=== PATIENT | female | born 1970 | race Caucasian/White ===

== ENCOUNTER → 2016-05-11 | Outpatient (CLI) | payer MEDICARE ==
[~2016-05-11] MED LIST: /DULO30CA OR; /FENT25PA TD; /ONDA4TA; /OXYC15TA OR; /PREG100CA PO; ACET500C; ALEVE; ALPR0.5T7 PO; AMBI10TA OR; ARTHROTEC OR; ATIV1TAB2; ATIV1TAB2 OR; BACL10TA2 OR; BACL10TA2 PO; CLIN1CAP5 PO; COLA100C PO; CYMB60CA3 PO; DARV100T; ESTR2TAB; ESTR2TAB OR; ESTR2TAB4 PO; FENT12PA TOP; IBUP400T OR; IBUP600T; INDE1CAP5 PO; INDO50CA2; KLON1TAB PO; LIDO5DIS EX; LYRI75CA; MINI1CAP PO; NAPR500T81 OR; NEUR400C OR; NYQUIL PO; OPAN10TA16 PO; OPAN5TAB3 PO; OXYC30TA84 PO; OXYC60TA8 PO; OXYCODONE IR PO; PERC5TAB8; PERC5TAB8 OR; PERC5TAB8 PO; PERIACTIN PO; PRED10TA2; PREG50CA PO; PROM25SU5 PO; QUET1TAB8 PO; RANI1TAB6 PO; REME15TA PO; ROBITUSSIN PO; SENO8.6T5 OR; SOMA350T OR; SUDA30TA OR; TESS100C PO; TIZA4TAB; TOPI25TA2; TRAM50TA2 OR; TRAZ1TAB25 PO; TRAZADONE PO; VIST50CA PO; VOLT1GEL2 TD; ZANA4CAP PO; ZOFR8TAB PO; ZOLO100T OR; [UNRECOGNIZED DRUG - CODE] PO; pennsaid TOP
[2016-05-11 14:53] LABS: MEAN CORPUSCULAR HEMOGLOBIN 27.6 pg (27.0-33.0); MEAN CORPUSCULAR VOLUME 86.1 fl (80.0-96.0); RED CELL DISTRIBUTION WIDTH 13.8 % (11.5-14.5)
[2016-05-11 14:55] LABS: CONTROL LINE UCG INT CTR LINE PRESENT
[2016-05-11 15:31] LABS: ALBUMIN 3.5 GM/DL (3.2-5.2); ALBUMIN/GLOBULIN RATIO 0.78 (1.00-1.93); ALKALINE PHOSPHATASE 122 U/L (45-117); ALT/SGPT 25 U/L (12-78); ANION GAP 6 MEQ/L (8-16); AST/SGOT 19 U/L (15-37); BILIRUBIN,TOTAL 0.3 MG/DL (0.2-1.0); BLOOD UREA NITROGEN 11 MG/DL (7-18); CALCIUM LEVEL 9.5 MG/DL (8.5-10.1); CARBON DIOXIDE LEVEL 30 MEQ/L (21-32); CHLORIDE LEVEL 104 MEQ/L (98-107); CREATININE FOR GFR 0.72 MG/DL (0.55-1.02); GLOMERULAR FILTRATION RATE > 60.0 (>58); GLUCOSE, FASTING 107 MG/DL (70-105); POTASSIUM SERUM 4.2 MEQ/L (3.5-5.1); SODIUM LEVEL 140 MEQ/L (136-145)
[2016-05-12 14:26] LABS: HIV SCRN NEGATIVE (NEGATIVE); HIV SCRN1 NEGATIVE (NEGATIVE)
[2016-05-12 14:27] LABS: CONTROL LINE INT CTR LINE PRESENT
== END ==
LOC: M LAB 13:52
PROVIDERS: ATTEND Family Medicine
DX: F11.20 Opioid dependence, uncomplicated (principal)

== ENCOUNTER → 2016-05-15 | Outpatient (CLI) | payer OTHER, MEDICARE ==
--- NOTE | 2016-05-15 15:15 | REP ---
RIGHT FOREARM: AP and lateral views of the right forearm are performed. There appears to be an old healed fracture of the distal end of the radius. No acute fracture or dislocation is seen. I see no intrinsic osseous pathology. IMPRESSION: Old healed fracture distal radius. Signed by Josué Ramirez MD 05/15/2016 05:03 P
--- NOTE | 2016-05-15 15:17 | REP ---
RIGHT WRIST: Four views of the right wrist are performed. Mild deformity of the distal end of the radius is most consistent with an old healed fracture. There is irregularity at the articulating surface of the distal radius. I see no evidence of acute fracture or dislocation. IMPRESSION: Old healed fracture distal radius. No acute abnormality. Signed by Josué Ramirez MD 05/15/2016 05:03 P
--- NOTE | 2016-05-15 15:18 | REP ---
RIGHT HAND SERIES, FOUR VIEWS: There is no evidence of an acute fracture, dislocation or intrinsic bone disease. IMPRESSION: No fracture or dislocation. Signed by Josué Ramirez MD 05/15/2016 05:03 P
== END ==
LOC: M RAD 13:34
DX: M25.631 Stiffness of right wrist, not elsewhere classified (principal); M25.649 Stiffness of unspecified hand, not elsewhere classified; M06.9 Rheumatoid arthritis, unspecified

== ENCOUNTER → 2016-05-15 | Outpatient (CLI) | payer MEDICARE, OTHER ==
--- NOTE | 2016-05-15 12:00 | ECGEPIP ---
Stationary ECG Study [facility] Test Date: 2016-05-15 Pat Name: MYLES BLACKWELL Department: Room: - Gender: F Lmsw: : 1970 Requested By: Josué Coates Order Number: [id number] Reading MD: Sloane Johnson Measurements Intervals [place] Rate: 84 P: 51 VT: 98 QRS: 77 QRSD: 90 T: 38 QT: 356 QTc: 421 Interpretive Statements SINUS RHYTHM WITH SHORT VT INTERVAL T WAVE ABN IMPROVED MARKEDLY MILD SEPTAL T ABN PERSISTS C/W 07/28/13 Electronically Signed On 05-15-2016 11:59:50 EST by Sloane Johnson
== END ==
LOC: M EKG 10:56
PROVIDERS: ATTEND Family Medicine
DX: Z13.9 Encounter for screening, unspecified (principal); F11.20 Opioid dependence, uncomplicated

== ENCOUNTER 2017-03-04 23:31 | Emergency (ER) | payer MEDICARE | END 2017-03-05 01:56 | disposition home or self-care (01) | LOC: M ED 23:31 | DX: F43.20 Adjustment disorder, unspecified (principal); F11.10 Opioid abuse, uncomplicated; F41.9 Anxiety disorder, unspecified; F33.9 Major depressive disorder, recurrent, unspecified; G89.29 Other chronic pain; M54.9 Dorsalgia, unspecified; F17.210 Nicotine dependence, cigarettes, uncomplicated; F12.20 Cannabis dependence, uncomplicated | CPT/HCPCS: 99284 ==

== ENCOUNTER 2017-03-26 12:36 | Emergency (ER) | payer MEDICARE ==
[2017-03-26] MEDS ORDERED: ONDANSETRON 4MG/2ML VIAL (J2405) IV (14:15)
[2017-03-26 15:12] LABS: AMPHETAMINES LEVEL URINE NEGATIVE (NEGATIVE); BARBITURATES URINE NEGATIVE (NEGATIVE); BENZODIAZEPINES URINE POSITIVE (NEGATIVE); CANNABINOIDS URINE POSITIVE (NEGATIVE); COCAINE METABOLITE URINE NEGATIVE (NEGATIVE); METHADONE URINE NEGATIVE (NEGATIVE); OPIATES URINE POSITIVE (NEGATIVE); PHENCYCLIDINE URINE NEGATIVE (NEGATIVE)
[2017-03-26] MEDS: NS 500 ML IV ×2 (15:34→17:25)
[2017-03-26] MEDS: PROMETHAZINE INJ 25 MG/ML VIAL (J2550) IV (15:35)
[2017-03-26] MEDS: cloNIDine 0.1 MG TAB PO (15:35)
[2017-03-26 15:47] LABS: BASO # 0.1 10^3/uL (0.0-0.2); BASO % 0.4 % (0.0-1.0); EOS # 0.1 10^3/uL (0.0-0.50); EOS % 1.2 % (0.0-3.0); HEMATOCRIT 38.6 % (36.0-47.0); HEMOGLOBIN 12.4 g/dl (12.0-16.0); IMMATURE GRANULOCYTE # 0.1 10^3/uL (0-0); IMMATURE GRANULOCYTE % 0.5 % (0-0); LYMPH # 2.1 10^3/uL (1.5-4.5); LYMPH % 17.2 % (24.0-44.0); MEAN CORPUSCULAR HEMOGLOBIN 26.1 pg (27.0-33.0); MEAN CORPUSCULAR HGB CONC 32.1 g/dl (32.0-36.5); MEAN CORPUSCULAR VOLUME 81.3 fl (80.0-96.0); MONO # 0.9 10^3/uL (0.0-0.8); MONO % 7.5 % (0.0-5.0); NEUTROPHILS # 8.8 10^3/uL (1.8-7.7); NEUTROPHILS % 73.2 % (36.0-66.0); PLATELET COUNT, AUTOMATED 503 10^3/uL (150-450); RED BLOOD COUNT 4.75 10^6/uL (4.00-5.40); RED CELL DISTRIBUTION WIDTH 15.7 % (11.5-14.5)
[2017-03-26 16:06] LABS: CONTROL LINE HCG INT CTR LINE PRESENT; HCG, SERUM QUALITATIVE NEGATIVE (NEGATIVE)
[2017-03-26 16:10] LABS: ACETAMINOPHEN LEVEL < 2.0 UG/ML (10.0-30.0); ALBUMIN 2.9 GM/DL (3.2-5.2); ALBUMIN/GLOBULIN RATIO 0.62 (1.00-1.93); ALT/SGPT 63 U/L (12-78); ANION GAP 8 MEQ/L (8-16); AST/SGOT 48 U/L (7-37); BILIRUBIN,DIRECT < 0.1 MG/DL (0.0-0.2); BILIRUBIN,TOTAL 0.1 MG/DL (0.2-1.0); BLOOD UREA NITROGEN 9 MG/DL (7-18); CALCIUM LEVEL 8.8 MG/DL (8.5-10.1); CARBON DIOXIDE LEVEL 28 MEQ/L (21-32); CHLORIDE LEVEL 107 MEQ/L (98-107); CREATININE FOR GFR 0.75 MG/DL (0.55-1.02); ETHYL ALCOHOL (ETHANOL) 0.005 % (0.000-0.010); GLOMERULAR FILTRATION RATE > 60.0 (>58); GLUCOSE, FASTING 97 MG/DL (70-105); LIPASE 220 U/L (73-393); POTASSIUM SERUM 4.3 MEQ/L (3.5-5.1); SALICYLATE LEVEL 2.3 MG/DL (5.0-30.0); SODIUM LEVEL 143 MEQ/L (136-145); TOTAL PROTEIN 7.6 GM/DL (6.4-8.2); TROPONIN I < 0.02 NG/ML (< 0.10)
[2017-03-26 16:16] LABS: ALKALINE PHOSPHATASE 131 U/L (45-117); CPK CREATINE PHOSPHOKINASE 45 U/L (26-192); MB/CK RELATIVE INDEX 2.22 (< OR =4); THYROID STIMULATING HORMONE 0.353 uIU/ML (0.358-3.740)
[2017-03-26] MEDS: LORazepam 2 MG/ML VIAL (J2060) IV (17:25)
== END 2017-03-26 21:05 | disposition home or self-care (01) ==
LOC: M ED 12:36
DX: F11.23 Opioid dependence with withdrawal (principal); F41.9 Anxiety disorder, unspecified; F33.9 Major depressive disorder, recurrent, unspecified; F43.10 Post-traumatic stress disorder, unspecified; M79.7 Fibromyalgia; M06.9 Rheumatoid arthritis, unspecified; M51.9 Unspecified thoracic, thoracolumbar and lumbosacral intervertebral disc disorder; M48.00 Spinal stenosis, site unspecified; Z79.899 Other long term (current) drug therapy; Z88.0 Allergy status to penicillin; Z88.2 Allergy status to sulfonamides; Z88.5 Allergy status to narcotic agent; Z88.8 Allergy status to other drugs, medicaments and biological substances

== ENCOUNTER 2017-03-29 12:38 | Inpatient (IN) | payer MEDICARE, MEDICAID ==
[2017-03-29] MEDS: cloNIDine 0.1 MG TAB PO ×2 (13:30→13:36)
[2017-03-29 14:03] LABS: HEMOGLOBIN 13.2 g/dl (12.0-16.0); MEAN CORPUSCULAR HEMOGLOBIN 26.1 pg (27.0-33.0); MEAN CORPUSCULAR HGB CONC 32.2 g/dl (32.0-36.5); PLATELET COUNT, AUTOMATED 469 10^3/uL (150-450); RED BLOOD COUNT 5.06 10^6/uL (4.00-5.40); RED CELL DISTRIBUTION WIDTH 16.4 % (11.5-14.5)
[2017-03-29 14:30] LABS: AMPHETAMINES LEVEL URINE NEGATIVE (NEGATIVE); BARBITURATES URINE NEGATIVE (NEGATIVE); BENZODIAZEPINES URINE NEGATIVE (NEGATIVE); CANNABINOIDS URINE POSITIVE (NEGATIVE); COCAINE METABOLITE URINE NEGATIVE (NEGATIVE); METHADONE URINE NEGATIVE (NEGATIVE); OPIATES URINE POSITIVE (NEGATIVE); PHENCYCLIDINE URINE NEGATIVE (NEGATIVE)
[2017-03-29] MEDS: ONDANSETRON 4 MG ORAL DISINTEGRATING TAB (S0181) PO (14:31)
[2017-03-29 14:41] LABS: ACETAMINOPHEN LEVEL < 2.0 UG/ML (10.0-30.0); ALBUMIN 3.4 GM/DL (3.2-5.2); ALBUMIN/GLOBULIN RATIO 0.68 (1.00-1.93); ALKALINE PHOSPHATASE 127 U/L (45-117); ALT/SGPT 56 U/L (12-78); ANION GAP 4 MEQ/L (8-16); AST/SGOT 34 U/L (7-37); BILIRUBIN,DIRECT < 0.1 MG/DL (0.0-0.2); BILIRUBIN,TOTAL 0.2 MG/DL (0.2-1.0); BLOOD UREA NITROGEN 9 MG/DL (7-18); CALCIUM LEVEL 9.3 MG/DL (8.5-10.1); CARBON DIOXIDE LEVEL 30 MEQ/L (21-32); CHLORIDE LEVEL 108 MEQ/L (98-107); CREATININE FOR GFR 0.76 MG/DL (0.55-1.02); ETHYL ALCOHOL (ETHANOL) < 0.003 % (0.000-0.010); GLOMERULAR FILTRATION RATE > 60.0 (>58); GLUCOSE, FASTING 89 MG/DL (70-100); POTASSIUM SERUM 4.3 MEQ/L (3.5-5.1); SALICYLATE LEVEL 2.3 MG/DL (5.0-30.0); SODIUM LEVEL 142 MEQ/L (136-145); TOTAL PROTEIN 8.4 GM/DL (6.4-8.2)
[2017-03-29] MEDS ORDERED: MOM 30ML SUSPENSION UDC PO (16:00)
[2017-03-29] MEDS: traZODone 50 MG TAB PO (21:42)
[2017-03-30] MEDS: MAALOX 30 ML SUSP *UDC PO (07:30)
[2017-03-30] MEDS: hydrOXYzine 50 MG TAB PO ×2 (12:57→20:02)
[2017-03-30] MEDS: ARIPiprazole 10 MG TAB PO ×3 (12:59→20:03)
[2017-03-30] MEDS: GABAPENTIN 300 MG CAP PO ×2 (13:15→20:02)
[2017-03-30] MEDS: OMEPRAZOLE 20 MG CAP PO (13:15)
[2017-03-30] MEDS: LORATADINE 10 MG TAB PO (13:15)
[2017-03-30] MEDS: cloNIDine 0.1 MG TAB PO (13:19)
[2017-03-30] MEDS: SUCRALFATE 1 GM TAB PO ×2 (16:49→20:02)
[2017-03-30] MEDS: ACETAMINOPHEN TAB 650MG DOSE (2X325MG) PO (16:49)
[2017-03-30] MEDS: traZODone 50 MG TAB PO (20:03)
[2017-03-30] MEDS: QUEtiapine FUMARATE 100 MG TAB PO (20:03)
[2017-03-30 22:14] LABS: CONTROL LINE HCG INT CTR LINE PRESENT; HCG, SERUM QUALITATIVE NEGATIVE (NEGATIVE)
[2017-03-31] MEDS: ACETAMINOPHEN TAB 650MG DOSE (2X325MG) PO ×3 (06:52→22:04)
[2017-03-31] MEDS: hydrOXYzine 50 MG TAB PO ×2 (06:52→15:57)
[2017-03-31] MEDS: ARIPiprazole 10 MG TAB PO ×2 (08:13→20:13)
[2017-03-31] MEDS: SUCRALFATE 1 GM TAB PO ×4 (08:13→20:14)
[2017-03-31] MEDS: GABAPENTIN 300 MG CAP PO ×2 (08:14→20:14)
[2017-03-31] MEDS: LORATADINE 10 MG TAB PO (08:14)
[2017-03-31] MEDS: OMEPRAZOLE 20 MG CAP PO (08:14)
[2017-03-31 10:34] LABS: HEMATOCRIT 42.7 % (36.0-47.0); HEMOGLOBIN 13.7 g/dl (12.0-16.0); MEAN CORPUSCULAR HEMOGLOBIN 25.8 pg (27.0-33.0); MEAN CORPUSCULAR HGB CONC 32.1 g/dl (32.0-36.5); MEAN CORPUSCULAR VOLUME 80.6 fl (80.0-96.0); PLATELET COUNT, AUTOMATED 468 10^3/uL (150-450); RED CELL DISTRIBUTION WIDTH 16.2 % (11.5-14.5); WHITE BLOOD COUNT 12.4 10^3/uL (4.0-10.0)
[2017-03-31] MEDS: NICOTINE 21MG/24HR 1 EA TRANSDERMAL TD (11:51)
[2017-03-31 12:12] LABS: VITAMIN B12 LEVEL 410 PG/ML (247-911)
[2017-03-31 12:13] LABS: FOLATE 15.3 NG/ML (>5.4)
[2017-03-31 12:15] LABS: HEPATITIS B SURFACE ANTIBODY NEGATIVE (POSITIVE)
[2017-03-31 12:39] LABS: HIV 1&2 SCREEN CENTAUR NEGATIVE (NEGATIVE)
[2017-03-31] MEDS: cloNIDine 0.1 MG TAB PO (13:40)
[2017-03-31 14:07] LABS: HEPATITIS C VIRUS ABY INDEX 8.2 INDEX (<0.8)
[2017-03-31 14:56] LABS: HEPATITIS B SURFACE ANTIGEN NEGATIVE (NEGATIVE)
[2017-03-31] MEDS: traZODone 50 MG TAB PO (20:13)
[2017-03-31] MEDS: QUEtiapine FUMARATE 50 MG TAB PO (20:14)
[2017-03-31] MEDS: hydrOXYzine 25 MG TAB PO (22:04)
[2017-04-01] MEDS: ACETAMINOPHEN TAB 650MG DOSE (2X325MG) PO ×3 (04:15→18:02)
[2017-04-01] MEDS: hydrOXYzine 25 MG TAB PO ×3 (04:16→18:02)
[2017-04-01] MEDS: SUCRALFATE 1 GM TAB PO ×4 (08:15→20:39)
[2017-04-01] MEDS: LORATADINE 10 MG TAB PO (08:15)
[2017-04-01] MEDS: QUEtiapine FUMARATE 50 MG TAB PO ×2 (08:16→20:42)
[2017-04-01] MEDS: GABAPENTIN 300 MG CAP PO ×2 (08:16→20:42)
[2017-04-01] MEDS: ARIPiprazole 10 MG TAB PO (08:16)
[2017-04-01] MEDS: OMEPRAZOLE 20 MG CAP PO (08:16)
[2017-04-01] MEDS: NICOTINE 21MG/24HR 1 EA TRANSDERMAL TD (08:19)
[2017-04-01] MEDS: cloNIDine 0.1 MG TAB PO (11:27)
[2017-04-01] MEDS: NALTREXONE 50 MG TAB PO (12:45)
[2017-04-01] MEDS: VITAMIN D 50,000 UNITS CAPSULE (ERGOCALCIFEROL 1.25MG) PO (18:02)
[2017-04-02] MEDS: hydrOXYzine 25 MG TAB PO (04:36)
[2017-04-02] MEDS: ACETAMINOPHEN TAB 650MG DOSE (2X325MG) PO (04:37)
[2017-04-02] MEDS: SUCRALFATE 1 GM TAB PO ×2 (06:18→07:46)
[2017-04-02] MEDS: QUEtiapine FUMARATE 50 MG TAB PO (07:10)
[2017-04-02] MEDS: OMEPRAZOLE 20 MG CAP PO (07:46)
[2017-04-02] MEDS: LORATADINE 10 MG TAB PO (07:46)
[2017-04-02] MEDS: NALTREXONE 50 MG TAB PO (07:46)
[2017-04-02] MEDS: GABAPENTIN 300 MG CAP PO (07:46)
[2017-04-02] MEDS: NICOTINE 21MG/24HR 1 EA TRANSDERMAL TD (07:49)
[2017-04-02] MEDS: cloNIDine 0.1 MG TAB PO (08:12)
[2017-04-03 00:10] LABS: HCV RNA NAA QUALITATIVE Positive (Negative)
[2017-04-04 08:06] LABS: ALPHA 2-MACROGLOBULIN 222 mg/dL (110-276); ALT 38 IU/L (0-40); APOLIPOPROTEIN A-1 160 mg/dL (116-209); FIBROSIS SCORE 0.08 (0.00-0.21); GGT 40 IU/L (0-60); HAPTOGLOBIN 211 mg/dL (34-200); HEPATITIS B CORE ANTIBODY IGG Negative (Negative); HEPATITIS C QUANTITATION 19240 IU/mL (.); HEPATITIS C VIRUS GENOTYPE 3 (.); NECROINFLAM SCORE 0.15 (0.00-0.17); NECROINFLAMM GRADE A0-No activity (.); TOTAL BILIRUBIN 0.2 mg/dL (0.0-1.2)
== END 2017-04-02 08:20 | DRG 885 ==
LOC: M ED 12:38 → M ED INP 15:51 → M PSY 16:55
DX: F33.2 Major depressive disorder, recurrent severe without psychotic features (principal); R45.851 Suicidal ideations; Z91.5 Personal history of self-harm; Z91.14 Patient's other noncompliance with medication regimen; F43.10 Post-traumatic stress disorder, unspecified; F60.3 Borderline personality disorder; F19.10 Other psychoactive substance abuse, uncomplicated; Z90.49 Acquired absence of other specified parts of digestive tract; Z90.710 Acquired absence of both cervix and uterus; F17.210 Nicotine dependence, cigarettes, uncomplicated; Z98.1 Arthrodesis status; R94.31 Abnormal electrocardiogram [ECG] [EKG]; M54.5 Low back pain; B19.20 Unspecified viral hepatitis C without hepatic coma; M25.511 Pain in right shoulder; M25.571 Pain in right ankle and joints of right foot; R20.2 Paresthesia of skin; Z88.0 Allergy status to penicillin; Z88.2 Allergy status to sulfonamides; Z88.5 Allergy status to narcotic agent; Z88.8 Allergy status to other drugs, medicaments and biological substances; Z79.899 Other long term (current) drug therapy

== ENCOUNTER 2017-04-28 09:23 | Emergency (ER) | payer MEDICARE, MEDICAID ==
[2017-04-28] MEDS: hydrOXYzine 25 MG TAB PO (12:37)
[2017-04-28 12:42] LABS: HEMATOCRIT 38.4 % (36.0-47.0); HEMOGLOBIN 12.5 g/dl (12.0-16.0); MEAN CORPUSCULAR HEMOGLOBIN 26.4 pg (27.0-33.0); MEAN CORPUSCULAR HGB CONC 32.6 g/dl (32.0-36.5); MEAN CORPUSCULAR VOLUME 81.2 fl (80.0-96.0); PLATELET COUNT, AUTOMATED 399 10^3/uL (150-450); RED BLOOD COUNT 4.73 10^6/uL (4.00-5.40); WHITE BLOOD COUNT 8.7 10^3/uL (4.0-10.0)
[2017-04-28 13:11] LABS: AMPHETAMINES LEVEL URINE NEGATIVE (NEGATIVE); BARBITURATES URINE NEGATIVE (NEGATIVE); BENZODIAZEPINES URINE NEGATIVE (NEGATIVE); CANNABINOIDS URINE NEGATIVE (NEGATIVE); COCAINE METABOLITE URINE NEGATIVE (NEGATIVE); METHADONE URINE NEGATIVE (NEGATIVE); OPIATES URINE NEGATIVE (NEGATIVE); PHENCYCLIDINE URINE NEGATIVE (NEGATIVE)
[2017-04-28 13:16] LABS: ALBUMIN/GLOBULIN RATIO 0.63 (1.00-1.93); ALKALINE PHOSPHATASE 145 U/L (45-117); ALT/SGPT 33 U/L (12-78); ANION GAP 7 MEQ/L (8-16); AST/SGOT 21 U/L (7-37); BILIRUBIN,DIRECT < 0.1 MG/DL (0.0-0.2); BILIRUBIN,TOTAL 0.2 MG/DL (0.2-1.0); BLOOD UREA NITROGEN 10 MG/DL (7-18); CALCIUM LEVEL 8.7 MG/DL (8.5-10.1); CARBON DIOXIDE LEVEL 28 MEQ/L (21-32); CHLORIDE LEVEL 105 MEQ/L (98-107); CREATININE FOR GFR 0.68 MG/DL (0.55-1.30); ETHYL ALCOHOL (ETHANOL) < 0.003 % (0.000-0.010); GLOMERULAR FILTRATION RATE > 60.0 (>58); GLUCOSE, FASTING 89 MG/DL (70-100); SALICYLATE LEVEL < 1.7 MG/DL (5.0-30.0); SODIUM LEVEL 140 MEQ/L (136-145); THYROID STIMULATING HORMONE 0.717 uIU/ML (0.358-3.740); TOTAL PROTEIN 7.8 GM/DL (6.4-8.2)
[2017-04-28 13:17] LABS: ACETAMINOPHEN LEVEL < 2.0 UG/ML (10.0-30.0)
== END 2017-04-28 13:41 | disposition home or self-care (01) ==
LOC: M ED 09:23
DX: F41.9 Anxiety disorder, unspecified (principal); F10.10 Alcohol abuse, uncomplicated; Z79.899 Other long term (current) drug therapy; Z88.0 Allergy status to penicillin; Z88.2 Allergy status to sulfonamides; Z88.5 Allergy status to narcotic agent; Z88.8 Allergy status to other drugs, medicaments and biological substances; F17.210 Nicotine dependence, cigarettes, uncomplicated
CPT/HCPCS: G0480

== ENCOUNTER → 2017-07-27 | Outpatient (CLI) | payer MEDICARE, MEDICAID ==
[2017-07-27 16:53] LABS: HEMATOCRIT 35.8 % (36.0-47.0); HEMOGLOBIN 11.7 g/dl (12.0-15.5); MEAN CORPUSCULAR HEMOGLOBIN 27.5 pg (27.0-33.0); MEAN CORPUSCULAR HGB CONC 32.7 g/dl (32.0-36.5); PLATELET COUNT, AUTOMATED 391 10^3/uL (150-450); RED BLOOD COUNT 4.26 10^6/uL (4.00-5.40); RED CELL DISTRIBUTION WIDTH 15.9 % (11.5-14.5); WHITE BLOOD COUNT 13.9 10^3/uL (4.0-10.0)
[2017-07-27 16:54] LABS: ALBUMIN 3.3 GM/DL (3.2-5.2); ALBUMIN/GLOBULIN RATIO 0.69 (1.00-1.93); ALKALINE PHOSPHATASE 184 U/L (45-117); ALT/SGPT 142 U/L (12-78); ANION GAP 7 MEQ/L (8-16); AST/SGOT 102 U/L (7-37); BILIRUBIN,TOTAL 0.3 MG/DL (0.2-1.0); BLOOD UREA NITROGEN 9 MG/DL (7-18); CALCIUM LEVEL 8.9 MG/DL (8.5-10.1); CARBON DIOXIDE LEVEL 28 MEQ/L (21-32); CHLORIDE LEVEL 103 MEQ/L (98-107); CREATININE FOR GFR 0.85 MG/DL (0.55-1.30); GLOMERULAR FILTRATION RATE > 60.0 (>58); GLUCOSE, FASTING 165 MG/DL (70-100); POTASSIUM SERUM 3.8 MEQ/L (3.5-5.1); SODIUM LEVEL 138 MEQ/L (136-145); TOTAL PROTEIN 8.1 GM/DL (6.4-8.2)
[2017-07-27 17:53] LABS: CHLAMYDIA DNA AMPLIFICATION NEGATIVE (NEGATIVE); GC DNA AMPLIFICATION NEGATIVE (NEGATIVE)
[2017-07-28 09:47] LABS: HEPATITIS B SURFACE ANTIGEN NEGATIVE (NEGATIVE)
[2017-07-28 10:11] LABS: HIV 1&2 SCREEN CENTAUR NEGATIVE (NEGATIVE)
[2017-07-28 10:26] LABS: HEPATITIS C VIRUS ABY INDEX 8.9 INDEX (<0.8)
[2017-07-31 15:09] LABS: HCV RNA NAA QUALITATIVE Positive (Negative)
== END ==
LOC: M LAB 15:46
DX: F11.20 Opioid dependence, uncomplicated (principal); R94.31 Abnormal electrocardiogram [ECG] [EKG]; Z79.899 Other long term (current) drug therapy
CPT/HCPCS: 93005

== ENCOUNTER 2018-03-31 13:17 | Emergency (ER) | payer MEDICAID ==
[~2018-03-31] VITALS: Ht 144.8 cm; Wt 40.9 kg
[~2018-03-31 13:17] MED LIST changes: +ABIL30TA4 PO; +ARIP15TAB PO; +ATIV1TAB7 PO; +CLAR10CA3 PO; +CLIN150C14 PO; -CLIN1CAP5 PO; +CLONI1TA PO; -COLA100C PO; +COLA100C5 PO; +DICL1GEL3 TD; +ESTRADIOL PO; +FLUTISP; +HYDR-3363 PO; -INDE1CAP5 PO; +INDE60CA4 PO; +METH10CO PO; +METH10TA2 PO; +MIRT1TAB PO; +NALT50TA4 PO; +NEUR300C PO; +NICO21PAT TD; +PRED10TA2 PO; +PRIL20CA9 PO; +PROM50TA4 PO; +QUET5TAB PO; +SUCR1TA PO; +TRAZODONE PO; +VENL75TA2 PO; +ZANT300T9 PO
[2018-03-31] MEDS ORDERED: PRED20TA PO (15:51)
[2018-03-31 15:59] VITALS: BP 107/61
== END 2018-03-31 16:00 | disposition home or self-care (01) ==
LOC: M ED 13:17
DX: M02.361 Reiter's disease, right knee (principal); R56.9 Unspecified convulsions; F33.9 Major depressive disorder, recurrent, unspecified; F41.9 Anxiety disorder, unspecified; M81.8 Other osteoporosis without current pathological fracture; Z79.899 Other long term (current) drug therapy; Z79.891 Long term (current) use of opiate analgesic; Z88.0 Allergy status to penicillin; Z88.2 Allergy status to sulfonamides; Z88.5 Allergy status to narcotic agent; Z88.8 Allergy status to other drugs, medicaments and biological substances; F17.210 Nicotine dependence, cigarettes, uncomplicated

== ENCOUNTER 2018-05-18 11:26 | Emergency (ER) | payer MEDICAID ==
[~2018-05-18] VITALS: Ht 144.8 cm; Wt 44.1 kg
[~2018-05-18 11:26] MED LIST changes: +PRED20TA PO
[2018-05-18 11:27] VITALS: BP 121/87
[2018-05-18] MEDS ORDERED: ESTR1TAB PO (11:44)
== END 2018-05-18 13:00 | disposition left against medical advice (07) ==
LOC: M ED 11:26
DX: Z53.21 Procedure and treatment not carried out due to patient leaving prior to being seen by health care provider (principal)

== ENCOUNTER 2018-05-23 08:02 | Inpatient (IN) | payer MEDICAID ==
[~2018-05-23] VITALS: Ht 147.3 cm; Wt 45.0 kg
[~2018-05-23 08:02] MED LIST changes: +ESTR1TAB PO
--- NOTE | 2018-05-23 08:59 | REP ---
RIGHT ANKLE, FOUR VIEWS: Four views of the right ankle are performed. No acute fracture or dislocation is seen. There is lateral soft tissue swelling. There is a joint effusion present. IMPRESSION: No acute fracture or dislocation. Joint effusion. Electronically Signed by Josué Ramirez MD 05/25/2018 09:50 A
[2018-05-23] MEDS ORDERED: METHADONE 10 MG TAB (S0109) PO ONE (09:15)
[2018-05-23 09:52] LABS: BASO # 0.1 10^3/uL (0.0-0.2); BASO % 0.4 % (0.0-1.0); EOS # 0.3 10^3/uL (0.0-0.50); HEMATOCRIT 42.9 % (36.0-47.0); HEMOGLOBIN 13.8 g/dl (12.0-15.5); LYMPH # 2.5 10^3/uL (1.5-4.5); LYMPH % 20.1 % (24.0-44.0); MEAN CORPUSCULAR HEMOGLOBIN 26.3 pg (27.0-33.0); MEAN CORPUSCULAR HGB CONC 32.2 g/dl (32.0-36.5); MEAN CORPUSCULAR VOLUME 81.9 fl (80.0-96.0); MONO # 1.3 10^3/uL (0.0-0.8); MONO % 10.5 % (0.0-5.0); NEUTROPHILS # 8.2 10^3/uL (1.8-7.7); NEUTROPHILS % 66.8 % (36.0-66.0); PLATELET COUNT, AUTOMATED 536 10^3/uL (150-450); RED BLOOD COUNT 5.24 10^6/uL (4.00-5.40); WHITE BLOOD COUNT 12.3 10^3/uL (4.0-10.0)
[2018-05-23] MEDS ORDERED: KETOROLAC 30 MG/ML VIAL (J1885) IV ONE (10:30)
[2018-05-23 10:36] LABS: ACETAMINOPHEN LEVEL < 2.0 UG/ML (10.0-30.0); ALBUMIN 2.6 GM/DL (3.2-5.2); ALT/SGPT 31 U/L (12-78); BILIRUBIN,DIRECT < 0.1 MG/DL (0.0-0.2); BILIRUBIN,TOTAL 0.5 MG/DL (0.2-1.0); BLOOD UREA NITROGEN 5 MG/DL (7-18); CARBON DIOXIDE LEVEL 28 MEQ/L (21-32); CHLORIDE LEVEL 101 MEQ/L (98-107); CREATININE FOR GFR 0.63 MG/DL (0.55-1.30); ETHYL ALCOHOL (ETHANOL) < 0.003 % (0.000-0.010); GLOMERULAR FILTRATION RATE > 60.0 (>58); GLUCOSE, FASTING 89 MG/DL (70-100); POTASSIUM SERUM 4.9 MEQ/L (3.5-5.1); SALICYLATE LEVEL 2.2 MG/DL (5.0-30.0); SODIUM LEVEL 136 MEQ/L (136-145); THYROID STIMULATING HORMONE 0.176 uIU/ML (0.358-3.740); TOTAL PROTEIN 7.5 GM/DL (6.4-8.2)
[2018-05-23] MEDS ORDERED: DOXYCYCLINE HYCLATE 100 MG TAB PO ONE (11:00)
[2018-05-23 12:18] LABS: AMPHETAMINES LEVEL URINE NEGATIVE (NEGATIVE); BARBITURATES URINE NEGATIVE (NEGATIVE); BENZODIAZEPINES URINE NEGATIVE (NEGATIVE); CANNABINOIDS URINE POSITIVE (NEGATIVE); COCAINE METABOLITE URINE NEGATIVE (NEGATIVE); METHADONE URINE POSITIVE (NEGATIVE); OPIATES URINE NEGATIVE (NEGATIVE); PHENCYCLIDINE URINE NEGATIVE (NEGATIVE)
[2018-05-23] MEDS ORDERED: MOM 30ML SUSPENSION UDC PO PRN (15:15)
[2018-05-23] MEDS ORDERED: traZODone 50 MG TAB PO PRN (15:15)
[2018-05-23] MEDS ORDERED: ACETAMINOPHEN TAB 650MG DOSE (2X325MG) PO PRN (15:15)
[2018-05-23] MEDS ORDERED: MAALOX 30 ML SUSP *UDC PO PRN (15:15)
[2018-05-23] MEDS ORDERED: MIRT30TA3 PO (15:20)
[2018-05-23] MEDS ORDERED: ALEV220T26 PO (15:22)
[2018-05-23 17:02] VITALS: BP 159/95
[2018-05-23] MEDS: MIRTAZAPINE 15 MG TAB PO SCH (21:00)
[2018-05-23] MEDS: ESTRADIOL 1 MG TAB PO SCH (21:00)
[2018-05-23] MEDS: OMEPRAZOLE 20 MG CAP PO SCH (21:00)
[2018-05-24 06:54] VITALS: BP 140/87
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
[2018-05-24] MEDS: OMEPRAZOLE 20 MG CAP PO SCH ×2 (09:27→22:07)
[2018-05-24 09:42] LABS: HEMATOCRIT 43.8 % (36.0-47.0); HEMOGLOBIN 14.2 g/dl (12.0-15.5); MEAN CORPUSCULAR HEMOGLOBIN 26.8 pg (27.0-33.0); MEAN CORPUSCULAR HGB CONC 32.4 g/dl (32.0-36.5); MEAN CORPUSCULAR VOLUME 82.6 fl (80.0-96.0); PLATELET COUNT, AUTOMATED 530 10^3/uL (150-450); WHITE BLOOD COUNT 9.2 10^3/uL (4.0-10.0)
[2018-05-24] MEDS: DOXYCYCLINE HYCLATE 100 MG TAB PO SCH ×2 (10:00→22:07)
[2018-05-24 10:14] LABS: ALBUMIN 2.4 GM/DL (3.2-5.2); ALT/SGPT 21 U/L (12-78); BILIRUBIN,TOTAL 0.3 MG/DL (0.2-1.0); BLOOD UREA NITROGEN 6 MG/DL (7-18); CALCIUM LEVEL 8.6 MG/DL (8.5-10.1); CARBON DIOXIDE LEVEL 28 MEQ/L (21-32); CHLORIDE LEVEL 103 MEQ/L (98-107); CREATININE FOR GFR 0.65 MG/DL (0.55-1.30); GLOMERULAR FILTRATION RATE > 60.0 (>58); GLUCOSE, FASTING 153 MG/DL (70-100); SODIUM LEVEL 136 MEQ/L (136-145); TOTAL PROTEIN 6.7 GM/DL (6.4-8.2)
[2018-05-24] MEDS: METHADONE 10 MG TAB (S0109) PO SCH (11:34)
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
[2018-05-24 12:14] VITALS: BP 124/74
--- NOTE | 2018-05-24 16:39 | REP ---
Bilateral upper extremity duplex Doppler venous ultrasound. Real time compression and duplex Doppler evaluation of the bilateral upper extremity deep venous system is performed. The bilateral subclavian, jugular, axillary, brachial, basilic and cephalic veins are fully compressible where accessible with transducer pressure, and demonstrate no intraluminal thrombus and normal venous waveforms. There is no evidence of deep venous thrombosis. Impression: No evidence of deep venous thrombosis of the bilateral upper extremity deep vein system. Electronically Signed by Josué Ramirez MD 05/24/2018 04:31 P
--- NOTE | 2018-05-24 16:57 | REP ---
BILATERAL HAND AND WRIST ULTRASOUND: Bilateral hand and wrist ultrasound performed at the site of injections. The study is performed to evaluate for possible associated abscess. At the multiple injection sites in both hands and wrists, there is no evidence of fluid collection or abscess. IMPRESSION: No evidence of abscess sonographically in the bilateral hands and wrists at the multiple injection sites. Electronically Signed by Josué Ramirez MD 05/25/2018 01:23 P
[2018-05-24 18:22] VITALS: BP 136/85
[2018-05-24] MEDS: ESTRADIOL 1 MG TAB PO SCH (22:07)
[2018-05-24] MEDS: MIRTAZAPINE 15 MG TAB PO SCH (22:07)
[2018-05-25 06:37] VITALS: BP 145/91
[2018-05-25] MEDS: DOXYCYCLINE HYCLATE 100 MG TAB PO SCH ×2 (08:34→22:10)
[2018-05-25] MEDS: OMEPRAZOLE 20 MG CAP PO SCH ×2 (08:34→22:09)
[2018-05-25] MEDS: METHADONE 10 MG TAB (S0109) PO SCH (08:34)
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
[2018-05-25] MEDS: IBUPROFEN 800 MG TAB PO PRN (17:57)
[2018-05-25 18:05] VITALS: BP 133/87
[2018-05-25] MEDS: MIRTAZAPINE 15 MG TAB PO SCH (22:10)
[2018-05-25] MEDS: ESTRADIOL 1 MG TAB PO SCH (22:10)
[2018-05-26 06:12] VITALS: BP 125/85
[2018-05-26] MEDS: OMEPRAZOLE 20 MG CAP PO SCH ×2 (10:00→21:41)
[2018-05-26] MEDS: DOXYCYCLINE HYCLATE 100 MG TAB PO SCH ×2 (10:00→21:40)
[2018-05-26] MEDS: METHADONE 10 MG TAB (S0109) PO SCH (10:01)
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
[2018-05-26] MEDS: IBUPROFEN 800 MG TAB PO PRN (16:01)
[2018-05-26 18:00] VITALS: BP 128/82
[2018-05-26] MEDS: MIRTAZAPINE 15 MG TAB PO SCH (21:40)
[2018-05-26] MEDS: ESTRADIOL 1 MG TAB PO SCH (21:41)
[2018-05-27] MEDS: IBUPROFEN 800 MG TAB PO PRN ×2 (04:26→17:56)
[2018-05-27 06:52] VITALS: BP 117/66
[2018-05-27] MEDS: DOXYCYCLINE HYCLATE 100 MG TAB PO SCH ×2 (09:12→22:30)
[2018-05-27] MEDS: METHADONE 10 MG TAB (S0109) PO SCH (09:12)
[2018-05-27] MEDS: OMEPRAZOLE 20 MG CAP PO SCH ×2 (09:12→22:29)
[2018-05-27] MEDS: NAPROXEN 250 MG TAB PO PRN (09:12)
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
[2018-05-27 18:06] VITALS: BP 108/64
[2018-05-27] MEDS: ESTRADIOL 1 MG TAB PO SCH (22:29)
[2018-05-27] MEDS: MIRTAZAPINE 15 MG TAB PO SCH (22:30)
[2018-05-28 06:17] VITALS: BP 118/60
[2018-05-28] MEDS: METHADONE 10 MG TAB (S0109) PO SCH (08:59)
[2018-05-28] MEDS: OMEPRAZOLE 20 MG CAP PO SCH ×2 (09:00→21:45)
[2018-05-28] MEDS: DOXYCYCLINE HYCLATE 100 MG TAB PO SCH ×2 (09:00→21:45)
[2018-05-28 10:14] LABS: FREE THYROXINE INDEX 2.7 % (1.3-4.8); THYROID STIMULATING HORMONE 0.724 uIU/ML (0.358-3.740); THYROXINE (T4) 8.4 UG/DL (4.5-12.0)
[2018-05-28] MEDS: IBUPROFEN 800 MG TAB PO PRN ×2 (12:05→21:45)
[2018-05-28 18:00] VITALS: BP 111/68
[2018-05-28] MEDS: MIRTAZAPINE 15 MG TAB PO SCH (21:44)
[2018-05-28] MEDS: ESTRADIOL 1 MG TAB PO SCH (21:45)
[2018-05-29 06:35] VITALS: BP 106/64
[2018-05-29] MEDS: OMEPRAZOLE 20 MG CAP PO SCH ×2 (09:15→21:04)
[2018-05-29] MEDS: DOXYCYCLINE HYCLATE 100 MG TAB PO SCH ×2 (09:15→21:04)
[2018-05-29] MEDS: METHADONE 10 MG TAB (S0109) PO SCH (09:15)
[2018-05-29] MEDS: NAPROXEN 250 MG TAB PO PRN (09:57)
[2018-05-29] MEDS: IBUPROFEN 800 MG TAB PO PRN (15:42)
[2018-05-29 18:00] VITALS: BP 111/65
[2018-05-29] MEDS: ESTRADIOL 1 MG TAB PO SCH (21:04)
[2018-05-29] MEDS: MIRTAZAPINE 15 MG TAB PO SCH (21:04)
[2018-05-30 06:00] VITALS: BP 118/80
[2018-05-30] MEDS ORDERED: MIRT15TA3 PO (08:46)
[2018-05-30] MEDS ORDERED: DOXY100T PO (08:46)
[2018-05-30] MEDS ORDERED: EFFE75CA2 PO (08:46)
[2018-05-30] MEDS: OMEPRAZOLE 20 MG CAP PO SCH (09:17)
[2018-05-30] MEDS: DOXYCYCLINE HYCLATE 100 MG TAB PO SCH (09:18)
[2018-05-30] MEDS: METHADONE 10 MG TAB (S0109) PO SCH (09:19)
[2018-05-30] MEDS: NAPROXEN 250 MG TAB PO PRN (09:19)
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
== END 2018-05-30 11:45 | disposition home or self-care (01) | DRG 751 ==
LOC: M ED 08:02 → EDBD 08:02 → M ED INP 15:13 → M PSY 16:53
PROVIDERS: ADMIT Psychiatry & Neurology Psychiatry; ATTEND Psychiatry & Neurology Psychiatry
DX: F33.2 Major depressive disorder, recurrent severe without psychotic features (principal); B18.2 Chronic viral hepatitis C; F19.94 Other psychoactive substance use, unspecified with psychoactive substance-induced mood disorder; F60.3 Borderline personality disorder; F43.10 Post-traumatic stress disorder, unspecified; F11.90 Opioid use, unspecified, uncomplicated; Z88.0 Allergy status to penicillin; Z88.2 Allergy status to sulfonamides; Z88.8 Allergy status to other drugs, medicaments and biological substances; Z79.899 Other long term (current) drug therapy; M79.7 Fibromyalgia; M54.2 Cervicalgia; M54.5 Low back pain; F41.9 Anxiety disorder, unspecified; K21.9 Gastro-esophageal reflux disease without esophagitis; F17.200 Nicotine dependence, unspecified, uncomplicated; D72.829 Elevated white blood cell count, unspecified

== ENCOUNTER 2018-07-05 11:54 | Emergency (ER) | payer MEDICAID ==
[~2018-07-05 11:54] MED LIST changes: -/DULO30CA OR; -/FENT25PA TD; -/ONDA4TA; -/OXYC15TA OR; -/PREG100CA PO; +ALEV220T26 PO; -ARIP15TAB PO; +ARIP1TAB10 PO; +CYMB1CAP5 OR; +DOXY100T PO; +EFFE75CA2 PO; +FENT12DI12 TOP; -FENT12PA TOP; +FENT1DIS14 TD; +LYRI100C PO; +MIRT15TA3 PO; +MIRT30TA3 PO; +ONDA-1; +ONDA-227 PO; +OXYC1TAB32 OR; -ZOFR8TAB PO
[2018-07-05 11:55] VITALS: BP 124/83
== END 2018-07-05 14:06 | disposition left against medical advice (07) ==
LOC: M ED 11:54
DX: Z53.21 Procedure and treatment not carried out due to patient leaving prior to being seen by health care provider (principal)

== ENCOUNTER 2018-07-08 10:42 | Emergency (ER) | payer MEDICAID, SELFPAY ==
[~2018-07-08] VITALS: Ht 147.3 cm; Wt 46.1 kg
[2018-07-08] MEDS ORDERED: NS 1,000 ML IV ONE (11:00)
[2018-07-08 11:13] LABS: ABG BASE EXCESS 6.1 (-2.0-2.0); ABG HCO3 31.1 MEQ/L (22.0-26.0); ABG O2 SATURATION 99.3 % (95.0-99.0); ABG PARTIAL PRESSURE CO2 46.7 mmHg (35.0-45.0); ABG PARTIAL PRESSURE O2 148.1 mmHg (75.0-100.0); ABG TOTAL CO2 32.5 MEQ/L (22.0-29.0); ABG pH (ARTERIAL) 7.441 UNITS (7.350-7.450)
[2018-07-08 11:37] LABS: BASO % 0.3 % (0.0-1.0); EOS # 0.3 10^3/uL (0.0-0.50); EOS % 2.6 % (0.0-3.0); HEMATOCRIT 37.4 % (36.0-47.0); LYMPH # 2.5 10^3/uL (1.5-4.5); LYMPH % 25.6 % (24.0-44.0); MEAN CORPUSCULAR HEMOGLOBIN 26.7 pg (27.0-33.0); MEAN CORPUSCULAR HGB CONC 32.1 g/dl (32.0-36.5); MEAN CORPUSCULAR VOLUME 83.1 fl (80.0-96.0); MONO # 0.9 10^3/uL (0.0-0.8); MONO % 9.2 % (0.0-5.0); NEUTROPHILS # 6.1 10^3/uL (1.8-7.7); NEUTROPHILS % 61.8 % (36.0-66.0); PLATELET COUNT, AUTOMATED 515 10^3/uL (150-450); WHITE BLOOD COUNT 9.8 10^3/uL (4.0-10.0)
--- NOTE | 2018-07-08 11:44 | REP ---
Chest one-view HISTORY: Altered mental status Comparison: 03/26/2017 The lungs are clear. The heart is normal in size. The pulmonary vasculature is normal in appearance. Impression: No acute disease. Electronically Signed by Reilly Almaraz MD 07/08/2018 11:36 A
--- NOTE | 2018-07-08 11:58 | REP ---
CT Head without contrast HISTORY: Altered mental status COMPARISON: 01/13/2017 There is no intraparenchymal hemorrhage, acute infarct, mass or midline shift. The ventricular system is normal in appearance. There is no extra cerebral collection. There is no fracture. The visualized sinuses are clear. IMPRESSION: There is no intracranial lesion. Electronically Signed by Reilly Almaraz MD 07/08/2018 11:48 A
[2018-07-08 12:33] LABS: ACETAMINOPHEN LEVEL < 2.0 UG/ML (10.0-30.0); ALBUMIN 2.9 GM/DL (3.2-5.2); ALT/SGPT 25 U/L (12-78); BILIRUBIN,DIRECT < 0.1 MG/DL (0.0-0.2); BILIRUBIN,TOTAL 0.4 MG/DL (0.2-1.0); BLOOD UREA NITROGEN 5 MG/DL (7-18); CALCIUM LEVEL 8.3 MG/DL (8.5-10.1); CARBON DIOXIDE LEVEL 32 MEQ/L (21-32); CHLORIDE LEVEL 100 MEQ/L (98-107); CK-MB VALUE MASS < 1.0 NG/ML (<3.6); CPK CREATINE PHOSPHOKINASE 78 U/L (26-192); ETHYL ALCOHOL (ETHANOL) < 0.003 % (0.000-0.010); GLOMERULAR FILTRATION RATE > 60.0 (>58); GLUCOSE, FASTING 73 MG/DL (70-100); MB/CK RELATIVE INDEX 1.28 (< OR =4); SALICYLATE LEVEL 3.3 MG/DL (5.0-30.0); SODIUM LEVEL 137 MEQ/L (136-145); THYROID STIMULATING HORMONE 0.969 uIU/ML (0.358-3.740); TOTAL PROTEIN 7.7 GM/DL (6.4-8.2); TROPONIN I < 0.02 NG/ML (< 0.10)
[2018-07-08 13:14] LABS: AMPHETAMINES LEVEL URINE POSITIVE (NEGATIVE); BARBITURATES URINE NEGATIVE (NEGATIVE); BENZODIAZEPINES URINE NEGATIVE (NEGATIVE); CANNABINOIDS URINE POSITIVE (NEGATIVE); COCAINE METABOLITE URINE NEGATIVE (NEGATIVE); METHADONE URINE POSITIVE (NEGATIVE); OPIATES URINE NEGATIVE (NEGATIVE); PHENCYCLIDINE URINE NEGATIVE (NEGATIVE)
[2018-07-08 13:46] VITALS: BP 105/68
--- NOTE | 2018-07-08 19:40 | ECGEPIP ---
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
[2018-07-22] MEDS ORDERED: PYRI1TAB5 PO (14:20)
[2018-07-22] MEDS ORDERED: CIPR-249 PO (14:20)
== END 2018-07-08 14:53 | disposition left against medical advice (07) ==
LOC: EDBD 10:42 → M ED 10:42
DX: F13.10 Sedative, hypnotic or anxiolytic abuse, uncomplicated (principal); R94.31 Abnormal electrocardiogram [ECG] [EKG]; Z79.899 Other long term (current) drug therapy; Z88.0 Allergy status to penicillin; Z88.2 Allergy status to sulfonamides; Z88.5 Allergy status to narcotic agent; Z88.8 Allergy status to other drugs, medicaments and biological substances
CPT/HCPCS: 36600; 70450; 71045; 80048; 80076; 80307; 82140; 82550; 82553; 82803; 83605; 84443; 85025; 87040; 93005; 93041; 99285; G0480

== ENCOUNTER 2019-03-10 11:44 | Emergency (ER) | payer OTHER, MEDICAID ==
[~2019-03-10] VITALS: Ht 147.3 cm; Wt 59.3 kg
[~2019-03-10 11:44] MED LIST changes: +CIPR-249 PO; +PYRI1TAB5 PO; +RANI-397 PO; -RANI1TAB6 PO
[2019-03-10] MEDS ORDERED: cefTRIAXone SOD 2 GM VIAL (J0696 PER 250MG) IM ONE (15:30)
[2019-03-10] MEDS ORDERED: LIDOCAINE 1% SDV 5 ML VIAL DILUENT ONE (15:30)
--- NOTE | 2019-03-10 15:43 | ECGEPIP ---
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
[2019-03-10 16:32] VITALS: BP 129/82
== END 2019-03-10 16:25 | disposition home or self-care (01) ==
LOC: M ED 11:44
DX: L03.113 Cellulitis of right upper limb (principal); L03.114 Cellulitis of left upper limb; R00.0 Tachycardia, unspecified; F19.10 Other psychoactive substance abuse, uncomplicated; F17.200 Nicotine dependence, unspecified, uncomplicated; Z88.0 Allergy status to penicillin; Z88.2 Allergy status to sulfonamides; Z88.5 Allergy status to narcotic agent; Z88.1 Allergy status to other antibiotic agents
CPT/HCPCS: 93005; 96372; 99284; J0696

== ENCOUNTER 2019-03-16 13:07 | Emergency (ER) | payer OTHER, SELFPAY ==
[~2019-03-16] VITALS: Ht 147.3 cm; Wt 61.8 kg
[2019-03-16] MEDS ORDERED: aleve (13:15)
--- NOTE | 2019-03-16 13:51 | REP ---
Chest x-ray: Single view. History: Chest pain. Comparison chest x-ray: July 08, 2018. Findings: The patient is status post lower cervical discectomy and fusion plating. Clips are noted right upper quadrant. EKG electrodes are seen. Lungs are well inflated and clear. Heart is not enlarged. Pulmonary vasculature is not increased. No significant bony abnormality is appreciated. There is an old healed rib fracture on the left. Impression: No acute disease. Status post cervical spine fusion and cholecystectomy. Electronically Signed by Edison Biggs MD 03/16/2019 01:43 P
[2019-03-16 14:41] LABS: BASO % 0.4 % (0.0-1.0); EOS # 0.2 10^3/uL (0.0-0.5); EOS % 2.5 % (0.0-3.0); HEMATOCRIT 40.4 % (36.0-47.0); HEMOGLOBIN 12.5 g/dl (12.0-15.5); LYMPH # 2.2 10^3/uL (1.5-5.0); LYMPH % 31.9 % (24.0-44.0); MEAN CORPUSCULAR HEMOGLOBIN 26.4 pg (27.0-33.0); MEAN CORPUSCULAR HGB CONC 30.9 g/dl (32.0-36.5); MEAN CORPUSCULAR VOLUME 85.4 fl (80.0-96.0); MONO # 0.5 10^3/uL (0.0-0.8); MONO % 7.8 % (0.0-5.0); NEUTROPHILS # 3.9 10^3/uL (1.5-8.5); NEUTROPHILS % 56.8 % (36.0-66.0); PLATELET COUNT, AUTOMATED 295 10^3/uL (150-450); RED BLOOD COUNT 4.73 10^6/uL (4.00-5.40); WHITE BLOOD COUNT 6.8 10^3/uL (4.0-10.0)
[2019-03-16 14:59] LABS: BLOOD UREA NITROGEN 12 MG/DL (7-18); CALCIUM LEVEL 8.9 MG/DL (8.5-10.1); CARBON DIOXIDE LEVEL 25 MEQ/L (21-32); CHLORIDE LEVEL 110 MEQ/L (98-107); CK-MB VALUE MASS < 1.0 NG/ML (<3.6); CPK CREATINE PHOSPHOKINASE 46 U/L (26-192); CREATININE FOR GFR 0.65 MG/DL (0.55-1.30); GLOMERULAR FILTRATION RATE > 60.0 (>58); GLUCOSE, FASTING 83 MG/DL (70-100); MB/CK RELATIVE INDEX 2.17 (< OR =4); POTASSIUM SERUM 4.1 MEQ/L (3.5-5.1); SODIUM LEVEL 141 MEQ/L (136-145); TROPONIN I < 0.02 NG/ML (< 0.10)
[2019-03-16] MEDS ORDERED: ISOVUE-370 76% 100ML VIAL (Q9967) As Ordered ONE (15:21)
--- NOTE | 2019-03-16 16:29 | REP ---
CT pulmonary angiogram: With IV contrast. History: Chest pain and shortness of breath. Rule out pulmonary embolus. Comparison studies: No comparison chest CT. Comparison is made with today's chest x-ray. Contrast dose: 75 mL of Isovue [address] technique: Helical scanning is acquired and overlapping 1.5 mm and contiguous 3 mm axial images are reformatted. In addition, maximum intensity projection and multiplanar re-formation images are generated in sagittal and coronal imaging projections. CT pulmonary angiographic findings: There is good opacification of the pulmonary arterial tree. Axial and multiplanar reformation images show no evidence of vessel cutoff or filling defect to suggest pulmonary embolus. Incidental note is made of an aberrant right subclavian artery. No other aortic arch abnormality is seen. There is no evidence of dissection or aneurysm. No pleural or pericardial effusion is seen. No hilar or mediastinal mass or adenopathy is observed. There are several bilateral axillary lymph nodes. These are symmetric and near the upper range of normal in size. They have a preserved fatty hilar architecture. No abnormalities noted in either breast soft tissues. No adrenal lesion is seen. There are clips in the gallbladder fossa. The visualized upper abdominal structures are otherwise unremarkable. The lung brownlee are clear. There is a 3 mm nodule in the right upper lobe. No other pulmonary nodule is appreciated. No bony destructive lesion is seen. The patient is status post anterior cervical discectomy and fusion plating. Impression: No CT evidence of pulmonary embolus. Aberrant right subclavian artery. 3 mm noncalcified pulmonary nodule right upper lobe. If the patient is considered at risk for pulmonary malignancy, a follow-up chest CT study could be performed in 6-12 months. Status post cholecystectomy and cervical spine fusion. Otherwise negative. Electronically Signed by Edison Biggs MD 03/16/2019 06:32 P
[2019-03-16 17:54] VITALS: BP 144/98
--- NOTE | 2019-03-16 19:26 | ECGEPIP ---
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
--- NOTE | 2019-03-17 07:47 | ED PDOC ---
Post-Departure Follow-Up marbella lewis faxed formal report of cta chest for fu Mk Ng MD Mar 17, 2019 07:47
== END 2019-03-16 18:00 | disposition home or self-care (01) ==
LOC: M ED 13:07
DX: R07.9 Chest pain, unspecified (principal); R91.1 Solitary pulmonary nodule; Z86.19 Personal history of other infectious and parasitic diseases; F41.9 Anxiety disorder, unspecified; F32.9 Major depressive disorder, single episode, unspecified; G89.29 Other chronic pain; Z86.59 Personal history of other mental and behavioral disorders; F17.200 Nicotine dependence, unspecified, uncomplicated; Z88.0 Allergy status to penicillin; Z88.2 Allergy status to sulfonamides; Z88.5 Allergy status to narcotic agent; Z88.8 Allergy status to other drugs, medicaments and biological substances
CPT/HCPCS: 36415; 71045; 71275; 80048; 82550; 82553; 84484; 85025; 93005; 93041; 94760; 99285; Q9967

== ENCOUNTER 2019-03-30 11:41 | Inpatient (IN) | payer OTHER, MEDICAID ==
[~2019-03-30] VITALS: Ht 147.3 cm; Wt 61.5 kg
[~2019-03-30 11:41] MED LIST changes: +QUET100T2 PO; -QUET1TAB8 PO; +aleve
[2019-03-30 12:34] LABS: HEMATOCRIT 32.6 % (36.0-47.0); HEMOGLOBIN 10.6 g/dl (12.0-15.5); MEAN CORPUSCULAR HEMOGLOBIN 26.1 pg (27.0-33.0); MEAN CORPUSCULAR HGB CONC 32.5 g/dl (32.0-36.5); MEAN CORPUSCULAR VOLUME 80.3 fl (80.0-96.0); PLATELET COUNT, AUTOMATED 147 10^3/uL (150-450); RED BLOOD COUNT 4.06 10^6/uL (4.00-5.40); WHITE BLOOD COUNT 7.1 10^3/uL (4.0-10.0)
[2019-03-30] MEDS ORDERED: ACETAMINOPHEN TAB 650MG DOSE (2X325MG) PO ONE (12:45)
[2019-03-30 13:00] LABS: ALBUMIN 2.2 GM/DL (3.2-5.2); ALT/SGPT 21 U/L (12-78); BILIRUBIN,TOTAL 0.6 MG/DL (0.2-1.0); BLOOD UREA NITROGEN 21 MG/DL (7-18); CALCIUM LEVEL 8.3 MG/DL (8.5-10.1); CARBON DIOXIDE LEVEL 26 MEQ/L (21-32); CHLORIDE LEVEL 91 MEQ/L (98-107); CREATININE FOR GFR 0.95 MG/DL (0.55-1.30); GLOMERULAR FILTRATION RATE > 60.0 (>58); GLUCOSE, FASTING 94 MG/DL (70-100); SODIUM LEVEL 126 MEQ/L (136-145); TOTAL PROTEIN 7.1 GM/DL (6.4-8.2)
[2019-03-30 13:05] LABS: INFLUENZA A AMPLIFICATION NEGATIVE (NEGATIVE); INFLUENZA B AMPLIFICATION NEGATIVE (NEGATIVE)
[2019-03-30 13:13] LABS: ATYPICAL LYMPH 2 % (0-5); EOSINOPHILS 1 % (0-3); LYMPHOCYTES 17 % (16-44); MONOCYTES 7 % (0-5); NEUTROPHILS 69 % (28-66)
[2019-03-30 13:14] LABS: ANISOCYTOSIS 1+; MICROCYTOSIS 1+; PLATELET ESTIMATE DECREASED (NORMAL)
--- NOTE | 2019-03-30 13:54 | REP ---
PA and lateral chest: Comparison is the portable chest day 03/16/2019. The lung brownlee are clear. The cardiac size is normal. The sami, mediastinum, and skeletal structures are unremarkable. There is a cervical spine stabilization plate, unchanged. Impression: Negative PA and lateral chest. There is no interval change Electronically Signed by Josué Aponte MD 03/30/2019 01:46 P
[2019-03-30 14:16] LABS: AMPHETAMINES LEVEL URINE POSITIVE (NEGATIVE); BARBITURATES URINE NEGATIVE (NEGATIVE); BENZODIAZEPINES URINE NEGATIVE (NEGATIVE); CANNABINOIDS URINE POSITIVE (NEGATIVE); COCAINE METABOLITE URINE NEGATIVE (NEGATIVE); METHADONE URINE NEGATIVE (NEGATIVE); OPIATES URINE POSITIVE (NEGATIVE); PHENCYCLIDINE URINE NEGATIVE (NEGATIVE)
[2019-03-30] MEDS ORDERED: NS 1,000 ML IV ONE (14:45)
--- NOTE | 2019-03-30 16:34 | REP ---
CT of the abdomen pelvis without IV and oral contrast for fever, hematuria and positive pole obstructive pyelonephritis. Comparison is 12/07/2011. The visualized lung brownlee are unremarkable except for dependent atelectasis. The unenhanced hepatic parenchyma, pancreas and spleen are unchanged and unremarkable. There are surgical clips in the gallbladder fossa. The adrenals are unremarkable. There is a right renal 2.7 cm cortical cyst. This has increased in size. There is no hydronephrosis. There are no renal calculi. There is no perinephric stranding. The study is insensitive for renal masses in the absence of IV contrast. The abdominal aorta and retroperitoneal area are unremarkable. There is no bowel distension. The mesentery is unremarkable. There has been interval surgical fusion of the lumbosacral spine. There are surgical clips compatible with hysterectomy. The bladder is unremarkable. There is no free fluid or adenopathy. The pelvic bowel loops are unremarkable. The appendix is unremarkable. Impression: There are no renal calculi. There is no hydronephrosis. There is no perinephric stranding. There is a right renal cyst. The kidneys are otherwise unremarkable. There is a cholecystectomy and hysterectomy. The bladder is unremarkable. The appendix is unremarkable. There is no ascites. No bowel distension. There has been interim surgical fusion of the lumbosacral spine. Electronically Signed by Josué Aponte MD 03/30/2019 04:26 P
[2019-03-30] MEDS ORDERED: NS 1,000 ML IV SCH (18:00)
[2019-03-30] MEDS ORDERED: LevoFLOXacin IV 500 MG in IV 1 EA IV SCH (18:00)
[2019-03-30] MEDS ORDERED: VANCOMYCIN HCL 500 MG in IV FLUID PLACE HOLDER 1 EA IV SCH (18:15)
[2019-03-30] MEDS ORDERED: SODIUM CHLORIDE 0.9% 1000ML IV SCH (18:30)
[2019-03-30 18:34] LABS: MAGNESIUM LEVEL 1.9 MG/DL (1.8-2.4)
[2019-03-30 18:35] LABS: ABG BASE EXCESS 4.3 (-2.0-2.0); ABG HCO3 27.8 MEQ/L (22.0-26.0); ABG O2 SATURATION 96.8 % (95.0-99.0); ABG PARTIAL PRESSURE CO2 37.6 mmHg (35.0-45.0); ABG PARTIAL PRESSURE O2 85.9 mmHg (75.0-100.0); ABG STANDARD HCO3 28.3 MEQ/L (22.0-26.0); ABG pH (ARTERIAL) 7.487 UNITS (7.350-7.450)
--- NOTE | 2019-03-30 19:13 | HPEPDOC ---
[facility] Medical History & Physical Date of Admission Mar 30, 2019 Date of Service: Mar 30, 2019 Primary Care Physician: A Attending Physician: LUCI ALARCON MD History and Physical CHIEF COMPLAINT: Patient is a 48-year-old female, with a past medical history significant for multiple admissions for depression, polysubstance abuse, and IV drug use, hepatitis C. Presents today by ambulance after her friend noticed her slurring her words, and not acting like herself. Patient is unable to answer questions appropriately. Mother who is with patient in the room, admits the patient uses Chantel, methamphetamine, and other street drugs. Patient was able to state that the last time she used methamphetamine was a few days ago. She was unable to answer any other questions, she will simply moans stating that her body hurts. In the ED, patient was found to be febrile, hypertensive, tachycardic, tachypnea, and saturating at 94% on room air. Hospitalist team was called for admission. PMHx: Chronic neck pain Chronic back pain Degenerative disc disease Spinal stenosis Chronic pain. [facility] Pain Mgmt in the past Fibromyalgia Depression Anxiety Substance use. [facility]. IVDU H/O SI/SA, cutting as teen. Chronic hepatitis C PSHX: Cervical surgery with titanium plate Lumbar surgery with fusion and rods [place] 2014 Inguinal hernia repair Cholecystectomy 3 Hysterectomy EGD 09/17 [facility]. Colonoscopy 01/18 [facility]. SOCHX: Resides in: [facility] Marital Status: Kids: 3 Employment: Unemployed. Previously an [employer] 198903/09/1993. Tobacco use: One pack per day ETOH: Denies Illicit Drugs: H/O Heroin, benzodiazepines. Recently injecting Chantel, using marijuana. meth IV Drug Use: Chatnel. H/O Heroin Tattoos done unprofessionally: Denies FAMHX: Mother: Alive, well Father: Alive, alcohol use, spinal stenosis Siblings: One brother alcohol use Children: Alive, well ROS: Unable to obtain review of systems due to patient's obtunded state PE: GEN: 48-year-old female, appears older than stated age, alert, however, answers questions inappropriately, moaning in pain. HEENT: Pinpoint pupils, nonreactive to light. . No nystagmus appreciated. Sclera are nonicteric. CHEST: Regular rate and rhythm, +S1, +S2 LUNGS: Clear to auscultation bilaterally. No wheezes, rales, or rhonchi. Breathing appears symmetric and easy. Patient is speaking in full sentences. No accessory muscle use. ABD: Reports tenderness with palpation, bowel sounds present. EXT: Multiple track perez, no edema, redness and radiation, multiple wounds SKIN: Multiple track perez, multiple skin excoriations, no oral lesions, visible scratches perez, Imaging: Chest XRay: Negative PA and lateral chest. There is no interval change CT abdomen and pelvis without contrast Impression: There are no renal calculi. There is no hydronephrosis. There is no perinephric stranding. There is a right renal cyst. The kidneys are otherwise u nremarkable. There is a cholecystectomy and hysterectomy. The bladder is unremarkable. The appendix is unremarkable. There is no ascites. No bowel distension. There has been interim surgical fusion of the lumbosacral spine. Assessment: Patient is a 48-year-old female, with a past medical history significant for multiple admissions for depression, polysubstance abuse including Chantel, methamphetamine, and other street drugs, and IV drug use, hepatitis C. Presents today by ambulance after her friend noticed her slurring her words, and not acting like herself. Unable to answer questions appropriately, simply moans in pain PLAN Metabolic encephalopathy secondary to sepsis secondary to IV drug use, polysubstance abuse, psychiatric disease, possible infection, secondary to possible infective endocarditis -Sepsis. Patient had an elevated body temperature of 100 and 0.4, heart rate of 150, 4 bands, platelets of 147, and a lactic acid of 2.9. There is also suspected source of infection from her IV drug use. : found to be febrile, hypertensive, tachycardic, tachypnea, and saturating at 9 4% -No leukocytosis - Emperic coverage with Levaquin and vancomycin - Echocardiogram ordered: Rule out infective endocarditis -Blood cultures pending -MRSA screen -Respiratory panel ordered -CT head pending - Supplemental oxygen -Telemetry Lactic acidosis -IV antibiotics as above -She received IV fluid bolus in the ED -Repeat lactic acid was within normal range Tobacco abuse -Nicotine patch Polysubstance abuse -Tested positive for opiates, amphetamine and cannabis -Will monitor for withdrawal -Seizure precaution -Positive for opiates, amphetamines, cannabinoids Hyponatremic -Severely hyponatremic with a sodium of 126. Patient received a bolus of fluid in the ED. Will continue NS at 100 ml/h and monitor BMP q 2 hours to prevent rapid over correction -Nephrology consult UTI -Levaquin -cultures ordered Hypokalemia -Oral Replacement and IV replacement Bilateral wrist pain -Bilateral wrist x-rays Multiple psych problems -Will consult psych once patient is stable DVT Teds, Heparin Disposition. Once patient's medical stable. Patient can discharge to inpatient psych unit. Vital Signs Vital Signs Date Time Temp Pulse Resp B/P (MAP) Pulse Ox O2 Delivery O2 Flow Rate FiO2 03/30/19 18:30 127 119/73 (88) 100 Nasal Cannula 2.0 03/30/19 17:52 20 03/30/19 17:00 100.2 Laboratory Data Labs 24H Laboratory Tests 2 03/30/19 12:22: Nucleated Red Blood Cells % (auto) 0.0, Neutrophils 69H, Band Neutrophils 4, Lymphocytes (Manual) 17, Monocytes (Manual) 7H, Eosinophils (Manual) 1, Atypical Lymphocytes 2, Anisocytosis 1+, Microcytosis 1+, Platelet Estimate DECREASED, Anion Gap 9, Glomerular Filtration Rate > 60.0, Lactic Acid Level 2.8*H, Calcium Level 8.3L, Magnesium Level 1.9, Total Bilirubin 0.6, Aspartate Amino Transf (AST/SGOT) 49H, Alanine Aminotransferase (ALT/SGPT) 21, Alkaline Phosphatase 200H, Total Protein 7.1, Albumin 2.2L, Albumin/Globulin Ratio 0.45L, Influenza Type A (RT-PCR) NEGATIVE, Influenza Type B (RT-PCR) NEGATIVE 03/30/19 12:25: 03/30/19 13:35: Urine Color YELLOW, Urine Appearance HAZY, Urine pH 6.0, Urine Specific [place] 1.014, Urine Protein 2+H, Urine Glucose (UA) NEGATIVE, Urine Ketones NEGATIVE, Urine Blood 3+H, Urine Nitrite NEGATIVE, Urine Bilirubin NEGATIVE, Urine Urobilinogen 2.0H, Urine Leukocyte Esterase NEGATIVE, Urine WBC (Auto) 5H, Urine RBC (Auto) 106H, Urine Hyaline Casts (Auto) 0, Urine Bacteria (Auto) 2+H, Urine Squamous Epithelial Cells 0, Urine Amorphous Sediment SMALLH, Urine Sperm (Auto) , Urine Opiates Screen POSITIVEH, Urine Methadone Screen NEGATIVE, Urine Barbiturates Screen NEGATIVE, Urine Phencyclidine Screen NEGATIVE, Urine Amphetamines Screen POSITIVEH, Urine Benzodiazepines Screen NEGATIVE, Urine Cocaine Metabolite Screen NEGATIVE, Urine Cannabinoids Screen POSITIVEH 03/30/19 17:11: Lactic Acid Followup at 4 Hours 1.4 03/30/19 17:51: Blood Gas Bicarbonate Standard 28.3H, Arterial Blood pH 7.487H, Arterial Blood Partial Pressure CO2 37.6, Arterial Blood Partial Pressure O2 85.9, Arterial Blood Total CO2 29.0, Arterial Blood HCO3 27.8H, Arterial Blood Base Excess 4.3H, Arterial Blood Oxygen Saturation 96.8 03/30/19 18:22: CBC/BMP Laboratory Tests 03/30/19 12:22 Microbiology Microbiology 03/30/19 Blood Culture, Received Pending 03/30/19 Blood Culture, Received Pending Home Medications No Active Prescriptions or Reported Meds Allergies Coded Allergies: Penicillins (Verified Allergy, Intermediate, RASH, 07/08/18) Sulfa (Sulfonamide Antibiotics) (Verified Allergy, Intermediate, RASH, 07/08/18) trimethoprim (Verified Allergy, Intermediate, RASH, 07/08/18) tramadol (Verified Adverse Reaction, Intermediate, ITCHING, URINARY RETENTION, 07/08/18) JAVIER ORONA DO Mar 30, 2019 19:13
[2019-03-30] MEDS ORDERED: POTASSIUM CHLORIDE 10 MEQ SR TABLET PO ONE ×2 (19:15→23:00)
[2019-03-30] MEDS ORDERED: KCL 20MEQ in NS 1000ML 1,000 ML IV SCH (19:15)
--- NOTE | 2019-03-30 19:22 | REP ---
Head CT without contrast: History: Altered mental status. Comparison study: July 08, 2018 CT findings: Bone window settings demonstrate an intact bony calvarium. The patient is edentulous. There is no evidence of skull fracture or incidental bony calvarial lesion. The visualized paranasal sinuses appear clear. No intraorbital abnormality is seen. On soft tissue window setting images; the lateral, third, and fourth ventricles are normal in size and position. Ramirez-white differentiation pattern is normal above and below the tentorium. There are is no evidence of intracranial hemorrhage. No mass, edema, infarction, or midline shift is seen. No extra-axial fluid collection is appreciated. Impression: Negative noncontrast head CT. Electronically Signed by Edison Biggs MD 03/30/2019 07:14 P
[2019-03-30 20:30] LABS: BLOOD UREA NITROGEN 15 MG/DL (7-18); CALCIUM LEVEL 7.8 MG/DL (8.5-10.1); CARBON DIOXIDE LEVEL 27 MEQ/L (21-32); CHLORIDE LEVEL 98 MEQ/L (98-107); CREATININE FOR GFR 0.84 MG/DL (0.55-1.30); GLOMERULAR FILTRATION RATE > 60.0 (>58); GLUCOSE, FASTING 102 MG/DL (70-100); POTASSIUM SERUM 3.2 MEQ/L (3.5-5.1); SODIUM LEVEL 132 MEQ/L (136-145)
[2019-03-30 21:02] LABS: FREE THYROXINE INDEX 4.2 % (1.3-4.8); T UPTAKE 44 % (30-39); THYROID STIMULATING HORMONE 0.146 uIU/ML (0.358-3.740); THYROXINE (T4) 9.5 UG/DL (4.5-12.0)
[2019-03-30 21:32] LABS: CPK CREATINE PHOSPHOKINASE 43 U/L (26-192)
--- NOTE | 2019-03-30 22:08 | REPVR ---
PROCEDURE INFORMATION: Exam: CT Right Upper Extremity Without Contrast, Wrist Exam date and time: 03/30/2019 9:17 PM Age: 48 years old Clinical indication: Swelling; Wrist; Right; Additional info: Significant tender to touch with swelling septic joint? TECHNIQUE: Imaging protocol: CT of the Right upper extremity without contrast was performed. Exam focused on the wrist. Radiation optimization: All CT scans at this facility use at least one of these dose optimization techniques: automated exposure control; mA and/or kV adjustment per patient size (includes targeted exams where dose is matched to clinical indication); or iterative reconstruction. COMPARISON: CR Wrist, complete RIGHT 03/30/2019 6:51 PM FINDINGS: Bones/joints: Scattered erosive changes of the carpus and distal radius at the radiocarpal joint. There is prominent erosion of the distal ulna as well. There is narrowing and early spurring at multiple joints. No acute fractures. Soft tissues: There is some edema about the dorsal and medial aspect of the distal ulna which appears centered around the extensor carpi ulnaris and along the triquetrum there is fluid within the midcarpal space surrounding the various carpal bones. Trace fluid in some of the extensor tendons sheaths dorsally. IMPRESSION: 1. Evidence of tenosynovitis, particularly involving extensor carpi ulnaris and to a lesser degree some of the dorsal extensor tendon sheaths. There is fluid throughout the carpus with involvement of at least 2 compartments. There is diffuse arthritic erosive change and secondary mild degenerative changes of the carpus and distal radius and ulna. Findings are consistent with an inflammatory arthritis which may include septic arthritis, however, the extensive involvement is more suspicious for rheumatoid or rheumatoid variant. 2. No acute fracture. Electronically signed by: Leland Fernandez On 03/30/2019 22:07:54 PM
[2019-03-30] MEDS ORDERED: VANCOMYCIN HCL 1,000 MG, VIAL MATE ADAPTER 1 EACH in D5W 250 ML IV ONE (22:15)
[2019-03-30 22:23] LABS: BLOOD UREA NITROGEN 14 MG/DL (7-18); CALCIUM LEVEL 7.1 MG/DL (8.5-10.1); CARBON DIOXIDE LEVEL 25 MEQ/L (21-32); CHLORIDE LEVEL 97 MEQ/L (98-107); CREATININE FOR GFR 0.94 MG/DL (0.55-1.30); GLOMERULAR FILTRATION RATE > 60.0 (>58); GLUCOSE, FASTING 141 MG/DL (70-100); POTASSIUM SERUM 3.1 MEQ/L (3.5-5.1); SODIUM LEVEL 133 MEQ/L (136-145)
[2019-03-30 22:41] LABS: OSMOLALITY SERUM 269 MOSM/KG (275-295)
[2019-03-30 22:42] LABS: CORTISOL BASELINE 41.7 UG/DL (4.3-22.4)
[2019-03-30] MEDS: ACETAMINOPHEN TAB 650MG DOSE (2X325MG) PO PRN (22:44)
[2019-03-30] MEDS ORDERED: D5W 500 ML IV ONE (23:00)
[2019-03-30 23:01] VITALS: BP 103/62
[2019-03-30] MEDS ORDERED: INFLUENZA QUADRIVALENT PF VACCINE 0.5ML SYRINGE (90686) IM PRN (23:15)
[2019-03-30 23:28] VITALS: BP 99/59
[2019-03-30 23:46] LABS: OSMOLALITY URINE 293 MOSM/KG (500-800)
[2019-03-31] VITALS (16 sets, daily range): BP systolic 86–112; BP diastolic 55–68
[2019-03-31] LABS: SODIUM,RANDOM URINE 30 MEQ/L
[2019-03-31] MEDS: IBUPROFEN 600 MG TAB PO PRN ×3 (00:40→19:19)
--- NOTE | 2019-03-31 00:52 | REPVR ---
PROCEDURE INFORMATION: Exam: XR Chest, 1 View Exam date and time: 03/31/2019 12:40 AM Age: 48 years old Clinical indication: Device placement; Other: Central line placement TECHNIQUE: Imaging protocol: XR of the chest Views: 1 view. COMPARISON: CR Chest, 2 view PA, Lat 03/30/2019 1:14 PM FINDINGS: Tubes, catheters and devices: Interval placement of right internal jugular central line to the distal superior vena cava. Lungs: Unremarkable. No consolidation. Pleural space: Unremarkable. No pleural effusion. No pneumothorax. Heart/Mediastinum: Unremarkable. No cardiomegaly. Bones/joints: Status post anterior fusion in the lower cervical spine. IMPRESSION: 1. Interval placement of right internal jugular central line to the distal superior vena cava since 03/30/2019. No pneumothorax. 2. Otherwise stable chest. Electronically signed by: Leland Fernandez On 03/31/2019 00:52:20 AM
--- NOTE | 2019-03-31 01:31 | REP ---
Clinical: Pain. Technique: AP, lateral, bilateral oblique views of the right wrist. 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 Similar findings are identified involving the distal radius and ulna and the adjacent metacarpal bases. Subtle nondisplaced intra-articular fracture involving the distal radius and ulna cannot be excluded. Surrounding soft tissue swelling noted. Impression: Moderate to significant erosive and presumed arthritic degenerative changes. Findings are nonspecific and may be related to old injury as well as underlying neuropathy. Electronically Signed by Dung Taveras MD 03/31/2019 01:23 A
--- NOTE | 2019-03-31 01:34 | REP ---
Clinical: Pain. Technique: AP, lateral, bilateral oblique views of the left wrist. Findings: Moderate crisostomo carpal arthritic changes. Findings include crisostomo carpal erosive changes with scattered loss of cortical margins, underlying subchondral erosive/lytic changes, scattered early spurring and diffuse areas of joint space narrowing. Similar more subtle findings are identified involving the distal radius and ulna and small corticated density at the ulnar styloid may represent old injury. Surrounding soft tissue swelling noted. Impression: Moderate presumed arthritic degenerative changes. Electronically Signed by Dung Taveras MD 03/31/2019 01:25 A
[2019-03-31 02:31] LABS: BLOOD UREA NITROGEN 13 MG/DL (7-18); CALCIUM LEVEL 6.9 MG/DL (8.5-10.1); CARBON DIOXIDE LEVEL 28 MEQ/L (21-32); CHLORIDE LEVEL 93 MEQ/L (98-107); CREATININE FOR GFR 0.97 MG/DL (0.55-1.30); GLOMERULAR FILTRATION RATE > 60.0 (>58); GLUCOSE, FASTING 285 MG/DL (70-100); POTASSIUM SERUM 2.7 MEQ/L (3.5-5.1); SODIUM LEVEL 128 MEQ/L (136-145)
[2019-03-31 02:32] LABS: OSMOLALITY SERUM 274 MOSM/KG (275-295)
[2019-03-31] MEDS ORDERED: POTASSIUM CHLORIDE 10 MEQ SR TABLET PO ONE ×2 (02:45→03:45)
[2019-03-31 03:10] LABS: ERYTHROCYTE SEDIMENTATION RATE 60 mm/hr (0-20)
[2019-03-31] MEDS: KCL 20MEQ IN 100ML SWI (KRUN) 20 MEQ in IV 1 EA IV SCH ×4 (03:14→04:25)
[2019-03-31 03:54] LABS: BLOOD UREA NITROGEN 13 MG/DL (7-18); CALCIUM LEVEL 7.1 MG/DL (8.5-10.1); CARBON DIOXIDE LEVEL 27 MEQ/L (21-32); CHLORIDE LEVEL 98 MEQ/L (98-107); CREATININE FOR GFR 0.85 MG/DL (0.55-1.30); GLOMERULAR FILTRATION RATE > 60.0 (>58); GLUCOSE, FASTING 124 MG/DL (70-100); SODIUM LEVEL 134 MEQ/L (136-145)
[2019-03-31] MEDS ORDERED: POTASSIUM CHLORIDE INJ 40 MEQ in D5W 1,000 ML IV SCH (04:30)
[2019-03-31 05:52] LABS: HEMATOCRIT 28.2 % (36.0-47.0); HEMOGLOBIN 9.1 g/dl (12.0-15.5); MEAN CORPUSCULAR HEMOGLOBIN 25.9 pg (27.0-33.0); MEAN CORPUSCULAR HGB CONC 32.3 g/dl (32.0-36.5); MEAN CORPUSCULAR VOLUME 80.1 fl (80.0-96.0); PLATELET COUNT, AUTOMATED 126 10^3/uL (150-450); RED BLOOD COUNT 3.52 10^6/uL (4.00-5.40); WHITE BLOOD COUNT 8.1 10^3/uL (4.0-10.0)
--- NOTE | 2019-03-31 05:57 | ROOPDOC ---
[facility] Report Of Operation Report of Operation DATE OF PROCEDURE: 03/31/2019 PREPROCEDURE DIAGNOSES: Poor Peripheral Access POSTPROCEDURE DIAGNOSES: Poor Peripheral Access PROCEDURE: Right IJ central line placement Performed by: Dr. Shiela Pena Attending: Dr. Kathy Brice ANESTHESIA: Local ESTIMATED BLOOD LOSS: Approximately 0 mL. COMPLICATIONS: none PROCEDURE NOTE: Consent was obtained prior to the procedure. Indications, risks and benefits were explained to the patient. Procedure was performed at bedside in the ICU. DESCRIPTION OF PROCEDURE: The patient was placed in the supine position. The right chest region and neck was prepped with chlorhexidine scrub. The patient was draped in the typical sterile fashion using a full drape. Ultrasonography was employed at bedside. A sterile probe cover was placed over the ultrasound. The medial and lateral head of the sternocleidomastoid were identified, as was the carotid pulse. The internal jugular vein was identified using ultrasound. Anesthesia was achieved over the internal jugular vein on the right using a 1% lidocaine solution. Once anesthetized, an introducer needle was inserted into the internal jugular vein under direct ultrasound visualization. Venous blood was withdrawn, syringe was removed and a guidewire was advanced on to the intro ducer needle. The guidewire was visualized in the internal jugular vein by ultrasound. A small incision was made in the skin surface with a scalpel, and the introducer needle was exchanged for a dilator over the guidewire. After appropriate dilation was obtained, the dilator was exchanged over the wire for a central venous catheter. The wire was removed, and the catheter was sutured in place. A sterile bandage was placed over the catheter site. The patient tolerated the procedure well without any hemodynamic compromise. At the time of procedure completion, all ports were aspirated and flushed properly. Postprocedure x-ray was performed, which demonstrated adequate positioning of the central venous catheter in the right internal jugular vein. SHIELA PENA DO Mar 31, 2019 05:57
[2019-03-31 06:13] LABS: ERYTHROCYTE SEDIMENTATION RATE 68 mm/hr (0-20)
[2019-03-31 06:22] LABS: ANISOCYTOSIS 1+; ATYPICAL LYMPH 1 % (0-5); BASOPHILS 1 % (0-1); EOSINOPHILS 1 % (0-3); LYMPHOCYTES 8 % (16-44); MONOCYTES 7 % (0-5); NEUTROPHILS 81 % (28-66)
[2019-03-31 06:23] LABS: PLATELET ESTIMATE DECREASED (NORMAL)
[2019-03-31 06:24] LABS: TOXIC VACUOLATION 1+
[2019-03-31 07:51] LABS: C REACTIVE PROTEIN QUANTITATIV 29.3 MG/DL (0.00-0.30); MAGNESIUM LEVEL 2.3 MG/DL (1.8-2.4); PHOSPHORUS LEVEL 2.2 MG/DL (2.5-4.9); POTASSIUM SERUM 4.3 MEQ/L (3.5-5.1)
[2019-03-31] MEDS: VANCOMYCIN HCL 750 MG, VIAL MATE ADAPTER 1 EACH in D5W 250 ML IV SCH ×2 (07:54→15:57)
[2019-03-31] MEDS: HEPARIN SOD (PORCINE) 5000 UNITS/ML VIAL (J1644 PER 1000UNITS) SQ SCH ×2 (08:10→20:51)
[2019-03-31] MEDS: ACETAMINOPHEN TAB 650MG DOSE (2X325MG) PO PRN ×2 (08:15→15:58)
[2019-03-31 08:48] LABS: ALBUMIN 1.6 GM/DL (3.2-5.2); ALT/SGPT 15 U/L (12-78); BILIRUBIN,TOTAL 0.6 MG/DL (0.2-1.0); BLOOD UREA NITROGEN 13 MG/DL (7-18); CALCIUM LEVEL 7.5 MG/DL (8.5-10.1); CARBON DIOXIDE LEVEL 26 MEQ/L (21-32); CHLORIDE LEVEL 102 MEQ/L (98-107); CREATININE FOR GFR 0.74 MG/DL (0.55-1.30); GLOMERULAR FILTRATION RATE > 60.0 (>58); GLUCOSE, FASTING 118 MG/DL (70-100); POTASSIUM SERUM 4.3 MEQ/L (3.5-5.1); SODIUM LEVEL 136 MEQ/L (136-145); TOTAL PROTEIN 5.5 GM/DL (6.4-8.2)
[2019-03-31 09:57] LABS: CORTISOL AM 22.6 UG/DL (4.3-22.4)
--- NOTE | 2019-03-31 11:07 | IPNPDOC ---
Text Note Date of Service The patient was seen on 03/31/19. NOTE Subjective: Overnight, central line was placed for IV access. This morning is more responsive, however, appears to be lethargic. Patient stated that prior to admission. She was shooting up Chantel, meth and heroin and accidentally used more than her usual amount of drugs. Overnight patient was afebrile. However, she remained tachycardic, her blood pressure was stable. Denied chest pain is morning, denied breathing difficulties. PE: GEN: 48-year-old female, appears older than stated age, drowsy but arousable HEENT: Atraumatic, multiple skin excoriations around the face, supple CHEST: Regular rate and rhythm, +S1, +S2 LUNGS: Clear to auscultation bilaterally. No wheezes, rales, or rhonchi. Breathing appears symmetric and easy. ABD: Reports tenderness with palpation, bowel sounds present. EXT: Multiple track perez, no edema, redness and radiation, multiple wounds, no deformities SKIN: Multiple track perez, multiple skin excoriations, no oral lesions, visible scratches perez, Imaging: Chest XRay: Negative PA and lateral chest. There is no interval change CT abdomen and pelvis without contrast Impression: There are no renal calculi. There is no hydronephrosis. There is no perinephric stranding. There is a right renal cyst. The kidneys are otherwise unremarkable. There is a cholecystectomy and hysterectomy. The bladder is unremarkable. The appendix is unremarkable. There is no ascites. No bowel distension. There has been interim surgical fusion of the lumbosacral spine. Wrist Xray IMPRESSION: 1. Interval placement of right internal jugular central line to the distal superior vena cava since 03/30/2019. No pneumothorax. 2. Otherwise stable chest. CT of wrist -IMPRESSION: 1. Evidence of tenosynovitis, particularly involving extensor carpi ulnaris and to a lesser degree some of the dorsal extensor tendon sheaths. There is fluid throughout the carpus with involvement of at least 2 compartments. There is diffuse arthritic erosive change and secondary mild degenerative changes of the carpus and distal radius and ulna. Findings are consistent with an inflammatory arthritis which may include septic arthritis, however, the extensive involvement is more suspicious for rheumatoid or rheumatoid variant. 2. No acute fracture. Assessment: Patient is a 48-year-old female, with a past medical history significant for multiple admissions for depression, polysubstance abuse including Chantel, methamphetamine, and other street drugs, and IV drug use, hepatitis C. Presents today by ambulance after her friend noticed her slurring her words, and not acting like herself. Unable to answer questions appropriately, simply moans in pain PLAN Metabolic encephalopathy secondary to sepsis, secondary to IV drug use, polysubstance abuse, psychiatric disease, possible infection, secondary to possible infective endocarditis -Continues to be afebrile, not hypertensive, however, blood pressure stable, on 2 L of nasal cannula satting above 95%, -DC Levaquin. Continue vancomycin - Echocardiogram ordered: Rule out infective endocarditis -Blood cultures pending -MRSA screen -Respiratory panel ordered -CT head negatiive - Supplemental oxygen -Telemetry -MRSA Screen Positive Bacteremia - Initial blood culture was positive for gram-positive cocci clusters, repeat cultures pending -Patient's current vancomycin -Consult infectious disease -TTE: Rule out infective endocarditis -MRSA Screen Positive -Contact precaution UTI -Vancomycin -cultures ordered Hyponatremic -Severely hyponatremic on presentation, current NA is 136, -Nephrology consult -Currently receiving dextrose fluid, -Will monitor for slow correction Lactic acidosis -Resolved, status post fluid bolus, patient also antibiotics Tobacco abuse -Nicotine patch Polysubstance abuse -Tested positive for opiates, amphetamine and cannabis -Will monitor for withdrawal -Seizure precaution -Positive for opiates, amphetamines, cannabinoids Wrist Pain: Secondary to rheumatoid arthritis -See imagine above Hypokalemia -Oral Replacement and IV replacement Multiple psych problems -Will consult psych once patient is stable DVT Teds, Heparin Disposition. Once patient's medical stable. Patient can discharge to inpatient psych unit. VS,Fishbone, I+O VS, Fishbone, I+O Laboratory Tests 03/30/19 12:22 03/30/19 19:41 03/30/19 21:47 03/31/19 01:22 03/31/19 03:16 03/31/19 05:39 Vital Signs Date Time Temp Pulse Resp B/P (MAP) Pulse Ox O2 Delivery O2 Flow Rate FiO2 03/31/19 06:21 99 98/57 (71) 97 Nasal Cannula 2.0 03/31/19 04:21 98.3 20 I&O- Last 24 Hours up to 6 AM 03/31/19 06:00 Intake Total 2010 ml Output Total 2475 ml Balance -465 ml JAVIER ORONA DO Mar 31, 2019 07:55
[2019-03-31] MEDS: NICOTINE 7 MG/24 HR TRANSDERMAL TD SCH (11:49)
[2019-03-31] MEDS ORDERED: [UNRECOGNIZED DRUG - OTHER] IM ONE (13:00)
--- NOTE | 2019-03-31 14:51 | CR ---
DATE OF CONSULTATION: 03/31/2019 I was asked to consult by Dr. Joya for evaluation of Staphylococcus aureus bacteremia. HISTORY OF PRESENT ILLNESS: Mrs. Doty is a 48-year-old female IV drug user, Chantel and methamphetamines as well as IV heroin. The patient was brought in to the hospital by her friend who noticed that she had mental status change, slurring her speech and was not acting herself. The patient was noted to have a fever. Denied any nausea, vomiting, diarrhea, abdominal pain. No chest pain. She had mild shortness of breath. The patient was febrile and hypertensive, tachycardiac, and tachypneic with O2 sat of 94%. She was started on IV vancomycin and Levaquin and admitted to the intensive care unit (ICU). She has a history of active drug use with Chantel and methamphetamines and she uses IV heroin when she wants to get down from the Chantel. She complains today of hurting all over and not feeling well. PAST MEDICAL HISTORY: Her past medical history significant for chronic neck pain and back pain for which she followed up at the pain clinic, degenerative disc disease, spinal stenosis. History of fibromyalgia, depression, anxiety, substance abuse, Chantel, methamphetamine, heroin, had been inpatient in [place] as well as a group home house, but never remained clean for a long period of time. She had followed up at the [facility] methadone clinic. History of suicidal ideations an attempt cutting as a teen. Chronic hepatitis C. Her last HIV test was a couple years ago. She agrees on HIV testing. PAST SURGICAL HISTORY: Cervical surgery with titanium plate. Lumbar surgery with fusion and rods in 2013. Inguinal hernia repair, cholecystectomy, , hysterectomy, EGD colonoscopy [place] [address] Mercado. SOCIAL HISTORY: She lives in [place], [place]. She is . She was in the for 2-1/2 years and now she is a . She follows up [facility]. Smokes a pack of cigarettes a day. She has three kids, two of them are 12 and 16, they live with their father. She is in contact with them and the father, they have a fair relationship. Drug abuse including heroin, benzos, Mollys, marijuana. FAMILY HISTORY: Father has a history of alcohol abuse and brother of alcohol use. REVIEW OF SYSTEMS: She has fever, chills, body aches, generalized myalgias, right wrist pain, diffuse scratch perez and perez on her arms from drug use. She does not have a good vein and therefore she tries any possible injectable site that she could use. She has multiple excoriations. PHYSICAL EXAMINATION: On physical exam a sick looking female in no acute distress. Looks older than stated age. Temperature is 98.6, T-max yesterday was 102.4. Heart: Normal S1-S2, tachycardiac. No murmurs appreciated. Lungs: Diminished breath sounds at the bases but for the most part clear. No wheezes, rales, or rhonchi. Abdomen is soft, nontender. No hepatosplenomegaly. Right upper quadrant scar of cholecystectomy. Back: No CVA or lumbosacral tenderness. Pain in lumbar spine. Extremities: No clubbing, cyanosis or edema. Skin: Has multiple tattoos, multiple track perez on her upper arms and legs have scratch perez as well as scabs but much less than the upper extremities. Bilateral wrists are swollen, right more than left with an area on the right side that is tender to touch with some induration but no erythema. She has good range of motion of both wrists. Oropharynx edentulous. She has a incision on the lower gum area and nodular growths measuring about 1 cm, tender to touch. No other lesions. No thrush. Pupils equal and reactive, anicteric. Pale conjunctive. No petechial lesions. Neurologic exam: Alert, oriented times three, appropriate, moves all extremities, no obvious neurologic deficit. LABORATORY DATA: White count was 8.1, hemoglobin 9.1, hematocrit 28.2, platelets 126, 81% neutrophils, 8% lymphocytes, 7% monocytes. ESR 68. Sodium 136, potassium 4.3, chloride 102, bicarb 26, BUN 13, creatinine 0.74, glucose 118, calcium 7.5, phosphorus 2.2, magnesium 2.3, AST 28, ALT 15, alk phos 163, CRP 29.3, total protein 5.5, albumin 1.6, a.m. cortisol 22.6. Urine drug screen was positive for opiates, amphetamines and cannabinoids. Influenza A and B were negative. Methicillin-resistant Staphylococcus aureus (MRSA) screen was positive. ABG pH 7.48 pCO2 37, pO2 85, O2 sat 96%. Blood cultures two sets were done yesterday at 12:22 and 1313 are positive for gram-positive cocci in clusters. Respiratory panel was negative. Two more sets of blood cultures were ordered for 03/31 are pending. IMAGING: Chest x-ray shows a right IJ central line placed in the superior vena cava. Lungs unremarkable and no consolidation. Extremity CT without contrast shows evidence of tenosynovitis particularly involving the extensor carpi ulnaris and there is fluid throughout the carpus with involvement of at least two compartments, there is diffuse arthritic erosive changes possibly septic arthritis. No acute fracture right wrist. Right wrist x-ray moderate arthritic degenerative changes. Noncontrast head CT negative. IMPRESSION This is a 48-year-old female IV drug user who was admitted with fever, mental status changes, severe sepsis and has Staphylococcus aureus bacteremia. The patient had a systolic blood pressure yesterday of 86/55, which has improved. She most likely has endocarditis possibly methicillin-resistant Staphylococcus aureus (MRSA). 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 She has multiple track perez which are the source of entry. There is also concern of erosive changes and the right wrist with a loculated collection possibly tenosynovitis that could also be the source of infection. Would recommend orthopaedic consultation for evaluation of the right wrist. MEDICATIONS: - nicotine patch daily - vancomycin 750 mg every 8 hours - potassium IV - Tylenol 650 every 4 as needed - ibuprofen 600 by mouth 6 hours as needed - levofloxacin 500 mg IV every 24 hours, the patient received one dose and this has been discontinued ALLERGIES: PENICILLIN, SULFA, TRAMADOL, TRIMETHOPRIM. PLAN: 1. Transthoracic echocardiogram has been scheduled and if that is negative consider obtaining MARIANA. 2. Repeat blood culture until documented negative times two sets. 3. Consult orthopedic surgery for evaluation of her right wrist. 4. Continue IV vancomycin. Discontinue IV Levaquin. 5. As far as patient has a history of chronic hepatitis C she will need hepatitis A vaccination which was ordered and the patient has agreed on HIV testing. Thank you for consultation.
[2019-03-31 17:57] LABS: HIV 1&2 SCREEN CENTAUR NEGATIVE (NEGATIVE)
[2019-03-31 18:11] LABS: HEPATITIS C VIRUS ABY INDEX > 11.0 INDEX (<0.8)
--- NOTE | 2019-03-31 20:17 | ECGEPIP ---
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
[2019-03-31] MEDS ORDERED: NORCO, ANEXSIA 5/325MG TABLET (HYDROcodone/ACETAMINOPHEN) PO PRN (20:30)
--- NOTE | 2019-03-31 22:11 | CR ---
DATE OF CONSULTATION: 03/31/2019 REQUESTING PHYSICIAN: Dr. Reilly Kim CONSULTING PHYSICIAN: Dr. Shaina Bautista REASON FOR CONSULTATION: Management of hyponatremia and hypokalemia. CHIEF COMPLAINT: The patient was brought to the emergency room because of altered mental status. HISTORY OF PRESENT ILLNESS: Sujey Doty is a 48-year-old female with a past medical history of depression, history of polysubstance abuse. She abuses intravenous (IV) drugs. She has chronic hepatitis C virus infection. Multiple other comorbidities as mentioned below. She was brought to the emergency room yesterday after her friends noticed that she was having slurred speech, she was confused, she was not acting like herself, and she was unable to answer questions. She had been injecting multiple substances, including tamy, methamphetamines, and street drugs. When the patient arrived in the emergency room, she was found to have a sodium level of 126. She had a sodium of 141 beginning of this month. The patient was also hypokalemic with a potassium of 3, and she had lactic acidosis with lactate of 2.8. The patient was given normal saline 2 liter bolus in the emergency room. She was admitted to the intensive care unit (ICU) under the hospitalist service. The patient was discussed with myself by the admitting resident overnight and plan was to check the basic metabolic panel (BMP) every 2 hours. I was called every 2 hours for patient's labs overnight. I saw and examined the patient today morning at the bedside in the ICU. Her mother and grandfather were also present at the bedside. The patient is slightly more awake today as compared with yesterday. PAST MEDICAL HISTORY: Past medical history of polysubstance abuse, history of chronic back pain, degenerative disc disease, spinal stenosis, fibromyalgia, history of depression and anxiety, hepatitis C virus infection. PAST SURGICAL HISTORY: History of cervical surgery with titanium plate, lumbar surgery with fusion and rods, inguinal hernia repair status post cholecystectomy, section times three, hysterectomy, esophagogastroduodenoscopy (EGD) in 2012 and colonoscopy in 2013. ALLERGIES: The patient is allergic to SULFA, PENICILLINs, TRAMADOL and TRIMETHOPRIM. FAMILY HISTORY: The patient's mother is alive and well. Father is alive as well. No significant family history of end-stage renal disease requiring hemodialysis. SOCIAL HISTORY: The patient has a history of polysubstance abuse. REVIEW OF SYSTEMS: Constitutional: Patient reports fevers and chills. Eyes: She denies any blurry vision, double vision. Ears, Nose, and Throat (ENT): She denies any dysphagia, odynophagia, ear discharge. Cardiovascular: She denies any chest pain or palpitations. Respiratory: She does report some cough. Gastrointestinal (GI): She reports nausea and decreased appetite. Genitourinary: She denies any hematuria. Musculoskeletal: She reports generalized muscle aches and pains, especially in the bilateral upper extremities where she injects the drugs. Psychiatric: She reports a history of depression. 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 PHYSICAL EXAMINATION: General: The patient is awake, alert, oriented times two, laying in bed. No apparent distress. Vital signs: When I saw her in the morning, her temperature was 98.6 degrees Fahrenheit, maximum temperature (T max) is 102.1 degrees Fahrenheit at night time, blood pressure is 99/62, pulse is 116, respiratory rate of 18, saturating 96% on room air. Head and neck exam: Extraocular muscles intact. Pupils equally round and reactive to light. Neck is supple. There is no jugular venous distention (JVD). Cardiovascular: S1, S2, tachycardia, 1+ edema of the bilateral lower extremities. Respiratory: Chest is clear to auscultation bilaterally. Bilateral equal air entry. No rales or rhonchi. Abdomen: Soft. Old surgical scars are palpable in the abdomen. Genitourinary: Bladder is not palpable. Musculoskeletal: The patient has significant tenderness in bilateral upper extremities. She has needle track perez and multiple small ulcerations of the upper extremities. CLOTH FINISHING RANGE TENDER: The patient is oriented times three. She is able to follow commands and moves extremities. LAB REVIEW: CBC showed a WBC of 8.1, hemoglobin 9.1, platelets of 126. Urinalysis last night showed 2+ protein, 3+ blood. Random osmolality was 293. Random sodium was 30. BMP on arrival showed sodium 126, potassium 3, lactic acid was 2.8 on arrival. BMP early in the morning today showed sodium 136, potassium 4.3, chloride 102, bicarbonate 26, BUN 13, creatinine is 0.74, glucose 118, calcium 7.5, AST 28, ALT 15, C-reactive protein 29.3, albumin 1.6, morning cortisol is 22.6, procalcitonin is 1.73. Microbiology: Blood culture initially sent yesterday 04/09 are growing gram-positive cocci in clusters. Respiratory viral panel is negative. IMAGING: The patient had multiple imagings done including chest x-ray, extremity CT scan, head CT, CT scan of the abdomen and pelvis. They were all reviewed by myself. CURRENT INPATIENT MEDICATIONS: The patient's medications were all reviewed by me. She was initially given normal saline; however, after she was over correcting. She was given a D5W bolus 500 mL overnight, and then she was started on D5W with 40 mEq of KCl at 100 mL an hour. She was getting Levaquin and vancomycin initially; vancomycin has been changed to 750 mg every 8 hours. Levaquin has been stopped. She is on heparin subcu every 12 hours. She was given hepatitis C virus vaccine. She is on ibuprofen as needed. She is on nicotine patch. The patient was given potassium chloride 40 mEq times two doses since yesterday. ASSESSMENT: 48-year-old female with polysubstance abuse, chronic hepatitis C virus infection, admitted at this time with hyponatremia, hypokalemia and sepsis secondary to gram-positive cocci bacteremia. PLAN: 1. Acute hyponatremia. The patient's sodium level is 126. She was initially hydrated with normal saline. Patient has a very good urine output. She is making dilute urine. Sodium has nicely improved to 136 today. IV D5W is being stopped. 2. Hypokalemia. The patient had severe hypokalemia overnight. She was given IV and oral potassium; potassium level has improved to 4.3 now. 3. Sepsis. Secondary to gram-positive cocci bacteremia. The patient is septic because of IV drug abuse. She has superficial thrombophlebitis of multiple veins in the bilateral upper extremities. She is currently on IV vancomycin. Echocardiogram has also been ordered; result is pending. There is a risk of infective endocarditis given history of IV drug abuse. 4. Polysubstance abuse. The patient's urine toxicology result came back positive for opiates, amphetamines, and cannabinoids. She reports that she has been to rehab before, but because of her [place] of friends, she starts doing drugs again. 5. Chronic hepatitis C virus infection. The patient's liver function is within the acceptable range. She will need treatment of hepatitis C virus once she becomes clean and stops doing IV drugs. Thank you for involving me in the care of this patient. I shall be happy to follow the patient along with you tomorrow morning. Total critical care time spent in the management of this patient today morning in the ICU was one hour excluding all the procedures.
[2019-04-01] VITALS: BP 106/60
[2019-04-01] MEDS: VANCOMYCIN HCL 750 MG, VIAL MATE ADAPTER 1 EACH in D5W 250 ML IV SCH ×4 (00:18→23:45)
[2019-04-01] MEDS: RAMELTEON 8 MG TAB (ROZEREM) PO SCH ×2 (00:26→20:56)
--- NOTE | 2019-04-01 00:33 | ECHO ---
DATE OF PROCEDURE: 03/31/2019 DATE OF : 1970 AGE: 48 PATIENT LOCATION: Room 3206 REFERRING PROVIDER: Dr. Pina REASON FOR STUDY: Sepsis. 2D MEASUREMENTS: IVS: 0.9 cm LV: 4.2 cm LVPW: 0.9 cm LA: 2.7 cm Aorta: 2.7 cm RV: 2.0 cm IVC: 1.23 cm DOPPLER MEASUREMENTS: Peak velocity across the aortic valve: 1.5 meters per second Peak velocity across the LVOT: 1.1 meters per second Peak gradient across the aortic valve: 9 mmHg Mean gradient across the aortic valve: 5 mmHg Mitral E: 0.76, Mitral A: 0.90 with a ratio of 0.8 Maximum tricuspid valve velocity: 2.4 meters per second 2D COMMENTS: 1. Normal left ventricular size, wall thickness, and normal global left ventricular systolic function. The estimated left ventricular systolic ejection fraction is 65-70%. 2. Normal left atrium. Normal right atrium and right ventricle. 3. The atrial septum appeared to be normal without evidence of defect or shunt. 4. Normal aortic root. 5. Trace pericardial effusion noted, no evidence of cardiac tamponade. 6. The aortic valve, mitral valve, tricuspid valve, and pulmonic valve appeared to be normal. The proximal pulmonary artery branches also appeared to be normal. 7. The inferior vena cava was normal in size, central venous pressure is most likely normal. DOPPLER: No significant valvular abnormalities detected but trace to mild tricuspid regurgitation. The calculated pulmonary artery systolic pressure varies between 30-40 mmHg. Not noted above, maximum TR velocity was 2.4 meters per second. CONCLUSION: Normal left ventricular systolic function. Trace pericardial effusion, no evidence of cardiac tamponade. Trace to mild tricuspid regurgitation. The calculated pulmonary artery systolic pressure varies between 30-40 mmHg. Trivial aortic stenosis. The patient was noted to be mildly tachycardiac during the test. MTDD
[2019-04-01] MEDS: IBUPROFEN 600 MG TAB PO PRN ×2 (01:30→07:14)
[2019-04-01] MEDS: NORCO, ANEXSIA 5/325MG TABLET (HYDROcodone/ACETAMINOPHEN) PO PRN ×4 (01:53→22:17)
[2019-04-01 04:00] VITALS: BP 97/55
[2019-04-01 05:05] LABS: ERYTHROCYTE SEDIMENTATION RATE 70 mm/hr (0-20)
[2019-04-01] MEDS: ACETAMINOPHEN TAB 650MG DOSE (2X325MG) PO PRN ×3 (06:16→23:45)
[2019-04-01 06:20] LABS: BLOOD UREA NITROGEN 11 MG/DL (7-18); CALCIUM LEVEL 7.8 MG/DL (8.5-10.1); CARBON DIOXIDE LEVEL 28 MEQ/L (21-32); CHLORIDE LEVEL 101 MEQ/L (98-107); CREATININE FOR GFR 0.76 MG/DL (0.55-1.30); GLOMERULAR FILTRATION RATE > 60.0 (>58); GLUCOSE, FASTING 90 MG/DL (70-100); POTASSIUM SERUM 3.6 MEQ/L (3.5-5.1); SODIUM LEVEL 135 MEQ/L (136-145)
[2019-04-01 07:42] VITALS: BP 110/65
[2019-04-01 07:54] LABS: MEAN CORPUSCULAR HEMOGLOBIN 26.6 pg (27.0-33.0); MEAN CORPUSCULAR HGB CONC 33.3 g/dl (32.0-36.5); MEAN CORPUSCULAR VOLUME 79.9 fl (80.0-96.0); PLATELET COUNT, AUTOMATED 108 10^3/uL (150-450); RED BLOOD COUNT 3.38 10^6/uL (4.00-5.40); WHITE BLOOD COUNT 10.2 10^3/uL (4.0-10.0)
[2019-04-01] MEDS: HEPARIN SOD (PORCINE) 5000 UNITS/ML VIAL (J1644 PER 1000UNITS) SQ SCH ×2 (09:00→20:56)
[2019-04-01] MEDS: NICOTINE 7 MG/24 HR TRANSDERMAL TD SCH (09:55)
--- NOTE | 2019-04-01 11:11 | REP ---
HEPATIC ULTRASOUND: 04/01/2019. COMPARISON: Noncontrast CT 03/30/2019. CLINICAL HISTORY: Hepatitis C. FINDINGS: Sonographic evaluation of the left upper quadrant shows the liver homogeneous and diffusely mild hyperechoic parenchyma and may reflect some mild fatty infiltration. Liver is of mildly enlarged at 18 cm in the midclavicular line on this study and CT. Left hepatic lobe is mildly prominent. There is smooth contour of the liver margin. No focal hepatic mass, intrahepatic biliary dilatation or perihepatic ascites. Gallbladder is surgically absent. Common duct is 5.1 mm without a filling defect. Pancreas shows no dilatation of the duct within it. There is a at 1.5 x 1.9 x 1.2 cm hypoechoic nodule adjacent to the pancreatic head near the melissa hepatis. This is not visible on CT because of extensive spray artifact from the numerous surgical clips from prior cholecystectomy. No peripancreatic fluid collection, visible pancreatic mass or other suspected adenopathy. The right kidney is 11.8 x 6.3 x 3.7 cm. In the interpolar region laterally is a 2.8 x 2.2 cm simple cyst. No hydronephrosis. No generalized ascites. IMPRESSION: 1. Mild hepatomegaly (18 cm) with slight enlargement of the left hepatic lobe and mild diffuse increased echogenicity of the liver parenchyma. This may reflect some fatty infiltration. 2. There is no intrahepatic biliary dilatation, hepatic mass or ascites. 3. 1.9 x 1.5 x 1.2 cm nodule adjacent to the pancreatic head near the melissa hepatis, likely a lymph node. This is obscured on CT because of shadowing from the numerous metal clips from cholecystectomy. No other nodules, pancreatic mass or pancreatic ductal dilatation. The common duct is 5.1 mm and normal. 4. 2.8 cm simple cyst right kidney, no other finding. Electronically Signed by Jose Francisco Duong MD 04/01/2019 07:56 P
[2019-04-01 12:00] VITALS: BP 117/74
[2019-04-01] MEDS ORDERED: KETOROLAC 30 MG/ML VIAL (J1885) IV PRN (12:30)
--- NOTE | 2019-04-01 14:19 | IPNPDOC ---
Text Note Date of Service The patient was seen on 04/01/19. NOTE Subjective: Patient was examined this am at bedside. She was more alert. No acute events over night. This am she complained of left shoulder pain. She was afebrile overnight PE: GEN: 48-year-old, resting in bed, complained of shoulder pain. Alert, HEENT:multiple skin excoriations around the face, supple neck, CHEST: no murmurs, rubs or gallops LUNGS: Clear to auscultation bilaterally. No wheezes, rales, or rhonchi. EXT: Multiple track perez, no edema, redness and radiation, multiple wounds, no deformities SKIN: Multiple track perez, multiple skin excoriations, no oral lesions, visible scratches perez, no rashes IMAGIND COMMENTS: 1. Normal left ventricular size, wall thickness, and normal global left ventricular systolic function. The estimated left ventricular systolic ejection fraction is 65-70%. 2. Normal left atrium. Normal right atrium and right ventricle. 3. The atrial septum appeared to be normal without evidence of defect or shunt. 4. Normal aortic root. 5. Trace pericardial effusion noted, no evidence of cardiac tamponade. 6. The aortic valve, mitral valve, tricuspid valve, and pulmonic valve appeared to be normal. The proximal pulmonary artery branches also appeared to be normal. 7. The inferior vena cava was normal in size, central venous pressure is most likely normal. DOPPLER: No significant valvular abnormalities detected but trace to mild tricuspid regurgitation. The calculated pulmonary artery systolic pressure varies between 30-40 mmHg. Noted above, maximum TR velocity was 2.4 meters per second. Trace pericardial effusion, no evidence of cardiac tamponade. Assessment: Patient is a 48-year-old female, with a past medical history significant for multiple admissions for depression, polysubstance abuse including Chantel, methamphetamine, and other street drugs, and IV drug use, hepatitis C. Presents today by ambulance after her friend noticed her slurring her words, and not acting like herself. Unable to answer questions appropriately, simply moans in pain PLAN Metabolic encephalopathy secondary to sepsis, secondary to IV drug use, polysubstance abuse, psychiatric disease, possible infection, secondary to possible infective endocarditis -Improved. This is most likely her base line -Continue vancomycin -Negative TTE: -MARIANA Pending -MRSA screen positive -Respiratory panel negative -CT head negatiive - Supplemental oxygen -Telemetry Bacteremia -Initial blood culture positive for staphylococcus aureus. Repeat cultures also positive for stap aureus -Vancomycin - Infectious disease consulted -TTE: Negative, see details above -MARIANA: Ordered for wednesday -MRSA Screen Positive -Contact precaution -She has an elevated WBC of 10.2 with febrile and worsening condition. Will continue to monitor Chronic Hep C -Liver Function within normal limits -Liver US ordered -Hepatitis C quantitative by PCR ordered, hepatitis C viral genotype, hepatitis C fibrosure -Will most likely need Hep C treatment once is IVDU free Wrist and Shoulder Pain -Consult orthopedic surgery Hyponatremic -Resolved. Managed by nephrology -Nephrology consult Lactic acidosis -Resolved, status post fluid bolus, patient also antibiotics Tobacco abuse -Nicotine patch Polysubstance abuse -Tested positive for opiates, amphetamine and cannabis -Will monitor for withdrawal -Seizure precaution -Positive for opiates, amphetamines, cannabinoids Wrist Pain: Secondary to rheumatoid arthritis -See imagine above -Consider Ortho consult if pain does not improve Hypokalemia -Oral Replacement and IV replacement Multiple psych problems -Will consult psych once patient is stable DVT Teds, Heparin Disposition. Once patient's medical stable. Patient can discharge to inpatient psych unit. VS,Fishbone, I+O VS, Fishbone, I+O Laboratory Tests 03/31/19 08:00 04/01/19 04:23 Vital Signs Date Time Temp Pulse Resp B/P (MAP) Pulse Ox O2 Delivery O2 Flow Rate FiO2 04/01/19 04:00 97.9 118 16 97/55 (69) 95 Room Air 03/31/19 07:00 2.0 I&O- Last 24 Hours up to 6 AM 04/01/19 06:00 Intake Total 3410 ml Output Total 3525 ml Balance -115 ml JAVIER ORONA DO Apr 01, 2019 07:33
--- NOTE | 2019-04-01 14:31 | REP ---
LEFT SHOULDER, COMPLETE: 04/01/2019. CLINICAL HISTORY: Pain. FINDINGS: No prior study. Three view show the AC joint without widening of the joint space or elevation of clavicle. Minimal inferior spur from the acromion. There is no fracture of clavicle, scapula or humeral head. There is an old healed and remodeled posterior lateral 6th rib fracture. No new rib fracture. No abnormal soft tissue calcifications about the glenohumeral joint. IMPRESSION: 1. Minimal degenerative changes AC joint without fracture, avulsion, soft-tissue calcification or other acute finding. Electronically Signed by Jose Francisco Duong MD 04/01/2019 08:02 P
--- NOTE | 2019-04-01 14:59 | REP ---
RIGHT WRIST COMPLETE: 04/01/2019. Clinical history: Right wrist pain. Comparison: 03/30/2019. Findings: There is again noted to be an ulnar plus variance. There are erosive changes at the distal margin of the ulna both adjacent to the radius at the distal radioulnar joint and also near the base of the ulnar styloid. There are also erosions in the scaphoid near the distal radial styloid and also the multangular bones, triquetrum and to lesser extent other carpal bones. There has been old post-traumatic changes of the distal radius dorsally with presumed post traumatic spurring and remodeling over the dorsal lip of the radius at the radiocarpal articulation. I do not see erosions in the CMC joints or proximal metacarpals, metacarpal shafts intact. Some degenerative changes first CMC P joint. Impression: 1. Erosive arthritis involving multiple carpal bones, distal ulna and possibly the radius. The bones are demineralized. No ulnar deviation of the fingers. There are post-traumatic changes in the dorsal aspect distal articular surface of the radius. No definite acute fracture. Prominent soft tissue swelling on the lateral view. Not much change release manager the past 48 hours. Electronically Signed by Jose Francisco Duong MD 04/01/2019 08:03 P
[2019-04-01] MEDS ORDERED: LIDOCAINE 4% CREAM 5GM (LMX4) TOP SCH (16:15)
[2019-04-01 16:24] VITALS: BP 100/63
[2019-04-01] MEDS: MELOXICAM (MOBIC) 7.5 MG TAB PO SCH (18:08)
--- NOTE | 2019-04-01 19:43 | IPN ---
DATE: 04/01/2019 SUBJECTIVE: The patient was examined at the bedside today morning in the intensive care unit (ICU). She is afebrile now, hemodynamically stable. Her sodium level is stable and fluctuating between 135-136. Renal function is also within the acceptable range. OBJECTIVE: VITAL SIGNS: Temperature is 98 degrees Fahrenheit, blood pressure 100/63, pulse is 116, respiratory rate of 18, saturating 98% on room air. INTAKE AND OUTPUT: Urine output recorded is 4 liters yesterday, 1 liter so far today since overnight. Weight in the bed scale is stable at 58.2 kg. PHYSICAL EXAMINATION: GENERAL: The patient is awake, alert, oriented times two, laying in bed, mild painful distress. HEAD AND NECK: Extraocular muscles intact. Pupils equally round and reactive to light. Neck is supple. She has a right internal jugular (IJ) triple-lumen catheter. CARDIOVASCULAR: S1, S2, tachycardia and trace edema of the bilateral lower extremities was noted. RESPIRATORY: Chest is clear to auscultation bilaterally. Bilateral equal air entry. No rales or rhonchi. ABDOMEN: Soft, positive bowel sounds, nontender. No organomegaly. She has an indwelling Villalba catheter. MUSCULOSKELETAL: The patient has normal range of movement. Otherwise, she has multiple needle perez on the bilateral upper extremities and she has tenderness of the bilateral upper extremities. CENTRAL NERVOUS SYSTEM (NON DESTRUCTIVE TESTING SUPERVISOR): No focal deficit. The patient is slightly agitated. She moves all extremities. LABORATORY REVIEW: CBC showed a WBC of 10.2, hemoglobin is 9, platelets are 108. BMP showed sodium 135, potassium 3.6, chloride 101, bicarbonate 28, BUN 11, creatinine is 0.7, calcium 7.8, C-reactive protein is 24.3. MICROBIOLOGY: Blood cultures sent on 03/30/2019 and 03/31/2019 are all growing Staphylococcus aureus. IMAGING: A liver ultrasound was done which showed mild hepatomegaly, fatty infiltration. Wrist x-ray was done which showed erosive arthritis involving multiple carpal bones. Left shoulder x-ray was done which showed minimal degenerative changes. CURRENT INPATIENT MEDICATIONS: The patient's medications were all reviewed by me. She is currently on IV vancomycin. She is currently on [place] one tablet every four hours. Ibuprofen has been stopped. She is also getting meloxicam as needed. No other change in the medications today as compared with yesterday. ASSESSMENT AND PLAN: 1. Hyponatremia. The patient had acute hyponatremia on arrival. Sodium level has been nicely improved to 135 and it is stable. 2. Sepsis secondary to Staphylococcus aureus bacteremia. It is secondary to IV drug abuse. Echocardiogram was done which did not show any vegetations. She continues to be on IV vancomycin. 3. Polysubstance abuse. The patient is complaining of multiple joint aches and pains. Most likely it is secondary to combination from the drug withdrawal and active bacteremia. Management is as per primary team. 4. Chronic hepatitis C virus infection. The patient got the liver ultrasound done which showed fatty infiltration. There is no evidence of cirrhosis. DISPOSITION: The patient's renal function is stable. Electrolytes are within the acceptable range. Nephrology service is going to sign off at this moment. Please call nephrology service for any help with the management of this patient during this hospitalization.
[2019-04-01 20:00] VITALS: BP 114/65
--- NOTE | 2019-04-01 23:03 | CR ---
DATE OF CONSULTATION: 04/01/2019 CHIEF COMPLAINT: Left shoulder and right wrist pain. The patient has a complex past medical history, most significant for depression, polysubstance abuse, intravenous (IV) drug abuse, hepatitis C, and rheumatoid arthritis. This is a 48-year-old female who was admitted for altered mental status on 03/30/2019 and was admitted for infectious workup. She complains at this time, now that her mental status has resolved, of left shoulder and left-sided neck pain, along with right wrist pain. Per the patient and the mother, these appear to be new onset over the last few days; however, the patient has had chronic right wrist problems in the past, which they attribute to her rheumatoid arthritis. When she was admitted, she had a fever of 102.1, but has denied any fever since. Says the pain is made worse with any sort of movement of the left arm and right wrist, especially with lifting, but does not have significant pain at rest and it is tender to touch. The pain is 1-2/10 at rest, but increases up to 6-9/10 with any sort of increased activity. It is sharp in nature. It is alleviated with rest and immobilization. Patient denies any numbness and tingling and the pain is improved with pain medication. A complete 10 system review with pertinent positives and negatives in the history of present illness was completed. All other systems negative. PAST MEDICAL HISTORY: 1. Chronic neck and back pain. 2. Degenerative disc disease. 3. Spinal stenosis. 4. Chronic pain. Patient is a pain management patient. 5. Fibromyalgia. 6. Depression/anxiety. 7. Substance abuse, [facility] methadone clinic. 8. IV drug abuse. 9. Hepatitis C. 10. Rheumatoid arthritis. PAST SURGICAL HISTORY: 1. Surgical and lumbar fusion done in [place]. 2. Inguinal hernia repair. 3. Cholecystectomy. 4. (C) section times three. HOME MEDICATIONS: Reviewed and are none. ALLERGIES: PENICILLIN, rash; SULFA, rash; TRIMETHOPRIM, rash; TRAMADOL, itching. SOCIAL HISTORY: Patient resides in [place], is , has three kids, is unemployed, smoker, one pack a day, illicit drug use, history of benzodiazepines, Chantel, marijuana and methadone, and tattoos unprofessionally. PHYSICAL EXAMINATION: Patient is awake, alert and oriented, well dressed, appropriate affect. Thin, labored in room air. Normocephalic, atraumatic. Other than superficial abrasions, appearing to be skin picking. BILATERAL UPPER EXTREMITIES: Tender to palpation about the shoulder and continued up the superior shoulder into the neck region. Tender to palpation right wrist. No pain with internal or external rotation of the left shoulder. No pain with passive range of motion of the right wrist. Positive anterior interosseous nerve (AIN), posterior interosseous nerve (PIN) on the motor function bilaterally. Sensation intact to light touch on superficial, center edge, radial nerve, medial nerve, and ulnar nerve bilaterally. Radial pulse 2+, regular rate. Skin has multiple lesions throughout bilateral upper extremities. All appear to be uninfected. No signs of fluctuance or significant erythema over the right wrist or left shoulder. BILATERAL LOWER EXTREMITIES: No pain with active and passive range of motion of the hips, knees and ankles. Skin is intact with multiple superficial abrasions throughout bilateral lower extremities. Posterior tibial pulse 2+, regular rate. Positive extensor hallucis longus (EHL), flexor hallucis longus (FHL), tibialis, gastroc motor function. Sensation is intact to light touch in superficial, peroneal, deep peroneal, sural, saphenous, and tibial distributions. IMAGING: Reviewed. The x-ray of the right wrist demonstrates severe degenerative changes with osteopenic changes of the radiocarpal joints and carpal, along with signs of a degenerative slack wrist. CT scan reviewed demonstrating tenosynovitis of the extensor carpi ulnares (ECU) and multiple dorsal extensor tendons, but no discreet fluid mass. Left should x-ray reviewed, demonstrating no acute fractures of the patient. Reports of the liver ultrasound, urinalysis, chest x-ray, CT abdomen, CT head reviewed, negative for any signs of infection. Lab work reviewed. Patient was admitted with white count of 7.1 that trended up to 8.1 on 03/31/2019 and up to 10.2 today. Erythrocyte sedimentation rate has been trending up as well, from 60 to 68 to 70 today. CRP has actually been decreasing, from 37.6 to 29.3 to 24.3 mm/dL today. Patient has been afebrile since initial admission on 03/30/2019, having 03/31/2019 and 04/01/2019 afebrile. IMPRESSION: This is a 48-year-old IV drug abuser with history of rheumatoid arthritis with left shoulder and right wrist pain. At this time, I believe with the lab values and pain and patient's clinical history, I think it warranted aspiration of both joints. Consent was obtained. I discussed the risks and benefits, including but not limited to infection, damage to underlying structures and complete need for further interventions. Patient consented. We then did a clean aspiration of the left shoulder from the posterior portal that was actually a dry tap. We also attempted a right wrist radial carpal aspiration. Once again, it was a dry tap, but very confident for both aspirations were inside the joints, which was supportive of negative septic arthritis, along with actually the clinical exam, given that the patient has very little pain with range of motion and movement and more tender to palpation. At this time, we will continue to monitor clinically. Defer management back to medicine team. It did appear on clinical exam she was tender more superiorly up to the neck. They may want to consider evaluation for lesion eruption in the neck region; however, did not appear to appreciate any sort of sign of fluctuance or collection superficially. Please call with any further questions or concerns. If the patient's symptoms of her left shoulder/right wrist worsen, please feel free to give me another call, but at this time, I see no signs or indications for urgent orthopedic intervention.
[2019-04-02] VITALS: BP 107/59
[2019-04-02 04:00] VITALS: BP 103/65
[2019-04-02] MEDS: NORCO, ANEXSIA 5/325MG TABLET (HYDROcodone/ACETAMINOPHEN) PO PRN ×4 (04:26→22:53)
[2019-04-02 05:12] LABS: BLOOD UREA NITROGEN 15 MG/DL (7-18); CALCIUM LEVEL 7.7 MG/DL (8.5-10.1); CARBON DIOXIDE LEVEL 27 MEQ/L (21-32); CHLORIDE LEVEL 102 MEQ/L (98-107); CREATININE FOR GFR 0.87 MG/DL (0.55-1.30); GLOMERULAR FILTRATION RATE > 60.0 (>58); GLUCOSE, FASTING 91 MG/DL (70-100); POTASSIUM SERUM 3.9 MEQ/L (3.5-5.1); SODIUM LEVEL 137 MEQ/L (136-145)
[2019-04-02 07:50] VITALS: BP 110/60
[2019-04-02] MEDS: NICOTINE 7 MG/24 HR TRANSDERMAL TD SCH (08:11)
[2019-04-02] MEDS: MELOXICAM (MOBIC) 7.5 MG TAB PO SCH (08:11)
[2019-04-02] MEDS: VANCOMYCIN HCL 750 MG, VIAL MATE ADAPTER 1 EACH in D5W 250 ML IV SCH ×3 (08:11→23:51)
[2019-04-02] MEDS: HEPARIN SOD (PORCINE) 5000 UNITS/ML VIAL (J1644 PER 1000UNITS) SQ SCH ×2 (08:12→08:19)
[2019-04-02 08:15] LABS: HEMATOCRIT 25.9 % (36.0-47.0); HEMOGLOBIN 8.5 g/dl (12.0-15.5); MEAN CORPUSCULAR HEMOGLOBIN 26.1 pg (27.0-33.0); MEAN CORPUSCULAR HGB CONC 32.8 g/dl (32.0-36.5); MEAN CORPUSCULAR VOLUME 79.4 fl (80.0-96.0); PLATELET COUNT, AUTOMATED 89 10^3/uL (150-450); RED BLOOD COUNT 3.26 10^6/uL (4.00-5.40); WHITE BLOOD COUNT 12.8 10^3/uL (4.0-10.0)
--- NOTE | 2019-04-02 09:20 | IPNPDOC ---
Text Note Date of Service The patient was seen on 04/02/19. NOTE Subjective: Patient seen and examined at bedside. Still complains of generalized malaise. No new medical complaints. O: GEN: NAD, lying comfortably in bed HEENT: NC, EOMI, edentulous, multiple skin excoriations around the face, right IJ TLC in place Heart: +S1S2, RRR LUNGS: Clear to auscultation bilaterally. No wheezes, rales, or rhonchi. EXT: Multiple track perez, no edema A/P: 48-year-old female, with PMHx Hep C, multiple admissions for depression, polysubstance abuse including [place], methamphetamine, and IV drug use. Presented by ambulance for altered mental status, lethargy, somnolence. #toxic Metabolic encephalopathy - multifactorial - appears to have resolved - secondary to bacteremia/sepsis, polysubstance abuse, psychiatric illness, possible infective endocarditis #MRSA bacteremia/sepsis - continue IV Vanco - follow as per ID - assistance appreciated - TTE negative for vegetations - MARIANA planned for tomorrow 04/03/19 #Chronic Hep C - ALP elevated otherwise LFT WNL -Liver US ordered = hepatomegaly -Hepatitis C quantitative by PCR ordered, hepatitis C viral genotype, hepatitis C fibrosure -Will most likely need Hep C treatment once is IVDU free #Wrist and Shoulder Pain - tenosynovitis noted on imaging of wrist - ortho c/s appreciated - aspirates unrevealing - continue to follow clinically #Hyponatremia -Resolved #thrombocytopenia - avoid heparin products #Lactic acidosis -Resolved #Tobacco abuse -Nicotine replacement therapy #Polysubstance abuse -Tested positive for opiates, amphetamine and cannabis -Will monitor for withdrawal #Hypokalemia - resolved #Multiple psych problems -Will consult psych once patient is stable #DVT - mechanical prophylaxis Dispo: will require extended IV Vanco, unable to provide PICC line given IVDA; PFS c/s pending; ID f/u VS,Fishbone, I+O VS, Fishbone, I+O Laboratory Tests 04/02/19 04:30 04/02/19 04:31 Vital Signs Date Time Temp Pulse Resp B/P (MAP) Pulse Ox O2 Delivery O2 Flow Rate FiO2 04/02/19 07:50 99.3 123 20 110/60 (77) 96 Room Air 03/31/19 07:00 2.0 I&O- Last 24 Hours up to 6 AM 04/02/19 06:00 Intake Total 1675 ml Output Total 700 ml Balance 975 ml LUCI ALARCON MD Apr 02, 2019 09:20
[2019-04-02] MEDS: ACETAMINOPHEN TAB 650MG DOSE (2X325MG) PO PRN ×3 (09:43→20:00)
--- NOTE | 2019-04-02 10:12 | PHACANCOPD ---
PHARMACY VANCOMYCIN DOSING Pt Demographics Demographics Patient Age:48 , Weight:58.000 , Gender: female Adjusted Body Weight Date: 04/02/19, Adjusted Body Weight: Kg Events Past 24 Hours Events Past 24 Hours: YES: Fever, Elevation in WBC; NO: Dialysis, Diuretic Therapy, Change in CrCl, Pending Diagnostics, Pending Procedures, Other Vancomycin Vancomycin indication: MRSA bacteremia r/o endocarditis Vancomycin Target Ranges: 15-20 mcg/ml Vancomycin Load Y/N: Yes Load Dose Date Time Vancomycin Load Dose: 1000mg Date: 03/31 Time: ~[place] Vancomycin Dose Date: 03/31/19. Current Vancomycin Dose: [750mg IV q8h @08] Intermittent Dosing?: No Labs Labs Item Value Date Time Creatinine 0.74 MG/DL 03/31/19 0800 Creatinine 0.76 MG/DL 04/01/19 0423 Creatinine 0.87 MG/DL 04/02/19 0431 Vancomycin Level Trough 16.5 UG/ML 04/01/19 0834 White Blood Count 8.1 10^3/uL 03/31/19 0539 White Blood Count 10.2 10^3/uL H 04/01/19 0423 White Blood Count 12.8 10^3/uL H 04/02/19 0430 Erythrocyte Sedimentation Rate 70 mm/hr H 04/01/19 0423 Erythrocyte Sedimentation Rate > 140 mm/hr H 04/02/19 0430 Vital Signs Label Value Date Time Patient Temperature 99.1 degrees F 04/02/19 0400 Temperature Source Temporal 04/02/19 0400 Patient Temperature 99.3 degrees F 04/02/19 0750 Temperature Source Temporal 04/02/19 0750 Micro Microbiology 04/02/19 Blood Culture, Received Pending 04/01/19 Blood Culture, Received Pending 04/01/19 Blood Culture - Preliminary, Resulted Staphylococcus Aureus 03/31/19 Blood Culture - Preliminary, Resulted No Growth after 48 hours. All Specime... 03/31/19 Blood Culture - Final, Complete Staph.aureus Methicillin Resis 03/30/19 Blood Culture - Final, Complete Staph.aureus Methicillin Resis 03/30/19 Respiratory Virus Panel (PCR) ([facility]) - Final, Complete 03/30/19 Blood Culture - Final, Complete Staph.aureus Methicillin Resis Creatinine Clearance Date:04/02/19. Creatinine Clearance: [~56 ml/min]. Date:03/30/19. Creatinine Clearance: [~52 ml/min]. Pending Labs Repeat vanco trough scheduled 04/03 @07:00 Assessment and Plan Maintaining Current Dose?: Yes Reason for dose change: No Dose Change Pharmacist Note Pharmacist Note Date: 04/02/19. Pharmacist note: pt was started on vancomycin on 03/31 for bacteremia, suspected endocarditis. She received a Vancomycin 1g loading dose followed by 750mg IV q8h. Vancomycin trough drawn before the 5th dose was 16.5 mcg/ml. Inflammatory markers have been trending up, pt is still mildly febrile. TTE was negative for vegetation, MARIANA is scheduled for tomorrow. Blood cultures have been positive for MRSA ([facility] = 1), repeat blood cultures are pending. I will repeat a trough tomorrow morning. We will continue to monitor and make adjustments as necessary. Victorino Gilliam Pharm.D. Apr 02, 2019 10:12
[2019-04-02 15:00] VITALS: BP 117/67
[2019-04-02] MEDS ORDERED: SLF 3 ML SYR IV PRN (15:45)
[2019-04-02 16:00] VITALS: BP 120/72
[2019-04-02 20:00] VITALS: BP 128/72
[2019-04-02] MEDS: RAMELTEON 8 MG TAB (ROZEREM) PO SCH (20:00)
[2019-04-02] MEDS: SLF 3 ML SYR IV SCH (22:52)
[2019-04-03] VITALS: BP 111/66
[2019-04-03 04:00] VITALS: BP 119/66
[2019-04-03] MEDS: NORCO, ANEXSIA 5/325MG TABLET (HYDROcodone/ACETAMINOPHEN) PO PRN ×2 (04:00→22:44)
[2019-04-03] MEDS: SLF 3 ML SYR IV SCH ×3 (06:54→22:00)
[2019-04-03 07:04] LABS: HEMATOCRIT 24.9 % (36.0-47.0); HEMOGLOBIN 8.4 g/dl (12.0-15.5); MEAN CORPUSCULAR HEMOGLOBIN 26.7 pg (27.0-33.0); MEAN CORPUSCULAR HGB CONC 33.7 g/dl (32.0-36.5); PLATELET COUNT, AUTOMATED 116 10^3/uL (150-450); RED BLOOD COUNT 3.15 10^6/uL (4.00-5.40); WHITE BLOOD COUNT 18.4 10^3/uL (4.0-10.0)
[2019-04-03 07:14] LABS: INR 1.24; PROTHROMBIN TIME 15.3 SECONDS (11.8-14.0)
[2019-04-03 07:26] LABS: ALBUMIN 1.5 GM/DL (3.2-5.2); ALT/SGPT 9 U/L (12-78); BILIRUBIN,DIRECT 0.4 MG/DL (0.0-0.2); BILIRUBIN,TOTAL 0.7 MG/DL (0.2-1.0); BLOOD UREA NITROGEN 12 MG/DL (7-18); CALCIUM LEVEL 7.6 MG/DL (8.5-10.1); CARBON DIOXIDE LEVEL 28 MEQ/L (21-32); CHLORIDE LEVEL 102 MEQ/L (98-107); CREATININE FOR GFR 0.88 MG/DL (0.55-1.30); GLOMERULAR FILTRATION RATE > 60.0 (>58); GLUCOSE, FASTING 86 MG/DL (70-100); POTASSIUM SERUM 3.3 MEQ/L (3.5-5.1); SODIUM LEVEL 136 MEQ/L (136-145); TOTAL PROTEIN 5.7 GM/DL (6.4-8.2); VANCOMYCIN LEVEL TROUGH 24.6 UG/ML (10.0-20.0)
[2019-04-03 08:00] VITALS: BP 132/77
[2019-04-03] MEDS: KCL 10MEQ/100ML SWI (KRUN) 10 MEQ in IV 1 EA IV SCH ×2 (08:27→09:38)
[2019-04-03 08:49] LABS: ERYTHROCYTE SEDIMENTATION RATE 127 mm/hr (0-20)
[2019-04-03] MEDS ORDERED: NS 1,000 ML IV SCH (09:00)
[2019-04-03] MEDS: MELOXICAM (MOBIC) 7.5 MG TAB PO SCH (09:00)
[2019-04-03] MEDS ORDERED: KETOROLAC 30 MG/ML VIAL (J1885) IV ONE ×2 (09:00→17:00)
--- NOTE | 2019-04-03 09:01 | IPNPDOC ---
Text Note Date of Service The patient was seen on 04/03/19. NOTE Subjective: Patient was examined at bedside. She complained on increasing shoulder pain. She was a febrile overnight, but had episodes of tachycardia over night O: GEN: Alert, in moderate destress, HEENT: skin excoriations around the face, right IJ TLC in place, neck in non tender MSK: Tender to palpate along the clavicular line, moderate erythema Heart: +S1S2, RRR LUNGS: Clear to auscultation bilaterally. No wheezes, rales, or rhonchi. EXT: Multiple track perez, no edema A/P: 48-year-old female, with PMHx Hep C, multiple admissions for depression, polysubstance abuse including Chantel, methamphetamine, and IV drug use. Presented by ambulance for altered mental status, lethargy, somnolence. #Toxic Metabolic encephalopathy secondary to bacteremia/sepsis, polysubstance abuse, psychiatric illness, possible infective endocarditis - multifactorial in nature -Resolved. Pt. is back to baseline, she is able to converse appropriately #MRSA bacteremia/sepsis - Continue IV Vanco - Follow as per ID - assistance appreciated -TTE negative for vegetations - MARIANA planned for tomorrow schedule for today - Increase WBC of 18.4 today, yesterday it was 12.8 -Increase ESR, will consider posible osteomylitis if ESR continues to raise #Chronic Hep C - ALP elevated otherwise LFT WNL -Liver US ordered = hepatomegaly -Hepatitis C quantitative by PCR ordered, hepatitis C viral genotype, hepatitis C fibrosure -Will most likely need Hep C treatment once is IVDU free #Wrist and Shoulder Pain - tenosynovitis noted on imaging of wrist - ortho c/s appreciated - aspirates unrevealing - continue to follow clinically #Hyponatremia -Resolved -Nephrology has signed off #Thrombocytopenia -Improved today - avoid heparin products #Lactic acidosis -Resolved #Tobacco abuse -Nicotine replacement therapy #Polysubstance abuse -Tested positive for opiates, amphetamine and cannabis -Will monitor for withdrawal #Hypokalemia - Replacement ordered #Multiple psych problems -Will consult psych once patient is stable #DVT - mechanical prophylaxis Dispo: will require extended IV Vanco, unable to provide PICC line given IVDA; PFS c/s pending; ID f/u VS,Fishbone, I+O VS, Fishbone, I+O Laboratory Tests 1/27/20 06:47 Vital Signs Date Time Temp Pulse Resp B/P (MAP) Pulse Ox O2 Delivery O2 Flow Rate FiO2 04/03/19 08:00 98.0 119 18 132/77 (95) 95 Room Air 03/31/19 07:00 2.0 I&O- Last 24 Hours up to 6 AM 04/03/19 05:59 Intake Total 910 ml Output Total 1975 ml Balance -1065 ml JAVIER ORONA DO Apr 03, 2019 09:01
[2019-04-03] MEDS: NICOTINE 7 MG/24 HR TRANSDERMAL TD SCH (10:15)
[2019-04-03 12:00] VITALS: BP 107/70
[2019-04-03] MEDS: VANCOMYCIN HCL 750 MG, VIAL MATE ADAPTER 1 EACH in D5W 250 ML IV SCH (12:48)
[2019-04-03] MEDS ORDERED: PROHANCE 279.3MG/ML 5ML VIAL (A9576) As Ordered ONE (14:24)
[2019-04-03 16:00] VITALS: BP 138/76
[2019-04-03 20:00] VITALS: BP 131/75
[2019-04-03] MEDS ORDERED: LIDOCAINE 2% INJ 100 MG/5 ML SDV (FOR ANES.) As Ordered ONE (20:59)
[2019-04-03] MEDS ORDERED: propofoL 500 MG/50 ML VIAL As Ordered ONE (20:59)
[2019-04-03] MEDS ORDERED: LIDOCAINE VISCOUS 2% SOLN 15ML UDC As Ordered ONE (21:15)
--- NOTE | 2019-04-03 22:24 | T-ECHO ---
DATE OF PROCEDURE: 04/03/2019 REFERRING PHYSICIAN: Dr. Reilly Kim PREOPERATIVE DIAGNOSIS: Methicillin-sensitive Staphylococcus aureus bacteremia. POSTOPERATIVE DIAGNOSIS: Methicillin-sensitive Staphylococcus aureus bacteremia. FINDINGS: Transesophageal (TE) attempts abandoned due to inability to get the TE probe into the esophagus. PROCEDURE PERFORMED BY: Milind Mtz MD PHOTOVOLTAIC FABRICATION TECHNICIAN: None. IV SEDATION: Propofol per BELL RINGER. COMPLICATIONS: None. DESCRIPTION OF PROCEDURE: The patient received viscous lidocaine to gargle. Following this, she received propofol IV per BELL RINGER. After receiving adequate sedation, multiple attempts at esophageal intubation with a transesophageal echocardiogram probe were made by Dr. Mtz, which were unsuccessful. I understand the patient had previous cervical spine plate. The procedure was abandoned by Dr. Mtz due to inability to get the transesophageal probe into the esophagus.
[2019-04-03] MEDS: RAMELTEON 8 MG TAB (ROZEREM) PO SCH (22:44)
[2019-04-03] MEDS: SODIUM CHLORIDE 0.9% INJ 10 ML SYR IV SCH (22:45)
[2019-04-04] VITALS: BP 120/65
[2019-04-04] MEDS: VANCOMYCIN HCL 750 MG, VIAL MATE ADAPTER 1 EACH in D5W 250 ML IV SCH ×2 (00:47→12:25)
[2019-04-04] MEDS: NORCO, ANEXSIA 5/325MG TABLET (HYDROcodone/ACETAMINOPHEN) PO PRN ×5 (03:14→20:31)
[2019-04-04 04:00] VITALS: BP 121/71
[2019-04-04 05:23] LABS: HEMATOCRIT 25.3 % (36.0-47.0); HEMOGLOBIN 8.1 g/dl (12.0-15.5); MEAN CORPUSCULAR VOLUME 81.1 fl (80.0-96.0); PLATELET COUNT, AUTOMATED 120 10^3/uL (150-450); RED BLOOD COUNT 3.12 10^6/uL (4.00-5.40)
[2019-04-04] MEDS: ACETAMINOPHEN TAB 650MG DOSE (2X325MG) PO PRN (05:28)
[2019-04-04] MEDS: SLF 3 ML SYR IV SCH ×3 (05:28→22:00)
[2019-04-04 05:41] LABS: ERYTHROCYTE SEDIMENTATION RATE 127 mm/hr (0-20)
[2019-04-04 05:47] LABS: BLOOD UREA NITROGEN 14 MG/DL (7-18); CALCIUM LEVEL 6.9 MG/DL (8.5-10.1); CARBON DIOXIDE LEVEL 27 MEQ/L (21-32); CHLORIDE LEVEL 105 MEQ/L (98-107); CREATININE FOR GFR 0.84 MG/DL (0.55-1.30); GLOMERULAR FILTRATION RATE > 60.0 (>58); GLUCOSE, FASTING 96 MG/DL (70-100); POTASSIUM SERUM 3.3 MEQ/L (3.5-5.1); SODIUM LEVEL 137 MEQ/L (136-145)
[2019-04-04] MEDS: SODIUM CHLORIDE 0.9% INJ 10 ML SYR IV SCH ×3 (06:09→22:31)
--- NOTE | 2019-04-04 06:21 | IPN ---
DATE: 04/03/2019 I did a repeat evaluation today of the patient's left shoulder and right wrist. At this point, patient states her pain is unchanged. She does remember at this point that she does have longstanding wrist pain and this is no different than her normal. She is able to use both her right and left arm. She does complain of more significant pain over the anterior left-sided chest along her clavicle towards the base of her neck. She states it is extremely tender to touch and hurts when she moves her left shoulder. The pain is about 7 or 8 out 10 and is sharp in nature. She also complains of some redness and swelling in the area. She denies any fevers, chills, nausea, or vomiting. VITAL SIGNS: Patient's temperature is 97.7, pulse of 100, respiratory rate of 15, blood pressure 138/76 at 4 p.m., pulse oximetry 97% on room air. PHYSICAL EXAMINATION: She is able to tolerate active range of motion of both the left shoulder and right wrist with bilateral sensation intact to light touch superficial sensory branch of radial nerve, median nerve, ulnar nerve. Positive anterior interosseous nerve (AIN), posterior interosseous nerve (PIN), and ulnar motor nerve function. Skin is intact. Radial pulse increased rate regular rhythm. Patient is tender to palpation over the left clavicle, especially as you progress medially towards the sternoclavicular joint where she has areas of erythema surrounding her neck and superior chest. No fluctuance appreciated. MRI of the chest reviewed. This was reviewed by myself along with discussion with the radiologist. At this point, we do not appreciate any dedicated collection that would be amenable to drainage. There does appear to be increased inflammation superior to the clavicle with it most significantly towards the mediastinum over the sternoclavicular (SC) joint. The laboratory values have increased white cell count at 18.4, which is up from 12.8 and 10.2 over the last few days, along with increased erythrocyte sedimentation rate (ESR) to 127, slightly down from 04/02/2019 value of 140 and increased from 04/01/2019 value of 70. ASSESSMENT AND PLAN: This is a 48-year-old female with history of IV drug abuse who has history of bacteremia. At this point in time, with regards to her left shoulder and right wrist, I do not believe there is any suspicion for septic arthritis. However, her sternoclavicular joint does concern me. At this time, I do not think there is an organized collection that would be amenable to irrigation and drainage. However, I do think this is something that should continue to be monitored. If it worsens for any reason or other workup continues to be negative, I encourage her to reach back out potentially with a repeat MRI that is more focused upon the affected area and not a complete chest MRI, rather a more discrete neck MRI that includes the sternoclavicular joint, both with and without contrast should the patient be able to tolerate contrast. In the meantime, she is weightbearing as tolerated to all extremities with no restrictions. We will defer the rest of care to the medicine team. There has not been a repeat C-reactive protein (CRP) since 24.3, but recommend that the primary team continue with trending CRP, ESR, and white blood cell count. MTDD
[2019-04-04] MEDS ORDERED: POTASSIUM CHLORIDE 10 MEQ SR TABLET PO ONE (07:15)
--- NOTE | 2019-04-04 07:31 | REP ---
MRI CHEST WITH AND WITHOUT CONTRAST: HISTORY: Swelling and pain in the region of the left clavicle. Multiple sequences are obtained in the axial, sharma and sagittal planes prior to and following the intravenous administration of 10 mL ProHance. Images are centered on the left clavicle. Study is limited due to excessive patient motion. The left clavicle itself demonstrates no abnormal signal or enhancement, with no evidence of osteomyelitis. There is also no abnormal signal or enhancement in the visualized left humerus and scapula. There is ill-defined edema in the soft tissues surrounding the left clavicle a small amount of fluid is seen tracking along surrounding fascial planes particularly in the supraclavicular region. No focal abscess or drainable fluid collection is seen. There are areas of ill-defined soft tissue enhancement surrounding the clavicle suggesting cellulitis. There is a small amount of fluid in the subdeltoid bursa. IMPRESSION: Soft tissue edema and cellulitis in the soft tissues of the left chest wall surrounding the clavicle, particularly in the supraclavicular region. Small amount of scattered fascial plane fluid is seen diffusely without a focal drainable fluid collection or abscess identified. Small amount of fluid is seen in the subdeltoid bursa. There is no evidence of osteomyelitis of the left clavicle. Electronically Signed by Josué Ramirez MD 04/05/2019 01:25 P
[2019-04-04] MEDS: NICOTINE 7 MG/24 HR TRANSDERMAL TD SCH (07:59)
[2019-04-04] MEDS: MELOXICAM (MOBIC) 7.5 MG TAB PO SCH (07:59)
[2019-04-04 08:00] VITALS: BP 118/65
[2019-04-04 09:17] LABS: MAGNESIUM LEVEL 2.4 MG/DL (1.8-2.4)
--- NOTE | 2019-04-04 10:20 | IPNPDOC ---
Text Note Date of Service The patient was seen on 04/04/19. NOTE S: Patient examined at bedside this morning. She stated her shoulder and clavicle pain has significantly decreased. She had no overnight activities. Patient did fail MARIANA due to inability to advance the scope past esophagus. O: GEN: Alert, conversant, pleasant, female HEENT: skin excoriations around the face, right IJ TLC in place, no signs of infection with right IJ, neck in non tender, oral thrush noted on patient's tongue on her left side MSK: No weakness, no erythema noted around clavicle Heart: +S1S2, RRR, no murmurs, rubs or gallops LUNGS: Clear to auscultation bilaterally. No wheezes, rales, or rhonchi. EXT: Multiple track perez, no edema CHEST MRI: Soft tissue edema and cellulitis in the soft tissues of the left chest wall surrounding the clavicle, particularly in the supraclavicular region. Small amount of scattered fascial plane fluid is seen diffusely without a focal drainable fluid collection or abscess identified. Small amount of fluid is seen in the subdeltoid bursa. There is no evidence of osteomyelitis of the left clavicle. A/P: 48-year-old female, with PMHx Hep C, multiple admissions for depression, polysubstance abuse including Chantel, methamphetamine, and IV drug use. Presented by ambulance for altered mental status, lethargy, somnolence. #Toxic Metabolic encephalopathy secondary to bacteremia/sepsis, polysubstance abuse, psychiatric illness, possible infective endocarditis - multifactorial in nature -Resolved. Pt. is back to baseline, she is able to converse appropriately, no sign of confusion #Thrush, -nystatin swish and swallow #MRSA bacteremia/sepsis - Continue IV Vanco - Follow as per ID - assistance appreciated -TTE negative for vegetations -MARIANA failed due to inability to get the transesophageal probe into the esophagus - Decreased WBC to 15.0 from 18.4 -ESR 127, unchanged from yesterday -CRP pending -Blood culture negative on 04/02/2019, and 04/03/2019 no growth. Will likely need 2 weeks of antibiotic therapy for treatment -Still concerned for possibility of osteomyelitis. Will consider MRI of the cervical spine #Chronic Hep C - ALP elevated otherwise LFT WNL -Liver US ordered = hepatomegaly -Hepatitis C quantitative by PCR ordered, hepatitis C viral genotype, hepatitis C fibrosure -Will most likely need Hep C treatment once is IVDU free #Wrist and Shoulder Pain -Ortho consult: -not suspicion of septic arthritis, per orthopedic surgeon. -Monitor sternoclavicular joint: If worsening. Consider MRI of the neck but includes a sternoclavicular joints, both with and without contrast. -MRI: Soft tissue edema and cellulitis in the soft tissues of the left chest wall surrounding the clavicle -Pain control with acetaminophen, mobility, and [place] #Hyponatremia -Resolved -Nephrology has signed off #Thrombocytopenia -Improving - avoid heparin products #Hypocalcemia - Corrected calcium is within normal limits #Lactic acidosis -Resolved #Tobacco abuse -Nicotine replacement therapy #Polysubstance abuse -Tested positive for opiates, amphetamine and cannabis -Will monitor for withdrawal #Hypokalemia - Replacement ordered #Multiple psych problems -Will consult psych once patient is stable #DVT - mechanical prophylaxis Dispo: will require extended IV Vanco, unable to provide PICC line given IVDA; PFS c/s pending; ID f/u VS,Fishbone, I+O VS, Fishbone, I+O Laboratory Tests 04/04/19 05:10 Vital Signs Date Time Temp Pulse Resp B/P (MAP) Pulse Ox O2 Delivery O2 Flow Rate FiO2 04/04/19 07:59 20 04/04/19 04:00 98.1 101 121/71 (88) 96 Room Air 04/03/19 21:53 2 I&O- Last 24 Hours up to 6 AM 04/04/19 06:00 Intake Total 1575 ml Output Total 1100 ml Balance 475 ml JAIVER ORONA DO Apr 04, 2019 08:22
[2019-04-04 12:00] VITALS: BP 132/68
[2019-04-04] MEDS: NYSTATIN 500,000 U/5 ML SUSP UDC PO SCH ×4 (12:23→20:31)
--- NOTE | 2019-04-04 13:33 | IPN ---
DATE: 04/03/2019 Sujey feels she is feeling better, but she still has significant pain especially in the wrist and the left shoulder area at the sternoclavicular joint. The patient has just had MRI done today and is scheduled to have a transesophageal echocardiogram tonight. She remains nothing by mouth (n.p.o.). She has been afebrile with no nausea, vomiting or diarrhea. Her last fever was at least three days ago. No nausea or vomiting. On physical exam, she is a sick looking female in no acute distress. Temperature is 97.7, pulse 100-120, respirations 15, blood pressure 138/76 and oxygen saturation 97% on room air. Heart: Normal S1, S2. Tachycardic. No murmurs appreciated. Lungs: Diminished breath sounds at the bases. No murmurs or rhonchi. Abdomen: Soft, nontender. No visceromegaly. Extremities: No clubbing, cyanosis or edema. Skin has multiple scabs, scratch perez, multiple excoriations, and multiple lesions with hypopigmented lesions on the arms and the upper back. Right wrist swelling has improved. She has normal range of motion of the wrist. Shoulder has no range of motion. Her sternoclavicular joint on the left side is swollen, red and tender to touch. LABORATORY DATA: Sodium 136, potassium 3.3, chloride 102, bicarb 28, BUN 12, creatinine 0.88, calcium 7.6, bilirubin 0.7, AST 19, ALT 9, alkaline phosphatase 203, total protein 5.7, albumin 1.5. White count 18.4, hemoglobin 8.5, hematocrit 24.9, platelets 116. ESR 127. CRP 24.3. Vancomycin trough was 24.6. Hepatitis C antibody more than 11. HIV negative. Hepatitis C RNA pending. Blood cultures were positive on March 30, three sets, and March 31, one out of two was positive, April 01, two out of two were positive, April 02 one is negative, and April 03 is pending. Chest MRI still pending. Wrist x-ray showed erosive arthritis. IMPRESSION: This is a 48-year-old female admitted with methicillin-resistant Staphylococcus aureus (MRSA) sepsis and bacteremia with very high chances that she has right-sided endocarditis. The patient is scheduled for a transesophageal echocardiogram (MARIANA) today. She also has evidence of sternoclavicular septic arthritis, left side, which is the cause of her shoulder pain. Clinically, she does not have a septic joint of the right wrist, but maybe a tenosynovitis from drug use. She is on vancomycin 450 mg every 12 hours. Finally, one set of blood cultures is negative. PLAN: Continue IV vancomycin. Transesophageal echocardiogram today. Will review chest MRI tomorrow. She may need irrigation and debridement (I and D) of the sternoclavicular joint if there is a large abscess as she has concerning increased white count. This needs to be followed up by Dr. Cannon. As for chronic hepatitis C, her LFTs are normal so she may have had spontaneous bacteremia, but will wait for the viral load. She had been vaccinated for hepatitis A during this hospitalization.
[2019-04-04 16:00] VITALS: BP 127/78
--- NOTE | 2019-04-04 16:58 | IPNPDOC ---
Text Note Date of Service The patient was seen on 04/04/19. NOTE Subjective: Patient is a 48-year-old female, past medical history significant for hepatitis C, IV heroin, Chantel and methamphetamines use. Patient was originally brought into the hospital by her friend noted the patient had abrupt change in mental status which included slurring of speech and not acting herself. No nausea, vomiting or diarrhea, abdominal pain, chest pain. Patient was found to be febrile, hypertensive, tachycardic, tachypneic with oxygen saturations 94%. Patient was diagnosed with severe sepsis, found to have MRSA bacteremia and started on IV vancomycin addition to Levaquin and admitted to ICU. Head CT was negative. TTE was performed which did not indicate any significant valvular abnormalities other than trace tricuspid regurgitation. Trace pericardial effusion, no evidence of tamponade. No valvular vegetations. MARIANA ordered and unable to be completed as the scope was unable to pass the esophagus. On 04/03/19, patient continued to report significant pain in her wrist and left shoulder particularly at the SCJ. Orthopedics was consulted and ordered an MRI of the patient's chest. Imaging demonstrates some soft tissue edema and cellulitis left chest wall surrounding the clavicle. No evidence of osteomyelitis left clavicle. Wrist x-rays demonstrated erosive arthritis. Per review of the patient's labs, her white count is decreased to 15 from 18.4 yesterday. Initial C-reactive protein 24.3. ESR remains elevated at 127, those improved from 140 found on 04/02/19. Hepatitis B and see serologies pending. HIV negative. Today, patient reports that she is feeling better overall. Though, she continues to complain regarding her left shoulder pain. Since prior examination, it appears her pain is becoming more localized to her left SC joint. She denies any recent fevers, chills, nausea or vomiting. She has not had any chest pain, sh ortness of breath or difficulty breathing. She denies any palpitations. No abdominal pain, changing in stooling habits. No difficulty urinating. No numbness or tingling. Objective: Vitals: Temperature, 97.8. Pulse, 98. Respiratory rate, 14. Blood pressure, 132/68. Pulse ox, 97% on room air. HEENT: Normocephalic, atraumatic, EOMI, sclera nonicteric, mucous membranes moist Neck: Right-sided central line catheter noted. No JVD, cervical lymphadenopathy. Heart: Normal S1 and S2, tachycardic, no murmurs appreciated Lungs: Diminished breath sounds at the bases bilaterally. No other murmurs wheezing or rhonchi Chest: Tender, erythematous L SC joint. Some anterior trapezius tenderness. L shoulder ROM intact. Abdomen: Soft, nontender, nondistended, no hepatosplenomegaly Extremities: No clubbing cyanosis or edema. 2+ distal pulses bilaterally. Skin: Multiple scabs and excoriations in various stages of healing all over patient's body. Hypopigmented lesions on arms, legs and upper back bilaterally. Decreased swelling of patient's right wrist. Normal range of motion. Shoulder does not have a range of motion. Sternoclavicular joint on the left side swollen and red and tender to touch. Assessment: Patient is a 28-year-old female, history of hepatitis C with IV heroin, methamphetamine and Chantel use. Patient was found to have sepsis with MRSA bacteremia after presenting to the emergency department with altered mental status, hypertension, tachycardia and tachypnea in the setting of a fever. TTE negative for valvular vegetations. MARIANA attempted, though unable to pass the esophagus. Despite this, highly suspect bacterial endocarditis. Patient continues to report sternoclavicular joint pain. Plan: #Patient currently on vancomycin for 50 mg every 12 hours. Despite negative TTE and failed MARIANA, suspect patient does in fact have infective endocarditis given multiple days of POS cultures. In addition, patient does have cervical hardware from spinal stenosis repair. Patient will require 4 weeks of antibiotic therapy from first negative culture on 04/02/19. PICC line will be placed tomorrow. Continue patient on IV vancomycin for suspected MRSA endocarditis. #Suspected Septic SC joint. MRI significant for increased inflammation superior clavicle towards the mediastinum over the SC joint. No obvious collection amenable to drainage. Low suspicion of septic arthritis and patient's shoulders and right wrist. SC joint should receive continuing monitoring following discharge with repeat MRI #Chronic hepatitis C LFTs within normal limits. Viral load ordered. Patient has been vaccinated for hepatitis A. VS,Fishbone, I+O VS, Fishbone, I+O Laboratory Tests 04/04/19 05:10 Vital Signs Date Time Temp Pulse Resp B/P (MAP) Pulse Ox O2 Delivery O2 Flow Rate FiO2 04/04/19 12:25 20 04/04/19 12:00 97.8 98 132/68 (89) 97 Room Air 04/03/19 21:53 2 I&O- Last 24 Hours up to 6 AM 04/04/19 06:00 Intake Total 1575 ml Output Total 1100 ml Balance 475 ml GME ATTESTATION GME ATTESTATION My faculty preceptor for this patient encounter was physically present during the encounter and was fully available. All aspects of the patient interview, examination, medical decision making process, and medical care plan development were reviewed and approved by the faculty preceptor. The faculty preceptor is aware and concurs with the plan as stated in the body of this note and will attest to such by his/her cosignature. GAETANO RED DO Apr 04, 2019 15:42
[2019-04-04 20:00] VITALS: BP 110/56
[2019-04-04] MEDS: RAMELTEON 8 MG TAB (ROZEREM) PO SCH (20:30)
[2019-04-04] MEDS: ONDANSETRON 4 MG TAB (S0181) PO PRN (20:30)
[2019-04-05] VITALS (7 sets, daily range): BP systolic 124–135; BP diastolic 72–84
[2019-04-05] MEDS: VANCOMYCIN HCL 750 MG, VIAL MATE ADAPTER 1 EACH in D5W 250 ML IV SCH (00:31)
[2019-04-05] MEDS: NORCO, ANEXSIA 5/325MG TABLET (HYDROcodone/ACETAMINOPHEN) PO PRN ×6 (00:33→21:38)
[2019-04-05] MEDS ORDERED: diphenhydrAMINE 25 MG CAP PO ONE (01:00)
[2019-04-05] MEDS: ACETAMINOPHEN TAB 650MG DOSE (2X325MG) PO PRN ×3 (04:04→16:37)
[2019-04-05] MEDS: SLF 3 ML SYR IV SCH ×3 (04:42→21:38)
[2019-04-05] MEDS: SODIUM CHLORIDE 0.9% INJ 10 ML SYR IV SCH ×4 (04:42→21:39)
[2019-04-05 05:10] LABS: HEMATOCRIT 23.3 % (36.0-47.0); HEMOGLOBIN 7.6 g/dl (12.0-15.5); MEAN CORPUSCULAR HEMOGLOBIN 25.9 pg (27.0-33.0); MEAN CORPUSCULAR HGB CONC 32.6 g/dl (32.0-36.5); MEAN CORPUSCULAR VOLUME 79.5 fl (80.0-96.0); PLATELET COUNT, AUTOMATED 129 10^3/uL (150-450); RED BLOOD COUNT 2.93 10^6/uL (4.00-5.40); WHITE BLOOD COUNT 13.2 10^3/uL (4.0-10.0)
[2019-04-05 05:33] LABS: ERYTHROCYTE SEDIMENTATION RATE 126 mm/hr (0-20)
[2019-04-05 05:34] LABS: BLOOD UREA NITROGEN 7 MG/DL (7-18); CALCIUM LEVEL 6.8 MG/DL (8.5-10.1); CARBON DIOXIDE LEVEL 26 MEQ/L (21-32); CHLORIDE LEVEL 103 MEQ/L (98-107); CREATININE FOR GFR 0.83 MG/DL (0.55-1.30); GLOMERULAR FILTRATION RATE > 60.0 (>58); GLUCOSE, FASTING 133 MG/DL (70-100); POTASSIUM SERUM 3.2 MEQ/L (3.5-5.1); SODIUM LEVEL 135 MEQ/L (136-145)
[2019-04-05] MEDS: POTASSIUM CHLORIDE 10 MEQ SR TABLET PO SCH ×2 (08:47→21:38)
[2019-04-05] MEDS: NICOTINE 7 MG/24 HR TRANSDERMAL TD SCH (08:47)
[2019-04-05] MEDS: MELOXICAM (MOBIC) 7.5 MG TAB PO SCH (08:47)
[2019-04-05] MEDS: NYSTATIN 500,000 U/5 ML SUSP UDC PO SCH ×4 (08:47→21:38)
[2019-04-05] MEDS: VANCOMYCIN HCL 1,000 MG, VIAL MATE ADAPTER 1 EACH in D5W 250 ML IV SCH (12:05)
--- NOTE | 2019-04-05 12:35 | IPNPDOC ---
Text Note Date of Service The patient was seen on 04/05/19. NOTE S: Patient was examined at bedside this morning. She stated that her neck pain has reduced, although it continues to somewhat bothers her. She also complained of irritation in her throat with swallowing. Denied any difficulty with by mouth intake, denied inability to swallow secretions. O: VITALS : As below GEN: Alert, no pleasant distress, resting comfortably in bed HEENT: Normocephalic, atraumatic, moist mucous membranes, anicteric eyes, improved lower thrush on patient's tongue as compared to yesterday NECK: No JVD, no lymphadenopathy, right IJ TLC in place, no signs of infection with right IJ, Swelling at the left sternoclavicular joint now a little worse w ith more lateralisation to the right. MSK: No weakness, no erythema noted around clavicle Heart: +S1S2, RRR, no murmurs , rub or gallop LUNGS no wheezing, no rhonchi, right basal crackles, ABDOMEN: soft, nontender, normal bowel sounds. SKIN: skin excoriations around the face, and track perez EXT: Multiple track perez, no edema, IV sites placed A/P: 48-year-old female, with PMHx Hep C, multiple admissions for depression, polysubstance abuse including Chantel, methamphetamine, and IV drug use. Presented by ambulance for altered mental status, lethargy, somnolence. #MRSA bacteremia with highly probable infective endocarditis - Continue IV Vanco - Follow as per ID - assistance appreciated -TTE negative for vegetations -MARIANA failed due to inability to get the transesophageal probe into the esophagus due to presence of cervical plates So infective endocarditis cannot be ruled out. - WBC continues to trend down -Blood culture negative on 04/02/2019, and 04/03/2019 no growth. Will need 4 weeks of antibiotics starting from April 02. 2 weeks in the hospital followed by 2 weeks as an outpatient with Nessa -PICC line to be placed today, will remove patient's central line. A PICC line has been placed. Patient will need long-term antibiotics. #Toxic Metabolic encephalopathy secondary to bacteremia/sepsis, polysubstance abuse, psychiatric illness - multifactorial in nature -Resolved. Pt. is back to baseline, she is able to converse appropriately, no sign of confusion # Left Steroclavicular joint pain 2/2 posible septic arthritis -MRI: Soft tissue edema and cellulitis in the soft tissues of the left chest wall surrounding the clavicle -Repeat MRI of the neck but includes a sternoclavicular joints, both with and without contrast. #Thrush, -nystatin swish and swallow # Microcystic anemia, patient continues to have decreasing hemoglobin and hemoglobin respectively. Will investigate with iron studies, transferrin, ferritin, reticulocyte count and TIBC -No need for transfusion at this moment. Patient is symptomatic. We'll continue to monitor. Will transfuse as necessary. #Chronic Hep C -Will most likely need Hep C treatment once is IVDU free #Wrist and Shoulder Pain -Ortho consult: -no suspicion of septic arthritis, per orthopedic surgeon. -Pain control with acetaminophen, mobility, and [place] #Hyponatremia -Resolved -No signs of neurological deficit -Nephrology has signed off #Thrombocytopenia -2/2 Etoh abuse, continues to improve #Hypocalcemia - Corrected calcium is within normal limits #Lactic acidosis -Resolved #Tobacco abuse -Nicotine replacement therapy #Polysubstance abuse -Tested positive for opiates, amphetamine and cannabis -No signs of withdrawal during hospital stay #Hypokalemia - Oral replacements off #Multiple psych problems will need referral to psych as outpatient. 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 #DVT - mechanical prophylaxis Dispo: will require extended IV Vanco, unable to provide PICC line given IVDA; PFS c/s pending; ID f/u VS,Fishbone, I+O VS, Fishbone, I+O Laboratory Tests 04/05/19 04:45 Vital Signs Date Time Temp Pulse Resp B/P (MAP) Pulse Ox O2 Delivery O2 Flow Rate FiO2 04/05/19 05:12 18 04/05/19 04:00 98.9 102 124/72 (89) 95 Room Air 04/03/19 21:53 2 I&O- Last 24 Hours up to 6 AM 04/05/19 06:00 Intake Total 1435 ml Output Total 1900 ml Balance -465 ml Attending Note I personally saw and evaluated the patient. I agree with the findings and the plan of care documented above in the resident's/ medical student's note. JAVIER ORONA DO Apr 05, 2019 08:06 ORAL TORIBIO MD Apr 05, 2019 22:15
[2019-04-05 12:48] LABS: FERRITIN 289 NG/ML (8-252); FOLATE 6.5 NG/ML; IRON (FE) 19 UG/DL (50-170); PERCENT SATURATION 8.5 % (13.2-45.0); TOTAL IRON BINDING CAPACITY 223 UG/DL (250-450); VITAMIN B12 LEVEL > 2000 PG/ML
[2019-04-05] MEDS ORDERED: LIDOCAINE 1% MDV 20ML VIAL As Ordered ONE (15:07)
[2019-04-05] MEDS: RAMELTEON 8 MG TAB (ROZEREM) PO SCH (21:38)
--- NOTE | 2019-04-05 22:33 | REP ---
PICC line insertion under ultrasound guidance. The procedure was performed by ALEXYS Alvarado, under the direct supervision of Dr. Ramirez. The risks and benefits of the procedure were explained to the patient and informed consent was obtained both verbally and written. Directly prior to the start of the procedure, a formal timeout was completed in the procedure room. The left basilic vein was localized using ultrasound guidance. The skin was prepped and draped in the sterile fashion. 1 ml 1% lidocaine 10 mg/ml was used as a local anesthetic. Using ultrasound guidance the left basilic vein was cannulated and a 0.018 guidewire was inserted and advanced to the SVC using fluoroscopic guidance. The needle was removed and a 4.5 Portuguese dilator and peel-away sheath was inserted over the guidewire. A 4.5 Portuguese single lumen catheter was cut to the length of 35 cm. The dilator was removed and the catheter was inserted over the guide wire with the tip ending in the SVC. The peel-away sheath was removed and the catheter was flushed with heparinized saline as per hospital protocol. The catheter was affixed to the skin and a sterile dressing was applied. The patient tolerated the procedure well and there were no immediate complications. 0.2 minutes of fluoroscopy time was utilized for this procedure. Some fluoroscopic images are performed with last image hold technology. These images require no additional radiation. Reviewed by ALEXYS Saravia 04/05/2019 04:18 P Electronically Signed by Josué Ramirez MD 04/05/2019 10:24 P
[2019-04-06 00:06] LABS: HEPATITIS B CORE ANTIBODY IGG Negative (Negative); HEPATITIS C QUANTITATION <15 IU/mL (.)
[2019-04-06] MEDS: VANCOMYCIN HCL 1,000 MG, VIAL MATE ADAPTER 1 EACH in D5W 250 ML IV SCH ×3 (00:07→23:45)
[2019-04-06] MEDS: NORCO, ANEXSIA 5/325MG TABLET (HYDROcodone/ACETAMINOPHEN) PO PRN ×6 (01:50→23:09)
[2019-04-06 04:00] VITALS: BP 120/70
[2019-04-06] MEDS: SLF 3 ML SYR IV SCH (05:09)
[2019-04-06] MEDS: SODIUM CHLORIDE 0.9% INJ 10 ML SYR IV SCH ×5 (05:10→20:28)
[2019-04-06 06:14] LABS: HEMATOCRIT 23.6 % (36.0-47.0); HEMOGLOBIN 7.7 g/dl (12.0-15.5); MEAN CORPUSCULAR HEMOGLOBIN 26.2 pg (27.0-33.0); MEAN CORPUSCULAR HGB CONC 32.6 g/dl (32.0-36.5); MEAN CORPUSCULAR VOLUME 80.3 fl (80.0-96.0); PLATELET COUNT, AUTOMATED 164 10^3/uL (150-450); RED BLOOD COUNT 2.94 10^6/uL (4.00-5.40); WHITE BLOOD COUNT 12.6 10^3/uL (4.0-10.0)
[2019-04-06 07:31] LABS: ERYTHROCYTE SEDIMENTATION RATE 128 mm/hr (0-20)
[2019-04-06 08:00] VITALS: BP 122/70
[2019-04-06] MEDS: MELOXICAM (MOBIC) 7.5 MG TAB PO SCH (08:00)
[2019-04-06] MEDS: NYSTATIN 500,000 U/5 ML SUSP UDC PO SCH ×4 (08:00→20:27)
[2019-04-06] MEDS: POTASSIUM CHLORIDE 10 MEQ SR TABLET PO SCH ×2 (08:00→20:27)
[2019-04-06] MEDS: NICOTINE 7 MG/24 HR TRANSDERMAL TD SCH (08:00)
[2019-04-06 08:26] LABS: BLOOD UREA NITROGEN 5 MG/DL (7-18); CALCIUM LEVEL 6.9 MG/DL (8.5-10.1); CARBON DIOXIDE LEVEL 24 MEQ/L (21-32); CHLORIDE LEVEL 107 MEQ/L (98-107); GLOMERULAR FILTRATION RATE > 60.0 (>58); GLUCOSE, FASTING 106 MG/DL (70-100); POTASSIUM SERUM 3.7 MEQ/L (3.5-5.1); SODIUM LEVEL 137 MEQ/L (136-145)
[2019-04-06 10:00] VITALS: BP 129/94
--- NOTE | 2019-04-06 10:03 | IPNPDOC ---
Text Note Date of Service The patient was seen on 04/06/19. NOTE S: Patient was examined at bedside. She has no acute complaints. Her clavicle pain continues to persist. Has no difficulty with swallowing. The PICC line was placed yesterday. Patient tolerated procedure without any difficulty. Her central line was subsequently removed O: VITALS : As below GEN: Alert, resting comfortably in bed. HEENT: Pupils round, reactive to light, very minimal thrush in patient's oral cavity, NECK: No JVD, no lymphadenopathy, tender to palpate along the clavicle, no increased redness, Heart: +S1S2, no murmurs LUNGS no wheezing, no rhonchi, right basal crackles, to auscultate SKIN: skin excoriations around the face, and track perez EXT: Multiple track perez, no edema, IV sites placed A/P: 48-year-old female, with PMHx Hep C, multiple admissions for depression, polysubstance abuse including Chantel, methamphetamine, and IV drug use. Presented by ambulance for altered mental status, lethargy, somnolence. #MRSA bacteremia with highly probable infective endocarditis - ID consultation - Continue IV Vanco -TTE negative for vegetations -MARIANA failed due to inability to get the transesophageal probe into the esophagus due to presence of cervical plates So infective endocarditis cannot be ruled out. - WBC continues to trend down -Blood culture negative on 04/02/2019, and 04/03/2019 no growth. Will need 4 weeks of antibiotics starting from April 02. 2 weeks in the hospital followed by 2 weeks as an outpatient with Nessa. This is week 1 -PICC line placed for IV antibiotics -Improving leukocytosis #Anemia of chronic disease will continue to monitor during treatment process -Iron 19, low -Tansferrin, TIBC 203, low - Ferritin 289 -No need for transfusion at this moment. Patient is asymptomatic. We'll continue to monitor. Will transfuse as necessary. # Left Steroclavicular joint pain 2/2 posible septic arthritis -MRI: Soft tissue edema and cellulitis in the soft tissues of the left chest wall surrounding the clavicle -Repeat MRI of the neck but includes a sternoclavicular joints, both with and without contrast prior to discharge -Monitor for pain and swelling #Toxic Metabolic encephalopathy secondary to bacteremia/sepsis, polysubstance abuse, psychiatric illness - multifactorial in nature -Resolved. Pt. is back to baseline, she is able to converse appropriately, no sign of confusion #Thrush, -nystatin swish and swallow #Chronic Hep C -Will most likely need Hep C treatment once is IVDU free - Has been vaccinated for hep A #Wrist and Shoulder Pain -Ortho consult: -no suspicion of septic arthritis, per orthopedic surgeon. -Pain control with acetaminophen, mobility, and [place] #Hyponatremia -Resolved -No signs of neurological deficit -Nephrology has signed off #Thrombocytopenia - Resolved #Hypocalcemia - Corrected calcium is within normal limits #Lactic acidosis -Resolved #Tobacco abuse -Nicotine replacement therapy #Polysubstance abuse -Tested positive for opiates, amphetamine and cannabis -No signs of withdrawal during hospital stay #Hypokalemia - Oral replacements off #Multiple psych problems will need referral to psych as outpatient. 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 #DVT - mechanical prophylaxis Dispo: will require extended IV Vanco, unable to provide PICC line given IVDA; PFS c/s pending; ID f/u VS,Fishbone, I+O VS, Fishbone, I+O Laboratory Tests 04/06/19 05:53 Vital Signs Date Time Temp Pulse Resp B/P (MAP) Pulse Ox O2 Delivery O2 Flow Rate FiO2 04/06/19 06:19 18 04/06/19 04:00 99.1 109 120/70 (87) 95 Room Air 04/03/19 21:53 2 I&O- Last 24 Hours up to 6 AM 04/06/19 05:59 Intake Total 1975 ml Output Total 2300 ml Balance -325 ml Attending Note I personally saw and evaluated the patient. I agree with the findings and the plan of care documented above in the resident's note. JAVIER ORONA DO Apr 06, 2019 08:02 ORAL TORIBIO MD Apr 07, 2019 10:25
--- NOTE | 2019-04-06 12:25 | PHACANCOPD ---
PHARMACY VANCOMYCIN DOSING Pt Demographics Demographics Patient Age:48 , Weight:61.500 , Gender: female Adjusted Body Weight Date: 04/02/19, Adjusted Body Weight: Kg Events Past 24 Hours Events Past 24 Hours: NO: Dialysis, Diuretic Therapy, Change in CrCl, Fever, Elevation in WBC, Pending Diagnostics, Pending Procedures, Other Vancomycin Vancomycin indication: MRSA bacteremia r/o endocarditis Vancomycin Target Ranges: 15-20 mcg/ml Vancomycin Load Y/N: Yes Load Dose Date Time Vancomycin Load Dose: 1000mg Date: 03/31 Time: ~[place] Vancomycin Dose Date: 03/31/19. Current Vancomycin Dose: [750mg IV q8h @08] Intermittent Dosing?: No Labs Micro Microbiology 04/03/19 Blood Culture - Preliminary, Resulted No Growth after 72 hours. All specime... 04/02/19 Blood Culture - Preliminary, Resulted No Growth after 72 hours. All specime... 04/01/19 Blood Culture - Final, Complete Staph.aureus Methicillin Resis 04/01/19 Blood Culture - Final, Complete Staph.aureus Methicillin Resis 03/31/19 Blood Culture - Final, Complete NO GROWTH AFTER 5 DAYS 03/31/19 Blood Culture - Final, Complete Staph.aureus Methicillin Resis 03/30/19 Blood Culture - Final, Complete Staph.aureus Methicillin Resis 03/30/19 Respiratory Virus Panel (PCR) ([facility]) - Final, Complete 03/30/19 Blood Culture - Final, Complete Staph.aureus Methicillin Resis Creatinine Clearance Date:04/02/19. Creatinine Clearance: [~56 ml/min]. Date:03/30/19. Creatinine Clearance: [~52 ml/min]. Pending Labs Repeat vanco trough scheduled 04/03 @07:00 Assessment and Plan Maintaining Current Dose?: Yes Reason for dose change: No Dose Change Pharmacist Note Pharmacist Note 04/06: Today is day 8 for patient being treated with Vancomycin for MRSA bacteremia. Her trough resulted today at 16.5, which is within goal range. Patient was unable to successfully obtain a MARIANA and therefore she will be treated for presumed endocarditis. She will require 4 weeks of antibiotic therapy from April 01, 2019. We will continue her on Vancomycin 1gm IV q12h. We will continue to monitor and make adjustments as necessary. Date: 04/02/19. Pharmacist note: pt was started on vancomycin on 03/31 for bacteremia, suspected endocarditis. She received a Vancomycin 1g loading dose followed by 750mg IV q8h. Vancomycin trough drawn before the 5th dose was 16.5 mcg/ml. Inflammatory markers have been trending up, pt is still mildly febrile. TTE was negative for vegetation, MARIANA is scheduled for tomorrow. Blood cultures have been positive for MRSA ([facility] = 1), repeat blood cultures are pending. I will repeat a trough tomorrow morning. We will continue to monitor and make adjustments as necessary. GERARDO MERCADO [facility]ARM[facility] Apr 06, 2019 12:25
[2019-04-06] MEDS: ACETAMINOPHEN TAB 650MG DOSE (2X325MG) PO PRN (12:34)
[2019-04-06 14:00] VITALS: BP 121/77
--- NOTE | 2019-04-06 16:41 | IPNPDOC ---
Date Seen The patient was seen on 04/06/19. Progress Note SUBJECTIVE: Patient is a 48-year-old female, with a past medical history of Hepatitis C, multiple admissions for depression and anxiety, polysubstance abuse including Chantel, methamphetamine, and IV drug use who presented by ambulance for altered mental status, lethargy, somnolence. Patient was seen twice- at 1:40 pm pt states she was crying and was extremely anxious and needed to be calmed down. She was seen again around 2:40 pm with her family present and stated that she was having a panic attack when I saw her initially. Overnight patient complained that she was feeling feverish and had a Tmax= 100.3 at 1 am. She has not had a fever since. Her clavicle pain continues to persist but she states it is improved. She endorses no difficulty with swallowing. The PICC line was placed in her left arm yesterday. Patient tolerated procedure without any difficulty. Her right IJ central line was subsequently removed. Pt denies nausea, vomiting, diarrhea, constipation, and hematuria. OBJECTIVE: VITALS : Please see below GENERAL: Pt examined in hospital bed with family present. No acute distress. AAOx3 HEENT: Minimal thrush in patient's oral cavity. NECK: No lymphadenopathy, tender to palpation along the clavicle but swelling and erythema have improved Heart: Regular rate and rhythm, +S1and + S2, no murmurs, rubs, or gallops appreciated. LUNGS: No wheezing or rhonchi appreciate. Crackles heard at the right base. SKIN: Multiple scabs and excoriations in various stages of healing all over patient's body. Hypopigmented lesions on arms, legs and upper back bilaterally. Shoulder does not have a range of motion. Sternoclavicular joint on the left side is less swollen and less erythematous. Pt's right IJ central line was removed, site is clean and dry. Pt has a PICC line in her left arm with some clotted blood seen in the Tegaderm. ASSESSMENT: This is a 48-year-old female, with a past medical history of Hepatitis C, multiple admissions for depression and anxiety, polysubstance abuse including Chantel, methamphetamine, and IV drug use who presented by amb ulance for altered mental status, lethargy, somnolence. MRSA bacteremia with probable infective endocarditis: - Continue IV Vancomycin for possible infective endocarditis. She also has left clavicular myositis/ abscess I suspect she will hace acute osteomyelitis in SC joint but MRI was not positive -Hepatitis C RNA negative will not need TX had hepA vaccine PLAN - Blood cultures were negative on 04/02/2019 and 04/03/2019 no growth. Patient will need 4 weeks of antibiotics with a start date of April 02 first negative culture. Plan is for antibiotics to be given for 2 weeks in the hospital f ollowed by 2 weeks as an outpatient with [facility] if her insurance authorizes medication. End of therapy set for April 30. GME ATTESTATION My faculty preceptor for this patient encounter was physically present during the encounter and was fully available. All aspects of the patient interview, examination, medical decision making process, and medical care plan development were reviewed and approved by the faculty preceptor. The faculty preceptor is aware and concurs with the plan as stated in the body of this note and will attest to such by his/her cosignature. VS, I&O, 24H, Fishbone Vital Signs/I&O Vital Signs Date Time Temp Pulse Resp B/P (MAP) Pulse Ox O2 Delivery O2 Flow Rate FiO2 04/06/19 14:35 18 Room Air 04/06/19 14:00 98.7 96 121/77 (92) 98 04/03/19 21:53 2 I&O- Last 24 Hours up to 6 AM 04/06/19 06:00 Intake Total 2335 ml Output Total 2600 ml Balance -265 ml Laboratory Data 24H LABS Laboratory Tests 2 04/06/19 05:53: Nucleated Red Blood Cells % (auto) 0.0, Erythrocyte Sedimentation Rate 128H, Anion Gap 6L, Glomerular Filtration Rate > 60.0, Calcium Level 6.9L, C-Reactive Protein, Quantitative 19.20H 04/06/19 11:02: Vancomycin Level Trough 16.5 CBC/BMP Laboratory Tests 04/06/19 05:53 Microbiology Microbiology 04/03/19 Blood Culture - Preliminary, Resulted No Growth after 72 hours. All specime... 04/02/19 Blood Culture - Preliminary, Resulted No Growth after 72 hours. All specime... 04/01/19 Blood Culture - Final, Complete Staph.aureus Methicillin Resis 04/01/19 Blood Culture - Final, Complete Staph.aureus Methicillin Resis 03/31/19 Blood Culture - Final, Complete NO GROWTH AFTER 5 DAYS 03/31/19 Blood Culture - Final, Complete Staph.aureus Methicillin Resis 03/30/19 Blood Culture - Final, Complete Staph.aureus Methicillin Resis 03/30/19 Respiratory Virus Panel (PCR) ([facility]) - Final, Complete 03/30/19 Blood Culture - Final, Complete Staph.aureus Methicillin Resis ANNE DOMINGUEZ S-IV Apr 06, 2019 14:59 Betty Jose MD Apr 07, 2019 17:28
[2019-04-06] MEDS: RAMELTEON 8 MG TAB (ROZEREM) PO SCH (20:27)
[2019-04-06 22:00] VITALS: BP 115/68
[2019-04-07] MEDS: ACETAMINOPHEN TAB 650MG DOSE (2X325MG) PO PRN (00:34)
[2019-04-07] MEDS: SODIUM CHLORIDE 0.9% INJ 10 ML SYR IV PRN (01:38)
[2019-04-07] MEDS: NORCO, ANEXSIA 5/325MG TABLET (HYDROcodone/ACETAMINOPHEN) PO PRN ×3 (03:36→17:21)
[2019-04-07] MEDS: SODIUM CHLORIDE 0.9% INJ 10 ML SYR IV SCH ×5 (05:08→23:15)
[2019-04-07 06:00] VITALS: BP 128/89
[2019-04-07] MEDS: NICOTINE 7 MG/24 HR TRANSDERMAL TD SCH (09:00)
[2019-04-07] MEDS: POTASSIUM CHLORIDE 10 MEQ SR TABLET PO SCH ×2 (09:05→20:54)
[2019-04-07] MEDS: NYSTATIN 500,000 U/5 ML SUSP UDC PO SCH ×4 (09:06→20:54)
[2019-04-07] MEDS: MELOXICAM (MOBIC) 7.5 MG TAB PO SCH ×2 (09:06→20:54)
[2019-04-07] MEDS: VENLAFAXINE **XR** 75MG CAPSULE PO SCH (11:16)
[2019-04-07] MEDS: OMEPRAZOLE 20 MG CAP PO SCH (11:16)
[2019-04-07] MEDS: VANCOMYCIN HCL 1,000 MG, VIAL MATE ADAPTER 1 EACH in D5W 250 ML IV SCH (12:06)
--- NOTE | 2019-04-07 12:17 | IPNPDOC ---
Text Note Date of Service The patient was seen on 04/07/19. NOTE S: Overnight patient had a slight fever of 101.1. This morning she denied any chest pain, denied any cough, denied any dysuria, denies any breathing difficulty. She refused a.m. labs morning. We'll continue current treatment plan with IV antibiotics in the hospital via the PICC line. She'll be made ALC status today. She can be discharged in approximately one week after 2 weeks of inpati ent antibiotic therapy. O: VITALS : As below GEN: Alert, pleasant, no acute distress HEENT: Improving thrush Heart: +S1S2, no murmurs LUNGS: CTAB SKIN: Skin excoriations around the face, and track perez, PICC line placed EXT: Multiple track perez, no edema, IV sites placed A/P: 48-year-old female, with PMHx Hep C, multiple admissions for depression, polysubstance abuse including Chantel, methamphetamine, and IV drug use. Presented by ambulance for altered mental status, lethargy, somnolence. #ALC status. We'll continue antibiotics until April 16 in a hospital. At which point patient will follow-up with ID for continued antibiotics, anticipated antibiotic end date is April 30 #MRSA bacteremia with highly probable infective endocarditis - ID consultation - Continue IV Vanco -TTE negative for vegetations -MARIANA failed due to inability to get the transesophageal probe into the esophagus due to presence of cervical plates So infective endocarditis cannot be ruled out. - WBC continues to trend down -Blood culture negative on 04/02/2019, and 04/03/2019 no growth. Will need 4 weeks of antibiotics starting from April 02. 2 weeks in the hospital followed by 2 weeks as an outpatient with Nessa. This is week 1 -PICC line placed for IV antibiotics -Continue improving leukocytosis #Depression -Restart patient on venlafaxine #Pain control -Mobic, [place] 1 tab every 8hrs, -Omeprazole for prophylaxis against ulcers #Insomnia -30 mg of ramelteon daily at bedtime #Anemia of chronic disease will continue to monitor during treatment process -Iron 19, low -Tansferrin, TIBC 203, low - Ferritin 289 -No need for transfusion at this moment. -Patient had a very slight increase in hemoglobin and hematocrit, will continue to monitor. # Left Steroclavicular joint pain 2/2 posible septic arthritis -MRI: Soft tissue edema and cellulitis in the soft tissues of the left chest wall surrounding the clavicle -Repeat MRI of the neck but includes a sternoclavicular joints, both with and without contrast prior to discharge -Monitor for pain and swelling #Toxic Metabolic encephalopathy secondary to bacteremia/sepsis, polysubstance abuse, psychiatric illness - multifactorial in nature -Resolved. Pt. is back to baseline, she is able to converse appropriately, no sign of confusion #Thrush, -nystatin swish and swallow #Chronic Hep C -Will most likely need Hep C treatment once is IVDU free - Has been vaccinated for hep A #Wrist and Shoulder Pain -Ortho consult: -no suspicion of septic arthritis, per orthopedic surgeon. #Hyponatremia -Resolved -No signs of neurological deficit -Nephrology has signed off #Thrombocytopenia - Resolved #Hypocalcemia - Corrected calcium is within normal limits #Lactic acidosis -Resolved #Tobacco abuse -Nicotine replacement therapy #Polysubstance abuse -Tested positive for opiates, amphetamine and cannabis -No signs of withdrawal during hospital stay #Hypokalemia - Oral replacements off #Multiple psych problems will need referral to psych as outpatient. 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 #DVT - mechanical prophylaxis Dispo: will require extended IV Vanco; PFS c/s pending; ID f/u VS,Fishbone, I+O VS, Fishbone, I+O Vital Signs Date Time Temp Pulse Resp B/P (MAP) Pulse Ox O2 Delivery O2 Flow Rate FiO2 04/07/19 08:16 18 04/07/19 06:00 98.2 99 128/89 (102) 96 Room Air 04/03/19 21:53 2 I&O- Last 24 Hours up to 6 AM 04/07/19 06:00 Intake Total 1800 ml Output Total 400 ml Balance 1400 ml Attending Note I personally saw and evaluated the patient. I agree with the findings and the plan of care documented above in the resident's note. JAVIER ORONA DO Apr 07, 2019 12:17 ORAL TORIBIO MD Apr 08, 2019 15:25
[2019-04-07 14:00] VITALS: BP 130/88
[2019-04-07] MEDS ORDERED: VITA50005 PO (15:20)
[2019-04-07] MEDS ORDERED: ESTR0.5T3 PO (15:20)
[2019-04-07] MEDS ORDERED: EFFE150C2 PO (15:20)
[2019-04-07] MEDS ORDERED: REME30TA PO (15:20)
[2019-04-07] MEDS ORDERED: MELO15TA28 PO (15:20)
[2019-04-07] MEDS ORDERED: TRAZ-257 PO (15:20)
[2019-04-07] MEDS ORDERED: MED REC COMMENT (15:21)
--- NOTE | 2019-04-07 18:54 | IPNPDOC ---
Date Seen The patient was seen on 04/07/19. Progress Note SUBJECTIVE: Patient is a 48-year-old female, with a past medical history of Hepatitis C, multiple admissions for depression and anxiety, polys ubstance abuse including Chantel, methamphetamine, and IV drug use who presented by ambulance for altered mental status, lethargy, somnolence. Pt states she had trouble sleeping throughout the night due to anxiety. We discussed her past medication history where she stated she used to take Mirtazipine 30 mg Qhs and Venlafaxine 150 mg Q24hrs. Pt also stated that her right shoulder was sore. Pt denies nausea, vomiting, diarrhea, constipation, and hematuria. OBJECTIVE: VITALS : Please see below GENERAL: Pt examined in hospital bed with family present. No acute distress. AAOx3 HEENT: Minimal thrush in patient's oral cavity. NECK: No lymphadenopathy, tender to palpation along the clavicle but swelling and erythema have improved Heart: Regular rate and rhythm, +S1and + S2, no murmurs, rubs, or gallops appreciated. LUNGS: No wheezing or rhonchi appreciate. Crackles heard at the right base. SKIN: Multiple scabs and excoriations in various stages of healing all over patient's body. Hypopigmented lesions on arms, legs and upper back bilaterally. Shoulder does not have a range of motion. Sternoclavicular joint on the left side is less swollen and less erythematous. Pt's right IJ central line was removed, site is clean and dry. Pt has a PICC line in her left arm was clean, dry, and covered with Tegaderm. ASSESSMENT: This is a 48-year-old female, with a past medical history of Hepatitis C, multiple admissions for depression and anxiety, polysubstance abuse including Chantel, methamphetamine, and IV drug use who presented by ambulance for altered mental status, lethargy, somnolence. During her hospital course, cultures suggested she had MRSA bacteremia with probable infective endocarditis. 1. Probable Infective endocarditis MRSA - Continue IV Vancomycin for infective endocarditis. She also has left clavicular myositis/ abscess I suspect she will have acute osteomyelitis of sternoclavicular joint but MRI was not positive 2. Psychiatry patient wih Hx Anxiety and depression ? Bipolar and PTSD ; we confirmed her meds from [facility] - Start Venlafaxine 70 mg Q24hrs for anxiety. Start Mirtazipine 30 mg Qhs for insomnia. PLAN - Blood cultures were negative on 04/02/2019 and 04/03/2019 no growth. Patient will need 4 weeks of antibiotics with a start date of April 02, which was the date of her first negative culture. Plan is for antibiotics to be given for 2 weeks in the hospital followed by 2 weeks as an outpatient with [facility] if her insurance authorizes medication. End of therapy set for April 30. GME ATTESTATION My faculty preceptor for this patient encounter was physically present during the encounter and was fully available. All aspects of the patient interview, examination, medical decision making process, and medical care plan development were reviewed and approved by the faculty preceptor. The faculty preceptor is aware and concurs with the plan as stated in the body of this note and will attest to such by his/her cosignature. VS, I&O, 24H, Fishbone Vital Signs/I&O Vital Signs Date Time Temp Pulse Resp B/P (MAP) Pulse Ox O2 Delivery O2 Flow Rate FiO2 04/07/19 17:21 20 Room Air 04/07/19 14:00 98.9 95 130/88 (102) 95 04/03/19 21:53 2 I&O- Last 24 Hours up to 6 AM 04/07/19 06:00 Intake Total 1800 ml Output Total 400 ml Balance 1400 ml Laboratory Data Microbiology Microbiology 04/03/19 Blood Culture - Preliminary, Resulted No Growth after 72 hours. All specime... 04/02/19 Blood Culture - Final, Complete NO GROWTH AFTER 5 DAYS 04/01/19 Blood Culture - Final, Complete Staph.aureus Methicillin Resis 04/01/19 Blood Culture - Final, Complete Staph.aureus Methicillin Resis 03/31/19 Blood Culture - Final, Complete NO GROWTH AFTER 5 DAYS 03/31/19 Blood Culture - Final, Complete Staph.aureus Methicillin Resis 03/30/19 Blood Culture - Final, Complete Staph.aureus Methicillin Resis 03/30/19 Respiratory Virus Panel (PCR) (KADEEM) - Final, Complete 03/30/19 Blood Culture - Final, Complete Staph.aureus Methicillin Resis ANNE DOMINGUEZ OMS-IV Apr 07, 2019 18:54 Betty Jose MD Apr 08, 2019 20:45
[2019-04-07] MEDS: MIRTAZAPINE 15 MG TAB PO SCH (20:54)
[2019-04-07 22:00] VITALS: BP 148/98
[2019-04-08] MEDS: VANCOMYCIN HCL 1,000 MG, VIAL MATE ADAPTER 1 EACH in D5W 250 ML IV SCH (00:34)
[2019-04-08] MEDS: SODIUM CHLORIDE 0.9% INJ 10 ML SYR IV PRN (02:17)
[2019-04-08] MEDS: NORCO, ANEXSIA 5/325MG TABLET (HYDROcodone/ACETAMINOPHEN) PO PRN ×4 (02:17→21:01)
[2019-04-08] MEDS: SODIUM CHLORIDE 0.9% INJ 10 ML SYR IV SCH ×5 (05:35→22:14)
[2019-04-08 06:00] VITALS: BP 143/95
[2019-04-08] MEDS: MELOXICAM (MOBIC) 7.5 MG TAB PO SCH ×2 (08:32→21:00)
[2019-04-08] MEDS: NYSTATIN 500,000 U/5 ML SUSP UDC PO SCH ×4 (08:32→21:01)
[2019-04-08] MEDS: VENLAFAXINE **XR** 75MG CAPSULE PO SCH (08:32)
[2019-04-08] MEDS: POTASSIUM CHLORIDE 10 MEQ SR TABLET PO SCH ×2 (08:32→21:00)
[2019-04-08] MEDS: OMEPRAZOLE 20 MG CAP PO SCH (08:32)
[2019-04-08] MEDS: NICOTINE 7 MG/24 HR TRANSDERMAL TD SCH (08:33)
[2019-04-08 11:16] LABS: HEMATOCRIT 27.6 % (36.0-47.0); HEMOGLOBIN 8.5 g/dl (12.0-15.5); MEAN CORPUSCULAR HEMOGLOBIN 25.4 pg (27.0-33.0); MEAN CORPUSCULAR HGB CONC 30.8 g/dl (32.0-36.5); MEAN CORPUSCULAR VOLUME 82.6 fl (80.0-96.0); PLATELET COUNT, AUTOMATED 348 10^3/uL (150-450); RED BLOOD COUNT 3.34 10^6/uL (4.00-5.40); WHITE BLOOD COUNT 9.5 10^3/uL (4.0-10.0)
[2019-04-08 11:57] LABS: VANCOMYCIN LEVEL TROUGH 20.6 UG/ML (10.0-20.0)
[2019-04-08] MEDS: ACETAMINOPHEN TAB 650MG DOSE (2X325MG) PO PRN (13:28)
[2019-04-08] MEDS: VANCOMYCIN HCL 750 MG, VIAL MATE ADAPTER 1 EACH in D5W 250 ML IV SCH (13:28)
[2019-04-08] MEDS ORDERED: IBUPROFEN 400 MG TAB PO ONE (16:30)
[2019-04-08] MEDS: diphenhydrAMINE CREAM 30GM TOP PRN (18:05)
[2019-04-08] MEDS ORDERED: MOM 30ML SUSPENSION UDC PO PRN (19:15)
[2019-04-08] MEDS: MIRTAZAPINE 15 MG TAB PO SCH (21:00)
[2019-04-08 21:06] LABS: C REACTIVE PROTEIN QUANTITATIV 15.8 MG/DL (0.00-0.30)
[2019-04-08 22:00] VITALS: BP 142/93
[2019-04-09] MEDS: VANCOMYCIN HCL 750 MG, VIAL MATE ADAPTER 1 EACH in D5W 250 ML IV SCH ×2 (01:04→12:41)
[2019-04-09] MEDS: SODIUM CHLORIDE 0.9% INJ 10 ML SYR IV PRN ×2 (02:31→14:17)
[2019-04-09] MEDS: NORCO, ANEXSIA 5/325MG TABLET (HYDROcodone/ACETAMINOPHEN) PO PRN ×4 (03:17→22:17)
[2019-04-09] MEDS: SODIUM CHLORIDE 0.9% INJ 10 ML SYR IV SCH ×3 (05:45→16:01)
[2019-04-09 06:00] VITALS: BP 142/78
[2019-04-09] MEDS: ACETAMINOPHEN TAB 650MG DOSE (2X325MG) PO PRN ×2 (06:50→13:41)
[2019-04-09] MEDS: NICOTINE 7 MG/24 HR TRANSDERMAL TD SCH (08:23)
[2019-04-09] MEDS: POTASSIUM CHLORIDE 10 MEQ SR TABLET PO SCH ×2 (08:30→21:28)
[2019-04-09] MEDS: VENLAFAXINE **XR** 75MG CAPSULE PO SCH (08:30)
[2019-04-09] MEDS: OMEPRAZOLE 20 MG CAP PO SCH (08:30)
[2019-04-09] MEDS: NYSTATIN 500,000 U/5 ML SUSP UDC PO SCH ×4 (08:30→21:28)
[2019-04-09] MEDS: MELOXICAM (MOBIC) 7.5 MG TAB PO SCH ×2 (08:30→21:28)
[2019-04-09 14:00] VITALS: BP 145/86
[2019-04-09] MEDS: MIRTAZAPINE 15 MG TAB PO SCH (21:28)
[2019-04-09 22:00] VITALS: BP 149/98
[2019-04-10] MEDS: VANCOMYCIN HCL 750 MG, VIAL MATE ADAPTER 1 EACH in D5W 250 ML IV SCH ×2 (00:52→23:51)
[2019-04-10] MEDS: SODIUM CHLORIDE 0.9% INJ 10 ML SYR IV PRN (02:16)
[2019-04-10] MEDS: ACETAMINOPHEN TAB 650MG DOSE (2X325MG) PO PRN ×2 (02:29→19:01)
[2019-04-10] MEDS: NORCO, ANEXSIA 5/325MG TABLET (HYDROcodone/ACETAMINOPHEN) PO PRN ×3 (05:26→20:26)
[2019-04-10 06:00] VITALS: BP 148/94
[2019-04-10] MEDS: SODIUM CHLORIDE 0.9% INJ 10 ML SYR IV SCH ×2 (06:00→18:08)
[2019-04-10] MEDS: VENLAFAXINE **XR** 75MG CAPSULE PO SCH (08:40)
[2019-04-10] MEDS: MELOXICAM (MOBIC) 7.5 MG TAB PO SCH ×2 (08:41→20:23)
[2019-04-10] MEDS: OMEPRAZOLE 20 MG CAP PO SCH (08:41)
[2019-04-10] MEDS: POTASSIUM CHLORIDE 10 MEQ SR TABLET PO SCH ×2 (08:41→20:23)
[2019-04-10] MEDS: NYSTATIN 500,000 U/5 ML SUSP UDC PO SCH (08:41)
[2019-04-10] MEDS: NICOTINE 7 MG/24 HR TRANSDERMAL TD SCH (08:41)
[2019-04-10] MEDS: diphenhydrAMINE CREAM 30GM TOP PRN (08:42)
[2019-04-10 14:00] VITALS: BP 144/91
[2019-04-10 14:26] LABS: CALCIUM LEVEL 8.9 MG/DL (8.5-10.1); CREATININE FOR GFR 1.14 MG/DL (0.55-1.30); GLOMERULAR FILTRATION RATE 54.2 (>58); POTASSIUM SERUM 4.9 MEQ/L (3.5-5.1); VANCOMYCIN LEVEL TROUGH 24.4 UG/ML (10.0-20.0)
--- NOTE | 2019-04-10 15:04 | PHACANCOPD ---
PHARMACY VANCOMYCIN DOSING Pt Demographics Demographics Patient Age:48 , Weight:61.500 , Gender: female Adjusted Body Weight Date: 04/02/19, Adjusted Body Weight: Kg Events Past 24 Hours Events Past 24 Hours: NO: Dialysis, Diuretic Therapy, Change in CrCl, Fever, Elevation in WBC, Pending Diagnostics, Pending Procedures, Other Vancomycin Vancomycin indication: MRSA bacteremia r/o endocarditis Vancomycin Target Ranges: 15-20 mcg/ml Vancomycin Load Y/N: Yes Load Dose Date Time Vancomycin Load Dose: 1000mg Date: 03/31 Time: ~[place] Vancomycin Dose Date: 04/10/19. Current Vancomycin Dose: [500MG IV Q12H @ 1999] Date: 03/31/19. Current Vancomycin Dose: [750mg IV q8h @] Intermittent Dosing?: No Labs Labs Item Value Date Time White Blood Count 15.0 10^3/uL H 04/04/19 0510 White Blood Count 13.2 10^3/uL H 04/05/19 0445 White Blood Count 12.6 10^3/uL H 04/06/19 0553 White Blood Count 9.5 10^3/uL 04/08/19 1102 C-Reactive Protein, Quantitative 19.20 MG/DL H 04/06/19 0553 C-Reactive Protein, Quantitative 15.80 MG/DL H 04/08/19 1102 Creatinine 0.80 MG/DL 04/06/19 0553 Creatinine 1.14 MG/DL 04/10/19 1349 Vancomycin Level Trough 16.5 UG/ML 04/06/19 1102 Vancomycin Level Trough 20.6 UG/ML H 04/08/19 1102 Vancomycin Level Trough 24.4 UG/ML H 04/10/19 1349 Micro Microbiology 04/03/19 Blood Culture - Final, Complete NO GROWTH AFTER 5 DAYS 04/02/19 Blood Culture - Final, Complete NO GROWTH AFTER 5 DAYS 04/01/19 Blood Culture - Final, Complete Staph.aureus Methicillin Resis 04/01/19 Blood Culture - Final, Complete Staph.aureus Methicillin Resis 03/31/19 Blood Culture - Final, Complete NO GROWTH AFTER 5 DAYS 03/31/19 Blood Culture - Final, Complete Staph.aureus Methicillin Resis Creatinine Clearance ~42LDate:04/10/19. Creatinine Clearance: [42ML/MIN]. Date:04/02/19. Creatinine Clearance: [~56 ml/min]. Date:03/30/19. Creatinine Clearance: [~52 ml/min]. Pending Labs Repeat vanco trough scheduled 04/11/19 @19:00 Assessment and Plan Maintaining Current Dose?: No Reason for dose change: Trough too high Pharmacist Note Pharmacist Note Date: 04/10/19. Pharmacist note: pt Scr has increased to 1.14 mg/dl and CRcl is currently estimated at ~42ml/min. The trough came back at 13:49 @24.4mcg/ml. Dosing is being held until 20:00 tonight 04/10/18 and will be restarted with 500mg vancomycin IV every 12 hours. A trough is scheduled for 04/11/19 @19:00. We will continue to monitor and adjust the dose as needed. 04/06: Today is day 8 for patient being treated with Vancomycin for MRSA bacteremia. Her trough resulted today at 16.5, which is within goal range. Patient was unable to successfully obtain a MARIANA and therefore she will be treated for presumed endocarditis. She will require 4 weeks of antibiotic therapy from April 01, 2019. We will continue her on Vancomycin 1gm IV q12h. We will continue to monitor and make adjustments as necessary. Date: 04/02/19. Pharmacist note: pt was started on vancomycin on 03/31 for beatriz teremia, suspected endocarditis. She received a Vancomycin 1g loading dose followed by 750mg IV q8h. Vancomycin trough drawn before the 5th dose was 16.5 mcg/ml. Inflammatory markers have been trending up, pt is still mildly febrile. TTE was negative for vegetation, MARIANA is scheduled for tomorrow. Blood cultures have been positive for MRSA (KADEEM = 1), repeat blood cultures are pending. I will repeat a trough tomorrow morning. We will continue to monitor and make adjustments as necessary. ROXANN CASPER PHARMACY Apr 10, 2019 15:04
--- NOTE | 2019-04-10 15:24 | IPNPDOC ---
Date Seen The patient was seen on 04/10/19. Progress Note SUBJECTIVE: Patient is a 48-year-old female, with a past medical history of Hepatitis C, multiple admissions for depression and anxiety, polysubstance abuse including Chantel, methamphetamine, and IV drug use who presented by ambulance for altered mental status, lethargy, somnolence. Pt s tates that she was able to sleep better, stay asleep, and return to sleep with the addition of the Mirtazapine. Pt stated that her right shoulder remains sore. Pt noticed small petechiae on her right hand, her shins, and her back. Pt denies fever, nausea, vomiting, shortness of breath, chest pain, diarrhea, constipation, and hematuria. OBJECTIVE: VITALS : Please see below GENERAL: Pt examined in hospital bed with family present. No acute distress. AAOx3 HEENT: Minimal thrush in patient's oral cavity. NECK: No lymphadenopathy, tender to palpation along the clavicle but swelling and erythema have improved Heart: Regular rate and rhythm, +S1and + S2, no murmurs, rubs, or gallops appreciated. LUNGS: No wheezing or rhonchi appreciate. Crackles heard at the right base. SKIN: Multiple scabs and excoriations in various stages of healing all over patient's body. Hypopigmented lesions on arms, legs and upper back bilaterally. Shoulder does not have a range of motion. Sternoclavicular joint on the left side is less swollen and less erythematous. Pt's right IJ central line was removed, site is clean and dry. Pt has a PICC line in her left arm was clean, dry, and covered with Tegaderm. Small petechiae scattered on shins b/l, right hand and on the lower back. ASSESSMENT: This is a 48-year-old female, with a past medical history of Hepatitis C, multiple admissions for depression and anxiety, polysubstance abuse including Chantel, methamphetamine, and IV drug use who presented by ambulance for altered mental status, lethargy, somnolence. During her hospital course, cultures suggested she had MRSA bacteremia with probable infective endocarditis. PLAN 1. Infective endocarditis Blood cultures were negative on 04/02/2019 and 04/03/2019 no growth. Patient will need 4 weeks of antibiotics with a start date of April 02, which was the date of her first negative culture. Plan is for antibiotics to be given for 2 weeks in the hospital followed by 2 weeks as an outpatient with Isaeldebmarisol if her insurance authorizes medication. End of therapy set for April 30. 2. Rash on right hand, shins and lower back Consider drug-induced rash from Meloxicam or Vancomycin. Continue Vancomycin treatment as care is coordinated to determine at home antibiotic regimen. Monitor rash for spread. DISPOSITION: Coordinate at home antibiotic regimen, consider Dalvance injection if insurance authorizes. GME ATTESTATION My faculty preceptor for this patient encounter was physically present during the encounter and was fully available. All aspects of the patient interview, examination, medical decision making process, and medical care plan development were reviewed and approved by the faculty preceptor. The faculty preceptor is aware and concurs with the plan as stated in the body of this note and will attest to such by his/her cosignature. VS, I&O, 24H, Fishbone Vital Signs/I&O Vital Signs Date Time Temp Pulse Resp B/P (MAP) Pulse Ox O2 Delivery O2 Flow Rate FiO2 04/10/19 14:00 98.0 109 19 144/91 (108) 96 Room Air I&O- Last 24 Hours up to 6 AM 04/10/19 05:59 Intake Total 2415 ml Output Total 600 ml Balance 1815 ml Laboratory Data 24H LABS Laboratory Tests 2 04/10/19 13:49: Anion Gap 6L, Glomerular Filtration Rate 54.2L, Calcium Level 8.9, Vancomycin Level Trough 24.4H CBC/BMP Laboratory Tests 04/10/19 13:49 Microbiology Microbiology 04/03/19 Blood Culture - Final, Complete NO GROWTH AFTER 5 DAYS 04/02/19 Blood Culture - Final, Complete NO GROWTH AFTER 5 DAYS 04/01/19 Blood Culture - Final, Complete Staph.aureus Methicillin Resis 04/01/19 Blood Culture - Final, Complete Staph.aureus Methicillin Resis 03/31/19 Blood Culture - Final, Complete NO GROWTH AFTER 5 DAYS 03/31/19 Blood Culture - Final, Complete Staph.aureus Methicillin Resis ANNE DOMINGUEZ OMS-IV Apr 10, 2019 15:24
[2019-04-10] MEDS ORDERED: VANCOMYCIN HCL 500 MG in D5W MINI-BAG PLUS 100 ML IV SCH (20:00)
[2019-04-10] MEDS: DOCUSATE SODIUM 100 MG CAP PO PRN (20:23)
[2019-04-10] MEDS: MIRTAZAPINE 15 MG TAB PO SCH (20:23)
[2019-04-10 22:00] VITALS: BP 142/90
[2019-04-11] MEDS: SODIUM CHLORIDE 0.9% INJ 10 ML SYR IV PRN (01:19)
[2019-04-11] MEDS: ACETAMINOPHEN TAB 650MG DOSE (2X325MG) PO PRN ×2 (02:26→09:32)
[2019-04-11] MEDS: NORCO, ANEXSIA 5/325MG TABLET (HYDROcodone/ACETAMINOPHEN) PO PRN ×3 (05:55→23:53)
[2019-04-11 06:00] VITALS: BP 139/70
[2019-04-11] MEDS: SODIUM CHLORIDE 0.9% INJ 10 ML SYR IV SCH ×2 (06:00→17:43)
[2019-04-11] MEDS: OMEPRAZOLE 20 MG CAP PO SCH (08:48)
[2019-04-11] MEDS: MELOXICAM (MOBIC) 7.5 MG TAB PO SCH ×2 (08:48→20:04)
[2019-04-11] MEDS: VENLAFAXINE **XR** 75MG CAPSULE PO SCH (08:48)
[2019-04-11] MEDS: NICOTINE 7 MG/24 HR TRANSDERMAL TD SCH (08:48)
[2019-04-11] MEDS: POTASSIUM CHLORIDE 10 MEQ SR TABLET PO SCH ×2 (08:49→20:04)
[2019-04-11] MEDS: DOCUSATE SODIUM 100 MG CAP PO PRN (08:49)
[2019-04-11] MEDS: diphenhydrAMINE CREAM 30GM TOP PRN ×2 (11:08→16:32)
[2019-04-11] MEDS ORDERED: LORazepam 2 MG/ML VIAL (J2060) IM STA (11:56)
[2019-04-11 14:00] VITALS: BP 133/79
[2019-04-11] MEDS: diphenhydrAMINE 25 MG CAP PO PRN ×2 (15:18→23:53)
[2019-04-11] MEDS ORDERED: FLUCONAZOLE 50MG TABLET PO ONE (16:15)
--- NOTE | 2019-04-11 16:30 | IPNPDOC ---
Text Note Date of Service The patient was seen on 04/11/19. NOTE Subjective: Patient is a 48-year-old female, past medical history significant for hepatitis C, depression and anxiety, polysubstance abuse with Chantel, methamphetamine who originally presented to the hospital with altered mental status, lethargy and somnolence. Patient was interviewed and examined in her hospital room. She was found to be relaxing comfortably in bed not in any acute distress. She reports continued shoulder pain, worsening drug eruption on her anterior thighs and groin. She reports that the rash continues to itch and is causing her a significant amount of distress. She has to this point received topical Benadryl. Patient is also reporting increased vaginal itching. Denies any chest pain, shortness of breath, abdominal pain or difficulty with stooling and urinating. Objective: Vital signs: Temperature, 97.8. Pulse, 100. Respiratory rate, 18. Blood pressure 133/79. Pulse ox 96% on room air. General: Patient examined her hospital bed. She was found to be resting comfortably and not in any acute distress. She is alert and oriented to person place and time. She is able to answer questions regarding her medical history and able to actively participate in her care. Neck: No lymphadenopathy. Patient remains tender along the left clavicle with reduced swelling and erythema. Heart: Regular rate and rhythm, normal S1 and S2 free of any murmurs rubs or gallops. Lungs: Lungs clear to auscultation bilaterally both anterior and posterior lung brownlee. No wheezing rales or rhonchi are noted. Skin: Multiple scabs and lesions in various stages of healing were patient's body, particularly the upper extremities. Number of hyperpigmented lesions on her arms and legs and upper back bilaterally strict be from previous excoriati ons. Improved shoulder range of motion. Sternoclavicular joint appears less swollen and less erythematous compared to yesterday's examination. Previous right IJ catheter site clean and dry. Left sided PICC line clean and dry. Progression of petechial rash on anterior medial thighs and lower legs and groin. Lesions also noted on patient's lower and mid back. Assessment: Patient is a 48-year-old female, past history significant for hepatitis C, depression and anxiety, polysubstance abuse with Chantel methamphetamine, who originally presented to the hospital for altered mental status, lethargy and somnolence. Cultures obtained throughout her hospital course demonstrated MRSA bacteremia with probable infective endocarditis. Plan: #Infective endocarditis Negative blood cultures on 04/02 and 04/03/2019. Continue antibiotic therapy starting from first known negative blood culture. Patient to receive a total of 2 weeks of in-hospital antibiotic therapy. Patient to receive Dalvance as an outpatient. Cross reactivities with vancomycin were reviewed. Dalvance is able to be administered over 60 minutes rather than the typical 30 assuming there is no vancomycin anaphylactic reaction, which is the case regards to this patient. #Drug eruption Suspected eruption related to patient's vancomycin. Previous suspected some interaction with meloxicam no patient states that she has taken amoxicillin past without any issues. Patient is currently receiving topical Benadryl. Added Benadryl 25 mg every 8 hours when necessary. #Vulvovaginitis Diflucan 150 mg given once VS,Fishbone, I+O VS, Fishbone, I+O Vital Signs Date Time Temp Pulse Resp B/P (MAP) Pulse Ox O2 Delivery O2 Flow Rate FiO2 04/11/19 15:18 16 Room Air 04/11/19 14:00 97.8 100 133/79 (97) 96 I&O- Last 24 Hours up to 6 AM 04/11/19 06:00 Intake Total 2290 ml Output Total 1200 ml Balance 1090 ml GME ATTESTATION GME ATTESTATION My faculty preceptor for this patient encounter was physically present during the encounter and was fully available. All aspects of the patient interview, examination, medical decision making process, and medical care plan development were reviewed and approved by the faculty preceptor. The faculty preceptor is aware and concurs with the plan as stated in the body of this note and will attest to such by his/her cosignature. GAETANO RED DO Apr 11, 2019 16:30
[2019-04-11] MEDS: MIRTAZAPINE 15 MG TAB PO SCH (20:04)
[2019-04-11 22:00] VITALS: BP 133/80
[2019-04-11] MEDS ORDERED: PROHANCE 279.3MG/ML 5ML VIAL (A9576) As Ordered ONE (22:49)
[2019-04-11] MEDS: VANCOMYCIN HCL 750 MG, VIAL MATE ADAPTER 1 EACH in D5W 250 ML IV SCH (23:52)
[2019-04-12] MEDS: SODIUM CHLORIDE 0.9% INJ 10 ML SYR IV SCH ×2 (05:06→17:43)
[2019-04-12 05:34] LABS: HEMATOCRIT 29.5 % (36.0-47.0); MEAN CORPUSCULAR HEMOGLOBIN 25.5 pg (27.0-33.0); MEAN CORPUSCULAR HGB CONC 30.5 g/dl (32.0-36.5); MEAN CORPUSCULAR VOLUME 83.6 fl (80.0-96.0); PLATELET COUNT, AUTOMATED 438 10^3/uL (150-450); RED BLOOD COUNT 3.53 10^6/uL (4.00-5.40); WHITE BLOOD COUNT 8.2 10^3/uL (4.0-10.0)
[2019-04-12 06:00] VITALS: BP 132/81
[2019-04-12 06:00] LABS: CALCIUM LEVEL 8.1 MG/DL (8.5-10.1); CREATININE FOR GFR 1.17 MG/DL (0.55-1.30); GLOMERULAR FILTRATION RATE 52.6 (>58)
[2019-04-12] MEDS: OMEPRAZOLE 20 MG CAP PO SCH (08:12)
[2019-04-12] MEDS: VENLAFAXINE **XR** 75MG CAPSULE PO SCH (08:13)
[2019-04-12] MEDS: MELOXICAM (MOBIC) 7.5 MG TAB PO SCH ×2 (08:13→21:33)
[2019-04-12] MEDS: ACETAMINOPHEN TAB 650MG DOSE (2X325MG) PO PRN ×3 (08:13→21:34)
[2019-04-12] MEDS: POTASSIUM CHLORIDE 10 MEQ SR TABLET PO SCH ×2 (08:13→21:34)
[2019-04-12] MEDS: NICOTINE 7 MG/24 HR TRANSDERMAL TD SCH (08:14)
[2019-04-12] MEDS: diphenhydrAMINE 25 MG CAP PO PRN ×2 (08:16→17:27)
--- NOTE | 2019-04-12 10:13 | REP ---
MRI STUDY OF THE STERNOCLAVICULAR JOINT REGION AND CHEST WALL WITHOUT AND WITH IV CONTRAST: HISTORY: Clavicle pain. Possible osteomyelitis. Comparison MRI study April 03, 2019. Comparison chest x-ray March 31, 2019. Comparison CT study of the chest is from March 16, 2019. TECHNIQUE: Axial coronal and sagittal T1- and T2-weighted scans were obtained with and without fat saturation. Postcontrast images are acquired. 5 mL of intravenous ProHance is administered. MRI FINDINGS: There is less artifact with improved image quality today. Inflammatory changes are again noted centered about the left medial clavicle and left manubrio-clavicular articulation. There are is evidence on T2-weighted scans of fluid within the manubrio-clavicular joint with some synovial thickening and swelling. There is heterogeneous T2 marrow edema in the medial clavicle. No cortical destruction is seen. There is adjacent soft tissue edema. There is a small area of T2 hyperintensity along the undersurface of the medial pectoralis muscle on the left which could be a fluid collection. This measures 2.4 cm x 0.8 cm. There is improvement noted in the meghna-clavicular edema pattern. This possible fluid collection was not previously apparent. Postcontrast images demonstrate periosseous and periarticular enhancement in the soft tissues. There is a mottled pattern of enhancement in the medial clavicle head. No definite manubrial enhancement. There is subacromial subdeltoid bursal effusion again noted at the shoulder. This appears unchanged. Lastly, there is a nodule in the apex of the left lung with T2 hyperintense interior and peripheral contrast enhancement. This measures 1.4 cm in greatest diameter and is of uncertain significance. IMPRESSION: Inflammatory changes centered about the medial clavicle, head and left manubrio-clavicular articulation. Medioclavicular osteomyelitis is difficult to exclude. No definite cortical bone erosion. There is less meghna-clavicular soft tissue edema. There is a small fluid collection apparent beneath the medial fibers of the left pectoralis muscle. There is an apical lung nodule of uncertain significance. A left subacromial subdeltoid bursal effusion is seen. Consider sternoclavicular CT study and chest CT study. Preferably with IV contrast. Electronically Signed by Edison Biggs MD 04/12/2019 02:35 P
[2019-04-12] MEDS ORDERED: ISOVUE-370 76% 100ML VIAL (Q9967) As Ordered ONE (11:55)
[2019-04-12] MEDS: NORCO, ANEXSIA 5/325MG TABLET (HYDROcodone/ACETAMINOPHEN) PO PRN (12:27)
[2019-04-12 14:00] VITALS: BP 133/96
--- NOTE | 2019-04-12 14:28 | REP ---
CT CHEST WITH IV CONTRAST: HISTORY: Question medial clavicular osteomyelitis on the left. Nodule in the left apex on MRI study, question septic emboli. CT CONTRAST DOSE: 75 mL of intravenous Isovue 370. TECHNIQUE: Standard chest CT study is performed. Maximal intensity projection and MPR images are generated. In addition, thin section reformatted scans of the left clavicle are generated. These are viewed at bone window settings. CT FINDINGS: There is no evidence of acute cortical erosive change involving the proximal clavicle on either side. There are tiny scalloped areas of the articular surface of the manubrium and opposing surface of the clavicle on both sides but this is symmetric and chronic. There is mild narrowing of the manubrioclavicular joint on the left. Mild overlying soft tissue swelling is seen. No abscess is observed by CT study. There is a very small low density area in the pectoralis muscle on the left just below the level of the proximal clavicle. The supraclavicular and visualized neck soft tissues are unremarkable. Normal thyroid lobes are seen. Incidental note is made of an aberrant right subclavian artery. There is good opacification in the pulmonary arterial tree. There is no CT evidence of pulmonary embolus. No aortic dissection or aneurysm is appreciated. No mediastinal mass or adenopathy is observed. No pleural or pericardial effusion is seen. No abnormal filling defect is seen in the cardiac chambers. On lung window settings, there are multiple pulmonary nodules including the one visualized on MRI study at the left apex. The three largest of these are in the left upper lobe and superior segment of the left lower lobe. These measure 14, 12, and 14 mm in greatest diameter respectively. There are a few scattered tiny nodules elsewhere. There is some plate-like atelectasis in the left lower lobe. None of these parenchymal opacities was visible on March 16, 2019. A small 3 mm nodule visible in the right upper lobe on that prior study is not visible today. These nodular densities are most likely related to septic emboli. There are surgical clips in right upper quadrant post cholecystectomy. There is a fusion plate in the lower cervical spine. IMPRESSION: 1. There is no CT evidence of osteomyelitis in the medial clavicle or manubrium on the left side. There is mild soft tissue swelling overlying the left sternoclavicular articulation. 2. Aberrant right subclavian. 3. Multiple pulmonary nodules consistent with septic emboli as described above. Electronically Signed by Edison Biggs MD 04/12/2019 02:39 P
[2019-04-12] MEDS: MIRTAZAPINE 15 MG TAB PO SCH (21:33)
[2019-04-12 22:00] VITALS: BP 135/84
[2019-04-12] MEDS: VANCOMYCIN HCL 750 MG, VIAL MATE ADAPTER 1 EACH in D5W 250 ML IV SCH (23:10)
[2019-04-13] MEDS: SODIUM CHLORIDE 0.9% INJ 10 ML SYR IV PRN (00:27)
[2019-04-13] MEDS: NORCO, ANEXSIA 5/325MG TABLET (HYDROcodone/ACETAMINOPHEN) PO PRN ×3 (00:27→22:05)
[2019-04-13] MEDS: ACETAMINOPHEN TAB 650MG DOSE (2X325MG) PO PRN ×3 (04:43→20:00)
[2019-04-13] MEDS: SODIUM CHLORIDE 0.9% INJ 10 ML SYR IV SCH ×2 (05:17→22:04)
[2019-04-13] MEDS: diphenhydrAMINE 25 MG CAP PO PRN ×2 (05:29→14:57)
[2019-04-13 05:34] LABS: BASO % 0.3 % (0.0-1.0); EOS # 0.1 10^3/uL (0.0-0.5); EOS % 1.1 % (0.0-3.0); HEMATOCRIT 25.8 % (36.0-47.0); HEMOGLOBIN 7.9 g/dl (12.0-15.5); LYMPH # 1.7 10^3/uL (1.5-5.0); LYMPH % 28.5 % (24.0-44.0); MEAN CORPUSCULAR HEMOGLOBIN 25.6 pg (27.0-33.0); MEAN CORPUSCULAR HGB CONC 30.6 g/dl (32.0-36.5); MEAN CORPUSCULAR VOLUME 83.8 fl (80.0-96.0); MONO # 0.4 10^3/uL (0.0-0.8); MONO % 6.9 % (0.0-5.0); NEUTROPHILS # 3.8 10^3/uL (1.5-8.5); NEUTROPHILS % 62.7 % (36.0-66.0); PLATELET COUNT, AUTOMATED 369 10^3/uL (150-450); RED BLOOD COUNT 3.08 10^6/uL (4.00-5.40); WHITE BLOOD COUNT 6.1 10^3/uL (4.0-10.0)
[2019-04-13 05:59] LABS: C REACTIVE PROTEIN QUANTITATIV 13.6 MG/DL (0.00-0.30); CALCIUM LEVEL 7.9 MG/DL (8.5-10.1); CREATININE FOR GFR 1.28 MG/DL (0.55-1.30); GLOMERULAR FILTRATION RATE 47.4 (>58); POTASSIUM SERUM 4.4 MEQ/L (3.5-5.1)
[2019-04-13 06:00] VITALS: BP 137/87
[2019-04-13 06:06] LABS: ERYTHROCYTE SEDIMENTATION RATE 126 mm/hr (0-20)
[2019-04-13] MEDS: NICOTINE 7 MG/24 HR TRANSDERMAL TD SCH (09:00)
[2019-04-13] MEDS: OMEPRAZOLE 20 MG CAP PO SCH (09:11)
[2019-04-13] MEDS: MELOXICAM (MOBIC) 7.5 MG TAB PO SCH ×2 (09:11→19:59)
[2019-04-13] MEDS: POTASSIUM CHLORIDE 10 MEQ SR TABLET PO SCH ×2 (09:12→19:59)
[2019-04-13] MEDS: VENLAFAXINE **XR** 75MG CAPSULE PO SCH (09:12)
[2019-04-13 14:00] VITALS: BP 138/87
--- NOTE | 2019-04-13 14:45 | IPNPDOC ---
Date Seen The patient was seen on 04/13/19. Progress Note SUBJECTIVE: Patient is a 48-year-old female, past medical history significant for hepatitis C, depression and anxiety, polysubstance abuse with Chantel, methamphetamine who originally presented to the hospital with altered mental status, lethargy and somnolence. Patient was interviewed and examined in her hospital room. She was found to be relaxing in bed not in any acute distress but continually states how itchy and uncomfortable she is. She reports continued shoulder pain, worsening drug eruption on her anterior shins and feet. She reports that the rash continues to itch and is causing her a significant discomfort. She has to this point received topical Benadryl and PO Benadryl q8hr. Patient denies any chest pain, shortness of breath, abdominal pain or difficulty with stooling and urinating. OBJECTIVE: Vital signs: Please see below General: Patient examined her hospital bed. She is alert and oriented to person place and time. She continually states "I am so uncomfortable and the rash is itchy" and was tearful. Neck: No lymphadenopathy. Patient remains tender along the left clavicle with reduced swelling and erythema. Heart: Regular rate and rhythm, normal S1 and S2 free of any murmurs rubs or gallops. Lungs: Lungs clear to auscultation bilaterally both anterior and posterior lung brownlee. No wheezing rales or rhonchi are noted. Skin: Multiple scabs and lesions in various stages of healing were patient's body, particularly the upper extremities. Number of hyperpigmented lesions on her arms and legs and upper back bilaterally strict be from previous excoriations. Improved shoulder range of motion. Sternoclavicular joint appears less swollen and less erythematous compared to yesterday's examination. Previous right IJ catheter site clean and dry. Left sided PICC line clean and dry. Progression of petechial rash on anterior medial thighs and lower legs and gr oin. Lesions were noted on patient's lower and mid back. Spread of petechial rash to her feet. LABS: Chest MRI There is subacromial subdeltoid bursal effusion again noted at the shoulder. This appears unchanged. Chest CT IMPRESSION: 1. There is no CT evidence of osteomyelitis in the medial clavicle or manubrium on the left side. There is mild soft tissue swelling overlying the left sternoclavicular articulation. 2. Aberrant right subclavian. 3. Multiple pulmonary nodules consistent with septic emboli as described above. ASSESSMENT: Patient is a 48-year-old female, past history significant for hepatitis C, depression and anxiety, polysubstance abuse with Chantel methamphetamine, who originally presented to the hospital for altered mental status, lethargy and somnolence. Cultures obtained throughout her hospital course demonstrated MRSA bacteremia with probable infective endocarditis. PLAN: 1. Probable infective endocarditis Negative blood cultures on 04/02 and 04/03/2019. Continue antibiotic therapy starting from first known negative blood culture. Patient to receive a total of 2 weeks of in-hospital antibiotic therapy. Continue IV Vancomycin 750 mg Q24hr. Cross reactivities with vancomycin were reviewed. Dalvance is able to be administered over 60 minutes rather than the typical 30 assuming there is no vancomycin anaphylactic reaction, which is the case regards to this patient. Prior authorization was approved and Dalvance will be infused on 04/17/2019 at [facility]. 2. Drug eruption Suspected eruption related to patient's vancomycin. Start PO Benadryl 50 mg q8 hrr and topical Triamcinolone 0.1% BID as patient continues to express discomfort from petechial rash. 3. Multiple pulmonary nodules consistent with septic emboli Current antibiotic regimen remains sufficient for coverage. Continue IV Vancomycin 750 mg Q24hr. 4. Subacromial subdeltoid effusion Consider ultrasound guided aspiration of subacromial subdeltoid effusion to rule out possible septic joint. GME ATTESTATION My faculty preceptor for this patient encounter was physically present during the encounter and was fully available. All aspects of the patient interview, examination, medical decision making process, and medical care plan development were reviewed and approved by the faculty preceptor. The faculty preceptor is aware and concurs with the plan as stated in the body of this note and will attest to such by his/her cosignature. VS, I&O, 24H, Fishbone Vital Signs/I&O Vital Signs Date Time Temp Pulse Resp B/P (MAP) Pulse Ox O2 Delivery O2 Flow Rate FiO2 04/13/19 14:00 17 Room Air 04/13/19 06:00 98.7 98 137/87 (104) 96 I&O- Last 24 Hours up to 6 AM 04/13/19 06:00 Intake Total 810 ml Output Total 725 ml Balance 85 ml Laboratory Data 24H LABS Laboratory Tests 2 04/13/19 05:24: Immature Granulocyte % (Auto) 0.5, Neutrophils (%) (Auto) 62.7, Lymphocytes (%) (Auto) 28.5, Monocytes (%) (Auto) 6.9H, Eosinophils (%) (Auto) 1.1, Basophils (%) (Auto) 0.3, Neutrophils # (Auto) 3.8, Lymphocytes # (Auto) 1.7, Monocytes # (Auto) 0.4, Eosinophils # (Auto) 0.1, Basophils # (Auto) 0.0, Nucleated Red Blood Cells % (auto) 0.0, Erythrocyte Sedimentation Rate 126H, Anion Gap 4L, Glomerular Filtration Rate 47.4L, Calcium Level 7.9L, C-Reactive Protein, Quantitative 13.60H CBC/BMP Laboratory Tests 04/13/19 05:24 Microbiology Microbiology 04/03/19 Blood Culture - Final, Complete NO GROWTH AFTER 5 DAYS ANNE DOMINGUEZ OMS-IV Apr 13, 2019 14:45
[2019-04-13] MEDS: TRIAMCINOLONE ACET 0.1% OINTMENT 80 GM TOP SCH (19:59)
[2019-04-13] MEDS: diphenhydrAMINE 50 MG CAP PO SCH (19:59)
[2019-04-13] MEDS: MIRTAZAPINE 15 MG TAB PO SCH (20:00)
[2019-04-13 22:00] VITALS: BP 149/83
[2019-04-13] MEDS: VANCOMYCIN HCL 750 MG, VIAL MATE ADAPTER 1 EACH in D5W 250 ML IV SCH (23:08)
--- NOTE | 2019-04-14 00:50 | PHACANCOPD ---
PHARMACY VANCOMYCIN DOSING Pt Demographics Demographics Patient Age:48 , Weight:61.500 , Gender: female Adjusted Body Weight Date: 04/02/19, Adjusted Body Weight: Kg Vancomycin Vancomycin indication: MRSA bacteremia r/o endocarditis Vancomycin Target Ranges: 15-20 mcg/ml Vancomycin Load Y/N: Yes Load Dose Date Time Vancomycin Load Dose: 1000mg Date: 03/31 Time: ~[place] Vancomycin Dose Date: 04/14/19. Current Vancomycin Dose: [750MG Q12H] Date: 04/10/19. Current Vancomycin Dose: [500MG IV Q12H @ 2000] Date: 03/31/19. Current Vancomycin Dose: [750mg IV q8h @08] Intermittent Dosing?: No Labs Creatinine Clearance Date:04/14/19. Creatinine Clearance: [52.2]CALCULATED. ~42LDate:04/10/19. Creatinine Clearance: [42ML/MIN]. Date:04/02/19. Creatinine Clearance: [~56 ml/min]. Date:03/30/19. Creatinine Clearance: [~52 ml/min]. Pending Labs Date: 04/14/19. Pharmacist note:Vancomycin trough drawn this evening@22:12 reported as 6.9.(goal=15-20).am SCR=1.28,Calculated CRCL=52.2.Will adjust regimen to Vancomycin 750mg IV [id number] to begin @6:00 and schedule a follow-up trough later today@17:00.Will continue to monitor Repeat vanco trough scheduled 04/11/19 @19:00 Assessment and Plan Maintaining Current Dose?: No Reason for dose change: Trough too low Pharmacist Note Pharmacist Note Date: 04/10/19. Pharmacist note: pt Scr has increased to 1.14 mg/dl and CRcl is currently estimated at ~42ml/min. The trough came back at 13:49 @24.4mcg/ml. Dosing is being held until 20:00 tonight 04/10/18 and will be restarted with 500mg vancomycin IV every 12 hours. A trough is scheduled for 04/11/19 @19:00. We will continue to monitor and adjust the dose as needed. 04/06: Today is day 8 for patient being treated with Vancomycin for MRSA bacteremia. Her trough resulted today at 16.5, which is within goal range. Patient was unable to successfully obtain a MARIANA and therefore she will be treated for presumed endocarditis. She will require 4 weeks of antibiotic therapy from April 01, 2019. We will continue her on Vancomycin 1gm IV q12h. We will continue to monitor and make adjustments as necessary. Date: 04/02/19. Pharmacist note: pt was started on vancomycin on 03/31 for bacteremia, suspected endocarditis. She received a Vancomycin 1g loading dose followed by 750mg IV q8h. Vancomycin trough drawn before the 5th dose was 16.5 mcg/ml. Inflammatory markers have been trending up, pt is still mildly febrile. TTE was negative for vegetation, MARIANA is scheduled for tomorrow. Blood cultures have been positive for MRSA (KADEEM = 1), repeat blood cultures are pending. I will repeat a trough tomorrow morning. We will continue to monitor and make adjustments as necessary. ARIANA CUEVA PHARMACY Apr 14, 2019 00:50
[2019-04-14] MEDS: SODIUM CHLORIDE 0.9% INJ 10 ML SYR IV PRN (01:11)
[2019-04-14] MEDS: ACETAMINOPHEN TAB 650MG DOSE (2X325MG) PO PRN ×3 (05:31→20:33)
[2019-04-14 06:00] VITALS: BP 149/95
[2019-04-14] MEDS ORDERED: VANCOMYCIN HCL 750 MG, VIAL MATE ADAPTER 1 EACH in D5W 250 ML IV SCH (06:00)
[2019-04-14] MEDS: NORCO, ANEXSIA 5/325MG TABLET (HYDROcodone/ACETAMINOPHEN) PO PRN ×3 (06:39→23:19)
[2019-04-14] MEDS: SODIUM CHLORIDE 0.9% INJ 10 ML SYR IV SCH ×2 (07:15→17:42)
[2019-04-14] MEDS: TRIAMCINOLONE ACET 0.1% OINTMENT 80 GM TOP SCH ×2 (08:27→20:33)
[2019-04-14] MEDS: VENLAFAXINE **XR** 75MG CAPSULE PO SCH (08:28)
[2019-04-14] MEDS: diphenhydrAMINE 50 MG CAP PO SCH ×3 (08:28→20:33)
[2019-04-14] MEDS: OMEPRAZOLE 20 MG CAP PO SCH (08:29)
[2019-04-14] MEDS: NICOTINE 7 MG/24 HR TRANSDERMAL TD SCH (08:29)
[2019-04-14] MEDS: MELOXICAM (MOBIC) 7.5 MG TAB PO SCH ×2 (08:29→20:32)
[2019-04-14] MEDS: POTASSIUM CHLORIDE 10 MEQ SR TABLET PO SCH ×2 (08:29→20:32)
[2019-04-14] MEDS ORDERED: LIDOCAINE 1% MDV 20ML VIAL As Ordered ONE (08:40)
--- NOTE | 2019-04-14 11:49 | IPNPDOC ---
Date Seen The patient was seen on 04/14/19. Progress Note SUBJECTIVE: Patient is a 48-year-old female, with MSSA bacteremia and septic emboli Hx Polysubstance abuse with Chantel, methamphetamine who originally presented to the hospital with altered mental status, lethargy and somnolence. Patient was interviewed and examined in her hospital room. She was found to be relaxing in bed after she went to radiology to have her left shoulder aspirated. She reports continued shoulder pain. She states that rash on her anterior shins and feet has not improved since yesterday. She reports that the rash continues to itch and is causing her a significant discomfort. She has received topical Triamcinolone 0.1% and PO Benadryl q8hr. Patient denies any chest pain, shortness of breath, abdominal pain or difficulty with stooling and urinating. OBJECTIVE: Vital signs: Please see below General: Patient examined her hospital bed. She is alert and oriented to person place and time. She states her shoulder is sore from the aspiration. Neck: No lymphadenopathy. Patient remains tender along the left clavicle with reduced swelling and erythema. Heart: Regular rate and rhythm, normal S1 and S2 free of any murmurs rubs or gallops. Lungs: Lungs clear to auscultation bilaterally both anterior and posterior lung brownlee. No wheezing rales or rhonchi are noted. Skin: Multiple scabs and lesions in various stages of healing were patient's body, particularly the upper extremities. Number of hypopigmented lesions on her arms and legs and upper back bilaterally be from excoriations. Improved shoulder range of motion. Sternoclavicular joint appears less swollen and less erythematous compared to yesterday's examination. Previous right IJ catheter site clean and dry. Left sided PICC line clean and dry. Progression of petechial rash on anterior medial thighs and lower legs and groin. Lesions were noted on patient's lower and mid back. Spread of petechial rash to her feet, with no resolution. LABS: Chest MRI There is subacromial subdeltoid bursal effusion again noted at the shoulder. This appears unchanged. ASSESSMENT: Patient is a 48-year-old female, past history significant for hepatitis C, depression and anxiety, polysubstance abuse with Chantel methamphetamine, who originally presented to the hospital for altered mental status, lethargy and somnolence. Cultures obtained throughout her hospital course demonstrated MRSA bacteremia with probable infective endocarditis. PLAN: 1. Probable infective endocarditis Negative blood cultures on 04/02 and 04/03/2019. Continue antibiotic therapy starting from first known negative blood culture. Patient to receive a total of 2 weeks of in-hospital antibiotic therapy. Discontinue IV Vancomycin because of non-resolving drug eruption. Start Daptomycin 500 mg q24hr as alternative to Vancomycin Cross reactivities with vancomycin were reviewed.Patient to finish outpatient IV treatment with Dalvance, there is no vancomycin allergy contraindication unless it is anaphylactic reaction Prior authorization was approved and Dalvance will be infused on 04/17/2019 and 04/24/2019 at home. I called [facility] for peripheral IV placement and anaphylactic kit 2. Drug eruption Suspected eruption related to patient's vancomycin, discontinue vancomycin. Continue PO Benadryl 50 mg q8hrr and topical Triamcinolone 0.1% BID as patient continues to express discomfort from pruritic rash. Start Daptomycin 500 mg q24hr as alternative to Vancomycin 3. Multiple pulmonary nodules consistent with septic emboli Current antibiotic regimen remains sufficient for coverage. Discontinue IV Van comycin 750 mg Q24hr. Start Daptomycin 500 mg q24hr as alternative to Vancomycin 4. Subacromial subdeltoid effusion Ultrasound guided aspiration of subacromial subdeltoid effusion performed this AM to rule out septic joint. GME ATTESTATION My faculty preceptor for this patient encounter was physically present during the encounter and was fully available. All aspects of the patient interview, examination, medical decision making process, and medical care plan development were reviewed and approved by the faculty preceptor. The faculty preceptor is aware and concurs with the plan as stated in the body of this note and will attest to such by his/her cosignature. VS, I&O, 24H, Fishbone Vital Signs/I&O Vital Signs Date Time Temp Pulse Resp B/P (MAP) Pulse Ox O2 Delivery O2 Flow Rate FiO2 04/14/19 09:39 98.6 109 16 96 Room Air 04/14/19 06:00 149/95 (113) I&O- Last 24 Hours up to 6 AM 04/14/19 06:00 Intake Total 2770 ml Output Total 1850 ml Balance 920 ml Laboratory Data 24H LABS Laboratory Tests 2 2/6/20 22:12: Vancomycin Level Trough 6.9L ANNE DOMINGUEZ OMS-IV Apr 14, 2019 11:49 Betty Jose MD Apr 14, 2019 12:54
--- NOTE | 2019-04-14 12:05 | IPNPDOC ---
Text Note Date of Service The patient was seen on 04/14/19. NOTE Interval Hx: Patient has been made ALC. Osteomyelitis of the sternoclavicular joint has been ruled out with MRI followed by CT chest. CT chest did show septic emboli that was not present on prior CT. She will be discharged with follow-up to infectious disease for outpatient Dalvance for infective endocarditis. S: Overnight patient had a MAXIMUM TEMPERATURE of 100. This is responsive to Tylenol therapy. This morning patient complains of minimal left shoulder pain. As well as a left lower extremity, nonpruritic rash that developed 2 days ago. O: VITALS : As below GEN: Alert, pleasant, no acute distress. Comfortably in bed. HEENT: Improving thrush Heart: +S1S2, no murmurs, rubs or gallops LUNGS: CTAB Abd: Soft, nontender, bowel sounds present, SKIN: Skin excoriations around the face, and track perez, PICC line placed EXT: Erythematous, nonraised, nonpruritic rash on patient's bilateral lower extremity A/P: 48-year-old female with a past medical history significant for IV drug use. Currently being treated for probable infective endocarditis. Patient has been on IV vancomycin since 04/02/2019. When and date scheduled for April 16. She will follow-up as an outpatient with infectious disease for continue therapy with Nessa #MRSA bacteremia with highly probable infective endocarditis - ID consultation - discontinue vancomycin, will start patient on daptomycin due to drug rash asso ciated with it, seems -TTE negative for vegetations -MARIANA failed due to inability to get the transesophageal probe into the esophagus due to presence of cervical plates So infective endocarditis cannot be ruled out. - WBC continues to trend down -Blood culture negative on 04/02/2019, and 04/03/2019 no growth. Will need 4 weeks of antibiotics starting from April 02. 2 weeks in the hospital followed by 2 weeks as an outpatient with Nessa. -PICC line placed for IV antibiotics #Secondary to vancomycin use. Patient was discontinued on vancomycin this morning. She has been placed on daptomycin. #Septic emboli Discontinue IV Vancomycin 750 mg Q24hr. Start Daptomycin 500 mg q24hr as alternative to Vancomycin #Depression -Restart patient on venlafaxine #Pain control -Mobic Chauncey 1 tab every 8hrs, -Omeprazole for prophylaxis against ulcers #Insomnia -30 mg of ramelteon daily at bedtime # Left Steroclavicular joint pain 2/2 posible septic arthritis -Pending ultrasound-guided abscess drainage #Chronic Hep C -Will most likely need Hep C treatment once is IVDU free - Has been vaccinated for hep A #Wrist and Shoulder Pain -Ortho consult: -no suspicion of septic arthritis, per orthopedic surgeon. #Lactic acidosis -Resolved #Tobacco abuse -Nicotine replacement therapy #Polysubstance abuse -Tested positive for opiates, amphetamine and cannabis -No signs of withdrawal during hospital stay #Hypokalemia - Oral replacements off #Multiple psych problems will need referral to psych as outpatient. 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 #DVT - mechanical prophylaxis VS,Fishbone, I+O VS, Fishbone, I+O Vital Signs Date Time Temp Pulse Resp B/P (MAP) Pulse Ox O2 Delivery O2 Flow Rate FiO2 04/14/19 09:39 98.6 109 16 96 Room Air 04/14/19 06:00 149/95 (113) I&O- Last 24 Hours up to 6 AM 04/14/19 06:00 Intake Total 2770 ml Output Total 1850 ml Balance 920 ml GME ATTESTATION GME ATTESTATION My faculty preceptor for this patient encounter was physically present during the encounter and was fully available. All aspects of the patient interview, examination, medical decision making process, and medical care plan development were reviewed and approved by the faculty preceptor. The faculty preceptor is aware and concurs with the plan as stated in the body of this note and will attest to such by his/her cosignature. ATTENDING NOTE 48 yo W with PSUD who was admitted with septic shock and found to have MRSA bacteremia who is now being treated fro probable infective endorcarditis initially doing well on vanc with plan for 2w of vanc and switch to 2 weeks of weekly dalvance. Recently course was c/b mild PANFILO and new bilateral LE pruritic rash c/f a vanc drug rash so vanc was discontinued by ID yesterday and she was switched to dapto. Her course has also been c/b R arm/clavicular pain for which she had imaging MRi and CT that ultimately was described as likely septic emboli without martina evidence of osteomyelitis and so plan remains to treat her with 4 weeks of antibiotics. JAVIER ORONA DO Apr 14, 2019 12:05 MARY NEVAREZ MD Apr 15, 2019 09:08
[2019-04-14] MEDS: ONDANSETRON 4 MG TAB (S0181) PO PRN ×2 (12:07→20:33)
[2019-04-14 14:00] VITALS: BP 148/71
[2019-04-14] MEDS: DAPTOmycin 500 MG in NS 50 ML IV SCH (15:06)
--- NOTE | 2019-04-14 15:44 | REP ---
ULTRASOUND-GUIDED LEFT SUBDELTOID EFFUSION The procedure was performed under the direct supervision of Dr. Biggs. Patient has a history of a left subacromial subdeltoid bursal effusion seen on a previous MRI dated 04/11/2019. The risks and benefits of the procedure were explained to the patient and informed consent was obtained. The left subdeltoid effusion was localized using ultrasound guidance. The skin was prepped and draped in a sterile fashion. 1% lidocaine was used as a local anesthetic. Using ultrasound guidance a 18-gauge needle was inserted and advanced into the fluid. 2 ml of yellow colored fluid was withdrawn and sent to lab. The patient tolerated the procedure well and there were no immediate complications. Electronically Signed by ALEXYS Shetty 04/14/2019 12:08 P Electronically Signed by Edison Biggs MD 04/14/2019 12:16 P
[2019-04-14] MEDS: MIRTAZAPINE 15 MG TAB PO SCH (20:31)
[2019-04-14 22:00] VITALS: BP 145/89
--- NOTE | 2019-04-14 23:46 | IPNPDOC ---
Text Note Date of Service The patient was seen on 04/14/19. NOTE Asked to see the pt bc she is having a fever of 101.2 Currently she is c/o of worsening arm pain. #f/u CBC, lactic acid and repeat blood cx VS,Fishbone, I+O VS, Fishbone, I+O Vital Signs Date Time Temp Pulse Resp B/P (MAP) Pulse Ox O2 Delivery O2 Flow Rate FiO2 04/14/19 23:19 16 04/14/19 23:04 101.2 04/14/19 22:00 104 145/89 (107) 98 Room Air I&O- Last 24 Hours up to 6 AM 04/14/19 05:59 Intake Total 2410 ml Output Total 1800 ml Balance 610 ml HARRIET REYES MD Apr 14, 2019 23:46
[2019-04-15] MEDS: IBUPROFEN 400 MG TAB PO PRN ×3 (00:07→19:51)
[2019-04-15 00:26] LABS: HEMATOCRIT 24.7 % (36.0-47.0); HEMOGLOBIN 7.5 g/dl (12.0-15.5); MEAN CORPUSCULAR HEMOGLOBIN 25.4 pg (27.0-33.0); MEAN CORPUSCULAR HGB CONC 30.4 g/dl (32.0-36.5); MEAN CORPUSCULAR VOLUME 83.7 fl (80.0-96.0); PLATELET COUNT, AUTOMATED 317 10^3/uL (150-450); RED BLOOD COUNT 2.95 10^6/uL (4.00-5.40); WHITE BLOOD COUNT 6.4 10^3/uL (4.0-10.0)
[2019-04-15 06:00] VITALS: BP 129/89
[2019-04-15] MEDS: ONDANSETRON 4 MG TAB (S0181) PO PRN ×2 (06:27→21:53)
[2019-04-15] MEDS: SODIUM CHLORIDE 0.9% INJ 10 ML SYR IV SCH ×2 (06:27→17:15)
[2019-04-15] MEDS: ACETAMINOPHEN TAB 650MG DOSE (2X325MG) PO PRN ×2 (06:28→20:48)
[2019-04-15] MEDS: OMEPRAZOLE 20 MG CAP PO SCH (07:59)
[2019-04-15] MEDS: MELOXICAM (MOBIC) 7.5 MG TAB PO SCH ×2 (07:59→20:47)
[2019-04-15] MEDS: VENLAFAXINE **XR** 75MG CAPSULE PO SCH (07:59)
[2019-04-15] MEDS: diphenhydrAMINE 50 MG CAP PO SCH ×3 (07:59→20:47)
[2019-04-15] MEDS: POTASSIUM CHLORIDE 10 MEQ SR TABLET PO SCH ×2 (08:00→20:47)
[2019-04-15] MEDS: TRIAMCINOLONE ACET 0.1% OINTMENT 80 GM TOP SCH ×2 (08:00→20:47)
[2019-04-15] MEDS: NICOTINE 7 MG/24 HR TRANSDERMAL TD SCH (08:00)
[2019-04-15] MEDS: NORCO, ANEXSIA 5/325MG TABLET (HYDROcodone/ACETAMINOPHEN) PO PRN ×2 (08:01→16:21)
[2019-04-15] MEDS: SODIUM CHLORIDE 0.9% INJ 10 ML SYR IV PRN (08:59)
[2019-04-15 09:30] LABS: CALCIUM LEVEL 8.7 MG/DL (8.5-10.1); CREATININE FOR GFR 1.37 MG/DL (0.55-1.30); GLOMERULAR FILTRATION RATE 43.8 (>58); POTASSIUM SERUM 4.1 MEQ/L (3.5-5.1)
[2019-04-15 10:40] LABS: SOURCE, BODY FLUID LT SHOULDER; SYNOVIAL FLUID COLOR PALE YELLOW (YELLOW)
--- NOTE | 2019-04-15 13:10 | IPNPDOC ---
Text Note Date of Service The patient was seen on 04/15/19. NOTE S: Overnight patient had fevers, first at 100.9, second one at 101.2. This was her MAXIMUM TEMPERATURE. Tylenol was administered, orders for blood cultures was placed. . She had no acute complaints this morning O: VITALS : As below GEN: Alert, no distress HEENT: Improving thrush Heart: +S1S2, no murmurs, rubs or gallops LUNGS: CTAB, good air entry Abd: Soft, nontender SKIN: Skin excoriations around the face, and track perez, PICC, EXT: Erythematous, nonraised, nonpruritic rash on patient's bilateral lower extremity A/P: 48-year-old female with a past medical history significant for IV drug use. Currently being treated for probable infective endocarditis. Patient has been on IV vancomycin since 04/02/2019. When and date scheduled for April 16. She will follow-up as an outpatient with infectious disease for continue therapy with Nessa #Overnight Fever: Most like secondary to daptomycin fever -No new cough, no no diarrhea, no abdominal pain, no dysuria, no frequency of urination, no leukocytosis. -Fluids aspirate from should also was negative for septic arthritis #MRSA bacteremia with highly probable infective endocarditis - ID consultation - Discontinue vancomycin, will start patient on daptomycin due to drug rash associated with it, seems -TTE negative for vegetations -MARIANA failed due to inability to get the transesophageal probe into the esophagus due to presence of cervical plates So infective endocarditis cannot be ruled out. - WBC continues to trend down -Blood culture negative on 04/02/2019, and 04/03/2019 no growth. Will need 4 weeks of antibiotics starting from April 02. 2 weeks in the hospital followed by 2 weeks as an outpatient with Nessa. -PICC line placed for IV antibiotics #Drug rash: Secondary to vancomycin use. Patient was discontinued on vancomycin this morning. She has been placed on daptomycin. #Septic emboli Discontinue IV Vancomycin 750 mg Q24hr. Start Daptomycin 500 mg q24hr as alternative to Vancomycin #Shoulder Pain -2 ml of yellowish fluid was aspirated by IR -Fluid positive for 4617, WBC with 57% polymorphonuclear site. This does meet the criteria for septic joint, which requires 50,000 WBCs with 75% polymorphonuclear site -Will continue current antibiotic treatment plan #Depression -Restart patient on venlafaxine #Pain control -Mobic, [place] 1 tab every 8hrs, -Omeprazole for prophylaxis against ulcers #Insomnia -30 mg of ramelteon daily at bedtime # Left Steroclavicular joint pain 2/2 posible septic arthritis -Pending ultrasound-guided abscess drainage #Chronic Hep C -Will most likely need Hep C treatment once is IVDU free - Has been vaccinated for hep A #Wrist and Shoulder Pain -Ortho consult: -no suspicion of septic arthritis, per orthopedic surgeon. #Tobacco abuse -Nicotine replacement therapy #Polysubstance abuse -Tested positive for opiates, amphetamine and cannabis -No signs of withdrawal during hospital stay #Hypokalemia - Oral replacements off #Multiple psych problems will need referral to psych as outpatient. 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 #DVT - mechanical prophylaxis VS,Fishbone, I+O VS, Fishbone, I+O Laboratory Tests 04/15/19 00:15 04/15/19 09:00 Vital Signs Date Time Temp Pulse Resp B/P (MAP) Pulse Ox O2 Delivery O2 Flow Rate FiO2 04/15/19 11:57 98.4 04/15/19 08:31 20 04/15/19 06:00 102 129/89 (102) 97 Room Air I&O- Last 24 Hours up to 6 AM 04/15/19 06:00 Intake Total 1710 ml Output Total 1050 ml Balance 660 ml GME ATTESTATION GME ATTESTATION My faculty preceptor for this patient encounter was physically present during the encounter and was fully available. All aspects of the patient interview, examination, medical decision making process, and medical care plan development were reviewed and approved by the faculty preceptor. The faculty preceptor is aware and concurs with the plan as stated in the body of this note and will att est to such by his/her cosignature. ATTENDING NOTE Ms. Doty had a fever overnight after being switched from vanc to dapto in the setting of developing a rash and a mild PANFILO. I suspect that this may be a drug fever but will have to be cautious as she had MRSA bacteremia with presumed endocarditis and known septic emboli. So we alerted ID who recommended a repeat TTE to investigate if there is a now apparent veg or developing abscess, and she had a shoulder joint aspirated to r/o septic arthritis with pending studies. For now will continue dapto and watch the fever curve while studies are ongoing. If negative and no persistent fever, we will still plan on Wednesday discharge with plan for 2 weeks more for antibiotics with weekly dalvance to complete the course. JAVIER ORONA DO Apr 15, 2019 13:10 MARY NEVAREZ MD Apr 16, 2019 07:21
[2019-04-15 14:00] VITALS: BP 143/82
[2019-04-15] MEDS: DAPTOmycin 500 MG in NS 50 ML IV SCH (14:00)
[2019-04-15] MEDS ORDERED: FLUCONAZOLE 50MG TABLET PO ONE (17:00)
--- NOTE | 2019-04-15 17:46 | DS.PDOC ---
Discharge Summary General Date of Admission Mar 30, 2019 at 17:49 Date of Discharge 04/16/2019 Attending Physician: MARY NEVAREZ MD Specialist/Consultants Involve: Betty Jose MD Specialist/Consultants Involve Dr. Cannon Discharge Summary DISCHARGE DIAGNOSIS: MRSA bacteremia with highly probable infective endocarditis and Septic emboli SECONDARY DIAGNOSIS: 1. Drug Fever and Rash 2/2 Vancomycin 2. Left Sternoclavicular and Shoulder pain 2/2 septic emboli 3. Depression 4. Insomnia 5. Vulvovaginitis 6. Chronic Hepatitis C 7. Tobacco abuse 8. Polysubstance abuse 9. Chronic low back pain PROCEDURES PERFORMED DURING STAY: 04/03/2019 MARIANA attempt The patient received viscous lidocaine to gargle. Following this, she received propofol IV per [employer] BRICK. After receiving adequate sedation, multiple attempts at esophageal intubation with a transesophageal echocardiogram probe were made by Dr. Mtz, which were unsuccessful. I understand the patient had previous cervical spine plate. The procedure was abandoned by Dr. Mtz due to inability to get the transesophageal probe into the esophagus. 04/14/2019 Left subacromial subdeltoid bursal effusion aspiration The left subdeltoid effusion was localized using ultrasound guidance. The skin was prepped and draped in a sterile fashion. 1% lidocaine was used as a local anesthetic. Using ultrasound guidance a 18-gauge needle was inserted and advanced into the fluid. 2 ml of yellow colored fluid was withdrawn and sent to lab. HOSPITAL COURSE: Patient was admitted and started on empiric antibiotic course for presumed MRSA bacteremia due to consistent positive blood cultures. Trans-thoracic echocardiogram was negative for any valvular vegetations. Could not follow this up with transesophageal echocardiogram due to patient's cervical surgery. Patient was treated for presumed infective endocarditis with infectious disease consultation. Her antibiotic count down was started following her first repeat negative blood culture. During her hospital stay, she was also evaluated for possible joint infection in her shoulders, wrists and clavicle. All of which were negative. Patient was treated during her entire stay with IV vancomycin that was discontinued 2 days prior to discharge and placed on daptomycin due to all drug rash. Her pain was adequately controlled during her hospital stay. Her hospital course was also complicated by 2 episodes of vaginal vaginitis that was adequately treated with Diflucan. Prior to discharge she had a repeat transthoracic echocardiogram that was grossly normal without evidence of ve getations after she had a fever shortly after switching to daptomycin. She was discharged in stable condition. Patient was happy to be going home. She will follow up with 2 weeks of outpatient delvance therapy once a week. Her first dose will be Wednesday04/16/2019. DISCHARGE MEDICATIONS: Please see below. ALLERGIES: Please see below. SUBJECTIVE: Patient [otherwise patient denies chest pain, shortness, breath, nausea, vomiting, fevers, chills] OBJECTIVE: PHYSICAL EXAMINATION: VITAL SIGNS: Please see below. VITALS : As below GEN: Alert, no distress HEENT: Improving thrush Heart: +S1S2, no murmurs, rubs or gallops LUNGS: CTAB, good air entry Abd: Soft, nontender SKIN: Skin excoriations around the face, and track perez, PICC, EXT: Erythematous, nonraised, nonpruritic rash on patient's bilateral lower extremity LABORATORY DATA, MICROBIOLOGY: Please see below. IMAGING STUDIES: 03/30/2019 Chest x-ray Impression: Negative PA and lateral chest. There is no interval change Abdominal pelvis CT Impression: There are no renal calculi. There is no hydronephrosis. There is no perinephric stranding. There is a right renal cyst. The kidneys are otherwise unremarkable. There is a cholecystectomy and hysterectomy. The bladder is unremarkable. The appendix is unremarkable. There is no ascites. No bowel distension. There has been interim surgical fusion of the lumbosacral spine. Wrist x-rays Impression: Moderate to significant erosive and presumed arthritic degenerative changes. Findings are nonspecific and may be related to old injury as well as underlying neuropathy. Head CT Impression: Negative noncontrast head CT. Wrist Xray Impression: Moderate presumed arthritic degenerative changes. Extremity CT Impression: 1. Evidence of tenosynovitis, particularly involving extensor carpi ulnaris and to a lesser degree some of the dorsal extensor tendon sheaths. There is fluid throughout the carpus with involvement of at least 2 compartments. There is diffuse arthritic erosive change and secondary mild degenerative changes of the carpus and distal radius and ulna. Findings are consistent with an inflammatory arthritis which may include septic arthritis, however, the extensive involvement is more suspicious for rheumatoid or rheumatoid variant. 2. No acute fracture. 03/31/2019 Chest x-ray Impression: 1. Interval placement of right internal jugular central line to the distal superior vena cava since 03/30/2019. No pneumothorax. 2. Otherwise stable chest. 04/01/2019 Liver ultrasound Impression: 1. Mild hepatomegaly (18 cm) with slight enlargement of the left hepatic lobe and mild diffuse increased echogenicity of the liver parenchyma. This may reflect some fatty infiltration. 2. There is no intrahepatic biliary dilatation, hepatic mass or ascites. 3. 1.9 x 1.5 x 1.2 cm nodule adjacent to the pancreatic head near the melissa hepatis, likely a lymph node. This is obscured on CT because of shadowing from the numerous metal clips from cholecystectomy. No other nodules, pancreatic mass or pancreatic ductal dilatation. The common duct is 5.1 mm and normal. 4. 2.8 cm simple cyst right kidney, no other finding. Shoulder x-ray Impression: 1. Minimal degenerative changes AC joint without fracture, avulsion, soft-tissue calcification or other acute finding. Wrist x-ray Impression: 1. Erosive arthritis involving multiple carpal bones, distal ulna and possibly the radius. The bones are demineralized. No ulnar deviation of the fingers. There are post-traumatic changes in the dorsal aspect distal articular surface of the radius. No definite acute fracture. Prominent soft tissue swelling on the lateral view. Not much change management lead the past 48 hours. 04/03/2019 Chest MRI Impression: Soft tissue edema and cellulitis in the soft tissues of the left chest wall surrounding the clavicle, particularly in the supraclavicular region. Small amount of scattered fascial plane fluid is seen diffusely without a focal drainable fluid collection or abscess identified. Small amount of fluid is seen in the subdeltoid bursa. There is no evidence of osteomyelitis of the left clavicle. 04/11/2019 Chest MRI Impression: Inflammatory changes centered about the medial clavicle, head and left manubrio- clavicular articulation. Medioclavicular osteomyelitis is difficult to exclude. No definite cortical bone erosion. There is less meghna-clavicular soft tissue edema. There is a small fluid collection apparent beneath the medial fibers of the left pectoralis muscle. There is an apical lung nodule of uncertain signific ance. A left subacromial subdeltoid bursal effusion is seen. Consider sternoclavicular CT study and chest CT study. Preferably with IV contrast. 04/12/2019 CT chest Impression: 1. There is no CT evidence of osteomyelitis in the medial clavicle or manubrium on the left side. There is mild soft tissue swelling overlying the left sternoclavicular articulation. 2. Aberrant right subclavian. 3. Multiple pulmonary nodules consistent with septic emboli ECHOCARDIOGRAM: 03/31/2019 TTE CONCLUSION: Normal left ventricular systolic function. Trace pericardial effusion, no evidence of cardiac tamponade. Trace to mild tricuspid regurgitation. The calculated pulmonary artery sys tolicpressure varies between 30-40 mmHg. Trivial aortic stenosis. The patient was noted to be mildly tachycardiac during the test. 04/03/2019 MARIANA The patient received viscous lidocaine to gargle. Following this, she received propofol IV per [employer] BRICK. After receiving adequate sedation, multiple attempts at esophageal intubation with a transesophageal echocardiogram probe were made by Dr. Mtz, which were unsuccessful. I understand the patient had previous cervical spine plate. The procedure was abandoned by Dr. Mtz due to inability to get the transesophageal probe into the esophagus. 04/15/2019: TTE 1. No vegetations. 2. Normal left ventricle internal dimensions and wall thickness. Normal regional left ventricle (LV) wall motion and wall thickening. Normal LV systolic function. Left ventricular ejection fraction (LVEF) 65% by visual estimate. Normal LV diastolic function. 3. Very mild aortic valve sclerosis of a three-cuspid aortic valve. Very mild aortic regurgitation. 4. Otherwise, normal appearing echocardiogram Doppler findings. DISPOSITION: Home DISCHARGE CONDITION: Improved and Stable. FOLLOW UP: 1. Follow-up with primary care provider in 7-10 days 2. Follow up with infectious disease in 10-14 days 3. Please return on Wednesday for your Delvance infusion as scheduled 4. Please abstain from using drugs 5. If symptoms return or worsen please call your PCP or return to the ER ACTIVITY: As prior to admission DIET: As prior to admission TIME SPENT ON DISCHARGE: 50 minutes Vital Signs/I&Os Vital Signs Date Time Temp Pulse Resp B/P (MAP) Pulse Ox O2 Delivery O2 Flow Rate FiO2 04/15/19 16:21 20 04/15/19 14:00 97.9 96 143/82 (102) 98 Room Air I&O- Last 24 Hours up to 6 AM 04/15/19 06:00 Intake Total 1710 ml Output Total 1050 ml Balance 660 ml Laboratory Data Labs 24H Laboratory Tests 2 2/8/20 00:15: Nucleated Red Blood Cells % (auto) 0.0, Lactic Acid Level 1.2 04/15/19 09:00: Anion Gap 6L, Glomerular Filtration Rate 43.8L, Calcium Level 8.7, C-Reactive Protein, Quantitative 15.00H CBC/BMP Laboratory Tests 04/15/19 00:15 04/15/19 09:00 Microbiology Microbiology 04/15/19 Blood Culture, Received Pending 04/14/19 Anaerobic Culture, Received Pending 04/14/19 Abscess Culture, Received Pending 04/14/19 Gram Stain - Final, Complete Discharge Medications Scheduled Ergocalciferol (Vitamin D2) (Vitamin D2) 50,000 Units Cap, 50,000 UNITS PO QWEEK, (Reported) Estradiol (Estrace) 0.5 Mg Tablet, 0.5 MG PO DAILY, (Reported) Meloxicam (Meloxicam) 15 Mg Tablet, 15 MG PO DAILY, (Reported) Mirtazapine (Remeron) 30 Mg Tablet, 30 MG PO QHS, (Reported) Trazodone HCl (Trazodone HCl) 100 Mg Tablet, 100 MG PO QHS, (Reported) Venlafaxine HCl (Effexor Xr) 150 Mg Cap.er.24h, 150 MG PO DAILY, (Reported) Miscellaneous Medications [Med Rec Comment] , (Reported) LIST OBTAINED FROM [facility] Allergies Coded Allergies: Penicillins (Verified Allergy, Intermediate, RASH, 07/08/18) Sulfa (Sulfonamide Antibiotics) (Verified Allergy, Intermediate, RASH, 07/08/18) trimethoprim (Verified Allergy, Intermediate, RASH, 07/08/18) tramadol (Verified Adverse Reaction, Intermediate, ITCHING, URINARY RETENTION, 07/08/18) GME ATTESTATION GME ATTESTATION My faculty preceptor for this patient encounter was physically present during the encounter and was fully available. All aspects of the patient interview, examination, medical decision making process, and medical care plan development were reviewed and approved by the faculty preceptor. The faculty preceptor is aware and concurs with the plan as stated in the body of this note and will attest to such by his/her cosignature. ATTENDING NOTE 48yo W with [employer] who was admitted with severe sepsis and found to have MRSA bacteremia and treated with vancomycin for 12d c/b drug rash and switch to dapto for 2d prior to discharge with plan for 2 more weeks of antibiotics with weekly dalvance per ID. Trans-thoracic echocardiogram was negative for any valvular vegetations x 2. Unfortunately, we could not follow this up with trans esophageal echocardiogram due to patient's prior cervical surgery. Patient is therefore being treated for presumed infective endocarditis with infectious disease consultation recommending extended antibiotic therapy thus treatment for 4 weeks. Her antibiotic count down was started following her first repeat negative blood culture. During her hospital stay, she was also evaluated for possible joint infection in her shoulders, wrists and clavicle. Her hospital course was also complicated by 2 episodes of vaginal vaginitis that was adequately treated with Diflucan. Prior to discharge she had a repeat transthoracic echocardiogram that was grossly normal without evidence of vegetations after she had a fever shortly after switching to daptomycin. She is now being discharged in stable condition. She will follow up with 2 weeks of outpatient dalvance therapy once a week. Her first dose will be Wednesday04/16/2019. JAVIER OORNA DO Apr 15, 2019 17:46 MARY NEVAREZ MD Apr 16, 2019 07:40
--- NOTE | 2019-04-15 19:55 | ECHO ---
DATE OF PROCEDURE: 04/15/2019 REFERRING PHYSICIAN: Dr. Fran Mcallister INDICATION: Infective endocarditis. HEIGHT: 147 cm WEIGHT: 62 kg 2D MEASUREMENTS: Aortic annulus: 1.9 cm Aortic root: 2.7 cm Left atrium: 3.0 cm Left ventricle diastole: 4.2 cm Ventricular septum: 0.95 cm Posterior wall: 0.90 cm Inferior vena cava: 1.5 cm with much greater than 50% respiratory variation DOPPLER MEASUREMENTS: Very mild aortic regurgitation. Aortic valve velocity: 138 cm/s LVOT velocity: 129 cm/s Very mild tricuspid regurgitation. Very mild mitral regurgitation. Mitral E velocity: 95.5 cm/s Mitral A velocity: 86.1 cm/s Mitral deceleration time: 148 ms Estimated right ventricle systolic pressure: 29 mmHg, assuming a right atrial pressure of 5 mmHg Pulmonary acceleration time: 176 ms MITRAL ANNULAR TISSUE DOPPLER: E prime septal: 7.7 cm/s E prime latera: 11.3 cm/s DESCRIPTION: Rhythm was sinus. Image quality was good. No pericardial effusion. This was a 2D, M-mode, color flow Doppler, and pulse wave Doppler examination, including mitral annular tissue Doppler. CONCLUSIONS: 1. No vegetations. 2. Normal left ventricle internal dimensions and wall thickness. Normal regional left ventricle (LV) wall motion and wall thickening. Normal LV systolic function. Left ventricular ejection fraction (LVEF) 65% by visual estimate. Normal LV diastolic function. 3. Very mild aortic valve sclerosis of a three-cuspid aortic valve. Very mild aortic regurgitation. 4. Otherwise, normal appearing echocardiogram Doppler findings.
[2019-04-15] MEDS: MIRTAZAPINE 15 MG TAB PO SCH (20:47)
[2019-04-15 22:00] VITALS: BP 142/86
[2019-04-16] MEDS: NORCO, ANEXSIA 5/325MG TABLET (HYDROcodone/ACETAMINOPHEN) PO PRN ×2 (02:18→10:31)
[2019-04-16] MEDS: IBUPROFEN 400 MG TAB PO PRN (04:42)
[2019-04-16] MEDS: SODIUM CHLORIDE 0.9% INJ 10 ML SYR IV SCH (05:49)
[2019-04-16 06:00] VITALS: BP 153/108
[2019-04-16 06:30] VITALS: BP 142/92
[2019-04-16] MEDS: ACETAMINOPHEN TAB 650MG DOSE (2X325MG) PO PRN (07:38)
[2019-04-16] MEDS ORDERED: IBUP40TA PO (08:03)
[2019-04-16] MEDS ORDERED: DOCU100C16 PO (08:03)
[2019-04-16] MEDS ORDERED: HYDR-3715 PO (08:03)
[2019-04-16] MEDS ORDERED: TRIA1OI80 TOP (08:03)
[2019-04-16] MEDS ORDERED: ACET1TAB55 PO (08:03)
[2019-04-16] MEDS: OMEPRAZOLE 20 MG CAP PO SCH (08:52)
[2019-04-16] MEDS: diphenhydrAMINE 50 MG CAP PO SCH (08:52)
[2019-04-16] MEDS: VENLAFAXINE **XR** 75MG CAPSULE PO SCH (08:53)
[2019-04-16] MEDS: POTASSIUM CHLORIDE 10 MEQ SR TABLET PO SCH (08:53)
[2019-04-16] MEDS: TRIAMCINOLONE ACET 0.1% OINTMENT 80 GM TOP SCH (08:53)
[2019-04-16] MEDS: MELOXICAM (MOBIC) 7.5 MG TAB PO SCH (08:53)
[2019-04-16] MEDS: NICOTINE 7 MG/24 HR TRANSDERMAL TD SCH (08:53)
[2019-04-16] MEDS: DAPTOmycin 500 MG in NS 50 ML IV SCH (09:11)
[2019-04-17] MEDS ORDERED: ACET650T15 PO (12:19)
[2019-04-17] MEDS ORDERED: SENN1TAB41 PO (12:19)
[2019-04-17] MEDS ORDERED: TRIA1CR80 TOP (12:19)
[2019-04-17] MEDS ORDERED: NORC1TAB7 PO ×2 (12:19→13:44)
[2019-04-17] MEDS ORDERED: IBUP-1114 PO ×2 (12:19→13:44)
[2019-04-17] MEDS ORDERED: DOCU8.6T PO (13:44)
[2019-04-17] MEDS ORDERED: TRIA0.022 TOP (13:44)
== END 2019-04-16 12:07 | disposition home or self-care (01) | DRG 917 ==
LOC: EDBD 11:41 → M ED 11:41 → EEVIPCON 17:49 → M ED INP 17:49 → ENRESERVTM 21:30 → ENRESERVDT 21:30 → M ICU 22:38 → M PCU 04-02 14:53 → M MSPAV 04-06 09:48
PROVIDERS: ADMIT Internal Medicine; ATTEND Internal Medicine
PROC: 02HV33Z Insertion of Infusion Device into Superior Vena Cava, Percutaneous Approach (ICD-10-PCS; principal; 2019-04-05 14:00)
PROC: 0M9 Bursae and Ligaments, Drainage (ICD-10-PCS; 2019-04-14)
DX: T43.621A Poisoning by amphetamines, accidental (unintentional), initial encounter (principal); G93.41 Metabolic encephalopathy; R65.20 Severe sepsis without septic shock; I33.0 Acute and subacute infective endocarditis; A41.9 Sepsis, unspecified organism; F19.20 Other psychoactive substance dependence, uncomplicated; E87.1 Hypo-osmolality and hyponatremia; N39.0 Urinary tract infection, site not specified; E87.2 Acidosis; M00.0 Staphylococcal arthritis and polyarthritis; I76 Septic arterial embolism; T40.1X1A Poisoning by heroin, accidental (unintentional), initial encounter; N76.0 Acute vaginitis; I10 Essential (primary) hypertension; R00.0 Tachycardia, unspecified; R06.82 Tachypnea, not elsewhere classified; G89.29 Other chronic pain; M54.2 Cervicalgia; M54.5 Low back pain; M48.00 Spinal stenosis, site unspecified; M79.7 Fibromyalgia; F32.9 Major depressive disorder, single episode, unspecified; F41.9 Anxiety disorder, unspecified; Z91.5 Personal history of self-harm; B18.2 Chronic viral hepatitis C; Z98.1 Arthrodesis status; M43.27 Fusion of spine, lumbosacral region; Z90.49 Acquired absence of other specified parts of digestive tract; Z90.79 Acquired absence of other genital organ(s); E87.6 Hypokalemia; Z88.8 Allergy status to other drugs, medicaments and biological substances; Z88.2 Allergy status to sulfonamides; R41.82 Altered mental status, unspecified; I80.8 Phlebitis and thrombophlebitis of other sites; D69.6 Thrombocytopenia, unspecified; M25.512 Pain in left shoulder; M25.531 Pain in right wrist; T36.8X5A Adverse effect of other systemic antibiotics, initial encounter; L27.0 Generalized skin eruption due to drugs and medicaments taken internally; F17.210 Nicotine dependence, cigarettes, uncomplicated

== ENCOUNTER 2019-04-24 11:39 | Outpatient (CLI) | payer MEDICAID ==
[~2019-04-24] VITALS: Ht 147.3 cm; Wt 54.5 kg
[~2019-04-24 11:39] MED LIST changes: +ACET1TAB55 PO; +ACET650T15 PO; +DOCU100C16 PO; +DOCU8.6T PO; +EFFE150C2 PO; +ESTR0.5T3 PO; +HYDR-3715 PO; +IBUP-1114 PO; +IBUP40TA PO; +MED REC COMMENT; +MELO15TA28 PO; +NORC1TAB7 PO; +REME30TA PO; +SENN1TAB41 PO; +TRAZ-257 PO; +TRIA0.022 TOP; +TRIA1CR80 TOP; +TRIA1OI80 TOP; +VITA50005 PO
[2019-04-24 12:03] VITALS: BP 132/73
[2019-04-24] MEDS ORDERED: DALBAVANCIN 1,500 MG in D5W 250 ML IV ONE (12:30)
[2019-04-24 13:20] VITALS: BP 135/83
== END 2019-04-24 13:20 | disposition home or self-care (01) ==
LOC: M INFU 11:39
PROVIDERS: ATTEND Internal Medicine Infectious Disease
DX: I33.0 Acute and subacute infective endocarditis (principal); Z88.0 Allergy status to penicillin; Z88.2 Allergy status to sulfonamides; Z88.5 Allergy status to narcotic agent
CPT/HCPCS: 96365; J0875

== ENCOUNTER → 2019-05-01 | Outpatient (REF) | payer OTHER ==
[2019-05-01 18:11] LABS: BASO # 0.1 10^3/uL (0.0-0.2); BASO % 0.8 % (0.0-1.0); EOS # 0.6 10^3/uL (0.0-0.5); EOS % 4.9 % (0.0-3.0); HEMATOCRIT 24.9 % (36.0-47.0); HEMOGLOBIN 7.8 g/dl (12.0-15.5); LYMPH # 2.8 10^3/uL (1.5-5.0); LYMPH % 22.3 % (24.0-44.0); MEAN CORPUSCULAR HEMOGLOBIN 26.3 pg (27.0-33.0); MEAN CORPUSCULAR HGB CONC 31.3 g/dl (32.0-36.5); MEAN CORPUSCULAR VOLUME 83.8 fl (80.0-96.0); MONO # 0.8 10^3/uL (0.0-0.8); MONO % 6.3 % (0.0-5.0); NEUTROPHILS # 8.3 10^3/uL (1.5-8.5); NEUTROPHILS % 65.3 % (36.0-66.0); PLATELET COUNT, AUTOMATED 525 10^3/uL (150-450); RED BLOOD COUNT 2.97 10^6/uL (4.00-5.40); WHITE BLOOD COUNT 12.7 10^3/uL (4.0-10.0)
[2019-05-01 18:19] LABS: ALBUMIN 2.7 GM/DL (3.2-5.2); BILIRUBIN,TOTAL 0.1 MG/DL (0.2-1.0); C REACTIVE PROTEIN QUANTITATIV 8.21 MG/DL (0.00-0.30); CALCIUM LEVEL 8.9 MG/DL (8.5-10.1); CREATININE FOR GFR 1.76 MG/DL (0.55-1.30); GLOMERULAR FILTRATION RATE 32.8 (>58); PERCENT SATURATION 12.4 % (13.2-45.0); POTASSIUM SERUM 4.8 MEQ/L (3.5-5.1); TOTAL PROTEIN 8.8 GM/DL (6.4-8.2)
[2019-05-01 18:21] LABS: APPEARANCE, URINE CLOUDY (CLEAR); BACTERIA, URINE AUTO 1+ (NEGATIVE); BILIRUBIN, URINE AUTO NEGATIVE (NEGATIVE); BLOOD, URINE BLOOD 3+ (NEGATIVE); COLOR, URINE YELLOW (YELLOW); GLUCOSE, URINE (UA) AUTO NEGATIVE (NEGATIVE); GRANULAR CAST, URINE AUTO 16 /LPF; KETONE, URINE AUTO NEGATIVE (NEGATIVE); LEUKOCYTE ESTERASE, URINE AUTO NEGATIVE (NEGATIVE); MUCUS, URINE SMALL (NEGATIVE); NITRITE, URINE AUTO NEGATIVE (NEGATIVE); PROTEIN, URINE AUTO 2+ mg/dL (NEGATIVE); RBC, URINE AUTO 107 /HPF (0-3); SPECIFIC GRAVITY URINE AUTO 1.014 (1.002-1.035); SQUAMOUS EPITHELIAL CELL UR AU 1 /HPF (0-6); UROBILINOGEN, URINE AUTO 0.2 mg/dL (0.0-2.0); WBC, URINE AUTO 12 /HPF (0-3)
[2019-05-01 18:48] LABS: ERYTHROCYTE SEDIMENTATION RATE 129 mm/hr (0-20)
== END ==
LOC: M SFHCPLAZ 13:08
PROVIDERS: ATTEND Internal Medicine Infectious Disease
DX: R30.0 Dysuria (principal); B95.62 Methicillin resistant Staphylococcus aureus infection as the cause of diseases classified elsewhere; D50.9 Iron deficiency anemia, unspecified; Z86.19 Personal history of other infectious and parasitic diseases

== ENCOUNTER → 2019-05-11 | Outpatient (CLI) | payer OTHER ==
--- NOTE | 2019-05-11 10:56 | REPPI ---
CHEST, TWO VIEWS: Two views of the chest performed and compared to a prior chest CT 04/12/2019 and chest radiograph 03/31/2019. The nodules in the left lung seen on the CT scan are not visualized radiographically. No infiltrate is seen bilaterally. The heart is normal in size. Mediastinal silhouette is unremarkable. Metallic plate and screws are seen in the lower cervical spine. Metallic clips in the right upper quadrant. IMPRESSION: No acute infiltrate. The lung nodules seen in the left lung on the CT of the chest 04/12/2019 are not seen radiographically on today's exam. Electronically Signed by Josué Ramirez MD 05/11/2019 07:44 P
== END ==
LOC: M PLAIMG 08:35
PROVIDERS: ATTEND Internal Medicine Infectious Disease
DX: Z18.10 Retained metal fragments, unspecified (principal); B95.62 Methicillin resistant Staphylococcus aureus infection as the cause of diseases classified elsewhere

== ENCOUNTER → 2019-05-12 | Outpatient (CLI) | payer OTHER ==
[2019-05-12 14:11] LABS: BASO # 0.1 10^3/uL (0.0-0.2); BASO % 0.8 % (0.0-1.0); EOS # 0.4 10^3/uL (0.0-0.5); EOS % 4.4 % (0.0-3.0); HEMATOCRIT 28.2 % (36.0-47.0); HEMOGLOBIN 8.7 g/dl (12.0-15.5); LYMPH % 21.8 % (24.0-44.0); MEAN CORPUSCULAR HEMOGLOBIN 24.9 pg (27.0-33.0); MEAN CORPUSCULAR HGB CONC 30.9 g/dl (32.0-36.5); MEAN CORPUSCULAR VOLUME 80.8 fl (80.0-96.0); MONO # 0.6 10^3/uL (0.0-0.8); MONO % 6.9 % (0.0-5.0); NEUTROPHILS # 5.9 10^3/uL (1.5-8.5); NEUTROPHILS % 65.8 % (36.0-66.0); PLATELET COUNT, AUTOMATED 442 10^3/uL (150-450); RED BLOOD COUNT 3.49 10^6/uL (4.00-5.40)
[2019-05-12 14:27] LABS: ALBUMIN 3.1 GM/DL (3.2-5.2); BILIRUBIN,TOTAL 0.2 MG/DL (0.2-1.0); CALCIUM LEVEL 9.4 MG/DL (8.5-10.1); CREATININE FOR GFR 1.72 MG/DL (0.55-1.30); GLOMERULAR FILTRATION RATE 33.7 (>58); POTASSIUM SERUM 4.9 MEQ/L (3.5-5.1); TOTAL PROTEIN 8.9 GM/DL (6.4-8.2)
[2019-05-12 14:36] LABS: ERYTHROCYTE SEDIMENTATION RATE 126 mm/hr (0-20)
== END ==
LOC: M LAB 13:00
PROVIDERS: ATTEND Internal Medicine Infectious Disease
DX: Z11.9 Encounter for screening for infectious and parasitic diseases, unspecified (principal); B95.62 Methicillin resistant Staphylococcus aureus infection as the cause of diseases classified elsewhere

== ENCOUNTER 2019-05-26 22:21 | Inpatient (IN) | payer OTHER ==
[~2019-05-26] VITALS: Ht 147.3 cm; Wt 55.3 kg
[~2019-05-26 22:21] MED LIST changes: -FERR325T18 PO; -OMEP1CAP73 PO; -QC A650T3 PO; -SENN-50 PO
[2019-05-27] MEDS ORDERED: SENN-50 PO (00:03)
[2019-05-27] MEDS ORDERED: TRIA1CR80 TOP (00:05)
[2019-05-27] MEDS ORDERED: OMEP1CAP73 PO (00:08)
[2019-05-27] MEDS ORDERED: HYDR-3363 PO (00:08)
[2019-05-27] MEDS ORDERED: IBUP40TA PO (00:08)
[2019-05-27] MEDS ORDERED: QC A650T3 PO (00:08)
[2019-05-27] MEDS ORDERED: methylPREDNISolone INJ 40 MG/1 ML VIAL (J2920) IV STA (00:10)
[2019-05-27] MEDS ORDERED: EFFE75CA2 PO (00:47)
[2019-05-27] MEDS: NS 1,000 ML IV SCH ×3 (00:48→18:50)
--- NOTE | 2019-05-27 01:05 | HPEPDOC ---
General Date of Admission May 26, 2019 at 22:22 Date of Service: May 26, 2019 Chief Complaint The patient is a 48-year-old female admitted with a reason for visit of Renal Failure,Vasculitis. 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 Patient was recently treated for bacterial endocarditis that occurred in early March and April. During the latter half of her hospitalization, patient started to develop some lesions in the lower extremities. Over the past several months, the condition is getting worse and is now associated with worsening burning as well as itching. These lesions appear to come and go without any distinct pattern. Given her skin condition, she was referred to see director medical economics today. Patient received a biopsy of the lesions and also had lab work drawn for analysis. Her lab work showed a worsening renal function compared to her baseline and was thus recommended to come into the ER for further evaluation. Patient currently denies any recent fevers, chills, wor sening shortness of breath, abdominal pain, chest pain. She has no recent travel history. She denies any nausea, vomiting, diarrhea as well. Patient does also report some difficulty urinating and a fullness in her bladder and was told that she also had a UTI today. However, she did not receive any antibiotics for treatment. Patient has a half pack per day smoking history for the past 30 years. She missed a IV drug abuse with injecting Mollie with the last use being approximately 3 days ago. She also reports smoking cannabis occasionally. She currently lives at home by herself and has been on disability for spinal stenosis. She does not drink alcohol. Patient reports no significant family history of vasculitis. She reports her father had heart problems but is unaware of the extent. She states that her mother is pretty healthy and does not know if she has any medical conditions. She had a brother that from alcohol abuse recently. PAST MEDICAL HISTORY: 1. Spinal stenosis. 2. Bacterial endocarditis, status post IV antibiotic therapy. 3. Anxiety. Home Medications Scheduled Ergocalciferol (Vitamin D2) (Vitamin D2) 50,000 Units Cap, 50,000 UNITS PO 1XWK, (Reported) Estradiol (Estrace) 0.5 Mg Tablet, 0.5 MG PO DAILY, (Reported) Hydroxyzine HCl (Hydroxyzine HCl) 25 Mg Tablet, 25 MG PO QHS, (Reported) Meloxicam (Meloxicam) 15 Mg Tablet, 15 MG PO DAILY, (Reported) Mirtazapine (Remeron) 30 Mg Tablet, 30 MG PO QHS, (Reported) Omeprazole (Omeprazole) 20 Mg Capsule.dr, 20 MG PO DAILY, (Reported) Trazodone HCl (Trazodone HCl) 100 Mg Tablet, 100 MG PO QHS, (Reported) Triamcinolone Acet (Triamcinolone Acetonide 0.1% Crm) 80 Gm Cream..g., 1 APLCT TOP BID, (Reported) APPLY TO RASH ON LEGS Venlafaxine HCl (Effexor Xr) 150 Mg Cap.er.24h, 150 MG PO DAILY, (Reported) Scheduled PRN Acetaminophen (Acetaminophen 8 Hour) 650 Mg Tablet.er, 650 MG PO TID PRN for PAIN, (Reported) Ibuprofen (Ibuprofen) 400 Mg Tablet, 400 MG PO Q6H PRN for PAIN, (Reported) Sennosides/Docusate Sodium (Senna Plus Tablet) 1 Each Tablet, 1 TAB PO BID PRN for CONSTIPATION, (Reported) Allergies Coded Allergies: vancomycin (Verified Allergy, Severe, 05/26/19) Penicillins (Verified Allergy, Intermediate, RASH, 07/08/18) Sulfa (Sulfonamide Antibiotics) (Verified Allergy, Intermediate, RASH, 07/08/18) trimethoprim (Verified Allergy, Intermediate, RASH, 07/08/18) tramadol (Verified Adverse Reaction, Intermediate, ITCHING, URINARY RETENTION, 07/08/18) Family History Significant Family History: Noncontributory, Heart disease Younger brother of alcohol abuse. Father has unknown heart disease as patient is not close with her father. Patient states that her mother is healthy Social History * Smoker: current smoker (one half pack per day for 30 years), cigarettes Alcohol: Denies Drugs: heroin, IV drug use, other (inject small. He is well) Recent Travel/Sick Contacts: Denies: Recent travel, Recent sick contacts Psychosocial History: Anxiety SOCIAL HISTORY: Marital status: Single. Resides in: Home by herself Children: Two Employment: On disability for spinal stenosis Tobacco use:. [id number] smoking history and still actively smoking ETOH:. Denies Illicit drug use: IV drug abuse with Chantel and heroin with last use being 3 days prior. Also smokes marijuana when available A-FIB/CHADSVASC A-FIB History Current/History of A-Fib/PAF?: No Current PO Anticoag Therapy: No Review of Systems Constitutional: Denies: Chills, Fever, Malaise, Night Sweats, Weakness Eyes: Denies: Pain, Vision change, Redness ENT: Denies: Head Aches, Sinus Congestion, Sore Throat Skin: Reports: Rash, Lesions, Itching Pulmonary: Denies: Dyspnea, Cough, Pleuritic Chest Pain Cardiovascular: Denies: Chest Pain, Palpitations, Orthopnea, Edema Gastrointestinal: Denies: Nausea, Vomiting, Abdominal Pain, Diarrhea, Constipation Genitourinary: Reports: Dysuria, Frequency (increased) Hematologic: Reports: Bruising, Purpura; Denies: Bleeding Excessively, Petecchia Endocrine: Denies: Polydipsia, Polyphagia Musculoskeletal: Reports: Back Pain (chronic), Joint Pain (chronic) Neurological: Denies: Weakness, Numbness, Incoordination, Change in speech, Confusion Psych: Reports: Mood Normal; Denies: Depression, Thoughts of Self Harm, Thoughts of Harming Other Physical Examination General Exam: Positive: Alert, Cooperative, No Acute Distress Eye Exam: Positive: PERRLA, Conjunctiva & lids normal, EOMI; Negative: Sclera icteric, Ptosis ENT Exam: Positive: Atraumatic, Tongue Midline, Pharyngeal Edema, Other ENT; Negative: Mucous membr. moist/pink (mucous membranes appear to be somewhat dry) Neck Exam: Positive: Supple, +2 carotid pulse wo bruit; Negative: JVD, thyromegaly Chest Exam: Positive: Clear to auscultation, Normal air movement; Negative: Rales, Rhonchi, Wheezing Heart Exam: Positive: Rate Normal, Regular Rhythm, Normal S1, Normal S2; Negative: Murmurs, Rubs Abdomen Exam: Positive: Normal bowel sounds, Soft; Negative: Tenderness, Hepatospenomegaly, Mass Extremity Exam: Positive: Normal pulses; Negative: Clubbing, Cyanosis, Edema Skin Exam: Positive: Rash, Lesion, Other skin issue (multiple purpuric rashes noted in the lower extremities bilaterally. No open sores on the purpura or bleeding on exam. Multiple purpuric lesions also noted on her buttocks as well as her lower back, although much milder picture. Lower cherries. Patient also has visible track perez in the antecubital fossa and her right extremity. Purpuric lesions also appreciated in her right and left arms as well, although much milder than her lower extremities.) Neuro Exam: Positive: Normal Gait, Normal Speech, Strength at 5/5 X4 ext, Normal Tone, Cranial Nerves 3-12 NL Psych Exam: Positive: Mental status NL, Mood NL Vital Signs Vital Signs Date Time Temp Pulse Resp B/P (MAP) Pulse Ox O2 Delivery O2 Flow Rate FiO2 05/26/19 22:22 97.4 114 18 166/84 (111) 100 Room Air Laboratory Data Microbiology Microbiology 05/26/19 Blood Culture, Received Pending RAD Interpretation STUDY: CXR Rad Actions: Report Reviewed, Films Reviewed, Discussed with the pt RAD Interpretation: Normal Problems (1) Vasculitis Status: Acute Discussed With: Patient Problem Specific Plan: Consult Specialist (nephrology and rheumatology, if quoc labveronica) Problem Text: Patient has multiple vasculitic lesions noted on her lower extremities which have been progressing over the past several months. Etiology is currently unclear, although patient has multiple risk factors for vasculitis. May be postinfectious due to recent bacterial endocarditis which was treated. May also be due to her rheumatoid arthritis or even her past hepatitis C infection is likely clear. However, renal function is getting worse and there is concern that this may be related to her vasculitis and will therefore warrant additional workup. Patient did receive skin biopsy from director medical economics office earlier today with results still pending. - Follow up ANCA and a NINO as well as additional labs ordered by director medical economics office today - Follow blood cultures - Follow up skin biopsy results - Start IV Solu-Medrol 40 mg daily - can increase if no response noted. - Follow up nephrology consult in a.m. - Consider rheumatology followup if available (2) Renal failure Status: Acute Discussed With: Patient Problem Specific Plan: Consult Specialist Problem Text: Patient has worsening renal failure noted. Baseline creatinine is 0.8 and currently at greater than 2. Patient does appear to be mildly could be dry on exam. Also has a UTI as per UA from earlier today. Renal failure may be due to worsening vasculitis, which could be problematic and the greatest concern. We'll attempt to fluid challenge and see if renal function improves. - Follow up nephrology consult - Avoid nephrotoxic medications - Dose medications for reduced GFR - Continue with IV fluids for now - Strict ins and outs (3) UTI (urinary tract infection) Status: Acute Discussed With: Patient Problem Text: UA from earlier today shows 26 white blood cells as well as 3+ blood. Patient symptomatically and expresses increased urinary frequency although denies any dysuria. We'll treat as uncomplicated UTI at this time. - Start ceftriaxone 1 g daily for total of 3 days - Follow up urine cultures (4) Anxiety Status: Chronic Response to Treatment: Stable, Controlled Discussed With: Patient Problem Text: We'll continue with her current home meds (5) Amphetamine abuse Status: Chronic Discussed With: Patient Problem Text: Patient has long-standing history of IV drug abuse. She recently relapsed after being sober for multiple months 3 days prior. Patient was counseled that bedside regarding cessation of such behavior and she agrees. No obvious signs of withdrawal present. No further intervention required at this time. Plan / VTE VTE Prophylaxis Ordered?: Yes Plan IVF: Initiate (sodium chloride at 100 mL/h the next 24 hours) Diet: Continue Current Activity: Continue Current Medications: Start Antibiotics, Start Steroids Diagnostics: Repeat Labs in AM, Obtain Cultures Anticipated Discharge: Home ALVIN SAMPSON MD May 27, 2019 01:05
[2019-05-27 01:35] VITALS: BP 118/88
[2019-05-27] MEDS: traZODone 100 MG TAB PO SCH ×2 (01:41→20:22)
[2019-05-27] MEDS: MIRTAZAPINE 15 MG TAB PO SCH ×2 (01:41→20:22)
[2019-05-27] MEDS: hydrOXYzine 25 MG TAB PO SCH ×2 (01:41→20:22)
[2019-05-27] MEDS: ACETAMINOPHEN TAB 650MG DOSE (2X325MG) PO PRN ×3 (01:43→20:23)
[2019-05-27 06:00] VITALS: BP 117/87
[2019-05-27] MEDS ORDERED: HEPARIN SOD (PORCINE) 5000 UNITS/ML VIAL (J1644 PER 1000UNITS) SC SCH (06:00)
[2019-05-27 07:34] LABS: HEMATOCRIT 26.5 % (36.0-47.0); HEMOGLOBIN 8.4 g/dl (12.0-15.5); MEAN CORPUSCULAR HEMOGLOBIN 25.1 pg (27.0-33.0); MEAN CORPUSCULAR HGB CONC 31.7 g/dl (32.0-36.5); MEAN CORPUSCULAR VOLUME 79.1 fl (80.0-96.0); PLATELET COUNT, AUTOMATED 344 10^3/uL (150-450); RED BLOOD COUNT 3.35 10^6/uL (4.00-5.40); WHITE BLOOD COUNT 6.3 10^3/uL (4.0-10.0)
[2019-05-27 07:47] LABS: ALBUMIN 2.5 GM/DL (3.2-5.2); BILIRUBIN,TOTAL 0.2 MG/DL (0.2-1.0); CALCIUM LEVEL 8.3 MG/DL (8.5-10.1); CREATININE FOR GFR 1.64 MG/DL (0.55-1.30); GLOMERULAR FILTRATION RATE 35.6 (>58); POTASSIUM SERUM 3.7 MEQ/L (3.5-5.1); TOTAL PROTEIN 7.7 GM/DL (6.4-8.2)
[2019-05-27] MEDS: VENLAFAXINE **XR** 75MG CAPSULE PO SCH (08:47)
[2019-05-27] MEDS: SENOKOT S TAB PO PRN (08:47)
[2019-05-27] MEDS: cefTRIAXone SOD 1 GM in D5W MINI-BAG PLUS 50 ML IV SCH (08:49)
--- NOTE | 2019-05-27 08:56 | REP ---
Clinical: History of acute renal insufficiency. Technique: Real time mendez scale ultrasound examination using curved array transducer. Findings: The right kidney is normal in reniform shape, size, and parenchymal echo texture without hydronephrosis and measures 10.6 x 4.9 x 4.0 cm. 2.4 cm lateral mid pole simple cyst noted. No obvious nephrolithiasis or renal mass lesion appreciated. The left kidney is normal in reniform shape, size, and parenchymal echo texture measuring 10.4 x 4.8 x 5.6 cm with findings to suggest mild hydronephrosis. No obvious nephrolithiasis, cystic or renal mass lesion appreciated. The bladder is under distended and incompletely evaluated. Impression: 1. 2.3 cm simple right renal cyst. 2. Mild left hydronephrosis cannot be excluded. Electronically Signed by Dung Taveras MD 05/27/2019 08:48 A
[2019-05-27] MEDS ORDERED: FERROUS SULFATE 325MG TAB PO SCH (09:00)
[2019-05-27] MEDS ORDERED: methylPREDNISolone INJ 40 MG/1 ML VIAL (J2920) IV SCH (09:00)
[2019-05-27] MEDS ORDERED: OMEPRAZOLE 20 MG CAP PO SCH (09:00)
--- NOTE | 2019-05-27 10:14 | IPNPDOC ---
Text Note Date of Service The patient was seen on 05/27/19. NOTE Subjective: Patient is a 48-year-old female with a PMHx of IVDA, Recent Endocarditis (s/p 4 weeks of IV antibiotics, follows with Dr. Jose), Anxiety, Hepatitis C, and Chronic lower back pain 2/2 Spinal stenosis who presented to the ER at the direction of infectious disease and dermatology for worsening renal function. Patient was following up with dermatology as an outpatient for suspected vasculitis and had a biopsy completed of her left lower extremity. Patient has been seen by dermatology after she had intermittent skin lesions of her bilateral lower extremities. Biopsy results are pending. Patient was seen and examined at bedside. She denies any chest pain or cough. Reports that she does express some shortness of breath. Denies any nausea, vomiting. Reports some abdominal discomfort. Denies any constipation or diarrhea. Patient has reported that she may have experienced some blood in her stool over the last several weeks. Denies any urinary discomfort, but does report increased frequency of urination. Objective: Vitals (See below) General: Lying in bed, comfortable, AAOx3 HEENT: NC, AT, scabs around face CVS: +S1S2 Lungs: Fair air entry b/l, -w/r/r Abdomen: Soft, ND, mild epigastric tenderness Extremities: - Edema, - Calf tenderness Assessment and plan: PANFILO - Baseline Cr of 0.8 - Has continue to deteriorate upon discharge - Admitted with a Cr of 2.10; improved to 1.64 today - Renal US 05/26: 1. 2.3 cm simple right renal cyst. 2. Mild left hydronephrosis cannot be excluded. - c/w IV fluid hydration - Will avoid nephrotoxic medications - Nephrology on consultation UTI - Reported increased urinary frequency / no dysuria - Hemodynamically stable / Afebrile - s/p Leukocytosis - UA with evidence of possible infection; Will order urine culture - c/w Ceftriaxone (Day 1 of 3) Microcytic anemia - Patient has reported some blood in her stool over the last several weeks - Hg baseline of 8-10 - Currently Hg at 8.4 - initial drop likely 2/2 dilutional etiology - Iron panel from 05/01 consistent with iron deficiency anemia - Will check stool for occult blood - Will start Ferrous sulfate - Will repeat H&H at 1200; transfuse if H&H trending down LE lesions - 2/2 suspected vasculitis - Patient has reported worsening lower extremity lesions have been occurring intermittently since discharge - s/p Skin biopsy with Dermatology, Dr. Tan - ANCA / NINO serology pending - c/w Solumedrol 40 IV daily IVDA - Patient indicated that she has used injected Chantel 3 days prior to admission Recent Endocarditis / MSSA Bacteremia - s/p 4 weeks of IV antibiotics - Follows with Dr. Jose Anxiety - c/w Venlafaxine / Trazodone / Hydroxyzine Chronic Hepatitis C - Most recent Hepatitis C RNA level was noted to be negative Chronic lower back pain 2/2 Spinal stenosis - c/w Tylenol PRN GI prophylaxis - Will start Protonix + Carafate DVT prophylaxis - Will DC Heparin - c/w TEDs/Sequentials Disposition: - Will repeat H&H this afternoon - Transfuse as needed VS,Fishbone, I+O VS, Fishbone, I+O Laboratory Tests 05/27/19 06:50 Vital Signs Date Time Temp Pulse Resp B/P (MAP) Pulse Ox O2 Delivery O2 Flow Rate FiO2 05/27/19 06:00 98.7 71 18 117/87 (97) 98 Room Air I&O- Last 24 Hours up to 6 AM 05/27/19 06:00 Intake Total 300 ml Output Total 0 ml Balance 300 ml PURA GARNER MD May 27, 2019 10:14
[2019-05-27 13:06] LABS: HEMATOCRIT 24.8 % (36.0-47.0); HEMOGLOBIN 7.9 g/dl (12.0-15.5)
[2019-05-27 13:15] LABS: COMPLEMENT C3 129 MG/DL (90-180); COMPLEMENT C4 29 MG/DL (10-40); TOTAL PROTEIN 7.1 GM/DL (6.4-8.2)
[2019-05-27 13:20] LABS: INR 1.07; PROTHROMBIN TIME 13.6 SECONDS (11.8-14.0)
[2019-05-27] MEDS: SUCRALFATE 1 GM TAB PO SCH ×3 (13:50→20:22)
[2019-05-27] MEDS: PANTOPRAZOLE 40MG INJ (PROTONIX) (C9113) IV SCH ×2 (14:47→20:22)
[2019-05-27 14:49] VITALS: BP 120/84
[2019-05-27 15:24] LABS: APPEARANCE, URINE HAZY (CLEAR); BACTERIA, URINE AUTO NEGATIVE (NEGATIVE); BILIRUBIN, URINE AUTO NEGATIVE (NEGATIVE); BLOOD, URINE BLOOD 3+ (NEGATIVE); COLOR, URINE YELLOW (YELLOW); GLUCOSE, URINE (UA) AUTO 1+ mg/dL (NEGATIVE); KETONE, URINE AUTO NEGATIVE (NEGATIVE); LEUKOCYTE ESTERASE, URINE AUTO NEGATIVE (NEGATIVE); NITRITE, URINE AUTO NEGATIVE (NEGATIVE); PROTEIN, URINE AUTO NEGATIVE (NEGATIVE); RBC, URINE AUTO 27 /HPF (0-3); SPECIFIC GRAVITY URINE AUTO 1.011 (1.002-1.035); SQUAMOUS EPITHELIAL CELL UR AU 4 /HPF (0-6); UROBILINOGEN, URINE AUTO 0.2 mg/dL (0.0-2.0); WBC, URINE AUTO 6 /HPF (0-3)
[2019-05-27 15:46] LABS: CREATININE,RANDOM URINE 62.9 MG/DL; TOTAL PROTEIN,RANDOM URINE 48.9 MG/DL (0.0-12.0)
[2019-05-27] MEDS: IRON SUCROSE 200 MG in NS 100 ML IV SCH (17:45)
--- NOTE | 2019-05-27 18:01 | CR ---
DATE OF CONSULTATION: 05/27/2019 REQUESTING PHYSICIAN: Dr. Thang Dejesus. CONSULTING PHYSICIAN: Dr. Bautista. REASON FOR CONSULTATION: Management of acute renal failure and a skin rash. CHIEF COMPLAINT: The patient was sent from infectious disease office because of abnormal labs and a rash. HISTORY OF PRESENT ILLNESS: Sujey Doty is a 48-year-old female with a past medical history of polysubstance abuse, including intravenous (IV) Chantel, IV heroin abuse. Known to nephrology service from recent hospitalization. At that time, she was seen by nephrology for electrolyte abnormalities including hyponatremia and hypokalemia. Later on, the patient was found to have sepsis secondary to infective endocarditis. The patient finished four weeks course of IV antibiotics and she was following up with infectious disease as outpatient. The patient has a baseline near-normal renal function with a baseline creatinine of 0.8 on 04/06/2019. She was found to have worsening renal function with the latest creatinine of 2.1 done yesterday and she also complained of rash in the bilateral lower extremities. It was perforate rash, which was more pronounced in the lower extremities, starting from her ankles all the way up to her gluteal region. She was seen by dermatology and she had the skin biopsy of the rash done in dermatology office. Because of her worsening renal function and skin rash, along with the proteinuria found in outpatient labs, patient was sent to the emergency room for further evaluation. She was admitted under the hospitalist service. She was started on IV fluid hydration and the patient was also started on IV Solu-Medrol for possible vasculitis-induced glomerulonephritis and nephrology service was called for further help in the management of this patient. I saw and evaluated the patient today morning at the bedside. The patient reported that she was having decreased appetite, nausea and vomiting and she was trying to inject drugs, including morphine and Chantel other substances, and she also complained of headache. The patient reports that she is feeling better today as compared with yesterday. The patient reports that rash is present since the last hospitalization in March 2019, when she was admitted with infective endocarditis, but the rash waxes and wanes. She denies any itching. She denies any fevers, chills and rigors. PAST MEDICAL HISTORY: 1. Infective endocarditis. 2. History of polysubstance abuse. 3. Spinal stenosis. 4. Anxiety disorder. PAST SURGICAL HISTORY: 1. Status post (C) section. 2. Status post cholecystectomy in the past. ALLERGIES: She is allergic to PENICILLIN, SULFA DRUGS, TRAMADOL, TRIMETHOPRIM, VANCOMYCIN. FAMILY HISTORY: No significant family history of end-stage renal disease requiring hemodialysis. Her younger brother of alcohol abuse. SOCIAL HISTORY: The patient lives alone. She reports that she is currently not sexually active. She is an active smoker. She smokes about half a [id number] she denies any illicit drug abuse. She admits to IV drug abuse including Chantel and heroin and she is on disability because of spinal stenosis. She also smokes marijuana. REVIEW OF SYSTEMS: CONSTITUTIONAL: Patient denies any fevers and chills. EYES: She denies any blurry vision, double vision. EARS, NOSE AND THROAT: She denies any dysphagia or odynophagia. CARDIOVASCULAR: She denies any chest pain or palpitations or lower extremity edema. RESPIRATORY: She denies any shortness of breath, cough or phlegm. GASTROINTESTINAL (GI): She reports nausea, decreased appetite and some vomiting at home. GENITOURINARY: She reports dysuria and increase frequency on admission. MUSCULOSKELETAL: She reports generalized muscle aches and pains. HEMATOLOGY/ONCOLOGY: She denies any easy to bleeding or bruising. She does report petechial rash in the lower extremity. ENDOCRINE: She denies any polyuria or polyphagia or polydipsia. CENTRAL NERVOUS SYSTEM (CONTRACT MAIL CARRIER): She denies any strokes or seizures. PSYCHIATRIC: She denies any depression or anxiety at this time, but she does report drug withdrawal. All other review of systems is negative. PHYSICAL EXAMINATION: GENERAL: The patient is awake, alert, oriented times three, sitting up in the bed in no apparent distress. Vital signs VITAL SIGNS: Temperature is 98.7 degrees Fahrenheit, blood pressure 117/87, pulse is 71, respiratory rate of 18, saturating 98% on room air. HEAD AND NECK EXAM: Extraocular muscles intact. Pupils equally round and reactive to light. Mucous membranes are moist. Neck is supple. There is no jugular venous distention (JVD). CARDIOVASCULAR: S1, S2. Regular rate. No edema of the bilateral lower extremities. RESPIRATORY: Chest is clear to auscultation bilaterally. Bilateral equal air entry. No rales or rhonchi. ABDOMEN: Soft, obese, positive bowel sounds. Old surgical scar from previous cholecystectomy and . No organomegaly was noted. GENITOURINARY: Bladder is not palpable. MUSCULOSKELETAL: No clubbing or cyanosis. The patient has multiple needle perez and scars in the bilateral upper extremities. CENTRAL NERVOUS SYSTEM (CONTRACT MAIL CARRIER): No focal deficit. Power is 5/5 in all extremities. PSYCHIATRIC: The patient has normal mood and affect. SKIN: As mentioned above. The patient has multiple needle stick perez in bilateral upper extremities and she has multiple skin tattoos. Patient has empiric rash starting from her ankles all the way up to her gluteal region. LABORATORY REVIEW: Complete blood count (CBC) showed a WBC of 6.3, hemoglobin 8.4, platelets 334. INR is 1.07. Urinalysis done initially had 2+ protein. However, urinalysis (UA) done today shows no protein, 1+ glucose, 3+ blood, 6 WBCs and 27 RBCs. Urine random protein is 48.9. Random creatinine is 62.9. Basic metabolic panel (BMP) done in the morning showed sodium 135, potassium 3.7, chloride 110, bicarbonate 19, BUN 23, creatinine is 1.6, calcium 8.3. Total bilirubin 0.2, AST 31, ALT is 20 alkaline phosphatase is 128, albumin 2.5. IMMUNOLOGY: C3 and C4 levels are normal. The rest of the immunology is pending and serology is also pending. MICROBIOLOGY: Urine culture and blood cultures are pending. IMAGING STUDIES: A renal ultrasound was done which showed 2.3 cm simple right renal cyst and mild left hydronephrosis cannot be excluded. HOME MEDICATIONS: The patient was taking: - vitamin D 50,000 units once a week - estradiol 0.5 mcg by mouth daily - hydroxyzine as needed - ibuprofen as needed for pain - meloxicam 15 mg by mouth daily - mirtazapine 30 mg at bedtime - omeprazole 20 mg by mouth daily - Senna tablet as needed constipation - trazodone 100 mg at bedtime - venlafaxine 75 mg by mouth daily CURRENT INPATIENT MEDICATIONS: The patient's medications were all reviewed by me. She was started on ceftriaxone 1 gram IV daily. She is on normal saline at 100 mL an hour for a total of 1 day. She is on Senokot 1 tablet by mouth twice a day as needed for constipation. She was on iron tablet 325 mg by mouth twice a day and I have changed it to once a day. She was on heparin subcutaneous, which has been stopped now because of dropping hemoglobin. She is on hydroxyzine as needed. She was given one dose of Solu-Medrol 40 mg IV last night and she was started on 40 mg IV daily of Solu-Medrol. She is on mirtazapine 30 mg at bedtime, omeprazole 20 mg by mouth daily, which was stopped and now she has been started on Protonix 40 mg IV twice a day, Carafate 1 gram by mouth before meals and at bedtime, trazodone 100 mg at bedtime and venlafaxine 75 mg by mouth daily. ASSESSMENT: A 48-year-old female with history of anxiety disorder, polysubstance abuse, admitted this time with acute renal failure and rash in the lower extremity, concern for vasculitis. PLAN: 1. Rash in the lower extremity. 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 Given her history of IV drug abuse, it is very likely that she either has vasculitis secondary to IV drug abuse and she recently had infective endocarditis, which can trigger IgA vasculitis as well. Generally, the treatment of Henoch-Schonlein Purpura (HSP) is symptomatic treatment. It is a self-resolving disease. She needs to be hydrated she is already being hydrated well. Her symptoms are resolving. Given her recent urinalysis, which does not show any significant proteinuria, she has mild hematuria, I would not aggressively treat the patient with IV steroids until or unless I have compelling evidence from the skin biopsy that was done recently as outpatient. I am going to hold the IV steroids at this time. 2. Acute renal failure. The patient has multiple etiologies to have acute renal failure including polysubstance IV drug abuse, use of nonsteroidal anti-inflammatory drugs (NSAIDs) as outpatient, dehydration, nausea and vomiting as outpatient. Given the repeat urinalysis with some hematuria and no significant proteinuria, there is no indication for IV steroid use at this time. Generally, IgA vasculitis-induced glomerulonephritis is treated with steroids if the patient has more than 1 gram proteinuria and worsening renal function. At this point I will continue the symptomatic treatment of this patient. Creatinine is already improving with IV fluid hydration. It improved from 2.1 to 1.6 since overnight. I will repeat another renal profile at 6:00 p.m. today. 3. Hyponatremia. The patient had hyponatremia on a previous hospitalization as well, which has self-resolved with IV fluid hydration. Sodium level is 134, which is almost close to normal. 4. Normal anion gap metabolic acidosis. Most likely secondary to acute renal failure. Continue the IV fluid hydration. Bicarbonate level is expected to improve with improvement in the renal function. No need of IV bicarbonate administration at this time. 5. Iron-deficiency anemia. Primary team has already stopped the heparin. She is getting Carafate and IV Protonix. Given iron deficiency, I have started the patient on IV Venofer infusions. If needed, if hemoglobin keeps on dropping, then patient will be given packed red blood cells (PRBC) transfusion. 6. Polysubstance abuse. The patient admits to injecting IV Chantel and heroin. She already had episode of infective endocarditis this March. Repeat cultures have been ordered and they are pending. Given her history of IV drug abuse and high risk of infection, I would avoid giving high dose steroids or immunosuppression to this patient. 7. Anxiety disorder. Okay to continue home dose of antipsychotics and antidepressants Thank you for involving me in the care of this patient. I shall be happy to follow the patient along with you tomorrow morning. Plan of care was discussed with the hospitalist, Dr. Anali Delgado, today.
[2019-05-27 18:40] LABS: ALBUMIN 2.6 GM/DL (3.2-5.2); CALCIUM LEVEL 7.7 MG/DL (8.5-10.1); CREATININE FOR GFR 1.54 MG/DL (0.55-1.30); GLOMERULAR FILTRATION RATE 38.3 (>58); PHOSPHORUS LEVEL 2.8 MG/DL (2.5-4.9)
[2019-05-27 22:00] VITALS: BP 112/73
[2019-05-28] VITALS (7 sets, daily range): BP systolic 124–148; BP diastolic 77–108
[2019-05-28 05:49] LABS: HEMATOCRIT 22.7 % (36.0-47.0); HEMOGLOBIN 7.2 g/dl (12.0-15.5); MEAN CORPUSCULAR HEMOGLOBIN 25.4 pg (27.0-33.0); MEAN CORPUSCULAR HGB CONC 31.7 g/dl (32.0-36.5); MEAN CORPUSCULAR VOLUME 79.9 fl (80.0-96.0); PLATELET COUNT, AUTOMATED 325 10^3/uL (150-450); RED BLOOD COUNT 2.84 10^6/uL (4.00-5.40); WHITE BLOOD COUNT 8.2 10^3/uL (4.0-10.0)
[2019-05-28 06:17] LABS: ALBUMIN 2.3 GM/DL (3.2-5.2); BILIRUBIN,TOTAL 0.2 MG/DL (0.2-1.0); CALCIUM LEVEL 8.2 MG/DL (8.5-10.1); CREATININE FOR GFR 1.31 MG/DL (0.55-1.30); GLOMERULAR FILTRATION RATE 46.1 (>58); POTASSIUM SERUM 3.4 MEQ/L (3.5-5.1); TOTAL PROTEIN 6.8 GM/DL (6.4-8.2)
[2019-05-28] MEDS ORDERED: POTASSIUM CHLORIDE 10 MEQ SR TABLET PO ONE (07:15)
[2019-05-28] MEDS: IRON SUCROSE 200 MG in NS 100 ML IV SCH (09:39)
[2019-05-28] MEDS: FERROUS SULFATE 325MG TAB PO SCH (09:40)
[2019-05-28] MEDS: PANTOPRAZOLE 40MG INJ (PROTONIX) (C9113) IV SCH ×2 (09:40→21:51)
[2019-05-28] MEDS: VENLAFAXINE **XR** 75MG CAPSULE PO SCH (09:40)
[2019-05-28] MEDS: SENOKOT S TAB PO PRN (09:40)
[2019-05-28] MEDS: SUCRALFATE 1 GM TAB PO SCH ×4 (09:40→21:51)
[2019-05-28] MEDS: ACETAMINOPHEN TAB 650MG DOSE (2X325MG) PO PRN ×2 (09:40→19:37)
--- NOTE | 2019-05-28 09:53 | ROOPDOC ---
[facility] Report Of Operation Report of Operation DATE OF PROCEDURE: 05/28/2019 PREPROCEDURE DIAGNOSES: Poor Peripheral Access POSTPROCEDURE DIAGNOSES: Poor Peripheral Access PROCEDURE: Right IJ central line placement Performed by: Dr. Mcintosh Attending: Dr. Pena ANESTHESIA: local ESTIMATED BLOOD LOSS: Approximately 0 mL. COMPLICATIONS: none PROCEDURE NOTE: Consent was obtained prior to the procedure. Indications, risks and benefits were explained to the patient. Procedure was performed at bedside on 5 macario. DESCRIPTION OF PROCEDURE: The patient was placed in the supine position, was placed in Trendelenburg. The right chest region and neck was prepped with chlorhexidine scrub. The patient was draped in the typical sterile fashion using a full drape. Ultrasonography was employed at bedside. A sterile probe cover was placed over the ultrasound. The medial and lateral head of the bishop ocleidomastoid were identified, as was the carotid pulse. The internal jugular vein was identified using ultrasound. Anesthesia was achieved over the internal jugular vein on the right using a 1% lidocaine solution. Once anesthetized, an introducer needle was inserted into the internal jugular vein under direct ultrasound visualization. Venous blood was withdrawn, syringe was removed and a guidewire was advanced on to the introducer needle. The guidewire was visualized in the internal jugular vein by ultrasound. A small incision was made in the skin surface with a scalpel, and the introducer needle was exchanged for a dilator over the guidewire. After appropriate dilation was obtained, the dilator was exchanged over the wire for a central venous catheter. The wire was removed, and the catheter was sutured in place. A sterile bandage was placed over the catheter site. The patient tolerated the procedure well without any hemodynamic compromise. At the time of procedure completion, all ports were aspirated and f lushed properly. Postprocedure x-ray was performed, which demonstrated adequate positioning of the central venous catheter in the right internal jugular vein. CIELO MCINTOSH DO May 28, 2019 09:53
--- NOTE | 2019-05-28 09:58 | IPNPDOC ---
Text Note Date of Service The patient was seen on 05/28/19. NOTE Subjective: Patient is a 48-year-old female with a PMHx of IVDA, Recent Endocarditis (s/p 4 weeks of IV antibiotics, follows with Dr. Jose), Anxiety, Hepatitis C, and Chronic lower back pain 2/2 Spinal stenosis who presented to the ER at the direction of infectious disease and dermatology for worsening renal function. Patient was following up with dermatology as an outpatient for suspected vasculitis and had a biopsy completed of her left lower extremity. Patient has been seen by dermatology after she had intermittent skin lesions of her bilateral lower extremities. Biopsy results are pending. Patient was seen and examined at bedside. Patient denies any shortness of breath, cough or palpitations. Denies nausea, vomiting, abdominal pain, mae rrhea, or urinary discomfort. Nursing staff is indicated that patient has lost IV access overnight. Objective: Vitals (See below) General: Lying in bed, comfortable, AAOx3 HEENT: NC, AT, scabs around face CVS: +S1S2 Lungs: Air entry appears to be fair bilaterally, without auscultated rhonchi, wheezing or crackles Abdomen: Soft, without any distention or tenderness Extremities: No tremors are free of any edema, - Calf tenderness Skin: Bilateral lower extremities with mildly erythematous lesions, non-tender Assessment and plan: PANFILO - Baseline Cr of 0.8; on admission was 2.10 - Creatinine has continued to trend down from admission - Renal US 05/26: 1. 2.3 cm simple right renal cyst. 2. Mild left hydronephrosis cannot be excluded. - c/w IV fluid hydration - Will avoid nephrotoxic medications - Nephrology on consultation; appreciate their input Poor IV access - Given prior history of IV drug abuse, patient has very poor peripheral IV access - Discussed with Dr. Pena, Gen. surgery planned for central line placement UTI - Reported increased urinary frequency / no dysuria - Hemodynamically stable / Afebrile - s/p Leukocytosis - UA with evidence of possible infection; Will order urine culture - c/w Ceftriaxone (Day 2 of 3) Hypokalemia - Will supplement Microcytic anemia - Patient has reported some blood in her stool over the last several weeks - Hg baseline of 8-10; Hg has been trending down, likely 2/2 dilutional etiology - Iron panel from 2/24 consistent with iron deficiency anemia - Stool for occult blood - pending - Will repeat H&H at 12PM; consented for blood - c/w Iron supplementation as per Nephrology LE lesions - 2/2 suspected vasculitis - Patient has reported worsening lower extremity lesions have been occurring intermittently since discharge - s/p Skin biopsy with Dermatology, Dr. Tan - Cryoglobulins - negative - ANCA / NINO serology pending - c/w Solumedrol 40 IV daily IVDA - Patient indicated that she has used injected Chantel 3 days prior to admission Recent Endocarditis / MSSA Bacteremia - s/p 4 weeks of IV antibiotics - Follows with Dr. Jose Anxiety - c/w Venlafaxine / Trazodone / Hydroxyzine Chronic Hepatitis C - Most recent Hepatitis C RNA level was noted to be negative Chronic lower back pain 2/2 Spinal stenosis - c/w Tylenol PRN GI prophylaxis - c/w Protonix + Carafate DVT prophylaxis - c/w TEDs/Sequentials; s/p Heparin Disposition: - c/w IV fluid hydration - Transfuse as needed VS,Fishbone, I+O VS, Fishbone, I+O Laboratory Tests 05/27/19 12:42 05/28/19 05:32 Vital Signs Date Time Temp Pulse Resp B/P (MAP) Pulse Ox O2 Delivery O2 Flow Rate FiO2 05/28/19 06:03 97.6 92 20 124/77 (93) 95 Room Air I&O- Last 24 Hours up to 6 AM 05/28/19 06:00 Intake Total 2840 ml Output Total 2600 ml Balance 240 ml PURA GARNER MD May 28, 2019 09:58
--- NOTE | 2019-05-28 10:07 | REP ---
Clinical: Central line placement . Comparison: 05/26/2019 . Findings: Right IJ line with tip in the SVC/right atrium. The mediastinum and cardiac silhouette are stable and within normal limits for portable technique. The lung brownlee are clear without acute consolidation, effusion, or pneumothorax. Skeletal structures are intact. Impression: Right IJ line with tip in the SVC/right atrium. No pneumothorax. No focal consolidation or effusion. Electronically Signed by Dung Taveras MD 05/28/2019 09:59 A
[2019-05-28] MEDS ORDERED: SENOKOT S TAB PO PRN (11:30)
[2019-05-28] MEDS ORDERED: MIRALAX *UNIT DOSE* 17GM PACKET PO PRN (11:30)
[2019-05-28] MEDS: cefTRIAXone SOD 1 GM in D5W MINI-BAG PLUS 50 ML IV SCH (11:43)
[2019-05-28 11:44] LABS: HEMATOCRIT 21.6 % (36.0-47.0)
--- NOTE | 2019-05-28 14:09 | IPN ---
DATE: 05/28/2019 SUBJECTIVE: The patient was seen and examined at the bedside today morning. She is afebrile, hemodynamically stable. She lost her IV access yesterday. A triple lumen catheter in the right internal jugular (IJ) vein was placed yesterday. The patient was getting IV Venofer when I saw her in the morning. Her renal function is stable and improving, creatinine has improved to 1.31 today. The patient denies any fevers and chills. Urinalysis done yesterday showed no protein. IV Solu-Medrol was stopped. OBJECTIVE: Vital signs: Temperature is 97.6 degrees Fahrenheit., blood pressure 124/77, pulse is 92, respiratory rate of 20, saturating 95% on room air. Intake and output: Urine output recorded is 1.8 liters yesterday, 800 mL so far today. Weight in the bed scale is 55.3 kg. PHYSICAL EXAMINATION: General: The patient is a awake, alert, oriented times three, laying in bed, in no apparent distress. Head and Neck Exam: Extraocular muscles intact. Pupils equally round and reactive to light. She has a right IJ triple lumen catheter. Cardiovascular: S1, S2, regular rate. No edema of the bilateral lower extremities. Respiratory: Chest is clear to auscultation bilaterally. Bilateral equal air entry. No rales or rhonchi. Abdomen: Soft, obese, positive bowel sounds with the old surgical scars that are visible. No organomegaly was noted. Musculoskeletal: No clubbing or cyanosis. Multiple needle perez in the bilateral upper extremities. Central nervous system (PIE ICER MACHINE): No focal deficit, power is 5/5 in all extremities. Skin: Rash in the bilateral lower extremities is getting better now. LAB REVIEW: CBC showed a WBC of 8.2, hemoglobin is 7.2, platelets are 325. BMP showed sodium 142, potassium 3.4, chloride 117, bicarbonate 23, BUN 17, creatinine is 1.3, it was 1.5 yesterday, calcium is 8.2. Immunology: Serum cryoglobulins are negative, C3 and C4 levels are normal. Microbiology: Blood cultures are negative so far. Urine cultures are negative. IMAGING: A chest x-ray was done to confirm the placement of the right IJ triple lumen catheter and it was normal. CURRENT INPATIENT MEDICATIONS: The patient's medications were all reviewed by myself. She continues to be on IV ceftriaxone for a total of 3 days, IV fluids were stopped. She was started on IV Venofer yesterday. IV Solu-Medrol has been stopped. The patient was given a dose of potassium chloride 40 mEq by mouth times one dose today morning. ASSESSMENT/PLAN: 1. Acute kidney injury. It is less likely that acute renal failure was secondary to IgA vasculitis. The patient just got two doses of Solu-Medrol so far and her renal function is rapidly improving. Most likely cause was use of IV drugs and nonsteroidal anti-inflammatory drugs (NSAIDs), and pain medication, and dehydration with nausea and vomiting. The patient was given IV fluid hydration. Renal function is already improving. No further need of IV steroids from nephrology standpoint. 2. Bilateral lower extremity rash. The patient most likely has Henoch-Schonlein purpura. She got two doses of Solu-Medrol. Pathology result of the skin biopsy is still pending. However, from nephrology standpoint, the patient does not need anymore steroids. If dermatology recommends giving the patient steroids, then she can receive prednisone. The usual treatment of Henoch-Schonlein purpura is symptomatic, and I believe she is developing this rash because of the recurrent use of IV drugs, which is a trigger for development of IgA vasculitis. 3. Iron-deficiency anemia. The patient's hemoglobin is getting worse. I started her on IV Venofer. However, the patient is going to get one unit of blood transfusion as well because hemoglobin has dropped to 7. 4. Hypokalemia. The patient was given one dose of potassium chloride 40 mEq today morning already.
[2019-05-28 18:59] LABS: CREATININE 24 HOUR, URINE 752.5 MG/24HR (600-1800)
[2019-05-28] MEDS: MIRTAZAPINE 15 MG TAB PO SCH (21:51)
[2019-05-28] MEDS: hydrOXYzine 25 MG TAB PO SCH (21:51)
[2019-05-28] MEDS: traZODone 100 MG TAB PO SCH (21:51)
[2019-05-28] MEDS: SODIUM CHLORIDE 0.9% INJ 10 ML SYR IV SCH (21:52)
[2019-05-29] MEDS: ACETAMINOPHEN TAB 650MG DOSE (2X325MG) PO PRN ×5 (01:47→21:44)
[2019-05-29 05:38] LABS: HEMATOCRIT 27.7 % (36.0-47.0); HEMOGLOBIN 8.9 g/dl (12.0-15.5); MEAN CORPUSCULAR HGB CONC 32.1 g/dl (32.0-36.5); PLATELET COUNT, AUTOMATED 348 10^3/uL (150-450); RED BLOOD COUNT 3.42 10^6/uL (4.00-5.40); WHITE BLOOD COUNT 9.3 10^3/uL (4.0-10.0)
[2019-05-29] MEDS: SODIUM CHLORIDE 0.9% INJ 10 ML SYR IV SCH ×3 (05:41→21:42)
[2019-05-29 05:59] LABS: ALBUMIN 2.2 GM/DL (3.2-5.2); BILIRUBIN,TOTAL 0.2 MG/DL (0.2-1.0); CALCIUM LEVEL 8.1 MG/DL (8.5-10.1); CREATININE FOR GFR 1.15 MG/DL (0.55-1.30); GLOMERULAR FILTRATION RATE 53.6 (>58); POTASSIUM SERUM 3.6 MEQ/L (3.5-5.1); TOTAL PROTEIN 6.6 GM/DL (6.4-8.2)
[2019-05-29 06:00] VITALS: BP 143/90
[2019-05-29] MEDS ORDERED: NS 1,000 ML IV SCH (07:30)
[2019-05-29] MEDS: VENLAFAXINE **XR** 75MG CAPSULE PO SCH (09:08)
[2019-05-29] MEDS: SUCRALFATE 1 GM TAB PO SCH (09:08)
[2019-05-29] MEDS: PANTOPRAZOLE 40MG TAB (PROTONIX) PO SCH (09:08)
[2019-05-29] MEDS: FERROUS SULFATE 325MG TAB PO SCH (09:08)
[2019-05-29] MEDS: cefTRIAXone SOD 1 GM in D5W MINI-BAG PLUS 50 ML IV SCH (09:09)
--- NOTE | 2019-05-29 09:29 | IPNPDOC ---
Text Note Date of Service The patient was seen on 05/29/19. NOTE Subjective: Patient is a 48-year-old female with a PMHx of IVDA, Recent Endocarditis (s/p 4 weeks of IV antibiotics, follows with Dr. Jose), Anxiety, Hepatitis C, and Chronic lower back pain 2/2 Spinal stenosis who presented to the ER at the direction of infectious disease and dermatology for worsening renal function. Patient was following up with dermatology as an outpatient for suspected vasculitis and had a biopsy completed of her left lower extremity. Patient has been seen by dermatology after she had intermittent skin lesions of her bilateral lower extremities. Biopsy results are pending. Patient was seen and examined at bedside. The patient reports an uneventful evening. Reports her breathing is unlabored. Denies any cough, chest pain or palpitations. Denies nausea, vomiting, abdominal pain, diarrhea. Denies any urinary discomfort. Reports that her lower extremity lesions have improved. Objective: Vitals (See below) General: Lying in bed, comfortable, AAOx3 HEENT: NC, AT, scabs around face CVS: +S1S2 Lungs: There appears to be fair air entry bilaterally. No auscultated wheezing, crackles or rhonchi Abdomen: Again abdomen is soft. No evidence of distention or tenderness Extremities: Lower extremities do not reveal any pitting edema, - Calf tenderness Skin: Erythematous lesions at bilateral lower extremities appear to be regressing, non-tender Assessment and plan: s/p PANFILO - Baseline Cr of 0.8; on admission was 2.10 - Creatinine has continued to trend down from admission - Renal US 05/26: 1. 2.3 cm simple right renal cyst. 2. Mild left hydronephrosis cannot be excluded. - Will resume IV fluid hydration; anticipate normalization by tomorrow - Will avoid nephrotoxic medications - Nephrology on consultation; appreciate their input Poor IV access - Given prior history of IV drug abuse, patient has very poor peripheral IV access - s/p Central line access (R IJ TLC) - Discussed with Dr. Pnea, appreciate their input UTI - Reported increased urinary frequency / no dysuria - Hemodynamically stable / Afebrile - s/p Leukocytosis - UA with evidence of possible infection; Will order urine culture - c/w Ceftriaxone (Day 3 of 3) Hypokalemia - Will supplement Microcytic anemia - Patient has reported some blood in her stool over the last several weeks - Hg baseline of 8-10; Hg has been trending down, likely 2/2 dilutional etiology - Iron panel from 05/01 consistent with iron deficiency anemia - Stool for occult blood negative - s/p 1 unit PRBC - c/w Iron supplementation LE lesions - 2/2 suspected vasculitis - Patient has reported worsening lower extremity lesions have been occurring intermittently since discharge - s/p Skin biopsy with Dermatology, Dr. Tan - Cryoglobulins - negative - ANCA / NINO serology pending - c/w Prednisone; s/p Solumedrol 40 IV daily IVDA - Patient indicated that she has used injected Chantel 3 days prior to admission Recent Endocarditis / MSSA Bacteremia - s/p 4 weeks of IV antibiotics - Follows with Dr. Rebeca Bass - c/w Venlafaxine / Trazodone / Hydroxyzine Chronic Hepatitis C - Most recent Hepatitis C RNA level was noted to be negative Chronic lower back pain 2/2 Spinal stenosis - c/w Tylenol PRN GI prophylaxis - c/w Protonix (will change to PO) + Carafate DVT prophylaxis - c/w TEDs/Sequentials; s/p Heparin Disposition: - Resume IV fluid hydration - Anticipate DC tomorrow VS,Fishbone, I+O VS, Fishbone, I+O Laboratory Tests 05/28/19 11:34 05/29/19 05:19 Vital Signs Date Time Temp Pulse Resp B/P (MAP) Pulse Ox O2 Delivery O2 Flow Rate FiO2 05/29/19 06:00 98.8 86 18 143/90 (107) 97 Room Air I&O- Last 24 Hours up to 6 AM 05/29/19 06:00 Intake Total 4670 ml Output Total 950 ml Balance 3720 ml PURA GARNER MD May 29, 2019 09:29
[2019-05-29] MEDS: IRON SUCROSE 200 MG in NS 100 ML IV SCH (11:01)
--- NOTE | 2019-05-29 12:01 | IPN ---
DATE: 05/29/2019 SUBJECTIVE: The patient was seen and examined the bedside this morning. She is afebrile, hemodynamically stable. Renal function continues to improve. She got 1 unit of packed red blood cell transfusion yesterday, hemoglobin is also better today as compared with yesterday. The patient denies any active complaints. She reports that she is feeling better today. OBJECTIVE: Vital signs: Temperature is 98.8 degrees Fahrenheit, blood pressure 143/90, pulse is 56, respiratory of 18, saturating 97% on room air. Intake and output: Urine output recorded since overnight is 1.2 liters. Weight in the bed scale is not available. PHYSICAL EXAMINATION: General: The patient is awake, alert, oriented times three, laying in bed in no apparent distress. Head and neck exam: Extraocular muscles intact. Pupils equally round and reactive to light. Mucous membranes are moist. Neck is supple. Right IJ triple lumen catheter was noted. Cardiovascular: S1, S2. Regular rate. No edema of the bilateral lower extremities. Respiratory: Chest is clear to auscultation bilaterally. Bilateral equal air entry. No rales or rhonchi. Abdomen: Soft, obese, positive bowel sounds. Old surgical scars. No organomegaly. Musculoskeletal: No clubbing or cyanosis. Multiple needle perez in the bilateral upper extremities. Central nervous system (HISTORICAL GUIDE): No focal deficit. Power is 5/5 in all extremities. Skin: Rash in the bilateral lower extremities is improving. LABORATORY REVIEW: CBC showed WBC of 9.3, hemoglobin 8.9, platelets of 348. BMP showed sodium 141, potassium 3.6, chloride 117, bicarbonate 23, BUN 10, creatinine is 1.1, albumin is 2.2. Microbiology: Stool occult blood is negative. CURRENT INPATIENT MEDICATIONS: The patient's medications were all reviewed by myself. The patient was getting normal saline at 100 mL an hour. I have stopped the intravenous fluid because the patient is tolerating the oral fluids now. She continues to be on IV antibiotic, last doses tomorrow, and she continues to be on IV Venofer. Protonix IV has been stopped and she is on for Protonix 40 mg p.o. daily, Carafate has been stopped as well. ASSESSMENT/PLAN: 1. Acute kidney injury. Patient's renal function continues to improve. Creatinine has improved to 1.1. I have stopped the IV fluids. Continue to encourage oral hydration. 2. Bilateral lower extremity rash. 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 She got two doses of Solu-Medrol. She is currently not on oral steroids at this time. Clinically, she is improving. 3. Iron-deficiency anemia. The patient got 1 unit of PRBC transfusion yesterday. She is also getting IV Venofer. FOBT is negative Carafate has been stopped. DISPOSITION: The patient is clinically improving. Hopefully, by tomorrow, one she finishes her IV Venofer, she should be able to be discharged home.
[2019-05-29 14:07] LABS: HEPATITIS B SURFACE ANTIBODY NEGATIVE (POSITIVE)
[2019-05-29 14:18] LABS: HEPATITIS B SURFACE ANTIGEN NEGATIVE (NEGATIVE)
[2019-05-29 14:46] LABS: HEPATITIS B CORE ANTIBODY IGM NEGATIVE (NEGATIVE)
[2019-05-29 15:00] LABS: HEPATITIS C VIRUS ABY INDEX > 11.0 INDEX (<0.8)
[2019-05-29 21:15] VITALS: BP 144/97
[2019-05-29] MEDS: hydrOXYzine 25 MG TAB PO SCH (21:41)
[2019-05-29] MEDS: MIRTAZAPINE 15 MG TAB PO SCH (21:41)
[2019-05-29] MEDS: traZODone 100 MG TAB PO SCH (21:41)
[2019-05-30] MEDS: ACETAMINOPHEN TAB 650MG DOSE (2X325MG) PO PRN ×2 (02:31→08:32)
[2019-05-30 05:20] LABS: HEMATOCRIT 28.8 % (36.0-47.0); HEMOGLOBIN 9.4 g/dl (12.0-15.5); MEAN CORPUSCULAR HEMOGLOBIN 26.1 pg (27.0-33.0); MEAN CORPUSCULAR HGB CONC 32.6 g/dl (32.0-36.5); PLATELET COUNT, AUTOMATED 379 10^3/uL (150-450); WHITE BLOOD COUNT 9.5 10^3/uL (4.0-10.0)
[2019-05-30 05:21] VITALS: BP 149/89
[2019-05-30 05:52] LABS: ALBUMIN 2.3 GM/DL (3.2-5.2); ALT/SGPT 12 U/L (12-78); BILIRUBIN,TOTAL 0.3 MG/DL (0.2-1.0); BLOOD UREA NITROGEN 8 MG/DL (7-18); CALCIUM LEVEL 8.3 MG/DL (8.5-10.1); CARBON DIOXIDE LEVEL 26 MEQ/L (21-32); CHLORIDE LEVEL 112 MEQ/L (98-107); CREATININE FOR GFR 0.92 MG/DL (0.55-1.30); GLOMERULAR FILTRATION RATE > 60.0 (>58); GLUCOSE, FASTING 93 MG/DL (70-100); POTASSIUM SERUM 2.9 MEQ/L (3.5-5.1); SODIUM LEVEL 143 MEQ/L (136-145); TOTAL PROTEIN 6.9 GM/DL (6.4-8.2)
[2019-05-30] MEDS ORDERED: POTASSIUM CHLORIDE 10 MEQ SR TABLET PO ONE ×2 (06:00→08:00)
[2019-05-30] MEDS: SODIUM CHLORIDE 0.9% INJ 10 ML SYR IV SCH (06:05)
[2019-05-30] MEDS: SODIUM CHLORIDE 0.9% INJ 10 ML SYR IV PRN ×2 (06:05→06:06)
[2019-05-30] MEDS: VENLAFAXINE **XR** 75MG CAPSULE PO SCH (08:32)
[2019-05-30] MEDS: FERROUS SULFATE 325MG TAB PO SCH (08:32)
[2019-05-30] MEDS: PANTOPRAZOLE 40MG TAB (PROTONIX) PO SCH (08:32)
[2019-05-30 08:48] LABS: ALBUMIN % 44.6 % (55.8-66.1); ALPHA-1-GLOBULIN % 6.4 % (2.9-4.9); ALPHA-2-GLOBULINS % 11.2 % (7.1-11.8); BETA-1-GLOBULINS % 6.1 % (4.7-7.2)
[2019-05-30 08:49] LABS: ALBUMIN 3.17 GM/DL (3.29-5.55); ALPHA-1-GLOBULINS 0.45 GM/DL (0.17-0.41); BETA-1-GLOBULINS 0.43 GM/DL (0.28-0.60); BETA-2-GLOBULINS % 7.1 % (3.2-6.5); GAMMA GLOBULIN % 24.6 % (11.1-18.8); GAMMA GLOBULINS 1.75 GM/DL (0.65-1.58)
[2019-05-30] MEDS ORDERED: FERR325T18 PO (08:59)
[2019-05-30] MEDS: IRON SUCROSE 200 MG in NS 100 ML IV SCH (09:48)
--- NOTE | 2019-05-30 10:53 | DS.PDOC ---
Discharge Summary General Date of Admission May 27, 2019 at 01:15 Date of Discharge 05/30/2019 Discharge Summary PROCEDURES PERFORMED DURING STAY: R IJ TLC on 05/28/[address] Pena ADMITTING DIAGNOSES / DISCHARGE DIAGNOSES: s/p PANFILO Poor IV access UTI Hypokalemia Microcytic anemia LE lesions - 2/2 suspected vasculitis IVDA Recent Endocarditis / MSSA Bacteremia Anxiety Chronic Hepatitis C Chronic lower back pain 2/2 Spinal stenosis GI prophylaxis DVT prophylaxis COMPLICATIONS/CHIEF COMPLAINT: Elevated creatinine HISTORY OF PRESENT ILLNESS: Patient is a 48-year-old female with a PMHx of IVDA, Recent Endocarditis (s/p 4 weeks of IV antibiotics, follows with Dr. Jose), Anxiety, Hepatitis C, and Chronic lower back pain 2/2 Spinal stenosis who presented to the ER at the direction of infectious disease and dermatology for worsening renal function. Patient was following up with dermatology as an outpatient for suspected vasculitis and had a biopsy completed of her left lower extremity. Patient has been seen by dermatology after she had intermittent skin lesions of her bilateral lower extremities. Biopsy results are pending. HOSPITAL COURSE: s/p PANFILO - Baseline Cr of 0.8; on admission was 2.10 - Creatinine has normalized - Renal US 05/26: 1. 2.3 cm simple right renal cyst. 2. Mild left hydronephrosis cannot be excluded. - s/p IV fluids - Will avoid nephrotoxic medications - Nephrology on consultation; appreciate their input Poor IV access - Given prior history of IV drug abuse, patient has very poor peripheral IV access - s/p Central line access (R IJ TLC) - Discussed with Dr. Pena, appreciate their input UTI - Reported increased urinary frequency / no dysuria - Hemodynamically stable / Afebrile - s/p Leukocytosis - UA with evidence of possible infection; Will order urine culture - s/p Ceftriaxone (3 day course) Hypokalemia - Again will supplement aggressively - likely low 2/2 IV fluid hydration Microcytic anemia - Patient has reported some blood in her stool over the last several weeks - Hg baseline of 8-10; Hg has been trending down, likely 2/2 dilutional etiology - Iron panel from 05/01 consistent with iron deficiency anemia - Stool for occult blood negative - s/p 1 unit PRBC - c/w Iron supplementation - Outpatient follow up with PCP for possible GI referral if recurrence of symptoms; no alarm symptoms at this time LE lesions - 2/2 suspected vasculitis - Patient has reported worsening lower extremity lesions have been occurring intermittently since discharge - s/p Skin biopsy with Dermatology, Dr. Tan - Cryoglobulins - negative - ANCA / NINO serology pending - c/w Prednisone; s/p Solumedrol 40 IV daily IVDA - Patient indicated that she has used injected Chantel 3 days prior to admission Recent Endocarditis / MSSA Bacteremia - s/p 4 weeks of IV antibiotics - Follows with Dr. Jose Anxiety - c/w Venlafaxine / Trazodone / Hydroxyzine Chronic Hepatitis C - Most recent Hepatitis C RNA level was noted to be negative Chronic lower back pain 2/2 Spinal stenosis - c/w Tylenol PRN GI prophylaxis - s/p Protonix + Carafate - Occult blood negative - c/w Omeprazole on discharge DVT prophylaxis - c/w TEDs/Sequentials; s/p Heparin DISCHARGE MEDICATIONS: Please see below. ALLERGIES: Please see below. PHYSICAL EXAMINATION ON DISCHARGE: Vitals (See below) General: Lying in bed, comfortable, AAOx3 HEENT: NC, AT, scabs around face CVS: +S1S2 Lungs: Air entry fair b/l, no rhonchi / rales / crackles Abdomen: Soft, non-distended / non-tender Extremities: no edema at LE, - Calf tenderness Skin: Regression of LE lesions - decreasing erythema, non-tender LABORATORY DATA: Please see below. ACTIVITY: [As tolerated]. DISCHARGE PLAN: Follow up with Dr. Hank Tran and Dr. Bautista within 7 days Remain complaint with treatment plan and medications Return to the ER if you experience any problems DISPOSITION: Home DISCHARGE CONDITION: [Stable]. TIME SPENT ON DISCHARGE: 35 minutes Vital Signs/I&Os Vital Signs Date Time Temp Pulse Resp B/P (MAP) Pulse Ox O2 Delivery O2 Flow Rate FiO2 05/30/19 05:21 98.4 90 18 149/89 (109) 96 Room Air I&O- Last 24 Hours up to 6 AM 05/30/19 05:59 Intake Total 1140 ml Output Total 2800 ml Balance -1660 ml Laboratory Data Labs 24H Laboratory Tests 2 05/30/19 04:56: Nucleated Red Blood Cells % (auto) 0.0, Anion Gap 5L, Glomerular Filtration Rate > 60.0, Calcium Level 8.3L, Total Bilirubin 0.3, Aspartate Amino Transf (AST/SGOT) 11, Alanine Aminotransferase (ALT/SGPT) 12, Alkaline Phosphatase 100, Total Protein 6.9, Albumin 2.3L, Albumin/Globulin Ratio 0.50L CBC/BMP Laboratory Tests 05/30/19 04:56 Microbiology Microbiology 05/29/19 Stool Occult Blood ([place]) - Final, Complete 05/27/19 Urine Culture - Final, Complete 05/26/19 Blood Culture - Preliminary, Resulted No Growth after 72 hours. All specime... Discharge Medications Scheduled Ergocalciferol (Vitamin D2) (Vitamin D2) 50,000 Units Cap, 50,000 UNITS PO 1XWK, (Reported) Estradiol (Estrace) 0.5 Mg Tablet, 0.5 MG PO DAILY, (Reported) Ferrous Sulfate (Ferrous Sulfate) 325 Mg Tablet, 325 MG PO DAILY Hydroxyzine HCl (Hydroxyzine HCl) 25 Mg Tablet, 25 MG PO QHS, (Reported) Meloxicam (Meloxicam) 15 Mg Tablet, 15 MG PO DAILY, (Reported) Mirtazapine (Remeron) 30 Mg Tablet, 30 MG PO QHS, (Reported) Omeprazole (Omeprazole) 20 Mg Capsule.dr, 20 MG PO DAILY, (Reported) Trazodone HCl (Trazodone HCl) 100 Mg Tablet, 100 MG PO QHS, (Reported) Triamcinolone Acet (Triamcinolone Acetonide 0.1% Crm) 80 Gm Cream..g., 1 APLCT TOP BID, (Reported) APPLY TO RASH ON LEGS Venlafaxine HCl (Effexor Xr) 75 Mg Cap.er.24h, 75 MG PO DAILY, (Reported) Scheduled PRN Acetaminophen (Acetaminophen 8 Hour) 650 Mg Tablet.er, 650 MG PO TID PRN for PAIN, (Reported) Sennosides/Docusate Sodium (Senna Plus Tablet) 1 Each Tablet, 1 TAB PO BID PRN for CONSTIPATION, (Reported) Allergies Coded Allergies: vancomycin (Verified Allergy, Severe, 05/26/19) Penicillins (Verified Allergy, Intermediate, RASH, 07/08/18) Sulfa (Sulfonamide Antibiotics) (Verified Allergy, Intermediate, RASH, 07/08/18) trimethoprim (Verified Allergy, Intermediate, RASH, 07/08/18) tramadol (Verified Adverse Reaction, Intermediate, ITCHING, URINARY R ETENTION, 07/08/18) PURA GARNER MD May 30, 2019 10:53
--- NOTE | 2019-05-30 11:51 | IPN ---
DATE OF SERVICE: 05/30/2019 SUBJECTIVE: The patient was seen and examined at the bedside today morning. She is afebrile, hemodynamically stable. She was getting her IV Venofer when I saw her. Her renal function has improved back to baseline. The patient is slightly hypokalemic today. She was already given potassium today morning. Otherwise she denies any active complaints. OBJECTIVE: Vital signs: Temperature is 19.4 degrees Fahrenheit, blood pressure is 149/89, pulse is 90, respiratory of 18, saturating 96% on room air. Intake and output - urine output recorded is 2.4 liters yesterday, 525 mL so far today since overnight. Weight in the bed scale is not available. PHYSICAL EXAMINATION: General: The patient is awake, alert, oriented times three, laying in bed in no apparent distress. Head and neck exam extraocular muscles intact. Pupils equally round and reactive to light. Mucous membranes are moist. Neck is supple. She has a right IJ triple lumen catheter. Cardiovascular: S1, S2, regular rate. No edema of the bilateral lower extremities. Respiratory: Chest is clear to auscultation bilaterally. Bilateral equal air entry. No rales or rhonchi. Abdomen: Soft, obese, positive bowel sounds. Old surgical scar. Musculoskeletal: No clubbing or cyanosis. Pulses are 2+. Multiple needle perez and tracks in the bilateral upper extremities. 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 Skin: Rash in bilateral lower extremities significantly better. LAB REVIEW: CBC showed a WBC 9.5, hemoglobin 9.4, platelets of 379. BMP showed sodium 143, potassium 2.9, chloride 112, bicarb 26, BUN 8, creatinine is 0.92, calcium 8.3. Serology hepatitis B antibody is positive, hepatitis C virus RNA is pending. CURRENT INPATIENT MEDICATIONS: The patient's medications were all reviewed by myself. The patient got 40 mEq potassium early-morning and another 40 mEq was given at around 8 o'clock. IV antibiotics have been stopped and today is the last day of IV Venofer. ASSESSMENT AND PLAN: 1. Acute kidney injury. Patient's renal function has improved back to baseline. Creatinine is less than one today. 2. Bilateral lower extremity rash. It was Henoch-Schonlein purpura, she got two doses of Solu-Medrol, no further need of prednisone at this time. 3. Iron-deficiency anemia, hemoglobin level is improving. The patient is getting third dose of IV Venofer. 4. Hypokalemia. Potassium level was low. She was given two doses of potassium chloride today morning. 5. Disposition. Patient's renal function has improved back to baseline. Nephrology service is going to sign off at this moment. Please call nephrology service for any help in the management of this patient during this hospitalization.
[2019-06-01 14:06] LABS: ANTI DS-DNA AB Negative (Negative); ANTINUCLEAR ANTIBODIES DIRECT Negative (Negative); CYTOPLASMIC NEUTROP AB ANCA-C <1:20 titer (Neg:<1:20); FREE KAPPA LIGHT CHAINS SERUM 54.5 mg/L (3.3-19.4); FREE LAMBDA LIGHT CHAINS SERUM 37.6 mg/L (5.7-26.3); HEPATITIS B CORE ANTIBODY IGG Negative (Negative); KAPPA/LAMBDA RATIO SERUM 1.45 (0.26-1.65); PERINUCLEAR AB ANCA-P <1:20 titer (Neg:<1:20)
== END 2019-05-30 14:05 | disposition home or self-care (01) | DRG 346 ==
LOC: M ED 22:21 → M ED INP 22:22 → ENRESERV 05-27 00:26 → OBSVTOIN 05-27 01:15 → M MS5PR 05-27 01:31
PROVIDERS: ADMIT Internal Medicine; ATTEND Internal Medicine
PROC: 30233N1 Transfusion of Nonautologous Red Blood Cells into Peripheral Vein, Percutaneous Approach (ICD-10-PCS; principal; 2019-05-28)
PROC: 05HM33Z Insertion of Infusion Device into Right Internal Jugular Vein, Percutaneous Approach (ICD-10-PCS; 2019-05-28)
DX: I77.6 Arteritis, unspecified (principal); N17.9 Acute kidney failure, unspecified; E87.2 Acidosis; E87.1 Hypo-osmolality and hyponatremia; D69.0 Allergic purpura; N39.0 Urinary tract infection, site not specified; F41.9 Anxiety disorder, unspecified; E87.6 Hypokalemia; B18.2 Chronic viral hepatitis C; D50.9 Iron deficiency anemia, unspecified; Z81.3 Family history of other psychoactive substance abuse and dependence; M48.061 Spinal stenosis, lumbar region without neurogenic claudication; Z79.899 Other long term (current) drug therapy; Z88.0 Allergy status to penicillin; Z88.2 Allergy status to sulfonamides; Z88.8 Allergy status to other drugs, medicaments and biological substances; F17.210 Nicotine dependence, cigarettes, uncomplicated; F15.10 Other stimulant abuse, uncomplicated

== ENCOUNTER → 2019-05-26 | Outpatient (REF) | payer OTHER ==
[~2019-05-26] MED LIST changes: +FERR325T18 PO; +OMEP1CAP73 PO; +QC A650T3 PO; +SENN-50 PO
== END ==
LOC: M LAB REF 17:15
PROVIDERS: ATTEND Dermatology
DX: L95.9 Vasculitis limited to the skin, unspecified (principal)

== ENCOUNTER → 2019-05-26 | Outpatient (CLI) | payer OTHER ==
[2019-05-26 16:35] LABS: HEMATOCRIT 28.4 % (36.0-47.0); HEMOGLOBIN 9.1 g/dl (12.0-15.5); PLATELET COUNT, AUTOMATED 418 10^3/uL (150-450); RED BLOOD COUNT 3.64 10^6/uL (4.00-5.40)
[2019-05-26 16:49] LABS: APPEARANCE, URINE HAZY (CLEAR); BACTERIA, URINE AUTO 1+ (NEGATIVE); BILIRUBIN, URINE AUTO NEGATIVE (NEGATIVE); BLOOD, URINE BLOOD 3+ (NEGATIVE); COLOR, URINE YELLOW (YELLOW); GLUCOSE, URINE (UA) AUTO NEGATIVE (NEGATIVE); GRANULAR CAST, URINE AUTO 1 /LPF; KETONE, URINE AUTO NEGATIVE (NEGATIVE); LEUKOCYTE ESTERASE, URINE AUTO NEGATIVE (NEGATIVE); MUCUS, URINE SMALL (NEGATIVE); NITRITE, URINE AUTO NEGATIVE (NEGATIVE); PROTEIN, URINE AUTO 2+ mg/dL (NEGATIVE); RBC, URINE AUTO 134 /HPF (0-3); SPECIFIC GRAVITY URINE AUTO 1.013 (1.002-1.035); SQUAMOUS EPITHELIAL CELL UR AU 3 /HPF (0-6); UROBILINOGEN, URINE AUTO 0.2 mg/dL (0.0-2.0); WBC, URINE AUTO 26 /HPF (0-3)
--- NOTE | 2019-05-26 16:52 | REP ---
Clinical: Vasculitis . Comparison: 05/11/2019 . Technique: PA and lateral. Findings: The mediastinum and cardiac silhouette are normal. The lung brownlee are clear and without acute consolidation, effusion, or pneumothorax. The skeletal structures are intact and normal. Impression: 1. No acute cardiopulmonary process. Electronically Signed by Dung Taveras MD 05/26/2019 04:44 P
[2019-05-26 17:08] LABS: ALBUMIN 3.3 GM/DL (3.2-5.2); ALT/SGPT 25 U/L (12-78); BILIRUBIN,TOTAL 0.3 MG/DL (0.2-1.0); BLOOD UREA NITROGEN 29 MG/DL (7-18); CALCIUM LEVEL 8.5 MG/DL (8.5-10.1); CARBON DIOXIDE LEVEL 20 MEQ/L (21-32); CHLORIDE LEVEL 105 MEQ/L (98-107); COMPLEMENT C4 34 MG/DL (10-40); GLOMERULAR FILTRATION RATE 26.8 (>58); GLUCOSE, FASTING 85 MG/DL (70-100); POTASSIUM SERUM 3.4 MEQ/L (3.5-5.1); SODIUM LEVEL 133 MEQ/L (136-145); TOTAL PROTEIN 8.3 GM/DL (6.4-8.2)
[2019-05-27 07:48] LABS: CRYOGLOBULINS NEGATIVE (NEGATIVE)
[2019-05-31 00:06] LABS: ANCA-ATYPICAL 1:20 titer (Neg:<1:20); ANTINUCLEAR ANTIBODIES DIRECT Negative (Negative); CYTOPLASMIC NEUTROP AB ANCA-C <1:20 titer (Neg:<1:20); PERINUCLEAR AB ANCA-P <1:20 titer (Neg:<1:20)
== END ==
LOC: M LAB 15:20
PROVIDERS: ATTEND Dermatology
DX: I77.6 Arteritis, unspecified (principal)

== ENCOUNTER → 2019-06-02 | Outpatient (CLI) | payer OTHER ==
[~2019-06-02] MED LIST changes: +FERR325T18 PO; +OMEP1CAP73 PO; +QC A650T3 PO; +SENN-50 PO
[2019-06-02 14:56] LABS: APPEARANCE, URINE HAZY (CLEAR); BACTERIA, URINE AUTO NEGATIVE (NEGATIVE); BILIRUBIN, URINE AUTO NEGATIVE (NEGATIVE); BLOOD, URINE BLOOD 3+ (NEGATIVE); COLOR, URINE YELLOW (YELLOW); GLUCOSE, URINE (UA) AUTO NEGATIVE (NEGATIVE); KETONE, URINE AUTO NEGATIVE (NEGATIVE); LEUKOCYTE ESTERASE, URINE AUTO NEGATIVE (NEGATIVE); MUCUS, URINE SMALL (NEGATIVE); NITRITE, URINE AUTO NEGATIVE (NEGATIVE); PROTEIN, URINE AUTO 1+ mg/dL (NEGATIVE); RBC, URINE AUTO TNTC /HPF (0-3); SPECIFIC GRAVITY URINE AUTO 1.023 (1.002-1.035); SQUAMOUS EPITHELIAL CELL UR AU 3 /HPF (0-6); UROBILINOGEN, URINE AUTO 0.2 mg/dL (0.0-2.0); WBC, URINE AUTO 6 /HPF (0-3)
== END ==
LOC: M LAB 14:27
PROVIDERS: ATTEND Dermatology
DX: Z48.02 Encounter for removal of sutures (principal)

== ENCOUNTER → 2019-06-13 | Outpatient (CLI) | payer OTHER ==
--- NOTE | 2019-06-13 13:02 | REPPI ---
LUMBOSACRAL SPINE, FIVE VIEWS: Five views of the lumbosacral spine are performed and compared to a prior study of 04/01/2017. There is no compression fracture. There is normal alignment and lumbar lordosis. There is mild disc space narrowing at L3-4 which is new compared to the prior study. There is again evidence of prior discectomy and posterior fusion at L4-5. There is no change in the appearance of the L4-5 level compared to the prior study. There is mild disc space narrowing and subchondral sclerosis at L5-S1, unchanged. Metallic clips are seen in the right upper quadrant. There appears to have been a laminectomy at L4. IMPRESSION: Postsurgical changes L4-5 level. New mild disc space narrowing at L3-4. Otherwise stable exam compared to 04/01/2017 exam. Electronically Signed by Josué Ramirez MD 06/13/2019 03:12 P
== END ==
LOC: M PLAIMG 10:52
PROVIDERS: ATTEND Internal Medicine Infectious Disease
DX: M54.5 Low back pain (principal); Z98.1 Arthrodesis status

== ENCOUNTER → 2019-06-13 | Outpatient (REF) | payer OTHER | LOC: M SFHCPLAZ 10:51 | PROVIDERS: ATTEND Internal Medicine Infectious Disease | DX: M54.5 Low back pain (principal); D50.9 Iron deficiency anemia, unspecified; Z53.9 Procedure and treatment not carried out, unspecified reason ==

== ENCOUNTER → 2019-06-14 | Outpatient (CLI) | payer OTHER ==
[2019-06-14 13:29] LABS: BASO # 0.1 10^3/uL (0.0-0.2); BASO % 0.4 % (0.0-1.0); EOS # 0.2 10^3/uL (0.0-0.5); EOS % 1.2 % (0.0-3.0); HEMOGLOBIN 11.1 g/dl (12.0-15.5); LYMPH # 2.1 10^3/uL (1.5-5.0); LYMPH % 15.8 % (24.0-44.0); MEAN CORPUSCULAR HEMOGLOBIN 25.5 pg (27.0-33.0); MEAN CORPUSCULAR HGB CONC 31.7 g/dl (32.0-36.5); MEAN CORPUSCULAR VOLUME 80.5 fl (80.0-96.0); MONO # 0.9 10^3/uL (0.0-0.8); MONO % 7.1 % (0.0-5.0); NEUTROPHILS # 9.7 10^3/uL (1.5-8.5); PLATELET COUNT, AUTOMATED 643 10^3/uL (150-450); RED BLOOD COUNT 4.35 10^6/uL (4.00-5.40)
[2019-06-14 13:48] LABS: ERYTHROCYTE SEDIMENTATION RATE 70 mm/hr (0-20)
[2019-06-14 14:00] LABS: BLOOD UREA NITROGEN 12 MG/DL (7-18); CALCIUM LEVEL 9.4 MG/DL (8.5-10.1); CARBON DIOXIDE LEVEL 23 MEQ/L (21-32); CHLORIDE LEVEL 102 MEQ/L (98-107); CREATININE FOR GFR 0.96 MG/DL (0.55-1.30); FERRITIN 1030 NG/ML (8-252); GLOMERULAR FILTRATION RATE > 60.0 (>58); GLUCOSE, FASTING 122 MG/DL (70-100); IRON (FE) 35 UG/DL (50-170); PERCENT SATURATION 15.3 % (13.2-45.0); POTASSIUM SERUM 3.5 MEQ/L (3.5-5.1); SODIUM LEVEL 135 MEQ/L (136-145); TOTAL IRON BINDING CAPACITY 229 UG/DL (250-450)
== END ==
LOC: M LAB 12:50
PROVIDERS: ATTEND Internal Medicine Infectious Disease
DX: M54.5 Low back pain (principal); D50.9 Iron deficiency anemia, unspecified

== ENCOUNTER 2019-06-21 12:16 | Emergency (ER) | payer OTHER ==
[~2019-06-21] VITALS: Ht 147.3 cm; Wt 52.9 kg
[2019-06-21 12:16] VITALS: BP 117/89
[~2019-06-21 12:16] MED LIST changes: +OXYC30TA PO; -OXYC30TA84 PO
[2019-06-21] MEDS ORDERED: EFFE150C2 PO (12:33)
[2019-06-21] MEDS ORDERED: LIDO5DIS41 TD (13:14)
[2019-06-21] MEDS ORDERED: GABA-843 PO (13:14)
[2019-06-21] MEDS ORDERED: ACETAMINOPHEN TAB 650MG DOSE (2X325MG) PO ONE (13:15)
[2019-06-21] MEDS ORDERED: LIDOCAINE 5% (LIDODERM) PATCH TD ONE (13:15)
[2019-06-21] MEDS ORDERED: **NOTE PATIENT COMMENT** MISC XX SCH (21:00)
== END 2019-06-21 13:22 | disposition home or self-care (01) ==
LOC: M ED 12:16
DX: M54.42 Lumbago with sciatica, left side (principal); M51.9 Unspecified thoracic, thoracolumbar and lumbosacral intervertebral disc disorder; M79.7 Fibromyalgia; I10 Essential (primary) hypertension; F17.200 Nicotine dependence, unspecified, uncomplicated; K25.9 Gastric ulcer, unspecified as acute or chronic, without hemorrhage or perforation; M81.0 Age-related osteoporosis without current pathological fracture; M48.00 Spinal stenosis, site unspecified; Z86.19 Personal history of other infectious and parasitic diseases; F19.10 Other psychoactive substance abuse, uncomplicated; F41.9 Anxiety disorder, unspecified; F31.89 Other bipolar disorder; F43.10 Post-traumatic stress disorder, unspecified; Z86.14 Personal history of Methicillin resistant Staphylococcus aureus infection; I33.0 Acute and subacute infective endocarditis; Z87.440 Personal history of urinary (tract) infections; Z79.899 Other long term (current) drug therapy; Z88.0 Allergy status to penicillin; Z88.2 Allergy status to sulfonamides; Z88.5 Allergy status to narcotic agent; Z88.8 Allergy status to other drugs, medicaments and biological substances

== ENCOUNTER → 2019-06-23 | Outpatient (CLI) | payer OTHER ==
[~2019-06-23] MED LIST changes: +FERR1TAB8 PO; +GABA-843 PO; +LIDO5DIS41 TD; +LIDO5DIS41 TOP; +LOVE1INJ SC; +OMEP-221 PO; +PATIENT COMMENT; +PERCOCET PO; +PROHANCE 279.3MG/ML 15ML VIAL (A9576) As Ordered ONE; +RISP2TAB3 PO; +SERO1TAB PO; +VENL150C43 PO
== END ==
LOC: M RAD 11:08
PROVIDERS: ATTEND Internal Medicine Infectious Disease
DX: B95.62 Methicillin resistant Staphylococcus aureus infection as the cause of diseases classified elsewhere (principal); M54.5 Low back pain

== ENCOUNTER 2019-06-24 11:05 | Emergency (ER) | payer OTHER ==
[~2019-06-24] VITALS: Ht 149.9 cm; Wt 51.8 kg
[~2019-06-24 11:05] MED LIST changes: -FERR1TAB8 PO; -LIDO5DIS41 TOP; -LOVE1INJ SC; -OMEP-221 PO; -PATIENT COMMENT; -PERCOCET PO; -PROHANCE 279.3MG/ML 15ML VIAL (A9576) As Ordered ONE; -RISP2TAB3 PO; -SERO1TAB PO; -VENL150C43 PO
--- NOTE | 2019-06-24 12:24 | ECGEPIP ---
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
[2019-06-24 12:30] LABS: BASO % 0.3 % (0.0-1.0); EOS # 0.2 10^3/uL (0.0-0.5); EOS % 2.2 % (0.0-3.0); HEMATOCRIT 27.4 % (36.0-47.0); HEMOGLOBIN 8.8 g/dl (12.0-15.5); LYMPH # 1.6 10^3/uL (1.5-5.0); LYMPH % 17.1 % (24.0-44.0); MEAN CORPUSCULAR HEMOGLOBIN 26.2 pg (27.0-33.0); MEAN CORPUSCULAR HGB CONC 32.1 g/dl (32.0-36.5); MEAN CORPUSCULAR VOLUME 81.5 fl (80.0-96.0); MONO # 0.9 10^3/uL (0.0-0.8); MONO % 9.8 % (0.0-5.0); NEUTROPHILS # 6.6 10^3/uL (1.5-8.5); NEUTROPHILS % 70.3 % (36.0-66.0); PLATELET COUNT, AUTOMATED 345 10^3/uL (150-450); RED BLOOD COUNT 3.36 10^6/uL (4.00-5.40); WHITE BLOOD COUNT 9.4 10^3/uL (4.0-10.0)
[2019-06-24 12:35] LABS: AMPHETAMINES LEVEL URINE NEGATIVE (NEGATIVE); BARBITURATES URINE NEGATIVE (NEGATIVE); BENZODIAZEPINES URINE NEGATIVE (NEGATIVE); CANNABINOIDS URINE NEGATIVE (NEGATIVE); COCAINE METABOLITE URINE NEGATIVE (NEGATIVE); METHADONE URINE NEGATIVE (NEGATIVE); OPIATES URINE POSITIVE (NEGATIVE); PHENCYCLIDINE URINE NEGATIVE (NEGATIVE)
[2019-06-24 12:49] LABS: ERYTHROCYTE SEDIMENTATION RATE 105 mm/hr (0-20)
[2019-06-24 12:50] LABS: HCG, SERUM QUALITATIVE NEGATIVE (NEGATIVE)
[2019-06-24 12:58] LABS: ACETAMINOPHEN LEVEL < 2.0 UG/ML (10.0-30.0); ALBUMIN 2.4 GM/DL (3.2-5.2); ALT/SGPT 10 U/L (12-78); BILIRUBIN,DIRECT 0.1 MG/DL (0.0-0.2); BILIRUBIN,TOTAL 0.2 MG/DL (0.2-1.0); BLOOD UREA NITROGEN 11 MG/DL (7-18); CALCIUM LEVEL 8.4 MG/DL (8.5-10.1); CARBON DIOXIDE LEVEL 27 MEQ/L (21-32); CHLORIDE LEVEL 109 MEQ/L (98-107); CREATININE FOR GFR 0.98 MG/DL (0.55-1.30); ETHYL ALCOHOL (ETHANOL) < 0.003 % (0.000-0.010); GLOMERULAR FILTRATION RATE > 60.0 (>58); GLUCOSE, FASTING 72 MG/DL (70-100); POTASSIUM SERUM 3.6 MEQ/L (3.5-5.1); SALICYLATE LEVEL 2.3 MG/DL (5.0-30.0); SODIUM LEVEL 141 MEQ/L (136-145); THYROID STIMULATING HORMONE 0.325 uIU/ML (0.358-3.740); TOTAL PROTEIN 6.9 GM/DL (6.4-8.2)
--- NOTE | 2019-06-24 13:06 | REP ---
Portable chest x-ray: Single view. History: Syncope/near syncope. Comparison chest x-ray is from May 28, 2019. Findings: The patient is status post cervical discectomy and fusion plating. There are clips in the right upper quadrant of the abdomen. Monitoring electrodes are seen. The lungs are well inflated and free of infiltrate. Pleural angles are sharp. Cardio-mediastinal silhouette is unremarkable. There is an old healed rib fracture on the left unchanged. Impression: No active disease. Electronically Signed by Edison Biggs MD 06/24/2019 12:58 P
--- NOTE | 2019-06-24 13:09 | REP ---
Head CT without contrast: History: Altered mental status. Comparison study: Comparison head CT study March 30, 2019. CT findings: Bone window settings demonstrate an intact bony calvarium. There is no evidence of skull fracture or incidental bony calvarial lesion. The visualized paranasal sinuses appear clear. No intraorbital abnormality is seen. On soft tissue window setting images; the lateral, third, and fourth ventricles are normal in size and position. Ramirez-white differentiation pattern is normal above and below the tentorium. There are is no evidence of intracranial hemorrhage. No mass, edema, infarction, or midline shift is seen. No extra-axial fluid collection is appreciated. Impression: Negative noncontrast head CT. Electronically Signed by Edison Biggs MD 06/24/2019 01:01 P
[2019-06-24] MEDS ORDERED: MORPHINE 2 MG/ML 1ML VIAL (J2270) IV ONE (14:00)
[2019-06-24 14:30] VITALS: BP 130/80
== END 2019-06-24 14:40 | disposition home or self-care (01) ==
LOC: EDBD 11:05 → M ED 11:05
DX: M54.5 Low back pain (principal); G89.29 Other chronic pain; L95.9 Vasculitis limited to the skin, unspecified; M25.562 Pain in left knee; F19.10 Other psychoactive substance abuse, uncomplicated; A49.02 Methicillin resistant Staphylococcus aureus infection, unspecified site; F17.200 Nicotine dependence, unspecified, uncomplicated; Z88.0 Allergy status to penicillin; Z88.2 Allergy status to sulfonamides; Z88.5 Allergy status to narcotic agent; Z88.1 Allergy status to other antibiotic agents; Z79.899 Other long term (current) drug therapy
CPT/HCPCS: 70450; 71045; 80048; 80076; 80307; 84443; 84703; 85025; 85652; 86140; 87040; 87077; 87186; 93005; 93041; 94760; 96374; 99285; G0480; J2270

== ENCOUNTER 2019-06-26 09:00 | Inpatient (IN) | payer OTHER ==
[~2019-06-26] VITALS: Ht 147.3 cm; Wt 53.9 kg
[2019-06-26 11:03] VITALS: BP 159/102
[2019-06-26] MEDS ORDERED: MAALOX 30 ML SUSP *UDC PO PRN (11:45)
[2019-06-26] MEDS ORDERED: MOM 30ML SUSPENSION UDC PO PRN (11:45)
[2019-06-26] MEDS ORDERED: LORazepam 2 MG/ML VIAL (J2060) IM STA ×4 (11:57→17:52)
[2019-06-26] MEDS ORDERED: LORazepam 2 MG/ML VIAL (J2060) As Ordered ONE ×3 (12:07→18:09)
[2019-06-26] MEDS: DOCUSATE SODIUM 100 MG CAP PO SCH ×2 (12:21→21:00)
[2019-06-26] MEDS: ACETAMINOPHEN TAB 650MG DOSE (2X325MG) PO PRN ×2 (12:21→21:02)
[2019-06-26] MEDS: ENOXAPARIN 40MG/0.4ML SYRINGE (J1650 PER 10MG) SC SCH (12:22)
[2019-06-26 12:24] LABS: HEMATOCRIT 29.5 % (36.0-47.0); HEMOGLOBIN 9.5 g/dl (12.0-15.5); MEAN CORPUSCULAR HEMOGLOBIN 26.1 pg (27.0-33.0); MEAN CORPUSCULAR HGB CONC 32.2 g/dl (32.0-36.5); PLATELET COUNT, AUTOMATED 399 10^3/uL (150-450); RED BLOOD COUNT 3.64 10^6/uL (4.00-5.40); WHITE BLOOD COUNT 11.4 10^3/uL (4.0-10.0)
--- NOTE | 2019-06-26 12:35 | HPEPDOC ---
General Date of Admission Jun 26, 2019 at 10:49 Date of Service: Jun 26, 2019 Chief Complaint The patient is a 48-year-old female admitted with a reason for visit of Staph Aureus Bacteremia. Source: Patient Exam Limitations: No limitations Timing/Duration: Other (NA) Severity: Other (NA) Associated Symptoms: Other (NA) History of Present Illness 48 years old white female with past medical history of a IV drug abuse, recently diagnosed with endocarditis and treated was called back by infectious disease secondary to positive cultures for Staphylococcus. She needs to be admitted with a Staphylococcus bacteremia. Patient complaining of severe back pain but no nausea, vomiting, chest pain, shortness of breath. Home Medications Scheduled Ergocalciferol (Vitamin D2) (Vitamin D2) 50,000 Units Cap, 50,000 UNITS PO 1XWK, (Reported) Gabapentin (Gabapentin) 300 Mg Capsule, 1 CAP PO ASDIRECTED take 1 tab day 1, 1 tab bid day Hydroxyzine HCl (Hydroxyzine HCl) 25 Mg Tablet, 25 MG PO QHS, (Reported) Lidocaine (Lidoderm) 5% Adh..patch, 1 PATCH TD DAILY Apply to area of pain, Remove patch after 12 hours Omeprazole (Omeprazole) 20 Mg Capsule.dr, 20 MG PO DAILY, (Reported) Scheduled PRN Acetaminophen (Acetaminophen 8 Hour) 650 Mg Tablet.er, 650 MG PO TID PRN for PAIN, (Reported) Sennosides/Docusate Sodium (Senna Plus Tablet) 1 Each Tablet, 1 TAB PO BID PRN for CONSTIPATION, (Reported) Allergies Coded Allergies: vancomycin (Verified Allergy, Severe, 05/26/19) Penicillins (Verified Allergy, Intermediate, RASH, 07/08/18) Sulfa (Sulfonamide Antibiotics) (Verified Allergy, Intermediate, RASH, 07/08/18) trimethoprim (Verified Allergy, Intermediate, RASH, 07/08/18) tramadol (Verified Adverse Reaction, Intermediate, ITCHING, URINARY RETENTION, 07/08/18) Past Medical History Medical History Spinal stenosis, bacterial endocarditis, status post IV therapy, anxiety Surgical History None Family History History of alcoholism in the family, younger brother of alcohol abuse Social History * Smoker: current smoker Alcohol: Denies Drugs: heroin, marijuana, other (mollies) A-FIB/CHADSVASC A-FIB History Current/History of A-Fib/PAF?: No Review of Systems Constitutional: Denies: Chills, Fever, Malaise, Night Sweats, Weakness, Fatigue, Weight Loss, Lethargy, Other Eyes: Denies: Pain, Vision change, Conjunctivae inflammation, Eyelid inflammation, Redness, Other ENT: Denies: Head Aches, Ear Pain, Dysphagia, Sinus Congestion, Post Nasal Drip, Sore Throat, Epistaxis, Other Symptoms Skin: Denies: Rash, Lesions, Jaundice, Bruising, Itching, Dry, Breakdown, Nail Changes, Other Pulmonary: Denies: Dyspnea, Cough, Pleuritic Chest Pain, Other Symptoms Cardiovascular: Denies: Chest Pain, Palpitations, Orthopnea, Paroxysmal Noc. Dyspnea, Edema, Lt Headedness, Other Symptoms Gastrointestinal: Denies: Nausea, Vomiting, Abdominal Pain, Diarrhea, Constipation, Melena, Hematochezia, Other Symptoms Genitourinary: Denies: Dysuria, Frequency, Incontinence, Hematuria, Retention, Other Symptoms Hematologic: Denies: Bruising, Bleeding Excessively, Petecchia, Purpura, Enlarged Lymph Nodes, Other Hematologic Endocrine: Denies: Polydipsia, Polyphagia, Polyuria, Heat Intolerance, Cold Intolerance, Other Endocrine Sx Musculoskeletal: Denies: Neck Pain, Back Pain, Shoulder Pain, Arm Pain, Hand Pain, Leg Pain, Foot Pain, Joint Pain, Muscle Pain, Spasms, Other Symptoms Neurological: Denies: Weakness, Numbness, Incoordination, Change in speech, Confusion, Seizures, Other Symptoms Psych: Denies: Mood Normal, Anxiety, Depression, Memory Issues, Thoughts of Self Harm, Anger, Thoughts of Harming Other, Other Psych Physical Examination General Exam: Positive: Alert, Cooperative Eye Exam: Positive: PERRLA, Conjunctiva & lids normal ENT Exam: Positive: Atraumatic Neck Exam: Positive: Supple Chest Exam: Positive: Clear to auscultation, Normal air movement Heart Exam: Positive: Rate Normal, Normal S1, Normal S2 Abdomen Exam: Positive: Normal bowel sounds, Soft Extremity Exam: Positive: Normal pulses Skin Exam: Positive: Nl turgor and temperature Neuro Exam: Positive: Strength at 5/5 X4 ext, Cranial Nerves 3-12 NL Psych Exam: Positive: Anxiety, Oriented x 3 Vital Signs Vital Signs Date Time Temp Pulse Resp B/P (MAP) Pulse Ox O2 Delivery O2 Flow Rate FiO2 06/26/19 11:03 98.9 99 20 159/102 (121) 100 Room Air Laboratory Data Labs 24H Laboratory Tests 2 06/26/19 12:13: CBC/BMP Microbiology Microbiology 06/26/19 Blood Culture, Received Pending Problems (1) Staphylococcus aureus bacteremia Status: Acute Problem Text: 48 years old, 48 years old white female, a history of IV heroin abuse, recently treated for endocarditis with IV antibiotics was referred back to the hospital for direct admission secondary to positive staph bacteremia on recent blood cultures. Patient complains of only anxiety, and back pain that is chronic in nature ,but no shortness of breath, chest pain, nausea, vomiting, diarrhea, etc. Admit patient to [facility] Daptomycin 500 mg IV every 24 hours as per infectious disease CT lumbar spine without contrast CBC, CMP, urine analysis and blood cultures ordered Ativan 1 mg IM [address] Continue home meds DVT prophylaxis. Lovenox Diet regular Activity as tolerated (2) IV drug user Status: Chronic Problem Text: History of IV heroin abuse and history of endocarditis recently treated with IV antibiotics (3) Anxiety Status: Chronic Problem Text: Chronic history of anxiety. Will continue all home meds Plan / VTE VTE Prophylaxis Ordered?: Yes SELENE DAMON MD Jun 26, 2019 12:35
[2019-06-26] MEDS ORDERED: DAPTOmycin 500 MG in NS 50 ML IV SCH ×2 (13:00→14:00)
[2019-06-26 13:20] LABS: ALBUMIN 2.6 GM/DL (3.2-5.2); ALT/SGPT 16 U/L (12-78); BILIRUBIN,TOTAL 0.6 MG/DL (0.2-1.0); BLOOD UREA NITROGEN 8 MG/DL (7-18); CALCIUM LEVEL 8.6 MG/DL (8.5-10.1); CARBON DIOXIDE LEVEL 23 MEQ/L (21-32); CHLORIDE LEVEL 106 MEQ/L (98-107); CREATININE FOR GFR 1.01 MG/DL (0.55-1.30); GLOMERULAR FILTRATION RATE > 60.0 (>58); GLUCOSE, FASTING 75 MG/DL (70-100); POTASSIUM SERUM 3.9 MEQ/L (3.5-5.1); SODIUM LEVEL 139 MEQ/L (136-145); TOTAL PROTEIN 7.1 GM/DL (6.4-8.2)
[2019-06-26] MEDS ORDERED: LIDOCAINE 1% MDV 20ML VIAL As Ordered ONE (15:04)
--- NOTE | 2019-06-26 15:21 | REP ---
CT LUMBAR SPINE WITHOUT CONTRAST: CT lumbar spine performed without IV contrast. Sagittal and coronal reconstruction images are performed. Comparison is made with prior CT of abdomen and pelvis which was performed 03/30/2019. Vertebral bodies are normal in height and are well-aligned. There is again evidence of posterior laminectomy and fusion at the L4-5 level with a disc space replaced at that L4-5 level. There is mild disc space narrowing at L3-4, which is new. Inferior endplate of the L3 vertebral body is ill-defined and there is ill-defined subchondral lucency in the inferior portion of the L3 vertebral body. The findings are concerning for discitis and L3 vertebral body osteomyelitis. The L1-2 and L2-3 disc spaces are unremarkable. Visualized spinal canal appears adequate. The spinal canal is obscured at the L4-5 level. IMPRESSION: Mild disc space narrowing L3-4 with ill-defined inferior endplate of L3 and subchondral lucency in the inferior aspect of the L3 vertebral body. The findings are concerning for discitis and L3 osteomyelitis. Recommend further evaluation with MRI with and without contrast. Electronically Signed by Josué Ramirez MD 06/26/2019 03:22 P
[2019-06-26] MEDS ORDERED: SODIUM CHLORIDE 0.9% INJ 10 ML SYR IV PRN (16:00)
[2019-06-26] MEDS: SODIUM CHLORIDE 0.9% INJ 10 ML SYR IV SCH (16:59)
[2019-06-26 17:30] VITALS: BP 159/102
--- NOTE | 2019-06-26 17:51 | CR ---
DATE OF CONSULTATION: 06/26/2019 HISTORY OF PRESENT ILLNESS: Ms. Doty is a 48-year-old female with a history of intravenous (IV) drug use, and recent bacteremia with methicillin-resistant Staphylococcus aureus (MRSA), who was directly admitted to the hospital after two blood cultures, which were drawn in the emergency room on 06/24/2019, grew Staphylococcus aureus. She was discharged from the hospital on 04/15/2019 after being admitted for MRSA endocarditis. She was subsequently readmitted on 05/27/2019 with vasculitis, which was later diagnosed as Henoch-Schonlein purpura, treated with Solu-Medrol. Since discharge, the patient reported worsening back pain. She states this is in her low back and radiates down her left leg. She denies numbness or tingling in her legs. She does have a history of chronic back pain; however, this pain is much more severe and acute in nature. She states she has fallen multiple times due to her back giving out. She presented to the emergency room on two occasions due to the pain, once on 06/21/2019 and once on 06/24/2019. The emergency room physician called Dr. Jose's office to inform her of the positive blood culture result. Dr. Jose then called the hospitalist service for direct admission. REVIEW OF SYSTEMS: A complete 10-system review of systems with pertinent positives and negatives in the history of the present illness was completed. All other systems negative. PAST MEDICAL HISTORY: 1. Chronic neck and back pain. 2. Degenerative disc disease. 3. Spinal stenosis. 4. Fibromyalgia. 5. Depression/anxiety. 6. Substance abuse, patient at [facility] methadone clinic. 7. IV drug abuse. 8. Hepatitis C. 9. Rheumatoid arthritis. PAST SURGICAL HISTORY: 1. Surgical lumbar fusion done in [place]. 2. Inguinal hernia repair. 3. Cholecystectomy. 4. section times three. HOME MEDICATIONS: - Tylenol as needed - vitamin D - gabapentin 300 mg twice a day - hydroxyzine 25 mg nightly - Lidoderm patch - omeprazole 20 mg daily ALLERGIES: PENICILLIN - rash, SULFA - rash, TRIMETHOPRIM - rash, TRAMADOL - itching. SOCIAL HISTORY: The patient resides in [place]. . Has three kids. Unemployed. One pack-a-day smoker. History of illicit drug use, including benzodiazepines, tamy, marijuana, and heroin. History of unprofessional tattoo procedures. PHYSICAL EXAM: Vital Signs: Temperature 98.9, heart rate 99, respiratory rate 20, blood pressure 159/102, saturating 100% on room air. General: Appears well, sitting up in bed, in no acute distress. HEENT: Normocephalic, atraumatic. Sclerae anicteric. Moist mucous membranes. Neck: Supple. No lymphadenopathy. Lungs: Clear to auscultation bilaterally. No wheezing, rhonchi or rales. Heart: Regular rate and rhythm. No murmurs, rub, or gallops appreciated. Abdomen: Soft, nontender, nondistended. Bowel sounds present. Skin: Superficial abrasions concerning for skin picking. Small petechiae on bilateral shins. Neurologic: Alert and oriented. No focal deficits appreciated. Extremities: No edema. Pulses 2+ in posterior tibial and radial arteries. LABORATORY DATA: White blood cells 11.4, hemoglobin 9.5, hematocrit 29.5, platelet count 399. Sodium 139, potassium 3.9, chloride 106, carbon dioxide 23, BUN 8, creatinine 1.01, glucose 75, bilirubin 0.6, AST 19, ALT 16, alkaline phosphatase 356, total protein 7.1, albumin 2.6. Urinalysis shows 3+ blood. Serology: MRSA screen negative. One blood culture is pending. IMAGING: Lumbar spine CT shows mild disc space narrowing L3-L4 with ill-defined inferior endplate of L3 and subchondral lucency of the inferior aspect of L3 vertebral body. The findings are concerning for discitis and L3 osteomyelitis. Recommend further evaluation with MRI with and without contrast. IMPRESSION/PLAN: Worsening low back pain with imaging findings concerning for discitis and osteomyelitis. Methicillin-resistant Staphylococcus aureus (MRSA) infection cannot be excluded considering her recent MRSA endocarditis and bacteremia in March. Continue with daptomycin. MRI without followed by with contrast ordered for tomorrow. Echocardiogram ordered for tomorrow. Repeat blood cultures tomorrow. A peripherally inserted central catheter (PICC) line was placed today because she had poor peripheral access.
[2019-06-26] MEDS ORDERED: PROHANCE 279.3MG/ML 5ML VIAL (A9576) As Ordered ONE (19:04)
--- NOTE | 2019-06-26 19:45 | REP ---
Procedure: PICC line insertion with Stacey The procedure was performed under the direct supervision of Dr. Ramirez. The risks and benefits of the procedure were explained to the patient and informed consent was obtained. The right basilic vein was localized using ultrasound guidance. The skin was prepped and draped in a sterile fashion. 1% lidocaine was used as a local anesthetic. Using ultrasound guidance the basilic vein was cannulated and a 0.018 guidewire was inserted and advanced to the SVC using fluoroscopic guidance. The needle was removed and a 4.5 Slovenian dilator and peel-away sheath was inserted over the guide wire. A 4.5 Slovenian single lumen catheter was cut to length of 35 cm. The dilator was removed and the catheter was inserted over the guide wire with the tip ending in the SVC. The peel-away sheath was removed and the catheter was flushed with heparinized saline as per Hospital protocol. The catheter was affixed to the skin and a sterile dressing was applied. The patient tolerated the procedure well and there were no immediate complications. 0.2 minutes of fluoro time was utilized for this procedure. Electronically Signed by ALEXYS Shetty 06/26/2019 03:56 P Electronically Signed by Josué Ramirez MD 06/26/2019 07:36 P
--- NOTE | 2019-06-26 20:04 | REPVR ---
PROCEDURE INFORMATION: Exam: MR Lumbar Spine Without and With Contrast. Exam date and time: 06/26/2019 7:31 PM Age: 48 years old Clinical indication: Pain and condition or disease; Staph aureus bacteremia; Low back pain; Prior surgery; Surgery date: 6+ months; Surgery type: Fusion; Additional info: Discitis/osteomyelitis TECHNIQUE: Imaging protocol: Multiplanar magnetic resonance images of the lumbar spine without and with intravenous contrast. Contrast material: PROHANCE; Contrast volume: 10 ml; Contrast route: IV; COMPARISON: CT Spine, lumbar w/o contrast 06/26/2019 2:04 PM FINDINGS: Limitations: Motion artifact degrades the image quality of several sequences obtained. Vertebrae: There is a lumbosacral transitional vertebra, and there is broadening of the left transverse process of the lumbosacral transitional vertebra that will be designated as L5 above the last well-defined intervertebral disc, which is fused to the left side of the sacrum (Castellvi type IIIa lumbosacral transitional vertebra) and this stabilizes the level below the lumbosacral transitional vertebra and leads to the propensity for increased mobility and degenerative disc disease at the level above the lumbosacral transitional vertebra (Bertolotti's syndrome). T12 is designated as the last vertebral body that has rudimentary ribs. The alignment of the lumbar spine is within normal limits. No fracture or subluxation is noted. The vertebral body heights are preserved. Marrow: There is abnormally increased T2 signal and enhancement of the L3 and L4 vertebral bodies and to a lesser extent involving the anterior aspect of the inferior endplate of L2 and anterior aspect of the superior endplate of L3. Spinal epidural space: There is a 7 mm x 2 mm x 19 mm rim enhancing right anterior epidural fluid collection at the L3 level, which is compatible with an epidural abscess (image 7 of the sagittal T1 postcontrast series 1101 and image 21 of the axial T1 post contrast series 1201). An anterior epidural phlegmon is also present from the superior aspect of L3 to the inferior aspect of L4. Spinal cord: The conus medullaris is normal and terminates at the T12-L1 level. T10-T11: Axial imaging was not performed at this level. The disc height is preserved. No disc herniation is noted. No spinal canal stenosis, lateral recess stenosis, or neural foraminal stenosis is noted. The facet joints are unremarkable. There are endplate spurs projecting anteriorly. T11-T12: Axial imaging was not performed at this level. The disc height is preserved. No disc herniation is noted. No spinal canal stenosis, lateral recess stenosis, or neural foraminal stenosis is noted. The facet joints are unremarkable. T12-L1: Axial imaging was not performed at this level. The disc height is preserved. No disc herniation is noted. No spinal canal stenosis, lateral recess stenosis, or neural foraminal stenosis is noted. The facet joints are unremarkable. L1-L2: The disc height is preserved. No disc herniation is noted. No spinal canal stenosis, lateral recess stenosis, or neural foraminal stenosis is noted. The facet joints are unremarkable. L2-L3: The disc height is preserved. There is abnormal enhancement of the anterior aspect of the intervertebral disc. No disc herniation is noted. No spinal canal stenosis, lateral recess stenosis, or neural foraminal stenosis is noted. The facet joints are unremarkable. L3-L4: There is mild loss of disc height, increased T2 signal within the intervertebral disc, abnormal enhancement of the anterior aspect of the disc space, increased T2 signal and enhancement of the endplates and vertebral bodies, prevertebral and paravertebral inflammatory changes, an anterior epidural phlegmon, and an right anterior epidural abscess. No disc herniation is noted. No spinal canal stenosis, lateral recess stenosis, or neural foraminal stenosis is noted. The facet joints are unremarkable. L4-L5: Postoperative changes are noted from a solid posterior lumbar interbody fusion, bilateral laminectomy, and left facetectomy, and the bilateral vertical posterior rods and transpedicular screws appear appropriately positioned. There is an interbody fusion device containing bone graft material in the center of the disc space, with evidence for a solid interbody fusion. No spinal canal stenosis, lateral recess stenosis, or neural foraminal stenosis is noted. L5-S1: The disc height is preserved. No disc herniation is noted. No spinal canal stenosis, lateral recess stenosis, or neural foraminal stenosis is noted. There is mild osteoarthritis of the left facet joint. Limited kidneys: There is a 2.8 cm benign-appearing simple cyst arising from the midpole of the right kidney. The kidneys were not fully imaged. Soft tissues: There is abnormally increased T2 signal and enhancement in the prevertebral and paravertebral soft tissues including the bilateral psoas muscles extending from the L2 level to the L5 level, which is inflammatory in nature. No abscess is noted in the paraspinal soft tissues. There is scarring and edema in the subcutaneous tissues posteriorly along the midline of the lumbar spine. IMPRESSION: Discovertebral osteomyelitis at the L3-L4 level and to a lesser extent at the L2-L3 level, with a 7 mm x 2 mm x 19 mm right anterior epidural abscess at the L3 level, anterior epidural inflammatory changes extending from the superior aspect of L3 to the inferior aspect of L4, and prevertebral and paravertebral inflammatory changes extending into the bilateral psoas muscles from the L2 level to the L5 level. Electronically signed by: Raul Triana On 06/26/2019 20:04:08 PM
--- NOTE | 2019-06-26 20:43 | IPNPDOC ---
Date Seen The patient was seen on 06/26/19. Progress Note I was called by nursing at 2024 for MRI spine results. Which showed the patient had a Discovertebral osteomyelitis at the L3-L4 level and 7 mm x 2 mm x 19 mm right anterior epidural abscess at the L3 level. The patient had no neuro changes. Dr. Jose, was called to see if the patient needed to be transfer, for she was consulted earlier this morning. Advice to place on neurocheck and discuss imaging and case with Dr. David, in the morning. Continue antibiotics as proscribed. CIELO MCINTOSH DO Jun 26, 2019 20:43
[2019-06-26] MEDS ORDERED: hydrOXYzine 25 MG TAB PO SCH (21:15)
[2019-06-26 22:00] VITALS: BP 152/92
[2019-06-26] MEDS: IBUPROFEN 600 MG TAB PO PRN (22:43)
[2019-06-27] MEDS: ACETAMINOPHEN TAB 650MG DOSE (2X325MG) PO PRN (03:44)
[2019-06-27] MEDS: SODIUM CHLORIDE 0.9% INJ 10 ML SYR IV SCH (05:47)
[2019-06-27 06:00] VITALS: BP 138/84
[2019-06-27 06:42] LABS: HEMATOCRIT 29.8 % (36.0-47.0); HEMOGLOBIN 9.7 g/dl (12.0-15.5); MEAN CORPUSCULAR HGB CONC 32.6 g/dl (32.0-36.5); MEAN CORPUSCULAR VOLUME 79.9 fl (80.0-96.0); PLATELET COUNT, AUTOMATED 416 10^3/uL (150-450); RED BLOOD COUNT 3.73 10^6/uL (4.00-5.40); WHITE BLOOD COUNT 12.2 10^3/uL (4.0-10.0)
[2019-06-27 07:08] LABS: ALBUMIN 2.5 GM/DL (3.2-5.2); ALT/SGPT 16 U/L (12-78); BILIRUBIN,TOTAL 0.6 MG/DL (0.2-1.0); BLOOD UREA NITROGEN 6 MG/DL (7-18); CALCIUM LEVEL 8.8 MG/DL (8.5-10.1); CARBON DIOXIDE LEVEL 24 MEQ/L (21-32); CHLORIDE LEVEL 107 MEQ/L (98-107); CREATININE FOR GFR 1.04 MG/DL (0.55-1.30); GLOMERULAR FILTRATION RATE > 60.0 (>58); GLUCOSE, FASTING 89 MG/DL (70-100); MAGNESIUM LEVEL 1.9 MG/DL (1.8-2.4); POTASSIUM SERUM 3.6 MEQ/L (3.5-5.1); SODIUM LEVEL 139 MEQ/L (136-145); TOTAL PROTEIN 7.1 GM/DL (6.4-8.2)
[2019-06-27] MEDS: IBUPROFEN 600 MG TAB PO PRN (08:29)
[2019-06-27] MEDS: ENOXAPARIN 40MG/0.4ML SYRINGE (J1650 PER 10MG) SC SCH (08:29)
[2019-06-27] MEDS: DOCUSATE SODIUM 100 MG CAP PO SCH (08:30)
[2019-06-27] MEDS ORDERED: SENNA 8.6 MG TAB (SENOKOT) PO PRN (08:45)
[2019-06-27] MEDS ORDERED: OMEPRAZOLE 20 MG CAP PO SCH (09:00)
[2019-06-27] MEDS ORDERED: GABAPENTIN 300 MG CAP PO SCH (09:00)
[2019-06-27] MEDS ORDERED: SERO1TAB PO (10:14)
[2019-06-27] MEDS ORDERED: GABA-843 PO (10:14)
[2019-06-27] MEDS ORDERED: FERR1TAB8 PO (10:14)
[2019-06-27] MEDS ORDERED: LIDO5DIS41 TOP (10:14)
[2019-06-27] MEDS ORDERED: OMEP-221 PO (10:14)
[2019-06-27] MEDS ORDERED: VENL150C43 PO (10:19)
[2019-06-27] MEDS ORDERED: RISP2TAB3 PO (10:19)
[2019-06-27] MEDS ORDERED: PERCOCET 5MG/325MG TAB PO PRN ×2 (10:30)
[2019-06-27] MEDS ORDERED: PATIENT COMMENT (12:04)
[2019-06-27] MEDS ORDERED: PERCOCET PO (12:46)
[2019-06-27] MEDS ORDERED: LOVE1INJ SC (12:46)
--- NOTE | 2019-06-27 13:02 | DS.PDOC ---
Discharge Summary General Date of Admission Jun 26, 2019 at 10:49 Date of Discharge 06/27/19 Attending Physician: Carey Lynne MD Specialist/Consultants Involve: Betty Jose MD Discharge Summary PMH: Ms. Doty is a 48-year-old female with a history of intravenous (IV) drug use (last use 2 mo ago) and recent bacteremia with methicillin-resistant Staphyl ococcus aureus (MRSA), who was directly admitted to the hospital after two blood cultures, which were drawn in the emergency room on 06/24/2019, grew Staphylococcus aureus. She was discharged from the hospital on 04/15/2019 after being admitted for MRSA endocarditis. She later completed a course of abx for this. She was subsequently readmitted on 05/27/2019 with vasculitis, which was later diagnosed as Henoch-Schonlein purpura, treated with Solu-Medrol. Since discharge, the patient reported worsening back pain. She states this is in her low back and radiates down her left leg. She denied numbness or tingling in her legs. She does have a history of chronic back pain; however, this pain is much more severe and acute in nature this hospital admission. She states she has fallen multiple times due to her back giving out. She presented to the emergency room on two occasions due to the pain, once on 06/21/2019 and 06/24/2019. Hospital Course: Nurses were made aware that blood cultures collected on 05/24/19 were + for MRSA bacteremia. Infectious disease was consulted who was concerned for discitis and osteomyelitis. MRI without followed by with contrast showed: Discovertebral osteomyelitis at the L3-L4 level and to a lesser extent at the L2-L3 level, with a 7 mm x 2 mm x 19 mm right anterior epidural abscess at the L3 level, anterior epidural inflammatory changes extending from the superior aspect of L3 to the inferior aspect of L4, and prevertebral and paravertebral inflammatory changes extending into the bilateral psoas muscles from the L2 level to the L5 level.Echocardiogram ordered for tomorrow. Repeat blood cultureswere drawn but are pending A peripherally inserted central catheter (PICC) line was placed today because she had poor peripheral access. Patient had echocardiogram done, results pending from 06/26. Patient has history of lower back surgery, done by Dr Ed Minor in 2012 with elizabeth placement. Case discussed with Infectious disease, IR and orthopedic surgery who are recommending transfer for drainage of epidural abscess, in need of spinal surgeon input which we do not have. Patient will be transferred to [facility] under care of Dr. Lira, hospitalist. Patient denies fevers, chills, n/v, loss of bowel or bladder control, numbness or tingling in the lower ext/groin. ROS: Constitutional: Denies: Chills, Fever, Malaise, Night Sweats, Weakness, Fa tigue, Weight Loss, Lethargy, Other Eyes: Denies: Pain, Vision change, Conjunctivae inflammation, Eyelid inflammation, Redness, Other ENT: Denies: Head Aches, Ear Pain, Dysphagia, Sinus Congestion, Post Nasal Drip, Sore Throat, Epistaxis, Other Symptoms Skin: Denies: Rash, Lesions, Jaundice, Bruising, Itching, Dry, Breakdown, Nail Changes, Other Pulmonary: Denies: Dyspnea, Cough, Pleuritic Chest Pain, Other Symptoms Cardiovascular: Denies: Chest Pain, Palpitations, Orthopnea, Paroxysmal Noc. Dyspnea, Edema, Lt Headedness, Other Symptoms Gastrointestinal: Denies: Nausea, Vomiting, Abdominal Pain, Diarrhea, Constipation, Melena, Hematochezia, Other Symptoms Genitourinary: Denies: Dysuria, Frequency, Incontinence, Hematuria, Retention, Other Symptoms Hematologic: Denies: Bruising, Bleeding Excessively, Petecchia, Purpura, Enlarged Lymph Nodes, Other Hematologic Endocrine: Denies: Polydipsia, Polyphagia, Polyuria, Heat Intolerance, Cold Intolerance, Other Endocrine Sx Musculoskeletal: Denies: Neck Pain, Shoulder Pain, Arm Pain, Hand Pain, Leg Pain, Foot Pain, Joint Pain, Muscle Pain, Spasms, Other Symptoms Neurological: Denies: Weakness, Numbness, Incoordination, Change in speech, Confusion, Seizures, Other Symptoms Psych: Denies: Mood Normal, Anxiety, Depression, Memory Issues, Thoughts of Self Harm, Anger, Thoughts of Harming Other, Other Psych PAST MEDICAL HISTORY: 1. Chronic neck and back pain. 2. Degenerative disc disease. 3. Spinal stenosis. 4. Fibromyalgia. 5. Depression/anxiety. 6. Substance abuse, patient at [facility] methadone clinic. 7. IV drug abuse. 8. Hepatitis C. 9. Rheumatoid arthritis. 10. Hx of MRSA 11. Hx of endocarditis, completed treatment 2020 PAST SURGICAL HISTORY: 1. Surgical lumbar fusion done in [place]. 2. Inguinal hernia repair. 3. Cholecystectomy. 4. section times three. Family History History of alcoholism in the family, younger brother of alcohol abuse Social History The patient resides in [place]. . Has three kids. Unemployed. One pack-a-day smoker. History of illicit drug use, including benzodiazepines, tamy, marijuana, and heroin. History of unprofessional tattoo procedures. Vital signs: See below PHYSICAL EXAMINATION: CONSTITUTIONAL: No acute distress, resting comfortably, AAO x 3 EYES: PERRLA, EOM intact HENT, MOUTH: Normocephalic, atraumatic, moist mucous membranes, NECK: SUPPLE, no JVD, no lymphadenopathy, no carotid bruit CV: Regular rate and rhythm, S1S2 normal, no murmurs/rubs/gallops RESPIRATORY: Clear to auscultation bilaterally, no rales/rhonchi/wheezes GI: BS positive in 4 quadrants, soft, nontender, nondistended, no rebound or guarding, no organomegaly : Deferred MUSCULOSKELETAL: Pain to palpation of lower back, lumbar area. Normal ROM. No cyanosis, clubbing, swelling, joint deformity, extremity edema INTEGUMENTARY: Intact, no rashes, no lesions, no erythema NEUROLOGIC: Cranial Nerves II-XII are intact, no focal deficits PSYCHIATRIC: Mood and affect are normal LABORATORY DATA: Please see below CURRENT MEDICATIONS: SEE BELOW IMAGING: MRI lumbar spine: Discovertebral osteomyelitis at the L3-L4 level and to a lesser extent at the L2-L3 level, with a 7 mm x 2 mm x 19 mm right anterior epidural abscess at the L3 level, anterior epidural inflammatory changes extending from the superior aspect of L3 to the inferior aspect of L4, and prevertebral and paravertebral inflammatory changes extending into the bilateral psoas muscles from the L2 level to the L5 level. ASSESSMENT: 48 y/o F with MRSA bacteremia with new diagnosis of discovertebral osteomyelitis at L3-L4 and epidural abscess, r/o endocarditis. 1. MRSA bacteremia. Hx of endocarditis, MRSA bacteremia in past. R/o current endocarditis F/u echocardiogram done today, results pending + blood cultures from 06/24/19, MRSA sensitive to daptomycin Repeat blood cultures pending. Daptomycin started on 06/26/19 ID seen while here. 2. Discovertebral osteomyelitis On daptomycin, PICC placed New diagnosis 3. Epidural abscess As per IR, needing to be drained C/w current treatment for now. 4. Chronic back pain, likely due to osteomyelitis and prior back issues. Percocet PRN Tx for osteo above. 5. Hx of IV drug abuse Last use 2 months ago, no signs of withdrawl. 6. Anxiety. Stable. 7. DVT px. Enoxaparin. DISPOSITION: Transferring to [facility], Dr. Lira. TIME SPENT ON DISCHARGE: Greater than 30 minutes. Vital Signs/I&Os Vital Signs Date Time Temp Pulse Resp B/P (MAP) Pulse Ox O2 Delivery O2 Flow Rate FiO2 06/27/19 11:21 18 06/27/19 06:00 98.9 93 138/84 (102) 96 Room Air l I&O- Last 24 Hours up to 6 AM 06/27/19 06:00 Intake Total 710 ml Output Total 1000 ml Balance -290 ml Laboratory Data Labs 24H Laboratory Tests 2 06/26/19 13:32: Urine Color YELLOW, Urine Appearance CLEAR, Urine pH 6.0, Urine Specific [place] 1.010, Urine Protein NEGATIVE, Urine Glucose (UA) NEGATIVE, Urine Ketones NEGATIVE, Urine Blood 3+H, Urine Nitrite NEGATIVE, Urine Bilirubin NEGATIVE, Urine Urobilinogen 0.2, Urine Leukocyte Esterase NEGATIVE, Urine WBC (Auto) 2, Urine RBC (Auto) TNTCH, Urine Hyaline Casts (Auto) 0, Urine Bacteria (Auto) NEGATIVE, Urine Squamous Epithelial Cells 1, Urine Mucus (Auto) SMALL, Urine Sperm (Auto) , Methicillin-Resist S.aureus DNA PCR NOT DETECTED 06/26/19 17:00: Bedside Glucose (Misc Panel) 110H 06/27/19 06:22: Nucleated Red Blood Cells % (auto) 0.0, Anion Gap 8, Glomerular Filtration Rate > 60.0, Calcium Level 8.8, Magnesium Level 1.9, Total Bilirubin 0.6, Aspartate Amino Transf (AST/SGOT) 21, Alanine Aminotransferase (ALT/SGPT) 16, Alkaline Phosphatase 319H, Total Protein 7.1, Albumin 2.5L, Albumin/Globulin Ratio 0.54L CBC/BMP Laboratory Tests 06/27/19 06:22 FSBS Laboratory Tests Test 06/26/19 17:00 Range/Units Bedside Glucose (Misc Panel) 110 70-105 MG/DL Microbiology Microbiology 06/27/19 Blood Culture, Received Pending 06/26/19 Blood Culture - Preliminary, Resulted No growth after 24 hours . All specim... Discharge Medications Scheduled Enoxaparin Sodium (Lovenox) 40 Mg/0.4 Ml Syringe, 40 MG SC DAILY Ergocalciferol (Vitamin D2) (Vitamin D2) 50,000 Units Cap, 50,000 UNITS PO 1XWK, (Reported) Ferrous Sulfate (Ferrous Sulfate) 325 Mg Tablet, 325 MG PO DAILY, (Reported) Gabapentin (Gabapentin) 300 Mg Capsule, 300 MG PO BID, (Reported) Omeprazole (Omeprazole) 40 Mg Capsule.dr, 40 MG PO DAILY, (Reported) Quetiapine Fumarate (Seroquel) 100 Mg Tablet, 100 MG PO QHS, (Reported) Risperidone (Risperidone) 2 Mg Tablet, 1 MG PO BID, (Reported) HAS NOT STARTED YET Venlafaxine HCl (Venlafaxine HCl ER) 150 Mg Cap.er.24h, 150 MG PO DAILY, (Repo rted) Scheduled PRN Acetaminophen (Acetaminophen 8 Hour) 650 Mg Tablet.er, 650 MG PO TID PRN for PAIN, (Reported) Hydroxyzine HCl (Hydroxyzine HCl) 25 Mg Tablet, 25 MG PO QHS PRN for ANXIETY, (Reported) Lidocaine (Lidoderm) 5% Adh..patch, 1 PATCH TOP DAILY PRN for PAIN, (Reported) APPLY TO BACK Oxycodone/Acetaminophen (Oxycodone-Acetaminophen 5-325) 1 Each Tablet, 1 TAB PO Q6HP PRN for MILD/MODERATE PAIN (PS 1-7) Sennosides/Docusate Sodium (Senna Plus Tablet) 1 Each Tablet, 1 TAB PO BID PRN for CONSTIPATION, (Reported) Miscellaneous Medications [Patient Comment] , (Reported) PATIENT'S NAME AT UT IS MYLES BELLAMY. Allergies Coded Allergies: vancomycin (Verified Allergy, Severe, 05/26/19) Penicillins (Verified Allergy, Intermediate, RASH, 07/08/18) Sulfa (Sulfonamide Antibiotics) (Verified Allergy, Intermediate, RASH, 07/08/18) trimethoprim (Verified Allergy, Intermediate, RASH, 07/08/18) tramadol (Verified Adverse Reaction, Intermediate, ITCHING, URINARY RETENTION, 07/08/18) Carey Lynne MD Jun 27, 2019 13:01
--- NOTE | 2019-06-27 19:59 | CR ---
DATE OF CONSULTATION: 06/27/2019 CHIEF COMPLAINT: Low back pain. The patient has a complex past medical history, 48-year-old female with a past history of intravenous (IV) drug abuse, recent bacteremia, methicillin-resistant Staphylococcus aureus (MRSA) positive, who was directly admitted to the hospital after two positive blood cultures were taken on 06/24/2019. Patient had recently been discharged from the hospital in April after being admitted for MRSA endocarditis. She states that she had 10/10 low back pain. States that it is worse with ambulation, improved with rest and pain medication. Denies any bowel or bladder incontinence or saddle anesthesia. She denies any new trauma, any fevers, chills, nausea, or vomiting, any troubles with balance or coordination. REVIEW OF SYSTEMS: A complete 10-system review was conducted. Pertinent positives and negatives in the history of the present illness, other systems negative. PAST MEDICAL HISTORY: Patient has chronic neck and back pain, degenerative, disc disease, spinal stenosis, fibromyalgia, depression, anxiety, substance abuse. The patient is a [facility] methadone patient. IV drug abuse, hepatitis C. Rheumatoid arthritis. SURGICAL HISTORY: Spinal lumbar fusion done by Dr. Minor in [place]. Inguinal hernia repair. Cholecystectomy. section times three. HOME MEDICATIONS: - Tylenol - gabapentin - hydroxyzine - Lidoderm patch - omeprazole ALLERGIES: PENICILLIN - rash, SULFA - rash, TRIMETHOPRIM - rash, TRAMADOL - itching. SOCIAL HISTORY: Patient resides in [place], is with three kids. Unemployed. Iyfp-znu-s-half-a-day smoker. History of illicit drug use, including benzodiazepines, (benzos), tamy, marijuana and heroin, and a history of unprofessional tattoo. PHYSICAL EXAM: Patient's most recent vital signs are temperature of 98.9, heart rate of 93 beats per minute, respiratory rate is 17, blood pressure 138/84 and oxygen saturation 96% on room air. Patient is awake, alert, oriented, well-dressed, appropriate affect, breathing on room air. Normocephalic, atraumatic. Bilateral Upper Extremities: No tenderness to palpation. Full range of motion of shoulders, elbows and wrists. Positive anterior interosseous nerve (AIN), posterior interosseous nerve (PIN), and ulnar motor function. Sensation intact to light touch superficial sensory branch of radial nerve, medial nerve, ulnar nerve. Skin intact. Radial pulses 2+, regular rate. Bilateral Lower Extremities/Spine Exam: L2-S1, 5/5 motor, sensation intact light touch, L2-S1, 2/2, negative clonus bilaterally. Reflexes are 2+ and symmetric bilaterally. Skin intact. Posterior tibial pulses 2+, regular rate. Imaging was reviewed. CT scan of lumbar spine demonstrates previous hardware L4-5, evidence of fusion and decompression along with mild disc space narrowing at L3-4. MRI reviewed, with and without contrast, demonstrating anterior epidural abscess along the posterior aspect of L3 vertebral body that is moderately compressive. DIAGNOSIS: Epidural abscess. I discussed with the patient and with the medicine team that at this point, the patient has no neurologic compromise. Therefore, I think it is reasonable to pursue nonoperative treatment in the form of intravenous (IV) antibiotics with possible IR aspiration of the abscess to help with symptoms. However, after discussion with medicine, they decided they would prefer to transfer the patient to [place], which is reasonable. The patient has been under previous care of Dr. Minor, so it is reasonable to contact neurosurgery, and they may call with any future questions or concerns.
--- NOTE | 2019-06-27 20:53 | ECHO ---
DATE OF PROCEDURE: 06/27/2019 Date of : 1970 Age: 48 Gender: Female Height: 58 inches Weight: 116 pounds Body surface area: 1.45 meters squared Inpatient: [address] [place] [address], room 4225 REFERRING PHYSICIAN: Judy Duran INDICATION: Sepsis - known methicillin-resistant Staphylococcus aureus (MRSA) endocarditis. MEASUREMENTS: 2D Measurements: RV: 2.5 cm LV: 3.9 cm Septum: 1.0 cm Posterior wall: 1.0 cm Aortic root: 3.4 cm LA: 3.3 cm LVEF: 65% Doppler Measurements: AV: 1.18 meters per second LVOT: 1.1 meters per second LVOT diameter: 1.7 cm MV-E: 89, A: 124, EA ratio: 0.7 Early mitral deceleration time: 111 milliseconds E prime medial: 6.1, A prime medial: 11.7, E prime lateral: 7.8. Average E/E prime ratio: 12.8/pulmonary capillary wedge pressure: 17.8 mmHg. PV: 0.8 meters per second Pulmonary artery acceleration time: 92 milliseconds RVSP: 38 mmHg IVC: 1.27 cm COMMENTS: Normal sinus rhythm without intraventricular conduction disturbance. M-mode and two-dimensional echocardiography was performed with pulsed, continuous wave, color flow and tissue Doppler studies. Normal left ventricular size, wall thickness and wall motion. Normal left atrial size with grade 1 LV diastolic dysfunction and current estimated mean left atrial pressure upper limits of normal to slightly increased. Normal right heart chamber sizes and motion with Doppler evidence of mild pulmonary hypertension. Normal inferior vena cava (IVC) size and collapse against an elevated central venous pressure. Normal aortic diameters. Slightly thickened aortic valve with adequate cusp separation and very mild aortic insufficiency. Slight thickening of the mitral leaflet edges with adequate leaflet excursion and very mild mitral insufficiency. Could not rule out mitral vegetation with certainty. Visible tricuspid valve vegetation associated with the septal leaflet with adequate leaflet excursion and moderate tricuspid insufficiency. No pericardial effusion. Findings consistent with known MRSA endocarditis with seeming involvement of her tricuspid, mitral and possibly aortic valves. Comparing today's study with April 15, 2019, cardiac chamber sizes, estimated pulmonary arterial and central venous pressures, and mitral, aortic and tricuspid insufficiency appear similar but vegetations do appear more evident. Largest associated with the septal leaflet of the tricuspid valve measuring perhaps 1 cm x 0.4 cm. MTDD
== END 2019-06-27 13:40 | disposition home or self-care (01) | DRG 344 ==
LOC: M MSPAV 10:49
PROVIDERS: ADMIT Internal Medicine; ATTEND Internal Medicine
DX: M46.26 Osteomyelitis of vertebra, lumbar region (principal); G06.1 Intraspinal abscess and granuloma; R78.81 Bacteremia; F41.9 Anxiety disorder, unspecified; Z79.899 Other long term (current) drug therapy; Z88.0 Allergy status to penicillin; Z88.2 Allergy status to sulfonamides; Z88.8 Allergy status to other drugs, medicaments and biological substances; B95.61 Methicillin susceptible Staphylococcus aureus infection as the cause of diseases classified elsewhere; F32.9 Major depressive disorder, single episode, unspecified; M79.7 Fibromyalgia; B18.2 Chronic viral hepatitis C; M06.9 Rheumatoid arthritis, unspecified; F17.200 Nicotine dependence, unspecified, uncomplicated

== ENCOUNTER → 2019-07-18 | Outpatient (CLI) | payer OTHER ==
[~2019-07-18] MED LIST changes: +FERR1TAB8 PO; +LIDO5DIS41 TOP; +LIDOCAINE 1% MDV 20ML VIAL As Ordered ONE; +LORazepam 0.5 MG TAB As Ordered ONE; +LORazepam 2 MG/ML VIAL (J2060) SL ONE; +LOVE1INJ SC; +OMEP-221 PO; +PATIENT COMMENT; +PERCOCET PO; +RISP2TAB3 PO; +SERO1TAB PO; +VENL150C43 PO
[2019-07-18 12:30] VITALS: BP 118/68
--- NOTE | 2019-07-18 20:17 | REP ---
Procedure: PICC line insertion with Stacey The procedure was performed under the direct supervision of Dr. Ramirez. The risks and benefits of the procedure were explained to the patient and informed consent was obtained. The left brachial vein was localized using ultrasound guidance. The skin was prepped and draped in a sterile fashion. 2% lidocaine was used as a local anesthetic. Using ultrasound guidance the brachial vein was cannulated and a 0.018 guidewire was inserted and advanced to the SVC using fluoroscopic guidance. The needle was removed and a 5.5 Thai dilator and peel-away sheath was inserted over the guide wire. A 5.5 Thai dual lumen catheter was cut to length of 36 cm. The dilator was removed and the catheter was inserted over the guide wire with the tip ending in the SVC. The peel-away sheath was removed and the catheter was flushed with heparinized saline as per Hospital protocol. The catheter was affixed to the skin and a sterile dressing was applied. The patient tolerated the procedure well and there were no immediate complications. 0.3 minutes of fluoro time was utilized for this procedure. Electronically Signed by ALEXYS Shetty 07/18/2019 04:34 P Electronically Signed by Josué Ramirez MD 07/18/2019 08:08 P
== END ==
LOC: M IRPRO 09:58
PROVIDERS: ATTEND Internal Medicine Infectious Disease
DX: I30.9 Acute pericarditis, unspecified (principal); B95.62 Methicillin resistant Staphylococcus aureus infection as the cause of diseases classified elsewhere
CPT/HCPCS: 36573; C1751; J1642; J1644; J2060

== ENCOUNTER → 2019-08-22 | Outpatient (REF) | payer OTHER ==
[~2019-08-22] MED LIST changes: +ACET-683 PO; +AMLO25TA PO; +ASPI-161 PO; +ASPI81CH8 PO; +BUPR1SUB5 SL; +CEFD1CAP8 PO; -CLIN150C14 PO; +CLIN150C15 PO; +DICY10CA13 PO; +GABA-282 PO; -GABA-843 PO; +HYDR-3782 PO; +HYDR200T3 PO; +HYDR50TA70 PO; +IBUP1TAB5 PO; -IBUP40TA PO; +LEVO500T3 PO; -LIDOCAINE 1% MDV 20ML VIAL As Ordered ONE; -LORazepam 0.5 MG TAB As Ordered ONE; -LORazepam 2 MG/ML VIAL (J2060) SL ONE; +MIRT-60 PO; +MIRT-62 PO; +ONDA-83 PO; +POTA10TA17 PO; +PROM25TA12 PO; +QUET300T2 PO; +QUET50TA3 PO; -QUET5TAB PO; -REME15TA PO; -REME30TA PO; +RISP-8 PO; +RISP-9 PO; -RISP2TAB3 PO; +SENN-23 PO; +SENN1TAB96 PO; +SPIR1CAP INH; +SUBO8MIS SL; +VENTAER INH; +[UNRECOGNIZED DRUG - CODE] PO
== END ==
LOC: M SFHCPLAZ 11:32
PROVIDERS: ATTEND Internal Medicine Infectious Disease
DX: G06.1 Intraspinal abscess and granuloma (principal)

== ENCOUNTER → 2019-08-24 | Outpatient (CLI) | payer OTHER ==
[2019-08-24 13:52] LABS: BASO % 0.4 % (0.0-1.0); EOS # 0.4 10^3/uL (0.0-0.5); HEMATOCRIT 36.3 % (36.0-47.0); HEMOGLOBIN 11.5 g/dl (12.0-15.5); LYMPH # 2.5 10^3/uL (1.5-5.0); MEAN CORPUSCULAR HEMOGLOBIN 27.6 pg (27.0-33.0); MEAN CORPUSCULAR HGB CONC 31.7 g/dl (32.0-36.5); MEAN CORPUSCULAR VOLUME 87.3 fl (80.0-96.0); MONO # 0.5 10^3/uL (0.0-0.8); MONO % 5.4 % (0.0-5.0); NEUTROPHILS # 5.9 10^3/uL (1.5-8.5); NEUTROPHILS % 62.9 % (36.0-66.0); PLATELET COUNT, AUTOMATED 300 10^3/uL (150-450); RED BLOOD COUNT 4.16 10^6/uL (4.00-5.40); WHITE BLOOD COUNT 9.3 10^3/uL (4.0-10.0)
[2019-08-24 14:23] LABS: ALBUMIN 3.1 GM/DL (3.2-5.2); ALT/SGPT 14 U/L (12-78); BILIRUBIN,TOTAL 0.3 MG/DL (0.2-1.0); BLOOD UREA NITROGEN 25 MG/DL (7-18); C REACTIVE PROTEIN QUANTITATIV 1.39 MG/DL (0.00-0.30); CALCIUM LEVEL 8.7 MG/DL (8.5-10.1); CARBON DIOXIDE LEVEL 24 MEQ/L (21-32); CHLORIDE LEVEL 107 MEQ/L (98-107); CPK CREATINE PHOSPHOKINASE 30 U/L (26-192); CREATININE FOR GFR 0.83 MG/DL (0.55-1.30); GLOMERULAR FILTRATION RATE > 60.0 (>58); GLUCOSE, FASTING 94 MG/DL (70-100); POTASSIUM SERUM 4.4 MEQ/L (3.5-5.1); SODIUM LEVEL 135 MEQ/L (136-145); TOTAL PROTEIN 6.6 GM/DL (6.4-8.2)
[2019-08-24 14:30] LABS: ERYTHROCYTE SEDIMENTATION RATE 18 mm/hr (0-20)
== END ==
LOC: M LAB 13:21
PROVIDERS: ATTEND Internal Medicine Infectious Disease
DX: G06.1 Intraspinal abscess and granuloma (principal)

== ENCOUNTER → 2019-09-19 | Outpatient (CLI) | payer OTHER ==
[~2019-09-19] MED LIST changes: -ASPI-161 PO; -CEFD1CAP8 PO; +CLIN150C14 PO; -CLIN150C15 PO; -DICY10CA13 PO; -GABA-282 PO; +GABA-843 PO; -HYDR-3782 PO; -HYDR50TA70 PO; -IBUP1TAB5 PO; +IBUP40TA PO; -LEVO500T3 PO; -MIRT-60 PO; -MIRT-62 PO; -POTA10TA17 PO; -PROM25TA12 PO; -QUET300T2 PO; -QUET50TA3 PO; +QUET5TAB PO; +REME15TA PO; +REME30TA PO; -RISP-8 PO; -RISP-9 PO; +RISP1TAB3 PO; +RISP2TAB3 PO; -SENN-23 PO; -SENN1TAB96 PO; +SENN1TAB96 SL; -SPIR1CAP INH; -SUBO8MIS SL; -VENTAER INH; -[UNRECOGNIZED DRUG - CODE] PO
[2019-09-19 13:26] LABS: BASO % 0.5 % (0.0-1.0); EOS # 0.2 10^3/uL (0.0-0.5); EOS % 2.6 % (0.0-3.0); HEMATOCRIT 43.9 % (36.0-47.0); HEMOGLOBIN 14.2 g/dl (12.0-15.5); LYMPH # 2.4 10^3/uL (1.5-5.0); LYMPH % 27.5 % (24.0-44.0); MEAN CORPUSCULAR HEMOGLOBIN 28.2 pg (27.0-33.0); MEAN CORPUSCULAR HGB CONC 32.3 g/dl (32.0-36.5); MEAN CORPUSCULAR VOLUME 87.3 fl (80.0-96.0); MONO # 0.5 10^3/uL (0.0-0.8); MONO % 5.8 % (0.0-5.0); NEUTROPHILS # 5.4 10^3/uL (1.5-8.5); NEUTROPHILS % 63.1 % (36.0-66.0); PLATELET COUNT, AUTOMATED 298 10^3/uL (150-450); RED BLOOD COUNT 5.03 10^6/uL (4.00-5.40); WHITE BLOOD COUNT 8.6 10^3/uL (4.0-10.0)
[2019-09-19 13:49] LABS: ERYTHROCYTE SEDIMENTATION RATE 25 mm/hr (0-20)
[2019-09-19 13:53] LABS: ALBUMIN 3.4 GM/DL (3.2-5.2); ALT/SGPT 16 U/L (12-78); BILIRUBIN,TOTAL 0.2 MG/DL (0.2-1.0); BLOOD UREA NITROGEN 11 MG/DL (7-18); C REACTIVE PROTEIN QUANTITATIV 2.24 MG/DL (0.00-0.30); CALCIUM LEVEL 9.1 MG/DL (8.5-10.1); CARBON DIOXIDE LEVEL 25 MEQ/L (21-32); CHLORIDE LEVEL 106 MEQ/L (98-107); CREATININE FOR GFR 0.78 MG/DL (0.55-1.30); GLOMERULAR FILTRATION RATE > 60.0 (>58); GLUCOSE, FASTING 82 MG/DL (70-100); POTASSIUM SERUM 4.2 MEQ/L (3.5-5.1); SODIUM LEVEL 138 MEQ/L (136-145); TOTAL PROTEIN 7.2 GM/DL (6.4-8.2)
== END ==
LOC: M LAB 11:30
PROVIDERS: ATTEND Internal Medicine Infectious Disease
DX: G06.1 Intraspinal abscess and granuloma (principal)

== ENCOUNTER 2019-09-25 12:03 | Outpatient (CLI) | payer OTHER ==
[~2019-09-25] VITALS: Ht 147.3 cm; Wt 53.9 kg
[~2019-09-25 12:03] MED LIST changes: -ACET-683 PO; -AMLO25TA PO; -ASPI81CH8 PO; -BUPR1SUB5 SL; -HYDR200T3 PO; -ONDA-83 PO; -RISP1TAB3 PO; -SENN1TAB96 SL
[2019-09-25 12:05] VITALS: BP 88/52
[2019-09-25] MEDS ORDERED: DALBAVANCIN 1,500 MG in D5W 250 ML IV ONE (13:00)
[2019-09-25 14:00] VITALS: BP 86/51
[2019-09-25 15:20] VITALS: BP 88/58
== END 2019-09-25 15:20 | disposition home or self-care (01) ==
LOC: M INFU 12:03
PROVIDERS: ATTEND Internal Medicine Infectious Disease
DX: L02.212 Cutaneous abscess of back [any part, except buttock and flank] (principal); A49.02 Methicillin resistant Staphylococcus aureus infection, unspecified site
CPT/HCPCS: 96365; 96366; J0875

== ENCOUNTER 2019-10-09 12:00 | Inpatient (IN) | payer OTHER ==
[2019-10-09] MEDS ORDERED: DAPTOmycin 500 MG/10 ML VIAL (CUBICIN) (J0878) ONE (23:00)
[2019-10-10] MEDS ORDERED: risperiDONE 1 MG TAB As Ordered ONE (02:42)
[2019-10-10] MEDS ORDERED: hydrOXYzine 25 MG TAB As Ordered ONE (02:42)
[2019-10-10] MEDS ORDERED: QUEtiapine FUMARATE 50 MG TAB As Ordered ONE (02:43)
[2019-10-10] MEDS ORDERED: SILVER SULFADIAZINE 1% CR 50 GM JAR ONE (08:00)
[2019-10-10] MEDS ORDERED: MUPIROCIN 2% OINT 22 GM TUBE ONE (08:00)
[2019-10-10] MEDS ORDERED: BUPRENORPHINE/NALOXONE 8-2MG SUBLINGUAL TABLET(SUBOXONE) ONE ×2 (08:46→16:50)
[2019-10-10] MEDS ORDERED: FERROUS SULFATE 325MG TAB ONE ×2 (08:46→20:12)
[2019-10-10] MEDS ORDERED: VENLAFAXINE **XR** 75MG CAPSULE ONE (08:46)
[2019-10-10] MEDS ORDERED: hydrOXYzine 25 MG TAB ONE ×3 (08:46→20:12)
[2019-10-10] MEDS ORDERED: ENOXAPARIN 40MG/0.4ML SYRINGE (J1650 PER 10MG) ONE (08:46)
[2019-10-10] MEDS ORDERED: GABAPENTIN 300 MG CAP ONE ×3 (08:46→20:12)
[2019-10-10] MEDS ORDERED: risperiDONE 1 MG TAB ONE ×2 (08:46→20:12)
[2019-10-10] MEDS ORDERED: POTASSIUM CHLORIDE 10 MEQ SR TABLET ONE ×2 (13:41→16:51)
[2019-10-10] MEDS ORDERED: ACETAMINOPHEN TAB 650MG DOSE (2X325MG) ONE (20:12)
[2019-10-10] MEDS ORDERED: QUEtiapine FUMARATE 50 MG TAB ONE (20:12)
[2019-10-11] MEDS ORDERED: BUPRENORPHINE/NALOXONE 8-2MG SUBLINGUAL TABLET(SUBOXONE) As Ordered ONE ×2 (08:26→15:42)
[2019-10-11] MEDS ORDERED: FERROUS SULFATE 325MG TAB As Ordered ONE ×2 (08:26→22:04)
[2019-10-11] MEDS ORDERED: VENLAFAXINE **XR** 75MG CAPSULE As Ordered ONE (08:26)
[2019-10-11] MEDS ORDERED: traMADol 50 MG TAB As Ordered ONE ×2 (08:26→22:09)
[2019-10-11] MEDS ORDERED: GABAPENTIN 300 MG CAP As Ordered ONE ×3 (08:27→22:04)
[2019-10-11] MEDS ORDERED: hydrOXYzine 25 MG TAB As Ordered ONE ×3 (08:27→22:04)
[2019-10-11] MEDS ORDERED: risperiDONE 1 MG TAB As Ordered ONE ×2 (08:27→22:04)
[2019-10-11] MEDS ORDERED: ENOXAPARIN 40MG/0.4ML SYRINGE (J1650 PER 10MG) As Ordered ONE (08:27)
[2019-10-11] MEDS ORDERED: KETOROLAC 30 MG/ML 1ML VIAL As Ordered ONE (15:56)
[2019-10-11] MEDS ORDERED: SERTRALINE 100 MG TAB As Ordered ONE (22:04)
[2019-10-11] MEDS ORDERED: QUEtiapine FUMARATE 50 MG TAB As Ordered ONE (22:15)
[2019-10-12] MEDS ORDERED: hydrOXYzine 50 MG TAB As Ordered ONE (09:49)
[2019-10-12] MEDS ORDERED: FERROUS SULFATE 325MG TAB As Ordered ONE (09:49)
[2019-10-12] MEDS ORDERED: VENLAFAXINE **XR** 75MG CAPSULE As Ordered ONE (09:49)
[2019-10-12] MEDS ORDERED: ENOXAPARIN 40MG/0.4ML SYRINGE (J1650 PER 10MG) As Ordered ONE (09:50)
[2019-10-12] MEDS ORDERED: GABAPENTIN 300 MG CAP As Ordered ONE ×2 (09:50→15:40)
[2019-10-12] MEDS ORDERED: risperiDONE 1 MG TAB As Ordered ONE (09:50)
[2019-10-12] MEDS ORDERED: BUPRENORPHINE/NALOXONE 8-2MG SUBLINGUAL TABLET(SUBOXONE) As Ordered ONE ×2 (09:51→15:38)
[2019-10-12] MEDS ORDERED: SENNA 8.6 MG TAB (SENOKOT) As Ordered ONE (10:25)
[2019-10-12] MEDS ORDERED: KETOROLAC 30 MG/ML 1ML VIAL As Ordered ONE (10:56)
[2019-10-12] MEDS ORDERED: hydrOXYzine 25 MG TAB As Ordered ONE (15:40)
[2019-10-12] MEDS ORDERED: LevoFLOXacin 750 MG TABLET As Ordered ONE (15:48)
[2019-10-12] MEDS ORDERED: DAPTOmycin 500 MG/10 ML VIAL (CUBICIN) (J0878) ONE (16:00)
[2019-10-12] MEDS ORDERED: SILVER SULFADIAZINE 1% CR 50 GM JAR ONE (17:05)
--- NOTE | 2019-11-09 12:41 | CR ---
DATE OF CONSULTATION: 10/09/2019 CONSULTATION REPORT FOR: Carey Lynne MD REASON FOR CONSULTATION: Evaluation of right hand cellulitis with multiple ulcerations on both arms and legs. HISTORY OF PRESENT ILLNESS: Sujey is a 49-year-old female well known to me from multiple hospitalizations prior to this one, history of polysubstance abuse including IV Chantel. The patient had endocarditis earlier this year with methicillin-resistant Staphylococcus aureus (MRSA) along with sternoclavicular abscess. She was treated with 4 weeks of IV antibiotics for presumptive tricuspid valve endocarditis with septic emboli and MRSA. After she finished her antibiotics, she developed severe low back pain and had developed discitis with an epidural abscess of the lumbar spine in previous surgical site where she had hardware. [facility] was [facility] where she had incision and drainage (I and D) and treated with IV antibiotics along with rifampin. She was [facility] the jail in [place] and discharged home on by mouth doxycycline. Doxycycline gave her severe photosensitivity and therefore that was discontinued for the summer and she was given IV Dalvance every 2 weeks. Her first dose was on 09/25/2019 and her second dose was supposed to be 10/09/2019, but patient did not receive her dose today. A week ago, on the weekend of 09/30/2019 to 10/02/2019, patient started using again Chantel IV, she was injecting in both hands. She then developed itching and then developed multiple sores all over her body, especially on her arms and her knees and below the knees. She has a small area between her toes, although patient states she does not inject there. REVIEW OF SYSTEMS: She had no fever. She did have chills. She has chronic low back pain on and off but currently is better. She has multiple sores. She has some nausea, but no vomiting, no diarrhea, no abdominal pain. No dysuria or hematuria. She denies any cough or shortness of breath. PAST MEDICAL HISTORY: Sternoclavicular osteomyelitis with MRSA, presumptive tricuspid valve endocarditis and septic emboli to the lungs March of 2019, epidural abscess MRSA of the lumbar spine treated with IV antibiotics for 6 weeks and by mouth rifampin followed by doxycycline and currently on Dalvance, history of polysubstance abuse, prior IV heroin, currently IV Chantel, positive rheumatoid factor but on no medications felt to be related to hepatitis C, history of hepatitis C with spontaneous remission, tobacco abuse, hypertension. PAST SURGICAL HISTORY: section times three, cholecystectomy, back surgery times two, initial surgery was about 3 years ago followed by [facility] in August of 2019, neck surgery. SOCIAL HISTORY: She smokes a pack a day. She has three kids. She is . She is currently living in a hotel and was supposed to move to [place] in her own apartment. Denies alcohol use, but uses Chantel IV. She is on Suboxone for chronic back pain. FAMILY HISTORY: Mother alive, has bone disease. Father had coronary artery disease, CVA, at 69. ALLERGIES: SULFA and PENICILLIN. HOME MEDICATIONS: - Seroquel 100 mg by mouth nightly - Suboxone 8 mg by mouth in the morning, 4 mg at night, she receives through [facility] - risperidone 1 mg by mouth twice a day - metoprolol twice a day - ferrous sulfate 325 mg by mouth daily - Dalvance 1.5 grams IV every 2 weeks, first dose was given on 09/25/2019 and next dose was due on 10/09/2019 LABORATORY DATA: White count 10, hemoglobin 14.8, hematocrit 45.5, platelets 400, 75% neutrophils, 17% lymphocytes, 5% monocytes, ESR 20, sodium 139, potassium 5.2, chloride 105, bicarbonate 30, glucose 82, BUN 7, creatinine 1.03, calcium 9.1, CRP 8.21 with a normal less than 0.3. PHYSICAL EXAMINATION: Pleasant female in no acute distress. Heart: Normal S1, S2. No murmurs, rubs, or gallops appreciated. Lungs: Clear. No wheezes, rales, or rhonchi. Abdomen: Soft, nontender, no hepatosplenomegaly. Back: No CVA or lumbosacral tenderness. Midline scar well-healed with no lesions, no discharge. Extremities: No clubbing, cyanosis, or edema. No calf tenderness. Skin: Multiple lesions. Right hand is swollen with black eschar along the dorsal aspect of the hand. Multiple scabs measuring anywhere from 3-4 cm on both arms, some with mild purulent discharge. Both knees have two scabs as well that are mostly dry with black eschar. There is a scab between the 4th and 5th toe of the right foot. IMAGING STUDIES: Ultrasound showed edema of the right forearm and hand, no fluid collection demonstrated. Edema of the left forearm, no fluid collection. IMPRESSION: 49-year-old female with a history of IV drug abuse, mostly Chantel, who is admitted with cellulitis of both hands at injection site. She is known to have methicillin resistant Staphylococcus aureus (MRSA) with known previous history of presumed right-sided tricuspid endocarditis, septic emboli complicated by epidural abscess status post incision and drainage (I and D) currently on IV Dalvance every 2 weeks. The patient relapsed using IV Chantel, injecting both hands, developed cellulitis with black eschars and probably secondary superimposed infection from itching from Chantel side effect. Patient had a possible history of IV vancomycin allergy, although I am not sure if that was vasculitis or from vancomycin. At this point, I would recommend using IV daptomycin 500 mg daily. PLAN: Blood cultures times two sets have been ordered. Wound gram stain and culture has been done from her right hand and will be sent to the lab today. Daptomycin 500 mg IV daily has been ordered. Monitor complete blood count (CBC), C-reactive protein (CRP), creatine phosphokinase (CPK), erythrocyte sedimentation rate (ESR) tomorrow. Warm compressions have been ordered to apply on both hands for comfort and ibuprofen 600 mg by mouth every 8 hours as needed for pain. Thank you for consultation. VINCENT
[2019-11-12 02:58] LABS: ERYTHROCYTE SEDIMENTATION RATE 20 mm/hr (0-20)
[2019-11-12 03:26] LABS: BASO % 0.4 % (0.0-1.0); EOS # 0.1 10^3/uL (0.0-0.5); EOS % 1.3 % (0.0-3.0); HEMATOCRIT 45.5 % (36.0-47.0); HEMOGLOBIN 14.8 g/dl (12.0-15.5); LYMPH # 1.8 10^3/uL (1.5-5.0); LYMPH % 17.4 % (24.0-44.0); MEAN CORPUSCULAR HEMOGLOBIN 27.6 pg (27.0-33.0); MEAN CORPUSCULAR HGB CONC 32.5 g/dl (32.0-36.5); MEAN CORPUSCULAR VOLUME 84.7 fl (80.0-96.0); MONO # 0.6 10^3/uL (0.0-0.8); MONO % 5.6 % (0.0-5.0); NEUTROPHILS # 7.5 10^3/uL (1.5-8.5); NEUTROPHILS % 75.1 % (36.0-66.0); PLATELET COUNT, AUTOMATED 400 10^3/uL (150-450); RED BLOOD COUNT 5.37 10^6/uL (4.00-5.40)
[2019-11-28 13:04] LABS: BLOOD UREA NITROGEN 7 MG/DL (7-18); C REACTIVE PROTEIN QUANTITATIV 8.21 MG/DL (0.00-0.30); CALCIUM LEVEL 9.1 MG/DL (8.5-10.1); CARBON DIOXIDE LEVEL 30 MEQ/L (21-32); CHLORIDE LEVEL 105 MEQ/L (98-107); CREATININE FOR GFR 1.03 MG/DL (0.55-1.30); GLOMERULAR FILTRATION RATE > 60.0 (>58); GLUCOSE, FASTING 82 MG/DL (70-100); POTASSIUM SERUM 5.2 MEQ/L (3.5-5.1); SODIUM LEVEL 139 MEQ/L (136-145)
[2019-11-29 10:14] LABS: INR 0.97; PROTHROMBIN TIME 13.1 SECONDS (12.5-14.3)
[2019-12-09 09:15] LABS: BASO % 0.4 % (0.0-1.0); EOS # 0.3 10^3/uL (0.0-0.5); EOS % 3.4 % (0.0-3.0); HEMATOCRIT 42.9 % (36.0-47.0); HEMOGLOBIN 13.8 g/dl (12.0-15.5); LYMPH # 2.4 10^3/uL (1.5-5.0); LYMPH % 26.6 % (24.0-44.0); MEAN CORPUSCULAR HEMOGLOBIN 27.3 pg (27.0-33.0); MEAN CORPUSCULAR HGB CONC 32.2 g/dl (32.0-36.5); MEAN CORPUSCULAR VOLUME 84.8 fl (80.0-96.0); MONO # 0.5 10^3/uL (0.0-0.8); NEUTROPHILS # 5.8 10^3/uL (1.5-8.5); NEUTROPHILS % 64.3 % (36.0-66.0); PLATELET COUNT, AUTOMATED 345 10^3/uL (150-450); RED BLOOD COUNT 5.06 10^6/uL (4.00-5.40)
[2019-12-09 11:11] LABS: HEMATOCRIT 40.5 % (36.0-47.0); MEAN CORPUSCULAR HEMOGLOBIN 27.3 pg (27.0-33.0); MEAN CORPUSCULAR HGB CONC 32.1 g/dl (32.0-36.5); MEAN CORPUSCULAR VOLUME 85.1 fl (80.0-96.0); PLATELET COUNT, AUTOMATED 220 10^3/uL (150-450); RED BLOOD COUNT 4.76 10^6/uL (4.00-5.40); WHITE BLOOD COUNT 7.3 10^3/uL (4.0-10.0)
--- NOTE | 2019-12-16 07:07 | IPN ---
DATE: 10/12/2019 Sujey is doing well. She would like to home. She complaints of burning of both hands. No nausea, vomiting, or diarrhea. No fever or chills. Her mother, Yas is visiting and will be helping her with transportation. Wound culture from the right hand was positive for Citrobacter freundii, sensitive to Levaquin, resistant to cephalosporins. PHYSICAL EXAMINATION: HEART: Normal S1, S2. No murmurs, rubs, or gallops. LUNGS: Clear. No wheezes, rales, or rhonchi. ABDOMEN: Soft, non-tender. No hepatosplenomegaly. BACK: No costovertebral angle (CVA) tenderness. Mild lumbosacral tenderness around L4-5 with a healed surgical scar. EXTREMITIES: No clubbing, cyanosis, or edema. Both arms with multiple eschars. On the hands there are at least two eschars, black, necrotic. On the upper extremities there are ulcerations that have no scabs open with granulation tissue. Silvadene ointment overlying all the ulcers, and patient has Kerlix wrap. There are at least 10 ulcers on the right hand and right forearm and about the same on the left side. Both knee ulcerations and scabs are healing. IMPRESSION: 1. Infected both upper extremities with culture positive for Citrobacter freundii, sensitive to levofloxacin. The patient will be discharged home with 10 days of Levaquin. 2. History of Methicillin-resistant Staphylococcus aureus (MRSA) discitis and epidural abscess, status post incision and drainage (I and D). The patient has missed her dose of dalbavancin on Wednesday and will be schedule to receive a dose on October 12, 1499 mg, and repeated on October 22. 3. Photosensitivity to doxycycline. Has not been able to tolerate doxycycline in the summer, and therefore that has been on hold. She needs to remain on chronic suppressive therapy with doxycycline, which will be resumed on November 06. PLAN: Discharge patient home on Levaquin 750 mg by mouth daily for 10 days, Dalvance on October 12 and October 22 through the infusion unit. Followup with Dr. Jose in 2 weeks. She also has a followup with rheumatology next week and dermatology, Dr. Vaughan. Patient will be discharged home today. VINCENT
[2019-12-17 14:18] LABS: BASO % 0.6 % (0.0-1.0); EOS # 0.3 10^3/uL (0.0-0.5); EOS % 4.4 % (0.0-3.0); ERYTHROCYTE SEDIMENTATION RATE 31 mm/hr (0-20); HEMATOCRIT 40.7 % (36.0-47.0); HEMOGLOBIN 13.4 g/dl (12.0-15.5); LYMPH # 1.9 10^3/uL (1.5-5.0); LYMPH % 31.1 % (24.0-44.0); MEAN CORPUSCULAR HEMOGLOBIN 27.4 pg (27.0-33.0); MEAN CORPUSCULAR HGB CONC 32.9 g/dl (32.0-36.5); MEAN CORPUSCULAR VOLUME 83.2 fl (80.0-96.0); MONO # 0.4 10^3/uL (0.0-0.8); MONO % 6.2 % (0.0-5.0); NEUTROPHILS # 3.6 10^3/uL (1.5-8.5); NEUTROPHILS % 57.5 % (36.0-66.0); PLATELET COUNT, AUTOMATED 329 10^3/uL (150-450); RED BLOOD COUNT 4.89 10^6/uL (4.00-5.40); WHITE BLOOD COUNT 6.2 10^3/uL (4.0-10.0)
[2020-01-01 16:41] LABS: BLOOD UREA NITROGEN 12 MG/DL (7-18); C REACTIVE PROTEIN QUANTITATIV 1.83 MG/DL (0.00-0.30); CALCIUM LEVEL 8.3 MG/DL (8.5-10.1); CARBON DIOXIDE LEVEL 27 MEQ/L (21-32); CHLORIDE LEVEL 108 MEQ/L (98-107); CPK CREATINE PHOSPHOKINASE 89 U/L (26-192); CREATININE FOR GFR 0.88 MG/DL (0.55-1.30); GLOMERULAR FILTRATION RATE > 60.0 (>58); GLUCOSE, FASTING 89 MG/DL (70-100); POTASSIUM SERUM 3.8 MEQ/L (3.5-5.1); SODIUM LEVEL 142 MEQ/L (136-145)
[2020-01-02 11:48] LABS: BLOOD UREA NITROGEN 8 MG/DL (7-18); C REACTIVE PROTEIN QUANTITATIV 4.71 MG/DL (0.00-0.30); CALCIUM LEVEL 8.7 MG/DL (8.5-10.1); CARBON DIOXIDE LEVEL 30 MEQ/L (21-32); CHLORIDE LEVEL 107 MEQ/L (98-107); CPK CREATINE PHOSPHOKINASE 128 U/L (26-192); CREATININE FOR GFR 0.69 MG/DL (0.55-1.30); GLOMERULAR FILTRATION RATE > 60.0 (>58); GLUCOSE, FASTING 90 MG/DL (70-100); SODIUM LEVEL 141 MEQ/L (136-145)
[2020-01-03 20:52] LABS: ALBUMIN 2.7 GM/DL (3.2-5.2); ALT/SGPT 18 U/L (12-78); BILIRUBIN,TOTAL 0.2 MG/DL (0.2-1.0); BLOOD UREA NITROGEN 10 MG/DL (7-18); C REACTIVE PROTEIN QUANTITATIV 2.36 MG/DL (0.00-0.30); CALCIUM LEVEL 8.9 MG/DL (8.5-10.1); CARBON DIOXIDE LEVEL 30 MEQ/L (21-32); CHLORIDE LEVEL 106 MEQ/L (98-107); CREATININE FOR GFR 0.87 MG/DL (0.55-1.30); GLOMERULAR FILTRATION RATE > 60.0 (>58); GLUCOSE, FASTING 95 MG/DL (70-100); MAGNESIUM LEVEL 1.7 MG/DL (1.8-2.4); POTASSIUM SERUM 3.6 MEQ/L (3.5-5.1); SODIUM LEVEL 141 MEQ/L (136-145); TOTAL PROTEIN 6.4 GM/DL (6.4-8.2)
== END 2019-10-12 17:06 | disposition home or self-care (01) | DRG 383 ==
LOC: M ED 12:00 → M MS5PR 16:20
PROVIDERS: ADMIT Internal Medicine; ATTEND Internal Medicine
DX: L03.113 Cellulitis of right upper limb (principal); I10 Essential (primary) hypertension; F17.200 Nicotine dependence, unspecified, uncomplicated; F11.90 Opioid use, unspecified, uncomplicated; E87.6 Hypokalemia; D64.9 Anemia, unspecified; Z88.0 Allergy status to penicillin; Z88.2 Allergy status to sulfonamides; Z79.899 Other long term (current) drug therapy; F12.90 Cannabis use, unspecified, uncomplicated; G47.00 Insomnia, unspecified; L03.114 Cellulitis of left upper limb

== ENCOUNTER 2019-10-13 15:25 | Outpatient (CLI) | payer OTHER ==
[2019-10-13] MEDS ORDERED: DALBAVANCIN ONE (15:26)
== END 2019-10-13 19:30 | disposition home or self-care (01) ==
LOC: M INFU 15:25
PROVIDERS: ATTEND Internal Medicine Infectious Disease
DX: M46.40 Discitis, unspecified, site unspecified (principal); A49.02 Methicillin resistant Staphylococcus aureus infection, unspecified site
CPT/HCPCS: 73130; 96365; 96366; J0875

== ENCOUNTER 2019-10-23 15:45 | Outpatient (CLI) | payer OTHER ==
[~2019-10-23 15:45] MED LIST changes: -ACET-683 PO; -AMLO25TA PO; -ASPI81CH8 PO; -BUPR1SUB5 SL; -HYDR200T3 PO; -ONDA-83 PO; -RISP1TAB3 PO; -SENN1TAB96 SL
[2019-10-23] MEDS ORDERED: DALBAVANCIN ONE (16:00)
== END 2019-10-23 19:30 | disposition home or self-care (01) ==
LOC: M INFU 15:45
PROVIDERS: ATTEND Internal Medicine Infectious Disease
DX: L02.212 Cutaneous abscess of back [any part, except buttock and flank] (principal); A49.02 Methicillin resistant Staphylococcus aureus infection, unspecified site
CPT/HCPCS: 36592; 96365; 96366; J0875

== ENCOUNTER → 2019-10-23 | Outpatient (REF) | payer OTHER ==
[~2019-10-23] MED LIST changes: +ACET-683 PO; +AMLO25TA PO; +ASPI81CH8 PO; +BUPR1SUB5 SL; +HYDR200T3 PO; +ONDA-83 PO; +RISP1TAB3 PO; +SENN1TAB96 SL
[2019-12-09 23:07] LABS: BASO % 0.5 % (0.0-1.0); EOS # 0.4 10^3/uL (0.0-0.5); EOS % 5.1 % (0.0-3.0); HEMATOCRIT 38.4 % (36.0-47.0); HEMOGLOBIN 12.5 g/dl (12.0-15.5); LYMPH % 26.7 % (24.0-44.0); MEAN CORPUSCULAR HEMOGLOBIN 27.5 pg (27.0-33.0); MEAN CORPUSCULAR HGB CONC 32.6 g/dl (32.0-36.5); MEAN CORPUSCULAR VOLUME 84.4 fl (80.0-96.0); MONO # 0.5 10^3/uL (0.0-0.8); MONO % 6.2 % (0.0-5.0); NEUTROPHILS # 4.5 10^3/uL (1.5-8.5); PLATELET COUNT, AUTOMATED 268 10^3/uL (150-450); RED BLOOD COUNT 4.55 10^6/uL (4.00-5.40); WHITE BLOOD COUNT 7.5 10^3/uL (4.0-10.0)
[2019-12-09 23:18] LABS: ERYTHROCYTE SEDIMENTATION RATE 35 mm/hr (0-20)
[2019-12-19 00:42] LABS: ALBUMIN 2.8 GM/DL (3.2-5.2); ALT/SGPT 13 U/L (12-78); BILIRUBIN,TOTAL 0.2 MG/DL (0.2-1.0); BLOOD UREA NITROGEN 7 MG/DL (7-18); C REACTIVE PROTEIN QUANTITATIV 2.78 MG/DL (0.00-0.30); CALCIUM LEVEL 8.7 MG/DL (8.5-10.1); CARBON DIOXIDE LEVEL 28 MEQ/L (21-32); CHLORIDE LEVEL 104 MEQ/L (98-107); CREATININE FOR GFR 0.94 MG/DL (0.55-1.30); GLOMERULAR FILTRATION RATE > 60.0 (>58); GLUCOSE, FASTING 168 MG/DL (70-100); POTASSIUM SERUM 3.5 MEQ/L (3.5-5.1); SODIUM LEVEL 135 MEQ/L (136-145); TOTAL PROTEIN 6.7 GM/DL (6.4-8.2)
== END ==
LOC: M LAB REF 13:24
PROVIDERS: ATTEND Internal Medicine Infectious Disease
DX: I33.0 Acute and subacute infective endocarditis (principal); F19.10 Other psychoactive substance abuse, uncomplicated; Z88.8 Allergy status to other drugs, medicaments and biological substances

== ENCOUNTER → 2019-10-26 | Outpatient (CLI) | payer OTHER ==
[~2019-10-26] MED LIST changes: +ACET-683 PO; +AMLO25TA PO; +ASPI81CH8 PO; +BUPR1SUB5 SL; +HYDR200T3 PO; +ISOVUE-370 76% 100ML VIAL As Ordered ONE; +ONDA-83 PO; +RISP1TAB3 PO; +SENN1TAB96 SL
== END ==
LOC: M RAD 08:34
PROVIDERS: ATTEND Internal Medicine Infectious Disease
DX: Z53.9 Procedure and treatment not carried out, unspecified reason (principal)

== ENCOUNTER → 2019-11-09 | Outpatient (CLI) | payer OTHER ==
[~2019-11-09] MED LIST changes: -ISOVUE-370 76% 100ML VIAL As Ordered ONE
--- NOTE | 2019-11-09 16:38 | REPVR ---
PROCEDURE INFORMATION: Exam: CT Lumbar Spine Without Contrast Exam date and time: 11/09/2019 4:16 PM Age: 49 years old Clinical indication: Condition or disease; Other: Diskitis; Additional info: Discitis epidural abcessif unable to obtain iv do without* TECHNIQUE: Imaging protocol: Computed tomography images of the lumbar spine without contrast. Radiation optimization: All CT scans at this facility use at least one of these dose optimization techniques: automated exposure control; mA and/or kV adjustment per patient size (includes targeted exams where dose is matched to clinical indication); or iterative reconstruction. COMPARISON: CT Spine, lumbar w/o contrast 06/26/2019 2:04 PM FINDINGS: Postoperative changes compatible with discectomy and interbody fusion at L3-L4 and L4-L5. The interbody cage at L3-L4 partially erodes into the inferior endplate of L3. Additionally there is postoperative changes compatible with posterior decompression and instrumented fusion from L3 through L5. Vertebral body heights are maintained. No evidence of acute fracture. Mild multilevel facet arthropathy. Paravertebral soft tissues are unremarkable. Lumbar lordosis is preserved. Vertebral body heights are maintained. No measurable spondylolisthesis. IMPRESSION: 1. Interbody cage at L3-L4 partially erodes into the inferior endplate of L3. It is unknown if this is secondary to acute osteomyelitis/discitis or chronic erosive changes in the setting of previous osteomyelitis/discitis. Recommend surgical consultation, correlation with laboratory findings, and further evaluation with MRI lumbar spine with and without contrast. 2. Other chronic findings, as above. Electronically signed by: Adam Rodriguez On 11/09/2019 16:38:17 PM
== END ==
LOC: M RAD 14:39
PROVIDERS: ATTEND Internal Medicine Infectious Disease
DX: M43.26 Fusion of spine, lumbar region (principal); M54.5 Low back pain

== ENCOUNTER → 2019-11-27 | Outpatient (CLI) | payer OTHER ==
[2019-11-27 15:22] LABS: BASO # 0.1 10^3/uL (0.0-0.2); BASO % 0.7 % (0.0-1.0); EOS # 0.3 10^3/uL (0.0-0.5); EOS % 2.9 % (0.0-3.0); HEMATOCRIT 51.5 % (36.0-47.0); HEMOGLOBIN 16.4 g/dl (12.0-15.5); LYMPH % 33.9 % (24.0-44.0); MEAN CORPUSCULAR HEMOGLOBIN 26.6 pg (27.0-33.0); MEAN CORPUSCULAR HGB CONC 31.8 g/dl (32.0-36.5); MEAN CORPUSCULAR VOLUME 83.6 fl (80.0-96.0); MONO # 0.5 10^3/uL (0.0-0.8); NEUTROPHILS # 4.9 10^3/uL (1.5-8.5); NEUTROPHILS % 56.2 % (36.0-66.0); PLATELET COUNT, AUTOMATED 414 10^3/uL (150-450); RED BLOOD COUNT 6.16 10^6/uL (4.00-5.40); WHITE BLOOD COUNT 8.7 10^3/uL (4.0-10.0)
[2019-11-27 15:48] LABS: ALT/SGPT 12 U/L (12-78); BLOOD UREA NITROGEN 8 MG/DL (7-18); CALCIUM LEVEL 10.1 MG/DL (8.5-10.1); CARBON DIOXIDE LEVEL 30 MEQ/L (21-32); CHLORIDE LEVEL 102 MEQ/L (98-107); CREATININE FOR GFR 0.87 MG/DL (0.55-1.30); GLOMERULAR FILTRATION RATE > 60.0 (>58); GLUCOSE, FASTING 74 MG/DL (70-100); POTASSIUM SERUM 4.2 MEQ/L (3.5-5.1); SODIUM LEVEL 135 MEQ/L (136-145)
[2019-11-27 15:49] LABS: ALBUMIN 3.9 GM/DL (3.2-5.2); BILIRUBIN,TOTAL 0.4 MG/DL (0.2-1.0); C REACTIVE PROTEIN QUANTITATIV 4.81 MG/DL (0.00-0.30); TOTAL PROTEIN 8.8 GM/DL (6.4-8.2)
[2019-11-27 16:28] LABS: ERYTHROCYTE SEDIMENTATION RATE 3 mm/hr (0-20)
[2019-11-30 12:09] LABS: PHOSPHOLIPIDS LEVEL 281 mg/dL (150-250)
--- NOTE | 2019-11-30 14:30 | REPPI ---
LEFT HAND RADIOGRAPHS CLINICAL: Hand pain. TECHNIQUE: AP, lateral, and bilateral oblique views of the left hand. COMPARISON: None. FINDINGS: Moderate arthritic changes involving the wrist includes pancarpal subchondral sclerosis and cortical irregularities primarily along the radial side of the wrist, as well as radiocarpal joint space narrowing and mild chronic appearing subluxation of the first carpometacarpal joint. Subtle subchondral cystic change is identified at the head of the second metacarpal bone. Increased sclerosis with minimal joint space narrowing is also noted involving the interphalangeal joints. No evidence for acute fracture. 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 MTDD
== END ==
LOC: M PLAIMG 13:48 → M PLALAB 13:48
PROVIDERS: ATTEND Internal Medicine Infectious Disease
DX: M79.602 Pain in left arm (principal); M08.43 Pauciarticular juvenile rheumatoid arthritis, wrist

== ENCOUNTER 2019-11-30 15:14 | Inpatient (IN) | payer OTHER ==
[~2019-11-30] VITALS: Ht 147.3 cm; Wt 47.8 kg
[~2019-11-30 15:14] MED LIST changes: -ACET-683 PO; -AMLO25TA PO; -ASPI81CH8 PO; -BUPR1SUB5 SL; -HYDR200T3 PO; -ONDA-83 PO; -RISP1TAB3 PO; -SENN1TAB96 SL
[2019-11-30] MEDS ORDERED: BUPR1SUB5 SL (15:26)
[2019-11-30 17:06] LABS: BASO # 0.1 10^3/uL (0.0-0.2); BASO % 0.6 % (0.0-1.0); EOS # 0.3 10^3/uL (0.0-0.5); EOS % 2.6 % (0.0-3.0); HEMATOCRIT 46.6 % (36.0-47.0); HEMOGLOBIN 15.2 g/dl (12.0-15.5); LYMPH # 3.1 10^3/uL (1.5-5.0); LYMPH % 28.6 % (24.0-44.0); MEAN CORPUSCULAR HGB CONC 32.6 g/dl (32.0-36.5); MEAN CORPUSCULAR VOLUME 82.8 fl (80.0-96.0); MONO # 0.7 10^3/uL (0.0-0.8); MONO % 6.2 % (0.0-5.0); NEUTROPHILS # 6.6 10^3/uL (1.5-8.5); NEUTROPHILS % 61.7 % (36.0-66.0); PLATELET COUNT, AUTOMATED 396 10^3/uL (150-450); RED BLOOD COUNT 5.63 10^6/uL (4.00-5.40); WHITE BLOOD COUNT 10.7 10^3/uL (4.0-10.0)
[2019-11-30 17:14] LABS: INR 0.88; PARTIAL THROMBOPLASTIN TIME 31.5 SECONDS (24.2-38.5); PROTHROMBIN TIME 12.1 SECONDS (12.5-14.3)
[2019-11-30 17:28] LABS: BLOOD UREA NITROGEN 9 MG/DL (7-18); CALCIUM LEVEL 9.6 MG/DL (8.5-10.1); CARBON DIOXIDE LEVEL 29 MEQ/L (21-32); CHLORIDE LEVEL 102 MEQ/L (98-107); CREATININE FOR GFR 0.98 MG/DL (0.55-1.30); GLOMERULAR FILTRATION RATE > 60.0 (>58); GLUCOSE, FASTING 98 MG/DL (70-100); POTASSIUM SERUM 4.2 MEQ/L (3.5-5.1); SODIUM LEVEL 138 MEQ/L (136-145)
[2019-11-30] MEDS ORDERED: ASPIRIN 81 MG CHEW TABLET PO ONE (18:30)
[2019-11-30] MEDS ORDERED: amLODIPine 5 MG TAB PO ONE (18:30)
[2019-11-30] MEDS ORDERED: RISP1TAB3 PO (19:53)
[2019-11-30] MEDS ORDERED: ONDA-83 PO (19:53)
[2019-11-30] MEDS ORDERED: ACET-683 PO (19:54)
--- NOTE | 2019-11-30 20:00 | IPNPDOC ---
Text Note Date of Service The patient was seen on 11/30/19. TIME OF SERVICE 1040PM Ms. Doty is a 49-year-old smoker a history of rheumatoid arthritis, IV drug use and endocarditis was sent from the dermatologists office for evaluation of left index and middle finger pain, swelling ulcer and discoloration; shell be admitted to complete the workup to determine the cause of the acrocyanosis of the fingers. #Acrocyanosis of the Fingers #Tobacco Abuse #Endocarditis Plan: f/u Echo, auto immune work up per / ASA and Norvasc per Dr. Teague / smoking cessation education / nicotine patch / pain meds / c/w abx for endocarditis rest per 's H&P HARRIET REYES MD Nov 30, 2019 19:59
[2019-11-30 20:32] LABS: ALBUMIN 3.6 GM/DL (3.2-5.2); ALT/SGPT 11 U/L (12-78); BILIRUBIN,DIRECT 0.1 MG/DL (0.0-0.2); BILIRUBIN,TOTAL 0.4 MG/DL (0.2-1.0); TOTAL PROTEIN 7.9 GM/DL (6.4-8.2)
[2019-11-30 22:20] VITALS: BP 118/73
[2019-11-30] MEDS ORDERED: NICOTINE 14 MG/24 HR TRANSDERMAL TD SCH (23:00)
[2019-11-30] MEDS: hydrOXYzine 25 MG TAB PO SCH (23:37)
[2019-11-30] MEDS: GABAPENTIN 300 MG CAP PO SCH (23:37)
[2019-11-30] MEDS: ONDANSETRON 4 MG TAB PO SCH (23:37)
[2019-12-01] VITALS: BP 109/70
--- NOTE | 2019-12-01 00:05 | HPEPDOC ---
[facility] Medical History & Physical Date of Admission Nov 30, 2019 Date of Service: Nov 30, 2019 Attending Physician: HARRIET REYES MD History and Physical CHIEF COMPLAINT: pain, discoloration at end of left index and middle finger HISTORY OF PRESENT ILLNESS: Sujey Doty is a 49 YO F with history of IVDU and several sequelae of drug use including endocarditis, epidural abscess and sternoclavicular abscess presents from dermatology clinic for left index and middle finger discoloration and pain. The patient reports she first saw Dr. Jose in clinic today who referred her to Dr. Tan urgently regarding her finger pain and black spots. Dermatology is concern for acrocyanosis and ischemia with some skin ulcerations of the first and second digit. She was sent to the ED for further workup, including echocardiogram and labs to rule out vasculitis versus autoimmune etiology of skin ulcer. Dermatology also recommend vascular surgery consult and Dr. Byrne was consulted this afternoon. The patient tells me that she has noticed this discoloration and pain on her index and middle finger for about 2 weeks and it has gradually gotten worse. She has not had any trauma to the area. She states she has been otherwise healthy with no recent fevers, chills, nausea, vomiting, joint pain, or fatigue. She does endorse injection of Chantel over 2-3 weeks ago. She states she usually injects into her hands or on her arms. PAST MEDICAL HISTORY: 1. Hx Sternoclavicular osteomyelitis with MRSA 2. Hx Epidural abscess on lumbar spine s/p 6 weeks antibiotics 3. Hx IVDU (Chantel, Heroin) 4. Hx Hepatitis C with spontaneous remission 5. Hx presumptive endocarditis of the tricuspid valve 6. Hx septic emboli to lungs 7. Current tobacco abuse 8. Hypertension PAST SURGICAL HISTORY: 1. x3 2. Cholecystectomy 3. Back surgery x 2 (most recently in August 2019) 4. Neck surgery SOCIAL HISTORY: Smokes one pack per day, has 3 kids. . Denies recent Chantel IVDU (states she hasn't injected for at least one month), Denies alcohol use. On Suboxone FAMILY HISTORY: Mother is alive with unspecified bone disease Father has passed with CAD, CVA ALLERGIES: Please see below. REVIEW OF SYSTEMS: Constitutional: No Weight Change, No Fever, No Chills, No Night Sweats, No Fatigue, No Malaise ENT/Mouth: No Hearing Changes, No Ear Pain, No Nasal Congestion, No Sinus Pain, No Hoarseness, No sore throat, No Rhinorrhea, No Swallowing Difficulty Eyes: No Eye Pain, No Swelling, No Redness, No Foreign Body, No Discharge, No Vision Changes Cardiovascular: No Chest Pain, No SOB, No PND, No Dyspnea on Exertion, No Orthopnea, No Claudication, No Edema, No Palpitations Respiratory: No Cough, No Wheezing, No Smoke Exposure, No Dyspnea Gastrointestinal: No Nausea, No Vomiting, No Diarrhea, No Constipation, No Pain, No Heartburn, No Anorexia, No Dysphagia, No Hematochezia, No Melena, No Flatulence, No Jaundice Genitourinary: No Dysmenorrhea, No DUB, No Dyspareunia, No Dysuria Musculoskeletal: Reports left index and middle finger pain and discoloration 2 weeks Skin: No Skin Lesions, No Pruritis, No Hair Changes, No Breast/Skin Changes, No Nipple Discharge Neuro: No Weakness, No Numbness, No Paresthesias, No Loss of Consciousness, No Syncope, No Dizziness, No Headache, No Coordination Changes, No Recent Falls Psych: No Anxiety/Panic, No Depression, No Insomnia, No Personality Changes, No Delusions Heme/Lymph: No Bruising, No Bleeding, No Transfusions History, No Lymphadenopathy Endocrine: No Polyuria, No Polydipsia, No Temperature Intolerance HOME MEDICATIONS: Please see below. VITAL SIGNS: see below GENERAL: alert and oriented, in no apparent distress, pleasant and conversant in full sentences. HEENT: PERRL, EOMI, Oral mucous membranes are moist without lesions. NECK: The patient has no noted JVD. No adenopathy is appreciated. No thyromegaly CHEST/LUNGS: Lungs are clear bilaterally without rhonchi, rales, or wheezes. There is no subcutaneous air appreciated. There is no tenderness to the chest wall. HEART:Regular rate and rhythm. No murmurs, rubs, or gallops are appreciated. Distal pulses are 2+. No carotid bruits appreciated. ABDOMEN: Soft, nontender, and nondistended. Bowel sounds are positive. No organomegaly is appreciated. No masses are appreciated. There are no peritoneal signs. There is no [place] sign. EXTREMITIES: Left hand index and middle finger demonstrate acrocyanosis and black skin on index finger. Darkened skin on tip of middle finger SKIN: The patients skin is warm and dry, with several hypopigmented lesions covering her arms which she notes has been present from previous drug injection FEET: no evidence of drug injection between the toes PSYCHIATRIC: AAO x 3, normal mood/affect NEUROLOGIC: The patient has 5/5 strength to the upper and lower extremities bilaterally. Sensation is intact throughout. Deep tendon reflexes are 2+ in all four extremities. There are no deficits to the cranial nerves. LABORATORY DATA: See below. IMAGING: LEFT HAND COMPLETE (11/27/19): FINDINGS: Moderate arthritic changes involving the wrist includes pancarpal subchondral sclerosis and cortical irregularities primarily along the radial side of the wrist, as well as radiocarpal joint space narrowing and mild chronic appearing subluxation of the first carpometacarpal joint. Subtle subchondral cystic changeis identified at the head of the second metacarpal bone. Increased sclerosis with minimal joint space narrowing is also noted involving the interphalangeal joints. No evidence for acute fracture. 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 MICROBIOLOGY: Please see below. ASSESSMENT: This is a 49 YO F IV drug user who has suffered several sequelae of her drug use including endocarditis and epidural abscess who presents with left index and middle finger pain and discoloration concerning for acrocyanosis vs autoimmune etiology. She will be admitted for further workup. PLAN: 1. Left index and middle finger pain and discoloration: DDX: acrocyanosis vs autoimmune etiology -- including small or medium vessel vasculitidies: Buerger's disease, HSP, cutaneous vasculitis, scleroderma, Raynauds disease vs sequelae of bacterial endocarditis and septic emboli -Concern for occlusion, ischemia and potential loss of finger tips -NINO, ANCA ordered and pending -Will order compliment levels (C3/C4), MPO, ESR, CRP -Echo ordered to r/o endocarditis -Blood cultures ordered and pending -Per vascular surgery recommendation, patient has been given ASA 81mg + calcium channel radha (Norvasc) for empiric treatment of vasospasm -Hand XR ordered to r/o calciphylaxis (calcium level normal) -Tylenol/Toradol for pain 2. Mood disorder: -Continue Atarax, Seroquel, Risperdal 3. GERD: -Continue Omeprazole DVT ppx: TEDS/SCDs Vital Signs Vital Signs Date Time Temp Pulse Resp B/P (MAP) Pulse Ox O2 Delivery O2 Flow Rate FiO2 11/30/19 16:01 11/30/19 15:15 97.5 96 16 96 Room Air Laboratory Data Labs 24H Laboratory Tests 2 11/30/19 16:48: Immature Granulocyte % (Auto) 0.3, Neutrophils (%) (Auto) 61.7, Lymphocytes (%) (Auto) 28.6, Monocytes (%) (Auto) 6.2H, Eosinophils (%) (Auto) 2.6, Basophils (%) (Auto) 0.6, Neutrophils # (Auto) 6.6, Lymphocytes # (Auto) 3.1, Monocytes # (Auto) 0.7, Eosinophils # (Auto) 0.3, Basophils # (Auto) 0.1, Nucleated Red Blood Cells % (auto) 0.0, Prothrombin Time 12.1, Prothromb Time International Ratio 0.88, Activated Partial Thromboplast Time 31.5, Anion Gap 7L, Glomerular Filtration Rate > 60.0, Calcium Level 9.6, Total Bilirubin 0.4, Direct Bilirubin 0.1, Aspartate Amino Transf (AST/SGOT) 15, Alanine Aminotransferase (ALT/SGPT) 11L, Alkaline Phosphatase 155H, Total Protein 7.9, Albumin 3.6, Albumin/Globulin Ratio 0.8L 11/30/19 18:28: CBC/BMP Laboratory Tests 11/30/19 16:48 Microbiology Microbiology 11/30/19 Blood Culture, Received Pending 11/30/19 Blood Culture, Received Pending 11/30/19 Blood Culture, Received Pending Home Medications Scheduled Gabapentin (Gabapentin) 300 Mg Capsule, 300 MG PO TID Hydroxyzine HCl (Hydroxyzine HCl) 25 Mg Tablet, 50 MG PO TID Omeprazole (Omeprazole) 40 Mg Capsule.dr, 40 MG PO DAILY Ondansetron HCl (Ondansetron HCl) 4 Mg Tablet, 4 MG PO Q6H Quetiapine Fumarate (Seroquel) 100 Mg Tablet, 100 MG PO QHS Risperidone (Risperidone) 1 Mg Tablet, 1 MG PO BID Venlafaxine HCl (Venlafaxine HCl ER) 150 Mg Cap.er.24h, 150 MG PO DAILY Scheduled PRN Acetaminophen (Acetaminophen) 500 Mg Tablet, 1,000 MG PO DAILY PRN for PAIN Allergies Coded Allergies: vancomycin (Verified Allergy, Severe, 11/30/19) Penicillins (Verified Allergy, Intermediate, RASH, 11/30/19) Sulfa (Sulfonamide Antibiotics) (Verified Allergy, Intermediate, RASH, 11/30/19) trimethoprim (Verified Allergy, Intermediate, RASH, 11/30/19) tramadol (Verified Adverse Reaction, Intermediate, ITCHING, URINARY RETENTION, 11/30/19) A-FIB/CHADSVASC A-FIB History Current/History of A-Fib/PAF?: No GME ATTESTATION GME ATTESTATION My faculty preceptor for this patient encounter was physically present during the encounter and was fully available. All aspects of the patient interview, examination, medical decision making process, and medical care plan development were reviewed and approved by the faculty preceptor. The faculty preceptor is aware and concurs with the plan as stated in the body of this note and will attest to such by his/her cosignature. ATTENDING NOTE I agree with the findings as documented with the following additions Ms. Dtoy is a 49-year-old smoker a history of rheumatoid arthritis, IV drug use and hx of endocarditis was sent from the dermatologists office for evaluation of left index and middle finger pain, swelling ulcer and discoloration; shell be admitted to complete the workup to determine the cause of the acrocyanosis of the fingers. #Acrocyanosis of the Fingers #Tobacco Abuse # RF + RA vs RF + 2/2 Hep C Plan: f/u Echo, auto immune work up per / ASA and Norvasc per Dr. Teague / smoking cessation education / nicotine patch / pain meds / f/u on anti-CCP report which is currently pending rest per 's H&P ELIUD OROZCO MD Nov 30, 2019 20:57 HARRIET REYES MD Dec 01, 2019 03:37
[2019-12-01 01:11] LABS: C REACTIVE PROTEIN QUANTITATIV 4.52 MG/DL (0.00-0.30)
[2019-12-01] MEDS: QUEtiapine FUMARATE 100 MG TAB PO SCH ×2 (01:23→21:24)
[2019-12-01] MEDS: risperiDONE 1 MG TAB PO SCH ×3 (01:24→21:24)
[2019-12-01 04:00] VITALS: BP 116/70
[2019-12-01 06:14] LABS: HEMATOCRIT 43.6 % (36.0-47.0); MEAN CORPUSCULAR HEMOGLOBIN 26.5 pg (27.0-33.0); MEAN CORPUSCULAR HGB CONC 32.1 g/dl (32.0-36.5); MEAN CORPUSCULAR VOLUME 82.6 fl (80.0-96.0); PLATELET COUNT, AUTOMATED 334 10^3/uL (150-450); RED BLOOD COUNT 5.28 10^6/uL (4.00-5.40)
[2019-12-01] MEDS: ONDANSETRON 4 MG TAB PO SCH ×2 (06:23→10:50)
[2019-12-01 06:25] LABS: BLOOD UREA NITROGEN 9 MG/DL (7-18); CALCIUM LEVEL 8.8 MG/DL (8.5-10.1); CARBON DIOXIDE LEVEL 27 MEQ/L (21-32); CHLORIDE LEVEL 106 MEQ/L (98-107); GLOMERULAR FILTRATION RATE > 60.0 (>58); GLUCOSE, FASTING 114 MG/DL (70-100); MAGNESIUM LEVEL 1.9 MG/DL (1.8-2.4); POTASSIUM SERUM 3.7 MEQ/L (3.5-5.1); SODIUM LEVEL 139 MEQ/L (136-145)
[2019-12-01 08:00] VITALS: BP 112/64
[2019-12-01] MEDS: OMEPRAZOLE 20 MG CAP PO SCH (09:09)
[2019-12-01] MEDS: VENLAFAXINE **XR** 75MG CAPSULE PO SCH (09:09)
[2019-12-01] MEDS: hydrOXYzine 25 MG TAB PO SCH ×3 (09:09→21:24)
[2019-12-01] MEDS: GABAPENTIN 300 MG CAP PO SCH ×3 (09:09→21:24)
[2019-12-01] MEDS: ASPIRIN 81 MG CHEW TABLET PO SCH (09:09)
[2019-12-01] MEDS: KETOROLAC TROMETHAMINE 10 MG TAB PO PRN (09:44)
--- NOTE | 2019-12-01 10:42 | IPNPDOC ---
Text Note Date of Service The patient was seen on 12/01/19. NOTE HPI: Ms. Doty is 49 yo F with PMHx of IVDU, endocarditis, epidural abscess, sternoclavicular abscess, and RA that presented to the ED after seeing Dr. Tan for pain and black spots on her left index and middle fingers. SUBJECTIVE: No acute events overnight. Pt states that her finger pain is still present, the left index finger 9/10 and the left middle finger less painful. She says that she has been feeling "cold sweats" overnight however she has remained afebrile. She states that the discoloration on her fingers has been present for about a week, it started as a small red riki as if she "pinched her finger" and it progressed to the dark ulcer that it is now. Dr. Byrne has been consulted. She admits to some nausea and headache this morning. She denies mae rrhea, constipation, dysuria, shortness of breath, or weakness. She states that the last time she used drugs was approximately 2 months ago and she used tamy at that time. OBJECTIVE: VITAL SIGNS: Please see below. GENERAL: Pt appears sitting in bed, looks older than stated age, and in no acute distress. HEENT: NC, AT, no scleral icterus, no pharyngeal erythema, PERRLA, no oral lesions. NECK: no JVD or lymphadenopathy appreciated. CV: RRR, no murmurs, rubs, or gallops. RESP: CTAB, no rales, rhonchi, or wheezes. ABDOMEN: soft, nondistended, tender to palpation in RLQ, bowel sounds present in all quadrants. EXTREMITIES/SKIN: strength +5/5 and normal sensation in all 4 extremities, no leg swelling or edema, radial pulses +2/4 BL, left index fingertip blackened, left middle fingertip has slight redness and pain, all other fingers have good capillary refill and no lesions, pedal pulses +2/4 BL, multiple areas of hypopigmentation on arms and back. NEURO: CN II-XII grossly intact, AAOx3. PSYCH: Normal mood and affect. LABORATORY: Please see below. MICROBIOLOGY: Blood cultures pending. IMAGING: None on this visit. ASSESSMENT/PLAN: Ms. Doty is a 49 yo F with a PMHx of IVDU, endocarditis, epidural abscess, sternoclavicular abscess, and RA, who presented with left index and middle finger pain and discoloration concerning for acrocyanosis vs autoimmune etiology that was admitted for further evaluation. #. Left index and middle finger pain and discoloration 2/2 to acrocyanosis vs autoimmune etiology vs sequelae of bacterial endocarditis and septic emboli. -NINO, ANCA, MPO ab ordered and pending. -C3/4 levels within normal limits. -Blood cultures pending. -Echocardiogram performed pending report -Vascular surgery on consultation; Recommendation ASA 81mg and calcium channel radha, possibly 2/2 embolic etiology 2/2 endocarditis -Dermatology consulted. -ID consulted; will c/w Doxcyxl;ine #. Mood disorder -continue venlafaxine, atarax, and risperdone. #. GERD -continue omeprazole. #. RA -continue toradol, gabapentin, acetaminophen. #. Tobacco Use -Nicotine patch -Encouraged by vascular surgery to abstain from nicotine entirely. DVT prophylaxis: TEDs and seqs. GI prophylaxis: not indicated, pt takes omeprazole. VS,Fishbone, I+O VS, Fishbone, I+O Laboratory Tests 11/30/19 16:48 12/01/19 05:52 Vital Signs Date Time Temp Pulse Resp B/P (MAP) Pulse Ox O2 Delivery O2 Flow Rate FiO2 12/01/19 09:10 80 112/64 12/01/19 08:00 97.3 16 98 Room Air I&O- Last 24 Hours up to 6 AM 12/01/19 06:00 Intake Total 360 ml Balance 360 ml GME ATTESTATION GME ATTESTATION My faculty preceptor for this patient encounter was physically present during the encounter and was fully available. All aspects of the patient interview, examination, medical decision making process, and medical care plan development were reviewed and approved by the faculty preceptor. The faculty preceptor is aware and concurs with the plan as stated in the body of this note and will attest to such by his/her cosignature. ATTENDING NOTE I, Anali Delgado, have independently examined this patient and performed my own physical exam, as well as reviewed the documentation and edited where necessary. I have discussed in detail with the resident / student the findings and plan of treatment as documented by the resident / student and edited their note. I agree with their findings and treatment plan and have edited their documentation. I will continue to follow the patient during this hospital stay. Disposition: - Discussed case at length with infectious disease and vascular surgery - Patient will likely need continued management of endocarditis - Discussed with cardiology about pursuing transesophageal echo; however at this time may not change acute management - Will continue with doxycycline - Anticipate discharge within 24 hours after blood cultures result KARISSA PETERSEN S-3 Dec 01, 2019 10:42 ANALI DELGADO MD Dec 01, 2019 16:49
[2019-12-01] MEDS: DOXYCYCLINE HYCLATE 100MG TABLET PO SCH ×2 (10:50→21:24)
[2019-12-01 12:00] VITALS: BP 114/64
[2019-12-01] MEDS ORDERED: ONDANSETRON 4 MG TAB PO PRN (14:15)
--- NOTE | 2019-12-01 15:27 | CR.PDOC ---
General Date of Consultation: Dec 01, [address] Teague. HISTORY OF PRESENT ILLNESS: The patient is a 49 YO F with history of IVDU and several sequelae of drug use including endocarditis, epidural abscess and sternoclavicular abscess admitted to the [facility] for left index and middle finger discoloration and pain. Vascular surgery opinion is requested. The patient states she initially noticed discoloration and pain at the tip of her fingers about 2 weeks ago, she thought she had hit the tip of her finger and maybe it would get better. She does not recall any injury or trauma. It has gradually been worsening. ALLERGIES: Please see below. HOME MEDICATIONS: Please see below. PAST MEDICAL HISTORY: 1. Hx Sternoclavicular osteomyelitis with MRSA 2. Hx Epidural abscess on lumbar spine s/p 6 weeks antibiotics 3. Hx IVDU (Chantel, Heroin) 4. Hx Hepatitis C with spontaneous remission 5. Hx presumptive endocarditis of the tricuspid valve 6. Hx septic emboli to lungs 7. Current tobacco abuse 8. Hypertension PAST SURGICAL HISTORY: 1. x3 2. Cholecystectomy 3. Back surgery x 2 (most recently in August 2019) 4. Neck surgery SOCIAL HISTORY: Smokes one pack per day, has 3 kids. . Denies recent Chantel IVDU she states she has injected Chantel about 2 or 3 weeks ago but denies injecting in the left arm. Denies alcohol use. On Suboxone. FAMILY HISTORY: Mother is alive with unspecified bone disease Father has passed with CAD, CVA REVIEW OF SYSTEMS: PHYSICAL EXAMINATION: VITAL SIGNS: Please see below. GENERAL APPEARANCE: NAD HEENT: MMM RESPIRATORY: CTA CARDIOVASCULAR: RRR ABDOMEN: soft, NT EXTREMITIES: The patient's left hand is warm to touch. Left hand with black discoloration at the tip of the index finger. There is reddish discoloration at the tip of the middle finger and ring finger as well. There are easily palpable pulses at the radial and ulnar on the left and right. NEUROLOGICAL: A/O LABORATORY DATA: Please see below. ASSESSMENT/PLAN: 1. Left index and middle finger pain and discoloration. The patient is reviewed and examined as per Dr. Teague. Suspect possible embolization with history of endocarditis and vegetations. Would recommend to continue with IV antibiotics and continue with cardiology follow-up. The patient was given empiric treatment of aspirin 81 mg and calcium channel radha (norvasc) for treatment of possible vasospasm. If tissue loss develops would recommend follow up with hand surgeon, Reilly Castellanos MD [facility] [phone]. 2. Tobacco use. The patient is strongly encouraged to quit smoking which may also be contributing to the patient's symptoms related to peripheral vasoconstriction. Would recommend against use of any nicotine supplements as these contribute to peripheral vasoconstriction which would place the patient at higher risk of tissue loss. Vital Signs/I&O Vital Signs Date Time Temp Pulse Resp B/P (MAP) Pulse Ox O2 Delivery O2 Flow Rate FiO2 12/01/19 12:00 98.3 78 18 114/64 (81) 95 Room Air I&O- Last 24 Hours up to 6 AM 12/01/19 05:59 Intake Total 360 ml Balance 360 ml Laboratory Data Labs 24H Laboratory Tests 2 11/30/19 16:48: Immature Granulocyte % (Auto) 0.3, Neutrophils (%) (Auto) 61.7, Lymphocytes (%) (Auto) 28.6, Monocytes (%) (Auto) 6.2H, Eosinophils (%) (Auto) 2.6, Basophils (%) (Auto) 0.6, Neutrophils # (Auto) 6.6, Lymphocytes # (Auto) 3.1, Monocytes # (Auto) 0.7, Eosinophils # (Auto) 0.3, Basophils # (Auto) 0.1, Nucleated Red Blood Cells % (auto) 0.0, Prothrombin Time 12.1, Prothromb Time International Ratio 0.88, Activated Partial Thromboplast Time 31.5, Anion Gap 7L, Glomerular Filtration Rate > 60.0, Calcium Level 9.6, Total Bilirubin 0.4, Direct Bilirubin 0.1, Aspartate Amino Transf (AST/SGOT) 15, Alanine Aminotransferase (ALT/SGPT) 11L, Alkaline Phosphatase 155H, Total Protein 7.9, Albumin 3.6, Albumin/Globulin Ratio 0.8L 11/30/19 18:28: 12/01/19 00:15: Erythrocyte Sedimentation Rate 9, C-Reactive Protein, Quantitative 4.52H, Complement C3 111, Complement C4 30 12/01/19 05:52: Nucleated Red Blood Cells % (auto) 0.0, Anion Gap 6L, Glomerular Filtration Rate > 60.0, Calcium Level 8.8, Magnesium Level 1.9 CBC/BMP Laboratory Tests 11/30/19 16:48 12/01/19 05:52 Microbiology Microbiology 11/30/19 Blood Culture, Received Pending 11/30/19 Blood Culture, Received Pending 11/30/19 Blood Culture, Received Pending Allergies Coded Allergies: vancomycin (Verified Allergy, Severe, 11/30/19) Penicillins (Verified Allergy, Intermediate, RASH, 11/30/19) Sulfa (Sulfonamide Antibiotics) (Verified Allergy, Intermediate, RASH, 11/30/19) trimethoprim (Verified Allergy, Intermediate, RASH, 11/30/19) tramadol (Verified Adverse Reaction, Intermediate, ITCHING, URINARY RETENTION, 11/30/19) Home Medications Scheduled Gabapentin (Gabapentin) 300 Mg Capsule, 300 MG PO TID, (Reported) Hydroxyzine HCl (Hydroxyzine HCl) 25 Mg Tablet, 50 MG PO TID, (Reported) Omeprazole (Omeprazole) 40 Mg Capsule.dr, 40 MG PO DAILY, (Reported) Ondansetron HCl (Ondansetron HCl) 4 Mg Tablet, 4 MG PO Q6H, (Reported) Quetiapine Fumarate (Seroquel) 100 Mg Tablet, 100 MG PO QHS, (Reported) Risperidone (Risperidone) 1 Mg Tablet, 1 MG PO BID, (Reported) Venlafaxine HCl (Venlafaxine HCl ER) 150 Mg Cap.er.24h, 150 MG PO DAILY, (Reported) Scheduled PRN Acetaminophen (Acetaminophen) 500 Mg Tablet, 1,000 MG PO DAILY PRN for PAIN, (Reported) Joan Alejo Dec 01, 2019 15:18
[2019-12-01] MEDS: ACETAMINOPHEN TAB 650MG DOSE (2X325MG) PO PRN (16:10)
[2019-12-01 16:49] VITALS: BP 112/72
[2019-12-01] MEDS ORDERED: PERCOCET 5MG/325MG TAB PO ONE (17:15)
[2019-12-01] MEDS ORDERED: INFLUENZA QUADRIVALENT PF VACCINE 0.5ML SYRINGE IM ONE (19:00)
[2019-12-01 22:00] VITALS: BP 110/70
[2019-12-02] MEDS: KETOROLAC TROMETHAMINE 10 MG TAB PO PRN (00:01)
[2019-12-02 06:00] VITALS: BP 106/64
[2019-12-02] MEDS: ACETAMINOPHEN TAB 650MG DOSE (2X325MG) PO PRN (06:37)
[2019-12-02 06:42] LABS: HEMATOCRIT 41.6 % (36.0-47.0); HEMOGLOBIN 13.5 g/dl (12.0-15.5); MEAN CORPUSCULAR HEMOGLOBIN 26.6 pg (27.0-33.0); MEAN CORPUSCULAR HGB CONC 32.5 g/dl (32.0-36.5); MEAN CORPUSCULAR VOLUME 82.1 fl (80.0-96.0); PLATELET COUNT, AUTOMATED 327 10^3/uL (150-450); RED BLOOD COUNT 5.07 10^6/uL (4.00-5.40); WHITE BLOOD COUNT 8.8 10^3/uL (4.0-10.0)
[2019-12-02 07:06] LABS: BLOOD UREA NITROGEN 19 MG/DL (7-18); CALCIUM LEVEL 9.1 MG/DL (8.5-10.1); CARBON DIOXIDE LEVEL 27 MEQ/L (21-32); CHLORIDE LEVEL 103 MEQ/L (98-107); CREATININE FOR GFR 1.03 MG/DL (0.55-1.30); GLOMERULAR FILTRATION RATE > 60.0 (>58); GLUCOSE, FASTING 94 MG/DL (70-100); SODIUM LEVEL 138 MEQ/L (136-145)
[2019-12-02] MEDS: VENLAFAXINE **XR** 75MG CAPSULE PO SCH (09:04)
[2019-12-02] MEDS: ASPIRIN 81 MG CHEW TABLET PO SCH (09:04)
[2019-12-02] MEDS: hydrOXYzine 25 MG TAB PO SCH (09:04)
[2019-12-02] MEDS: GABAPENTIN 300 MG CAP PO SCH (09:04)
[2019-12-02] MEDS: DOXYCYCLINE HYCLATE 100MG TABLET PO SCH (09:04)
[2019-12-02] MEDS: risperiDONE 1 MG TAB PO SCH (09:04)
[2019-12-02] MEDS: OMEPRAZOLE 20 MG CAP PO SCH (09:04)
[2019-12-02 09:05] VITALS: BP 121/75
[2019-12-02] MEDS ORDERED: ASPI81CH8 PO (11:51)
[2019-12-02] MEDS ORDERED: DOXY100T PO (11:51)
[2019-12-02] MEDS ORDERED: AMLO25TA PO (11:51)
[2019-12-02 13:07] LABS: ANTI CENTROMERE ANTIBODY <0.2 AI (0.0-0.9); ANTINUCLEAR ANTIBODIES DIRECT Negative (Negative)
--- NOTE | 2019-12-03 11:06 | DS.PDOC ---
Discharge Summary General Date of Admission Nov 30, 2019 at 19:59 Date of Discharge December 02, 2019 Attending Physician: ANALI DELGADO MD Specialist/Consultants Involve: Betty Jose MD Specialist/Consultants Involve Dr. Teague, vascular surgery Discharge Summary PROCEDURES PERFORMED DURING STAY: None ADMITTING DIAGNOSES / DISCHARGE DIAGNOSES: Distal left index and middle finger pain and discoloration - likely 2/2 bacterial endocarditis and septic emboli sequelae, less likely 2/2 autoimmune etiology. Mood disorder. GERD Rheumatoid arthritis. Tobacco abuse. Recent IV drug use COMPLICATIONS/CHIEF COMPLAINT: Distal left index and middle finger pain and discoloration HISTORY OF PRESENT ILLNESS: Sujey is a 49-year-old female with IV drug use history (tamy and heroin) and multiple sequelae of said drug use (most recently epidural assess of lumbar spine, and previously endocarditis of tricuspid valve, and sternoclavicular abscess and osteomyelitis with MRSA), tobacco abuse, rheumatoid arthritis, hypertension, and HCV w/ spontaneous remission, who presented to the [facility] emergency department on on the afternoon of 11/30/2019 from the dermatology clinic after seeing Dr. Vaughan for left index and middle finger distal pain and black discoloration. Earlier in the day on 11/29, patient was seen by Dr. Jose, of infectious disease who referred her to Dr. Vaughan urgently in regards to the aforementioned finger complaints. Dr. Vaughan was concern of finger cyanosis and ischemia when he viewed the skin changes and ulcerations. At this point, Dr. Vaughan instructed the patient to present to the ED for further workup, which included laboratory studies to rule out autoimmune etiology of skin ulceration versus vasculitis, and an ec hocardiogram. Dr. Vaguhan also advise a vascular surgery consult. On the hospitalist service admission exam in the ED, patient stated she noticed the discoloration with accompanying pain roughly 2 weeks prior and that since that initial recognition. Patient denies any trauma to the affected fingers and reports otherwise feeling healthy with no recent chills, fevers, nausea, vomit ing, fatigue or joint pain. Patient does report IV injection of Tamy roughly less than 2 weeks ago. Patient states she usually injects her self with IV drugs through her hands or on her arms. HOSPITAL COURSE: Upon admission, and the recommendation vascular surgery, patient was given amlodipine and 81 mg aspirin for empiric treatment of suspected vasospasm. Currently no interventions were required opted then cessation of IV drug abuse and smoking. NINO and ANCA, inflammatory markers (CRP, ESR), myeloperoxidase (MPO), complement levels, two initial blood cultures, were all ordered. At this point, the differential diagnosis was autoimmune etiology, versus sequela of bacterial endocarditis and septic emboli, and Buerger's disease. Patient was given both T ylenol and Toradol for pain. Related to her mood disorder history, she received her home Seroquel and Atarax. She also got omeprazole for reflux. Her home doxycycline, for which she takes for history of osteomyelitis in the setting of bone hardware per the recommendations of infectious disease, was continued (dosing 100 mg twice a day). She was ultimately discharged on the morning of 12/02/19 after her both initial blood cultures returned negative. After extensive discussion with both infectious disease and cardiology regarding a potential transesophageal echocardiogram in the setting of known chronic tricuspid valve endocarditis, a MARIANA was deferred as results would not significant alter the current treatment plan. At this point, there were no intervention required as an inpatient from either the infectious disease or vascular surgery standpoints, and the patient was instructed to return to outpatient follow-up appointments within the next week with both ID and dermatology. She's been strongly advised to remain abstinent or IV drug use and smoking. Patient has been advised that if she fails to remain complaint she may lose portions of her finger. Patient will be closely followed by infectious disease, vascular surgery and dermatology as an outpatient within 7 days. DISCHARGE MEDICATIONS: Please see below. ALLERGIES: Please see below. PHYSICAL EXAMINATION ON DISCHARGE: VITAL SIGNS: Please see below. GENERAL: Pleasant female lying upright in bed. She is in no acute distress., Alert and oriented 3. HEENT: NC, AT, no scleral icterus, no pharyngeal erythema, PERRLA, no oral lesions. NECK: no JVD or lymphadenopathy appreciated. CV: RRR, no murmurs, rubs, or gallops. RESP: CTAB, no rales, rhonchi, or wheezes. ABDOMEN: soft, nondistended, with decreased tenderness of her right lower quadrant as compared to previous days exam. Normoactive bowel sounds present in all quadrants. EXTREMITIES/SKIN: strength +5/5 and normal sensation in all 4 extremities, no leg swelling or edema, radial pulses +2/4 BL, left index fingertip blackened, left middle fingertip has very mild redness and pain, all other fingers have good capillary refill and no lesions, pedal pulses +2/4 BL, multiple areas of hypopigmentation on arms and back. NEURO: CN II-XII grossly intact, AAOx3. PSYCH: Normal mood and affect. LABORATORY DATA: Please see below. IMAGING: None PROGNOSIS: Good ACTIVITY: As tolerated DIET: Regular diet as tolerated DISPOSITION: Home, Self-Care. DISCHARGE INSTRUCTIONS & ITEMS TO FOLLOWUP ON ON OUTPATIENT: -Continue to take home doxycycline oral antibiotic medication 100 mg tablet twice a day. -Continue to take the 2 medications that were started while inpatient. Further recommendation vascular surgery: Amlodipine 2.5 mg daily as well as 81 mg chewable aspirin daily -Follow-up with infectious disease (Dr. Jose) and primary care provider at the [facility] clinic within 7 days. -Follow-up with Dr. Tan of dermatology, per previous outpatient within 7 days. -Return to the emergency department should her symptoms acutely worsen and/or return, or in the event of an acute medical emergency TIME SPENT ON DISCHARGE: 35 minutes Vital Signs/I&Os Vital Signs Date Time Temp Pulse Resp B/P (MAP) Pulse Ox O2 Delivery O2 Flow Rate FiO2 12/02/19 09:05 88 121/75 12/02/19 06:00 98.1 18 96 Room Air I&O- Last 24 Hours up to 6 AM 12/03/19 06:00 Intake Total 600 ml Output Total 200 ml Balance 400 ml Microbiology Microbiology 11/30/19 Blood Culture - Preliminary, Resulted No Growth after 48 hours. All Specime... 11/30/19 Blood Culture - Preliminary, Resulted No Growth after 48 hours. All Specime... 11/30/19 Blood Culture - Preliminary, Resulted No Growth after 48 hours. All Specime... Discharge Medications Scheduled Amlodipine Besylate (Amlodipine Besylate) 2.5 Mg Tablet, 2.5 MG PO DAILY Aspirin (Children's Aspirin) 81 Mg Tab.chew, 81 MG PO DAILY Doxycycline Hyclate (Doxycycline Hyclate) 100 Mg Tablet, 100 MG PO BID Gabapentin (Gabapentin) 300 Mg Capsule, 300 MG PO TID, (Reported) Hydroxyzine HCl (Hydroxyzine HCl) 25 Mg Tablet, 50 MG PO TID, (Reported) Omeprazole (Omeprazole) 40 Mg Capsule.dr, 40 MG PO DAILY, (Reported) Ondansetron HCl (Ondansetron HCl) 4 Mg Tablet, 4 MG PO Q6H, (Reported) Quetiapine Fumarate (Seroquel) 100 Mg Tablet, 100 MG PO QHS, (Reported) Risperidone (Risperidone) 1 Mg Tablet, 1 MG PO BID, (Reported) Venlafaxine HCl (Venlafaxine HCl ER) 150 Mg Cap.er.24h, 150 MG PO DAILY, (Reported) Scheduled PRN Acetaminophen (Acetaminophen) 500 Mg Tablet, 1,000 MG PO DAILY PRN for PAIN, (Reported) Allergies Coded Allergies: vancomycin (Verified Allergy, Severe, 11/30/19) Penicillins (Verified Allergy, Intermediate, RASH, 11/30/19) Sulfa (Sulfonamide Antibiotics) (Verified Allergy, Intermediate, RASH, 11/30/19) trimethoprim (Verified Allergy, Intermediate, RASH, 11/30/19) tramadol (Verified Adverse Reaction, Intermediate, ITCHING, URINARY RETENTION, 11/30/19) GME ATTESTATION GME ATTESTATION My faculty preceptor for this patient encounter was physically present during the encounter and was fully available. All aspects of the patient interview, examination, medical decision making process, and medical care plan development were reviewed and approved by the faculty preceptor. The faculty preceptor is aware and concurs with the plan as stated in the body of this note and will attest to such by his/her cosignature. ATTENDING NOTE I, Anali Delgado, have independently examined this patient and performed my own physical exam, as well as reviewed the documentation and edited where necessary. I have discussed in detail with the resident / student the findings and plan of treatment as documented by the resident / student and edited their note. I agree with their findings and treatment plan and have edited their documentation. I will continue to follow the patient during this hospital stay. Time spent on discharge 35 minutes PHUONG KERNS D.O. Dec 03, 2019 11:06 ANALI DELGADO MD Dec 03, 2019 11:59
--- NOTE | 2019-12-04 07:41 | ECHO ---
DATE OF PROCEDURE: 12/01/2019 Age: 49 Gender: Female Height: 58 inches Weight: 108 pounds Body surface area: 1.4 m2 PATIENT LOCATION: Inpatient progressive care unit (PCU), Room 3222 REFERRING PHYSICIAN: Cristal Mejía MD. INDICATION: Endocarditis. MEASUREMENTS: 2D Measurements: RV 2.9 cm LV 3.5 cm Septum 0.9 cm Posterior wall 0.9 cm Aortic Root 2.7 cm LA 2.6 cm LVEF 65% Doppler Measurements: AV 1.03 m/s LVOT 0.91 m/s LVOT diameter 1.8 cm MV-E 70/E prime ratio 8.9/PCWP 13 mmHg PV 0.75 m/s Pulmonary artery acceleration time 120 m/s RVSP 30 mmHg IVC 1.3 cm COMMENTS: Normal sinus rhythm without intraventricular conduction disturbance. M-mode and two-dimensional echocardiography was performed with pulsed, continuous wave, color flow, and tissue Doppler studies. Normal left ventricular size, wall thickness, and wall motion. Normal left atrial size with Doppler evidence of grade 1 left ventricular (LV) diastolic dysfunction, but currently normal estimated mean left atrial pressure. Normal right heart chamber sizes and motion with Doppler evidence of borderline pulmonary hypertension. Normal to small inferior vena cava (IVC) with good collapse in keeping with central venous pressure 0-5 mmHg. Normal aortic root dimensions. Three equal size aortic cusps with slightly thickening of the commisures between the left and right coronary cusps, but adequate cusp separation with trace aortic insufficiency. Normal appearing and functioning mitral valve. Obvious tricuspid valve vegetation measuring 0.6 x 0.6 x 8.4 cm. Associated moderate tricuspid insufficiency. No pericardial effusion. MTDD
--- NOTE | 2019-12-05 16:32 | CR ---
DATE OF CONSULTATION: Asked to consult by hospitalist service for evaluation of vasculitis ulcers of the left hand in a patient with known history of tricuspid valve endocarditis with methicillin-resistant Staphylococcus aureus (MRSA). HISTORY OF PRESENT ILLNESS: Sujey is a 49-year-old female, well known to be from multiple previous hospitalizations. Her history dates back to 03/30/2019, when she was admitted to the hospital with MRSA bacteremia and septic emboli to the lungs. Her initial echocardiogram did not show tricuspid valve vegetation, but the patient was treated presumptively for MRSA endocarditis of the tricuspid valve. During that hospitalization, she also had infection of her sternoclavicular joint, which was aspirated and did not grow any MRSA then. The patient was readmitted in 06/24/2019 with recurrent MRSA bacteremia, severe low back pain, and was found to have vertebral discitis, L2-4, with an epidural abscess and bilateral psoas inflammatory changes. The patient was transferred to [facility] under the care of Dr. Marino. She had an incision and drainage (I and D) of her epidural infection and was treated with intravenous (IV) daptomycin for 6 weeks at a long-term in [place]. She was discharged home on August 24 with doxycycline and Rifampin. Patient developed vomiting with Rifampin, which was discontinued. She continued on doxycycline. In October she developed severe photosensitivity with doxycycline, and therefore this was held. She receive two doses of dalbavancin 2 weeks apart. She has mild low back pain, which comes and goes. About 10 days ago she developed black discoloration of the index and middle finger. Had progressively gotten worse but no new lesions. Mild discoloration of the right thumb without any pain. She denies any nausea, vomiting, or diarrhea. No fever or chills.. She was seen in my office on November 26. Blood culture was ordered. Culture of the finger was done. They were both negative for MRSA. Echocardiogram was ordered but not done. She was sent on November 29 to dermatology for a biopsy, and then recommended admission to be seen by vascular seen and further workup. MEDICAL HISTORY: 1. MRSA endocarditis of the tricuspid valve March 30 with complication of sternoclavicular osteomyelitis. 2. 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 Marino in June 2019 followed by 6 weeks of intravenous (IV) daptomycin. 3. History of IV drug use, Chantel and heroin, with a relapse in October 2019 with secondary necrotic ulcers of both upper extremities with Proteus. 4. History of hepatitis C with spontaneous remission. 5. Tobacco abuse. 6. Hypertension. 7. Echocardiogram done in June 2019 showed tricuspid valve vegetation, measuring about 1 x 0.5 cm. SOCIAL HISTORY: Smokes one pack a day. Has three children. She is . She has not used IV drugs or Chantel since October but smokes pot. She denies alcohol use. She is on Suboxone. PAST SURGICAL HISTORY: 1. section. 2. Cholecystectomy. 3. Back surgery in 2009. 4. I and D of the epidural space abscess in June [address] Marino. 5. History of neck surgery with fusion. REVIEW OF SYSTEMS: She denies any weight gain. No fever, chills, or night sweats. She does complain of some fatigue. No nausea, vomiting, or diarrhea recently. No abdominal pain. She has chronic low back pain, which comes and goes but stable. Left index and middle finger pain with new skin lesions. PHYSICAL EXAMINATION: Healthy looking female. No acute distress. Temperature 98.3, pulse 78, respirations 18, blood pressure 140/64, oxygen saturation 95% on room air. HEART: S1, S2. No murmurs, rubs, or gallops. LUNGS: Clear. No wheezes, rales, or rhonchi. ABDOMEN: Soft, nontender. No hepatosplenomegaly. BACK: Mild lumbosacral tenderness. Oropharynx is clear with no thrush. Neck is supple with no jugular venous distention (JVD), no bruits. Sternoclavicular joint is not swollen. EXTREMITIES: No clubbing, cyanosis, edema with no petechiae. No lesions to suggest endocarditis. SKIN: Index finger of the left hand, there is a black eschar. Middle finger has purplish discoloration. The thumb has one small brownish discolored lesion but no ulcerations. LABORATORY DATA: White count yesterday was 10.7, hemoglobin 15.2, hematocrit 46.6, platelets 396. ESR 9. Sodium 139, potassium 3.7, chloride 106, bicarbonate 27, BUN 9, creatinine 0.8, glucose 114, calcium 8.8, magnesium 1.9. CRP 4.52. Phospholipids 281. Drug screen was positive for cannabinoids. Blood culture from November 26 is no growth after 72 hours, and culture from the finger was Staphylococcus coagulase negative. Lumbar spine CT done on November 08 for continued back pain showed L3-L4. It eroded into the inferior endplate of L3, possibly due to chronic discitis or chronic erosive changes. Recommend surgical consultation. Hand x-ray November 26: Mild to moderate osteoarthritis changes, primarily involving the wrist and 1st and 2nd digits. ALLERGIES: PENICILLIN, TRAMADOL, BACTRIM, and VANCOMYCIN. MEDICATIONS: - doxycycline 100 mg by mouth twice a day - venlafaxine 150 mg daily - omeprazole 40 mg by mouth daily - aspirin 81 mg by mouth daily - Norvasc 2.5 mg daily - Zofran 4 mg by mouth every 6 hours - Ketorolac 10 mg every 12 as needed - gabapentin 300 mg by mouth three times a day - hydroxyzine 50 mg by mouth three times a day - Seroquel 100 mg by mouth every night - risperidone 1 mg by mouth twice a day - Tylenol 650 mg by mouth as needed IMPRESSION: A 49-year-old female with a known history of tricuspid valve endocarditis due to Methicillin-resistant Staphylococcus aureus (MRSA) diagnosed in March 2019, complicated by epidural infection and lumbar discitis, treated with a second course of 6 weeks of IV daptomycin, who is admitted with vasculitic lesions of the 2nd and 3rd finger. Echocardiogram only showing a tricuspid valve vegetation. She had never had any documented left-sided involvement of endocarditis to explain these lesions. She still has back pain, although it has been stable on Suboxone. She remains on doxycycline. May be the reason why her blood cultures are negative if this is indeed a vascular infectious phenomenon. Patient had an attempt of a transesophageal echocardiogram in March 2019, which failed due to inability to pass the esophagus by Dr. Mtz, and we do not have a pediatric probe available. 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 PLAN: Agree with blood cultures. Continue with by mouth doxycycline 100 mg twice a day. Possibly obtaining a transesophageal echocardiogram with a pediatric probe at a later time as an outpatient. Will discuss with infectious disease in [facility], for a second opinion. Case has been discussed with Dr. Mtz, who does not feel he would be able to do a transesophageal echocardiogram (MARIANA), but he will review a transthoracic echocardiogram and get back to us. Patient is scheduled already for an outpatient rheumatologic appointment next week, and this needs to be kept for further workup of a vasculitis based on rheumatologic disease. VINCENT
== END 2019-12-02 14:34 | disposition home or self-care (01) | DRG 193 ==
LOC: M ED 15:14 → M ED INP 19:59 → ENRESERV 20:28 → M PCU 22:19 → M MSPAV 12-01 16:46
PROVIDERS: ADMIT Internal Medicine; ATTEND Internal Medicine
DX: I33.0 Acute and subacute infective endocarditis (principal); I76 Septic arterial embolism; I10 Essential (primary) hypertension; M06.9 Rheumatoid arthritis, unspecified; F19.10 Other psychoactive substance abuse, uncomplicated; F39 Unspecified mood [affective] disorder; F17.200 Nicotine dependence, unspecified, uncomplicated; K21.9 Gastro-esophageal reflux disease without esophagitis; Z79.899 Other long term (current) drug therapy; Z88.2 Allergy status to sulfonamides; Z88.0 Allergy status to penicillin; Z88.8 Allergy status to other drugs, medicaments and biological substances

== ENCOUNTER 2019-12-19 18:37 | Emergency (ER) | payer OTHER ==
[~2019-12-19] VITALS: Ht 147.3 cm; Wt 47.9 kg
[~2019-12-19 18:37] MED LIST changes: +ACET-683 PO; +AMLO25TA PO; +ASPI81CH8 PO; +BUPR1SUB5 SL; +ONDA-83 PO; +RISP1TAB3 PO
[2019-12-19] MEDS ORDERED: HYDR200T3 PO (19:26)
[2019-12-19] MEDS ORDERED: SENN1TAB96 SL (19:26)
[2019-12-19] MEDS ORDERED: PROMETHAZINE INJ 25 MG/ML VIAL (J2550) IV ONE (21:15)
[2019-12-19] MEDS ORDERED: NS 1,000 ML IV ONE (21:15)
[2019-12-19 21:59] LABS: HEMOGLOBIN 13.3 g/dl (12.0-15.5); MEAN CORPUSCULAR HEMOGLOBIN 25.5 pg (27.0-33.0); MEAN CORPUSCULAR HGB CONC 33.3 g/dl (32.0-36.5); MEAN CORPUSCULAR VOLUME 76.8 fl (80.0-96.0); PLATELET COUNT, AUTOMATED 418 10^3/uL (150-450); RED BLOOD COUNT 5.21 10^6/uL (4.00-5.40); WHITE BLOOD COUNT 21.3 10^3/uL (4.0-10.0)
[2019-12-19 22:17] LABS: EOSINOPHILS 3 % (0-3); LYMPHOCYTES 24 % (16-44); MONOCYTES 6 % (0-5); NEUTROPHILS 67 % (28-66); PLATELET ESTIMATE NORMAL (NORMAL)
[2019-12-19 22:30] LABS: ALBUMIN 3.4 GM/DL (3.2-5.2); ALT/SGPT 40 U/L (12-78); BILIRUBIN,DIRECT 0.5 MG/DL (0.0-0.2); BILIRUBIN,TOTAL 1.4 MG/DL (0.2-1.0); BLOOD UREA NITROGEN 11 MG/DL (7-18); CALCIUM LEVEL 9.4 MG/DL (8.5-10.1); CARBON DIOXIDE LEVEL 27 MEQ/L (21-32); CHLORIDE LEVEL 98 MEQ/L (98-107); CPK CREATINE PHOSPHOKINASE 472 U/L (26-192); CREATININE FOR GFR 0.85 MG/DL (0.55-1.30); ETHYL ALCOHOL (ETHANOL) < 0.003 % (0.000-0.010); GLOMERULAR FILTRATION RATE > 60.0 (>58); GLUCOSE, FASTING 83 MG/DL (70-100); LIPASE 39 U/L (73-393); MB/CK RELATIVE INDEX 1.27 (< OR =4); SODIUM LEVEL 134 MEQ/L (136-145); TOTAL PROTEIN 7.2 GM/DL (6.4-8.2); TROPONIN I < 0.02 NG/ML (< 0.10)
[2019-12-20 00:37] LABS: AMPHETAMINES LEVEL URINE NEGATIVE (NEGATIVE); BARBITURATES URINE NEGATIVE (NEGATIVE); BENZODIAZEPINES URINE NEGATIVE (NEGATIVE); CANNABINOIDS URINE POSITIVE (NEGATIVE); COCAINE METABOLITE URINE NEGATIVE (NEGATIVE); METHADONE URINE NEGATIVE (NEGATIVE); OPIATES URINE NEGATIVE (NEGATIVE); PHENCYCLIDINE URINE NEGATIVE (NEGATIVE)
[2019-12-20 00:53] VITALS: BP 145/84
[2019-12-20] MEDS ORDERED: KETOROLAC 30 MG/ML 1ML VIAL IV ONE (01:30)
--- NOTE | 2019-12-20 07:16 | ECGEPIP ---
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
== END 2019-12-20 01:52 | disposition home or self-care (01) ==
LOC: M ED 18:37
DX: R53.81 Other malaise (principal); F19.10 Other psychoactive substance abuse, uncomplicated; F17.200 Nicotine dependence, unspecified, uncomplicated; F12.10 Cannabis abuse, uncomplicated; Z79.82 Long term (current) use of aspirin; Z79.899 Other long term (current) drug therapy; Z88.0 Allergy status to penicillin; Z88.2 Allergy status to sulfonamides; Z88.5 Allergy status to narcotic agent; Z88.8 Allergy status to other drugs, medicaments and biological substances
CPT/HCPCS: 80048; 80076; 80307; 82550; 82553; 83690; 85025; 93005; 93041; 96361; 96374; 96375; 99284; G0480; J1885

== ENCOUNTER → 2019-12-21 | Outpatient (REF) | payer OTHER ==
[~2019-12-21] MED LIST changes: +HYDR200T3 PO; +SENN1TAB96 SL
[2019-12-21 14:06] LABS: BASO # 0.1 10^3/uL (0.0-0.2); BASO % 0.5 % (0.0-1.0); EOS # 0.7 10^3/uL (0.0-0.5); EOS % 5.7 % (0.0-3.0); HEMOGLOBIN 12.2 g/dl (12.0-15.5); LYMPH # 3.2 10^3/uL (1.5-5.0); LYMPH % 25.9 % (24.0-44.0); MEAN CORPUSCULAR HEMOGLOBIN 26.4 pg (27.0-33.0); MEAN CORPUSCULAR VOLUME 80.1 fl (80.0-96.0); MONO # 0.7 10^3/uL (0.0-0.8); MONO % 5.7 % (0.0-5.0); NEUTROPHILS # 7.6 10^3/uL (1.5-8.5); NEUTROPHILS % 61.8 % (36.0-66.0); PLATELET COUNT, AUTOMATED 457 10^3/uL (150-450); RED BLOOD COUNT 4.62 10^6/uL (4.00-5.40); WHITE BLOOD COUNT 12.3 10^3/uL (4.0-10.0)
[2019-12-21 15:28] LABS: ERYTHROCYTE SEDIMENTATION RATE 19 mm/hr (0-20)
[2019-12-21 18:16] LABS: ALBUMIN 2.9 GM/DL (3.2-5.2); ALT/SGPT 38 U/L (12-78); BILIRUBIN,TOTAL 0.3 MG/DL (0.2-1.0); BLOOD UREA NITROGEN 10 MG/DL (7-18); CALCIUM LEVEL 8.6 MG/DL (8.5-10.1); CARBON DIOXIDE LEVEL 28 MEQ/L (21-32); CHLORIDE LEVEL 107 MEQ/L (98-107); CREATININE FOR GFR 1.03 MG/DL (0.55-1.30); GLOMERULAR FILTRATION RATE > 60.0 (>58); GLUCOSE, FASTING 110 MG/DL (70-100); HIV 1&2 SCREEN CENTAUR NEGATIVE (NEGATIVE); POTASSIUM SERUM 2.8 MEQ/L (3.5-5.1); SODIUM LEVEL 142 MEQ/L (136-145); TOTAL PROTEIN 6.4 GM/DL (6.4-8.2)
[2019-12-23 23:12] LABS: HEPATITIS C QUANTITATION HCV Not Detected IU/mL (.)
== END ==
LOC: M SFHCPLAZ 11:18
PROVIDERS: ATTEND Internal Medicine Infectious Disease
DX: I07.9 Rheumatic tricuspid valve disease, unspecified (principal); Z86.19 Personal history of other infectious and parasitic diseases

== ENCOUNTER → 2020-01-02 | Outpatient (REF) | payer OTHER ==
[2020-01-02 15:24] LABS: BASO # 0.1 10^3/uL (0.0-0.2); BASO % 0.5 % (0.0-1.0); EOS # 0.2 10^3/uL (0.0-0.5); EOS % 2.5 % (0.0-3.0); HEMATOCRIT 42.2 % (36.0-47.0); LYMPH # 2.8 10^3/uL (1.5-5.0); LYMPH % 30.4 % (24.0-44.0); MEAN CORPUSCULAR HEMOGLOBIN 25.8 pg (27.0-33.0); MEAN CORPUSCULAR HGB CONC 30.8 g/dl (32.0-36.5); MEAN CORPUSCULAR VOLUME 83.7 fl (80.0-96.0); MONO # 0.6 10^3/uL (0.0-0.8); MONO % 6.7 % (0.0-5.0); NEUTROPHILS # 5.5 10^3/uL (1.5-8.5); NEUTROPHILS % 59.4 % (36.0-66.0); PLATELET COUNT, AUTOMATED 418 10^3/uL (150-450); RED BLOOD COUNT 5.04 10^6/uL (4.00-5.40); WHITE BLOOD COUNT 9.2 10^3/uL (4.0-10.0)
[2020-01-02 15:49] LABS: ERYTHROCYTE SEDIMENTATION RATE 33 mm/hr (0-20)
[2020-01-02 15:53] LABS: ALBUMIN 3.5 GM/DL (3.2-5.2); ALT/SGPT 15 U/L (12-78); BILIRUBIN,TOTAL 0.3 MG/DL (0.2-1.0); BLOOD UREA NITROGEN 11 MG/DL (7-18); C REACTIVE PROTEIN QUANTITATIV 1.35 MG/DL (0.00-0.30); CALCIUM LEVEL 9.5 MG/DL (8.5-10.1); CARBON DIOXIDE LEVEL 30 MEQ/L (21-32); CHLORIDE LEVEL 104 MEQ/L (98-107); CREATININE FOR GFR 0.96 MG/DL (0.55-1.30); GLOMERULAR FILTRATION RATE > 60.0 (>58); GLUCOSE, FASTING 78 MG/DL (70-100); POTASSIUM SERUM 4.3 MEQ/L (3.5-5.1); SODIUM LEVEL 138 MEQ/L (136-145); TOTAL PROTEIN 7.5 GM/DL (6.4-8.2)
[2020-01-02 16:00] LABS: PROLACTIN 15.9 NG/ML
== END ==
LOC: M SFHCPLAZ 12:44
PROVIDERS: ATTEND Internal Medicine Infectious Disease
DX: I07.9 Rheumatic tricuspid valve disease, unspecified (principal); N64.3 Galactorrhea not associated with childbirth

== ENCOUNTER → 2020-02-06 | Outpatient (CLI) | payer OTHER ==
[~2020-02-06] MED LIST changes: +MIRT-60 PO; +MIRT-62 PO; -REME15TA PO; -REME30TA PO; +RISP-8 PO; +RISP-9 PO; -RISP1TAB3 PO; -RISP2TAB3 PO
== END ==
LOC: M LABSMTC 13:51
PROVIDERS: ATTEND Family Medicine
DX: Z20.828 Contact with and (suspected) exposure to other viral communicable diseases (principal)

== ENCOUNTER 2020-02-27 14:02 | Observation (INO) | payer OTHER ==
[~2020-02-27] VITALS: Ht 147.3 cm; Wt 45.8 kg
[~2020-02-27 14:02] MED LIST changes: +SENN1TAB96 PO; -SENN1TAB96 SL
[2020-02-27] MEDS ORDERED: PROM25TA12 PO (14:20)
[2020-02-27] MEDS ORDERED: [UNRECOGNIZED DRUG - CODE] PO (14:21)
[2020-02-27 15:31] LABS: RSV AMPLIFICATION NEGATIVE (NEGATIVE)
[2020-02-27] MEDS: COMBIVENT RESPIMAT 100-20MCG INHALER 4GM INH SCH ×3 (15:41→16:08)
[2020-02-27] MEDS ORDERED: KETOROLAC 30 MG/ML 1ML VIAL IV ONE (15:45)
[2020-02-27 15:50] LABS: BASO # 0.1 10^3/uL (0.0-0.2); BASO % 0.4 % (0.0-1.0); EOS # 0.3 10^3/uL (0.0-0.5); EOS % 1.8 % (0.0-3.0); HEMATOCRIT 42.2 % (36.0-47.0); HEMOGLOBIN 13.5 g/dl (12.0-15.5); LYMPH # 3.8 10^3/uL (1.5-5.0); MEAN CORPUSCULAR HEMOGLOBIN 26.6 pg (27.0-33.0); MEAN CORPUSCULAR VOLUME 83.1 fl (80.0-96.0); MONO # 0.8 10^3/uL (0.0-0.8); MONO % 5.3 % (0.0-5.0); NEUTROPHILS # 9.2 10^3/uL (1.5-8.5); NEUTROPHILS % 65.1 % (36.0-66.0); PLATELET COUNT, AUTOMATED 376 10^3/uL (150-450); RED BLOOD COUNT 5.08 10^6/uL (4.00-5.40); WHITE BLOOD COUNT 14.1 10^3/uL (4.0-10.0)
[2020-02-27 16:00] LABS: ALBUMIN 3.2 GM/DL (3.2-5.2); ALT/SGPT 18 U/L (12-78); BILIRUBIN,TOTAL 0.5 MG/DL (0.2-1.0); BLOOD UREA NITROGEN 7 MG/DL (7-18); C REACTIVE PROTEIN QUANTITATIV 6.51 MG/DL (0.00-0.30); CALCIUM LEVEL 9.1 MG/DL (8.5-10.1); CARBON DIOXIDE LEVEL 28 MEQ/L (21-32); CHLORIDE LEVEL 104 MEQ/L (98-107); CK-MB VALUE MASS 1.5 NG/ML (<3.6); CPK CREATINE PHOSPHOKINASE 96 U/L (26-192); CREATININE FOR GFR 0.75 MG/DL (0.55-1.30); GLOMERULAR FILTRATION RATE > 60.0 (>58); GLUCOSE, FASTING 94 MG/DL (70-100); INR 0.93; LDH LACTATE DEHYDROGENASE 361 U/L (84-246); MB/CK RELATIVE INDEX 1.56 (< OR =4); POTASSIUM SERUM 4.3 MEQ/L (3.5-5.1); PROTHROMBIN TIME 12.7 SECONDS (12.5-14.3); SODIUM LEVEL 136 MEQ/L (136-145); TOTAL PROTEIN 7.9 GM/DL (6.4-8.2); TROPONIN I < 0.02 NG/ML (< 0.10)
[2020-02-27 16:01] LABS: PARTIAL THROMBOPLASTIN TIME 35.5 SECONDS (24.2-38.5)
--- NOTE | 2020-02-27 16:01 | REP ---
INDICATION: cough COMPARISON: 05/26/2019 TECHNIQUE: Portable AP view of the chest FINDINGS: The mediastinum and cardiac silhouette are stable and within normal limits for portable technique. The lung brownlee are clear without acute consolidation, effusion, or pneumothorax. Skeletal structures are intact. IMPRESSION: No acute cardiopulmonary process appreciated. <Electronically signed by Dung Taveras > 02/27/20 [id number]
[2020-02-27 16:59] LABS: ERYTHROCYTE SEDIMENTATION RATE 29 mm/hr (0-20)
[2020-02-27] MEDS ORDERED: ONDANSETRON 4MG/2ML VIAL IV ONE (17:00)
[2020-02-27] MEDS ORDERED: LORazepam 2 MG/ML VIAL IV STA ×2 (17:44→21:41)
--- NOTE | 2020-02-27 17:57 | REPVR ---
PROCEDURE INFORMATION: Exam: CT Chest Without Contrast; Diagnostic Exam date and time: 02/27/2020 5:34 PM Age: 49 years old Clinical indication: Cough; Additional info: Cough x 2 wks - per jessica TECHNIQUE: Imaging protocol: Diagnostic computed tomography of the chest without contrast. Radiation optimization: All CT scans at this facility use at least one of these dose optimization techniques: automated exposure control; mA and/or kV adjustment per patient size (includes targeted exams where dose is matched to clinical indication); or iterative reconstruction. COMPARISON: CT Chest with contrast 04/12/2019 12:03 PM FINDINGS: Lungs: Bibasilar atelectasis. Small peripheral ground-glass opacities in the left upper lobe with a small patchy focus in the right and left pulmonary apices. Findings may represent multifocal pneumonitis to be excluded clinically. Parenchymal scarring left pulmonary apex. Bilateral apical pleuroparenchymal scarring and subpleural blebs. Pleural space: Unremarkable. No pneumothorax. No pleural effusion. Heart: Unremarkable. No cardiomegaly. No pericardial effusion. Aorta: Unremarkable. No aortic aneurysm. Lymph nodes: Bilateral axillary lymphadenopathy measures up to 1 cm on the right and 1.1 cm on the left. No significant mediastinal lymphadenopathy. Bones/joints: Unremarkable. No acute fracture. Soft tissues: Unremarkable. IMPRESSION: 1. Small peripheral ground-glass opacities in the left upper lobe with a small patchy focus in the right and left pulmonary apices. Findings may represent multifocal pneumonitis to be excluded clinically. 2. Bilateral axillary lymphadenopathy measures up to 1 cm on the right and 1.1 cm on the left. Electronically signed by: Sami Hummel On 02/27/2020 17:57:37 PM
--- NOTE | 2020-02-27 18:05 | REPVR ---
PROCEDURE INFORMATION: Exam: CT Abdomen And Pelvis Without Contrast Exam date and time: 02/27/2020 5:34 PM Age: 49 years old Clinical indication: Abdominal pain; Generalized; Additional info: Back pain and hematuria TECHNIQUE: Imaging protocol: Computed tomography of the abdomen and pelvis without contrast. Radiation optimization: All CT scans at this facility use at least one of these dose optimization techniques: automated exposure control; mA and/or kV adjustment per patient size (includes targeted exams where dose is matched to clinical indication); or iterative reconstruction. COMPARISON: CT ABD PELVIS W/O CONTRAST 03/30/2019 2:52 PM FINDINGS: Liver: Normal. No mass. Gallbladder and bile ducts: There has been a cholecystectomy. Pancreas: Normal. No ductal dilation. Spleen: Normal. No splenomegaly. Adrenal glands: Normal. No mass. Kidneys and ureters: 2.9 cm simple cyst right kidney. No complex features. Stomach and bowel: Unremarkable. No obstruction. No mucosal thickening. Appendix: No evidence of appendicitis. Intraperitoneal space: Unremarkable. No free air. No significant fluid collection. Vasculature: The aortoiliac vessels demonstrate mild atherosclerotic calcification. Lymph nodes: Unremarkable. No enlarged lymph nodes. Urinary bladder: Unremarkable as visualized. Reproductive: There has been a hysterectomy. Bones/joints: Status post posterior interbody fusion of L3-L5 using transpedicular screws in the metallic elizabeth. Status post laminectomies at L3 and L4. Soft tissues: Small umbilical hernia. Otherwise unremarkable. IMPRESSION: 1. There has been a cholecystectomy. 2. 2.9 cm simple cyst right kidney. No complex features. No follow-up suggested. 3. There has been a hysterectomy. COMMENTS: Consistent with the [employer]'s Incidental Findings Committee white paper (J Am Willie Radiol 2018): Any incidental renal lesion less than 1 cm or classified as too small to characterize, or any incidental cystic renal lesion characterized as simple-appearing, is likely benign. No follow-up imaging is recommended for these lesions per consensus recommendations based on imaging criteria. Electronically signed by: Sami Hummel On 02/27/2020 18:05:25 PM
[2020-02-27] MEDS ORDERED: LORazepam 2 MG/ML VIAL As Ordered ONE (20:36)
[2020-02-27] MEDS: OMEPRAZOLE 20 MG CAP PO SCH (21:00)
[2020-02-27] MEDS: ENOXAPARIN 40MG/0.4ML SYRINGE (J1650 PER 10MG) SC SCH (21:00)
[2020-02-27] MEDS ORDERED: QUEtiapine FUMARATE 100 MG TAB PO SCH (21:00)
[2020-02-27] MEDS: GABAPENTIN 300 MG CAP PO SCH (21:00)
[2020-02-27] MEDS: HYDROXYCHLOROQUINE 200 MG TAB PO SCH (21:00)
[2020-02-27] MEDS ORDERED: MOM 30ML SUSPENSION UDC PO PRN (22:45)
[2020-02-27] MEDS ORDERED: MAALOX 30 ML SUSP *UDC PO PRN (22:45)
--- NOTE | 2020-02-27 22:45 | HPEPDOC ---
[facility] Medical History & Physical Date of Admission Feb 27, 2020 Date of Service: Feb 27, 2020 Primary Care Physician: Adam Xavier MD Attending Physician: HARRIET REYES MD History and Physical TIME OF SERVICE: 1114pm CHIEF COMPLAINT: URI symptoms HISTORY OF PRESENT ILLNESS: The majority of the history was obtained from ER staff; the patient had received ativan prior to attempted MRI and at the time of my visit was too confused to provide any meaningful history. Per the patient had been behaving appropriately and answering questions during his assessment. is a 49 yr old that was sent by for evaluation of fever, cough, runny nose and vomiting for about 5 days. Despite a negative COVID 19 test being on Cefdinir she continued to have a fever; because the patient mentioned back pain MRI of the spine was attempted but the patient was to agitated to have the procedure completed despite receiving Ativan. At the time of my exam the patient was alert, easily distracted, and would answer my questions with responses that were not congruent with the topic of the conversation. For example when asked about her symptoms she talked about her ex- in the car. 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 . FAMILY HISTORY: Father has passed with CAD, CVA ALLERGIES: Please see below. HOME MEDICATIONS: Please see below. PHYSICAL EXAMINATION: GEN: well-nourished / well developed/ NAD INTEGUMENT: not flushed/ not jaundice / she has hypopigmented skin lesions on the lower arms HEENT: lips acyanotic /mucus membranes moist and pink CVS: RRR/NMRG/ radial pedis pulses intact LUNGS: able to speak full sentences without stopping to take a breath / no co ughing / lungs are clear to auscultation bilaterally on room air MSK/EXTREMITIES: NCAT / gait normal / able to walk around without assistance / SAW x4 extremities NEURO: speech is not dysarthric PSYCH: alert and oriented to person / not answering questions appropriately / able to follow simple commands LABORATORY DATA: See below. IMAGING: Chest xray "No acute cardiopulmonary process appreciated." CT chest "IMPRESSION: 1. Small peripheral ground-glass opacities in the left upper lobe with a small patchy focus in the right and left pulmonary apices. Findings may represent multifocal pneumonitis to be excluded clinically. 2. Bilateral axillary lymphadenopathy measures up to 1 cm on the right and 1.1 cm on the left." CT abd /pelvis "IMPRESSION: 1. There has been a cholecystectomy. 2. 2.9 cm simple cyst right kidney. No complex features. No follow-up suggested. 3. There has been a hysterectomy." MICROBIOLOGY: Please see below. ASSESSMENT: is a 49-year-old with a history of sternoclavicular osteomyelitis, epidural abscess, endocarditis of the tricuspid valve septic emboli to the lungs and chronic hypertension and remote history of IV drug use, presented for evaluation of persistent fever and upper respiratory tract symptoms despite taking abx;she will be admitted for management of possible multifocal PNA. PLAN: 1. Toxic metabolic encephalopathy Possibly due to reaction to Ativan and her home meds Plan: admit to medical floor / neuro checks / hold hydroxyzine 2. Multifocal Pneumonitis / Possible PNA? I couldn't get a history to confirm URI symptoms from the patient COVID 19 neg Plan: f/u continuous pulse ox & supplemental O2/ f/u sputum cx, strep pneumo, mycoplasma PNA,legionella & blood culture / Levofloxacin / Acetaminophen PRN for fever 3. Unspecified Psychiatric Disorder Plan: Quetiapine 4.Fever ? Plan: the day time team may consider obtaining additional history from the patient when the patient is no longer intoxicated to see if an MRI of the spine is indicated and or consulting DVT PROPHYLAXIS: Lovenox DISPOSITION: home after less than 2 midnight's stay Vital Signs Vital Signs Date Time Temp Pulse Resp B/P (MAP) Pulse Ox O2 Delivery O2 Flow Rate FiO2 02/27/20 22:32 96.1 90 17 115/75 (88) 96 Room Air Laboratory Data Labs 24H Laboratory Tests 2 02/27/20 14:46: Immature Granulocyte % (Auto) 0.4, Neutrophils (%) (Auto) 65.1, Lymphocytes (%) (Auto) 27.0, Monocytes (%) (Auto) 5.3H, Eosinophils (%) (Auto) 1.8, Basophils (%) (Auto) 0.4, Neutrophils # (Auto) 9.2H, Lymphocytes # (Auto) 3.8, Monocytes # (Auto) 0.8, Eosinophils # (Auto) 0.3, Basophils # (Auto) 0.1, Nucleated Red Blood Cells % (auto) 0.0, Erythrocyte Sedimentation Rate 29H, Prothrombin Time 12.7, Prothromb Time International Ratio 0.93, Activated Partial Thromboplast Time 35.5, Anion Gap 4L, Glomerular Filtration Rate > 60.0, Lactic Acid Level 1.3, Calcium Level 9.1, Total Bilirubin 0.5, Aspartate Amino Transf (AST/SGOT) 21, Alanine Aminotransferase (ALT/SGPT) 18, Alkaline Phosphatase 186H, Lactate Dehydrogenase 361H, Total Creatine Kinase 96, Creatine Kinase MB 1.5, Creatine Kinase MB Relative Index 1.56, Troponin I < 0.02, C-Reactive Protein, Quantitative 6.51H, Total Protein 7.9, Albumin 3.2, Albumin/Globulin Ratio 0.7L, Procalcitonin 0.11, Coronavirus (COVID-19)(PCR) NEGATIVE, Influenza Type A (RT- PCR) NEGATIVE, Influenza Type B (RT-PCR) NEGATIVE, Respiratory Syncytial Virus (PCR) NEGATIVE 02/27/20 15:52: Urine Color YELLOW, Urine Appearance HAZY, Urine pH 6.0, Urine Specific [place] 1.006, Urine Protein NEGATIVE, Urine Glucose (UA) NEGATIVE, Urine Ketones NEGATIVE, Urine Blood 2+H, Urine Nitrite NEGATIVE, Urine Bilirubin NEGATIVE, Urine Urobilinogen 0.2, Urine Leukocyte Esterase 3+H, Urine WBC (Auto) 23H, Urine RBC (Auto) 12H, Urine Hyaline Casts (Auto) 0, Urine Bacteria (Auto) NEGATIVE, Urine Squamous Epithelial Cells 1, Urine Mucus (Auto) SMALL, Urine Sperm (Auto) CBC/BMP Laboratory Tests 02/27/20 14:46 Microbiology Microbiology 02/27/20 Urine Culture, Received Pending 02/27/20 Blood Culture, Received Pending 02/27/20 Blood Culture, Received Pending Home Medications Scheduled Aspirin (Aspirin EC) 81 Mg Tablet.dr, 81 MG PO DAILY Gabapentin (Gabapentin) 300 Mg Capsule, 300 MG PO TID Hydroxychloroquine Sulfate (Hydroxychloroquine Sulfate) 200 Mg Tablet, 200 MG PO QHS Levofloxacin (Levofloxacin) 500 Mg Tablet, 500 MG PO DAILY@06 Omeprazole (Omeprazole) 20 Mg Capsule.dr, 20 MG PO QHS Ondansetron HCl (Ondansetron HCl) 4 Mg Tablet, 4 MG PO BID Potassium Chloride (Potassium Chloride) 10 Meq Tab.er.prt, 10 MEQ PO BID Prednisone (Prednisone) 20 Mg Tablet, 20 MG PO BID Quetiapine Fumarate (Seroquel) 100 Mg Tablet, 100 MG PO QHS Sennosides/Docusate Sodium (Senexon-S 50-8.6 mg Tablet) 1 Each Tablet, 1 TAB PO BID Tiotropium [place] (Spiriva) 18 Mcg Cap.w.dev, 18 MCG INH DAILY Scheduled PRN Albuterol Sulfate (Ventolin Hfa) 18 Gm Hfa.aer.ad, 4 PUFF INH Q1HP PRN for SHORTNESS OF BREATH Hydroxyzine HCl (Hydroxyzine HCl) 25 Mg Tablet, 25 MG PO BID PRN for ANXIETY Promethazine HCl (Promethazine HCl) 25 Mg Tablet, 25 MG PO Q12H PRN for NAUSEA Miscellaneous Medications [Patient Comment] MED REC COMPLETED VIA EXTERNAL MED HISTORY, PREVIOUS CLINIC VISIT (02/06/2020) AND CALL TO PHARMACY Allergies Coded Allergies: vancomycin (Verified Allergy, Severe, 11/30/19) Penicillins (Verified Allergy, Intermediate, RASH, 11/30/19) Sulfa (Sulfonamide Antibiotics) (Verified Allergy, Intermediate, RASH, 11/30/19) trimethoprim (Verified Allergy, Intermediate, RASH, 11/30/19) tramadol (Verified Adverse Reaction, Intermediate, ITCHING, URINARY RETENTION, 11/30/19) A-FIB/CHADSVASC A-FIB History Current/History of A-Fib/PAF?: No Current PO Anticoag Therapy: HARRIET Reeves MD Feb 27, 2020 22:45
[2020-02-27] MEDS ORDERED: LevoFLOXacin IV 750 MG in IV 1 EA IV SCH (23:00)
--- NOTE | 2020-02-27 23:00 | ECGEPIP ---
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
[2020-02-27] MEDS ORDERED: POTA10TA17 PO (23:24)
[2020-02-27] MEDS ORDERED: CEFD1CAP8 PO (23:24)
[2020-02-27] MEDS ORDERED: ASPI-161 PO (23:24)
[2020-02-27] MEDS ORDERED: OMEP1CAP73 PO (23:24)
[2020-02-27] MEDS ORDERED: PATIENT COMMENT (23:30)
[2020-02-27] MEDS ORDERED: PROMETHAZINE 25 MG TAB PO PRN (23:45)
[2020-02-28 07:47] LABS: HEMATOCRIT 41.6 % (36.0-47.0); MEAN CORPUSCULAR HEMOGLOBIN 27.6 pg (27.0-33.0); MEAN CORPUSCULAR HGB CONC 33.7 g/dl (32.0-36.5); MEAN CORPUSCULAR VOLUME 82.1 fl (80.0-96.0); PLATELET COUNT, AUTOMATED 353 10^3/uL (150-450); RED BLOOD COUNT 5.07 10^6/uL (4.00-5.40); WHITE BLOOD COUNT 8.3 10^3/uL (4.0-10.0)
[2020-02-28 08:06] LABS: BLOOD UREA NITROGEN 10 MG/DL (7-18); CARBON DIOXIDE LEVEL 28 MEQ/L (21-32); CHLORIDE LEVEL 106 MEQ/L (98-107); CREATININE FOR GFR 0.76 MG/DL (0.55-1.30); GLOMERULAR FILTRATION RATE > 60.0 (>58); GLUCOSE, FASTING 86 MG/DL (70-100); POTASSIUM SERUM 4.1 MEQ/L (3.5-5.1); SODIUM LEVEL 139 MEQ/L (136-145)
[2020-02-28] MEDS: ASPIRIN 81 MG ENTERIC TAB PO SCH (08:07)
[2020-02-28] MEDS: POTASSIUM CHLORIDE 10 MEQ SR TABLET PO SCH ×2 (08:07→21:14)
[2020-02-28] MEDS: GABAPENTIN 300 MG CAP PO SCH ×2 (08:07→15:05)
[2020-02-28] MEDS: SENOKOT S TAB PO SCH ×2 (08:07→21:14)
[2020-02-28] MEDS: ONDANSETRON 4 MG TAB PO SCH ×2 (08:07→21:14)
[2020-02-28 14:00] VITALS: BP 107/76
[2020-02-28 14:41] VITALS: BP 125/86; O2SAT 93
[2020-02-28] MEDS: ACETAMINOPHEN TAB 650MG DOSE (2X325MG) PO PRN ×2 (15:05→21:15)
--- NOTE | 2020-02-28 16:38 | IPNPDOC ---
Text Note Date of Service The patient was seen on 02/28/20. NOTE Subjective: Patient continues to complain of cough with brownish sputum. Patient stated that she has been having increased cough and sputum production. Patient denied back pain Objective: GENERAL APPEARANCE: NAD HEENT: no scleral icterus, no JVD, EOMI CARDIOVASCULAR: S1S2 LUNGS: Rhonchi at the base bilaterally ABDOMEN: soft & not tender w palpitation MUSCULOSKELETAL: no cyanosis, no swelling INTEGUMENT: no generalized palor NEUROLOGICAL: cranial nerve function from 2-12 intact intact, follows commands, speech not dysarthric Assessment and plan Patient is a 49-year-old with a history of sternoclavicular osteomyelitis, epidural abscess, endocarditis of the tricuspid valve septic emboli to the lungs and chronic hypertension and remote history of IV drug use, presented for evaluation of persistent fever and upper respiratory tract symptoms despite taking abx;she will be admitted for management of possible multifocal PNA. Metabolic encephalopathy Resolved COPD exacerbation CT chest showed Small peripheral ground-glass opacities in the left upper lobe with a small patchy focus in the right and left pulmonary apices. Findings may represent multifocal pneumonitis to be excluded clinically. 2. Bilateral axillary lymphadenopathy measures up to 1 cm on the right and 1.1 cm on the left. Patient complains of increased sputum production with cough Levofloxacin by mouth Fever Resolved Patient was complaining on the back pain yesterday in the ID office. Patient had a remote history of IV drug abuse, endocarditis, epidural abscess on lumbar spine Sedimentation rate of 29 Spine MRI ordered VS,Fishbone, I+O VS, Fishbone, I+O Laboratory Tests 02/28/20 07:29 Vital Signs Date Time Temp Pulse Resp B/P (MAP) Pulse Ox O2 Delivery O2 Flow Rate FiO2 02/28/20 14:41 98.9 72 18 125/86 (99) 96 Room Air I&O- Last 24 Hours up to 6 AM 02/28/20 06:00 Intake Total 150 ml Balance 150 ml ROLAN LARSON DO Feb 28, 2020 16:38
[2020-02-28] MEDS ORDERED: LevoFLOXacin 500 MG TABLET PO ONE (16:45)
[2020-02-28 17:01] LABS: C REACTIVE PROTEIN QUANTITATIV 4.92 MG/DL (0.00-0.30)
[2020-02-28] MEDS ORDERED: KETOROLAC 30 MG/ML 1ML VIAL IV ONE (17:45)
[2020-02-28] MEDS ORDERED: LORazepam 1 MG TAB PO ONE (18:30)
[2020-02-28] MEDS ORDERED: PROHANCE 279.3MG/ML 5ML VIAL As Ordered ONE (20:04)
--- NOTE | 2020-02-28 20:58 | REPVR ---
PROCEDURE INFORMATION: Exam: MR Lumbar Spine Without and With Contrast. Exam date and time: 02/28/2020 8:15 PM Age: 49 years old Clinical indication: Low back pain; Prior surgery; Surgery date: 6+ months; Surgery type: Fusion; Patient HX: Lbp HX abscess; Additional info: RO spidural abscess - per jessica TECHNIQUE: Imaging protocol: Multiplanar magnetic resonance images of the lumbar spine without and with intravenous contrast. Contrast material: PROHANCE; Contrast volume: 9 ml; Contrast route: INTRAVENOUS (IV); COMPARISON: MRI-LS SPINE W/O FOLL WITH CON 06/26/2019 6:37 PM FINDINGS: Vertebrae: Normal alignment. Increased T2/stir weighted marrow signal read demonstrated in the L3, L4, and now involving the transitional vertebrae at L5. There has been interval posterior transfixation no extending from L3 through L5 lumbar vertebrae using transpedicular screws and metallic rods. Spinal cord: Normal signal. No cord compression. L1-L2: No significant disc disease. No significant spinal canal stenosis. No neural foraminal stenosis. L2-L3: There appears to be abnormal enhancement redemonstrated in the anterior aspect of the L2-L3 disc although partially obscured by the presence of extensive magnetic susceptibility artifact. There is a mild degenerative central spinal stenosis. L3-L4: Mild disc space narrowing at L3-L4. Status post bilateral laminectomy. No central canal stenosis. L4-L5: Disc space narrowing at L4-L5 status post bilateral laminectomy. No central spinal stenosis. There is an interbody fusion device demonstrated. L5-S1: No significant disc disease. No significant spinal canal stenosis. No neural foraminal stenosis. Soft tissues: Examination of the soft tissues demonstrates small amount of fluid tracking into the posterior paraspinal soft tissues at the L2-L3 level which appears to be surrounding the transpedicular screw heads bilaterally. There is also abnormal T2 weighted signal in the posterior paraspinal muscles likely postsurgical. No large well-defined fluid collection demonstrated. Other findings: Redemonstration of a transitional vertebrae which for the purposes of this examination in comparison to the prior examination will be designated L5, just above the last well-defined intervertebral disc. IMPRESSION: 1. Increased T2/stir weighted marrow signal read demonstrated in the L3, L4, and now involving the transitional vertebrae at L5. 2. There appears to be abnormal enhancement redemonstrated in the anterior aspect of the L2-L3 disc although partially obscured by the presence of extensive magnetic susceptibility artifact. There is a mild degenerative central spinal stenosis. 3. There has been interval posterior transfixation no extending from L3 through L5 lumbar vertebrae using transpedicular screws and metallic rods. 4. Examination of the soft tissues demonstrates small amount of fluid tracking into the posterior paraspinal soft tissues at the L2-L3 level which appears to be surrounding the transpedicular screw heads bilaterally. Electronically signed by: Sami Hummel On 02/28/2020 20:58:22 PM
[2020-02-28] MEDS: OMEPRAZOLE 20 MG CAP PO SCH (21:14)
[2020-02-28] MEDS: ENOXAPARIN 40MG/0.4ML SYRINGE (J1650 PER 10MG) SC SCH (21:14)
[2020-02-28 22:00] VITALS: BP 124/76
[2020-02-29] MEDS: HYDROXYCHLOROQUINE 200 MG TAB PO SCH (02:22)
[2020-02-29] MEDS: ACETAMINOPHEN TAB 650MG DOSE (2X325MG) PO PRN ×2 (02:22→09:06)
[2020-02-29 04:55] VITALS: O2SAT 95
[2020-02-29 06:00] VITALS: BP 104/66
[2020-02-29] MEDS ORDERED: LevoFLOXacin 500 MG TABLET PO SCH (06:00)
[2020-02-29 06:18] LABS: BASO # 0.1 10^3/uL (0.0-0.2); BASO % 0.8 % (0.0-1.0); EOS # 0.2 10^3/uL (0.0-0.5); EOS % 3.2 % (0.0-3.0); HEMATOCRIT 43.6 % (36.0-47.0); HEMOGLOBIN 13.9 g/dl (12.0-15.5); LYMPH # 2.4 10^3/uL (1.5-5.0); MEAN CORPUSCULAR HEMOGLOBIN 26.4 pg (27.0-33.0); MEAN CORPUSCULAR HGB CONC 31.9 g/dl (32.0-36.5); MEAN CORPUSCULAR VOLUME 82.7 fl (80.0-96.0); MONO # 0.4 10^3/uL (0.0-0.8); MONO % 7.3 % (0.0-5.0); NEUTROPHILS # 2.9 10^3/uL (1.5-8.5); NEUTROPHILS % 48.4 % (36.0-66.0); PLATELET COUNT, AUTOMATED 297 10^3/uL (150-450); RED BLOOD COUNT 5.27 10^6/uL (4.00-5.40); WHITE BLOOD COUNT 5.9 10^3/uL (4.0-10.0)
[2020-02-29] MEDS: KETOROLAC TROMETHAMINE 10 MG TAB PO PRN ×2 (06:36→17:12)
[2020-02-29 06:41] LABS: ALBUMIN 2.8 GM/DL (3.2-5.2); ALT/SGPT 16 U/L (12-78); BILIRUBIN,TOTAL 0.5 MG/DL (0.2-1.0); BLOOD UREA NITROGEN 14 MG/DL (7-18); CALCIUM LEVEL 8.7 MG/DL (8.5-10.1); CARBON DIOXIDE LEVEL 29 MEQ/L (21-32); CHLORIDE LEVEL 105 MEQ/L (98-107); CREATININE FOR GFR 0.87 MG/DL (0.55-1.30); GLOMERULAR FILTRATION RATE > 60.0 (>58); GLUCOSE, FASTING 87 MG/DL (70-100); MAGNESIUM LEVEL 2.1 MG/DL (1.8-2.4); POTASSIUM SERUM 3.9 MEQ/L (3.5-5.1); SODIUM LEVEL 136 MEQ/L (136-145); TOTAL PROTEIN 7.1 GM/DL (6.4-8.2)
[2020-02-29] MEDS: ASPIRIN 81 MG ENTERIC TAB PO SCH (09:05)
[2020-02-29] MEDS: ONDANSETRON 4 MG TAB PO SCH (09:05)
[2020-02-29] MEDS: SENOKOT S TAB PO SCH (09:05)
[2020-02-29] MEDS: POTASSIUM CHLORIDE 10 MEQ SR TABLET PO SCH (09:06)
[2020-02-29 09:07] VITALS: O2SAT 92
[2020-02-29] MEDS: GABAPENTIN 300 MG CAP PO SCH ×2 (10:08→17:11)
[2020-02-29 14:00] VITALS: BP 123/82
[2020-02-29] MEDS ORDERED: IPRATROPIUM 0.5MG/ALBUTEROL 2.5MG INH SOL UD 3ML (DUONEB) NEB SCH (14:00)
[2020-02-29] MEDS ORDERED: ALBUTEROL 90 MCG/ACT 8GM HFA INHALER INH PRN (14:30)
[2020-02-29] MEDS ORDERED: SPIR1CAP INH (14:55)
[2020-02-29] MEDS ORDERED: LEVO500T3 PO (14:55)
[2020-02-29] MEDS ORDERED: VENTAER INH (14:55)
[2020-02-29] MEDS ORDERED: PRED20TA PO (14:55)
[2020-02-29] MEDS ORDERED: AZITHROMYCIN 250MG TABLET PO ONE (15:00)
[2020-02-29] MEDS ORDERED: metroNIDAZOLE (FLAGYL) 500MG TABLET PO ONE (15:00)
[2020-02-29] MEDS ORDERED: LIDOCAINE 1% SDV 5ML VIAL DILUENT ONE (16:00)
[2020-02-29] MEDS ORDERED: cefTRIAXone SOD 250MG VIAL (J0696 PER 250MG) IM ONE (16:00)
--- NOTE | 2020-02-29 16:08 | DS.PDOC ---
Discharge Summary General Date of Admission Feb 27, 2020 at 14:03 Date of Discharge 02/29/20 Discharge Summary PROCEDURES PERFORMED DURING STAY: [None]. ADMITTING DIAGNOSES: COPD exacerbation Metabolic encephalopathy Fever STD DISCHARGE DIAGNOSES: COPD exacerbation Metabolic encephalopathy Fever STD COMPLICATIONS/CHIEF COMPLAINT: URI. 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 HOSPITAL COURSE: During hospital stay following issues addressed Metabolic encephalopathy Resolved COPD exacerbation CT chest showed Small peripheral ground-glass opacities in the left upper lobe with a small patchy focus in the right and left pulmonary apices. Findings may represent multifocal pneumonitis to be excluded clinically. 2. Bilateral axillary lymphadenopathy measures up to 1 cm on the right and 1.1 cm on the left. Patient complains of increased sputum production with cough Levofloxacin by mouth Fever Resolved Patient was complaining on the back pain yesterday in the ID office. Patient had a remote history of IV drug abuse, endocarditis, epidural abscess on lumbar spine Sedimentation rate of 29 Spine MRI ordered see results below. Dr. Jose recommended follow-up with her in the outpatient settings STD Patient complained of yellowish vaginal discharge. Patient received empiric treatment with azithromycin, ceftriaxone and metronidazole DISCHARGE MEDICATIONS: Please see below. ALLERGIES: Please see below. PHYSICAL EXAMINATION ON DISCHARGE: VITAL SIGNS: Please see below. Objective: GENERAL APPEARANCE: NAD HEENT: no scleral icterus, no JVD, EOMI CARDIOVASCULAR: S1S2 LUNGS: Rhonchi at the base bilaterally ABDOMEN: soft & not tender w palpitation MUSCULOSKELETAL: no cyanosis, no swelling INTEGUMENT: no generalized palor NEUROLOGICAL: cranial nerve function from 2-12 intact intact, follows commands, speech not dysarthric LABORATORY DATA: Please see below. IMAGING: [facility] NAME: MYLES BLACKWELL DATE OF : 1970 BUSINESS NUMBER: [id number] AGE: 49 SEX: F REPORT #: [id number] ROOM: [facility] TECHNOLOGIST: GUANAKITO DOCTOR: Mk Shen MD Ordered for Date&Time: 02/28/20 0974 cc: [~ rep ct ivnm] Service Date&Time: 02/28/202014 This report is in Signed status. Interpretation performed by [facility]. Thank you for having your radiology procedures performed at [facility] RADIOLOGY REPORT Date&Time printed: [~ rep prt dt last] [~ rep prt tm last] Page [address] of [address] [address] RADIOLOGY REPORT This report is in Signed status. Interpretation performed by [facility]. Thank you for having your radiology procedures performed at [facility] RADIOLOGY REPORT Date&Time printed: [~ rep prt dt last] [~ rep prt tm last] Page 1 of 1 It should also be noted that there appears to be abnormal signal surrounding the interbody cage at L3-L4 particularly in the L4 vertebral body. Finding may be related to abnormal motion and rotation of the cage coagulating bath operator. However it should be noted that the possibility of infection is not excluded in the setting. This report has been amended as of 02/28/2020 at 8:[address] Please replace the original report with this version. Electronically signed by: Sami Rm On 02/28/2020 21:03:31 PM DD: SAMI RM MD 02/28/202014 DT: DEMARIO 02/28/202102 DS: JULITO 02/28/202102 PROCEDURE INFORMATION: Exam: MR Lumbar Spine Without and With Contrast. Exam date and time: 02/28/2020 8:15 PM Age: 49 years old Clinical indication: Low back pain; Prior surgery; Surgery date: 6+ months; Surgery type: Fusion; Patient HX: Lbp HX abscess; Additional info: RO spidural abscess - per [facility] TECHNIQUE: Imaging protocol: Multiplanar magnetic resonance images of the lumbar spine without and with intravenous contrast. Contrast material: PROHANCE; Contrast volume: 9 ml; Contrast route: INTRAVENOUS (IV); COMPARISON: MRI-LS SPINE W/O FOLL WITH CON 06/26/2019 6:37 PM FINDINGS: Vertebrae: Normal alignment. Increased T2/stir weighted marrow signal read demonstrated in the L3, L4, and now involving the transitional vertebrae at L5. There has been interval posterior transfixation no extending from L3 through L5 lumbar vertebrae using transpedicular screws and metallic rods. Spinal cord: Normal signal. No cord compression. L1-L2: No significant disc disease. No significant spinal canal stenosis. No neural foraminal stenosis. L2-L3: There appears to be abnormal enhancement redemonstrated in the anterior aspect of the L2-L3 disc although partially obscured by the presence of extensive magnetic susceptibility artifact. There is a mild degenerative central spinal stenosis. L3-L4: Mild disc space narrowing at L3-L4. Status post bilateral laminectomy. No central canal stenosis. L4-L5: Disc space narrowing at L4-L5 status post bilateral laminectomy. No central spinal stenosis. There is an interbody fusion device demonstrated. L5-S1: No significant disc disease. No significant spinal canal stenosis. No neural foraminal stenosis. Soft tissues: Examination of the soft tissues demonstrates small amount of fluid tracking into the posterior paraspinal soft tissues at the L2-L3 level which appears to be surrounding the transpedicular screw heads bilaterally. There is also abnormal T2 weighted signal in the posterior paraspinal muscles likely postsurgical. No large well-defined fluid collection demonstrated. Other findings: Redemonstration of a transitional vertebrae which for the purposes of this examination in comparison to the prior examination will be designated L5, just above the last well-defined intervertebral disc. IMPRESSION: 1. Increased T2/stir weighted marrow signal read demonstrated in the L3, L4, and now involving the transitional vertebrae at L5. 2. There appears to be abnormal enhancement redemonstrated in the anterior aspect of the L2-L3 disc although partially obscured by the presence of extensive magnetic susceptibility artifact. There is a mild degenerative central spinal stenosis. 3. There has been interval posterior transfixation no extending from L3 through L5 lumbar vertebrae using transpedicular screws and metallic rods. 4. Examination of the soft tissues demonstrates small amount of fluid tracking into the posterior paraspinal soft tissues at the L2-L3 level which appears to be surrounding the transpedicular screw heads bilaterally. Electronically signed by: Sami Rm On 02/28/2020 20:58:22 PM DD: SAMI RM MD 02/28/202014 DT: DEMARIO 02/28/202057 DS: JULITO 02/28/202057 [~ rep ct labl] PROGNOSIS: Good ACTIVITY: [As tolerated]. DIET: Regular DISCHARGE PLAN: Home ITEMS TO FOLLOWUP ON ON OUTPATIENT: Follow-up with ID in 5-7 days DISCHARGE CONDITION: [Stable]. TIME SPENT ON DISCHARGE: Greater than 30 minutes. Vital Signs/I&Os Vital Signs Date Time Temp Pulse Resp B/P (MAP) Pulse Ox O2 Delivery O2 Flow Rate FiO2 02/29/20 14:00 99.2 69 17 123/82 (96) 98 Room Air I&O- Last 24 Hours up to 6 AM 02/29/20 06:00 Intake Total 1130 ml Output Total 625 ml Balance 505 ml Laboratory Data Labs 24H Laboratory Tests 2 02/29/20 05:52: 02/29/20 05:57: Immature Granulocyte % (Auto) 0.3, Neutrophils (%) (Auto) 48.4, Lymphocytes (%) (Auto) 40.0, Monocytes (%) (Auto) 7.3H, Eosinophils (%) (Auto) 3.2H, Basophils (%) (Auto) 0.8, Neutrophils # (Auto) 2.9, Lymphocytes # (Auto) 2.4, Monocytes # (Auto) 0.4, Eosinophils # (Auto) 0.2, Basophils # (Auto) 0.1, Nucleated Red Blood Cells % (auto) 0.0, Anion Gap 2L, Glomerular Filtration Rate > 60.0, Calcium Level 8.7, Magnesium Level 2.1, Total Bilirubin 0.5, Aspartate Amino Transf (AST/SGOT) 19, Alanine Aminotransferase (ALT/SGPT) 16, Alkaline Phosphatase 148H, Total Protein 7.1, Albumin 2.8L, Albumin/Globulin Ratio 0.7L CBC/BMP Laboratory Tests 02/29/20 05:57 Microbiology Microbiology 02/28/20 Gram Stain - Final, Resulted 02/28/20 Sputum Culture, Resulted Pending 02/27/20 Urine Culture - Final, Complete 02/27/20 Blood Culture - Preliminary, Resulted No growth after 24 hours . All specim... 02/27/20 Blood Culture - Preliminary, Resulted No Growth after 48 hours. All Specime... Discharge Medications Scheduled Aspirin (Aspirin EC) 81 Mg Tablet.dr, 81 MG PO DAILY, (Reported) Gabapentin (Gabapentin) 300 Mg Capsule, 300 MG PO TID, (Reported) Hydroxychloroquine Sulfate (Hydroxychloroquine Sulfate) 200 Mg Tablet, 200 MG PO QHS, (Reported) Levofloxacin (Levofloxacin) 500 Mg Tablet, 500 MG PO DAILY@06 Omeprazole (Omeprazole) 20 Mg Capsule.dr, 20 MG PO QHS, (Reported) Ondansetron HCl (Ondansetron HCl) 4 Mg Tablet, 4 MG PO BID, (Reported) Potassium Chloride (Potassium Chloride) 10 Meq Tab.er.prt, 10 MEQ PO BID, (Reported) Prednisone (Prednisone) 20 Mg Tablet, 20 MG PO BID Quetiapine Fumarate (Seroquel) 100 Mg Tablet, 100 MG PO QHS, (Reported) Sennosides/Docusate Sodium (Senexon-S 50-8.6 mg Tablet) 1 Each Tablet, 1 TAB PO BID, (Reported) Tiotropium [place] (Spiriva) 18 Mcg Cap.w.dev, 18 MCG INH DAILY Scheduled PRN Albuterol Sulfate (Ventolin Hfa) 18 Gm Hfa.aer.ad, 4 PUFF INH Q1HP PRN for SHORTNESS OF BREATH Hydroxyzine HCl (Hydroxyzine HCl) 25 Mg Tablet, 25 MG PO BID PRN for ANXIETY, (Reported) Promethazine HCl (Promethazine HCl) 25 Mg Tablet, 25 MG PO Q12H PRN for NAUSEA, (Reported) Miscellaneous Medications [Patient Comment] , (Reported) MED REC COMPLETED VIA EXTERNAL MED HISTORY, PREVIOUS CLINIC VISIT (02/06/2020) AND CALL TO PHARMACY Allergies Coded Allergies: vancomycin (Verified Allergy, Severe, 11/30/19) Penicillins (Verified Allergy, Intermediate, RASH, 11/30/19) Sulfa (Sulfonamide Antibiotics) (Verified Allergy, Intermediate, RASH, 11/30/19) trimethoprim (Verified Allergy, Intermediate, RASH, 11/30/19) tramadol (Verified Adverse Reaction, Intermediate, ITCHING, URINARY RETENTION, 11/30/19) ROLAN LARSON DO Feb 29, 2020 16:08
[2020-02-29 18:19] LABS: CHLAMYDIA DNA AMPLIFICATION NEGATIVE (NEGATIVE); GC DNA AMPLIFICATION NEGATIVE (NEGATIVE)
[2020-02-29] MEDS ORDERED: ADVAIR HFA 230/21MCG INHALER INH SCH (20:00)
[2020-02-29] MEDS ORDERED: QUEtiapine FUMARATE 100 MG TAB PO SCH (21:00)
== END 2020-02-29 18:10 | disposition home or self-care (01) ==
LOC: M ED 14:02 → M ED INP 14:03 → M MSPAV 02-28 14:54
PROVIDERS: ADMIT Internal Medicine; ATTEND Internal Medicine
DX: J44.1 Chronic obstructive pulmonary disease with (acute) exacerbation (principal); G93.41 Metabolic encephalopathy; R50.9 Fever, unspecified; A64 Unspecified sexually transmitted disease; I10 Essential (primary) hypertension; F17.218 Nicotine dependence, cigarettes, with other nicotine-induced disorders; Z79.82 Long term (current) use of aspirin; Z79.52 Long term (current) use of systemic steroids; Z79.899 Other long term (current) drug therapy; Z88.0 Allergy status to penicillin; Z88.1 Allergy status to other antibiotic agents; Z88.2 Allergy status to sulfonamides; Z88.5 Allergy status to narcotic agent
CPT/HCPCS: 36415; 71045; 71250; 72158; 74176; 80048; 80053; 81001; 82550; 82553; 83605; 83615; 83735; 84145; 85025; 85027; 85610; 85652; 85730; 86140; 86702; 87040; 87070; 87086; 87205; 87389; 87631; 87661; 93005; 93041; 94640; 96365; 96366; 96372; 96375; 96376; 99285; A9576; J0696; J1650; J1885; J1956; J2060; J2405

== ENCOUNTER → 2020-03-12 | Outpatient (REF) | payer OTHER ==
[~2020-03-12] MED LIST changes: +ASPI-161 PO; +CEFD1CAP8 PO; +LEVO500T3 PO; +POTA10TA17 PO; +PROM25TA12 PO; +SPIR1CAP INH; +VENTAER INH; +[UNRECOGNIZED DRUG - CODE] PO
[2020-03-12 15:47] LABS: BASO # 0.1 10^3/uL (0.0-0.2); BASO % 0.5 % (0.0-1.0); EOS # 0.3 10^3/uL (0.0-0.5); EOS % 2.5 % (0.0-3.0); HEMATOCRIT 47.6 % (36.0-47.0); LYMPH # 5.7 10^3/uL (1.5-5.0); MEAN CORPUSCULAR HEMOGLOBIN 27.5 pg (27.0-33.0); MEAN CORPUSCULAR HGB CONC 31.5 g/dl (32.0-36.5); MEAN CORPUSCULAR VOLUME 87.3 fl (80.0-96.0); MONO # 0.7 10^3/uL (0.0-0.8); MONO % 4.9 % (0.0-5.0); NEUTROPHILS % 50.7 % (36.0-66.0); PLATELET COUNT, AUTOMATED 421 10^3/uL (150-450); RED BLOOD COUNT 5.45 10^6/uL (4.00-5.40)
[2020-03-12 15:48] LABS: WHITE BLOOD COUNT 13.8 10^3/uL (4.0-10.0)
[2020-03-12 16:15] LABS: ERYTHROCYTE SEDIMENTATION RATE 2 mm/hr (0-20)
[2020-03-12 16:17] LABS: C REACTIVE PROTEIN QUANTITATIV 4.71 MG/DL (0.00-0.30); LDH LACTATE DEHYDROGENASE 203 U/L (84-246)
[2020-03-12 17:40] LABS: HIV 1&2 SCREEN CENTAUR NEGATIVE (NEGATIVE)
[2020-03-15 03:06] LABS: HIV-1 RNA PCR QUANT 2 LC550285 <20 copies/mL (.)
== END ==
LOC: M SFHCPLAZ 13:33
PROVIDERS: ATTEND Internal Medicine Infectious Disease
DX: R50.9 Fever, unspecified (principal); J18.9 Pneumonia, unspecified organism

== ENCOUNTER 2020-03-21 14:04 | Inpatient (IN) | payer OTHER ==
[~2020-03-21] VITALS: Ht 148.6 cm; Wt 46.3 kg
[~2020-03-21 14:04] MED LIST changes: -CLIN150C14 PO; +CLIN150C15 PO; +GABA-282 PO; -GABA-843 PO; +[UNRECOGNIZED DRUG - CODE] PO; -[UNRECOGNIZED DRUG - CODE] PO
[2020-03-21] MEDS ORDERED: ACETAMINOPHEN TAB 650MG DOSE (2X325MG) PO PRN (15:30)
[2020-03-21 16:00] VITALS: BP 142/96
[2020-03-21 16:30] LABS: HEMATOCRIT 45.3 % (36.0-47.0); HEMOGLOBIN 14.7 g/dl (12.0-15.5); MEAN CORPUSCULAR HEMOGLOBIN 27.6 pg (27.0-33.0); MEAN CORPUSCULAR HGB CONC 32.5 g/dl (32.0-36.5); MEAN CORPUSCULAR VOLUME 85.2 fl (80.0-96.0); PLATELET COUNT, AUTOMATED 303 10^3/uL (150-450); RED BLOOD COUNT 5.32 10^6/uL (4.00-5.40); WHITE BLOOD COUNT 13.7 10^3/uL (4.0-10.0)
--- NOTE | 2020-03-21 16:51 | HPEPDOC ---
General Date of Admission Mar 21, 2020 at 15:41 Date of Service: Mar 21, 2020 Chief Complaint The patient is a 49-year-old female admitted with a reason for visit of Epidural Abscess And Fever. 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 Patient stated that she developed severe low back pain with low-grade fever. Of note patient was treated 3 weeks ago for multifocal pneumonia treated with Omnicef and Levaquin. Recent MRI showed L2/ L3/L4 increased marrow signal abnormal enhancement. Patient was directly admitted from infectious diseases office. Home Medications Scheduled Aspirin (Aspirin EC) 81 Mg Tablet.dr, 81 MG PO DAILY, (Reported) Gabapentin (Gabapentin) 300 Mg Capsule, 300 MG PO TID, (Reported) Hydroxychloroquine Sulfate (Hydroxychloroquine Sulfate) 200 Mg Tablet, 200 MG PO QHS, (Reported) Levofloxacin (Levofloxacin) 500 Mg Tablet, 500 MG PO DAILY@06 Omeprazole (Omeprazole) 20 Mg Capsule.dr, 20 MG PO QHS, (Reported) Ondansetron HCl (Ondansetron HCl) 4 Mg Tablet, 4 MG PO BID, (Reported) Potassium Chloride (Potassium Chloride) 10 Meq Tab.er.prt, 10 MEQ PO BID, (Reported) Prednisone (Prednisone) 20 Mg Tablet, 20 MG PO BID Quetiapine Fumarate (Seroquel) 100 Mg Tablet, 100 MG PO QHS, (Reported) Sennosides/Docusate Sodium (Senexon-S 50-8.6 mg Tablet) 1 Each Tablet, 1 TAB PO BID, (Reported) Tiotropium [place] (Spiriva) 18 Mcg Cap.w.dev, 18 MCG INH DAILY Scheduled PRN Albuterol Sulfate (Ventolin Hfa) 18 Gm Hfa.aer.ad, 4 PUFF INH Q1HP PRN for SHORTNESS OF BREATH Hydroxyzine HCl (Hydroxyzine HCl) 25 Mg Tablet, 25 MG PO BID PRN for ANXIETY, (Reported) Promethazine HCl (Promethazine HCl) 25 Mg Tablet, 25 MG PO Q12H PRN for NAUSEA, (Reported) Miscellaneous Medications [Patient Comment] , (Reported) MED REC COMPLETED VIA EXTERNAL MED HISTORY, PREVIOUS CLINIC VISIT (02/06/2020) AND CALL TO PHARMACY Allergies Coded Allergies: vancomycin (Verified Allergy, Severe, 11/30/19) Penicillins (Verified Allergy, Intermediate, RASH, 11/30/19) Sulfa (Sulfonamide Antibiotics) (Verified Allergy, Intermediate, RASH, 11/30/19) trimethoprim (Verified Allergy, Intermediate, RASH, 11/30/19) tramadol (Verified Adverse Reaction, Intermediate, ITCHING, URINARY RETENTION, 11/30/19) Past Medical History Medical History HX IVDU 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 IRMA DAVIS AT [facility] MRI 06/26/19 WITH DISC VERTEBRAL OSTEOMYELITIS AT L3-L4 L2-L3 WITH EPIDURAL ABSCESS MEASURING 7 X 2 X 19 MM WITH ANTERIOR EPIDURAL INFLAMMATORY CHANGES FROM L3-L4 BILATERAL PSOAS ABSCESS FROM L2-L5 TRANSESOPHAGEAL ECHOCARDIOGRAM WITH PEDIATRIC PROBE SHOWED A TRICUSPID VALVE VEGETATION 0.4X 0.7 CM WITH MODERATE TRICUSPID REGURGITATION AT [facility] DR SHRUTHI CASTELLANOS Surgical History C-SECTIONS GALL BLADDER HERNIA BACK AND NECK SURGERY Family History DENIES FH OF SKIN CANCER OR MELANOMA. Social History * Smoker: current smoker Alcohol: Denies Drugs: IV drug use A-FIB/CHADSVASC A-FIB History Current/History of A-Fib/PAF?: No Current PO Anticoag Therapy: No Review of Systems Constitutional: Reports: Chills, Fever, Malaise Eyes: Denies: Pain ENT: Denies: Head Aches Skin: Denies: Rash Pulmonary: Denies: Dyspnea Cardiovascular: Denies: Chest Pain Gastrointestinal: Denies: Nausea, Vomiting Genitourinary: Denies: Frequency Hematologic: Denies: Bruising Endocrine: Denies: Polydipsia Musculoskeletal: Reports: Back Pain Neurological: Denies: Weakness Psych: Reports: Mood Normal Physical Examination General Exam: Positive: Alert, Cooperative Eye Exam: Positive: PERRLA ENT Exam: Positive: Atraumatic Neck Exam: Positive: Supple; Negative: JVD Chest Exam: Positive: Clear to auscultation Heart Exam: Positive: Rate Normal Telemetry: Positive: No significant arrhythmia Abdomen Exam: Positive: Normal bowel sounds Extremity Exam: Negative: Clubbing Skin Exam: Negative: Rash Neuro Exam: Positive: Strength at 5/5 X4 ext, Cranial Nerves 3-12 NL, Other (area of L2 /L3/L4 tender) Psych Exam: Positive: Mental status NL Laboratory Data Labs 24H Laboratory Tests 2 03/21/20 16:03: Microbiology Microbiology 03/21/20 Respiratory Virus Panel (PCR) ([facility]), Received Pending Assessment/Plan Patient is a 49-year-old with a history of sternoclavicular osteomyelitis, recent epidural abscess, 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 Patient stated that she developed severe low back pain with low-grade fever. Of note patient was treated 3 weeks ago for multifocal pneumonia treated with Omnicef and Levaquin. Recent MRI showed L2/ L3/L4 increased marrow signal abnormal enhancement. Patient was directly admitted from infectious diseases office Problems (1) Sepsis Status: Acute Problem Text: Patient has low grade fever There is concern for possible sepsis given history of IV drug abuse, epidural abscess, history of endocarditis CBC, BMP, blood culture, procalcitonin CT abdomen/pelvis/chest Cefepime IV (2) Substance abuse Status: Acute Problem Text: Urine toxic screen (3) Chronic low back pain Status: Chronic Problem Text: Patient has a history of epidural abscess She has a continuous back pain Previous MRI from 02/28/20 concern for epidural abscess and showed 1. Increased T2/stir weighted marrow signal read demonstrated in the L3, L4, and now involving the transitional vertebrae at L5. 2. There appears to be abnormal enhancement redemonstrated in the anterior aspect of the L2-L3 disc although partially obscured by the presence of extensive magnetic susceptibility artifact. Appreciate/agree with ID consult (4) History of endocarditis Status: Resolved Problem Text: Patient completed course of antibiotics Low-grade fever and possible IV drug abuse concern for acute endocarditis We'll proceed with echo Plan / VTE VTE Prophylaxis Ordered?: Yes ROLAN LARSON DO Mar 21, 2020 16:51
[2020-03-21 16:57] LABS: ALBUMIN 4.3 GM/DL (3.2-5.2); ALT/SGPT 20 U/L (12-78); BILIRUBIN,TOTAL 0.4 MG/DL (0.2-1.0); BLOOD UREA NITROGEN 8 MG/DL (7-18); CALCIUM LEVEL 9.5 MG/DL (8.5-10.1); CARBON DIOXIDE LEVEL 27 MEQ/L (21-32); CHLORIDE LEVEL 105 MEQ/L (98-107); GLOMERULAR FILTRATION RATE > 60.0 (>58); GLUCOSE, FASTING 80 MG/DL (70-100); POTASSIUM SERUM 3.9 MEQ/L (3.5-5.1); SODIUM LEVEL 139 MEQ/L (136-145); TOTAL PROTEIN 8.2 GM/DL (6.4-8.2)
[2020-03-21] MEDS: CEFEPIME HCL 2 GM in D5W 50 ML IV SCH ×2 (17:00→17:25)
[2020-03-21] MEDS ORDERED: MELO15TA28 PO (17:03)
[2020-03-21] MEDS ORDERED: VENTAER INH (17:03)
[2020-03-21] MEDS ORDERED: HYDR50TA70 PO (17:03)
[2020-03-21] MEDS ORDERED: SUBO8MIS SL (17:03)
[2020-03-21] MEDS ORDERED: ONDA-83 PO (17:03)
[2020-03-21] MEDS ORDERED: PROM25TA12 PO (17:03)
[2020-03-21] MEDS ORDERED: HYDR-3782 PO (17:03)
[2020-03-21] MEDS ORDERED: QUET1TAB10 PO (17:03)
[2020-03-21] MEDS ORDERED: VENL150C43 PO (17:03)
[2020-03-21] MEDS ORDERED: SENN-23 PO (17:03)
[2020-03-21] MEDS ORDERED: DICY10CA13 PO (17:03)
[2020-03-21] MEDS ORDERED: OMEP-221 PO (17:03)
[2020-03-21] MEDS ORDERED: ESTR0.5T3 PO (17:03)
[2020-03-21] MEDS ORDERED: GABA-282 PO (17:03)
[2020-03-21] MEDS: GASTROGRAFIN SOLUTION 30ML PO SCH ×2 (17:25→17:29)
[2020-03-21 17:49] LABS: C REACTIVE PROTEIN QUANTITATIV 1.41 MG/DL (0.00-0.30)
[2020-03-21 18:09] LABS: ERYTHROCYTE SEDIMENTATION RATE 10 mm/hr (0-20)
[2020-03-21] MEDS ORDERED: hydrOXYzine 50 MG TAB PO PRN (18:15)
[2020-03-21] MEDS ORDERED: PROMETHAZINE 25 MG TAB PO PRN (18:15)
[2020-03-21] MEDS ORDERED: SENOKOT S TAB PO PRN (18:15)
[2020-03-21] MEDS ORDERED: DICYCLOMINE 10 MG CAP PO PRN (18:15)
[2020-03-21] MEDS ORDERED: ALBUTEROL 90 MCG/ACT 8GM HFA INHALER INH PRN (18:15)
--- NOTE | 2020-03-21 19:32 | REPVR ---
PROCEDURE INFORMATION: Exam: CT Abdomen And Pelvis Without Contrast Exam date and time: 03/21/2020 6:08 PM Age: 49 years old Clinical indication: Other: Sepsis TECHNIQUE: Imaging protocol: Computed tomography of the abdomen and pelvis without contrast. Radiation optimization: All CT scans at this facility use at least one of these dose optimization techniques: automated exposure control; mA and/or kV adjustment per patient size (includes targeted exams where dose is matched to clinical indication); or iterative reconstruction. COMPARISON: CT ABD PELVIS W/O CONTRAST 02/27/2020 5:23 PM FINDINGS: Lungs: The lung bases are unremarkable. Liver: There are no focal liver lesions. Gallbladder and bile ducts: Cholecystectomy. Pancreas: Pancreas is poorly assessed. Spleen: The spleen is normal. Adrenal glands: The right adrenal gland is unremarkable. The left adrenal gland is mildly prominent without focal mass identified. Kidneys and ureters: Kidneys are stable appearance without calculi or hydronephrosis. Stomach and bowel: There is no evidence of intestinal obstruction. No pericolonic inflammation is detected. There is a large volume of stool in the colon. Appendix: No evidence of appendicitis. Intraperitoneal space: Unremarkable. No free air. No significant fluid collection. Vasculature: Absence of intravenous contrast limits evaluation of vascular and visceral structures. There is no evidence of an infrarenal abdominal aortic aneurysm. There is mild atherosclerotic calcification. Lymph nodes: Unremarkable. No enlarged lymph nodes. Urinary bladder: The bladder is unremarkable. Reproductive: Hysterectomy. Bones/joints: Degeneration is seen in both sacroiliac joints. Posterior hardware fusion is again noted at the L3 through L5 levels with a disc spacer at L3-L4 and posterior decompression of the spinal canal. The L3 vertebral body appear sclerotic as at time of prior imaging. There also appears to be sclerosis of the superior endplate L4. There does not yet appear to be complete fusion across the L3-L4 L4-L5 disc spaces. There is increased density in the overlying soft tissues. Soft tissues: Surgical clips in right inguinal region likely due to hernia repair. IMPRESSION: No obvious evidence inflammatory process in the abdomen or pelvis however evaluation is limited due to lack of intravenous contrast. Soft tissue detail in the region of the lumbar spine surgery is limited due to hardware artifact and lack of intravenous contrast. Electronically signed by: Lani Allen On 03/21/2020 19:31:52 PM
--- NOTE | 2020-03-21 19:40 | REPVR ---
PROCEDURE INFORMATION: Exam: CT Chest Without Contrast; Diagnostic Exam date and time: 03/21/2020 4:21 PM Age: 49 years old Clinical indication: Other: Sepsis TECHNIQUE: Imaging protocol: Diagnostic computed tomography of the chest without contrast. Radiation optimization: All CT scans at this facility use at least one of these dose optimization techniques: automated exposure control; mA and/or kV adjustment per patient size (includes targeted exams where dose is matched to clinical indication); or iterative reconstruction. COMPARISON: CT Chest without contrast 02/27/2020 5:23 PM FINDINGS: Lungs: There is no focal lung consolidation. There are vague patchy peripheral areas of ground-glass attenuation in the right upper lobe and to lesser degree left upper lobe and left perihilar most likely due to mild subsegmental atelectasis. Pleural space: No pleural effusion or pneumothorax. Heart: No cardiomegaly. No pericardial effusion. Aorta: No aneurysmal dilatation of thoracic aorta. Minimal atherosclerotic calcification. Lymph nodes: In there is no significant mediastinal lymphadenopathy. The sami are not well assessed on this noncontrast study. Bones/joints: There is been anterior cervical fusion. There are no further significant skeletal findings. Soft tissues: Unremarkable. IMPRESSION: There is minimal peripheral ground-glass attenuation which is most likely due to mild subsegmental atelectasis. The most prominent area is anteriorly in the right upper lobe series 204, images 31-33, series 203 images 21 -24. This less likely is due to early pneumonia. Electronically signed by: Lani Allen On 03/21/2020 19:40:11 PM
[2020-03-21 20:00] VITALS: BP 125/89
[2020-03-21] MEDS: ONDANSETRON 4 MG TAB PO PRN (20:43)
[2020-03-21] MEDS: GABAPENTIN 300 MG CAP PO SCH (20:43)
[2020-03-21] MEDS ORDERED: HYDROXYCHLOROQUINE 200 MG TAB PO SCH (21:00)
[2020-03-21] MEDS: BUPRENORPHINE/NALOXONE 8-2MG SUBLINGUAL TABLET(SUBOXONE) SL SCH (21:00)
[2020-03-21] MEDS: SENOKOT S TAB PO SCH (21:00)
[2020-03-21] MEDS ORDERED: LORazepam 1 MG TAB PO ONE (23:00)
[2020-03-21] MEDS: QUEtiapine FUMARATE 50 MG TAB PO SCH (23:01)
[2020-03-21] MEDS: VENLAFAXINE **XR** 75MG CAPSULE PO SCH (23:02)
[2020-03-21] MEDS ORDERED: ISOVUE-370 76% 100ML VIAL As Ordered ONE (23:09)
[2020-03-21] MEDS: KETOROLAC TROMETHAMINE 10 MG TAB PO PRN (23:27)
[2020-03-22] VITALS: BP 117/67
[2020-03-22 04:00] VITALS: BP 130/90
[2020-03-22 05:27] LABS: HEMATOCRIT 44.6 % (36.0-47.0); HEMOGLOBIN 14.1 g/dl (12.0-15.5); MEAN CORPUSCULAR HEMOGLOBIN 27.2 pg (27.0-33.0); MEAN CORPUSCULAR HGB CONC 31.6 g/dl (32.0-36.5); MEAN CORPUSCULAR VOLUME 86.1 fl (80.0-96.0); PLATELET COUNT, AUTOMATED 282 10^3/uL (150-450); RED BLOOD COUNT 5.18 10^6/uL (4.00-5.40); WHITE BLOOD COUNT 9.1 10^3/uL (4.0-10.0)
[2020-03-22 06:16] LABS: ALBUMIN 3.1 GM/DL (3.2-5.2); ALT/SGPT 14 U/L (12-78); BILIRUBIN,TOTAL 0.4 MG/DL (0.2-1.0); BLOOD UREA NITROGEN 8 MG/DL (7-18); CALCIUM LEVEL 8.8 MG/DL (8.5-10.1); CARBON DIOXIDE LEVEL 30 MEQ/L (21-32); CHLORIDE LEVEL 106 MEQ/L (98-107); CREATININE FOR GFR 0.89 MG/DL (0.55-1.30); GLOMERULAR FILTRATION RATE > 60.0 (>58); GLUCOSE, FASTING 82 MG/DL (70-100); MAGNESIUM LEVEL 2.4 MG/DL (1.8-2.4); POTASSIUM SERUM 4.3 MEQ/L (3.5-5.1); SODIUM LEVEL 142 MEQ/L (136-145); TOTAL PROTEIN 6.2 GM/DL (6.4-8.2)
[2020-03-22 08:00] VITALS: BP 113/90
[2020-03-22] MEDS: BUPRENORPHINE/NALOXONE 8-2MG SUBLINGUAL TABLET(SUBOXONE) SL SCH ×2 (08:05→20:42)
[2020-03-22] MEDS: GABAPENTIN 300 MG CAP PO SCH ×3 (08:05→20:41)
[2020-03-22] MEDS: KETOROLAC TROMETHAMINE 10 MG TAB PO PRN ×3 (08:05→21:56)
[2020-03-22] MEDS: SENOKOT S TAB PO SCH ×3 (08:06→21:00)
[2020-03-22] MEDS: ENOXAPARIN 40MG/0.4ML SYRINGE (J1650 PER 10MG) SC SCH (08:06)
[2020-03-22] MEDS: DOXYCYCLINE HYCLATE 100MG TABLET PO SCH ×2 (09:54→20:41)
[2020-03-22] MEDS ORDERED: LORazepam 1 MG TAB PO ONE (10:15)
[2020-03-22 12:00] VITALS: BP 155/85
[2020-03-22] MEDS ORDERED: LIDOCAINE 1% MDV 20ML VIAL As Ordered ONE (13:53)
--- NOTE | 2020-03-22 14:02 | REPVR ---
PROCEDURE INFORMATION: Exam: MR Lumbar Spine Without Contrast. Exam date and time: 03/22/2020 1:10 PM Age: 49 years old Clinical indication: Low back pain and other: Lumbar abcess; Prior surgery; Surgery date: 6+ months TECHNIQUE: Imaging protocol: Multiplanar magnetic resonance images of the lumbar spine without intravenous contrast. COMPARISON: 1. MRI-LS SPINE W/O FOLL WITH CON 02/28/2020 7:[address] ABD PELVIS W/O CONTRAST 03/21/2020 6:22:34 PM FINDINGS: Limitations: The study is moderately limited due to patient motion artifact and surgical hardware artifact Vertebrae: No acute compression fracture is seen. Posterior pedicle screw and elizabeth fixation is present at L3 through L5. Decompressive laminectomies are noted at the L3 and L4 levels. There is minimal retrolisthesis of L2 on L3. Spinal cord: The conus medullaris terminates at the L1 level. There is no evidence of arachnoiditis or cauda equina compression. L1-L2: No significant disc disease. No significant spinal stenosis or neural foraminal narrowing. L2-L3: There is mild diffuse circumferential disc bulging, thickening of the ligamentum flavum, and facet arthropathy. This is causing mild spinal canal stenosis. There is no significant neural foraminal narrowing. L3-L4: Posterior fusion is present. The spinal canal and neural foramina are widely patent. L4-L5: Posterior fusion is present. The spinal canal and neural foramina are widely patent. L5-S1: A hypoplastic disc is present. There is no spinal canal or neural foraminal stenosis. Soft tissues: Mild edema is present in the posterior paraspinous musculature and subcutaneous soft tissues. IMPRESSION: 1. Moderately limited exam due to motion artifact and artifact from surgical hardware. 2. Stable postoperative and degenerative changes of the lumbar spine Electronically signed by: Bertin Ball On 03/22/2020 14:02:03 PM
--- NOTE | 2020-03-22 15:51 | IPNPDOC ---
Text Note Date of Service The patient was seen on 03/22/20. NOTE Subjective: No any acute events overnight. Patient continues to complain of low back pain. 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 Patient stated that she developed severe low back pain with low-grade fever. Of note patient was treated 3 weeks ago for multifocal pneumonia treated with Omnicef and Levaquin. Recent MRI showed L2/ L3/L4 increased marrow signal abnormal enhancement. Patient was directly admitted from infectious diseases office Problems (1) Sepsis to rule out Patient doesn't have leukocytosis, procalcitonin negative Patient afebrile DC antibiotics (2) Substance abuse Urine toxic screen (3) Chronic low back pain Patient has a history of epidural abscess She has a continuous back pain Previous MRI from 02/28/20 concern for epidural abscess and showed 1. Increased T2/stir weighted marrow signal read demonstrated in the L3, L4, and now involving the transitional vertebrae at L5. 2. There appears to be abnormal enhancement redemonstrated in the anterior aspect of the L2-L3 disc although partially obscured by the presence of extensive magnetic susceptibility artifact. Repeated MRI today negative for abscess or discitis Appreciate/agree with ID consult (4) History of endocarditis Patient completed course of antibiotics Low-grade fever and possible IV drug abuse concern for acute endocarditis echo report pending VS,Petra, I+O VS, Petra, I+O Laboratory Tests 03/21/20 16:15 03/22/20 04:43 Vital Signs Date Time Temp Pulse Resp B/P (MAP) Pulse Ox O2 Delivery O2 Flow Rate FiO2 03/22/20 15:08 85 18 96 Room Air 03/22/20 14:24 96.9 03/22/20 12:00 155/85 (108) I&O- Last 24 Hours up to 6 AM 03/22/20 06:00 Intake Total 600 ml Output Total 1000 ml Balance -400 ml ROLAN LARSON DO Mar 22, 2020 15:51
[2020-03-22 16:00] VITALS: BP 140/89
[2020-03-22] MEDS ORDERED: SODIUM CHLORIDE 0.9% INJ 10 ML SYR IV PRN (16:15)
[2020-03-22] MEDS: SODIUM CHLORIDE 0.9% INJ 10 ML SYR IV SCH (17:17)
--- NOTE | 2020-03-22 17:49 | REP ---
PROCEDURE NAME: MIDLINE INSERTION W/ SITERITE CLINICAL INFORMATION: poor peripheral access. COMPARISON: None. PROCEDURE DESCRIPTION: The procedure was performed by ALEXYS Alvarado, under the direct supervision of Dr. Ramirez. The risks and benefits of the procedure were explained to the patient and an informed consent was obtained both verbally and written. Directly prior to the start of the procedure a formal time-out was completed in the procedure room. The left medial brachial vein was localized using ultrasound guidance. The skin was prepped and draped in sterile fashion. One mL of 1% lidocaine 10 mg/mL was used as a local anesthetic. Using ultrasound guidance the left medial brachial vein was cannulated, and a 0.018 guidewire was inserted. The needle was removed and a 5.5 [place] dilator and peel-away sheath was inserted over the guidewire. A 5.5 [place] dual lumen catheter was cut to a length of 7 cm. The dilator was removed and the catheter was inserted over the guidewire. The peel-away sheath was removed and the catheter was flushed with heparinized saline as per hospital protocol. The catheter was affixed to the skin and a sterile dressing was applied. The patient tolerated the procedure well and there were no immediate complications. CONCLUSION: Mid line insertion into the left medial brachial vein. <Electronically signed by Mary Bryant > 03/22/20 1601 <Electronically signed by Josué Ramirez > 03/22/20 [id number]
[2020-03-22 20:00] VITALS: BP 132/87
[2020-03-22] MEDS: QUEtiapine FUMARATE 50 MG TAB PO SCH (20:41)
[2020-03-22] MEDS: VENLAFAXINE **XR** 75MG CAPSULE PO SCH (20:42)
[2020-03-22] MEDS: ONDANSETRON 4 MG TAB PO PRN (20:51)
[2020-03-22] MEDS ORDERED: LORazepam 0.5 MG TAB PO ONE (21:30)
[2020-03-23 04:00] VITALS: BP 120/77
[2020-03-23] MEDS: SODIUM CHLORIDE 0.9% INJ 10 ML SYR IV SCH (05:46)
[2020-03-23 08:00] VITALS: BP 115/73
[2020-03-23 08:18] VITALS: BP 118/80
[2020-03-23] MEDS: ENOXAPARIN 40MG/0.4ML SYRINGE (J1650 PER 10MG) SC SCH (09:00)
--- NOTE | 2020-03-23 09:53 | REP ---
INDICATION: Fall COMPARISON: 03/30/2017. TECHNIQUE: Three views right shoulder. FINDINGS: There is no evidence of acute fracture, dislocation, or intrinsic bone disease. IMPRESSION: No fracture or dislocation. <Electronically signed by Josué Ramirez > 03/23/20 [id number]
--- NOTE | 2020-03-23 09:57 | REP ---
INDICATION: Fall. COMPARISON: 02/23/2012. TECHNIQUE: Seven views cervical spine performed. FINDINGS: There is again evidence of prior anterior cervical discectomy and fusion at C5 through C7 with anterior metallic plate and multiple screws bridging those levels anteriorly, with intervening disc spacers at C5-6 and C6-7. Alignment is unchanged. There is no prevertebral soft tissue swelling. No acute fracture or dislocation is seen. There is mild spurring at the anterior inferior aspect of C4. There is straightening of the normal cervical lordosis which could indicate spasm. There may be slight neural foraminal narrowing at C5-6 and C6-7. IMPRESSION: Prior anterior cervical discectomy and fusion at C5 through C7. No acute fracture visualized. No malalignment. Straightening of the normal cervical lordosis may indicate muscle spasm. <Electronically signed by Josué Ramirez > 03/23/20 [id number]
[2020-03-23] MEDS ORDERED: NICOTINE 21MG/24HR 1 EA TRANSDERMAL TD PRN (10:30)
[2020-03-23] MEDS: GABAPENTIN 300 MG CAP PO SCH (11:02)
[2020-03-23] MEDS: BUPRENORPHINE/NALOXONE 8-2MG SUBLINGUAL TABLET(SUBOXONE) SL SCH (11:02)
[2020-03-23] MEDS: SENOKOT S TAB PO SCH (11:02)
[2020-03-23] MEDS: DOXYCYCLINE HYCLATE 100MG TABLET PO SCH (11:02)
[2020-03-23] MEDS: ONDANSETRON 4 MG TAB PO PRN (11:15)
--- NOTE | 2020-03-23 15:45 | DS.PDOC ---
Discharge Summary General Date of Admission Mar 21, 2020 at 15:41 Date of Discharge 03/23/20 Discharge Summary PROCEDURES PERFORMED DURING STAY: [None]. ADMITTING DIAGNOSES: Sepsis to rule out Substance abuse Chronic low back pain History of endocarditis DISCHARGE DIAGNOSES: Substance abuse Chronic low back pain History of endocarditis COMPLICATIONS/CHIEF COMPLAINT: Epidural Abscess And Fever. 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 Patient stated that she developed severe low back pain with low-grade fever. Of note patient was treated 3 weeks ago for multifocal pneumonia treated with Omnicef and Levaquin. Recent MRI showed L2/ L3/L4 increased marrow signal abnormal enhancement. Patient was directly admitted from infectious diseases office Problems (1) Sepsis to rule out Patient doesn't have leukocytosis, procalcitonin negative Patient afebrile DC antibiotics (2) Substance abuse Urine toxic screen (3) Chronic low back pain Patient has a history of epidural abscess She has a continuous back pain Previous MRI from 02/28/20 concern for epidural abscess and showed 1. Increased T2/stir weighted marrow signal read demonstrated in the L3, L4, and now involving the transitional vertebrae at L5. 2. There appears to be abnormal enhancement redemonstrated in the anterior aspect of the L2-L3 disc although partially obscured by the presence of extensive magnetic susceptibility artifact. Repeated MRI today negative for abscess or discitis (4) History of endocarditis Patient completed course of antibiotics echo report pending DISCHARGE MEDICATIONS: Please see below. ALLERGIES: Please see below. PHYSICAL EXAMINATION ON DISCHARGE: VITAL SIGNS: Please see below. GENERAL APPEARANCE: NAD HEENT: no scleral icterus, no JVD, EOMI CARDIOVASCULAR: S1S2 LUNGS: CTA ABDOMEN: soft & not tender w palpitation MUSCULOSKELETAL: no cyanosis, no swelling INTEGUMENT: no generalized palor Back: tenderness over lumbar spine NEUROLOGICAL: cranial nerve function from 2-12 intact intact, follows commands, speech not dysarthric LABORATORY DATA: Please see below. IMAGING: See above PROGNOSIS: Fair ACTIVITY: [As tolerated]. DIET: Cardiac DISPOSITION: 01 Home, Self-Care. ITEMS TO FOLLOWUP ON ON OUTPATIENT: Follow-up with DISCHARGE CONDITION: [Stable]. TIME SPENT ON DISCHARGE: Greater than 40 minutes. Vital Signs/I&Os Vital Signs Date Time Temp Pulse Resp B/P (MAP) Pulse Ox O2 Delivery O2 Flow Rate FiO2 03/23/20 08:18 90 118/80 (93) 03/23/20 08:00 96.9 16 97 Room Air I&O- Last 24 Hours up to 6 AM 03/23/20 05:59 Intake Total 1500 ml Output Total 1500 ml Balance 0 ml Microbiology Microbiology 03/22/20 Blood Culture - Preliminary, Resulted No growth after 24 hours . All specim... 03/21/20 Blood Culture - Preliminary, Resulted No growth after 24 hours . All specim... 03/21/20 Blood Culture - Preliminary, Resulted No growth after 24 hours . All specim... 03/21/20 Respiratory Virus Panel (PCR) ([facility]) - Final, Complete Discharge Medications Scheduled Buprenorphine HCl/Naloxone HCl (Suboxone 8 mg-2 mg Sl Film) 1 Each Film, 1 STRIP SL BID, (Reported) Estradiol (Estrace) 0.5 Mg Tablet, 0.5 MG PO QHS, (Reported) Gabapentin (Gabapentin) 300 Mg Capsule, 300 MG PO TID, (Reported) Hydroxychloroquine Sulfate (Hydroxychloroquine Sulfate) 200 Mg Tablet, 200 MG PO QHS, (Reported) Meloxicam (Meloxicam) 15 Mg Tablet, 15 MG PO DAILY, (Reported) Omeprazole (Omeprazole) 40 Mg Capsule.dr, 40 MG PO QHS, (Reported) Quetiapine Fumarate (Quetiapine Fumarate) 300 Mg Tablet, 150 MG PO QHS, (Reported) Venlafaxine HCl (Venlafaxine HCl ER) 150 Mg Cap.er.24h, 150 MG PO QHS, (Reported) Scheduled PRN Albuterol Sulfate (Ventolin Hfa) 18 Gm Hfa.aer.ad, 2 PUFF INH Q6H PRN for SOB/WHEEZING, (Reported) Dicyclomine HCl (Dicyclomine HCl) 10 Mg Capsule, 10 MG PO TID PRN for ABDOMINAL PAIN, (Reported) Hydroxyzine HCl (Hydroxyzine HCl) 50 Mg Tablet, 50 MG PO BID PRN for ANXIETY, (Reported) Ondansetron HCl (Ondansetron HCl) 4 Mg Tablet, 4 MG PO QID PRN for NAUSEA OR VOMITING, (Reported) Promethazine HCl (Promethazine HCl) 25 Mg Tablet, 25 MG PO Q12H PRN for NAUSEA OR VOMITING, (Reported) Sennosides/Docusate Sodium (Senna-S Tablet) 1 Each Tablet, 1 TAB PO BID PRN for CONSTIPATION, (Reported) Allergies Coded Allergies: vancomycin (Verified Allergy, Severe, 11/30/19) Penicillins (Verified Allergy, Intermediate, RASH, 11/30/19) Sulfa (Sulfonamide Antibiotics) (Verified Allergy, Intermediate, RASH, 11/30/19) trimethoprim (Verified Allergy, Intermediate, RASH, 11/30/19) tramadol (Verified Adverse Reaction, Intermediate, ITCHING, URINARY RETE NTION, 11/30/19) ROLAN LARSON DO Mar 23, 2020 15:45
--- NOTE | 2020-03-24 15:58 | CR ---
CONSULTATION DATE: 03/22/2020 TIME: 6:30 p.m. REASON FOR CONSULTATION: I was asked to consult by Dr. Lawler for evaluation of fever and previous history of endocarditis. 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 The patient was seen in my office stating that she was having fevers up to 100.3, more swelling of the left AC joint and severe back pain, 7/10 which felt like when she had the epidural abscess. She had been previously treated for pneumonia in February with a course of Omnicef and then Levaquin and was hospitalized for 48 hours. Her cough had improved as well as her shortness of breath but she had nonspecific nausea, was not taking her doxycycline routinely and was having back pain. She denied using any IV drugs for over three months. She did not have any new rashes. PAST MEDICAL HISTORY: 1. IV drug abuse. 2. Endocarditis, MRSA with septic emboli to the lungs and left AC joint infection, hospitalized for one month on March 30, 2019. 3. Depression, follows at [facility] and has counseling. 4. Insomnia. 5. Hepatitis C antibody positive in April of 2019 but hep C RNA negative with spontaneous remission 6. Gastroesophageal reflux disease. 7. 06/24/2019, epidural abscess with recurrent MRSA bacteremia, status post I&D done by Dr. Marino. 8. Cine MRI showed disc vertebral osteomyelitis at L2, 3 and 4 with epidural abscess. 9. Bilateral psoas abscesses. 10. Transesophageal echocardiogram with pediatric probe showed a vegetation of 0.4 x 0.7 cm with moderate tricuspid regurgitation at [facility] done by Dr. Demetrice Agosto. 11. Trichomonas vaginitis. ALLERGIES: PENICILLIN CAUSES HIVES, BACTRIM HIVES, VANCOMYCIN, SHE HAD HIVES DURING THE HOSPITALIZATION BUT EVENTUALLY WAS DIAGNOSED WITH VASCULITIS AND UNLIKELY TO BE A VANCOMYCIN ALLERGY. PAST SURGICAL HISTORY: 1. section. 2. Gallbladder, hernia surgery. 3. Back and neck surgery done by Dr. Minor in 2014. 4. Epidural abscess drainage in June, by Dr. Marino. FAMILY HISTORY: Nonrevealing. SOCIAL HISTORY: She lives alone. She has two children. She is . She smokes cigarettes, uses IV Chantel but not in the past three months. SEXUAL HISTORY: She had one partner in the past month and is not currently with him. MEDICATIONS: 1. Gabapentin 300 mg p.o. t.i.d. 2. Plaquenil 200 mg p.o. q.h.s. which the patient has not been taking. 3. Senokot one tablet p.o. b.i.d. 4. Cefepime 2 gm IV q.12 hours was written for but not given as patient had no access and I discontinued that. 5. Seroquel 100 mg p.o. q.h.s. 6. Advair two puffs inhaled b.i.d. LABORATORY DATA: 03/22, white count is 9.1, 03/21 was 13.7, hemoglobin 14.1, hematocrit 44,6, platelets 282, ESR 10. Sodium 142, potassium 4.3, chloride 106, bicarb 30, BUN 8, creatinine 0.89, glucose 82, calcium 8.8, magnesium 2.4, AST 16, ALT 14, alk phos 120. CRP 1.41, total protein 6.2, albumin 3.1, procalcitonin less than 0.05. Urinalysis had +3 leukocyte esterase, 23 white cells, 12 red cells. MRSA screen was negative. Blood cultures, March 21, two sets were no growth after 48 hours. March 22, cultures pending. Respiratory panel, [employer] was negative. IMAGING: CT, abdomen and pelvis done on March 21: No focal lesions, cholecystectomy, pancreas poorly assessed. Spleen is normal. No obvious inflammatory process in the abdomen or pelvis. Limited by lack of IV contrast. Hardware artifact at the lumbar spine. CT, chest: No significant mediastinal adenopathy, minimal peripheral ground-glass attenuation which is most likely due to subsegmental atelectasis, less likely to be pneumonia. Lumbar spine MRI done on March 22: No acute compression fractures, moderately limited exam due to motion artifact, stable postoperative changes and degenerative changes of the lumbar spine, mild edema in the posterior paraspinal musculature and subcutaneous tissue. Mild canal stenosis at L2-L3. PHYSICAL EXAMINATION: She is a pleasant female in no acute distress, walking around the room. Temperature is 97.1, pulse 91, respirations 20, blood pressure 140/89, O2 sat 94% on room air. The patient has remained afebrile throughout this hospitalization with temperature less than 99. Heart: Normal S1, S2 with holosystolic murmur II/ heard at the right upper sternal border. Lungs are clear, no wheezing, rales or rhonchi. Abdomen: Soft, nontender, no hepatosplenomegaly. Right upper quadrant scar. Skin: Multiple hypopigmented scars, all well healed on abdomen, back. Neurologic exam: Normal. Motor strength normal. IMPRESSION: This is a 49-year-old female admitted with recurrent fever and severe low back pain, concerning for epidural abscess. She has a history of MRSA endocarditis in March of 2019, epidural abscess, status post drainage procedure in June of 2019. So far, workup has been pretty unrevealing including CT of abdomen and pelvis. Lumbar spine MRI although limited by lack of contrast but with normal inflammatory markers including ESR less than 20 and a CRP of 1.4 to slightly elevated makes this very unlikely that we will be an infectious problem. She has had problems with doxycycline and has not taken it regularly and may be the reason for her increasing back pain and some subclinical infection. PLAN: 1. Would resume doxycycline 100 mg p.o. b.i.d. with Zofran to be taken one tablet q.6 hours p.r.n. 2. Nicotine patch was recommended as the patient is having withdrawal from nicotine. 3. Echocardiogram was ordered. The results are still pending. These will be reviewed. 4. Increase dose of gabapentin to 600 mg p.o. t.i.d. to help with anxiety and pain management. 5. The patient needs to establish with primary care and followup with them in seven days. I will see the patient in two weeks after discharge. The patient could be discharged home tomorrow if her echo is benign. VINCENT
--- NOTE | 2020-03-25 08:50 | ECHO ---
DATE OF PROCEDURE: 03/22/2020 Age: 49 Gender: Female Height: 149 cm Weight: 46 kg REFERRING PHYSICIAN: Paramjit Lawler DO INDICATION: Sepsis. MEASUREMENTS: 2D Measurements: Aortic root 3.1 cm Left atrium 2.8 cm Intraventricular septum 1.03 cm Posterior wall 1.01 cm Left ventricle diastole 3.3 cm Inferior vena cava 1.1 cm (more than 50% respiratory variation, suggestive of CVP 5-10 mmHg) Doppler Measurements: Trace aortic regurgitation No aortic stenosis Aortic valve velocity 91.6 cm/s LVOT velocity 75.1 cm/s No mitral regurgitation No mitral stenosis Mitral E velocity 71.1 cm/s Mitral A velocity 81.0 cm/s Mitral deceleration time 129 msec Moderate tricuspid regurgitation Estimated right ventricular systolic pressure 26-31 mmHg Estimated right atrial pressure 5-10 mmHg Trace pulmonic regurgitation MITRAL ANNULAR TISSUE DOPPLER E prime septal 6.5 cm/s, E prime lateral 7.6 cm/s DESCRIPTION: Rhythm was sinus. Image quality was fair. This was a 2D, M-mode, color flow Doppler, and pulsed wave Doppler examination including mitral annular tissue Doppler. CONCLUSIONS: 1. Vegetation attached to the atrial side of the septal tricuspid leaflet measuring 12 mm x 3.5 mm. Moderate tricuspid regurgitation. 2. Mild nonspecific thickening of the aortic valve. Trace aortic regurgitation. No aortic stenosis. 3. Normal left ventricle internal dimensions and wall thickness. Normal regional LV wall motion and wall thickening. Normal LV systolic function. LVEF 60% by visual estimate. Grade 1 LV diastolic dysfunction (impaired relaxation filling pattern). Normal left atrial size. 4. No pericardial effusion. 5. Normal right ventricle size and systolic function. MTDD
== END 2020-03-23 12:00 | disposition home or self-care (01) | DRG 347 ==
LOC: M PCU 15:41
PROVIDERS: ADMIT Internal Medicine; ATTEND Internal Medicine
PROC: 02HV33Z Insertion of Infusion Device into Superior Vena Cava, Percutaneous Approach (ICD-10-PCS; principal; 2020-03-22 12:00)
DX: M54.5 Low back pain (principal); I10 Essential (primary) hypertension; Z79.899 Other long term (current) drug therapy; Z88.0 Allergy status to penicillin; Z88.2 Allergy status to sulfonamides; Z88.8 Allergy status to other drugs, medicaments and biological substances; F32.9 Major depressive disorder, single episode, unspecified; G47.00 Insomnia, unspecified; K21.9 Gastro-esophageal reflux disease without esophagitis; F17.200 Nicotine dependence, unspecified, uncomplicated

== ENCOUNTER 2020-04-28 19:31 | Inpatient (IN) | payer OTHER ==
[~2020-04-28 19:31] MED LIST changes: +DICY10CA13 PO; +HYDR-3782 PO; +HYDR50TA70 PO; +IBUP1TAB5 PO; -IBUP40TA PO; +QUET300T2 PO; +QUET50TA3 PO; -QUET5TAB PO; +SENN-23 PO; +SUBO8MIS SL
[2020-04-28 20:48] VITALS: BP 116/84
--- OUTSIDE RECORDS SUMMARY | 2020-04-28 21:59 | CCD ---
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 Active 6055 5002 Problem Rheumatoid arthritis with po sitive rheumatoid factor, involving unspecified site M05.9 Active 355335360 Problem Epidural abscess, L2-L5 G06.1 Active 69620542 3 Problem Acute midline low back pain without sciatica M54.5 Active 575139028 Problem MRSA (methicillin resistant staph aureus) culture positive Z22.322 Active 155559778 Problem Bacteremia R78.81 Active 37601393214575456 Problem Surgical menopause, symptomatic E89.41 Active 574108624 Problem Methicillin resistant Staphy lococcus aureus infection as the cause of diseases classified elsewhere B95.62 Active 190243 002 Problem Generalized anxiety disorder F41.1 Active 218 29057 Problem Other specified acute skin changes due to ultraviolet radiation L56.8 Active 14048355 Problem Primary osteoarthritis, 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 Active 425988730761397 Problem Bilious vomiting with nausea R11.14 Active 714 76334 Problem Psoas muscle abscess 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.12 Active 011443874 Problem History of hepatitis C Z86.19 Active 686734076 99013 Problem Pneumonia due to infectious organism, unspecified laterality, unspecified part of lung J18.9 Active 924569928 Problem Lumbosacral radiculopathy due to degenerative chayo int disease of spine M47.27 Active 597982354 Problem Gastroesophageal reflux disease, esophagitis pre sence not specified K21.9 Active 363081709 Problem Iron deficiency anemia, unspecified iron deficiency an emia type D50.9 Active 98084418 Problem Primary osteoarthritis, right hand M19.041 Activ e 01257399 Problem Gangrene of finger I96 Active 201768552 Problem 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 Active 34054804 Problem Aphthous ulcer K12.0 Active 865250327 ALLERGIES Allergen (clinical drug ingredient) Drug/Non Drug Allergy do cumented on EMR Reaction Allergy Type Onset Date Status Sulfa (for allergy use only) Hives Non Drug Allergy Active Penicillin (For Allergies Use Only) Hives Drug Allerg y Active vancomycin Vancomycin HCl([facility] Code:[address]-56) Hives Drug All ergy 05/01/2019 Active sulfamethoxazole / trimethoprim Bactrim([facility] Code:[address]-57) Hives Drug Allergy 05/01/2019 Active ENCOUNTERS from 1970 to 2020-03-27 Encounter Location Date Provider Diagnosis [address] [address] Mar, Betty Jose IMMUNIZATIONS Vaccine Route Administration Date Status Hepatitis A Adult 1.0mL (Havrix) Unknown Mar 31, 2019 Administered SOCIAL HISTORY Tobacco Use: Social History Observation Description Date Details (start date - stop date) Current Smoker Sex Assigned At : Social History Observation Description Sex Assigned At Unknown Education: Question Answer Notes Level of Education: Finished High School Language: Question Answer Notes Languages spoken: Sudanese Rastafari: Question Answer Notes Rastafari [employer] Sexual Hx: Question Answer Notes Had sex in the last 12 months (vaginal, oral, or anal)? No LMP: hysterectomy Have you ever had an STD? No Alcohol Screening: Question Answer Notes Did you have a drink containing alcohol in the past year? No Points 0 Interpretation Negative Tobacco Use: Question Answer Notes Are you a: current smoker How many cigarettes a day do you smoke? 01-25 REASON FOR REFERRAL No Information VITAL SIGNS No information MEDICATIONS Medication SIG (Take, Route, Frequency, Duration) Notes Start Da te End Date Status Zofran 4 MG 1 tablet Orally bid for 30 day(s) Active Estradiol 0.5 MG 1 tablet Orally Once a day for 30 day(s) Active Plaquenil 200 MG as directed Orally Daily for 30 days 2019 Active SEROquel 100 MG 1/2 tablet at bedtime Orally Once a day Active Suboxone 8-2 MG 1 film under the tongue and allow to dissolve Singh blingual bid Active Aspirin 81 81 MG 1 tablet Orally Once a day for 30 day(s) Active Diflucan 150 MG 1 tablet Orally weekly for 28 day(s) Active Phenergan 25 MG 1 tablet as needed Orally every 12 hrs for 14 da y(s) Feb, Active Doxycycline Hyclate 100 MG 1 capsule Orally every 12 h rs until dalvance for 30 Days Active Gabapentin 300 MG 1 capsule Orally three times daily for 30 day(s) Active Omeprazole 20 MG 1 capsule 30 minutes before morning meal Orally Daily Apr, Active Venlafaxine HCl ER 150 MG 1 tablet with food Orally Once a day Active Triamcinolone Acetonide 0.1 % 1 application to oral le timmy Mouth/Throat Twice a day for 30 day(s) Dec, Active Ketorolac Tromethamine 10 MG 1 tablet with food or mil k as needed Orally every 6 hrs for 5 day(s) Active PROCEDURES No Information RESULTS No Results REASON FOR VISIT would like a call MEDICAL (GENERAL) HISTORY Type Description Date Medical History Hx IVDU Medical History 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 Ricardo Marino at [facility] MRI 06/26/19 with 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 with epidural abscess measuring 7 x 2 x 19 mm with anterior epidural inflammatory changes from L3-L4 bilateral psoas abscess from L2-L5 Medical History transesophageal echocardiogr am with pediatric probe showed a tricuspid valve vegetation 0.4x 0.7 cm with moderate tricuspid regurgitation at [facility] Dr Estephanie Agosto Surgical History c-sections Surgical History gall bladder Surgical History hernia Surgical History back and neck surgery Hospitalization History [facility] endocarditis 04/2019 Hospitalization History kidney failure 05/2019 Hospitalization History left finger infection 11/2019 Hospitalization History infection 02/2020 Goals Section No Information Health Concerns No Information MEDICAL EQUIPMENT No Information MENTAL STATUS No Information FUNCTIONAL STATUS No Information ASSESSMENTS No Information PLAN OF TREATMENT Medication Medication Name Sig Start Date Stop Date Ketorolac Tromethamine 10 MG 1 tablet with food or mil k as needed Orally every 6 hrs for 5 day(s) Doxycycline Hyclate 100 MG 1 capsule Orally every 12 h rs until dalvance for 30 Days Next Appt Details Provider Name:Rosario River, 09:00:00 AM, [address] [place] [address], [phone], Insurance Providers Payer Name Payer Address Payer Phone Insured Name Patient Relati onship to Insured Coverage Start Date Coverage End Date [facility] [employer] [facility] [address] [facility] [phone] MYLES BLACKWELL self
--- OUTSIDE RECORDS SUMMARY | 2020-04-28 21:59 | CCD | Summary of Care ---
Author Author [facility] Organization [facility] Address Unknown Phone Unavailable Care Team Providers Care Ux Ui Designer Name Role Phone Ava Trinidad PCP Reason for Visit * Reason Comments Follow-up Encounter Details Care Team Description Date Type Department Ricardo Marino MD [address] [place] [address] Osteomyelitis of lumbar spine (Primary D x) 04/25/2020 Telemedicine [facility] , [facility] [address] [place] [address] Allergies Comments Active Allergy Reactions Severity Noted Date Sulfamethoxazole-Trimetho Rash Medium 04/08 prim Penicillins Rash Medium 04/20/2013 Sulfa Antibiotics Rash Medium 04/20/2013 documented as of this encounter (statuses as of 04/25/2020) Medications End Date Status Medication Sig Dispensed Refills Start Date Active quetiapine (SEROQUEL) 100 Take 100 mg 0 MG tablet by mouth nightly Active estradiol (ESTRACE) 0.5 Take 0.5 mg 0 MG tablet by mouth daily. Active Ferrous Sulfate 325 (65 Take 325 mg 0 Fe) MG Oral Tablet by mouth daily with breakfast Active Gabapentin 300 MG Oral Take 300 mg 0 Capsule (NEURONTIN) by mouth Two Times Daily Active Cyclobenzaprine HCl 5 MG Take 5 mg by 0 Oral Tablet (FLEXERIL) mouth Two times daily as needed for Muscle spasms Active hydrOXYzine HCl 25 MG Take 25 mg by 0 Oral Tablet (ATARAX) mouth every 4 (four) hours as needed Active Vitamin C 500 MG Oral Take 500 mg 0 Tablet (ASCORBIC ACID) by mouth daily Active Venlafaxine HCl ER 150 MG Take 150 mg 0 Oral Capsule Extended by mouth Release 24 Hour daily (EFFEXOR-XR) Active Omeprazole 40 MG Oral Take 40 mg by 0 Capsule Delayed Release mouth daily (PRILOSEC) Active Vitamin D Take 50,000 0 (Ergocalciferol) 1.25 MG Units by (99652 UT) Oral Capsule mouth every 7 (ERGOCALCIFEROL) (seven) days Active risperiDONE 1 MG Oral Take 1 mg by 0 Tablet (RISPERDAL) mouth Two Times Daily Active Lidocaine 4 % External Place 1 patch 0 Patch onto the skin daily To back Active Diclofenac Sodium 1 % Apply 2 g 0 07/03/19 2 Transdermal Gel topically 0 (VOLTAREN) Four times daily Active Sodium Chloride (PF) 0.9 Inject 10 mLs 0 07/02 % Injection Solution into the vein 0 as needed Active Heparin Lock Flush 10 2 mLs by 0 07/03/19 2 UNIT/ML Intravenous Intracatheter 0 Solution route as needed (for PICC line) Active Buprenorphine Place 1 Film 14 each 0 HCl-Naloxone HCl 8-2 MG under the 0 Sublingual Film tongue every (Suboxone) morning 8-2mg qam, and 4-1mg qpm, Max Daily Dose: 1 Film 03/17/2021 Active Meloxicam 15 MG Oral Take 1 tablet 30 tablet 11 Tablet (Mobic) by mouth 1 daily documented as of this encounter (statuses as of 04/25/2020) Active Problems Problem Noted Date Opioid use disorder, severe, in controlled environmen t 06/29/2019 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 Spinal abscess 06/27/2019 IVDU (intravenous drug user) 06/27/2019 Tobacco abuse disorder 06/27/2019 Osteomyelitis of lumbar spine 06/27/2019 Anxiety 06/27/2019 Lumbar stenosis with neurogenic claudication 014 Degenerative disc disease, lumbar 04/20/2013 Lumbar stenosis 04/20/2013 documented as of this encounter (statuses as of 04/25/2020) Social History Date Tobacco Use Types Packs/Day Years Used Light Tobacco Smoker 0.5 Smokeless Tobacco: Never Used Drinks/Week oz/Week Comments Alcohol Use No Sex Assigned at Date Recorded Not on file documented as of this encounter Last Filed Vital Signs Not on filedocumented in this encounter Progress Notes * Ricardo Marino MD - 04/25/2020 3:15 PM EST I unfortunately logged on to tayloryme late. I called her on doximetry. She was no t able to talk and would like to be rescheduled documented in this encounter Plan of Treatment Health Maintenance Due Date Last Done Comments MMR Vaccines (1 of - 10/16/1971 Standard series) Varicella Vaccines (1 of 10/16/1971 2 - 2-dose childhood series) Pneumococcal Vaccine: 1976 Pediatrics (0 to 5 Years) and At-Risk Patients (6 to 64 Years) (1 of 1 - PPSV23) DTaP,Tdap,and Td Vaccines 1977 (1 - Tdap) HIV Screening 10/16/1983 Cervical Cancer Screening 10/16/1991 5 years Influenza Vaccine 12/07/2019 Pneumococcal Vaccine: 65+ 10/16/2035 Years (1 of 1 - PPSV23) Hepatitis A Vaccines Aged Out 03/31/2019, No longer eligible based on patient's age to 10/24/2018 complete this topic HIB Vaccines Aged Out No longer eligible based on patient's age to complete this topic Hepatitis B Vaccines Aged Out No longer eligibl e based on patient's age to complete this topic IPV Vaccines Aged Out No longer eligible based on patient's age to complete this topic documented as of this encounter Implants Device Identifier Shelf Expiration Date Model / Serial / L ot Implanted Type Area Manufactur er 05/15/2020 BL-1600-003 / [id number] / [id number] Putty Bone Vivigen Largemoldable - N/A: Back LI FENET [id number] [id number] Implanted: Qty: 1 on 06/30/2019 by Ricardo Santos MD at [facility] 07/06/2020 [id number] / / [id number] Fusion Device 10x27 6dg 9mm - N/A: Spine 4WEB [id number] Lumbar Implanted: Qty: 1 on 06/30/2019 by Ricardo Marino MD at [facility] [id number] / / Andrei 5.5 X65mm Expedium Tiwith Line N/A: Spine DE PUY - [id number] Lumbar MEDICAL Implanted: Qty: 2 on 06/30/2019 by Ricardo Marino MD at [facility] [id number] / / Screw Ped.6 X30mm Poly Ti Expe - N/A: Spine DEPU Y [id number] Lumbar MEDICAL Implanted: Qty: 2 on 06/30/2019 by Ricardo Marino MD at OR [facility] [id number] / / Screw Ped.6 X35mm Poly Ti Expe - N/A: Spine DEPU Y [id number] Lumbar MEDICAL Implanted: Qty: 2 on 06/30/2019 by Ricardo Marino MD at OR [facility] [id number] / / Screw Ped.6 X40mm Poly Ti Expe - N/A: Spine DEPU Y [id number] Lumbar MEDICAL Implanted: Qty: 2 on 06/30/2019 by Ricardo Marino MD at OR [facility] [id number] / / Screw Single Inner Set - [id number] N/A: Spine D EPUY Implanted: Qty: 6 on 06/30/2019 by Lumbar ME DICAL Ricardo Marino MD at OR [facility] documented as of this encounter Results Not on filedocumented in this encounter Visit Diagnoses Diagnosis Osteomyelitis of lumbar spine - Primary Unspecified osteomyelitis, other specif ied site documented in this encounter Additional Health Concerns Last Indicated Resolved Time Infection Onset Date 06/30/2019 MRSA (Methicillin 06/30/2019 Resistant Staphylococcus aureus) documented as of this encounter
--- OUTSIDE RECORDS SUMMARY | 2020-04-28 21:59 | CCD | Summary of Care ---
Author Author [facility] Organization [facility] Address Unknown Phone Unavailable Care Team Providers Care Parachute Folder Name Role Phone Ava Trinidad PCP Reason for Referral * Physical Therapy (Routine) Referred By Contact Referred To Contact Status Reason Specialty Diagnoses / Procedures Ricardo Marino MD [address] [facility] [address] [place] [id number] Email: [email or web address] Open Diagnoses Lumbar stenosis with neurogenic claudication P rocedures Physical Therapy Evaluate and Treat (External) Reason for Visit * Reason Comments Follow-up Encounter Details Care Team Description Date Type Department Ricardo Marino MD [address] [place] [address] [phone] Lumbar stenosis with neurogenic claudica tion (Primary Dx) 03/18/2020 Telemedicine [facility] Orth[facility] , [facility] [address] [address] Allergies Comments Active Allergy Reactions Severity Noted Date Sulfamethoxazole-Trimetho Rash Medium 04/08 prim Penicillins Rash Medium 04/20/2013 Sulfa Antibiotics Rash Medium 04/20/2013 documented as of this encounter (statuses as of 03/18/2020) Medications End Date Status Medication Sig Dispensed [...] 50,000 0 (Ergocalciferol) 1.25 MG Units by (64208 UT) Oral Capsule mouth every 7 (ERGOCALCIFEROL) [...] as of this encounter (statuses as of 03/18/2020) Active Problems Problem Noted Date Opioid use disorder, severe, in controlled environmen t 06/29/2019 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 Spinal abscess 06/27/2019 IVDU (intravenous drug user) 06/27/2019 Tobacco abuse disorder 06/27/2019 Osteomyelitis of lumbar spine 06/27/2019 Anxiety 06/27/2019 Lumbar stenosis with neurogenic claudication 014 Degenerative disc disease, lumbar 04/20/2013 Lumbar stenosis 04/20/2013 documented as of this encounter (statuses as of 03/18/2020) Social History Date Tobacco Use Types Packs/Day Years Used Light Tobacco Smoker 0.5 Smokeless Tobacco: Never Used Drinks/Week oz/Week Comments Alcohol Use No Sex Assigned at Date Recorded Not on file documented as of this encounter Last Filed Vital Signs Not on filedocumented in this encounter Progress Notes * Ricardo Marino MD - 03/18/2020 2:30 PM EST Sujey Doty was seen today. This encounter was conducted using synchronous audio and visual telemedicine via [employer]. Although telemedicine health communications carry certain risks, inclu ding but not limited to breach of patient privacy, errors in transmission of aud io or visual information, and diagnostic errors due to limitations in the provid ers ability to conduct certain physical examination maneuvers, the provide r and patient agree that, in light of the global COVID-19 pandemic, the benefits of this telemedicine encounter outweigh the potential risk. The patient and/or the patients legal guardian has: (i) been apprised of such risks, as well as alternative modalities for addressing their health concern; (ii) elected to p roceed with this telemedicine encounter; and (iii) provided express verbal conse nt for the same. Patients location: Home Providers location: My home office This is a patient who had previously undergone the surgery for the debridement o f a large epidural abscess. At the time of her surgery she was revised with spi nal instrumentation. Her subsequent postoperative course has been complicated b y endocarditis as well as pneumonia. With an infectious disease physician close r to home who sent her back to me with worsened back pain. She currently states that she had a timeframe after surgery where she was doing much better with respect to back pain but things have worsened. Appropriately h er infectious disease doctor had done a radiographic work-up. The patient retur ns today for discussion. She has no worsened radiculopathic pain or any neurolo gic deficit. She has had infectious history since she has seen me for the hospital stay of no te as well Past Medical History: Diagnosis Date Anemia Anxiety Arthritis Blood transfusion without reported diagnosis 4x in 2006 GERD (gastroesophageal reflux disease) Low back pain 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 Opioid use disorder, severe, in controlled environment 06/29/2019 Ulcer Past Surgical History: Procedure Laterality Date SECTION x3 CHOLECYSTECTOMY COLONOSCOPY FRACTURE SURGERY 2012 HYSTERECTOMY OOPHORECTOMY Current Outpatient Medications on File Prior to Visit Medication Sig Dispense Refill Buprenorphine HCl-Naloxone HCl 8-2 MG Sublingual Film (Suboxone) Place 1 Film under the tongue every morning 8-2mg qam, and 4-1mg qpm, Max Daily Dose: 1 Film 14 each 0 Cyclobenzaprine HCl 5 MG Oral Tablet (FLEXERIL) Take 5 mg by mouth Two ti mes daily as needed for Muscle spasms Diclofenac Sodium 1 % Transdermal Gel (VOLTAREN) Apply 2 g topically Four times daily estradiol (ESTRACE) 0.5 MG tablet Take 0.5 mg by mouth daily. Ferrous Sulfate 325 (65 Fe) MG Oral Tablet Take 325 mg by mouth daily wit h breakfast Gabapentin 300 MG Oral Capsule (NEURONTIN) Take 300 mg by mouth Two Times Daily Heparin Lock Flush 10 UNIT/ML Intravenous Solution 2 mLs by Intracatheter route as needed (for PICC line) 0 hydrOXYzine HCl 25 MG Oral Tablet (ATARAX) Take 25 mg by mouth every 4 (f our) hours as needed Lidocaine 4 % External Patch Place 1 patch onto the skin daily To back Omeprazole 40 MG Oral Capsule Delayed Release (PRILOSEC) Take 40 mg by mo uth daily quetiapine (SEROQUEL) 100 MG tablet Take 100 mg by mouth nightly risperiDONE 1 MG Oral Tablet (RISPERDAL) Take 1 mg by mouth Two Times Priscila ly Sodium Chloride (PF) 0.9 % Injection Solution Inject 10 mLs into the vein as needed Venlafaxine HCl ER 150 MG Oral Capsule Extended Release 24 Hour (EFFEXOR- XR) Take 150 mg by mouth daily Vitamin C 500 MG Oral Tablet (ASCORBIC ACID) Take 500 mg by mouth daily Vitamin D (Ergocalciferol) 1.25 MG (97531 UT) Oral Capsule (ERGOCALCIFERO L) Take 50,000 Units by mouth every 7 (seven) days No current facility-administered medications on file prior to visit. Allergies Allergen Reactions Bactrim [Sulfamethoxazole-Trimethoprim] Rash Penicillins Rash Sulfa Antibiotics Rash The patient's exam was reviewed and appears to be consistent with previous exams completed. The patient appeared to be able to perform at this motor level obse rving through video observation though the exam is limited by the telemedicine e xperience Upper Extremity Right Left Deltoid 5 5 Biceps 5 5 Triceps 5 5 Wrist Extensor 5 5 Wrist Flexor 5 5 Manager Spring 5 5 Intrinsics 5 5 Lower Extremity Iliopsoas 5 5 Quadriceps 5 5 Hamstrings 5 5 Tibialis anterior 5 5 EHL 5 5 Gastroc 5 5 Peroneals 5 5 Imaging: MRI was completed that shows no discrete pocket of fluid. She does hav e endplate changes that are seen particularly at L3-[address] scan does not show any bony incorporation through the cage at L3-4 Impression: Previous care for epidural abscess now with area concerning for christineu leelee Discussion: The patient does not have a discrete area of abscess but does have a n area that is concerning for nonunion. The surgery was greater than 6 months o ld. We do not see any incorporation of any bone. Her screws yet do not seem lo ose. Certainly she has the option of waiting longer. I discussed with her that where she to consider revision surgery that we would expect that she were to mo dify anything that would interfere with bone healing as best as she could to inc lude use of any kind of IV drugs or as well as ceasing smoking. As her greatest complaint is her back pain I recommended some physical therapy while she tries to quit smoking. She will see me back again. She knows to go to the ER with an y concerns of fever or chills or urgent issues Approximately 30 minutes was spent with this patient with 80% spent on coordinat ion of care and counseling. documented in this encounter Plan of Treatment Health Maintenance Due Date Last Done Comments MMR Vaccines ( of - 10/16/1971 Standard series) Varicella Vaccines ( of 10/16/1971 2 - 2-dose childhood series) [...] ot Implanted Type Area Manufactur er 05/15/2020 -1600-003 / [id number] / [id number] Putty Bone Vivigen Largemoldable - N/A: Back LI EFREN [id number] Implanted: Qty: 1 on 06/30/2019 by Ricardo Santos MD at OR [facility] 07/06/2020 [id number] / / [id number] Fusion Device 10x27 6dg 9mm - N/A: Spine 4WEB [id number] Lumbar Implanted: Qty: 1 on 06/30/2019 by Ricardo Marino MD at OR [facility] [id number] / / Andrei 5.5 X65mm Expedium Tiwith Line N/A: Spine DE PUY - [id number] Lumbar MEDICAL Implanted: Qty: 2 on 06/30/2019 by Ricardo Marino MD at OR [facility] [id number] / / Screw Ped.6 X30mm Poly Ti Expe - N/A: Spine DEPU Y [id number] Lumbar MEDICAL Implanted: Qty: 2 on 06/30/2019 by Ricardo Marino MD at OR [facility] 228 / / Screw Ped.6 X35mm Poly Ti Expe - N/A: Spine DEPU Y [id number] Lumbar MEDICAL Implanted: Qty: 2 on 06/30/2019 by Ricardo Marino MD at OR [facility] [id number] / / Screw Ped.6 X40mm Poly Ti Expe - N/A: Spine DEPU Y [id number] Lumbar MEDICAL Implanted: Qty: 2 on 06/30/2019 by Ricardo Marino MD at OR [facility] / / Screw Single Inner Set - [id number] N/A: Spine D EPUY Implanted: Qty: 6 on 06/30/2019 by Lumbar ME TOREYAL Ricardo Marino MD at OR [facility] documented as of this encounter Results Not on filedocumented in this encounter Visit Diagnoses Diagnosis Lumbar stenosis with neurogenic claudic ation - Primary Spinal stenosis, lumbar region, with ne urogenic claudication documented in this encounter Additional Health Concerns Last Indicated Resolved Time Infection Onset Date 06/30/2019 MRSA (Methicillin 06/30/2019 Resistant Staphylococcus aureus) documented as of this encounter
--- OUTSIDE RECORDS SUMMARY | 2020-04-28 21:59 | CCD ---
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 Active 6055 5002 Problem Rheumatoid arthritis with po sitive rheumatoid factor, involving unspecified site M05.9 Active 812641003 Problem Epidural abscess, L2-L5 G06.1 Active 43558847 3 Problem Acute midline low back pain without sciatica M54.5 Active 960753676 Problem MRSA (methicillin resistant staph aureus) culture positive Z22.322 Active 223167357 Problem Bacteremia R78.81 Active 52251977785299977 Problem Surgical menopause, symptomatic E89.41 Active 999144557 Problem Methicillin resistant Staphy lococcus aureus infection as the cause of diseases classified elsewhere B95.62 Active 446684 002 Problem Generalized anxiety disorder F41.1 Active 218 07339 Problem Other specified acute skin changes due to ultraviolet radiation L56.8 Active 47151292 Problem Primary osteoarthritis, 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 Active 261619709482730 Problem Bilious vomiting with nausea R11.14 Active 714 72564 Problem Psoas muscle abscess K68.12 Active 977170291 Problem History of hepatitis C Z86.19 Active 420509866 99482 Problem Pneumonia due to infectious organism, unspecified laterality, unspecified part of lung J18.9 Active 225181910 Problem Lumbosacral radiculopathy due to degenerative chayo int disease of spine M47.27 Active 165695235 Problem Gastroesophageal reflux disease, esophagitis pre sence not specified K21.9 Active 546189890 Problem Iron deficiency anemia, unspecified iron deficiency an emia type D50.9 Active 12731620 Problem Primary osteoarthritis, right hand M19.041 Activ e 93870540 Problem Gangrene of finger I96 Active 596900002 Problem 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 Active 58772852 Problem Aphthous ulcer K12.0 Active 968904416 ALLERGIES Allergen (clinical drug ingredient) Drug/Non Drug Allergy do cumented on EMR Reaction Allergy Type Onset Date Status Sulfa (for allergy use only) Hives Non Drug Allergy Active Penicillin (For Allergies Use Only) Hives Drug Allerg y Active vancomycin Vancomycin HCl([facility] Code:[address]-04) Hives Drug All ergy 05/01/2019 Active sulfamethoxazole / trimethoprim Bactrim([facility] Code:[address]-94) Hives Drug Allergy 05/01/2019 Active ENCOUNTERS from 1970 to 2020-03-21 Encounter Location Date Provider Diagnosis [address] [address] 14 Mar, 2020 Betty Jose IMMUNIZATIONS Vaccine Route Administration Date Status Hepatitis A Adult 1.0mL (Havrix) Unknown Mar 31, 2019 Administered SOCIAL HISTORY Tobacco Use: Social History Observation Description Date Details (start date - stop date) Current Smoker Sex Assigned At : Social History Observation Description Sex Assigned At Unknown Education: Question Answer Notes Level of Education: Finished High School Language: Question Answer Notes Languages spoken: Zambian Hindu: Question Answer Notes Hindu 08 Mu-Ism Sexual Hx: Question Answer Notes Had sex [...] many cigarettes a day do you smoke? 11-20 REASON FOR REFERRAL No Information VITAL SIGNS [...] Information RESULTS No Results REASON FOR VISIT N/S MEDICAL (GENERAL) HISTORY Type Description Date Medical [...] I&D done by Dr. 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 with epidural abscess measuring 7 x 2 x 19 mm with anterior epidural inflammatory changes from L3-L4 bilateral psoas abscess from L2-L5 Medical History transesophageal echocardiogr am with pediatric probe showed a tricuspid valve vegetation 0.4x 0.7 cm with moderate tricuspid regurgitation at [facility] Dr Estephanie Agosto Surgical History c-sections Surgical [...] Appt Details Provider Name:Rosario River, 09:00:00 AM, [address] [place] [address], [id number], Insurance Providers Payer Name Payer Address Payer Phone Insured Name Patient Relati onship to Insured Coverage Start Date Coverage End Date [facility] [address] [facility] [id number] MYLES BLACKWELL self
--- OUTSIDE RECORDS SUMMARY | 2020-04-28 21:59 | CCD ---
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 Active 6055 5002 Problem Rheumatoid arthritis with po sitive rheumatoid factor, involving unspecified site M05.9 Active 298199270 Problem Epidural abscess, L2-L5 G06.1 Active 49935111 3 Problem Acute midline low back pain without sciatica M54.5 Active 437223498 Problem MRSA (methicillin resistant staph aureus) culture positive Z22.322 Active 514048863 Problem Bacteremia R78.81 Active 57253405904943184 Problem Surgical menopause, symptomatic E89.41 Active 492397265 Problem Methicillin resistant Staphy lococcus aureus infection as the cause of diseases classified elsewhere B95.62 Active 958883 002 Problem Generalized anxiety disorder F41.1 Active 218 39008 Problem Other specified acute skin changes due to ultraviolet radiation L56.8 Active 07455615 Problem Primary osteoarthritis, 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 Active 346222971080079 Problem Bilious vomiting with nausea R11.14 Active 714 36874 Problem Psoas muscle abscess K68.12 Active 554561216 Problem History of hepatitis C Z86.19 Active 830092510 43784 Problem Pneumonia due to infectious organism, unspecified laterality, unspecified part of lung J18.9 Active 714574973 Problem Lumbosacral radiculopathy due to degenerative chayo int disease of spine M47.27 Active 477982388 Problem Gastroesophageal reflux disease, esophagitis pre sence not specified K21.9 Active 961198994 Problem Iron deficiency anemia, unspecified iron deficiency an emia type D50.9 Active 58997903 Problem Primary osteoarthritis, right hand M19.041 Activ e 54255987 Problem Gangrene of finger I96 Active 820762713 Problem 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 Active 24944117 Problem Aphthous ulcer K12.0 Active 451139286 ALLERGIES Allergen (clinical drug ingredient) Drug/Non Drug Allergy do cumented on EMR Reaction Allergy Type Onset Date Status Sulfa (for allergy use only) Hives Drug Allergy 2019 Active Penicillin (For Allergies Use Only) Hives Drug Allerg y Active vancomycin Vancomycin HCl([facility] Code:[address]-96) Hives Drug All ergy 05/01/2019 Active sulfamethoxazole / trimethoprim Bactrim([facility] Code:[address]-22) Hives Drug Allergy 05/01/2019 Active ENCOUNTERS from 1970 to 2020-03-18 Encounter Location Date Provider Diagnosis [address] [address] Mar, Betty Jose IMMUNIZATIONS Vaccine Route Administration [...] School Language: Question Answer Notes Languages spoken: [place] Guinean Lutheran: Question Answer Notes Lutheran 08 Lutheran Sexual Hx: Question Answer Notes Had sex [...] tablet Orally bid for 30 day(s) Active Triamcinolone Acetonide 0.1 % 1 application to oral le timmy Mouth/Throat Twice a day for 30 day(s) Dec, Active Phenergan 25 MG 1 tablet as needed Orally every 12 hrs for 14 da y(s) Feb, Active Estradiol 0.5 MG 1 tablet Orally Once a day for 30 day(s) Active Omeprazole 20 MG 1 capsule 30 minutes before morning meal Orally Daily Apr, Active Venlafaxine HCl ER 150 MG 1 tablet with food Orally Once a day Active SEROquel 100 MG 1/2 tablet at bedtime Orally Once a day Active Gabapentin 300 MG 1 capsule Orally three times daily for 30 day(s) Active Ketorolac Tromethamine 10 MG 1 tablet with food or mil k as needed Orally every 6 hrs for 5 day(s) Mar, Active Aspirin 81 81 MG 1 tablet Orally Once a day for 30 day(s) Active Doxycycline Hyclate 100 MG 1 capsule Orally every 12 h rs until dalvance for 30 Days Active Plaquenil 200 MG as directed Orally Daily for 30 days 2019 Active Diflucan 150 MG 1 tablet Orally weekly for 28 day(s) Active PROCEDURES No Information RESULTS No Results REASON FOR VISIT prednisone MEDICAL (GENERAL) HISTORY Type Description Date Medical [...] I&D done by Dr. 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 with epidural abscess measuring 7 x 2 x 19 mm with anterior epidural inflammatory changes from L3-L4 bilateral psoas abscess from L2-L5 Medical History transesophageal echocardiogr am with pediatric probe showed a tricuspid valve vegetation 0.4x 0.7 cm with moderate tricuspid regurgitation at [facility] Dr Estephanie Agosto Surgical History c-sections Surgical [...] Orally every 6 hrs for 5 day(s) Mar, Doxycycline Hyclate 100 MG 1 capsule Orally every 12 h rs until dalvance for 30 Days Insurance Providers Payer Name Payer Address Payer Phone Insured Name Patient Relati onship to Insured Coverage Start Date Coverage End Date [facility] [address] [facility] [address] MYLES BLACKWELL self
--- OUTSIDE RECORDS SUMMARY | 2020-04-28 21:59 | CCD ---
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 Active 6055 5002 Problem Rheumatoid arthritis with po sitive rheumatoid factor, involving unspecified site M05.9 Active 687528142 Problem Epidural abscess, L2-L5 G06.1 Active 57709320 3 Problem Acute midline low back pain without sciatica M54.5 Active 680592644 Problem MRSA (methicillin resistant staph aureus) culture positive Z22.322 Active 803441491 Problem Bacteremia R78.81 Active 16932430665940169 Problem Surgical menopause, symptomatic E89.41 Active 769516392 Problem Methicillin resistant Staphy lococcus aureus infection as the cause of diseases classified elsewhere B95.62 Active 911249 002 Problem Generalized anxiety disorder F41.1 Active 218 51777 Problem Other specified acute skin changes due to ultraviolet radiation L56.8 Active 60666247 Problem Primary osteoarthritis, 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 Active 590724746529592 Problem Bilious vomiting with nausea R11.14 Active 714 09887 Problem Psoas muscle abscess K68.12 Active 253447582 Problem History of hepatitis C Z86.19 Active 194072696 95493 Problem Pneumonia due to infectious organism, unspecified laterality, unspecified part of lung J18.9 Active 532741168 Problem Lumbosacral radiculopathy due to degenerative chayo int disease of spine M47.27 Active 659870548 Problem Gastroesophageal reflux disease, esophagitis pre sence not specified K21.9 Active 675075852 Problem Iron deficiency anemia, unspecified iron deficiency an emia type D50.9 Active 76758901 Problem Primary osteoarthritis, right hand M19.041 Activ e 05419426 Problem Gangrene of finger I96 Active 160875398 Problem 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 Active 15650352 Problem Aphthous ulcer K12.0 Active 964673695 ALLERGIES Allergen (clinical drug ingredient) Drug/Non Drug Allergy do cumented on EMR Reaction Allergy Type Onset Date Status Sulfa (for allergy use only) Hives Non Drug Allergy Active Penicillin (For Allergies Use Only) Hives Drug Allerg y Active vancomycin Vancomycin HCl([facility] Code:[address]-99) Hives Drug All ergy 05/01/2019 Active sulfamethoxazole / trimethoprim Bactrim([facility] Code:[address]-80) Hives Drug Allergy 05/01/2019 Active ENCOUNTERS from 1970 to 2020-03-31 Encounter Location Date Provider Diagnosis [address] [address] 14 Mar, 2020 Betty Jose 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 ; Pneumonia due to infectious organism, unspecified laterality, unspecified part of lung J18.9 ; Methicillin resistant Staphylococcus aureus infection as the cause of diseases classified elsewhere B95.62 ; Iron deficiency anemia, unspecified iron deficiency anemia type D50.9 ; History of hepatitis C Z86.19 ; Lumbosacral radiculopathy due to degenerative joint disease of spine M47.27 ; Epidural abscess, L2-L5 G06.1 ; Fever, unspecified fever cause R50.9 and Generalized abdominal pain R10.84 IMMUNIZATIONS Vaccine Route Administration Date Status Hepatitis A Adult 1.0mL (Havrix) Unknown Mar 31, 2019 Administered SOCIAL HISTORY Tobacco Use: Social History Observation Description Date Details (start date - stop date) Current Smoker Sex Assigned At : Social History Observation Description Sex Assigned At Unknown Education: Question Answer Notes Level of Education: Finished High School Language: Question Answer Notes Languages spoken: Romansh Nondenominational: Question Answer Notes Nondenominational 08 Buddhism Sexual Hx: Question Answer Notes Had sex [...] REASON FOR REFERRAL No Information VITAL SIGNS Weight 105 lbs Mar, Height 59 in Mar, BMI 21.21 kg/m2 Mar, Heart Rate 128 /min Mar, Respiratory Rate 24 /min Mar, Temperature 98.6 degrees Fahrenheit Mar, Oximetry 98 Mar, Blood pressure systolic 122 mm Hg Mar, Blood pressure diastolic 60 mm Hg Mar, MEDICATIONS Medication SIG (Take, Route, Frequency, Duration) Notes Start Da te End Date Status Diflucan 150 MG 1 tablet Orally weekly for 28 day(s) Active Estradiol 0.5 MG 1 tablet Orally Once a day for 30 day(s) Active Plaquenil 200 MG as directed Orally Daily for 30 days 2019 Active SEROquel 100 MG 1/2 tablet at bedtime Orally Once a day Active Suboxone 8-2 MG 1 film under the tongue and allow to dissolve Singh blingual bid Active Omeprazole 20 MG 1 capsule 30 minutes before morning meal Orally Daily Apr, Active Aspirin 81 81 MG 1 tablet Orally Once a day for 30 day(s) Active Triamcinolone Acetonide 0.1 % 1 application to oral le timmy Mouth/Throat Twice a day for 30 day(s) Dec, Active Doxycycline Hyclate 100 MG 1 capsule Orally every 12 h rs until dalvance for 30 Days Active Zofran 4 MG 1 tablet Orally bid for 30 day(s) Active Phenergan 25 MG 1 tablet as needed Orally every 12 hrs for 14 Active Venlafaxine HCl ER 150 MG 1 tablet with food Orally Once a day Active Gabapentin 300 MG 1 capsule Orally three times daily for 30 day(s) Active Ketorolac Tromethamine 10 MG 1 tablet with food or mil k as needed Orally every 6 hrs for 5 day(s) Active PROCEDURES No Information RESULTS No Results REASON FOR VISIT f/u not feeling well MEDICAL (GENERAL) HISTORY Type Description Date Medical [...] I&D done by Dr. 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 with epidural abscess measuring 7 x 2 x 19 mm with anterior epidural inflammatory changes from L3-L4 bilateral psoas abscess from L2-L5 Medical History transesophageal echocardiogr am with pediatric probe showed a tricuspid valve vegetation 0.4x 0.7 cm with moderate tricuspid regurgitation at [facility] Dr Estephanie Agosto Surgical History c-sections Surgical History gall bladder Surgical History hernia Surgical History back and neck surgery Hospitalization History [facility] endocarditis 04/2019 Hospitalization History kidney failure 05/2019 Hospitalization History left finger infection 11/2019 Hospitalization History infection 02/2020 Goals Section No Information Health Concerns No Information MEDICAL EQUIPMENT No Information MENTAL STATUS No Information FUNCTIONAL STATUS No Information ASSESSMENTS Encounter Date Diagnosis Assessment Notes Treatment Notes Treatm ent Clinical Notes Mar, Endocarditis of tricuspid valve (ICD-10 - I07.9) Transesophageal echocardiogram was done 01/10/2020 which showed tricuspid valve vegetation measuring 0.4 x 0.7 cm consistent with healed old endocarditis. Since patient has persistent fever low-grade slightly elevated ESR and CRP and abnormal chest CT we will obtain follow-up echocardiogram to make sure she does not have recurrent endocarditis Mar, Pneumonia due to infectious organism, unspecified laterality, unspecified part of lung (ICD-10 - J18.9) Was treated with a ten-day course of Ceftinir without improvement followed by 10 day course of Levaquin and prednisone with improvement of her symptoms. She had a CT chest which showed multifocal pneumonitis. Mar, Methicillin resistant Staphy lococcus aureus infection as the cause of diseases classified elsewhere (ICD-10 - B95.62) Patient had labs and blood cultures negative done , ESR normal bur CRP high . Mar, Iron deficiency anemia, unsp ecified iron deficiency anemia type (ICD-10 - D50.9) Normal iron studies not anemic Mar, History of hepatitis C (ICD-10 - Z86.19) Repeat hepatitis C quant RNA ordered and LFT are normal Mar, Lumbosacral radiculopathy du e to degenerative joint disease of spine (ICD-10 - M47.27) Mar, Epidural abscess, L2-L5 (ICD-10 - G06.1) Needs follow up with Dr Denice BARRON, abnormal MRI persistent findings needs reevaluation ? hardware removal. She has worsening back pain Mar, Fever, unspecified fever cause (ICD-10 - R50.9) Mar, Generalized abdominal pain (ICD-10 - R10.84) PLAN OF TREATMENT Medication Medication Name Sig Start Date Stop Date Doxycycline Hyclate 100 MG 1 capsule Orally every 12 h rs until dalvance for 30 Days Phenergan 25 MG 1 tablet as needed Orally every 12 hrs for 14 Ketorolac Tromethamine 10 MG 1 tablet with food or mil k as needed Orally every 6 hrs for 5 day(s) Treatment Notes Assessment Notes Clinical Notes Endocarditis of tricuspid valve Transeso phageal echocardiogram was done 01/10/2020 which showed tricuspid valve vegetation measuring 0.4 x 0.7 cm consistent with healed old endocarditis. Since patient has persistent fever low- grade slightly elevated ESR and CRP and abnormal chest CT we will obtain follow- up echocardiogram to make sure she does not have recurrent endocarditis Pneumonia due to infectious organism, un specified laterality, unspecified part of lung Was treated with a ten-day c ourse of Ceftinir without improvement followed by 10 day course of Levaquin and prednisone with improvement of her symptoms. She had a CT chest which showed multifocal pneumonitis. Methicillin resistant Staphylococcus aur eus infection as the cause of diseases classified elsewhere Patient had labs and blood c ultures negative done , ESR normal bur CRP high . Iron deficiency anemia, unspecified iron deficiency anemia t ype Normal iron studies not anemic History of hepatitis C Repeat hepatitis C quant RNA ordered and LFT are normal Epidural abscess, L2-L5 Needs follow up with Dr Denice BARRON, abnormal MRI persistent findings needs reevaluation ? hardware removal. She has worsening back pain Next Appt Details prn Reason: Provider Name:Betty Jose, 2020-03-09 8 01:30:00 PM, [address] [place], [address], Provider Name:Rosario River, 09:00:00 AM, [address] [place], [address], Insurance Providers Payer Name Payer Address Payer Phone Insured Name Patient Relati onship to Insured Coverage Start Date Coverage End Date [facility] [address] [facility] [phone] MYLES BLACKWELL self
--- OUTSIDE RECORDS SUMMARY | 2020-04-28 21:59 | CCD ---
Author Author [facility] Organization 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 Active 6055 5002 Problem Rheumatoid arthritis with po sitive rheumatoid factor, involving unspecified site M05.9 Active 386962600 Problem Epidural abscess, L2-L5 G06.1 Active 20262403 3 Problem Acute midline low back pain without sciatica M54.5 Active 289889276 Problem MRSA (methicillin resistant staph aureus) culture positive Z22.322 Active 067612610 Problem Bacteremia R78.81 Active 75164552180583787 Problem Surgical menopause, symptomatic E89.41 Active 957456106 Problem Methicillin resistant Staphy lococcus aureus infection as the cause of diseases classified elsewhere B95.62 Active 324973 002 Problem Generalized anxiety disorder F41.1 Active 218 81328 Problem Other specified acute skin changes due to ultraviolet radiation L56.8 Active 97881219 Problem Primary osteoarthritis, 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 Active 641573929316072 Problem Bilious vomiting with nausea R11.14 Active 714 62465 Problem Psoas muscle abscess K68.12 Active 110468789 Problem History of hepatitis C Z86.19 Active 152217587 71160 Problem Pneumonia due to infectious organism, unspecified laterality, unspecified part of lung J18.9 Active 758570758 Problem Lumbosacral radiculopathy due to degenerative chayo int disease of spine M47.27 Active 344619154 Problem Gastroesophageal reflux disease, esophagitis pre sence not specified K21.9 Active 690942927 Problem Iron deficiency anemia, unspecified iron deficiency an emia type D50.9 Active 21598011 Problem Primary osteoarthritis, right hand M19.041 Activ e 82778216 Problem Gangrene of finger I96 Active 843056061 Problem 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 Active 77127276 Problem Aphthous ulcer K12.0 Active 060163352 ALLERGIES Allergen (clinical drug ingredient) Drug/Non Drug Allergy do cumented on EMR Reaction Allergy Type Onset Date Status Sulfa (for allergy use only) Hives Drug Allergy 2019 Active Penicillin (For Allergies Use Only) Hives Drug Allerg y Active vancomycin Vancomycin HCl([facility] Code:[address]-21) Hives Drug All ergy 05/01/2019 Active sulfamethoxazole / trimethoprim Bactrim([facility] Code:[address]-37) Hives Drug Allergy 05/01/2019 Active ENCOUNTERS from 1970 to 2020-03-18 Encounter Location Date Provider Diagnosis [address] [address] Mar, Betty Jose 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 [...] School Language: Question Answer Notes Languages spoken: Georgian Gnosticism: Question Answer Notes Gnosticism 08 Christianity Sexual Hx: Question Answer Notes Had sex [...] FOR REFERRAL No Information VITAL SIGNS Weight 103 lbs Mar, Height 59 in Mar, BMI 20.80 kg/m2 Mar, Heart Rate 78 /min Mar, Respiratory Rate 18 /min Mar, Temperature 98.4 degrees Fahrenheit Mar, Oximetry 100 Mar, Blood pressure systolic 98 mm Hg Mar, Blood pressure diastolic 64 mm Hg Mar, MEDICATIONS Medication SIG (Take, [...] 28 day(s) Active PROCEDURES No Information RESULTS REASON FOR VISIT ER F/U MEDICAL (GENERAL) HISTORY Type Description Date Medical [...] I&D done by Dr. 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 She has worsening back pain Treatment Notes Test Name Order Date Echocardiogram 2020-03-18 Next Appt Details 2 Weeks Reason: Insurance Providers Payer Name Payer Address Payer Phone Insured Name Patient Relati onship to Insured Coverage Start Date Coverage End Date [facility] COMMUNITY PLAN [facility] [address] [facility] [address] MYLES BLACKWELL self
--- OUTSIDE RECORDS SUMMARY | 2020-04-28 21:59 | CCD ---
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 Active 6055 5002 Problem Rheumatoid arthritis with po sitive rheumatoid factor, involving unspecified site M05.9 Active 114167068 Problem Epidural abscess, L2-L5 G06.1 Active 05741807 3 Problem Acute midline low back pain without sciatica M54.5 Active 476270704 Problem MRSA (methicillin resistant staph aureus) culture positive Z22.322 Active 570671246 Problem Bacteremia R78.81 Active 50967126901047888 Problem Surgical menopause, symptomatic E89.41 Active 955354255 Problem Methicillin resistant Staphy lococcus aureus infection as the cause of diseases classified elsewhere B95.62 Active 556869 002 Problem Generalized anxiety disorder F41.1 Active 218 91472 Problem Other specified acute skin changes due to ultraviolet radiation L56.8 Active 95695092 Problem Primary osteoarthritis, 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 Active 300727260134102 Problem Bilious vomiting with nausea R11.14 Active 714 86606 Problem Psoas muscle abscess K68.12 Active 037787498 Problem History of hepatitis C Z86.19 Active 540372732 20727 Problem Pneumonia due to infectious organism, unspecified laterality, unspecified part of lung J18.9 Active 149469496 Problem Lumbosacral radiculopathy due to degenerative chayo int disease of spine M47.27 Active 694207350 Problem Gastroesophageal reflux disease, esophagitis pre sence not specified K21.9 Active 763048286 Problem Iron deficiency anemia, unspecified iron deficiency an emia type D50.9 Active 16248124 Problem Primary osteoarthritis, right hand M19.041 Activ e 60704676 Problem Gangrene of finger I96 Active 971335508 Problem 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 Active 62507476 Problem Aphthous ulcer K12.0 Active 197413032 ALLERGIES Allergen (clinical drug ingredient) Drug/Non Drug Allergy do cumented on EMR Reaction Allergy Type Onset Date Status Sulfa (for allergy use only) Hives Drug Allergy 2019 Active Penicillin (For Allergies Use Only) Hives Drug Allerg y Active vancomycin Vancomycin HCl([facility] Code:[address]-92) Hives Drug All ergy 05/01/2019 Active sulfamethoxazole / trimethoprim Bactrim([facility] Code:[address]-05) Hives Drug Allergy 05/01/2019 Active ENCOUNTERS from 1970 to 2020-03-14 Encounter Location Date Provider Diagnosis [address] [address] Mar, Betty Jose IMMUNIZATIONS Vaccine Route Administration [...] School Language: Question Answer Notes Languages spoken: Burkinan Jehovah'S Witness: Question Answer Notes Jehovah'S Witness 08 Taoist Sexual Hx: Question Answer Notes Had sex [...] Information RESULTS No Results REASON FOR VISIT No Information MEDICAL (GENERAL) HISTORY Type Description Date Medical [...] I&D done by Dr. 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
--- OUTSIDE RECORDS SUMMARY | 2020-04-28 21:59 | CCD ---
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 Active 6055 5002 Problem Rheumatoid arthritis with po sitive rheumatoid factor, involving unspecified site M05.9 Active 991364217 Problem Epidural abscess, L2-L5 G06.1 Active 55977674 3 Problem Acute midline low back pain without sciatica M54.5 Active 355967700 Problem MRSA (methicillin resistant staph aureus) culture positive Z22.322 Active 722388336 Problem Bacteremia R78.81 Active 41750341682221790 Problem Surgical menopause, symptomatic E89.41 Active 476210634 Problem Methicillin resistant Staphy lococcus aureus infection as the cause of diseases classified elsewhere B95.62 Active 702099 002 Problem Generalized anxiety disorder F41.1 Active 218 51731 Problem Other specified acute skin changes due to ultraviolet radiation L56.8 Active 07844321 Problem Primary osteoarthritis, 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 Active 079471568803068 Problem Bilious vomiting with nausea R11.14 Active 714 00186 Problem Psoas muscle abscess K68.12 Active 918678512 Problem History of hepatitis C Z86.19 Active 712163474 37660 Problem Pneumonia due to infectious organism, unspecified laterality, unspecified part of lung J18.9 Active 728773037 Problem Lumbosacral radiculopathy due to degenerative chayo int disease of spine M47.27 Active 981958691 Problem Gastroesophageal reflux disease, esophagitis pre sence not specified K21.9 Active 435387105 Problem Iron deficiency anemia, unspecified iron deficiency an emia type D50.9 Active 25040202 Problem Primary osteoarthritis, right hand M19.041 Activ e 19052588 Problem Gangrene of finger I96 Active 242189456 Problem 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 Code:[address]-01) Hives Drug All ergy 05/01/2019 Active sulfamethoxazole / trimethoprim Bactrim([facility] Code:[address]-58) Hives Drug Allergy 05/01/2019 Active ENCOUNTERS from 1970 to 2020-03-20 Encounter Location Date Provider Diagnosis [address] [address] 11 Mar, 2020 Betty Jose Epidural abscess, L2-L5 G06.1 IMMUNIZATIONS Vaccine Route Administration Date Status Hepatitis A Adult 1.0mL (Havrix) Unknown Mar 31, 2019 Administered SOCIAL HISTORY Tobacco Use: Social History Observation Description Date Details (start date - stop date) Current Smoker Sex Assigned At : Social History Observation Description Sex Assigned At Unknown Education: Question Answer Notes Level of Education: Finished High School Language: Question Answer Notes Languages spoken: Serbian Jehovah'S Witness: Question Answer Notes Jehovah'S Witness 08 Cheondoism Sexual Hx: Question Answer Notes Had sex [...] three times daily for 30 day(s) Active Doxycycline Hyclate 100 MG 1 capsule Orally every 12 h rs until dalvance for 30 Days Active Aspirin 81 81 MG 1 tablet Orally Once a day for 30 day(s) Active Ketorolac Tromethamine 10 MG 1 tablet with food or mil k as needed Orally every 6 hrs for 5 day(s) Mar, Active Plaquenil 200 MG as directed Orally Daily for 30 days 2019 Active Diflucan 150 MG 1 tablet Orally weekly for 28 day(s) Active PROCEDURES No Information RESULTS No Results REASON FOR VISIT phone consult MEDICAL (GENERAL) HISTORY Type Description Date Medical [...] I&D done by Dr. 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 with epidural abscess measuring 7 x 2 x 19 mm with anterior epidural inflammatory changes from L3-L4 bilateral psoas abscess from L2-L5 Medical History transesophageal echocardiogr am with pediatric probe showed a tricuspid valve vegetation 0.4x 0.7 cm with moderate tricuspid regurgitation at [facility] Dr Estephanie Agosto Surgical History c-sections [...] Treatment Notes Treatm ent Clinical Notes Mar, Epidural abscess, L2-L5 (ICD-10 - G06.1) PLAN OF TREATMENT Medication Medication Name Sig Start Date Stop Date Doxycycline Hyclate 100 MG 1 capsule Orally every 12 h rs until dalvance for 30 Days Ketorolac Tromethamine 10 MG 1 tablet with food or mil k as needed Orally every 6 hrs for 5 day(s) Mar, Next Appt Details Provider Name:Lacyanna Jose, 2020-03-08 4 10:00:00 AM, [address] [place], [address], Insurance Providers Payer Name Payer Address Payer Phone Insured Name Patient Relati onship to Insured Coverage Start Date Coverage End Date [facility] COMMUNITY PLAN [facility] [address] [facility] [address] MYLES BLACKWELL self
--- OUTSIDE RECORDS SUMMARY | 2020-04-28 22:00 | CCD ---
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 Active 6055 5002 Problem Rheumatoid arthritis with po sitive rheumatoid factor, involving unspecified site M05.9 Active 692754394 Problem Epidural abscess, L2-L5 G06.1 Active 16167705 3 Problem Acute midline low back pain without sciatica M54.5 Active 663683134 Problem MRSA (methicillin resistant staph aureus) culture positive Z22.322 Active 423101868 Problem Bacteremia R78.81 Active 63954500047474677 Problem Surgical menopause, symptomatic E89.41 Active 502859612 Problem Methicillin resistant Staphy lococcus aureus infection as the cause of diseases classified elsewhere B95.62 Active 753266 002 Problem Generalized anxiety disorder F41.1 Active 218 08514 Problem Other specified acute skin changes due to ultraviolet radiation L56.8 Active 33366993 Problem Primary osteoarthritis, 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 Active 627429706622540 Problem Bilious vomiting with nausea R11.14 Active 714 62396 Problem Psoas muscle abscess K68.12 Active 294330506 Problem History of hepatitis C Z86.19 Active 272939869 18617 Problem Pneumonia due to infectious organism, unspecified laterality, unspecified part of lung J18.9 Active 595028565 Problem Lumbosacral radiculopathy due to degenerative chayo int disease of spine M47.27 Active 322403068 Problem Gastroesophageal reflux disease, esophagitis pre sence not specified K21.9 Active 452784101 Problem Iron deficiency anemia, unspecified iron deficiency an emia type D50.9 Active 09911748 Problem Primary osteoarthritis, right hand M19.041 Activ e 51369628 Problem Gangrene of finger I96 Active 448722420 Problem 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 Active 29496069 Problem Aphthous ulcer K12.0 Active 080034744 ALLERGIES Allergen (clinical drug ingredient) Drug/Non Drug Allergy do cumented on EMR Reaction Allergy Type Onset Date Status Sulfa (for allergy use only) Hives Drug Allergy 2019 Active Penicillin (For Allergies Use Only) Hives Drug Allerg y Active vancomycin Vancomycin HCl([facility] Code:[address]-80) Hives Drug All ergy 05/01/2019 Active sulfamethoxazole / trimethoprim Bactrim([facility] Code:[address]-70) Hives Drug Allergy 05/01/2019 Active ENCOUNTERS from 1970 to 2020-02-27 Encounter Location Date Provider Diagnosis [address] [address] Feb, Lacypattimauro Rebeca IMMUNIZATIONS Vaccine Route Administration Date Status Hepatitis A Adult 1.0mL (Havrix) Unknown Mar 31, 2019 Administered SOCIAL HISTORY Tobacco Use: Social History Observation Description Date Details (start date - stop date) Current Smoker Sex Assigned At : Social History Observation Description Sex Assigned At Unknown Education: Question Answer Notes Level of Education: Finished High School Language: Question Answer Notes Languages spoken: [place] Islander Yazidi: Question Answer Notes Yazidi 08 [employer] Sexual Hx: Question Answer Notes [...] many cigarettes a day do you smoke? 11- REASON FOR REFERRAL No Information VITAL SIGNS No information MEDICATIONS Medication SIG (Take, Route, Frequency, Duration) Notes Start Da te End Date Status Gabapentin 300 MG 1 capsule Orally three times daily for 30 day(s) Active SEROquel 100 MG 1/2 tablet at bedtime Orally Once a day Active Omeprazole 20 MG 1 capsule 30 minutes before morning meal Orally Daily Apr, Active Estradiol 0.5 MG 1 tablet Orally Once a day for 30 day(s) Active Diflucan 150 MG 1 tablet Orally weekly for 28 day(s) Active Phenergan 25 MG 1 tablet as needed Orally every 12 hrs for 14 da y(s) Feb, Active TraZODone HCl 100 MG 1 tablet at bedtime Orally Once a day Active SEROquel 100 MG 1 tablet at bedtime Orally Once a day for 30 Days Active Zofran 4 MG 1 tablet Orally bid for 30 day(s) Active Doxycycline Hyclate 100 MG 1 capsule Orally every 12 hrs until dalvan ce Active Meloxicam 15 MG 1 tablet Orally Once a day for 30 day(s) Sep, Active Dicyclomine HCl 20 MG 1 tablet Orally Three times a day for 14 d ay(s) Feb, Active Venlafaxine HCl ER 150 MG 1 tablet with food Orally Once a day Active Triamcinolone Acetonide 0.1 % 1 application to oral le timmy Mouth/Throat Twice a day for 30 day(s) Dec, Active Cefdinir 300 MG 1 cap Orally bid for 10 day(s) Active Aspirin 81 81 MG 1 tablet Orally Once a day for 30 day(s) Active Plaquenil 200 MG as directed Orally Daily for 30 days 2019 Active Potassium Chloride Thais ER 10 MEQ 1 tablet with food O rally Twice a day for 30 day(s) Dec, Active PROCEDURES No Information RESULTS No Results REASON FOR VISIT "feels really sick" MEDICAL (GENERAL) HISTORY Type Description Date Medical [...] I&D done by Dr. 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 with epidural abscess measuring 7 x 2 x 19 mm with anterior epidural inflammatory changes from L3-L4 bilateral psoas abscess from L2-L5 Surgical History c-sections Surgical History gall bladder Surgical History hernia Surgical History back and neck surgery Hospitalization History [facility] endocarditis 04/2019 Hospitalization History kidney failure 05/2019 Hospitalization History left finger infection 11/2019 Goals Section No Information Health Concerns No Information MEDICAL EQUIPMENT No Information MENTAL STATUS No Information FUNCTIONAL STATUS No Information ASSESSMENTS No Information PLAN OF TREATMENT Medication Medication Name Sig Start Date Stop Date Cefdinir 300 MG 1 cap Orally bid for 10 day(s) Insurance Providers Payer Name Payer Address Payer Phone Insured Name Patient Relati onship to Insured Coverage Start Date Coverage End Date [facility] COMMUNITY PLAN [facility] [address] [facility] [address] [phone] MYLES BLACKWELL self
--- OUTSIDE RECORDS SUMMARY | 2020-04-28 22:00 | CCD ---
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 Active 10996242 9 Problem Acute midline low back pain without sciatica M54.5 Active 345816187 Problem Rheumatoid arthritis with po sitive rheumatoid factor, involving unspecified site M05.9 Active 857929462 Problem Surgical menopause, symptomatic E89.41 Active 551667857 Problem Iron deficiency anemia, unspecified iron deficiency an emia type D50.9 Active 84384023 Problem Epidural abscess, L2-L5 G06.1 Active 71253518 3 Problem Psoas muscle abscess K68.12 Active 571377765 Problem Generalized anxiety disorder F41.1 Active 218 84997 Problem Other specified acute skin changes due to ultraviolet radiation L56.8 Active 21054209 Problem Aphthous ulcer K12.0 Active 896447629 Problem Lumbosacral radiculopathy due to degenerative chayo int disease of spine M47.27 Active 252607873 Problem Bacteremia R78.81 Active 33060564955483415 Problem Bilious vomiting with nausea R11.14 Active 714 78881 Problem MRSA (methicillin resistant staph aureus) culture positive Z22.322 Active 049319679 Problem Methicillin resistant Staphy lococcus aureus infection as the cause of diseases classified elsewhere B95.62 Active 067252 002 Problem Gastroesophageal reflux disease, esophagitis pre sence not specified K21.9 Active 410490955 Problem Primary osteoarthritis, 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 Active 483823893572985 Problem Primary osteoarthritis, right hand M19.041 Activ e 49848478 Problem Gangrene of finger I96 Active 627953847 Problem 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 Active 72681815 ALLERGIES Allergen (clinical drug ingredient) Drug/Non Drug Allergy do cumented on EMR Reaction Allergy Type Onset Date Status Sulfa (for allergy use only) Hives Drug Allergy 2019 Active Penicillin (For Allergies Use Only) Hives Drug Allerg y Active vancomycin Vancomycin HCl([facility] Code:[address]-12) Hives Drug All ergy 05/01/2019 Active sulfamethoxazole / trimethoprim Bactrim([facility] Code:[address]-10) Hives Drug Allergy 05/01/2019 Active ENCOUNTERS from 1970 to 2020-02-16 Encounter Location Date Provider Diagnosis [address] [address] Feb, Betty Jose IMMUNIZATIONS Vaccine Route Administration Date Status Hepatitis A Adult 1.0mL (Havrix) Unknown Mar 31, 2019 Administered SOCIAL HISTORY Tobacco Use: Social History Observation Description Date Details (start date - stop date) Current Smoker Sex Assigned At : Social History Observation Description Sex Assigned At Unknown Education: Question Answer Notes Level of Education: Finished High School Language: Question Answer Notes Languages spoken: Spanish Pentecostalism: Question Answer Notes Pentecostalism 08 Cheondoism Sexual Hx: Question Answer Notes [...] Notes Start Da te End Date Status Omeprazole 20 MG 1 capsule 30 minutes before morning meal Orally Daily Apr, Active Venlafaxine HCl ER 150 MG 1 tablet with food Orally Once a day Active Gabapentin 300 MG 1 capsule Orally three times daily for 30 day(s) Active TraZODone HCl 100 MG 1 tablet at bedtime Orally Once a day Active Triamcinolone Acetonide 0.1 % 1 application to oral le timmy Mouth/Throat Twice a day for 30 day(s) Dec, Active SEROquel 100 MG 1/2 tablet at bedtime Orally Once a day Active Plaquenil 200 MG as directed Orally Daily for 30 days 02 O 2019 Active Potassium Chloride Thais ER 10 MEQ 1 tablet with food O rally Twice a day for 30 day(s) Dec, Active Dicyclomine HCl 20 MG 1 tablet Orally Three times a day for 14 d ay(s) Feb, Active SEROquel 100 MG 1 tablet at bedtime Orally Once a day for 30 Days Active Estradiol 0.5 MG 1 tablet Orally Once a day for 30 day(s) Active Aspirin 81 81 MG 1 tablet Orally Once a day for 30 day(s) Active Meloxicam 15 MG 1 tablet Orally Once a day for 30 day(s) 1 Sep, Active Diflucan 150 MG 1 tablet Orally weekly for 28 day(s) Active Doxycycline Hyclate 100 MG 1 capsule Orally every 12 hrs until dalvan ce Active Zofran 4 MG 1 tablet Orally bid for 30 day(s) Active Phenergan 25 MG 1 tablet as needed Orally every 12 hrs for 14 da y(s) Feb, Active PROCEDURES No Information RESULTS No Results REASON FOR VISIT vomiting MEDICAL (GENERAL) HISTORY Type Description Date Medical [...] by Dr. Ricardo Marino at [facility] MRI 06/26/19 with disc vertebral osteomyelitis [...] Medication Name Sig Start Date Stop Date Phenergan 25 MG 1 tablet as needed Orally every 12 hrs f or 14 day(s) Feb, Dicyclomine HCl 20 MG 1 tablet Orally Three times a day for 14 day(s) Feb, Next Appt Details Provider Name:Betty Jose, 2019-12-1 5 12:30:00 AM, [facility] [place], [address], Insurance Providers Payer Name Payer Address Payer Phone Insured Name Patient Relati onship to Insured Coverage Start Date Coverage End Date FORMERLY [facility] COMMUN[facility] PLAN [facility] [address] [facility] [phone] MYLES BLACKWELL self
--- OUTSIDE RECORDS SUMMARY | 2020-04-28 22:00 | CCD ---
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 Active 6055 5002 Problem Rheumatoid arthritis with po sitive rheumatoid factor, involving unspecified site M05.9 Active 346741933 Problem Epidural abscess, L2-L5 G06.1 Active 21975804 3 Problem Acute midline low back pain without sciatica M54.5 Active 096131615 Problem MRSA (methicillin resistant staph aureus) culture positive Z22.322 Active 322929028 Problem Bacteremia R78.81 Active 73026850802524011 Problem Surgical menopause, symptomatic E89.41 Active 395066176 Problem Methicillin resistant Staphy lococcus aureus infection as the cause of diseases classified elsewhere B95.62 Active 447127 002 Problem Generalized anxiety disorder F41.1 Active 218 73546 Problem Other specified acute skin changes due to ultraviolet radiation L56.8 Active 47980040 Problem Primary osteoarthritis, 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 Active 744769684807846 Problem Bilious vomiting with nausea R11.14 Active 714 80978 Problem Psoas muscle abscess K68.12 Active 809751827 Problem History of hepatitis C Z86.19 Active 338274172 60269 Problem Pneumonia due to infectious organism, unspecified laterality, unspecified part of lung J18.9 Active 269896497 Problem Lumbosacral radiculopathy due to degenerative chayo int disease of spine M47.27 Active 371429621 Problem Gastroesophageal reflux disease, esophagitis pre sence not specified K21.9 Active 015660163 Problem Iron deficiency anemia, unspecified iron deficiency an emia type D50.9 Active 91493289 Problem Primary osteoarthritis, right hand M19.041 Activ e 23712418 Problem Gangrene of finger I96 Active 000168756 Problem 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 Active 49500494 Problem Aphthous ulcer K12.0 Active 542224297 ALLERGIES Allergen (clinical drug ingredient) Drug/Non Drug Allergy do cumented on EMR Reaction Allergy Type Onset Date Status Sulfa (for allergy use only) Hives Drug Allergy 2019 Active Penicillin (For Allergies Use Only) Hives Drug Allerg y Active vancomycin Vancomycin HCl([facility] Code:[address]-19) Hives Drug All ergy 05/01/2019 Active sulfamethoxazole / trimethoprim Bactrim([facility] Code:[address]-77) Hives Drug Allergy 05/01/2019 Active ENCOUNTERS from 1970 to 2020-03-11 Encounter Location Date Provider Diagnosis [address] [address] Feb, Betty Jose IMMUNIZATIONS Vaccine Route Administration [...] School Language: Question Answer Notes Languages spoken: Fijian Rastafari: Question Answer Notes Rastafari 08 Scientologist Sexual Hx: Question Answer Notes Had sex [...] many cigarettes a day do you smoke? - REASON FOR REFERRAL No Information VITAL SIGNS [...] I&D done by Dr. Ricardo Marino at [facility] MRI 06/26/19 with disc vertebral osteomyelitis [...] 1 cap Orally bid for 10 day(s) Next Appt Details Provider Name:Betty Jose, 2020-03-0 5 11:45:00 AM, [address] [place], [address], Insurance Providers Payer Name Payer Address Payer Phone Insured Name Patient Relati onship to Insured Coverage Start Date Coverage End Date FORMERLY [facility] COMMUN[facility] PLAN [facility] [address] [facility] [address] MYLES BLACKWELL self
--- OUTSIDE RECORDS SUMMARY | 2020-04-28 22:00 | CCD ---
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 Active 6055 5002 Problem Rheumatoid arthritis with po sitive rheumatoid factor, involving unspecified site M05.9 Active 583365813 Problem Epidural abscess, L2-L5 G06.1 Active 62576237 3 Problem Acute midline low back pain without sciatica M54.5 Active 735944065 Problem MRSA (methicillin resistant staph aureus) culture positive Z22.322 Active 087761204 Problem Bacteremia R78.81 Active 37937683332357148 Problem Surgical menopause, symptomatic E89.41 Active 935289615 Problem Methicillin resistant Staphy lococcus aureus infection as the cause of diseases classified elsewhere B95.62 Active 192600 002 Problem Generalized anxiety disorder F41.1 Active 218 30539 Problem Other specified acute skin changes due to ultraviolet radiation L56.8 Active 79387695 Problem Primary osteoarthritis, 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 Active 544575360330892 Problem Bilious vomiting with nausea R11.14 Active 714 12133 Problem Psoas muscle abscess K68.12 Active 484909401 Problem History of hepatitis C Z86.19 Active 963659459 23869 Problem Pneumonia due to infectious organism, unspecified laterality, unspecified part of lung J18.9 Active 204772760 Problem Lumbosacral radiculopathy due to degenerative chayo int disease of spine M47.27 Active 778786464 Problem Gastroesophageal reflux disease, esophagitis pre sence not specified K21.9 Active 240543990 Problem Iron deficiency anemia, unspecified iron deficiency an emia type D50.9 Active 76518576 Problem Primary osteoarthritis, right hand M19.041 Activ e 99306741 Problem Gangrene of finger I96 Active 705773275 Problem 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 Active 15244496 Problem Aphthous ulcer K12.0 Active 702938535 ALLERGIES Allergen (clinical drug ingredient) Drug/Non Drug Allergy do cumented on EMR Reaction Allergy Type Onset Date Status Sulfa (for allergy use only) Hives Drug Allergy 2019 Active Penicillin (For Allergies Use Only) Hives Drug Allerg y Active vancomycin Vancomycin HCl([facility] Code:[address]-50) Hives Drug All ergy 05/01/2019 Active sulfamethoxazole / trimethoprim Bactrim([facility] Code:[address]-60) Hives Drug Allergy 05/01/2019 Active ENCOUNTERS from 1970 to 2020-03-11 Encounter Location Date Provider Diagnosis [address] [address] 15 Feb, 2020 Lacylenmauro Rebeca Pneumonia due to infectious organism, un specified laterality, unspecified part of lung J18.9 ; Methicillin resistant Staphylococcus aureus infection as the cause of diseases classified elsewhere B95.62 ; Iron deficiency anemia, unspecified iron deficiency anemia type D50.9 and History of hepatitis C Z86.19 IMMUNIZATIONS Vaccine Route Administration Date Status Hepatitis A Adult 1.0mL (Havrix) Unknown Mar 31, 2019 Administered SOCIAL HISTORY Tobacco Use: Social History Observation Description Date Details (start date - stop date) Current Smoker Sex Assigned At : Social History Observation Description Sex Assigned At Unknown Education: Question Answer Notes Level of Education: Finished High School Language: Question Answer Notes Languages spoken: Maori Gnosticist: Question Answer Notes Gnosticist 08 Yazidi Sexual Hx: Question Answer Notes Had sex [...] day for 30 day(s) 1 Sep, Active Dicyclomine HCl 20 MG 1 [...] Information RESULTS No Results REASON FOR VISIT 2 week follow up MEDICAL (GENERAL) HISTORY Type Description Date Medical [...] Ricardo Marino at [facility] 06/26/19 with 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 [...] Notes Treatment Notes Treatm ent Clinical Notes Feb, Pneumonia due to infectious organism, unspecified laterality, unspecified part of lung (ICD-10 - J18.9) Feb, Methicillin resistant Staphy lococcus aureus infection as the cause of diseases classified elsewhere (ICD-10 - B95.62) Patient had labs and blood cultures done today at [facility] She has cough with brown phlegm for 10 days, sore throat and low grade fever Feb, Iron deficiency anemia, unsp ecified iron deficiency anemia type (ICD-10 - D50.9) Feb, History of hepatitis C (ICD-10 - Z86.19) Repeat hepatitis C quant RNA ordered and LFT PLAN OF TREATMENT Medication Medication Name Sig Start Date Stop Date Cefdinir 300 MG 1 cap Orally bid for 10 day(s) Treatment Notes Assessment Notes Clinical Notes Methicillin resistant Staphylococcus aur eus infection as the cause of diseases classified elsewhere [facility], sore throat and low grade fever History of hepatitis C Repeat hepatitis C quant RNA ordered and LFT Treatment Notes Test Name Order Date Chest X-ray PA and lateral 2020-03-11 Next Appt Details 1 Week Reason: Provider Name:Alessandramauro [place], 5 11:45:00 AM, [address] [place], [address], Insurance Providers Payer Name Payer Address Payer Phone Insured Name Patient Relati onship to Insured Coverage Start Date Coverage End Date FOR[facility]LY [facility] [address] [facility] [address] MYLES BLACKWELL self
--- OUTSIDE RECORDS SUMMARY | 2020-04-28 22:02 | CCD ---
Author Author [facility] Organization [facility] Address Unknown Phone Unavailable Care Team Providers Care Precision Grinder Name Role Phone Yvonne ALCALA Unavailable Unavailable Estella Casillas MD Unavailable Unavailable Estella Casillas MD Unavailable Unavailable Estella Casillas MD Unavailable Unavailable Estella Casillas MD Unavailable Unavailable Estella Casillas MD Unavailable Unavailable Estella Casillas MD Unavailable Unavailable Estella Casillas MD Unavailable Unavailable Estella Casillas MD Unavailable Unavailable Estella Casillas MD Unavailable Unavailable KabbliEstella MD Unavailable Unavailable KabbliEstella MD Unavailable Unavailable KabbliEstella MD Unavailable Unavailable KabbliEstella MD Unavailable Unavailable KabbliEstella MD Unavailable Unavailable KabbliEstella MD Unavailable Unavailable KabbliEstella MD Unavailable Unavailable KabbliEstella MD Unavailable Unavailable KabbliEstella MD Unavailable Unavailable KabbliEstella MD Unavailable Unavailable KabbliEstella MD Unavailable Unavailable KabbliEstella MD Unavailable Unavailable KabbliEstella MD Unavailable Unavailable KabbliEstella MD Unavailable Unavailable KabbEstella haskins MD Unavailable Unavailable KabbEstella haskins MD Unavailable Unavailable KaEstella garcia MD Unavailable Unavailable KaEstella garcia MD Unavailable Unavailable KabbEstella haskins MD Unavailable Unavailable KaEstella garcia MD Unavailable Unavailable KaEstella garcia MD Unavailable Unavailable Estella Casillas MD Unavailable Unavailable KaEstella garcia MD Unavailable Unavailable KabbEstella haskins MD Unavailable Unavailable Zeke Puri Unavailable Unavailable ALIASES , DEFAULT / GENERIC / UNKNOWN PROVIDER * Unavailable Unavailable ALIASES , DEFAULT / GENERIC / UNKNOWN PROVIDER * Unavailable Unavailable ALIASES , DEFAULT / GENERIC / UNKNOWN PROVIDER * Unavailable Unavailable ALIASES , DEFAULT / GENERIC / UNKNOWN PROVIDER * Unavailable Unavailable ALIASES , DEFAULT / GENERIC / UNKNOWN PROVIDER * Unavailable Unavailable ALIASES , DEFAULT / GENERIC / UNKNOWN PROVIDER * Unavailable Unavailable ALIASES , DEFAULT / GENERIC / UNKNOWN PROVIDER * Unavailable Unavailable ALIASES , DEFAULT / GENERIC / UNKNOWN PROVIDER * Unavailable Unavailable ALIASES , DEFAULT / GENERIC / UNKNOWN PROVIDER * Unavailable Unavailable ALIASES , DEFAULT / GENERIC / UNKNOWN PROVIDER * Unavailable Unavailable ALIASES , DEFAULT / GENERIC / UNKNOWN PROVIDER * Unavailable Unavailable ALIASES , DEFAULT / GENERIC / UNKNOWN PROVIDER * Unavailable Unavailable ALIASES , DEFAULT / GENERIC / UNKNOWN PROVIDER * Unavailable Unavailable ALIASES , DEFAULT / GENERIC / UNKNOWN PROVIDER * Unavailable Unavailable ALIASES , DEFAULT / GENERIC / UNKNOWN PROVIDER * Unavailable Unavailable ALIASES , DEFAULT / GENERIC / UNKNOWN PROVIDER * Unavailable Unavailable ALIASES , DEFAULT / GENERIC / UNKNOWN PROVIDER * Unavailable Unavailable ALIASES , DEFAULT / GENERIC / UNKNOWN PROVIDER * Unavailable Unavailable ALIASES , DEFAULT / GENERIC / UNKNOWN PROVIDER * Unavailable Unavailable ALIASES , DEFAULT / GENERIC / UNKNOWN PROVIDER * Unavailable Unavailable ALIASES , DEFAULT / GENERIC / UNKNOWN PROVIDER * Unavailable Unavailable ALIASES , DEFAULT / GENERIC / UNKNOWN PROVIDER * Unavailable Unavailable ALIASES , DEFAULT / GENERIC / UNKNOWN PROVIDER * Unavailable Unavailable ALIASES , DEFAULT / GENERIC / UNKNOWN PROVIDER * Unavailable Unavailable ALIASES , DEFAULT / GENERIC / UNKNOWN PROVIDER * Unavailable Unavailable ALIASES , DEFAULT / GENERIC / UNKNOWN PROVIDER * Unavailable Unavailable ALIASES , DEFAULT / GENERIC / UNKNOWN PROVIDER * Unavailable Unavailable ALIASES , DEFAULT / GENERIC / UNKNOWN PROVIDER * Unavailable Unavailable ALIASES , DEFAULT / GENERIC / UNKNOWN PROVIDER * Unavailable Unavailable ALIASES , DEFAULT / GENERIC / UNKNOWN PROVIDER * Unavailable Unavailable ALIASES , DEFAULT / GENERIC / UNKNOWN PROVIDER * Unavailable Unavailable ALIASES , DEFAULT / GENERIC / UNKNOWN PROVIDER * Unavailable Unavailable ALIASES , DEFAULT / GENERIC / UNKNOWN PROVIDER * Unavailable Unavailable ALIASES , DEFAULT / GENERIC / UNKNOWN PROVIDER * Unavailable Unavailable ALIASES , DEFAULT / GENERIC / UNKNOWN PROVIDER * Unavailable Unavailable ALIASES , DEFAULT / GENERIC / UNKNOWN PROVIDER * Unavailable Unavailable ALIASES , DEFAULT / GENERIC / UNKNOWN PROVIDER * Unavailable Unavailable ALIASES , DEFAULT / GENERIC / UNKNOWN PROVIDER * Unavailable Unavailable ALIASES , DEFAULT / GENERIC / UNKNOWN PROVIDER * Unavailable Unavailable ALIASES , DEFAULT / GENERIC / UNKNOWN PROVIDER * Unavailable Unavailable ALIASES , DEFAULT / GENERIC / UNKNOWN PROVIDER * Unavailable Unavailable ALIASES , DEFAULT / GENERIC / UNKNOWN PROVIDER * Unavailable Unavailable ALIASES , DEFAULT / GENERIC / UNKNOWN PROVIDER * Unavailable Unavailable ALIASES , DEFAULT / GENERIC / UNKNOWN PROVIDER * Unavailable Unavailable ALIASES , DEFAULT / GENERIC / UNKNOWN PROVIDER * Unavailable Unavailable ALIASES , DEFAULT / GENERIC / UNKNOWN PROVIDER * Unavailable Unavailable ALIASES , DEFAULT / GENERIC / UNKNOWN PROVIDER * Unavailable Unavailable ALIASES , DEFAULT / GENERIC / UNKNOWN PROVIDER * Unavailable Unavailable ALIASES , DEFAULT / GENERIC / UNKNOWN PROVIDER * Unavailable Unavailable ALIASES , DEFAULT / GENERIC / UNKNOWN PROVIDER * Unavailable Unavailable ALIASES , DEFAULT / GENERIC / UNKNOWN PROVIDER * Unavailable Unavailable ALIASES , DEFAULT / GENERIC / UNKNOWN PROVIDER * Unavailable Unavailable ALIASES , DEFAULT / GENERIC / UNKNOWN PROVIDER * Unavailable Unavailable BolGeoffrey del angel MD Unavailable Unavailable Bolla, Geoffrey Winter MD Unavailable Unavailable Bolla, Geoffrey Winter MD Unavailable Unavailable Bolla, Geoffrey Winter MD Unavailable Unavailable Bolla, Geoffrey Winter MD Unavailable Unavailable Bolla, Geoffrey Winter MD Unavailable Unavailable Bolla, Geoffrey Winter MD Unavailable Unavailable Bolla, Geoffrey Winter MD Unavailable Unavailable Bolla, Geoffrey Winter MD Unavailable Unavailable Bolla, Geoffrey Winter MD Unavailable Unavailable Bolla, Geoffrey Winter MD Unavailable Unavailable Bolla, S Moy HOFFMANN Unavailable Unavailable Bolla, Geoffrey Winter MD Unavailable Unavailable Bolla, Geoffrey Winter MD Unavailable Unavailable Bolla, Geoffrey Winter MD Unavailable Unavailable Bolla, Geoffrey Winter MD Unavailable Unavailable Bolbean, Geoffrey Winter MD Unavailable Unavailable Bolla, Geoffrey Winter MD Unavailable Unavailable Bolbean, Geoffrey Winter MD Unavailable Unavailable Bolbean, Geoffrey Winter MD Unavailable Unavailable Bolbean, Geoffrey Winter MD Unavailable Unavailable Bolla, Geoffrey Winter MD Unavailable Unavailable BolGeoffrey del angel MD Unavailable Unavailable BolGeoffrey del angel MD Unavailable Unavailable BolGeoffrey del angel MD Unavailable Unavailable BolGeoffrey del angel MD Unavailable Unavailable Bolbean, Geoffrey Winter MD Unavailable Unavailable Bolbean, Geoffrey Winter MD Unavailable Unavailable BolGeoffrey del angel MD Unavailable Unavailable BolGeoffrey del angel MD Unavailable Unavailable BolGeoffrey del angel MD Unavailable Unavailable Bolbean, Geoffrey Winter MD Unavailable Unavailable BolGeoffrey del angel MD Unavailable Unavailable BolGeoffrey del angel MD Unavailable Unavailable BolGeoffrey del angel MD Unavailable Unavailable BolGeoffrey del angel MD Unavailable Unavailable BollaGeoffrey MD Unavailable Unavailable Bolbean, Geoffrey Winter MD Unavailable Unavailable Bolla, Geoffrey Winter MD Unavailable Unavailable Bolbean, Geoffrey Winter MD Unavailable Unavailable Bolla, Geoffrey Winter MD Unavailable Unavailable Bolbean, Geoffrey Winter MD Unavailable Unavailable Bolbean, Geoffrey Winter MD Unavailable Unavailable Bolla, Geoffrey Winter MD Unavailable Unavailable Bolbean, Geoffrey Winter MD Unavailable Unavailable Bolla, Geoffrey Winter MD Unavailable Unavailable Bolla, Geoffrey Winter MD Unavailable Unavailable Geoffrey Saravia MD Unavailable Unavailable RACHEL VALERO MD Unavailable Unavailable RACHEL VALERO MD Unavailable Unavailable RACHEL VALERO MD Unavailable Unavailable RACHEL VALERO MD Unavailable Unavailable RACHEL VALERO MD Unavailable Unavailable RACHEL VALERO MD Unavailable Unavailable RACHEL VALERO MD Unavailable Unavailable RACHEL VALERO MD Unavailable Unavailable RACHEL VALERO MD Unavailable Unavailable RACHEL VALERO MD Unavailable Unavailable RACHEL VALERO MD Unavailable Unavailable RACHEL VALERO MD Unavailable Unavailable SUSAN, Andra SOLIS MD Unavailable Unavailable SUSAN, Andra SOLIS MD Unavailable Unavailable SUSAN, Andra SOLIS MD Unavailable Unavailable SUSAN, Andra SOLIS MD Unavailable Unavailable SUSAN, Andra SOLIS MD Unavailable Unavailable SUSAN, Andra SOLIS MD Unavailable Unavailable SUSAN, Andra SOLIS MD Unavailable Unavailable SUSAN, Andra SOLIS MD Unavailable Unavailable SUSAN, Andra SOLIS MD Unavailable Unavailable SUSAN, Andra SOLIS MD Unavailable Unavailable SUSAN, Andra SOLIS MD Unavailable Unavailable SUSANAndra MCKENNA MD Unavailable Unavailable SUSANAndra MCKENNA MD Unavailable Unavailable SUSANAndra MCKENNA MD Unavailable Unavailable SUSANAndra MCKENNA MD Unavailable Unavailable SUSAN, Andra SOLIS MD Unavailable Unavailable SUSAN, Andra SOLIS MD Unavailable Unavailable SUSAN, Andra SOLIS MD Unavailable Unavailable SUSAN, Andra SOLIS MD Unavailable Unavailable SUSANAndra MCKENNA MD Unavailable Unavailable SUSAN, Andra SOLIS MD Unavailable Unavailable SUSAN, Andra SOLIS MD Unavailable Unavailable SUSANAndra MCKENNA MD Unavailable Unavailable SUSANAndra MCKENNA MD Unavailable Unavailable SUSANAndra MCKENNA MD Unavailable Unavailable SUSANAndra MCKENNA MD Unavailable Unavailable SUSANAndra MCKENNA MD Unavailable Unavailable SUSANAndra MCKENNA MD Unavailable Unavailable SUSANAndra MCKENNA MD Unavailable Unavailable SUSANAndra MCKENNA MD Unavailable Unavailable SUSANAndra MCKENNA MD Unavailable Unavailable SUSANAndra MCKENNA MD Unavailable Unavailable SUSANAndra MCKENNA MD Unavailable Unavailable SUSANAndra MCKENNA MD Unavailable Unavailable SUSANAndra MCKENNA MD Unavailable Unavailable SUSANAndra MCKENNA MD Unavailable Unavailable SUSANAndra MCKENNA MD Unavailable Unavailable SUSANAndra MCKENNA MD Unavailable Unavailable SUSANAndra MCKENNA MD Unavailable Unavailable SUSANAndra MCKENNA MD Unavailable Unavailable SUSANAndra MCKENNA MD Unavailable Unavailable SUSANAndra MCKENNA MD Unavailable Unavailable SUSANAndra MCKENNA MD Unavailable Unavailable SUSANAndra MCKENNA MD Unavailable Unavailable SUSANAndra MCKENNA MD Unavailable Unavailable SUSANAndra MCKENNA MD Unavailable Unavailable SUSAN, Andra SOLIS MD Unavailable Unavailable SUSAN, Andra SOLIS MD Unavailable Unavailable SUSAN, Andra SOLIS MD Unavailable Unavailable SUSAN, Andra SOLIS MD Unavailable Unavailable SUSAN, Andra SOLIS MD Unavailable Unavailable SUSAN, Andra SOLIS MD Unavailable Unavailable SUSAN, Andra SOLIS MD Unavailable Unavailable SUSAN, Andra SOLIS MD Unavailable Unavailable SUSAN, Andra SOLIS MD Unavailable Unavailable SUSAN, Andra SOLIS MD Unavailable Unavailable SUSAN, Andra SOLIS MD Unavailable Unavailable SUSAN, Andra SOLIS MD Unavailable Unavailable SUSAN, Andra SOLIS MD Unavailable Unavailable SUSAN, Andra SOLIS MD Unavailable Unavailable SUSAN, Andra SOLIS MD Unavailable Unavailable SUSAN, Andra SOLIS MD Unavailable Unavailable SUSAN, Andra SOLIS MD Unavailable Unavailable SUSAN, Andra SOLIS MD Unavailable Unavailable SUSAN, Andra SOLIS MD Unavailable Unavailable SUSAN, Andra SOLIS MD Unavailable Unavailable SUSAN, Andra SOLIS MD Unavailable Unavailable SUSAN, Andra SOLIS MD Unavailable Unavailable SUSAN, Andra SOLIS MD Unavailable Unavailable SUSAN, Andra SOLIS MD Unavailable Unavailable SUSAN, Andra SOLIS MD Unavailable Unavailable SUSAN, Andra SOLIS MD Unavailable Unavailable SUSAN, Andra SOLIS MD Unavailable Unavailable SUSAN, Andra SOLIS MD Unavailable Unavailable SUSAN, Andra SOLIS MD Unavailable Unavailable SUSAN, Andra SOLIS MD Unavailable Unavailable SUSAN, Andra SOLIS MD Unavailable Unavailable SUSAN, Andra SOLIS MD Unavailable Unavailable SUSAN, Andra SOLIS MD Unavailable Unavailable SUSAN, Andra SOLIS MD Unavailable Unavailable SUSAN, Andra SOLIS MD Unavailable Unavailable SUSAN, Andra SOLIS MD Unavailable Unavailable SUSAN, Andra SOLIS MD Unavailable Unavailable SUSAN, Andra SOLIS MD Unavailable Unavailable SUSAN, Andra SOLIS MD Unavailable Unavailable SUSAN, Andra SOLIS MD Unavailable Unavailable SUSAN, Andra SOLIS MD Unavailable Unavailable SUSAN, Andra SOLIS MD Unavailable Unavailable SUSAN, Andra SOLIS MD Unavailable Unavailable SUSAN, Andra SOLIS MD Unavailable Unavailable SUSAN, Andra SOLIS MD Unavailable Unavailable Milind Cannon MD Unavailable Unavailable Milind Cannon MD Unavailable Unavailable Milind Cannon MD Unavailable Unavailable Milind Cannon MD Unavailable Unavailable Milind Cannon MD Unavailable Unavailable Milind Cannon MD Unavailable Unavailable Milind Cannon MD Unavailable Unavailable Milind Cannon MD Unavailable Unavailable Milind Cannon MD Unavailable Unavailable Milind Cannon MD Unavailable Unavailable Milind Cannon MD Unavailable Unavailable Milind Cannon MD Unavailable Unavailable Milind Cannon MD Unavailable Unavailable Milind Cannon MD Unavailable Unavailable HeMilind gonzalez MD Unavailable Unavailable HeitMilind braswell MD Unavailable Unavailable HeitMilind braswell MD Unavailable Unavailable HeitMilind braswell MD Unavailable Unavailable HeitMilind braswell MD Unavailable Unavailable HeitMilind braswell MD Unavailable Unavailable HeitMilind braswell MD Unavailable Unavailable HeitMilind braswell MD Unavailable Unavailable HeitMilind braswell MD Unavailable Unavailable HeitMilind braswell MD Unavailable Unavailable HeitMilind braswell MD Unavailable Unavailable HeitMilind braswell MD Unavailable Unavailable Guille, Lopez MD Unavailable Unavailable Guille, Lopez MD Unavailable Unavailable Guille, Lopez MD Unavailable Unavailable Guille, Lopez MD Unavailable Unavailable Guille, Lopez MD Unavailable Unavailable Guille, Lopez MD Unavailable Unavailable Guille, Lopez MD Unavailable Unavailable Guille, Lopez MD Unavailable Unavailable Guille, Lopez MD Unavailable Unavailable Guille, Lopez MD Unavailable Unavailable Guille, Lopez MD Unavailable Unavailable Guille, Lopez MD Unavailable Unavailable SYSTEM, NOT IN PROVIDER Unavailable Unavailable Demetrice Gilliam MD Unavailable Unavailable Demetrice Gilliam MD Unavailable Unavailable Demetrice Gilliam MD Unavailable Unavailable Demetrice Gilliam MD Unavailable Unavailable Demetrice Gilliam MD Unavailable Unavailable Demetrice Gilliam MD Unavailable Unavailable Demetrice Gilliam MD Unavailable Unavailable Demetrice Gilliam MD Unavailable Unavailable Demetrice Gilliam MD Unavailable Unavailable Demetrice Gilliam MD Unavailable Unavailable Demetrice Gilliam MD Unavailable Unavailable Demetrice Gilliam MD Unavailable Unavailable Demetrice Gilliam MD Unavailable Unavailable Demetrice Gilliam MD Unavailable Unavailable Demetrice Gilliam MD Unavailable Unavailable Demetrice Gilliam MD Unavailable Unavailable Demetrice Gilliam MD Unavailable Unavailable Demetrice Gilliam MD Unavailable Unavailable Demetrice Gilliam MD Unavailable Unavailable Demetrice Gilliam MD Unavailable Unavailable Demetrice Gilliam MD Unavailable Unavailable Demetrice Gilliam MD Unavailable Unavailable Demetrice Gilliam MD Unavailable Unavailable Demetrice Gilliam MD Unavailable Unavailable Demetrice Gilliam MD Unavailable Unavailable Demetrice Gilliam MD Unavailable Unavailable Demetrice Gilliam MD Unavailable Unavailable Demetrice Gilliam MD Unavailable Unavailable Demetrice Gilliam MD Unavailable Unavailable Demetrice Gilliam MD Unavailable Unavailable Demetrice Gilliam MD Unavailable Unavailable Demetrice Gilliam MD Unavailable Unavailable Demetrice Gilliam MD Unavailable Unavailable Demetrice Gilliam MD Unavailable Unavailable Demetrice Gilliam MD Unavailable Unavailable Demetrice Gilliam MD Unavailable Unavailable Demetrice Gilliam MD Unavailable Unavailable Demetrice Gilliam MD Unavailable Unavailable Demetrice Gilliam MD Unavailable Unavailable Demetrice Gilliam MD Unavailable Unavailable Demetrice Gilliam MD Unavailable Unavailable Demetrice Gilliam MD Unavailable Unavailable Demetrice Gilliam MD Unavailable Unavailable Demetrice Gilliam MD Unavailable Unavailable Beatriz Jose MD Unavailable Unavailable Beatriz Jose MD Unavailable Unavailable Beatriz Jose MD Unavailable Unavailable Beatriz Jose MD Unavailable Unavailable Beatriz Jose MD Unavailable Unavailable Beatriz Jose MD Unavailable Unavailable Beatriz Jose MD Unavailable Unavailable Beatriz Jose MD Unavailable Unavailable Beatriz Jose MD Unavailable Unavailable Beatriz Jose MD Unavailable Unavailable Beatriz Jose MD Unavailable Unavailable Beatriz Jose MD Unavailable Unavailable Beatriz Jose MD Unavailable Unavailable Beatriz Jose MD Unavailable Unavailable Beatriz Jose MD Unavailable Unavailable Beatriz Jose MD Unavailable Unavailable Beatriz Jose MD Unavailable Unavailable Beatriz Jose MD Unavailable Unavailable Beatriz Jose MD Unavailable Unavailable Beatriz Jose MD Unavailable Unavailable Beatriz Jose MD Unavailable Unavailable Beatriz Jose MD Unavailable Unavailable Beatriz Jose MD Unavailable Unavailable Beatriz Jose MD Unavailable Unavailable Beatriz Jose MD Unavailable Unavailable Beatriz Jose MD Unavailable Unavailable Beatriz Jose MD Unavailable Unavailable Beatriz Jose MD Unavailable Unavailable Beatriz Jose MD Unavailable Unavailable Beatriz Jose MD Unavailable Unavailable Beatriz Jose MD Unavailable Unavailable Beatriz Jose MD Unavailable Unavailable Beatriz Jose MD Unavailable Unavailable Beatriz Jose MD Unavailable Unavailable Beatriz Jose MD Unavailable Unavailable Beatriz Jose MD Unavailable Unavailable Beatriz Jose MD Unavailable Unavailable Beatriz Jose MD Unavailable Unavailable Beatriz Jose MD Unavailable Unavailable Beatriz Jose MD Unavailable Unavailable Beatriz Jose MD Unavailable Unavailable Beatriz Jose MD Unavailable Unavailable Beatriz Jose MD Unavailable Unavailable Beatriz Jose MD Unavailable Unavailable Beatriz Jose MD Unavailable Unavailable Beatrzi Jose MD Unavailable Unavailable Beatriz Jose MD Unavailable Unavailable Beatriz Jose MD Unavailable Unavailable Beatriz Jose MD Unavailable Unavailable Beatriz Jose MD Unavailable Unavailable Beatriz Jose MD Unavailable Unavailable Beatriz Jose MD Unavailable Unavailable Beatriz Jose MD Unavailable Unavailable Beatriz Jose MD Unavailable Unavailable Beatriz Jose MD Unavailable Unavailable Beatriz Jose MD Unavailable Unavailable Beatriz Jose MD Unavailable Unavailable Beatriz Jose MD Unavailable Unavailable Beatriz Jose MD Unavailable Unavailable Beatriz Jose MD Unavailable Unavailable Beatriz Jose MD Unavailable Unavailable Beatriz Jose MD Unavailable Unavailable Beatriz Jose MD Unavailable Unavailable Beatriz Jose MD Unavailable Unavailable Beatriz Jose MD Unavailable Unavailable Beatriz Jose MD Unavailable Unavailable Beatriz Jose MD Unavailable Unavailable Beatriz Jose MD Unavailable Unavailable Beatriz Jose MD Unavailable Unavailable Beatriz Jose MD Unavailable Unavailable Beatriz Jose MD Unavailable Unavailable Beatriz Jose MD Unavailable Unavailable Beatriz Jose MD Unavailable Unavailable Beatriz Jose MD Unavailable Unavailable Beatriz Jose MD Unavailable Unavailable Beatriz Jose MD Unavailable Unavailable Beatriz Jose MD Unavailable Unavailable Beatriz Jose MD Unavailable Unavailable Beatriz Jose MD Unavailable Unavailable Beatriz Jose MD Unavailable Unavailable Beatriz Jose MD Unavailable Unavailable Beatriz Jose MD Unavailable Unavailable Beatriz Jose MD Unavailable Unavailable Beatriz Jose MD Unavailable Unavailable Beatriz Jose MD Unavailable Unavailable Beatriz Jose MD Unavailable Unavailable Beatriz Jose MD Unavailable Unavailable Beatriz Jose MD Unavailable Unavailable Beatriz Jose MD Unavailable Unavailable Beatriz Jose MD Unavailable Unavailable Beatriz Jose MD Unavailable Unavailable Beatriz Jose MD Unavailable Unavailable Beatriz Jose MD Unavailable Unavailable Beatriz Jose MD Unavailable Unavailable Beatriz Jose MD Unavailable Unavailable Rebeca, Beatriz Aparicioe MD Unavailable Unavailable Rebeca, Beatriz Houselene MD Unavailable Unavailable Rebeca, J Lacylene MD Unavailable Unavailable Rebeca, J Lacylene MD Unavailable Unavailable Rebeca, J Lacylene MD Unavailable Unavailable Rebeca, J Lacylene MD Unavailable Unavailable Rebeca, J Lacylene MD Unavailable Unavailable Rebeca, J Lacylene MD Unavailable Unavailable Rebeca, J Lacylene MD Unavailable Unavailable Rebeca, J Lacylene MD Unavailable Unavailable Rebeca, J Lacylene MD Unavailable Unavailable Rebeca, J Lacylene MD Unavailable Unavailable Rebeca, J Lacylene MD Unavailable Unavailable Re-disclosure Warning The records that you are about to access may contain information from federally-assisted alcohol or drug abuse programs. If such information is present, then the following federally mandated warning applies: This information has been disclosed to you from records protected by federal confidentiality rules (42 CFR part 2). The federal rules prohibit you from making any further disclosure of this information unless further disclosure is expressly permitted by the written consent of the person to whom it pertains or as otherwise permitted by 42 CFR part 2. A general authorization for the release of medical or other information is NOT sufficient for this purpose. The Federal rules restrict any use of the information to criminally investigate or prosecute any alcohol or drug abuse patient.The records that you are about to access may contain highly sensitive health information, the redisclosure of which is protected by Article 27-F of the [facility] Public Health law. If you continue you may have access to information: Regarding HIV / AIDS; Provided by facilities licensed or operated by the [facility] Office of Mental Health; or Provided by the [facility] Office for People With Developmental Disabilities. If such information is present, then the following [facility] mandated warning applies: This information has been disclosed to you from confidential records which are protected by state law. State law prohibits you from making any further disclosure of this information without the specific written consent of the person to whom it pertains, or as otherwise permitted by law. Any unauthorized further disclosure in violation of state law may result in a fine or halfway sentence or both. A general authorization for the release of medical or other information is NOT sufficient authorization for further disc losure. Allergies and Adverse Reactions Type Description Substance Reaction Status Data Source(s ) Drug allergy Bactrim sulfamethoxazole / trimethoprim Hives Ac tive eCW1 ([facility]) Drug allergy Vancomycin HCl Vancomycin Hives Active eCW1 ([facility]) Propensity to adverse reactions Sulfa (for allergy use only) Propensity to adverse reactions Hives Active eCW1 ([facility]) Propensity to adverse reactions Sulfa (for allergy use only) Propensity to adverse reactions Hives Active eCW1 ([facility]) Propensity to adverse reactions Sulfa (for allergy use only) Propensity to adverse reactions Hives Active eCW1 ([facility]) Drug allergy Sulfa (for allergy use only) Drug allergy Hives Act delmis eCW1 ([facility]) Drug allergy Sulfa (for allergy use only) Drug allergy Hives Act delmis eCW1 ([facility]) Drug allergy Sulfa (for allergy use only) Drug allergy Hives Act delmis eCW1 ([facility]) Drug allergy Sulfa (for allergy use only) Drug allergy Hives Act delmis eCW1 ([facility]) Drug allergy Sulfa (for allergy use only) Drug allergy Hives Act delmis eCW1 ([facility]) Drug allergy Sulfa (for allergy use only) Drug allergy Hives Act delmis eCW1 ([facility]) Drug allergy Sulfa (for allergy use only) Drug allergy Hives Act delmis eCW1 ([facility]) Drug allergy Sulfa (for allergy use only) Drug allergy Hives Act delmis eCW1 ([facility]) Drug allergy Sulfa (for allergy use only) Drug allergy Hives Act delmis eCW1 ([facility]) Drug allergy Sulfa (for allergy use only) Drug allergy Hives Act delmis eCW1 ([facility]) Drug allergy Sulfa (for allergy use only) Drug allergy Hives Act delmis eCW1 ([facility]) Drug allergy Sulfa (for allergy use only) Drug allergy Hives Act delmis eCW1 ([facility]) Drug allergy Sulfa (for allergy use only) Drug allergy Hives Act delmis eCW1 ([facility]) Drug allergy Sulfa (for allergy use only) Drug allergy Hives Act delmis eCW1 ([facility]) Drug allergy Sulfa (for allergy use only) Drug allergy Hives Act delmis eCW1 ([facility]) Drug allergy Sulfa (for allergy use only) Drug allergy Hives Act delmis eCW1 ([facility]) Drug allergy Sulfa (for allergy use only) Drug allergy Hives Act delmis eCW1 ([facility]) Drug allergy Sulfa (for allergy use only) Drug allergy Hives Act delmis eCW1 ([facility]) Drug allergy Sulfa (for allergy use only) Drug allergy Hives Act delmis eCW1 ([facility]) Drug allergy Sulfa (for allergy use only) Drug allergy Hives Act delmis eCW1 ([facility]) Drug allergy Sulfa (for allergy use only) Drug allergy Hives Act delmis eCW1 ([facility]) Drug allergy Sulfa (for allergy use only) Drug allergy Hives Act delmis eCW1 ([facility]) Drug allergy Sulfa (for allergy use only) Drug allergy Hives Act delmis eCW1 ([facility]) Drug allergy Sulfa (for allergy use only) Drug allergy Hives Act delmis eCW1 ([facility]) Drug allergy Sulfa (for allergy use only) Drug allergy Hives Act delmis eCW1 ([facility]) Drug allergy Sulfa (for allergy use only) Drug allergy Hives Act delmis eCW1 ([facility]) Encounters Encounter Providers Location Date Indications Data Source(s ) Emergency Attender: CLAY LOPEZ OConsultant: DEFAULT / GENERIC / UNKNOWN PROVIDER ALIASES 04/28/2020 04:02: 00 PM EST - 04/28/2020 08:13:00 PM EST [facility] Patient discharged. Outpatient Attender: IRMA DAVIS MD [id number] 04/25/2020 1 2:00:00 AM EST Osteomyelitis of vertebra, lumbar region [facility] Osteomyelitis of vertebra, lumbar region Outpatient Attender: IRMA DAVIS MD 04/25/2020 12:00:0 0 AM [facility] Outpatient Attender: IRMA DAVIS MD 04/25/2020 12:00:0 0 AM [facility] [place] [address] [facility] [address] 03/26/2020 12:00:00 AM EST eCW1 ([facility]) Outpatient [address] [facility] [place] [address] 03/21/2020 12:00:00 AM EST eCW1 ([facility]) [place] [address] [facility] [address] 03/21/2020 12:00:00 AM EST eCW1 ([facility]) Outpatient Attender: IRMA DAVIS MD [id number] 03/18/2020 1 2:00:00 AM [facility] Unknown [address] [facility] [address] 03/18/2020 12:00:00 AM EST eCW1 ([facility]) [place] [address] [facility] [address] 03/13/2020 12:00:00 AM EST eCW1 ([facility]) Unknown [address] [facility] [place] [address] 03/13/2020 12:00:00 AM EST eCW1 ([facility]) Outpatient [address] [facility] [place] [address] 03/12/2020 12:00:00 AM EST eCW1 ([facility]) [place] [address] [facility] [address] 03/05/2020 12:00:00 AM EST eCW1 ([facility]) Unknown [address] [facility] [place] [address] 02/26/2020 12:00:00 AM EST eCW1 ([facility]) Outpatient Attender: Betty Jose MD 02/20 02:14:26 PM EST - 02/21/2020 09:06:[address] [facility] Patient discharged. Outpatient Attender: Betty Jose MD 02/20/2020 10:56:00 AM EST B95.52 [facility] [id number] [facility]: DEFAULT / GENERIC / UNKNOWN PROVIDER ALIASES 02/20/2020 10:34:00 AM ES T - 02/20/2020 11:34:00 AM EST [facility] TeleMedicine Est. Pt. Level 3 [address] [place] [address] 02/20/2020 12:00:00 AM EST eCW1 ([facility] Unknown [address] [facility] [address] 02/20/2020 12:00:00 AM EST eCW1 ([facility]) Unknown [address] [facility] [address] 02/19/2020 12:00:00 AM EST [facility] [place] Unknown [address] [facility] [address] 02/14/2020 12:00:00 AM EST [facility] [place] [address] [facility] [address] 02/06/2020 12:00:00 AM EST eCW1 ([facility]) H Attender: Demetrice Gilliam MDAdmitter: Demetrice Gilliam MD E S1-SJ 01/10/2020 07:49:00 AM EST - 01/10/2020 10:57:00 AM EST [facility] Patient discharged. Outpatient Referrer: Rosa Casillas MD MOB-MOB.PAT 1 03/10/2019 02:31:48 PM EST - 01/09/2020 02:31:52 PM EST [facility] Outpatient [address] [facility] [address] 01/02/2020 12:00:00 AM EDT eCW1 ([facility]) Unknown [address] [facility] [address] 01/02/2020 12:00:00 AM EDT eCW1 ([facility]) [place] [address] [facility] [address] 12/26/2019 12:00:00 AM EDT eCW1 ([facility]) [place] [address] [facility] [address] 12/22/2019 12:00:00 AM EDT eCW1 ([facility]) [place] [address] [facility] [address] 12/22/2019 12:00:00 AM EDT eCW1 ([facility]) [place] [address] [facility] [address] 12/21/2019 12:00:00 AM EDT eCW1 ([facility]) [place] [address] [facility] [address] 12/21/2019 12:00:00 AM EDT eCW1 ([facility]) Outpatient Attender: Rosa Casillas MDAdmitter: Rosa Casillas MD [id number].CVAU 12/19/2019 01:33:42 PM EDT [facility] Outpatient [address] [facility] [address] 12/11/2019 12:00:00 AM EDT eCW1 ([facility]) [place] [address] [facility] [address] 12/08/2019 12:00:00 AM EDT eCW1 ([facility]) [place] [address] [facility] [address] 12/08/2019 12:00:00 AM EDT eCW1 ([facility]) [facility] Dermatology [address] [place] [address] 10/31/2019 12:00:00 AM EDT eCW1 ([facility]) [place] [address] [facility] [address] 09/21/2019 12:00:00 AM EDT eCW1 ([facility]) [place] [address] [facility] [address] 09/20/2019 12:00:00 AM EDT eCW1 ([facility]) [place] [address] [facility] [address] 09/19/2019 12:00:00 AM EDT eCW1 ([facility]) [facility] [address] [facility] [address] 08/28/2019 12:00:00 AM EDT eCW1 ([facility]) [place] [address] [facility] [address] 08/24/2019 12:00:00 AM EDT eCW1 ([facility]) [facility] [address] [facility] [address] 08/15/2019 12:00:00 AM EDT eCW1 ([facility]) Outpatient Referrer: Moy Saravia MD 08/14/2019 10:46:0 0 PM EDT [facility] Unknown [address] [facility] [address] 08/08/2019 12:00:00 AM EDT eCW1 ([facility]) [facility] [address] [facility] [address] 07/27/2019 12:00:00 AM EDT eCW1 ([facility]) [facility] [address] [facility] [address] 07/24/2019 12:00:00 AM EDT eCW1 ([facility]) Outpatient Referrer: Moy Saravia MD 07/18/2019 04:38:0 0 PM EDT [facility] Outpatient Referrer: Moy Saravia MD 07/18/2019 04:16:0 0 PM EDT [facility] Outpatient ALL 07/18/2019 08:05:02 AM [facility] [address] [facility] [address] 07/18/2019 12:00:00 AM EDT eCW1 ([facility]) [facility] [address] [facility] [address] 07/17/2019 12:00:00 AM EDT eCW1 ([facility]) [facility] [address] [facility] [address] 07/17/2019 12:00:00 AM EDT eCW1 ([facility]) [facility] [address] [facility] [address] 07/17/2019 12:00:00 AM EDT eCW1 ([facility]) Outpatient Referrer: Moy Saravia MD 07/13/2019 01:57:0 0 PM EDT [facility] Dermatology [address] [place] [address] 07/11/2019 12:00:00 AM EDT eCW1 ([facility]) Unlisted evaluation and management service Performer: Syd boyd 07/05/2019 01:10:00 PM EDT - 09/14/2019 06:34:00 PM EDT [facility] ([facility]) Outpatient Referrer: Moy Saravia MD 07/05/2019 05:50:0 0 AM EDT [facility] Outpatient ALL 06/30/2019 10:40:01 AM EDT [facility] Outpatient Attender: Christopher Cannon MD Physical Therapy 02:54:00 PM EDT [facility] ([facility] ) Inpatient Attender: Lopez Han MDAt tender: ZAYRA VALERO MDAdmitter: Lopez Han MDReferrer: PROVIDER SYSTEM [id number] 06/27/2019 12:00:00 AM EDT - 07/03/2019 12:00:00 AM EDT Illness, unspecified [facility] Illness, unspecified Patient discharged. [facility] [address] [facility] [address] 06/27/2019 12:00:00 AM EDT eCW1 ([facility]) [facility] [address] [facility] [address] 06/27/2019 12:00:00 AM EDT eCW1 ([facility]) [facility] Dermatology [address] [place] [address] 06/23/2019 12:00:00 AM EDT eCW1 ([facility]) [facility] [address] [facility] [address] 06/22/2019 12:00:00 AM EDT eCW1 ([facility]) [facility] [address] [place] [address], [place] [address] 06/19/2019 12:00:00 AM EDT eCW1 ([facility]) [facility] Dermatology [address] [place] [address] 06/15/2019 12:00:00 AM EDT eCW1 ([facility]) [facility] [address] [place] [address], [place] [address] 06/15/2019 12:00:00 AM EDT eCW1 ([facility]) [facility] [address] [place] [address], [place] [address] 06/14/2019 12:00:00 AM EDT eCW1 ([facility]) [facility] [address] [place] [address], [place] [address] 06/14/2019 12:00:00 AM EDT eCW1 ([facility]) [facility] Dermatology [address] [place] [address] 06/14/2019 12:00:00 AM EDT eCW1 ([facility]) Outpatient Referrer: Moy Saravia MD 06/13/2019 05:55:0 0 AM EDT [facility] [address] [place] [address], [place] [address] 06/13/2019 12:00:00 AM EDT eCW1 ([facility]) [facility] Dermatology [address] [place] [address] 06/06/2019 12:00:00 AM EDT eCW1 ([facility]) Outpatient Referrer: Moy Saravia MD 06/04/2019 10:19:0 0 AM EDT [facility] [address] [facility] [address] 06/02/2019 12:00:00 AM EDT eCW1 ([facility]) [facility] [address] [facility] [address] 06/02/2019 12:00:00 AM EDT eCW1 ([facility]) [facility] [address] [facility] [address] 05/30/2019 12:00:00 AM EDT eCW1 ([facility]) [facility] Dermatology [address] [place] [address] 05/26/2019 12:00:00 AM EDT eCW1 ([facility]) [facility] [address] [facility] [address] 05/26/2019 12:00:00 AM EDT eCW1 ([facility]) [facility] Dermatology [address] [place] [address] 05/26/2019 12:00:00 AM EDT eCW1 ([facility]) [facility] [address] [place] [address], [place] [address] 05/25/2019 12:00:00 AM EDT eCW1 ([facility]) [facility] [address] [facility] [address] 05/18/2019 12:00:00 AM EDT eCW1 ([facility]) [facility] [address] [place] [address], [place] [address] 05/12/2019 12:00:00 AM EST eCW1 ([facility]) [facility] [address] [place] [address], [place] [address] 05/11/2019 12:00:00 AM EST eCW1 ([facility]) [facility] [address] [facility] [address] 05/09/2019 12:00:00 AM EST eCW1 ([facility]) [facility] [place] [address] [facility] [address] 05/01/2019 12:00:00 AM EST eCW1 ([facility]) [facility] [place] [address] [facility] [address] 05/01/2019 12:00:00 AM EST eCW1 ([facility]) [facility] [place] [address] [facility] [address] 04/24/2019 12:00:00 AM EST eCW1 ([facility]) [facility] [place] [address] [facility] [address] 04/21/2019 12:00:00 AM EST eCW1 ([facility]) Outpatient Referrer: Moy Saravia MD 04/19/2019 02:13:0 0 PM EST [facility] [address] [facility] [address] 04/18/2019 12:00:00 AM EST eCW1 ([facility]) Outpatient Referrer: Moy Saravia MD 04/17/2019 08:30:0 0 PM EST [facility] Outpatient Referrer: Moy Saravia MD 04/16/2019 08:20:0 0 PM EST [facility] Outpatient Referrer: Moy Saravia MD 04/07/2019 09:06:0 0 AM EST [facility] Outpatient Attender: Christopher Cannon MD Physical Therapy 03:24:00 PM EST [facility] ([facility]) Outpatient Referrer: oMy Saravia MD 04/03/2019 12:45:0 0 PM EST [facility] Outpatient Attender: Christopher Cannon MD Physical Therapy 03:23:00 PM EST [facility] ([facility]) Immunizations Vaccine Date Status Description Data Source(s) Hep A, adult 03/31/2019 01:22:00 PM EST completed e CW1 ([facility]) Hep A, adult 03/31/2019 01:22:00 PM EST completed e CW1 ([facility]) Hep A, adult 03/31/2019 01:22:00 PM EST completed e CW1 ([facility]) Hep A, adult 03/31/2019 01:22:00 PM EST completed e CW1 ([facility]) Hep A, adult 03/31/2019 01:22:00 PM EST completed e CW1 ([facility]) Hep A, adult 03/31/2019 01:22:00 PM EST completed e CW1 ([facility]) Hep A, adult 03/31/2019 01:22:00 PM EST completed e CW1 ([facility]) Hep A, adult 03/31/2019 01:22:00 PM EST completed e CW1 ([facility]) Hep A, adult 03/31/2019 01:22:00 PM EST completed e CW1 ([facility]) Hep A, adult 03/31/2019 01:22:00 PM EST completed e CW1 ([facility]) Hep A, adult 03/31/2019 01:22:00 PM EST completed e CW1 ([facility]) Hep A, adult 03/31/2019 01:22:00 PM EST completed e CW1 ([facility]) Hep A, adult 03/31/2019 01:22:00 PM EST completed e CW1 ([facility]) Hep A, adult 03/31/2019 01:22:00 PM EST completed e CW1 ([facility]) Hep A, adult 03/31/2019 01:22:00 PM EST completed e CW1 ([facility]) Hep A, adult 03/31/2019 01:22:00 PM EST completed e CW1 ([facility]) Hep A, adult 03/31/2019 01:22:00 PM EST completed e CW1 ([facility]) Hep A, adult 03/31/2019 01:22:00 PM EST completed e CW1 ([facility]) Hep A, adult 03/31/2019 01:22:00 PM EST completed e CW1 ([facility]) Hep A, adult 03/31/2019 01:22:00 PM EST completed e CW1 ([facility]) Hep A, adult 03/31/2019 01:22:00 PM EST completed e CW1 ([facility]) Hep A, adult 03/31/2019 01:22:00 PM EST completed e CW1 ([facility]) Hep A, adult 03/31/2019 01:22:00 PM EST completed e CW1 ([facility]) Hep A, adult 03/31/2019 01:22:00 PM EST completed e CW1 ([facility]) Hep A, adult 03/31/2019 01:22:00 PM EST completed e CW1 ([facility]) Hep A, adult 03/31/2019 01:22:00 PM EST completed e CW1 ([facility]) Hep A, adult 03/31/2019 01:22:00 PM EST completed e CW1 ([facility]) Medications Medication Brand Name Start Date Product Form Dose Route Admi nistrative Instructions Pharmacy Instructions Status Indications Reaction Description Data Source(s) meloxicam 15 MG Oral Tablet Meloxicam 15 MG Oral Table t (Mobic) Meloxicam 15 MG Oral Tablet (Mobic) 03/18/2020 12:00:00 AM EST 15 mg Oral active Take 1 tablet by mouth daily [facility] Ketorolac Tromethamine 10 MG Oral Tablet Ketorolac Trometham ine 10 MG 03/12/2020 12:00:00 AM EST active Ketorola c Tromethamine 10 MG eCW1 ([facility]) Ketorolac Tromethamine 10 MG Oral Tablet Ketorolac Trometham ine 10 MG 03/12/2020 12:00:00 AM EST active Ketorola c Tromethamine 10 MG eCW1 ([facility]) Ketorolac Tromethamine 10 MG Oral Tablet Ketorolac Trometham ine 10 MG 03/12/2020 12:00:00 AM EST active Ketorola c Tromethamine 10 MG eCW1 ([facility]) Ketorolac Tromethamine 10 MG Oral Tablet Ketorolac Trometham ine 10 MG 03/12/2020 12:00:00 AM EST active Ketorola c Tromethamine 10 MG eCW1 ([facility]) cefdinir 300 MG Oral Capsule Cefdinir 300 MG Cefdinir 300 MG 02/20/2020 12:00:00 AM EST active Cefdinir 300 MG e CW1 ([facility]) Phenergan 25 MG UNK 02/06/2020 12:00:00 AM EST 1.0 {tablet_a s_needed} active Phenergan 25 MG eCW1 ([facility]) Phenergan 25 MG UNK 02/06/2020 12:00:00 AM EST 1.0 {tablet_a s_needed} active Phenergan 25 MG eCW1 ([facility]) Phenergan 25 MG UNK 02/06/2020 12:00:00 AM EST 1.0 {tablet_a s_needed} active Phenergan 25 MG eCW1 ([facility]) Dicyclomine Hydrochloride 20 MG Oral Tablet Dicyclomin e HCl 20 MG Dicyclomine HCl 20 MG 02/06/2020 12:00:00 AM EST 1.0 {tablet} ac tive Dicyclomine HCl 20 MG eCW1 ([facility]) Phenergan 25 MG UNK 02/06/2020 12:00:00 AM EST 1.0 {tablet_a s_needed} active Phenergan 25 MG eCW1 ([facility]) Phenergan 25 MG UNK 02/06/2020 12:00:00 AM EST 1.0 {tablet_a s_needed} active Phenergan 25 MG eCW1 ([facility]) Dicyclomine Hydrochloride 20 MG Oral Tablet Dicyclomin e HCl 20 MG Dicyclomine HCl 20 MG 02/06/2020 12:00:00 AM EST 1.0 {tablet} ac tive Dicyclomine HCl 20 MG eCW1 ([facility]) Phenergan 25 MG UNK 02/06/2020 12:00:00 AM EST 1.0 {tablet_a s_needed} active Phenergan 25 MG eCW1 ([facility]) Dicyclomine Hydrochloride 20 MG Oral Tablet Dicyclomin e HCl 20 MG Dicyclomine HCl 20 MG 02/06/2020 12:00:00 AM EST 1.0 {tablet} ac tive Dicyclomine HCl 20 MG eCW1 ([facility]) Phenergan 25 MG UNK 02/06/2020 12:00:00 AM EST 1.0 {tablet_a s_needed} active Phenergan 25 MG eCW1 ([facility]) Dicyclomine Hydrochloride 20 MG Oral Tablet Dicyclomin e HCl 20 MG Dicyclomine HCl 20 MG 02/06/2020 12:00:00 AM EST 1.0 {tablet} ac tive Dicyclomine HCl 20 MG eCW1 ([facility]) Phenergan 25 MG UNK 02/06/2020 12:00:00 AM EST 1.0 {tablet_a s_needed} active Phenergan 25 MG eCW1 ([facility]) Dicyclomine Hydrochloride 20 MG Oral Tablet Dicyclomin e HCl 20 MG Dicyclomine HCl 20 MG 02/06/2020 12:00:00 AM EST 1.0 {tablet} ac tive Dicyclomine HCl 20 MG eCW1 ([facility]) Dicyclomine Hydrochloride 20 MG Oral Tablet Dicyclomin e HCl 20 MG Dicyclomine HCl 20 MG 02/06/2020 12:00:00 AM EST 1.0 {tablet} ac tive Dicyclomine HCl 20 MG eCW1 ([facility]) Phenergan 25 MG UNK 02/06/2020 12:00:00 AM EST 1.0 {tablet_a s_needed} active Phenergan 25 MG eCW1 ([facility]) Phenergan 25 MG UNK 02/06/2020 12:00:00 AM EST 1.0 {tablet_a s_needed} active Phenergan 25 MG eCW1 ([facility]) Phenergan 25 MG UNK 02/06/2020 12:00:00 AM EST 1.0 {tablet_a s_needed} active Phenergan 25 MG eCW1 ([facility]) Dicyclomine Hydrochloride 20 MG Oral Tablet Dicyclomin e HCl 20 MG Dicyclomine HCl 20 MG 02/06/2020 12:00:00 AM EST 1.0 {tablet} ac tive Dicyclomine HCl 20 MG eCW1 ([facility]) Phenergan 25 MG UNK 02/06/2020 12:00:00 AM EST 1.0 {tablet_a s_needed} active Phenergan 25 MG eCW1 ([facility]) Phenergan 25 MG UNK 02/06/2020 12:00:00 AM EST 1.0 {tablet_a s_needed} active Phenergan 25 MG eCW1 ([facility]) perflutren lipid microsphere (DEFINWesabe) 8.476 mg in 10 mL NS IV 01/10/2020 08:42:45 AM EST Intravenous active 2-10 mL, Intravenous, Once as needed, to be used when clinically necessary, Starting Wed01/10/20 at 0842, For 1 dose
To be given with windows migration technician at bedside for exam1. Activate in VIALMIX agitator for 45 seconds2. Withdraw 1.3 ml of activated perflutren suspension and dilute in 8.7 ml of 0.9% NS (Total volume = 10 ml)3. Inject 2 ml slowly over 30 seconds. Repeat in 2 ml aliquots as needed. DO NOT EXCEED 10 ML TOTAL DOSE!
[facility] Medication administered onsite Potassium Chloride Thais ER 10 MEQ Potassium Chloride Thais ER 10 MEQ 12/25/2019 12:00:00 AM EDT 1.0 {tablet_with_food} active Potassium Chloride Thais ER 10 MEQ eCW1 ([facility]) Potassium Chloride Thais ER 10 MEQ Potassium Chloride Thais ER 10 MEQ 12/25/2019 12:00:00 AM EDT 1.0 {tablet_with_food} active Potassium Chloride Thais ER 10 MEQ eCW1 ([facility]) Potassium Chloride Thais ER 10 MEQ Potassium Chloride Thais ER 10 MEQ 12/25/2019 12:00:00 AM EDT 1.0 {tablet_with_food} active Potassium Chloride Thais ER 10 MEQ eCW1 ([facility]) Potassium Chloride Thais ER 10 MEQ Potassium Chloride Thais ER 10 MEQ 12/25/2019 12:00:00 AM EDT 1.0 {tablet_with_food} active Potassium Chloride Thais ER 10 MEQ eCW1 ([facility]) Potassium Chloride Thais ER 10 MEQ Potassium Chloride Thais ER 10 MEQ 12/25/2019 12:00:00 AM EDT 1.0 {tablet_with_food} active Potassium Chloride Thais ER 10 MEQ eCW1 ([facility]) Potassium Chloride Thais ER 10 MEQ Potassium Chloride Thais ER 10 MEQ 12/25/2019 12:00:00 AM EDT 1.0 {tablet_with_food} active Potassium Chloride Thais ER 10 MEQ eCW1 ([facility]) Potassium Chloride Thais ER 10 MEQ Potassium Chloride Thais ER 10 MEQ 12/25/2019 12:00:00 AM EDT 1.0 {tablet_with_food} active Potassium Chloride Thais ER 10 MEQ eCW1 ([facility]) Potassium Chloride Thais ER 10 MEQ Potassium Chloride Thais ER 10 MEQ 12/25/2019 12:00:00 AM EDT 1.0 {tablet_with_food} active Potassium Chloride Thais ER 10 MEQ eCW1 ([facility]) Potassium Chloride Thais ER 10 MEQ Potassium Chloride Thais ER 10 MEQ 12/25/2019 12:00:00 AM EDT 1.0 {tablet_with_food} active Potassium Chloride Thais ER 10 MEQ eCW1 ([facility]) Potassium Chloride Thais ER 10 MEQ Potassium Chloride Thais ER 10 MEQ 12/25/2019 12:00:00 AM EDT 1.0 {tablet_with_food} active Potassium Chloride Thais ER 10 MEQ eCW1 ([facility]) Potassium Chloride Thais ER 10 MEQ Potassium Chloride Thais ER 10 MEQ 12/25/2019 12:00:00 AM EDT 1.0 {tablet_with_food} active Potassium Chloride Thais ER 10 MEQ eCW1 ([facility]) Potassium Chloride Thais ER 10 MEQ Potassium Chloride Thais ER 10 MEQ 12/25/2019 12:00:00 AM EDT 1.0 {tablet_with_food} active Potassium Chloride Thais ER 10 MEQ eCW1 ([facility]) Potassium Chloride 20 MEQ Potassium Chloride 20 MEQ 12/21/2019 1 2:00:00 AM EDT 1.0 {packet_with_food} active P otassium Chloride 20 MEQ eCW1 ([facility]) Potassium Chloride 20 MEQ Potassium Chloride 20 MEQ 12/21/2019 1 2:00:00 AM EDT 1.0 {packet_with_food} active P otassium Chloride 20 MEQ eCW1 ([facility]) Triamcinolone Acetonide 0.001 MG/MG Oral Paste Triamci nolone Acetonide 0.1 % Triamcinolone Acetonide 0.1 % 12/21/2019 12:00:00 AM EDT active Triamcinolone Acetonide 0.1 % eCW1 ([facility]) Triamcinolone Acetonide 0.001 MG/MG Oral Paste Triamci nolone Acetonide 0.1 % Triamcinolone Acetonide 0.1 % 12/21/2019 12:00:00 AM EDT active Triamcinolone Acetonide 0.1 % eCW1 ([facility]) Triamcinolone Acetonide 0.001 MG/MG Oral Paste Triamci nolone Acetonide 0.1 % Triamcinolone Acetonide 0.1 % 12/21/2019 12:00:00 AM EDT active Triamcinolone Acetonide 0.1 % eCW1 ([facility]) Potassium Chloride 20 MEQ Potassium Chloride 20 MEQ 12/21/2019 1 2:00:00 AM EDT 1.0 {packet_with_food} active P otassium Chloride 20 MEQ eCW1 ([facility]) Potassium Chloride 20 MEQ Potassium Chloride 20 MEQ 12/21/2019 1 2:00:00 AM EDT 1.0 {packet_with_food} active P otassium Chloride 20 MEQ eCW1 ([facility]) Triamcinolone Acetonide 0.001 MG/MG Oral Paste Triamci nolone Acetonide 0.1 % Triamcinolone Acetonide 0.1 % 12/21/2019 12:00:00 AM EDT active Triamcinolone Acetonide 0.1 % eCW1 ([facility]) Triamcinolone Acetonide 0.001 MG/MG Oral Paste Triamci nolone Acetonide 0.1 % Triamcinolone Acetonide 0.1 % 12/21/2019 12:00:00 AM EDT active Triamcinolone Acetonide 0.1 % eCW1 ([facility]) Triamcinolone Acetonide 0.001 MG/MG Oral Paste Triamci nolone Acetonide 0.1 % Triamcinolone Acetonide 0.1 % 12/21/2019 12:00:00 AM EDT active Triamcinolone Acetonide 0.1 % eCW1 ([facility]) Potassium Chloride 20 MEQ Potassium Chloride 20 MEQ 12/21/2019 1 2:00:00 AM EDT 1.0 {packet_with_food} active P otassium Chloride 20 MEQ eCW1 ([facility]) Triamcinolone Acetonide 0.001 MG/MG Oral Paste Triamci nolone Acetonide 0.1 % Triamcinolone Acetonide 0.1 % 12/21/2019 12:00:00 AM EDT active Triamcinolone Acetonide 0.1 % eCW1 ([facility]) Triamcinolone Acetonide 0.001 MG/MG Oral Paste Triamci nolone Acetonide 0.1 % Triamcinolone Acetonide 0.1 % 12/21/2019 12:00:00 AM EDT active Triamcinolone Acetonide 0.1 % eCW1 ([facility]) Triamcinolone Acetonide 0.001 MG/MG Oral Paste Triamci nolone Acetonide 0.1 % Triamcinolone Acetonide 0.1 % 12/21/2019 12:00:00 AM EDT active Triamcinolone Acetonide 0.1 % eCW1 ([facility]) Triamcinolone Acetonide 0.001 MG/MG Oral Paste Triamci nolone Acetonide 0.1 % Triamcinolone Acetonide 0.1 % 12/21/2019 12:00:00 AM EDT active Triamcinolone Acetonide 0.1 % eCW1 ([facility]) Triamcinolone Acetonide 0.001 MG/MG Oral Paste Triamci nolone Acetonide 0.1 % Triamcinolone Acetonide 0.1 % 12/21/2019 12:00:00 AM EDT active Triamcinolone Acetonide 0.1 % eCW1 ([facility]) Triamcinolone Acetonide 0.001 MG/MG Oral Paste Triamci nolone Acetonide 0.1 % Triamcinolone Acetonide 0.1 % 12/21/2019 12:00:00 AM EDT active Triamcinolone Acetonide 0.1 % eCW1 ([facility]) Triamcinolone Acetonide 0.001 MG/MG Oral Paste Triamci nolone Acetonide 0.1 % Triamcinolone Acetonide 0.1 % 12/21/2019 12:00:00 AM EDT active Triamcinolone Acetonide 0.1 % eCW1 ([facility]) Triamcinolone Acetonide 0.001 MG/MG Oral Paste Triamci nolone Acetonide 0.1 % Triamcinolone Acetonide 0.1 % 12/21/2019 12:00:00 AM EDT active Triamcinolone Acetonide 0.1 % eCW1 ([facility]) Triamcinolone Acetonide 0.001 MG/MG Oral Paste Triamci nolone Acetonide 0.1 % Triamcinolone Acetonide 0.1 % 12/21/2019 12:00:00 AM EDT active Triamcinolone Acetonide 0.1 % eCW1 ([facility]) Triamcinolone Acetonide 0.001 MG/MG Oral Paste Triamci nolone Acetonide 0.1 % Triamcinolone Acetonide 0.1 % 12/21/2019 12:00:00 AM EDT active Triamcinolone Acetonide 0.1 % eCW1 ([facility]) Triamcinolone Acetonide 0.001 MG/MG Oral Paste Triamci nolone Acetonide 0.1 % Triamcinolone Acetonide 0.1 % 12/21/2019 12:00:00 AM EDT active Triamcinolone Acetonide 0.1 % eCW1 ([facility]) Triamcinolone Acetonide 0.001 MG/MG Oral Paste Triamci nolone Acetonide 0.1 % Triamcinolone Acetonide 0.1 % 12/21/2019 12:00:00 AM EDT active Triamcinolone Acetonide 0.1 % eCW1 ([facility]) Potassium Chloride 20 MEQ Potassium Chloride 20 MEQ 12/21/2019 1 2:00:00 AM EDT 1.0 {packet_with_food} active P otassium Chloride 20 MEQ eCW1 ([facility]) Triamcinolone Acetonide 0.001 MG/MG Oral Paste Triamci nolone Acetonide 0.1 % Triamcinolone Acetonide 0.1 % 12/21/2019 12:00:00 AM EDT active Triamcinolone Acetonide 0.1 % eCW1 ([facility]) Triamcinolone Acetonide 0.001 MG/MG Oral Paste Triamci nolone Acetonide 0.1 % Triamcinolone Acetonide 0.1 % 12/21/2019 12:00:00 AM EDT active Triamcinolone Acetonide 0.1 % eCW1 ([facility]) Triamcinolone Acetonide 0.001 MG/MG Oral Paste Triamci nolone Acetonide 0.1 % Triamcinolone Acetonide 0.1 % 12/21/2019 12:00:00 AM EDT active Triamcinolone Acetonide 0.1 % eCW1 ([facility]) Potassium Chloride 20 MEQ Potassium Chloride 20 MEQ 12/21/2019 1 2:00:00 AM EDT 1.0 {packet_with_food} active P otassium Chloride 20 MEQ eCW1 ([facility]) Triamcinolone Acetonide 0.001 MG/MG Oral Paste Triamci nolone Acetonide 0.1 % Triamcinolone Acetonide 0.1 % 12/21/2019 12:00:00 AM EDT active Triamcinolone Acetonide 0.1 % eCW1 ([facility]) Triamcinolone Acetonide 0.001 MG/MG Oral Paste Triamci nolone Acetonide 0.1 % Triamcinolone Acetonide 0.1 % 12/21/2019 12:00:00 AM EDT active Triamcinolone Acetonide 0.1 % eCW1 ([facility]) Hydroxychloroquine Sulfate 200 MG Oral Tablet [Plaquen il] Plaquenil 200 MG Plaquenil 200 MG 12/08/2019 12:00:00 AM EDT a ctive Plaquenil 200 MG eCW1 ([facility]) Hydroxychloroquine Sulfate 200 MG Oral Tablet [Plaquen il] Plaquenil 200 MG Plaquenil 200 MG 12/08/2019 12:00:00 AM EDT a ctive Plaquenil 200 MG eCW1 ([facility]) Hydroxychloroquine Sulfate 200 MG Oral Tablet [Plaquen il] Plaquenil 200 MG Plaquenil 200 MG 12/08/2019 12:00:00 AM EDT a ctive Plaquenil 200 MG eCW1 ([facility]) Hydroxychloroquine Sulfate 200 MG Oral Tablet [Plaquen il] Plaquenil 200 MG Plaquenil 200 MG 12/08/2019 12:00:00 AM EDT a ctive Plaquenil 200 MG eCW1 ([facility]) Hydroxychloroquine Sulfate 200 MG Oral Tablet [Plaquen il] Plaquenil 200 MG Plaquenil 200 MG 12/08/2019 12:00:00 AM EDT a ctive Plaquenil 200 MG eCW1 ([facility]) Hydroxychloroquine Sulfate 200 MG Oral Tablet [Plaquen il] Plaquenil 200 MG Plaquenil 200 MG 12/08/2019 12:00:00 AM EDT a ctive Plaquenil 200 MG eCW1 ([facility]) Hydroxychloroquine Sulfate 200 MG Oral Tablet [Plaquen il] Plaquenil 200 MG Plaquenil 200 MG 12/08/2019 12:00:00 AM EDT a ctive Plaquenil 200 MG eCW1 ([facility]) Hydroxychloroquine Sulfate 200 MG Oral Tablet [Plaquen il] Plaquenil 200 MG Plaquenil 200 MG 12/08/2019 12:00:00 AM EDT a ctive Plaquenil 200 MG eCW1 ([facility]) Hydroxychloroquine Sulfate 200 MG Oral Tablet [Plaquen il] Plaquenil 200 MG Plaquenil 200 MG 12/08/2019 12:00:00 AM EDT a ctive Plaquenil 200 MG eCW1 ([facility]) Hydroxychloroquine Sulfate 200 MG Oral Tablet [Plaquen il] Plaquenil 200 MG Plaquenil 200 MG 12/08/2019 12:00:00 AM EDT a ctive Plaquenil 200 MG eCW1 ([facility]) Hydroxychloroquine Sulfate 200 MG Oral Tablet [Plaquen il] Plaquenil 200 MG Plaquenil 200 MG 12/08/2019 12:00:00 AM EDT a ctive Plaquenil 200 MG eCW1 ([facility]) Hydroxychloroquine Sulfate 200 MG Oral Tablet [Plaquen il] Plaquenil 200 MG Plaquenil 200 MG 12/08/2019 12:00:00 AM EDT a ctive Plaquenil 200 MG eCW1 ([facility]) Hydroxychloroquine Sulfate 200 MG Oral Tablet [Plaquen il] Plaquenil 200 MG Plaquenil 200 MG 12/08/2019 12:00:00 AM EDT a ctive Plaquenil 200 MG eCW1 ([facility]) Hydroxychloroquine Sulfate 200 MG Oral Tablet [Plaquen il] Plaquenil 200 MG Plaquenil 200 MG 12/08/2019 12:00:00 AM EDT a ctive Plaquenil 200 MG eCW1 ([facility]) Hydroxychloroquine Sulfate 200 MG Oral Tablet [Plaquen il] Plaquenil 200 MG Plaquenil 200 MG 12/08/2019 12:00:00 AM EDT a ctive Plaquenil 200 MG eCW1 ([facility]) Hydroxychloroquine Sulfate 200 MG Oral Tablet [Plaquen il] Plaquenil 200 MG Plaquenil 200 MG 12/08/2019 12:00:00 AM EDT a ctive Plaquenil 200 MG eCW1 ([facility]) Hydroxychloroquine Sulfate 200 MG Oral Tablet [Plaquen il] Plaquenil 200 MG Plaquenil 200 MG 12/08/2019 12:00:00 AM EDT a ctive Plaquenil 200 MG eCW1 ([facility]) Hydroxychloroquine Sulfate 200 MG Oral Tablet [Plaquen il] Plaquenil 200 MG Plaquenil 200 MG 12/08/2019 12:00:00 AM EDT a ctive Plaquenil 200 MG eCW1 ([facility]) Hydroxychloroquine Sulfate 200 MG Oral Tablet [Plaquen il] Plaquenil 200 MG Plaquenil 200 MG 12/08/2019 12:00:00 AM EDT a ctive Plaquenil 200 MG eCW1 ([facility]) Hydroxychloroquine Sulfate 200 MG Oral Tablet [Plaquen il] Plaquenil 200 MG Plaquenil 200 MG 12/08/2019 12:00:00 AM EDT a ctive Plaquenil 200 MG eCW1 ([facility]) Hydroxychloroquine Sulfate 200 MG Oral Tablet [Plaquen il] Plaquenil 200 MG Plaquenil 200 MG 12/08/2019 12:00:00 AM EDT a ctive Plaquenil 200 MG eCW1 ([facility]) Hydroxychloroquine Sulfate 200 MG Oral Tablet [Plaquen il] Plaquenil 200 MG Plaquenil 200 MG 12/08/2019 12:00:00 AM EDT a ctive Plaquenil 200 MG eCW1 ([facility]) Hydroxychloroquine Sulfate 200 MG Oral Tablet [Plaquen il] Plaquenil 200 MG Plaquenil 200 MG 12/08/2019 12:00:00 AM EDT a ctive Plaquenil 200 MG eCW1 ([facility]) Hydroxychloroquine Sulfate 200 MG Oral Tablet [Plaquen il] Plaquenil 200 MG Plaquenil 200 MG 12/08/2019 12:00:00 AM EDT a ctive Plaquenil 200 MG eCW1 ([facility]) Hydroxychloroquine Sulfate 200 MG Oral Tablet [Plaquen il] Plaquenil 200 MG Plaquenil 200 MG 12/08/2019 12:00:00 AM EDT a ctive Plaquenil 200 MG eCW1 ([facility]) 25 mg 11/07/2019 12:00:00 AM EDT tablet 60 TAKE ONE TABLET BY MOUTH TWICE A DAY NEEDED TAKE ONE TABLET BY MOUTH TWICE A DAY NEEDED SOLD: 11/07/2019 [facility] 100 mg 11/07/2019 12:00:00 AM EDT capsule 60 TAKE ONE CAPSULE BY MOUTH TWICE A DAY FOR INFECTION TAKE ONE CAPSULE BY MOUTH TWICE A DAY FOR INFECTION SO LD: 11/07/2019 [facility] 4 mg 10/23/2019 12:00:00 AM EDT tablet 30 TAKE ONE TABLET BY MOUTH EVERY 6 HOURS TAKE ONE TABLET BY MOUTH EVERY 6 HOURS SOLD: 11/07/2019 [facility] 4 mg 10/23/2019 12:00:00 AM EDT tablet 30 TAKE ONE TABLET BY MOUTH EVERY 6 HOURS TAKE ONE TABLET BY MOUTH EVERY 6 HOURS SOLD: 10/24/2019 [facility] 4 mg 10/23/2019 12:00:00 AM EDT tablet 30 TAKE ONE TABLET BY MOUTH EVERY 6 HOURS TAKE ONE TABLET BY MOUTH EVERY 6 HOURS SOLD: 11/19/2019 [facility] meloxicam 15 MG Oral Tablet Meloxicam 15 MG Meloxicam 15 MG 09/20/2019 12:00:00 AM EDT 1.0 {tablet} active Meloxicam 1 5 MG eCW1 ([facility]) meloxicam 15 MG Oral Tablet Meloxicam 15 MG Meloxicam 15 MG 09/20/2019 12:00:00 AM EDT 1.0 {tablet} active Meloxicam 1 5 MG eCW1 ([facility]) meloxicam 15 MG Oral Tablet Meloxicam 15 MG Meloxicam 15 MG 09/20/2019 12:00:00 AM EDT 1.0 {tablet} active Meloxicam 1 5 MG eCW1 ([facility]) meloxicam 15 MG Oral Tablet Meloxicam 15 MG Meloxicam 15 MG 09/20/2019 12:00:00 AM EDT 1.0 {tablet} active Meloxicam 1 5 MG eCW1 ([facility]) meloxicam 15 MG Oral Tablet Meloxicam 15 MG Meloxicam 15 MG 09/20/2019 12:00:00 AM EDT 1.0 {tablet} active Meloxicam 1 5 MG eCW1 ([facility]) meloxicam 15 MG Oral Tablet Meloxicam 15 MG Meloxicam 15 MG 09/20/2019 12:00:00 AM EDT 1.0 {tablet} active Meloxicam 1 5 MG eCW1 ([facility]) meloxicam 15 MG Oral Tablet Meloxicam 15 MG Meloxicam 15 MG 09/20/2019 12:00:00 AM EDT 1.0 {tablet} active Meloxicam 1 5 MG eCW1 ([facility]) meloxicam 15 MG Oral Tablet Meloxicam 15 MG Meloxicam 15 MG 09/20/2019 12:00:00 AM EDT 1.0 {tablet} active Meloxicam 1 5 MG eCW1 ([facility]) meloxicam 15 MG Oral Tablet Meloxicam 15 MG Meloxicam 15 MG 09/20/2019 12:00:00 AM EDT 1.0 {tablet} active Meloxicam 1 5 MG eCW1 ([facility]) meloxicam 15 MG Oral Tablet Meloxicam 15 MG Meloxicam 15 MG 09/20/2019 12:00:00 AM EDT 1.0 {tablet} active Meloxicam 1 5 MG eCW1 ([facility]) meloxicam 15 MG Oral Tablet Meloxicam 15 MG Meloxicam 15 MG 09/20/2019 12:00:00 AM EDT 1.0 {tablet} active Meloxicam 1 5 MG eCW1 ([facility]) meloxicam 15 MG Oral Tablet Meloxicam 15 MG Meloxicam 15 MG 09/20/2019 12:00:00 AM EDT 1.0 {tablet} active Meloxicam 1 5 MG eCW1 ([facility]) meloxicam 15 MG Oral Tablet Meloxicam 15 MG Meloxicam 15 MG 09/20/2019 12:00:00 AM EDT 1.0 {tablet} active Meloxicam 1 5 MG eCW1 ([facility]) meloxicam 15 MG Oral Tablet Meloxicam 15 MG Meloxicam 15 MG 09/20/2019 12:00:00 AM EDT 1.0 {tablet} active Meloxicam 1 5 MG eCW1 ([facility]) meloxicam 15 MG Oral Tablet Meloxicam 15 MG Meloxicam 15 MG 09/20/2019 12:00:00 AM EDT 1.0 {tablet} active Meloxicam 1 5 MG eCW1 ([facility]) meloxicam 15 MG Oral Tablet Meloxicam 15 MG Meloxicam 15 MG 09/20/2019 12:00:00 AM EDT 1.0 {tablet} active Meloxicam 1 5 MG eCW1 ([facility]) meloxicam 15 MG Oral Tablet Meloxicam 15 MG Meloxicam 15 MG 09/20/2019 12:00:00 AM EDT 1.0 {tablet} active Meloxicam 1 5 MG eCW1 ([facility]) meloxicam 15 MG Oral Tablet Meloxicam 15 MG Meloxicam 15 MG 09/20/2019 12:00:00 AM EDT 1.0 {tablet} active Meloxicam 1 5 MG eCW1 ([facility]) meloxicam 15 MG Oral Tablet Meloxicam 15 MG Meloxicam 15 MG 09/20/2019 12:00:00 AM EDT 1.0 {tablet} active Meloxicam 1 5 MG eCW1 ([facility]) meloxicam 15 MG Oral Tablet Meloxicam 15 MG Meloxicam 15 MG 09/20/2019 12:00:00 AM EDT 1.0 {tablet} active Meloxicam 1 5 MG eCW1 ([facility]) Ondansetron 4 MG Oral Tablet [Zofran] Zofran 4 MG Zofran 4 M G 09/19/2019 12:00:00 AM EDT 1.0 {tablet} active Zo tramaine 4 MG eCW1 ([facility]) dalbavancin 20 MG/ML Injectable Solution [Dalvance] Da lvance 500 MG Dalvance 500 MG 09/19/2019 12:00:00 AM EDT active Dalvance 500 MG eCW1 ([facility]) dalbavancin 20 MG/ML Injectable Solution [Dalvance] Da lvance 500 MG Dalvance 500 MG 09/19/2019 12:00:00 AM EDT active Dalvance 500 MG eCW1 ([facility]) 4 mg 09/19/2019 12:00:00 AM EDT tablet 30 TAKE ONE TABLET BY MOUTH DAILY TAKE ONE TABLET BY MOUTH DAILY SOLD: 09/19/2019 [facility] dalbavancin 20 MG/ML Injectable Solution [Dalvance] Da lvance 500 MG Dalvance 500 MG 09/19/2019 12:00:00 AM EDT suspended Dalvance 500 MG eCW1 ([facility]) Ondansetron 4 MG Oral Tablet [Zofran] Zofran 4 MG Zofran 4 M G 09/19/2019 12:00:00 AM EDT 1.0 {tablet} active Zo tramaine 4 MG eCW1 ([facility]) Ondansetron 4 MG Oral Tablet [Zofran] Zofran 4 MG Zofran 4 M G 09/19/2019 12:00:00 AM EDT 1.0 {tablet} active Zo tramaine 4 MG eCW1 ([facility]) Docusate Sodium 50 MG / sennosides, PRISON 8.6 MG Oral Tablet [SENOKOT-S] Senokot S 8.6-50 MG Senokot S 8.6-50 MG 08/31/2019 12:00:00 AM EDT 1 .0 {tablet_in_the_evening_as_needed} active Senokot S 8.6-50 MG eCW1 ([facility]) Docusate Sodium 50 MG / sennosides, PRISON 8.6 MG Oral Tablet [SENOKOT-S] Senokot S 8.6-50 MG Senokot S 8.6-50 MG 08/31/2019 12:00:00 AM EDT 1 .0 {tablet_in_the_evening_as_needed} suspended Senokot S 8.6-50 MG eCW1 ([facility]) 300 mg 08/31/2019 12:00:00 AM EDT capsule 90 TAKE ONE CAPSULE BY MOUTH EVERY 8 HOURS WITH FOOD UNTIL GONE TAKE ONE CAPSULE BY MOUTH EVERY 8 HOURS WITH FOOD UNTIL GONE SOLD: 08/31/2019 [facility] 8.6-50 mg 08/31/2019 12:00:00 AM EDT tablet 30 TAKE ONE TABLET BY MOUTH EVERY EVENING NEEDED TAKE ONE TABLET BY MOUTH EVERY EVENING NEEDED SOLD: 08/31/2019 [facility] Clindamycin 300 MG Oral Capsule Clindamycin HCl 300 MG Clind amycin HCl 300 MG 08/31/2019 12:00:00 AM EDT active Clindamycin HCl 300 MG eCW1 ([facility]) Clindamycin 300 MG Oral Capsule Clindamycin HCl 300 MG Clind amycin HCl 300 MG 08/31/2019 12:00:00 AM EDT suspended Clindamycin HCl 300 MG eCW1 ([facility]) Clindamycin 300 MG Oral Capsule Clindamycin HCl 300 MG Clind amycin HCl 300 MG 08/31/2019 12:00:00 AM EDT suspended Clindamycin HCl 300 MG eCW1 ([facility]) Docusate Sodium 50 MG / sennosides, PRISON 8.6 MG Oral Tablet [SENOKOT-S] Senokot S 8.6-50 MG Senokot S 8.6-50 MG 08/31/2019 12:00:00 AM EDT 1 .0 {tablet_in_the_evening_as_needed} suspended Senokot S 8.6-50 MG eCW1 ([facility]) 300 mg 08/31/2019 12:00:00 AM EDT capsule 90 TAKE ONE CAPSULE BY MOUTH EVERY 8 HOURS WITH FOOD UNTIL GONE TAKE ONE CAPSULE BY MOUTH EVERY 8 HOURS WITH FOOD UNTIL GONE SOLD: 09/28/2019 [facility] Buprenorphine 12 MG / Naloxone 3 MG Oral Strip [Suboxone] [facility] 08/30/2019 04:00:00 AM EDT 1.0 Film Sublingual active NETSMART ([facility]) 300 mg 08/29/2019 12:00:00 AM EDT capsule 60 TAKE ONE CAPSULE BY MOUTH TWO TIMES A DAY TAKE ONE CAPSULE BY MOUTH TWO TIMES A DAY SOLD: 08/29/2019 [facility] quetiapine 100 MG Oral Tablet QUETIAPINE FUMARATE 08/25/2019 12: 00:00 AM EDT tablet 30 TAKE ONE TABLET BY MOUTH AT BEDT TERRENCE TAKE ONE TABLET BY MOUTH AT BEDTIME SOLD: 11/19/2019 [facility] quetiapine 100 MG Oral Tablet QUETIAPINE FUMARATE 08/25/2019 12: 00:00 AM EDT tablet 30 TAKE ONE TABLET BY MOUTH AT BEDT TERRENCE TAKE ONE TABLET BY MOUTH AT BEDTIME SOLD: 10/22/2019 [facility] quetiapine 100 MG Oral Tablet QUETIAPINE FUMARATE 08/25/2019 12: 00:00 AM EDT tablet 30 TAKE ONE TABLET BY MOUTH AT BEDT TERRENCE TAKE ONE TABLET BY MOUTH AT BEDTIME SOLD: 08/25/2019 [facility] quetiapine 100 MG Oral Tablet QUETIAPINE FUMARATE 08/25/2019 12: 00:00 AM EDT tablet 30 TAKE ONE TABLET BY MOUTH AT BEDT TERRENCE TAKE ONE TABLET BY MOUTH AT BEDTIME SOLD: 09/24/2019 [facility] Buprenorphine 12 MG / Naloxone 3 MG Oral Strip [Suboxone] [facility] 08/23/2019 04:00:00 AM EDT 1.0 Film Sublingual active NETSMART ([facility]) 300 mg 08/23/2019 12:00:00 AM EDT capsule 90 TAKE ONE CAPSULE BY MOUTH THREE TIMES A DAY TAKE ONE CAPSULE BY MOUTH THREE TIMES A DAY SOLD: 08/26/2019 [facility] 300 mg 08/23/2019 12:00:00 AM EDT capsule 90 TAKE ONE CAPSULE BY MOUTH THREE TIMES A DAY TAKE ONE CAPSULE BY MOUTH THREE TIMES A DAY SOLD: 09/19/2019 [facility] 300 mg 08/23/2019 12:00:00 AM EDT capsule 90 TAKE ONE CAPSULE BY MOUTH THREE TIMES A DAY TAKE ONE CAPSULE BY MOUTH THREE TIMES A DAY SOLD: 11/10/2019 [facility] 300 mg 08/23/2019 12:00:00 AM EDT capsule 90 TAKE ONE CAPSULE BY MOUTH THREE TIMES A DAY TAKE ONE CAPSULE BY MOUTH THREE TIMES A DAY SOLD: 2019 [facility] 150 mg 08/22/2019 12:00:00 AM EDT tablet 4 TAKE 1 TABLET BY MOUTH WEEKLY TAKE 1 TABLET BY MOUTH WEEKLY SOLD: 11/19/2019 [facility] Fluconazole 150 MG Oral Tablet [Diflucan] Diflucan 150 MG Di flucan 150 MG 08/22/2019 12:00:00 AM EDT 1.0 {tablet} active Diflucan 150 MG eCW1 ([facility]) 150 mg 08/22/2019 12:00:00 AM EDT tablet 4 TAKE 1 TABLET BY MOUTH WEEKLY TAKE 1 TABLET BY MOUTH WEEKLY SOLD: 08/22/2019 [facility] 150 mg 08/22/2019 12:00:00 AM EDT tablet 4 TAKE 1 TABLET BY MOUTH WEEKLY TAKE 1 TABLET BY MOUTH WEEKLY SOLD: 2019 [facility] 150 mg 08/22/2019 12:00:00 AM EDT tablet 4 TAKE 1 TABLET BY MOUTH WEEKLY TAKE 1 TABLET BY MOUTH WEEKLY SOLD: 09/19/2019 [facility] Buprenorphine 12 MG / Naloxone 3 MG Oral Strip [Suboxone] [facility] 08/16/2019 04:00:00 AM EDT 1.0 Film Sublingual active NETSMART ([facility]) Buprenorphine 12 MG / Naloxone 3 MG Oral Strip [Suboxone] [facility] 08/09/2019 04:00:00 AM EDT 1.0 Film Sublingual active NETSMART ([facility]) Buprenorphine 4 MG / Naloxone 1 MG Oral Strip [Suboxone] Sub oxone 07/26/2019 04:00:00 AM EDT 1.0 Film Sublingual active NETSMART ([facility]) Buprenorphine 8 MG / Naloxone 2 MG Oral Strip Buprenorphine HCl-Naloxone HCl 8-2 MG Sublingual Film (Suboxone) Buprenorphine HCl-Naloxone HCl 8-2 MG Singh blingual Film (Suboxone) 07/24/2019 12:00:00 AM EDT 1 {film} Sublingual active Place 1 Film under the tongue every morning 8-2mg qam, and 4-1mg qpm, Max Daily Dose: 1 Film [facility] Rifampin 300 MG Oral Capsule Rifampin 300 MG 07/18/2019 12:00:00 AM EDT active 1 cap eCW1 ([facility]) Estradiol 0.5 MG Oral Tablet Estradiol 0.5 MG 07/18/2019 12:00:00 A M EDT 1.0 {tablet} active Estradiol 0.5 MG eCW1 ( [facility]) gabapentin 300 MG Oral Capsule Gabapentin 300 MG Gabapentin 300 MG 07/18/2019 12:00:00 AM EDT active 1 capsul e eCW1 ([facility]) gabapentin 300 MG Oral Capsule Gabapentin 300 MG Gabapentin 300 MG 07/18/2019 12:00:00 AM EDT 1.0 {capsule} active G abapentin 300 MG eCW1 ([facility]) Estradiol 0.5 MG Oral Tablet Estradiol 0.5 MG 07/18/2019 12:00:00 AM E DT active 1 tablet eCW1 ([facility]) Rifampin 300 MG Oral Capsule Rifampin 300 MG 07/18/2019 12:00:00 AM EDT active Rifampin 300 MG eCW1 ([facility]) Buprenorphine 4 MG / Naloxone 1 MG Oral Strip [Suboxone] Sub oxone 07/12/2019 04:00:00 AM EDT 1.0 Film Sublingual active NETSMART ([facility]) Buprenorphine 4 MG / Naloxone 1 MG Oral Strip [Suboxone] Sub oxone 07/10/2019 04:00:00 AM EDT 1.0 Film Sublingual active NETSMART ([facility]) fentaNYL (SUBLIMAZE) (PF) injection 25 mcg 8802-4432-96 07/03/2019 06:30:00 AM EDT 25 ug Intravenous completed 25 mcg, Intravenous, Once, 07/03/19 at 0630, For 1 dose [facility] Medication administered onsite sodium chloride 0.9 % SOLN 50 mL with DAPTOmycin 350 MG SOLR 517 mg 07/03/2019 12:00:00 AM EDT 517 mg Intravenous active Inject 517 mg into the vein every 24 (twenty-four) hours [facility] Diclofenac Sodium 0.01 MG/MG Topical Gel Diclofenac Sodium 1 % Transdermal Gel (VOLTAREN) Diclofenac Sodium 1 % Transdermal Gel (VOLTAREN) 07/02 12:00:00 AM EDT 2 g Topical active Apply 2 g topica lly Four times daily [facility] 1 ML Ketorolac Tromethamine 30 MG/ML Car tridge Ketorolac Tromethamine 30 MG/ML Injection Solution (TORADOL) Ketorolac Tromethamine 30 MG/ML Injectio n Solution (TORADOL) 07/03/2019 12:00:00 AM EDT 15 mg Intravenous act delmis Inject 0.5 mLs into the vein every 6 (six) hours for 3 days [facility] Oxycodone Hydrochloride 5 MG Oral Tablet oxyCODONE HCl 5 MG Oral Tablet (ROXICODONE) oxyCODONE HCl 5 MG Oral Tablet (ROXICODONE) 07/03/2019 12:00:00 AM EDT 5 mg Oral active Take 1 t ablet by mouth every 4 (four) hours as needed for Pain (severe pain) for up to 10 days, Max Daily Dose: 30 mg [facility] sennosides, PRISON 8.6 MG Oral Tablet Senna 8.6 MG Oral T ablet Senna 8.6 MG Oral Tablet 07/03/2019 12:00:00 AM EDT 2 {tbl} Oral active Take 2 tablets by mouth nightly for 10 days [facility] Sodium Chloride (PF) 0.9 % Injection Solution [id number] 07/03/2019 12:00:00 AM EDT 10 mL Intravenous active Inject 10 mL s into the vein as needed [facility] heparin sodium, porcine 10 UNT/ML Inject able Solution Heparin Lock Flush 10 UNIT/ML Intravenous Solution Heparin Lock Flush 10 UNIT/ML Intravenous Solution 07/03/2019 12:00:00 AM EDT 20 U Intracatheter active 2 mLs by Intracatheter route as needed (for PICC line) [facility] potassium chloride (K-DUR,KLOR-CON) dissolvable tablet 40 mE q [id number] 07/02/2019 09:00:00 AM EDT 40 meq Oral completed 40 mEq, Oral, 2 Times Daily, First dose on 07/02/19 at 0900, For 1 day
May be dissolved in water for patients with a G-Tube or unable to swallow. If concern for clogging G-Tube, may contact Pharmacy to switch formulation to a powder packet.
[facility] Medication administered onsite pantoprazole 40 MG Delayed Release Oral Tablet pantoprazole (PROTONIX) EC tablet 40 mg pantoprazole (PROTONIX) EC tablet 40 mg 07/02/2019 09:00:00 AM E DT 40 mg Oral active 40 mg, Ora l, Daily Standard, First dose (after last reorder) on 07/02/19 at 0900, For 3 days [facility] Medication administered onsite Cyclobenzaprine hydrochloride 10 MG Oral Tablet cyclobenzaprine (FLEXERIL) tablet 5 mg cyclobenzaprine (FLEXERIL) tablet 5 mg 07/02/2019 09:00:00 AM ED T 5 mg Oral active 5 mg, Oral , Daily Standard, First dose (after last reorder) on 07/02/19 at 0900, For 3 days [facility] Medication administered onsite fentaNYL (SUBLIMAZE) (PF) injection 25 mcg 2601-2226-03 07/02/2019 08:42:21 AM EDT 25 ug Intravenous completed 25 mcg, Intravenous, Every 3 hours PRN, Severe Pain (Pain Scale Score 7-10), Starting [place] 07/02/19 at 0842, For 10 doses [facility] Medication administered onsite 4 ML Labetalol hydrochloride 5 MG/ML [facility] labetalol (NORMODYNE,TRANDATE) injection 10 mg labetalol (NORMODYNE,TRANDATE) injection 10 mg 020 07:30:52 AM EDT 10 mg Intravenous active 10 mg, Intravenous, Every 6 hours PRN, High Blood Pressure, If SBP>180, Starting 07/02/19 at 0730, For 2 days [facility] Medication administered onsite potassium chloride (K-DUR,KLOR-CON) dissolvable tablet 40 mE q 47295-919-15 07/02/2019 07:15:00 AM EDT 40 meq Oral completed 40 mEq, Oral, Once, 07/02/19 at 0715, For 1 dose
May be dissolved in water for patients with a G-Tube or unable to swallow. If concern for clogging G-Tube, may contact Pharmacy to switch formulation to a powder packet.
[facility] Medication administered onsite sennosides, PRISON 8.6 MG Oral Tablet senna 8.6 MG 2 tablet sen na 8.6 MG 2 tablet 07/02/2019 12:45:00 AM EDT 2 {tbl} Oral active 2 tablet, Oral, Nightly, First dose on 07/02/19 at 0045, For 30 days [facility] Medication administered onsite gabapentin 300 MG Oral Capsule gabapentin (NEURONTIN) capsule 300 mg gabapentin (NEURONTIN) capsule 300 mg 07/01/2019 09:00:00 PM EDT 300 mg Oral active 300 mg, Oral, 2 Times Daily, First dose (after last reorder) on 07/01/19 at 2100, For 3 days [facility] Medication administered onsite sodium chloride 0.9 % bolus 500 mL [id number] 07/01/2019 02:30:00 PM EDT 500 mL Intravenous completed 500 mL, Intravenous, Once, 07/01/19 at 1430, For 1 dose [facility] Medication administered onsite 1 ML Ketorolac Tromethamine 30 MG/ML [place] ketorolac (TORADOL) 30 MG/ML injection 15 mg ketorolac (TORADOL) 30 MG/ML injection 15 mg 0 07:15:00 AM EDT 15 mg Intravenous active 15 m g, Intravenous, Every 6 hours, First dose on 07/01/19 at 0715, For 3 days [facility] Medication administered onsite Acetaminophen 325 MG Oral Tablet acetaminophen (TYLENO L) tablet 975 mg acetaminophen (TYLENOL) tablet 975 mg 07/01/2019 07:15:00 AM EDT 97 5 mg Oral aborted 975 mg, Oral, E very 8 hours, First dose on 07/01/19 at 0715, For 5 days
Maximum daily dose of acetaminophen is 3,000 mg from all sources in 24 hours.
[facility] Medication administered onsite Oxycodone Hydrochloride 5 MG Oral Tablet oxyCODONE (ROXICODONE) immediate release tablet 10 mg oxyCODONE (ROXICODONE) immediate release tablet 10 mg 06/30/2019 09:16:08 PM EDT 10 mg Oral completed 10 mg, Oral, Every 4 hours PRN, Moderate Pain (Pain Scale Score 4-6), Starting Wed06/30/19 at 2116, For 2 days 22 hours
Oxycodone immediate release is limited to 10 mg per dose. Higher doses ( only) require Pain Service consultation and approval.
[facility] Medication administered onsite Acetaminophen 10 MG/ML Injectable Soluti on acetaminophen ([facility]) infusion 1,000 mg acetaminophen ([facility]) infusion 1,000 mg 06/30/2019 06:45:00 PM EDT 1000 mg Intravenous completed 1,000 mg , Intravenous, Administer over 15 Minutes, Once, Wed06/30/19 at 1845, For 1 dose
Maximum dose 3 gm daily from all sources
[facility] Medication administered onsite fentaNYL (SUBLIMAZE) (PF) injection 25 mcg [id number] 06/30/2019 03:48:38 PM EDT 25 ug Intravenous aborted 25 m cg, Intravenous, Every 2 hours PRN, Breakthrough Pain, Starting Wed06/30/19 at 1548, For 3 days [facility] Medication administered onsite 2 ML Midazolam 1 MG/ML Injection midazolam (PF) (VERSE D) injection 1 mg midazolam (PF) (VERSED) injection 1 mg 06/30/2019 03:00:00 PM EDT 1 mg Intravenous completed 1 mg, Intrave nous, Every 5 min, First dose on Wed06/30/19 at 1500, For 2 doses, Recovery [facility] Medication administered onsite fentaNYL (SUBLIMAZE) (PF) injection 25 mcg [id number] 06/30/2019 02:27:15 PM EDT 25 ug Intravenous aborted 25 m cg, Intravenous, Every 5 min PRN, Severe Pain (Pain Scale Score 7-10), Starting Wed06/30/19 at 1427, For 10 doses, Recovery [facility] Medication administered onsite HYDROmorphone (DILAUDID) injection 0.5 mg [id number] 06/30/2019 02:10:12 PM EDT 0.5 mg Intravenous completed 0. 5 mg, Intravenous, Every 5 min PRN, Severe Pain (Pain Scale Score > 6), Starting 4/24/20 at 1410, For 4 doses, Recovery [facility] Medication administered onsite Acetaminophen 10 MG/ML Injectable Soluti on acetaminophen (OFIRMEV) infusion 1,000 mg acetaminophen (OFIRMEV) infusion 1,000 mg 06/30/2019 05:15:00 AM EDT 1000 mg Intravenous completed 1,000 mg , Intravenous, Administer over 15 Minutes, Once, 06/30/19 at 0515, For 1 dose
Maximum dose 3 gm daily from all sources
[facility] Medication administered onsite fentaNYL (SUBLIMAZE) (PF) injection 25 mcg [id number] 06/29/2019 05:00:00 PM EDT 25 ug Intravenous completed 25 mcg, Intravenous, Once, Gretel 06/29/19 at 1700, For 1 dose [facility] Medication administered onsite Acetaminophen 10 MG/ML Injectable Soluti on acetaminophen (OFIRMEV) infusion 1,000 mg acetaminophen (OFIRMEV) infusion 1,000 mg 06/29/2019 03:24:26 PM EDT 1000 mg Intravenous completed 1,000 mg , Intravenous, Administer over 15 Minutes, Every 8 hours PRN, Fever, Mild Pain (Pain Scale Score 1-3), Starting Gretel 06/29/19 at 1524, For 12 hours
Maximum dose 3 gm daily from all sources
[facility] Medication administered onsite fentaNYL (SUBLIMAZE) (PF) injection [id number] 06/29/2019 01:00:58 PM EDT completed Code/Trauma Medicati on, Starting Gretel 06/29/19 at 1300 [facility] Medication administered onsite 2 ML Midazolam 1 MG/ML Injection midazolam (PF) (VERSE D) injection midazolam (PF) (VERSED) injection 06/29/2019 01:00:49 PM EDT completed Code/Trauma Medication, Starting Gretel 06/29/19 at 1300 [facility] Medication administered onsite Acetaminophen 10 MG/ML Injectable Soluti on acetaminophen (OFIRMEV) infusion 1,000 mg acetaminophen (OFIRMEV) infusion 1,000 mg 06/29/2019 09:00:00 AM EDT 1000 mg Intravenous completed 1,000 mg , Intravenous, Administer over 15 Minutes, Once, Gretel 06/29/19 at 0900, For 1 dose
Maximum dose 3 gm daily from all sources
[facility] Medication administered onsite potassium chloride (K-DUR,KLOR-CON) dissolvable tablet 40 mE q [id number] 06/29/2019 09:00:00 AM EDT 40 meq Oral completed 40 mEq, Oral, Three Times Daily Standard, First dose (after last modification) on Gretel 06/29/19 at 0900, For 3 doses
May be dissolved in water for patients with a G-Tube or unable to swallow. If concern for clogging G-Tube, may contact Pharmacy to switch formulation to a powder packet.
[facility] Medication administered onsite pantoprazole 40 MG Delayed Release Oral Tablet pantoprazole (PROTONIX) EC tablet 40 mg pantoprazole (PROTONIX) EC tablet 40 mg 06/29/2019 09:00:00 AM E DT 40 mg Oral completed 40 mg, Ora l, Daily Standard, First dose on Gretel 06/29/19 at 0900, For 3 days [facility] Medication administered onsite 24 HR venlafaxine 150 MG Extended Releas e Oral Capsule venlafaxine (EFFEXOR-XR) 24 hr capsule 150 mg venlafaxine (EFFEXOR-XR) 24 hr capsule 150 mg 06/29/19 09:00:00 AM EDT 150 mg Oral active 150 mg, Oral, Daily Standard, First dose on Gretel 06/29/19 at 0900, For 30 days
Do not crush or chew
[facility] Medication administered onsite Ergocalciferol 69281 UNT Oral Capsule vi tamin D (ERGOCALCIFEROL) capsule 50,000 Units vitamin D (ERGOCALCIFEROL) capsule 50,000 Units 2019 09:00:00 AM EDT 14339 U Oral active 50,000 U nits, Oral, Every 7 days, First dose on Gretel 06/29/19 at 0900, For 30 days [facility] Medication administered onsite fentaNYL (SUBLIMAZE) (PF) injection 25 mcg [id number] 06/29/2019 08:20:18 AM EDT 25 ug Intravenous aborted 25 m cg, Intravenous, Every 3 hours PRN, Severe Pain (Pain Scale Score 7-10), Starting [facility] 06/29/19 at 0820, For 24 hours [facility] Medication administered onsite gabapentin 300 MG Oral Capsule gabapentin (NEURONTIN) capsule 300 mg gabapentin (NEURONTIN) capsule 300 mg 06/28/2019 09:00:00 PM EDT 300 mg Oral active 300 mg, Oral, 2 Times Daily, First dose (after last modification) on Wed06/28/19 at 2100, For 3 days [facility] Medication administered onsite fentaNYL (SUBLIMAZE) (PF) injection 25 mcg [id number] 06/28/2019 07:13:03 PM EDT 25 ug Intravenous aborted 25 m cg, Intravenous, Every 3 hours PRN, Severe Pain (Pain Scale Score 7-10), Starting Wed06/28/19 at 1913, For 1 day [facility] Medication administered onsite heparin sodium, porcine 10 UNT/ML Inject able Solution heparin lock flush 10 UNIT/ML injection 20 Units heparin lock flush 10 UNIT/ML injection 20 Units 06/28/2019 05:15:00 PM EDT 20 U Intracatheter active 20 Units, Intracatheter, Every 12 hours, First dose on Wed06/28/19 at 1715, For 30 days
WHEN NOT IN USE - Verify blood return before use. Flush with 10 mL of Sodium Chloride 0.9 % and 2 mL Heparin 10 units/mL. Reference Policy C-34 Central Line Policy.
[facility] Medication administered onsite sodium chloride (preservative free) 0.9 % flush 10 mL [id number] 06/28/2019 05:15:00 PM EDT 10 mL Intravenous active 10 mL, Intravenous, Every 12 hours, First dose on Wed06/28/19 at 1715, For 30 days
WHEN NOT IN USE - Verify blood return before use. Flush with 10 mL of Sodium Chloride 0.9 % and 2 mL Heparin 10 units/mL. Reference Policy C-34H Central Line Policy.
[facility] Medication administered onsite sodium chloride (preservative free) 0.9 % flush 10 mL [id number] 06/28/2019 05:02:48 PM EDT 10 mL Intravenous active 10 mL, Intravenous, PRN, Line Care, Starting Wed06/28/19 at 1702, For 30 days
Verify blood return before use. Flush with 10 mL of Sodium Chloride 0.9 % before and after infusions or blood sampling followed-by 2 mL Heparin 10 units/mL to lock. Reference Policy C-34H Central Line Policy.
[facility] Medication administered onsite alteplase (CATHFLO) injection 2 mg [id number] 06/28/2019 01:30:00 PM EDT 2 mg Intracatheter completed 2 mg, Intra catheter, Once, Wed06/28/19 at 1330, For 1 dose
To be instilled by PICC team or IR nurse only for at least 30 minutes
[facility] Medication administered onsite Cyclobenzaprine hydrochloride 10 MG Oral Tablet cyclobenzaprine (FLEXERIL) tablet 5 mg cyclobenzaprine (FLEXERIL) tablet 5 mg 06/28/2019 11:45:00 AM ED T 5 mg Oral completed 5 mg, Oral , Daily Standard, First dose on Wed06/28/19 at 1145, For 4 doses [facility] Medication administered onsite Hydroxyzine Hydrochloride 25 MG Oral Tablet hydrOXYzin e (ATARAX) tablet 25 mg hydrOXYzine (ATARAX) tablet 25 mg 06/28/2019 11:36:58 AM EDT 25 mg Oral active 25 mg, Oral, Every 6 hours PRN, Itching, Anxiety, Starting Wed06/28/19 at 1136, For 6 days 21 hours [facility] Medication administered onsite Acetaminophen 325 MG Oral Tablet acetaminophen (TYLENO L) tablet 650 mg acetaminophen (TYLENOL) tablet 650 mg 06/28/2019 11:30:00 AM EDT 65 0 mg Oral aborted 650 mg, Oral, E very 6 hours, First dose (after last modification) on Wed06/28/19 at 1130, For 3 days
Maximum daily dose of acetaminophen is 3,000 mg from all sources in 24 hours.
[facility] Medication administered onsite quetiapine 25 MG Oral Tablet QUEtiapine (SEROquel) tab let 100 mg QUEtiapine (SEROquel) tablet 100 mg 06/27/2019 10:00:00 PM EDT 100 mg Oral active 100 mg, Oral, Nightly, First dose (after last modification) on Wed06/27/19 at 2200, For 30 days [facility] Medication administered onsite gabapentin 300 MG Oral Capsule gabapentin (NEURONTIN) capsule 300 mg gabapentin (NEURONTIN) capsule 300 mg 06/27/2019 10:00:00 PM EDT 300 mg Oral aborted 300 mg, Oral, Nightly, First dose on Wed06/27/19 at 2200, For 30 days [facility] Medication administered onsite heparin (porcine) 5000 UNIT/ML injection 5,000 Units [id number] 06/27/2019 09:00:00 PM EDT 5000 U Subcutaneous aborted 5,000 Units, Subcutaneous, Three Times Daily Standard, First dose on Wed06/27/19 at 2100, For 30 days [facility] Medication administered onsite DAPTOmycin (CUBICIN) 515 mg in sodium chloride 0.9 % 50 mL I VPB 06/27/2019 08:30:00 PM EDT 10 mg/kg Intravenous active 515 mg (rounded from 517 mg = 10 mg/kg 51.7 kg), Intravenous, Administer over 30 Minutes, Every 24 hours, First dose on Wed06/27/19 at 2030, For 12 doses [facility] Medication administered onsite Diclofenac Sodium 0.01 MG/MG Topical Gel Diclofenac Sodium (VOLTAREN) 1 % gel 2 g Diclofenac Sodium (VOLTAREN) 1 % gel 2 g 06/27/2019 07:45:00 PM EDT 2 g Topical active 2 g, Topical, Four Times Daily Standard, First dose on Wed06/27/19 at 1945, For 30 days
Apply to back
[facility] Medication administered onsite lidocaine (LIDODERM) 5 % patch 1 patch [id number] 0 07:45:00 PM EDT 1 {patch} Transdermal active 1 patch, T ransdermal, Every 24 hours, First dose on Wed06/27/19 at 1945, For 30 days
Apply to back12 hours on - 12 hours off
[facility] Medication administered onsite cefepime (MAXIPIME) 2 g in sodium chloride 0.9 % 50 mL infus ion 06/27/2019 07:30:00 PM EDT 2 g Intravenous aborted 2 g, Intravenous, Administer over 30 Minutes, Every 12 hours, First dose (after last modification) on Wed06/27/19 at 1930, For 3 days [facility] Medication administered onsite Acetaminophen 325 MG Oral Tablet acetaminophen (TYLENO L) tablet 650 mg acetaminophen (TYLENOL) tablet 650 mg 06/27/2019 06:40:17 PM EDT 65 0 mg Oral aborted 650 mg, Oral, E very 6 hours PRN, Mild Pain (Pain Scale Score 1- 3), Starting Wed06/27/19 at 1840, For 30 days
Maximum daily dose of acetaminophen is 3,000 mg from all sources in 24 hours.
[facility] Medication administered onsite fentaNYL (SUBLIMAZE) (PF) injection 25 mcg [id number] 06/27/2019 06:39:45 PM EDT 25 ug Intravenous completed 25 mcg, Intravenous, Every 3 hours PRN, Severe Pain (Pain Scale Score 7-10), Starting Wed06/27/19 at 1839, For 1 day [facility] Medication administered onsite Metronidazole 5 MG/ML Injectable Solution metroNIDAZOL E (FLAGYL) IVPB 500 mg metroNIDAZOLE (FLAGYL) IVPB 500 mg 06/27/2019 05:30:00 PM EDT 50 0 mg Intravenous aborted 500 mg, Intra venous, Administer over 60 Minutes, Every 8 hours, First dose on Wed06/27/19 at 1730, For 3 days [facility] Medication administered onsite Promethazine Hydrochloride 25 MG Oral Ta blet promethazine (PHENERGAN) tablet 25 mg promethazine (PHENERGAN) tablet 25 mg 06/27/2019 04:15:24 PM EDT 25 mg Oral active 25 mg, Oral, E very 6 hours PRN, Nausea, Starting Wed06/27/19 at 1615, For 30 days [facility] Medication administered onsite albuterol (PROVENTIL HFA;VENTOLIN HFA) inhaler 2 puff [id number] 06/27/2019 04:15:17 PM EDT 2 {puff} Inhalation active 2 puff, Inhalation, Every 4 hours PRN, Wheezing, Starting Wed06/27/19 at 1615, For 7 days 16 hours
Shake the inhaler well before each spray.
[facility] Medication administered onsite fentaNYL (SUBLIMAZE) (PF) injection 25 mcg [id number] 06/27/2019 04:15:00 PM EDT 25 ug Intravenous completed 25 mcg, Intravenous, Once, Wed06/27/19 at 1615, For 1 dose [facility] Medication administered onsite Oxycodone Hydrochloride 5 MG Oral Tablet oxyCODONE (ROXICODONE) immediate release tablet 5 mg oxyCODONE (ROXICODONE) immediate release tablet 5 mg 06/27/2019 04:09:41 PM EDT 5 mg Oral aborted 5 mg, Oral, Every 4 hours PRN, Moderate Pain (Pain Scale Score 4-6), Starting Wed06/27/19 at 1609, For 3 days 6 hours
Oxycodone immediate release is limited to 10 mg per dose. Higher doses ( only) require Pain Service consultation and approval.
[facility] Medication administered onsite tramadol hydrochloride 50 MG Oral Tablet Tramadol HCl 50 MG Tramadol HCl 50 MG 06/25/2019 12:00:00 AM EDT active 1 tablet as needed eCW1 ([facility]) Lorazepam 1 MG Oral Tablet Lorazepam 1 MG 06/22/2019 12:00:00 AM EDT active 1 tablet 1/2 hour before MRI eC W1 ([facility]) 5 % 06/22/2019 12:00:00 AM EDT adhesive patch,medicate d 5 APPLY 1 PATCH DAILY TO [facility], REMOVE PATCH AFTER 12 HOURS APPLY 1 PATCH DAILY TO [facility], REMOVE PATCH AFTER 12 HOURS SOLD: 06/23/2019 [facility] 300 mg 06/21/2019 12:00:00 AM EDT capsule 35 TAKE 1 CAPSULE BY MOUTH DAY 1 THEN TWO TIMES A DAY TAKE 1 CAPSULE BY MOUTH DAY 1 THEN TWO TIMES A DAY MIC[facility] Cyclobenzaprine hydrochloride 5 MG Oral Tablet Cyclobe nzaprine HCl 5 MG Cyclobenzaprine HCl 5 MG 06/13/2019 12:00:00 AM EDT 1.0 {tablet_as_ needed} suspended Cyclobenzaprine HCl 5 MG eCW1 ([facility]) Cyclobenzaprine hydrochloride 5 MG Oral Tablet Cyclobe nzaprine HCl 5 MG Cyclobenzaprine HCl 5 MG 06/13/2019 12:00:00 AM EDT active 1 tablet as needed eCW1 ([facility]) Cyclobenzaprine hydrochloride 5 MG Oral Tablet Cyclobe nzaprine HCl 5 MG Cyclobenzaprine HCl 5 MG 06/13/2019 12:00:00 AM EDT active 1 tablet as needed eCW1 ([facility]) Cyclobenzaprine hydrochloride 5 MG Oral Tablet Cyclobe nzaprine HCl 5 MG Cyclobenzaprine HCl 5 MG 06/13/2019 12:00:00 AM EDT suspended 1 tablet as needed eCW1 ([facility]) 325 mg (65 mg iron) 05/30/2019 12:00:00 AM EDT tablet 30 TAKE ONE TABLET BY MOUTH EVERY DAY TAKE ONE TABLET BY MOUTH EVERY DAY SOLD: 06/05/2019 [facility] Omeprazole 20 MG Delayed Release Oral Capsule Omeprazole 20 MG 05/01/2019 12:00:00 AM EST active Omeprazo le 20 MG eCW1 ([facility]) Omeprazole 20 MG Delayed Release Oral Capsule Omeprazole 20 MG 05/01/2019 12:00:00 AM EST active Omeprazo le 20 MG eCW1 ([facility]) Hydroxyzine Hydrochloride 25 MG Oral Tablet HydrOXYzin e HCl 25 MG HydrOXYzine HCl 25 MG 05/01/2019 12:00:00 AM EST active 1 tablet as needed eCW1 ([facility]) Omeprazole 20 MG Delayed Release Oral Capsule Omeprazole 20 MG 05/01/2019 12:00:00 AM EST active Omeprazo le 20 MG eCW1 ([facility]) Magnolia-Sequels 65-25 MG Magnolia-Sequels 65-25 MG 05/01/2019 12:00:[address] active 1 tablet eCW1 ([facility]) Omeprazole 20 MG Delayed Release Oral Capsule Omeprazole 20 MG 05/01/2019 12:00:00 AM EST active Omeprazo le 20 MG eCW1 ([facility]) Omeprazole 20 MG Delayed Release Oral Capsule Omeprazole 20 MG 05/01/2019 12:00:00 AM EST active 1 capsul e 30 minutes before morning meal eCW1 ([facility]) Hydroxyzine Hydrochloride 25 MG Oral Tablet HydrOXYzin e HCl 25 MG HydrOXYzine HCl 25 MG 05/01/2019 12:00:00 AM EST active 1 tablet as needed eCW1 ([facility]) Omeprazole 20 MG Delayed Release Oral Capsule Omeprazole 20 MG 05/01/2019 12:00:00 AM EST active Omeprazo le 20 MG eCW1 ([facility]) Omeprazole 20 MG Delayed Release Oral Capsule Omeprazole 20 MG 05/01/2019 12:00:00 AM EST active Omeprazo le 20 MG eCW1 ([facility]) Omeprazole 20 MG Delayed Release Oral Capsule Omeprazole 20 MG 05/01/2019 12:00:00 AM EST active Omeprazo le 20 MG eCW1 ([facility]) Hydroxyzine Hydrochloride 25 MG Oral Tablet HydrOXYzin e HCl 25 MG HydrOXYzine HCl 25 MG 05/01/2019 12:00:00 AM EST active 1 tablet as needed eCW1 ([facility]) Hydroxyzine Hydrochloride 25 MG Oral Tablet HydrOXYzin e HCl 25 MG HydrOXYzine HCl 25 MG 05/01/2019 12:00:00 AM EST 1.0 {tablet_as_needed} suspended HydrOXYzine HCl 25 MG eCW1 ([facility]) Omeprazole 20 MG Delayed Release Oral Capsule Omeprazole 20 MG 05/01/2019 12:00:00 AM EST active Omeprazo le 20 MG eCW1 ([facility]) Omeprazole 20 MG Delayed Release Oral Capsule Omeprazole 20 MG 05/01/2019 12:00:00 AM EST active Omeprazo le 20 MG eCW1 ([facility]) Omeprazole 20 MG Delayed Release Oral Capsule Omeprazole 20 MG 05/01/2019 12:00:00 AM EST active Omeprazo le 20 MG eCW1 ([facility]) Omeprazole 20 MG Delayed Release Oral Capsule Omeprazole 20 MG 05/01/2019 12:00:00 AM EST active Omeprazo le 20 MG eCW1 ([facility]) Hydroxyzine Hydrochloride 25 MG Oral Tablet HydrOXYzin e HCl 25 MG HydrOXYzine HCl 25 MG 05/01/2019 12:00:00 AM EST active 1 tablet as needed eCW1 ([facility]) Omeprazole 20 MG Delayed Release Oral Capsule Omeprazole 20 MG 05/01/2019 12:00:00 AM EST active Omeprazo le 20 MG eCW1 ([facility]) Magnolia-Sequels 65-25 MG Magnolia-Sequels 65-25 MG 05/01/2019 12:00:[address] active 1 tablet eCW1 ([facility]) Omeprazole 20 MG Delayed Release Oral Capsule Omeprazole 20 MG 05/01/2019 12:00:00 AM EST active Omeprazo le 20 MG eCW1 ([facility]) Omeprazole 20 MG Delayed Release Oral Capsule Omeprazole 20 MG 05/01/2019 12:00:00 AM EST active Omeprazo le 20 MG eCW1 ([facility]) Magnolia-Sequels 65-25 MG Magn[facility]-Sequels 65-25 MG 05/01/2019 12:00:[address] active 1 tablet eCW1 ([facility]) Omeprazole 20 MG Delayed Release Oral Capsule Omeprazole 20 MG 05/01/2019 12:00:00 AM EST active Omeprazo le 20 MG eCW1 ([facility]) Omeprazole 20 MG Delayed Release Oral Capsule Omeprazole 20 MG 05/01/2019 12:00:00 AM EST active Omeprazo le 20 MG eCW1 ([facility]) Omeprazole 20 MG Delayed Release Oral Capsule Omeprazole 20 MG 05/01/2019 12:00:00 AM EST active Omeprazo le 20 MG eCW1 ([facility]) Hydroxyzine Hydrochloride 25 MG Oral Tablet HydrOXYzin e HCl 25 MG HydrOXYzine HCl 25 MG 05/01/2019 12:00:00 AM EST active 1 tablet as needed eCW1 ([facility]) Omeprazole 20 MG Delayed Release Oral Capsule Omeprazole 20 MG 05/01/2019 12:00:00 AM EST active Omeprazo le 20 MG eCW1 ([facility]) Omeprazole 20 MG Delayed Release Oral Capsule Omeprazole 20 MG 05/01/2019 12:00:00 AM EST active Omeprazo le 20 MG eCW1 ([facility]) Omeprazole 20 MG Delayed Release Oral Capsule Omeprazole 20 MG 05/01/2019 12:00:00 AM EST active 1 capsul e 30 minutes before morning meal eCW1 ([facility]) Omeprazole 20 MG Delayed Release Oral Capsule Omeprazole 20 MG 05/01/2019 12:00:00 AM EST active Omeprazo le 20 MG eCW1 ([facility]) Omeprazole 20 MG Delayed Release Oral Capsule Omeprazole 20 MG 05/01/2019 12:00:00 AM EST active 1 capsul e 30 minutes before morning meal eCW1 ([facility]) Omeprazole 20 MG Delayed Release Oral Capsule Omeprazole 20 MG 05/01/2019 12:00:00 AM EST active Omeprazo le 20 MG eCW1 ([facility]) Omeprazole 20 MG Delayed Release Oral Capsule Omeprazole 20 MG 05/01/2019 12:00:00 AM EST active Omeprazo le 20 MG eCW1 ([facility]) Omeprazole 20 MG Delayed Release Oral Capsule Omeprazole 20 MG 05/01/2019 12:00:00 AM EST active 1 capsul e 30 minutes before morning meal eCW1 ([facility]) Omeprazole 20 MG Delayed Release Oral Capsule Omeprazole 20 MG 05/01/2019 12:00:00 AM EST active Omeprazo le 20 MG eCW1 ([facility]) Omeprazole 20 MG Delayed Release Oral Capsule Omeprazole 20 MG 05/01/2019 12:00:00 AM EST active Omeprazo le 20 MG eCW1 ([facility]) Omeprazole 20 MG Delayed Release Oral Capsule Omeprazole 20 MG 05/01/2019 12:00:00 AM EST active Omeprazo le 20 MG eCW1 ([facility]) Omeprazole 20 MG Delayed Release Oral Capsule Omeprazole 20 MG 05/01/2019 12:00:00 AM EST active Omeprazo le 20 MG eCW1 ([facility]) Omeprazole 20 MG Delayed Release Oral Capsule Omeprazole 20 MG 05/01/2019 12:00:00 AM EST active Omeprazo le 20 MG eCW1 ([facility]) Omeprazole 20 MG Delayed Release Oral Capsule Omeprazole 20 MG 05/01/2019 12:00:00 AM EST active Omeprazo le 20 MG eCW1 ([facility]) Hydroxyzine Hydrochloride 25 MG Oral Tablet HydrOXYzin e HCl 25 MG HydrOXYzine HCl 25 MG 05/01/2019 12:00:00 AM EST suspended 1 tablet as needed eCW1 ([facility]) Omeprazole 20 MG Delayed Release Oral Capsule Omeprazole 20 MG 05/01/2019 12:00:00 AM EST active 1 capsul e 30 minutes before morning meal eCW1 ([facility]) Hydroxyzine Hydrochloride 25 MG Oral Tablet HydrOXYzin e HCl 25 MG HydrOXYzine HCl 25 MG 05/01/2019 12:00:00 AM EST active 1 tablet as needed eCW1 ([facility]) Omeprazole 20 MG Delayed Release Oral Capsule Omeprazole 20 MG 05/01/2019 12:00:00 AM EST active Omeprazo le 20 MG eCW1 ([facility]) Acetaminophen 325 MG / Hydrocodone Flor trate 5 MG Oral Tablet Hydrocodone- Acetaminophen 5-325 MG Hydrocodone-Acetaminophen 5-325 MG 04/24/2019 12:00:00 AM EST active 1 tablet as neede d MDD 4 eCW1 ([facility]) Mirtazapine 30 MG Oral Tablet Mirtazapine 30 MG 04/18/2019 12:00:00 A M EST active 1 tablet at bedtime eCW1 ([facility]) meloxicam 7.5 MG Oral Tablet Meloxicam 7.5 MG Meloxicam 7.5 MG 04/18/2019 12:00:00 AM EST suspended 1 tab let eCW1 ([facility]) 24 HR venlafaxine 150 MG Extended Release Oral Tablet Venlafaxine HCl ER 150 MG Venlafaxine HCl ER 150 MG 04/18/2019 12:00:00 AM EST active 1 tablet with food eCW1 ([facility]) 24 HR venlafaxine 150 MG Extended Release Oral Tablet Venlafaxine HCl ER 150 MG Venlafaxine HCl ER 150 MG 04/18/2019 12:00:00 AM EST active 1 tablet with food eCW1 ([facility]) meloxicam 7.5 MG Oral Tablet Meloxicam 7.5 MG Meloxicam 7.5 MG 04/18/2019 12:00:00 AM EST active 1 tablet eCW1 ([facility]) meloxicam 7.5 MG Oral Tablet Meloxicam 7.5 MG Meloxicam 7.5 MG 04/18/2019 12:00:00 AM EST active 1 tablet eCW1 ([facility]) 24 HR venlafaxine 150 MG Extended Release Oral Tablet Venlafaxine HCl ER 150 MG Venlafaxine HCl ER 150 MG 04/18/2019 12:00:00 AM EST active 1 tablet with food eCW1 ([facility]) Mirtazapine 30 MG Oral Tablet Mirtazapine 30 MG 04/18/2019 12:00:00 A M EST active 1 tablet at bedtime eCW1 ([facility]) Mirtazapine 30 MG Oral Tablet Mirtazapine 30 MG 04/18/2019 12:00:00 A M EST active 1 tablet at bedtime eCW1 ([facility]) 24 HR venlafaxine 150 MG Extended Release Oral Tablet Venlafaxine HCl ER 150 MG Venlafaxine HCl ER 150 MG 04/18/2019 12:00:00 AM EST active 1 tablet with food eCW1 ([facility]) 24 HR venlafaxine 150 MG Extended Release Oral Tablet Venlafaxine HCl ER 150 MG Venlafaxine HCl ER 150 MG 04/18/2019 12:00:00 AM EST 1.0 {tablet_wi th_food} active Venlafaxine HCl ER 150 MG eCW1 ([facility]) 24 HR venlafaxine 150 MG Extended Release Oral Tablet Venlafaxine HCl ER 150 MG Venlafaxine HCl ER 150 MG 04/18/2019 12:00:00 AM EST active 1 tablet with food eCW1 ([facility]) 72 HR Fentanyl 0.075 MG/HR Transdermal Patch fentaNYL (DURAGESIC) 75 MCG/HR fentaNYL (DURAGESIC) 75 MCG/HR 07/13/2013 12:00:00 AM EDT 1 {pat ch} Transdermal aborted Place 1 patch onto the skin every 3 (three) days. [facility] 200 ACTUAT Albuterol 0.09 MG/ACTUAT Mete red Dose Inhaler [ProAir] PROAIR HFA 108 (90 BASE) MCG/ACT inhaler PROAIR HFA 108 (90 BASE) MCG/ACT inhaler 02/28/2013 12:00:00 AM EST aborted [facility] OxyCODONE HCl ER (OXYCONTIN) 60 MG [id number] 60 mg Oral aborted Take 60 mg by mouth every 12 (twelve) hours. [facility] Oxycodone Hydrochloride 30 MG Oral Table t oxycodone (ROXICODONE) 30 MG immediate release tablet oxycodone (ROXICODONE) 30 MG immediate release tablet 30 mg Oral aborted Take 30 mg by mouth every 4 (four) hours as needed for Pain. [facility] Lorazepam 1 MG Oral Tablet lorazepam (ATIVAN) 1 MG tab let lorazepam (ATIVAN) 1 MG tablet 1 mg Oral aborted Take 1 mg by mouth every 6 (six) hours as needed for Anxiety. [facility] Promethazine Hydrochloride 25 MG Oral Ta blet promethazine (PHENERGAN) 25 MG tablet promethazine (PHENERGAN) 25 MG tablet 25 mg Oral aborted Take 25 mg by mouth every 6 (six) hours as needed for Nausea. [facility] Trazodone Hydrochloride 100 MG Oral Tablet trazodone ( DESYREL) 100 MG tablet trazodone (DESYREL) 100 MG tablet 100 mg Oral abor mary Take 100 mg by mouth nightly as needed for Sleep. [facility] Alprazolam 0.25 MG Oral Tablet alprazolam (XANAX) 0.25 MG tablet alprazolam (XANAX) 0.25 MG tablet 0.25 mg Oral aborted Take 0.25 mg by mouth nightly as needed for Sleep. [facility] Clindamycin 150 MG Oral Capsule clindamycin (CLEOCIN) 150 MG capsule clindamycin (CLEOCIN) 150 MG capsule 150 mg Oral aborted Take 150 mg by mouth Three times daily. [facility] Insurance Providers Payer name Policy type / Coverage type Policy ID Covered alliance party ID Covered alliance party's relationship to eason Policy Eason Plan Information [facility] PLAN [facility] [id number] SP [id number] [facility] PLAN XIX [id number] 18 [id number] [facility] I [id number] Self [id number] [facility](MCA[facility]) O [id number] S [id number] UNITED HEALTHCARE-O/P [id number] UNITED HEALTHCARE-O/P UNAVAILABLE UNAVAILABLE INSURANCE COVID-19 COVID Lili C OVID COMMERCIAL GENERIC [id number] Lili [id number] [facility] [id number] Lili [id number] INSURANCE COVID-19 [id number] 2 [id number] COMMERCIAL GENERIC [id number] 2 [id number] [facility] [id number] SP [id number] COMMERCIAL GENERIC [id number] Lili 1 [id number] MEDICAID [id number] Lili [id number] COMMERCIAL GENERIC [id number] Lili 1 [id number] COMMERCIAL GENERIC [id number] Lili 1 [id number] [place] [place] O [id number] S [id number] WEST O [id number] S [id number] [facility] I [id number] Self [id number] MEDICARE A [id number] Self [id number] A VA CCN OPTUM [id number] SP [id number] 16 OTHER [facility] [id number] SP [id number] MEDICAID [id number] SP [id number] ADMINISTRATION [id number] SP [id number] MEDICAID M [id number] S [id number] O [id number] S [id number] [id number] [id number] SP [id number] SELF PAY ONLY [id number] SP [id number] [facility] TH[facility] DEPT [id number] SP [id number] SELF PAY S MEDICAID [id number] S [id number] MEDICARE [id number] SP [id number] A AETNA MEDICARE [id number] SP [id number] MEDICARE C [id number] S [id number] A AETNA MEDICARE [id number] SP [id number] DPJ AETNA MEDICARE O [id number] S [id number] DPJ AETNA MEDICARE [id number] SP [id number] DPJ [facility] [id number] SP [id number] [facility] O [id number] O [id number] SELF PAY UNAVAILABLE UNAVAILA BLE ASSIGNED MEDICARE (81) [id number] 1 [id number] MEDICARE A [id number] Self [id number] A BC BLUE CARD 1 [id number] MEDICARE 4 [id number] 1 [id number] A SELF PAY 2 UNAVAILABLE 1 UNAVAILA BLE BC BLUE CARD 1 [id number] O BLUE [id number] SP [id number] Problems, Conditions, and Diagnoses Code Display Name Description Problem Type Effective Dates Data Source(s) J18.9 [id number] Pneumonia due to inf ectious organism, unspecified laterality, unspecified part of lung Problem 02/20/2020 12:00:00 AM EST eCW1 ([facility]) R11.14 38713483 Bilious vomiting with nausea Problem 020 12:00:00 AM EST eCW1 ([facility]) I38 Endocarditis Endocarditis [id number] 01/08/2020 12:00:00 A M EST [facility] K12.0 [id number] Aphthous ulcer Problem 12/21/2019 12:00:00 A M EDT eCW1 ([facility]) I33.0 Acute and subacute bacterial endocarditi s Acute and subacute bacterial endocarditis [id number] 12/19/2019 12:00:00 AM EDT [facility] 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 Problem 12/11/2019 12:00:00 AM EDT eCW1 ([facility]) I96 418225969 Gangrene of finger Problem 12/08/2019 12:00: 00 AM EDT eCW1 ([facility]) M19.041 43293774 Primary osteoarthritis, right hand Proble m 09/20/2019 12:00:00 AM EDT eCW1 ([facility]) M19.042 [id number] Primary osteoarthritis, left hand Prob noa 09/20/2019 12:00:00 AM EDT eCW1 ([facility]) L56.8 29055644 Other specified acute skin rivera es due to ultraviolet radiation Problem 08/22/2019 12:00:00 AM EDT eCW1 ([facility]) M47.27 828842610 Lumbosacral radiculo josselyn due to degenerative joint disease of spine Problem 07/18/2019 12:00:00 AM EDT eCW1 ([facility]) K68.12 723623718 Psoas muscle abscess Problem 07/18/2019 12:0 0:00 AM EDT eCW1 ([facility]) F41.1 44347670 Generalized anxiety disorder Problem 020 12:00:00 AM EDT eCW1 ([facility]) E89.41 801302169 Surgical menopause, symptomatic Problem 07/18/2019 12:00:00 AM EDT eCW1 ([facility]) Z22.322 930588794 MRSA (methicillin resistant stap h aureus) culture positive Problem 07/18/2019 12:00:00 AM EDT eCW1 ([facility]) G06.1 392700256 Epidural abscess, L2-L5 Problem 07/18/2019 1 2:00:00 AM EDT eCW1 ([facility]) M47.27 957130284 Lumbosacral radiculo josselyn due to degenerative joint disease of spine Problem 07/18/2019 12:00:00 AM EDT eCW1 ([facility]) E89.41 488467058 Surgical menopause, symptomatic Problem 07/18/2019 12:00:00 AM EDT eCW1 ([facility]) Z22.322 907269922 MRSA (methicillin resistant stap h aureus) culture positive Problem 07/18/2019 12:00:00 AM EDT eCW1 ([facility]) G06.1 560693292 Epidural abscess, L2-L5 Problem 07/18/2019 1 2:00:00 AM EDT eCW1 ([facility]) F41.1 16742091 Generalized anxiety disorder Problem 020 12:00:00 AM EDT eCW1 ([facility]) K68.12 743196488 Psoas muscle abscess Problem 07/18/2019 12:0 0:00 AM EDT eCW1 ([facility]) M54.5 968765872 Acute midline low back pain without sciat ica Problem 06/19/2019 12:00:00 AM EDT eCW1 ([facility]) M54.5 923884715 Acute midline low back pain without sciat ica Problem 06/19/2019 12:00:00 AM EDT eCW1 ([facility]) M05.9 311205971 Rheumatoid arthritis with positive rheumatoid factor, involving unspecified site Problem 06/13/2019 12:00:00 AM EDT eCW1 ([facility]) 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 Problem 06/13/19 12:00:00 AM EDT eCW1 ([facility]) M05.9 688702270 Rheumatoid arthritis with positive rheumatoid factor, involving unspecified site Problem 06/13/2019 12:00:00 AM EDT eCW1 ([facility]) M31.0 31458003 Leucocytoclastic vasculitis Problem 06/13/19 20 12:00:00 AM EDT eCW1 ([facility]) M06.9 81719310 Rheumatoid arthritis , involving unspecified site, unspecified rheumatoid factor presence Problem 06/13/2019 12:00:00 AM EDT eCW1 ( [facility]) 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 Problem 05/26/2019 1 2:00:00 AM EDT eCW1 ([facility]) 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 467194374 Small vessel vasculitis Problem 05/26/2019 1 2:00:00 AM EDT eCW1 ([facility]) J06.9 279793764 Viral URI Problem 05/11/2019 12:00:00 AM ES T eCW1 ([facility]) D50.9 12258417 Iron deficiency anemia, unspecif ied iron deficiency anemia type Problem 05/01/2019 12:00:00 AM EST eCW1 ([facility]) K21.9 572680821 Gastroesophageal ref lux disease, esophagitis presence not specified Problem 05/01/2019 12:00:00 AM EST eCW1 ([facility]) Z86.19 94992195392369 History of hepatitis C Problem 0 12:00:00 AM EST eCW1 ([facility]) B95.62 098244807 Methicillin resistan t Staphylococcus aureus infection as the cause of diseases classified elsewhere Problem 05/01/2019 12:00:00 A M EST eCW1 ([facility]) R78.81 48969235000579213 Bacteremia Problem 05/01/2019 12:00:0 0 AM EST eCW1 ([facility]) I76 535563195 Septic embolism Problem 05/01/2019 12:00:00 AM EST eCW1 ([facility]) I76 790019809 Septic embolism Problem 05/01/2019 12:00:00 AM EST eCW1 ([facility]) R78.81 09442459723755782 Bacteremia Problem 05/01/2019 12:00:0 0 AM EST [facility] ([facility]) K21.9 569559160 Gastroesophageal ref lux disease, esophagitis presence not specified Problem 05/01/2019 12:00:00 AM EST [facility] ([facility]) Z86.19 62383499205653 History of hepatitis C Problem 0 12:00:00 AM [place] [address] ([facility]) B95.62 848573366 Methicillin resistan t Staphylococcus aureus infection as the cause of diseases classified elsewhere Problem 05/01/2019 12:00:00 A M [place] [address] ([facility]) D50.9 76101263 Iron deficiency anemia, unspecif ied iron deficiency anemia type Problem 05/01/2019 12:00:00 AM [place] [address] ([facility]) R30.0 38171761 Dysuria Problem 05/01/2019 12:00:00 AM [place] [address] ([facility]) L28.2 61115178 Pruritic rash Problem 05/01/2019 12:00:00 AM [place] [address] ([facility]) R99 Ill-defined and unknown cause of mortali ty Ill-defined and unknown cause of mortality Diagnosis 02/21/2020 08:06:[address] [facility] Z8619 Personal history of other infectious and parasitic diseases Personal history of other infectious and parasitic diseases Diagnosis 10:34:[address] [facility] D509 Iron deficiency anemia, unspecified Iron deficie ncy anemia, unspecified Diagnosis 02/20/2020 10:34:[address] [facility] B9562 Methicillin resistant Staphy lococcus aureus infection as the cause of diseases classified elsewhere Methicillin resistant Staphylococcus aur eus infection as the cause of diseases classified elsewhere Diagnosis 02/20/2020 10:34:[address] [facility] I38 Endocarditis, valve unspecified Endocarditis, valve un specified Diagnosis 01/10/2020 07:49:[address] [facility] U07.1 COVID-19 COVID-19 Diagnosis 01/09/2020 02:31:48 PM [facility] I33.0 Acute and subacute infective endocarditi s Acute and subacute infective endocarditi Diagnosis 01/01/2020 02:48:15 PM EDT [facility] M46.26 Osteomyelitis of vertebra, lumbar region Osteomyelitis of vertebra, lumbar region Diagnosis 06/27/2019 05:03:22 PM EDT [facility] R69 Illness, unspecified Illness, unspecified Diagnosis 06/27/2019 03:44:46 PM EDT [facility] bacteremia, osteomyelitis of lumbar jesus on and epidural abscess bacteremia, osteomyelitis of lumbar region and epidural abscess Diagnosis 03:44:46 PM [facility] Surgeries/Procedures Procedure Description Date Indications Data Source(s) POC SODIUM POC SODIUM Routine 01/10/2020 9:11 AM EST 01/10/2020 02:11:00 PM EST [facility] POC IONIZED CALCIUM POC IONIZED CALCIUM Routine 01/10/2020 9:11 AM EST 01/10/2020 02:11:00 PM EST [facility] POC GLUCOSE POC GLUCOSE Routine 01/10/2020 9:11 AM EST 01/10/2020 02:11:00 PM EST [facility] POCT POTASSIUM POCT POTASSIUM Routine 01/10/2020 9:11 AM EST 01/10/2020 02:11:[address] [facility] BLOOD COUNT HEMATOCRIT POCT HEMATOCRIT Routine 01/10/2020 9:11 AM EST 01/10/2020 02:11:00 PM [facility] 2019 NCOV AMPLIFIED 2019 NCOV AMPLIFIED STAT 01/09/2020 11 :55 AM EST COVID-19 01/09/2020 04:55:00 PM EST COVID-19 [facility] COVID-19 HEPATITIS C ANTIBODY HEPATITIS C ANTIBODY Routine 07/03/2019 4:27 PM EDT 07/03/2019 08:27:00 PM [facility] BLOOD COUNT COMPLETE AUTO&AUTO DIFRNTL WBC COUNT CBC AND DIFFER ENTIAL Routine 07/03/2019 3:30 AM EDT 07/03/2019 07:30:00 AM [facility] CREATINE KINASE TOTAL CK Routine 07/03/2019 3:30 AM EDT 07/03/2019 07:30:00 AM [facility] HEPATIC FUNCTION PANEL HEPATIC FUNCTION PANEL A Routine 07/03/2019 3:30 AM EDT 07/03/2019 07:30:00 AM EDT [facility] BASIC METABOLIC PANEL CALCIUM TOTAL BASIC METABOLIC PANEL Routi ne 07/03/2019 3:30 AM EDT 07/03/2019 07:30:00 AM EDT [facility] BLOOD COUNT COMPLETE AUTOMATED CBC Routine 07/02/2019 5:26 A M EDT 07/02/2019 09:26:00 AM [facility] MAGNESIUM MAGNESIUM LEVEL Routine 07/02/2019 5:26 AM EDT 07[facility]02[facility] CALCIUM TOTAL BASIC METABOLIC PANEL Routi ne 07/02/2019 5:26 AM EDT 07/02/2019 09:26:00 AM EDT [facility] EKG 12-LEAD - CMAXX REPORT EKG 12-LEAD - CMAXX REPORT 07/01/2019 10:01 AM EDT 07/01/2019 02:01:33 PM EDT [facility] EKG 12-LEAD - CMAXX REPORT EKG 12-LEAD - CMAXX REPORT 07/01/2019 10:01 AM EDT 07/01/2019 02:01:33 PM EDT [facility] EKG 12-LEAD EKG 12-LEAD Routine 07/01/2019 10:01 AM EDT 07/01/2019 02:01:33 PM [facility] BLOOD COUNT COMPLETE AUTOMATED CBC Routine 07/01/2019 5:08 A M EDT 07/01/2019 [facility]:08[facility]OLIC PANEL CALCIUM TOTAL BASIC METABOLIC PANEL Routi ne 07/01/2019 5:08 AM EDT 07/01/2019 09:08:00 AM EDT [facility] RADEX SPINE LUMBOSACRAL 2/3 VIEWS XR SPINE L-S 2-3 VIEWS [place] R [id number] Routine 06/30/2019 1:45 PM EDT Diagnosis unknown 06/30/2019 05:45:00 PM EDT Diagnosis unknown [facility] Diagnosis unknown POSTERIOR SPINAL FUSION/INSTRUMENTATION POSTERIOR SPI NAL FUSION/INSTRUMENTATION 06/30/2019 10:51 AM EDT Epidural abscess 06/30/2019 02:51:00 PM EDT - 06/30/2019 06:51:0 [facility] PROTIME INR Routine 06/30/2019 4:18 AM EDT 06/30/2019 08:18:[facility] BLO[facility] COMPLETE AUTO&AUTO DIFRNTL WBC COUNT CBC AND DIFFER ENTIAL Routine 06/30/2019 4:18 AM EDT 06/30/2019 08:18:[facility] BASIC METABOLIC PANEL CALCIUM TOTAL BASIC METABOLIC PANEL Routi ne 06/30/2019 4:18 AM EDT 06/30/2019 08:18:00 AM EDT [facility] BLOOD TYPING ABO TYPE AND CROSSMATCH Routine 06/29/2019 2:26 PM ED T 06/29/2019 06:26:00 PM [facility] ECG TRANSESOPHAG R-T 2D W/PRB IMG ACQUISJ I&R ECHOCARDIOGRA M TRANSESOPHAGEAL Routine 06/29/2019 12:07 PM EDT 06/29/2019 04:07:24 PM [facility] CONFIRMATORY TYPE CONFIRMATORY TYPE Routine 06/29/2019 4:24 AM EDT 06/29/2019 08:24:00 AM [facility] BLOOD COUNT COMPLETE AUTO&AUTO DIFRNTL WBC COUNT CBC AND DIFFER ENTIAL Routine 06/29/2019 4:24 AM EDT 06/29/2019 08:24:00 AM [facility] C-REACTIVE PROTEIN INFLAMMATORY C-REACTIVE PROTEIN (CRP) Routin e 06/29/2019 4:24 AM EDT 06/29/2019 08:24:00 AM EDT [facility] BASIC METABOLIC PANEL CALCIUM TOTAL BASIC METABOLIC PANEL Routi ne 06/29/2019 4:24 AM EDT 06/29/2019 08:24:00 AM EDT [facility] BLOOD COUNT COMPLETE AUTO&AUTO DIFRNTL WBC COUNT CBC AND DIFFER ENTIAL Routine 06/28/2019 4:16 AM EDT 06/28/2019 08:16:00 AM [facility] C-REACTIVE PROTEIN INFLAMMATORY C-REACTIVE PROTEIN (CRP) Routin e 06/28/2019 4:16 AM EDT 06/28/2019 08:16:00 AM EDT [facility] CREATINE KINASE TOTAL CK Routine 06/28/2019 4:16 AM EDT 06/28/2019 08:16:00 AM [facility] BASIC METABOLIC PANEL CALCIUM TOTAL BASIC METABOLIC PANEL Routi ne 06/28/2019 4:16 AM EDT 06/28/2019 08:16:00 AM EDT [facility] RADEX SPINE LUMBOSACRAL 2/3 VIEWS XR SPINE LUMBAR 2-3 VIEWS 721 00 Routine 06/27/2019 7:07 PM EDT 06/27/2019 11:07:36 PM EDT [facility] SEDIMENTATION RATE RBC AUTOMATED SEDIMENTATION RATE, AUTOMATED Routine 06/27/2019 6:41 PM EDT 06/27/2019 10:41:00 PM EDT [facility] C-REACTIVE PROTEIN HIGH SENSITIVITY CARDIAC HIGH SENS ITIVE C-REACTIVE PROTEIN (HS-CRP) Routine 06/27/2019 6:41 PM EDT 06/27/2019 10:41 :00 PM EDT [facility] XR CHEST FRONTAL ONLY [id number] XR CHEST FRONTAL ONLY [id number] Routine 06/27/2019 4:41 PM EDT 06/27/2019 08:41:41 PM EDT [facility] PUNCH BX SKIN SINGLE LESION 05/26/2019 12:00:00 AM EDT eCW1 ([facility]) ARTHROCENTESIS ASPIR&/INJECTION INTERM JT/BURSA 2019 12:00:00 AM EST MEDENT ([facility]) ARTHROCENTESIS ASPIR&/INJECTION MAJOR JT/BURSA 020 12:00:00 AM EST [facility] ([facility]) Results ID Date Data Source [id number] 04/28/2020 07:36:00 PM [facility] [address] [place] [address] ---------NAME--------- NUMBER SEX AGE ADMIT DISC. XRAY# F/C TYPE ROSALVA BUENO R [id number] F 49 04/28/20 [id number] X6B E/R DATE OF : 1970 M/R# [id number] #: [id number] TR-03 LOCATION: EMERGENCY DEPT TRANSCRIBED: 04/28/20 19:[address] HEAD W/O CONTRAST [id number] COMPLETED:04/28/20 19:[address] [facility] [address] Reason(s): Altered Mental Status PHYSICIAN: CARI==== R A D I O L O G Y R E P O R T ===PATIENT HISTORY:Jose pollock Joshua - 04/28/2020 6:59:03 PMaltered mental status, pt unable to give detailed history accumulated dlp 856.2mGy*cm est dlp 839 mGy*cm menopause-JJ[facility] / BONE (DICOM Hx)EXAM: CT Head Without IV contrast.CLINICAL HISTORY: Jose Pollock Joshua - 04/28/2020 6:59:03 PMaltered mental status, pt unable to give detailed history accumulated dlp 856.2mGy*cm est dlp 839 mGy*cm menopause-JJHTECHNIQUE: Axial computed tomography images of the head/brain withoutintravenous contrast. All CT scans at this facility use dose modulation,iterative reconstruction, and/or weight-based dosing when appropriate to reduceradiation dose to as low as reasonably achievable.COMPARISON: None provided.FINDINGS:BRAIN: No evidence of acute hemorrhage. No mass lesion. No CT evidence for acuteterritorial infarct. No midline shift or extra-axial collections.VENTRICLES: No hydrocephalus.ORBITS: The orbits are unremarkable.SINUSES AND MASTOIDS: The paranasal sinuses and mastoid air cells are clear.BONES: No fracture.SOFT TISSUES: Unremarkable.IMPRESSIONS:No acute intracranial abnormality.While performing the above CT examination, radiation dose reduction wasaccomplished utilizing automated exposure control, adjusting of the mA and kVbased on the patient's body size and/or the use of imperative reconstructivetechniques.Electronically Signed By:Antonio Allison MD , RadiologistDate/Time: 04/28/20 19:36 Name Value Range Interpretation Code Description Data Teresa rce(s) Supporting Document(s) ID Date Data Source [id number] 04/28/2020 07:29:00 PM EST [facility] Name Value Range Interpretation Code Description Data [facility](s) Supporting Document(s) DRUG SCREEN URINE [facility] URINE DRUG SCREEN Amphetamine [Presence] in Urine by Screen method PRESUMP POS CATALINA L: NEGATIVE [facility] BARBITURATES NEGATIVE NORMAL: NEGATIVE [facility] BENZO NEGATIVE NORMAL: NEGATIVE [facility] COCAINE NEGATIVE NORMAL: NEGATIVE [facility] Tetrahydrocannabinol [Presence] in Urine PRESUMP POS NORMAL: NEGATIVE [facility] OPIATES PRESUMP POS NORMAL: NEGATIVE [facility] Phencyclidine [Presence] in Urine by Screen method NEGATIVE NOR MAL: NEGATIVE [facility] \BLDo\URINE DRUG SCR EEN INTERPRETATION\BLDx\ THE CUTOFFF LEVELS FOR DETECTION ARE FOLLOWS: AMPHETAMINES 1000 ng/ml BARBITUARATES 200 ng/ml BENZODIAZEPINES 100 ng/ml THC 50 ng/ml PHENCYCLIDINE 25 ng/ml OPIATES 300 ng/ml COCAINE 300 ng/ml ALL POSITIVES ARE CONSIDERED PRESUMPTIVE POSITIVE CONFIRMATION WILL BE PERFORMED AT PHYSICIAN REQUEST. ID Date Data Source [id number] 04/28/2020 07:21:[address] [facility] Name Value Range Interpretation Code Description Data [facility](s) Supporting Document(s) [facility] COL[facility] yellow NORMAL: Yellow [facility] CLARITY clear NORMAL: Clear [facility] Specific gravity of Urine by Test strip 1.010 1.001 - 1.030 [facility] pH 6.5 5 - 9 [facility] al Glucose [Mass/volume] in Urine by Test strip NORM NORMAL: Negat [facility] Bilirubin.total [Presence] in Urine by Test strip NEG NORMAL: Negative [facility] Ketones [Presence] in Urine by Test strip NEG NORMAL: Negative [facility] Protein [Mass/volume] in Urine by Test strip 30 NORMAL: Negat [facility] Nitrite [Presence] in Urine by Test strip NEG NORMAL: Negative [facility] BLOOD 250 NORMAL: Negative A [facility] Leukocyte esterase [Presence] in Urine by Test strip 25 CATALINA L: Negative [facility] Urobilinogen [Mass/volume] in Urine by Test strip 1 less adryan n 1.0 mg/dL [facility] MICROSCOPIC See Below [facility] WBC 0 - [address]: [address] [facility] Erythrocytes [#/volume] in Urine by Test strip 3 - 5 NORMAL: NON E SEEN [facility] EPITHELIAL FEW NORMAL: NONE SEEN [facility] Bacteria [Presence] in Urine sediment by Light microscopy Tr jayde NORMAL: NONE SEEN [facility] ID Date Data Source [id number] 04/28/2020 07:16:[address] [facility] NOT DETECTEDNOT DETECTED{ PROC EDURAL CONTROL VALID KIT LOT # _[id number] 04/28/20.DONA. KIT EXP DATE _29-10-22 04/28/20.DONA. NORMAL RANGE IS NOT DETECTEDNEGATIVE RESULTS SHOULD BE TREATED PRESUMPTIVE AND, IF INCONSISTENT WITHCLINICAL SIGNS AND SYMPTOMS OR NECESSARY FOR PATIENT MANAGEMENT, SHOULD BETESTED WITH DIFFERENT AUTHORIZED OR CLEARED MOLECULAR TESTS. NEGATIVE RESULTSDO NOT PRECLUDE SARS-CoV-2 INFECTION AND SHOULD NOT BE USED THE SOLE BASISFOR PATIENT MANAGEMENT DECISIONS. Name Value Range Interpretation Code Description Data Teresa rce(s) Supporting Document(s) ID Date Data Source [id number] 04/28/2020 07:09:[address] [facility] Name Value Range Interpretation Code Description Data Teresa rce(s) Supporting Document(s) Lactate [Moles/volume] in Serum or Plasma 2.0 MMOL/L 0.2 - 2.2 [facility] ID Date Data Source [id number] 04/28/2020 05:07:[address] [facility] Name Value Range Interpretation Code Description Data Teresa rce(s) Supporting Document(s) Creatine kinase [Enzymatic activity/volume] in Serum or Plasma 3 48 U/L 30 - 170 H [facility] ID Date Data Source [id number] 04/28/2020 05:07:[address] [facility] Name Value Range Interpretation Code Description Data Teresa rce(s) Supporting Document(s) SALICYLATE <1.2 mg/dL 2.0 - 20.0 L [facility] ID Date Data Source [id number] 04/28/2020 05:07:00 PM [facility] Name Value Range Interpretation Code Description Data Teresa rce(s) Supporting Document(s) Thyrotropin [Units/volume] in Serum or Plasma by Detec tion limit <= 0.05 mIU/L 0.23 uIU/mL 0.47 - 5.01 L [facility] ID Date Data Source [id number] 04/28/2020 05:07:[address] [facility] Name Value Range Interpretation Code Description Data Teresa rce(s) Supporting Document(s) COMPREHENSIVE METABOLIC PANEL [facility] COMPREHENSIVE METABOLIC PANEL Sodium [Moles/volume] in Serum or Plasma 135 mEq/L 134 - 153 [facility] Potassium [Moles/volume] in Serum or Plasma 3.1 mEq/L 3.6 - 5.0 L [facility] Chloride [Moles/volume] in Serum or Plasma 90 mEq/L 98 - 107 L [facility] Carbon dioxide, total [Moles/volume] in Serum or Plasma 26 MEQ/L 22 - 30 [facility] Glucose [Mass/volume] in Serum or Plasma 117 MG/DL 70 - 99 H [facility] BUN 7 MG/DL 7 - 21 [facility] al Creatinine [Mass/volume] in Serum or Plasma 1.0 MG/DL 0.7 - 1.5 [facility] BUN/CREAT 7 8 - 27 L [facility] al Protein [Mass/volume] in Serum or Plasma 6.6 G/DL 6.3 - 8.2 [facility] Albumin [Mass/volume] in Serum or Plasma 3.7 G/DL 3.9 - 5.0 L [facility] Globulin [Mass/volume] in Serum by calculation 2.9 GM/DL 2.4 - 3.2 [facility] A/G RATIO 1.3 0.8 - 2.0 [facility] Calcium [Mass/volume] in Serum or Plasma 9.6 MG/DL 8.4 - 10.2 [facility] Bilirubin.total [Mass/volume] in Serum or Plasma 0.9 MG/DL 0.2 - 1.3 [facility] Alkaline phosphatase [Enzymatic activity/volume] in Serum or Plasma 124 U/L 38 - 126 [facility] Aspartate aminotransferase [Enzymatic activity/volume] in Serum or Plasma 46 U/L 5 - 40 H [facility] Alanine aminotransferase [Enzymatic activity/volume] in Seru m or Plasma 29 U/L 7 - 56 [facility] Anion gap 3 in Serum or Plasma 19.0 mmol/L 8.0 - 16.0 H [facility] AGE 49 yrs [facility] NON-AA GFR >60 mL/min [facility] AFR AMER GFR >60 mL/min [facility] Male GFR In terprentation 20-49 yrs >60 mL/min Normal 50-59 yrs >56 mL/min Normal 60-69 yrs >49 mL/min Normal 70-79yrs >42 mL/min Normal 80 and above >35 mL/min Normal Female GFR Interpretation 20-39 yrs >60 mL/min Normal 40-49 yrs >58 mL/min Normal 50-59 yrs >51 mL/min Normal 60-69 yrs >45 mL/min Normal 70-79 yrs >39 mL/min Normal 80 and above >32 mL/min Normal ID Date Data Source [id number] 04/28/2020 05:02:[address] [facility] Name Value Range Interpretation Code Description Data Teresa rce(s) Supporting Document(s) Ethanol [Moles/volume] in Blood <10.0 MG/DL [facility] ALCOHOL % 0.01 % 0.00 - 0.01 [facility] ital *FOR MEDICAL PURPOSES ONLY * ID Date Data Source [id number] 04/28/2020 05:02:[address] [facility] Name Value Range Interpretation Code Description Data Teresa rce(s) Supporting Document(s) Acetaminophen [Presence] in Urine <5.0 UG/ML 0.0 - 30.0 [facility] ID Date Data Source [id number] 04/28/2020 04:53:[address] [facility] Name Value Range Interpretation Code Description Data Teresa rce(s) Supporting Document(s) CBC W/AUTOMATED DIFF [facility] COMPLETE BLOOD COUNT Leukocytes [#/volume] in Blood by Automated count 15.4 10^3/uL 4.2 - 11.0 H [facility] Erythrocytes [#/volume] in Blood by Automated count 5.03 10^6/uL 4. 20 - 5.40 [facility] Hemoglobin [Mass/volume] in Blood 14.2 g/dL 12.0 - 16.0 [facility] Hematocrit [Volume Fraction] of Blood by Automated count 40.6 % 3 7.0 - 47.0 [facility] Erythrocyte mean corpuscular volume [Entitic volume] by Auto mated count 80.7 fL 81.0 - 101 L [facility] Erythrocyte mean corpuscular hemoglobin [Entitic mass] by Automated count 28.2 pg 27.0 - 34.0 [facility] Erythrocyte mean corpuscular hemoglobin concentration [Mass/volume] by Automated count 35.0 g/dL 31.0 - 36.0 [facility] Erythrocyte distribution width [Ratio] by Automated count 13.2 % 11.5 - 14.5 [facility] Platelets [#/volume] in Blood by Automated count 457 10^3/uL 150 - 45 0 H [facility] Platelet mean volume [Entitic volume] in Blood by Automated count 9.6 fL 7.4 - 10.4 [facility] Neutrophils/100 leukocytes in Blood by Automated count 63.3 % 37. 0 - 80.0 [facility] Lymphocytes/100 leukocytes in Blood by Manual count 23.9 % 25.0 - 40.0 L [facility] Monocytes/100 leukocytes in Blood by Automated count 10.7 % 3.0 - 8.0 H [facility] Eosinophils/100 leukocytes in Blood by Automated count 1.2 % 0.0 - 7.0 [facility] 0.6 %IG 0.3 % 0.0 - 0.0 [facility] %NR[facility] 0.0 % 0.0 - 0.0 [facility] al Neutrophils [#/volume] in Blood by Automated count 9.78 10^3/uL 2.00 - 6.90 H [facility] Lymphocytes [#/volume] in Blood by Automated count 3.69 10^3/uL 0.60 - 3.40 H [facility] Monocytes [#/volume] in Blood by Automated count 1.65 10^3/uL 0.00 - 0.90 H [facility] Eosinophils [#/volume] in Blood by Automated count 0.18 10^3/uL 0.00 - 0.70 [facility] Basophils [#/volume] in Blood by Automated count 0.09 10^3/uL 0.00 - 0.20 [facility] #IG 0.05 10^3/uL 0.00 - 0.10 [facility] #NRBC 0.00 10^3/uL 0.00 - 0.00 [facility] ospital MANUAL DIFF SEE BELOW [facility] Segmented neutrophils/100 leukocytes in Blood by Manual count 63 % 37 - 80 [facility] BAND 0 % 0 - 5 [facility] %LYMPH 33 % 25 - 40 [facility] %MONO 3 % 3 - 8 [facility] %EOS 1 % 0 - 7 [facility] RBC MORPH NOT INDICATED [facility] ID Date Data Source [id number] 04/28/2020 04:55:00 PM EST [facility] Name Value Range Interpretation Code Description Data Teresa rce(s) Supporting Document(s) HCG SERUM QUAL NEGATIVE NORMAL: NEGATIVE [facility] HCG SERUM QL REENTER NEGATIVE NORMAL: NEGATIVE [facility] { KIT LOT # [id number] ){ KIT EXP DATE 10.05.21 ){ PROCEDURAL CONTROL VALID ) ID Date Data Source [id number] 04/28/2020 04:53:00 PM EST [facility] Name Value Range Interpretation Code Description Data Teresa rce(s) Supporting Document(s) pH of Serum or Plasma 7.45 7.32 - 7.43 H [facility] pCO2 V 40.7 mm/HG 38.0 - 51.0 [facility] pO2 V 37.2 mm/HG 30.0 - 55.0 [facility] Bicarbonate [Moles/volume] in Venous blood 27.4 meq/L 22.0 - 29.0 [facility] TCO2 V 28.6 meq/L 22.0 - 29.0 [facility] Base excess in Blood by calculation 3.1 -2.0 - 2.0 H [facility] O2 SAT V 74.2 % 40.0 - 85.0 [facility] ID Date Data Source [id number] 04/25/2020 04:45:31 PM [facility] Name Value Range Interpretation Code Description Data Teresa rce(s) Supporting Document(s) Progress Note [facility] [id number] lbm [file] [id number]= ID Date Data Source [id number] 03/21/2020 04:05:00 PM EST [facility] Name Value Range Interpretation Code Description Data Teresa rce(s) Supporting Document(s) SARS-CoV-2 (COVID 19) NEGATIVE - SARS-CoV-2 (COVID19) [facility] This lab was ordered by [facility] a nd reported by [facility]. ID Date Data Source [id number] 03/18/2020 02:54:12 PM EST [facility] Name Value Range Interpretation Code Description Data Teresa rce(s) Supporting Document(s) Progress Note [facility] [id number] lbm [file] [id number]= ID Date Data Source HIV-1 RNA PCR QUANT [id number] (Viral Load) 03/12/2020 12:00:0 0 AM EST W1 ([facility]) Name Value Range Interpretation Code Description Data Teresa rce(s) Supporting Document(s) HIV 1 RNA [Units/volume] (viral load) in Serum or Plasma by Probe with amplification <20 . eC1 ([facility]) ID Date Data Source LDH LACTATE DEHYDROGENASE 03/12/2020 12:00:00 AM EST eCW1 ([facility]) Name Value Range Interpretation Code Description Data Teresa rce(s) Supporting Document(s) [id number] [facility] ([facility]) ID Date Data Source [id number] 03/12/2020 12:00:00 AM EST eCW1 ([facility]) Name Value Range Interpretation Code Description Data Teresa rce(s) Supporting Document(s) eCW1 ([facility]) ID Date Data Source ERYTHROCYTE SEDIMENTATION RATE 03/12/2020 12:00:00 AM EST eC W1 ([facility]) Name Value Range Interpretation Code Description Data Teresa rce(s) Supporting Document(s) 2 0-20 ERYTHROCYTE SEDIMENTATION RATE eCW1 ([facility]) ID Date Data Source C REACTIVE PROTEIN QUANTITATIV (At [facility]) 03/12/2020 12:00 :00 AM EST eCW1 ([facility]) Name Value Range Interpretation Code Description Data Teresa rce(s) Supporting Document(s) C-REACTIVE PROT QNT eCW1 ([facility]) 4.71 0.00-0.30 C REACTIVE PROTEIN QUANTI TATIV eCW1 ([facility]) ID Date Data Source CBC with Differential 03/12/2020 12:00:00 AM EST eCW1 ([facility]) Name Value Range Interpretation Code Description Data Teresa rce(s) Supporting Document(s) 13.8 4.0-10.0 WHITE BLOOD COUNT eCW1 ([facility]) 47.6 36.0-47.0 HEMATOCRIT eCW1 ([facility]) 5.45 4.00-5.40 RED BLOOD COUNT eCW1 ([facility]) 15.0 12.0-15.5 HEMOGLOBIN eCW1 ([facility]) 27.5 27.0-33.0 MEAN CORPUSCULAR HEMOGLOB IN eCW1 ([facility]) 31.5 32.0-36.5 MEAN CORPUSCULAR HGB CONC eCW1 ([facility]) 87.3 80.0-96.0 MEAN CORPUSCULAR VOLUME e CW1 ([facility]) 16.2 11.5-14.5 RED CELL DISTRIBUTION WID TH eCW1 ([facility]) 421 150-450 PLATELET COUNT, AUTOMATED eCW1 ([facility]) 50.7 36.0-66.0 NEUTROPHILS % eCW1 ([facility]) 41.0 24.0-44.0 LYMPH % eCW1 ([facility]) 4.9 0.0-5.0 MONO % eCW1 ([facility]) 0.5 0.0-1.0 BASO % eCW1 ([facility]) 2.5 0.0-3.0 EOS % eCW1 ([facility]) 5.7 1.5-5.0 LYMPH # eCW1 ([facility]) 7.0 1.5-8.5 NEUTROPHILS # eCW1 ([facility]) 0.7 0.0-0.8 MONO # eCW1 ([facility]) 0.1 0.0-0.2 BASO # eCW1 ([facility]) 0.3 0.0-0.5 EOS # eCW1 ([facility]) ID Date Data Source [id number] 03/05/2020 07:05:00 PM EST [facility] Name Value Range Interpretation Code Description Data Teresa rce(s) Supporting Document(s) Please note [facility] The date recorded on the requisition ind icates the sample(s) receivedwere greater than 72 hours old upon arrival in our laboratory. ID Date Data Source [id number] 03/09/2020 05:05:00 PM EST [facility] Name Value Range Interpretation Code Description Data Teresa rce(s) Supporting Document(s) HIV 1 Ab Negative Negative [facility] HIV 2 Ab Negative Negative [facility] Interpretation: Negative [facility] See RNA Reflex. ID Date Data Source [id number] 03/09/2020 05:05:00 PM EST [facility] Name Value Range Interpretation Code Description Data Teresa rce(s) Supporting Document(s) HIV 1 RNA Qualitative Negative Negative [facility] Negative for HIV-1 RNA Final Interpretation [facility] HIV antibodies were not confirmed and HI V 1 RNA was not detected. Nolaboratory evidence of HIV 1 infection. Follow-up testing for HIV 2should be performed if clinically indicated. ID Date Data Source [id number] 02/27/2020 02:46:00 PM EST [facility] Name Value Range Interpretation Code Description Data Teresa rce(s) Supporting Document(s) SARS coronavirus 2 RNA [Presence] in Res piratory specimen by DAVE with probe detection [facility] This lab was ordered by [facility] a nd reported by [facility]. ID Date Data Source [id number] 02/25/2020 06:26:00 PM EST [facility] Name Value Range Interpretation Code Description Data Teresa rce(s) Supporting Document(s) Bacteria identified in Blood by Culture [facility] NO GROWTH AFTER 5 DAYS ID Date Data Source [id number] 03/02/2020 06:43:00 AM EST [facility] Name Value Range Interpretation Code Description Data Teresa rce(s) Supporting Document(s) [facility] BLOOD CULTURE [facility] _CULTURE BLOOD_ [place] [address] CLIA# [id number] SEE SCANNED REPORT{ PRELIM ID Date Data Source [id number] 02/22/2020 06:18:00 AM EST [facility] Name Value Range Interpretation Code Description Data Teresa rce(s) Supporting Document(s) Hepatitis C virus Ab Signal/Cutoff in Serum or Plasma by Immunoassay 10.4 s/coratio 0.0-0.9 H [facility] Hepatitis C virus RNA [Units/volume] (vi ral load) in Serum or Plasma by Probe and target amplification method WILL FOLLOW [facility] Hepatitis C virus RNA [log units/volume] (viral load) in Serum or Plasma by Probe and target amplification method WILL FOLLOW [facility] Reference lab test reference range COMMENT [facility] The quantitative range of this assay is 15 IU/mL to 100 million IU/mL. Diagnostic impression [Interpretation] in Unspecified specimen Narrative WILL FOLLOW [facility] ID Date Data Source [id number] 02/20/2020 12:30:00 PM EST [facility] Name Value Range Interpretation Code Description Data Teresa rce(s) Supporting Document(s) C reactive protein [Mass/volume] in Serum or Plasma by High sensitivity method 76.57 MG/L 1.00 - 3.00 H [facility] HS-CRP CUT-OFF: RELATIVE RISK: <1.0 mg/L Low 1.0 - 3.0 mg/L Average >3.0 mg/L High Optimally, the average of HS-CRP results repeated two weeks apart should be used for risk assessment. ID Date Data Source [id number] 02/20/2020 12:30:[address] [facility] Name Value Range Interpretation Code Description Data Teresa rce(s) Supporting Document(s) Iron [Mass/volume] in Serum or Plasma 47 UG/DL 42 - 135 [facility] Iron binding capacity.unsaturated [Mass/volume] in Serum or Plasma 127 UG/DL 112 - 347 [facility] Iron binding capacity [Mass/volume] in Serum or Plasma 174 ug/dL 250 - 450 L [facility] Iron saturation [Mass Fraction] in Serum or Plasma 27 % [facility] ID Date Data Source [id number] 02/20/2020 12:30:00 PM EST [facility] Name Value Range Interpretation Code Description Data Teresa rce(s) Supporting Document(s) COMPREHENSIVE METABOLIC PANEL [facility] COMPREHENSIVE METABOLIC PANEL Sodium [Moles/volume] in Serum or Plasma 137 mEq/L 134 - 153 [facility] Potassium [Moles/volume] in Serum or Plasma 3.9 mEq/L 3.6 - 5.0 [facility] Chloride [Moles/volume] in Serum or Plasma 102 mEq/L 98 - 107 [facility] Carbon dioxide, total [Moles/volume] in Serum or Plasma 29 MEQ/L 22 - 30 [facility] Glucose [Mass/volume] in Serum or Plasma 114 MG/DL 65 - 110 H [facility] BUN 13 MG/DL 7 - 21 [facility] Creatinine [Mass/volume] in Serum or Plasma 0.7 MG/DL 0.7 - 1.5 [facility] BUN/CREAT 19 8 - 27 [facility] Protein [Mass/volume] in Serum or Plasma 6.8 G/DL 6.3 - 8.2 [facility] Albumin [Mass/volume] in Serum or Plasma 3.5 G/DL 3.9 - 5.0 L [facility] Globulin [Mass/volume] in Serum by calculation 3.3 GM/DL 2.4 - 3.2 H [facility] A/G RATIO 1.1 0.8 - 2.0 [facility] al Calcium [Mass/volume] in Serum or Plasma 8.5 MG/DL 8.4 - 10.2 [facility] Bilirubin.total [Mass/volume] in Serum or Plasma <0.7 MG/DL 0.2 - 1.3 [facility] Alkaline phosphatase [Enzymatic activity/volume] in Serum or Plasma 219 U/L 38 - 126 H [facility] Aspartate aminotransferase [Enzymatic activity/volume] in Serum or Plasma 17 U/L 5 - 40 [facility] Alanine aminotransferase [Enzymatic activity/volume] in Seru m or Plasma 27 U/L 7 - 56 [facility] Anion gap 3 in Serum or Plasma 6.0 mmol/L 8.0 - 16.0 L [facility] AGE 49 yrs [facility] al NON-AA GFR >60 mL/min [facility] ital AFR AMER GFR >60 mL/min [facility] Male GFR In terprentation 20-49 yrs >60 mL/min Normal 50-59 yrs >56 mL/min Normal 60-69 yrs >49 mL/min Normal 70-79yrs >42 mL/min Normal 80 and above >35 mL/min Normal Female GFR Interpretation 20-39 yrs >60 mL/min Normal 40-49 yrs >58 mL/min Normal 50-59 yrs >51 mL/min Normal 60-69 yrs >45 mL/min Normal 70-79 yrs >39 mL/min Normal 80 and above >32 mL/min Normal ID Date Data Source [id number] 02/20/2020 11:21:00 AM EST [facility] Name Value Range Interpretation Code Description Data Teresa rce(s) Supporting Document(s) Erythrocyte sedimentation rate by Westergren method 23 mm/hr 0 - 30 [facility] SED RATE REENTER 23 [facility] ID Date Data Source [id number] 02/20/2020 11:04:00 AM EST [facility] Name Value Range Interpretation Code Description Data Teresa rce(s) Supporting Document(s) CBC W/AUTOMATED DIFF [facility] COMPLETE BLOOD COUNT Leukocytes [#/volume] in Blood by Automated count 10.4 10^3/uL 4.2 - 11.0 [facility] Erythrocytes [#/volume] in Blood by Automated count 4.71 10^6/uL 4. 20 - 5.40 [facility] Hemoglobin [Mass/volume] in Blood 13.1 g/dL 12.0 - 16.0 [facility] Hematocrit [Volume Fraction] of Blood by Automated count 39.3 % 3 7.0 - 47.0 [facility] Erythrocyte mean corpuscular volume [Entitic volume] by Auto mated count 83.4 fL 81.0 - 101 [facility] Erythrocyte mean corpuscular hemoglobin [Entitic mass] by Automated count 27.8 pg 27.0 - 34.0 [facility] Erythrocyte mean corpuscular hemoglobin concentration [Mass/volume] by Automated count 33.3 g/dL 31.0 - 36.0 [facility] Erythrocyte distribution width [Ratio] by Automated count 18.0 % 11.5 - 14.5 H [facility] Platelets [#/volume] in Blood by Automated count 317 10^3/uL 150 - 45 0 [facility] Platelet mean volume [Entitic volume] in Blood by Automated count 9.1 fL 7.4 - 10.4 [facility] Neutrophils/100 leukocytes in Blood by Automated count 63.7 % 37. 0 - 80.0 [facility] Lymphocytes/100 leukocytes in Blood by Manual count 27.2 % 25.0 - 40.0 [facility] Monocytes/100 leukocytes in Blood by Automated count 4.9 % 3.0 - 8.0 [facility] Eosinophils/100 leukocytes in Blood by Automated count 3.2 % 0.0 - 7.0 [facility] Basophils/100 leukocytes in Blood by Automated count 0.5 % 0.0 - 2.5 [facility] %IG 0.5 % 0.0 - 0.0 [facility] %NRBC 0.0 % 0.0 - 0.0 [facility] al Neutrophils [#/volume] in Blood by Automated count 6.63 10^3/uL 2.00 - 6.90 [facility] Lymphocytes [#/volume] in Blood by Automated count 2.83 10^3/uL 0.60 - 3.40 [facility] Monocytes [#/volume] in Blood by Automated count 0.51 10^3/uL 0.00 - 0.90 [facility] Eosinophils [#/volume] in Blood by Automated count 0.33 10^3/uL 0.00 - 0.70 [facility] Basophils [#/volume] in Blood by Automated count 0.05 10^3/uL 0.00 - 0.20 [facility] #IG 0.05 10^3/uL 0.00 - 0.10 [facility] #NRBC 0.00 10^3/uL 0.00 - 0.00 [facility] MANUAL DIFF NOT INDICATED [facility] RBC MORPH NOT INDICATED [facility] ID Date Data Source IRON (FE) 02/20/2020 12:00:00 AM EST eCW1 ([facility]) Name Value Range Interpretation Code Description Data Teresa rce(s) Supporting Document(s) IRON eCW1 ([facility]) ID Date Data Source Comprehensive Metabolic Profile (CMP) 02/20/2020 12:00:00 AM EST eCW1 ([facility]) Name Value Range Interpretation Code Description Data Teresa rce(s) Supporting Document(s) 0.96 CREATININE FOR GFR eCW1 ([facility]) 11 BLOOD UREA NITROGEN eCW1 ([facility]) 78 GLUCOSE, FASTING eCW1 ([facility]) 30 CARBON DIOX[facility] LEVEL [facility] 104 CHLORIDE LEVEL eCW1 ([facility]) 4.3 POTASSIUM SERUM eCW1 ([facility]) 138 SODIUM LEVEL eCW1 ([facility]) 127 ALKALINE PHOSPHATASE eCW1 ([facility]) 9.5 CALCIUM LEVEL eCW1 ([facility]) 0.9 ALBUMIN/GLOBULIN RATIO eCW1 ([facility]) ELECTROLYTE PROFILE eCW1 ([facility]) COMPREHENSIVE METABOLIC PROFIL E eCW1 ([facility]) CREATININE eCW1 ([facility]) CREATININE WITH GFR eCW1 ([facility]) BUN eCW1 ([facility]) GLUCOSE eCW1 ([facility]) CHLORIDE eCW1 ([facility]) POTASSIUM eCW1 ([facility]) SODIUM eCW1 ([facility]) GLOMERULAR FILTRATION RATE eCW 1 ([facility]) ALK PHOS eCW1 ([facility]) CALCIUM eCW1 ([facility]) CARBON DIOXIDE eCW1 ([facility]) AST/SGOT eCW1 ([facility]) ALT/SGPT eCW1 ([facility]) ALB/GLOB RATIO eCW1 ([facility]) TOTAL PROTEIN eCW1 ([facility]) ALBUMIN eCW1 ([facility]) BILIRUBIN,TOTAL eCW1 ([facility]) ID Date Data Source [id number] 02/06/2020 01:45:[address] [facility] Name Value Range Interpretation Code Description Data Teresa rce(s) Supporting Document(s) SARS coronavirus [address] [facility] This lab was ordered by [facility] and reported by [facility]. ID Date Data Source [id number] 01/10/2020 04:54:46 PM EST [facility] NT INFORMATIONPatient MRN Name Date of Age Gend*PT [id number] Sujey Doty Estella 1970 49 years F HOPPT Location Admission Date/Time Visit ID Attending [id number] 01/10/20 0749 --- --- EPI ID CSN Admitting Provider [id number] Demetrice Gilliam MD([id number])Transesophageal ECHO ReportPatient Name: Sujey Doty of : 1970 Age 49 yearsGender: female Primary Physician: @PCP@Date of Surgery: 01/10/2020 PCP Phone: @PCPPH@Diagnostic InformationIndication for procedure: Follow-up with infectious endocarditisPhysician: Demetrice Gilliam MD, FACCAnesthesia: MAC. Please see separate anesthesia recordSpecimens: NoneEBL: NoneGrafts/Implants: NAComplications: NoneProcedure Details The patient was brought to the procedure lab in the fastin g state. Informedconsent was obtained after explanation of all risks benefits and alternativesand timeout was conducted prior to procedure. Sedation was provided. Duringthe procedure heart rate, heart rhythm, O2 sat and blood pressure werecontinuously monitored. The transesophageal echo probe was advanced into theposterior pharynx by myself. Multiple images including Doppler interrogationwere obtained. At the end of the procedure the probe was removed there were noimmediate complicationsECHO Findings1. Left and right ventricular normal size and function2. The left atrium appears to be normal size. The right atrium appears mildlydilated.3. The interatrial septum is intact by color Doppler and agitated salineinterrogation.4. Left atrial appendage is free of smoke and thrombus and velocities arenormal.5. Left upper pulmonary vein is interrogated with normal forward systolic flowand predominant S component6. Proximal ascending and descending thoracic aorta are normal in caliber withno si gnificant atherosclerosis.7. 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 There is no significanttricuspid stenosis. There is moderate tricuspid insufficiency. The pulmonarypressure is borderline estimated at RVSP 37 mmHg.8. The pulmonic valve is normal with no stenosis or insufficiency. Aorticvalve is trileaflet with no stenosis and trace insufficiency. Mitral valve isstructurally normal with no stenosis and trace insufficiency.Conclusion: Sma ll echodensity without independent motion attached to the atrialside of anterior leaflet of tricuspid valve measuring 0.4 x 0.7 cm, consistentmost likely with healed old endocarditis. There is moderate tricuspidinsufficiency.Signature: Demetrice Agosto MD, FACCDate: January 10, 2020Time: 4:49 PMThis document or parts of this document, were dictated using Point Blank Range software. Areasonable attempt at proofreading has been made to minimize errors. Please callwith any questions or corrections. Name Value Range Interpretation Code Description Data Teresa rce(s) Supporting Document(s) ID Date Data Source [id number] 01/10/2020 04:49:04 PM EST [facility] Name Value Range Interpretation Code Description Data Teresa rce(s) Supporting Document(s) &PDF [facility] KHOGHi2jLsOITbLb72/LPFjfKRXnc9BmYGujBEi6FErfBMTwW8CnyTaaXA6BVgoDJekKDUZIB7QPFnFk hdG [file] 0gDQo+Qa2Zr1ExvrQ4heBgGLdwOeZmJB9GEHIMK4QVZp== ID Date Data Source [id number] 01/10/2020 10:53:18 AM EST [facility] Name Value Range Interpretation Code Description Data Teresa rce(s) Supporting Document(s) &PDF [facility] XDQJVz7wCgSWQaMr21/EBLltYCCjx3EkZXfrPHu2HDgdCGPiW8CgsTmkNQ1GQflLGtsCPOYRY2QQFrUl hdG [file] ICAgICAgICAgICAgICAgICAgICAgICAgICAgICAgICAgICAgICAgICAgICAgICAgICAgICAgICAgICAg MCZaGPQnKNNhGFAjVUYcJXKqSTHcWWExWQTaZRXqMNMvLZFnQW3DXDVvDLMpSNPjBYBhGSMtEXHcLQIa ICAgICAgICAgICAgICAgICAgICAgICAgICAgICAgIC PoQIDiDHXmLIVdIQJmUVMjZOYgISUgXWRsOQDnMXLrSJKwOKSjSHZgSMUyGIHvAQ4LJYAxZIMbDEHyMS AgICAgICAgICAgICAgICAgICAgICAgICAgICAgICAgICAgICAgICAgICAgICAgICAgICAgICAgICAgIC KzACUnHREaEMFbJIOsFOOpFYBpRQGvBFXbTZOuHZ6R ICAgICAgICAgICAgICAgICAgICAgICAgICAgICAgICAgICAgICAgICAgICAgICAgICAgICAgICAgICAg GJTuEQPiKIRmTTYsZONhLNDcEVScHQYbAMXuHCDnRCDdSKEcKTUeWT4WDOOfKCWrSCOqLZAcTCTwTBAp ICAgICAgICAgICAgICAgICAgICAgICAgICAgICAgIC VoIJPsMGAtFKWpPBRpPLEhJICiOVWqYMXgTNOgYPTvMICnHUWrABFlMLGxLAZnYGBhJB9YIQJhSFBvEG AgICAgICAgICAgICAgICAgICAgICAgICAgICAgICAgICAgICAgICAgICAgICAgICAgICAgICAgICAgIC AgICAgICAgICAgICAgICAgICAgICAgICAgICAgICAg AQ0OSTAzWXFnJFZpTVMuECHpTVWvMTDzLFXrIMDiUIWvLLHbGQBmBURgBZOvDPArSFIlOHIbNIOxPUId VJPcHGIwPNNsUZIbSDMeYGCaARNjBFHbSVVwUHSoBZYdCFHdVTMfGRTdZD6LVHNnCQRzJVAqTXHiQLYw ICAgICAgICAgICAgICAgICAgICAgICAgICAgICAgIC YdXMCkTIVfYCJmCOLyXHWsEUZiCWKaKHVaROAuWXZwTDAuSQUvHMHkARPyEKEkVCYvEIJjPN1KJVYoHA AgICAgICAgICAgICAgICAgICAgICAgICAgICAgICAgICAgICAgICAgICAgICAgICAgICAgICAgICAgIC AgICAgICAgICAgICAgICAgICAgICAgICAgICAgICAg HUSmRG9XQFIhTKToSUYtPRYcWRClUZGyICGzUVWwVDKmACVxBQKdQCCiQFCzVWIsGRGvUQFqJIHhLGSt DBBnDSOnPPYsXLToLATxTNWwFKAxPLRrVDFpWEGdCLFqBEQfQUBxGKLhJWReOH6RDR94rHNqv9T1KDOt SI4ykcp/Ml7DMOvfkxGwuCSqCR6TMrFlYO3qso7XDl YeQR9hbf3XDDnGDhVfW1L0cTVbXLXdDMDQHySbZ93hPNgrIo47YYqtLMIkXtLoEXb0Xv5PUjYpP7wlEE TtWyJ6YWMoNbM5XWGoMwZdDXxxLU8Ru3YjhUOfJCh+Hi7ZRW1kw0FfHRvqIyFxUO7qly8ECFcFYwXoV9 W2nCFfO8D3MSfeUx7TGWQgNAPsXlGsOETYDHibFL3J TL6vcqE1NU7BrPEvCKDrJVKguHNrOKm3Z41imBTwEOcfQO5BULN+Von+Ft1EAUJqWACdJARiUrWqJOZW HkVyR22eiSWzWHTzXDM1LDBtNk0XYVRyD9DamlFayWmaycIrEFMtUVNOIX7PWOjmjqZmhDSnsVpnOB75 iHtnLW8WZr5ZRuTwWF9qvd4TzVOxOn7NELLjNg6MQK NyJYGgKNJeECR6DKUjBsLcMHliKIZsTFBeGEJ5KNLoVGFtSA6RGaFiVQWsNaP7TwhxXAQhLEFaev4VJD DfRXYdWVQeBrWaZPIgTKVuXJvkGHUgICXoIOb8JEPuIODdVT3UUqNfBUIaQKSnDaNoZLBpBRBwyj9RBW YrLCOjAjOoCyQcEWIkPMNcBMppZHLqZNW9THXjFCVi EQRbKR3SUsGfOQJbZCQ4KlTtFLEwSJOdtn5JDSXuGEVxRUH1UUQcCYIhNBLpVBjpBFXcNJT2JboqTHSt ZAKuKD3UPnMvYBAlXKR4BgBwKTGjXVNqce1KTATsGGAbFzctDTAqEHTkXFUrCNxkPOZqYCH4AEXhEIKa EECyJB6XWdOaVMBcLPowCJSsBNIaMXFxmk4GKENoEG GtDdT4RgLlRGEoEBKlRHdkDVTzHZZpSAo2PWFxZJSzUO8UOpPkYFVdZBN2JAVpUCDxWGFzgj2OYNNnWB RnXergZnVzTXJtCUCmRZcwDQEtNWKdYHqfPMWtYLUvYW9PAbVqCGMuDJPnDcNlJUXnLOYyif0CJHHlVD OyLVZzBQApZHOkTYSaCJfoZFUrVXA3EmrhMDSrDDWj GA9ATaRbHDStNHk4YbqpCUOoEFOzhd9HWTHtBHVrIqmoLBTmZFAzICNuCWhiMGSsOII6BnGdUINhASVc QN1PCkVwOXUzFmL9OTIhYDCnZYOzat0IwGHfwOehhx2MJDcCNu6IyZibAMZ7YKsoTq3lzWAjPmDpCGHA Ja5NymJnWAWaKXAGLDjePGQeDWZeTWF8FAGjFEO1VF qvAmN0DEl4QQQ9XGG5O9KwHeFsHtD3SUGoMXjaNUE6Jby0EPRwKOy2VyCxGGjsFIV0WCMkLDU+IF0gDQ o+Hf9Jq3WhbbS9owUbKHryBNs3Cr3JCRNBJ0QGFf== ID Date Data Source [id number] 01/10/2020 09:25:19 AM EST [facility] Name Value Range Interpretation Code Description Data Teresa rce(s) Supporting Document(s) POC SODIUM 137 MMOL/L (136-145) [facility]IN[facility] ID Date Data Source [id number] 01/10/2020 09:25:19 AM EST [facility] Name Value Range Interpretation Code Description Data Teresa rce(s) Supporting Document(s) POC POTASSIUM 4.8 MMOL/L (3.6-5.2) [facility] ID Date Data Source [id number] 01/10/2020 09:25:19 AM EST [facility] Name Value Range Interpretation Code Description Data Teresa rce(s) Supporting Document(s) POC GLU 93 MG/DL (70-99) [facility] ID Date Data Source [id number] 01/10/2020 09:25:19 AM EST [facility] Name Value Range Interpretation Code Description Data Teresa rce(s) Supporting Document(s) POC IONIZED CALCIUM 4.6 MG/DL (4.6-5.3) [facility] ID Date Data Source [id number] 01/10/2020 09:25:19 AM EST [facility] Name Value Range Interpretation Code Description Data Teresa rce(s) Supporting Document(s) POC HCT 37 % (36.0-47.0) [facility] ID Date Data Source [id number] 01/09/2020 11:55:00 AM EST [facility] Name Value Range Interpretation Code Description Data Teresa rce(s) Supporting Document(s) SARS coronavirus 2 RNA [Presence] in Res piratory specimen by DAVE with probe detection [facility] This lab was reported by [facility]. ID Date Data Source [id number] 01/09/2020 03:09:30 PM EST [facility] Name Value Range Interpretation Code Description Data Teresa rce(s) Supporting Document(s) SPECIMEN DESCRIPTION [facility] COVID19 RESULT (NDET) [facility] THIS ASSAY AMPLIFIES AND DETECTSTHE TARG ET RNA USING REAL-TIME PCR.NEGATIVE 2019_NCOV RT-PCR RESULTS DONOT PRECLUDE 2019_NCOV INFECTION ANDSHOULD NOT BE USED THE SOLE BASISFOR PATIENT MANAGEMENT DECISIONS. COMMENT [facility] UNDER AN EMERGENCY USE AUTHORIZATION(EUA ) FOR THE DETECTION AND/OR DIAGNOSISOF THE VIRUS THAT CAUSES COVID-19.EMAILED TO [facility] AT [id number] [place] [id number]. FIRST TEST [facility] [employer] [employer] SYMPTOMATIC [facility] DATE OF SYMPT ONSET [facility] HOSPITALIZED [facility] [place] ICU [facility] CONGREGATE CARE SET [facility] ID Date Data Source PROLACTIN 01/03/2020 09:29:59 AM EDT eCW1 ([facility]) Name Value Range Interpretation Code Description Data Teresa rce(s) Supporting Document(s) 15.9 PROLACTIN eCW1 ([facility]) ID Date Data Source HEPATITIS C QUANT BY PCR 12/25/2019 09:36:42 AM EDT eCW1 ([facility]) Name Value Range Interpretation Code Description Data Teresa rce(s) Supporting Document(s) HCV Not Detected HEPATITIS C QUANTIT ATION eCW1 ([facility]) TNP Hepatitis C log10 eCW1 ([facility]) ID Date Data Source BLOOD CULTURES 12/22/2019 03:41:16 AM EDT eCW1 ([facility]) Name Value Range Interpretation Code Description Data Treesa rce(s) Supporting Document(s) eCW1 ([facility]) ID Date Data Source [id number] 10/27/2019 12:05:00 AM EDT [facility] Name Value Range Interpretation Code Description Data Teresa rce(s) Supporting Document(s) CCP Antibodies IgG/IgA 0-19 Above high normal [facility] Negative <20 Weak positive 20 - 39 Moderate positive 40 - 59 Strong positive >59 ID Date Data Source [id number] 08/03/2019 03:19:00 PM EDT [facility] Received: 08/03/2019 at 14:01:00 SYR : [facility], [address], [place], [address], Juan Luis Pratt MD,PHD,KENNEDY Name Value Range Interpretation Code Description Data Teresa rce(s) Supporting Document(s) Glucose [Mass/volume] in Serum or Plasma 124 mg/dL 65-99 Above high normal [facility] Fasting reference intervalFor someone without known diabetes, a glucose valuebetween 100 and 125 mg/dL is consistent withprediabetes and should be confirmed with afollow-up test. Urea nitrogen [Mass/volume] in Serum or Plasma 9 mg/dL 7 -25 Normal (applies to non-numeric results) [facility] Creatinine [Mass/volume] in Serum or Plasma 0.78 mg/dL 0.50 -1.10 Normal (applies to non-numeric results) [facility] Glomerular filtration rate/1.73 sq M.pre dicted [Volume Rate/Area] in Serum, Plasma or Blood by Creatinine-based formula (MDRD) 90 mL/min/1.73m2 > OR = 60 Normal (applies to non-numeric results) [facility] Glomerular filtration rate/1.73 sq M pre dicted among blacks [Volume Rate/Area] in Serum or Plasma by Creatinine-based formula (MDRD) 104 mL/min/1.73m2 > OR = 60 Normal (applies to non-numeric results) [facility] Urea nitrogen/Creatinine [Mass Ratio] in Serum or Plasma NOT APPLICABLE (calc) 6-22 [facility] Sodium [Moles/volume] in Serum or Plasma 137 mmol/L 135-146 Normal (applies to non-numeric results) [facility] Potassium [Moles/volume] in Serum or Plasma 4.1 mmol/L 3.5- 5.3 Normal (applies to non-numeric results) [facility] Chloride [Moles/volume] in Serum or Plasma 102 mmol/L 98-11 0 Normal (applies to non-numeric results) [facility] Carbon dioxide, total [Moles/volume] in Serum or Plasma 28 mmol/ L 20-32 Normal (applies to non-numeric results) [facility] Calcium [Mass/volume] in Serum or Plasma 9.4 mg/dL 8.6-10. 2 Normal (applies to non-numeric results) [facility] ID Date Data Source [id number] 08/02/2019 10:55:00 AM EDT [facility] FASTING: UNKNOWNReceived: 08/02/2019 at 01:55:00 QPT: [facility] [address], [address] [place] [address], [address], Oleg Fuentes MD Received: 08/02/2019 at 01:55:00 QPT : [facility] [address], [address] [place] [address], [phone] MD Received: 08/02/2019 at 01:55:00 QPT : [facility], [address], [address] [place] [address], [phone] MD Received: 08/02/2019 at 01:55:00 QPT : [facility], [address], [address] [place] [address], [phone], Oleg Fuentes MD Received: 08/02/2019 at 01:55:00 QPT : [facility] [address], [address] [place] [address], [phone] MD Received: 08/02/2019 at 01:55:00 QPT : [facility] [address], [address] [place] [address], [phone], Oleg Fuentes MD Name Value Range Interpretation Code Description Data Teresa rce(s) Supporting Document(s) [id number] [facility] Whole blood, unspun or partially spun ge l barrier tubewas received more than 6 hours since collection. Afalse elevation of K, Phos and LD as well as a falsedecrease in glucose may occur due to prolonged contactwith red cells. ID Date Data Source [id number] 08/02/2019 10:55:00 AM EDT [facility] FASTING: UNKNOWNReceived: 08/02/2019 at 01:55:00 QPT: [facility], [address], [address] [place], [address], Oleg Fuentes MD Received: 08/02/2019 at 01:55:00 QPT : [facility], [address], [address] [place], [address], Oleg Fuentes MD Received: 08/02/2019 at 01:55:00 QPT : [facility], [address], [address] [place], [address], Oleg Fuentes MD Received: 08/02/2019 at 01:55:00 QPT : [facility], [address], [address] [place] [address], [phone], Oleg Fuentes MD Received: 08/02/2019 at 01:55:00 QPT : [facility], [address], [address] [place], [address], Oleg Fuentes MD Received: 08/02/2019 at 01:55:00 QPT : [facility], [address], [address] [place], [address], Oleg Fuentes MD Name Value Range Interpretation Code Description Data Teresa rce(s) Supporting Document(s) Glucose [Mass/volume] in Serum or Plasma 82 mg/dL 65-99 Normal (applies to non- numeric results) [facility] Fasting reference interval Urea nitrogen [Mass/volume] in Serum or Plasma 12 mg/dL 7 -25 Normal (applies to non-numeric results) [facility] Creatinine [Mass/volume] in Serum or Plasma 0.84 mg/dL 0.50 -1.10 Normal (applies to non-numeric results) [facility] Glomerular filtration rate/1.73 sq M.pre dicted [Volume Rate/Area] in Serum, Plasma or Blood by Creatinine-based formula (MDRD) 82 mL/min/1.73m2 > OR = 60 Normal (applies to non-numeric results) [facility] Glomerular filtration rate/1.73 sq M pre dicted among blacks [Volume Rate/Area] in Serum or Plasma by Creatinine-based formula (MDRD) 95 mL/min/1.73m2 > OR = 60 Normal (applies to non-numeric results) [facility] Urea nitrogen/Creatinine [Mass Ratio] in Serum or Plasma NOT APPLICABLE (calc) 6-22 [facility] Sodium [Moles/volume] in Serum or Plasma 137 mmol/L 135-146 Normal (applies to non-numeric results) [facility] Potassium [Moles/volume] in Serum or Plasma 6.0 mmol/L 3.5- 5.3 Above high normal [facility] Chloride [Moles/volume] in Serum or Plasma 100 mmol/L 98-11 0 Normal (applies to non-numeric results) [facility] Carbon dioxide, total [Moles/volume] in Serum or Plasma 24 mmol/ L 20-32 Normal (applies to non-numeric results) [facility] Calcium [Mass/volume] in Serum or Plasma 9.1 mg/dL 8.6-10. 2 Normal (applies to non-numeric results) [facility] Protein [Mass/volume] in Serum or Plasma 6.9 g/dL 6.1-8.1 Normal (applies to non-numeric results) [facility] Albumin [Mass/volume] in Serum or Plasma 3.6 g/dL 3.6-5.1 Normal (applies to non-numeric results) [facility] Globulin [Mass/volume] in Serum by calculation 3.3 g/dL (calc) 1 .9-3.7 Normal (applies to non-numeric results) [facility] Albumin/Globulin [Mass Ratio] in Serum or Plasma 1.1 (calc) 1.0-2.5 Normal (applies to non-numeric results) [facility] Bilirubin.total [Mass/volume] in Serum or Plasma 0.2 mg/dL 0.2-1.2 Normal (applies to non-numeric results) [facility] Alkaline phosphatase [Enzymatic activity/volume] in Serum or Plasma 128 U/L 31-125 Above high normal [facility] Aspartate aminotransferase [Enzymatic activity/volume] in Serum or Plasma 14 U/L 10-35 Normal (applies to non-numeric results) [facility] Alanine aminotransferase [Enzymatic activity/volume] in Seru m or Plasma 8 U/L 6-29 Normal (applies to non-numeric results) [facility] ID Date Data Source [id number] 08/02/2019 10:55:00 AM EDT [facility] FASTING: UNKNOWNReceived: 08/02/2019 at 01:55:00 QPT: [facility] [place], [address], [address] [place], [address], Oleg Fuentes MD Received: 08/02/2019 at 01:55:00 QPT : [facility], [address], [address] [place], [address], Oleg Fuentes MD Received: 08/02/2019 at 01:55:00 QPT : [facility], [address], [address] [place], [address], Oleg Fuentes MD Received: 08/02/2019 at 01:55:00 QPT : [facility], [address], [address] [place], [address], Oleg Fuentes MD Received: 08/02/2019 at 01:55:00 QPT : [facility], [address], [address] [place], [address], Oleg Fuentes MD Received: 08/02/2019 at 01:55:00 QPT : [facility], [address], [address] [place], [address], Oleg Fuentes MD Name Value Range Interpretation Code Description Data Teresa rce(s) Supporting Document(s) Creatine kinase [Enzymatic activity/volume] in Serum or Plasma 1 15 U/L 29-143 Normal (applies to non-numeric results) [facility] ID Date Data Source [id number] 08/02/2019 10:55:00 AM EDT [facility] FASTING: UNKNOWNReceived: 08/02/2019 at 01:55:00 QPT: [facility] [place], [address], [address] [place], [phone] MD Received: 08/02/2019 at 01:55:00 QPT : [facility], [address], [address] [place], [address], Oleg Fuentes MD Received: 08/02/2019 at 01:55:00 QPT : [facility], [address], [address] [place], [address], Oleg Fuentes MD Received: 08/02/2019 at 01:55:00 QPT : [facility], [address], [address] [place], [address], Oleg Fuentes MD Received: 08/02/2019 at 01:55:00 QPT : [facility], [address], [address] [place], [address], Oleg Fuentes MD Received: 08/02/2019 at 01:55:00 QPT : [facility], [address], [address] [place] [address], [address], Oleg Fuentes MD Name Value Range Interpretation Code Description Data Teresa rce(s) Supporting Document(s) Erythrocyte sedimentation rate by Westergren method 58 mm/h < OR = 20 Above high normal [facility] ID Date Data Source [id number] 08/02/2019 10:55:00 AM EDT [facility] FASTING: UNKNOWNReceived: 08/02/2019 at 01:55:00 QPT: [facility] [place], [address], [address] [place] [address], [phone], Oleg Fuentes MD Received: 08/02/2019 at 01:55:00 QPT : [facility], [address], [address] [place], [address]Oleg MD Received: 08/02/2019 at 01:55:00 QPT : [facility], [address], [address] [place] [address], [phone] MD Received: 08/02/2019 at 01:55:00 QPT : [facility], [address], [address] [place] [address], [address], Oleg Fuentes MD Received: 08/02/2019 at 01:55:00 QPT : [facility], [address], [address] [place] [address], [phone], Oleg Fuentes MD Received: 08/02/2019 at 01:55:00 QPT : [facility], [address], [address] [place], [address], Oleg Fuentes MD Name Value Range Interpretation Code Description Data Teresa rce(s) Supporting Document(s) Leukocytes [#/volume] in Blood by Automated count 8.5 Thousand/u L 3.8-10.8 Normal (applies to non-numeric results) [facility] Erythrocytes [#/volume] in Blood by Automated count 3.78 Million /uL 3.80-5.10 Below low normal [facility] Hemoglobin [Mass/volume] in Blood 10.1 g/dL 11.7-15.5 Below low nor mal [facility] Hematocrit [Volume Fraction] of Blood by Automated count 31.6 % 35.0-45.0 Below low normal [facility] Erythrocyte mean corpuscular volume [Entitic volume] by Auto mated count 83.6 fL 80.0-100.0 Normal (applies to non-numeric results) [facility] Erythrocyte mean corpuscular hemoglobin [Entitic mass] by Automated count 26.7 pg 27.0-33.0 Below low normal [facility] Erythrocyte mean corpuscular hemoglobin concentration [Mass/volume] by Automated count 32.0 g/dL 32.0-36.0 Normal (applies to non-numeric results) [facility] Erythrocyte distribution width [Ratio] by Automated count 17.1 % 11.0-15.0 Above high normal [facility] Platelets [#/volume] in Blood by Automated count 291 Thousand/uL 140-400 Normal (applies to non-numeric results) [facility] Platelet mean volume [Entitic volume] in Blood by Chas 9.8 fL 7.5-12.5 Normal (applies to non-numeric results) [facility] Neutrophils [#/volume] in Blood by Automated count 4361 cells/uL 2031-8958 Normal (applies to non-numeric results) [facility] Lymphocytes [#/volume] in Blood by Automated count 2363 cells/uL 850-3900 Normal (applies to non-numeric results) [facility] Monocytes [#/volume] in Blood by Automated count 638 cells/uL 200-950 Normal (applies to non-numeric results) [facility] Eosinophils [#/volume] in Blood by Automated count 1088 cells/uL 15-500 Above high normal [facility] Basophils [#/volume] in Blood by Automated count 51 cells/uL 0-200 Normal (applies to non-numeric results) [facility] Neutrophils/100 leukocytes in Blood by Automated count 51.3 % 38-80 Normal (applies to non-numeric results) [facility] Lymphocytes/100 leukocytes in Blood by Automated count 27.8 % 15-49 Normal (applies to non-numeric results) [facility] Monocytes/100 leukocytes in Blood by Automated count 7.5 % 0-13 Normal (applies to non-numeric results) [facility] Eosinophils/100 leukocytes in Blood by Automated count 12.8 % 0-8 Above high normal [facility] Basophils/100 leukocytes in Blood by Automated count 0.6 % 0-2 Normal (applies to non-numeric results) [facility] ID Date Data Source [id number] 08/02/2019 10:55:00 AM EDT [facility] FASTING: UNKNOWNReceived: 08/02/2019 at 01:55:00 QPT: [facility] [address], [address] [place] [address], [phone], Oleg Fuentes MD Received: 08/02/2019 at 01:55:00 QPT : [facility], [address] [place] [address], [address]Oleg MD Received: 08/02/2019 at 01:55:00 QPT : [facility], [address] [place] [address], [phone] MD Received: 08/02/2019 at 01:55:00 QPT : [facility], [address] [place] [address], [phone] MD Received: 08/02/2019 at 01:55:00 QPT : [facility] [address], [address] [place] [address], [phone] MD Received: 08/02/2019 at 01:55:00 QPT : [facility] [address], [address] [place] [address], [phone] MD Name Value Range Interpretation Code Description Data Teresa rce(s) Supporting Document(s) C reactive protein [Mass/volume] in Serum or Plasma 59.6 mg/L <8.0 Above high normal [facility] ID Date Data Source [id number] 07/25/2019 08:57:00 AM EDT [facility] FASTING:UNKNOWNFASTING: UNKNOWNReceived: 07/24/2019 at 14:03:00 SYR: [facility], [address], [place], [address], Juan Luis Pratt MD,PHD,KENNEDY Received: 07/24/2019 at 14:03:00 SYR : [facility], [address], [place], [address], Juan Luis Pratt MD,PHD,KENNEDY Received: 07/24/2019 at 14:03:00 QPT : [facility], [address] [place] [address], [phone], Oleg Fuentes MD Received: 07/24/2019 at 14:03:00 SYR : [facility], [address], [place], [address], Juan Luis Pratt MD,PHD,KENNEDY Received: 07/24/2019 at 14:03:00 QPT : [facility], [address], [address] [place] [address], [phone], Oleg Fuentes MD Name Value Range Interpretation Code Description Data Teresa rce(s) Supporting Document(s) Glucose [Mass/volume] in Serum or Plasma 187 mg/dL 65-99 Above high normal [facility] Fasting reference intervalFor someone without known diabetes, a glucosevalue >125 mg/dL indicates that they may havediabetes and this should be confirmed with afollow-up test. Urea nitrogen [Mass/volume] in Serum or Plasma 11 mg/dL 7 -25 Normal (applies to non-numeric results) [facility] Creatinine [Mass/volume] in Serum or Plasma 1.01 mg/dL 0.50 -1.10 Normal (applies to non-numeric results) [facility] Glomerular filtration rate/1.73 sq M.pre dicted [Volume Rate/Area] in Serum, Plasma or Blood by Creatinine-based formula (MDRD) 66 mL/min/1.73m2 > OR = 60 Normal (applies to non-numeric results) [facility] Glomerular filtration rate/1.73 sq M pre dicted among blacks [Volume Rate/Area] in Serum or Plasma by Creatinine-based formula (MDRD) 76 mL/min/1.73m2 > OR = 60 Normal (applies to non-numeric results) [facility] Urea nitrogen/Creatinine [Mass Ratio] in Serum or Plasma NOT APPLICABLE (calc) 6-22 [facility] Sodium [Moles/volume] in Serum or Plasma 133 mmol/L 135-146 Below low normal [facility] Potassium [Moles/volume] in Serum or Plasma 4.3 mmol/L 3.5- 5.3 Normal (applies to non-numeric results) [facility] Chloride [Moles/volume] in Serum or Plasma 99 mmol/L 98-11 0 Normal (applies to non-numeric results) [facility] Carbon dioxide, total [Moles/volume] in Serum or Plasma 24 mmol/ L 20-32 Normal (applies to non-numeric results) [facility] Calcium [Mass/volume] in Serum or Plasma 9.1 mg/dL 8.6-10. 2 Normal (applies to non-numeric results) [facility] Protein [Mass/volume] in Serum or Plasma 7.3 g/dL 6.1-8.1 Normal (applies to non-numeric results) [facility] Albumin [Mass/volume] in Serum or Plasma 3.7 g/dL 3.6-5.1 Normal (applies to non-numeric results) [facility] Globulin [Mass/volume] in Serum by calculation 3.6 g/dL (calc) 1 .9-3.7 Normal (applies to non-numeric results) [facility] Albumin/Globulin [Mass Ratio] in Serum or Plasma 1.0 (calc) 1.0-2.5 Normal (applies to non-numeric results) [facility] Bilirubin.total [Mass/volume] in Serum or Plasma 0.4 mg/dL 0.2-1.2 Normal (applies to non-numeric results) [facility] Alkaline phosphatase [Enzymatic activity/volume] in Serum or Plasma 153 U/L 31-125 Above high normal [facility] Aspartate aminotransferase [Enzymatic activity/volume] in Serum or Plasma 20 U/L 10-35 Normal (applies to non-numeric results) [facility] Alanine aminotransferase [Enzymatic activity/volume] in Seru m or Plasma 14 U/L 6-29 Normal (applies to non-numeric results) [facility] ID Date Data Source [id number] 07/25/2019 08:57:00 AM EDT [facility] FASTING:UNKNOWNFASTING: UNKNOWNReceived: 07/24/2019 at 14:03:00 SYR: [facility], [address], [place], [address], Juan Luis Pratt MD,PHD,KENNEDY Received: 07/24/2019 at 14:03:00 SYR : [facility], [address], [place], [address], Juan Luis Pratt MD,PHD,KENNEDY Received: 07/24/2019 at 14:03:00 QPT : [facility], [address] , [address] [place] [address], [phone], Oleg Fuentes MD Received: 07/24/2019 at 14:03:00 SYR : [facility], [address], [place], [address], Juan Luis Pratt MD,PHD,KENNEDY Received: 07/24/2019 at 14:03:00 QPT : [facility], [address] , [address] [place] [address], [phone], Oleg Fuentes MD Name Value Range Interpretation Code Description Data Teresa rce(s) Supporting Document(s) Creatine kinase [Enzymatic activity/volume] in Serum or Plasma 6 44 U/L 29-143 Above high normal [facility] ID Date Data Source [id number] 07/25/2019 08:57:00 AM EDT [facility] FASTING:UNKNOWNFASTING: UNKNOWNReceived: 07/24/2019 at 14:03:00 SYR: [facility], [address], [place], [address], Juan Luis Pratt MD,PHD,KENNEDY Received: 07/24/2019 at 14:03:00 SYR : [facility], [address], [place], [address], Juan Luis Pratt MD,PHD,KENNEDY Received: 07/24/2019 at 14:03:00 QPT : [facility], [address], [address] [place] [address], [phone], Oleg Fuentes MD Received: 07/24/2019 at 14:03:00 SYR : [facility], [address], [place], [address], Juan Luis Pratt MD,PHD,KENNEDY Received: 07/24/2019 at 14:03:00 QPT : [facility], [address], [address] [place] [address], [address], Oleg Fuentes MD Name Value Range Interpretation Code Description Data Teresa rce(s) Supporting Document(s) Erythrocyte sedimentation rate by Westergren method 82 mm/h < OR = 20 Above high normal [facility] ID Date Data Source [id number] 07/25/2019 08:57:00 AM EDT [facility] FASTING:UNKNOWNFASTING: UNKNOWNReceived: 07/24/2019 at 14:03:00 SYR: [facility], [address], [place], [address], Juan Luis Pratt MD,PHD,KENNEDY Received: 07/24/2019 at 14:03:00 SYR : [facility], [address], [place], [address], Juan Luis Pratt MD,PHD,KENNEDY Received: 07/24/2019 at 14:03:00 QPT : [facility], [address], [address] [place] [address], [phone], Oleg Fuentes MD Received: 07/24/2019 at 14:03:00 SYR : [facility], [address], [place], [address], Juan Luis Pratt MD,PHD,KENNEDY Received: 07/24/2019 at 14:03:00 QPT : [facility], [address], [address] [place] [address], [phone], Oleg Fuentes MD Name Value Range Interpretation Code Description Data Teresa rce(s) Supporting Document(s) Leukocytes [#/volume] in Blood by Automated count 9.9 Thousand/u L 3.8-10.8 Normal (applies to non-numeric results) [facility] Erythrocytes [#/volume] in Blood by Automated count 3.73 Million /uL 3.80-5.10 Below low normal [facility] Hemoglobin [Mass/volume] in Blood 10.1 g/dL 11.7-15.5 Below low nor mal [facility] Hematocrit [Volume Fraction] of Blood by Automated count 30.7 % 35.0-45.0 Below low normal [facility] Erythrocyte mean corpuscular volume [Entitic volume] by Auto mated count 82.3 fL 80.0-100.0 Normal (applies to non-numeric results) [facility] Erythrocyte mean corpuscular hemoglobin [Entitic mass] by Automated count 27.1 pg 27.0-33.0 Normal (applies to non-numeric results) [facility] Erythrocyte mean corpuscular hemoglobin concentration [Mass/volume] by Automated count 32.9 g/dL 32.0-36.0 Normal (applies to non-numeric results) [facility] Erythrocyte distribution width [Ratio] by Automated count 18.0 % 11.0-15.0 Above high normal [facility] Platelets [#/volume] in Blood by Automated count 313 Thousand/uL 140-400 Normal (applies to non-numeric results) [facility] Platelet mean volume [Entitic volume] in Blood by Chas 9.2 fL 7.5-12.5 Normal (applies to non-numeric results) [facility] Neutrophils [#/volume] in Blood by Automated count 5118 cells/uL 5210-9161 Normal (applies to non-numeric results) [facility] Lymphocytes [#/volume] in Blood by Automated count 2673 cells/uL 850-3900 Normal (applies to non-numeric results) [facility] Monocytes [#/volume] in Blood by Automated count 782 cells/uL 200-950 Normal (applies to non-numeric results) [facility] Eosinophils [#/volume] in Blood by Automated count 1297 cells/uL 15-500 Above high normal [facility] Basophils [#/volume] in Blood by Automated count 30 cells/uL 0-200 Normal (applies to non-numeric results) [facility] Neutrophils/100 leukocytes in Blood by Automated count 51.7 % 38-80 Normal (applies to non-numeric results) [facility] Lymphocytes/100 leukocytes in Blood by Automated count 27.0 % 15-49 Normal (applies to non-numeric results) [facility] Monocytes/100 leukocytes in Blood by Automated count 7.9 % 0-13 Normal (applies to non-numeric results) [facility] Eosinophils/100 leukocytes in Blood by Automated count 13.1 % 0-8 Above high normal [facility] Basophils/100 leukocytes in Blood by Automated count 0.3 % 0-2 Normal (applies to non-numeric results) [facility] ID Date Data Source [id number] 07/25/2019 08:57:00 AM EDT [facility] FASTING:UNKNOWNFASTING: UNKNOWNReceived: 07/24/2019 at 14:03:00 SYR: [facility], [address], [place], [address], Juan Luis Pratt MD,PHD,KENNEDY Received: 07/24/2019 at 14:03:00 SYR : [facility], [address], [place], [address], Juan Luis Pratt MD,PHD,KENNEDY Received: 07/24/2019 at 14:03:00 QPT : [facility], [address], [address] [place] [address], [address], Oleg Fuentes MD Received: 07/24/2019 at 14:03:00 SYR : [facility], [address], [place], [address], Juan Luis Pratt MD,PHD,KENNEDY Received: 07/24/2019 at 14:03:00 QPT : [facility], [address], [address] [place] [address], [phone], Oleg Fuentes MD Name Value Range Interpretation Code Description Data Teresa rce(s) Supporting Document(s) C reactive protein [Mass/volume] in Serum or Plasma 33.7 mg/L <8.0 Above high normal [facility] ID Date Data Source [id number] 07/19/2019 09:12:26 AM EDT [facility] Name Value Range Interpretation Code Description Data Teresa rce(s) Supporting Document(s) Operative Note [facility] [id number] lbm [file] [id number] ID Date Data Source [id number] 07/18/2019 08:48:00 AM EDT [facility] FASTING:UNKNOWNFASTING: UNKNOWNReceived: 07/17/2019 at 13:32:00 SYR: [facility], [address], [place], [address], Juan Luis Pratt MD,PHD,KENNEDY Received: 07/17/2019 at 13:32:00 SYR : [facility], [address], [place], [address], Juan Luis Pratt MD,PHD,KENNEDY Received: 07/17/2019 at 13:32:00 SYR : [facility], [address], [place], [address], Juan Luis Pratt MD,PHD,KENNEDY Received: 07/17/2019 at 13:32:00 SYR : [facility], [address], [place], [address], Juan Luis Pratt MD,PHD,KENNEDY Received: 07/17/2019 at 13:32:00 QPT : [facility], [address], [address] [place], [address], Oleg Fuentes MD Name Value Range Interpretation Code Description Data Teresa rce(s) Supporting Document(s) Glucose [Mass/volume] in Serum or Plasma 77 mg/dL 65-99 Normal (applies to non- numeric results) [facility] Fasting reference interval Urea nitrogen [Mass/volume] in Serum or Plasma 12 mg/dL 7 -25 Normal (applies to non-numeric results) [facility] Creatinine [Mass/volume] in Serum or Plasma 1.03 mg/dL 0.50 -1.10 Normal (applies to non-numeric results) [facility] Glomerular filtration rate/1.73 sq M.pre dicted [Volume Rate/Area] in Serum, Plasma or Blood by Creatinine-based formula (MDRD) 64 mL/min/1.73m2 > OR = 60 Normal (applies to non-numeric results) [facility] Glomerular filtration rate/1.73 sq M pre dicted among blacks [Volume Rate/Area] in Serum or Plasma by Creatinine-based formula (MDRD) 74 mL/min/1.73m2 > OR = 60 Normal (applies to non-numeric results) [facility] Urea nitrogen/Creatinine [Mass Ratio] in Serum or Plasma NOT APPLICABLE (calc) 6-22 [facility] Sodium [Moles/volume] in Serum or Plasma 136 mmol/L 135-146 Normal (applies to non-numeric results) [facility] Potassium [Moles/volume] in Serum or Plasma 4.8 mmol/L 3.5- 5.3 Normal (applies to non-numeric results) [facility] Chloride [Moles/volume] in Serum or Plasma 103 mmol/L 98-11 0 Normal (applies to non-numeric results) [facility] Carbon dioxide, total [Moles/volume] in Serum or Plasma 27 mmol/ L 20-32 Normal (applies to non-numeric results) [facility] Calcium [Mass/volume] in Serum or Plasma 8.9 mg/dL 8.6-10. 2 Normal (applies to non-numeric results) [facility] Protein [Mass/volume] in Serum or Plasma 6.7 g/dL 6.1-8.1 Normal (applies to non-numeric results) [facility] Albumin [Mass/volume] in Serum or Plasma 3.2 g/dL 3.6-5.1 Below low normal [facility] Globulin [Mass/volume] in Serum by calculation 3.5 g/dL (calc) 1 .9-3.7 Normal (applies to non-numeric results) [facility] Albumin/Globulin [Mass Ratio] in Serum or Plasma 0.9 (calc) 1.0-2.5 Below low normal [facility] Bilirubin.total [Mass/volume] in Serum or Plasma 0.2 mg/dL 0.2-1.2 Normal (applies to non-numeric results) [facility] Alkaline phosphatase [Enzymatic activity/volume] in Serum or Plasma 124 U/L 31-125 Normal (applies to non-numeric results) [facility] Aspartate aminotransferase [Enzymatic activity/volume] in Serum or Plasma 71 U/L 10-35 Above high normal [facility] Alanine aminotransferase [Enzymatic activity/volume] in Seru m or Plasma 41 U/L 6-29 Above high normal [facility] ID Date Data Source [id number] 07/18/2019 08:48:00 AM EDT [facility] FASTING:UNKNOWNFASTING: UNKNOWNReceived: 07/17/2019 at 13:32:00 SYR: [facility], [address], [place], [address], Juan Luis Pratt MD,PHD,KENNEDY Received: 07/17/2019 at 13:32:00 SYR : [facility], [address], [place], [address], Juan Luis Pratt MD,PHD,KENNEDY Received: 07/17/2019 at 13:32:00 SYR : [facility], [address], [place], [address], Juan Luis Pratt MD,PHD,KENNEDY Received: 07/17/2019 at 13:32:00 SYR : [facility], [address], [place], [address], Juan Luis Pratt MD,PHD,KENNEDY Received: 07/17/2019 at 13:32:00 QPT : [facility], [address], [address] [place], [address], Oleg Fuentes MD Name Value Range Interpretation Code Description Data Teresa rce(s) Supporting Document(s) Creatine kinase [Enzymatic activity/volume] in Serum or Plasma 2 885 U/L 29-143 Above high normal [facility] Verified by repeat analysis. ID Date Data Source [id number] 07/18/2019 08:48:00 AM EDT [facility] FASTING:UNKNOWNFASTING: UNKNOWNReceived: 07/17/2019 at 13:32:00 SYR: [facility], [address], [place], [address], Juan Luis Pratt MD,PHD,KENNEDY Received: 07/17/2019 at 13:32:00 SYR : [facility], [address], [place], [address], Juan Luis Pratt MD,PHD,KENNEDY Received: 07/17/2019 at 13:32:00 SYR : [facility], [address], [place], [address], Juan Luis Pratt MD,PHD,KENNEDY Received: 07/17/2019 at 13:32:00 SYR : [facility], [address], [place], [address], Juan Luis Pratt MD,PHD,KENNEDY Received: 07/17/2019 at 13:32:00 QPT : [facility], [address], [address] [place], [address], Oleg Fuentes MD Name Value Range Interpretation Code Description Data Teresa rce(s) Supporting Document(s) Erythrocyte sedimentation rate by Westergren method 68 mm/h < OR = 20 Above high normal [facility] ID Date Data Source [id number] 07/18/2019 08:48:00 AM EDT [facility] FASTING:UNKNOWNFASTING: UNKNOWNReceived: 07/17/2019 at 13:32:00 SYR: [facility], [address], [place], [address], Juan Luis Pratt MD,PHD,KENNEDY Received: 07/17/2019 at 13:32:00 SYR : [facility], [address], [place], [address], Juan Luis Pratt MD,PHD,KENNEDY Received: 07/17/2019 at 13:32:00 SYR : [facility], [address], [place], [address], Juan Luis Pratt MD,PHD,KENNEDY Received: 07/17/2019 at 13:32:00 SYR : [facility], [address], [place], [address], Juan Luis Pratt MD,PHD,KENNEDY Received: 07/17/2019 at 13:32:00 QPT : [facility], [address] , [address] [place] [address], [address], Oleg Fuentes MD Name Value Range Interpretation Code Description Data Teresa rce(s) Supporting Document(s) Leukocytes [#/volume] in Blood by Automated count 9.6 Thousand/u L 3.8-10.8 Normal (applies to non-numeric results) [facility] Erythrocytes [#/volume] in Blood by Automated count 3.87 Million /uL 3.80-5.10 Normal (applies to non-numeric results) [facility] Hemoglobin [Mass/volume] in Blood 10.5 g/dL 11.7-15.5 Below low nor mal [facility] Hematocrit [Volume Fraction] of Blood by Automated count 31.6 % 35.0-45.0 Below low normal [facility] Erythrocyte mean corpuscular volume [Entitic volume] by Auto mated count 81.7 fL 80.0-100.0 Normal (applies to non-numeric results) [facility] Erythrocyte mean corpuscular hemoglobin [Entitic mass] by Automated count 27.1 pg 27.0-33.0 Normal (applies to non-numeric results) [facility] Erythrocyte mean corpuscular hemoglobin concentration [Mass/volume] by Automated count 33.2 g/dL 32.0-36.0 Normal (applies to non-numeric results) [facility] Erythrocyte distribution width [Ratio] by Automated count 18.0 % 11.0-15.0 Above high normal [facility] Platelets [#/volume] in Blood by Automated count 373 Thousand/uL 140-400 Normal (applies to non-numeric results) [facility] Platelet mean volume [Entitic volume] in Blood by Chas 8.8 fL 7.5-12.5 Normal (applies to non-numeric results) [facility] Neutrophils [#/volume] in Blood by Automated count 5770 cells/uL 2761-8786 Normal (applies to non-numeric results) [facility] Lymphocytes [#/volume] in Blood by Automated count 2102 cells/uL 850-3900 Normal (applies to non-numeric results) [facility] Monocytes [#/volume] in Blood by Automated count 662 cells/uL 200-950 Normal (applies to non-numeric results) [facility] Eosinophils [#/volume] in Blood by Automated count 998 cells/uL 15-500 Above high normal [facility] Basophils [#/volume] in Blood by Automated count 67 cells/uL 0-200 Normal (applies to non-numeric results) [facility] Neutrophils/100 leukocytes in Blood by Automated count 60.1 % 38-80 Normal (applies to non-numeric results) [facility] Lymphocytes/100 leukocytes in Blood by Automated count 21.9 % 15-49 Normal (applies to non-numeric results) [facility] Monocytes/100 leukocytes in Blood by Automated count 6.9 % 0-13 Normal (applies to non-numeric results) [facility] Eosinophils/100 leukocytes in Blood by Automated count 10.4 % 0-8 Above high normal [facility] Basophils/100 leukocytes in Blood by Automated count 0.7 % 0-2 Normal (applies to non-numeric results) [facility] ID Date Data Source [id number] 07/18/2019 08:48:00 AM EDT [facility] FASTING:UNKNOWNFASTING: UNKNOWNReceived: 07/17/2019 at 13:32:00 SYR: [facility], [address], [place], [address], Juan Luis Pratt MD,PHD,KENNEDY Received: 07/17/2019 at 13:32:00 SYR : [facility], [address], [place], [address], Juan Luis Pratt MD,PHD,KENNEDY Received: 07/17/2019 at 13:32:00 SYR : [facility], [address], [place], [address], Juan Luis Pratt MD,PHD,KENNEDY Received: 07/17/2019 at 13:32:00 SYR : [facility], [address], [place], [address], Juan Luis Pratt MD,PHD,KENNEDY Received: 07/17/2019 at 13:32:00 QPT : [facility], [address], [address] [place], [address], Oleg Fuentes MD Name Value Range Interpretation Code Description Data Teresa rce(s) Supporting Document(s) C reactive protein [Mass/volume] in Serum or Plasma 56.5 mg/L <8.0 Above high normal [facility] ID Date Data Source [id number] 07/14/2019 12:00:00 AM EDT [facility] Name Value Range Interpretation Code Description Data Teresa rce(s) Supporting Document(s) 2019-nCoV N XXX Ql DAVE N2 [facility] [place] This lab was ordered by [facility] and reported by [facility]. ID Date Data Source [id number] 07/11/2019 09:28:00 AM EDT [facility] FASTING:UNKNOWNFASTING: UNKNOWNReceived: 07/10/2019 at 14:27:00 SYR: [facility], [address], [place], [address], Juan Luis Pratt MD,PHD,KENNEDY Received: 07/10/2019 at 14:27:00 SYR : [facility], [address], [place], [address], Juan Luis Pratt MD,PHD,KENNEDY Received: 07/10/2019 at 14:27:00 SYR : [facility], [address], [place], [address], Juan Luis Pratt MD,PHD,KENNEDY Received: 07/10/2019 at 14:27:00 SYR : [facility], [address], [place], [address], Juan Luis Pratt MD,PHD,KENNEDY Received: 07/10/2019 at 14:27:00 QPT : [facility], [address], [address] [facility], [place], [address], Oleg Fuentes MD Name Value Range Interpretation Code Description Data Teresa rce(s) Supporting Document(s) Glucose [Mass/volume] in Serum or Plasma 104 mg/dL 65-99 Above high normal [facility] Fasting reference intervalFor someone without known diabetes, a glucose valuebetween 100 and 125 mg/dL is consistent withprediabetes and should be confirmed with afollow-up test. Urea nitrogen [Mass/volume] in Serum or Plasma 13 mg/dL 7 -25 Normal (applies to non-numeric results) [facility] Creatinine [Mass/volume] in Serum or Plasma 0.94 mg/dL 0.50 -1.10 Normal (applies to non-numeric results) [facility] Glomerular filtration rate/1.73 sq M.pre dicted [Volume Rate/Area] in Serum, Plasma or Blood by Creatinine-based formula (MDRD) 72 mL/min/1.73m2 > OR = 60 Normal (applies to non-numeric results) [facility] Glomerular filtration rate/1.73 sq M pre dicted among blacks [Volume Rate/Area] in Serum or Plasma by Creatinine-based formula (MDRD) 83 mL/min/1.73m2 > OR = 60 Normal (applies to non-numeric results) [facility] Urea nitrogen/Creatinine [Mass Ratio] in Serum or Plasma NOT APPLICABLE (calc) 6-22 [facility] Sodium [Moles/volume] in Serum or Plasma 136 mmol/L 135-146 Normal (applies to non-numeric results) [facility] Potassium [Moles/volume] in Serum or Plasma 4.1 mmol/L 3.5- 5.3 Normal (applies to non-numeric results) [facility] Chloride [Moles/volume] in Serum or Plasma 101 mmol/L 98-11 0 Normal (applies to non-numeric results) [facility] Carbon dioxide, total [Moles/volume] in Serum or Plasma 26 mmol/ L 20-32 Normal (applies to non-numeric results) [facility] Calcium [Mass/volume] in Serum or Plasma 9.2 mg/dL 8.6-10. 2 Normal (applies to non-numeric results) [facility] Protein [Mass/volume] in Serum or Plasma 7.0 g/dL 6.1-8.1 Normal (applies to non-numeric results) [facility] Albumin [Mass/volume] in Serum or Plasma 3.3 g/dL 3.6-5.1 Below low normal [facility] Globulin [Mass/volume] in Serum by calculation 3.7 g/dL (calc) 1 .9-3.7 Normal (applies to non-numeric results) [facility] Albumin/Globulin [Mass Ratio] in Serum or Plasma 0.9 (calc) 1.0-2.5 Below low normal [facility] Bilirubin.total [Mass/volume] in Serum or Plasma 0.2 mg/dL 0.2-1.2 Normal (applies to non-numeric results) [facility] Alkaline phosphatase [Enzymatic activity/volume] in Serum or Plasma 139 U/L 31-125 Above high normal [facility] Aspartate aminotransferase [Enzymatic activity/volume] in Serum or Plasma 59 U/L 10-35 Above high normal [facility] Alanine aminotransferase [Enzymatic activity/volume] in Seru m or Plasma 37 U/L 6-29 Above high normal [facility] ID Date Data Source [id number] 07/11/2019 09:28:00 AM EDT [facility] FASTING:UNKNOWNFASTING: UNKNOWNReceived: 07/10/2019 at 14:27:00 SYR: [facility], [address], [place], [address], Juan Luis Pratt MD,PHD,KENNEDY Received: 07/10/2019 at 14:27:00 SYR : [facility], [address], [place], [address], Juan Luis Pratt MD,PHD,KENNEDY Received: 07/10/2019 at 14:27:00 SYR : [facility], [address], [place], [address], Juan Luis Pratt MD,PHD,KENNEDY Received: 07/10/2019 at 14:27:00 SYR : [facility], [address], [place], [address], Juan Luis Pratt MD,PHD,KENNEDY Received: 07/10/2019 at 14:27:00 QPT : [facility], [address], [address] [place] [address], [address], Oleg Fuentes MD Name Value Range Interpretation Code Description Data Teresa rce(s) Supporting Document(s) Creatine kinase [Enzymatic activity/volume] in Serum or Plasma 2 149 U/L 29-143 Above high normal [facility] Verified by repeat analysis. ID Date Data Source [id number] 07/11/2019 09:28:00 AM EDT [facility] FASTING:UNKNOWNFASTING: UNKNOWNReceived: 07/10/2019 at 14:27:00 SYR: [facility], [address], [place], [address], Juan Luis Pratt MD,PHD,KENNEDY Received: 07/10/2019 at 14:27:00 SYR : [facility], [address], [place], [address], Juan Luis Pratt MD,PHD,KENNEDY Received: 07/10/2019 at 14:27:00 SYR : [facility], [address], [place], [address], Juan Luis Pratt MD,PHD,KENNEDY Received: 07/10/2019 at 14:27:00 SYR : [facility], [address], [place], [address], Juan Luis Pratt MD,PHD,KENNEDY Received: 07/10/2019 at 14:27:00 QPT : [facility], [address], [address] [place], [address], Oleg Fuentes MD Name Value Range Interpretation Code Description Data Teresa rce(s) Supporting Document(s) Erythrocyte sedimentation rate by Westergren method 107 mm/h < OR = 20 Above high normal [facility] ID Date Data Source [id number] 07/11/2019 09:28:00 AM EDT [facility] FASTING:UNKNOWNFASTING: UNKNOWNReceived: 07/10/2019 at 14:27:00 SYR: [facility], [address], [place], [address], Juan Luis Pratt MD,PHD,KENNEDY Received: 07/10/2019 at 14:27:00 SYR : [facility], [address], [place], [address], Juan Luis Pratt MD,PHD,KENNEDY Received: 07/10/2019 at 14:27:00 SYR : [facility], [address], [place], [address], Juan Luis Pratt MD,PHD,KENNEDY Received: 07/10/2019 at 14:27:00 SYR : [facility], [address], [place], [address], Juan Luis Pratt MD,PHD,KENNEDY Received: 07/10/2019 at 14:27:00 QPT : [facility], [address] [facility], [address] [place], [address], Oleg Fuentes MD Name Value Range Interpretation Code Description Data Teresa rce(s) Supporting Document(s) Leukocytes [#/volume] in Blood by Automated count 10.8 Thousand/ uL 3.8-10.8 Normal (applies to non-numeric results) [facility] Review of peripheral smear confirmsautom ated results. Erythrocytes [#/volume] in Blood by Automated count 3.18 Million /uL 3.80-5.10 Below low normal [facility] Hemoglobin [Mass/volume] in Blood 8.5 g/dL 11.7-15.5 Below low nor mal [facility] Hematocrit [Volume Fraction] of Blood by Automated count 25.7 % 35.0-45.0 Below low normal [facility] Erythrocyte mean corpuscular volume [Entitic volume] by Auto mated count 80.8 fL 80.0-100.0 Normal (applies to non-numeric results) [facility] Erythrocyte mean corpuscular hemoglobin [Entitic mass] by Automated count 26.7 pg 27.0-33.0 Below low normal [facility] Erythrocyte mean corpuscular hemoglobin concentration [Mass/volume] by Automated count 33.1 g/dL 32.0-36.0 Normal (applies to non-numeric results) [facility] Erythrocyte distribution width [Ratio] by Automated count 17.9 % 11.0-15.0 Above high normal [facility] Platelets [#/volume] in Blood by Automated count 569 Thousand/uL 140-400 Above high normal [facility] Platelet mean volume [Entitic volume] in Blood by Lisandro-Frank 8.7 fL 7.5-12.5 Normal (applies to non-numeric results) [facility] Neutrophils [#/volume] in Blood by Automated count 6426 cells/uL 1261-7359 Normal (applies to non-numeric results) [facility] Lymphocytes [#/volume] in Blood by Automated count 2776 cells/uL 850-3900 Normal (applies to non-numeric results) [facility] Monocytes [#/volume] in Blood by Automated count 864 cells/uL 200-950 Normal (applies to non-numeric results) [facility] Eosinophils [#/volume] in Blood by Automated count 680 cells/uL 15-500 Above high normal [facility] Basophils [#/volume] in Blood by Automated count 54 cells/uL 0-200 Normal (applies to non-numeric results) [facility] Neutrophils/100 leukocytes in Blood by Automated count 59.5 % 38-80 Normal (applies to non-numeric results) [facility] Lymphocytes/100 leukocytes in Blood by Automated count 25.7 % 15-49 Normal (applies to non-numeric results) [facility] Monocytes/100 leukocytes in Blood by Automated count 8.0 % 0-13 Normal (applies to non-numeric results) [facility] Eosinophils/100 leukocytes in Blood by Automated count 6.3 % 0-8 Normal (applies to non-numeric results) [facility] Basophils/100 leukocytes in Blood by Automated count 0.5 % 0-2 Normal (applies to non-numeric results) [facility] ID Date Data Source [id number] 07/11/2019 09:28:00 AM EDT [facility] FASTING:UNKNOWNFASTING: UNKNOWNReceived: 07/10/2019 at 14:27:00 SYR: [facility], [address], [place], [address], Juan Luis Pratt MD,PHD,KENNEDY Received: 07/10/2019 at 14:27:00 SYR : [facility], [address], [place], [address], Juan Luis Pratt MD,PHD,KENNEDY Received: 07/10/2019 at 14:27:00 SYR : [facility], [address], [place], [address], Juan Luis Pratt MD,PHD,KENNEDY Received: 07/10/2019 at 14:27:00 SYR : [facility], [address], [place], [address], Juan Luis Pratt MD,PHD,KENNEDY Received: 07/10/2019 at 14:27:00 QPT : [facility], [address], [address] [place], [address], Oleg Fuentes MD Name Value Range Interpretation Code Description Data Teresa rce(s) Supporting Document(s) C reactive protein [Mass/volume] in Serum or Plasma 47.2 mg/L <8.0 Above high normal [facility] ID Date Data Source [id number] 07/07/2019 08:31:19 AM EDT [facility] Name Value Range Interpretation Code Description Data Teresa rce(s) Supporting Document(s) Discharge Summary [facility] [id number]/OGIczWZKcx1PoACrxQOx5TXypWHIqX6ZfUAM4rQ5gYCA8DYnWFsSqMvMwWYNt lbm [file] AgICAgICAgICAgICAgICAgICAgICAgICAgICAgICAgICAgICAgICAgICAgICAgICAgICAgICAgICAgIC AgICAgICAgICAgICAgICAgICANCiAgICAgICAgICAgICAgICAgICAgICAgICAgICAgICAgICAgICAgIC AgICAgICAgICAgICAgICAgICAgICAgICAgICAgICAg ICAgICAgICAgICAgICAgICAgICAgICAgICAgICANCiAgICAgICAgICAgICAgICAgICAgICAgICAgICAg ICAgICAgICAgICAgICAgICAgICAgICAgICAgICAgICAgICAgICAgICAgICAgICAgICAgICAgICAgICAg ICAgICAgICAgICANCiAgICAgICAgICAgICAgICAgIC AgICAgICAgICAgICAgICAgICAgICAgICAgICAgICAgICAgICAgICAgICAgICAgICAgICAgICAgICAgIC AgICAgICAgICAgICAgICAgICAgICANCiAgICAgICAgICAgICAgICAgICAgICAgICAgICAgICAgICAgIC AgICAgICAgICAgICAgICAgICAgICAgICAgICAgICAg ICAgICAgICAgICAgICAgICAgICAgICAgICAgICAgICANCiAgICAgICAgICAgICAgICAgICAgICAgICAg ICAgICAgICAgICAgICAgICAgICAgICAgICAgICAgICAgICAgICAgICAgICAgICAgICAgICAgICAgICAg ICAgICAgICAgICAgICANCiAgICAgICAgICAgICAgIC AgICAgICAgICAgICAgICAgICAgICAgICAgICAgICAgICAgICAgICAgICAgICAgICAgICAgICAgICAgIC AgICAgICAgICAgICAgICAgICAgICAgICANCiAgICAgICAgICAgICAgICAgICAgICAgICAgICAgICAgIC AgICAgICAgICAgICAgICAgICAgICAgICAgICAgICAg ICAgICAgICAgICAgICAgICAgICAgICAgICAgICAgICAgICANCiAgICAgICAgICAgICAgICAgICAgICAg ICAgICAgICAgICAgICAgICAgICAgICAgICAgICAgICAgICAgICAgICAgICAgICAgICAgICAgICAgICAg ICAgICAgICAgICAgICAgICANCiAgICAgICAgICAgIC AgICAgICAgICAgICAgICAgICAgICAgICAgICAgICAgICAgICAgICAgICAgICAgICAgICAgICAgICAgIC AgICAgICAgICAgICAgICAgICAgICAgICAgICANCjw/mZNsW2mslKGvzjD3D3ufJr6JJp5WEW6sr3DnGJ RmGVsizrYrXaiTZrKlNDZcYnzTCnd0QLduMQ5BqXTw H9AbH1CgHQgsBD1MSWPeHZWorLUhHQDvMNSuGoR1GUEzJEqgKM1XlHPuAQzqYVMlOCMrWmIyDVTjHSQd XUItPXIzVYROXXXdEKMwVjKtJLmxYT1St0FnkSM3FIs+Ld2JDR8ya6BdIQzhMAYmEU8qwb8QDTbVXfJa Q9GuvoA5KQSeFXIzFg1BBUTlVEPtnVBcKoObQHZLXr UlK7OyoP31LNFCPf4+NZdytrOkFujFRqTaTPRfa3RmDRw8PG1QVVQkOSd8tVReMYihG4mhbwmbWVI9mP 9pwmkbYlfqLylbUF9oNT6kF4diIRrbGKBEToBpfTV6OnS9XiUiMdAzAZC6ZSKqQM4hKWfkAA7UCVG7IJ ngNZSnVADlX1nKTsGrOYAfNhGzoJanOT9GApEpR7Np cmVudCAzMSAwIFINCj4+KAzkvxDcBksWVpIpTNGnz8TgBAx2DH2HIOMfTGgaQS6RHORerZ7lOXxsSS3F VfVbPLXuXJACFdJaV97oeVZhGTl1S0ZiLnQxJPXjCylzEKQlEJygRrZaAUQhVcWhTNtiZC4+ID4+DQog RW9ESSebvkXeIBJnIt0SXCVzJIHrLM0cIPVwJAIsS6 U6qPuoDUYELvWpT3tyworvVL7mYDDgR032oKqmwwDbAAMqVYZqFr8AHSGtAIN7MDAodGTcMfVvEONBMD boWU3JuTXwORK5rK2nXJecQCQwMMSlR1hGEvDuwFgmXE04bTokykZuwZDrNGs+Rv2PYE4gs9JiNEs3qh CzVShmZPT0RTunUIRqSHCwHQTqSZE6ETK2DWSCUpYs KHUwHEEdSPmrFQHwQIJcrx4MFVRuZOYyMdz4WNPqYKNnFBFiXLblEQKmLUX9MuL9WBEgTDJxFK1IBqRl EZEaTBHxWEdrCQWeOGDbdf4VSIFrWLUpKKR1EuDdTPCiPNHjGHzgBXBgQQN6FevcPHCsBMZdTK1HGyBt WELcEYk4BpXeYXAvUJBjqn0UBUBnYDZzEGD3HNWgQJ KtLUYiAHzwWOFyZQHjTVnaFZSxIETyYH7QUuLoHWLsLMT1QNJoGDFqKEAqwp9MBQShNEOeAAL7NFOlLO WnCDGuJXyhRKKuXJR8Hoo5QCQvJVMzKX6ZDbHjOFBoZOZ6UHdeZAPzEXSmku9AYYWpVERjCfEmKJTwCA FoAQZwUUrmSWZmLJD7IEC1FNYpFGBkOB9JCnFqQIIl QEvbUaRlIYLnSQYdxu3XTRNfBOYbJWS8JBBqKFXzMLCqYXwxFNTkPTM8GFJbZUQnSBKgNR3HQgHtHZUv WIk1UBJtFWWlSFXvsr4MISSgZUPzLQa1YfZmMYNvVJPyYGivOWTwPVBdAORzYQUrOGYlKN9PMiSxBPLp XcLtVLKjXNRyLFYkvr6RAXGnMVSyNHK5MfSfKLUeDE QcZOhxDAEjVXDmYiUuFARzYJSmQZ2WEbBlVUUuInOoTHrbDVSnHELnie3NDSSfPJDsPdQ4QuRaSXSpVC DgMDusRBJnXMBeEZXeNVXvVWGsCP3CTyVhZFSaDrF0VZWvVFVdZGLiax4YFAKmDRYrCmwhGaVzYPMjQQ GfOYmuPAYyZWB1Bor0OPZdUKWoDC6RGfFfOTDnXdV5 OYzaYSZoHFMevc9ACJTvKIOkWYjfHVFaBPQnHWKkVUsdZQZsNEF7GJveWZVdBDGrWZ6ABwJkVFfqXVQG Tov1QUmiP7g5XYIaQB1JT0Yyw5KkKdSuUJSZKWndAK4lslCgPEPpTc0UM4lOWee8KZuyCDWsLFbwDMW0 CHF7BgW7QvE9BWGwY5MlLWFwCr0iQACyChY3ZnHdGR V4VfPnDilaBKi7UxUwBYYeJHY3TnKjAyXnVC5SEz8KBvO1EFN7lVGoJn8MEvPvLreCXoCjZK9MTAz= ID Date Data Source [id number] 07/03/2019 05:18:29 PM EDT [facility] Name Value Range Interpretation Code Description Data Teresa rce(s) Supporting Document(s) Hepatitis C virus Ab [Presence] in Serum or Plasma by Immuno assay Non Reactive A [facility] Past or current Hepatitis C infection. S jazminen forwarded to reference laboratory for quantitative HCV RNA testing. ID Date Data Source [id number] [facility] Name Value Range Interpretation Code Description Data Teresa rce(s) Supporting Document(s) [facility] [id number]/LJPliVIEix9IuQIzhCHc7GRgnJGXaH3ErAQZ2kD7cJIS6USjNBfSwMoEkWOS7 [facility] [file] [id number]== ID Date Data Source [id number] 07/03/2019 03:43:49 AM EDT [facility] Name Value Range Interpretation Code Description Data Teresa rce(s) Supporting Document(s) Leukocytes [#/volume] in Blood by Automated count 7.3 10*3/uL 4-10 [facility] Erythrocytes [#/volume] in Blood by Automated count 2.63 10*6/uL 4.1- 5.3 L [facility] Hemoglobin [Mass/volume] in Blood 7.0 g/dL 11.5-15.5 [facility] Hematocrit [Volume Fraction] of Blood by Automated count 21.0 % 3 6-45 L [facility] Erythrocyte mean corpuscular volume [Entitic volume] by Auto mated count 80.0 fL 80-96 [facility] Erythrocyte mean corpuscular hemoglobin [Entitic mass] by Automated count 26.7 pg 27-33 L [facility] Erythrocyte mean corpuscular hemoglobin concentration [Mass/volume] by Automated count 33.3 g/dL 32.0-36.0 [facility] width [Ratio] by Automated count 18.7 % 11.5-14.5 H [facility] Platelets [#/volume] in Blood by Automated count 378 10*3/uL 150-400 [facility] Differential cell count method - Blood [facility] Neutrophils/100 leukocytes in Blood by Automated count 59 % [facility] Lymphocytes/100 leukocytes in Blood by Automated count 31 % [facility] Monocytes/100 leukocytes in Blood by Automated count 6 % [facility] Eosinophils/100 leukocytes in Blood by Automated count 4 % [facility] Basophils/100 leukocytes in Blood by Automated count 0 % [facility] Neutrophils [#/volume] in Blood by Automated count 4.36 10*3/uL 1.8-7 .0 [facility] Lymphocytes [#/volume] in Blood by Automated count 2.22 10*3/uL 1.2-4 .0 [facility] Monocytes [#/volume] in Blood by Automated count 0.45 10*3/uL 0-0.8 [facility] Eosinophils [#/volume] in Blood by Automated count 0.25 10*3/uL 0-0.5 [facility] Basophils [#/volume] in Blood by Automated count 0.01 10*3/uL 0-0.2 [facility] Nucleated erythrocytes/100 leukocytes [Ratio] in Blood by Automated count 0 /100{WBCs} 0-0 [facility] ID Date Data Source [id number] 07/03/2019 04:02:44 AM [facility] Name Value Range Interpretation Code Description Data Teresa rce(s) Supporting Document(s) Bicarbonate [Moles/volume] in Serum 27 mmol/L 22-29 [facility] Chloride [Moles/volume] in Serum or Plasma 104 mmol/L 98-107 [facility] Creatinine [Mass/volume] in Serum or Plasma 0.87 mg/dL 0.50-0.90 [facility] Glucose [Mass/volume] in Serum or Plasma 96 mg/dL 70-140 [facility] Potassium [Moles/volume] in Serum or Plasma 4.5 mmol/L 3.4-5.1 [facility] Sodium [Moles/volume] in Serum or Plasma 138 mmol/L 136-145 [facility] Urea nitrogen [Mass/volume] in Serum or Plasma 5 mg/dL 6-20 L [facility] Anion gap 3 in Serum or Plasma 8 mmol/L 8-15 [facility] Osmolality of Serum or Plasma by calculation 283 mosm/kg 275-300 [facility] Creatinine/Urea nitrogen [Mass Ratio] in Serum or Plasma 6 [facility] Calcium [Mass/volume] in Serum or Plasma 8.8 mg/dL 8.6-10.0 [facility] Glomerular filtration rate/1.73 sq M pre dicted among non-blacks [Volume Rate/Area] in Serum or Plasma by Creatinine-based formula (MDRD) 78 mL/min/1.73m2 >60 [facility] Glomerular filtration rate/1.73 sq M pre dicted among blacks [Volume Rate/Area] in Serum or Plasma by Creatinine-based formula (MDRD) >60 [facility] ID Date Data Source [id number] 07/03/2019 02:28:38 PM [facility] Name Value Range Interpretation Code Description Data Teresa rce(s) Supporting Document(s) Albumin [Mass/volume] in Serum or Plasma by Bromocresol green (BCG) dye binding method 2.7 g/dL 3.5-5.2 [facility] Bilirubin.total [Mass/volume] in Serum or Plasma <1.2 [facility] Bilirubin.direct [Mass/volume] in Serum or Plasma <0.3 [facility] Alkaline phosphatase [Enzymatic activity/volume] in Serum or Plasma 193 U/L 35-104 H [facility] Aspartate aminotransferase [Enzymatic activity/volume] in Serum or Plasma 420 U/L <32 H [facility] Alanine aminotransferase [Enzymatic activity/volume] in Seru m or Plasma 136 U/L <33 H [facility] Protein [Mass/volume] in Serum or Plasma 6.1 g/dL 6.4-8.3 L [facility] ID Date Data Source [id number] 07/03/2019 02:52:38 PM [facility] Value Range Interpretation Code Description Data Teresa rce(s) Supporting Document(s) Creatine kinase [Enzymatic activity/volume] in Serum or Plasma 1 2504 U/L 20-180 H [facility] Confirmed ID Date Data Source [id number] 07/02/2019 05:53:29 AM [facility] Value Range Interpretation Code Description Data Teresa rce(s) Supporting Document(s) Leukocytes [#/volume] in Blood by Automated count 6.3 10*3/uL 4-10 [facility] Erythrocytes [#/volume] in Blood by Automated count 2.65 10*6/uL 4.1- 5.3 [facility] Hemoglobin [Mass/volume] in Blood 7.0 g/dL 11.5-15.5 [facility] Hematocrit [Volume Fraction] of Blood by Automated count 21.3 % 3 6-45 [facility] Erythrocyte mean corpuscular volume [Entitic volume] by Auto mated count 80.5 fL 80-96 [facility] Erythrocyte mean corpuscular hemoglobin [Entitic mass] by Automated count 26.5 pg 27-33 [facility] Erythrocyte mean corpuscular hemoglobin concentration [Mass/volume] by Automated count 32.9 g/dL 32.0-36.0 [facility] E[facility]th[facility] distribution width [Ratio] by Automated count 18.2 % 11.5-14.5 [facility] Platelets [#/volume] in Blood by Automated count 278 10*3/uL 150-400 [facility] ID Date Data Source [id number] 07/02/2019 06:26:17 AM [facility] Value Range Interpretation Code Description Data Teresa rce(s) Supporting Document(s) Bicarbonate [Moles/volume] in Serum 26 mmol/L 22-29 [facility] Chloride [Moles/volume] in Serum or Plasma 105 mmol/L 98-107 [facility] Creatinine [Mass/volume] in Serum or Plasma 0.83 mg/dL 0.50-0.90 [facility] Glucose [Mass/volume] in Serum or Plasma 95 mg/dL 70-140 [facility] Potassium [Moles/volume] in Serum or Plasma 3.3 mmol/L 3.4-5.1 L [facility] Sodium [Moles/volume] in Serum or Plasma 140 mmol/L 136-145 [facility] Urea nitrogen [Mass/volume] in Serum or Plasma 6 mg/dL 6-20 [facility] Anion gap 3 in Serum or Plasma 9 mmol/L 8-15 [facility] Osmolality of Serum or Plasma by calculation 287 mosm/kg 275-300 [facility] Creatinine/Urea nitrogen [Mass Ratio] in Serum or Plasma 7 [facility] Calcium [Mass/volume] in Serum or Plasma 8.0 mg/dL 8.6-10.0 L [facility] Glomerular filtration rate/1.73 sq M pre dicted among non-blacks [Volume Rate/Area] in Serum or Plasma by Creatinine-based formula (MDRD) 82 mL/min/1.73m2 >60 [facility] Glomerular filtration rate/1.73 sq M pre dicted among blacks [Volume Rate/Area] in Serum or Plasma by Creatinine-based formula (MDRD) >60 [facility] ID Date Data Source [id number] 07/02/2019 11:07:28 AM [facility] Name Value Range Interpretation Code Description Data Teresa rce(s) Supporting Document(s) Magnesium [Mass/volume] in Serum or Plasma 2.0 mg/dL 1.6-2.6 [facility] ID Date Data Source [id number] 07/01/2019 11:22:45 AM [facility] Name Value Range Interpretation Code Description Data Teresa rce(s) Supporting Document(s) EKG [facility] [id number] jb2 [file] [id number]+[id number]== ID Date Data Source [id number] 07/01/2019 05:35:12 AM EDT [facility] Name Value Range Interpretation Code Description Data Teresa rce(s) Supporting Document(s) Leukocytes [#/volume] in Blood by Automated count 9.2 10*3/uL 4-10 [facility] Erythrocytes [#/volume] in Blood by Automated count 3.01 10*6/uL 4.1- 5.3 L [facility] Hemoglobin [Mass/volume] in Blood 8.1 g/dL 11.5-15.5 L [facility] Hematocrit [Volume Fraction] of Blood by Automated count 23.9 % 3 6-45 L [facility] Erythrocyte mean corpuscular volume [Entitic volume] by Auto mated count 79.6 fL 80-96 L [facility] Erythrocyte mean corpuscular hemoglobin [Entitic mass] by Automated count 26.8 pg 27-33 L [facility] Erythrocyte mean corpuscular hemoglobin concentration [Mass/volume] by Automated count 33.6 g/dL 32.0-36.0 [facility] distribution width [Ratio] by Automated count 18.3 % 11.5-14.5 H [facility] Platelets [#/volume] in Blood by Automated count 389 10*3/uL 150-400 [facility] ID Date Data Source [id number] 07/01/2019 05:55:09 AM [facility] Name Value Range Interpretation Code Description Data Teresa rce(s) Supporting Document(s) Bicarbonate [Moles/volume] in Serum 27 mmol/L 22-29 [facility] Chloride [Moles/volume] in Serum or Plasma 102 mmol/L 98-107 [facility] Creatinine [Mass/volume] in Serum or Plasma 0.72 mg/dL 0.50-0.90 [facility] Glucose [Mass/volume] in Serum or Plasma 101 mg/dL 70-140 [facility] Potassium [Moles/volume] in Serum or Plasma 3.7 mmol/L 3.4-5.1 [facility] Sodium [Moles/volume] in Serum or Plasma 138 mmol/L 136-145 [facility] Urea nitrogen [Mass/volume] in Serum or Plasma 5 mg/dL 6-20 L [facility] Anion gap 3 in Serum or Plasma 9 mmol/L 8-15 [facility] Osmolality of Serum or Plasma by calculation 282 mosm/kg 275-300 [facility] Creatinine/Urea nitrogen [Mass Ratio] in Serum or Plasma 7 [facility] Calcium [Mass/volume] in Serum or Plasma 8.3 mg/dL 8.6-10.0 L [facility] Glomerular filtration rate/1.73 sq M pre dicted among non-blacks [Volume Rate/Area] in Serum or Plasma by Creatinine-based formula (MDRD) >6 0 [facility] Glomerular filtration rate/1.73 sq M pre dicted among blacks [Volume Rate/Area] in Serum or Plasma by Creatinine-based formula (MDRD) >60 [facility] ID Date Data Source [id number] 06/30/2019 01:57:20 PM [facility] XR SPINE L-S 2-3 VIEWS PORT-OR [id number] L RESULTThis statement is intended for documentation purposes only.This exam was performed in the Operating Room by the Surgeon and a Radiologist was not present. Please refer to the Operative note in EPIC. Name Value Range Interpretation Code Description Data Teresa rce(s) Supporting Document(s) ID Date Data Source [id number] 08/25/2019 08:23:54 AM [facility] Service Cmnt XXX-Imp : DISC SPACE L3/4Ac id fast Stn XXX : No Acid fast bacilli seen on Fluorochrome stain.Swabs are suboptimal specimens for the isolation of most microorganism due to the small amount of material that is absorbed onto and released from the swab. Tissue, fluids, and aspirates are the preferred specimens for detection of microorganisms.Microorganism XXX Cult : No growth 56 days Name Value Range Interpretation Code Description Data Teresa rce(s) Supporting Document(s) ID Date Data Source [id number] 07/28/2019 09:32:48 AM [facility] Service Cmnt XXX-Imp : DISC SPACE L3/4Mi croorganism XXX Cult : No growth 28 days Name Value Range Interpretation Code Description Data Teresa rce(s) Supporting Document(s) ID Date Data Source [id number] 07/05/2019 12:01:58 PM [facility] Service Cmnt XXX-Imp : DISC SPACE L3/4Mi croorganism XXX Cult : No anaerobes isolated Name Value Range Interpretation Code Description Data Teresa rce(s) Supporting Document(s) ID Date Data Source [id number] 07/05/2019 10:30:55 AM [facility] Service Cmnt XXX-Imp : DISC SPACE L3/4Gr am Stn XXX : No WBC's or organisms seen.Microorganism XXX Cult : One (1) colony ofMethicillin resistant Staphylococcus aureus.Isolation precautions required-refer to Infection Control Manual. Name Value Range Interpretation Code Description Data Teresa rce(s) Supporting Document(s) ID Date Data Source [id number] 06/30/2019 04:53:19 AM [facility] Name Value Range Interpretation Code Description Data Teresa rce(s) Supporting Document(s) Leukocytes [#/volume] in Blood by Automated count 8.5 10*3/uL 4-10 [facility] Erythrocytes [#/volume] in Blood by Automated count 3.92 10*6/uL 4.1- 5.3 L [facility] Hemoglobin [Mass/volume] in Blood 10.4 g/dL 11.5-15.5 L [facility] Hematocrit [Volume Fraction] of Blood by Automated count 31.3 % 3 6-45 [facility] Erythrocyte mean corpuscular volume [Entitic volume] by Auto mated count 79.8 fL 80-96 [facility] Erythrocyte mean corpuscular hemoglobin [Entitic mass] by Automated count 26.6 pg 27-33 [facility] Erythrocyte mean corpuscular hemoglobin concentration [Mass/volume] by Autom[facility] 33.4 [facility].0[facility] width [Ratio] by Automated count 18.4 % 11.5-14.5 [facility] Platelets [#/volume] in Blood by Automated count 395 10*3/uL 150-400 [facility] Differential cell count method - Blood [facility] Neutrophils/100 leukocytes in Blood by Automated count 63 % [facility] Lymphocytes/100 leukocytes in Blood by Automated count 25 % [facility] Monocytes/100 leukocytes in Blood by Automated count 9 % [facility] Eosinophils/100 leukocytes in Blood by Automated count 2 % [facility] Basophils/100 leukocytes in Blood by Automated count 1 % [facility] Neutrophils [#/volume] in Blood by Automated count 5.35 10*3/uL 1.8-7 .0 [facility] Lymphocytes [#/volume] in Blood by Automated count 2.10 10*3/uL 1.2-4 .0 [facility] Monocytes [#/volume] in Blood by Automated count 0.75 10*3/uL 0-0.8 [facility] Eosinophils [#/volume] in Blood by Automated count 0.21 10*3/uL 0-0.5 [facility] Basophils [#/volume] in Blood by Automated count 0.05 10*3/uL 0-0.2 [facility] Nucleated erythrocytes/100 leukocytes [Ratio] in Blood by Automated count 0 /100{WBCs} 0-0 [facility] ID Date Data Source [id number] 06/30/2019 05:00:39 AM [facility] Value Range Interpretation Code Description Data Teresa rce(s) Supporting Document(s) Prothrombin time (PT) 14.9 s 12.5-14.9 [facility] INR in Platelet poor plasma by Coagulation assay 1.15 [facility] Routine intensity oral anticoagulation I NR is typically 2.0-3.0. Target INR must be clinically individualized. ID Date Data Source [id number] 06/30/2019 05:15:49 AM [facility] Value Range Interpretation Code Description Data Teresa rce(s) Supporting Document(s) Bicarbonate [Moles/volume] in Serum 25 mmol/L 22-29 [facility] Chloride [Moles/volume] in Serum or Plasma 102 mmol/L 98-107 [facility] Creatinine [Mass/volume] in Serum or Plasma 0.92 mg/dL 0.50-0.90 [facility] Glucose [Mass/volume] in Serum or Plasma 98 mg/dL 70-140 [facility] Potassium [Moles/volume] in Serum or Plasma 3.8 mmol/L 3.4-5.1 [facility] Sodium [Moles/volume] in Serum or Plasma 138 mmol/L 136-145 [facility] Urea nitrogen [Mass/volume] in Serum or Plasma 11 mg/dL 6-20 [facility] Anion gap 3 in Serum or Plasma 11 mmol/L 8-15 [facility] Osmolality of Serum or Plasma by calculation 285 mosm/kg 275-300 [facility] Creatinine/Urea nitrogen [Mass Ratio] in Serum or Plasma 12 [facility] Calcium [Mass/volume] in Serum or Plasma 9.2 mg/dL 8.6-10.0 [facility] Glomerular filtration rate/1.73 sq M pre dicted among non-blacks [Volume Rate/Area] in Serum or Plasma by Creatinine-based formula (MDRD) 73 mL/min/1.73m2 >60 [facility] Glomerular filtration rate/1.73 sq M pre dicted among blacks [Volume Rate/Area] in Serum or Plasma by Creatinine-based formula (MDRD) 84 mL/min/1.73m2 >60 [facility] ID Date Data Source [id number] 06/29/2019 03:23:29 PM EDT [facility] Name Value Range Interpretation Code Description Data Teresa rce(s) Supporting Document(s) History and Physical [facility] RXONJn9hIkDAFcHv60/XAWmhDIDao2HqZLgpHUv1XZviQDYzF8YwLMD6gG5zWUJ0ELcRZdVkReFrOYOd [facility] ErKbrGHgLdZWAxOwvWDvTwNRheHgxqnLEkTW2HoVE3RHKdL69bYAIdEBVsU7QlZBNvLqy+Lh4ZXOKkuM FrXA0FFkqF5K4yr3w76wnS1h9QUUQ7kMUuvdrevcI8vhMt8Lwn6fVLvklX1mxqRbjuj+U0vl/Kd6gB0C nx3sW1Wd7z8WlQfMToPs82abJPiVooBqhoHEkfXNXp 4imSFZo1DA//B3kqj4C5vX5HCUPuIVHfddoX8ZcPg0/m8GPON0knpfVcP+wmsBqbkK7Pgefs192V6+Us He4wK6rnfLCDl2cT6jrbntise8hwlteoa38zaw/Guillermina+2XbGPjbbFnhYpNQsvlC0u6YIvCaZCOjcYNi9 [file] 1EVpD8RWG9vNZcBd6RKhUpGYFOMpOfJG7OPYz= ID Date Data Source [id number] 07/01/2019 07:10:30 AM EDT [facility] Name Value Range Interpretation Code Description Data Teresa rce(s) Supporting Document(s) ABO and Rh group [Type] in Blood [facility] Blood group antibody screen [Presence] in Serum or Plasma [facility] 07/02/2019,0000Performed at [facility] Hank bolivar [place], [place] ID Date Data Source [id number] 07/04/2019 10:35:25 AM EDT [facility] Service Cmnt XXX-Imp : L HANDMicroorgani sm XXX Cult : No growth 5 days Name Value Range Interpretation Code Description Data Teresa rce(s) Supporting Document(s) ID Date Data Source [id number] 06/29/2019 08:46:22 AM EDT [facility] Name Value Range Interpretation Code Description Data Teresa rce(s) Supporting Document(s) Consultation [facility] AIGTCk0qHmQTMtLe60/UUWopYKFsd2TpLVbbYBe8OAjiZETkP8TlUXM5wJ2oRRT1VXpCMfUsKpNlIYBs lbm NrPkiQOcXnUWHvTppQBhSwNYusNggujOYnNM6MpLD0IHKmB63rKBUhUGEtM9PmTQM1OMX+Kk3WXGTypJ XkUP9MJumA1W1cc4yTRa/emf4PN+9Aj0tnPotJt6GfnNHYni8YIWnBm8GlozBgWDAbwJ2GAwR/X+Manny [file] AwMDAwMDAxNyAwMDAwMCBuDQowMDAwMDMxNzgzIDAw JBUkLV6VDkMyKOPlNlU0XIZhEMOeYZIiwq5UXTEdHHMmKVC2MvRkVUIzXARlDTmzIBOwPOG0AwV3VZFh WQShBK4NRbYjIHMeUbV3TwBaUSWrXGChru3BTYIbSRToDGLcWGUxOQXxQFUpZJkvOUVkYNA8OLA1GUJy JUAbZZ7AFuSoSAAwBFY8MAJyEVDaOFBxed9ORCJgDD LyRoI1YZPcBEXmXSDuRKhnPTBbBZZ8XON4VEPdAHFkLN8EVpReGQRxETslRNRhSEMgJRFoor8NGOXeMI PeViRgQJOdBGBgJVFzQEepXJHpPMR2EAx8WBJiNPZqJW5LBdFlLYIaOEk7KLCoCWJlNRIhst4PLXAhJC EmBJi3IKGzYQQjLYKdEWdlCJCmYPSzMVArTEZqFKKu CU8HSkWcDITyHdA8CIosIAKuUCRqgr8GQCDdWMFrVNMyZRYdJUJjUUCoKGqrIEBmVALcPbC4ALRzPYAu TE9ATdIaIFTwKlX4VlZtPYRxPXRkxh7QRHArUFHaGnL0SiXtVBAoHFVzABcwWBVwNRNgNpH8SLYpKBRc CM5GMeChCZGhVjQ6SivlPXCnNASqbx0QRSNoWSBlXI HmVyMdAXXjKEKdZHj4giXfyVSmVDw7RO4TK6KadwQxDeIQXr9Tu899OZA3GBAsLj5AF9upGw7wAUYyAO DEYs8FFVb9IXZcAAJoK3EtDNG1OqdfWAMgOrZ3UMRpL2UcMLT3EEM+QXi4EKZaCqK6ZdZ6RHexO6O8Zl IfBLSxGjZvNCRmFGuyAZ6cTFXXPn4+JSpbcFHqmZduHVTADhA8SGn2WWngZZDGOf7U ID Date Data Source [id number] 06/29/2019 04:04:44 PM EDT [facility] Name Value Range Interpretation Code Description Data Teresa rce(s) Supporting Document(s) ABO and Rh group [Type] in Blood [facility] Blood bank comment [facility] ID Date Data Source [id number] 06/29/2019 04:59:12 AM [facility] Name Value Range Interpretation Code Description Data Teresa rce(s) Supporting Document(s) Leukocytes [#/volume] in Blood by Automated count 10.7 10*3/uL 4-10 [facility] Erythrocytes [#/volume] in Blood by Automated count 4.01 10*6/uL 4.1- 5.3 [facility] Hemoglobin [Mass/volume] in Blood 10.6 g/dL 11.5-15.5 L [facility] Hematocrit [Volume Fraction] of Blood by Automated count 31.6 % 3 6-45 [facility] Erythrocyte mean corpuscular volume [Entitic volume] by Auto mated count 78.7 fL 80-96 [facility] Erythrocyte mean corpuscular hemoglobin [Entitic mass] by Automated count 26.5 pg 27-33 [facility] Erythrocyte mean corpuscular hemoglobin concentration [Mass/volume] by Automated count 33.6 g/dL 32.0-36.0 [facility] width [Ratio] by Automated count 18.4 % 11.5-14.5 [facility] Platelets [#/volume] in Blood by Automated count 447 10*3/uL 150-400 [facility] Differential cell count method - Blood [facility] Neutrophils/100 leukocytes in Blood by Automated count 77 % [facility] Lymphocytes/100 leukocytes in Blood by Automated count 14 % [facility] Monocytes/100 leukocytes in Blood by Automated count 7 % [facility] Eosinophils/100 leukocytes in Blood by Automated count 1 % [facility] Basophils/100 leukocytes in Blood by Automated count 1 % [facility] Neutrophils [#/volume] in Blood by Automated count 8.32 10*3/uL 1.8-7 .0 [facility] Lymphocytes [#/volume] in Blood by Automated count 1.46 10*3/uL 1.2-4 .0 [facility] Monocytes [#/volume] in Blood by Automated count 0.80 10*3/uL 0-0.8 [facility] Eosinophils [#/volume] in Blood by Automated count 0.10 10*3/uL 0-0.5 [facility] Basophils [#/volume] in Blood by Automated count 0.05 10*3/uL 0-0.2 [facility] Nucleated erythrocytes/100 leukocytes [Ratio] in Blood by Automated count 0 /100{WBCs} 0-0 [facility] ID Date Data Source [id number] 06/29/2019 05:32:31 AM EDT [facility] Name Value Range Interpretation Code Description Data Teresa rce(s) Supporting Document(s) Bicarbonate [Moles/volume] in Serum 24 mmol/L 22-29 [facility] Chloride [Moles/volume] in Serum or Plasma 98 mmol/L 98-107 [facility] Creatinine [Mass/volume] in Serum or Plasma 0.92 mg/dL 0.50-0.90 [facility] Glucose [Mass/volume] in Serum or Plasma 96 mg/dL 70-140 [facility] Potassium [Moles/volume] in Serum or Plasma 3.0 mmol/L 3.4-5.1 [facility] Sodium [Moles/volume] in Serum or Plasma 136 mmol/L 136-145 [facility] Urea nitrogen [Mass/volume] in Serum or Plasma 8 mg/dL 6-20 [facility] Anion gap 3 in Serum or Plasma 15 mmol/L 8-15 [facility] Osmolality of Serum or Plasma by calculation 281 mosm/kg 275-300 [facility] Creatinine/Urea nitrogen [Mass Ratio] in Serum or Plasma 9 [facility] Calcium [Mass/volume] in Serum or Plasma 9.2 mg/dL 8.6-10.0 [facility] Glomerular filtration rate/1.73 sq M pre dicted among non-blacks [Volume Rate/Area] in Serum or Plasma by Creatinine-based formula (MDRD) 73 mL/min/1.73m2 >60 [facility] Glomerular filtration rate/1.73 sq M pre dicted among blacks [Volume Rate/Area] in Serum or Plasma by Creatinine-based formula (MDRD) 84 mL/min/1.73m2 >60 [facility] ID Date Data Source [id number] 06/29/2019 05:49:41 AM [facility] Name Value Range Interpretation Code Description Data Teresa rce(s) Supporting Document(s) C reactive protein [Mass/volume] in Serum or Plasma 251.4 mg/L <8.0 [facility] Confirmed ID Date Data Source [id number] 06/28/2019 06:25:44 PM [facility] Name Value Range Interpretation Code Description Data Teresa rce(s) Supporting Document(s) [facility] TDSKHp5iPvNQFbDu76/SJJceHUXew1JzZQbeLZy3DVtoZGAiA1FaUXR1xG5jDHU2DDcJVhTaTmOpRHZa [facility] [file] ABrkYYKiKqyoByVxYfkfZr1lMUKSYd5+XSuwwSJqsNurSPEMPiR0OVofHGpnECGUCq3Z ID Date Data Source [id number] 06/28/2019 05:56:55 PM EDT [facility] Name Value Range Interpretation Code Description Data Teresa rce(s) Supporting Document(s) Consultation [facility] QLPTPu8nHyWJPxSe45/GQIyvQOYre0GqDLqyDNr9PRysAUBwP8QlGZM6jQ7fHYL5KAiFRbTiJlTzSJZr lbm [file] wmJoFAj3QiT6LW0FQAZHY3TOWt== ID Date Data Source [id number] 06/28/2019 01:38:24 PM EDT [facility] Name Value Range Interpretation Code Description Data Teresa rce(s) Supporting Document(s) Consultation [facility] [id number]/OBBwxGLFmf7UbUYxoVZv4RSncYUOeI7IaFGL8cH6iSVM8GGzMYuJnSzPcBLDy lbm [file] AzphY8fiAtIVh0RjH8KWhjCSFVOr2L ID Date Data Source [id number] 06/28/2019 05:13:20 AM EDT [facility] Name Value Range Interpretation Code Description Data Teresa e(s) Supporting Document(s) Leukocytes [#/volume] in Blood by Automated count 9.8 10*3/uL 4-10 [facility] Erythrocytes [#/volume] in Blood by Automated count 3.66 10*6/uL 4.1- 5.3 L [facility] Hemoglobin [Mass/volume] in Blood 9.8 g/dL 11.5-15.5 L [facility] Hematocrit [Volume Fraction] of Blood by Automated count 29.0 % 3 6-45 [facility] Erythrocyte mean corpuscular volume [Entitic volume] by Auto mated count 79.1 fL 80-96 [facility] Erythrocyte mean corpuscular hemoglobin [Entitic mass] by Automated count 26.7 pg 27-33 [facility] Erythrocyte mean corpuscular hemoglobin concentration [Mass/volume] by Automated count 33.7 g/dL 32.0-36.0 [facility] Erythrocyte distribution width [Ratio] by Automated count 18.4 % 11.5-14.5 [facility] Platelets [#/volume] in Blood by Automated count 403 10*3/uL 150-400 [facility] Differential cell count method - Blood [facility] Neutrophils/100 leukocytes in Blood by Automated count 71 % [facility] Lymphocytes/100 leukocytes in Blood by Automated count 20 % [facility] Monocytes/100 leukocytes in Blood by Automated count 8 % [facility] Eosinophils/100 leukocytes in Blood by Automated count 1 % [facility] Basophils/100 leukocytes in Blood by Automated count 0 % [facility] Neutrophils [#/volume] in Blood by Automated count 6.99 10*3/uL 1.8-7 .0 [facility] Lymphocytes [#/volume] in Blood by Automated count 1.92 10*3/uL 1.2-4 .0 [facility] Monocytes [#/volume] in Blood by Automated count 0.74 10*3/uL 0-0.8 [facility] Eosinophils [#/volume] in Blood by Automated count 0.12 10*3/uL 0-0.5 [facility] Basophils [#/volume] in Blood by Automated count 0.04 10*3/uL 0-0.2 [facility] Nucleated erythrocytes/100 leukocytes [Ratio] in Blood by Automated count 0 /100{WBCs} 0-0 [facility] ID Date Data Source [id number] 06/28/2019 05:23:04 AM [facility] Value Range Interpretation Code Description Data Teresa rce(s) Supporting Document(s) Creatine kinase [Enzymatic activity/volume] in Serum or Plasma 379 U/L 20-180 [facility] ID Date Data Source [id number] 06/28/2019 05:23:04 AM [facility] Value Range Interpretation Code Description Data Teresa rce(s) Supporting Document(s) Bicarbonate [Moles/volume] in Serum 23 mmol/L 22-29 [facility] Chloride [Moles/volume] in Serum or Plasma 99 mmol/L 98-107 [facility] Creatinine [Mass/volume] in Serum or Plasma 0.95 mg/dL 0.50-0.90 [facility] Glucose [Mass/volume] in Serum or Plasma 81 mg/dL 70-140 [facility] Potassium [Moles/volume] in Serum or Plasma 3.4 mmol/L 3.4-5.1 [facility] Sodium [Moles/volume] in Serum or Plasma 136 mmol/L 136-145 [facility] Urea nitrogen [Mass/volume] in Serum or Plasma 7 mg/dL 6-20 [facility] Anion gap 3 in Serum or Plasma 14 mmol/L 8-15 [facility] Osmolality of Serum or Plasma by calculation 279 mosm/kg 275-300 [facility] Creatinine/Urea nitrogen [Mass Ratio] in Serum or Plasma 7 [facility] Calcium [Mass/volume] in Serum or Plasma 8.9 mg/dL 8.6-10.0 [facility] Glomerular filtration rate/1.73 sq M pre dicted among non-blacks [Volume Rate/Area] in Serum or Plasma by Creatinine-based formula (MDRD) 70 mL/min/1.73m2 >60 [facility] Glomerular filtration rate/1.73 sq M pre dicted among blacks [Volume Rate/Area] in Serum or Plasma by Creatinine-based formula (MDRD) 81 mL/min/1.73m2 >60 [facility] ID Date Data Source [id number] 06/28/2019 07:08:44 AM [facility] Name Value Range Interpretation Code Description Data Teresa rce(s) Supporting Document(s) C reactive protein [Mass/volume] in Serum or Plasma 213.2 mg/L <8.0 [facility] ID Date Data Source [id number] 06/27/2019 09:04:14 PM [facility] XR SPINE LUMBAR 2-3 VIEWS [id number] RES ULTInterpreted by:Rachel Moya MDINDICATION: 48-year-old female with Back pain.TECHNIQUE: AP, lateral and lateral views of the lumbar spine were obtained, 2 images. COMPARISON: None available for comparison.FINDINGS: Postsurgical changes consistent with L4 laminectomy and posterior fusion of L5-S1 with prosthetic intervertebral disc spacer. The visible hardware is intact. 5 lumbar vertebrae are in anatomic alignment with no acute fracture or subluxation. Disc space narrowing is demonstrated at L4-5 and L5-S1. Sclerotic changes in the facet joints are noted. Calcification of the abdominal aorta is demonstrated. Surgical clips in the right upper quadrant consistent prior cholecystectomy. Visible bowel demonstrates a nonobstructive bowel gas pattern. Multiple skin tani, suture material and surgical clips overlie the pelvis.IMPRESSION:Postsurgical change as described above.No radiographic evidence of acute pathology.Multilevel degenerative disc and facet joint disease.END IMPRESSIONThis document has been electronically signed by Concha Alaniz MD on 06/27/2019 9:02 PM Name Value Range Interpretation Code Description Data Teresa rce(s) Supporting Document(s) ID Date Data Source [id number] 06/27/2019 07:15:32 PM EDT [facility] Name Value Range Interpretation Code Description Data Teresa rce(s) Supporting Document(s) History and Physical [facility] VOVCFz3pOwZHMeFa01/OEQqyAIIqu3WdBWqqICw5VMhbYRMzY9IqNBU5iD4fMDV6CUtBRvLaMcQvYDLu lbm [file] 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+GkC+WGNQhIpGxkEZsohXRR2NyOHCRHyqvBQjHcdKN9vkLzbgKfec0kGoD6b7PgKt2S8X/j60h5+2a [file] AgICAgICAgICAgICAgICAgICAgICAgICAgICAgICAg ICAgICAgICAgICAgICAgICANCiAgICAgICAgICAgICAgICAgICAgICAgICAgICAgICAgICAgICAgICAg ICAgICAgICAgICAgICAgICAgICAgICAgICAgICAgICAgICAgICAgICAgICAgICAgICAgICAgICAgICAN CiAgICAgICAgICAgICAgICAgICAgICAgICAgICAgIC AgICAgICAgICAgICAgICAgICAgICAgICAgICAgICAgICAgICAgICAgICAgICAgICAgICAgICAgICAgIC AgICAgICAgICANCiAgICAgICAgICAgICAgICAgICAgICAgICAgICAgICAgICAgICAgICAgICAgICAgIC AgICAgICAgICAgICAgICAgICAgICAgICAgICAgICAg ICAgICAgICAgICAgICAgICAgICANCiAgICAgICAgICAgICAgICAgICAgICAgICAgICAgICAgICAgICAg ICAgICAgICAgICAgICAgICAgICAgICAgICAgICAgICAgICAgICAgICAgICAgICAgICAgICAgICAgICAg ICANCiAgICAgICAgICAgICAgICAgICAgICAgICAgIC AgICAgICAgICAgICAgICAgICAgICAgICAgICAgICAgICAgICAgICAgICAgICAgICAgICAgICAgICAgIC AgICAgICAgICAgICANCiAgICAgICAgICAgICAgICAgICAgICAgICAgICAgICAgICAgICAgICAgICAgIC AgICAgICAgICAgICAgICAgICAgICAgICAgICAgICAg ICAgICAgICAgICAgICAgICAgICAgICANCiAgICAgICAgICAgICAgICAgICAgICAgICAgICAgICAgICAg ICAgICAgICAgICAgICAgICAgICAgICAgICAgICAgICAgICAgICAgICAgICAgICAgICAgICAgICAgICAg ICAgICANCiAgICAgICAgICAgICAgICAgICAgICAgIC AgICAgICAgICAgICAgICAgICAgICAgICAgICAgICAgICAgICAgICAgICAgICAgICAgICAgICAgICAgIC AgICAgICAgICAgICAgICANCiAgICAgICAgICAgICAgICAgICAgICAgICAgICAgICAgICAgICAgICAgIC AgICAgICAgICAgICAgICAgICAgICAgICAgICAgICAg ICAgICAgICAgICAgICAgICAgICAgICAgICANCjw/zRWeR0pauKPurvB5A7fnEp8AGr2EKB2mm2ZbXJMc RCmfhaLgYtnEPvFhWKMjKmcHQxy2FLktGN4AoZAsE2DdP2JoEUmeVR5DGJXcGBQpdSJxRGDhCSSqCeP8 BZUgPWpbOQ4QcFXhBZcyYBGgOLPuQpZqHCKnSRIbRW ObYFPyAYLVTYFxQHFgMfMnGRlbCI0Qo6BlqRG5SIq+Qh1UYG5cr8EdABygVSAgCH4xms0MKBoYQlOtF6 MnkmC6MRYyYPTkWk2JEVCjJJVmtODsRHTrXJISTfVuV2RziU32JRPCSs4+DQplbmRvYmoNCjMxIDAgb2 EhHEw9PI6IRVIfEOl5lDOgDSMRTMH9OIZlhcKvhBUR vQNdRElvXG9GRJJ1QKUxXhPsJgJhMNJoBSzrVQRXZZhNCdNaW4Ylx3WmZrL8KZQuGvTdVDnsNQZjIrO9 XF16uJqgJT3ZORZrYVQkPI92XLYjVTViQm7TIx0YOgCiPJ0feg4EDeJhOQGlElaWEzk2TLgoPZ6GkOJt Z5ZzpRQlb4aQYiCxG3WYVVN2LCApVr2ZXPCdOsIoHU ErQPeoHT4jRZUzOXXCyWmonbS9HX6PNJ7ekzZeYI7TMjLsAj5pRw1KZoCuN1NcT5ZwGNPuLWEFUSbuOJ 2PXRhnJU5zBL1Pr0NEwSHwjH9xvl3ORTFrJDGaRrykcf7NErmmP3C6iEwgXOLpOkSoHKFMOUtvVH5UTT QdIKL6MCUbSAUmBURTGxVgH87mHJ8KU6Rrt69xFeB1 KFKiKgGuPCkcML56eGbmgiVjzRXaqVsfJR8BVr1+DQplbmRvYmoNCnhyZWYNCjAgMzMNCjAwMDAwMDAw ORTeDyJ4BxUzGo9YPUTrPNWySIXgYbXvYFDjAFEjZJftNDWqUIEnANN0WUUdZRJiAJ2UPuCtLSJeJnG2 KRMsXMPpSXQayy1LGFHrHPJhLMN8TfGbPSNuZBYeLW nyATCqNRXcTLboRULpPFQlZY2DDfOhXGHrKVEpRBJiPFAyJFXfog2YZMHoKYErSdj1DOCuDQGbJRSvTK xwBXMtDYZ4MLw8CLWaMIFmOO9VKhGzHPCfQBCnGIQfQXGfYEBplw5NWTHuPGLdQCD0WYYlMQQnADUlPC teNCTcRNK0MNG1LXHgQUEpEQ0QCoMpGXMuEBAmLNQf MEQmCDTygk9TYTBuEKEjGTO0OMSsZAJtONBiVLeyILGcJDN8RiCoCYWfMAEnYO7TVeQgKJHvINM2FJRq HRKjIEBkou1ZCOXmWAKsMsjoWcCeUNPdDTFgULopVYSvMCO8RWwrGMXkDLDjCV3APpOnGTZkTUd2CZso MWCnWVAntb0HHVKxVJFuXWT5DHDaPTNeGFZvPVgpRG IfEIE5BxE5XNQaORTlZS0BHeJuELLpYfz5NoXbBGAqHNVqlg7CBJVuBVSlGKL5CmLiCCGbVCSoONrnDJ GbWTRdYhObFKBcEJDyTG7YEfXhZBWdGkR1EIOnVICiPKRinu1IQSGuGPHqRTBmWfNuZWLfPMVoDHhgXH UqKIMiTPbmNBFlPXMuPW9SDpVtYYEfPbD4XabyTAWa CERpfh5KHNWaNGYtYAo7FkDsSAZtTXBhCEqrFIHaYHYgQoDvTEEwHZNbGR0AHsAdKGDxFqM4JwcqXSLf GHTvaq3XJTMuSOYdNso3DGZpPYGbLFBmTEtuOEDjOQL0AWU6NCOdZDJlGL8UPwOoAAdrTGHSSvc9GSuo Z7q2KKNcDy1VM1Psr1NnSzJjVOMEQJsqXA1utaSqMG HhNe4WW2hFNgkdCFMrHPH6DSJ7GsE7PPPxGYY4HRW9YbUmFOI8OVWgFb2cWAGlS1XvBAlsDjohFPO9YO XaSOVgUnZ0KrPlXiR1VXOoGwXnMC2PZv7UXmQ8VBO4mEGvBu5JIyEaLzrMFmUbKM4QEBs= ID Date Data Source [id number] 06/27/2019 07:04:58 PM EDT [facility] Name Value Range Interpretation Code Description Data Teresa rce(s) Supporting Document(s) Erythrocyte sedimentation rate 98 mm/hr <20 [facility] ID Date Data Source [id number] 06/27/2019 08:05:59 PM EDT [facility] Value Range Interpretation Code Description Data Teresa rce(s) Supporting Document(s) C reactive protein [Mass/volume] in Serum or Plasma 205.7 mg/L <3.0 [facility] Confirmed(NOTE)CRPHS (mg/L) CVD risk- <1.0 low 1.0-3.0 average >3.0 high ID Date Data Source [id number] 06/27/2019 06:21:22 PM EDT [facility] Value Range Interpretation Code Description Data Teresa rce(s) Supporting Document(s) [facility] JKMNFc1pLeAPIpNw05/KUGapCHOaf6GoDJbrTAt2BFsuVGGfK7JuYAD9eW5kNHQ1KIeRZaCrOvVnCOUn lbm [file] TZW4JCpvMUE9HyKqZBQeWEx+AB8nZPj+Ru2Di3UazhV3tlFlMRxfTICtST8CEKXUB4PDKk== ID Date Data Source [id number] 06/27/2019 04:51:35 PM EDT [facility] XR CHEST FRONTAL ONLY [id number] RESULTI nterpreted by:Tramaine Serrano MDINDICATION: PICC placement.TECHNIQUE: XR CHEST FRONTAL ONLY [id number], 06/27/2019 4:36 PM, 60 degrees upright.COMPARISON: None available.FINDINGS: The PICC extends from the right upper extremity into the superior vena cava.There is fixation hardware from an anterior fusion in the lower cervical spine. The chest wall is normal in appearance. The mediastinal contours are normal. I see no findings of pleural disease. The lungs are clear.IMPRESSION: 1. The PICC extends into the superior vena cava.This document has been electronically signed by Tramaine Serrano MD on 06/27/2019 4:49 PM Name Value Range Interpretation Code Description Data Teresa rce(s) Supporting Document(s) ID Date Data Source FERRITIN 06/14/2019 12:00:00 AM EDT eCW1 ([facility]) Name Value Range Interpretation Code Description Data Teresa rce(s) Supporting Document(s) 1030 [id number] FERRITIN eCW1 ([facility]) ID Date Data Source TOTAL IRON BINDING CAPACIT 06/14/2019 12:00:00 AM EDT eCW1 ( [facility]) Name Value Range Interpretation Code Description Data Teresa rce(s) Supporting Document(s) 35 50-170 IRON (FE) eCW1 ([facility]) 15.3 13.2-45.0 PERCENT SATURATION eCW1 ([facility]) 229 250-450 TOTAL IRON BINDING CAPACI TY eCW1 ([facility]) ID Date Data Source Basic Metabolic Profile (BMP) 06/14/2019 12:00:00 AM EDT eCW 1 ([facility]) Name Value Range Interpretation Code Description Data Teresa rce(s) Supporting Document(s) 12 7-18 BLOOD UREA NITROGEN eCW1 ([facility]) 122 70-100 GLUCOSE, FASTING eCW1 ([facility]) > 60.0 >58 GLOMERULAR FILTRATION RATE eCW 1 ([facility]) 135 136-145 SODIUM LEVEL eCW1 ([facility]) 0.96 0.55-1.30 CREATININE FOR GFR eCW1 ([facility]) 102 98-107 CHLORIDE LEVEL eCW1 ([facility]) 3.5 3.5-5.1 POTASSIUM SERUM eCW1 ([facility]) 9.4 8.5-10.1 CALCIUM LEVEL eCW1 ([facility]) 23 21-32 CARBON DIOXIDE LEVEL [facility] ID Date Data Source [id number] 06/02/2019 11:05:00 AM EDT [facility] Name Value Range Interpretation Code Description Data Teresa rce(s) Supporting Document(s) Referral Test Name [facility] GBM IGG AB PANEL Referral Lab [facility] Referral Test Code or Mnem[facility] [id number] Referral Test Results [facility] Reference lab report sent via fax. ID Date Data Source NINO 05/26/2019 12:00:00 AM EDT eCW1 ([facility]) Name Value Range Interpretation Code Description Data Teresa rce(s) Supporting Document(s) Negative Negative ANTINUCLEAR ANTIBODIES DI RECT eCW1 ([facility]) ID Date Data Source ANCA Panel with MPO & PR3 05/26/2019 12:00:00 AM EDT eCW1 ([facility]) Name Value Range Interpretation Code Description Data Teresa rce(s) Supporting Document(s) Myeloperoxidase Ab [Units/volume] in Serum <9.0 0.0-9.0 Antimyeloperxidase(MPO) Abs eCW1 ([facility]) Proteinase 3 Ab [Units/volume] in Serum <3.5 0.0-3.5 Antiproteinase 3 (DC-3) Abs eCW1 ([facility]) ID Date Data Source CRYOGLOBULINS 05/26/2019 12:00:00 AM EDT eCW1 ([facility]) Name Value Range Interpretation Code Description Data Teresa rce(s) Supporting Document(s) NEGATIVE NEGATIVE CRYOGLOBULINS W1 ([facility]) ID Date Data Source CBC - Complete Blood Count 05/26/2019 12:00:00 AM EDT eCW1 ( [facility]) Name Value Range Interpretation Code Description Data Teresa rce(s) Supporting Document(s) 12.0 4.0-10.0 WHITE BLOOD COUNT eCW1 ([facility]) 78.0 80.0-96.0 MEAN CORPUSCULAR VOLUME e CW1 ([facility]) 28.4 36.0-47.0 HEMATOCRIT eCW1 ([facility]) 3.64 4.00-5.40 RED BLOOD COUNT eCW1 ([facility]) 9.1 12.0-15.5 HEMOGLOBIN eCW1 ([facility]) 32.0 32.0-36.5 MEAN CORPUSCULAR HGB CONC eCW1 ([facility]) 16.0 11.5-14.5 RED CELL DISTRIBUTION WID TH eCW1 ([facility]) 25.0 27.0-33.0 MEAN CORPUSCULAR HEMOGLOB IN eCW1 ([facility]) 418 150-450 PLATELET COUNT, AUTOMATED eCW1 ([facility]) ID Date Data Source COMPLEMENT C4 05/26/2019 12:00:00 AM EDT eCW1 ([facility]) Name Value Range Interpretation Code Description Data Teresa rce(s) Supporting Document(s) 34 10-40 COMPLEMENT C4 eCW1 ([facility]) Procedure Social History Code Duration Value Status Description Data Source(s ) Smoking 03/21/2020 12:00:00 AM EST Current Smoker completed Curre nt Smoker eCW1 ([facility]) Smoking 03/21/2020 12:00:00 AM EST Current Smoker completed Curre nt Smoker eCW1 ([facility]) Smoking 03/21/2020 12:00:00 AM EST Current Smoker completed Curre nt Smoker eCW1 ([facility]) Smoking 03/12/2020 12:00:00 AM EST Current Smoker completed Curre nt Smoker eCW1 ([facility]) Smoking 03/12/2020 12:00:00 AM EST Current Smoker completed Curre nt Smoker eCW1 ([facility]) Smoking 03/12/2020 12:00:00 AM EST Current Smoker completed Curre nt Smoker eCW1 ([facility]) Smoking 03/12/2020 12:00:00 AM EST Current Smoker completed Curre nt Smoker eCW1 ([facility]) Smoking 02/27/2020 12:00:00 AM EST Current Smoker completed Curre nt Smoker eCW1 ([facility]) Smoking 02/27/2020 12:00:00 AM EST Current Smoker completed Curre nt Smoker eCW1 ([facility]) Smoking 02/27/2020 12:00:00 AM EST Current Smoker completed Curre nt Smoker eCW1 ([facility]) Smoking 02/20/2020 12:00:00 AM EST Current Smoker completed Curre nt Smoker eCW1 ([facility]) Smoking 02/06/2020 12:00:00 AM EST Current Smoker completed Curre nt Smoker eCW1 ([facility]) Smoking 02/06/2020 12:00:00 AM EST Current Smoker completed Curre nt Smoker eCW1 ([facility]) Smoking 02/06/2020 12:00:00 AM EST Current Smoker completed Curre nt Smoker eCW1 ([facility]) Alcohol intake 01/10/2020 12:00:00 AM EST Not Currently completed [facility] Smoking 01/10/2020 12:00:00 AM EST Current every day smoker co mpleted Current every day smoker [facility] Smoking 01/10/2020 12:00:00 AM EST Current Smoker completed Curre nt Smoker eCW1 ([facility]) Smoking 01/02/2020 12:00:00 AM EDT Current Smoker completed Curre nt Smoker eCW1 ([facility]) Smoking 12/21/2019 12:00:00 AM EDT Current Smoker completed Curre nt Smoker eCW1 ([facility]) Smoking 12/21/2019 12:00:00 AM EDT Current Smoker completed Curre nt Smoker eCW1 ([facility]) Smoking 12/21/2019 12:00:00 AM EDT Current Smoker completed Curre nt Smoker eCW1 ([facility]) Smoking 12/21/2019 12:00:00 AM EDT Current Smoker completed Curre nt Smoker eCW1 ([facility]) Smoking 12/21/2019 12:00:00 AM EDT Current Smoker completed Curre nt Smoker eCW1 ([facility]) Smoking 12/21/2019 12:00:00 AM EDT Current Smoker completed Curre nt Smoker eCW1 ([facility]) Smoking 12/21/2019 12:00:00 AM EDT Current Smoker completed Curre nt Smoker eCW1 ([facility]) Smoking 12/11/2019 12:00:00 AM EDT Current Smoker completed Curre nt Smoker eCW1 ([facility]) Smoking 12/08/2019 12:00:00 AM EDT Current Smoker completed Curre nt Smoker eCW1 ([facility]) Smoking 09/20/2019 12:00:00 AM EDT Current Smoker completed Curre nt Smoker eCW1 ([facility]) Smoking 09/20/2019 12:00:00 AM EDT Current Smoker completed Curre nt Smoker eCW1 ([facility]) Smoking 08/22/2019 12:00:00 AM EDT Former Smoker completed Former Smoker eCW1 ([facility]) Smoking 07/19/2019 12:00:00 AM EDT Former Smoker completed Former Smoker eCW1 ([facility]) Smoking 07/05/2019 12:00:00 PM EDT Smokes tobacco daily (findi ng) completed Current Every Day Smoker [facility] ([facility]) Alcohol intake 06/30/2019 12:00:00 AM EDT Current non-d francisco of alcohol (finding) completed Current non-drinker of alcohol (finding) [facility] Tobacco use and exposure 06/30/2019 12:00:00 AM EDT Never used co mpleted Never used [facility] Cigarettes smoked current (pack per day) - Reported 06/30/19 12:00:00 AM EDT UNK completed [facility] Smoking 06/30/2019 12:00:00 AM EDT Light tobacco smoker comple mary Light tobacco smoker [facility] Cigarettes smoked current (pack per day) - Reported 06/30/19 12:00:00 AM EDT UNK completed [facility] Smoking 06/30/2019 12:00:00 AM EDT Light tobacco smoker comple mary Light tobacco smoker [facility] Vital Signs ID Date Data Source UNK Name Value Range Interpretation Code Description Data Source(s) Diastolic blood pressure 60 mm[Hg] 60 mm[Hg] eCW1 ([facility]) Systolic blood pressure 122 mm[Hg] 122 mm[Hg] e CW1 ([facility]) Body temperature 98.6 [degF] 98.6 [degF] eCW1 ( [facility]) Respiratory rate 24 /min 24 /min eCW1 ([facility]) Heart rate 128 /min 128 /min eCW1 ([facility]) Body mass index (BMI) [Ratio] 21.21 kg/m2 21.21 kg/m2 eCW1 ([facility]) Body height 59 [in_i] 59 [in_i] eCW1 ([facility]) Body weight 105 [lb_av] 105 [lb_av] eCW1 ([facility]) Diastolic blood pressure 64 mm[Hg] 64 mm[Hg] eCW1 ([facility]) Systolic blood pressure 98 mm[Hg] 98 mm[Hg] e CW1 ([facility]) Body temperature 98.4 [degF] 98.4 [degF] eCW1 ( [facility]) Respiratory rate 18 /min 18 /min eCW1 ([facility]) Heart rate 78 /min 78 /min eCW1 ([facility]) Body mass index (BMI) [Ratio] 20.80 kg/m2 20.80 kg/m2 W1 ([facility]) Body height 59 [in_i] 59 [in_i] eCW1 ([facility]) Body weight 103 [lb_av] 103 [lb_av] eCW1 ([facility]) Oxygen saturation in Arterial blood by Pulse oximetry 96 % 96 % [facility] Respiratory rate 14 /min 14 /min [facility] Body temperature 36.78 Bhavna 36.78 Bhavna [facility] Heart rate 72 /min 72 /min [facility] Diastolic blood pressure 66 mm[Hg] 66 mm[Hg] [facility] Systolic blood pressure 106 mm[Hg] 106 mm[Hg] [facility] Body mass index (BMI) [Ratio] 22.15 kg/m2 22.15 kg/m2 [facility] Body weight 48.081 kg 48.081 kg [facility] Body height 147.3 cm 147.3 cm [facility] Diastolic blood pressure 62 mm[Hg] 62 mm[Hg] eCW1 ([facility]) Systolic blood pressure 118 mm[Hg] 118 mm[Hg] e CW1 ([facility]) Body temperature 97.6 [degF] 97.6 [degF] eCW1 ( [facility]) Respiratory rate 18 /min 18 /min eCW1 ([facility]) Heart rate 110 /min 110 /min eCW1 ([facility]) Body mass index (BMI) [Ratio] 21.81 kg/m2 21.81 kg/m2 eCW1 ([facility]) Body height 59 [in_i] 59 [in_i] eCW1 ([facility]) Body weight 108 [lb_av] 108 [lb_av] eCW1 ([facility]) Diastolic blood pressure 72 mm[Hg] 72 mm[Hg] eCW1 ([facility]) Systolic blood pressure 128 mm[Hg] 128 mm[Hg] e CW1 ([facility]) Body temperature 18 [degF] 18 [degF] eCW1 ([facility]) Respiratory rate 18 /min 18 /min eCW1 ([facility]) Heart rate 118 /min 118 /min eCW1 ([facility]) Body mass index (BMI) [Ratio] 22.01 kg/m2 22.01 kg/m2 eCW1 ([facility]) Body height 59 [in_i] 59 [in_i] eCW1 ([facility]) Body weight 109 [lb_av] 109 [lb_av] eCW1 ([facility]) Diastolic blood pressure 62 mm[Hg] 62 mm[Hg] eCW1 ([facility]) Systolic blood pressure 114 mm[Hg] 114 mm[Hg] e CW1 ([facility]) Body temperature 16 [degF] 16 [degF] eCW1 ([facility]) Respiratory rate 16 /min 16 /min eCW1 ([facility]) Heart rate 92 /min 92 /min eCW1 ([facility]) Body mass index (BMI) [Ratio] 22.62 kg/m2 22.62 kg/m2 eCW1 ([facility]) Body height 59 [in_i] 59 [in_i] eCW1 ([facility]) Body weight 112 [lb_av] 112 [lb_av] eCW1 ([facility]) Diastolic blood pressure 72 mm[Hg] 72 mm[Hg] eCW1 ([facility]) Systolic blood pressure 100 mm[Hg] 100 mm[Hg] e CW1 ([facility]) Body temperature 16 [degF] 16 [degF] eCW1 ([facility]) Respiratory rate 18 /min 18 /min eCW1 ([facility]) Heart rate 99 /min 99 /min eCW1 ([facility]) Body mass index (BMI) [Ratio] 22.13 kg/m2 22.13 kg/m2 eCW1 ([facility]) Body height 59 [in_i] 59 [in_i] eCW1 ([facility]) Body weight 49.7 kg 49.7 kg eCW1 ([facility]) Body weight 109.6 [lb_av] 109.6 [lb_av] eCW1 ([facility]) Diastolic blood pressure 64 mm[Hg] 64 mm[Hg] eCW1 ([facility]) Systolic blood pressure 110 mm[Hg] 110 mm[Hg] e CW1 ([facility]) Body temperature 97.7 [degF] 97.7 [degF] eCW1 ( [facility]) Respiratory rate 16 /min 16 /min eCW1 ([facility]) Heart rate 128 /min 128 /min eCW1 ([facility]) Body mass index (BMI) [Ratio] 22.54 kg/m2 22.54 kg/m2 eCW1 ([facility]) Body height 59 [in_i] 59 [in_i] eCW1 ([facility]) Body weight 50.6 kg 50.6 kg eCW1 ([facility]) Body weight 111.6 [lb_av] 111.6 [lb_av] eCW1 ([facility]) Diastolic blood pressure 72 mm[Hg] 72 mm[Hg] eCW1 ([facility]) Systolic blood pressure 126 mm[Hg] 126 mm[Hg] e CW1 ([facility]) Body temperature 97.6 [degF] 97.6 [degF] eCW1 ( [facility]) Respiratory rate 16 /min 16 /min eCW1 ([facility]) Heart rate 92 /min 92 /min eCW1 ([facility]) Body mass index (BMI) [Ratio] 23.02 kg/m2 23.02 kg/m2 eCW1 ([facility]) Body height 59 [in_i] 59 [in_i] eCW1 ([facility]) Body weight 114 [lb_av] 114 [lb_av] eCW1 ([facility]) Diastolic blood pressure 62 mm[Hg] 62 mm[Hg] eCW1 ([facility]) Systolic blood pressure 116 mm[Hg] 116 mm[Hg] e CW1 ([facility]) Body temperature 98.2 [degF] 98.2 [degF] eCW1 ( [facility]) Respiratory rate 18 /min 18 /min eCW1 ([facility]) Heart rate 118 /min 118 /min eCW1 ([facility]) Body mass index (BMI) [Ratio] 23.22 kg/m2 23.22 kg/m2 eCW1 ([facility]) Body height 59 [in_us] 59 [in_us] eCW1 ([facility]) Body weight Measured 115 [lb_av] 115 [lb_av] eC W1 ([facility]) Diastolic blood pressure 74 mm[Hg] 74 mm[Hg] eCW1 ([facility]) Systolic blood pressure 122 mm[Hg] 122 mm[Hg] e CW1 ([facility]) Body temperature 97 [degF] 97 [degF] eCW1 ([facility]) Respiratory rate 16 /min 16 /min eCW1 ([facility]) Heart rate 113 /min 113 /min eCW1 ([facility]) Body mass index (BMI) [Ratio] 22.82 kg/m2 22.82 kg/m2 eCW1 ([facility]) Body height 59 [in_us] 59 [in_us] eCW1 ([facility]) Body weight Measured 113 [lb_av] 113 [lb_av] eC W1 ([facility]) Diastolic blood pressure 88 mm[Hg] 88 mm[Hg] eCW1 ([facility]) Systolic blood pressure 148 mm[Hg] 148 mm[Hg] e CW1 ([facility]) Body mass index (BMI) [Ratio] 24.15 kg/m2 24.15 kg/m2 eCW1 ([facility]) Body height 59 [in_us] 59 [in_us] eCW1 ([facility]) Body weight Measured 119.6 [lb_av] 119.6 [lb_av ] eCW1 ([facility]) Diastolic blood pressure 86 mm[Hg] 86 mm[Hg] eCW1 ([facility]) Systolic blood pressure 134 mm[Hg] 134 mm[Hg] e CW1 ([facility]) Body temperature 98.8 [degF] 98.8 [degF] eCW1 ( [facility]) Respiratory rate 18 /min 18 /min eCW1 ([facility]) Heart rate 119 /min 119 /min eCW1 ([facility]) Body mass index (BMI) [Ratio] 25.24 kg/m2 25.24 kg/m2 eCW1 ([facility]) Body height 59 [in_us] 59 [in_us] eCW1 ([facility]) Body weight Measured 125 [lb_av] 125 [lb_av] eC W1 ([facility]) Diastolic blood pressure 64 mm[Hg] 64 mm[Hg] eCW1 ([facility]) Systolic blood pressure 126 mm[Hg] 126 mm[Hg] e CW1 ([facility]) Body temperature 98.3 [degF] 98.3 [degF] eCW1 ( [facility]) Respiratory rate 16 /min 16 /min eCW1 ([facility]) Heart rate 113 /min 113 /min eCW1 ([facility]) Body mass index (BMI) [Ratio] 24.84 kg/m2 24.84 kg/m2 eCW1 ([facility]) Body height 59 [in_us] 59 [in_us] eCW1 ([facility]) Body weight Measured 123 [lb_av] 123 [lb_av] eC W1 ([facility]) ID Date Data Source [id number] 08/25/2019 08:24:02 AM T [facility] Name Value Range Interpretation Code Description Data Source(s) WEIGHT RECORDED 112.8 lb 112.8 lb [facility] Body height Measured 58 in 58 in [facility] Patient Treatment Plan of Care Planned Activity Planned Date Details Description Data Source (s) meloxicam 15 MG Oral Tablet 03/18/2020 12:00:00 AM [facility] Ketorolac Tromethamine 10 MG Oral Tablet 03/12/2020 12:00:00 AM EST eCW1 ([facility]) Ketorolac Tromethamine 10 MG Oral Tablet 03/12/2020 12:00:00 AM EST eCW1 ([facility]) Ketorolac Tromethamine 10 MG Oral Tablet 03/12/2020 12:00:00 AM EST eCW1 ([facility]) Ketorolac Tromethamine 10 MG Oral Tablet 03/12/2020 12:00:00 AM EST eCW1 ([facility]) cefdinir 300 MG Oral Capsule 02/20/2020 12:00:00 AM EST eCW1 ([facility]) Phenergan 25 MG 02/06/2020 12:00:00 AM EST eCW1 ([facility]) Dicyclomine Hydrochloride 20 MG Oral Tablet 02/06/2020 12:00:00 AM EST eCW1 ([facility]) Phenergan 25 MG 02/06/2020 12:00:00 AM EST eCW1 ([facility]) Dicyclomine Hydrochloride 20 MG Oral Tablet 02/06/2020 12:00:00 AM EST eCW1 ([facility]) Phenergan 25 MG 02/06/2020 12:00:00 AM EST eCW1 ([facility]) Dicyclomine Hydrochloride 20 MG Oral Tablet 02/06/2020 12:00:00 AM EST eCW1 ([facility]) Potassium Chloride Thais ER 10 MEQ 12/25/2019 12:00:00 AM EDT eCW1 ([facility]) Potassium Chloride Thais ER 10 MEQ 12/25/2019 12:00:00 AM EDT eCW1 ([facility]) Potassium Chloride Thais ER 10 MEQ 12/25/2019 12:00:00 AM EDT eCW1 ([facility]) Potassium Chloride 20 MEQ 12/21/2019 12:00:00 AM EDT eCW1 ([facility]) Triamcinolone Acetonide 0.001 MG/MG Oral Paste 12/21/2019 12:00:00 AM EDT eCW1 ([facility]) Potassium Chloride 20 MEQ 12/21/2019 12:00:00 AM EDT eCW1 ([facility]) Triamcinolone Acetonide 0.001 MG/MG Oral Paste 12/21/2019 12:00:00 AM EDT eCW1 ([facility]) Potassium Chloride 20 MEQ 12/21/2019 12:00:00 AM EDT eCW1 ([facility]) Triamcinolone Acetonide 0.001 MG/MG Oral Paste 12/21/2019 12:00:00 AM EDT eCW1 ([facility]) Potassium Chloride 20 MEQ 12/21/2019 12:00:00 AM EDT eCW1 ([facility]) Triamcinolone Acetonide 0.001 MG/MG Oral Paste 12/21/2019 12:00:00 AM EDT eCW1 ([facility]) Potassium Chloride 20 MEQ 12/21/2019 12:00:00 AM EDT eCW1 ([facility]) Triamcinolone Acetonide 0.001 MG/MG Oral Paste 12/21/2019 12:00:00 AM EDT eCW1 ([facility]) Potassium Chloride 20 MEQ 12/21/2019 12:00:00 AM EDT eCW1 ([facility]) Triamcinolone Acetonide 0.001 MG/MG Oral Paste 12/21/2019 12:00:00 AM EDT eCW1 ([facility]) Potassium Chloride 20 MEQ 12/21/2019 12:00:00 AM EDT eCW1 ([facility]) Triamcinolone Acetonide 0.001 MG/MG Oral Paste 12/21/2019 12:00:00 AM EDT eCW1 ([facility]) Hydroxychloroquine Sulfate 200 MG Oral Tablet [[place]] 12/08/2019 12:00:00 AM EDT eCW1 ([facility]) meloxicam 15 MG Oral Tablet 09/20/2019 12:00:00 AM EDT eCW1 ([facility]) meloxicam 15 MG Oral Tablet 09/20/2019 12:00:00 AM EDT eCW1 ([facility]) Fluconazole 150 MG Oral Tablet [Diflucan] 08/22/2019 12:00:00 AM ED T eCW1 ([facility]) Buprenorphine 8 MG / Naloxone 2 MG Oral Strip 07/24/2019 12:00:00 [facility] Estradiol 0.5 MG Oral Tablet 07/18/2019 12:00:00 AM EDT eCW1 ([facility]) Rifampin 300 MG Oral Capsule 07/18/2019 12:00:00 AM EDT eCW1 ([facility]) gabapentin 300 MG Oral Capsule 07/18/2019 12:00:00 AM EDT eCW1 ([facility]) Rifampin 300 MG Oral Capsule 07/18/2019 12:00:00 AM EDT eCW1 ([facility]) Estradiol 0.5 MG Oral Tablet 07/18/2019 12:00:00 AM EDT [facility] ([facility]) gabapentin 300 MG Oral Capsule 07/18/2019 12:00:00 AM EDT [facility] ([facility]) heparin sodium, porcine 10 UNT/ML Injectable Solution 07/03/2019 12:00:00 AM [facility] Sodium Chloride (PF) 0.9 % Injection Solution 07/03/2019 12:00:00 [facility] Diclofenac Sodium 0.01 MG/MG Topical Gel 07/03/2019 12:00:00 AM [facility] sennosides, PRISON 8.6 MG Oral Tablet 07/03/2019 12:00:00 AM [facility] Oxycodone Hydrochloride 5 MG Oral Tablet 07/03/2019 12:00:00 AM [facility] 1 ML Ketorolac Tromethamine 30 MG/ML Cartridge 07/03/2019 12:00:00 AM [facility] sodium chloride 0.9 % SOLN 50 mL with DAPTOmycin 350 M G SOLR 517 mg 07/03/2019 12:00:00 AM [facility] 4 ML Labetalol hydrochloride 5 MG/ML Cartridge 07/02/2019 07:30:52 AM [facility] Ergocalciferol 20392 UNT Oral Capsule 06/29/2019 09:00:00 AM [facility] albuterol (PROVENTIL HFA;VENTOLIN HFA) inhaler 2 puff 06/27/2019 04:15:17 PM [facility] tramadol hydrochloride 50 MG Oral Tablet 06/25/2019 12:00:00 AM EDT [facility] ([facility]) Lorazepam 1 MG Oral Tablet 06/22/2019 12:00:00 AM EDT [facility] ([facility]) Cyclobenzaprine hydrochloride 5 MG Oral Tablet 06/13/2019 12:00:00 AM EDT [facility] ([facility]) Cyclobenzaprine hydrochloride 5 MG Oral Tablet 06/13/2019 12:00:00 AM EDT eCW1 ([facility]) Hydroxyzine Hydrochloride 25 MG Oral Tablet 05/01/2019 12:00:00 AM EST eCW1 ([facility]) Hydroxyzine Hydrochloride 25 MG Oral Tablet 05/01/2019 12:00:00 AM EST eCW1 ([facility]) Hydroxyzine Hydrochloride 25 MG Oral Tablet 05/01/2019 12:00:00 AM EST eCW1 ([facility]) Magnolia-Sequels 65-25 MG 05/01/2019 12:00:00 AM EST eCW1 ([facility]) Omeprazole 20 MG Delayed Release Oral Capsule 05/01/2019 12:00:00 A M EST eCW1 ([facility]) Hydroxyzine Hydrochloride 25 MG Oral Tablet 05/01/2019 12:00:00 AM EST eCW1 ([facility]) 24 HR venlafaxine 150 MG Extended Release Oral Tablet 04/18/2019 12:00:00 AM EST eCW1 ([facility]) 24 HR venlafaxine 150 MG Extended Release Oral Tablet 04/18/2019 12:00:00 AM EST eCW1 ([facility]) 72 HR Fentanyl 0.075 MG/HR Transdermal Patch 07/13/2013 12:00:00 AM [facility] 200 ACTUAT Albuterol 0.09 MG/ACTUAT Metered Dose Inhal er [ProAir] 02/28/2013 12:00:00 AM EST [facility] Oxycodone Hydrochloride 30 MG Oral Tablet [facility] OxyCODONE HCl ER (OXYCONTIN) 60 MG [facility] Lorazepam 1 MG Oral Tablet [facility] Promethazine Hydrochloride 25 MG Oral Tablet [facility] Alprazolam 0.25 MG Oral Tablet [facility] Trazodone Hydrochloride 100 MG Oral Tablet [facility] Clindamycin 150 MG Oral Capsule [facility]
[2020-04-28 23:00] LABS: BASO % 0.5 % (0.0-1.0); EOS # 0.3 10^3/uL (0.0-0.5); EOS % 3.1 % (0.0-3.0); HEMATOCRIT 38.4 % (36.0-47.0); HEMOGLOBIN 12.5 g/dl (12.0-15.5); LYMPH % 34.3 % (24.0-44.0); MEAN CORPUSCULAR HEMOGLOBIN 26.9 pg (27.0-33.0); MEAN CORPUSCULAR HGB CONC 32.6 g/dl (32.0-36.5); MEAN CORPUSCULAR VOLUME 82.6 fl (80.0-96.0); MONO # 0.9 10^3/uL (0.0-0.8); MONO % 10.5 % (2.0-8.0); NEUTROPHILS # 4.5 10^3/uL (1.5-8.5); NEUTROPHILS % 51.4 % (36.0-66.0); PLATELET COUNT, AUTOMATED 303 10^3/uL (150-450); RED BLOOD COUNT 4.65 10^6/uL (4.00-5.40); WHITE BLOOD COUNT 8.8 10^3/uL (4.0-10.0)
[2020-04-28 23:28] LABS: ERYTHROCYTE SEDIMENTATION RATE 15 mm/hr (0-20)
[2020-04-28 23:40] LABS: BLOOD UREA NITROGEN 6 MG/DL (7-18); CARBON DIOXIDE LEVEL 29 MEQ/L (21-32); CHLORIDE LEVEL 103 MEQ/L (98-107); CREATININE FOR GFR 0.77 MG/DL (0.55-1.30); GLOMERULAR FILTRATION RATE > 60.0 (>58); GLUCOSE, FASTING 87 MG/DL (70-100); POTASSIUM SERUM 2.3 MEQ/L (3.5-5.1); SODIUM LEVEL 140 MEQ/L (136-145)
[2020-04-28 23:41] LABS: ALBUMIN 2.7 GM/DL (3.2-5.2); ALT/SGPT 29 U/L (12-78); BILIRUBIN,TOTAL 0.9 MG/DL (0.2-1.0); C REACTIVE PROTEIN QUANTITATIV 8.24 MG/DL (0.00-0.30); CALCIUM LEVEL 8.1 MG/DL (8.5-10.1); TOTAL PROTEIN 5.9 GM/DL (6.4-8.2)
[2020-04-28] MEDS ORDERED: SUBO8MIS SL (23:46)
[2020-04-29] VITALS: BP 118/73
[2020-04-29] MEDS ORDERED: SENOKOT S TAB PO PRN
[2020-04-29] MEDS ORDERED: hydrOXYzine 25 MG TAB PO PRN
[2020-04-29] MEDS ORDERED: ALBUTEROL 90 MCG/ACT 8GM HFA INHALER INH PRN
[2020-04-29] MEDS: NS 1,000 ML IV SCH (00:08)
[2020-04-29] MEDS: KCL 10MEQ/100ML SWI (KRUN) 10 MEQ in IV 1 EA IV SCH ×4 (00:08→09:02)
[2020-04-29] MEDS: DOXYCYCLINE HYCLATE 100 MG in D5W MINI-BAG PLUS 100 ML IV SCH ×2 (02:06→12:09)
[2020-04-29 04:00] VITALS: BP 139/87
[2020-04-29 05:27] LABS: BLOOD UREA NITROGEN 5 MG/DL (7-18); CALCIUM LEVEL 8.2 MG/DL (8.5-10.1); CARBON DIOXIDE LEVEL 29 MEQ/L (21-32); CHLORIDE LEVEL 103 MEQ/L (98-107); CREATININE FOR GFR 0.73 MG/DL (0.55-1.30); GLOMERULAR FILTRATION RATE > 60.0 (>58); GLUCOSE, FASTING 80 MG/DL (70-100); POTASSIUM SERUM 2.5 MEQ/L (3.5-5.1); SODIUM LEVEL 140 MEQ/L (136-145)
[2020-04-29 05:35] LABS: HEMATOCRIT 38.7 % (36.0-47.0); HEMOGLOBIN 12.6 g/dl (12.0-15.5); MEAN CORPUSCULAR HEMOGLOBIN 26.9 pg (27.0-33.0); MEAN CORPUSCULAR HGB CONC 32.6 g/dl (32.0-36.5); MEAN CORPUSCULAR VOLUME 82.7 fl (80.0-96.0); PLATELET COUNT, AUTOMATED 318 10^3/uL (150-450); RED BLOOD COUNT 4.68 10^6/uL (4.00-5.40)
[2020-04-29 07:47] VITALS: BP 120/66
--- NOTE | 2020-04-29 07:47 | HPEPDOC ---
General Date of Admission Apr 28, 2020 at 21:51 Date of Service: Apr 28, 2020 Chief Complaint The patient is a 49-year-old female admitted with a reason for visit of Ams- Drug Induced. Source: Patient History of Present Illness Ms. Doty is a 49 year old female with history of endocarditis, epidural abscess, and IV drug abuse who was transferred here from [place] for AMS and non-compliance to antibiotics. Patient was to be on Doxycycline, but stepmother reports noncompliance. Patient was sedated at time of evaluation. History obtained from chart from [place]. Patient had been dropped off at [place] by car. She had recently injected heroin and Bettie. Started to become combative. She was stated with Ativan. Work up was significant for WBC of 15.4. Requested patient to be transferred for ID. When I saw patient, she was sleeping comfortably. Eyes were pinpoint but reactive to light. Patient to be admitted for toxic metabolic encephalopathy and hypokalemia. Home Medications Scheduled Buprenorphine HCl/Naloxone HCl (Suboxone 8 mg-2 mg Sl Film) 1 Each Film, 1 STRIP SL BID, (Reported) Buprenorphine HCl/Naloxone HCl (Suboxone 8 mg-2 mg Sl Film) 1 Each Film, 1 STRIP SL BID, (Reported) Estradiol (Estrace) 0.5 Mg Tablet, 0.5 MG PO QHS, (Reported) Gabapentin (Gabapentin) 300 Mg Capsule, 300 MG PO TID, (Reported) Hydroxychloroquine Sulfate (Hydroxychloroquine Sulfate) 200 Mg Tablet, 200 MG PO QHS, (Reported) Meloxicam (Meloxicam) 15 Mg Tablet, 15 MG PO DAILY, (Reported) Omeprazole (Omeprazole) 40 Mg Capsule.dr, 40 MG PO QHS, (Reported) Quetiapine Fumarate (Quetiapine Fumarate) 300 Mg Tablet, 150 MG PO QHS, (Reported) Venlafaxine HCl (Venlafaxine HCl ER) 150 Mg Cap.er.24h, 150 MG PO QHS, (Reported) Scheduled PRN Albuterol Sulfate (Ventolin Hfa) 18 Gm Hfa.aer.ad, 2 PUFF INH Q6H PRN for SOB/WHEEZING, (Reported) Dicyclomine HCl (Dicyclomine HCl) 10 Mg Capsule, 10 MG PO TID PRN for ABDOMINAL PAIN, (Reported) Hydroxyzine HCl (Hydroxyzine HCl) 50 Mg Tablet, 50 MG PO BID PRN for ANXIETY, (Reported) Ondansetron HCl (Ondansetron HCl) 4 Mg Tablet, 4 MG PO QID PRN for NAUSEA OR VOMITING, (Reported) Promethazine HCl (Promethazine HCl) 25 Mg Tablet, 25 MG PO Q12H PRN for NAUSEA OR VOMITING, (Reported) Sennosides/Docusate Sodium (Senna-S Tablet) 1 Each Tablet, 1 TAB PO BID PRN for CONSTIPATION, (Reported) Allergies Coded Allergies: vancomycin (Verified Allergy, Severe, 11/30/19) Penicillins (Verified Allergy, Intermediate, RASH, 11/30/19) Sulfa (Sulfonamide Antibiotics) (Verified Allergy, Intermediate, RASH, 11/30/19) trimethoprim (Verified Allergy, Intermediate, RASH, 11/30/19) tramadol (Verified Adverse Reaction, Intermediate, ITCHING, URINARY RETENTION, 11/30/19) Past Medical History Medical History 1. Endocarditis 2. Acromioclavicular infection 3. Depression 4. Left sternoclavicular and left shoulder pain 5. Insomnia 6. Hepatitis C 7. MRSA bacteremia with epidural abscess s/p I&D on 06/24/2019 8. Vertebral osteomyelitis 9. Tricuspid valve vegetation 10. IV drug abuse Surgical History 1. 2. Gallbladder 3. Hernia 4. Neck and back surgery Family History Unable to obtain as sedated Social History * Smoker: current smoker (Per chart) Alcohol: Denies (Per chart) Drugs: IV drug use (Heroin) A-FIB/CHADSVASC A-FIB History Current/History of A-Fib/PAF?: No Review of Systems Other systems Unable to obtain as sedated Physical Examination General Exam: Positive: No Acute Distress; Negative: Alert, Cooperative Eye Exam: Positive: Other Eye Symptoms (Pin point but reactive) Chest Exam: Positive: Clear to auscultation Heart Exam: Positive: Rate Normal, Regular Rhythm Abdomen Exam: Positive: Normal bowel sounds, Soft Extremity Exam: Negative: Edema Neuro Exam: Positive: Other (unable to obtain as sedated) Psych Exam: Negative: Mental status NL Vital Signs Vital Signs Date Time Temp Pulse Resp B/P (MAP) Pulse Ox O2 Delivery O2 Flow Rate FiO2 04/29/20 04:00 97.7 105 19 139/87 (104) 94 Room Air Laboratory Data Labs 24H Laboratory Tests 2 04/28/20 22:47: Immature Granulocyte % (Auto) 0.2, Neutrophils (%) (Auto) 51.4, Lymphocytes (%) (Auto) 34.3, Monocytes (%) (Auto) 10.5H, Eosinophils (%) (Auto) 3.1H, Basophils (%) (Auto) 0.5, Neutrophils # (Auto) 4.5, Lymphocytes # (Auto) 3.0, Monocytes # (Auto) 0.9H, Eosinophils # (Auto) 0.3, Basophils # (Auto) 0.0, Nucleated Red Blood Cells % (auto) 0.0, Erythrocyte Sedimentation Rate 15, Anion Gap 8, Glomerular Filtration Rate > 60.0, Lactic Acid Level 1.1, Calcium Level 8.1L, Magnesium Level 2.0, Total Bilirubin 0.9, Aspartate Amino Transf (AST/SGOT) 39H, Alanine Aminotransferase (ALT/SGPT) 29, Alkaline Phosphatase 112, C-Reactive Protein, Quantitative 8.24H, Total Protein 5.9L, Albumin 2.7L, Albumin/Globulin Ratio 0.8L 04/29/20 04:31: Nucleated Red Blood Cells % (auto) 0.0, Anion Gap 8, Glomerular Filtration Rate > 60.0, Calcium Level 8.2L CBC/BMP Laboratory Tests 04/28/20 22:47 04/29/20 04:31 Microbiology Microbiology 04/28/20 Blood Culture, Received Pending 04/28/20 Blood Culture, Received Pending Assessment/Plan Ms. Doty is a 49 year old female with history of endocarditis, epidural abscess, and IV drug abuse who was transferred here from [place] for AMS and non-compliance to antibiotics. WBC was elevated, will order blood cultures and restart doxycycline. Otherwise, will give IV potassium as patient is not awake enough at this time for PO. Plan / VTE VTE Prophylaxis Ordered?: Yes Plan Plan 1. IV drug abuse with heroin -Patient is stable, has not gone into respiratory distress -Supportive care -Continue Suboxone 2. History of endocarditis, epidural abscess, and osteomyelitis -Stepmother reports non-compliance to doxycycline -Restart doxycycline after obtaining 2 blood cultures 3. Rheumatoid arthritis -Continue hydroxychloroquine 4. Hypokalemia -4kruns -Anticipate will need more -Magnesium normal at 2 5. DVT ppx -Lovenox CLAYTON GARCIA DO Apr 29, 2020 07:47
[2020-04-29] MEDS ORDERED: POTASSIUM CHLORIDE 10 MEQ SR TABLET PO ONE (09:00)
[2020-04-29] MEDS: GABAPENTIN 300 MG CAP PO SCH ×4 (09:00→21:00)
[2020-04-29] MEDS: MELOXICAM (MOBIC) 7.5 MG TAB PO SCH ×2 (09:00→09:04)
[2020-04-29] MEDS: ENOXAPARIN 40MG/0.4ML SYRINGE (J1650 PER 10MG) SC SCH (09:02)
[2020-04-29] MEDS: BUPRENORPHINE/NALOXONE 8-2MG SUBLINGUAL TABLET(SUBOXONE) SL SCH ×3 (09:04→20:24)
[2020-04-29 09:14] LABS: PHOSPHORUS LEVEL 2.9 MG/DL (2.5-4.9)
[2020-04-29] MEDS ORDERED: KCL 10MEQ/100ML SWI (KRUN) 10 MEQ in IV 1 EA IV SCH (10:00)
--- NOTE | 2020-04-29 11:46 | IPNPDOC ---
Date Seen The patient was seen on 04/29/20. Progress Note SUBJECTIVE: Patient seen in the morning, sleeping in bed, easily wakes up to localized tactile stimuli, able to answer questions appropriately and follow commands at this time. She reports injecting herself with heroin one to 2 days ago. She does not have a good recollection of what happened over the past few days, unable to provide information regarding her recent infection/treatment or any other issues at this time. She appears to be sedated from medications she may have abused in the outpatient setting or Ativan received prior to transfer. PHYSICAL EXAMINATION: VITAL SIGNS: Please see below. GENERAL: Frail, cachectic HEENT: moist mucous membranes CARDIOVASCULAR EXAMINATION: Tachycardic, no murmurs appreciated at this time RESPIRATORY EXAMINATION: Diminished in the bases, no wheezing ABDOMINAL EXAMINATION: Soft, nontender, nondistended, positive bowel sounds EXTREMITIES: No edema SKIN: Multiple bruises and track perez noted NEUROLOGICAL EXAMINATION: Unable to assess LABORATORY DATA, IMAGING STUDIES, MICROBIOLOGY: Please see below. ASSESSMENT AND PLAN: 49-year-old female with past medical history of osteomyelitis, endocarditis, IV drug abuse, epidural abscess, who was nonco mpliant with her outpatient antibiotics is admitted for sedation due to IV drug use and treatment for infection. PROBLEMS: 1. MRSA infection: Patient has a history of osteomyelitis, endocarditis, epidural abscess, all likely related to history of IV drug abuse. She was supposed be taking doxycycline in the outpatient setting for MRSA treatment, unsure as to where her current/recent infection is located. She is afebrile at this time, no obvious signs of specific infection at this time. We'll keep a close monitoring, blood cultures pending. We'll continue doxycycline for now, we'll consider broadening antibiotic regimen if there is suspicion for something else going on. Will keep a low threshold for further infectious workup including echocardiogram, CT chest to assess for septic emboli, etc. Her current presentation could be explained by drug abuse, so will monitor patient for now until the drugs have been cleared by her body. 2.. Hypokalemia. Unsure if patient had significant vomiting, losses from other sources. Patient appears very malnourished, cannot remember the last time she ate anything. Continue potassium supplementation via IV, will repeat labs in the afternoon and provide further supplementation as needed. 3. Malnourished. Significant protein calorie malnutrition, too sleepy to tolerate anything by mouth currently, we'll reassess tomorrow. Continue IV fluids. 4. IV drug abuse. Heroin Continue Suboxone DVT prophylaxis: Lovenox. GI prophylaxis: PPI VS, I&O, 24H, Fishbone Vital Signs/I&O Vital Signs Date Time Temp Pulse Resp B/P (MAP) Pulse Ox O2 Delivery O2 Flow Rate FiO2 04/29/20 07:47 98.8 78 18 120/66 (84) 97 Room Air I&O- Last 24 Hours up to 6 AM 04/29/20 06:00 Intake Total 720 ml Balance 720 ml Laboratory Data 24H LABS Laboratory Tests 2 04/28/20 22:47: Immature Granulocyte % (Auto) 0.2, Neutrophils (%) (Auto) 51.4, Lymphocytes (%) (Auto) 34.3, Monocytes (%) (Auto) 10.5H, Eosinophils (%) (Auto) 3.1H, Basophils (%) (Auto) 0.5, Neutrophils # (Auto) 4.5, Lymphocytes # (Auto) 3.0, Monocytes # (Auto) 0.9H, Eosinophils # (Auto) 0.3, Basophils # (Auto) 0.0, Nucleated Red Blood Cells % (auto) 0.0, Erythrocyte Sedimentation Rate 15, Anion Gap 8, Glomerular Filtration Rate > 60.0, Lactic Acid Level 1.1, Calcium Level 8.1L, Magnesium Level 2.0, Total Bilirubin 0.9, Aspartate Amino Transf (AST/SGOT) 39H, Alanine Aminotransferase (ALT/SGPT) 29, Alkaline Phosphatase 112, C-Reactive Protein, Quantitative 8.24H, Total Protein 5.9L, Albumin 2.7L, Albumin/Globulin Ratio 0.8L 04/29/20 04:31: Nucleated Red Blood Cells % (auto) 0.0, Anion Gap 8, Glomerular Filtration Rate > 60.0, Calcium Level 8.2L, Phosphorus Level 2.9 CBC/BMP Laboratory Tests 04/28/20 22:47 04/29/20 04:31 Microbiology Microbiology 04/28/20 Blood Culture, Received Pending 04/28/20 Blood Culture, Received Pending GABRIELLA CAI MD Apr 29, 2020 11:46
[2020-04-29 12:00] VITALS: BP 121/76
[2020-04-29] MEDS ORDERED: LORazepam 2 MG/ML VIAL IV STA (12:32)
[2020-04-29] MEDS ORDERED: KCL 10MEQ/100ML SWI (KRUN) 10 MEQ in IV 1 EA IV ONE (13:30)
--- NOTE | 2020-04-29 13:30 | REP ---
INDICATION: central line placement. COMPARISON: 02/27/2020. TECHNIQUE: SINGLE PORTABLE AP VIEW OF THE CHEST WAS PERFORMED. FINDINGS: There is a right jugular central venous catheter with the tip in the superior vena cava. There is no pneumothorax. Metallic hardware is seen in the lower cervical spine. No infiltrate is seen in either lung. The heart and mediastinum are within normal limits. Metallic clips are seen in the right upper quadrant of the abdomen. IMPRESSION: Right central venous catheter with tip in the superior vena cava. No pneumothorax or infiltrate. <Electronically signed by Josué Ramirez > 04/29/20 [id number]
[2020-04-29] MEDS: KCL 20MEQ IN 100ML SWI (KRUN) 20 MEQ in IV 1 EA IV SCH ×4 (14:25→15:32)
[2020-04-29 16:00] VITALS: BP 129/87
--- NOTE | 2020-04-29 18:19 | REPVR ---
PROCEDURE INFORMATION: Exam: CT Chest Without Contrast; Diagnostic Exam date and time: 04/29/2020 5:28 PM Age: 49 years old Clinical indication: Other: Assess for pulmonary infarct TECHNIQUE: Imaging protocol: Diagnostic computed tomography of the chest without contrast. 3D rendering (Not supervised by radiologist): MIP and/or 3D reconstructed images were created by the technologist. Radiation optimization: All CT scans at this facility use at least one of these dose optimization techniques: automated exposure control; mA and/or kV adjustment per patient size (includes targeted exams where dose is matched to clinical indication); or iterative reconstruction. COMPARISON: CT Chest without contrast 03/21/2020 6:22 PM FINDINGS: Tubes, catheters and devices: Right approach central venous catheter with its tip in the superior vena cava. Lungs: There is interval resolution of most of the ground-glass opacities in bilateral lungs. A residual small focus of ground-glass opacification remains in the left lung base. Pleural spaces: Unremarkable. No pneumothorax. No pleural effusion. Heart: Unremarkable. No cardiomegaly. No pericardial effusion. Aorta: Unremarkable. No aortic aneurysm. Lymph nodes: Unremarkable. No enlarged lymph nodes. Bones/joints: Anterior cervical spinal fixation hardware. Soft tissues: Unremarkable. IMPRESSION: Interval resolution of most of the ground-glass opacities in bilateral lungs with a small focus of residual ground-glass opacity in the left lung base. Electronically signed by: Manfred Azul On 04/29/2020 18:20:18 PM
[2020-04-29] MEDS ORDERED: SODIUM CHLORIDE 0.9% INJ 10 ML SYR IV PRN (18:30)
[2020-04-29 20:00] VITALS: BP 129/76
[2020-04-29] MEDS: QUEtiapine FUMARATE 50MG TAB PO SCH (20:17)
[2020-04-29] MEDS: HYDROXYCHLOROQUINE 200 MG TAB PO SCH (20:17)
[2020-04-29] MEDS: OMEPRAZOLE 20 MG CAP PO SCH (20:17)
[2020-04-29] MEDS: VENLAFAXINE **XR** 75MG CAPSULE PO SCH (20:17)
[2020-04-29] MEDS: SODIUM CHLORIDE 0.9% INJ 10 ML SYR IV SCH (20:24)
[2020-04-29 21:02] LABS: BLOOD UREA NITROGEN 4 MG/DL (7-18); CALCIUM LEVEL 8.2 MG/DL (8.5-10.1); CARBON DIOXIDE LEVEL 30 MEQ/L (21-32); CHLORIDE LEVEL 107 MEQ/L (98-107); GLOMERULAR FILTRATION RATE > 60.0 (>58); GLUCOSE, FASTING 68 MG/DL (70-100); POTASSIUM SERUM 3.3 MEQ/L (3.5-5.1); SODIUM LEVEL 143 MEQ/L (136-145)
[2020-04-30] VITALS: BP 112/62
[2020-04-30] MEDS: DOXYCYCLINE HYCLATE 100 MG in D5W MINI-BAG PLUS 100 ML IV SCH ×2 (00:08→14:17)
[2020-04-30] MEDS: NS 1,000 ML IV SCH (03:39)
[2020-04-30 04:00] VITALS: BP 118/74
[2020-04-30 05:42] LABS: HEMATOCRIT 36.1 % (36.0-47.0); HEMOGLOBIN 11.6 g/dl (12.0-15.5); MEAN CORPUSCULAR HEMOGLOBIN 27.3 pg (27.0-33.0); MEAN CORPUSCULAR HGB CONC 32.1 g/dl (32.0-36.5); MEAN CORPUSCULAR VOLUME 84.9 fl (80.0-96.0); PLATELET COUNT, AUTOMATED 292 10^3/uL (150-450); RED BLOOD COUNT 4.25 10^6/uL (4.00-5.40); WHITE BLOOD COUNT 5.4 10^3/uL (4.0-10.0)
[2020-04-30 06:21] LABS: BLOOD UREA NITROGEN 4 MG/DL (7-18); CALCIUM LEVEL 7.8 MG/DL (8.5-10.1); CARBON DIOXIDE LEVEL 29 MEQ/L (21-32); CHLORIDE LEVEL 110 MEQ/L (98-107); CREATININE FOR GFR 0.67 MG/DL (0.55-1.30); GLOMERULAR FILTRATION RATE > 60.0 (>58); GLUCOSE, FASTING 83 MG/DL (70-100); POTASSIUM SERUM 3.2 MEQ/L (3.5-5.1); SODIUM LEVEL 146 MEQ/L (136-145)
[2020-04-30] MEDS: SODIUM CHLORIDE 0.9% INJ 10 ML SYR IV SCH ×3 (06:41→21:20)
[2020-04-30 08:00] VITALS: BP 124/74
[2020-04-30] MEDS: KCL 10MEQ/100ML SWI (KRUN) 10 MEQ in IV 1 EA IV SCH ×2 (08:26→10:32)
--- NOTE | 2020-04-30 09:21 | ECHO ---
DATE OF PROCEDURE: 04/29/2020 Age: 49 Gender: Female Height: 144 cm Weight: 38 kg REFERRING PHYSICIAN: GABRIELLA CAI MD INDICATION: Endocarditis. MEASUREMENTS: IVS 0.7 cm LV 3.5 cm LVPW 0.8 cm LA 2.3 cm Aorta 3.0 cm RV 2.6 cm IVC 1.2 cm DOPPLER MEASUREMENT Mitral E wave velocity 79 Mitral A wave 74 E prime septal 7.5 E prime lateral 9.3 FINDINGS: This study is of good technical quality. The patient is in sinus rhythm. Left ventricle has normal size and systolic function with estimated EF approximately 60% to 65%. I do not appreciate any segmental wall motion abnormalities. Right ventricle is also normal size and systolic function. Both atria appear normal. Aortic, mitral, and pulmonic valves appear normal. There is some thickening of the septal cusp of tricuspid valve with possible vegetation, even though it was poorly visualized. No pericardial effusion is noted. Inferior vena cava has normal size. Aortic root, aortic arch, and visualized segment of abdominal aorta appear normal. Doppler interrogation reveals no aortic stenosis or insufficiency. There is trace mitral insufficiency and mild tricuspid insufficiency. Calculated pulmonary artery pressure is around 30 mmHg, which is in upper limits of normal values. Pulmonic valve is functionally competent. Mitral inflow pattern and tissue Doppler imaging of the mitral annulus revealed normal diastolic function. CONCLUSIONS: 1. Study is of good technical quality. The patient is in sinus rhythm. 2. Normal LV size, systolic, and diastolic function. 3. Normal RV size and systolic function. 4. Possible vegetation on septal cusp of tricuspid valve with resulting mild tricuspid insufficiency. 5. Normal central venous pressure and probably normal or mildly elevated pulmonary artery pressure. 6. Compared to echocardiogram from 03/22/2020, the vegetation of the tricuspid valve is much less apparent on todays study and most likely diminished significantly in size. MTDD
[2020-04-30] MEDS: BUPRENORPHINE/NALOXONE 8-2MG SUBLINGUAL TABLET(SUBOXONE) SL SCH ×2 (10:31→21:19)
[2020-04-30] MEDS: GABAPENTIN 300 MG CAP PO SCH ×3 (10:31→21:19)
[2020-04-30] MEDS: MELOXICAM (MOBIC) 7.5 MG TAB PO SCH (10:31)
[2020-04-30] MEDS: ENOXAPARIN 40MG/0.4ML SYRINGE (J1650 PER 10MG) SC SCH (10:31)
--- NOTE | 2020-04-30 12:17 | IPNPDOC ---
Subjective Date Seen The patient was seen on 04/30/20. Subjective Chief Complaint/HPI patient somnolent but easily arousable. Knows where she is, Does nt offer any complaints. Objective Physical Examination General Exam: Positive: Cooperative, No Acute Distress, Other (somnolent) Eye Exam: Positive: Other Eye Symptoms (Pin point but reactive) ENT Exam: Positive: Atraumatic, Mucous membr. moist/pink, Pharynx Normal Neck Exam: Positive: Supple; Negative: JVD, thyromegaly Chest Exam: Positive: Clear to auscultation, Normal air movement Heart Exam: Positive: Rate Normal, Regular Rhythm, Normal S1, Normal S2; Negative: Murmurs, Rubs Abdomen Exam: Positive: Normal bowel sounds, Soft; Negative: Tenderness, Hepatospenomegaly Extremity Exam: Negative: Clubbing, Cyanosis, Edema Skin Exam: Positive: Other skin issue (track perez in all limbs, healed ulcers) Neuro Exam: Positive: Other (unable to obtain as sedated) Assessment /Plan Assessment Ms. Doty is a 49 year old female with history of endocarditis, epidural abscess, and IV drug abuse who was transferred here from [place] for AMS. Patient had been dropped off at [place] by car. She had recently injected heroin and Tamy. Started to become combative. She was sedated with Ativan. Work up was significant for WBC of 15.4. Requested patient to be transferred to [facility] for ID. Patient is non-compliant with antibiotics. Acute metabolic encephalopathy form IV drug use, recreational still somnolent however more awake than yesterday as per staff. Able to tell me where she is then again falling asleep. IV drug abuse with heroin/tamy on subaxone as outpatient will continue MRSA infection Tricuspid Valve endocarditis, epidural abscess, and osteomyelitis Seen by ID . No active infectious process at present. on lifelong suppressive therapy with doxycycline. Stepmother reports non-compliance to doxycycline Echo from 04/29 TV vegetation smaller in size compared to march Rheumatoid arthritis hydroxychloroquine Hypokalemia replaced DVT ppx Lovenox Plan/VTE VTE Prophylaxis Ordered?: Yes VS, I&O, 24H, Fishbone Vital Signs/I&O Vital Signs Date Time Temp Pulse Resp B/P (MAP) Pulse Ox O2 Delivery O2 Flow Rate FiO2 04/30/20 08:00 97.6 93 18 124/74 (91) 95 Room Air I&O- Last 24 Hours up to 6 AM 04/30/20 06:00 Intake Total 2020 ml Output Total 800 ml Balance 1220 ml Laboratory Data 24H LABS Laboratory Tests 2 04/29/20 17:00: Urine Color YELLOW, Urine Appearance CLEAR, Urine pH 6.0, Urine Specific [place] 1.009, Urine Protein NEGATIVE, Urine Glucose (UA) NEGATIVE, Urine Ketones 1+H, Urine Blood 1+H, Urine Nitrite NEGATIVE, Urine Bilirubin NEGATIVE, Urine Urobilinogen 2.0H, Urine Leukocyte Esterase TRACEH, Urine WBC (Auto) 2, Urine RBC (Auto) 72H, Urine Hyaline Casts (Auto) 0, Urine Bacteria (Auto) NEGATIVE, Urine Squamous Epithelial Cells 2, Urine Mucus (Auto) SMALL, Urine Sperm (Auto) 04/29/20 20:14: Anion Gap 6L, Glomerular Filtration Rate > 60.0, Calcium Level 8.2L 04/30/20 05:28: Anion Gap 7L, Glomerular Filtration Rate > 60.0, Calcium Level 7.8L, Nucleated Red Blood Cells % (auto) 0.0 CBC/BMP Laboratory Tests 04/29/20 20:14 04/30/20 05:28 Microbiology Microbiology 04/29/20 Urine Culture, Received Pending 04/28/20 Blood Culture - Preliminary, Resulted No growth after 24 hours . All specim... 04/28/20 Blood Culture - Preliminary, Resulted No growth after 24 hours . All specim... ORAL TORIBIO MD Apr 30, 2020 12:17
[2020-04-30 20:00] VITALS: BP 139/99
[2020-04-30] MEDS: OMEPRAZOLE 20 MG CAP PO SCH (21:19)
[2020-04-30] MEDS: QUEtiapine FUMARATE 50MG TAB PO SCH (21:19)
[2020-04-30] MEDS: VENLAFAXINE **XR** 75MG CAPSULE PO SCH (21:19)
[2020-04-30] MEDS: HYDROXYCHLOROQUINE 200 MG TAB PO SCH (21:19)
[2020-05-01] VITALS: BP 137/90
[2020-05-01] MEDS: DOXYCYCLINE HYCLATE 100 MG in D5W MINI-BAG PLUS 100 ML IV SCH ×2 (00:47→11:16)
[2020-05-01 04:00] VITALS: BP 118/77
[2020-05-01] MEDS: SODIUM CHLORIDE 0.9% INJ 10 ML SYR IV SCH (05:47)
[2020-05-01 07:51] VITALS: BP 126/86
[2020-05-01 09:02] LABS: BLOOD UREA NITROGEN 8 MG/DL (7-18); CALCIUM LEVEL 8.3 MG/DL (8.5-10.1); CARBON DIOXIDE LEVEL 28 MEQ/L (21-32); CHLORIDE LEVEL 112 MEQ/L (98-107); CREATININE FOR GFR 0.59 MG/DL (0.55-1.30); GLOMERULAR FILTRATION RATE > 60.0 (>58); GLUCOSE, FASTING 68 MG/DL (70-100); POTASSIUM SERUM 4.1 MEQ/L (3.5-5.1); SODIUM LEVEL 145 MEQ/L (136-145)
[2020-05-01] MEDS: MELOXICAM (MOBIC) 7.5 MG TAB PO SCH (09:21)
[2020-05-01] MEDS: GABAPENTIN 300 MG CAP PO SCH (09:21)
[2020-05-01] MEDS: BUPRENORPHINE/NALOXONE 8-2MG SUBLINGUAL TABLET(SUBOXONE) SL SCH (09:21)
[2020-05-01] MEDS: ENOXAPARIN 40MG/0.4ML SYRINGE (J1650 PER 10MG) SC SCH (09:21)
[2020-05-01] MEDS ORDERED: DOXY-350 PO (12:09)
--- NOTE | 2020-05-01 21:18 | DS.PDOC ---
Discharge Summary General Date of Admission Apr 28, 2020 at 21:51 Date of Discharge 05/01/20 Discharge Summary PROCEDURES PERFORMED DURING STAY: [None]. DISCHARGE DIAGNOSES: Acute metabolic encephalopathy due to recreational drug use. IV drug abuse with heroin/tamy H/O MRSA Tricuspid Valve endocarditis, epidural abscess, and osteomyelitis on lifelong antibiotic suppression RA Hypokalemia COMPLICATIONS/CHIEF COMPLAINT: Ams- Drug Induced. HOSPITAL COURSE: Ms. Doty is a 49 year old female with history of endocarditis, epidural abscess, and IV drug abuse who was transferred here from [place] for AMS. Patient had been dropped off at [place] by car. She had recently injected heroin and Tamy. Started to become combative. She was sedated with Ativan. Work up was significant for WBC of 15.4. Requested patient to be transferred to [facility] for ID. Patient is non-compliant with antibiotics. Acute metabolic encephalopathy form IV drug use, recreational still somnolent however more awake than yesterday as per staff. Able to tell me where she is then again falling asleep. IV drug abuse with heroin/tamy on subaxone as outpatient will continue MRSA infection Tricuspid Valve endocarditis, epidural abscess, and osteomyelitis Seen by ID . No active infectious process at present. on lifelong suppressive therapy with doxycycline. Stepmother reports non-compliance to doxycycline Echo from 04/29 TV vegetation smaller in size compared to march Rheumatoid arthritis hydroxychloroquine Hypokalemia replaced DISCHARGE MEDICATIONS: Please see below. ALLERGIES: Please see below. PHYSICAL EXAMINATION ON DISCHARGE: VITAL SIGNS: Please see below. General Exam: Positive: Cooperative, No Acute Distress, awake and alert Eye Exam: Positive: MELINDA, anicteric, EOMI ENT Exam: Positive: Atraumatic, Mucous membr. moist/pink, Pharynx Normal Neck Exam: Positive: Supple; Negative: JVD, thyromegaly Chest Exam: Positive: Clear to auscultation, Normal air movement Heart Exam: Positive: Rate Normal, Regular Rhythm, Normal S1, Normal S2; Negative: Murmurs, Rubs Abdomen Exam: Positive: Normal bowel sounds, Soft; Negative: Tenderness, Hepatosplenomegaly Extremity Exam: Negative: Clubbing, Cyanosis, Edema Skin Exam: Positive: Other skin issue (track perez in all limbs, healed ulcers) Neuro Exam: Positive: Other (unable to obtain as sedated) LABORATORY DATA: Please see below. ACTIVITY: [As tolerated]. DIET: Regular DISPOSITION: 01 Home, Self-Care. DISCHARGE INSTRUCTIONS: Follow up PMD in 1 week DISCHARGE CONDITION: [Stable]. TIME SPENT ON DISCHARGE: 35 minutes. Vital Signs/I&Os Vital Signs Date Time Temp Pulse Resp B/P (MAP) Pulse Ox O2 Delivery O2 Flow Rate FiO2 05/01/20 07:51 96.9 94 16 126/86 (99) 97 Room Air I&O- Last 24 Hours up to 6 AM 05/01/20 07:00 Intake Total 0 ml Output Total 0 ml Balance 0 ml Laboratory Data Labs 24H Laboratory Tests 2 05/01/20 07:49: Anion Gap 5L, Glomerular Filtration Rate > 60.0, Calcium Level 8.3L CBC/BMP Laboratory Tests 05/01/20 07:49 Microbiology Microbiology 04/29/20 Urine Culture, Received Pending 04/28/20 Blood Culture - Preliminary, Resulted No Growth after 48 hours. All Specime... 04/28/20 Blood Culture - Preliminary, Resulted No Growth after 48 hours. All Specime... Discharge Medications Scheduled Buprenorphine HCl/Naloxone HCl (Suboxone 8 mg-2 mg Sl Film) 1 Each Film, 1 STRIP SL BID, (Reported) Buprenorphine HCl/Naloxone HCl (Suboxone 8 mg-2 mg Sl Film) 1 Each Film, 1 STRIP SL BID, (Reported) Doxycycline Monohydrate (Doxycycline) 100 Mg Capsule, 100 MG PO BID Estradiol (Estrace) 0.5 Mg Tablet, 0.5 MG PO QHS, (Reported) Gabapentin (Gabapentin) 300 Mg Capsule, 300 MG PO TID, (Reported) Hydroxychloroquine Sulfate (Hydroxychloroquine Sulfate) 200 Mg Tablet, 200 MG PO QHS, (Reported) Meloxicam (Meloxicam) 15 Mg Tablet, 15 MG PO DAILY, (Reported) Omeprazole (Omeprazole) 40 Mg Capsule.dr, 40 MG PO QHS, (Reported) Quetiapine Fumarate (Quetiapine Fumarate) 300 Mg Tablet, 150 MG PO QHS, (Reported) Venlafaxine HCl (Venlafaxine HCl ER) 150 Mg Cap.er.24h, 150 MG PO QHS, (Reported) Scheduled PRN Albuterol Sulfate (Ventolin Hfa) 18 Gm Hfa.aer.ad, 2 PUFF INH Q6H PRN for SOB/WHEEZING, (Reported) Dicyclomine HCl (Dicyclomine HCl) 10 Mg Capsule, 10 MG PO TID PRN for ABDOMINAL PAIN, (Reported) Hydroxyzine HCl (Hydroxyzine HCl) 50 Mg Tablet, 50 MG PO BID PRN for ANXIETY, (Reported) Ondansetron HCl (Ondansetron HCl) 4 Mg Tablet, 4 MG PO QID PRN for NAUSEA OR VOMITING, (Reported) Promethazine HCl (Promethazine HCl) 25 Mg Tablet, 25 MG PO Q12H PRN for NAUSEA OR VOMITING, (Reported) Sennosides/Docusate Sodium (Senna-S Tablet) 1 Each Tablet, 1 TAB PO BID PRN for CONSTIPATION, (Reported) Allergies Coded Allergies: vancomycin (Verified Allergy, Severe, 11/30/19) Penicillins (Verified Allergy, Intermediate, RASH, 11/30/19) Sulfa (Sulfonamide Antibiotics) (Verified Allergy, Intermediate, RASH, 11/30/19) trimethoprim (Verified Allergy, Intermediate, RASH, 11/30/19) tramadol (Verified Adverse Reaction, Intermediate, ITCHING, URINARY RETENTION, 11/30/19) ORAL TORIBIO MD May 01, 2020 21:18
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
--- NOTE | 2020-05-02 23:52 | ECGEPIP ---
[facility] Test Date: 2020-04-29 Pat Name: MYLES BLACKWELL Department: Room: [place] [address] Gender: Female Manager Special Events: : 1970 Requested By: CLAYTON Mann Order Number: [id number] Reading MD: Jose Burk Measurements Intervals [place] Rate: 100 P: 70 [place]: 106 QRS: 63 QRSD: 80 T: 20 QT: 406 QTc: 523 Interpretive Statements Sinus rhythm with short [place] Compared to prior tracings(2) in the system, no significant changes Electronically Signed on 05-02-2020 23:52:03 EST by Jose Burk
== END 2020-05-01 12:51 | disposition home or self-care (01) | DRG 52 ==
LOC: M PCU 21:51
PROVIDERS: ADMIT Internal Medicine; ATTEND Internal Medicine Nephrology
DX: G92 Toxic encephalopathy (principal); F32.9 Major depressive disorder, single episode, unspecified; E87.6 Hypokalemia; F11.10 Opioid abuse, uncomplicated; M06.9 Rheumatoid arthritis, unspecified; Z79.899 Other long term (current) drug therapy; Z88.0 Allergy status to penicillin; Z88.2 Allergy status to sulfonamides; Z88.8 Allergy status to other drugs, medicaments and biological substances; Z91.14 Patient's other noncompliance with medication regimen; G47.00 Insomnia, unspecified; F17.200 Nicotine dependence, unspecified, uncomplicated

== ENCOUNTER → 2020-06-17 | Outpatient (REF) | payer OTHER ==
[~2020-06-17] MED LIST changes: +DOXY-350 PO
[2020-06-17 15:38] LABS: APPEARANCE, URINE CLEAR (CLEAR); BACTERIA, URINE AUTO NEGATIVE (NEGATIVE); BILIRUBIN, URINE AUTO NEGATIVE (NEGATIVE); BLOOD, URINE BLOOD 1+ (NEGATIVE); COLOR, URINE YELLOW (YELLOW); GLUCOSE, URINE (UA) AUTO NEGATIVE (NEGATIVE); KETONE, URINE AUTO NEGATIVE (NEGATIVE); LEUKOCYTE ESTERASE, URINE AUTO NEGATIVE (NEGATIVE); NITRITE, URINE AUTO NEGATIVE (NEGATIVE); PROTEIN, URINE AUTO NEGATIVE (NEGATIVE); RBC, URINE AUTO 4 /HPF (0-3); SPECIFIC GRAVITY URINE AUTO 1.008 (1.002-1.035); SQUAMOUS EPITHELIAL CELL UR AU 1 /HPF (0-6); UROBILINOGEN, URINE AUTO 0.2 mg/dL (0.0-2.0); WBC, URINE AUTO 0 /HPF (0-3)
[2020-06-17 16:01] LABS: BASO % 0.4 % (0.0-1.0); EOS # 0.5 10^3/uL (0.0-0.5); EOS % 5.6 % (0.0-3.0); HEMATOCRIT 36.7 % (36.0-47.0); HEMOGLOBIN 11.8 g/dl (12.0-15.5); LYMPH # 2.5 10^3/uL (1.5-5.0); LYMPH % 26.2 % (24.0-44.0); MEAN CORPUSCULAR HEMOGLOBIN 27.4 pg (27.0-33.0); MEAN CORPUSCULAR HGB CONC 32.2 g/dl (32.0-36.5); MEAN CORPUSCULAR VOLUME 85.3 fl (80.0-96.0); MONO # 0.5 10^3/uL (0.0-0.8); NEUTROPHILS % 62.4 % (36.0-66.0); PLATELET COUNT, AUTOMATED 362 10^3/uL (150-450); WHITE BLOOD COUNT 9.7 10^3/uL (4.0-10.0)
[2020-06-17 16:28] LABS: ALBUMIN 3.1 GM/DL (3.2-5.2); ALT/SGPT 18 U/L (12-78); BILIRUBIN,TOTAL 0.2 MG/DL (0.2-1.0); BLOOD UREA NITROGEN 11 MG/DL (7-18); C REACTIVE PROTEIN QUANTITATIV 1.71 MG/DL (0.00-0.30); CALCIUM LEVEL 9.1 MG/DL (8.5-10.1); CARBON DIOXIDE LEVEL 29 MEQ/L (21-32); CHLORIDE LEVEL 104 MEQ/L (98-107); CREATININE FOR GFR 0.73 MG/DL (0.55-1.30); GLOMERULAR FILTRATION RATE > 60.0 (>58); GLUCOSE, FASTING 116 MG/DL (70-100); POTASSIUM SERUM 4.1 MEQ/L (3.5-5.1); SODIUM LEVEL 138 MEQ/L (136-145); TOTAL PROTEIN 6.5 GM/DL (6.4-8.2)
[2020-06-17 16:32] LABS: ERYTHROCYTE SEDIMENTATION RATE 127 mm/hr (0-20)
== END ==
LOC: M SFHCPLAZ 14:22
PROVIDERS: ATTEND Internal Medicine Infectious Disease
DX: I07.9 Rheumatic tricuspid valve disease, unspecified (principal)

== ENCOUNTER → 2020-06-28 | Outpatient (CLI) | payer OTHER ==
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
== END ==
LOC: M SOG 08:25
PROVIDERS: ATTEND Orthopaedic Surgery Sports Medicine
DX: M31.1 Thrombotic microangiopathy (principal); M25.541 Pain in joints of right hand; M79.642 Pain in left hand; M19.031 Primary osteoarthritis, right wrist; M19.032 Primary osteoarthritis, left wrist

== ENCOUNTER → 2020-07-02 | Outpatient (REF) | payer OTHER ==
[2020-07-02 15:20] LABS: BASO # 0.1 10^3/uL (0.0-0.2); BASO % 0.6 % (0.0-1.0); EOS # 0.4 10^3/uL (0.0-0.5); EOS % 4.9 % (0.0-3.0); HEMATOCRIT 44.8 % (36.0-47.0); HEMOGLOBIN 14.5 g/dl (12.0-15.5); LYMPH # 2.2 10^3/uL (1.5-5.0); LYMPH % 27.8 % (24.0-44.0); MEAN CORPUSCULAR HEMOGLOBIN 27.9 pg (27.0-33.0); MEAN CORPUSCULAR HGB CONC 32.4 g/dl (32.0-36.5); MEAN CORPUSCULAR VOLUME 86.2 fl (80.0-96.0); MONO # 0.4 10^3/uL (0.0-0.8); MONO % 5.2 % (2.0-8.0); NEUTROPHILS # 4.9 10^3/uL (1.5-8.5); PLATELET COUNT, AUTOMATED 441 10^3/uL (150-450)
[2020-07-02 15:54] LABS: ALT/SGPT 17 U/L (12-78); BILIRUBIN,TOTAL 0.3 MG/DL (0.2-1.0); BLOOD UREA NITROGEN 15 MG/DL (7-18); C REACTIVE PROTEIN QUANTITATIV 2.28 MG/DL (0.00-0.30); CALCIUM LEVEL 9.7 MG/DL (8.5-10.1); CARBON DIOXIDE LEVEL 29 MEQ/L (21-32); CHLORIDE LEVEL 103 MEQ/L (98-107); COMPLEMENT C3 122 MG/DL (90-180); COMPLEMENT C4 30 MG/DL (10-40); CREATININE FOR GFR 0.73 MG/DL (0.55-1.30); GLOMERULAR FILTRATION RATE > 60.0 (>58); GLUCOSE, FASTING 92 MG/DL (70-100); SODIUM LEVEL 138 MEQ/L (136-145); TOTAL PROTEIN 8.1 GM/DL (6.4-8.2)
[2020-07-02 16:00] LABS: ERYTHROCYTE SEDIMENTATION RATE 22 mm/hr (0-20)
[2020-07-04 16:08] LABS: HEPATITIS C QUANTITATION HCV Not Detected IU/mL (.)
== END ==
LOC: M SFHCPLAZ 13:58
PROVIDERS: ATTEND Internal Medicine Infectious Disease
DX: B95.62 Methicillin resistant Staphylococcus aureus infection as the cause of diseases classified elsewhere (principal); Z86.19 Personal history of other infectious and parasitic diseases; I77.6 Arteritis, unspecified; I07.9 Rheumatic tricuspid valve disease, unspecified

== ENCOUNTER → 2020-07-02 | Outpatient (CLI) | payer OTHER ==
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
== END ==
LOC: M PLAIMG 13:58
PROVIDERS: ATTEND Internal Medicine Infectious Disease
DX: J40 Bronchitis, not specified as acute or chronic (principal); Z87.81 Personal history of (healed) traumatic fracture

== ENCOUNTER → 2020-07-15 | Outpatient (REF) | payer OTHER | LOC: M SFHCPLAZ 17:02 | PROVIDERS: ATTEND Internal Medicine Infectious Disease | DX: J40 Bronchitis, not specified as acute or chronic (principal) ==

== ENCOUNTER → 2020-07-25 | Outpatient (REF) | payer OTHER ==
[2020-07-25 17:51] LABS: BASO % 0.3 % (0.0-1.0); EOS # 0.3 10^3/uL (0.0-0.5); EOS % 1.8 % (0.0-3.0); HEMOGLOBIN 12.6 g/dl (12.0-15.5); LYMPH # 3.4 10^3/uL (1.5-5.0); LYMPH % 24.5 % (24.0-44.0); MEAN CORPUSCULAR HEMOGLOBIN 27.8 pg (27.0-33.0); MEAN CORPUSCULAR HGB CONC 33.2 g/dl (32.0-36.5); MEAN CORPUSCULAR VOLUME 83.9 fl (80.0-96.0); MONO # 0.8 10^3/uL (0.0-0.8); MONO % 5.9 % (2.0-8.0); NEUTROPHILS # 9.2 10^3/uL (1.5-8.5); PLATELET COUNT, AUTOMATED 328 10^3/uL (150-450); RED BLOOD COUNT 4.53 10^6/uL (4.00-5.40); WHITE BLOOD COUNT 13.8 10^3/uL (4.0-10.0)
[2020-07-25 18:17] LABS: ALBUMIN 3.6 GM/DL (3.2-5.2); ALT/SGPT 21 U/L (12-78); BILIRUBIN,TOTAL 0.5 MG/DL (0.2-1.0); BLOOD UREA NITROGEN 11 MG/DL (7-18); C REACTIVE PROTEIN QUANTITATIV 6.27 MG/DL (0.00-0.30); CALCIUM LEVEL 8.9 MG/DL (8.5-10.1); CARBON DIOXIDE LEVEL 28 MEQ/L (21-32); CHLORIDE LEVEL 99 MEQ/L (98-107); CREATININE FOR GFR 0.78 MG/DL (0.55-1.30); GLOMERULAR FILTRATION RATE > 60.0 (>58); GLUCOSE, FASTING 85 MG/DL (70-100); POTASSIUM SERUM 3.2 MEQ/L (3.5-5.1); SODIUM LEVEL 135 MEQ/L (136-145); TOTAL PROTEIN 6.7 GM/DL (6.4-8.2)
[2020-07-25 18:35] LABS: ERYTHROCYTE SEDIMENTATION RATE 21 mm/hr (0-20)
== END ==
LOC: M SFHCPLAZ 14:32
PROVIDERS: ATTEND Internal Medicine Infectious Disease
DX: G06.1 Intraspinal abscess and granuloma (principal)

== ENCOUNTER 2020-08-04 06:21 | Emergency (ER) | payer OTHER ==
[~2020-08-04] VITALS: Ht 144.8 cm; Wt 39.9 kg
[2020-08-04 06:22] VITALS: BP 154/91
[2020-08-04] MEDS ORDERED: DOXY100C (07:12)
[2020-08-04] MEDS ORDERED: NITR1CAP11 PO (10:54)
[2020-08-04] MEDS ORDERED: MUPI30CR TOP (11:06)
[2020-08-04] MEDS ORDERED: LIDO5DIS41 TOP (11:09)
== END 2020-08-04 06:57 | disposition left against medical advice (07) ==
LOC: M ED 06:21
DX: Z53.21 Procedure and treatment not carried out due to patient leaving prior to being seen by health care provider (principal)

== ENCOUNTER 2020-08-04 07:03 | Emergency (ER) | payer OTHER ==
[~2020-08-04] VITALS: Ht 147.3 cm; Wt 40.9 kg
[2020-08-04] MEDS ORDERED: DOXY100C (07:12)
[2020-08-04] MEDS ORDERED: BACITRACIN OINTMENT 30GM TUBE TOP STA (07:47)
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
[2020-08-04 08:51] LABS: APPEARANCE, URINE HAZY (CLEAR); BACTERIA, URINE AUTO 1+ (NEGATIVE); BILIRUBIN, URINE AUTO NEGATIVE (NEGATIVE); BLOOD, URINE BLOOD 3+ (NEGATIVE); COLOR, URINE YELLOW (YELLOW); GLUCOSE, URINE (UA) AUTO NEGATIVE (NEGATIVE); KETONE, URINE AUTO 1+ mg/dL (NEGATIVE); LEUKOCYTE ESTERASE, URINE AUTO 3+ (NEGATIVE); NITRITE, URINE AUTO NEGATIVE (NEGATIVE); PROTEIN, URINE AUTO 1+ mg/dL (NEGATIVE); RBC, URINE AUTO 31 /HPF (0-3); SPECIFIC GRAVITY URINE AUTO 1.009 (1.002-1.035); SQUAMOUS EPITHELIAL CELL UR AU 1 /HPF (0-6); UROBILINOGEN, URINE AUTO 0.2 mg/dL (0.0-2.0); WBC, URINE AUTO 11 /HPF (0-3)
[2020-08-04 09:17] LABS: AMPHETAMINES LEVEL URINE NEGATIVE (NEGATIVE); BARBITURATES URINE NEGATIVE (NEGATIVE); BENZODIAZEPINES URINE NEGATIVE (NEGATIVE); CANNABINOIDS URINE POSITIVE (NEGATIVE); COCAINE METABOLITE URINE NEGATIVE (NEGATIVE); METHADONE URINE NEGATIVE (NEGATIVE); OPIATES URINE POSITIVE (NEGATIVE); PHENCYCLIDINE URINE NEGATIVE (NEGATIVE)
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
[2020-08-04] MEDS ORDERED: NITR1CAP11 PO (10:54)
[2020-08-04] MEDS ORDERED: MUPI30CR TOP (11:06)
[2020-08-04] MEDS ORDERED: LIDO5DIS41 TOP (11:09)
[2020-08-04] MEDS ORDERED: LIDOCAINE 5% (LIDODERM) PATCH TD ONE (11:10)
[2020-08-04 11:14] VITALS: BP 155/99
[2020-08-04] MEDS ORDERED: **NOTE PATIENT COMMENT** MISC XX SCH (21:00)
== END 2020-08-04 11:25 | disposition home or self-care (01) ==
LOC: M ED 07:03
DX: F12.10 Cannabis abuse, uncomplicated (principal); F11.10 Opioid abuse, uncomplicated; F19.10 Other psychoactive substance abuse, uncomplicated; N39.0 Urinary tract infection, site not specified; S39.012A Strain of muscle, fascia and tendon of lower back, initial encounter; S09.90XA Unspecified injury of head, initial encounter; S40.012A Contusion of left shoulder, initial encounter; Y04.8XXA Assault by other bodily force, initial encounter; Y92.9 Unspecified place or not applicable; Y93.9 Activity, unspecified; Y99.9 Unspecified external cause status; L98.499 Non-pressure chronic ulcer of skin of other sites with unspecified severity; I10 Essential (primary) hypertension; J44.9 Chronic obstructive pulmonary disease, unspecified; K21.9 Gastro-esophageal reflux disease without esophagitis; F31.9 Bipolar disorder, unspecified; F43.10 Post-traumatic stress disorder, unspecified; D50.9 Iron deficiency anemia, unspecified; M06.9 Rheumatoid arthritis, unspecified; I51.9 Heart disease, unspecified; L95.9 Vasculitis limited to the skin, unspecified; Z86.19 Personal history of other infectious and parasitic diseases; Z86.14 Personal history of Methicillin resistant Staphylococcus aureus infection; Z86.711 Personal history of pulmonary embolism; Z79.899 Other long term (current) drug therapy; Z88.0 Allergy status to penicillin; Z88.2 Allergy status to sulfonamides; Z88.5 Allergy status to narcotic agent

== ENCOUNTER → 2020-08-07 | Outpatient (CLI) | payer OTHER ==
[~2020-08-07] MED LIST changes: +DOXY100C; +MUPI30CR TOP; +NITR1CAP11 PO
[2020-08-07 17:54] LABS: HEMATOCRIT 41.3 % (36.0-47.0); HEMOGLOBIN 13.1 g/dl (12.0-15.5); MEAN CORPUSCULAR HEMOGLOBIN 27.8 pg (27.0-33.0); MEAN CORPUSCULAR HGB CONC 31.7 g/dl (32.0-36.5); MEAN CORPUSCULAR VOLUME 87.7 fl (80.0-96.0); PLATELET COUNT, AUTOMATED 371 10^3/uL (150-450); RED BLOOD COUNT 4.71 10^6/uL (4.00-5.40); WHITE BLOOD COUNT 8.8 10^3/uL (4.0-10.0)
[2020-08-07 18:15] LABS: ALBUMIN 3.3 GM/DL (3.2-5.2); ALT/SGPT 14 U/L (12-78); BILIRUBIN,TOTAL 0.3 MG/DL (0.2-1.0); BLOOD UREA NITROGEN 13 MG/DL (7-18); CALCIUM LEVEL 8.9 MG/DL (8.5-10.1); CARBON DIOXIDE LEVEL 27 MEQ/L (21-32); CHLORIDE LEVEL 109 MEQ/L (98-107); CREATININE FOR GFR 0.72 MG/DL (0.55-1.30); FREE T4 0.87 NG/DL (0.76-1.46); GLOMERULAR FILTRATION RATE > 60.0 (>58); GLUCOSE, FASTING 104 MG/DL (70-100); POTASSIUM SERUM 3.9 MEQ/L (3.5-5.1); SODIUM LEVEL 141 MEQ/L (136-145); THYROID STIMULATING HORMONE 0.316 uIU/ML (0.358-3.740); TOTAL PROTEIN 6.5 GM/DL (6.4-8.2)
[2020-08-07 18:46] LABS: ERYTHROCYTE SEDIMENTATION RATE 22 mm/hr (0-20)
== END ==
LOC: M LAB 16:38
PROVIDERS: ATTEND Dermatology
DX: I73.89 Other specified peripheral vascular diseases (principal)

== ENCOUNTER → 2020-08-08 | Outpatient (REF) | payer OTHER ==
[~2020-08-08] MED LIST changes: +ASPI81TA26 PO; -DOXY100C; +DOXY100C PO; +MINO100C4 PO; +NIFE10CA2 PO; +QUET25TA3 PO; +VENL75CA47 PO
== END ==
LOC: M LAB REF 14:02
PROVIDERS: ATTEND Dermatology
DX: L98.499 Non-pressure chronic ulcer of skin of other sites with unspecified severity (principal); L08.9 Local infection of the skin and subcutaneous tissue, unspecified

== ENCOUNTER 2020-08-09 14:10 | Inpatient (IN) | payer OTHER ==
[~2020-08-09] VITALS: Ht 147.3 cm; Wt 40.8 kg
[~2020-08-09 14:10] MED LIST changes: -ASPI81TA26 PO; -MINO100C4 PO; -NIFE10CA2 PO; -QUET25TA3 PO; -VENL75CA47 PO
[2020-08-09 16:26] LABS: BASO # 0.1 10^3/uL (0.0-0.2); BASO % 0.8 % (0.0-1.0); EOS # 0.1 10^3/uL (0.0-0.5); EOS % 1.3 % (0.0-3.0); HEMATOCRIT 42.7 % (36.0-47.0); HEMOGLOBIN 13.7 g/dl (12.0-15.5); LYMPH % 32.8 % (24.0-44.0); MEAN CORPUSCULAR HEMOGLOBIN 27.6 pg (27.0-33.0); MEAN CORPUSCULAR HGB CONC 32.1 g/dl (32.0-36.5); MEAN CORPUSCULAR VOLUME 85.9 fl (80.0-96.0); MONO # 0.5 10^3/uL (0.0-0.8); MONO % 5.1 % (2.0-8.0); NEUTROPHILS # 5.4 10^3/uL (1.5-8.5); NEUTROPHILS % 59.6 % (36.0-66.0); RED BLOOD COUNT 4.97 10^6/uL (4.00-5.40); WHITE BLOOD COUNT 9.1 10^3/uL (4.0-10.0)
[2020-08-09 16:42] LABS: PLATELET COUNT, AUTOMATED 424 10^3/uL (150-450)
[2020-08-09 16:45] LABS: ERYTHROCYTE SEDIMENTATION RATE 24 mm/hr (0-20)
--- NOTE | 2020-08-09 16:48 | REP ---
INDICATION: productive cough, chills COMPARISON: 08/04/2020. TECHNIQUE: PA/Lateral FINDINGS: Lungs: Clear, no infiltrate. Heart: Normal in size. Mediastinum: Mediastinal silhouette unremarkable. Pleural angles: Unremarkable.. Bones and soft tissues: Unremarkable. Metallic plate and screws are seen in the cervical spine. Metallic clips are seen in the right upper quadrant of the abdomen. Fusion hardware is seen in the lumbar spine. IMPRESSION: No acute pulmonary disease. <Electronically signed by Josué Ramirez > 08/09/20 [id number]
[2020-08-09 16:52] LABS: BLOOD UREA NITROGEN 12 MG/DL (7-18); CALCIUM LEVEL 9.2 MG/DL (8.5-10.1); CARBON DIOXIDE LEVEL 29 MEQ/L (21-32); CHLORIDE LEVEL 107 MEQ/L (98-107); CREATININE FOR GFR 0.65 MG/DL (0.55-1.30); GLOMERULAR FILTRATION RATE > 60.0 (>58); GLUCOSE, FASTING 74 MG/DL (70-100); POTASSIUM SERUM 4.3 MEQ/L (3.5-5.1); SODIUM LEVEL 139 MEQ/L (136-145)
--- NOTE | 2020-08-09 17:35 | REP ---
INDICATION: r/o osteo changed distal middle finger COMPARISON: None. TECHNIQUE: AP, lateral, bilateral oblique views right 3rd digit. FINDINGS: The osseous structures and joint spaces are intact and normal. There is no evidence for acute fracture or dislocation. Surrounding soft tissues are unremarkable. No subcutaneous emphysema or radiodense foreign body. IMPRESSION: No obvious osseous abnormality. No acute fracture or dislocation. <Electronically signed by Dung Taveras > 08/09/20 [id number]
[2020-08-09] MEDS ORDERED: DOXYCYCLINE HYCLATE 100 MG in D5W MINI-BAG PLUS 100 ML IV ONE (18:10)
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
[2020-08-09] MEDS ORDERED: NIFE10CA2 PO (18:41)
[2020-08-09] MEDS ORDERED: MINO100C4 PO (18:41)
--- NOTE | 2020-08-09 19:33 | REP ---
INDICATION: central line--post placement COMPARISON: 08/09/2020 TECHNIQUE: Portable AP view of the chest FINDINGS: Left subclavian catheter with tip in the SVC/right atrium. Mediastinum and cardiac silhouette are normal/stable. Lung brownlee demonstrate chronic interstitial changes subtle superimposed right basilar atelectasis cannot be excluded. No discrete focal consolidation, effusion, or pneumothorax. Skeletal structures intact. IMPRESSION: Left subclavian catheter with tip in the SVC/right atrium. Cannot exclude subtle right basilar atelectasis. <Electronically signed by Dung Taveras > 08/09/201928
[2020-08-09] MEDS ORDERED: ASPI81TA26 PO (19:37)
[2020-08-09] MEDS ORDERED: QUET25TA3 PO (19:37)
[2020-08-09] MEDS ORDERED: VENL75CA47 PO (19:37)
[2020-08-09] MEDS ORDERED: MUPI30CR TOP (19:37)
[2020-08-09] MEDS ORDERED: HYDROXYCHLOROQUINE 200 MG TAB PO SCH (21:00)
[2020-08-09] MEDS ORDERED: QUEtiapine FUMARATE 100 MG TAB PO SCH (21:00)
[2020-08-09] MEDS ORDERED: ALBUTEROL 90 MCG/ACT 8GM HFA INHALER INH PRN (21:35)
[2020-08-09] MEDS ORDERED: QUEtiapine FUMARATE 25 MG TAB PO PRN (21:35)
[2020-08-09] MEDS ORDERED: SENOKOT S TAB PO PRN (21:35)
[2020-08-09] MEDS ORDERED: PROMETHAZINE 25 MG TAB PO PRN (21:35)
[2020-08-09] MEDS ORDERED: hydrOXYzine 50 MG TAB PO PRN (21:35)
[2020-08-09 22:38] VITALS: BP 137/92
[2020-08-09] MEDS: ACETAMINOPHEN TAB 650MG DOSE (2X325MG) PO PRN (22:53)
[2020-08-09] MEDS: ONDANSETRON 4 MG TAB PO PRN (22:54)
[2020-08-10] MEDS: NIFEdipine 10 MG CAP PO SCH ×3 (01:06→14:00)
[2020-08-10 06:00] VITALS: BP 104/63
[2020-08-10 06:54] LABS: HEMATOCRIT 42.4 % (36.0-47.0); HEMOGLOBIN 13.7 g/dl (12.0-15.5); MEAN CORPUSCULAR HEMOGLOBIN 27.3 pg (27.0-33.0); MEAN CORPUSCULAR HGB CONC 32.3 g/dl (32.0-36.5); MEAN CORPUSCULAR VOLUME 84.6 fl (80.0-96.0); PLATELET COUNT, AUTOMATED 389 10^3/uL (150-450); RED BLOOD COUNT 5.01 10^6/uL (4.00-5.40); WHITE BLOOD COUNT 7.4 10^3/uL (4.0-10.0)
[2020-08-10 07:31] LABS: ALBUMIN 2.9 GM/DL (3.2-5.2); ALT/SGPT 11 U/L (12-78); BILIRUBIN,TOTAL 0.2 MG/DL (0.2-1.0); BLOOD UREA NITROGEN 14 MG/DL (7-18); CARBON DIOXIDE LEVEL 27 MEQ/L (21-32); CHLORIDE LEVEL 108 MEQ/L (98-107); CREATININE FOR GFR 0.57 MG/DL (0.55-1.30); GLOMERULAR FILTRATION RATE > 60.0 (>58); GLUCOSE, FASTING 86 MG/DL (70-100); MAGNESIUM LEVEL 2.1 MG/DL (1.8-2.4); POTASSIUM SERUM 4.2 MEQ/L (3.5-5.1); SODIUM LEVEL 141 MEQ/L (136-145); TOTAL PROTEIN 6.5 GM/DL (6.4-8.2)
[2020-08-10 08:30] VITALS: BP 92/63
[2020-08-10] MEDS: ACETAMINOPHEN TAB 650MG DOSE (2X325MG) PO PRN (08:50)
[2020-08-10] MEDS: GABAPENTIN 300 MG CAP PO SCH ×2 (08:50→15:34)
[2020-08-10] MEDS ORDERED: VENLAFAXINE **XR** 75MG CAPSULE PO SCH (09:00)
[2020-08-10] MEDS ORDERED: DOXYCYCLINE HYCLATE 100 MG in D5W MINI-BAG PLUS 100 ML IV SCH (09:00)
[2020-08-10] MEDS ORDERED: ENOXAPARIN 30MG/0.3ML SYRINGE (J1650 PER 10MG) SC SCH (09:00)
[2020-08-10] MEDS ORDERED: ASPIRIN 81MG ENTERIC TABLET PO SCH (09:00)
[2020-08-10] MEDS: ONDANSETRON 4 MG TAB PO PRN (09:30)
[2020-08-10] MEDS ORDERED: NIFE10CA2 PO ×3 (09:55→13:57)
[2020-08-10] MEDS ORDERED: BUPRENORPHINE/NALOXONE 8-2MG SUBLINGUAL TABLET(SUBOXONE) SL SCH (10:00)
[2020-08-10] MEDS: SODIUM CHLORIDE 0.9% INJ 10 ML SYR IV PRN ×2 (10:32→11:10)
[2020-08-10] MEDS ORDERED: KETOROLAC 30 MG/ML 1ML VIAL IV SCH (11:00)
[2020-08-10] MEDS ORDERED: NS 500 ML IV ONE (11:50)
[2020-08-10] MEDS ORDERED: FLUCONAZOLE 50MG TABLET PO ONE (12:00)
[2020-08-10 14:00] VITALS: BP 102/70
[2020-08-10] MEDS ORDERED: SODIUM CHLORIDE 0.9% INJ 10 ML SYR IV SCH (14:00)
--- NOTE | 2020-08-10 14:15 | DS.PDOC ---
Discharge Summary General Date of Admission Aug 09, 2020 at 17:50 Date of Discharge 08/10/20 Discharge Summary PROCEDURES PERFORMED DURING STAY: [None]. ADMITTING DIAGNOSES: Ischemic finger ulcer Acrocyanosis Substance abuse DISCHARGE DIAGNOSES: Ischemic finger ulcer Acrocyanosis Substance abuse COMPLICATIONS/CHIEF COMPLAINT: Ischemis Finger, Vasculopathy. HISTORY OF PRESENT ILLNESS: Patient's 49 years old female with past history of endocarditis, epidural abscess, and IV drug abuse, acute cyanosis, digital ischemia presented hospital with right distal middle finger pain. Patient stated that she has been having the pain for 2 months with unhealed ulceration on the distal middle finger. Patient follows by Dr. Gomez and 2 days ago she had a punch biopsy. Today patient developed increased level of pain and she decided to come to the hospital. In ER contacted Dr. Jose and Dr. Gomez , recommended to start calcium channel radha and doxycycline IV. In ER patient was found to have no leukocytosis, sedimentation rate 24, CRP 1.7, patient normotensive, afebrile. 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 ALLERGIES: Please see below. PHYSICAL EXAMINATION ON DISCHARGE: VITAL SIGNS: Please see below. General Exam: Positive: Alert, Cooperative Eye Exam: Positive: PERRLA ENT Exam: Positive: Atraumatic Neck Exam: Positive: Supple; Negative: JVD Chest Exam: Positive: Clear to auscultation Heart Exam: Positive: Rate Normal Telemetry: Positive: No significant arrhythmia Abdomen Exam: Positive: Normal bowel sounds Extremity Exam: Negative: Clubbing Skin Exam: Positive: Breakdown, Lesion Neuro Exam: Positive: Strength at 5/5 X4 ext Psych Exam: Positive: Mental status NL, Mood NL, Oriented x 3 LABORATORY DATA: Please see below. IMAGING: See above PROGNOSIS: Fair ACTIVITY: [As tolerated]. 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 TIME SPENT ON DISCHARGE: 40minutes. Vital Signs/I&Os Vital Signs Date Time Temp Pulse Resp B/P (MAP) Pulse Ox O2 Delivery O2 Flow Rate FiO2 08/10/20 14:00 102/70 08/10/20 08:30 98.8 78 13 96 Room Air I&O- Last 24 Hours up to 6 AM 08/10/20 05:59 Intake Total 100 ml Output Total 600 ml Balance -500 ml Laboratory Data Labs 24H Laboratory Tests 2 08/09/20 15:15: Immature Granulocyte % (Auto) 0.4, Neutrophils (%) (Auto) 59.6, Lymphocytes (%) (Auto) 32.8, Monocytes (%) (Auto) 5.1, Eosinophils (%) (Auto) 1.3, Basophils (%) (Auto) 0.8, Neutrophils # (Auto) 5.4, Lymphocytes # (Auto) 3.0, Monocytes # (Auto) 0.5, Eosinophils # (Auto) 0.1, Basophils # (Auto) 0.1, Nucleated Red Blood Cells % (auto) 0.0, Erythrocyte Sedimentation Rate 24H, Anion Gap 3L, Glomerular Filtration Rate > 60.0, Calcium Level 9.2, C-Reactive Protein, Quanti tative 1.70H 08/09/20 18:43: Lactic Acid Level 0.8, Procalcitonin <0.05 08/09/20 20:27: Coronavirus (COVID-19)(PCR) NEGATIVE 08/10/20 06:25: Nucleated Red Blood Cells % (auto) 0.0, Anion Gap 6L, Glomerular Filtration Rate > 60.0, Calcium Level 9.0, Magnesium Level 2.1, Total Bilirubin 0.2, Aspartate Amino Transf (AST/SGOT) 18, Alanine Aminotransferase (ALT/SGPT) 11L, Alkaline Phosphatase 121H, Total Protein 6.5, Albumin 2.9L, Albumin/Globulin Ratio 0.8L CBC/BMP Laboratory Tests 08/09/20 15:15 08/10/20 06:25 Microbiology Microbiology 08/09/20 Blood Culture, Received Pending 08/09/20 Blood Culture, Received Pending Discharge Medications Scheduled Aspirin (Aspirin EC) 81 Mg Tablet.dr, 81 MG PO DAILY, (Reported) Buprenorphine HCl/Naloxone HCl (Suboxone 8 mg-2 mg Sl Film) 1 Each Film, 1 STRIP SL BID, (Reported) Estradiol (Estrace) 0.5 Mg Tablet, 0.5 MG PO QHS, (Reported) Gabapentin (Gabapentin) 300 Mg Capsule, 300 MG PO TID, (Reported) Hydroxychloroquine Sulfate (Hydroxychloroquine Sulfate) 200 Mg Tablet, 200 MG PO QHS, (Reported) Minocycline HCl (Minocycline HCl) 100 Mg Capsule, 100 MG PO BID, (Reported) HAS NOT PICKED UP SCRIPT Mupirocin (Mupirocin) 30 Gm Cream..g., 1 APPLIC TOP TID, (Reported) APPLY TO AFFECTED AREA ON HAND Nifedipine (Nifedipine) 10 Mg Capsule, 10 MG PO BID Omeprazole (Omeprazole) 40 Mg Capsule.dr, 40 MG PO QHS, (Reported) Quetiapine Fumarate (Quetiapine Fumarate) 300 Mg Tablet, 300 MG PO QHS, (Reported) Venlafaxine HCl (Venlafaxine HCl ER) 75 Mg Cap.er.24h, 225 MG PO DAILY, (Reported) Scheduled PRN Albuterol Sulfate (Ventolin Hfa) 18 Gm Hfa.aer.ad, 2 PUFF INH Q6H PRN for SOB/WHEEZING, (Reported) Hydroxyzine HCl (Hydroxyzine HCl) 50 Mg Tablet, 50 MG PO BID PRN for ANXIETY, (Reported) Ondansetron HCl (Ondansetron HCl) 4 Mg Tablet, 4 MG PO QID PRN for NAUSEA OR VOMITING, (Reported) Promethazine HCl (Promethazine HCl) 25 Mg Tablet, 25 MG PO Q12H PRN for NAUSEA OR VOMITING, (Reported) Quetiapine Fumarate (Quetiapine Fumarate) 25 Mg Tablet, 25 MG PO TID PRN for MOOD, (Reported) Sennosides/Docusate Sodium (Senna-S Tablet) 1 Each Tablet, 1 TAB PO BID PRN for CONSTIPATION, (Reported) Allergies Coded Allergies: vancomycin (Verified Allergy, Severe, 11/30/19) Penicillins (Verified Allergy, Intermediate, RASH, 11/30/19) Sulfa (Sulfonamide Antibiotics) (Verified Allergy, Intermediate, RASH, 11/30/19) trimethoprim (Verified Allergy, Intermediate, RASH, 11/30/19) tramadol (Verified Adverse Reaction, Intermediate, ITCHING, URINARY RETENTION, 11/30/19) ROLAN LARSON DO Aug 10, 2020 14:15
== END 2020-08-10 16:40 | disposition home or self-care (01) | DRG 380 ==
LOC: M ED 14:10 → M ED INP 17:50 → ENRESERV 21:41 → M MSPAV 22:36
PROVIDERS: ADMIT Internal Medicine; ATTEND Internal Medicine
DX: L98.499 Non-pressure chronic ulcer of skin of other sites with unspecified severity (principal); F32.9 Major depressive disorder, single episode, unspecified; I73.89 Other specified peripheral vascular diseases; Z79.899 Other long term (current) drug therapy; Z79.82 Long term (current) use of aspirin; Z88.0 Allergy status to penicillin; Z88.2 Allergy status to sulfonamides; Z88.8 Allergy status to other drugs, medicaments and biological substances; K21.9 Gastro-esophageal reflux disease without esophagitis; F17.200 Nicotine dependence, unspecified, uncomplicated

== ENCOUNTER 2020-08-23 14:41 | Outpatient (CLI) | payer OTHER ==
[~2020-08-23] VITALS: Ht 147.3 cm; Wt 40.0 kg
[~2020-08-23 14:41] MED LIST changes: +ASPI81TA26 PO; +ERGO500029 PO; +MINO100C4 PO; +NIFE10CA2 PO; +QUET25TA3 PO; +VENL75CA47 PO; -VITA50005 PO
[2020-08-23] MEDS ORDERED: DALBAVANCIN 1,500 MG in D5W 250 ML IV ONE (15:00)
[2020-08-23 15:35] VITALS: BP 108/67
[2020-08-23 16:20] VITALS: BP 103/67
== END 2020-08-23 16:21 | disposition home or self-care (01) ==
LOC: M INFU 14:41
PROVIDERS: ATTEND Internal Medicine Infectious Disease
DX: G06.2 Extradural and subdural abscess, unspecified (principal); Z88.0 Allergy status to penicillin; Z88.1 Allergy status to other antibiotic agents; Z88.2 Allergy status to sulfonamides; Z88.6 Allergy status to analgesic agent
CPT/HCPCS: 96365; J0875

== ENCOUNTER → 2020-08-27 | Outpatient (CLI) | payer OTHER ==
[2020-08-27 10:59] LABS: HEMOGLOBIN A1c 5.5 %
[2020-08-27 11:19] LABS: CHOLESTEROL RISK RATIO 3.593 (<5); FREE T4 0.8 NG/DL (0.76-1.46); THYROID STIMULATING HORMONE 1.46 uIU/ML (0.358-3.740)
== END ==
LOC: M LAB 10:08
PROVIDERS: ATTEND Nurse Practitioner Family
DX: Z13.1 Encounter for screening for diabetes mellitus (principal); Z13.228 Encounter for screening for other metabolic disorders

== ENCOUNTER 2020-09-06 15:28 | Outpatient (CLI) | payer OTHER ==
[~2020-09-06] VITALS: Ht 144.8 cm; Wt 41.4 kg
[~2020-09-06 15:28] MED LIST changes: +DALBAVANCIN 1,500 MG in D5W 250 ML IV ONE
[2020-09-06 15:30] VITALS: BP 116/74
[2020-09-06 17:34] VITALS: BP 137/85
== END 2020-09-06 17:35 | disposition home or self-care (01) ==
LOC: M INFU 15:28
PROVIDERS: ATTEND Internal Medicine Infectious Disease
DX: G06.2 Extradural and subdural abscess, unspecified (principal); Z88.0 Allergy status to penicillin; Z88.2 Allergy status to sulfonamides; Z88.1 Allergy status to other antibiotic agents; Z88.6 Allergy status to analgesic agent
CPT/HCPCS: 96365; J0875

== ENCOUNTER → 2020-09-19 | Outpatient (REF) | payer OTHER, MEDICAID ==
[~2020-09-19] MED LIST changes: +BISA5TAB15 PO; +CELE1CAP4 PO; -DALBAVANCIN 1,500 MG in D5W 250 ML IV ONE; +FLUC150T PO; +MIRA1POW3 PO; +ONDA8TAB8 PO; +QUET200T2 PO
== END ==
LOC: M SFHCPLAZ 16:33
PROVIDERS: ATTEND Internal Medicine Infectious Disease
DX: I77.6 Arteritis, unspecified (principal)

== ENCOUNTER 2020-09-20 16:04 | Outpatient (CLI) | payer OTHER ==
[~2020-09-20] VITALS: Ht 147.3 cm; Wt 41.3 kg
[~2020-09-20 16:04] MED LIST changes: -BISA5TAB15 PO; -CELE1CAP4 PO; +DALBAVANCIN 1,500 MG in D5W 250 ML IV ONE; -FLUC150T PO; -MIRA1POW3 PO; -ONDA8TAB8 PO; -QUET200T2 PO
[2020-09-20 16:15] VITALS: BP 120/85
[2020-09-20 17:00] VITALS: BP 118/88
[2020-09-20 17:31] LABS: ALBUMIN 3.7 GM/DL (3.2-5.2); ALT/SGPT 92 U/L (12-78); BILIRUBIN,TOTAL 0.3 MG/DL (0.2-1.0); BLOOD UREA NITROGEN 15 MG/DL (7-18); C REACTIVE PROTEIN QUANTITATIV 1.56 MG/DL (0.00-0.30); CALCIUM LEVEL 8.8 MG/DL (8.5-10.1); CARBON DIOXIDE LEVEL 23 MEQ/L (21-32); CHLORIDE LEVEL 106 MEQ/L (98-107); CREATININE FOR GFR 0.95 MG/DL (0.55-1.30); GLOMERULAR FILTRATION RATE > 60.0 (>58); GLUCOSE, FASTING 154 MG/DL (70-100); POTASSIUM SERUM 5.4 MEQ/L (3.5-5.1); SODIUM LEVEL 136 MEQ/L (136-145); TOTAL PROTEIN 7.4 GM/DL (6.4-8.2)
[2020-09-20 18:06] VITALS: BP 118/77
[2020-09-20 18:44] LABS: BASO % 0.3 % (0.0-1.0); EOS % 0.2 % (0.0-3.0); HEMATOCRIT 40.2 % (36.0-47.0); LYMPH # 1.7 10^3/uL (1.5-5.0); LYMPH % 15.8 % (24.0-44.0); MEAN CORPUSCULAR HGB CONC 32.3 g/dl (32.0-36.5); MEAN CORPUSCULAR VOLUME 86.6 fl (80.0-96.0); MONO # 0.3 10^3/uL (0.0-0.8); MONO % 2.6 % (2.0-8.0); NEUTROPHILS # 8.9 10^3/uL (1.5-8.5); NEUTROPHILS % 80.8 % (36.0-66.0); PLATELET COUNT, AUTOMATED 347 10^3/uL (150-450); RED BLOOD COUNT 4.64 10^6/uL (4.00-5.40)
[2020-09-20 19:02] LABS: ERYTHROCYTE SEDIMENTATION RATE 10 mm/hr (0-20)
== END 2020-09-20 18:05 | disposition home or self-care (01) ==
LOC: M INFU 16:04
PROVIDERS: ATTEND Internal Medicine Infectious Disease
DX: G06.2 Extradural and subdural abscess, unspecified (principal); Z88.0 Allergy status to penicillin; Z88.1 Allergy status to other antibiotic agents; Z88.2 Allergy status to sulfonamides
CPT/HCPCS: 36415; 80053; 85025; 85652; 86140; 87040; 96365; J0875

== ENCOUNTER 2020-09-24 18:33 | Inpatient (IN) | payer OTHER ==
[~2020-09-24] VITALS: Ht 147.3 cm; Wt 43.5 kg
[~2020-09-24 18:33] MED LIST changes: -DALBAVANCIN 1,500 MG in D5W 250 ML IV ONE
[2020-09-24 21:59] LABS: HEMATOCRIT 40.5 % (36.0-47.0); HEMOGLOBIN 13.4 g/dl (12.0-15.5); MEAN CORPUSCULAR HEMOGLOBIN 28.3 pg (27.0-33.0); MEAN CORPUSCULAR HGB CONC 33.1 g/dl (32.0-36.5); MEAN CORPUSCULAR VOLUME 85.4 fl (80.0-96.0); PLATELET COUNT, AUTOMATED 382 10^3/uL (150-450); RED BLOOD COUNT 4.74 10^6/uL (4.00-5.40); WHITE BLOOD COUNT 12.3 10^3/uL (4.0-10.0)
[2020-09-24 22:14] LABS: ALBUMIN 3.6 GM/DL (3.2-5.2); ALT/SGPT 38 U/L (12-78); BILIRUBIN,DIRECT < 0.1 MG/DL (0.0-0.2); BILIRUBIN,TOTAL 0.2 MG/DL (0.2-1.0); BLOOD UREA NITROGEN 10 MG/DL (7-18); C REACTIVE PROTEIN QUANTITATIV 3.71 MG/DL (0.00-0.30); CALCIUM LEVEL 8.8 MG/DL (8.5-10.1); CARBON DIOXIDE LEVEL 30 MEQ/L (21-32); CHLORIDE LEVEL 107 MEQ/L (98-107); CREATININE FOR GFR 0.75 MG/DL (0.55-1.30); GLOMERULAR FILTRATION RATE > 60.0 (>58); GLUCOSE, FASTING 89 MG/DL (70-100); POTASSIUM SERUM 3.7 MEQ/L (3.5-5.1); SODIUM LEVEL 140 MEQ/L (136-145); TOTAL PROTEIN 7.6 GM/DL (6.4-8.2)
[2020-09-24 22:26] LABS: ANISOCYTOSIS 1+; ATYPICAL LYMPH 3 % (0-5); EOSINOPHILS 1 % (0-3); LYMPHOCYTES 33 % (16-44); MONOCYTES 5 % (0-5); NEUTROPHILS 58 % (28-66); PLATELET ESTIMATE NORMAL (NORMAL)
[2020-09-24 22:28] LABS: STOMATOCYTES 1+
[2020-09-24 22:29] LABS: TEAR DROP CELLS 1+
[2020-09-24 22:31] LABS: ERYTHROCYTE SEDIMENTATION RATE 24 mm/hr (0-20)
--- NOTE | 2020-09-24 23:13 | REPVR ---
PROCEDURE INFORMATION: Exam: XR Chest Exam date and time: 09/24/2020 9:53 PM Age: 49 years old Clinical indication: Other: Malaise TECHNIQUE: Imaging protocol: XR of the chest. Views: 1 view. COMPARISON: 1. NM Chest, 1 view 2020-08-09 19:12 2. CR Chest, 2 view PA, Lat 2020-08-04 08:[address] Chest without contrast 2020-04-29 17:[address] Chest without contrast 2020-03-21 18:22 FINDINGS: Lungs: Unremarkable. No consolidation. Pleural spaces: Unremarkable. No pleural effusion. No pneumothorax. Heart/Mediastinum: Unremarkable. No cardiomegaly. Bones/joints: Unremarkable. IMPRESSION: No acute findings. Electronically signed by: Milind Scruggs On 09/24/2020 23:13:06 PM
[2020-09-25] MEDS ORDERED: LINEZOLID 600 MG in IV 1 EA IV ONE (00:55)
--- NOTE | 2020-09-25 01:37 | HPEPDOC ---
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 Whitfield in [place] and Dr. Colunga, has a nonhealing right great toe ulcer with wound culture showing Streptococcus sent by Dr. Colunga due to elevated ESR and CRP, now with white count of 12.4 and increasing ESR and CRP given Zyvox in the ER. Patient will be admitted as an inpatient for the following issues: Streptococcus infection of the right big toe-on Zyvox 600 mg every 12 hourly. ID consulted Epidural abscess L2-L5 with increasing ESR and CRP-on chronic Dalvance every 2 WEEKS. 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 left acromioclavicular joint, healed-repeat echocardiogram due to elevated ESR and CRP IV drug use on chronic Suboxone Rheumatoid arthritis with Raynaud's phenomenon unlikely to be ischemic ulcers on the right hand History of GI bleed Iron deficiency anemia Vital Signs Vital Signs Date Time Temp Pulse Resp B/P (MAP) Pulse Ox O2 Delivery O2 Flow Rate FiO2 09/25/20 01:15 86 18 95 Room Air 09/25/20 00:15 149/90 (109) 09/24/20 18:34 97.7 Laboratory Data Labs 24H Laboratory Tests 2 09/24/20 21:30: Neutrophils (%) (Auto) , Nucleated Red Blood Cells % (auto) 0.0, Neutrophils 58, Lymphocytes (Manual) 33, Monocytes (Manual) 5, Eosinophils (Manual) 1, Atypical Lymphocytes 3, Anisocytosis 1+, Tear Drop Cells 1+, Stomatocytes 1+, Platelet Estimate NORMAL, Erythrocyte Sedimentation Rate 24H, Anion Gap 3L, Glomerular Filtration Rate > 60.0, Calcium Level 8.8, Total Bilirubin 0.2, Direct Bilirubin < 0.1, Aspartate Amino Transf (AST/SGOT) 23, Alanine Aminotransferase (ALT/SGPT) 38, Alkaline Phosphatase 99, C-Reactive Protein, Quantitative 3.71H, Total Protein 7.6, Albumin 3.6, Albumin/Globulin Ratio 0.9L CBC/BMP Laboratory Tests 09/24/20 21:30 Microbiology Microbiology 09/24/20 Respiratory Virus Panel (PCR) ([facility]) - Final, Complete 09/24/20 Blood Culture, Received Pending 09/24/20 Blood Culture, Received Pending Home Medications Scheduled Aspirin (Aspirin EC) 81 Mg Tablet.dr, 81 MG PO DAILY Buprenorphine HCl/Naloxone HCl (Suboxone 8 mg-2 mg Sl Film) 1 Each Film, 1 STRIP SL BID Estradiol (Estrace) 0.5 Mg Tablet, 0.5 MG PO QHS Gabapentin (Gabapentin) 300 Mg Capsule, 300 MG PO TID Hydroxychloroquine Sulfate (Hydroxychloroquine Sulfate) 200 Mg Tablet, 200 MG PO QHS Minocycline HCl (Minocycline HCl) 100 Mg Capsule, 100 MG PO BID HAS NOT PICKED UP SCRIPT Mupirocin (Mupirocin) 30 Gm Cream..g., 1 APPLIC TOP TID APPLY TO AFFECTED AREA ON HAND Nifedipine (Nifedipine) 10 Mg Capsule, 10 MG PO BID Omeprazole (Omeprazole) 40 Mg Capsule.dr, 40 MG PO QHS Quetiapine Fumarate (Quetiapine Fumarate) 300 Mg Tablet, 300 MG PO QHS Venlafaxine HCl (Venlafaxine HCl ER) 75 Mg Cap.er.24h, 225 MG PO DAILY Scheduled PRN Albuterol Sulfate (Ventolin Hfa) 18 Gm Hfa.aer.ad, 2 PUFF INH Q6H PRN for SOB/WHEEZING Hydroxyzine HCl (Hydroxyzine HCl) 50 Mg Tablet, 50 MG PO BID PRN for ANXIETY Ondansetron HCl (Ondansetron HCl) 4 Mg Tablet, 4 MG PO QID PRN for NAUSEA OR VOMITING Promethazine HCl (Promethazine HCl) 25 Mg Tablet, 25 MG PO Q12H PRN for NAUSEA OR VOMITING Quetiapine Fumarate (Quetiapine Fumarate) 25 Mg Tablet, 25 MG PO TID PRN for MOOD Sennosides/Docusate Sodium (Senna-S Tablet) 1 Each Tablet, 1 TAB PO BID PRN for CONSTIPATION Allergies Coded Allergies: vancomycin (Verified Allergy, Severe, 11/30/19) Penicillins (Verified Allergy, Intermediate, RASH, 11/30/19) Sulfa (Sulfonamide Antibiotics) (Verified Allergy, Intermediate, RASH, 11/30/19) trimethoprim (Verified Allergy, Intermediate, RASH, 11/30/19) tramadol (Verified Adverse Reaction, Intermediate, ITCHING, URINARY RETENTION, 11/30/19) A-FIB/CHADSVASC A-FIB History Current/History of A-Fib/PAF?: No Current PO Anticoag Therapy: No Age/Risk Factor Scoring CHADSVASC: CHADSVASC Response (Comments) Value Age Risk Factor Age < 65 years old 0 Gender Risk Factor Female 1 Hx of CHF No 0 Hx of HTN No 0 Hx of Stroke/TIA/or VTE No 0 Hx of Diabetes No 0 Hx of Vascular Disease No 0 Total 1 Treatment Treatment ordered: NONE DIANNE DENNIS MD Sep 25, 2020 01:37
[2020-09-25] MEDS ORDERED: ONDA8TAB8 PO (01:54)
[2020-09-25] MEDS ORDERED: ERGO500029 PO (01:54)
[2020-09-25] MEDS ORDERED: CELE1CAP4 PO (01:54)
[2020-09-25] MEDS ORDERED: MIRA1POW3 PO (01:54)
[2020-09-25] MEDS ORDERED: DOCU100C16 PO (01:54)
[2020-09-25] MEDS ORDERED: FLUC150T PO (01:54)
[2020-09-25] MEDS ORDERED: NIFE10CA2 PO (01:54)
[2020-09-25] MEDS ORDERED: BISA5TAB15 PO (01:54)
[2020-09-25] MEDS ORDERED: QUET200T2 PO (01:54)
[2020-09-25] MEDS ORDERED: MOM 30ML SUSPENSION UDC PO PRN (02:25)
[2020-09-25] MEDS ORDERED: ACETAMINOPHEN TAB 650MG DOSE (2X325MG) PO PRN (02:25)
[2020-09-25] MEDS ORDERED: KETOROLAC 30 MG/ML 1ML VIAL IV ONE (03:30)
[2020-09-25] MEDS ORDERED: hydrOXYzine 50 MG TAB PO PRN (04:05)
[2020-09-25] MEDS ORDERED: MIRALAX *UNIT DOSE* 17GM PACKET PO PRN (04:05)
[2020-09-25] MEDS ORDERED: CelecoXIB (CeleBREX) 100 MG CAP PO PRN (04:05)
[2020-09-25] MEDS ORDERED: SENOKOT S TAB PO PRN (04:05)
[2020-09-25] MEDS ORDERED: DOCUSATE SODIUM 100MG CAPSULE PO PRN (04:05)
[2020-09-25] MEDS ORDERED: BISACODYL 5 MG TAB PO PRN (04:05)
[2020-09-25] MEDS ORDERED: ALBUTEROL 90 MCG/ACT 8GM HFA INHALER INH PRN (04:05)
--- NOTE | 2020-09-25 04:51 | HPEPDOC ---
General Date of Admission Sep 24, 2020 at 18:34 Date of Service: Sep 25, 2020 Attending Physician: DIANNE DENNIS MD Chief Complaint The patient is a 49-year-old female admitted with a reason for visit of Non- Healing Ulcer. Source: Patient Exam Limitations: Other (Patient fatigued) Associated Symptoms: Malaise History of Present Illness Sujey Ramirez is a 49-year-old white female with a history of IV drug use on chronic Suboxone, 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, MRSA bacteremia with epidural abscess status post incision and drainage at [facility], rheumatoid arthritis with Raynaud's phenomenon. Pt is on chronic Dalvance followed by Dr. Marino in [place] and Dr. Jose locally. Pt reports she has been feeling unwell for the past week and had seen Dr. Jose for follow-up lab work. Patient reports Dr. Jose's nurse called her yesterday and told her to come to the hospital given elevated lab work and her generalized malaise. Patient reports that she has a nonhealing right middle finger "spot"; denies other wounds. Patient is somewhat poor historian as she is reporting fatigue and is drowsy during exam. Patient reports the finger appears stable in size and redness she denies increased pain and reports baseline numbness and tingling that she has with her Raynaud's. Reportedly, fluid culture showed Streptococcus and given the increasing infectious markers and new leukocytosis with a WBC of 12.3 she will be given Zyvox in the ER and admitted to address presenting concerns. Home Medications Scheduled Aspirin (Aspirin EC) 81 Mg Tablet., 81 MG PO QHS, (Reported) Ergocalciferol (Vitamin D2) (Vitamin D2) 50,000 Units Cap, 50,000 UNITS PO QWEEK, (Reported) WEDNESDAY NIGHTS Estradiol (Estrace) 0.5 Mg Tablet, 0.5 MG PO QHS, (Reported) Gabapentin (Gabapentin) 300 Mg Capsule, 300 MG PO TID, (Reported) Hydroxychloroquine Sulfate (Hydroxychloroquine Sulfate) 200 Mg Tablet, 200 MG PO QHS, (Reported) Nifedipine (Nifedipine) 10 Mg Capsule, 10 MG PO TID, (Reported) Omeprazole (Omeprazole) 40 Mg Capsule., 40 MG PO QHS, (Reported) Quetiapine Fumarate (Quetiapine Fumarate) 200 Mg Tablet, 200 MG PO QHS, (Reported) Venlafaxine HCl (Venlafaxine HCl ER) 75 Mg Cap.er.24h, 225 MG PO QHS, (Reported) Scheduled PRN Albuterol Sulfate (Ventolin Hfa) 18 Gm Hfa.aer.ad, 2 PUFF INH Q6H PRN for SOB/WHEEZING, (Reported) Bisacodyl (Bisacodyl) 5 Mg Tablet.dr, 5 MG PO DAILY PRN for CONSTIPATION, (Reported) Celecoxib (Celebrex) 200 Mg Capsule, 200 MG PO DAILY PRN for PAIN LEVEL 5-7, (Reported) Docusate Sodium (Docusate Sodium) 100 Mg Capsule, 100 MG PO BID PRN for CONSTIPATION, (Reported) Fluconazole (Fluconazole) 150 Mg Tablet, 150 MG PO 1XWK PRN for YEAST INFECTION, (Reported) Hydroxyzine HCl (Hydroxyzine HCl) 50 Mg Tablet, 50 MG PO BID PRN for ANXIETY, (Reported) Ondansetron (Ondansetron Odt) 8 Mg Tab.rapdis, 8 MG PO DAILY PRN for NAUSEA OR VOMITING, (Reported) Polyethylene Glycol 3350 (Miralax) 17 Gm Powd.pack, 17 GM PO DAILY PRN for CONSTIPATION, (Reported) Quetiapine Fumarate (Quetiapine Fumarate) 25 Mg Tablet, 25 MG PO TID PRN for MO OD, (Reported) Sennosides/Docusate Sodium (Senna-S Tablet) 1 Each Tablet, 1 TAB PO BID PRN for CONSTIPATION, (Reported) Allergies Coded Allergies: vancomycin (Verified Allergy, Severe, 11/30/19) Penicillins (Verified Allergy, Intermediate, RASH, 11/30/19) Sulfa (Sulfonamide Antibiotics) (Verified Allergy, Intermediate, RASH, 11/30/19) trimethoprim (Verified Allergy, Intermediate, RASH, 11/30/19) tramadol (Verified Adverse Reaction, Intermediate, ITCHING, URINARY RETENTION, 11/30/19) Past Medical History Medical History IV drug use, 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 to the lung and left acromioclavicular joint in March 2019, MRSA bacteremia with epidural abscess status post incision and drainage at [facility], tricuspid regurgitation with 0.4 x 0.7 cm vegetation seen on transesophageal echocardiogram at [facility] in [place], rheumatoid arthritis with Raynaud's phenomenon , hypertension, current daily smoker Surgical History I&D epidural abscess, C-sections cholecystectomy, back and neck surgery, hernia repair Family History Significant Family History: No pertinent family hx None reported Social History * Smoker: current smoker (0.25 PPD) Alcohol: rarely Drugs: denies (Denies currently) Recent Travel/Sick Contacts: Denies: Recent travel, Recent sick contacts Psychosocial History: No pertinent psych hx A-FIB/CHADSVASC A-FIB History Current/History of A-Fib/PAF?: No Age/Risk Factor Scoring CHADSVASC: CHADSVASC Response (Comments) Value Age Risk Factor Age < 65 years old 0 Gender Risk Factor Female 1 Hx of CHF No 0 Hx of HTN No 0 Hx of Stroke/TIA/or VTE No 0 Hx of Diabetes No 0 Hx of Vascular Disease No 0 Total 1 Review of Systems Constitutional: Reports: Fatigue Eyes: Denies: Pain, Vision change ENT: Denies: Head Aches, Ear Pain, Dysphagia Skin: Denies: Rash, Lesions, Breakdown Pulmonary: Denies: Dyspnea, Cough Cardiovascular: Denies: Chest Pain, Palpitations, Orthopnea, Paroxysmal Noc. Dyspnea, Lt Headedness Gastrointestinal: Denies: Nausea, Vomiting, Abdominal Pain, Diarrhea Genitourinary: Denies: Dysuria, Frequency, Incontinence, Retention Hematologic: Denies: Bruising, Bleeding Excessively Musculoskeletal: Denies: Neck Pain, Back Pain, Joint Pain, Muscle Pain, Spasms Neurological: Reports: Numbness (Numbness tingling of hands) Psych: Reports: Mood Normal; Denies: Depression, Memory Issues Physical Examination General Exam: Positive: Cooperative (Drowsy) Eye Exam: Positive: PERRLA, Conjunctiva & lids normal, EOMI; Negative: Sclera icteric ENT Exam: Positive: Atraumatic, Mucous membr. moist/pink, Pharynx Normal Neck Exam: Positive: Supple; Negative: JVD, thyromegaly Chest Exam: Positive: Clear to auscultation, Normal air movement Heart Exam: Positive: Rate Normal, Regular Rhythm, Normal S1, Normal S2; Negative: Murmurs, Rubs Telemetry: Positive: No significant arrhythmia Abdomen Exam: Positive: Normal bowel sounds, Soft; Negative: Tenderness, Hepatospenomegaly Extremity Exam: Positive: Normal pulses; Negative: Edema, Tenderness Skin Exam: Positive: Nl turgor and temperature, Breakdown, Lesion, Other skin issue (Circular area of ulceration to middle finger (small, circular, black pinpoint), surrounding mild redness, nontender, equal temperature to surrounding tissue) Other physical findings No pinpoint exquisite tenderness along spine. Lower back scar tissue noted - healed without erythema/swelling. Vital Signs Vital Signs Date Time Temp Pulse Resp B/P (MAP) Pulse Ox O2 Delivery O2 Flow Rate FiO2 09/25/20 02:46 79 97 09/25/20 02:45 17 125/92 (103) Room Air 09/24/20 18:34 97.7 Laboratory Data Labs 24H Laboratory Tests 2 09/24/20 21:30: Neutrophils (%) (Auto) , Nucleated Red Blood Cells % (auto) 0.0, Neutrophils 58, Lymphocytes (Manual) 33, Monocytes (Manual) 5, Eosinophils (Manual) 1, Atypical Lymphocytes 3, Anisocytosis 1+, Tear Drop Cells 1+, Stomatocytes 1+, Platelet Estimate NORMAL, Erythrocyte Sedimentation Rate 24H, Anion Gap 3L, Glomerular Filtration Rate > 60.0, Calcium Level 8.8, Total Bilirubin 0.2, Direct Bilirubin < 0.1, Aspartate Amino Transf (AST/SGOT) 23, Alanine Aminotransferase (ALT/SGPT) 38, Alkaline Phosphatase 99, C-Reactive Protein, Quantitative 3.71H, Total Protein 7.6, Albumin 3.6, Albumin/Globulin Ratio 0.9L CBC/BMP Laboratory Tests 09/24/20 21:30 Microbiology Microbiology 09/24/20 Respiratory Virus Panel (PCR) ([facility]) - Final, Complete 09/24/20 Blood Culture, Received Pending 09/24/20 Blood Culture, Received Pending RAD Interpretation STUDY: CXR Rad Actions: Report Reviewed RAD Interpretation: Normal Assessment/Plan 1. Streptococcus infection of digit as noted from prior to admission wound culture: Plan to monitor patient, monitor for signs/ symptoms of worsening infection. Blood cultures sent. On Zyvox 600 mg every 12 hourly. ID to be consulted in a.m. will defer to ID for recommendations on imaging/repeat culturing. A.m. labs. 2.Epidural abscess L2-L5 with increasing ESR and CRP: Concern for reoccurrence/ worsening infection; although back pain stable per patient which is reassuring. On chronic Dalvance every 2 WEEKS. ID consult in a.m. 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 Monitor patient, telemetry. 4.IV drug use on chronic Suboxone: Monitor patient, monitor pain level. Encourage nonpharmacologic methods to manage pain. Offer as needed for breakthrough; avoid opiates as able. 5.Rheumatoid arthritis with Raynaud's phenomenon: Monitor patient, monitor neurovascular of hands. Symptom management/supportive care. Likely contributing to symptoms with above. 6. Iron deficiency anemia in patient with a history of GI bleed: Monitor patient , a.m. labs. During admission hemoglobin/hematocrit robust at 13.4 and 40.4. Monitor for any overt bleeding or need for transfusions with hemoglobin less than 7. Plan / VTE VTE Prophylaxis Ordered?: No VTE Exclusion Mechanical Proph: Low Risk for VTE VTE Exclusion Pharmacological: At Low Risk for VTE Plan Disposition Home AZAM GAMBLE NP Sep 25, 2020 03:31
[2020-09-25 05:25] VITALS: BP 152/98
[2020-09-25 06:38] LABS: HEMATOCRIT 43.4 % (36.0-47.0); HEMOGLOBIN 14.1 g/dl (12.0-15.5); MEAN CORPUSCULAR HEMOGLOBIN 27.7 pg (27.0-33.0); MEAN CORPUSCULAR HGB CONC 32.5 g/dl (32.0-36.5); MEAN CORPUSCULAR VOLUME 85.3 fl (80.0-96.0); PLATELET COUNT, AUTOMATED 342 10^3/uL (150-450); RED BLOOD COUNT 5.09 10^6/uL (4.00-5.40)
[2020-09-25 07:09] LABS: BLOOD UREA NITROGEN 13 MG/DL (7-18); CALCIUM LEVEL 8.8 MG/DL (8.5-10.1); CARBON DIOXIDE LEVEL 32 MEQ/L (21-32); CHLORIDE LEVEL 104 MEQ/L (98-107); GLOMERULAR FILTRATION RATE > 60.0 (>58); GLUCOSE, FASTING 73 MG/DL (70-100); POTASSIUM SERUM 4.9 MEQ/L (3.5-5.1); SODIUM LEVEL 139 MEQ/L (136-145)
[2020-09-25 07:42] LABS: ANISOCYTOSIS 1+; ATYPICAL LYMPH 2 % (0-5); EOSINOPHILS 3 % (0-3); LYMPHOCYTES 33 % (16-44); MONOCYTES 4 % (0-5); NEUTROPHILS 58 % (28-66); PLATELET ESTIMATE NORMAL (NORMAL)
[2020-09-25] MEDS ORDERED: GABAPENTIN 300 MG CAP PO SCH (09:00)
[2020-09-25] MEDS ORDERED: NIFEdipine 10 MG CAP PO SCH (09:00)
[2020-09-25] MEDS ORDERED: MOXI400T11 PO (10:59)
[2020-09-25] MEDS ORDERED: LINEZOLID 600MG TABLET (ZYVOX) PO SCH (12:00)
[2020-09-25] MEDS ORDERED: HYDROXYCHLOROQUINE 200 MG TAB PO SCH (21:00)
[2020-09-25] MEDS ORDERED: QUEtiapine FUMARATE 200 MG TAB PO SCH (21:00)
[2020-09-25] MEDS ORDERED: ASPIRIN 81MG ENTERIC TABLET PO SCH (21:00)
[2020-09-25] MEDS ORDERED: OMEPRAZOLE 20 MG CAP PO SCH (21:00)
[2020-09-25] MEDS ORDERED: VENLAFAXINE **XR** 75MG CAPSULE PO SCH (21:00)
--- NOTE | 2020-09-26 11:17 | DSES ---
DISCHARGE SUMMARY DATE OF ADMISSION: 09/24/2020 DATE OF DISCHARGE: 09/25/2020 DISCHARGE DIAGNOSES: 1. Nonhealing left leg ulcer with positive outpatient culture growing Streptococcus. 2. History of epidural abscess. 3. History of methicillin-resistant Staphylococcus aureus (MRSA) tricuspid valve endocarditis. 4. History of intravenous drug abuse (IVDA), currently in remission. 5. History of rheumatoid arthritis with Raynaud's phenomenon. PROCEDURES PERFORMED DURING THIS HOSPITALIZATION: None. CONSULTANTS ON THIS CASE: None. DISPOSITION: Patient left against medical advice. CONDITION ON DISCHARGE: Stable. DISCHARGE INSTRUCTIONS: I did prescribe the patient moxifloxacin 400 mg by mouth daily for seven days. I have instructed her to follow up with Dr. Jose. PERTINENT LABORATORIES: Blood cultures after 24 hours showed no growth. Respiratory viral panel was negative. White blood cell count 13,000, hemoglobin 14, hematocrit 43, platelet count 342,000. Sodium 139, potassium 4.9, chloride 104, bicarbonate 32, BUN 13, creatinine 0.8, glucose 73, calcium 8.8. Procalcitonin less than 0.05. Chest x-ray one view showed no acute pathology. Please reference report and film for further details. DISCHARGE MEDICATIONS: I did prescribe the patient moxifloxacin 400 mg by mouth daily for seven days. The remainder of home medications prior to admission were unchanged at the time of her leaving against medical advice (AMA). HOSPITAL COURSE: Sujey is a 49-year-old with history of intravenous drug abuse (IVDA), epidural abscess, as well as endocarditis, who had presented at the behest of Dr. Jose's office for increasing leukocytosis as well as positive wound culture done as an outpatient done six days ago. Patient was treated with Zyvox upon admission. She was noted to have mild leukocytosis, slightly elevated at 13,000. Patient was adamant about leaving. I told her that given her history, I could not discharge her until her blood cultures were final. She should not leave based on cultures done as an outpatient five days ago. She was growing Streptococcus salivarius, which is multidrug resistant. It is sensitive to Avalox. I did prescribe Avalox for seven days. I have instructed her to follow up with Dr. Jose. PHYSICAL EXAMINATION: At the time of discharge, patient's temperature was 97, pulse 98, respirations 16, blood pressure 152/98. GENERAL: Patient is alert and oriented times three. She appears in no acute distress. She is nontoxic in appearance. HEAD: Atraumatic. Pupils are symmetric and react to light. Oropharynx is clear. NECK: Supple. LUNGS: Lung sounds are present bilaterally without wheezing or rhonchi. HEART: S1, S2. She has a murmur. ABDOMEN: Soft, nontender, nondistended. EXTREMITIES: Without any cyanosis, clubbing or edema. She has a wound on her left posterior calf where they had done a culture, she tells me. This area shows a mild amount of drainage. She has no areas of open wounds on her toes or foot that I could see. TOTAL TIME SPENT ON DISCHARGE: 30 minutes.
--- NOTE | 2020-09-27 00:12 | ECHO ---
ECHOCARDIOGRAM DATE OF PROCEDURE: 09/25/2020 Age: 49 Gender: Female Height: Weight: REFERRING PHYSICIAN: Dr. Lani Epps INDICATION: Infective endocarditis 2D MEASUREMENTS: Intraventricular septum 0._ cm Posterior wall 0.70 cm Left ventricle diastole 3.9 cm Left ventricular systole 2.6 cm Aortic root 3.0 cm Left atrium 2.3 cm Proximal ascending aorta 2.6 cm Left atrium volume index 18 DOPPLER MEASUREMENTS: No aortic stenosis. No aortic regurgitation. No mitral stenosis Trace mitral regurgitation Mitral E velocity 77.1 cm/s Mitral A velocity 59.6 cm/s Mitral deceleration time 137 msec Moderate tricuspid regurgitation Estimated right ventricle systolic pressure 31 mmHg Estimated right atrial pressure of 10 mmHg No pulmonic regurgitation MITRAL ANNULAR TISSUE DOPPLER E prime septal 7.6 cm/s E prime lateral 10.2 cm/s DESCRIPTION: Rhythm was sinus. Image quality was good. This was a 2D, M-mode, color flow Doppler, and pulsed wave Doppler examination that included mitral annular tissue Doppler. CONCLUSIONS: 1. Vegetation attached to the atrial side of the tricuspid valve, which measured 0.4 cm x 0.7 cm and appeared to be fairly echo dense. Associated moderate tricuspid regurgitation. 2. Normal left ventricle internal dimensions and wall thickness. Normal regional LV wall motion and wall thickening. Normal LV systolic function, LVEF 60-65% by visual estimate. Normal LV diastolic function. 3. No pericardial effusion. 4. Otherwise normal appearing echocardiogram/Doppler findings.
== END 2020-09-25 11:44 | disposition left against medical advice (07) | DRG 380 ==
LOC: M ED 18:33 → M ED INP 18:34 → M MSPAV 09-25 05:26
PROVIDERS: ADMIT General Practice; ATTEND General Practice
DX: L97.829 Non-pressure chronic ulcer of other part of left lower leg with unspecified severity (principal); F17.210 Nicotine dependence, cigarettes, uncomplicated; I73.00 Raynaud's syndrome without gangrene; Z79.82 Long term (current) use of aspirin; Z79.899 Other long term (current) drug therapy; Z88.0 Allergy status to penicillin; Z88.1 Allergy status to other antibiotic agents; Z88.2 Allergy status to sulfonamides; Z20.822 Contact with and (suspected) exposure to COVID-19; D50.9 Iron deficiency anemia, unspecified

== ENCOUNTER 2020-09-30 00:55 | Emergency (ER) | payer OTHER ==
[~2020-09-30] VITALS: Ht 144.8 cm; Wt 46.6 kg
[~2020-09-30 00:55] MED LIST changes: +BISA5TAB15 PO; +CELE1CAP4 PO; +FLUC150T PO; +MIRA1POW3 PO; +MOXI400T11 PO; +ONDA8TAB8 PO; +QUET200T2 PO
[2020-09-30 00:56] VITALS: BP 131/90
== END 2020-09-30 01:55 | disposition left against medical advice (07) ==
LOC: M ED 00:55
DX: Z53.21 Procedure and treatment not carried out due to patient leaving prior to being seen by health care provider (principal)

== ENCOUNTER 2020-10-04 16:15 | Outpatient (CLI) | payer OTHER ==
[2020-10-04 16:10] VITALS: BP 123/77
[~2020-10-04 16:15] MED LIST changes: +DALBAVANCIN 1,500 MG in D5W 250 ML IV ONE
== END 2020-10-04 18:15 | disposition home or self-care (01) ==
LOC: M INFU 16:15
PROVIDERS: ATTEND Internal Medicine Infectious Disease
DX: G06.2 Extradural and subdural abscess, unspecified (principal); Z53.8 Procedure and treatment not carried out for other reasons

== ENCOUNTER 2020-10-09 11:20 | Outpatient (CLI) | payer OTHER ==
[~2020-10-09] VITALS: Ht 147.3 cm; Wt 41.3 kg
[2020-10-09 11:31] VITALS: BP 111/68
[2020-10-09 14:15] VITALS: BP 135/82
== END 2020-10-09 14:25 | disposition home or self-care (01) ==
LOC: M INFU 11:20
PROVIDERS: ATTEND Internal Medicine Infectious Disease
DX: G06.2 Extradural and subdural abscess, unspecified (principal); Z88.0 Allergy status to penicillin; Z88.2 Allergy status to sulfonamides; Z88.1 Allergy status to other antibiotic agents
CPT/HCPCS: 96365; J0875

== ENCOUNTER 2020-10-18 15:26 | Outpatient (CLI) | payer OTHER ==
[~2020-10-18 15:26] MED LIST changes: -CLIN150C15 PO; +CLIN150C17 PO; -DOXY100C PO; +DOXY100C3 PO; +METH-1177 PO; -METH10TA2 PO; +QUET1TAB17 PO; -QUET25TA3 PO; -QUET50TA3 PO; +QUET50TA4 PO
[2020-10-18 15:30] VITALS: BP 128/68
== END 2020-10-18 16:20 | disposition home or self-care (01) ==
LOC: M INFU 15:26
PROVIDERS: ATTEND Internal Medicine Infectious Disease
DX: Z53.8 Procedure and treatment not carried out for other reasons (principal)

== ENCOUNTER → 2020-11-07 | Outpatient (REF) ==
[~2020-11-07] MED LIST changes: +COMMENTS; -DALBAVANCIN 1,500 MG in D5W 250 ML IV ONE; +GABA-283 PO; +NAPR-837 PO; +SILD20TA11 PO
--- NOTE | 2020-11-08 05:52 | REP ---
INDICATION: LBP COMPARISON: 06/13/2019 TECHNIQUE: AP, lateral, coned-down views of the lumbar spine. FINDINGS: Current examination now demonstrates posterior fixation spanning L3-L5 along with laminectomy and prosthetic disc hardware. Alignment and lordosis is relatively maintained and within normal limits. Vertebral bodies are intact without acute fracture/compression injury. Lower thoracic spine through the L2 vertebral body and associated disc spaces appear normal. IMPRESSION: 1. No obvious acute pathology by radiographic evaluation. 2. Current examination now demonstrates posterior fixation and laminectomy from L3-L5 <Electronically signed by Dung Taveras > 11/08/20 [id number]
== END ==
LOC: M RAD 16:50
PROVIDERS: ATTEND Internal Medicine
DX: M54.5 Low back pain (principal)

== ENCOUNTER 2020-11-11 02:49 | Inpatient (IN) | payer OTHER, MEDICAID ==
[~2020-11-11] VITALS: Ht 147.3 cm; Wt 50.9 kg
[~2020-11-11 02:49] MED LIST changes: -COMMENTS; -GABA-283 PO; -NAPR-837 PO; -SILD20TA11 PO
[2020-11-11 03:20] LABS: BASO % 0.4 % (0.0-1.0); EOS # 0.2 10^3/uL (0.0-0.5); EOS % 2.2 % (0.0-3.0); HEMATOCRIT 40.2 % (36.0-47.0); HEMOGLOBIN 13.6 g/dl (12.0-15.5); LYMPH # 1.7 10^3/uL (1.5-5.0); LYMPH % 22.9 % (24.0-44.0); MEAN CORPUSCULAR HEMOGLOBIN 28.8 pg (27.0-33.0); MEAN CORPUSCULAR HGB CONC 33.8 g/dl (32.0-36.5); MEAN CORPUSCULAR VOLUME 85.2 fl (80.0-96.0); MONO # 0.6 10^3/uL (0.0-0.8); MONO % 8.4 % (2.0-8.0); NEUTROPHILS # 4.8 10^3/uL (1.5-8.5); NEUTROPHILS % 65.8 % (36.0-66.0); PLATELET COUNT, AUTOMATED 383 10^3/uL (150-450); RED BLOOD COUNT 4.72 10^6/uL (4.00-5.40); WHITE BLOOD COUNT 7.3 10^3/uL (4.0-10.0)
[2020-11-11] MEDS ORDERED: LORazepam 2 MG/ML VIAL IV STA ×2 (03:30→04:39)
[2020-11-11] MEDS ORDERED: LORazepam 2 MG/ML VIAL As Ordered ONE ×2 (03:33→04:46)
[2020-11-11 03:52] LABS: HCG, SERUM QUALITATIVE NEGATIVE (NEGATIVE)
[2020-11-11 04:07] LABS: ACETAMINOPHEN LEVEL 13.9 UG/ML (10.0-30.0); ALBUMIN 3.1 GM/DL (3.2-5.2); ALT/SGPT 23 U/L (12-78); BILIRUBIN,DIRECT 0.2 MG/DL (0.0-0.2); BILIRUBIN,TOTAL 0.5 MG/DL (0.2-1.0); BLOOD UREA NITROGEN 9 MG/DL (7-18); CARBON DIOXIDE LEVEL 33 MEQ/L (21-32); CHLORIDE LEVEL 98 MEQ/L (98-107); CPK CREATINE PHOSPHOKINASE 134 U/L (26-192); ETHYL ALCOHOL (ETHANOL) < 0.003 % (0.000-0.010); GLOMERULAR FILTRATION RATE > 60.0 (>51); GLUCOSE, FASTING 170 MG/DL (70-100); POTASSIUM SERUM 2.7 MEQ/L (3.5-5.1); SALICYLATE LEVEL 3.6 MG/DL (5.0-30.0); SODIUM LEVEL 137 MEQ/L (136-145); THYROID STIMULATING HORMONE 0.313 uIU/ML (0.358-3.740); TOTAL PROTEIN 7.5 GM/DL (6.4-8.2)
[2020-11-11] MEDS ORDERED: POTASSIUM CHLORIDE 10 MEQ SR TABLET PO ONE (04:40)
[2020-11-11] MEDS ORDERED: KCL 10MEQ/100ML SWI (KRUN) 10 MEQ in IV 1 EA IV ONE ×6 (04:45→14:00)
[2020-11-11 05:13] LABS: FREE T4 1.63 NG/DL (0.76-1.46); MAGNESIUM LEVEL 2.1 MG/DL (1.8-2.4)
[2020-11-11] MEDS ORDERED: OLANZapine INTRAMUSCULAR 10MG VIAL IM ONE (05:30)
--- NOTE | 2020-11-11 07:45 | REPVR ---
PROCEDURE INFORMATION: Exam: CT Head Without Contrast Exam date and time: 11/11/2020 7:31 AM Age: 50 years old Clinical indication: Altered mental status/memory loss TECHNIQUE: Imaging protocol: Computed tomography of the head without contrast. Radiation optimization: All CT scans at this facility use at least one of these dose optimization techniques: automated exposure control; mA and/or kV adjustment per patient size (includes targeted exams where dose is matched to clinical indication); or iterative reconstruction. COMPARISON: CT Head without contrast 08/04/2020 8:03 AM FINDINGS: Brain: Normal. No hemorrhage. Unremarkable white matter. No mass effect. Cerebral ventricles: No ventriculomegaly. Paranasal sinuses: Visualized sinuses are unremarkable. No fluid levels. Mastoid air cells: Visualized mastoid air cells are well aerated. Bones/joints: Unremarkable. No acute fracture. Soft tissues: Unremarkable. IMPRESSION: No acute intracranial abnormality. Electronically signed by: Jannet Saunders On 11/11/2020 07:45:31 AM
[2020-11-11] MEDS ORDERED: KCL 20MEQ IN 100ML SWI (KRUN) 20 MEQ in IV 1 EA IV ONE ×2 (09:15)
[2020-11-11] MEDS ORDERED: D5W/0.45% SODIUM CHLORIDE 1,000 ML IV SCH (09:30)
[2020-11-11] MEDS ORDERED: THIAMINE 200MG 2ML VIAL IM ONE ×2 (10:00→17:35)
[2020-11-11 10:09] LABS: RSV AMPLIFICATION NEGATIVE (NEGATIVE)
[2020-11-11] MEDS ORDERED: SILD20TA11 PO (11:24)
[2020-11-11] MEDS ORDERED: LORazepam 2 MG/ML VIAL IV PRN (11:45)
[2020-11-11 11:51] LABS: ALBUMIN 2.4 GM/DL (3.2-5.2); ALT/SGPT 17 U/L (12-78); BILIRUBIN,TOTAL 0.4 MG/DL (0.2-1.0); BLOOD UREA NITROGEN 7 MG/DL (7-18); CALCIUM LEVEL 8.1 MG/DL (8.5-10.1); CARBON DIOXIDE LEVEL 29 MEQ/L (21-32); CHLORIDE LEVEL 106 MEQ/L (98-107); CREATININE FOR GFR 0.49 MG/DL (0.55-1.30); GLOMERULAR FILTRATION RATE > 60.0 (>51); GLUCOSE, FASTING 102 MG/DL (70-100); POTASSIUM SERUM 3.5 MEQ/L (3.5-5.1); SODIUM LEVEL 141 MEQ/L (136-145)
[2020-11-11] MEDS ORDERED: HOME MED LIST COMPLETE! XX SCH (12:30)
[2020-11-11] MEDS ORDERED: COMMENTS (12:30)
[2020-11-11] MEDS ORDERED: SUBO8MIS SL (12:30)
[2020-11-11 13:12] VITALS: BP 143/84
[2020-11-11] MEDS ORDERED: MIRALAX *UNIT DOSE* 17GM PACKET PO PRN (14:20)
[2020-11-11] MEDS ORDERED: DOCUSATE SODIUM 100MG CAPSULE PO PRN (14:20)
[2020-11-11] MEDS ORDERED: ALBUTEROL 90 MCG/ACT 8GM HFA INHALER INH PRN (14:20)
[2020-11-11] MEDS ORDERED: BISACODYL 5 MG TAB PO PRN (14:20)
[2020-11-11 16:00] VITALS: BP 124/97
--- NOTE | 2020-11-11 16:10 | HPEPDOC ---
[facility] Medical History & Physical Date of Admission Nov 11, 2020 Date of Service: Nov 11, 2020 History and Physical CHIEF COMPLAINT: Agitation and Insomnia HISTORY OF PRESENT ILLNESS: Patient is a 50-year-old female presents to the ED for agitation and insomnia. As per the ED, patient came in because she was unable to sleep for the past 3 days as she took methamphetamines. To combat her insomnia, she took her more than her prescribed dose of Seroquel. During her stay in the ED, patient became agitated and needed 3 x 1mg Ativan to calm down. However, patient then became unresponsive. When patient was seen in the ED, she had a GCS score of 4; there was no eye-opening, no verbal response, motor response only to sternal rub. PAST MEDICAL HISTORY: Unable to obtain as patient is not responsive PAST SURGICAL HISTORY: Unable to obtain as patient is not responsive SOCIAL HISTORY: Unable to obtain as patient is not responsive FAMILY HISTORY: Unable to obtain as patient is not responsive ALLERGIES: Please see below. REVIEW OF SYSTEMS: Unable to obtain as patient is not responsive HOME MEDICATIONS: Please see below. PHYSICAL EXAMINATION: VITAL SIGNS: please see below GENERAL APPEARANCE: Patient is not responsive; exhibits pain with sternal rub HEENT: Pinpoint pupils; pupils reactive to light; head normocephalic atraumatic; no lesions, bumps noted CARDIOVASCULAR: Regular rate and rhythm; no murmurs noted LUNGS: Clear to auscultation bilaterally; no wheezing, rales, rhonchi noted ABDOMEN: NABS; soft, nondistended, no reaction to deep palpation EXTREMITIES: Has lesions all over her upper and lower extremities; has thickening/swelling in bilateral hands that is not edematous LABORATORY DATA: See below. IMAGING: Head CT without contrast 11/11: " No acute intracranial abnormality." MICROBIOLOGY: Please see below. ASSESSMENT: Patient is a 50-year-old female presents to the ED for agitation and insomnia found to have altered mental status with a GCS score of 4. . PLAN: #AMS 2/2 Methamphetamine use and Seroquel as well as 3 doses of Ativan - will give thiamine in case of development of encephalopathy - sitter for any possible agitation - seizure precautions - fall precautions - unable to assess if patient is suicidal; will determine when patient is awake - keep NPO due to possibility of aspiration #Hypokalemia with value of 2.7 possible due to poor oral intake - will give a total of 6 K-runs - will re-evaluate after supplementation - 48 hour telemetry due to electrolyte imbalance #DVT prophylaxis - TEDs and Sequentials as pt is NPO with aspiration precautions Vital Signs Vital Signs Date Time Temp Pulse Resp B/P (MAP) Pulse Ox O2 Delivery O2 Flow Rate FiO2 11/11/20 13:12 99.4 104 20 143/84 (103) 100 Room Air 11/11/20 12:50 1.0 Laboratory Data Labs 24H Laboratory Tests 2 11/11/20 03:12: Immature Granulocyte % (Auto) 0.3, Neutrophils (%) (Auto) 65.8, Lymphocytes (%) (Auto) 22.9L, Monocytes (%) (Auto) 8.4H, Eosinophils (%) (Auto) 2.2, Basophils (%) (Auto) 0.4, Neutrophils # (Auto) 4.8, Lymphocytes # (Auto) 1.7, Monocytes # (Auto) 0.6, Eosinophils # (Auto) 0.2, Basophils # (Auto) 0.0, Nucleated Red Blood Cells % (auto) 0.0, Anion Gap 6L, Glomerular Filtration Rate > 60.0, Calcium Level 9.0, Magnesium Level 2.1, Total Bilirubin 0.5, Direct Bilirubin 0.2, Aspartate Amino Transf (AST/SGOT) 22, Alanine Aminotransferase (ALT/SGPT) 23, Alkaline Phosphatase 139H, Total Creatine Kinase 134, Total Protein 7.5, Albumin 3.1L, Albumin/Globulin Ratio 0.7L, Thyroid Stimulating Hormone (TSH) 0.313L, Free Thyroxine 1.63H, Human Chorionic Gonadotropin, Qual NEGATIVE, Salicylates Level 3.6L, Acetaminophen Level 13.9, Ethyl Alcohol Level < 0.003 11/11/20 03:26: Bedside Glucose (Misc Panel) 166H 11/11/20 09:23: Coronavirus (COVID-19)(PCR) NEGATIVE, Influenza Type A (RT-PCR) NEGATIVE, Influenza Type B (RT-PCR) NEGATIVE, Respiratory Syncytial Virus (PCR) NEGATIVE 11/11/20 10:52: Anion Gap 6L, Glomerular Filtration Rate > 60.0, Calcium Level 8.1L, Total Bilirubin 0.4, Aspartate Amino Transf (AST/SGOT) 25, Alanine Aminotransferase (ALT/SGPT) 17, Alkaline Phosphatase 105, Total Protein 6.0L, Albumin 2.4#L, Albumin/Globulin Ratio 0.7L CBC/BMP Laboratory Tests 11/11/20 03:12 11/11/20 10:52 Microbiology Microbiology 11/11/20 Blood Culture, Received Pending 11/11/20 Blood Culture, Received Pending Home Medications Scheduled Aspirin (Aspirin EC) 81 Mg Tablet.dr, 81 MG PO QHS Buprenorphine HCl/Naloxone HCl (Suboxone 8 mg-2 mg Sl Film) 1 Each Film, 2 STRIP SL DAILY Ergocalciferol (Vitamin D2) (Vitamin D2) 50,000 Units Cap, 50,000 UNITS PO QWEEK Wednesday Estradiol (Estrace) 0.5 Mg Tablet, 0.5 MG PO QHS Gabapentin (Gabapentin) 300 Mg Capsule, 300 MG PO TID Hydroxychloroquine Sulfate (Hydroxychloroquine Sulfate) 200 Mg Tablet, 200 MG PO QHS Nifedipine (Nifedipine) 10 Mg Capsule, 10 MG PO TID Omeprazole (Omeprazole) 40 Mg Capsule.dr, 40 MG PO QHS Quetiapine Fumarate (Quetiapine Fumarate) 200 Mg Tablet, 200 MG PO QHS Sildenafil Citrate (Sildenafil Citrate) 20 Mg Tablet, 20 MG PO DAILY Venlafaxine HCl (Venlafaxine HCl ER) 75 Mg Cap.er.24h, 225 MG PO QHS Scheduled PRN Albuterol Sulfate (Ventolin Hfa) 18 Gm Hfa.aer.ad, 2 PUFF INH Q6H PRN for SOB/WHEEZING Bisacodyl (Bisacodyl) 5 Mg Tablet.dr, 5 MG PO DAILY PRN for CONSTIPATION Docusate Sodium (Docusate Sodium) 100 Mg Capsule, 100 MG PO BID PRN for CONSTIPATION Fluconazole (Fluconazole) 150 Mg Tablet, 150 MG PO 1XWK PRN for YEAST INFECTION Hydroxyzine HCl (Hydroxyzine HCl) 50 Mg Tablet, 50 MG PO BID PRN for ANXIETY Ondansetron (Ondansetron Odt) 8 Mg Tab.rapdis, 8 MG PO DAILY PRN for NAUSEA OR VOMITING Polyethylene Glycol 3350 (Miralax) 17 Gm Powd.pack, 17 GM PO DAILY PRN for CONSTIPATION Quetiapine Fumarate (Quetiapine Fumarate) 25 Mg Tablet, 25 MG PO TID PRN for MOOD Sennosides/Docusate Sodium (Senna-S Tablet) 1 Each Tablet, 1 TAB PO BID PRN for CONSTIPATION Miscellaneous Medications [Comments] MEDICATIONS VERIFIED WITH THE [facility] Allergies Coded Allergies: vancomycin (Verified Allergy, Severe, 11/30/19) Penicillins (Verified Allergy, Intermediate, RASH, 11/30/19) Sulfa (Sulfonamide Antibiotics) (Verified Allergy, Intermediate, RASH, 11/30/19) trimethoprim (Verified Allergy, Intermediate, RASH, 11/30/19) tramadol (Verified Adverse Reaction, Intermediate, ITCHING, URINARY RETENTION, 11/30/19) A-FIB/CHADSVASC A-FIB History Current/History of A-Fib/PAF?: No GME ATTESTATION GME ATTESTATION My faculty preceptor for this patient encounter was physically present during the encounter and was fully available. All aspects of the patient interview, examination, medical decision making process, and medical care plan development were reviewed and approved by the faculty preceptor. The faculty preceptor is aware and concurs with the plan as stated in the body of this note and will atte st to such by his/her cosignature. Danya Christian DO Nov 11, 2020 16:10
--- NOTE | 2020-11-11 16:54 | ECGEPIP ---
[facility] - ED Test Date: 2020-11-11 Pat Name: MYLES BLACKWELL Department: Room: - Gender: Female [employer]: IVONNE : 1970 Requested By: LUANA Tracy Order Number: [id number] Reading MD: Aga Angulo Measurements Intervals [place] Rate: 109 P: 58 TX: 128 QRS: 72 QRSD: 82 T: 19 QT: 372 QTc: 500 Interpretive Statements Sinus tachycardia NSTTW abnormalities prolonged qtc, clinical correlation similar 04/29/20 Electronically Signed on 11-11-2020 16:53:38 EDT by Aga Angulo
[2020-11-11] MEDS: NIFEdipine 10 MG CAP PO SCH ×2 (17:21→19:51)
[2020-11-11] MEDS: D5W/0.45% SODIUM CHLORIDE 1,000 ML IV SCH (17:56)
[2020-11-11 18:45] LABS: BLOOD UREA NITROGEN 7 MG/DL (7-18); CALCIUM LEVEL 8.4 MG/DL (8.5-10.1); CARBON DIOXIDE LEVEL 28 MEQ/L (21-32); CHLORIDE LEVEL 106 MEQ/L (98-107); CREATININE FOR GFR 0.51 MG/DL (0.55-1.30); GLOMERULAR FILTRATION RATE > 60.0 (>51); GLUCOSE, FASTING 111 MG/DL (70-100); POTASSIUM SERUM 3.7 MEQ/L (3.5-5.1); SODIUM LEVEL 139 MEQ/L (136-145)
[2020-11-11] MEDS: ASPIRIN 81MG ENTERIC TABLET PO SCH (19:50)
[2020-11-11] MEDS: estradioL 0.5MG HALF-TAB PO SCH (19:50)
[2020-11-11] MEDS: OMEPRAZOLE 20 MG CAP PO SCH (19:50)
[2020-11-11] MEDS: HYDROXYCHLOROQUINE 200 MG TAB PO SCH (19:51)
[2020-11-11 20:00] VITALS: BP 119/74
[2020-11-12] VITALS (7 sets, daily range): BP systolic 96–126; BP diastolic 55–83
[2020-11-12] MEDS: D5W/0.45% SODIUM CHLORIDE 1,000 ML IV SCH ×2 (05:28→18:22)
[2020-11-12] MEDS: NIFEdipine 10 MG CAP PO SCH ×3 (08:45→20:58)
[2020-11-12] MEDS ORDERED: NAPROXEN 250 MG TAB PO SCH (09:00)
[2020-11-12] MEDS ORDERED: predniSONE 20 MG TAB PO ONE (09:10)
--- NOTE | 2020-11-12 11:14 | REP ---
INDICATION: wrist swollen/possibly broken/possible RA flare. COMPARISON: Comparison bilateral hand views October 12, 2019. TECHNIQUE: Four views of each wrist, total of 8 views. FINDINGS: Four views of the right hand demonstrate advanced erosive arthropathy involving the wrist. There are erosions of the distal ulna, radial styloid, navicula, lunate, triquetrum, and erosions are seen at the 2nd and 3rd carpometacarpal articulations. There are erosive changes at the navicular 0 multangular articulation. There is soft tissue swelling at the 1st metacarpophalangeal joint. There is an erosion in the distal end of the 3rd metacarpal. There is diffuse soft tissue swelling over the metacarpals and carpals. The erosive changes appear more pronounced than on October 12, 2019. Four views of the left wrist show subcortical cyst formation in the distal radius. There are erosive changes at the distal ulna, the distal pole of the navicula, and the distal end of the 2nd metacarpal. There is some arthropathy at the 1st carpometacarpal articulation on the left. There is diffuse soft tissue swelling over the carpus and metacarpals on lateral radiograph. The left-sided erosive changes are similar to the October 12, 2019. IMPRESSION: Advanced bilateral and symmetric erosive arthropathy, question rheumatoid arthritis. No fracture seen. <Electronically signed by Marquise Biggs > 11/12/20 [id number]
--- NOTE | 2020-11-12 11:16 | REP ---
INDICATION: hand swollen; r/o fracture; possible RA flare. COMPARISON: Comparison bilateral hand radiographs are from October 12, 2019. TECHNIQUE: Eight views, 4 of each hand. FINDINGS: Four views of each hand demonstrate bilateral erosive arthropathy is described on the wrist series. In addition to the erosion seen on the wrist radiographs, there is soft tissue swelling at the 5 1st MCP and index long ring and small PIP joints. There is diffuse dorsal metacarpal swelling bilaterally. On the left, there is soft tissue swelling of the index, long, and ring finger PIP. There is evidence of a erosive change at the distal end of the proximal phalanx of the long finger on the left. IMPRESSION: No fracture seen. Advanced erosive arthropathy as noted above. <Electronically signed by Marquise Biggs > 11/12/20 [id number]
[2020-11-12] MEDS: ACETAMINOPHEN TAB 650MG DOSE (2X325MG) PO PRN (11:57)
[2020-11-12] MEDS ORDERED: DAPTOmycin 500 MG in NS 50 ML IV SCH (13:35)
--- NOTE | 2020-11-12 14:02 | REP ---
INDICATION: POSSIBLE RA VS SEPTIC JOINT. COMPARISON: Comparison study March 07, 2018. TECHNIQUE: Five views of the right knee are provided. FINDINGS: Five views of the right knee demonstrate diffuse osteopenia. There is fullness in the suprapatellar bursa on the lateral radiograph indicative of a fairly large joint effusion. Joint spaces are preserved. No fracture is seen. No bony destructive or erosive change. No fracture or subluxation is seen. No opaque foreign body noted. IMPRESSION: Moderate to large joint effusion. Diffuse osteopenia. Otherwise negative. <Electronically signed by Marquise Biggs > 11/12/20 [id number]
[2020-11-12 14:13] LABS: AMPHETAMINES LEVEL URINE POSITIVE (NEGATIVE); BARBITURATES URINE NEGATIVE (NEGATIVE); BENZODIAZEPINES URINE NEGATIVE (NEGATIVE); CANNABINOIDS URINE POSITIVE (NEGATIVE); COCAINE METABOLITE URINE NEGATIVE (NEGATIVE); METHADONE URINE NEGATIVE (NEGATIVE); OPIATES URINE NEGATIVE (NEGATIVE); PHENCYCLIDINE URINE NEGATIVE (NEGATIVE)
--- NOTE | 2020-11-12 15:26 | IPNPDOC ---
Date Seen The patient was seen on 11/12/20. Progress Note SUBJECTIVE: Patient is a 50-year-old female presents to the ED for agitation and insomnia. Patient was seen in bed awake asking for food; she is alert and orient to day and place. Today was able to take a PMHx. She states that she has a PMHx of RA, HTN and "circulation" problems for which she is taking Plaquenil, Nifedipine and Sildenafil. She is complaining of some bilateral wrist&hand and right knee pain and swelling for the past 1 week. Patient states that she is having sharp pain that is 10/10 and very tender to palpation. She did state that she did break her Right wrist and thinks that she may have rebroke it but is unsure. Also having some numbness and tingling in her right hand of the digits 1-3 which shoots up to her elbow. + for fever, chills, chest pain, palpitations for the past 2 weeks. OBJECTIVE PHYSICAL EXAMINATION: VITAL SIGNS: Please see below. GENERAL: Patient awake and responding appropriately; in moderate distress; awake, alert, orient to day and place HEENT: Head normocephalic atraumatic; no lesions, bumps noted CARDIOVASCULAR: Regular rate and rhythm; no murmurs noted RESPIRATORY: Clear to auscultation bilaterally; no wheezing, rales, rhonchi noted ABDOMINAL: Normoactive bowel sounds; soft, nondistended, no tenderness to palpation EXTREMITIES: Right and Left wrists swollen R>L; Bilateral hand swelling; Right Knee swelling; b/l hand and wrist and Right knee tender and painful to touch NEUROLOGICAL: CN II-XII grossly intact LABORATORY DATA, IMAGING STUDIES, MICROBIOLOGY: Please see below. Head CT 11/12: "No acute intracranial abnormality." Wrist X-ray 11/12: "Advanced bilateral and symmetric erosive arthropathy, question rheumatoid arthritis. No fracture seen." Hand X-ray 11/12: "No fracture seen. Advanced erosive arthropathy as noted above." Knee X-ray 11/12: "Moderate to large joint effusion. Diffuse osteopenia. Otherwise negative." DVT prophylaxis ordered?: Yes; TEDs and Sequentials ASSESSMENT AND PLAN: Patient is a 50-year-old female presents to the ED for agitation and insomnia found to have altered mental status with a GCS score of 4. PROBLEMS: # Possible RA flare vs Septic Joint - pt has b/l hand and wrist swelling that are tender to palpation and painful and swollen - Right knee is hot, painful and swollen - will obtain X-ray of b/l wrist and hand as well as x-ray of Right Knee - will place pt on IV daptomycin for antimicrobial coverage - ID consult was placed; we appreciate their input in the care of this patient - Ultrasound needle placement is ordered for arthrocentesis to be done as well as fluid analysis - will start Toradol for pain 5-7 as well as Prednisone 40mg daily for treatment of RA #AMS 2/2 Methamphetamine use and Seroquel as well as 3 doses of Ativan - pt today is AAOx4; she is able to answer question appropriately - sitter for any possible agitation; Ativan prn for agitation - seizure precautions - fall precautions #Hypokalemia with value of 2.7 possible due to poor oral intake - much improved after 6 K-runs (2.7 -> 3.7) - 48 hour telemetry due to electrolyte imbalance #DVT prophylaxis - TEDs and Sequentials as pt is NPO with aspiration precautions DISPOSITION: pending improvement w/ RA flare vs Septic Joint VS, I&O, 24H, [facility] Vital Signs/I&O Vital Signs Date Time Temp Pulse Resp B/P (MAP) Pulse Ox O2 Delivery O2 Flow Rate FiO2 11/12/20 08:45 123/83 11/12/20 08:00 99.3 101 20 97 Room Air 11/11/20 12:50 1.0 I&O- Last 24 Hours up to 6 AM 11/12/20 06:00 Intake Total 300 ml Output Total 800 ml Balance -500 ml Laboratory Data 24H LABS Laboratory Tests 2 11/11/20 10:52: Anion Gap 6L, Glomerular Filtration Rate > 60.0, Calcium Level 8.1L, Total Bilirubin 0.4, Aspartate Amino Transf (AST/SGOT) 25, Alanine Aminotransferase (ALT/SGPT) 17, Alkaline Phosphatase 105, Total Protein 6.0L, Albumin 2.4#L, Albumin/Globulin Ratio 0.7L 11/11/20 18:10: Anion Gap 5L, Glomerular Filtration Rate > 60.0, Calcium Level 8.4L CBC/BMP Laboratory Tests 11/11/20 10:52 11/11/20 18:10 Microbiology Microbiology 11/11/20 Blood Culture, Received Pending 11/11/20 Blood Culture, Received Pending GME ATTESTATION GME ATTESTATION My faculty preceptor for this patient encounter was physically present during the encounter and was fully available. All aspects of the patient interview, examination, medical decision making process, and medical care plan development were reviewed and approved by the faculty preceptor. The faculty preceptor is aware and concurs with the plan as stated in the body of this note and will attest to such by his/her cosignature. Danya Christian DO Nov 12, 2020 11:37
[2020-11-12] MEDS ORDERED: DAPTOmycin 330 MG in NS 50 ML IV SCH (16:00)
[2020-11-12] MEDS: OMEPRAZOLE 20 MG CAP PO SCH (20:57)
[2020-11-12] MEDS: estradioL 0.5MG HALF-TAB PO SCH (20:58)
[2020-11-12] MEDS: HYDROXYCHLOROQUINE 200 MG TAB PO SCH (20:58)
[2020-11-12] MEDS: ASPIRIN 81MG ENTERIC TABLET PO SCH (20:58)
[2020-11-12] MEDS: KETOROLAC TROMETHAMINE 10 MG TAB PO PRN (20:58)
[2020-11-12] MEDS ORDERED: QUEtiapine FUMARATE 50MG TAB PO PRN (21:30)
[2020-11-13] VITALS: BP 98/66
[2020-11-13] MEDS: D5W/0.45% SODIUM CHLORIDE 1,000 ML IV SCH ×2 (02:56→14:03)
[2020-11-13 04:00] VITALS: BP 94/94
[2020-11-13] MEDS ORDERED: QUEtiapine FUMARATE 25 MG TAB PO PRN (07:35)
[2020-11-13 07:47] VITALS: BP 97/55
[2020-11-13 08:21] VITALS: BP 97/55
[2020-11-13] MEDS: NIFEdipine 10 MG CAP PO SCH ×2 (08:32→15:45)
[2020-11-13] MEDS: GABAPENTIN 300 MG CAP PO SCH ×2 (08:32→15:45)
[2020-11-13] MEDS: KETOROLAC TROMETHAMINE 10 MG TAB PO PRN (08:32)
[2020-11-13] MEDS ORDERED: predniSONE 20 MG TAB PO SCH (09:00)
[2020-11-13] MEDS ORDERED: BUPRENORPHINE/NALOXONE 8-2MG SUBLINGUAL TABLET(SUBOXONE) SL SCH (09:00)
--- NOTE | 2020-11-13 11:12 | CR ---
CONSULTATION DATE: 11/11/2020 REASON FOR CONSULTATION: I was asked to consult by Dr. Sheehan for evaluation of right knee effusion in a patient with a known history of a large endocarditis and IV drug abuse. HISTORY OF PRESENT ILLNESS: Mrs. Doty is a 50-year-old female who presented to the emergency room with agitation and insomnia after she had used IV methamphetamines for the past three days before hospitalization. The patient also took an extra dose of Seroquel to help her sleep. When she arrived to the emergency room, she was agitated, was given Ativan 1 mg times three doses and then became unresponsive. She stated that she was having problems with her knee pain for about two weeks before she presented to the emergency room with some swelling. The patient has a history of rheumatoid arthritis and had been on Plaquenil through the rheumatology clinic. She denied having any fever or chills. She has a chronic cough but she is a smoker. She denied any shortness of breath. She has chronic low back pain and was supposed to see Dr. Marino for followup on chronic back infection but she missed her appointment when she was in the hospital. 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 In June of 2001, she had recurrent staph infection with Methicillin-resistant staph aureus (MRSA) and was found to have an epidural abscess requiring lumbar surgery and another eight weeks of IV antibiotics. History of rheumatoid arthritis. History of IV drug abuse. Photosensitivity to doxycycline. History of vasculitis. Tobacco abuse. IV amphetamine abuse. Narcotic abuse on Sublocade injectable monthly. 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 Hepatitis C with spontaneous remission. History of suicidal ideation as a teen with cutting. PAST SURGICAL HISTORY: x2. Cholecystectomy. Cervical surgery with titanium cage. Lumbar surgery with fusion and rods in [place] in 2013. Inguinal hernia repair and hysterectomy. SOCIAL HISTORY: She is single. She has three kids. She is . She smokes one pack a day. She has a mother and her step-mother who both try to help her but they are frustrated with her continued lapse into drug use. She lives along in [place]. FAMILY HISTORY: Father of coronary artery disease and CVA. ALLERGIES: PENICILLIN, SULFA, TRAMADOL, TRIMETHOPRIM and VANCOMYCIN. LABORATORY DATA: White count 7.3, hemoglobin 13.6, hematocrit 40.2, platelets 283; 66% neutrophils, 23% lymphocytes, 8% monocytes. Sodium 139, potassium 3.7, chloride 106, bicarb 28, BUN 7, creatinine 0.51, glucose 111, calcium 8.4. AST 25, ALT 17, alkaline phosphatase 105, total protein 6, albumin 2.4. TSH 0.313, free T4 1.63. HCG negative. Drug screen was positive for cannabinoids and amphetamines. Alcohol level less than 0.003. Tylenol 13.9 and salicylates 3.6. SARS COVID 2 negative. Influenza A and B and RSV are negative. IMAGING DATA: Knee x-ray showed moderate to large effusion, osteopenia; otherwise, negative. Hand x-ray: Bilateral erosive arthropathy on wrist with erosion seen on the wrist radiograph and soft tissue swelling with metacarpophalangeal (MCP) and small proximal interphalangeal. Head CT: No acute intracranial abnormalities. MEDICATIONS: 1. Prednisone 40 mg daily 2. Seroquel 50 mg p.o. p.r.n. 3. Daptomycin 330 mg IV q. 24 hours 4. Toradol 10 mg p.o. q. 6 p.r.n. 5. Tylenol 650 mg p.o. q. 4 p.r.n. 6. Estradiol 0.5 mg p.o. nightly 7. Omeprazole 40 mg p.o. nightly 8. Plaquenil 200 mg p.o. nightly 9. Aspirin 81 mg p.o. nightly 10. Nifedipine 10 mg p.o. four times a day 11. MiraLAX one packet daily p.r.n. 12. Colace 100 mg twice a day p.r.n. PHYSICAL EXAMINATION: She is a pleasant female in no acute distress. Temperature is 98.8, pulse 101, respirations 16, blood pressure 100/66, oxygen saturation 99% on room air. Normal S1, S2. Tachycardic. No murmurs, rubs or gallops appreciated. Lungs are clear. No wheezes, rales or rhonchi. Abdomen soft, nontender. No hepatomegaly. Back: Mild lumbosacral tenderness at L4, L5, S1. Previous healed scars of lumbar surgery. Extremities: No cyanosis, clubbing or edema. She has multiple joint swelling including the right knee. Per musculoskeletal exam, right knee has a large effusion but normal range of motion. Mildly warm to touch but not red or erythematous. Range of motion is over 90 degrees. Left big toe is swollen with erythema. Hands with bilateral swelling especially around the wrist. Skin has multiple ulcerations with scabs measuring about 2-3 cm where she was itching, scratching, also excoriation riki from IV drug use. IMPRESSION: This is a 50-year-old female with a history of Methicillin-resistant staph aureus (MRSA) endocarditis in March of 2019 complicated by epidural abscess and lumbar discitis, status post incision and drainage (I and D) and treatment with eight weeks of IV antibiotics followed by chronic doxycycline treatment. This summer she had a lot of photosensitivity dermatitis and was transitioned to Dalvance every 10 days for maintenance until summer was over last dose was 10/09/2020. She had problems with IV access and, therefore did not always take her infusion . The patient also has rheumatoid arthritis maintained on Plaquenil with Raynaud's phenomenon and ischemic ulcers. She follows up with Dr. Foster from rheumatology and Dr. Vaughan for history of vasculitis.Her multiple joint involvement could be a manifestation of rheumatoid arthritis or with possibly pseudogout with probably articular involvement. Septic arthritis is also in the differential especially in the setting of IV drug use although the knee is not read and she has good range of motion. She is afebrile which makes the diagnosis of septic arthritis less likely. She has had chronic problems with drug abuse especially with methamphetamines. She is on buprenorphine injectable (Sublocade) which she gets injected every month for rior history of narcotic use. At this point, her problem was amphetamine abuse with agitation and insomnia. The patient has mentioned to me that she would rather be, she was very depressed and sometimes she feels she would rather than be alive. She has disappointed all her family members including her mom and her step-mom, and she is frustrated with herself. She follows up at the [facility] and does counseling through there and has discussed with them a long-term rehab last month but since she was clean she was not eligible. PLAN: At this point, I would suggest to discontinue IV antibiotics unless there is a source of infection or bacteremia. I would not recommend using prednisone until endocarditis and septic arthritis is ruled out. I would suggest using anti-inflammatories, either naproxen or Ketorolac twice a day for anti-inflammatory. Suggest obtaining an arthrocentesis as soon as possible to allow infectious process, septic arthritis or crypto-induced arthritis or rheumatoid arthritis. Obtain a CT back to follow up on chronic back infection and see if the patient needs to continue on maintenance antibiotics. Obtain ESr and CRP tomorrow. Repeat hepatitis C RNA and HIV testing . MTDD
[2020-11-13] MEDS ORDERED: LIDOCAINE 1% MDV 20ML VIAL As Ordered ONE (11:29)
[2020-11-13] MEDS ORDERED: SODIUM BICARBONATE 8.4% INJ 50MEQ 50 ML VIAL As Ordered ONE (11:29)
[2020-11-13 12:00] VITALS: BP 97/61
[2020-11-13] MEDS: ACETAMINOPHEN TAB 650MG DOSE (2X325MG) PO PRN (12:26)
[2020-11-13 13:26] LABS: CRYSTALS, BODY FLUID NONE SEEN (NONE SEEN); SOURCE, BODY FLUID CRYSTALS RT KNEE
[2020-11-13 13:29] LABS: SOURCE, BODY FLUID RT KNEE; SYNOVIAL FLUID COLOR YELLOW (COLORLESS)
[2020-11-13 13:47] LABS: SOURCE, BODY FLUID GLUCOSE RT KNEE; SOURCE, BODY FLUID URIC ACID RT KNEE
[2020-11-13 13:52] LABS: MUCIN CLOT TEST 4+ (4+)
[2020-11-13] MEDS ORDERED: KETOROLAC TROMETHAMINE 10 MG TAB PO SCH (15:00)
[2020-11-13 16:00] VITALS: BP 100/65
--- NOTE | 2020-11-13 16:28 | REP ---
INDICATION: EVAL FOR JOINT FLUID R/O SEPTIC JOINT--RIGHT KNEE The patient has a history of right knee effusion COMPARISON: None. TECHNIQUE: The procedure was performed by ALEXYS Alvarado, under the direct supervision of Dr. Ramirez The risks and benefits of the procedure were explained to the patient and an informed consent was obtained both verbally and written. Directly prior to the start of the procedure a formal time-out was completed in the procedure room. The right knee was evaluated using ultrasound guidance. A pocket of fluid was visualized on the lateral aspect just superior to the patella. The skin was prepped and draped in a sterile fashion. Five ML of buffered lidocaine was used as a local anesthetic. An 8-Sami multi side-hole catheter was inserted using trocar technique. FINDINGS: 25 mL of cloudy joint fluid was removed and sent to the laboratory for further analysis. The catheter was removed and a sterile dressing was applied. The patient tolerated the procedure well and there were no immediate complications, and was sent back up to the unit. IMPRESSION: Ultrasound-guided right knee aspiration. <Electronically signed by Mary Bryant > 11/13/20 134 <Electronically signed by Josué Ramirez > 11/13/20 [id number]
[2020-11-13] MEDS ORDERED: GABA-283 PO (17:05)
[2020-11-13] MEDS ORDERED: QUET100T2 PO (17:05)
[2020-11-13] MEDS ORDERED: NAPR-837 PO (17:05)
--- NOTE | 2020-11-13 18:21 | DS.PDOC ---
Discharge Summary General Date of Admission Nov 11, 2020 at 11:23 Date of Discharge November 13, 2020 Discharge Summary PROCEDURES PERFORMED DURING STAY: Right knee arthrocentesis ADMITTING DIAGNOSES: 1. Altered Mental Status 2. Hypokalemia 3. Rheumatoid arthritis 4. Hypertension 5. Hx of epidural abscess requiring lumbar surgery DISCHARGE DIAGNOSES: 1. Rheumatoid arthritis 2. Hypertension 3. Hx of epidural abscess requiring lumbar surgery COMPLICATIONS/CHIEF COMPLAINT: Altered mental status and Hypokalemia HISTORY OF PRESENT ILLNESS: Patient is a 50-year-old female presents to the ED for agitation and insomnia. As per the ED, patient came in because she was unable to sleep for the past 3 days as she took methamphetamines. To combat her insomnia, she took her more than her prescribed dose of Seroquel. During her stay in the ED, patient became agitated and needed 3 x 1mg Ativan to calm down. However, patient then became unresponsive. When patient was seen in the ED, she had a GCS score of 4; there was no eye-opening, no verbal response, motor response only to sternal rub. Hospitalist service was consulted for AMS 2/2 Methamphetamine use and Seroquel as well as 3 doses of Ativan as well as hypokalemia with value of 2.7. HOSPITAL COURSE: Upon admission patient had a GCS score of 4 and only responded to sternal rubs. Incidental discovery of hypokalemia with a value of 2.7 was discovered in her labs probably due to poor oral intake in the past couple of days. She was given a total of 6 K-runs to supplement her potassium; after 6 K- runs, value went up to 3.7. She was placed on Telemetry as well as having EKGs due to her severe hypokalemia. Pt has not had any acute ST changes and had remained stable. After spending one night inpatient, she became responsive, alert and oriented to date and place and her altered mental status had resolved. Patient states she has a past medical history of HTN, RA and epidural abscess requiring lumbar surgery and possible extended antibiotic use. Patient was found to have bilateral hand and wrist swelling as well as right knee swelling. She did say that she had a past medical history of rheumatoid arthritis for which she is taking Plaquenil. Patient was then placed on prednisone as well as ketorolac for pain and anti-inflammatory properties. An arthrocentesis with analysis of fluid was obtained to ascertain if it was a possible rheumatoid arthritis flareup versus a septic joint. Lab values showed an ESR of 39. Analysis of her right knee fluid showed 9645 WBCs, 3 RBCs, mononuclear cells 52.8. As per infectious disease, this is not a septic joint. Patient will be sent home on a decreased dose of her gabapentin (300 to 200mg TID), Seroquel (200 to 100mg), and naproxen 500 mg twice daily for the next 10 days. Patient is also aware that she will need to follow-up with rheumatology when she is discharged from the hospital for her rheumatoid arthritis. She is also aware that she will need to follow-up with infectious disease for her past history of an epidural abscess requiring lumbar surgery. DISCHARGE MEDICATIONS: Please see below. ALLERGIES: Please see below. PHYSICAL EXAMINATION ON DISCHARGE: VITAL SIGNS: Please see below. GENERAL: Patient awake and responding appropriately; in no acute distress; in very good spirits HEENT: Head normocephalic atraumatic; no lesions, bumps noted CARDIOVASCULAR EXAMINATION: Regular rate and rhythm; no murmurs noted RESPIRATORY EXAMINATION: Clear to auscultation bilaterally; no wheezing, rales, rhonchi noted ABDOMINAL EXAMINATION: Normoactive bowel sounds; soft, nondistended, no tenderness to palpation EXTREMITIES: Bilateral wrist and hand painful & swollen R>L; Right Knee painful & swelling; very much improved from yesterday SKIN: has chronic lesions on all extremities NEUROLOGICAL EXAMINATION: CN II-XII grossly intact; no focal neurological deficits LABORATORY DATA: Please see below. IMAGING: Head CT 11/12: "No acute intracranial abnormality." Wrist X-ray 11/12: "Advanced bilateral and symmetric erosive arthropathy, question rheumatoid arthritis. No fracture seen." Hand X-ray 11/12: "No fracture seen. Advanced erosive arthropathy as noted above." Knee X-ray 11/12: "Moderate to large joint effusion. Diffuse osteopenia. Otherwise negative." Needle Aspiration US: "Ultrasound-guided right knee aspiration." Right knee fluid analysis: WBC 9645; RBC 3; mononuclear % 52.8; polymorphonuclear % 487.2; no fluid crystals PROGNOSIS: Good ACTIVITY: As tolerated DIET: As tolerated DISCHARGE PLAN: Discharge to home DISPOSITION: Discharge to home DISCHARGE INSTRUCTIONS: 1. Please follow-up with rheumatology within the next week for rheumatoid arthritis flareup. 2. Please follow-up with infectious disease within the next 2 weeks for past history of epidural abscess requiring lumbar surgery. 3. Follow-up with PCP within the next 2 weeks. 4. Swelling and pain in your hands and knee gets worse, please go to the ER for further evaluation. DISCHARGE CONDITION: Stable TIME SPENT ON DISCHARGE: 33 minutes. Vital Signs/I&Os Vital Signs Date Time Temp Pulse Resp B/P (MAP) Pulse Ox O2 Delivery O2 Flow Rate FiO2 11/13/20 12:00 98.3 97 22 97/61 (73) 98 Room Air 11/11/20 12:50 1.0 I&O- Last 24 Hours up to 6 AM 11/13/20 06:00 Intake Total 1506.6 ml Output Total 2200 ml Balance -693.4 ml Laboratory Data Labs 24H Laboratory Tests 2 11/13/20 05:00: Erythrocyte Sedimentation Rate 39H, HIV Antigen/Antibody Combo Qual NEGATIVE 11/13/20 11:55: Body Fluid Source RT KNEE, Body Fluid WBC (Auto) 9645H, Body Fluid RBC (Auto) 3, Body Fluid Mononuclear Cells % Auto 52.8H, Fluid Polymorphonuclear Cell % Auto 47.2H, Body Fluid Crystals NONE SEEN, Body Fluid Crystal Source RT KNEE, Body Fluid Glucose Source RT KNEE, Body Fluid Glucose , Body Fluid Uric Acid , Body Fluid Uric Acid Source RT KNEE, Body Fluid Rheumatoid Factor Screen , Body Fluid Rheumatoid Factor Source RT KNEE, Synovial Fluid Source RT KNEE, Synovial Fluid Color YELLOW, Synovial Fluid Appearance HAZY, Synovial Fluid Mucin Clot 4+ Microbiology Microbiology 11/13/20 Gram Stain - Final, Resulted 11/13/20 Body Fluid Culture, Resulted Pending 11/11/20 Blood Culture - Preliminary, Resulted No Growth after 48 hours. All Specime... 11/11/20 Blood Culture - Preliminary, Resulted No Growth after 48 hours. All Specime... Discharge Medications Scheduled Aspirin (Aspirin EC) 81 Mg Tablet.dr, 81 MG PO QHS, (Reported) Buprenorphine HCl/Naloxone HCl (Suboxone 8 mg-2 mg Sl Film) 1 Each Film, 2 STRIP SL DAILY, (Reported) Ergocalciferol (Vitamin D2) (Vitamin D2) 50,000 Units Cap, 50,000 UNITS PO QWEEK, (Reported) Wednesday Estradiol (Estrace) 0.5 Mg Tablet, 0.5 MG PO QHS, (Reported) Gabapentin (Gabapentin) 300 Mg Capsule, 300 MG PO TID, (Reported) Gabapentin (Gabapentin) 400 Mg Capsule, 200 MG PO TID Hydroxychloroquine Sulfate (Hydroxychloroquine Sulfate) 200 Mg Tablet, 200 MG PO QHS, (Reported) Naproxen (Naprosyn) 500 Mg Tablet, 500 MG PO BID for pain Nifedipine (Nifedipine) 10 Mg Capsule, 10 MG PO TID, (Reported) Omeprazole (Omeprazole) 40 Mg Capsule.dr, 40 MG PO QHS, (Reported) Quetiapine Fumarate (Quetiapine Fumarate) 200 Mg Tablet, 200 MG PO QHS, (Reported) Sildenafil Citrate (Sildenafil Citrate) 20 Mg Tablet, 20 MG PO DAILY, (Reported) Venlafaxine HCl (Venlafaxine HCl ER) 75 Mg Cap.er.24h, 225 MG PO QHS, (Reported) Scheduled PRN Albuterol Sulfate (Ventolin Hfa) 18 Gm Hfa.aer.ad, 2 PUFF INH Q6H PRN for SOB/WHEEZING, (Reported) Bisacodyl (Bisacodyl) 5 Mg Tablet.dr, 5 MG PO DAILY PRN for CONSTIPATION, (Reported) Docusate Sodium (Docusate Sodium) 100 Mg Capsule, 100 MG PO BID PRN for CONSTIPATION, (Reported) Fluconazole (Fluconazole) 150 Mg Tablet, 150 MG PO 1XWK PRN for YEAST INFECTION, (Reported) Hydroxyzine HCl (Hydroxyzine HCl) 50 Mg Tablet, 50 MG PO BID PRN for ANXIETY, (Reported) Ondansetron (Ondansetron Odt) 8 Mg Tab.rapdis, 8 MG PO DAILY PRN for NAUSEA OR VOMITING, (Reported) Polyethylene Glycol 3350 (Miralax) 17 Gm Powd.pack, 17 GM PO DAILY PRN for CONSTIPATION, (Reported) Quetiapine Fumarate (Quetiapine Fumarate) 25 Mg Tablet, 25 MG PO TID PRN for MOOD, (Reported) Quetiapine Fumarate (Quetiapine Fumarate) 100 Mg Tablet, 1 TAB PO QPMP PRN for SLEEP Sennosides/Docusate Sodium (Senna-S Tablet) 1 Each Tablet, 1 TAB PO BID PRN for CONSTIPATION, (Reported) Miscellaneous Medications [Comments] , (Reported) [facility] Allergies Coded Allergies: vancomycin (Verified Allergy, Severe, 9/24/20) Penicillins (Verified Allergy, Intermediate, RASH, 11/30/19) Sulfa (Sulfonamide Antibiotics) (Verified Allergy, Intermediate, RASH, 11/30/19) trimethoprim (Verified Allergy, Intermediate, RASH, 11/30/19) tramadol (Verified Adverse Reaction, Intermediate, ITCHING, URINARY RETENTION, 11/30/19) GME ATTESTATION GME ATTESTATION My faculty preceptor for this patient encounter was physically present during the encounter and was fully available. All aspects of the patient interview, examination, medical decision making process, and medical care plan development were reviewed and approved by the faculty preceptor. The faculty preceptor is aware and concurs with the plan as stated in the body of this note and will attest to such by his/her cosignature. Danya Christian DO Nov 13, 2020 18:21
[2020-11-13] MEDS ORDERED: VENLAFAXINE **XR** 75MG CAPSULE PO SCH (21:00)
[2020-11-14] MEDS ORDERED: BUPRENORPHINE/NALOXONE 8-2MG SUBLINGUAL TABLET(SUBOXONE) SL SCH (09:00)
[2020-11-14 13:08] LABS: HEPATITIS C QUANTITATION HCV Not Detected IU/mL (.)
== END 2020-11-13 19:30 | disposition home or self-care (01) | DRG 812 ==
LOC: M ED 02:49 → M ED INP 11:23 → ENRESERV 12:08 → M PCU 13:06
PROVIDERS: ADMIT Internal Medicine; ATTEND Internal Medicine
PROC: 0S9C3ZZ Drainage of Right Knee Joint, Percutaneous Approach (ICD-10-PCS; principal; 2020-11-13 09:00)
DX: T43.501A Poisoning by unspecified antipsychotics and neuroleptics, accidental (unintentional), initial encounter (principal); I10 Essential (primary) hypertension; M06.9 Rheumatoid arthritis, unspecified; E87.6 Hypokalemia; Z79.82 Long term (current) use of aspirin; Z79.899 Other long term (current) drug therapy; Z88.0 Allergy status to penicillin; Z88.2 Allergy status to sulfonamides; Z88.8 Allergy status to other drugs, medicaments and biological substances; M25.461 Effusion, right knee

== ENCOUNTER → 2021-01-06 | Outpatient (CLI) | payer OTHER ==
[~2021-01-06] MED LIST changes: +COMMENTS; -CYMB60CA3 PO; +CYMB60CA4 PO; +GABA-283 PO; +NAPR-837 PO; +SILD20TA11 PO
[2021-01-06 15:34] LABS: BASO # 0.1 10^3/uL (0.0-0.2); BASO % 0.5 % (0.0-1.0); EOS # 0.4 10^3/uL (0.0-0.5); EOS % 3.5 % (0.0-3.0); HEMATOCRIT 41.5 % (36.0-47.0); HEMOGLOBIN 13.4 g/dl (12.0-15.5); LYMPH # 1.8 10^3/uL (1.5-5.0); LYMPH % 16.3 % (24.0-44.0); MEAN CORPUSCULAR HEMOGLOBIN 27.4 pg (27.0-33.0); MEAN CORPUSCULAR HGB CONC 32.3 g/dl (32.0-36.5); MEAN CORPUSCULAR VOLUME 84.9 fl (80.0-96.0); MONO # 0.7 10^3/uL (0.0-0.8); MONO % 6.8 % (2.0-8.0); NEUTROPHILS # 7.9 10^3/uL (1.5-8.5); NEUTROPHILS % 72.4 % (36.0-66.0); PLATELET COUNT, AUTOMATED 383 10^3/uL (150-450); RED BLOOD COUNT 4.89 10^6/uL (4.00-5.40); WHITE BLOOD COUNT 10.9 10^3/uL (4.0-10.0)
[2021-01-06 15:59] LABS: ALBUMIN 3.5 GM/DL (3.2-5.2); ALT/SGPT 23 U/L (12-78); BILIRUBIN,TOTAL 0.6 MG/DL (0.2-1.0); BLOOD UREA NITROGEN 13 MG/DL (7-18); CALCIUM LEVEL 9.6 MG/DL (8.5-10.1); CARBON DIOXIDE LEVEL 29 MEQ/L (21-32); CHLORIDE LEVEL 103 MEQ/L (98-107); CREATININE FOR GFR 0.85 MG/DL (0.55-1.30); GLOMERULAR FILTRATION RATE > 60.0 (>51); GLUCOSE, FASTING 103 MG/DL (70-100); POTASSIUM SERUM 4.1 MEQ/L (3.5-5.1); SODIUM LEVEL 138 MEQ/L (136-145); TOTAL PROTEIN 7.7 GM/DL (6.4-8.2)
[2021-01-06 17:00] LABS: ERYTHROCYTE SEDIMENTATION RATE 68 mm/hr (0-30)
== END ==
LOC: M LAB 14:24
PROVIDERS: ATTEND Internal Medicine Infectious Disease
DX: I07.9 Rheumatic tricuspid valve disease, unspecified (principal)

== ENCOUNTER → 2021-01-07 | Outpatient (REF) | payer OTHER, MEDICAID ==
[2021-01-07 17:26] LABS: SOURCE, BODY FLUID RT KNEE; SYNOVIAL FLUID COLOR YELLOW (COLORLESS)
[2021-01-07 18:34] LABS: CRYSTALS, BODY FLUID NONE SEEN (NONE SEEN); SOURCE, BODY FLUID CRYSTALS RT KNEE
== END ==
LOC: M SFHCRHEU 14:59
PROVIDERS: ATTEND Internal Medicine Rheumatology
DX: M05.742 Rheumatoid arthritis with rheumatoid factor of left hand without organ or systems involvement (principal)

== ENCOUNTER 2021-02-14 05:14 | Emergency (ER) | payer MEDICAID, OTHER ==
[~2021-02-14] VITALS: Ht 147.3 cm; Wt 50.0 kg
[2021-02-14 05:15] VITALS: BP 109/80
--- OUTSIDE RECORDS SUMMARY | 2021-02-14 05:24 | CCD ---
Author Author [facility] [employer] [facility] [employer] Organization [facility] [employer] Address Unknown Phone Unavailable Care Team Providers Care Quality Systems Specialist Name Role Phone Alaina Foster Unavailable PROBLEMS ALLERGIES ENCOUNTERS from 1970 to 2021-01-22 IMMUNIZATIONS SOCIAL HISTORY REASON FOR REFERRAL No Information VITAL SIGNS MEDICATIONS PROCEDURES No Information RESULTS No Results REASON FOR VISIT MEDICAL (GENERAL) HISTORY Goals Section Health Concerns MEDICAL EQUIPMENT No Information MENTAL STATUS FUNCTIONAL STATUS ASSESSMENTS No Information PLAN OF TREATMENT Insurance Providers
--- OUTSIDE RECORDS SUMMARY | 2021-02-14 05:24 | CCD ---
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 Active confirmed 806772662 Problem Septic embolism I76 Active confirmed 4140 20402 Problem Rheumatoid arthritis with po sitive rheumatoid factor, involving unspecified site M05.9 Active confirmed 316990876 Problem 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 Active confirmed 72697062 Problem Aphthous ulcer K12.0 Active confirmed 03756 7000 Problem 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 Active confi rmed 81322215 Problem Gastroesophageal reflux disease, esophagitis pre sence not specified K21.9 Active confirmed 224722993 Problem Methicillin resistant Staphy lococcus aureus infection as the cause of diseases classified elsewhere B95.62 Active confirmed 996113000 Problem Lumbosacral radiculopathy due to degenerative chayo int disease of spine M47.27 Active confirmed 349978629 Problem MRSA (methicillin resistant staph aureus) culture positive Z22.322 Active confirmed 387590213 Problem Generalized anxiety disorder F41.1 Active confirme d 81190427 Problem Psoas muscle abscess K68.12 Active confirmed 555577641 Problem Primary osteoarthritis, 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 Active confirmed 839635303249366 Problem Other specified acute skin changes due to ultraviolet radiation L56.8 Active confirmed 34911964 Problem Gangrene of finger I96 Active confirmed 1 09312336 Problem Primary osteoarthritis, right hand M19.041 Activ e confirmed 74123815 Problem Bilious vomiting with nausea R11.14 Active confirme d 96953559 Problem Pneumonia due to infectious organism, unspecified laterality, unspecified part of lung J18.9 Active confirmed 55018 2009 Problem IV drug abuse F19.10 Active confirmed 523869 006 Problem Acrocyanosis I73.89 Active confirmed 3791370 6 Problem Surgical menopause, symptomatic E89.41 Active confi rmed 579266303 Problem Raynaud's disease without gangrene I73.00 Activ e confirmed 601614990 Problem Acute midline low back pain without sciatica M54.5 Active confirmed 680594551 Problem Epidural abscess, L2-L5 G06.1 Active confirmed 393124533 Problem Bronchitis J40 Active confirmed 03673487 Problem Rheumatoid arthritis involvi ng left hand with positive rheumatoid factor M05.742 Active confirmed 4005391729854607 Problem Swelling of finger of right hand M79.89 Active confirmed 94200155369290182 Problem Rheumatoid arthritis involvi ng multiple sites with positive rheumatoid factor M05.79 Active confirmed 956179597 ALLERGIES Allergen (clinical drug ingredient) Drug/Non Drug Allergy do cumented on EMR Reaction Allergy Type Onset Date Status Sulfasalazine Sulfa Antibiotics Hives Drug Allergy 05/01/2019 Ac tive Penicillin (For Allergies Use Only) Hives Drug Allerg y Active vancomycin Vancomycin HCl(ND Code:[address]-85) Hives Drug All ergy 05/01/2019 Active sulfamethoxazole / trimethoprim Bactrim(ND Code:[address]-45) Hives Drug Allergy 05/01/2019 Active ENCOUNTERS from 1970 to 2021-02-12 Encounter Location Date Provider Diagnosis [facility] Rheumatology [address] [place] [address] [place] [address] Jan, Alaina Foster IMMUNIZATIONS Vaccine Route Administration Date Status Influenza 18 yrs & older Flublok IM Intramuscular Nov 21, 2020 Administered Hepatitis A Adult 1.0mL Havrix Unknown Mar 31, 2019 A dministered SOCIAL HISTORY Tobacco Use: Social History Observation Description Date Details (start date - stop date) Current Smoker Sex Assigned At : Social History Observation Description Sex Assigned At Unknown Education: Question Answer Notes Level of Education: Finished High School Language: Question Answer Notes Languages spoken: Nepali Shinto: Question Answer Notes Shinto 08 Latter Day Sexual Hx: Question Answer Notes Had sex in the last 12 months (vaginal, oral, or anal)? Yes LMP: hysterectomy Have you ever had an STD? Yes with Men only Use protection? No Alcohol Screening: Question Answer Notes Did you have a drink containing alcohol in the past year? No Points 0 Interpretation Negative Tobacco Use: Question Answer Notes Are you a: current smoker How many cigarettes a day do you smoke? 6-10 REASON FOR REFERRAL No Information VITAL SIGNS No information MEDICATIONS Medication SIG (Take, Route, Frequency, Duration) Notes Start Da te End Date Status NIFEdipine 10 MG 1 capsule as needed Orally every 8 hrs for 30 Days Active Venlafaxine HCl ER 150 MG 1 tablet with food Orally Once a day Active Ondansetron 8 MG 1 tablet on the tongue and a llow to dissolve as needed Orally Once a day for 30 day(s) Active Nitro-Bid 2 % as directed Transdermal bid for 28 day(s) Active MiraLax 17 GM/SCOOP as directed Orally Active Gabapentin 300 MG 1 capsule Orally three times daily Active Omeprazole 20 MG 1 capsule 30 minutes before morning meal Orally Lavern y Active SM Gentle Laxative 5 MG TAKE ONE TABLET BY MOUTH EVERY DAY NEEDE D for 30 Active Estradiol 0.5 MG 1 tablet Orally Once a day for 30 day(s) Active predniSONE 10 MG take 2 tabs daily in the am for 10 days then decrease to 1 tab daily Orally Once a day for 90 day(s) Jan, Active Dulcolax 5 MG 1 tablet as needed Orally Once a day for 30 day(s) Active SEROquel 200 MG 1 tab Orally Once a day Active Plaquenil 200 MG 1 tab Orally DAILY for 90 day(s) Active Sildenafil Citrate 20 MG 1 tablet Orally Once a day for 90 day(s ) Sep, Active Sublocade 300 MG/1.5ML as directed Subcutaneous Active Senna 8.6 MG 2 tablets at bedtime as needed Orally Once a day for 3 0 day(s) Active Aspirin 81 81 MG 1 tablet Orally Once a day Active PROCEDURES No Information RESULTS No Results REASON FOR VISIT Medication request for [facility] MEDICAL (GENERAL) HISTORY Type Description Date Medical [...] I&D done by Dr. 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 Hospitalization History kidney failure 05/2019 Hospitalization History left finger infection 11/2019 Hospitalization History infection 02/2020 Hospitalization History right middle 07/2020 Hospitalization History not feeling well 08/04/20 Goals Section No Information Health Concerns No Information MEDICAL EQUIPMENT No Information MENTAL STATUS No Information FUNCTIONAL STATUS No Information ASSESSMENTS No Information PLAN OF TREATMENT Medication Medication Name Sig Start Date Stop Date predniSONE 10 MG take 2 tabs daily in the am for 10 days then decrease to 1 tab daily Orally Once a day for 90 day(s) Jan, Plaquenil 200 MG 1 tab Orally DAILY for 90 day(s) Nitro-Bid 2 % as directed Transdermal bid for 28 day(s) Sildenafil Citrate 20 MG 1 tablet Orally Once a day for 90 day(s ) Sep, Next Appt Details Provider Name:Kandice Bolanos, 2020-03 01:00:00 PM, [address] [facility], , [place], [address], Provider Name:Alaina Foster, 10:00:00 AM, [address] [facility], , [place], [address], Insurance Providers Payer Name Payer Address Payer Phone Insured Name Patient Relati onship to Insured Coverage Start Date Coverage End Date Subscriber Number Group Nu mber [facility] [address] [facility] [address] MYLES BLACKWELL self [id number] [facility] MEDICAID [facility] [address] [facility] [address] MYLES BLACKWELL self [id number]
--- OUTSIDE RECORDS SUMMARY | 2021-02-14 05:24 | CCD ---
Author Author [facility] Organization 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 Active confirmed 136907414 Problem Septic embolism I76 Active confirmed 4140 39525 Problem Rheumatoid arthritis with po sitive rheumatoid factor, involving unspecified site M05.9 Active confirmed 443157039 Problem 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 Active confirmed 03227862 Problem Aphthous ulcer K12.0 Active confirmed 35749 7000 Problem 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 Active confi rmed 99881122 Problem Gastroesophageal reflux disease, esophagitis pre sence not specified K21.9 Active confirmed 824937372 Problem Methicillin resistant Staphy lococcus aureus infection as the cause of diseases classified elsewhere B95.62 Active confirmed 440609367 Problem Lumbosacral radiculopathy due to degenerative chayo int disease of spine M47.27 Active confirmed 850140934 Problem MRSA (methicillin resistant staph aureus) culture positive Z22.322 Active confirmed 358295471 Problem Generalized anxiety disorder F41.1 Active confirme d 57000734 Problem Psoas muscle abscess K68.12 Active confirmed 383648985 Problem Primary osteoarthritis, 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 Active confirmed 813282293327913 Problem Other specified acute skin changes due to ultraviolet radiation L56.8 Active confirmed 57818865 Problem Gangrene of finger I96 Active confirmed 1 54142343 Problem Primary osteoarthritis, right hand M19.041 Activ e confirmed 02349872 Problem Bilious vomiting with nausea R11.14 Active confirme d 77041364 Problem Pneumonia due to infectious organism, unspecified laterality, unspecified part of lung J18.9 Active confirmed 28867 2009 Problem IV drug abuse F19.10 Active confirmed 810832 006 Problem Acrocyanosis I73.89 Active confirmed 0193260 6 Problem Surgical menopause, symptomatic E89.41 Active confi rmed 631949806 Problem Raynaud's disease without gangrene I73.00 Activ e confirmed 075405590 Problem Acute midline low back pain without sciatica M54.5 Active confirmed 382739040 Problem Epidural abscess, L2-L5 G06.1 Active confirmed 112651233 Problem Bronchitis J40 Active confirmed 65577269 Problem Rheumatoid arthritis involvi ng left hand with positive rheumatoid factor M05.742 Active confirmed 6874503173611856 Problem Swelling of finger of right hand M79.89 Active confirmed 47002658585343443 Problem Rheumatoid arthritis involvi ng multiple sites with positive rheumatoid factor M05.79 Active confirmed 318013159 ALLERGIES Allergen (clinical drug ingredient) Drug/Non Drug Allergy do cumented on EMR Reaction Allergy Type Onset Date Status Sulfasalazine Sulfa Antibiotics Hives Drug Allergy 05/01/2019 Ac tive Penicillin (For Allergies Use Only) Hives Drug Allerg y Active vancomycin Vancomycin HCl([facility] Code:[address]-02) Hives Drug All ergy 05/01/2019 Active sulfamethoxazole / trimethoprim Bactrim(ND Code:[address]-56) Hives Drug Allergy 05/01/2019 Active ENCOUNTERS from 1970 to 2021-01-29 Encounter Location Date Provider Diagnosis [address] [phone] [place] [address] Jan, Betty Jose IMMUNIZATIONS Vaccine Route Administration Date Status Influenza [...] School Language: Question Answer Notes Languages spoken: Bahraini Mormonism: Question Answer Notes Mormonism 08 Zoroastrianism Sexual Hx: Question Answer Notes Had sex [...] Information RESULTS No Results REASON FOR VISIT FYI MEDICAL (GENERAL) HISTORY Type Description Date Medical [...] I&D done by Dr. 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 with epidural abscess measuring 7 x 2 x 19 mm with anterior epidural inflammatory changes from L3-L4 bilateral psoas abscess from L2-L5 Medical History transesophageal echocardiogr am with pediatric probe showed a tricuspid valve vegetation 0.4x 0.7 cm with moderate tricuspid regurgitation at [facility] Dr Estephanie Agosto Surgical History c-sections Surgical [...] Provider Name:Kandice Bolanos, 2020-03 01:00:00 PM, [address] [facility], , [place], [address], Provider Name:Alaina Foster, 10:00:00 AM, [address] [facility], , [place], [address], Insurance Providers Payer Name Payer Address Payer Phone Insured Name Patient Relati onship to Insured Coverage Start Date Coverage End Date [facility] [address] [place], [place] [address] MYLES BLACKWELL self MEDICAID [employer] [address] [facility] [address] MYLES BLACKWELL self
--- OUTSIDE RECORDS SUMMARY | 2021-02-14 05:24 | CCD ---
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 Active confirmed 264483857 Problem Septic embolism I76 Active confirmed 4140 52872 Problem Rheumatoid arthritis with po sitive rheumatoid factor, involving unspecified site M05.9 Active confirmed 053829282 Problem 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 Active confirmed 19302859 Problem Aphthous ulcer K12.0 Active confirmed 02632 7000 Problem 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 Active confi rmed 81634919 Problem Gastroesophageal reflux disease, esophagitis pre sence not specified K21.9 Active confirmed 243776076 Problem Methicillin resistant Staphy lococcus aureus infection as the cause of diseases classified elsewhere B95.62 Active confirmed 145400489 Problem Lumbosacral radiculopathy due to degenerative chayo int disease of spine M47.27 Active confirmed 974334653 Problem MRSA (methicillin resistant staph aureus) culture positive Z22.322 Active confirmed 485387263 Problem Generalized anxiety disorder F41.1 Active confirme d 78476628 Problem Psoas muscle abscess K68.12 Active confirmed 618252278 Problem Primary osteoarthritis, 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 Active confirmed 842868730562588 Problem Other specified acute skin changes due to ultraviolet radiation L56.8 Active confirmed 52814875 Problem Gangrene of finger I96 Active confirmed 1 23734797 Problem Primary osteoarthritis, right hand M19.041 Activ e confirmed 84463692 Problem Bilious vomiting with nausea R11.14 Active confirme d 29836290 Problem Pneumonia due to infectious organism, unspecified laterality, unspecified part of lung J18.9 Active confirmed 40818 2009 Problem IV drug abuse F19.10 Active confirmed 953368 006 Problem Acrocyanosis I73.89 Active confirmed 0854347 6 Problem Surgical menopause, symptomatic E89.41 Active confi rmed 648993180 Problem Raynaud's disease without gangrene I73.00 Activ e confirmed 617280509 Problem Acute midline low back pain without sciatica M54.5 Active confirmed 056386044 Problem Epidural abscess, L2-L5 G06.1 Active confirmed 677164877 Problem Bronchitis J40 Active confirmed 65581070 Problem Rheumatoid arthritis involvi ng left hand with positive rheumatoid factor M05.742 Active confirmed 4320429017632012 Problem Swelling of finger of right hand M79.89 Active confirmed 81201112029172122 Problem Rheumatoid arthritis involvi ng multiple sites with positive rheumatoid factor M05.79 Active confirmed 274573995 ALLERGIES Allergen (clinical drug ingredient) Drug/Non Drug Allergy do cumented on EMR Reaction Allergy Type Onset Date Status Sulfasalazine Sulfa Antibiotics Hives Drug Allergy 05/01/2019 Ac tive Penicillin (For Allergies Use Only) Hives Drug Allerg y Active vancomycin Vancomycin HCl([facility] Code:[address]-04) Hives Drug All ergy 05/01/2019 Active sulfamethoxazole / trimethoprim Bactrim(ND Code:[address]-79) Hives Drug Allergy 05/01/2019 Active ENCOUNTERS from 1970 to 2021-01-28 Encounter Location Date Provider Diagnosis [address] [phone] [place] [address] Jan, Betty Jose IMMUNIZATIONS Vaccine Route Administration [...] School Language: Question Answer Notes Languages spoken: Tunisian Buddhism: Question Answer Notes Buddhism 08 Hoahaoism Sexual Hx: Question Answer Notes Had sex [...] Information RESULTS No Results REASON FOR VISIT no show MEDICAL (GENERAL) HISTORY Type Description Date Medical [...] done by Dr. 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 with epidural abscess measuring 7 x 2 x 19 mm with anterior epidural inflammatory changes from L3-L4 bilateral psoas abscess from L2-L5 Medical History transesophageal echocardiogr am with pediatric probe showed a tricuspid valve vegetation 0.4x 0.7 cm with moderate tricuspid regurgitation at [facility] Dr Estephanie Agosto Surgical History [...] Provider Name:Kandice Bolanos, 2020-03 01:00:00 PM, [address] [facility], , [place], [address], Provider Name:Alaina Foster, 10:00:00 AM, [address] [facility], , [place], [address], Insurance Providers Payer Name Payer Address Payer Phone Insured Name Patient Relati onship to Insured Coverage Start Date Coverage End Date [facility] [address] [place], [place] [id number] MYLES BLACKWELL self MEDICAID [employer] [address] [facility] [address] MYLES BLACKWELL self
--- OUTSIDE RECORDS SUMMARY | 2021-02-14 05:24 | CCD ---
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 Active confirmed 529816489 Problem Septic embolism I76 Active confirmed 4140 49139 Problem Rheumatoid arthritis with po sitive rheumatoid factor, involving unspecified site M05.9 Active confirmed 324294296 Problem 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 Active confirmed 33971125 Problem Aphthous ulcer K12.0 Active confirmed 04298 7000 Problem 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 Active confi rmed 52631272 Problem Gastroesophageal reflux disease, esophagitis pre sence not specified K21.9 Active confirmed 267660817 Problem Methicillin resistant Staphy lococcus aureus infection as the cause of diseases classified elsewhere B95.62 Active confirmed 894891031 Problem Lumbosacral radiculopathy due to degenerative chayo int disease of spine M47.27 Active confirmed 033949307 Problem MRSA (methicillin resistant staph aureus) culture positive Z22.322 Active confirmed 658138056 Problem Generalized anxiety disorder F41.1 Active confirme d 14165236 Problem Psoas muscle abscess K68.12 Active confirmed 782427921 Problem Primary osteoarthritis, 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 Active confirmed 228781765533639 Problem Other specified acute skin changes due to ultraviolet radiation L56.8 Active confirmed 07305066 Problem Gangrene of finger I96 Active confirmed 1 69633793 Problem Primary osteoarthritis, right hand M19.041 Activ e confirmed 74412408 Problem Bilious vomiting with nausea R11.14 Active confirme d 67595272 Problem Pneumonia due to infectious organism, unspecified laterality, unspecified part of lung J18.9 Active confirmed 06638 2009 Problem IV drug abuse F19.10 Active confirmed 525507 006 Problem Acrocyanosis I73.89 Active confirmed 6330363 6 Problem Surgical menopause, symptomatic E89.41 Active confi rmed 356647656 Problem Raynaud's disease without gangrene I73.00 Activ e confirmed 111149743 Problem Acute midline low back pain without sciatica M54.5 Active confirmed 768300186 Problem Epidural abscess, L2-L5 G06.1 Active confirmed 239844607 Problem Bronchitis J40 Active confirmed 22756387 Problem Rheumatoid arthritis involvi ng left hand with positive rheumatoid factor M05.742 Active confirmed 6089774214812569 Problem Swelling of finger of right hand M79.89 Active confirmed 00148670268441880 Problem Rheumatoid arthritis involvi ng multiple sites with positive rheumatoid factor M05.79 Active confirmed 080365659 ALLERGIES Allergen (clinical drug ingredient) Drug/Non Drug Allergy do cumented on EMR Reaction Allergy Type Onset Date Status Sulfasalazine Sulfa Antibiotics Hives Drug Allergy 05/01/2019 Ac tive Penicillin (For Allergies Use Only) Hives Drug Allerg y Active vancomycin Vancomycin HCl([facility] Code:[address]-54) Hives Drug All ergy 05/01/2019 Active sulfamethoxazole / trimethoprim Bactrim([facility] Code:[address]-03) Hives Drug Allergy 05/01/2019 Active ENCOUNTERS from 1970 to 2021-02-04 Encounter Location Date Provider Diagnosis [address] [phone] [place] [address] Jan, Kandice Bolanos IMMUNIZATIONS Vaccine Route Administration Date Status Influenza [...] School Language: Question Answer Notes Languages spoken: Upper Sorbian Hinduism: Question Answer Notes Hinduism 08 Hindu Sexual Hx: Question Answer Notes Had sex [...] Information RESULTS No Results REASON FOR VISIT [facility] MEDICAL (GENERAL) HISTORY Type Description Date Medical [...] I&D done by Dr. 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 with epidural abscess measuring 7 x 2 x 19 mm with anterior epidural inflammatory changes from L3-L4 bilateral psoas abscess from L2-L5 Medical History transesophageal echocardiogr am with pediatric probe showed a tricuspid valve vegetation 0.4x 0.7 cm with moderate tricuspid regurgitation at [facility] Dr Estephanie Agosto Surgical History c-sections Surgical [...] Provider Name:Kandice Bolanos, 2020-03 01:00:00 PM, [address] [facility], , [place], [address], Provider Name:Alaina Foster, 10:00:00 AM, [address] [facility], , [place], [address], Insurance Providers Payer Name Payer Address Payer Phone Insured Name Patient Relati onship to Insured Coverage Start Date Coverage End Date MEDICAID [employer] [address] [facility] [id number] MYLES BLACKWELL self [facility] COMMUNITY PLAN [facility] [address] [facility] [phone] MYLES BLACKWELL self
--- OUTSIDE RECORDS SUMMARY | 2021-02-14 05:24 | CCD ---
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 Active confirmed 017384265 Problem Septic embolism I76 Active confirmed 4140 87816 Problem Rheumatoid arthritis with po sitive rheumatoid factor, involving unspecified site M05.9 Active confirmed 745548031 Problem 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 Active confirmed 65218273 Problem Aphthous ulcer K12.0 Active confirmed 65125 7000 Problem 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 Active confi rmed 06053778 Problem Gastroesophageal reflux disease, esophagitis pre sence not specified K21.9 Active confirmed 751114452 Problem Methicillin resistant Staphy lococcus aureus infection as the cause of diseases classified elsewhere B95.62 Active confirmed 317799648 Problem Lumbosacral radiculopathy due to degenerative chayo int disease of spine M47.27 Active confirmed 617526403 Problem MRSA (methicillin resistant staph aureus) culture positive Z22.322 Active confirmed 544570279 Problem Generalized anxiety disorder F41.1 Active confirme d 98389226 Problem Psoas muscle abscess K68.12 Active confirmed 752796532 Problem Primary osteoarthritis, 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 Active confirmed 444075191860120 Problem Other specified acute skin changes due to ultraviolet radiation L56.8 Active confirmed 33776651 Problem Gangrene of finger I96 Active confirmed 1 68217814 Problem Primary osteoarthritis, right hand M19.041 Activ e confirmed 58011253 Problem Bilious vomiting with nausea R11.14 Active confirme d 21487475 Problem Pneumonia due to infectious organism, unspecified laterality, unspecified part of lung J18.9 Active confirmed 60117 2009 Problem IV drug abuse F19.10 Active confirmed 617618 006 Problem Acrocyanosis I73.89 Active confirmed 0255901 6 Problem Surgical menopause, symptomatic E89.41 Active confi rmed 369584823 Problem Raynaud's disease without gangrene I73.00 Activ e confirmed 330795906 Problem Acute midline low back pain without sciatica M54.5 Active confirmed 690670060 Problem Epidural abscess, L2-L5 G06.1 Active confirmed 237488609 Problem Bronchitis J40 Active confirmed 54320723 Problem Rheumatoid arthritis involvi ng left hand with positive rheumatoid factor M05.742 Active confirmed 1030840471996781 Problem Swelling of finger of right hand M79.89 Active confirmed 08828442846942459 Problem Rheumatoid arthritis involvi ng multiple sites with positive rheumatoid factor M05.79 Active confirmed 018472347 ALLERGIES Allergen (clinical drug ingredient) Drug/Non Drug Allergy do cumented on EMR Reaction Allergy Type Onset Date Status Sulfasalazine Sulfa Antibiotics Hives Drug Allergy 05/01/2019 Ac tive Penicillin (For Allergies Use Only) Hives Drug Allerg y Active vancomycin Vancomycin HCl(ND Code:[address]-32) Hives Drug All ergy 05/01/2019 Active sulfamethoxazole / trimethoprim Bactrim(ND Code:[address]-39) Hives Drug Allergy 05/01/2019 Active ENCOUNTERS from 1970 to 2021-02-12 Encounter Location Date Provider Diagnosis [facility] Rheumatology [address] [place] [address] [place] [address] 15 Jan, 2021 Alaina Foster IMMUNIZATIONS Vaccine Route Administration Date [...] School Language: Question Answer Notes Languages spoken: Uzbek Episcopalian: Question Answer Notes Episcopalian 08 Jainism Sexual Hx: Question Answer Notes Had sex [...] Information RESULTS No Results REASON FOR VISIT results MEDICAL (GENERAL) HISTORY Type Description Date Medical [...] I&D done by Dr. 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 with epidural abscess measuring 7 x 2 x 19 mm with anterior epidural inflammatory changes from L3-L4 bilateral psoas abscess from L2-L5 Medical History transesophageal echocardiogr am with pediatric probe showed a tricuspid valve vegetation 0.4x 0.7 cm with moderate tricuspid regurgitation at [facility] Dr Estephanie Agosto Surgical History [...] Details Provider Name:Kandice Bolanos, 2020-03 01:00:00 PM, [facility], , [place], [address], Provider Name:Alaina Foster, 10:00:00 AM, [address] [facility], , [place], [address], Insurance Providers Payer Name Payer Address Payer Phone Insured Name Patient Relati onship to Insured Coverage Start Date Coverage End Date Subscriber Number Group Nu mber [facility] [address] [facility] [address] MY[address] BLACKWELL self [id number] [facility] MEDICAID [facility] [address] [facility] [id number] MYLES BLACKWELL self [id number]
--- OUTSIDE RECORDS SUMMARY | 2021-02-14 05:24 | CCD ---
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 Active confirmed 628246455 Problem Septic embolism I76 Active confirmed 4140 46860 Problem Rheumatoid arthritis with po sitive rheumatoid factor, involving unspecified site M05.9 Active confirmed 719330240 Problem 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 Active confirmed 37108759 Problem Aphthous ulcer K12.0 Active confirmed 16010 7000 Problem 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 Active confi rmed 18554091 Problem Gastroesophageal reflux disease, esophagitis pre sence not specified K21.9 Active confirmed 118274164 Problem Methicillin resistant Staphy lococcus aureus infection as the cause of diseases classified elsewhere B95.62 Active confirmed 922572442 Problem Lumbosacral radiculopathy due to degenerative chayo int disease of spine M47.27 Active confirmed 252513895 Problem MRSA (methicillin resistant staph aureus) culture positive Z22.322 Active confirmed 198532694 Problem Generalized anxiety disorder F41.1 Active confirme d 21499884 Problem Psoas muscle abscess K68.12 Active confirmed 888688128 Problem Primary osteoarthritis, 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 Active confirmed 145893577304379 Problem Other specified acute skin changes due to ultraviolet radiation L56.8 Active confirmed 87204474 Problem Gangrene of finger I96 Active confirmed 1 37787198 Problem Primary osteoarthritis, right hand M19.041 Activ e confirmed 54608465 Problem Bilious vomiting with nausea R11.14 Active confirme d 80763091 Problem Pneumonia due to infectious organism, unspecified laterality, unspecified part of lung J18.9 Active confirmed 78911 2009 Problem IV drug abuse F19.10 Active confirmed 852704 006 Problem Acrocyanosis I73.89 Active confirmed 1553993 6 Problem Surgical menopause, symptomatic E89.41 Active confi rmed 511119262 Problem Raynaud's disease without gangrene I73.00 Activ e confirmed 642982362 Problem Acute midline low back pain without sciatica M54.5 Active confirmed 426865754 Problem Epidural abscess, L2-L5 G06.1 Active confirmed 195274203 Problem Bronchitis J40 Active confirmed 81218644 Problem Rheumatoid arthritis involvi ng left hand with positive rheumatoid factor M05.742 Active confirmed 8146362015522008 Problem Swelling of finger of right hand M79.89 Active confirmed 09085928086167394 Problem Rheumatoid arthritis involvi ng multiple sites with positive rheumatoid factor M05.79 Active confirmed 417727728 ALLERGIES Allergen (clinical drug ingredient) Drug/Non Drug Allergy do cumented on EMR Reaction Allergy Type Onset Date Status Sulfasalazine Sulfa Antibiotics Hives Drug Allergy 05/01/2019 Ac tive Penicillin (For Allergies Use Only) Hives Drug Allerg y Active vancomycin Vancomycin HCl([facility] Code:[address]-76) Hives Drug All ergy 05/01/2019 Active sulfamethoxazole / trimethoprim Bactrim(ND Code:[address]-96) Hives Drug Allergy 05/01/2019 Active ENCOUNTERS from 1970 to 2020-12-31 Encounter Location Date Provider Diagnosis [facility] Rheumatology [address] [place] [address] [place] [address] Dec, Alaina Foster IMMUNIZATIONS Vaccine Route Administration Date [...] School Language: Question Answer Notes Languages spoken: Greenlandic Pentecostal: Question Answer Notes Pentecostal 08 Taoism Sexual Hx: Question Answer Notes Had sex [...] before morning meal Orally Lavern y Active Sildenafil Citrate 20 MG 1 tablet Orally Once a day for 30 day(s ) Sep, Active NIFEdipine 10 MG 1 capsule as needed Orally every 8 hrs for 30 Days Active Estradiol 0.5 MG 1 tablet Orally Once a day for 30 day(s) Active Aspirin 81 81 MG 1 tablet Orally Once a day Active Sublocade 300 MG/1.5ML as directed Subcutaneous Active Ondansetron 8 MG 1 tablet on the tongue and a llow to dissolve as needed Orally Once a day for 30 day(s) Active Senna 8.6 MG 2 tablets at bedtime as needed Orally Once a day for 3 0 day(s) Active Dalvance 500 MG 1500 mg Intravenous every 2 weeks Dx epidural abscess for 28 day(s) Active MiraLax 17 GM/SCOOP as directed Orally Active Dulcolax 5 MG 1 tablet as needed Orally Once a day for 30 day(s) Active Gabapentin 300 MG 1 capsule Orally three times daily Active predniSONE 5 MG 1 tablet Orally take 2 table ts a day for 2 weeks then 1 tablet a day for 2 weeks and stop for 30 day(s) Nov, Active Ketorolac Tromethamine 10 MG 1 tablet with food or mil k as needed Orally every 6 hrs for 5 day(s) Dec, Active Diflucan 150 MG 1 tablet Orally weekly for 28 day(s) Active SEROquel 200 MG 1 tab Orally Once a day Active predniSONE 20 MG 1 tablet Orally Once a day for 5 day(s) Dec, Active Nitro-Bid 2 % as directed Transdermal bid Active Venlafaxine HCl ER 150 MG 1 tablet with food Orally Once a day Active Plaquenil 200 MG 1 tab Orally DAILY Active SM Gentle Laxative 5 MG TAKE ONE TABLET BY MOUTH EVERY DAY NEEDE D for 30 Active Suboxone 8-2 MG 1 film under the tongue and allow to dissolve Singh blingual bid Active PROCEDURES No Information RESULTS No Results REASON FOR VISIT RAJIV HAND PAIN AND SWELLING MEDICAL (GENERAL) HISTORY Type Description Date Medical [...] I&D done by Dr. 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 with epidural abscess measuring 7 x 2 x 19 mm with anterior epidural inflammatory changes from L3-L4 bilateral psoas abscess from L2-L5 Medical History transesophageal echocardiogr am with pediatric probe showed a tricuspid valve vegetation 0.4x 0.7 cm with moderate tricuspid regurgitation at [facility] Dr Estephanie Agosto Surgical History c-sections [...] Medication Name Sig Start Date Stop Date Gabapentin 300 MG 1 capsule Orally three times daily Plaquenil 200 MG 1 tab Orally DAILY predniSONE 20 MG 1 tablet Orally Once a day for 5 day(s) Dec, Nitro-Bid 2 % as directed Transdermal bid Dulcolax 5 MG 1 tablet as needed Orally Once a day for 30 day( s) Ondansetron 8 MG 1 tablet on the tongue and a llow to dissolve as needed Orally Once a day for 30 day(s) NIFEdipine 10 MG 1 capsule as needed Orally every 8 hrs for 30 D ays Suboxone 8-2 MG 1 film under the tongue and allow to dissolve Singh blingual bid Ketorolac Tromethamine 10 MG 1 tablet with food or mil k as needed Orally every 6 hrs for 5 day(s) Dec, Aspirin 81 81 MG 1 tablet Orally Once a day Omeprazole 20 MG 1 capsule 30 minutes before morning meal Orally Daily Next Appt Details Provider Name:Alaina Foster, 12:00:00 AM, [address] [facility], , [place], [address], Provider Name:Betty Jose, 2021-01-07 3 01:30:00 PM, [address] [place] [address], , [place], [address], Provider Name:Kandice Bolanos, 2020-03 01:00:00 PM, [address] [place] [address] , [place], [address], Insurance Providers Payer Name Payer Address Payer Phone Insured Name Patient Relati onship to Insured Coverage Start Date Coverage End Date MEDICAID [employer] [address] [facility] [id number] MYLES BLACKWELL self [facility] COMMUNITY PLAN [facility] [address] [facility] [address] MYLES BLACKWELL self
--- OUTSIDE RECORDS SUMMARY | 2021-02-14 05:25 | CCD ---
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 Active confirmed 664078810 Problem Septic embolism I76 Active confirmed 4140 47088 Problem Rheumatoid arthritis with po sitive rheumatoid factor, involving unspecified site M05.9 Active confirmed 150674088 Problem 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 Active confirmed 67844647 Problem Aphthous ulcer K12.0 Active confirmed 65941 7000 Problem 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 Active confi rmed 75174887 Problem Gastroesophageal reflux disease, esophagitis pre sence not specified K21.9 Active confirmed 303542407 Problem Methicillin resistant Staphy lococcus aureus infection as the cause of diseases classified elsewhere B95.62 Active confirmed 134174266 Problem Lumbosacral radiculopathy due to degenerative chayo int disease of spine M47.27 Active confirmed 621102012 Problem MRSA (methicillin resistant staph aureus) culture positive Z22.322 Active confirmed 956788874 Problem Generalized anxiety disorder F41.1 Active confirme d 14256142 Problem Psoas muscle abscess K68.12 Active confirmed 018185857 Problem Primary osteoarthritis, 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 Active confirmed 722992545252585 Problem Other specified acute skin changes due to ultraviolet radiation L56.8 Active confirmed 01172398 Problem Gangrene of finger I96 Active confirmed 1 98231140 Problem Primary osteoarthritis, right hand M19.041 Activ e confirmed 45429652 Problem Bilious vomiting with nausea R11.14 Active confirme d 68503352 Problem Pneumonia due to infectious organism, unspecified laterality, unspecified part of lung J18.9 Active confirmed 23010 2009 Problem IV drug abuse F19.10 Active confirmed 640297 006 Problem Acrocyanosis I73.89 Active confirmed 3161628 6 Problem Surgical menopause, symptomatic E89.41 Active confi rmed 038112900 Problem Raynaud's disease without gangrene I73.00 Activ e confirmed 305617185 Problem Acute midline low back pain without sciatica M54.5 Active confirmed 562889009 Problem Epidural abscess, L2-L5 G06.1 Active confirmed 826296449 Problem Bronchitis J40 Active confirmed 26247750 Problem Rheumatoid arthritis involvi ng left hand with positive rheumatoid factor M05.742 Active confirmed 1879890767714968 Problem Swelling of finger of right hand M79.89 Active confirmed 07469771303032953 Problem Rheumatoid arthritis involvi ng multiple sites with positive rheumatoid factor M05.79 Active confirmed 734039472 ALLERGIES Allergen (clinical drug ingredient) Drug/Non Drug Allergy do cumented on EMR Reaction Allergy Type Onset Date Status Sulfa (for allergy use only) Hives Drug Allergy 2019 Active Penicillin (For Allergies Use Only) Hives Drug Allerg y Active vancomycin Vancomycin HCl([facility] Code:[address]-31) Hives Drug All ergy 05/01/2019 Active sulfamethoxazole / trimethoprim Bactrim(ND Code:[address]-67) Hives Drug Allergy 05/01/2019 Active ENCOUNTERS from 1970 to 2020-11-19 Encounter Location Date Provider Diagnosis [facility] Rheumatology [address] [facility] [phone] [place] [address] Oct, Alaina Foster IMMUNIZATIONS Vaccine Route Administration Date Status Hepatitis A Adult 1.0mL Havrix Unknown Mar 31, 2019 A dministered SOCIAL HISTORY Tobacco Use: Social History Observation Description Date Details (start date - stop date) Current Smoker Sex Assigned At : Social History Observation Description Sex Assigned At Unknown Education: Question Answer Notes Level of Education: Finished High School Language: Question Answer Notes Languages spoken: Mohawk Pentecostal: Question Answer Notes Pentecostal 08 Orthodoxy Sexual Hx: Question Answer Notes Had sex [...] Notes Start Da te End Date Status Sublocade 300 MG/1.5ML as directed Subcutaneous Active Aspirin 81 81 MG 1 tablet Orally Once a day Active Plaquenil 200 MG 1 tab Orally DAILY Active Sildenafil Citrate 20 MG 1 tablet Orally Once a day for 30 day(s ) Sep, Active Gabapentin 300 MG 1 capsule Orally three times daily Active Dulcolax 5 MG 1 tablet as needed Orally Once a day for 30 day(s) Active Suboxone 8-2 MG 1 film under the tongue and allow to dissolve Singh blingual bid Active Estradiol 0.5 MG 1 tablet Orally Once a day for 30 day(s) Active SEROquel 200 MG 1 tab Orally Once a day Active NIFEdipine 10 MG 1 capsule as needed Orally every 8 hrs for 30 D ays Oct, Active CeleBREX 200 MG 1 capsule with food Orally Once a day Active Senna 8.6 MG 2 tablets at bedtime as needed Orally Once a day for 3 0 day(s) Active Venlafaxine HCl ER 150 MG 1 tablet with food Orally Once a day Active Nitro-Bid 2 % as directed Transdermal bid Active Diflucan 150 MG 1 tablet Orally weekly for 28 day(s) Active Ondansetron 8 MG 1 tablet on the tongue and a llow to dissolve as needed Orally Once a day for 30 day(s) Active predniSONE 5 MG 1 tablet Orally take 2 table ts a day for 2 weeks then 1 tablet a day for 2 weeks and stop for 30 day(s) Nov, Active Omeprazole 20 MG 1 capsule 30 minutes before morning meal Orally Daily Apr, Active Dalvance 500 MG 1500 mg Intravenous every 2 weeks Dx epidural abscess for 28 day(s) Active MiraLax 17 GM/SCOOP as directed Orally Active PROCEDURES No Information RESULTS No Results REASON FOR VISIT refill MEDICAL (GENERAL) HISTORY Type Description Date Medical [...] by Dr. Ricardo Marino at [facility] MRI 06/26/19 with disc vertebral osteomyelitis at [...] Medication Name Sig Start Date Stop Date NIFEdipine 10 MG 1 capsule as needed Orally every 8 hrs f or 30 Days Oct, Omeprazole 20 MG 1 capsule 30 minutes before morning meal Orally Daily Apr, Dalvance 500 MG 1500 mg Intravenous every 2 weeks Dx epidural abscess for 28 day(s) Suboxone 8-2 MG 1 film under the tongue and allow to dissolve Singh blingual bid Dulcolax 5 MG 1 tablet as needed Orally Once a day for 30 day( s) predniSONE 5 MG 1 tablet Orally take 2 table ts a day for 2 weeks then 1 tablet a day for 2 weeks and stop for 30 day(s) Nov, Plaquenil 200 MG 1 tab Orally DAILY Gabapentin 300 MG 1 capsule Orally three times daily Ondansetron 8 MG 1 tablet on the tongue and a llow to dissolve as needed Orally Once a day for 30 day(s) CeleBREX 200 MG 1 capsule with food Orally Once a day Aspirin 81 81 MG 1 tablet Orally Once a day Nitro-Bid 2 % as directed Transdermal bid Next Appt Details Provider Name:Betty Jose, 2020-11-06 6 01:00:00 PM, [address] [facility], , [place], [address], Provider Name:Alaina Foster, 12:00:00 AM, [address] [facility], , [place], [address], Provider Name:Kandice Bolanos, 2020-03 01:00:00 PM, [address] [place] [address], , [place], [address], Insurance Providers Payer Name Payer Address Payer Phone Insured Name Patient Relati onship to Insured Coverage Start Date Coverage End Date MEDICAID [employer] [address] [facility] [id number] MYLES BLACKWELL self [facility] COMM[facility] PLAN [facility] [address] [facility] [address] MYLES BLACKWELL self
--- OUTSIDE RECORDS SUMMARY | 2021-02-14 05:25 | CCD ---
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 Active confirmed 238786207 Problem Septic embolism I76 Active confirmed 4140 59672 Problem Rheumatoid arthritis with po sitive rheumatoid factor, involving unspecified site M05.9 Active confirmed 502100898 Problem 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 Active confirmed 33526287 Problem Aphthous ulcer K12.0 Active confirmed 23307 7000 Problem 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 Active confi rmed 03182447 Problem Gastroesophageal reflux disease, esophagitis pre sence not specified K21.9 Active confirmed 693230035 Problem Methicillin resistant Staphy lococcus aureus infection as the cause of diseases classified elsewhere B95.62 Active confirmed 613991504 Problem Lumbosacral radiculopathy due to degenerative chayo int disease of spine M47.27 Active confirmed 525280338 Problem MRSA (methicillin resistant staph aureus) culture positive Z22.322 Active confirmed 059372223 Problem Generalized anxiety disorder F41.1 Active confirme d 35467517 Problem Psoas muscle abscess K68.12 Active confirmed 310015757 Problem Primary osteoarthritis, 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 Active confirmed 734493710236430 Problem Other specified acute skin changes due to ultraviolet radiation L56.8 Active confirmed 52645954 Problem Gangrene of finger I96 Active confirmed 1 05458618 Problem Primary osteoarthritis, right hand M19.041 Activ e confirmed 35796330 Problem Bilious vomiting with nausea R11.14 Active confirme d 70527616 Problem Pneumonia due to infectious organism, unspecified laterality, unspecified part of lung J18.9 Active confirmed 49720 2009 Problem IV drug abuse F19.10 Active confirmed 590658 006 Problem Acrocyanosis I73.89 Active confirmed 2580232 6 Problem Surgical menopause, symptomatic E89.41 Active confi rmed 250169907 Problem Raynaud's disease without gangrene I73.00 Activ e confirmed 102905727 Problem Acute midline low back pain without sciatica M54.5 Active confirmed 852206817 Problem Epidural abscess, L2-L5 G06.1 Active confirmed 775337304 Problem Bronchitis J40 Active confirmed 88548707 Problem Rheumatoid arthritis involvi ng left hand with positive rheumatoid factor M05.742 Active confirmed 9681540118878793 Problem Swelling of finger of right hand M79.89 Active confirmed 70951395901861649 Problem Rheumatoid arthritis involvi ng multiple sites with positive rheumatoid factor M05.79 Active confirmed 586889140 ALLERGIES Allergen (clinical drug ingredient) Drug/Non Drug Allergy do cumented on EMR Reaction Allergy Type Onset Date Status Sulfa (for allergy use only) Hives Drug Allergy 2019 Active Penicillin (For Allergies Use Only) Hives Drug Allerg y Active vancomycin Vancomycin HCl(NDC Code:[address]-93) Hives Drug All ergy 05/01/2019 Active sulfamethoxazole / trimethoprim Bactrim(NDC Code:[address]-22) Hives Drug Allergy 05/01/2019 Active ENCOUNTERS from 1970 to 2020-12-06 Encounter Location Date Provider Diagnosis [facility] Rheumatology [address] [place] [address] [place] [address] 30 Nov, 2020 Alaina Foster Encounter for eye exam due t o high risk medication Z79.899 and Rheumatoid arthritis involving left hand with positive rheumatoid factor M05.742 IMMUNIZATIONS Vaccine Route Administration Date Status Influenza [...] School Language: Question Answer Notes Languages spoken: Bolivian Taoist: Question Answer Notes Taoist 08 Buddhism Sexual Hx: Question Answer Notes [...] Notes Start Da te End Date Status MiraLax 17 GM/SCOOP as directed Orally Active Nitro-Bid 2 % as directed Transdermal bid Active NIFEdipine 10 MG 1 capsule as needed Orally every 8 hrs for 30 Days Active Suboxone 8-2 MG 1 film under the tongue and allow to dissolve Singh blingual bid Active Plaquenil 200 MG 1 tab Orally DAILY for 30 days Active SEROquel 200 MG 1 tab Orally Once a day Active Gabapentin 300 MG 1 capsule Orally three times daily Active predniSONE 5 MG 1 tablet Orally take 2 table ts a day for 2 weeks then 1 tablet a day for 2 weeks and stop for 30 day(s) Nov, Active Estradiol 0.5 MG 1 tablet Orally Once a day for 30 day(s) Active Sublocade 300 MG/1.5ML as directed Subcutaneous Active Ondansetron 8 MG 1 tablet on the tongue and a llow to dissolve as needed Orally Once a day for 30 day(s) Active Dulcolax 5 MG 1 tablet as needed Orally Once a day for 30 day(s) Active Venlafaxine HCl ER 150 MG 1 tablet with food Orally Once a day Active Aspirin 81 81 MG 1 tablet Orally Once a day Active Diflucan 150 MG 1 tablet Orally weekly for 28 day(s) Active Omeprazole 20 MG 1 capsule 30 minutes before morning meal Orally Lavern y Active CeleBREX 200 MG 1 capsule with food Orally Once a day Active Sildenafil Citrate 20 MG 1 tablet Orally Once a day for 30 day(s ) Sep, Active Dalvance 500 MG 1500 mg Intravenous every 2 weeks Dx epidural abscess for 28 day(s) Active Senna 8.6 MG 2 tablets at bedtime as needed Orally Once a day for 3 0 day(s) Active PROCEDURES No Information RESULTS No Results REASON FOR VISIT Referral for Eye Exam MEDICAL (GENERAL) HISTORY Type Description Date Medical [...] I&D done by Dr. 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 with epidural abscess measuring 7 x 2 x 19 mm with anterior epidural inflammatory changes from L3-L4 bilateral psoas abscess from L2-L5 Medical History transesophageal echocardiogr am with pediatric probe showed a tricuspid valve vegetation 0.4x 0.7 cm with moderate tricuspid regurgitation at [facility] Dr Estephanie Agosto Surgical History c-sections [...] Notes Treatment Notes Treatm ent Clinical Notes Nov, Encounter for eye exam due t o high risk medication (ICD-10 - Z79.899) Nov, Rheumatoid arthritis involvi ng left hand with positive rheumatoid factor (ICD-10 - M05.742) PLAN OF TREATMENT Medication Medication Name Sig Start Date Stop Date Dulcolax 5 MG 1 tablet as needed Orally Once a day for 30 day( s) Suboxone 8-2 MG 1 film under the tongue and allow to dissolve Singh blingual bid Omeprazole 20 MG 1 capsule 30 minutes before morning meal Orally Daily Ondansetron 8 MG 1 tablet on the tongue and a llow to dissolve as needed Orally Once a day for 30 day(s) CeleBREX 200 MG 1 capsule with food Orally Once a day Gabapentin 300 MG 1 capsule Orally three times daily Nitro-Bid 2 % as directed Transdermal bid Aspirin 81 81 MG 1 tablet Orally Once a day NIFEdipine 10 MG 1 capsule as needed Orally every 8 hrs for 30 D ays Plaquenil 200 MG 1 tab Orally DAILY for 30 days Next Appt Details Provider Name:Alaina Foster, 01:00:00 PM, [address] [facility], , [place], [address], Provider Name:Betty Jose, 2020-12-06 2 01:00:00 PM, [address] [place] [address], , [place], [address], Provider Name:Kandice Bolanos, 2020-03 01:00:00 PM, [address] [place] [address] , [place], [address], Insurance Providers Payer Name Payer Address Payer Phone Insured Name Patient Relati onship to Insured Coverage Start Date Coverage End Date [facility] [address] [facility] [address] MYLES BLACKWELL self MEDICAID [facility] [address] [facility] [address] MYLES BLACKWELL self
--- OUTSIDE RECORDS SUMMARY | 2021-02-14 05:25 | CCD ---
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 Active confirmed 061938984 Problem Septic embolism I76 Active confirmed 4140 34731 Problem Rheumatoid arthritis with po sitive rheumatoid factor, involving unspecified site M05.9 Active confirmed 840346853 Problem 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 Active confirmed 50727559 Problem Aphthous ulcer K12.0 Active confirmed 29512 7000 Problem 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 Active confi rmed 68229545 Problem Gastroesophageal reflux disease, esophagitis pre sence not specified K21.9 Active confirmed 488348981 Problem Methicillin resistant Staphy lococcus aureus infection as the cause of diseases classified elsewhere B95.62 Active confirmed 596111319 Problem Lumbosacral radiculopathy due to degenerative chayo int disease of spine M47.27 Active confirmed 203084412 Problem MRSA (methicillin resistant staph aureus) culture positive Z22.322 Active confirmed 601838005 Problem Generalized anxiety disorder F41.1 Active confirme d 67627090 Problem Psoas muscle abscess K68.12 Active confirmed 543602314 Problem Primary osteoarthritis, 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 Active confirmed 205233161451835 Problem Other specified acute skin changes due to ultraviolet radiation L56.8 Active confirmed 61565362 Problem Gangrene of finger I96 Active confirmed 1 54441375 Problem Primary osteoarthritis, right hand M19.041 Activ e confirmed 47402390 Problem Bilious vomiting with nausea R11.14 Active confirme d 51295518 Problem Pneumonia due to infectious organism, unspecified laterality, unspecified part of lung J18.9 Active confirmed 97980 2009 Problem IV drug abuse F19.10 Active confirmed 787648 006 Problem Acrocyanosis I73.89 Active confirmed 0526448 6 Problem Surgical menopause, symptomatic E89.41 Active confi rmed 755436192 Problem Raynaud's disease without gangrene I73.00 Activ e confirmed 055965440 Problem Acute midline low back pain without sciatica M54.5 Active confirmed 812829355 Problem Epidural abscess, L2-L5 G06.1 Active confirmed 302310213 Problem Bronchitis J40 Active confirmed 64077399 Problem Rheumatoid arthritis involvi ng left hand with positive rheumatoid factor M05.742 Active confirmed 7086105956129373 Problem Swelling of finger of right hand M79.89 Active confirmed 84222091563274538 Problem Rheumatoid arthritis involvi ng multiple sites with positive rheumatoid factor M05.79 Active confirmed 659160718 ALLERGIES Allergen (clinical drug ingredient) Drug/Non Drug Allergy do cumented on EMR Reaction Allergy Type Onset Date Status Sulfa (for allergy use only) Hives Drug Allergy 2019 Active Penicillin (For Allergies Use Only) Hives Drug Allerg y Active vancomycin Vancomycin HCl([facility] Code:[address]-93) Hives Drug All ergy 05/01/2019 Active sulfamethoxazole / trimethoprim Bactrim(ND Code:[address]-93) Hives Drug Allergy 05/01/2019 Active ENCOUNTERS from 1970 to 2020-11-15 Encounter Location Date Provider Diagnosis [facility] Rheumatology [address] [facility] [phone] [place] [address] 10 Nov, 2020 Alaina Foster IMMUNIZATIONS Vaccine Route Administration Date [...] School Language: Question Answer Notes Languages spoken: Romanian Holiness: Question Answer Notes Holiness 08 Lutheran Sexual Hx: Question Answer Notes [...] I&D done by Dr. 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 with epidural abscess measuring 7 x 2 x 19 mm with anterior epidural inflammatory changes from L3-L4 bilateral psoas abscess from L2-L5 Medical History transesophageal echocardiogr am with pediatric probe showed a tricuspid valve vegetation 0.4x 0.7 cm with moderate tricuspid regurgitation at [facility] Dr Estephanie Agosto Surgical History c-sections [...] Name:Betty Jose, 2020-11-06 6 01:00:00 PM, [address] [facility], , [place], [address], Provider Name:Alaina Foster, 12:00:00 AM, [address] [facility], , [place], [address], Provider Name:Kandice Bolanos, 2020-03 01:00:00 PM, [address] [place] [address], , [place], [address], Insurance Providers Payer Name Payer Address Payer Phone Insured Name Patient Relati onship to Insured Coverage Start Date Coverage End Date [facility] [address] [facility] [phone] MYLES BLACKWELL self [facility]ICA[facility] [address] [facility] [id number] MYLES BLACKWELL self
--- OUTSIDE RECORDS SUMMARY | 2021-02-14 05:25 | CCD ---
Author Author [facility] Organization [facility] Address Unknown Phone Unavailable Care Team Providers Care Tower Helper Name Role Phone Alaina Foster Unavailable PROBLEMS Type Condition ICD9-CM Code MWP55-PY Code Onset Dates Condition S tatus W/U Status Risk SNOMED Code Notes Problem History of hepatitis C Z86.19 Active confirmed 83260273503999 Problem Iron deficiency anemia, unspecified iron deficiency an emia type D50.9 Active confirmed 90593712 Problem Bacteremia R78.81 Active confirmed 641101591 91169668 Problem 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 Active confirmed 409844186 Problem Septic embolism I76 Active confirmed 4140 42243 Problem Rheumatoid arthritis with po sitive rheumatoid factor, involving unspecified site M05.9 Active confirmed 840447971 Problem 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 Active confirmed 84927460 Problem Aphthous ulcer K12.0 Active confirmed 13023 7000 Problem 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 Active confi rmed 48877177 Problem Gastroesophageal reflux disease, esophagitis pre sence not specified K21.9 Active confirmed 647664412 Problem Methicillin resistant Staphy lococcus aureus infection as the cause of diseases classified elsewhere B95.62 Active confirmed 015581564 Problem Lumbosacral radiculopathy due to degenerative chayo int disease of spine M47.27 Active confirmed 620404464 Problem MRSA (methicillin resistant staph aureus) culture positive Z22.322 Active confirmed 485058966 Problem Generalized anxiety disorder F41.1 Active confirme d 82426917 Problem Psoas muscle abscess K68.12 Active confirmed 105242413 Problem Primary osteoarthritis, 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 Active confirmed 516760142487910 Problem Other specified acute skin changes due to ultraviolet radiation L56.8 Active confirmed 43411551 Problem Gangrene of finger I96 Active confirmed 1 12540038 Problem Primary osteoarthritis, right hand M19.041 Activ e confirmed 02400560 Problem Bilious vomiting with nausea R11.14 Active confirme d 38668401 Problem Pneumonia due to infectious organism, unspecified laterality, unspecified part of lung J18.9 Active confirmed 30147 2009 Problem IV drug abuse F19.10 Active confirmed 771614 006 Problem Acrocyanosis I73.89 Active confirmed 6348756 6 Problem Surgical menopause, symptomatic E89.41 Active confi rmed 210420746 Problem Raynaud's disease without gangrene I73.00 Activ e confirmed 901713083 Problem Acute midline low back pain without sciatica M54.5 Active confirmed 382023342 Problem Epidural abscess, L2-L5 G06.1 Active confirmed 737072700 Problem Bronchitis J40 Active confirmed 68701323 Problem Rheumatoid arthritis involvi ng left hand with positive rheumatoid factor M05.742 Active confirmed 7792583547774048 Problem Swelling of finger of right hand M79.89 Active confirmed 12353333123630293 Problem Rheumatoid arthritis involvi ng multiple sites with positive rheumatoid factor M05.79 Active confirmed 206045315 ALLERGIES Allergen (clinical drug ingredient) Drug/Non Drug Allergy do cumented on EMR Reaction Allergy Type Onset Date Status Sulfa (for allergy use only) Hives Drug Allergy 2019 Active Penicillin (For Allergies Use Only) Hives Drug Allerg y Active vancomycin Vancomycin HCl(ND Code:[address]-89) Hives Drug All ergy 05/01/2019 Active sulfamethoxazole / trimethoprim Bactrim(NDC Code:[address]-46) Hives Drug Allergy 05/01/2019 Active ENCOUNTERS from 1970 to 2020-11-22 Encounter Location Date Provider Diagnosis [facility] Rheumatology [address] [place] [address] [place] [address] Sep, Alaina Foster IMMUNIZATIONS Vaccine Route Administration Date [...] Language: Question Answer Notes Languages spoken: Greenlandic Protestant: Question Answer Notes Protestant 08 Sikhism Sexual Hx: Question Answer Notes Had sex [...] Notes Start Da te End Date Status Nitro-Bid 2 % as directed Transdermal bid Active Senna 8.6 MG 2 tablets at bedtime as needed Orally Once a day for 3 0 day(s) Active NIFEdipine 10 MG 1 capsule as needed Orally every 8 hrs for 30 Days Active Suboxone 8-2 MG 1 film under the tongue and allow to dissolve Singh blingual bid Active MiraLax 17 GM/SCOOP as directed Orally Active SEROquel 200 MG 1 tab Orally [...] Sublocade 300 MG/1.5ML as directed Subcutaneous Active Dulcolax 5 MG 1 tablet as needed Orally Once a day for 30 day(s) Active Plaquenil 200 MG 1 tab Orally DAILY Active Venlafaxine HCl ER 150 MG 1 tablet with food Orally Once a day Active Omeprazole 20 MG 1 capsule 30 minutes before morning meal Orally Lavern y Active Diflucan 150 MG 1 tablet Orally weekly for 28 day(s) Active Ondansetron 8 MG 1 tablet on the tongue and a llow to dissolve as needed Orally Once a day for 30 day(s) Active CeleBREX 200 MG 1 capsule with food Orally Once a day Active Sildenafil Citrate 20 MG 1 tablet Orally Once a day for 30 day(s ) Sep, Active Dalvance 500 MG 1500 mg Intravenous every 2 weeks Dx epidural abscess for 28 day(s) Active Aspirin 81 81 MG 1 tablet Orally Once a day Active PROCEDURES No Information RESULTS No Results REASON FOR VISIT Hand pain/MRI MEDICAL (GENERAL) HISTORY Type Description Date Medical [...] 0.7 cm with moderate tricuspid regurgitation at [facility] Dr Estephanie Agosto Surgical History [...] Medication Name Sig Start Date Stop Date Plaquenil 200 MG 1 tab Orally DAILY Suboxone 8-2 MG 1 film under the tongue and allow to dissolve Singh blingual bid Ondansetron 8 MG 1 tablet on the tongue and a llow to dissolve as needed Orally Once a day for 30 day(s) Dulcolax 5 MG 1 tablet as needed Orally Once a day for 30 day( s) CeleBREX 200 MG 1 capsule with food Orally Once a day Gabapentin 300 MG 1 capsule Orally three times daily Aspirin 81 81 MG 1 tablet Orally Once a day Omeprazole 20 MG 1 capsule 30 minutes before morning meal Orally Daily NIFEdipine 10 MG 1 capsule as needed Orally every 8 hrs for 30 D ays Nitro-Bid 2 % as directed Transdermal bid Next Appt Details Provider Name:Lacyanna Jose, 2020-10-1 2 01:00:00 PM, [address] [facility], , [place], [address], Provider Name:Alaina Murphyew, 12:00:00 AM, [address] [facility], , [place], [address], Provider Name:Kandice Bolanos, 2020-03 01:00:00 PM, [address] [facility], , [place], [address], Insurance Providers Payer Name Payer Address Payer Phone Insured Name Patient Relati onship to Insured Coverage Start Date Coverage End Date MEDICAID [place] [employer] [employer] ([employer] [address] [facility] [id number] MYLES BLACKWELL self [facility] [address] [facility] [phone] MYLES BLACKWELL self
--- OUTSIDE RECORDS SUMMARY | 2021-02-14 05:25 | CCD ---
Author Author [facility] Organization [facility] Address Unknown Phone Unavailable Care Team Providers Care Developer Evangelist Name Role Phone Kandice Bolanos Unavailable PROBLEMS Type Condition ICD9-CM Code [id number] Code Onset Dates Condition S tatus W/U Status Risk SNOMED Code Notes Problem History of hepatitis C Z86.19 Active confirmed 27220377032970 Problem Iron deficiency anemia, unspecified iron deficiency an emia type D50.9 Active confirmed 10658829 Problem Bacteremia R78.81 Active confirmed 769576714 69692487 Problem 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 Active confirmed 832785800 Problem Septic embolism I76 Active confirmed 4140 69194 Problem Rheumatoid arthritis with po sitive rheumatoid factor, involving unspecified site M05.9 Active confirmed 967182255 Problem 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 Active confirmed 18700924 Problem Aphthous ulcer K12.0 Active confirmed 54626 7000 Problem 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 Active confi rmed 52972872 Problem Gastroesophageal reflux disease, esophagitis pre sence not specified K21.9 Active confirmed 509793445 Problem Methicillin resistant Staphy lococcus aureus infection as the cause of diseases classified elsewhere B95.62 Active confirmed 017529314 Problem Lumbosacral radiculopathy due to degenerative chayo int disease of spine M47.27 Active confirmed 931996845 Problem MRSA (methicillin resistant staph aureus) culture positive Z22.322 Active confirmed 893247787 Problem Generalized anxiety disorder F41.1 Active confirme d 44457442 Problem Psoas muscle abscess K68.12 Active confirmed 580723849 Problem Primary osteoarthritis, 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 Active confirmed 821285697409976 Problem Other specified acute skin changes due to ultraviolet radiation L56.8 Active confirmed 28019330 Problem Gangrene of finger I96 Active confirmed 1 58387557 Problem Primary osteoarthritis, right hand M19.041 Activ e confirmed 86575073 Problem Bilious vomiting with nausea R11.14 Active confirme d 66049045 Problem Pneumonia due to infectious organism, unspecified laterality, unspecified part of lung J18.9 Active confirmed 75253 2009 Problem IV drug abuse F19.10 Active confirmed 966651 006 Problem Acrocyanosis I73.89 Active confirmed 7480871 6 Problem Surgical menopause, symptomatic E89.41 Active confi rmed 297691794 Problem Raynaud's disease without gangrene I73.00 Activ e confirmed 068538662 Problem Acute midline low back pain without sciatica M54.5 Active confirmed 690151793 Problem Epidural abscess, L2-L5 G06.1 Active confirmed 192472287 Problem Bronchitis J40 Active confirmed 10016694 Problem Rheumatoid arthritis involvi ng left hand with positive rheumatoid factor M05.742 Active confirmed 0043205700510010 Problem Swelling of finger of right hand M79.89 Active confirmed 27724737309348088 Problem Rheumatoid arthritis involvi ng multiple sites with positive rheumatoid factor M05.79 Active confirmed 307899057 ALLERGIES Allergen (clinical drug ingredient) Drug/Non Drug Allergy do cumented on EMR Reaction Allergy Type Onset Date Status Sulfa (for allergy use only) Hives Drug Allergy 2019 Active Penicillin (For Allergies Use Only) Hives Drug Allerg y Active vancomycin Vancomycin HCl(NDC Code:[address]-05) Hives Drug All ergy 05/01/2019 Active sulfamethoxazole / trimethoprim Bactrim(NDC Code:[address]-92) Hives Drug Allergy 05/01/2019 Active ENCOUNTERS from 1970 to 2020-11-29 Encounter Location Date Provider Diagnosis [address] [phone] [place] [address] Nov, Kandice Bolanos IMMUNIZATIONS Vaccine Route Administration Date [...] School Language: Question Answer Notes Languages spoken: Frisian Anglican: Question Answer Notes Anglican 08 [employer] Sexual Hx: Question Answer Notes Had sex [...] Information RESULTS No Results REASON FOR VISIT fever, throwing-up, shakey MEDICAL (GENERAL) HISTORY Type Description Date Medical [...] I&D done by Dr. 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 with epidural abscess measuring 7 x 2 x 19 mm with anterior epidural inflammatory changes from L3-L4 bilateral psoas abscess from L2-L5 Medical History transesophageal echocardiogr am with pediatric probe showed a tricuspid valve vegetation 0.4x 0.7 cm with moderate tricuspid regurgitation at [facility] Dr Estephanie Agosto Surgical History [...] days Next Appt Details Provider Name:Alaina Foster, 2020-10- 01:00:00 PM, [address] [place] [address], , [place], [address], Provider Name:Betty Jose, 2020-12-06 2 01:00:00 PM, [address] [facility], , [place], [address], Provider Name:Kandice Bolanos, 2020-03- 01:00:00 PM, [address] [facility], , [place], [address], Insurance Providers Payer Name Payer Address Payer Phone Insured Name Patient Relati onship to Insured Coverage Start Date Coverage End Date [facility]ICAID [facility] Shu [address] [facility] [id number] [address] [facility] [address] [facility] [address] MYLES BLACKWELL self
--- OUTSIDE RECORDS SUMMARY | 2021-02-14 05:25 | CCD ---
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 Active confirmed 947453630 Problem Septic embolism I76 Active confirmed 4140 34298 Problem Rheumatoid arthritis with po sitive rheumatoid factor, involving unspecified site M05.9 Active confirmed 955397986 Problem 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 Active confirmed 02185247 Problem Aphthous ulcer K12.0 Active confirmed 76083 7000 Problem 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 Active confi rmed 80589468 Problem Gastroesophageal reflux disease, esophagitis pre sence not specified K21.9 Active confirmed 673199045 Problem Methicillin resistant Staphy lococcus aureus infection as the cause of diseases classified elsewhere B95.62 Active confirmed 510611543 Problem Lumbosacral radiculopathy due to degenerative chayo int disease of spine M47.27 Active confirmed 171879177 Problem MRSA (methicillin resistant staph aureus) culture positive Z22.322 Active confirmed 174492386 Problem Generalized anxiety disorder F41.1 Active confirme d 95988623 Problem Psoas muscle abscess K68.12 Active confirmed 542972853 Problem Primary osteoarthritis, 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 Active confirmed 814528415379270 Problem Other specified acute skin changes due to ultraviolet radiation L56.8 Active confirmed 52573922 Problem Gangrene of finger I96 Active confirmed 1 80838957 Problem Primary osteoarthritis, right hand M19.041 Activ e confirmed 64902193 Problem Bilious vomiting with nausea R11.14 Active confirme d 63169559 Problem Pneumonia due to infectious organism, unspecified laterality, unspecified part of lung J18.9 Active confirmed 78155 2009 Problem IV drug abuse F19.10 Active confirmed 701400 006 Problem Acrocyanosis I73.89 Active confirmed 3397798 6 Problem Surgical menopause, symptomatic E89.41 Active confi rmed 190676402 Problem Raynaud's disease without gangrene I73.00 Activ e confirmed 542039446 Problem Acute midline low back pain without sciatica M54.5 Active confirmed 786586484 Problem Epidural abscess, L2-L5 G06.1 Active confirmed 926441410 Problem Bronchitis J40 Active confirmed 72923039 Problem Rheumatoid arthritis involvi ng left hand with positive rheumatoid factor M05.742 Active confirmed 2999124647834057 Problem Swelling of finger of right hand M79.89 Active confirmed 74968907984482179 Problem Rheumatoid arthritis involvi ng multiple sites with positive rheumatoid factor M05.79 Active confirmed 521770803 ALLERGIES Allergen (clinical drug ingredient) Drug/Non Drug Allergy do cumented on EMR Reaction Allergy Type Onset Date Status Sulfa (for allergy use only) Hives Drug Allergy 2019 Active Penicillin (For Allergies Use Only) Hives Drug Allerg y Active vancomycin Vancomycin HCl([facility] Code:[address]-53) Hives Drug All ergy 05/01/2019 Active sulfamethoxazole / trimethoprim Bactrim(ND Code:[address]-18) Hives Drug Allergy 05/01/2019 Active ENCOUNTERS from 1970 to 2020-11-22 Encounter Location Date Provider Diagnosis [facility] [address] [facility] [phone] [place] [address] 14 Jul, 2020 Betty Jose IMMUNIZATIONS Vaccine Route Administration [...] School Language: Question Answer Notes Languages spoken: Slovenian Sikhism: Question Answer Notes Sikhism 08 Anglican Sexual Hx: Question Answer Notes Had sex [...] I&D done by Dr. 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 with epidural abscess measuring 7 x 2 x 19 mm with anterior epidural inflammatory changes from L3-L4 bilateral psoas abscess from L2-L5 Medical History transesophageal echocardiogr am with pediatric probe showed a tricuspid valve vegetation 0.4x 0.7 cm with moderate tricuspid regurgitation at [facility] Dr Estephanie Agosto Surgical History c-sections Surgical [...] bid Next Appt Details Provider Name:Betty Jose, 2020-10-1 2 01:00:00 PM, [address] [place] [address], , [place], [address], Provider Name:Alaina Foster, 12:00:00 AM, [address] [facility], , [place], [address], Provider Name:Kandice Bolanos, 2020-03 01:00:00 PM, [address] [facility], , [place], [address], Insurance Providers Payer Name Payer Address Payer Phone Insured Name Patient Relati onship to Insured Coverage Start Date Coverage End Date MEDICAID [employer] [address] [facility] [id number] MYLES BLACKWELL self [facility] COMMUNITY PLAN [facility] [address] [facility] [address] MYLES BLACKWELL self
--- OUTSIDE RECORDS SUMMARY | 2021-02-14 05:25 | CCD ---
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 Active confirmed 712220980 Problem Septic embolism I76 Active confirmed 4140 61980 Problem Rheumatoid arthritis with po sitive rheumatoid factor, involving unspecified site M05.9 Active confirmed 247565013 Problem 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 Active confirmed 74238510 Problem Aphthous ulcer K12.0 Active confirmed 78211 7000 Problem 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 Active confi rmed 65224528 Problem Gastroesophageal reflux disease, esophagitis pre sence not specified K21.9 Active confirmed 498101905 Problem Methicillin resistant Staphy lococcus aureus infection as the cause of diseases classified elsewhere B95.62 Active confirmed 389341354 Problem Lumbosacral radiculopathy due to degenerative chayo int disease of spine M47.27 Active confirmed 404977914 Problem MRSA (methicillin resistant staph aureus) culture positive Z22.322 Active confirmed 004559368 Problem Generalized anxiety disorder F41.1 Active confirme d 73514429 Problem Psoas muscle abscess K68.12 Active confirmed 339018910 Problem Primary osteoarthritis, 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 Active confirmed 878775093698019 Problem Other specified acute skin changes due to ultraviolet radiation L56.8 Active confirmed 68319275 Problem Gangrene of finger I96 Active confirmed 1 20711191 Problem Primary osteoarthritis, right hand M19.041 Activ e confirmed 43058388 Problem Bilious vomiting with nausea R11.14 Active confirme d 13306304 Problem Pneumonia due to infectious organism, unspecified laterality, unspecified part of lung J18.9 Active confirmed 81394 2009 Problem IV drug abuse F19.10 Active confirmed 357203 006 Problem Acrocyanosis I73.89 Active confirmed 9586541 6 Problem Surgical menopause, symptomatic E89.41 Active confi rmed 389641612 Problem Raynaud's disease without gangrene I73.00 Activ e confirmed 623266813 Problem Acute midline low back pain without sciatica M54.5 Active confirmed 560457760 Problem Epidural abscess, L2-L5 G06.1 Active confirmed 003423847 Problem Bronchitis J40 Active confirmed 67337034 Problem Rheumatoid arthritis involvi ng left hand with positive rheumatoid factor M05.742 Active confirmed 2589229087799071 Problem Swelling of finger of right hand M79.89 Active confirmed 88881376715734009 Problem Rheumatoid arthritis involvi ng multiple sites with positive rheumatoid factor M05.79 Active confirmed 328098896 ALLERGIES Allergen (clinical drug ingredient) Drug/Non Drug Allergy do cumented on EMR Reaction Allergy Type Onset Date Status Sulfa (for allergy use only) Hives Drug Allergy 2019 Active Penicillin (For Allergies Use Only) Hives Drug Allerg y Active vancomycin Vancomycin HCl([facility] Code:[address]-65) Hives Drug All ergy 05/01/2019 Active sulfamethoxazole / trimethoprim Bactrim(ND Code:[address]-21) Hives Drug Allergy 05/01/2019 Active ENCOUNTERS from 1970 to 2020-11-15 Encounter Location Date Provider Diagnosis [facility] [address] [place] [address] [place] [address] 09 Nov, 2020 Alaina Foster Rheumatoid arthritis with po sitive rheumatoid factor, involving unspecified site M05.9 IMMUNIZATIONS Vaccine Route Administration Date Status Hepatitis A Adult 1.0mL Havrix Unknown Mar 31, 2019 A dministered SOCIAL HISTORY Tobacco Use: Social History Observation Description Date Details (start date - stop date) Current Smoker Sex Assigned At : Social History Observation Description Sex Assigned At Unknown Education: Question Answer Notes Level of Education: Finished High School Language: Question Answer Notes Languages spoken: Haitian Bahai: Question Answer Notes Bahai 08 Sikh Sexual Hx: Question Answer Notes Had sex [...] Information RESULTS No Results REASON FOR VISIT Hosp f/u MEDICAL (GENERAL) HISTORY Type Description Date Medical [...] Ricardo Marino at [facility] 06/26/19 with 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 with epidural abscess measuring 7 x 2 x 19 mm with anterior epidural inflammatory changes from L3-L4 bilateral psoas abscess from L2-L5 Medical History transesophageal echocardiogr am with pediatric probe showed a tricuspid valve vegetation 0.4x 0.7 cm with moderate tricuspid regurgitation at [facility] Dr Estephanie Agosto Surgical History c-sections [...] Treatment Notes Treatm ent Clinical Notes Nov, Rheumatoid arthritis with po sitive rheumatoid factor, involving unspecified site (ICD-10 - M05.9) PLAN OF TREATMENT Medication Medication Name Sig [...] Provider Name:Betty Jose, 2020-11-06 6 01:00:00 PM, [address] [place] [address], , [place], [address], Provider Name:Alaina Foster, 12:00:00 AM, [address] [facility], , [place], [address], Provider Name:Kandice Bolanos, 2020-03 01:00:00 PM, [address] [place] [address] , [place], [address], Insurance Providers Payer Name Payer Address Payer Phone Insured Name Patient Relati onship to Insured Coverage Start Date Coverage End Date [facility] COMMUN[facility] PL[facility] [address] [facility] [address] [phone] MYLES BLACKWELL self MEDICAID [employer] [address] [facility] [id number] MYLES BLACKWELL self
--- OUTSIDE RECORDS SUMMARY | 2021-02-14 05:25 | CCD ---
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 Active confirmed 734211580 Problem Septic embolism I76 Active confirmed 4140 25568 Problem Rheumatoid arthritis with po sitive rheumatoid factor, involving unspecified site M05.9 Active confirmed 648601587 Problem 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 Active confirmed 37642753 Problem Aphthous ulcer K12.0 Active confirmed 41977 7000 Problem 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 Active confi rmed 00202880 Problem Gastroesophageal reflux disease, esophagitis pre sence not specified K21.9 Active confirmed 901208968 Problem Methicillin resistant Staphy lococcus aureus infection as the cause of diseases classified elsewhere B95.62 Active confirmed 205748743 Problem Lumbosacral radiculopathy due to degenerative chayo int disease of spine M47.27 Active confirmed 329780621 Problem MRSA (methicillin resistant staph aureus) culture positive Z22.322 Active confirmed 988220425 Problem Generalized anxiety disorder F41.1 Active confirme d 15477474 Problem Psoas muscle abscess K68.12 Active confirmed 432331965 Problem Primary osteoarthritis, 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 Active confirmed 875677560740264 Problem Other specified acute skin changes due to ultraviolet radiation L56.8 Active confirmed 70895561 Problem Gangrene of finger I96 Active confirmed 1 54443527 Problem Primary osteoarthritis, right hand M19.041 Activ e confirmed 29319056 Problem Bilious vomiting with nausea R11.14 Active confirme d 78483229 Problem Pneumonia due to infectious organism, unspecified laterality, unspecified part of lung J18.9 Active confirmed 15636 2009 Problem IV drug abuse F19.10 Active confirmed 157262 006 Problem Acrocyanosis I73.89 Active confirmed 2451133 6 Problem Surgical menopause, symptomatic E89.41 Active confi rmed 505287153 Problem Raynaud's disease without gangrene I73.00 Activ e confirmed 493826197 Problem Acute midline low back pain without sciatica M54.5 Active confirmed 678881016 Problem Epidural abscess, L2-L5 G06.1 Active confirmed 566124240 Problem Bronchitis J40 Active confirmed 28121254 Problem Rheumatoid arthritis involvi ng left hand with positive rheumatoid factor M05.742 Active confirmed 4948033906526865 Problem Swelling of finger of right hand M79.89 Active confirmed 14786163127428029 Problem Rheumatoid arthritis involvi ng multiple sites with positive rheumatoid factor M05.79 Active confirmed 411097725 ALLERGIES Allergen (clinical drug ingredient) Drug/Non Drug Allergy do cumented on EMR Reaction Allergy Type Onset Date Status Sulfa (for allergy use only) Hives Drug Allergy 2019 Active Penicillin (For Allergies Use Only) Hives Drug Allerg y Active vancomycin Vancomycin HCl([facility] Code:[address]-32) Hives Drug All ergy 05/01/2019 Active sulfamethoxazole / trimethoprim Bactrim(ND Code:[address]-46) Hives Drug Allergy 05/01/2019 Active ENCOUNTERS from 1970 to 2020-11-22 Encounter Location Date Provider Diagnosis [facility] [address] [facility] [phone] [place] [address] 16 Nov, 2020 Betty Jose IMMUNIZATIONS Vaccine Route Administration [...] School Language: Question Answer Notes Languages spoken: Greek Evangelical: Question Answer Notes Evangelical 08 Episcopal Sexual Hx: Question Answer Notes Had sex [...] Information RESULTS No Results REASON FOR VISIT appt MEDICAL (GENERAL) HISTORY Type Description Date Medical [...] I&D done by Dr. 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 with epidural abscess measuring 7 x 2 x 19 mm with anterior epidural inflammatory changes from L3-L4 bilateral psoas abscess from L2-L5 Medical History transesophageal echocardiogr am with pediatric probe showed a tricuspid valve vegetation 0.4x 0.7 cm with moderate tricuspid regurgitation at [facility] Dr Estephanie Agosto Surgical History c-sections Surgical [...] Provider Name:Betty Jose, 2020-10-1 2 01:00:00 PM, [address] [place] [address], , [place], [address], Provider Name:Alaina Foster, 12:00:00 AM, [address] [facility], , [place], [address], Provider Name:aKndice Bolanos, 2020-03 01:00:00 PM, [address] [facility], , [place], [address], Insurance Providers Payer Name Payer Address Payer Phone Insured Name Patient Relati onship to Insured Coverage Start Date Coverage End Date [facility] COMM[facility] [address] [facility] [phone] MYLES BLACKWELL self MEDICAID [facility] [address] [facility] [id number] MYLES BLACKWELL self
--- OUTSIDE RECORDS SUMMARY | 2021-02-14 05:25 | CCD ---
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 Active confirmed 564264902 Problem Septic embolism I76 Active confirmed 4140 48504 Problem Rheumatoid arthritis with po sitive rheumatoid factor, involving unspecified site M05.9 Active confirmed 866948001 Problem 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 Active confirmed 49700931 Problem Aphthous ulcer K12.0 Active confirmed 67061 7000 Problem 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 Active confi rmed 44688821 Problem Gastroesophageal reflux disease, esophagitis pre sence not specified K21.9 Active confirmed 140578815 Problem Methicillin resistant Staphy lococcus aureus infection as the cause of diseases classified elsewhere B95.62 Active confirmed 677256457 Problem Lumbosacral radiculopathy due to degenerative chayo int disease of spine M47.27 Active confirmed 077356076 Problem MRSA (methicillin resistant staph aureus) culture positive Z22.322 Active confirmed 560777654 Problem Generalized anxiety disorder F41.1 Active confirme d 90556823 Problem Psoas muscle abscess K68.12 Active confirmed 354755669 Problem Primary osteoarthritis, 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 Active confirmed 909220381783161 Problem Other specified acute skin changes due to ultraviolet radiation L56.8 Active confirmed 85689124 Problem Gangrene of finger I96 Active confirmed 1 77824129 Problem Primary osteoarthritis, right hand M19.041 Activ e confirmed 08731841 Problem Bilious vomiting with nausea R11.14 Active confirme d 04363578 Problem Pneumonia due to infectious organism, unspecified laterality, unspecified part of lung J18.9 Active confirmed 92011 2009 Problem IV drug abuse F19.10 Active confirmed 863823 006 Problem Acrocyanosis I73.89 Active confirmed 6208817 6 Problem Surgical menopause, symptomatic E89.41 Active confi rmed 915499983 Problem Raynaud's disease without gangrene I73.00 Activ e confirmed 617736980 Problem Acute midline low back pain without sciatica M54.5 Active confirmed 380561790 Problem Epidural abscess, L2-L5 G06.1 Active confirmed 525083493 Problem Bronchitis J40 Active confirmed 19561366 Problem Rheumatoid arthritis involvi ng left hand with positive rheumatoid factor M05.742 Active confirmed 4835860555429074 Problem Swelling of finger of right hand M79.89 Active confirmed 62086592465046619 Problem Rheumatoid arthritis involvi ng multiple sites with positive rheumatoid factor M05.79 Active confirmed 256202166 ALLERGIES Allergen (clinical drug ingredient) Drug/Non Drug Allergy do cumented on EMR Reaction Allergy Type Onset Date Status Sulfa (for allergy use only) Hives Drug Allergy 2019 Active Penicillin (For Allergies Use Only) Hives Drug Allerg y Active vancomycin Vancomycin HCl([facility] Code:[address]-45) Hives Drug All ergy 05/01/2019 Active sulfamethoxazole / trimethoprim Bactrim([facility] Code:[address]-55) Hives Drug Allergy 05/01/2019 Active ENCOUNTERS from 1970 to 2020-12-16 Encounter Location Date Provider Diagnosis [facility] [place] [address] [facility] [phone] [place] [address] 19 Oct, 2020 Betty Jose Epidural abscess, L2 -L5 G06.1 ; 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 ; Rheumatoid arthritis involving left hand with positive rheumatoid factor M05.742 ; Methicillin resistant Staphylococcus aureus infection as the cause of diseases classified elsewhere B95.62 ; Iron deficiency anemia, unspecified iron deficiency anemia type D50.9 ; History of hepatitis C Z86.19 ; Lumbosacral radiculopathy due to degenerative joint disease of spine M47.27 ; 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 ; IV drug abuse F19.10 ; Gastrointestinal hemorrhage, unspecified gastrointestinal hemorrhage type K92.2 ; Acrocyanosis I73.89 ; Constipation due to pain medication K59.03 and Bronchitis J40 IMMUNIZATIONS Vaccine Route Administration Date Status Influenza [...] School Language: Question Answer Notes Languages spoken: Macedonian Tenriism: Question Answer Notes Tenriism 08 Taoist Sexual Hx: Question Answer Notes [...] FOR REFERRAL No Information VITAL SIGNS Weight 99 lbs Oct, Weight-kg 44.91 kg Oct, Height 59 in Oct, BMI 19.99 kg/m2 Oct, Heart Rate 104 /min Oct, Respiratory Rate 18 /min Oct, Temperature 98.2 degrees Fahrenheit Oct, Oximetry 97% Oct, Blood pressure systolic 110 mm Hg Oct, Blood pressure diastolic 64 mm Hg Oct, MEDICATIONS Medication SIG (Take, Route, Frequency, Duration) Notes Start Da te End Date Status Nitro-Bid 2 % as directed Transdermal bid Active Senna 8.6 MG 2 tablets at bedtime as needed Orally Once a day for 3 0 day(s) Active Plaquenil 200 MG 1 tab Orally DAILY for 30 days Active Diflucan 150 MG 1 tablet Orally weekly for 28 day(s) Active MiraLax 17 GM/SCOOP as directed Orally Active Estradiol 0.5 MG 1 tablet Orally Once a day for 30 day(s) Active NIFEdipine 10 MG 1 capsule as needed Orally every 8 hrs for 30 Days Active Sublocade 300 MG/1.5ML as directed Subcutaneous Active predniSONE 5 MG 1 tablet Orally take 2 table ts a day for 2 weeks then 1 tablet a day for 2 weeks and stop for 30 day(s) Nov, Active SM Gentle Laxative 5 MG TAKE ONE TABLET BY MOUTH EVERY DAY NEEDE D for 30 Active Dulcolax 5 MG 1 tablet as needed Orally Once a day for 30 day(s) Active Suboxone 8-2 MG 1 film under the tongue and allow to dissolve Singh blingual bid Active SEROquel 200 MG 1 tab Orally Once a day Active Omeprazole 20 MG 1 capsule 30 minutes before morning meal Orally Lavern y Active CeleBREX 200 MG 1 capsule with food Orally Once a day Active Dalvance 500 MG 1500 mg Intravenous every 2 weeks Dx epidural abscess for 28 day(s) Active Ondansetron 8 MG 1 tablet on the tongue and a llow to dissolve as needed Orally Once a day for 30 day(s) Active Gabapentin 300 MG 1 capsule Orally three times daily Active Sildenafil Citrate 20 MG 1 tablet Orally Once a day for 30 day(s ) Sep, Active Venlafaxine HCl ER 150 MG 1 tablet with food Orally Once a day Active Aspirin 81 81 MG 1 tablet Orally Once a day Active PROCEDURES No Information RESULTS No Results REASON FOR VISIT 1m follow up MEDICAL (GENERAL) HISTORY Type Description [...] 0.7 cm with moderate tricuspid regurgitation at [facility] Dr Estephanie Agosto Surgical History c-sections [...] Notes Treatment Notes Treatm ent Clinical Notes Oct, Epidural abscess, L2-L5 (ICD-10 - G06.1) Needs follow up with Dr Marino, abnormal MRI persistent findings needs reevaluation / hardware removal. Advised patient to call Dr. Marino's office for follow up appointment ANDERSON referral was made by her primary care provider Danya. Could not obtain prior authorization for MRI lumbar spine. Oct, Endocarditis of tricuspid valve (ICD-10 - I07.9) Transesophageal echocardiogram was done 01/10/2020 tricuspid valve vegetation measuring 0.4 x 0.7 cm consistent with healed old endocarditis. Patient had been clean for 3/months since 07/2020 ESR and CRP have been slightly elevated but blood cultures 09/24 x2 have been negative Oct, Rheumatoid arthritis involvi ng left hand with positive rheumatoid factor (ICD-10 - M05.742) Has reestablished with rheumatolgy and has appt with Dr. Alcantar on 08/27 she continues on Plaquenil and has been more compliant. Oct, Methicillin resistant Staphy lococcus aureus infection as the cause of diseases classified elsewhere (ICD-10 - B95.62) Patient had labs and blood cultures negative done , ESR normal bur CRP high . Oct, Iron deficiency anemia, unsp ecified iron deficiency anemia type (ICD-10 - D50.9) Normal iron studies not anemic Oct, History of hepatitis C (ICD-10 - Z86.19) Repeat hepatitis C quant RNA ordered and LFT to make sure she does not have reinfection. Oct, Lumbosacral radiculopathy du e to degenerative joint disease of spine (ICD-10 - M47.27) Patient unable to get MRI and and MRI LS spine due to insurance reasons. Oct, Small vessel vasculitis (ICD-10 - I77.6) Will arrange FU with Dr Vaughan had seen him before for vasculitis Oct, IV drug abuse (ICD-10 - F19.10) Relapse using IV heroin and tamy, overdosed and was sent to [facility] for rehabilitation for 28 days came home end of Oct, Gastrointestinal hemorrhage, unspecified gastrointestinal hemorrhage type (ICD-10 - K92.2) Patient will come up on Wednesday morning 4 days ago through a large amount of blood clots resolved after 24 hours. Patient is on a PPI. Has a history of peptic ulcer disease. She will be referred for gastroenterology Oct, Acrocyanosis (ICD-10 - I73.89) Dermatology and rheumatology both believe that her ischemic ulcers are related to Raynaud's phenomena and not vasculitis possibly also worsened by use of amphetamine Oct, Constipation due to pain medication (ICD-10 - K5 9.03) Patient will be referred to gastroenterology by her primary care provider she has been on MiraLAX and Senokot up to 4 tablets a day this is most likely related to Suboxone injectable she will try Dulcolax and increase water intake Oct, Bronchitis (ICD-10 - J40) She has not received COVID-19 vaccination everyone around her has been sick with a cough Kelin antigen COVID-19 was ordered in the office. Patient was encouraged to go get her vaccination as soon as possible PLAN OF TREATMENT Medication Medication Name Sig Start Date Stop Date Suboxone 8-2 MG 1 film under the tongue and allow to dissolve Snigh blingual bid SM Gentle Laxative 5 MG TAKE ONE TABLET BY MOUTH EVERY DAY NE EDED for 30 Ondansetron 8 MG 1 tablet on the tongue and a llow to dissolve as needed Orally Once a day for 30 day(s) CeleBREX 200 MG 1 capsule with food Orally Once a day Dulcolax 5 MG 1 tablet as needed Orally Once a day for 30 day( s) Gabapentin 300 MG 1 capsule Orally three times daily NIFEdipine 10 MG 1 capsule as needed Orally every 8 hrs for 30 D ays Aspirin 81 81 MG 1 tablet Orally Once a day Omeprazole 20 MG 1 capsule 30 minutes before morning meal Orally Daily Plaquenil 200 MG 1 tab Orally DAILY for 30 days Nitro-Bid 2 % as directed Transdermal bid Treatment Notes Assessment Notes Clinical Notes Epidural abscess, L2-L5 Needs follow up with Dr Marino, abnormal MRI persistent findings needs reevaluation / hardware removal. Advised patient to call Dr. Marino's office for follow up appointment ANDERSON referral was made by her primary care provider Danya. Could not obtain prior authorization for MRI lumbar spine. Bronchitis She has not received COVID-19 vaccination everyone around her has been sick with a coughSophia antigen COVID-19 was ordered in the office. Patient was encouraged to go get her vaccination as soon as possible Endocarditis of tricuspid valve Transeso phageal echocardiogram was done 01/10/2020 tricuspid valve vegetation measuring 0.4 x 0.7 cm consistent with healed old endocarditis. Patient had been clean for 3/months since SR and CRP have been slightly elevated but blood cultures 09/24 x2 have been negative Rheumatoid arthritis involving left hand with positive rheum atoid factor Has reestablished with rheumatolgy and has appt with Dr. Alcantar on 08/27 she continues on Plaquenil and has been more compliant. Methicillin resistant Staphylococcus aur eus infection as the cause of diseases classified elsewhere Patient had labs and blood c ultures negative done , ESR normal bur CRP high . Iron deficiency anemia, unspecified iron deficiency anemia t ype Normal iron studies not anemic History of hepatitis C Repeat hepatitis C quant RNA ordered and LFT to make sure she does not have reinfection. Lumbosacral radiculopathy due to degenerative joint disease of spine Patient unable to get MRI and and MRI LS spine due to insurance reasons. Constipation due to pain medication Phyllis ent will be referred to gastroenterology by her primary care provider she has been on MiraLAX and Senokot up to 4 tablets a day this is most likely related to Suboxone injectable she will try Dulcolax and increase water intake Acrocyanosis Dermatology and rheu matology both believe that her ischemic ulcers are related to Raynaud's phenomena and not vasculitis possibly also worsened by use of amphetamine Small vessel vasculitis Will arrange FU with Dr Vaughan had seen him before for vasculitis IV drug abuse Relapse using IV her oin and tamy, overdosed and was sent to [facility] for rehabilitation for 28 days came home end of May Gastrointestinal hemorrhage, unspecified gastrointestinal he morrhage type Patient will come up on Wednesday morning 4 days ago through a large amount of blood clots resolved after 24 hours. Patient is on a PPI. Has a history of peptic ulcer disease. She will be referred for gastroenterology Treatment Notes Test Name Order Date Quarterly (Point of Care) 2020-10-24 Next Appt Details 4 Weeks Reason: Provider Name:Betty Jose, 2020-12-06 2 01:00:00 PM, [address] [facility], , [place], [address], Provider Name:Alaina Foster, 12:00:00 AM, [address] [facility] [address], , [place], [address], Provider Name:Kandice Bolanos, 2020-03- 01:00:00 PM, [address] [place] [address], , [place], [address], Insurance Providers Payer Name Payer Address Payer Phone Insured Name Patient Relati onship to Insured Coverage Start Date Coverage End Date MEDICAID [place] Vol[place] [address] [facility] [id number] [address] [place] self [facility] [address] [facility] [id number] MYLES [place] self
--- OUTSIDE RECORDS SUMMARY | 2021-02-14 05:25 | CCD ---
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 Active confirmed 355857351 Problem Septic embolism I76 Active confirmed 4140 77924 Problem Rheumatoid arthritis with po sitive rheumatoid factor, involving unspecified site M05.9 Active confirmed 103632557 Problem 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 Active confirmed 03510329 Problem Aphthous ulcer K12.0 Active confirmed 40739 7000 Problem 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 Active confi rmed 58260154 Problem Gastroesophageal reflux disease, esophagitis pre sence not specified K21.9 Active confirmed 742414287 Problem Methicillin resistant Staphy lococcus aureus infection as the cause of diseases classified elsewhere B95.62 Active confirmed 441031191 Problem Lumbosacral radiculopathy due to degenerative chayo int disease of spine M47.27 Active confirmed 840818297 Problem MRSA (methicillin resistant staph aureus) culture positive Z22.322 Active confirmed 890568925 Problem Generalized anxiety disorder F41.1 Active confirme d 19718381 Problem Psoas muscle abscess K68.12 Active confirmed 313019182 Problem Primary osteoarthritis, 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 Active confirmed 749809642749097 Problem Other specified acute skin changes due to ultraviolet radiation L56.8 Active confirmed 92923458 Problem Gangrene of finger I96 Active confirmed 1 89712293 Problem Primary osteoarthritis, right hand M19.041 Activ e confirmed 15113714 Problem Bilious vomiting with nausea R11.14 Active confirme d 44122362 Problem Pneumonia due to infectious organism, unspecified laterality, unspecified part of lung J18.9 Active confirmed 06949 2009 Problem IV drug abuse F19.10 Active confirmed 071662 006 Problem Acrocyanosis I73.89 Active confirmed 6342393 6 Problem Surgical menopause, symptomatic E89.41 Active confi rmed 949030480 Problem Raynaud's disease without gangrene I73.00 Activ e confirmed 629385208 Problem Acute midline low back pain without sciatica M54.5 Active confirmed 777630304 Problem Epidural abscess, L2-L5 G06.1 Active confirmed 780804245 Problem Bronchitis J40 Active confirmed 05266208 Problem Rheumatoid arthritis involvi ng left hand with positive rheumatoid factor M05.742 Active confirmed 8457630589578092 Problem Swelling of finger of right hand M79.89 Active confirmed 53515935764860126 Problem Rheumatoid arthritis involvi ng multiple sites with positive rheumatoid factor M05.79 Active confirmed 533903751 ALLERGIES Allergen (clinical drug ingredient) Drug/Non Drug Allergy do cumented on EMR Reaction Allergy Type Onset Date Status Sulfa (for allergy use only) Hives Drug Allergy 2019 Active Penicillin (For Allergies Use Only) Hives Drug Allerg y Active vancomycin Vancomycin HCl(ND Code:[address]-67) Hives Drug All ergy 05/01/2019 Active sulfamethoxazole / trimethoprim Bactrim(ND Code:[address]-62) Hives Drug Allergy 05/01/2019 Active ENCOUNTERS from 1970 to 2020-11-29 Encounter Location Date Provider Diagnosis [facility] [place] [address] [facility] [phone] [place] [address] 16 Nov, 2020 Betty Jose Epidural abscess, L2 -L5 G06.1 ; 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 ; Rheumatoid arthritis involving left hand with positive rheumatoid factor M05.742 ; Methicillin resistant Staphylococcus aureus infection as the cause of diseases classified elsewhere B95.62 ; Iron deficiency anemia, unspecified iron deficiency anemia type D50.9 ; History of hepatitis C Z86.19 ; Encounter for immunization Z23 ; Lumbosacral radiculopathy due to degenerative joint disease of spine M47.27 ; 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 ; IV drug abuse F19.10 ; Gastrointestinal hemorrhage, unspecified gastrointestinal hemorrhage type K92.2 ; Acrocyanosis I73.89 and Constipation due to pain medication K59.03 IMMUNIZATIONS Vaccine Route Administration Date Status Influenza [...] Language: Question Answer Notes Languages spoken: Nepali Moravian: Question Answer Notes Moravian 08 Druze Sexual Hx: Question Answer Notes Had sex [...] FOR REFERRAL No Information VITAL SIGNS Weight 93 lbs Nov, Weight-kg 42.18 kg Nov, Height 59 in Nov, BMI 18.78 kg/m2 Nov, Heart Rate 112 /min Nov, Respiratory Rate 16 /min Nov, Temperature 97.8 degrees Fahrenheit Nov, Oximetry 98% Nov, Blood pressure systolic 118 mm Hg Nov, Blood pressure diastolic 68 mm Hg Nov, MEDICATIONS Medication SIG (Take, Route, Frequency, Duration) [...] day for 3 0 day(s) Active PROCEDURES from 1970 to 2020-11-29 Procedure Date Ordered Result Body Site Imm: Flublok Quadrivalent 18 years & older 0.5mL IM Influenza 27-11-15 N/A RESULTS No Results REASON FOR VISIT 4 week follow up MEDICAL (GENERAL) HISTORY Type [...] I&D done by Dr. 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 Advised patient to call Dr. Marino's office for follow up appointment ANDERSON referral was made by her primary care provider Danya. Could not obtain prior authorization for MRI lumbar spine. Nov, Endocarditis of tricuspid valve (ICD-10 - I07.9) Transesophageal echocardiogram was done 01/10/2020 tricuspid valve vegetation measuring 0.4 x 0.7 cm consistent with healed old endocarditis. Patient had been clean for 3/months since 07/2020 ESR and CRP have been slightly elevated but blood cultures 09/24 x2 have been negative Nov, Rheumatoid arthritis involvi ng left hand with positive rheumatoid factor (ICD-10 - M05.742) Has reestablished with rheumatolgy and has appt with Dr. Alcantar on 08/27 she continues on Plaquenil and has been more compliant. Nov, Methicillin resistant Staphy lococcus aureus infection as the cause of diseases classified elsewhere (ICD-10 - B95.62) Patient had labs and blood cultures negative done , ESR normal bur CRP high . Nov, Iron deficiency anemia, unsp ecified iron deficiency anemia type (ICD-10 - D50.9) Normal iron studies not anemic Nov, History of hepatitis C (ICD-10 - Z86.19) Repeat hepatitis C quant RNA ordered and LFT to make sure she does not have reinfection. Nov, Encounter for immunization (ICD-10 - Z23) Nov, Lumbosacral radiculopathy du e to degenerative joint disease of spine (ICD-10 - M47.27) Patient unable to get MRI and and MRI LS spine due to insurance reasons. Nov, Small vessel vasculitis (ICD-10 - I77.6) Will arrange FU with Dr Vaughan had seen him before for vasculitis Nov, IV drug abuse (ICD-10 - F19.10) Relapse using IV heroin and tamy, overdosed and was sent to [facility] for rehabilitation for 28 days came home end of Nov, Gastrointestinal hemorrhage, unspecified gastrointestinal hemorrhage type (ICD-10 - K92.2) Patient will come up on Wednesday morning 4 days ago through a large amount of blood clots resolved after 24 hours. Patient is on a PPI. Has a history of peptic ulcer disease. She will be referred for gastroenterology Nov, Acrocyanosis (ICD-10 - I73.89) Dermatology and rheumatology both believe that her ischemic ulcers are related to Raynaud's phenomena and not vasculitis possibly also worsened by use of amphetamine Nov, Constipation due to pain medication (ICD-10 - K5 9.03) Patient will be referred to gastroenterology by her primary care provider she has been on MiraLAX and Senokot up to 4 tablets a day this is most likely related to Suboxone injectable she will try Dulcolax and increase water intake PLAN OF TREATMENT Medication Medication Name Sig [...] 1 tab Orally DAILY for 30 days Treatment Notes Assessment Notes Clinical Notes Epidural abscess, L2-L5 Needs follow up with Dr Marino 12/12/2020 , abnormal MRI persistent findings needs reevaluation / hardware removal. Advised patient to call Dr. Marino's office for follow up appointment [facility] referral was made by her primary care provider Danya. Could not obtain prior authorization for MRI lumbar spine. Endocarditis of tricuspid valve Transeso phageal echocardiogram [...] MRI LS spine due to insurance reasons. Small vessel vasculitis Will arrange FU with Dr Vaughan had seen him before for vasculitis IV drug abuse Relapse using IV her oin and tamy, overdosed and was sent to [facility] for rehabilitation for 28 days came home end of May Gastrointestinal hemorrhage, unspecified gastrointestinal he morrhage type Patient will come up on Wednesday morning 4 days ago through a large amount of blood clots resolved after 24 hours. Patient is on a PPI. Has a history of peptic ulcer disease. She will be referred for gastroenterology Constipation due to pain medication Phyllis ent [...] possibly also worsened by use of amphetamine Next Appt Details 6 Weeks Reason: Provider Name:Alaina Foster, 01:00:00 PM, [address] [facility], , [place], [address], Provider Name:Betty Jose, 2020-12-06 2 01:00:00 PM, [address] [facility], , [place], [address], Provider Name:Kandice Bolanos, 2020-1 04-22 01:00:00 PM, [address] [place] [address], , [place], [address], Insurance Providers Payer Name Payer Address Payer Phone Insured Name Patient Relati onship to Insured Coverage Start Date Coverage End Date MEDICAID [employer] [address] [facility] [id number] [address] self [facility] [address] [facility] [address] MYLES BLACKWELL self
--- OUTSIDE RECORDS SUMMARY | 2021-02-14 05:25 | CCD ---
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 Active confirmed 690542573 Problem Septic embolism I76 Active confirmed 4140 16526 Problem Rheumatoid arthritis with po sitive rheumatoid factor, involving unspecified site M05.9 Active confirmed 113079834 Problem 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 Active confirmed 38165283 Problem Aphthous ulcer K12.0 Active confirmed 28162 7000 Problem 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 Active confi rmed 47291720 Problem Gastroesophageal reflux disease, esophagitis pre sence not specified K21.9 Active confirmed 488173647 Problem Methicillin resistant Staphy lococcus aureus infection as the cause of diseases classified elsewhere B95.62 Active confirmed 324619154 Problem Lumbosacral radiculopathy due to degenerative chayo int disease of spine M47.27 Active confirmed 468572991 Problem MRSA (methicillin resistant staph aureus) culture positive Z22.322 Active confirmed 944531071 Problem Generalized anxiety disorder F41.1 Active confirme d 32712698 Problem Psoas muscle abscess K68.12 Active confirmed 921226572 Problem Primary osteoarthritis, 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 Active confirmed 221278544323901 Problem Other specified acute skin changes due to ultraviolet radiation L56.8 Active confirmed 83994331 Problem Gangrene of finger I96 Active confirmed 1 75528688 Problem Primary osteoarthritis, right hand M19.041 Activ e confirmed 48585008 Problem Bilious vomiting with nausea R11.14 Active confirme d 68080588 Problem Pneumonia due to infectious organism, unspecified laterality, unspecified part of lung J18.9 Active confirmed 02460 2009 Problem IV drug abuse F19.10 Active confirmed 972061 006 Problem Acrocyanosis I73.89 Active confirmed 1747933 6 Problem Surgical menopause, symptomatic E89.41 Active confi rmed 234157458 Problem Raynaud's disease without gangrene I73.00 Activ e confirmed 759822386 Problem Acute midline low back pain without sciatica M54.5 Active confirmed 698756155 Problem Epidural abscess, L2-L5 G06.1 Active confirmed 344111857 Problem Bronchitis J40 Active confirmed 67323878 Problem Rheumatoid arthritis involvi ng left hand with positive rheumatoid factor M05.742 Active confirmed 3879250766342433 Problem Swelling of finger of right hand M79.89 Active confirmed 96820292219215076 Problem Rheumatoid arthritis involvi ng multiple sites with positive rheumatoid factor M05.79 Active confirmed 168359600 ALLERGIES Allergen (clinical drug ingredient) Drug/Non Drug Allergy do cumented on EMR Reaction Allergy Type Onset Date Status Sulfa (for allergy use only) Hives Drug Allergy 2019 Active Penicillin (For Allergies Use Only) Hives Drug Allerg y Active vancomycin Vancomycin HCl(ND Code:[address]-55) Hives Drug All ergy 05/01/2019 Active sulfamethoxazole / trimethoprim Bactrim(NDC Code:[address]-46) Hives Drug Allergy 05/01/2019 Active ENCOUNTERS from 1970 to 2020-12-05 Encounter Location Date Provider Diagnosis [facility] Rheumatology [address] [place] [address] [place] [address] Nov, Alaina Foster Rheumatoid arthritis involvi ng left hand with [...] School Language: Question Answer Notes Languages spoken: Panamanian Yarsani: Question Answer Notes Yarsani 08 Amish Sexual Hx: Question Answer Notes Had sex [...] Information RESULTS No Results REASON FOR VISIT Sildenafil/Plaquenil/Eye Exam MEDICAL (GENERAL) HISTORY Type Description Date [...] I&D done by Dr. 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 with epidural abscess measuring 7 x 2 x 19 mm with anterior epidural inflammatory changes from L3-L4 bilateral psoas abscess from L2-L5 Medical History transesophageal echocardiogr am with pediatric probe showed a tricuspid valve vegetation 0.4x 0.7 cm with moderate tricuspid regurgitation at [facility] Dr Estephanie Agosto Surgical History [...] Treatm ent Clinical Notes Nov, Rheumatoid arthritis involvi ng left hand [...] Details Provider Name:Alaina Foster, 01:00:00 PM, [address] [facility], , [place], [address], Provider Name:Betty Jose, 2020-12-06 2 01:00:00 PM, [address] [place] [address] , [place], [address], Provider Name:Kandice Bolanos, 2020-03 2-15 01:00:00 PM, [address] [place] [address] , [place], [address], Insurance Providers Payer Name Payer Address Payer Phone Insured Name Patient Relati onship to Insured Coverage Start Date Coverage End Date [facility] [address] [facility] [address] MYLES BLACKWELL self MEDICAID [facility] [address] [facility] [id number] MYLES BLACKWELL self
--- OUTSIDE RECORDS SUMMARY | 2021-02-14 05:25 | CCD ---
Author Author [facility] Organization 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 Active confirmed 175745653 Problem Septic embolism I76 Active confirmed 4140 60999 Problem Rheumatoid arthritis with po sitive rheumatoid factor, involving unspecified site M05.9 Active confirmed 662375933 Problem 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 Active confirmed 51182115 Problem Aphthous ulcer K12.0 Active confirmed 53442 7000 Problem 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 Active confi rmed 84471787 Problem Gastroesophageal reflux disease, esophagitis pre sence not specified K21.9 Active confirmed 352117346 Problem Methicillin resistant Staphy lococcus aureus infection as the cause of diseases classified elsewhere B95.62 Active confirmed 770627018 Problem Lumbosacral radiculopathy due to degenerative chayo int disease of spine M47.27 Active confirmed 396678908 Problem MRSA (methicillin resistant staph aureus) culture positive Z22.322 Active confirmed 495289007 Problem Generalized anxiety disorder F41.1 Active confirme d 68191190 Problem Psoas muscle abscess K68.12 Active confirmed 003853884 Problem Primary osteoarthritis, 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 Active confirmed 951740230599285 Problem Other specified acute skin changes due to ultraviolet radiation L56.8 Active confirmed 90379740 Problem Gangrene of finger I96 Active confirmed 1 43603015 Problem Primary osteoarthritis, right hand M19.041 Activ e confirmed 88947879 Problem Bilious vomiting with nausea R11.14 Active confirme d 82069151 Problem Pneumonia due to infectious organism, unspecified laterality, unspecified part of lung J18.9 Active confirmed 91308 2009 Problem IV drug abuse F19.10 Active confirmed 975369 006 Problem Acrocyanosis I73.89 Active confirmed 0093809 6 Problem Surgical menopause, symptomatic E89.41 Active confi rmed 486463991 Problem Raynaud's disease without gangrene I73.00 Activ e confirmed 524554281 Problem Acute midline low back pain without sciatica M54.5 Active confirmed 139127471 Problem Epidural abscess, L2-L5 G06.1 Active confirmed 692013707 Problem Bronchitis J40 Active confirmed 37238981 Problem Rheumatoid arthritis involvi ng left hand with positive rheumatoid factor M05.742 Active confirmed 9796751198691809 Problem Swelling of finger of right hand M79.89 Active confirmed 73078744192659729 Problem Rheumatoid arthritis involvi ng multiple sites with positive rheumatoid factor M05.79 Active confirmed 118477472 ALLERGIES Allergen (clinical drug ingredient) Drug/Non Drug Allergy do cumented on EMR Reaction Allergy Type Onset Date Status Sulfa (for allergy use only) Hives Drug Allergy 2019 Active Penicillin (For Allergies Use Only) Hives Drug Allerg y Active vancomycin Vancomycin HCl(NDC Code:[address]-06) Hives Drug All ergy 05/01/2019 Active sulfamethoxazole / trimethoprim Bactrim(NDC Code:[address]-49) Hives Drug Allergy 05/01/2019 Active ENCOUNTERS from 1970 to 2020-12-12 Encounter Location Date Provider Diagnosis [address] [phone] [place] [address] Dec, Kandice Bolanos Encounter for eye exam due t o high risk medication Z79.899 IMMUNIZATIONS Vaccine Route Administration Date Status Influenza [...] School Language: Question Answer Notes Languages spoken: Hungarian Worship: Question Answer Notes Worship 08 Nondenominational Sexual Hx: Question Answer Notes Had sex [...] do you smoke? 6-10 REASON FOR REFERRAL from 1970 to 2020-12-12 Reason please evaluate and treat|co mplete eye exam. plaquenil therapy Diagnosis 1 Encounter for eye exam due t o high risk medication (Z79.899) Referral Organization [facility] [place] Referring Provider First Name Kandice Referring Provider Last Name Luis Miguel Referring Provider Specialty Family Medicine Referred Provider Franky Workman Referral Priority Routine General Notes Maki Cruz 12/06/2020 10 :23:47 AM > Please obtain PA VITAL SIGNS No information MEDICATIONS Medication SIG [...] RESULTS No Results REASON FOR VISIT Referral s MEDICAL (GENERAL) HISTORY Type Description Date Medical [...] I&D done by Dr. Ricardo Marino at [facility] MRI 06/26/19 with disc vertebral [...] Notes Treatment Notes Treatm ent Clinical Notes Dec, Encounter for eye exam due t o high risk medication (ICD-10 - Z79.899) PLAN OF TREATMENT Medication Medication Name Sig [...] 1 tab Orally DAILY for 30 days Referrals Referral Date Details please evaluate and treat|co mplete eye exam. plaquenil therapy, Noaman Ji Next Appt Details Provider Name:Alaina Foster, 10:45:00 AM, [address] [place] [address] , [place], [place], [facility] [phone] Provider Name:Betty Jose, 2020-12-06 2 01:00:00 PM, [address] [place] [address] , [place], [address], Provider Name:Kandice Bolanos, 2020-03 2- 01:00:00 PM, [address] [place] [address] , [place], [address], Insurance Providers Payer Name Payer Address Payer Phone Insured Name Patient Relati onship to Insured Coverage Start Date Coverage End Date MEDICAID [employer] [address] [facility] [address] [address] self [facility] [address] [facility] [address] MYLES BLACKWELL self"
--- OUTSIDE RECORDS SUMMARY | 2021-02-14 05:25 | CCD ---
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 Active confirmed 206819201 Problem Septic embolism I76 Active confirmed 4140 66866 Problem Rheumatoid arthritis with po sitive rheumatoid factor, involving unspecified site M05.9 Active confirmed 370988904 Problem 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 Active confirmed 22888520 Problem Aphthous ulcer K12.0 Active confirmed 48828 7000 Problem 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 Active confi rmed 76013225 Problem Gastroesophageal reflux disease, esophagitis pre sence not specified K21.9 Active confirmed 403358706 Problem Methicillin resistant Staphy lococcus aureus infection as the cause of diseases classified elsewhere B95.62 Active confirmed 910291515 Problem Lumbosacral radiculopathy due to degenerative chayo int disease of spine M47.27 Active confirmed 728364159 Problem MRSA (methicillin resistant staph aureus) culture positive Z22.322 Active confirmed 209311113 Problem Generalized anxiety disorder F41.1 Active confirme d 55980553 Problem Psoas muscle abscess K68.12 Active confirmed 254081277 Problem Primary osteoarthritis, 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 Active confirmed 821815650536267 Problem Other specified acute skin changes due to ultraviolet radiation L56.8 Active confirmed 41286073 Problem Gangrene of finger I96 Active confirmed 1 39022990 Problem Primary osteoarthritis, right hand M19.041 Activ e confirmed 20410078 Problem Bilious vomiting with nausea R11.14 Active confirme d 95317905 Problem Pneumonia due to infectious organism, unspecified laterality, unspecified part of lung J18.9 Active confirmed 58735 2009 Problem IV drug abuse F19.10 Active confirmed 770457 006 Problem Acrocyanosis I73.89 Active confirmed 9193535 6 Problem Surgical menopause, symptomatic E89.41 Active confi rmed 821011861 Problem Raynaud's disease without gangrene I73.00 Activ e confirmed 229344120 Problem Acute midline low back pain without sciatica M54.5 Active confirmed 816340919 Problem Epidural abscess, L2-L5 G06.1 Active confirmed 297095800 Problem Bronchitis J40 Active confirmed 24318056 Problem Rheumatoid arthritis involvi ng left hand with positive rheumatoid factor M05.742 Active confirmed 7198582703815740 Problem Swelling of finger of right hand M79.89 Active confirmed 27135491159499690 Problem Rheumatoid arthritis involvi ng multiple sites with positive rheumatoid factor M05.79 Active confirmed 843119880 ALLERGIES Allergen (clinical drug ingredient) Drug/Non Drug Allergy do cumented on EMR Reaction Allergy Type Onset Date Status Sulfasalazine Sulfa Antibiotics Hives Drug Allergy 05/01/2019 Ac tive Penicillin (For Allergies Use Only) Hives Drug Allerg y Active vancomycin Vancomycin HCl([facility] Code:[address]-75) Hives Drug All ergy 05/01/2019 Active sulfamethoxazole / trimethoprim Bactrim(ND Code:[address]-30) Hives Drug Allergy 05/01/2019 Active ENCOUNTERS from 1970 to 2020-12-31 Encounter Location Date Provider Diagnosis [facility] Rheumatology [address] [place] [address] [place] [address] Dec, Alaina Foster IMMUNIZATIONS Vaccine Route Administration [...] School Language: Question Answer Notes Languages spoken: Portuguese Pentecostal: Question Answer Notes Pentecostal 08 Cheondoism Sexual Hx: Question Answer Notes [...] Information RESULTS No Results REASON FOR VISIT IN ALOT OF PAIN RAJIV HANDS MEDICAL (GENERAL) HISTORY Type Description Date Medical [...] Dr. 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 with epidural abscess measuring 7 x 2 x 19 mm with anterior epidural inflammatory changes from L3-L4 bilateral psoas abscess from L2-L5 Medical History transesophageal echocardiogr am with pediatric probe showed a tricuspid valve vegetation 0.4x 0.7 cm with moderate tricuspid regurgitation at [facility] Dr Estephanie Agosto Surgical History c-sections [...] Details Provider Name:Alaina Foster, 12:00:00 AM, [address] [facility], , [place], [address], Provider Name:Betty Jose, 2021-01-07 3 01:30:00 PM, [address] [place] [address] , [place], [address], Provider Name:Kandice Bolanos, 2020-03 01:00:00 PM, [address] [place] [address] , [place], [address], Insurance Providers Payer Name Payer Address Payer Phone Insured Name Patient Relati onship to Insured Coverage Start Date Coverage End Date MEDICAID [id number] [address] [facility] [id number] MYLES BLACKWELL self [facility] [place] [address] [facility] [id number] MLYES BLACKWELL self
--- OUTSIDE RECORDS SUMMARY | 2021-02-14 05:25 | CCD ---
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 Active confirmed 849376590 Problem Septic embolism I76 Active confirmed 4140 66541 Problem Rheumatoid arthritis with po sitive rheumatoid factor, involving unspecified site M05.9 Active confirmed 533192981 Problem 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 Active confirmed 74398367 Problem Aphthous ulcer K12.0 Active confirmed 80302 7000 Problem 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 Active confi rmed 04183255 Problem Gastroesophageal reflux disease, esophagitis pre sence not specified K21.9 Active confirmed 038428409 Problem Methicillin resistant Staphy lococcus aureus infection as the cause of diseases classified elsewhere B95.62 Active confirmed 346253296 Problem Lumbosacral radiculopathy due to degenerative chayo int disease of spine M47.27 Active confirmed 404435325 Problem MRSA (methicillin resistant staph aureus) culture positive Z22.322 Active confirmed 586085453 Problem Generalized anxiety disorder F41.1 Active confirme d 66346959 Problem Psoas muscle abscess K68.12 Active confirmed 208079761 Problem Primary osteoarthritis, 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 Active confirmed 576870128890936 Problem Other specified acute skin changes due to ultraviolet radiation L56.8 Active confirmed 04072472 Problem Gangrene of finger I96 Active confirmed 1 98845214 Problem Primary osteoarthritis, right hand M19.041 Activ e confirmed 33284539 Problem Bilious vomiting with nausea R11.14 Active confirme d 29193500 Problem Pneumonia due to infectious organism, unspecified laterality, unspecified part of lung J18.9 Active confirmed 55625 2009 Problem IV drug abuse F19.10 Active confirmed 657644 006 Problem Acrocyanosis I73.89 Active confirmed 5137104 6 Problem Surgical menopause, symptomatic E89.41 Active confi rmed 254109988 Problem Raynaud's disease without gangrene I73.00 Activ e confirmed 835006771 Problem Acute midline low back pain without sciatica M54.5 Active confirmed 604757250 Problem Epidural abscess, L2-L5 G06.1 Active confirmed 349268268 Problem Bronchitis J40 Active confirmed 56144636 Problem Rheumatoid arthritis involvi ng left hand with positive rheumatoid factor M05.742 Active confirmed 2606851158889063 Problem Swelling of finger of right hand M79.89 Active confirmed 12411868094659847 Problem Rheumatoid arthritis involvi ng multiple sites with positive rheumatoid factor M05.79 Active confirmed 072578499 ALLERGIES Allergen (clinical drug ingredient) Drug/Non Drug Allergy do cumented on EMR Reaction Allergy Type Onset Date Status Sulfa (for allergy use only) Hives Drug Allergy 2019 Active Penicillin (For Allergies Use Only) Hives Drug Allerg y Active vancomycin Vancomycin HCl(ND Code:[address]-18) Hives Drug All ergy 05/01/2019 Active sulfamethoxazole / trimethoprim Bactrim(NDC Code:[address]-89) Hives Drug Allergy 05/01/2019 Active ENCOUNTERS from 1970 to 2020-12-05 Encounter Location Date Provider Diagnosis [facility] Rheumatology [address] [place] [address] [place] [address] 30 Nov, 2020 Alaina Foster IMMUNIZATIONS Vaccine Route [...] School Language: Question Answer Notes Languages spoken: Thai Christianity: Question Answer Notes Christianity 08 Protestant Sexual Hx: Question Answer Notes Had sex [...] capsule 30 minutes before morning meal Orally Lavren y Active CeleBREX 200 MG 1 capsule [...] Information RESULTS No Results REASON FOR VISIT [facility] Rhe[facility] referral MEDICAL (GENERAL) HISTORY Type Description Date [...] I&D done by Dr. 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 with epidural abscess measuring 7 x 2 x 19 mm with anterior epidural inflammatory changes from L3-L4 bilateral psoas abscess from L2-L5 Medical History transesophageal echocardiogr am with pediatric probe showed a tricuspid valve vegetation 0.4x 0.7 cm with moderate tricuspid regurgitation at [facility] Dr Estephanie Agosto Surgical History c-sections Surgical [...] Next Appt Details Provider Name:Alaina Foster, 2020-10- 06 01:00:00 PM, [address] [place] [address], , [place], [address], Provider Name:Betty Henderson Rebeca, 2020-12-06 2 01:00:00 PM, [address] [place] [address], , [place], [address], Provider Name:Kandice Shelleychad, 2020-03 2-15 01:00:00 PM, [address] [place] [address], , [place], [address], Insurance Providers Payer Name Payer Address Payer Phone Insured Name Patient Relati onship to Insured Coverage Start Date Coverage End Date [facility] COMM[facility] [address] [facility] [phone] MYLES BLACKWELL self MEDICAID [facility] [address] [facility] [id number] MYLES BLACKWELL self
--- OUTSIDE RECORDS SUMMARY | 2021-02-14 05:25 | CCD ---
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 Active confirmed 499767699 Problem Septic embolism I76 Active confirmed 4140 58477 Problem Rheumatoid arthritis with po sitive rheumatoid factor, involving unspecified site M05.9 Active confirmed 099654868 Problem 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 Active confirmed 23985361 Problem Aphthous ulcer K12.0 Active confirmed 17955 7000 Problem 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 Active confi rmed 77494785 Problem Gastroesophageal reflux disease, esophagitis pre sence not specified K21.9 Active confirmed 867963448 Problem Methicillin resistant Staphy lococcus aureus infection as the cause of diseases classified elsewhere B95.62 Active confirmed 948445261 Problem Lumbosacral radiculopathy due to degenerative chayo int disease of spine M47.27 Active confirmed 327105666 Problem MRSA (methicillin resistant staph aureus) culture positive Z22.322 Active confirmed 865270173 Problem Generalized anxiety disorder F41.1 Active confirme d 84321905 Problem Psoas muscle abscess K68.12 Active confirmed 130509948 Problem Primary osteoarthritis, 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 Active confirmed 899710060886719 Problem Other specified acute skin changes due to ultraviolet radiation L56.8 Active confirmed 15350296 Problem Gangrene of finger I96 Active confirmed 1 87974310 Problem Primary osteoarthritis, right hand M19.041 Activ e confirmed 06421273 Problem Bilious vomiting with nausea R11.14 Active confirme d 78038001 Problem Pneumonia due to infectious organism, unspecified laterality, unspecified part of lung J18.9 Active confirmed 28910 2009 Problem IV drug abuse F19.10 Active confirmed 160852 006 Problem Acrocyanosis I73.89 Active confirmed 7560139 6 Problem Surgical menopause, symptomatic E89.41 Active confi rmed 533288234 Problem Raynaud's disease without gangrene I73.00 Activ e confirmed 973789692 Problem Acute midline low back pain without sciatica M54.5 Active confirmed 350206575 Problem Epidural abscess, L2-L5 G06.1 Active confirmed 259176854 Problem Bronchitis J40 Active confirmed 83131177 Problem Rheumatoid arthritis involvi ng left hand with positive rheumatoid factor M05.742 Active confirmed 3400012605409463 Problem Swelling of finger of right hand M79.89 Active confirmed 28706669814807720 Problem Rheumatoid arthritis involvi ng multiple sites with positive rheumatoid factor M05.79 Active confirmed 836733207 ALLERGIES Allergen (clinical drug ingredient) Drug/Non Drug Allergy do cumented on EMR Reaction Allergy Type Onset Date Status Sulfa (for allergy use only) Hives Drug Allergy 2019 Active Penicillin (For Allergies Use Only) Hives Drug Allerg y Active vancomycin Vancomycin HCl(NDC Code:[address]-43) Hives Drug All ergy 05/01/2019 Active sulfamethoxazole / trimethoprim Bactrim(NDC Code:[address]-39) Hives Drug Allergy 05/01/2019 Active ENCOUNTERS from 1970 to 2020-12-12 Encounter Location Date Provider Diagnosis [address] [phone] [place] [address] Dec, Kandice Bolanos IMMUNIZATIONS Vaccine Route Administration Date [...] School Language: Question Answer Notes Languages spoken: Amharic Religious: Question Answer Notes Religious 08 Religion Sexual Hx: Question Answer Notes Had sex [...] Information RESULTS No Results REASON FOR VISIT PA request MEDICAL (GENERAL) HISTORY Type Description Date Medical [...] I&D done by Dr. 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 with epidural abscess measuring 7 x 2 x 19 mm with anterior epidural inflammatory changes from L3-L4 bilateral psoas abscess from L2-L5 Medical History transesophageal echocardiogr am with pediatric probe showed a tricuspid valve vegetation 0.4x 0.7 cm with moderate tricuspid regurgitation at [facility] Dr Estephanie Agosto Surgical History [...] days Next Appt Details Provider Name:Alaina Foster, 2020-12- 10:45:00 AM, [address] [place] [address], , [place], [address], Provider Name:Betty Henderson Rebeca, 2020-12-06 2 01:00:00 PM, [address] [place] [address], , [place], [address], Provider Name:Kandice Luis Miguel, 2020-03 2-15 01:00:00 PM, [address] [place] [address], , [place], [address], Insurance Providers Payer Name Payer Address Payer Phone Insured Name Patient Relati onship to Insured Coverage Start Date Coverage End Date MEDICAID [employer] [address] [facility] [id number] MYLES BLACKWELL self [facility] COMMUNITY PLAN [facility] [address] [facility] [id number] MYLES BLACKWELL self
--- OUTSIDE RECORDS SUMMARY | 2021-02-14 05:25 | CCD ---
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 Active confirmed 980367653 Problem Septic embolism I76 Active confirmed 4140 67253 Problem Rheumatoid arthritis with po sitive rheumatoid factor, involving unspecified site M05.9 Active confirmed 218977955 Problem 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 Active confirmed 56818494 Problem Aphthous ulcer K12.0 Active confirmed 07655 7000 Problem 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 Active confi rmed 95962790 Problem Gastroesophageal reflux disease, esophagitis pre sence not specified K21.9 Active confirmed 163003287 Problem Methicillin resistant Staphy lococcus aureus infection as the cause of diseases classified elsewhere B95.62 Active confirmed 202764318 Problem Lumbosacral radiculopathy due to degenerative chayo int disease of spine M47.27 Active confirmed 106619455 Problem MRSA (methicillin resistant staph aureus) culture positive Z22.322 Active confirmed 249738446 Problem Generalized anxiety disorder F41.1 Active confirme d 75355552 Problem Psoas muscle abscess K68.12 Active confirmed 470923060 Problem Primary osteoarthritis, 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 Active confirmed 924826422850083 Problem Other specified acute skin changes due to ultraviolet radiation L56.8 Active confirmed 83750272 Problem Gangrene of finger I96 Active confirmed 1 71083129 Problem Primary osteoarthritis, right hand M19.041 Activ e confirmed 08450281 Problem Bilious vomiting with nausea R11.14 Active confirme d 08023986 Problem Pneumonia due to infectious organism, unspecified laterality, unspecified part of lung J18.9 Active confirmed 97543 2009 Problem IV drug abuse F19.10 Active confirmed 475250 006 Problem Acrocyanosis I73.89 Active confirmed 0107410 6 Problem Surgical menopause, symptomatic E89.41 Active confi rmed 980707363 Problem Raynaud's disease without gangrene I73.00 Activ e confirmed 732758436 Problem Acute midline low back pain without sciatica M54.5 Active confirmed 114923249 Problem Epidural abscess, L2-L5 G06.1 Active confirmed 718918720 Problem Bronchitis J40 Active confirmed 41736072 Problem Rheumatoid arthritis involvi ng left hand with positive rheumatoid factor M05.742 Active confirmed 9112720292771773 Problem Swelling of finger of right hand M79.89 Active confirmed 26815670339673231 Problem Rheumatoid arthritis involvi ng multiple sites with positive rheumatoid factor M05.79 Active confirmed 397091190 ALLERGIES Allergen (clinical drug ingredient) Drug/Non Drug Allergy do cumented on EMR Reaction Allergy Type Onset Date Status Sulfasalazine Sulfa Antibiotics Hives Drug Allergy 05/01/2019 Ac tive Penicillin (For Allergies Use Only) Hives Drug Allerg y Active vancomycin Vancomycin HCl([facility] Code:[address]-92) Hives Drug All ergy 05/01/2019 Active sulfamethoxazole / trimethoprim Bactrim(ND Code:[address]-01) Hives Drug Allergy 05/01/2019 Active ENCOUNTERS from 1970 to 2020-12-31 Encounter Location Date Provider Diagnosis [facility] [place] [address] [facility] [phone] [place] [address] 12 Dec, 2020 Betty Jose Epidural abscess, L2 -L5 [...] School Language: Question Answer Notes Languages spoken: Malay Temple: Question Answer Notes Temple 08 [employer]ah'[employer] Sexual Hx: Question Answer Notes Had sex [...] FOR REFERRAL No Information VITAL SIGNS Weight 95 lbs Dec, Weight-kg 43.09 kg Dec, Height 59 in Dec, BMI 19.19 kg/m2 Dec, Heart Rate 91 /min Dec, Respiratory Rate 18 /min Dec, Temperature 98.3 degrees Fahrenheit Dec, Oximetry 99% Dec, Blood pressure systolic 104 mm Hg Dec, Blood pressure diastolic 62 mm Hg Dec, MEDICATIONS Medication SIG (Take, Route, Frequency, Duration) [...] Orally Once a day for 5 day(s) 1 Dec, Active Nitro-Bid 2 % as directed [...] Information RESULTS No Results REASON FOR VISIT 4 Weeks MEDICAL (GENERAL) HISTORY Type Description Date Medical [...] I&D done by Dr. 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 with epidural abscess measuring 7 x 2 x 19 mm with anterior epidural inflammatory changes from L3-L4 bilateral psoas abscess from L2-L5 Medical History transesophageal echocardiogr am with pediatric probe showed a tricuspid valve vegetation 0.4x 0.7 cm with moderate tricuspid regurgitation at [facility] Dr Estephanie Agosto Surgical History [...] Treatment Notes Treatm ent Clinical Notes Dec, Endocarditis of tricuspid valve (ICD-10 - I07.9) Transesophageal echocardiogram was done 01/10/2020 tricuspid valve vegetation measuring 0.4 x 0.7 cm consistent with healed old endocarditis. Patient had been clean for 3/months since 07/2020 ESR and CRP have been slightly elevated but blood cultures 09/24 x2 have been negative Dec, Epidural abscess, L2-L5 (ICD-10 - G06.1) Needs follow up with Dr Marino 12/12/2020 , abnormal MRI persistent findings needs reevaluation / hardware removal. Advised patient to call Dr. Marino's office for follow up appointment [facility] referral was made by her primary care provider Danya. Could not obtain prior authorization for MRI lumbar spine. Patient was advised to discontinue doxycycline She started using on her own after she injected mildly this weekend Dec, Rheumatoid arthritis involvi ng left hand with positive rheumatoid factor (ICD-10 - M05.742) She has appt with Dr. 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 She continues on Plaquenil and has been more compliant, she would like a 5-day course Toradol that she will use instead of Celebrex due to severe swelling of both hands and a 5-day course of prednisone was prescribed. Baseline labs will be obtained. Dec, Methicillin resistant Staphy lococcus aureus infection as the cause of diseases classified elsewhere (ICD-10 - B95.62) Patient had labs and blood cultures negative done , ESR normal bur CRP high . Dec, Iron deficiency anemia, unsp ecified iron deficiency anemia type (ICD-10 - D50.9) Normal iron studies not anemic Dec, History of hepatitis C (ICD-10 - Z86.19) Repeat hepatitis C quant RNA ordered and LFT to make sure she does not have reinfection. Dec, Encounter for immunization (ICD-10 - Z23) Dec, Lumbosacral radiculopathy du e to degenerative joint disease of spine (ICD-10 - M47.27) Patient unable to get MRI and and MRI LS spine due to insurance reasons. Dec, Small vessel vasculitis (ICD-10 - I77.6) Will arrange FU with Dr Vaughan had seen him before for vasculitis Dec, IV drug abuse (ICD-10 - F19.10) Relapse using IV heroin and tamy, overdosed and was sent to [facility] for rehabilitation for 28 days came home end of Dec, Gastrointestinal hemorrhage, unspecified gastrointestinal hemorrhage type (ICD-10 - K92.2) Patient will come up on Wednesday morning 4 days ago through a large amount of blood clots resolved after 24 hours. Patient is on a PPI. Has a history of peptic ulcer disease. She will be referred for gastroenterology Dec, Acrocyanosis (ICD-10 - I73.89) Dermatology and rheumatology both believe that her ischemic ulcers are related to Raynaud's phenomena and not vasculitis possibly also worsened by use of amphetamine Dec, Constipation due to pain medication (ICD-10 - [...] 30 minutes before morning meal Orally Daily Treatment Notes Assessment Notes Clinical Notes Endocarditis of tricuspid valve Transeso phageal echocardiogram was done 01/10/2020 tricuspid valve vegetation measuring 0.4 x 0.7 cm consistent with healed old endocarditis. Patient had been clean for 3/months since SR and CRP have been slightly elevated but blood cultures 09/24 x2 have been negative Epidural abscess, L2-L5 Needs follow up with Dr Marino 12/12/2020 , abnormal MRI persistent findings needs reevaluation / hardware removal. Advised patient to call Dr. Marino's office for follow up appointment [facility] referral was made by her primary care provider Danya. Could not obtain prior authorization for MRI lumbar spine.Patient was advised to discontinue doxycycline She started using on her own after she injected mildly this weekend Rheumatoid arthritis involving left hand with positive rheum atoid factor She has appt with Dr. 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 She continues on Plaquenil and has been more compliant, she would like a 5-day course Toradol that she will use instead of Celebrex due to severe swelling of both hands and a 5-day course of prednisone was prescribed. Baseline labs will be obtained. Methicillin resistant Staphylococcus aur eus infection as [...] and tamy, overdosed and was sent to [facility] for rehabilitation for 28 days came [...] possibly also worsened by use of amphetamine Treatment Notes Test Name Order Date BLOOD CULTURES 2020-12-17 ERYTHROCYTE SEDIMENTATION RATE 2020-12-17 Comprehensive Metabolic Profile (CMP) 2020-12-17 CBC with Differential 2020-12-17 C REACTIVE PROTEIN QUANTITATIV (At [facility]) 2020-12-17 Next Appt Details 6 Weeks Reason: Provider Name:Alaina Foster, 12:00:00 AM, [address] [place] [address], , [place], [address], Provider Name:Betty Jose, 2021-01-07 3 01:30:00 PM, [address] [place] [address] , [place], [address], Provider Name:Kandice Bolanos, 2020-03 2 01:00:00 PM, [address] [place] [address] , [place], [address], Insurance Providers Payer Name Payer Address Payer Phone Insured Name Patient Relati onship to Insured Coverage Start Date Coverage End Date [facility] COMM[facility] [address] [facility] [address] MYLES BLACKWELL self MEDICAID [employer] [address] [facility] [id number] MYLES BLACKWELL self
--- OUTSIDE RECORDS SUMMARY | 2021-02-14 05:25 | CCD ---
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 Active confirmed 865553113 Problem Septic embolism I76 Active confirmed 4140 30449 Problem Rheumatoid arthritis with po sitive rheumatoid factor, involving unspecified site M05.9 Active confirmed 145959771 Problem 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 Active confirmed 11483344 Problem Aphthous ulcer K12.0 Active confirmed 39910 7000 Problem 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 Active confi rmed 86409613 Problem Gastroesophageal reflux disease, esophagitis pre sence not specified K21.9 Active confirmed 237346822 Problem Methicillin resistant Staphy lococcus aureus infection as the cause of diseases classified elsewhere B95.62 Active confirmed 968229754 Problem Lumbosacral radiculopathy due to degenerative chayo int disease of spine M47.27 Active confirmed 014988326 Problem MRSA (methicillin resistant staph aureus) culture positive Z22.322 Active confirmed 231742943 Problem Generalized anxiety disorder F41.1 Active confirme d 18285370 Problem Psoas muscle abscess K68.12 Active confirmed 028259560 Problem Primary osteoarthritis, 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 Active confirmed 714354137746066 Problem Other specified acute skin changes due to ultraviolet radiation L56.8 Active confirmed 21406036 Problem Gangrene of finger I96 Active confirmed 1 85539067 Problem Primary osteoarthritis, right hand M19.041 Activ e confirmed 02676751 Problem Bilious vomiting with nausea R11.14 Active confirme d 91313414 Problem Pneumonia due to infectious organism, unspecified laterality, unspecified part of lung J18.9 Active confirmed 12624 2009 Problem IV drug abuse F19.10 Active confirmed 342177 006 Problem Acrocyanosis I73.89 Active confirmed 9684914 6 Problem Surgical menopause, symptomatic E89.41 Active confi rmed 448808439 Problem Raynaud's disease without gangrene I73.00 Activ e confirmed 211853316 Problem Acute midline low back pain without sciatica M54.5 Active confirmed 605057381 Problem Epidural abscess, L2-L5 G06.1 Active confirmed 848814858 Problem Bronchitis J40 Active confirmed 65416840 Problem Rheumatoid arthritis involvi ng left hand with positive rheumatoid factor M05.742 Active confirmed 2089576249667910 Problem Swelling of finger of right hand M79.89 Active confirmed 49785978494987192 Problem Rheumatoid arthritis involvi ng multiple sites with positive rheumatoid factor M05.79 Active confirmed 406477622 ALLERGIES Allergen (clinical drug ingredient) Drug/Non Drug Allergy do cumented on EMR Reaction Allergy Type Onset Date Status Sulfa (for allergy use only) Hives Drug Allergy 2019 Active Penicillin (For Allergies Use Only) Hives Drug Allerg y Active vancomycin Vancomycin HCl(ND Code:[address]-57) Hives Drug All ergy 05/01/2019 Active sulfamethoxazole / trimethoprim Bactrim(NDC Code:[address]-78) Hives Drug Allergy 05/01/2019 Active ENCOUNTERS from 1970 to 2020-12-10 Encounter Location Date Provider Diagnosis [facility] Rheumatology [address] [place] [address] [place] [address] Dec, Alaina Foster IMMUNIZATIONS Vaccine Route Administration [...] School Language: Question Answer Notes Languages spoken: Kinyarwanda Islam: Question Answer Notes Islam 08 Orthodoxy Sexual Hx: Question Answer Notes [...] Information RESULTS No Results REASON FOR VISIT R/S 12/11/2020 appt MEDICAL (GENERAL) HISTORY Type Description Date [...] I&D done by Dr. Ricardo Marino at [facility] MRI 06/26/19 with disc vertebral osteomyelitis [...] days Next Appt Details Provider Name:Alaina Foster, 2020-- 10:45:00 AM, [address] [place] [address], , [place], [address], Provider Name:Betty Jose, 2020-12-06 2 01:00:00 PM, [address] [place] [address], , [place], [address], Provider Name:Kandice Bolanos, 2020-03-15 01:00:00 PM, [address] [place] [address], , [place], [address], Insurance Providers Payer Name Payer Address Payer Phone Insured Name Patient Relati onship to Insured Coverage Start Date Coverage End Date [facility] [address] [facility] [phone] MYLES BLACKWELL self [facility]ICAID [facility] [address] [facility] [id number] MYLES BLACKWELL self
--- OUTSIDE RECORDS SUMMARY | 2021-02-14 05:25 | CCD ---
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 Active confirmed 853352934 Problem Septic embolism I76 Active confirmed 4140 34633 Problem Rheumatoid arthritis with po sitive rheumatoid factor, involving unspecified site M05.9 Active confirmed 015716704 Problem 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 Active confirmed 98404878 Problem Aphthous ulcer K12.0 Active confirmed 96224 7000 Problem 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 Active confi rmed 76680575 Problem Gastroesophageal reflux disease, esophagitis pre sence not specified K21.9 Active confirmed 819910479 Problem Methicillin resistant Staphy lococcus aureus infection as the cause of diseases classified elsewhere B95.62 Active confirmed 674155291 Problem Lumbosacral radiculopathy due to degenerative chayo int disease of spine M47.27 Active confirmed 628751835 Problem MRSA (methicillin resistant staph aureus) culture positive Z22.322 Active confirmed 057774619 Problem Generalized anxiety disorder F41.1 Active confirme d 28521183 Problem Psoas muscle abscess K68.12 Active confirmed 701748615 Problem Primary osteoarthritis, 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 Active confirmed 289881254712561 Problem Other specified acute skin changes due to ultraviolet radiation L56.8 Active confirmed 08929639 Problem Gangrene of finger I96 Active confirmed 1 41132612 Problem Primary osteoarthritis, right hand M19.041 Activ e confirmed 56260968 Problem Bilious vomiting with nausea R11.14 Active confirme d 74406546 Problem Pneumonia due to infectious organism, unspecified laterality, unspecified part of lung J18.9 Active confirmed 13294 2009 Problem IV drug abuse F19.10 Active confirmed 784160 006 Problem Acrocyanosis I73.89 Active confirmed 4112289 6 Problem Surgical menopause, symptomatic E89.41 Active confi rmed 481194181 Problem Raynaud's disease without gangrene I73.00 Activ e confirmed 270928522 Problem Acute midline low back pain without sciatica M54.5 Active confirmed 322261422 Problem Epidural abscess, L2-L5 G06.1 Active confirmed 178907025 Problem Bronchitis J40 Active confirmed 57634980 Problem Rheumatoid arthritis involvi ng left hand with positive rheumatoid factor M05.742 Active confirmed 3385768093640817 Problem Swelling of finger of right hand M79.89 Active confirmed 57357085195964827 Problem Rheumatoid arthritis involvi ng multiple sites with positive rheumatoid factor M05.79 Active confirmed 754437611 ALLERGIES Allergen (clinical drug ingredient) Drug/Non Drug Allergy do cumented on EMR Reaction Allergy Type Onset Date Status Sulfa (for allergy use only) Hives Drug Allergy 2019 Active Penicillin (For Allergies Use Only) Hives Drug Allerg y Active vancomycin Vancomycin HCl(ND Code:[address]-86) Hives Drug All ergy 05/01/2019 Active sulfamethoxazole / trimethoprim Bactrim(NDC Code:[address]-51) Hives Drug Allergy 05/01/2019 Active ENCOUNTERS from 1970 to 2020-11-29 Encounter Location Date Provider Diagnosis [facility] Rheumatology [address] [place] [address] [place] [address] Nov, Alaina Foster IMMUNIZATIONS Vaccine Route Administration Date [...] School Language: Question Answer Notes Languages spoken: Yoruba Latter-Day: Question Answer Notes Latter-Day 08 Taoism Sexual Hx: Question Answer Notes [...] Information RESULTS No Results REASON FOR VISIT Prednisone Refill MEDICAL (GENERAL) HISTORY Type Description Date Medical [...] I&D done by Dr. Ricardo Marino at [facility] MRI 06/26/19 with disc vertebral [...] days Next Appt Details Provider Name:Alaina Foster, 1-10- 06 01:00:00 PM, [address] [place] [address], , [place], [address], Provider Name:Betty Jose, 2020-12-06 2 01:00:00 PM, [address] [place] [address], , [place], [address], Provider Name:Kandice Shelleychad, 2020-03 2-15 01:00:00 PM, [address] [place] [address], , [place], [address], Insurance Providers Payer Name Payer Address Payer Phone Insured Name Patient Relati onship to Insured Coverage Start Date Coverage End Date [facility] [address] [facility] [phone] MYLES BLACKWELL self MEDICAID [facility] [address] [facility] [id number] MYLES BLACKWELL self
--- OUTSIDE RECORDS SUMMARY | 2021-02-14 05:27 | CCD ---
Author Author [facility] Organization [facility] Address Unknown Phone Unavailable Support Name Relationship Address Phone NO EMERGENCY, CONTACT Next Of Kin [address] [address] [address] [place] [address] NO, CONTACT EMERGENCY Next Of Kin [address] [address] NO, CONTACT Next Of Kin Unknown Unavailable NO EMERGANCY, CONTACT Next Of Kin [address] [place] [address] Estella DOTY Next Of Kin [address] [place] [address] JOVON DELACRUZ Next Of Kin [address] [place] [address] [facility] KARMA Next Of Kin [address] [place] [address] [place] [address] NONE, PATIENT PER Next Of Kin - -, - - - [place] Next Of Kin [address] [place] [address] CONTACT, OTHER NO Next Of Kin - - -, [place] - - DISABLED Next Of Kin Unknown Unavailable ZEESHAN HODGSON Next Of Kin [address] [place], [place] [id number] UE Next Of Kin Unknown Unavailable MILES BELLAMY Next Of Kin [address] [facility] [address] [place] [address] Shayy DOTY Next Of Kin [address] [place] [address] Jovon Delacruz ECON [address] [facility] 1 [place] [address] Unavailable Yas Bellamy Unknown Unavailable Care Team Providers 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 Role Phone [facility], [facility] [place] Unavailable Unavailable Estella Casillas MD Unavailable Unavailable [...] Unavailable Unavailable Estella Casillas MD Unavailable Unavailable Harsh Umana MD Unavailable Unavailable Harsh Umana MD Unavailable Unavailable Harsh Umana MD Unavailable Unavailable Harsh Umana MD Unavailable Unavailable Harsh Umana MD Unavailable Unavailable Harsh Umana MD Unavailable Unavailable Ole Potter MD Unavailable Unavailable Ole Potter MD Unavailable Unavailable Ole Potter MD Unavailable Unavailable Ole Potter MD Unavailable Unavailable Ole Potter MD Unavailable Unavailable MollOle vo MD Unavailable Unavailable MollisonOle MD Unavailable Unavailable MollisonOle MD Unavailable Unavailable MollisonOle MD Unavailable Unavailable MollisonOle MD Unavailable Unavailable MollisonOle MD Unavailable Unavailable MollisonOle MD Unavailable Unavailable MollisonOle MD Unavailable Unavailable Ole Potter MD Unavailable Unavailable MollisonOle MD Unavailable Unavailable MollisonOle MD Unavailable Unavailable MollisonOle MD Unavailable Unavailable MollisonOle MD Unavailable Unavailable MollisonOle MD Unavailable Unavailable MollisonOle MD Unavailable Unavailable MollisonOle MD Unavailable Unavailable MollisonOle MD Unavailable Unavailable MollisonOle MD Unavailable Unavailable MollisonOle MD Unavailable Unavailable MollisonOle MD Unavailable Unavailable MollisonOle MD Unavailable Unavailable MollisonOle MD Unavailable Unavailable MollisonOle MD Unavailable Unavailable Ole Potter MD Unavailable Unavailable Ole Potter MD Unavailable Unavailable Ole Potter MD Unavailable Unavailable Beatriz Jose MD Unavailable [...] Unavailable Unavailable Beatriz Jose MD Unavailable Unavailable Betariz Jose MD Unavailable Unavailable Beatriz Jose MD [...] Unavailable Unavailable Beatriz Jose MD Unavailable Unavailable TURRIN, RINA Unavailable Unavailable TURRIN, RINA Unavailable Unavailable TURRIN, RINA Unavailable Unavailable TURRIN, RINA Unavailable Unavailable Andra DAVIS MD Unavailable Unavailable Andra DAVIS MD Unavailable Unavailable Andra DAVIS MD Unavailable Unavailable Andra DAVIS MD Unavailable Unavailable Andra DAVIS MD Unavailable Unavailable Andra DAVIS MD Unavailable Unavailable Andra DAVIS MD Unavailable Unavailable Andra DAVIS MD Unavailable Unavailable Andra DAVIS MD Unavailable Unavailable Andra DAVIS MD Unavailable Unavailable Andra DAVIS MD Unavailable Unavailable Andra DAVIS MD Unavailable Unavailable Andra DAVIS MD Unavailable Unavailable Andra DAVIS MD Unavailable Unavailable Andra DAVIS MD Unavailable Unavailable Andra DAVIS MD Unavailable Unavailable Andra DAVIS MD Unavailable Unavailable Andra DAVIS MD Unavailable Unavailable Andra DAVIS MD Unavailable Unavailable Andra DAVIS MD Unavailable Unavailable Andra DAVIS MD Unavailable Unavailable Andra DAVIS MD Unavailable Unavailable Andra DAVIS MD Unavailable Unavailable Andra DAVIS MD Unavailable Unavailable Andra DAVIS MD Unavailable Unavailable Andra DAVIS MD Unavailable Unavailable Andra DAVIS MD Unavailable Unavailable SUSAN, Andra SOLIS MD [...] Unavailable SUSAN, Andra SOLIS MD Unavailable Unavailable USSAN, Andra SOLIS MD Unavailable Unavailable SUSAN, Andra [...] Andra SOLIS MD Unavailable Unavailable SUSAN, Andra OSLIS MD Unavailable Unavailable SUSAN, Andra SOLIS MD Unavailable Unavailable SUSAN, Andra SOLIS MD Unavailable Unavailable Andra DAVIS MD Unavailable Unavailable Andra DAVIS MD Unavailable Unavailable Andra DAVIS MD Unavailable Unavailable Andra DAVIS MD Unavailable Unavailable Andra DAVIS MD Unavailable Unavailable Andra DAVIS MD Unavailable Unavailable Andra DAVIS MD Unavailable Unavailable Andra DAVIS MD Unavailable Unavailable Andra DAVIS MD Unavailable Unavailable Andra DAVIS MD Unavailable Unavailable Andra DAVIS MD Unavailable Unavailable Soosairaj, Kandice Unavailable Unavailable Soosairaj, Kandice Unavailable Unavailable Soosairaj, Kandice Unavailable Unavailable Soosairaj, Kandice Unavailable Unavailable Soosairaj, Kandice Unavailable Unavailable Soosairaj, Kandice Unavailable Unavailable Soosairaj, Kandice Unavailable Unavailable Soosairaj, Kandice Unavailable Unavailable Soosairaj, Kandice Unavailable Unavailable Soosairaj, Kandice Unavailable Unavailable Soosairaj, Kandice Unavailable Unavailable Soosairaj, Kandice Unavailable Unavailable Soosairaj, Kandice Unavailable Unavailable Soosairaj, Kandice Unavailable Unavailable Soosairaj, Kandice Unavailable Unavailable Soosairaj, Kandice Unavailable Unavailable Soosairaj, Kandice Unavailable Unavailable Soosairaj, Kandice Unavailable Unavailable Soosairaj, Kandice Unavailable Unavailable Soosairaj, Kandice Unavailable Unavailable Soosairaj, Kandice Unavailable Unavailable Soosairaj, Kandice Unavailable Unavailable Soosairaj, Kandice Unavailable Unavailable Soosairaj, Kandice Unavailable Unavailable Soosairaj, Kandice Unavailable Unavailable Soosairaj, Kandice Unavailable Unavailable Soosairaj, Kandice Unavailable Unavailable Soosairaj, Kandice Unavailable Unavailable Soosairaj, Kandice Unavailable Unavailable Soosairaj, Kandice Unavailable Unavailable Soosairaj, Kandice Unavailable Unavailable Soosairaj, Kandice Unavailable Unavailable Soosairaj, Kandice Unavailable Unavailable Beatriz Jose MD Unavailable Unavailable [...] Unavailable Unavailable Beatriz Jose MD Unavailable Unavailable Yvonne VALE MD Unavailable Unavailable Yvonne VALE MD Unavailable Unavailable Yvonne VALE MD Unavailable Unavailable CHANLIECCO, C CLAY MD Unavailable Unavailable CHANLIECCO, C CLAY MD Unavailable Unavailable CHANLIECCO, C CLAY MD Unavailable Unavailable CHANLIECCO, C CLAY MD Unavailable Unavailable CHANLIECCO, C CLAY MD Unavailable Unavailable CHANLIECCO, C CLAY MD Unavailable Unavailable CHANLIECCO, C CLAY MD Unavailable Unavailable CHANLIECCO, C CLAY MD Unavailable Unavailable Demetrice Gilliam MD Unavailable Unavailable Demetrice iGlliam MD Unavailable Unavailable Demetrice Gilliam MD Unavailable [...] Unavailable Unavailable Demetrice Gilliam MD Unavailable Unavailable Re-disclosure Warning The records [...] is protected by Article 27-F of the [facility] Public Health law. If you continue you may have access to information: Regarding HIV / AIDS; Provided by facilities licensed or operated by the [facility] Office of Mental Health; or Provided by the [facility] Office for People With Developmental Disabilities. If such information is present, then the following [facility] mandated warning applies: This information has been [...] law may result in a fine or snf sentence or both. A general authorization for the release of medical or other information is NOT sufficient authorization for further disc losure. Encounters Encounter Providers Location Date Indications Data Source(s ) Outpatient Attender: IRMA Mccrayerramanda: Kandice martinez 02/20/2021 12:00:00 AM EST [facility] Unknown [address] [facility] [address] 01/29/2021 12:00:00 AM EST eCW1 ([facility]) [place] [address] [facility] [address] 01/28/2021 12:00:00 AM EST eCW1 ([facility]) [place] [address] [facility] [place] [address] 01/28/2021 12:00:00 AM EST eCW1 ([facility]) [place] [address] [facility] [address] 01/22/2021 12:00:00 AM EST [facility] ([facility]) [place] [address] [facility] [address] 01/20/2021 12:00:00 AM EST eCW1 ([facility]) [place] [address] [facility] [address] 01/17/2021 12:00:00 AM EST eCW1 ([facility]) [place] [address] [facility] [address] 12/31/2020 12:00:00 AM EDT eCW1 ([facility]) [place] [address] [facility] [address] 12/30/2020 12:00:00 AM EDT eCW1 ([facility]) Out[place] [address] [facility] [address] 12/17/2020 12:00:00 AM EDT eCW1 ([facility]) Outpatient Attender: IRMA DAVIS MD 12/12/2020 12:00:0 0 AM [facility] Unknown [address] [facility] [address] 12/10/2020 12:00:00 AM EDT eCW1 ([facility]) [place] [address] [facility] [address] 12/06/2020 12:00:00 AM EDT eCW1 ([facility]) [place] [address] [facility] [address] 12/06/2020 12:00:00 AM EDT eCW1 ([facility]) [place] [address] [facility] [address] 12/05/2020 12:00:00 AM EDT eCW1 ([facility]) Unknown [address] [facility] [address] 12/05/2020 12:00:00 AM EDT eCW1 ([facility]) Unknown [address] [facility] [address] 11/27/2020 12:00:00 AM EDT eCW1 ([facility]) Unknown [address] [facility] [address] 11/27/2020 12:00:00 AM EDT eCW1 ([facility]) Unknown [address] [facility] [address] 11/27/2020 12:00:00 AM EDT eCW1 ([facility]) Out[place] [address] [facility] [address] 11/21/2020 12:00:00 AM EDT eCW1 ([facility]) Unknown [address] [facility] [address] 11/21/2020 12:00:00 AM EDT eCW1 ([facility]) Unknown [address] [facility] [address] 11/15/2020 12:00:00 AM EDT eCW1 ([facility]) Unknown [address] [facility] [address] 11/14/2020 12:00:00 AM EDT eCW1 ([facility]) Emergency Attender: Harsh Umana MD 11/06/2020 12:39:00 AM EDT - 11/06/2020 01:20:00 AM EDT [facility] Patient discharged. Unknown [address] [facility] [address] 11/05/2020 12:00:00 AM EDT eCW1 ([facility]) Unknown [address] [facility] [address] 11/01/2020 12:00:00 AM EDT eCW1 ([facility]) Unknown [address] [facility] [address] 11/01/2020 12:00:00 AM EDT eCW1 ([facility]) [place] [address] [facility] [address] 10/28/2020 12:00:00 AM EDT eCW1 ([facility]) Unknown [address] [facility] [address] 10/28/2020 12:00:00 AM EDT eCW1 ([facility]) Unknown [address] [facility] [address] 10/28/2020 12:00:00 AM EDT eCW1 ([facility]) Outpatient [address] [facility] [address] 10/24/2020 12:00:00 AM EDT eCW1 ([facility]) Unknown [address] [facility] [address] 10/24/2020 12:00:00 AM EDT eCW1 ([facility]) Unknown [address] [facility] [address] 10/08/2020 12:00:00 AM EDT eCW1 ([facility]) Unknown [address] [facility] [address] 10/07/2020 12:00:00 AM EDT eCW1 ([facility]) [place] [address] [facility] [address] 09/30/2020 12:00:00 AM EDT eCW1 ([facility]) [place] [address] [facility] [address] 09/26/2020 12:00:00 AM EDT eCW1 ([facility]) Unknown [address] [facility] [address] 09/26/2020 12:00:00 AM EDT eCW1 ([facility]) Unknown [address] [facility] [address] 09/24/2020 12:00:00 AM EDT eCW1 ([facility]) [place] [address] [facility] [address] 09/20/2020 12:00:00 AM EDT eCW1 ([facility]) Out[place] [address] [facility] [address] 09/19/2020 12:00:00 AM EDT eCW1 ([facility]) [place] [address] [facility] [address] 09/17/2020 12:00:00 AM EDT eCW1 ([facility]) Unknown [address] [facility] [address] 09/17/2020 12:00:00 AM EDT eCW1 ([facility]) Outpatient [address] [facility] [address] 09/11/2020 12:00:00 AM EDT eCW1 ([facility]) [place] [address] [facility] [address] 09/03/2020 12:00:00 AM EDT eCW1 ([facility]) Unknown [address] [facility] [address] 09/02/2020 12:00:00 AM EDT eCW1 ([facility]) Unknown [address] [facility] [address] 09/02/2020 12:00:00 AM EDT eCW1 ([facility]) Outpatient [address] [facility] [place] [address] 08/27/2020 12:00:00 AM EDT eCW1 ([facility]) Unknown [address] [facility] [place] [address] 08/23/2020 12:00:00 AM EDT eCW1 ([facility]) Out[place] [address] [facility] [address] 08/21/2020 12:00:00 AM EDT eCW1 ([facility]) Unknown [address] [facility] [address] 08/20/2020 12:00:00 AM EDT eCW1 ([facility]) Outpatient [address] [facility] [address] 08/15/2020 12:00:00 AM EDT eCW1 ([facility]) Unknown [address] [facility] [place] [address] 08/09/2020 12:00:00 AM EDT eCW1 ([facility]) Unknown [address] [facility] [place] [address] 08/08/2020 12:00:00 AM EDT eCW1 ([facility]) Outpatient [address] [facility] [address] 08/07/2020 12:00:00 AM EDT eCW1 ([facility]) Unknown [address] [facility] [place] [address] 08/06/2020 12:00:00 AM EDT eCW1 ([facility]) Unknown [address] [facility] [place] [address] 08/01/2020 12:00:00 AM EDT eCW1 ([facility]) Unknown [address] [facility] [place] [address] 07/26/2020 12:00:00 AM EDT eCW1 ([facility]) Outpatient [address] [facility] [address] 07/25/2020 12:00:00 AM EDT eCW1 ([facility]) Unknown [address] [facility] [address] 07/19/2020 12:00:00 AM EDT eCW1 ([facility]) Unknown [address] [facility] [address] 07/18/2020 12:00:00 AM EDT eCW1 ([facility]) Unknown [address] [facility] [place] [address] 07/18/2020 12:00:00 AM EDT eCW1 ([facility]) Outpatient [address] [facility] [address] 07/15/2020 12:00:00 AM EDT eCW1 ([facility]) Unknown [address] [facility] [address] 07/05/2020 12:00:00 AM EDT eCW1 ([facility]) Unknown [address] [facility] [address] 07/05/2020 12:00:00 AM EDT eCW1 ([facility]) Unknown [address] [facility] [place] [address] 07/04/2020 12:00:00 AM EDT eCW1 ([facility]) Unknown [address] [facility] [place] [address] 07/04/2020 12:00:00 AM EDT eCW1 ([facility]) Emergency Attender: RINA MARKS 2020 12:48:00 PM EDT - 07/03/2020 02:00:00 PM EDT [facility] Patient discharged. [place] [address] [facility] [address] 07/03/2020 12:00:00 AM EDT eCW1 ([facility]) Unknown [address] [facility] [address] 07/03/2020 12:00:00 AM EDT eCW1 ([facility]) Unknown [address] [facility] [address] 07/03/2020 12:00:00 AM EDT eCW1 ([facility]) Outpatient [address] [facility] [place] [address] 07/02/2020 12:00:00 AM EDT eCW1 ([facility]) Outpatient Attender: Walker Saba/Mago/Zaid/Maddy luna 06/28/2020 02:30:00 PM EDT [facility] ([facility]) [place] [address] [facility] [address] 06/27/2020 12:00:00 AM EDT eCW1 ([facility]) Outpatient [address] [facility] [address] 06/26/2020 12:00:00 AM EDT eCW1 ([facility]) Unknown [address] [facility] [place] [address] 06/20/2020 12:00:00 AM EDT eCW1 ([facility]) Outpatient [address] [facility] [place] [address] 06/17/2020 12:00:00 AM EDT eCW1 ([facility]) Unknown [address] [facility] [place] [address] 05/21/2020 12:00:00 AM EDT eCW1 ([facility]) Unknown [address] [facility] [place] [address] 05/17/2020 12:00:00 AM EST eCW1 ([facility]) [place] [address] [facility] [place] [address] 05/09/2020 12:00:00 AM EST eCW1 ([facility]) Outpatient Attender: IRMA DAVIS MD 05/07/2020 12:00:0 0 AM [facility] Unknown [address] [facility] [address] 05/03/2020 12:00:00 AM EST eCW1 ([facility]) Unknown [address] [facility] [address] 04/30/2020 12:00:00 AM EST eCW1 ([facility]) Outpatient Attender: [facility] 04/28/2020 04:1 8:00 PM EST [facility] Emergency Attender: CLAY VALE MD 04/28/2020 04:02:00 PM EST - 04/28/2020 08:13:00 PM EST [facility] Patient discharged. Outpatient Attender: IRMA DAVIS MD [id number] 04/25/2020 1 2:00:00 AM EST Osteomyelitis of vertebra, lumbar region [facility] Osteomyelitis of vertebra, lumbar region Outpatient Attender: IRMA DAVIS MD 04/25/2020 12:00:0 0 AM [facility] Outpatient Attender: IRMA DAVIS MD 04/25/2020 12:00:0 0 AM [facility] Unknown [address] [facility] [address] 03/26/2020 12:00:00 AM EST eCW1 ([facility]) Outpatient [address] [facility] [place] [address] 03/21/2020 12:00:00 AM EST eCW1 ([facility]) Unknown [address] [facility] [place] [address] 03/21/2020 12:00:00 AM EST eCW1 ([facility]) Outpatient Attender: IRMA DAVIS MD [id number] 03/18/2020 1 2:00:00 AM [facility] Unknown [address] [facility] [address] 03/18/2020 12:00:00 AM EST eCW1 ([facility]) Unknown [address] [facility] [place] [address] 03/13/2020 12:00:00 AM EST eCW1 ([facility]) Unknown [address] [facility] [place] [address] 03/13/2020 12:00:00 AM EST eCW1 ([facility]) Outpatient [address] [facility] [place] [address] 03/12/2020 12:00:00 AM EST eCW1 ([facility]) Unknown [address] [facility] [place] [address] 03/05/2020 12:00:00 AM EST eCW1 ([facility]) Unknown [address] [facility] [address] 02/26/2020 12:00:00 AM EST eCW1 ([facility]) Outpatient Attender: Betty Jose MD 02/20 02:14:26 PM EST - 02/21/2020 09:06:00 AM EST [facility] Patient discharged. Outpatient Attender: Betty Jose MD 02/20/2020 10:56:00 AM EST B95.52 [facility] B95.52 Outpatient Attender: Betty Jose MD 02/19 10:34:00 AM EST - 02/20/2020 11:34:00 AM EST [facility] TeleMedicine Est. Pt. Level 3 [address] [place] [address] 02/20/2020 12:00:00 AM EST [facility] Unknown [address] [facility] [address] 02/20/2020 12:00:00 AM EST [facility] Unknown [address] [facility] [address] 02/19/2020 12:00:00 AM EST [facility]CW1 [facility] Unknown [address] [facility] [address] 02/14/2020 12:00:00 AM EST [facility]CW1 [facility] Unknown [address] [facility] [address] 02/06/2020 12:00:00 AM EST [facility]CW1 [facility] H Attender: Demetrice Gilliam MDAdmitter: Demetrice Gilliam MD E S1-[id number] 01/10/2020 07:49:00 AM EST - 01/10/2020 10:57:00 AM EST [facility] Patient discharged. Outpatient Referrer: Rosa Casillas MD [email or web address].PAT 1 03/10/2019 02:31:48 PM EST - 01/09/2020 02:31:52 PM EST [facility] Outpatient [address] [facility] [address] 01/02/2020 12:00:00 AM EDT eCW1 [facility] Unknown [address] [facility] [address] 01/02/2020 12:00:00 AM EDT [facility]CW1 [facility] [place] [address] [facility] [place] [address] 12/26/2019 12:00:00 AM EDT eCW1 ([facility]) Unknown [address] [facility] [place] [address] 12/22/2019 12:00:00 AM EDT eCW1 ([facility]) Unknown [address] [facility] [place] [address] 12/22/2019 12:00:00 AM EDT eCW1 ([facility]) Outpatient [address] [facility] [place] [address] 12/21/2019 12:00:00 AM EDT eCW1 ([facility]) Unknown [address] [facility] [place] [address] 12/21/2019 12:00:00 AM EDT eCW1 ([facility]) Outpatient Attender: Rosa Casillas MDAdmitter: Rosa Casillas MD [email or web address] 12/19/2019 01:33:42 PM EDT [facility] Immunizations Vaccine Date Status Description Data Source(s) COVID-19 VACCINE Moderna 01/09/2021 12:00:00 AM EDT completed [facility] Vaccine Series Complete: YESThis Data wa s Submitted to [facility] Via [employer]. COVID-19 VACCINE Moderna 12/04/2020 12:00:00 AM EDT completed [facility] Vaccine Series Complete: NOThis Data was Submitted to [facility] Via [employer]. influenza, recombinant, quadrIvalent,injectable, prese rvative free 11/21/2020 01:51:00 PM EDT completed eCW1 ([facility]) influenza, recombinant, quadrIvalent,injectable, prese rvative free 11/21/2020 01:51:00 PM EDT completed eCW1 ([facility]) influenza, recombinant, quadrIvalent,injectable, prese rvative free 11/21/2020 01:51:00 PM EDT completed eCW1 ([facility]) influenza, recombinant, quadrIvalent,injectable, prese rvative free 11/21/2020 01:51:00 PM EDT completed eCW1 ([facility]) influenza, recombinant, quadrIvalent,injectable, prese rvative free 11/21/2020 01:51:00 PM EDT completed eCW1 ([facility]) influenza, recombinant, quadrIvalent,injectable, prese rvative free 11/21/2020 01:51:00 PM EDT completed eCW1 ([facility]) influenza, recombinant, quadrIvalent,injectable, prese rvative free 11/21/2020 01:51:00 PM EDT completed eCW1 ([facility]) influenza, recombinant, quadrIvalent,injectable, prese rvative free 11/21/2020 01:51:00 PM EDT completed eCW1 ([facility]) influenza, recombinant, quadrIvalent,injectable, prese rvative free 11/21/2020 01:51:00 PM EDT completed eCW1 ([facility]) influenza, recombinant, quadrIvalent,injectable, prese rvative free 11/21/2020 01:51:00 PM EDT completed eCW1 ([facility]) influenza, recombinant, quadrIvalent,injectable, prese rvative free 11/21/2020 01:51:00 PM EDT completed eCW1 ([facility]) influenza, recombinant, quadrIvalent,injectable, prese rvative free 11/21/2020 01:51:00 PM EDT completed eCW1 ([facility]) influenza, recombinant, quadrIvalent,injectable, prese rvative free 11/21/2020 01:51:00 PM EDT completed eCW1 ([facility]) influenza, recombinant, quadrIvalent,injectable, prese rvative free 11/21/2020 01:51:00 PM EDT completed eCW1 ([facility]) influenza, recombinant, quadrIvalent,injectable, prese rvative free 11/21/2020 01:51:00 PM EDT completed eCW1 ([facility]) influenza, recombinant, quadrIvalent,injectable, prese rvative free 11/21/2020 01:51:00 PM EDT completed eCW1 ([facility]) influenza, recombinant, quadrIvalent,injectable, prese rvative free 11/21/2020 01:51:00 PM EDT completed eCW1 ([facility]) influenza, recombinant, quadrIvalent,injectable, prese rvative free 11/21/2020 01:51:00 PM EDT completed eCW1 ([facility]) influenza, recombinant, quadrIvalent,injectable, prese rvative free 11/21/2020 01:51:00 PM EDT completed eCW1 ([facility]) influenza, recombinant, quadrIvalent,injectable, prese rvative free 11/21/2020 01:51:00 PM EDT completed eCW1 ([facility]) influenza, recombinant, quadrIvalent,injectable, prese rvative free 11/21/2020 01:51:00 PM EDT completed eCW1 ([facility]) influenza, recombinant, quadrIvalent,injectable, prese rvative free 11/21/2020 01:51:00 PM EDT completed eCW1 ([facility]) Medications Medication Brand Name Start Date Product Form Dose Route Admi nistrative Instructions Pharmacy Instructions Status Indications Reaction Description Data Source(s) 8-2 mg 02/11/2021 12:00:00 AM EST tablet, sublingual [address] PLACE ONE TABLET UNDER THE TONGUE TWICE A DAY , MAXIMUM DAILY DOSE = 2 PLACE ONE TABLET UNDER THE TONGUE TWICE A DAY , MAXIMUM DAILY DOSE = 2 SOLD: 02/11/2021 [facility] Prednisone 10 MG Oral Tablet predniSONE 10 MG predniSONE 10 MG 01/07/2021 12:00:00 AM EDT active predniSO NE 10 MG eCW1 ([facility]) Prednisone 10 MG Oral Tablet predniSONE 10 MG predniSONE 10 MG 01/07/2021 12:00:00 AM EDT active predniSO NE 10 MG eCW1 ([facility]) 10 mg 01/07/2021 12:00:00 AM EDT tablet 40 TAKE TWO TABLETS BY MOUTH EVERY MORNING FOR 10 DAYS THEN DECREASE TO 1 TABLET DAILY TAKE TWO TABLETS BY MOUTH EVERY MORNING FOR 10 DAYS THEN DECREASE TO 1 TABLET DAILY SOLD: 01/08/2021 [facility] Prednisone 10 MG Oral Tablet predniSONE 10 MG predniSONE 10 MG 01/07/2021 12:00:00 AM EDT active predniSO NE 10 MG eCW1 ([facility]) Prednisone 10 MG Oral Tablet predniSONE 10 MG predniSONE 10 MG 01/07/2021 12:00:00 AM EDT active predniSO NE 10 MG eCW1 ([facility]) Prednisone 10 MG Oral Tablet predniSONE 10 MG predniSONE 10 MG 01/07/2021 12:00:00 AM EDT active predniSO NE 10 MG eCW1 ([facility]) Hydroxychloroquine Sulfate 200 MG Oral Tablet HYDROXYCHLOROQ UINE SULFATE 01/07/2021 12:00:00 AM EDT tablet 90 TAKE ONE TABLE T BY MOUTH EVERY DAY TAKE ONE TABLET BY MOUTH EVERY DAY SOLD: 01/08/2021 [facility] Prednisone 10 MG Oral Tablet predniSONE 10 MG predniSONE 10 MG 01/07/2021 12:00:00 AM EDT active e CW1 ([facility]) Prednisone 20 MG Oral Tablet predniSONE 20 MG predniSONE 20 MG 12/17/2020 12:00:00 AM EDT 1.0 {tablet} active pr edniSONE 20 MG eCW1 ([facility]) Prednisone 20 MG Oral Tablet predniSONE 20 MG predniSONE 20 MG 12/17/2020 12:00:00 AM EDT 1.0 {tablet} active pr edniSONE 20 MG eCW1 ([facility]) Ketorolac Tromethamine 10 MG Oral Tablet Ketorolac Trometham ine 10 MG 12/17/2020 12:00:00 AM EDT active Ketorola c Tromethamine 10 MG eCW1 ([facility]) Ketorolac Tromethamine 10 MG Oral Tablet Ketorolac Trometham ine 10 MG 12/17/2020 12:00:00 AM EDT active Ketorola c Tromethamine 10 MG eCW1 ([facility]) Ketorolac Tromethamine 10 MG Oral Tablet Ketorolac Trometham ine 10 MG 12/17/2020 12:00:00 AM EDT active Ketorola c Tromethamine 10 MG eCW1 ([facility]) Prednisone 20 MG Oral Tablet predniSONE 20 MG predniSONE 20 MG 12/17/2020 12:00:00 AM EDT 1.0 {tablet} active pr edniSONE 20 MG eCW1 ([facility]) 20 mg 12/17/2020 12:00:00 AM EDT tablet 5 TAKE ONE TABLET BY MOUTH EVERY DAY FOR 5 DAYS TAKE ONE TABLET BY MOUTH EVERY DAY FOR 5 DAYS SOLD: 12/17/2020 [facility] 10 mg 12/17/2020 12:00:00 AM EDT tablet 20 TAKE ONE TABLET BY MOUTH EVERY 6 HOURS WITH FOOD OR MILK NEEDED FOR 5 DAYS TAKE ONE TABLET BY MOUTH EVERY 6 HOURS WITH FOOD OR MILK NEEDED FOR 5 DAYS SOLD: 12/17/2020 [facility] 5 mg 12/16/2020 12:00:00 AM EDT tablet,delayed release (DR/EC) 30 TAKE ONE TABLET BY MOUTH EVERY DAY NEEDED TAKE ONE TABLET BY MOUTH EVERY DAY NE EDED SOLD: 12/17/2020 [facility] 20 mg 12/10/2020 12:00:00 AM EDT tablet 30 TAKE ONE TABLET BY MOUTH EVERY DAY TAKE ONE TABLET BY MOUTH EVERY DAY SOLD: 12/13/2020 [facility] 8 mg 12/10/2020 12:00:00 AM EDT tablet,disintegrating 3 0 TAKE ONE TABLET ON THE TONGUE AND ALLOW TO DISOLVE NEEDED ONCE A DAY BY MOUTH FOR 30 DAYS TAKE ONE TABLET ON THE TONGUE AND ALLOW TO DISOLVE NEEDED ONCE A DAY BY MOUTH FOR 30 DAYS SOLD: 12/13/2020 [facility] 8-2 mg 11/27/2020 12:00:00 AM EDT film 4 PLACE TWO FILMS UNDER THE TONGUE EVERY DAY - MAXIMUM DAILY DOSE = 2 PLACE TWO FILMS UNDER THE TONGUE EVERY D AY - MAXIMUM DAILY DOSE = 2 SOLD: 11/28/2020 [facility] Prednisone 5 MG Oral Tablet predniSONE 5 MG predniSONE 5 MG 11/15/2020 12:00:00 AM EDT 1.0 {tablet} active predniSONE 5 MG eCW1 ([facility]) Prednisone 5 MG Oral Tablet predniSONE 5 MG predniSONE 5 MG 11/15/2020 12:00:00 AM EDT 1.0 {tablet} active predniSONE 5 MG eCW1 ([facility]) Prednisone 5 MG Oral Tablet predniSONE 5 MG predniSONE 5 MG 11/15/2020 12:00:00 AM EDT 1.0 {tablet} active predniSONE 5 MG eCW1 ([facility]) Prednisone 5 MG Oral Tablet predniSONE 5 MG predniSONE 5 MG 11/15/2020 12:00:00 AM EDT 1.0 {tablet} active predniSONE 5 MG eCW1 ([facility]) Prednisone 5 MG Oral Tablet predniSONE 5 MG predniSONE 5 MG 11/15/2020 12:00:00 AM EDT 1.0 {tablet} active predniSONE 5 MG eCW1 ([facility]) Prednisone 5 MG Oral Tablet predniSONE 5 MG predniSONE 5 MG 11/15/2020 12:00:00 AM EDT 1.0 {tablet} active predniSONE 5 MG eCW1 ([facility]) 5 mg 11/15/2020 12:00:00 AM EDT tablet 45 TAKE TWO TABLETS BY MOUTH A DAY FOR 2 WEEKS, THEN 1 TABLET DAILY FOR 2 WEEKS AND STOP TAKE TWO TABLETS BY MOUTH A DAY FOR 2 WEEKS, THEN 1 TABLET DAILY FOR 2 WEEKS AND STOP SOLD: 11/16/2020 [facility] Prednisone 5 MG Oral Tablet predniSONE 5 MG predniSONE 5 MG 11/15/2020 12:00:00 AM EDT 1.0 {tablet} active predniSONE 5 MG eCW1 ([facility]) Prednisone 5 MG Oral Tablet predniSONE 5 MG predniSONE 5 MG 11/15/2020 12:00:00 AM EDT 1.0 {tablet} active predniSONE 5 MG eCW1 ([facility]) Prednisone 5 MG Oral Tablet predniSONE 5 MG predniSONE 5 MG 11/15/2020 12:00:00 AM EDT 1.0 {tablet} active predniSONE 5 MG eCW1 ([facility]) Prednisone 5 MG Oral Tablet predniSONE 5 MG predniSONE 5 MG 11/15/2020 12:00:00 AM EDT 1.0 {tablet} active predniSONE 5 MG eCW1 ([facility]) Prednisone 5 MG Oral Tablet predniSONE 5 MG predniSONE 5 MG 11/15/2020 12:00:00 AM EDT 1.0 {tablet} active predniSONE 5 MG eCW1 ([facility]) Prednisone 5 MG Oral Tablet predniSONE 5 MG predniSONE 5 MG 11/15/2020 12:00:00 AM EDT 1.0 {tablet} active predniSONE 5 MG eCW1 ([facility]) Prednisone 5 MG Oral Tablet predniSONE 5 MG predniSONE 5 MG 11/15/2020 12:00:00 AM EDT 1.0 {tablet} active predniSONE 5 MG eCW1 ([facility]) Prednisone 5 MG Oral Tablet predniSONE 5 MG predniSONE 5 MG 11/15/2020 12:00:00 AM EDT 1.0 {tablet} active predniSONE 5 MG eCW1 ([facility]) Prednisone 5 MG Oral Tablet predniSONE 5 MG predniSONE 5 MG 11/15/2020 12:00:00 AM EDT 1.0 {tablet} active predniSONE 5 MG eCW1 ([facility]) Prednisone 5 MG Oral Tablet predniSONE 5 MG predniSONE 5 MG 11/15/2020 12:00:00 AM EDT 1.0 {tablet} active predniSONE 5 MG eCW1 ([facility]) Prednisone 5 MG Oral Tablet predniSONE 5 MG predniSONE 5 MG 11/15/2020 12:00:00 AM EDT 1.0 {tablet} active predniSONE 5 MG eCW1 ([facility]) Prednisone 5 MG Oral Tablet predniSONE 5 MG predniSONE 5 MG 11/15/2020 12:00:00 AM EDT 1.0 {tablet} active predniSONE 5 MG eCW1 ([facility]) Prednisone 5 MG Oral Tablet predniSONE 5 MG predniSONE 5 MG 11/15/2020 12:00:00 AM EDT 1.0 {tablet} active predniSONE 5 MG eCW1 ([facility]) 8 mg 10/28/2020 12:00:00 AM EDT tablet,disintegrating [address] ONE TABLET ON THE TONGUE AND ALLOW TO DISSOLVE EVERY DAY NEEDED PLACE ONE TABLET ON THE TONGUE AND ALLOW TO DISSOLVE EVERY DAY NEEDED SOLD: 10/28/2020 [facility] 5 mg 10/25/2020 12:00:00 AM EDT tablet,delayed release (DR/EC) 30 TAKE ONE TABLET BY MOUTH EVERY DAY NEEDED TAKE ONE TABLET BY MOUTH EVERY DAY NE EDED SOLD: 11/16/2020 [facility] 10 mg 10/25/2020 12:00:00 AM EDT capsule 90 TAKE ONE CAPSULE BY MOUTH EVERY 8 HOURS NEEDED TAKE ONE CAPSULE BY MOUTH EVERY 8 HOURS NEEDED SOLD : 11/16/2020 [facility] Nifedipine 10 MG Oral Capsule NIFEdipine 10 MG NIFEdipine 10 MG 10/24/2020 12:00:00 AM EDT 1.0 {capsule_as_needed} active NIFEdipine 10 MG eCW1 ([facility]) Nifedipine 10 MG Oral Capsule NIFEdipine 10 MG NIFEdipine 10 MG 10/24/2020 12:00:00 AM EDT 1.0 {capsule_as_needed} active NIFEdipine 10 MG eCW1 ([facility]) Nifedipine 10 MG Oral Capsule NIFEdipine 10 MG NIFEdipine 10 MG 10/24/2020 12:00:00 AM EDT 1.0 {capsule_as_needed} active NIFEdipine 10 MG eCW1 ([facility]) Nifedipine 10 MG Oral Capsule NIFEdipine 10 MG NIFEdipine 10 MG 10/24/2020 12:00:00 AM EDT 1.0 {capsule_as_needed} active NIFEdipine 10 MG eCW1 ([facility]) Nifedipine 10 MG Oral Capsule NIFEdipine 10 MG NIFEdipine 10 MG 10/24/2020 12:00:00 AM EDT 1.0 {capsule_as_needed} active NIFEdipine 10 MG eCW1 ([facility]) Nifedipine 10 MG Oral Capsule NIFEdipine 10 MG NIFEdipine 10 MG 10/24/2020 12:00:00 AM EDT 1.0 {capsule_as_needed} active NIFEdipine 10 MG eCW1 ([facility]) Nifedipine 10 MG Oral Capsule NIFEdipine 10 MG NIFEdipine 10 MG 10/24/2020 12:00:00 AM EDT 1.0 {capsule_as_needed} active NIFEdipine 10 MG eCW1 ([facility]) Nifedipine 10 MG Oral Capsule NIFEdipine 10 MG NIFEdipine 10 MG 10/24/2020 12:00:00 AM EDT 1.0 {capsule_as_needed} active NIFEdipine 10 MG eCW1 ([facility]) Nifedipine 10 MG Oral Capsule NIFEdipine 10 MG NIFEdipine 10 MG 10/24/2020 12:00:00 AM EDT 1.0 {capsule_as_needed} active NIFEdipine 10 MG eCW1 ([facility]) 400 mg 09/29/2020 12:00:00 AM EDT tablet 7 TAKE ONE TABLET BY MOUTH EVERY DAY TAKE ONE TABLET BY MOUTH EVERY DAY SOLD: 10/07/2020 [facility] 20 mg 09/21/2020 12:00:00 AM EDT tablet 30 TAKE ONE TABLET BY MOUTH EVERY DAY FOR 30 DAYS TAKE ONE TABLET BY MOUTH EVERY DAY FOR 30 DAYS SOLD: 021 [facility] 5 mg 09/20/2020 12:00:00 AM EDT tablet,delayed release (DR/EC) 30 TAKE ONE TABLET BY MOUTH EVERY DAY NEEDED TAKE ONE TABLET BY MOUTH EVERY DAY NE EDED SOLD: 09/21/2020 [facility] Bisacodyl 5 MG Delayed Release Oral Tablet [Dulcolax] Dulcolax 5 MG Dulcolax 5 MG 09/19/2020 12:00:00 AM EDT 1.0 {tablet_as_needed} active Dulcolax 5 MG eCW1 ([facility]) Bisacodyl 5 MG Delayed Release Oral Tablet [Dulcolax] Dulcolax 5 MG Dulcolax 5 MG 09/19/2020 12:00:00 AM EDT 1.0 {tablet_as_needed} active Dulcolax 5 MG eCW1 ([facility]) Bisacodyl 5 MG Delayed Release Oral Tablet [Dulcolax] Dulcolax 5 MG Dulcolax 5 MG 09/19/2020 12:00:00 AM EDT 1.0 {tablet_as_needed} active Dulcolax 5 MG eCW1 ([facility]) Bisacodyl 5 MG Delayed Release Oral Tablet [Dulcolax] Dulcolax 5 MG Dulcolax 5 MG 09/19/2020 12:00:00 AM EDT 1.0 {tablet_as_needed} active Dulcolax 5 MG eCW1 ([facility]) Bisacodyl 5 MG Delayed Release Oral Tablet [Dulcolax] Dulcolax 5 MG Dulcolax 5 MG 09/19/2020 12:00:00 AM EDT 1.0 {tablet_as_needed} active eCW1 ([facility]) Bisacodyl 5 MG Delayed Release Oral Tablet [Dulcolax] Dulcolax 5 MG Dulcolax 5 MG 09/19/2020 12:00:00 AM EDT 1.0 {tablet_as_needed} active Dulcolax 5 MG eCW1 ([facility]) Bisacodyl 5 MG Delayed Release Oral Tablet [Dulcolax] Dulcolax 5 MG Dulcolax 5 MG 09/19/2020 12:00:00 AM EDT 1.0 {tablet_as_needed} active Dulcolax 5 MG eCW1 ([facility]) Bisacodyl 5 MG Delayed Release Oral Tablet [Dulcolax] Dulcolax 5 MG Dulcolax 5 MG 09/19/2020 12:00:00 AM EDT 1.0 {tablet_as_needed} active Dulcolax 5 MG eCW1 ([facility]) Bisacodyl 5 MG Delayed Release Oral Tablet [Dulcolax] Dulcolax 5 MG Dulcolax 5 MG 09/19/2020 12:00:00 AM EDT 1.0 {tablet_as_needed} active Dulcolax 5 MG eCW1 ([facility]) sildenafil 20 MG Oral Tablet Sildenafil Citrate 20 MG Silden afil Citrate 20 MG 09/11/2020 12:00:00 AM EDT 1.0 {tablet} active Sildenafil Citrate 20 MG eCW1 ([facility]) sildenafil 20 MG Oral Tablet Sildenafil Citrate 20 MG Silden afil Citrate 20 MG 09/11/2020 12:00:00 AM EDT 1.0 {tablet} active Sildenafil Citrate 20 MG eCW1 ([facility]) sildenafil 20 MG Oral Tablet Sildenafil Citrate 20 MG Silden afil Citrate 20 MG 09/11/2020 12:00:00 AM EDT 1.0 {tablet} active Sildenafil Citrate 20 MG eCW1 ([facility]) sildenafil 20 MG Oral Tablet Sildenafil Citrate 20 MG Silden afil Citrate 20 MG 09/11/2020 12:00:00 AM EDT 1.0 {tablet} active Sildenafil Citrate 20 MG eCW1 ([facility]) sildenafil 20 MG Oral Tablet Sildenafil Citrate 20 MG Silden afil Citrate 20 MG 09/11/2020 12:00:00 AM EDT 1.0 {tablet} active Sildenafil Citrate 20 MG eCW1 ([facility]) sildenafil 20 MG Oral Tablet Sildenafil Citrate 20 MG Silden afil Citrate 20 MG 09/11/2020 12:00:00 AM EDT 1.0 {tablet} active Sildenafil Citrate 20 MG eCW1 ([facility]) sildenafil 20 MG Oral Tablet Sildenafil Citrate 20 MG Silden afil Citrate 20 MG 09/11/2020 12:00:00 AM EDT 1.0 {tablet} active Sildenafil Citrate 20 MG eCW1 ([facility]) sildenafil 20 MG Oral Tablet Sildenafil Citrate 20 MG Silden afil Citrate 20 MG 09/11/2020 12:00:00 AM EDT 1.0 {tablet} active Sildenafil Citrate 20 MG eCW1 ([facility]) sildenafil 20 MG Oral Tablet Sildenafil Citrate 20 MG Silden afil Citrate 20 MG 09/11/2020 12:00:00 AM EDT 1.0 {tablet} active Sildenafil Citrate 20 MG eCW1 ([facility]) sildenafil 20 MG Oral Tablet Sildenafil Citrate 20 MG Silden afil Citrate 20 MG 09/11/2020 12:00:00 AM EDT 1.0 {tablet} active Sildenafil Citrate 20 MG eCW1 ([facility]) sildenafil 20 MG Oral Tablet Sildenafil Citrate 20 MG Silden afil Citrate 20 MG 09/11/2020 12:00:00 AM EDT 1.0 {tablet} active Sildenafil Citrate 20 MG eCW1 ([facility]) sildenafil 20 MG Oral Tablet Sildenafil Citrate 20 MG Silden afil Citrate 20 MG 09/11/2020 12:00:00 AM EDT 1.0 {tablet} active Sildenafil Citrate 20 MG eCW1 ([facility]) sildenafil 20 MG Oral Tablet Sildenafil Citrate 20 MG Silden afil Citrate 20 MG 09/11/2020 12:00:00 AM EDT 1.0 {tablet} active Sildenafil Citrate 20 MG eCW1 ([facility]) sildenafil 20 MG Oral Tablet Sildenafil Citrate 20 MG Silden afil Citrate 20 MG 09/11/2020 12:00:00 AM EDT 1.0 {tablet} active Sildenafil Citrate 20 MG eCW1 ([facility]) sildenafil 20 MG Oral Tablet Sildenafil Citrate 20 MG Silden afil Citrate 20 MG 09/11/2020 12:00:00 AM EDT 1.0 {tablet} active eCW1 ([facility]) sildenafil 20 MG Oral Tablet Sildenafil Citrate 20 MG Silden afil Citrate 20 MG 09/11/2020 12:00:00 AM EDT 1.0 {tablet} active Sildenafil Citrate 20 MG eCW1 ([facility]) sildenafil 20 MG Oral Tablet Sildenafil Citrate 20 MG Silden afil Citrate 20 MG 09/11/2020 12:00:00 AM EDT 1.0 {tablet} active Sildenafil Citrate 20 MG eCW1 ([facility]) sildenafil 20 MG Oral Tablet Sildenafil Citrate 20 MG Silden afil Citrate 20 MG 09/11/2020 12:00:00 AM EDT 1.0 {tablet} active Sildenafil Citrate 20 MG eCW1 ([facility]) sildenafil 20 MG Oral Tablet Sildenafil Citrate 20 MG Silden afil Citrate 20 MG 09/11/2020 12:00:00 AM EDT 1.0 {tablet} active Sildenafil Citrate 20 MG eCW1 ([facility]) sildenafil 20 MG Oral Tablet Sildenafil Citrate 20 MG Silden afil Citrate 20 MG 09/11/2020 12:00:00 AM EDT 1.0 {tablet} active Sildenafil Citrate 20 MG eCW1 ([facility]) sildenafil 20 MG Oral Tablet Sildenafil Citrate 20 MG Silden afil Citrate 20 MG 09/11/2020 12:00:00 AM EDT 1.0 {tablet} active Sildenafil Citrate 20 MG eCW1 ([facility]) sildenafil 20 MG Oral Tablet Sildenafil Citrate 20 MG Silden afil Citrate 20 MG 09/11/2020 12:00:00 AM EDT 1.0 {tablet} active Sildenafil Citrate 20 MG eCW1 ([facility]) sildenafil 20 MG Oral Tablet Sildenafil Citrate 20 MG Silden afil Citrate 20 MG 09/11/2020 12:00:00 AM EDT 1.0 {tablet} active Sildenafil Citrate 20 MG eCW1 ([facility]) sildenafil 20 MG Oral Tablet Sildenafil Citrate 20 MG Silden afil Citrate 20 MG 09/11/2020 12:00:00 AM EDT 1.0 {tablet} active Sildenafil Citrate 20 MG eCW1 ([facility]) sildenafil 20 MG Oral Tablet Sildenafil Citrate 20 MG Silden afil Citrate 20 MG 09/11/2020 12:00:00 AM EDT 1.0 {tablet} active Sildenafil Citrate 20 MG eCW1 ([facility]) sildenafil 20 MG Oral Tablet Sildenafil Citrate 20 MG Silden afil Citrate 20 MG 09/11/2020 12:00:00 AM EDT 1.0 {tablet} active Sildenafil Citrate 20 MG eCW1 ([facility]) sildenafil 20 MG Oral Tablet Sildenafil Citrate 20 MG Silden afil Citrate 20 MG 09/11/2020 12:00:00 AM EDT 1.0 {tablet} active Sildenafil Citrate 20 MG eCW1 ([facility]) sildenafil 20 MG Oral Tablet Sildenafil Citrate 20 MG Silden afil Citrate 20 MG 09/11/2020 12:00:00 AM EDT 1.0 {tablet} active Sildenafil Citrate 20 MG eCW1 ([facility]) sildenafil 20 MG Oral Tablet Sildenafil Citrate 20 MG Silden afil Citrate 20 MG 09/11/2020 12:00:00 AM EDT 1.0 {tablet} active Sildenafil Citrate 20 MG eCW1 ([facility]) sildenafil 20 MG Oral Tablet Sildenafil Citrate 20 MG Silden afil Citrate 20 MG 09/11/2020 12:00:00 AM EDT 1.0 {tablet} active Sildenafil Citrate 20 MG eCW1 ([facility]) sildenafil 20 MG Oral Tablet Sildenafil Citrate 20 MG Silden afil Citrate 20 MG 09/11/2020 12:00:00 AM EDT 1.0 {tablet} active eCW1 ([facility]) sildenafil 20 MG Oral Tablet Sildenafil Citrate 20 MG Silden afil Citrate 20 MG 09/11/2020 12:00:00 AM EDT 1.0 {tablet} active Sildenafil Citrate 20 MG eCW1 ([facility]) sildenafil 20 MG Oral Tablet Sildenafil Citrate 20 MG Silden afil Citrate 20 MG 09/11/2020 12:00:00 AM EDT 1.0 {tablet} active Sildenafil Citrate 20 MG eCW1 ([facility]) sildenafil 20 MG Oral Tablet Sildenafil Citrate 20 MG Silden afil Citrate 20 MG 09/11/2020 12:00:00 AM EDT 1.0 {tablet} active Sildenafil Citrate 20 MG eCW1 ([facility]) sildenafil 20 MG Oral Tablet Sildenafil Citrate 20 MG Silden afil Citrate 20 MG 09/11/2020 12:00:00 AM EDT 1.0 {tablet} active Sildenafil Citrate 20 MG eCW1 ([facility]) sildenafil 20 MG Oral Tablet Sildenafil Citrate 20 MG Silden afil Citrate 20 MG 09/11/2020 12:00:00 AM EDT 1.0 {tablet} active Sildenafil Citrate 20 MG eCW1 ([facility]) sildenafil 20 MG Oral Tablet Sildenafil Citrate 20 MG Silden afil Citrate 20 MG 09/11/2020 12:00:00 AM EDT 1.0 {tablet} active Sildenafil Citrate 20 MG eCW1 ([facility]) sildenafil 20 MG Oral Tablet Sildenafil Citrate 20 MG Silden afil Citrate 20 MG 09/11/2020 12:00:00 AM EDT 1.0 {tablet} active Sildenafil Citrate 20 MG eCW1 ([facility]) sildenafil 20 MG Oral Tablet Sildenafil Citrate 20 MG Silden afil Citrate 20 MG 09/11/2020 12:00:00 AM EDT 1.0 {tablet} active Sildenafil Citrate 20 MG eCW1 ([facility]) sildenafil 20 MG Oral Tablet Sildenafil Citrate 20 MG Silden afil Citrate 20 MG 09/11/2020 12:00:00 AM EDT 1.0 {tablet} active Sildenafil Citrate 20 MG eCW1 ([facility]) sildenafil 20 MG Oral Tablet Sildenafil Citrate 20 MG Silden afil Citrate 20 MG 09/11/2020 12:00:00 AM EDT 1.0 {tablet} active Sildenafil Citrate 20 MG eCW1 ([facility]) sildenafil 20 MG Oral Tablet Sildenafil Citrate 20 MG Silden afil Citrate 20 MG 09/11/2020 12:00:00 AM EDT 1.0 {tablet} active Sildenafil Citrate 20 MG eCW1 ([facility]) Prednisone 5 MG Oral Tablet predniSONE 5 MG predniSONE 5 MG 08/27/2020 12:00:00 AM EDT 2.0 {tablet} active predniSONE 5 MG eCW1 ([facility]) Prednisone 5 MG Oral Tablet predniSONE 5 MG predniSONE 5 MG 08/27/2020 12:00:00 AM EDT 2.0 {tablet} active eCW1 ([facility]) Prednisone 5 MG Oral Tablet predniSONE 5 MG predniSONE 5 MG 08/27/2020 12:00:00 AM EDT 2.0 {tablet} active predniSONE 5 MG eCW1 ([facility]) Prednisone 5 MG Oral Tablet predniSONE 5 MG predniSONE 5 MG 08/27/2020 12:00:00 AM EDT 2.0 {tablet} active predniSONE 5 MG eCW1 ([facility]) Prednisone 5 MG Oral Tablet predniSONE 5 MG predniSONE 5 MG 08/27/2020 12:00:00 AM EDT 2.0 {tablet} active predniSONE 5 MG eCW1 ([facility]) Prednisone 5 MG Oral Tablet predniSONE 5 MG predniSONE 5 MG 08/27/2020 12:00:00 AM EDT 2.0 {tablet} active predniSONE 5 MG eCW1 ([facility]) 5 mg 08/27/2020 12:00:00 AM EDT tablet 60 TAKE TWO TABLETS BY MOUTH EVERY DAY TAKE TWO TABLETS BY MOUTH EVERY DAY SOLD: 09/05/2020 [employer] Prednisone 5 MG Oral Tablet predniSONE 5 MG predniSONE 5 MG 08/27/2020 12:00:00 AM EDT 2.0 {tablet} active predniSONE 5 MG eCW1 ([facility]) Prednisone 5 MG Oral Tablet predniSONE 5 MG predniSONE 5 MG 08/27/2020 12:00:00 AM EDT 2.0 {tablet} active predniSONE 5 MG eCW1 ([facility]) Prednisone 5 MG Oral Tablet predniSONE 5 MG predniSONE 5 MG 08/27/2020 12:00:00 AM EDT 2.0 {tablet} active predniSONE 5 MG eCW1 ([facility]) Hydroxychloroquine Sulfate 200 MG Oral Tablet HYDROXYCHLOROQ UINE SULFATE 08/27/2020 12:00:00 AM EDT tablet 28 TAKE ONE TABLE T BY MOUTH EVERY DAY TAKE ONE TABLET BY MOUTH EVERY DAY SOLD: 08/27/2020 [facility] Prednisone 5 MG Oral Tablet predniSONE 5 MG predniSONE 5 MG 08/27/2020 12:00:00 AM EDT 2.0 {tablet} active predniSONE 5 MG eCW1 ([facility]) Prednisone 5 MG Oral Tablet predniSONE 5 MG predniSONE 5 MG 08/27/2020 12:00:00 AM EDT 2.0 {tablet} active predniSONE 5 MG eCW1 ([facility]) Prednisone 5 MG Oral Tablet predniSONE 5 MG predniSONE 5 MG 08/27/2020 12:00:00 AM EDT 2.0 {tablet} active predniSONE 5 MG eCW1 ([facility]) Prednisone 5 MG Oral Tablet predniSONE 5 MG predniSONE 5 MG 08/27/2020 12:00:00 AM EDT 2.0 {tablet} active predniSONE 5 MG eCW1 ([facility]) Prednisone 5 MG Oral Tablet predniSONE 5 MG predniSONE 5 MG 08/27/2020 12:00:00 AM EDT 2.0 {tablet} active predniSONE 5 MG eCW1 ([facility]) Metronidazole 500 MG Oral Tablet metroNIDAZOLE 500 MG metroN IDAZOLE 500 MG 08/23/2020 12:00:00 AM EDT 1.0 {tablet} active metroNIDAZOLE 500 MG eCW1 ([facility]) Metronidazole 500 MG Oral Tablet metroNIDAZOLE 500 MG metroN IDAZOLE 500 MG 08/23/2020 12:00:00 AM EDT 1.0 {tablet} active metroNIDAZOLE 500 MG eCW1 ([facility]) Metronidazole 500 MG Oral Tablet metroNIDAZOLE 500 MG metroN IDAZOLE 500 MG 08/23/2020 12:00:00 AM EDT 1.0 {tablet} active metroNIDAZOLE 500 MG eCW1 ([facility]) Metronidazole 500 MG Oral Tablet metroNIDAZOLE 500 MG metroN IDAZOLE 500 MG 08/23/2020 12:00:00 AM EDT 1.0 {tablet} active metroNIDAZOLE 500 MG eCW1 ([facility]) Metronidazole 500 MG Oral Tablet METRONIDAZOLE 08/23/2020 12:0 0:00 AM EDT tablet 14 TAKE ONE TABLET BY MOUTH TWICE A DAY FOR 7 DAYS TAKE ONE TABLET BY MOUTH TWICE A DAY FOR 7 DAYS SOLD: 08/26/2020 [facility] Metronidazole 500 MG Oral Tablet metroNIDAZOLE 500 MG metroN IDAZOLE 500 MG 08/23/2020 12:00:00 AM EDT 1.0 {tablet} active metroNIDAZOLE 500 MG eCW1 ([facility]) Metronidazole 500 MG Oral Tablet metroNIDAZOLE 500 MG metroN IDAZOLE 500 MG 08/23/2020 12:00:00 AM EDT 1.0 {tablet} active metroNIDAZOLE 500 MG eCW1 ([facility]) Metronidazole 500 MG Oral Tablet metroNIDAZOLE 500 MG metroN IDAZOLE 500 MG 08/23/2020 12:00:00 AM EDT 1.0 {tablet} active metroNIDAZOLE 500 MG eCW1 ([facility]) Metronidazole 500 MG Oral Tablet metroNIDAZOLE 500 MG metroN IDAZOLE 500 MG 08/23/2020 12:00:00 AM EDT 1.0 {tablet} active metroNIDAZOLE 500 MG eCW1 ([facility]) quetiapine 200 MG Oral Tablet QUETIAPINE FUMARATE 08/19/2020 12: 00:00 AM EDT tablet 14 TAKE ONE TABLET BY MOUTH AT BEDT TERRENCE MAXIMUM DAILY DOSE = 1 TAKE ONE TABLET BY MOUTH AT BEDTIME MAXIMUM DAILY DOSE = 1 SOLD: 08/19/2020 [facility] 25 mg 08/19/2020 12:00:00 AM EDT tablet 42 TAKE ONE TABLET BY MOUTH THREE TIMES A DAY MAXIMUM DAILY DOSE = 3 TAKE ONE TABLET BY MOUTH THREE TIMES A D AY MAXIMUM DAILY DOSE = 3 SOLD: 08/19/2020 [facility] dalbavancin 20 MG/ML Injectable Solution [Dalvance] Da lvance 500 MG Dalvance 500 MG 08/15/2020 12:00:00 AM EDT active Dalvance 500 MG eCW1 ([facility]) dalbavancin 20 MG/ML Injectable Solution [Dalvance] Da lvance 500 MG Dalvance 500 MG 08/15/2020 12:00:00 AM EDT active Dalvance 500 MG eCW1 ([facility]) dalbavancin 20 MG/ML Injectable Solution [Dalvance] Da lvance 500 MG Dalvance 500 MG 08/15/2020 12:00:00 AM EDT active Dalvance 500 MG eCW1 ([facility]) dalbavancin 20 MG/ML Injectable Solution [Dalvance] Da lvance 500 MG Dalvance 500 MG 08/15/2020 12:00:00 AM EDT active Dalvance 500 MG eCW1 ([facility]) dalbavancin 20 MG/ML Injectable Solution [Dalvance] Da lvance 500 MG Dalvance 500 MG 08/15/2020 12:00:00 AM EDT active Dalvance 500 MG eCW1 ([facility]) dalbavancin 20 MG/ML Injectable Solution [Dalvance] Da lvance 500 MG Dalvance 500 MG 08/15/2020 12:00:00 AM EDT active Dalvance 500 MG eCW1 ([facility]) dalbavancin 20 MG/ML Injectable Solution [Dalvance] Da lvance 500 MG Dalvance 500 MG 08/15/2020 12:00:00 AM EDT active Dalvance 500 MG eCW1 ([facility]) dalbavancin 20 MG/ML Injectable Solution [Dalvance] Da lvance 500 MG Dalvance 500 MG 08/15/2020 12:00:00 AM EDT active Dalvance 500 MG eCW1 ([facility]) dalbavancin 20 MG/ML Injectable Solution [Dalvance] Da lvance 500 MG Dalvance 500 MG 08/15/2020 12:00:00 AM EDT active Dalvance 500 MG eCW1 ([facility]) 10 mg 08/10/2020 12:00:00 AM EDT capsule 60 TAKE ONE CAPSULE BY MOUTH TWICE A DAY TAKE ONE CAPSULE BY MOUTH TWICE A DAY SOLD: 08/10/2020 [facility] 8 mg 08/10/2020 12:00:00 AM EDT tablet,disintegrating 3 0 TAKE ONE TABLET ON THE TONGUE AND ALLOW TO DISOLVE NEEDED ONCE A DAY BY MOUTH FOR 30 DAYS TAKE ONE TABLET ON THE TONGUE AND ALLOW TO DISOLVE NEEDED ONCE A DAY BY MOUTH FOR 30 DAYS SOLD: 08/10/2020 [facility] 100 mg 08/08/2020 12:00:00 AM EDT capsule 60 TAKE ONE CAPSULE BY MOUTH EVERY 12 HOURS TAKE ONE CAPSULE BY MOUTH EVERY 12 HOURS SOLD: 08/10/2020 [facility] Nifedipine 10 MG Oral Capsule NIFEdipine 10 MG NIFEdipine 10 MG 08/07/2020 12:00:00 AM EDT 1.0 {capsule} active N IFEdipine 10 MG eCW1 ([facility]) Nifedipine 10 MG Oral Capsule NIFEdipine 10 MG NIFEdipine 10 MG 08/07/2020 12:00:00 AM EDT 1.0 {capsule} suspended NIFEdipine 10 MG eCW1 ([facility]) Nifedipine 10 MG Oral Capsule NIFEdipine 10 MG NIFEdipine 10 MG 08/07/2020 12:00:00 AM EDT 1.0 {capsule} active N IFEdipine 10 MG eCW1 ([facility]) Nifedipine 10 MG Oral Capsule NIFEdipine 10 MG NIFEdipine 10 MG 08/07/2020 12:00:00 AM EDT 1.0 {capsule} suspended NIFEdipine 10 MG eCW1 ([facility]) Minocycline 100 MG Oral Capsule Minocycline HCl 100 MG Minoc ycline HCl 100 MG 08/07/2020 12:00:00 AM EDT 1.0 {capsule} active Minocycline HCl 100 MG eCW1 ([facility]) Nifedipine 10 MG Oral Capsule NIFEdipine 10 MG NIFEdipine 10 MG 08/07/2020 12:00:00 AM EDT 1.0 {capsule} active N IFEdipine 10 MG eCW1 ([facility]) Nifedipine 10 MG Oral Capsule NIFEdipine 10 MG NIFEdipine 10 MG 08/07/2020 12:00:00 AM EDT 1.0 {capsule} suspended NIFEdipine 10 MG eCW1 ([facility]) Minocycline 100 MG Oral Capsule Minocycline HCl 100 MG Minoc ycline HCl 100 MG 08/07/2020 12:00:00 AM EDT 1.0 {capsule} active Minocycline HCl 100 MG eCW1 ([facility]) Nifedipine 10 MG Oral Capsule NIFEdipine 10 MG NIFEdipine 10 MG 08/07/2020 12:00:00 AM EDT 1.0 {capsule} active N IFEdipine 10 MG eCW1 ([facility]) Nifedipine 10 MG Oral Capsule NIFEdipine 10 MG NIFEdipine 10 MG 08/07/2020 12:00:00 AM EDT 1.0 {capsule} suspended NIFEdipine 10 MG eCW1 ([facility]) Minocycline 100 MG Oral Capsule Minocycline HCl 100 MG Minoc ycline HCl 100 MG 08/07/2020 12:00:00 AM EDT 1.0 {capsule} active Minocycline HCl 100 MG eCW1 ([facility]) Nifedipine 10 MG Oral Capsule NIFEdipine 10 MG NIFEdipine 10 MG 08/07/2020 12:00:00 AM EDT 1.0 {capsule} suspended NIFEdipine 10 MG eCW1 ([facility]) Nifedipine 10 MG Oral Capsule NIFEdipine 10 MG NIFEdipine 10 MG 08/07/2020 12:00:00 AM EDT 1.0 {capsule} suspended NIFEdipine 10 MG eCW1 ([facility]) Nifedipine 10 MG Oral Capsule NIFEdipine 10 MG NIFEdipine 10 MG 08/07/2020 12:00:00 AM EDT 1.0 {capsule} active N IFEdipine 10 MG eCW1 ([facility]) Nifedipine 10 MG Oral Capsule NIFEdipine 10 MG NIFEdipine 10 MG 08/07/2020 12:00:00 AM EDT 1.0 {capsule} active N IFEdipine 10 MG eCW1 ([facility]) Nifedipine 10 MG Oral Capsule NIFEdipine 10 MG NIFEdipine 10 MG 08/07/2020 12:00:00 AM EDT 1.0 {capsule} active N IFEdipine 10 MG eCW1 ([facility]) Minocycline 100 MG Oral Capsule Minocycline HCl 100 MG Minoc ycline HCl 100 MG 08/07/2020 12:00:00 AM EDT 1.0 {capsule} active Minocycline HCl 100 MG eCW1 ([facility]) Minocycline 100 MG Oral Capsule Minocycline HCl 100 MG Minoc ycline HCl 100 MG 08/07/2020 12:00:00 AM EDT 1.0 {capsule} active Minocycline HCl 100 MG eCW1 ([facility]) Nifedipine 10 MG Oral Capsule NIFEdipine 10 MG NIFEdipine 10 MG 08/07/2020 12:00:00 AM EDT 1.0 {capsule} active N IFEdipine 10 MG eCW1 ([facility]) Nifedipine 10 MG Oral Capsule NIFEdipine 10 MG NIFEdipine 10 MG 08/07/2020 12:00:00 AM EDT 1.0 {capsule} suspended eCW1 ([facility]) Minocycline 100 MG Oral Capsule Minocycline HCl 100 MG Minoc ycline HCl 100 MG 08/07/2020 12:00:00 AM EDT 1.0 {capsule} active Minocycline HCl 100 MG eCW1 ([facility]) Minocycline 100 MG Oral Capsule Minocycline HCl 100 MG Minoc ycline HCl 100 MG 08/07/2020 12:00:00 AM EDT 1.0 {capsule} active Minocycline HCl 100 MG eCW1 ([facility]) Minocycline 100 MG Oral Capsule Minocycline HCl 100 MG Minoc ycline HCl 100 MG 08/07/2020 12:00:00 AM EDT 1.0 {capsule} active Minocycline HCl 100 MG eCW1 ([facility]) Minocycline 100 MG Oral Capsule Minocycline HCl 100 MG Minoc ycline HCl 100 MG 08/07/2020 12:00:00 AM EDT 1.0 {capsule} active Minocycline HCl 100 MG eCW1 ([facility]) Minocycline 100 MG Oral Capsule Minocycline HCl 100 MG Minoc ycline HCl 100 MG 08/07/2020 12:00:00 AM EDT 1.0 {capsule} active Minocycline HCl 100 MG eCW1 ([facility]) Nifedipine 10 MG Oral Capsule NIFEdipine 10 MG NIFEdipine 10 MG 08/07/2020 12:00:00 AM EDT 1.0 {capsule} active N IFEdipine 10 MG eCW1 ([facility]) Nifedipine 10 MG Oral Capsule NIFEdipine 10 MG NIFEdipine 10 MG 08/07/2020 12:00:00 AM EDT 1.0 {capsule} suspended NIFEdipine 10 MG eCW1 ([facility]) Nifedipine 10 MG Oral Capsule NIFEdipine 10 MG NIFEdipine 10 MG 08/07/2020 12:00:00 AM EDT 1.0 {capsule} active N IFEdipine 10 MG eCW1 ([facility]) Nifedipine 10 MG Oral Capsule NIFEdipine 10 MG NIFEdipine 10 MG 08/07/2020 12:00:00 AM EDT 1.0 {capsule} active N IFEdipine 10 MG eCW1 ([facility]) Nifedipine 10 MG Oral Capsule NIFEdipine 10 MG NIFEdipine 10 MG 08/07/2020 12:00:00 AM EDT 1.0 {capsule} suspended NIFEdipine 10 MG eCW1 ([facility]) Minocycline 100 MG Oral Capsule Minocycline HCl 100 MG Minoc ycline HCl 100 MG 08/07/2020 12:00:00 AM EDT 1.0 {capsule} active Minocycline HCl 100 MG eCW1 ([facility]) Nifedipine 10 MG Oral Capsule NIFEdipine 10 MG NIFEdipine 10 MG 08/07/2020 12:00:00 AM EDT 1.0 {capsule} active N IFEdipine 10 MG eCW1 ([facility]) Minocycline 100 MG Oral Capsule Minocycline HCl 100 MG Minoc ycline HCl 100 MG 08/07/2020 12:00:00 AM EDT 1.0 {capsule} active Minocycline HCl 100 MG eCW1 ([facility]) 2 % 08/04/2020 12:00:00 AM EDT ointment 22 APPLY EXTERNALLY TO THE AFFECTED AREA THREE TIMES A DAY APPLY EXTERNALLY TO THE AFFECTED AREA THREE TIMES A DA Y SOLD: 08/04/2020 [facility] NITROFURANTOIN, MACROCRYSTALS 25 MG / Ni trofurantoin, Monohydrate 75 MG Oral Capsule 100 mg NITROFURANTOIN MONOHYD/M-CRYST 08/04/2020 12:00:00 AM EDT ca psule 10 TAKE ONE CAPSULE BY MOUTH TWICE A DAY TAKE ONE CAPSULE BY MOUTH TWICE A DAY SOLD: 08/04/2020 [facility] doxycycline hyclate 100 MG Oral Capsule DOXYCYCLINE HYCLATE 07/25/2020 12:00:00 AM EDT capsule 60 TAKE ONE CAPSULE BY MOUTH EV [place] 12 HOURS UNTIL DALVANCE TAKE ONE CAPSULE BY MOUTH EVERY 12 HOURS UNTIL DALVANCE SOLD: 08/04/2020 [facility] cefdinir 300 MG Oral Capsule Cefdinir 300 MG Cefdinir 300 MG 07/18/2020 12:00:00 AM EDT suspended Cefdinir 300 MG eCW1 ([facility]) cefdinir 300 MG Oral Capsule Cefdinir 300 MG Cefdinir 300 MG 07/18/2020 12:00:00 AM EDT suspended Cefdinir 300 MG eCW1 ([facility]) cefdinir 300 MG Oral Capsule Cefdinir 300 MG Cefdinir 300 MG 07/18/2020 12:00:00 AM EDT suspended Cefdinir 300 MG eCW1 ([facility]) cefdinir 300 MG Oral Capsule Cefdinir 300 MG Cefdinir 300 MG 07/18/2020 12:00:00 AM EDT suspended Cefdinir 300 MG eCW1 ([facility]) cefdinir 300 MG Oral Capsule Cefdinir 300 MG Cefdinir 300 MG 07/18/2020 12:00:00 AM EDT suspended Cefdinir 300 MG eCW1 ([facility]) cefdinir 300 MG Oral Capsule Cefdinir 300 MG Cefdinir 300 MG 07/18/2020 12:00:00 AM EDT active Cefdinir 300 MG eCW1 ([facility]) cefdinir 300 MG Oral Capsule Cefdinir 300 MG Cefdinir 300 MG 07/18/2020 12:00:00 AM EDT suspended Cefdinir 300 MG eCW1 ([facility]) cefdinir 300 MG Oral Capsule Cefdinir 300 MG Cefdinir 300 MG 07/18/2020 12:00:00 AM EDT active Cefdinir 300 MG eCW1 ([facility]) cefdinir 300 MG Oral Capsule Cefdinir 300 MG Cefdinir 300 MG 07/18/2020 12:00:00 AM EDT suspended Cefdinir 300 MG eCW1 ([facility]) cefdinir 300 MG Oral Capsule Cefdinir 300 MG Cefdinir 300 MG 07/18/2020 12:00:00 AM EDT suspended Cefdinir 300 MG eCW1 ([facility]) cefdinir 300 MG Oral Capsule Cefdinir 300 MG Cefdinir 300 MG 07/18/2020 12:00:00 AM EDT active Cefdinir 300 MG eCW1 ([facility]) Ondansetron 8 MG Disintegrating Oral Tablet Ondansetron 8 MG 07/15/2020 12:00:00 AM EDT active Ondansetron 8 MG eCW1 ([facility]) Ondansetron 8 MG Disintegrating Oral Tablet Ondansetron 8 MG 07/15/2020 12:00:00 AM EDT active Ondansetron 8 MG eCW1 ([facility]) Ondansetron 8 MG Disintegrating Oral Tablet Ondansetron 8 MG 07/15/2020 12:00:00 AM EDT active Ondansetron 8 MG eCW1 ([facility]) 20 mg 07/07/2020 12:00:00 AM EDT tablet 10 TAKE TWO TABLETS BY MOUTH EVERY DAY WITH MEALS TAKE TWO TABLETS BY MOUTH EVERY DAY WITH MEALS SOLD: 021 [facility] 150 mg 07/05/2020 12:00:00 AM EDT tablet 4 TAKE 1 TABLET BY MOUTH ONCE WEEKLY TAKE 1 TABLET BY MOUTH ONCE WEEKLY SOLD: 07/14/2020 [facility] 90 mcg/actuation 07/03/2020 12:00:00 AM EDT HFA aerosol inha ler 18 INHALE TWO PUFFS BY MOUTH FOUR TIMES A DAY INHALE TWO PUFFS BY MOUTH FOUR TIMES A DAY SOLD: 07/03/2020 [facility] 20 mg 07/03/2020 12:00:00 AM EDT tablet 10 TAKE ONE TABLET BY MOUTH TWICE A DAY FOR 5 DAYS TAKE ONE TABLET BY MOUTH TWICE A DAY FOR 5 DAYS SOLD: 2020 [facility] 10 mg 07/03/2020 12:00:00 AM EDT tablet 20 TAKE ONE TABLET BY MOUTH FOUR TIMES A DAY TAKE ONE TABLET BY MOUTH FOUR TIMES A DAY SOLD: 07/03/2020 [facility] 250 mg 07/03/2020 12:00:00 AM EDT tablet 6 TAKE TWO TABLETS BY MOUTH TODAY, THEN TAKE ONE TABLET BY MOUTH FOR 4 DAYS TAKE TWO TABLETS BY MOUTH TODAY, THEN TAKE ONE TABLET BY MOUTH FOR 4 DAYS SOLD: 07/03/2020 [facility] Prednisone 20 MG Oral Tablet PredniSONE 20 MG PredniSONE 20 MG 07/02/2020 12:00:00 AM EDT 1.0 {tablet} suspended PredniSONE 20 MG eCW1 ([facility]) Prednisone 20 MG Oral Tablet PredniSONE 20 MG PredniSONE 20 MG 07/02/2020 12:00:00 AM EDT 1.0 {tablet} active Pr edniSONE 20 MG eCW1 ([facility]) Prednisone 20 MG Oral Tablet PredniSONE 20 MG PredniSONE 20 MG 07/02/2020 12:00:00 AM EDT 1.0 {tablet} active Pr edniSONE 20 MG eCW1 ([facility]) Prednisone 20 MG Oral Tablet PredniSONE 20 MG PredniSONE 20 MG 07/02/2020 12:00:00 AM EDT 1.0 {tablet} active Pr edniSONE 20 MG eCW1 ([facility]) Prednisone 20 MG Oral Tablet PredniSONE 20 MG PredniSONE 20 MG 07/02/2020 12:00:00 AM EDT 1.0 {tablet} suspended PredniSONE 20 MG eCW1 ([facility]) Prednisone 20 MG Oral Tablet PredniSONE 20 MG PredniSONE 20 MG 07/02/2020 12:00:00 AM EDT 1.0 {tablet} active Pr edniSONE 20 MG eCW1 ([facility]) Prednisone 20 MG Oral Tablet PredniSONE 20 MG PredniSONE 20 MG 07/02/2020 12:00:00 AM EDT 1.0 {tablet} active Pr edniSONE 20 MG eCW1 ([facility]) Prednisone 20 MG Oral Tablet PredniSONE 20 MG PredniSONE 20 MG 07/02/2020 12:00:00 AM EDT 1.0 {tablet} suspended PredniSONE 20 MG eCW1 ([facility]) Prednisone 20 MG Oral Tablet PredniSONE 20 MG PredniSONE 20 MG 07/02/2020 12:00:00 AM EDT 1.0 {tablet} active Pr edniSONE 20 MG eCW1 ([facility]) Prednisone 20 MG Oral Tablet PredniSONE 20 MG PredniSONE 20 MG 07/02/2020 12:00:00 AM EDT 1.0 {tablet} active Pr edniSONE 20 MG eCW1 ([facility]) Prednisone 20 MG Oral Tablet PredniSONE 20 MG PredniSONE 20 MG 07/02/2020 12:00:00 AM EDT 1.0 {tablet} active Pr edniSONE 20 MG eCW1 ([facility]) 2 % 06/27/2020 12:00:00 AM EDT ointment 48 APPLY A HALF INCH TOPICALLY EVERY 6 HOURS, LEAVE A 12 HOUR INTERVAL BETWEEN DOSES, MAXIMUM DAILY DOSE = TWO TIMES A DAY APPLY A HALF INCH TOPICALLY EVERY 6 HOUR S, LEAVE A 12 HOUR INTERVAL BETWEEN DOSES, MAXIMUM DAILY DOSE = TWO TIMES A DAY SOLD: 06/27/2020 [employer] Hydroxychloroquine Sulfate 200 MG Oral Tablet HYDROXYCHLOROQ UINE SULFATE 06/27/2020 12:00:00 AM EDT tablet 28 TAKE ONE TABLE T BY MOUTH EVERY DAY TAKE ONE TABLET BY MOUTH EVERY DAY SOLD: 06/27/2020 [employer] Nitroglycerin 0.02 MG/MG Topical Ointment [Nitro-Bid] Nitro-Bid 2 % Nitro-Bid 2 % 06/26/2020 12:00:00 AM EDT active Nitro-Bid 2 % eCW1 ([facility]) Hydroxychloroquine Sulfate 200 MG Oral Tablet [Plaquen il] Plaquenil 200 MG Plaquenil 200 MG 06/26/2020 12:00:00 AM EDT a ctive Plaquenil 200 MG eCW1 ([facility]) Nitroglycerin 0.02 MG/MG Topical Ointment [Nitro-Bid] Nitro-Bid 2 % Nitro-Bid 2 % 06/26/2020 12:00:00 AM EDT active Nitro-Bid 2 % eCW1 ([facility]) Nitroglycerin 0.02 MG/MG Topical Ointment [Nitro-Bid] Nitro-Bid 2 % Nitro-Bid 2 % 06/26/2020 12:00:00 AM EDT active Nitro-Bid 2 % eCW1 ([facility]) Hydroxychloroquine Sulfate 200 MG Oral Tablet [Plaquen il] Plaquenil 200 MG Plaquenil 200 MG 06/26/2020 12:00:00 AM EDT a ctive Plaquenil 200 MG eCW1 ([facility]) Hydroxychloroquine Sulfate 200 MG Oral Tablet [Plaquen il] Plaquenil 200 MG Plaquenil 200 MG 06/26/2020 12:00:00 AM EDT a ctive Plaquenil 200 MG eCW1 ([facility]) Hydroxychloroquine Sulfate 200 MG Oral Tablet [Plaquen il] Plaquenil 200 MG Plaquenil 200 MG 06/26/2020 12:00:00 AM EDT a ctive Plaquenil 200 MG eCW1 ([facility]) Hydroxychloroquine Sulfate 200 MG Oral Tablet [Plaquen il] Plaquenil 200 MG Plaquenil 200 MG 06/26/2020 12:00:00 AM EDT a ctive Plaquenil 200 MG eCW1 ([facility]) Nitroglycerin 0.02 MG/MG Topical Ointment [Nitro-Bid] Nitro-Bid 2 % Nitro-Bid 2 % 06/26/2020 12:00:00 AM EDT active Nitro-Bid 2 % eCW1 ([facility]) Nitroglycerin 0.02 MG/MG Topical Ointment [Nitro-Bid] Nitro-Bid 2 % Nitro-Bid 2 % 06/26/2020 12:00:00 AM EDT active Nitro-Bid 2 % eCW1 ([facility]) Nitroglycerin 0.02 MG/MG Topical Ointment [Nitro-Bid] Nitro-Bid 2 % Nitro-Bid 2 % 06/26/2020 12:00:00 AM EDT active Nitro-Bid 2 % eCW1 ([facility]) Hydroxychloroquine Sulfate 200 MG Oral Tablet [Plaquen il] Plaquenil 200 MG Plaquenil 200 MG 06/26/2020 12:00:00 AM EDT a ctive Plaquenil 200 MG eCW1 ([facility]) Hydroxychloroquine Sulfate 200 MG Oral Tablet [Plaquen il] Plaquenil 200 MG Plaquenil 200 MG 06/26/2020 12:00:00 AM EDT a ctive Plaquenil 200 MG eCW1 ([facility]) Hydroxychloroquine Sulfate 200 MG Oral Tablet [Plaquen il] Plaquenil 200 MG Plaquenil 200 MG 06/26/2020 12:00:00 AM EDT a ctive Plaquenil 200 MG eCW1 ([facility]) Hydroxychloroquine Sulfate 200 MG Oral Tablet [Plaquen il] Plaquenil 200 MG Plaquenil 200 MG 06/26/2020 12:00:00 AM EDT a ctive Plaquenil 200 MG eCW1 ([facility]) Nitroglycerin 0.02 MG/MG Topical Ointment [Nitro-Bid] Nitro-Bid 2 % Nitro-Bid 2 % 06/26/2020 12:00:00 AM EDT active Nitro-Bid 2 % eCW1 ([facility]) Nitroglycerin 0.02 MG/MG Topical Ointment [Nitro-Bid] Nitro-Bid 2 % Nitro-Bid 2 % 06/26/2020 12:00:00 AM EDT active Nitro-Bid 2 % eCW1 ([facility]) Nitroglycerin 0.02 MG/MG Topical Ointment [Nitro-Bid] Nitro-Bid 2 % Nitro-Bid 2 % 06/26/2020 12:00:00 AM EDT active Nitro-Bid 2 % eCW1 ([facility]) Nitroglycerin 0.02 MG/MG Topical Ointment [Nitro-Bid] Nitro-Bid 2 % Nitro-Bid 2 % 06/26/2020 12:00:00 AM EDT active Nitro-Bid 2 % eCW1 ([facility]) Hydroxychloroquine Sulfate 200 MG Oral Tablet [Plaquen il] Plaquenil 200 MG Plaquenil 200 MG 06/26/2020 12:00:00 AM EDT a ctive Plaquenil 200 MG eCW1 ([facility]) 200 mg 06/19/2020 12:00:00 AM EDT capsule 30 TAKE ONE CAPSULE BY MOUTH EVERY DAY WITH FOOD TAKE ONE CAPSULE BY MOUTH EVERY DAY WITH FOOD SOLD: 06/21/2020 [facility] celecoxib 200 MG Oral Capsule [Celebrex] Celebrex 200 MG [facility] ebrex 200 MG 06/17/2020 12:00:00 AM EDT 1.0 {capsule_with_food} active Celebrex 200 MG eCW1 ([facility]) doxycycline hyclate 100 MG Oral Capsule DOXYCYCLINE HYCLATE 06/17/2020 12:00:00 AM EDT capsule 60 TAKE ONE CAPSULE BY MOUTH EV [place] 12 HOURS TAKE ONE CAPSULE BY MOUTH EVERY 12 HOURS SOLD: 06/18/2020 [facility] celecoxib 200 MG Oral Capsule [Celebrex] Celebrex 200 MG Bhavna ebrex 200 MG 06/17/2020 12:00:00 AM EDT 1.0 {capsule_with_food} active Celebrex 200 MG eCW1 ([facility]) 4 mg 06/17/2020 12:00:00 AM EDT tablet 30 TAKE ONE TABLET BY MOUTH TWICE A DAY TAKE ONE TABLET BY MOUTH TWICE A DAY SOLD: 06/18/2020 [facility] 4 mg 06/17/2020 12:00:00 AM EDT tablet 30 TAKE ONE TABLET BY MOUTH TWICE A DAY TAKE ONE TABLET BY MOUTH TWICE A DAY SOLD: 07/14/2020 [facility] celecoxib 200 MG Oral Capsule [Celebrex] Celebrex 200 MG [facility] ebrex 200 MG 06/17/2020 12:00:00 AM EDT 1.0 {capsule_with_food} active Celebrex 200 MG eCW1 ([facility]) celecoxib 200 MG Oral Capsule [Celebrex] Celebrex 200 MG [facility] ebrex 200 MG 06/17/2020 12:00:00 AM EDT 1.0 {capsule_with_food} active Celebrex 200 MG eCW1 ([facility]) 81 mg 06/02/2020 12:00:00 AM EDT tablet,delayed release (DR/EC) 30 TAKE ONE TABLET BY MOUTH DAILY AT 7AM. TAKE ONE TABLET BY MOUTH DAILY AT 7AM. SOLD: 06/04/2020 [facility] doxycycline hyclate 100 MG Oral Tablet DOXYCYCLINE HYCLATE 0 06/02/2020 12:00:00 AM EDT tablet 60 TAKE ONE TABLET BY MOUTH TWI CE A DAY AT 8AM AND 8PM TAKE ONE TABLET BY MOUTH TWICE A DAY AT 8AM AND 8PM SOLD: 06/04/2020 [facility] 8.6-50 mg 06/02/2020 12:00:00 AM EDT tablet 30 TAKE ONE TABLET BY MOUTH DAILY AT 7AM. TAKE ONE TABLET BY MOUTH DAILY AT 7AM. SOLD: 06/04/2020 [facility] 40 mg 06/02/2020 12:00:00 AM EDT capsule,delayed release (DR/EC) 30 TAKE ONE CAPSULE BY MOUTH EVERY DAY AT 7AM. TAKE ONE CAPSULE BY MOUTH EVERY DAY AT 7AM. SOLD: 06/04/2020 [facility] Cyclobenzaprine hydrochloride 10 MG Oral Tablet CYCLOBENZAPR INE HCL 06/02/2020 12:00:00 AM EDT tablet 30 TAKE ONE TABLET BY MOUTH EVERY 8 HOURS NEEDED FOR ACHES TAKE ONE TABLET BY MOUTH EVERY 8 HOURS NEEDED FOR A CHES SOLD: 06/04/2020 [facility] 50 mg 06/02/2020 12:00:00 AM EDT tablet 60 TAKE ONE TABLET BY MOUTH EVERY 8 HOURS NEEDED TAKE ONE TABLET BY MOUTH EVERY 8 HOURS NEEDED SOLD: 06/04/2020 [facility] 25 mg 06/02/2020 12:00:00 AM EDT tablet 60 TAKE ONE TABLET BY MOUTH THREE TIMES A DAY AT 7AM; 12-NOON, AND 5PM. NEEDED TAKE ONE TABLET BY MOUTH THREE TIMES A DAY AT 7AM; 12-NOON, AND 5PM. NEEDED SOLD: 06/04/2020 [facility] 1 mg 06/02/2020 12:00:00 AM EDT capsule 30 TAKE ONE CAPSULE BY MOUTH EVERY EVENING AT BEDTIME TAKE ONE CAPSULE BY MOUTH EVERY EVENING AT BEDTIME [facility] 300 mg 06/02/2020 12:00:00 AM EDT tablet 15 TAKE 1/2 TABLET BY MOUTH ONCE DAILY AT 8PM. TAKE 1/2 TABLET BY MOUTH ONCE DAILY AT 8PM. SOLD: 06/04/2020 [facility] 1,250 mcg (50,000 unit) 06/02/2020 12:00:00 AM EDT capsule 4 TAKE ONE CAPSULE BY MOUTH ONCE A WEEK ON WEDNESDAY TAKE ONE CAPSULE BY MOUTH ONCE A WEEK ON WEDNESDAY SOLD: 06/04/2020 [facility] 300 mg 06/02/2020 12:00:00 AM EDT capsule 90 TAKE ONE CAPSULE BY MOUTH THREE TIMES A DAY AT 7AM; 3PM; AND 9:30PM. TAKE ONE CAPSULE BY MOUTH THREE TIMES A DAY AT 7AM; 3PM; AND 9:30PM. SOLD: 06/04/2020 [facility] 1 mg 06/02/2020 12:00:00 AM EDT tablet 15 TAKE 1/2 TABLET BY MOUTH AT 7 IN THE MORNING TAKE 1/2 TABLET BY MOUTH AT 7 IN THE MORNING SOLD: 06/04/2020 [facility] meloxicam 15 MG Oral Tablet Meloxicam 15 MG Oral Table t (Mobic) Meloxicam 15 MG Oral Tablet (Mobic) 03/18/2020 12:00:00 AM EST 15 mg Oral active Take 1 tablet by mouth daily [facility] Ketorolac Tromethamine 10 MG Oral Tablet Ketorolac Trometham ine 10 MG 03/12/2020 12:00:00 AM EST active Ketorol ac Tromethamine 10 MG eCW1 ([facility]) Ketorolac Tromethamine 10 MG Oral Tablet Ketorolac Trometham ine 10 MG 03/12/2020 12:00:00 AM EST active Ketorol ac Tromethamine 10 MG eCW1 ([facility]) Ketorolac Tromethamine 10 MG Oral Tablet Ketorolac Trometham ine 10 MG 03/12/2020 12:00:00 AM EST active Ketorol ac Tromethamine 10 MG eCW1 ([facility]) Ketorolac Tromethamine 10 MG Oral Tablet Ketorolac Trometham ine 10 MG 03/12/2020 12:00:00 AM EST active Ketorol ac Tromethamine 10 MG eCW1 ([facility]) cefdinir 300 MG Oral Capsule Cefdinir 300 MG Cefdinir 300 MG 02/20/2020 12:00:00 AM EST active Cefdinir 300 MG eCW1 ([facility]) Phenergan 25 MG UNK 02/06/2020 12:00:00 AM EST 1.0 {tablet_a s_needed} active Phenergan 25 MG eCW1 ([facility]) Dicyclomine Hydrochloride 20 MG Oral Tablet Dicyclomin e HCl 20 MG Dicyclomine HCl 20 MG 02/06/2020 12:00:00 AM EST 1.0 {tablet} ac tive Dicyclomine HCl 20 MG eCW1 ([facility]) Phenergan 25 MG UNK 02/06/2020 12:00:00 AM EST 1.0 {tablet_a s_needed} active Phenergan 25 MG eCW1 ([facility]) Dicyclomine Hydrochloride 20 MG Oral Tablet Dicyclomin e HCl 20 MG Dicyclomine HCl 20 MG 02/06/2020 12:00:00 AM EST 1.0 {tablet} ac tive Dicyclomine HCl 20 MG eCW1 ([facility]) Dicyclomine Hydrochloride 20 MG Oral Tablet Dicyclomin e HCl 20 MG Dicyclomine HCl 20 MG 02/06/2020 12:00:00 AM EST 1.0 {tablet} ac tive Dicyclomine HCl 20 MG eCW1 ([facility]) Phenergan 25 MG UNK 02/06/2020 12:00:00 AM EST 1.0 {tablet_a s_needed} active Phenergan 25 MG eCW1 ([facility]) Dicyclomine Hydrochloride 20 MG Oral Tablet Dicyclomin e HCl 20 MG Dicyclomine HCl 20 MG 02/06/2020 12:00:00 AM EST 1.0 {tablet} ac tive Dicyclomine HCl 20 MG eCW1 ([facility]) Phenergan 25 MG UNK 02/06/2020 12:00:00 AM EST 1.0 {tablet_a s_needed} active Phenergan 25 MG eCW1 ([facility]) Phenergan 25 MG UNK 02/06/2020 12:00:00 AM EST 1.0 {tablet_a s_needed} active Phenergan 25 MG eCW1 ([facility]) Phenergan 25 MG UNK 02/06/2020 12:00:00 AM EST 1.0 {tablet_a s_needed} active Phenergan 25 MG eCW1 ([facility]) Phenergan 25 MG UNK 02/06/2020 12:00:00 AM EST 1.0 {tablet_a s_needed} active Phenergan 25 MG eCW1 ([facility]) Dicyclomine Hydrochloride 20 MG Oral Tablet Dicyclomin e HCl 20 MG Dicyclomine HCl 20 MG 02/06/2020 12:00:00 AM EST 1.0 {tablet} ac tive Dicyclomine HCl 20 MG eCW1 ([facility]) Phenergan 25 MG UNK 02/06/2020 12:00:00 AM EST 1.0 {tablet_a s_needed} active Phenergan 25 MG eCW1 ([facility]) Phenergan 25 MG UNK 02/06/2020 12:00:00 AM EST 1.0 {tablet_a s_needed} active Phenergan 25 MG eCW1 ([facility]) Phenergan 25 MG UNK 02/06/2020 12:00:00 AM EST 1.0 {tablet_a s_needed} active Phenergan 25 MG eCW1 ([facility]) Phenergan 25 MG UNK 02/06/2020 12:00:00 AM EST 1.0 {tablet_a s_needed} active Phenergan 25 MG eCW1 ([facility]) Phenergan 25 MG UNK 02/06/2020 12:00:00 AM EST 1.0 {tablet_a s_needed} active Phenergan 25 MG eCW1 ([facility]) Dicyclomine Hydrochloride 20 MG Oral Tablet Dicyclomin e HCl 20 MG Dicyclomine HCl 20 MG 02/06/2020 12:00:00 AM EST 1.0 {tablet} ac tive Dicyclomine HCl 20 MG eCW1 ([facility]) Dicyclomine Hydrochloride 20 MG Oral Tablet Dicyclomin e HCl 20 MG Dicyclomine HCl 20 MG 02/06/2020 12:00:00 AM EST 1.0 {tablet} ac tive Dicyclomine HCl 20 MG eCW1 ([facility]) Phenergan 25 MG UNK 02/06/2020 12:00:00 AM EST 1.0 {tablet_a s_needed} active Phenergan 25 MG eCW1 ([facility]) perflutren lipid microsphere (DEFINITY) 8.476 mg in 10 mL NS IV 01/10/2020 08:42:45 AM EST Intravenous active 2-10 mL, Intravenous, Once as needed, to be used when clinically necessary, Starting Wed01/10/20 at 0842, For 1 dose
To be given with ag equipment field service technician at bedside for exam 1. Activate in VIALMIX agitator for 45 seconds 2. Withdraw 1.3 ml of activated perflutren suspension and dilute in 8.7 ml of 0.9% NS (Total volume = 10 ml) 3. Inject 2 ml slowly over 30 seconds. Repeat in 2 ml aliquots as needed. DO NOT EXCEED 10 ML TOTAL DOSE!
[facility] Medication administered onsite Potassium Chloride Thais ER 10 MEQ Potassium Chloride Thais ER 10 MEQ 12/25/2019 12:00:00 AM EDT 1.0 {tablet_with_food} active Potassium Chloride Thais ER 10 MEQ eCW1 ([facility]) Potassium Chloride Thais ER 10 MEQ Potassium Chloride Thais ER 10 MEQ 12/25/2019 12:00:00 AM EDT 1.0 {tablet_with_food} active Potassium Chloride Thais ER 10 MEQ eCW1 ([facility]) Potassium Chloride Thais ER 10 MEQ Potassium Chloride Thais ER 10 MEQ 12/25/2019 12:00:00 AM EDT 1.0 {tablet_with_food} active Potassium Chloride Thais ER 10 MEQ eCW1 ([facility]) Potassium Chloride Thais ER 10 MEQ Potassium Chloride Thais ER 10 MEQ 12/25/2019 12:00:00 AM EDT 1.0 {tablet_with_food} active Potassium Chloride Thais ER 10 MEQ eCW1 ([facility]) Potassium Chloride Thais ER 10 MEQ Potassium Chloride Thais ER 10 MEQ 12/25/2019 12:00:00 AM EDT 1.0 {tablet_with_food} active Potassium Chloride Thais ER 10 MEQ eCW1 ([facility]) Potassium Chloride Thais ER 10 MEQ Potassium Chloride Thais ER 10 MEQ 12/25/2019 12:00:00 AM EDT 1.0 {tablet_with_food} active Potassium Chloride Thais ER 10 MEQ eCW1 ([facility]) Potassium Chloride Thais ER 10 MEQ Potassium Chloride Thais ER 10 MEQ 12/25/2019 12:00:00 AM EDT 1.0 {tablet_with_food} active Potassium Chloride Thais ER 10 MEQ eCW1 ([facility]) Potassium Chloride Thais ER 10 MEQ Potassium Chloride Thais ER 10 MEQ 12/25/2019 12:00:00 AM EDT 1.0 {tablet_with_food} active Potassium Chloride Thais ER 10 MEQ eCW1 ([facility]) Potassium Chloride Thais ER 10 MEQ Potassium Chloride Thais ER 10 MEQ 12/25/2019 12:00:00 AM EDT 1.0 {tablet_with_food} active Potassium Chloride Thais ER 10 MEQ eCW1 ([facility]) Potassium Chloride Thais ER 10 MEQ Potassium Chloride Thais ER 10 MEQ 12/25/2019 12:00:00 AM EDT 1.0 {tablet_with_food} active Potassium Chloride Thais ER 10 MEQ eCW1 ([facility]) Potassium Chloride Thais ER 10 MEQ Potassium Chloride Thais ER 10 MEQ 12/25/2019 12:00:00 AM EDT 1.0 {tablet_with_food} active Potassium Chloride Thais ER 10 MEQ eCW1 ([facility]) Potassium Chloride Thais ER 10 MEQ Potassium Chloride Thais ER 10 MEQ 12/25/2019 12:00:00 AM EDT 1.0 {tablet_with_food} active Potassium Chloride Thais ER 10 MEQ eCW1 ([facility]) Triamcinolone Acetonide 0.001 MG/MG Oral Paste Triamci nolone Acetonide 0.1 % Triamcinolone Acetonide 0.1 % 12/21/2019 12:00:00 AM EDT active Triamcinolone Acetonide 0.1 % eCW1 ([facility]) Triamcinolone Acetonide 0.001 MG/MG Oral Paste Triamci nolone Acetonide 0.1 % Triamcinolone Acetonide 0.1 % 12/21/2019 12:00:00 AM EDT active Triamcinolone Acetonide 0.1 % eCW1 ([facility]) Potassium Chloride 20 MEQ Potassium Chloride 20 MEQ 12/21/2019 1 2:00:00 AM EDT 1.0 {packet_with_food} active P otassium Chloride 20 MEQ eCW1 ([facility]) Triamcinolone Acetonide 0.001 MG/MG Oral Paste Triamci nolone Acetonide 0.1 % Triamcinolone Acetonide 0.1 % 12/21/2019 12:00:00 AM EDT active Triamcinolone Acetonide 0.1 % eCW1 ([facility]) Triamcinolone Acetonide 0.001 MG/MG Oral Paste Triamci nolone Acetonide 0.1 % Triamcinolone Acetonide 0.1 % 12/21/2019 12:00:00 AM EDT active Triamcinolone Acetonide 0.1 % eCW1 ([facility]) Triamcinolone Acetonide 0.001 MG/MG Oral Paste Triamci nolone Acetonide 0.1 % Triamcinolone Acetonide 0.1 % 12/21/2019 12:00:00 AM EDT suspended Triamcinolone Acetonide 0.1 % eCW1 ([facility]) Triamcinolone Acetonide 0.001 MG/MG Oral Paste Triamci nolone Acetonide 0.1 % Triamcinolone Acetonide 0.1 % 12/21/2019 12:00:00 AM EDT active Triamcinolone Acetonide 0.1 % eCW1 ([facility]) Triamcinolone Acetonide 0.001 MG/MG Oral Paste Triamci nolone Acetonide 0.1 % Triamcinolone Acetonide 0.1 % 12/21/2019 12:00:00 AM EDT active Triamcinolone Acetonide 0.1 % eCW1 ([facility]) Potassium Chloride 20 MEQ Potassium Chloride 20 MEQ 12/21/2019 1 2:00:00 AM EDT 1.0 {packet_with_food} active P otassium Chloride 20 MEQ eCW1 ([facility]) Potassium Chloride 20 MEQ Potassium Chloride 20 MEQ 12/21/2019 1 2:00:00 AM EDT 1.0 {packet_with_food} active P otassium Chloride 20 MEQ eCW1 ([facility]) Triamcinolone Acetonide 0.001 MG/MG Oral Paste Triamci nolone Acetonide 0.1 % Triamcinolone Acetonide 0.1 % 12/21/2019 12:00:00 AM EDT active Triamcinolone Acetonide 0.1 % eCW1 ([facility]) Potassium Chloride 20 MEQ Potassium Chloride 20 MEQ 12/21/2019 1 2:00:00 AM EDT 1.0 {packet_with_food} active P otassium Chloride 20 MEQ eCW1 ([facility]) Triamcinolone Acetonide 0.001 MG/MG Oral Paste Triamci nolone Acetonide 0.1 % Triamcinolone Acetonide 0.1 % 12/21/2019 12:00:00 AM EDT active Triamcinolone Acetonide 0.1 % eCW1 ([facility]) Triamcinolone Acetonide 0.001 MG/MG Oral Paste Triamci nolone Acetonide 0.1 % Triamcinolone Acetonide 0.1 % 12/21/2019 12:00:00 AM EDT active Triamcinolone Acetonide 0.1 % eCW1 ([facility]) Triamcinolone Acetonide 0.001 MG/MG Oral Paste Triamci nolone Acetonide 0.1 % Triamcinolone Acetonide 0.1 % 12/21/2019 12:00:00 AM EDT active Triamcinolone Acetonide 0.1 % eCW1 ([facility]) Triamcinolone Acetonide 0.001 MG/MG Oral Paste Triamci nolone Acetonide 0.1 % Triamcinolone Acetonide 0.1 % 12/21/2019 12:00:00 AM EDT active Triamcinolone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 36.0-47.0 HEMATOCRIT eCW1 ([facility]) 27.8 27.0-33.0 MEAN CORPUSCULAR HEMOGLOB IN eCW1 ([facility]) 33.2 32.0-36.5 MEAN CORPUSCULAR HGB CONC eCW1 ([facility]) 83.9 80.0-96.0 MEAN CORPUSCULAR VOLUME e CW1 ([facility]) 328 150-450 PLATELET COUNT, AUTOMATED eCW1 ([facility]) 67.0 36.0-66.0 NEUTROPHILS % eCW1 ([facility]) 13.8 11.5-14.5 RED CELL DISTRIBUTION WID TH eCW1 ([facility]) 0.3 0.0-1.0 BASO % eCW1 ([facility]) 24.5 24.0-44.0 LYMPH % eCW1 ([facility]) 1.8 0.0-3.0 EOS % eCW1 ([facility]) 5.9 2.0-8.0 MONO % eCW1 ([facility]) 0.8 0.0-0.8 MONO # eCW1 ([facility]) 0.3 0.0-0.5 EOS # eCW1 ([facility]) 3.4 1.5-5.0 LYMPH # eCW1 ([facility]) 9.2 1.5-8.5 NEUTROPHILS # eCW1 ([facility]) 0.0 0.0-0.2 BASO # eCW1 ([facility]) ID Date Data Source [id number] 07/03/2020 12:48:00 PM EDT [facility] 1 OrderSheet [facility] Emergency Department [address] [place] [address] Phone #: ext- [phone] 07/03/2020 12:47 Patient: SUJEY DOTY Sex: F : 1970 Age: 49yWEIGHT:41.2 kg (S) HEIGHT:57 inches (S) BMI:19.7ALLERGIES: Penicillins, Sulfa Antibiotics, Tramadol, Trimethoprim, VancomycinCHIEF COMPLAINT: dyspneaDIAGNOSIS: BronchitisLAB ORDERSOrder Description Priority Entered Acknowledged InitialedDIAGNOSTIC STUDY ORDERSOrder Description Priority Entered Acknowledged InitialedMEDICATION/IV/DRIP/FLUID ORDERSOrder Description Priority Entered Acknowledged InitialedDuoNeb 3 mL X2 13:12 07/03/2020 13:24 Deion,Doses (Filtered): 6 Tono Carrizales (3 mL X2 PA;Doses)Dexamethasone 13:12 07/03/2020 13:25 Deion,PO 10mg Tono Barth RN PA;Toradol IM 30 mg 13:22 07/03/2020 13:36 Tono Albarran RN PA;GENERAL ORDERSOrder Description Priority Entered Acknowledged Initialed[Electronically signed by Concha Fisher R.N. (14:03 07/03/2020)][Electronically signed by Tono Chacko (21:22 07/04/2020)][Electronically locked by Concha Fisher R.N. (14:07/03/2020)] Name Value Range Interpretation Code Description Data Teresa rce(s) Supporting Document(s) ID Date Data Source [id number] 07/03/2020 12:48:00 PM EDT [facility] 1 Medication Reconciliation Report [facility] Emergency Department [address] [place] [address] Phone #: ext- [phone] 07/03/2020 12:47 Patient: SUJEY DOTY Sex: F : 1970 Age: 49yWeight: 41.2 kgHeight/Length: 57 in.BMI: 19.7ALLERGIES: Penicillins, Sulfa Antibiotics, Tramadol, Trimethoprim, VancomycinThe patient's Home Medications are listed below:CONTINUE TAKING THE FOLLOWING MEDICATIONS: Estradiol Oral (0.5 mg) 1 tablet, at bedtime Gabapentin Oral 300 mg, 3x a day hydrOXYzine HCl Oral (50 mg) 1 tablet, 2x a day, anxiety, prn Omeprazole Oral (40 mg) 1 capsule, at bedtime Ondansetron HCl Oral (4 mg) 1 tablet, 4x a day, nausea; vomiting, prn Promethazine HCl Oral (25 mg) 1 tablet, q12h, nausea; vomiting, prn QUEtiapine Fumarate Oral (300 mg) 1/2 tablet, at bedtime Sennosides Oral (8.6 mg), 2x a day, constipation, prn Suboxone Sublingual (8-2 mg), 2x a day Venlafaxine HCl ER Oral (150 mg) 1 tablet, at bedtimeThe source(s) of the original Home Medication information:Not obtained.The following Medications were given to the patient in the Emergency Department:Duoneb [Neb Tx] Neb TX 2 unit dose, administered: 13:24 07/03/2020examethasone [PO] PO 10 mg, administered: 13:25 07/03/2020 2 Medication Reconciliation Report [facility] Emergency Department [address] [place] [address] Phone #: ext- [phone] 07/03/2020 12:47 Patient: SUJEY DOTY Sex: F : 1970 Age: 49yToradol [IM] IM 30 mg, administered: 13:36 07/03/2020The following Medications were prescribed to the patient:azithromycin 250 mg tablet -- Take 2 tablets on the first day then one tablet daily for 4 days, totalduration is 5 days. Dispense 6 tablet. Refills: 0. Substitution permitted.[facility] [employer] [address] ; [place] [address]. .prednisone 20 mg tablet Take 2 tablet once a day with meals for 5 days -- Dispense 10 tablet. Refills: 0.Substitution permitted.[facility] [employer] [address] ; [place] [address]. .albuterol sulfate HFA 90 mcg/actuation aerosol inhaler Inhale 2 puff four times a day -- Dispense 8.5gram. Refills: 0. Substitution permitted.[facility] [employer] [facility] [address] [place] [address] ; [place] [address]. .ketorolac 10 mg tablet Take 1 tablet four times a day for 5 days -- Dispense 20 tablet. Refills: 0.Substitution permitted.[facility] [employer] [address] ; [place] [address]. . -- LONI Johnson Name Value Range Interpretation Code Description Data Teresa rce(s) Supporting Document(s) ID Date Data Source [id number] 07/03/2020 12:48:00 PM EDT [facility] 1 Medication Administration Record [facility] Emergency Department [address] [place] [address] Phone #: ext- [phone] 07/03/2020 12:47 Patient: SUJEY DOTY Sex: F : 1970 Age: 49yWeight: 41.2 kgHeight/Length: 57 inBMI: 19.7ALLERGIES: Penicillins, Sulfa Antibiotics, Tramadol, Trimethoprim, Vancomycin Date/Time Medication Administered Medication OrderedGiven DUONEB [NEB TX] DuoNeb 3 mL X2 Doses (Filtered):13:24 07/03/2020 Dose: 2 unit dose Neb TX 6 mL (3 mL X2 Doses)Lary Albarran RNGiven DEXAMETHASONE [PO] Dexamethasone PO 10mg13:25 07/03/2020 Dose: 10 mg POLaFLary maldonado RNGiven TORADOL [IM] (KETOROLAC Toradol IM 30 mg13:36 07/03/2020 TROMETHAMINE)Lary Albarran RN Dose: 30 mg IM Name Value Range Interpretation Code Description Data Teresa rce(s) Supporting Document(s) ID Date Data Source [id number] 07/03/2020 12:48:00 PM EDT [facility] 1 General Instructions [facility] Emergency Department [address] [place] [address] Phone #: ext- [phone] 07/03/2020 12:47 Patient: SUJEY DOTY Sex: F : 1970 Age: 49y Acute bacterial bronchitis.INSTRUCTIONS Avoid tobacco smoke. Warnings: Further evaluation is necessary. It is very important to follow up with a healthcare provider. GENERAL WARNINGS: Return or contact your physician immediately if your condition worsens or changes unexpectedly, if not improving as expected, or if other problems arise. SPECIFICALLY, return if you develop chest pain; or if there is worsening of the difficulty breathing. Your Current Medications: Your current home medications have been reviewed. CONTINUE TAKING THE FOLLOWING MEDICATIONS: Estradiol Oral : Tablet 0.5 mg, 1 tablet, at bedtime. Gabapentin Oral : 300 mg 3x a day. hydrOXYzine HCl Oral : Tablet 50 mg, 1 tablet 2x a day, prn, anxiety. Omeprazole Oral : Capsule Delayed Release 40 mg, 1 capsule, at bedtime. Ondansetron HCl Oral : Tablet 4 mg, 1 tablet 4x a day, prn, nausea; vomiting. Promethazine HCl Oral : Tablet 25 mg, 1 tablet q12h, prn, nausea; vomiting. QUEtiapine Fumarate Oral : Tablet 300 mg, 1/2 tablet, at bedtime. Sennosides Oral : Tablet 8.6 mg, 2x a day, prn, constipation. Suboxone Sublingual : Film 8-2 mg, 2x a day. Venlafaxine HCl ER Oral : Tablet Extended Release 24 Hour 150 mg, 1 tablet, at bedtime. Prescription Medications: azithromycin 250 mg tablet -- Take 2 tablets on the first day then one tablet daily for 4 days, total duration is 5 days. Dispense 6 tablet. Refills: 0. Substitution permitted. [employer] [place] [address]. . prednisone 20 mg tablet Take 2 tablet once a day with meals for 5 days -- Dispense 10 tablet. Refills: 0. Substitution permitted. [employer] [place] [address]. . albuterol sulfate HFA 90 mcg/actuation aerosol inhaler Inhale 2 puff four times a day -- Dispense 8.5 gram. Refills: 0. Substitution permitted. [employer] [place] [id number]. Phone: [phone] General Instructions [facility] Emergency Department [address] [place] [address] Phone #: ext- [phone] 07/03/2020 12:47 Patient: SUJEY DOTY Sex: F : 1970 Age: [id number] .ketorolac 10 mg tablet Take 1 tablet four times a day for 5 days -- Dispense 20 tablet. Refills: 0.Substitution permitted.Pharmacy - [facility] [address] [facility] ; [place], [place] [id number]. .Follow-up:Follow up with your doctor in three days if not better. Reason for referral: evaluation and treatment.Summary of care provided to patient.Understanding of the discharge instructions verbalized by patient. ADDITIONAL INFORMATIONBronchitis, Antibiotic Treatment (Adult) 3 General Instructions [facility] Emergency Department [address] [place] [address] Phone #: ext- [phone] 07/03/2020 12:47 Patient: SUJEY DOTY Sex: F : 1970 Age: 49yBronchitis is an infection of the air passages (bronchial tubes) in your lungs. It often occurs when youhave a cold. This illness is contagious during the first few days and is spread through the air bycoughing and sneezing, or by direct contact (touching the sick person and then touching your owneyes, nose, or mouth).Symptoms of bronchitis include cough with mucus (phlegm) and low-grade fever. Bronchitis usuallylasts 7 to 14 days. Mild cases can be treated with simple home remedies. More severe infection istreated with an antibiotic.Home careFollow these guidelines when caring for yourself at home: If your symptoms are severe, rest at home for the first 2 to 3 days. When you go back to your usual activities, don't let yourself get too tired. Don't smoke. Also stay away from secondhand smoke. You may use gcvh-fuo-cmdlbej medicines to control fever or pain, unless another medicine was prescribed. If you have chronic liver or kidney disease or have ever had a stomach ulcer or gastrointestinal bleeding, talk with your healthcare provider before using these medicines. Also talk to your provider if you are taking medicine to prevent blood clots. Aspirin should never be given to anyone younger than 18 who is ill with a viral infection or fever. It may cause severe liver or brain damage. Your appetite may be low, so a light diet is fine. Stay well hydrated by drinking 6 to 8 glasses of fluids per day. This includes water, soft drinks, sports drinks, juices, tea, or soup. Extra fluids will help loosen mucus in your nose and lungs. Jbrp-zno-yliowpo cough, cold, and sore-throat medicines will not shorten the length of the illness, but they may be helpful to reduce your symptoms. Don't use decongestants if you have high blood pressure. Finish all antibiotic medicine. Do this even if you are feeling better after only a few days.Follow-up careFollow up with your healthcare provider, or as advised. If you had an X-ray or ECG(electrocardiogram), a specialist will review it. You will be told of any new test results that may affectyour care.If you are age 65 or older, if you smoke, or if you have a chronic lung disease or condition that affectsyour immune system, ask your healthcare provider about getting a pneumococcal vaccine and ayearly flu shot (influenza vaccine). 4 General Instructions [facility] Emergency Department [address] [place] [address] Phone #: ext- [phone] 07/03/2020 12:47 Patient: SUJEY DOTY Sex: F : 1970 Age: 49yWhen to seek medical adviceCall your healthcare provider right away if any of these occur: Fever of 100.4F (38C) or higher, or as directed by your healthcare provider Coughing up more sputum Weakness, drowsiness, headache, facial pain, ear pain, or a stiff neckCall 911Call 911 if any of these occur. Coughing up blood Weakness, drowsiness, headache, or stiff neck that get worse Trouble breathing, wheezing, or pain with breathing [id number] [employer]. [address] [place] [address], [place] [address]. All rights reserved. This information is not intended as asubstitute for professional medical care. Always follow your healthcare professional's instructions. You have been given the following additional information: Bronchitis, Antibiotic Treatment (Adult) (Electronically signed by LONI Johnson 07/04/2020 21:22) Name Value Range Interpretation Code Description Data Teresa rce(s) Supporting Document(s) ID Date Data Source [id number] 07/03/2020 12:48:00 PM EDT [facility] 1 Clinical Report - Nurses [facility] Emergency Department [address] [place] [address] Phone #: ext- [phone] 07/03/2020 12:47 Patient: SUJEY DOTY Sex: F : 1970 Age: 49yTRIAGEArrived by EMS. Historian: EMS and patient.Acuity: LEVEL 3.Chief Complaint: SHORTNESS OF BREATH and DIFFICULTY BREATHING and (headache).Onset. (1 weeks ago). 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 SEPSIS SCREEN NEGATIVE.No suspected or confirmed signs of infection present.MINNIE COMA SCORE: 15- eyes open- spontaneous (4); best verbal response- oriented (5); bestmotor response- obeys commands (6). --12:59 07/03/20 Jhony Mccormick RN12:51 07/03/20. BP: 91/64. MAP: 73. HR: 106. RR: 16. O2 saturation: 95% on room air. Temp: 98.3 F(oral). Pain level now: 09/14. --12:59 07/03/20 Jhony Mccormick RN.Weight: 41.2 kg stated. Height/Length: 57 inches Per Patient. BMI: 19.7. --12:51 07/03/20 Jhony Mccormick RN.MedicationsEstradiol Oral (Tablet 0.5 mg) 1 tablet, at bedtime. Gabapentin Oral 300 mg, 3x a day. hydrOXYzine HCl Oral (Tablet 50 mg) 1 tablet, 2x a day as needed, anxiety. Omeprazole Oral (Capsule Delayed Release 40 mg) 1 capsule, at bedtime. --12:54 07/03/20 TERRY Luevano Ondansetron HCl Oral (Tablet 4 mg) 1 tablet, 4x a day as needed, nausea; vomiting. Promethazine HCl Oral (Tablet 25 mg) 1 tablet, q12h as needed, nausea; vomiting. QUEtiapine Fumarate Oral (Tablet 300 mg) 1/2 tablet, at bedtime. Sennosides Oral (Tablet 8.6 mg), 2x a day as needed, constipation. Suboxone Sublingual (Film 8-2 mg), 2x a day. Venlafaxine HCl ER Oral (Tablet Extended Release 24 Hour 150 mg) 1 tablet, at bedtime. --12:5407/03/20 Jhony Mccormick RN. 2 Clinical Report - Nurses [facility] Emergency Department [address] [place] [address] Phone #: ext- [phone] 07/03/2020 12:47 Patient: SUJEY DOTY Sex: F : 1970 Age: 49yAllergiesPenicillins.Sulfa Antibiotics.Tramadol.Trimethoprim.Vancomycin. Severe --12:54 07/03/20 Jhony Mccormick RN.PROBLEMS:Epidural abcess.Hypertension.Back Pain.Changed Mental Statu s.Endocarditis.Hypokalemia.Sepsis (disorder).Sternoclavicular oseteomylitis.Substance abuse.MRSA.Narcotic Dependence.Pneumonia.Hep C. --13:04 07/03/20 Lary Albarran RN.ADDITIONAL SURGERIES:.Hysterectomy. --12:55 07/03/20 Jhony Mccormick RN.HistoryPAST MEDICAL HX: Immunizations: up-to-date. The patient has had a hysterectomy.SOCIAL HX: Heavy tobacco smoker (cigarette)- less than 1 pack per day. Occasional drug use:marijuana. Is a recovering addict. Recently used drugs just prior to arrival. (hasn't injected drugs for 2months). No alcohol use. The patient was offered HIV testing but declined and hepatitis C testing butdeclined. She has not traveled outside the [place]Infectious disease exposure: No infectious disease exposure. The patient was not exposed to Coronavirus.SELF HARM ASSESSMENT: Self harm assessment was performed. The patient answered "no" to thequestion(s) "Have you recently felt down, depressed, or hopeless?", "Do you have thoughts of harming orkilling yourself?", "Do you have a plan for harming or killing yourself?", "Have you recently had thoughtsabout harming or killing others?", "Do you have any dangerous items in your possession?", "Have younoticed less interest or pleasure in doing things?", "Are you here because you tried to hurt yourself?" and"Have you ever tried to hurt yourself before today?".ABUSE ASSESSMENT: No report of abuse.NUTRITIONAL RISK ASSESSMENT: The nutritional risk assessment revealed no deficiencies. 3 Clinical Report - Nurses [facility] Emergency Department [address] [place] [address] Phone #: ext- [phone] 07/03/2020 12:47 Patient: SUJEY DOTY Sex: F : 1970 Age: 49y FUNCTIONAL ASSESSMENT: Functional assessment: no impairments noted. LEARNING NEEDS ASSESSMENT: The learning needs assessment revealed no barriers. FALL RISK ASSESSMENT: Fall risk assessment completed. No risk factors identified. SKIN INTEGRITY ASSESSMENT: Skin integrity risk assessment completed. No skin integrity risk identified. --12:59 07/03/20 Jhony Mccormick RN. Interventions To treatment room. --12:59 07/03/20 Jhony Mccormick RN.PHYSICAL AEBRTAYZUA91:11 07/03/20. To room via stretcher.GENERAL / NEURO / PSYCH: Alert. Oriented X 4. Appears in no acute distress.HEENT: Mucous membranes are pink.RESPIRATORY: No respiratory distress. Respirations not labored. Chest wall tenderness. Breathsounds within normal limits.CVS: Normal sinus rhythm noted. Capillary refill less than 2 seconds.GI / : Abdomen soft and nontender. Bowel sounds within normal limits.SKIN: Skin is warm and dry. --13:36 07/03/20 Lary Albarran RN.NURSING PROGRESS NOTESCardiac monitor, NIBP monitor and pulse oximeter placed on patient; secured entrance monitor- Lead II; monitoralarms on. Patient gowned. Head of bed elevated. Reassurance given. Call light placed in reach.Side rails up x 2. Bed placed in lowest position. Brakes of bed on. Patient ready for evaluation- EDphysician and PA notified. --12:59 07/03/20 Jhony Mccormick RN 13:24 07/03/2020 Duvanessa Ott [place] 2 unit dose given. Given by the nurse. Allergies verified and confirmed 5 rights. Information reviewed with patient including reason for taking this medication. Verbalizes understanding. --13:24 07/03/20 Lary Albarran RN 13:25 07/03/2020 Dexamethasone PO 10 mg given. Allergies verified and confirmed 5 rights. Information reviewed with patient including reason for taking this medication. Verbalizes understanding. --13:25 07/03/20 Lary Albarran RN 13:36 07/03/2020 Toradol (Ketorolac Tromethamine) IM 30 mg given. Given in the right gluteus mary. Allergies verified and confirmed 5 rights. Information reviewed with patient including reason for taking this medication. Verbalizes understanding. --13:36 07/03/20 Lary Albarran RN.DISPOSITION / DISCHARGE Departure time: late entry - 13:57 07/03/2020. Condition at departure: stable. No learning barriers present. Discharge instructions provided and reviewed with the patient. 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 Reviewed medication(s) side effects, precautions, dosing and course information. Prescription(s) sent electronically to pharmacy (toradol, azithromycin, prednisone, albuterol). Patient verbalized understanding. Written instructions provided in [place]. The patient was discharged by the physician electrician's assistant. She was discharged home and unaccompanied at time of discharge. She left ambulatory and via taxi. Driving (taxi). --14:01 07/03/20 Concha Fisher R.N. 13:57 07/03/20. BP: 95/58. MAP: 70. HR: 106. RR: 18. O2 saturation: 95% on room air. Temp: 98.7 F (oral). Pain level now: 5/10. --14:01 07/03/20 Concha Fisher R.N. late entry - 14:00 07/03/20. ( PA aware of all VS and is okay with d/c.). --14:02 07/03/20 Concha Fisher R.N.Locked/Released at 07/03/2020 14:03 by Concha Fisher R.N. Name Value Range Interpretation Code Description Data Teresa rce(s) Supporting Document(s) ID Date Data Source [id number] 07/03/2020 12:48:00 PM EDT [facility] 1 Clinical Report - Physicians/Mid Levels [facility] Emergency Department [address] [place] [address] Phone #: ext- [phone] 07/03/2020 12:47 [id number] Sex: F : 1970 Age: 49y Time Seen: 12:59 07/03/2020. Arrived- By private vehicle. Historian- patient.HISTORY OF PRESENT ILLNESS Chief Complaint: DYSPNEA. This started 2 days ago; pt states she has had dyspnea for the past week and voices a headache started 2 days ago, she went to her PCP yesterday who ordered a chest xray along with labs and the chest xray was normal but the blood work was off and is still present. It was abrupt in onset and has been constant. The dyspnea is described as mild. The patient has had a cough and dyspnea on exertion. No sputum production, fever, sweating episodes, wheezing or chills. No chest pain or discomfort, calf pain, anxiety or dizziness. No tingling, numbness or palpitations. Similar symptoms previously. Patient has had similar symptoms once. Recent medical care: The patient was seen recently at another facility in a clinic.REVIEW OF SYSTEMSThe patient has not had weight loss. No muscle aches, eye irritation, sore throat, nasal discharge or sinusdrainage. No nausea, vomiting, abdominal pain, diarrhea or black stools. No bloody stools, headache,fainting episodes, difficulty with urination or excessive urination. No skin rash, enlarged lymph nodes orjoint pain.PAST HISTORYProblems:Epidural abcess.Hypertension.Back Pain.Changed Mental Status.Endocarditis.Hypokalemia.Sepsis (disorder).Sternoclavicular oseteomylitis.Substance abuse.MRSA.Narcotic Dependence.Pneumonia.Hep C. Additional Surgeries: . Hysterectomy. 2 Clinical Report - Physicians/Mid Levels [facility] Emergency Department [address] [place] [address] Phone #: ext- [phone] 07/03/2020 12:47 Patient: SUJEY DOTY Sex: F : 1970 Age: 49y Medications: Ondansetron HCl Oral (Tablet 4 mg) 1 tablet, 4x a day as needed, nausea; vomiting. Promethazine HCl Oral (Tablet 25 mg) 1 tablet, q12h as needed, nausea; vomiting. QUEtiapine Fumarate Oral (Tablet 300 mg) 1/2 tablet, at bedtime. Sennosides Oral (Tablet 8.6 mg), 2x a day as needed, constipation. Suboxone Sublingual (Film 8-2 mg), 2x a day. Venlafaxine HCl ER Oral (Tablet Extended Release 24 Hour 150 mg) 1 tablet, at bedtime. Estradiol Oral (Tablet 0.5 mg) 1 tablet, at bedtime. Gabapentin Oral 300 mg, 3x a day. hydrOXYzine HCl Oral (Tablet 50 mg) 1 tablet, 2x a day as needed, anxiety. Omeprazole Oral (Capsule Delayed Release 40 mg) 1 capsule, at bedtime. Allergies: Penicillins. Sulfa Antibiotics. Tramadol. Trimethoprim. Vancomycin. Severe.SOCIAL HISTORYHeavy tobacco smoker (cigarette)- less than 1 pack per day. Drug use: marijuana. Is a recovering addict.No alcohol use.PHYSICAL EXAMVital Signs: 07/03/2020 12:51 BP: 91/64. MAP: 73. HR: 106. RR: 16. O2 saturation: 95% on room air.Temp: 98.3 F. Pain level now: 7/10. Have been reviewed as abnormal. Ta chycardic. Oxygen saturationnormal.Appearance: Alert. No acute distress.Eyes: Pupils equal, round and reactive to light. Eyes normal inspection.ENT: Ears normal. Nose normal. Pharynx normal. Uvula midline.Neck: Normal inspection.CVS: Tachycardia. Heart sounds normal.Respiratory: No respiratory distress. Breath sounds normal.Abdomen: Soft and nontender.Back: Normal inspection.Skin: Skin warm and dry. Normal skin color. Normal skin turgor.Extremities: No lower extremity edema.Neuro: Oriented X 3.PROGRESS AND PROCEDURESCourse of Care: 13:47 Jul 03 2020. Evaluation after observation. (reviewed normal CXR and normallabs from yesterday and pt is agreeable with dx and tx plan.). Patient counseled in person regarding the patient's stable condition, diagnosis and need for follow- up. Patient agrees with plan of care. 13:47 Jul 03 2020. 3 Clinical Report - Physicians/Mid Levels [facility] Emergency Department [address] [place] [address] Phone #: [phone] nbn- [phone] 07/03/2020 12:47 Patient: SUJEY DOTY Sex: F : 1970 Age: 49y Disposition: Discharged home in good and improved condition (13:Jul 03 2020).CLINICAL IMPRESSION Acute bacterial bronchitis.INSTRUCTIONS Avoid tobacco smoke. Warnings: Further evaluation is necessary. It is very impor tant to follow up with a healthcare provider. GENERAL WARNINGS: Return or contact your physician immediately if your condition worsens or changes unexpectedly, if not improving as expected, or if other problems arise. SPECIFICALLY, return if you develop chest pain; or if there is worsening of the difficulty breathing. Your Current Medications: Your current home medications have been reviewed. CONTINUE TAKING THE FOLLOWING MEDICATIONS: Estradiol Oral : Tablet 0.5 mg, 1 tablet, at bedtime. Gabapentin Oral : 300 mg 3x a day. hydrOXYzine HCl Oral : Tablet 50 mg, 1 tablet 2x a day, prn, anxiety. Omeprazole Oral : Capsule Delayed Release 40 mg, 1 capsule, at bedtime. Ondansetron HCl Oral : Tablet 4 mg, 1 tablet 4x a day, prn, nausea; vomiting. Promethazine HCl Oral : Tablet 25 mg, 1 tablet q12h, prn, nausea; vomiting. QUEtiapine Fumarate Oral : Tablet 300 mg, 1/2 tablet, at bedtime. Sennosides Oral : Tablet 8.6 mg, 2x a day, prn, constipation. Suboxone Sublingual : Film 8-2 mg, 2x a day. Venlafaxine HCl ER Oral : Tablet Extended Release 24 Hour 150 mg, 1 tablet, at bedtime. Prescription Medications: azithromycin 250 mg tablet -- Take 2 tablets on the first day then one tablet daily for 4 days, total duration is 5 days. Dispense 6 tablet. Refills: 0. Substitution permitted. [employer] [address] [phone]. . prednisone 20 mg tablet Take 2 tablet once a day with meals for 5 days -- Dispense 10 tablet. Refills: 0. Substitution permitted. [employer] [address] ; [place], [place] [phone]. . albuterol sulfate HFA 90 mcg/actuation aerosol inhaler Inhale 2 puff four times a day -- Dispense 8.5 gram. Refills: 0. Substitution permitted. 4 Clinical Report - Physicians/Mid Levels [facility] Emergency Department [address] [place] [address] Phone #: ext- [phone] 07/03/2020 12:47 Patient: SUJEY DOTY Sex: F : 1970 Age: 49y [employer] [address] [phone]. . ketorolac 10 mg tablet Take 1 tablet four times a day for 5 days -- Dispense 20 tablet. Refills: 0. Substitution permitted. [employer] [address] [phone]. . Follow- up: Follow up with your doctor in three days if not better. Reason for referral: evaluation and treatment. Summary of care provided to patient. Understanding of the discharge instructions verbalized by patient.(Electronically signed by LONI Johnson 07/04/2020 21:22) Name Value Range Interpretation Code Description Data Teresa rce(s) Supporting Document(s) ID Date Data Source HEPATITIS C QUANT BY PCR 07/02/2020 12:00:00 AM EDT eCW1 ([facility]) Name Value Range Interpretation Code Description Data Teresa rce(s) Supporting Document(s) HCV Not Detected . HEPATITIS C QUANTIT ATION eCW1 ([facility]) TNP . Hepatitis C log10 eCW1 ([facility]) ID Date Data Source COMPLEMENT C4 07/02/2020 12:00:00 AM EDT eCW1 ([facility]) Name Value Range Interpretation Code Description Data Teresa rce(s) Supporting Document(s) 30 10-40 COMPLEMENT C4 eCW1 ([facility]) ID Date Data Source COMPLEMENT C3 07/02/2020 12:00:00 AM EDT eCW1 ([facility]) Name Value Range Interpretation Code Description Data Teresa rce(s) Supporting Document(s) 122 90-180 COMPLEMENT C3 eCW1 ([facility]) ID Date Data Source URINE CULTURE 06/17/2020 12:00:00 AM EDT eCW1 ([facility]) Name Value Range Interpretation Code Description Data Teresa rce(s) Supporting Document(s) URINE CULTURE eCW1 ([facility]) ID Date Data Source UA URINALYSIS 06/17/2020 12:00:00 AM EDT eCW1 ([facility]) Name Value Range Interpretation Code Description Data Teresa rce(s) Supporting Document(s) UA URINALYSIS eCW1 ([facility]) ID Date Data Source [id number] 04/30/2020 06:44:00 PM [facility] [address] [place] [address] PHONE: [phone] FAX: [phone] Name .................. : ROSALVA Soria Acct Number.................. : [id number] ROOM. ................. : TR-03 MR Number ................... : [id number] Stay type ............. : E/R Discharge Date......... ... : 04/28/20 Admit Date ......... : 04/28/20 Admit Phys .................... : [facility] Date of ....... : 1970 Family Phys ................... : [facility] Phone .................. : [phone] Age ................................ : 49 Film# .................. .:[id number] Sex ................................. : F Unsigned transcriptions are preliminary reports and do not represent a medical or legal document CHEST PORTABLE [id number] COMPLETE:04/28/20 19:12 [facility] 4818 Reason(s): possible estrellita overdose PORTABLE CHEST X-RAY: INDICATION: 49-year-old female. Possible drug overdose. TECHNIQUE: Portable upright frontal view of the chest was obtained. FINDINGS: The lungs are free of consolidation with no effusion or pneumothorax. The heart size is normal. The mediastinum and hilar vessels are also appropriate. No acute bony findings. Healed left rib fracture. IMPRESSION: No active cardiopulmonary process. Electronically Reviewed and Signed By Reilly Nieves MD , 04/30/20 18:44, LONA Transcribe Initials: MOO , Transcribe Date: 04/28/20 22:55, Dictation Date: Copy for: EMERGENCY DEPT via modem Copy for: 710 MED REC DISCHARGED Page 1 of 1 Name Value Range Interpretation Code Description Data Teresa rce(s) Supporting Document(s) ID Date Data Source [id number] 04/30/2020 09:08:00 [place] [address] RESPIRATORY CARE REPORT ==== ---------NAME------- NUMBER SEX AGE ADMIT DISC. XRAY# F/C ZAN Soria [id number] F 49 04/28/20 04/28/20 [id number] X6B E/R DATE OF : 1970 M/R# [id number] #: [id number] TR-03 LOCATION: EMERGENCY DEPT EKG 03164 COMP LETE:04/29/20 06:38 ED 13104 PHYSICIAN: CARI Name Value Range Interpretation Code Description Data Teresa rce(s) Supporting Document(s) ID Date Data Source [id number] 04/28/2020 04:02:00 PM [facility] 1 OrderSheet [facility] Emergency Department [address] [place] [address] Phone #: ext- [phone] 04/28/2020 16:02 Patient: SUJEY DOTY Sex: F : 1970 Age: 49yWEIGHT:45.3 kg (E) HEIGHT:60 inches (E) BMI:19.5ALLERGIES: Penicillins, Sulfa Antibiotics, Tramadol, Trimethoprim, VancomycinCHIEF COMPLAINT: drug overdoseDIAGNOSIS: Altered mental status, Hypokalemia, Opioid dependenceLAB ORDERSOrder Description Priority Entered Acknowledged InitialedCBC w Diff STAT 16:07 04/28/2020 16:20 Cari Razo Victoria Frank R.N. ;CMP STAT 16:04/28/2020 16:20 Cari Razo Victoria Frank R.N. ;TSH STAT 16:04/28/2020 16:20 Cari Razo Victoria Frank R.N. ;Urine Drug Screen STAT 16:07 04/28/2020 19:13 Cari Albarran Victoria Lisa RN ;Acetaminophen STAT 16:07 04/28/2020 16:20 Dung,Level Clay Vale R.N. ;Salicylate Level STAT 16:07 04/28/2020 16:20 Cari Razo Victoria Frank R.N. ;ETOH STAT 16:07 04/28/2020 16:20 Cari Razo Victoria Frank R.N. ;Urinalysis (Clean STAT 16:04/28/2020 19:12 Deion,Catch) Clay Vale RN ;Beta-HCG, Qual STAT 16:07 04/28/2020 16:20 Dung,Serum Clay Vale R.N. ;Venous Blood Gas STAT 16:04/28/2020 16:21 Cari Razo Victoria Frank R.N. ;CPK STAT 16:04/28/2020 16:21 Dung, 2 OrderSheet [facility] Emergency Department [address] [place] [address] Phone #: ext- [phone] 04/28/2020 16:02 [id number] Sex: F : 1970 Age: 49y Clay Vale R.N. ;Blood Culture STAT 16:20 04/28/2020 17:38 Deion,q10m X2 (Sched Clay Vale RN16:20 04/28/2020) ;Blood Culture STAT 16:20 04/28/2020 17:38 Deion,q10m X2 (Sched Clay Vale RN16:30 04/28/2020) ;Blood Culture STAT 18:17 04/28/2020 19:12 Deion,q10m X2 (Sched Clay Vale RN18:17 04/28/2020) ;Blood Culture STAT 18:17 04/28/2020 19:12 Deion,q10m X2 (Sched AnnetteomaClay kelly RN18:27 04/28/2020) ;COVID-19 CAH (Not STAT 18:51 04/28/2020 19:12 Deion,Symptomatic as Clay Vale RNDefined by [facility]) ;(04/28/20) (Unknownif Frist Test)(Hospitalized) (Not) (NotResident inCongregate CareSetting) (NotEmployed inHealthcare Setting)Lactic Acid STAT 18:51 04/28/2020 18:54 Cari Razo Victoria Frank R.N. ;DIAGNOSTIC STUDY ORDERSOrder Description Priority Entered Acknowledged InitialedChest Portable 1 STAT 16:07 04/28/2020 16:21 Dung,View Clay Vale R.N.(Oxygen?(No)) ; Reason for Study: possible estrellita overdoseCT Head W/O Cont STAT 18:37 04/28/2020 18:54 Dung,(Oxygen?(No)) Clay Vale R.N. ; Reason for Study: Altered Mental StatusMEDICATION/IV/DRIP/FLUID ORDERSOrder Description Priority Entered Acknowledged Initialed 3 OrderSheet [facility] Emergency Department [address] [place] [address] Phone #: ext- [phone] 04/28/2020 16:02 Patient: SUJEY DOTY Sex: F : 1970 Age: 49yAtivan IVP 2 mg 16:07 04/28/2020 Cancelled: Wrong Order 16:09(HIGH ALERT Clay Vale VictoriaMEDIFAISALION) ;Haldol IM 5 mg 16:07 04/28/2020 16:46 Mónica,(NOW) Clay Vale R.N. ;Ativan IM 2 mg 16:09 04/28/2020 16:46 Mónica(HIGH ALERT Clay ValeNEdMEDICATION, ;NOW)NS IV 1000 mL 16:21 04/28/2020 16:45 Levy,Bolus: : Bolus 1000 Clay ValedamL (X1) ;DuoNeb 3 mL X2 17:04 04/28/2020 17:12 Deion,Doses (Filtered): 6 Clay Vale Lary RNmL (3 mL X2 ;Doses)KCl IVPB 10 17:32 04/28/2020 17:41 Levy,meq/100mL Clay Vale ;Ativan IVP 1.5 mg 17:48 04/28/2020 Cancelled: Physician Order 19:15 Bret(HIGH ALERT Clay Vale RNMEDICATION) ;Vancomycin IVPB STAT 18:16 04/28/2020 Cancelled: Wrong Order 18:50(15 mg/kg) 700 mg Clay Vale Victoria(D5W, NOW) ;(Sched once for X1)(Sched 18:)Ativan IVP 1 mg 19:16 04/28/2020 19:19 Levy,(NOW x1, HIGH Bret Argueta RN; Carlos Verbal order per;MEDICATION) Diane Vale IV : 100 mL/hr 19:39 04/28/2020 20:04 Clay Ordonez RN ;GENERAL ORDERSOrder Description Priority Entered Acknowledged InitialedOne on One 16:07 04/28/2020 Cancelled: Verbal per Physician 16:28supervision Clay Vale Lisa RN ;NPO 16:07 04/28/2020 16:21 Sorbero, 4 OrderSheet [facility] Emergency Department [address] [place] [address] Phone #: ext- [phone] 04/28/2020 16:02 Patient: SUJEY DOTY Sex: F : 1970 Age: 49y Clay Vale R.N. ;Saline Lock 16:07 04/28/2020 16:20 Cari Razo Victoria Frank R.N. 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 ;Consult - 19:38 04/28/2020 19:50 StevenHospitalist Clay Vale RN ;Transfer: 19:38 04/28/2020 19:45 Cari Levy Victoria Wanda ;[Electronically signed by Teresa Levy (20:21 04/28/2020)][Electronically signed by Clay Vale (23:52 04/28/2020)][Electronically locked by Teresa Levy (20:21 04/28/2020)] Name Value Range Interpretation Code Description Data Teresa rce(s) Supporting Document(s) ID Date Data Source [id number] 04/28/2020 04:02:00 PM EST [facility] 1 Medication Reconciliation Report [facility] Emergency Department [address] [place] [address] Phone #: ext- [phone] 04/28/2020 16:02 Patient: SUJEY DOTY Sex: F : 1970 Age: 49yWeight: 45.3 kgHeight/Length: 60 in.BMI: 19.5ALLERGIES: Penicillins, Sulfa Antibiotics, Tramadol, Trimethoprim, VancomycinThe patient's Home Medications are listed below:THE FOLLOWING MEDICATIONS NEED TO BE RECONCILED: Dicyclomine HCl Oral (10 mg) 1 capsule, 3x a day, abdominal pain, prn Estradiol Oral (0.5 mg) 1 tablet, at bedtime Gabapentin Oral 300 mg, 3x a day Hydroxychloroquine Sulfate Oral (200 mg) 1 tablet, at bedtime hydrOXYzine HCl Oral (50 mg) 1 tablet, 2x a day, anxiety, prn Meloxicam Oral (15 mg) 1 tablet, daily Omeprazole Oral (40 mg) 1 capsule, at bedtime Ondansetron HCl Oral (4 mg) 1 tablet, 4x a day, nausea; vomiting, prn Promethazine HCl Oral (25 mg) 1 tablet, q12h, nausea; vomiting, prn QUEtiapine Fumarate Oral (300 mg) 1/2 tablet, at bedtime Sennosides Oral (8.6 mg), 2x a day, constipation, prn Suboxone Sublingual (8-2 mg), 2x a day Venlafaxine HCl ER Oral (150 mg) 1 tablet, at bedtime Ventolin HFA Inhalation 2 puffs, q6h, sob/wheezing, prnThe source(s) of the original Home Medication information: 2 Medication Reconciliation Report [facility] Emergency Department [address] [place] [address] Phone #: ext- [phone] 04/28/2020 16:02 Patient: SUJEY DOTY Sex: F : 1970 Age: 49ypatientThe following Medications were given to the patient in the Emergency Department:Sodium Chloride [IV] IV Fluids bolus 0, then 900 mL/hr, administered: 16:30 1Ativan [IM] IM 2 mg, administered: 16:46 04/28/2020HALDOL [IM] IM 5 mg, administered: 16:46 1Duoneb [Neb Tx] Neb TX 3 unit dose, administered: 17:07 04/28/2020KCL [IVPB] IVPB bolus 0, then 10 meq 100 mL/hr, administered: 17:41 1Ativan [IVP] IVP 1 mg, administered: 18:54 04/28/2020NS [IV] IV Fluids bolus 0, then 100 mL/hr, administered: 19:49 2 03/2020The following Medications were prescribed to the patient:None. Name Value Range Interpretation Code Description Data Teresa rce(s) Supporting Document(s) ID Date Data Source [id number] 04/28/2020 04:02:00 PM EST [facility] 1 Medication Administration Record [facility] Emergency Department [address] [place] [address] Phone #: ext- [phone] 04/28/2020 16:02 [id number] Sex: F : 1970 Age: 49yWeight: 45.3 kgHeight/Length: 60 inBMI: 19.5ALLERGIES: Trimethoprim, Tramadol, Sulfa Antibiotics, Penicillins, Vancomycin Date/Time Medication Administered Medication OrderedGiven HALDOL [IM] (HALOPERIDOL Haldol IM 5 mg (NOW)16:46 04/28/2020 LACTATE)Reilly Sales R.N. Dose: 5 mg IMGiven ATIVAN [IM] (LORAZEPAM) Ativan IM 2 mg (HIGH ALERT16:46 04/28/2020 Dose: 2 mg IM MEDICATION, NOW)Reilly Sales R.N.Start SODIUM CHLORIDE [IV] NS IV 1000 mL Bolus: : Bolus [id number] 04/28/2020 Dose: IV Fluids mL (X1)Teresa Lvey, Rate: 900 mL/hr over 1 hour(s)---- Dispensed: 1000 mL bagContinued Upon Disposition Site: #1 left EJ18:19 1PTeresa zuniga,Given DUONEB [NEB TX] DuoNeb 3 mL X2 Doses (Filtered):17:07 04/28/2020 Dose: 3 unit dose Neb TX 6 mL (3 mL X2 Doses)Lary Albarran RN----Stop18:17 1PTeresa zuniga,Start KCL [IVPB] KCl IVPB 10 meq/048nF81:41 04/28/2020 Dose: 10 meq IVPBPhTeresa shaffer, Rate: 100 mL/hr over 1 hour(s)---- Dispensed: 100 mL bagStop Site: #1 left EJ18:08 1PTeresa zuniga,Given ATIVAN [IVP] (LORAZEPAM) Ativan IVP 1 mg (NOW x1, HIGH18:54 04/28/2020 Dose: 1 mg IVP ALERT MEDICATION)Teresa Levy, Site: #1 left EJStart NS [IV] NS IV : 100 mL/hr19:49 04/28/2020 Dose: IV FluidsStsukhjinder Argueta RN Rate: 100 mL/hr---- Dispensed: 1000 mL bagStop Site: #1 left EJ20:04 04/28/2020angélica Argueta RN Name Value Range Interpretation Code Description Data Teresa rce(s) Supporting Document(s) ID Date Data Source [id number] 04/28/2020 04:02:00 PM [facility] 1 General Instructions [facility] Emergency Department [address] [place] [address] Phone #: ext [phone] 04/28/2020 16:02 Patient: SUJEY DOTY Sex: F : 1970 Age: 49yChanged mental status with confusion.Narcotic dependence (heroin) with intoxication with perceptual disturbance.Hypokalemia.(Electronically signed by Clay Vale 04/28/2020 23:52) Name Value Range Interpretation Code Description Data [facility](s) Supporting Document(s) ID Date Data Source [id number] 04/28/2020 04:02:00 PM [facility] 1 Clinical Report - Nurses [facility] Emergency Department [address] [place] [address] Phone #: ext [phone] 04/28/2020 16:02 Patient: SUJEY DOTY Sex: F : 1970 Age: 49yTRIAGE Arrived by private vehicle. Historian: patient. ( dropped off in hospital lobby. 6presents with overdose). Triage time: 16:04 04/28/2020. Acuity: LEVEL 3. Chief Complaint: DRUG OVERDOSE. Alert. This occurred today. ( used heroin today). 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 --16:17 04/28/20 Juan Luis Razo R.N. 16:04 04/28/20. BP: 127/108. MAP: 114. HR: 139. RR: 24. O2 saturation: 100% on room air. Pain level now: 0/10. --16:17 04/28/20 Juan Luis Razo R.N. late entry - 16:01 04/28/2020 Temp: 98.1 F. --20:18 04/28/20 LevyTeresa diaz. Weight: 45.3 kg estimated. Height/Length: 60 inches Estimated. BMI: 19.5. --16:03 04/28/20 Juan Luis Razo R.N. Medications Suboxone Sublingual (Film 8-2 mg), 2x a day. --19:35 04/28/20 Juan Luis Razo R.N. Estradiol Oral (Tablet 0.5 mg) 1 tablet, at bedtime. --19:36 04/28/20 Juan Luis Razo R.N. Gabapentin Oral 300 mg, 3x a day. --19:36 04/28/20 Juan Luis Razo R.N. Hydroxychloroquine Sulfate Oral (Tablet 200 mg) 1 tablet, at bedtime. --19:37 04/28/20 Juan Luis Razo R.N. Meloxicam Oral (Tablet 15 mg) 1 tablet, daily. --19:38 04/28/20 Juan Luis Razo R.N. Omeprazole Oral (Capsule Delayed Release 40 mg) 1 capsule, at bedtime. --19:38 04/28/20 Juan Luis Razo R.N. QUEtiapine Fumarate Oral (Tablet 300 mg) 1/2 tablet, at bedtime. --19:39 04/28/20 Juan Luis Razo R.N. Venlafaxine HCl ER Oral (Tablet Extended Release 24 Hour 150 mg) 1 tablet, at bedtime. --19:39 04/28/20 Juan Luis Razo R.N. Ventolin HFA Inhalation 2 puffs, q6h as needed, sob/wheezing. --19:41 04/28/20 Juan Luis Razo R.N. Dicyclomine HCl Oral (Capsule 10 mg) 1 capsule, 3x a day as needed, abdominal pain. --19:42 04/28/20 Juan Luis Rzao R.N. hydrOXYzine HCl Oral (Tablet 50 mg) 1 tablet, 2x a day as needed, anxiety. --19:43 04/28/20 Juan Luis Razo R.N. Ondansetron HCl Oral (Tablet 4 mg) 1 tablet, 4x a day as needed, nausea; vomiting. --19:44 04/28/20 Juan Luis Razo R.N. Promethazine HCl Oral (Tablet 25 mg) 1 tablet, q12h as needed, nausea; vomiting. --19:44 04/28/20 2 Clinical Report - Nurses [facility] Emergency Department [address] [place] [address] Phone #: ext- [phone] 04/28/2020 16:02 Patient: SUJEY DOTY Sex: F : 1970 Age: 4 9ySJuan Luis phillips R.N.Sennosides Oral (Tablet 8.6 mg), 2x a day as needed, constipation. --19:46 04/28/20 Juan Luis Razo R.N.The following entry was struck by Juan Luis Razo R.N., 19:26 (04/28/20) Reason - wrong value.Unknown. --17:37 04/28/20 Lary Albarran RN .AllergiesVancomycin. Severe --19:25 04/28/20 Juan Luis Razo R.N.Penicillins. --19:25 04/28/20 Juan Luis Razo R.N.Sulfa Antibiotics. --19:26 04/28/20 Juan Luis Razo R.N.Tramadol. --19:26 04/28/20 Juan Luis Razo R.N.Trimethoprim. --19:26 04/28/20 Juan Luis Razo R.N.The following entry was struck by Juan Luis Razo R.N., 19:25 (04/28/20) Reason - wrong value.None. --16:28 04/28/20 Juan Luis Razo R.N. .PROBLEMS:Hep C. --17:37 04/28/20 Lary Albarran, RNSepsis (disorder).MRSA.Endocarditis. --18:10 04/28/20 Lary Albarran, RNHypertension.Epidural abcess.Sternoclavicular oseteomylitis.Back Pain.Substance abuse. --19:30 04/28/20 Juan Luis Razo R.N.Pneumonia. --19:46 04/28/20 Juan Luis Razo R.N.Medication/allergy information source: the patient a nd patient's previous visit record. --16:17 04/28/20Juan Luis Razo R.N.ADDITIONAL SURGERIES:no known surgeries.HistorySOCIAL HX: Smoker - current status unknown. Alcohol use: unable to obtain. Drug use. Unable tooffer HIV testing due to the patient's condition and hepatitis C testing due to the patient's condition. Thepatient has not traveled outside the [place]Infectious disease exposure: No infectious disease exposure. It is unknown if the patient has been exposedto Coronavirus. Patient is not a known carrier of tuberculosis, hepatitis, HIV, MRSA or VRE. Patient is not aknown carrier of CRE.SELF HARM A SSESSMENT: Self harm assessment was performed. Unable to assess the patient in 3 Clinical Report - Nurses [facility] Emergency Department [address] [place] [address] Phone #: ext- [phone] 04/28/2020 16:02 Patient: SUJEY DOTY Sex: F : 1970 Age: 49y regard to the question(s) "Have you recently felt down, depressed, or hopeless?", "Do you have thoughts of harming or killing yourself?", "Do you have a plan for harming or killing yourself?" and "Have you recently had thoughts about harming or killing others?". ABUSE ASSESSMENT: No report of abuse. FALL RISK ASSESSMENT: Fall risk assessment completed. Risk factors identified include patient impairment of mobility, sensation and cognition. --16:17 04/28/20 Juan Luis Razo R.N. PAST MEDICAL HX: Last normal menstrual period- 10 years ago. --16:19 04/28/20 Juan Luis Razo R.N. Assessment The patient states feels the same. --16:17 04/28/20 Juan Luis Razo R.N. Interventions Identification band on patient. To treatment room. --16:17 04/28/20 Juan Luis Razo R.N. late entry - 16:04 04/28/20. Allergy band on patient. --19:52 04/28/20 Teresa Levy.PHYSICAL ASSESSMENT RESPIRATORY: Wheezes bilaterally; abnormal breath sounds left mid-lung posteriorly. SKIN: Numerous scarring and apparent needle tracks present to the face, scalp, neck, right arm, right leg and right foot, left arm, left leg and left foot, chest and abdomen (open sores, injection sites). --18:05 04/28/20 Teresa Levy.NURSING PROGRESS NOTES 16:05 04/28/20. Monitoring of patient in place. Patient gowned. Reassurance given. Two patient identifiers checked. Side rails up x 2. Bed placed in lowest position. Brakes of bed on. --16:29 04/28/20 Lary Albarran RN 16:04/28/2020 Site #1 started via IV in the left external jugular with an 20g angiocath, with aseptic techn ique and good blood return; one attempt. Blood drawn: rainbow set. Labeled in the presence of the patient and sent to the lab. Saline lock flushed with 10 mL saline (inserted by DR. Russell). --16:20 04/28/20 Juan Luis Razo R.N. 16:29 04/28/20. BP: 124/85. MAP: 98. HR: 122. RR: 22. O2 saturation: 94% on room air. --16:30 04/28/20 Lary Albarran RN 16:34 04/28/20. BP: 124/85. MAP: 98. HR: 119. RR: 21. O2 saturation: 99%. --16:35 04/28/20 [facility] Tech, AMANDA Masterson Tech1 Monitoring of patient in place. EKG time: (16:43 04/28/2020). EKG was performed by a tech. Patient gowned. Reassurance given. ( pt sleeping blood sugar 89. EKG done. Seizure precautions in place). --16:41 04/28/20 Teresa Levy 4 Clinical Report - Nurses [facility] Emergency Department [address] [place] [address] Phone #: ext- [phone] 04/28/2020 16:02 Patient: SUJEY DOTY Sex: F : 1970 Age: 49y16:30 04/28/2020 Started bag #1 1000 mL IV Fluids Sodium Chloride; at 900 mL/hr over 1 hour(s) via site#1 via IV pump. Allergies verified and confirmed 5 rights. IV patency established. IV site checked: no pain,redness, or swelling. IV flushed thoroughly pre- and post-medication administration. Information reviewedwith patient including reason for taking this medication, signs of allergic reaction and precautions.Verbalizes understanding. --16:45 04/28/20 Teresa Levy16:46 04/28/2020 Ativan (LORazepam) IM 2 mg given. --16:46 04/28/20 Reilly Sales R.N.16:46 04/28/2020 HALDOL (Haloperidol Lactate) IM 5 mg given. --16:46 04/28/20 Reilly Sales R.N.16:58 04/28/20. BP: 112/73. MAP: 86. HR: 112. RR: 19. O2 saturation: 100%. --16:59 2/21/21 Aleja Eisenberg, Aooe506:06 04/28/20. ( pt breathing sounds stridorous, o2 sat good 95-98%, MD aware and checked on pt,checked throat and no swelling noted. breath sounds clear bilaterally). --17:11 04/28/20 Lary Albarran RN17:07 04/28/2020 Duoneb Neb TX 3 unit dose given. Given by the nurse. Allergies verified and confirmed 5rights. Information reviewed with patient including reason for taking this medication. Verbalizesunderstanding. --17:12 Lary Albarran RNThe patient is sleeping. --17:32 04/28/20 Teresa Levy17:31 04/28/20. BP: 112/76. HR: 109. RR: 18. O2 saturation: 98%. --17:32 04/28/20 Teresa Levy17:41 04/28/2020 Started 10 meq of KCL IVPB in bag #1 100 mL; at 100 mL/hr over 1 hour(s) via site #1.via IV pump. Allergies verified and confirmed 5 rights. IV patency established. IV site checked: no pain,redness, or swelling. IV flushed thoroughly pre- and post-medication administration. Information reviewedwith patient including reason for taking this medication, signs of allergic reaction and precautions.Verbalizes unde rstanding. --17:41 04/28/20 Teresa Levy( PT thrashing around bed, throwing arms and twitching. making snoring sounds on inspiration. albuterol txgiven. 02 sats remain at 96-99% RALungs are diminished.). --18:00 04/28/20 Teresa Levy18:29 04/28/20. BP: 124/83. MAP: 96. HR: 112. RR: 20. O2 saturation: 96%. --18:29 04/28/20 Lary Albarran RN19:00 04/28/20. BP: 116/76. MAP: 89. HR: 109. RR: 20. O2 saturation: 92%. --19:00 04/28/20 Aleja Eisenberg, Metb2Uudtaxd returned from DC by stretcher with monitor, nurse and tech. --19:02 04/28/20 Lary Albarran RN 5 Clinical Report - Nurses [facility] Emergency Department [address] [place] [address] Phone #: ext- [phone] 04/28/2020 16:02 Patient: SUJEY DOTY Sex: F : 1970 Age: 49y 16 fr in/out catheterization placed in ED. Reason for indwelling catheter: retention and patient's decreased level of consciousness. During procedure hand hygiene observed and sterile equipment and aseptic technique used. Return of 100 mL rekha-colored clear urine. She tolerated proce dure well. --19:11 04/28/20 Lary Albarran RN 18:54 04/28/2020 Ativan (LORazepam) IVP 1 mg given over 3 minute(s) via site #1. Allergies verified and confirmed 5 rights. IV patency established. IV site checked: no pain, redness, or swelling. IV flushed thoroughly pre- and post-medication administration. IVP given by RN. Information reviewed with patient including reason for taking this medication, signs of allergic reaction, precautions and sedative warning. --19:19 04/28/20 Teresa Levy 18:57 04/28/20. Patient transported to DC by stretcher with monitor, nurse and tech. --19:02 04/28/20 Lary Albarran RN 19:25 04/28/20. BP: 125/76. MAP: 92. HR: 101. RR: 18. O2 saturation: 7%. 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 Total amount infused: 30 mL. --20:15 04/28/20 Teresa Levy 18:16 04/28/2020 Duoneb Neb TX Response: no adverse reaction. --20:16 04/28/20 LevyTeresa 18:17 04/28/2020 Duoneb Neb TX discontinued due to no change in patient condition. --20:17 04/28/20 Levy Teresa 18:19 04/28/2020 IV Fluids Sodium Chloride via IV site #1 Continued: at the rate of 1000 mL/hr. 0 mL remaining bag #2. IV patency established. IV site checked: no pain, redness, or swelling. IV flushed thoroughly. --20:19 04/28/20 Levy, Teresa 19:49 04/28/2020 Started bag #1 1000 mL IV Fluids NS; at 100 mL/hr via site #1 via IV pump. Allergies verified and confirmed 5 rights. IV patency established. IV site checked: no pain, redness, or swelling. IV flushed thoroughly pre- and post-medication administration. Information reviewed with patient including reason for taking this medication, signs of allergic reaction and precautions. Verbalizes understanding. --20:04 04/28/20 Bret Argueta RN 20:04 04/28/2020 IV Fluids NS via IV site #1 Discontinued: discontinued upon transfer. Total amount infused: 100 mL. IV patency established. IV site checked: no pain, redness, or swelling. IV flushed thoroughly. --20:04 04/28/20 Bret Argueta RN.DISPOSITION / DISCHARGE 20:00 04/28/20. BP: 115/81. MAP: 92. HR: 101. RR: 19. O2 saturation: 97%. Temp: 98.5 F. --20:01 04/28/20 [facility] Tech 20:00 04/28/2020 Site #[address] upon transfer; no signs of infection or infiltration. Flushed with 10 mL 6 Clinical Report - Nurses [facility] Emergency Department [address] [place] [address] Phone #: ext- [phone] 04/28/2020 16:02 Patient: SUJEY DOTY Sex: F : 1970 Age: 49y saline; flushes easily. --20:10 04/28/20 Teresa Levy Condition at departure: unchanged and stable. Transferred to [facility]. Visit overview, summary of care (CCDA), Emtala forms and Face Sheet provided to EMS and transfer facility via paper and fax (report given to Nancy Garcia RN). Transported via ambulance by peanut salter and EMS with monitor, IV and mask. Report was given to a nurse and an EMT/P via a phone call and in person. Report included information regarding patient's care, treatment and allergies, current vital signs and abnormal labs. Report included treatment information regarding medications given or pending; type and amount of IV fluids and medications infusing and total volume infused. Report was acknowledged. --20:12 04/28/20 Teresa Levy 20:08 04/28/20. BP: 125/76. HR: 103. RR: 18. O2 saturation: 97%. Temp: 98.5 F. Pain level now 0/10. --20:12 04/28/20 Teresa Levy Departure time: 20:13 04/28/2020. --20:13 04/28/20 Teresa Levy.Lo cked/Released at 04/28/2020 20:21 by Teresa Levy Name Value Range Interpretation Code Description Data Teresa rce(s) Supporting Document(s) ID Date Data Source [id number] 04/28/2020 04:02:00 PM EST [facility] 1 Clinical Report - Physicians/Mid Levels [facility] Emergency Department [address] [place] [address] Phone #: ext- [phone] 04/28/2020 16:02 Patient: SUJEY DOTY Sex: F : 1970 Age: 49y Time Seen: 16:04 04/28/2020. Arrived- By private vehicle. Historian- patient. History limited by altered mental status, poor comprehension, poor cooperation, vague historian and combativeness. Physical Exam limited by poor comprehension and poor cooperation. Disposition decision: 19:28 04/28/2020.HISTORY OF PRESENT ILLNESS Chief Complaint: patient dropped off by a car because she has been combative and shaking. This started today and is still present. At its maximum, severity described as moderate. When seen in the E.D., severity described as moderate. Modifying factors- (patient just injected herself with heroin and Estrellita prior to symptms). Not relieved by anything. No loss of appetite, weight loss, headache, visual disturbance or fatigue. No muscle aches. Denies sleep problem. No decreased urine output. She has had weakness.REVIEW OF SYSTEMSUnobtainable due to patient's altered mental status, poor comprehension and uncooperativeness.PAST HISTORYSee nurses notes. Additional Surgeries: no known surgeries. Medications: Unknown. Allergies: No ne.SOCIAL HISTORYCurrent every day heavy tobacco smoker- 1 pack per day. Heavy IV drug use: heroin. Recently useddrugs just prior to arrival. Opioid tolerant. Chronically receiving opioids daily. No alcohol use.ADDITIONAL NOTESThe nursing notes have been reviewed.PHYSICAL EXAMVital Signs: 04/28/2020 16:04 BP: 127/108. MAP: 114. HR: 139. RR: 24. O2 saturation: 100% on room air.Pain level now: 0/10. Oxygen saturation normal.Appearance: Anxious. (combative). Patient in moderate distress.Eyes: Pupils equal, round and reactive to light. Eyes normal inspection.ENT: Pharynx normal. No pharyngeal erythema or tonsillar exudate. (no vuvular edema).Neck: Normal inspection. Neck supple.CVS: Tachycardia. Heart sounds normal. Pulses normal. No extra heart sounds. 2 Clinical Report - Physicians/Mid Levels [facility] Emergency Department [address] [place] [address] Phone #: [phone] ext- [phone] 04/28/2020 16:02 Patient: SUJEY DOTY Sex: F : 1970 Age: 49y Respiratory: No respiratory distress. Breath sounds abnormal. Painless inspiration. Rhonchi present. Chest nontender. No crackles. Abdomen: No visible injury. Soft and nontender. Bowel sounds normal. No organomegaly. No mass. Back: Normal inspection. Skin: Skin warm and dry. Normal skin color. Normal skin turgor. (patient has excoriations on her chin and on the right clavicular area. she also has scabs on the right side of the neck). Extremities: Extremities exhibit normal ROM. No lower extremity edema. (needle track perez noted on the arms and right side of the neck). Neuro: Mildly altered mental status: hostile, combative and disoriented to time. Eyes open- spontaneous. Best verbal response- confused. Best motor response- obeys commands. No motor deficit. No sensory deficit.LABS, X-RAYS, AND EKGEKG: EKG time: 16:43 04/28/2020. No acute process. Rate: 115. Tachycardia. Normal P waves.Normal QRS complex. Normal ST and T waves. Prior EKG unavailable. The study has beenindependently viewed by me. The EKG appears to be a good tracing. I agree with and confirm thecomputer reading of the EKG. Interpretation time: 16:42 04/28/2020.Chest X-ray: (Ezequiel ambrocio John - 04/28/2020 5:27:42 PMNo active cardiopulm process). The X-rays were interpreted by the radiologist.Laboratory Tests: COVID-19 CAH: (JANEY: 04/28/2020 18:40) ( MsgRcvd 04/28/2020 19:17) Final results Test Result Flag Units (Reference) COVID-19 NOT DETECTED COVID-19 REENTER NOT DETECTED { PROCEDURAL CONTROL VALID KIT LOT # _[id number] 02/21/21.1915.DONA. KIT EXP DATE _[id number] 04/28/20.DONA. NORMAL RANGE IS NOT DETECTEDNEGATIVE RESULTS SHOULD BE TREATED PRESUMPTIVE AND, IF INCONSISTENT WITHCLINICAL SIGNS AND SYMPTOMS OR NECESSARY FOR PATIENT MANAGEMENT, SHOULD BETESTED WITH DIFFERENT AUTHORIZED OR CLEARED MOLECULAR TESTS. NEGATIVE RESULTSDO NOT PRECLUDE SARS-CoV-2 INFECTION AND SHOULD NOT BE USED THE SOLE BASISFOR PATIENT MANAGEMENT DECISIONS. Lactic Acid: (JANEY: 04/28/2020 18:25) ( [facility] 04/28/[facility] 19:09) Final results Test Result Flag Units (Reference) LACTIC ACID 2.0 MMOL/L (0.2 - 2.2) CT Head W/O Cont: (JANEY: 04/28/2020 18:37) ( [facility] 04/28/2020 19:12) In Progress CT HEAD W/O CONTRAST Reason(s): Altered Mental Status TRANSPORTATION: S IV? O2? Oxygen?(No) Room: ED CBC w Diff: (JANEY: 04/28/2020 16:18) ( [facility] 04/28/2020 16:55) Final results Test Result Flag Units (Reference) CBC W/AUTOMATED DIFF COMPLETE BLOOD COUNT WBC 15.4 H 10/uL (4.2 - 11.0) RBC 5.03 10/uL (4.20 - 5.40) HEMOGLOBIN 14.2 g/dL (12.0 - 16.0) 3 Clinical Report - Physicians/Mid Levels [facility] Emergency Department [address] [place] [address] Phone #: ext- [phone] 04/28/2020 16:02 Patient: SUJEY DOTY Sex: F : 1970 Age: 49y HEMATOCRIT 40.6 % (37.0 - 47.0) MCV 80.7 L fL (81.0 - 101) MCH 28.2 pg (27.0 - 34.0) MCHC 35.0 g/dL (31.0 - 36.0) RDW 13.2 % (11.5 - 14.5) PLATELETS 457 H 10/uL (150 - 450) MPV 9.6 fL (7.4 - 10.4) NEUT 63.3 % (37.0 - 80.0) LYMPH 23.9 L % (25.0 - 40.0) MONO 10.7 H % (3.0 - 8.0) EOS 1.2 % (0.0 - 7.0) BASO 0.6 % (0.0 - 2.5) %IG 0.3 H % (0.0 - 0.0) %NRBC 0.0 % (0.0 - 0.0) #NEUT 9.78 H 10/uL (2.00 - 6.90) #LYMPH 3.69 H 10/uL (0.60 - 3.40) #MONO 1.65 H 10/uL (0.00 - 0.90) #EOS 0.18 10/uL (0.00 - 0.70) #BASO 0.09 10/uL (0.00 - 0.20) #IG 0.05 10/uL (0.00 - 0.10) #NRBC 0.00 10/uL (0.00 - 0.00) MANUAL DIFF SEE BELOW SEGS 63 % (37 - 80) BAND 0 % (0 - 5) %LYMPH 33 % (25 - 40) %MONO 3 % (3 - 8) %EOS 1 % (0 - 7) %BASO 0 % (0 - 2) RBC MORPH NOT INDICATEDCMP: (JANEY: 04/28/2020 16:18) ( MsgRcvd 04/28/2020 17:07) Final results Test Result Flag Units (Reference) COMPREHENSIVE METABOLIC PANEL COMPREHENSIVE METABOLIC PANEL SODIUM 135 mEq/L (134 - 153) POTASSIUM 3.1 L mEq/L (3.6 - 5.0) CHLORIDE 90 L mEq/L (98 - 107) CO2 26 MEQ/L (22 - 30) GLUCOSE 117 H MG/DL (70 - 99) BUN 7 MG/DL (7 - 21) CREATININE 1.0 MG/DL (0.7 - 1.5) BUN/CREAT 7 L (8 - 27) TOTAL PROTEIN 6.6 G/DL (6.3 - 8.2) ALBUMIN 3.7 L G/DL (3.9 - 5.0) GLOBULIN 2.9 GM/DL (2.4 - 3.2) A/G RATIO 1.3 (0.8 - 2.0) CALCIUM 9.6 MG/DL (8.4 - 10.2) TOTAL BILI 0.9 MG/DL (0.2 - 1.3) ALKALINE PHOS 124 U/L (38 - 126) SGOT/AST 46 H U/L (5 - 40) SGPT/ALT 29 U/L (7 - 56) ANION GAP 19.0 H mmol/L (8.0 - 16.0) AGE 49 yrs NON- AA GFR >60 mL/min AFR AMER GFR >60 mL/min Male GFR Interprentation 20-49 yrs >60 mL/min Fodtjt81-42 yrs >56 mL/min Normal 60- 69 yrs >49 mL/min Normal 70-79yrs>42 mL/min Normal 80 and above >35 mL/min Normal Female GFRInterpretation 20-39 yrs >60 mL/min Normal 40-49 yrs >58 mL/minNormal 50-59 yrs >51 mL/min Normal 60-69 yrs >45 mL/min Normal 4 Clinical Report - Physicians/Mid Levels [facility] Emergency Department [address] [place] [address] Phone #: ext- [phone] 04/28/2020 16:02 Patient: SUJEY DOTY Sex: F : 1970 Age: 88u53-44 yrs >39 mL/min Normal 80 and above >32 mL/min NormalTSH: (JANEY: 04/28/2020 16:18) ( [facility] 04/28/2020 17:07) Final results Test Result Flag Units (Reference) TSH 0.23 L uIU/mL (0.47 - 5.01)Drug Screen-Urine: (JANEY: 04/28/2020 19:10) ( [facility] 04/28/2020 19:30) Final results Test Result Flag Units (Reference) DRUG SCREEN URINE URINE DRUG SCREEN AMPHETAMINES PRESUMP POS A (NORMAL: NEGAT BARBITURATES NEGATIVE (NORMAL: NEGAT BENZO NEGATIVE (NORMAL: NEGAT COCAINE NEGATIVE (NORMAL: NEGAT THC PRESUMP POS A (NORMAL: NEGAT OPIATES PRESUMP POS A (NORMAL: NEGAT PCP NEGATIVE (NORMAL: NEGAT \\BLDo\\URINE DRUG SCREEN INTERPRETATION\\BLDx\\ THE CUTOFFF LEVELS FORDETECTION ARE FOLLOWS: AMPHET AMINES 1000 ng/mlBARBITUARATES 200 ng/ml BENZODIAZEPINES 100 ng/mlTHC 50 ng/ml PHENCYCLIDINE 25 ng/mlOPIATES 300 ng/ml COCAINE 300 ng/mlALL POSITIVES ARE CONSIDERED PRESUMPTIVE POSITIVE CONFIRMATION [facility].Acetaminophen Level: (JANEY: 04/28/2020 16:18) ( [facility] 04/28/2020 17:02) Final results Test Result Flag Units (Reference) ACETAMINOPHEN <5.0 UG/ML (0.0 - 30.0)Salicylate Level: (JANEY: 04/28/2020 16:18) ( MsgRcvd 04/28/2020 17:07) Final results Test Result Flag Units (Reference) SALICYLATE <1.2 L mg/dL (2.0 - 20.0)ETOH: (JANEY: 04/28/2020 16:18) ( [facility] 04/28/2020 17:02) Final results Test Result Flag Units (Reference) ALCOHOL <10.0 MG/DL ALCOHOL % 0.01 % (0.00 - 0.01) *FOR MEDICAL PURPOSES ONLY*Urinalysis: (JANEY: 04/28/2020 19:10) ( [facility] 04/28/2020 19:21) Final results Test Result Flag Units (Reference) URINALYSIS URINALYSIS SOURCE R COLOR yellow (NORMAL: Yello CLARITY clear (NORMAL: Clear SPEC GRAVITY 1.010 (1.001 - 1.030 pH 6.5 (5 - 9) GLUCOSE NORM (NORMAL: Negat BILIRUBIN NEG (NORMAL: Negat KETONE NEG (NORMAL: Negat 5 Clinical Report - Physicians/Mid Levels [facility] Emergency Department [address] [place] [address] Phone #: ext- [phone] 04/28/2020 16:02 Patient: SUJEY DOTY Sex: F : 1970 Age: 49y PROTEIN 30 (NORMAL: Negat NITRITE NEG (NORMAL: Negat BLOOD 250 A (NORMAL: Negat LEUK EST 25 (NORMAL: Negat UROBILINOGEN 1 (less than 1.0 MICROSCOPIC See Below WBC 0 - 1 (NORMAL: NONE RBC 3 - 5 (NORMAL: NONE EPITHELIAL FEW (NORMAL: NONE BACTERIA Trace (NORMAL: NONE Beta-HCG, Qual Serum: (JANEY: 04/28/2020 16:18) ( [facility] 04/28/2020 16:55) Final results Test Result Flag Units (Reference) HCG SERUM QUAL NEGATIVE (NORMAL: NEGAT HCG SERUM QL REENTER NEGATIVE (NORMAL: NEGAT { KIT LOT # [id number] ){ KIT EXP DATE 10.05.21 ){ PROCEDURAL CONTROL VALID ) Venous Blood Gas: (JANEY: 04/28/2020 16:18) ( [facility] 04/28/2020 16:53) Final results Test Result Flag Units (Reference) pH V 7.45 H (7.32 - 7.43) pCO2 V 40.7 mm/HG (38.0 - 51.0) pO2 V 37.2 mm/HG (30.0 - 55.0) HCO3 V 27.4 meq/L (22.0 - 29.0) TCO2 V 28.6 meq/L (22.0 - 29.0) BASE EXCESS 3.1 H (-2.0 - 2.0) O2 SAT V 74.2 % (40.0 - 85.0) CPK: (JANEY: 04/28/2020 16:18) ( [facility] 04/28/2020 17:07) Final results Test Result Flag Units (Reference) CPK 348 H U/L (30 - 170) Chest Portable 1 View: (JANEY: 04/28/2020 16:07) ( [facility] 04/28/2020 19:12) In Progress CHEST PORTABLE Reason(s): possible estrellita overdose TRANSPORTATION: S IV? O2? Oxygen?(No) Room: ED.PROGRESS AND PROCEDURESCourse of Care: 17:33 04/28/20. Patient was very combative so she was given ativan and haldol. 17:36 04/28/20. EKG showed sinus tachycardia, no acute ischemic changes. she had a low Potassium so she was given KCL 10 meq IV CXR did not show any infiltrate 18:06 04/28/20. spoke with her step mother who states that she has been in [place] doing drugs,. she has a history of MRSA and she has had sepsis in the past. she is suppose to be on doxycycline. she also had endocarditis. she has not seen her in 1 week. patient she was hospitalized in the [facility] for 6 Clinical Report - Physicians/Mid Levels [facility] Emergency Department [address] [place] [address] Phone #: ext- [phone] 04/28/2020 16:02 Patient: SUJEY DOTY Sex: F : 1970 Age: 49y sepsis. She has seen [facility]. 18:47 04/28/20. 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 she is suppose to be on doxycycline. she was also noted to have a severe allergy to vancomycin so we will cancel the vancomycin 19:00 04/28/20. Ct head did not show any mass or bleed. we will straight cath her for a urine sample I will transfer her to [facility] as her infectious disease doctor is there . we do not have ID in [place]. since patient is allergic to PN and Vancomycin , I will discuss antibiotics with hospitalist at [facility] 19:29 04/28/20. Discussed case with DR taylor hospitalist at the [facility] who accepted the patient 19:46 04/28/20. spoke with Jovon Delacruz who is the healthcare proxy of the patient who agreed to transfer her to [facility] COVID negative, urine drug screen positive for THC, Opiates and amphetamines. Critical care performed (45 minutes). Time is exclusive of separately billable procedures. Time includes: direct patient care, patient reassessment, coordination of patient care, interpretation of data (laboratory data, pulse oximetry and chest xrays), review of patient's medical records, medical consultation, family consultation regarding treatment decisions and documentation of patient care- see progress notes. Disposition: Benefits, risks and alternatives to transfer explained to mother. Transferred to [facility]. Summary of care (CCDA) provided to transport team and EMS via paper. 19:28. UTI (catheter associated) was not present prior to transfer. Pressure ulcer was not present prior to transfer. Vascular infection (catheter associated) was not present prior to transfer. Surgical site infection was not present prior to transfer. Blood incompatibility was not present prior to transfer. Air embolism was not present prior to transfer. Condition: stable.CLINICAL IMPRESSION Changed mental status with confusion. Narcotic dependence (heroin) with intoxication with perceptual disturbance. Hypokalemia.(Electronically signed by Clay Vale 04/28/2020 23:52) Name Value Range Interpretation Code Description Data Treesa rce(s) Supporting Document(s) ID Date Data Source [id number] 04/28/2020 07:36:00 PM EST [facility] [address] [place] [address] ---------NAME--------- NUMBER SEX AGE ADMIT DISC. XRAY# F/C TYPE ROSALVA BUENO R [id number] F 49 04/28/20 [id number] X6B E/R DATE OF : 1970 M/R# [id number] #: [id number] TR-03 LOCATION: EMERGENCY DEPT TRANSCRIBED: 04/28/20 19:[address] HEAD W/O CONTRAST [id number] COMPLETED:04/28/20 19:12 J 4821 Reason(s): Altered Mental Status PHYSICIAN: CARI==== [...] rce(s) Supporting Document(s) ID Date Data Source [id number] 04/28/2020 07:29:00 PM [facility] Name Value Range Interpretation Code Description Data [facility] rce(s) Supporting Document(s) DRUG SCREEN URINE [facility] URINE DRUG SCREEN Amphetamine [Presence] in Urine by Screen method PRESUMP POS CATALINA L: NEGATIVE [facility] BARBITURATES NEGATIVE NORMAL: NEGATIVE [facility] BENZO NEGATIVE NORMAL: NEGATIVE [facility] COCAINE NEGATIVE NORMAL: NEGATIVE [facility] Tetrahydrocannabinol [Presence] in Urine PRESUMP POS NORMAL: NEGATIVE [facility] OPIATES PRESUMP POS NORMAL: NEGATIVE [facility] Phencyclidine [Presence] in Urine by Screen method NEGATIVE NOR MAL: NEGATIVE [facility] \\BLDo\\URINE DRUG SCR EEN INTERPRETATION\\BLDx\\ THE CUTOFFF LEVELS FOR DETECTION ARE FOLLOWS: AMPHETAMINES 1000 ng/ml BARBITUARATES 200 ng/ml BENZODIAZEPINES 100 ng/ml THC 50 ng/ml PHENCYCLIDINE 25 ng/ml OPIATES 300 ng/ml COCAINE 300 ng/ml ALL POSITIVES ARE CONSIDERED PRESUMPTIVE POSITIVE CONFIRMATION WILL BE PERFORMED AT PHYSICIAN REQUEST. ID Date Data Source [id number] 04/28/2020 07:21:00 PM [facility] Name Value Range Interpretation Code Description Data Teresa rce(s) Supporting Document(s) [facility] SOURCE R [facility] COL[facility] yellow NORMAL: Yellow [facility] CLARITY clear NORMAL: Clear [facility] Specific gravity of Urine by Test strip 1.010 1.001 - 1.030 [facility] pH 6.5 5 - 9 [facility] Glucose [Mass/volume] in Urine by Test strip NORM NORMAL: Negat [facility] Bilirubin.total [Presence] in Urine by Test strip NEG NORMAL: Negative [facility] Ketones [Presence] in Urine by Test strip NEG NORMAL: Negative [facility] Protein [Mass/volume] in Urine by Test strip 30 NORMAL: Negat [facility] Nitrite [Presence] in Urine by Test strip NEG NORMAL: Negative [facility] BLOOD 250 NORMAL: Negative [facility] Leukocyte esterase [Presence] in Urine by Test strip 25 CATALINA L: Negative [facility] Urobilinogen [Mass/volume] in Urine by Test strip 1 less adryan n 1.0 mg/dL [facility] MICROSCOPIC See Below [facility] ital WBC 0 - 1 NORMAL: NONE SEEN [facility] Erythrocytes [#/volume] in Urine by Test strip 3 - 5 NORMAL: NON E SEEN [facility] EPITHELIAL FEW NORMAL: NONE SEEN [facility] Bacteria [Presence] in Urine sediment by Light microscopy Tr jayde NORMAL: NONE SEEN [facility] ID Date Data Source [id number] 05/04/2020 07:00:00 AM EST [facility] [address] Name Value Range Interpretation Code Description Data Teresa rce(s) Supporting Document(s) Bacteria identified in Blood by Culture [facility] NO GROWTH AFTER 5 DAYS ID Date Data Source [id number] 05/05/2020 02:18:00 PM [facility] Name Value Range Interpretation Code Description Data Teresa rce(s) Supporting Document(s) CULTURE BLOOD [facility] spital _CULTURE BLOOD_ TEST PERFORM ED AT [address] [address] CLIA# [id number] SEE SCANNED REPORT{ PRELIM ID Date Data Source [id number] 04/28/2020 07:16:00 PM EST [facility] NOT DETECTEDNOT DETECTED{ PROC EDURAL CONTROL VALID KIT LOT # _[id number] 04/28/20.DONA. KIT EXP DATE _37-06-55 04/28/20.DONA. NORMAL RANGE IS NOT DETECTEDNEGATIVE RESULTS [...] rce(s) Supporting Document(s) ID Date Data Source [id number] 04/28/2020 06:40:00 PM EST [facility] Name Value Range Interpretation Code Description Data Teresa rce(s) Supporting Document(s) COVID19 Case rprt NOT DETECTED [facility] This lab was ordered by [facility] and reported by [facility]. ID Date Data Source [id number] 05/05/2020 02:18:00 PM [facility] Name Value Range Interpretation Code Description Data Teresa rce(s) Supporting Document(s) CULTURE BLOOD [facility] _CULTURE BLOOD_ TEST PERFORM ED AT [address] [address] CLIA# [id number] SEE SCANNED REPORT{ PRELIM ID Date Data Source [id number] 04/28/2020 07:09:00 PM EST [facility] Name Value Range Interpretation Code Description Data Teresa rce(s) Supporting Document(s) Lactate [Moles/volume] in Serum or Plasma 2.0 MMOL/L 0.2 - 2.2 [facility] ID Date Data Source [id number] 05/05/2020 02:18:[address] [facility] Value Range Interpretation Code Description Data Teresa rce(s) Supporting Document(s) CULTURE BLOOD [facility] spital _CULTURE BLOOD_ [place] [address] CLIA# [id number] SEE SCANNED REPORT{ PRELIM ID Date Data Source [id number] 04/28/2020 05:07:[address] [facility] Value Range Interpretation Code Description Data Teresa rce(s) Supporting Document(s) Creatine kinase [Enzymatic activity/volume] in Serum or Plasma 3 48 U/L 30 - 170 H [facility] ID Date Data Source [id number] 04/28/2020 05:07:[address] [facility] Value Range Interpretation Code Description Data Teresa rce(s) Supporting Document(s) SALICYLATE <1.2 mg/dL 2.0 - 20.0 L [facility] ID Date Data Source [id number] 04/28/2020 05:07:[address] [facility] Value Range Interpretation Code Description Data Teresa rce(s) Supporting Document(s) Thyrotropin [Units/volume] in Serum or Plasma by Detec tion limit <= 0.05 mIU/L 0.23 uIU/mL 0.47 - 5.01 L [facility] ID Date Data Source [id number] 04/28/2020 05:07:[address] [facility] Value Range Interpretation Code Description Data Teresa rce(s) Supporting Document(s) COMPREHENSIVE METABOLIC PANEL [facility] COMPREHENSIVE METABOLIC PANEL Sodium [Moles/volume] in Serum or Plasma 135 mEq/L 134 - 153 [facility] Potassium [Moles/volume] in Serum or Plasma 3.1 mEq/L 3.6 - 5.0 L [facility] Chloride [Moles/volume] in Serum or Plasma 90 mEq/L 98 - 107 L [facility] Carbon dioxide, total [Moles/volume] in Serum or Plasma 26 MEQ/L 22 - 30 [facility] Glucose [Mass/volume] in Serum or Plasma 117 MG/DL 70 - 99 H [facility] BUN 7 MG/DL 7 - 21 [facility] al Creatinine [Mass/volume] in Serum or Plasma 1.0 MG/DL 0.7 - 1.5 [facility] BUN/CREAT 7 8 - 27 L [facility] al Protein [Mass/volume] in Serum or Plasma 6.6 G/DL 6.3 - 8.2 [facility] Albumin [Mass/volume] in Serum or Plasma 3.7 G/DL 3.9 - 5.0 L [facility] Globulin [Mass/volume] in Serum by calculation 2.9 GM/DL 2.4 - 3.2 [facility] A/G RATIO 1.3 0.8 - 2.0 [facility] Calcium [Mass/volume] in Serum or Plasma 9.6 MG/DL 8.4 - 10.2 [facility] Bilirubin.total [Mass/volume] in Serum or Plasma 0.9 MG/DL 0.2 - 1.3 [facility] Alkaline phosphatase [Enzymatic activity/volume] in Serum or Plasma 124 U/L 38 - 126 [facility] Aspartate aminotransferase [Enzymatic activity/volume] in Serum or Plasma 46 U/L 5 - 40 H [facility] Alanine aminotransferase [Enzymatic activity/volume] in Seru m or Plasma 29 U/L 7 - 56 [facility] Anion gap 3 in Serum or Plasma 19.0 mmol/L 8.0 - 16.0 H [facility] AGE 49 yrs [facility] al NON-AA GFR >60 mL/min [facility] ital AFR AMER GFR >60 mL/min [facility] Male GFR In terprentation 20-49 [...] >32 mL/min Normal ID Date Data Source [id number] 04/28/2020 05:02:00 PM [facility] Name Value Range Interpretation Code Description Data Teresa rce(s) Supporting Document(s) Ethanol [Moles/volume] in Blood <10.0 MG/DL [facility] ALCOHOL % 0.01 % 0.00 - 0.01 [facility]osp ital *FOR MEDICAL PURPOSES ONLY * ID Date Data Source [id number] 04/28/2020 05:02:00 PM [facility] Name Value Range Interpretation Code Description Data Teresa rce(s) Supporting Document(s) Acetaminophen [Presence] in Urine <5.0 UG/ML 0.0 - 30.0 [facility] ID Date Data Source [id number] 04/28/2020 04:53:00 PM [facility] Name Value Range Interpretation Code Description Data Teresa rce(s) Supporting Document(s) CBC W/AUTOMATED DIFF [facility] COMPLETE BLOOD COUNT Leukocytes [#/volume] in Blood by Automated count 15.4 10^3/uL 4.2 - 11.0 H [facility] Erythrocytes [#/volume] in Blood by Automated count 5.03 10^6/uL 4. 20 - 5.40 [facility] Hemoglobin [Mass/volume] in Blood 14.2 g/dL 12.0 - 16.0 [facility] Hematocrit [Volume Fraction] of Blood by Automated count 40.6 % 3 7.0 - 47.0 [facility] Erythrocyte mean corpuscular volume [Entitic volume] by Auto mated count 80.7 fL 81.0 - 101 L [facility] Erythrocyte mean corpuscular hemoglobin [Entitic mass] by Automated count 28.2 pg 27.0 - 34.0 [facility] Erythrocyte mean corpuscular hemoglobin concentration [Mass/volume] by Automated count 35.0 g/dL 31.0 - 36.0 [facility] Erythrocyte distribution width [Ratio] by Automated count 13.2 % 11.5 - 14.5 [facility] Platelets [#/volume] in Blood by Automated count 457 10^3/uL 150 - 45 0 H [facility] Platelet mean volume [Entitic volume] in Blood by Automated count 9.6 fL 7.4 - 10.4 [facility] Neutrophils/100 leukocytes in Blood by Automated count 63.3 % 37. 0 - 80.0 [facility] Lymphocytes/100 leukocytes in Blood by Manual count 23.9 % 25.0 - 40.0 L [facility] Monocytes/100 leukocytes in Blood by Automated count 10.7 % 3.0 - 8.0 H [facility] Eosinophils/100 leukocytes in Blood by Automated count 1.2 % 0.0 - 7.0 [facility] 0.6 %IG 0.3 % 0.0 - 0.0 H [facility] Hospit al %NRBC 0.0 % 0.0 - 0.0 [facility] al Neutrophils [#/volume] in Blood by Automated count 9.78 10^3/uL 2.00 - 6.90 H [facility] Lymphocytes [#/volume] in Blood by Automated count 3.69 10^3/uL 0.60 - 3.40 H [facility] Monocytes [#/volume] in Blood by Automated count 1.65 10^3/uL 0.00 - 0.90 H [facility] Eosinophils [#/volume] in Blood by Automated count 0.18 10^3/uL 0.00 - 0.70 [facility] Basophils [#/volume] in Blood by Automated count 0.09 10^3/uL 0.00 - 0.20 [facility] #IG 0.05 10^3/uL 0.00 - 0.10 [facility] #NRBC 0.00 10^3/uL 0.00 - 0.00 [facility] MANUAL DIFF SEE BELOW [facility] ital Segmented neutrophils/100 leukocytes in Blood by Manual count 63 % 37 - 80 [facility] BAND 0 % 0 - 5 [facility] al %LYMPH 33 % 25 - 40 [facility] %MONO 3 % 3 - 8 [facility] %EOS 1 % 0 - 7 [facility] 0 RBC MORPH NOT INDICATED [facility] ID Date Data Source [id number] 04/28/2020 04:55:00 PM EST [facility] Name Value Range Interpretation Code Description Data Teresa rce(s) Supporting Document(s) HCG SERUM QUAL NEGATIVE NORMAL: NEGATIVE [facility] HCG SERUM QL REENTER NEGATIVE NORMAL: NEGATIVE [facility] { KIT LOT # [id number] ){ KIT EXP DATE 10.05.21 ){ PROCEDURAL CONTROL VALID ) ID Date Data Source [id number] 04/28/2020 04:53:00 PM [facility] Name Value Range Interpretation Code Description Data Teresa rce(s) Supporting Document(s) pH of Serum or Plasma 7.45 7.32 - 7.43 H [facility] pCO2 V 40.7 mm/HG 38.0 - 51.0 [facility] pO2 V 37.2 mm/HG 30.0 - 55.0 [facility] Bicarbonate [Moles/volume] in Venous blood 27.4 meq/L 22.0 - 29.0 [facility] TCO2 V 28.6 meq/L 22.0 - 29.0 [facility] Base excess in Blood by calculation 3.1 -2.0 - 2.0 H [facility] O2 SAT V 74.2 % 40.0 - 85.0 [facility] ital ID Date Data Source [id number] 05/05/2020 02:18:00 PM [facility] Name Value Range Interpretation Code Description Data Teresa rce(s) Supporting Document(s) CULTURE BLOOD [facility] spital _CULTURE BLOOD_ [place] [address] CLIA# [id number] SEE SCANNED REPORT{ PRELIM ID Date Data Source [id number] 04/25/2020 04:45:31 PM [facility] Name Value Range Interpretation Code Description Data Teresa rce(s) Supporting Document(s) Progress Note [facility] [id number] lbm [file] [id number]= ID Date Data Source [id number] 03/21/2020 04:05:00 PM EST [facility] Name Value Range Interpretation Code Description Data Teresa rce(s) Supporting Document(s) SARS-CoV-2 (COVID 19) NEGATIVE - SARS-CoV-2 (COVID19) [facility] This lab was ordered by [facility] a nd reported by [facility]. ID Date Data Source [id number] 03/18/2020 02:54:12 PM EST [facility] Name Value Range Interpretation Code Description Data Teresa rce(s) Supporting Document(s) Progress Note [facility] [id number] lbm [file] [id number]= ID Date Data Source HIV-1 RNA PCR QUANT [id number] (Viral Load) 03/12/2020 12:00:0 0 AM EST W1 ([facility]) Name Value Range Interpretation Code Description Data Teresa rce(s) Supporting Document(s) HIV 1 RNA [Units/volume] (viral load) in Serum or Plasma by Probe with amplification <20 . [facility] ([facility]) ID Date Data Source [id number] LACTATE [id number] 03/12/2020 12:00:00 AM EST eCW1 ([facility]) Name Value Range Interpretation Code Description Data Teresa rce(s) Supporting Document(s) [id number] [facility] ([facility]) ID Date Data Source [id number] 03/12/2020 12:00:00 AM EST eCW1 ([facility]) Name Value Range Interpretation Code Description Data Teresa rce(s) Supporting Document(s) eCW1 ([facility]) ID Date Data Source [id number] 03/05/2020 07:05:00 PM EST [facility] Name Value Range Interpretation Code Description Data Teresa rce(s) Supporting Document(s) Please note [facility] The date recorded on the requisition ind icates the sample(s) receivedwere greater than 72 hours old upon arrival in our laboratory. ID Date Data Source [id number] 03/09/2020 05:05:00 PM EST [facility] Name Value Range Interpretation Code Description Data Teresa rce(s) Supporting Document(s) HIV 1 Ab Negative Negative [facility] HIV 2 Ab Negative Negative [facility] Interpretation: Negative [facility] See RNA Reflex. ID Date Data Source [id number] 03/09/2020 05:05:00 PM EST [facility] Name Value Range Interpretation Code Description Data Teresa rce(s) Supporting Document(s) HIV 1 RNA Qualitative Negative Negative [facility] Negative for HIV-1 RNA Final Interpretation [facility] HIV antibodies were not confirmed and HI V 1 RNA was not detected. Nolaboratory evidence of HIV 1 infection. Follow-up testing for HIV 2should be performed if clinically indicated. ID Date Data Source [id number] 02/27/2020 02:46:00 PM EST [facility] Name Value Range Interpretation Code Description Data Teresa rce(s) Supporting Document(s) SARS coronavirus 2 RNA [Presence] in Res piratory specimen by DAVE with probe detection [facility] This lab was ordered by [facility] a nd reported by [facility]. ID Date Data Source [id number] 02/25/2020 06:26:00 PM EST [facility] Name Value Range Interpretation Code Description Data Teresa rce(s) Supporting Document(s) Bacteria identified in Blood by Culture [facility] NO GROWTH AFTER 5 DAYS ID Date Data Source [id number] 03/02/2020 06:43:00 AM EST [facility] Name Value Range Interpretation Code Description Data Teresa rce(s) Supporting Document(s) [facility] BLOOD CULTURE [facility] _CULTURE BLOOD_ [place] [address] CLIA# [id number] SEE SCANNED REPORT{ PRELIM ID Date Data Source [id number] 02/22/2020 06:18:00 AM [facility] Name Value Range Interpretation Code Description Data Teresa rce(s) Supporting Document(s) Hepatitis C virus Ab Signal/Cutoff in Serum or Plasma by Immunoassay 10.4 s/coratio 0.0-0.9 H [facility] Hepatitis C virus RNA [Units/volume] (vi ral load) in Serum or Plasma by Probe and target amplification method WILL FOLLOW [facility] Hepatitis C virus RNA [log units/volume] (viral load) in Serum or Plasma by Probe and target amplification method WILL FOLLOW [facility] Reference lab test reference range COMMENT [facility] The quantitative range of this assay is 15 IU/mL to 100 million IU/mL. Diagnostic impression [Interpretation] in Unspecified specimen Narrative WILL FOLLOW [facility] ID Date Data Source [id number] 02/20/2020 12:30:00 PM [facility] Name Value Range Interpretation Code Description Data Teresa rce(s) Supporting Document(s) C reactive protein [Mass/volume] in Serum or Plasma by High sensitivity method 76.57 MG/L 1.00 - 3.00 H [facility]/S HS-CRP CUT-OFF: RELATIVE RISK: <1.0 mg/L Low 1.0 - 3.0 mg/L Average >3.0 mg/L High Optimally, the average of HS-CRP results repeated two weeks apart should be used for risk assessment. ID Date Data Source [id number] 02/20/2020 12:30:00 PM [facility] Name Value Range Interpretation Code Description Data Teresa rce(s) Supporting Document(s) Iron [Mass/volume] in Serum or Plasma 47 UG/DL 42 - 135 [facility] Iron binding capacity.unsaturated [Mass/volume] in Serum or Plasma 127 UG/DL 112 - 347 [facility] Iron binding capacity [Mass/volume] in Serum or Plasma 174 ug/dL 250 - 450 L [facility] Iron saturation [Mass Fraction] in Serum or Plasma 27 % [facility] ID Date Data Source [id number] 02/20/2020 12:30:00 PM [facility] Name Value Range Interpretation Code Description Data Teresa rce(s) Supporting Document(s) COMPREHENSIVE METABOLIC PANEL [facility] COMPREHENSIVE METABOLIC PANEL Sodium [Moles/volume] in Serum or Plasma 137 mEq/L 134 - 153 [facility] Potassium [Moles/volume] in Serum or Plasma 3.9 mEq/L 3.6 - 5.0 [facility] Chloride [Moles/volume] in Serum or Plasma 102 mEq/L 98 - 107 [facility] Carbon dioxide, total [Moles/volume] in Serum or Plasma 29 MEQ/L 22 - 30 [facility] Glucose [Mass/volume] in Serum or Plasma 114 MG/DL 65 - 110 H [facility] BUN 13 MG/DL 7 - [facility] Creatinine [Mass/volume] in Serum or Plasma 0.7 MG/DL 0.7 - 1.5 [facility] BUN/CREAT 19 8 - 27 [facility] al Protein [Mass/volume] in Serum or Plasma 6.8 G/DL 6.3 - 8.2 [facility] Albumin [Mass/volume] in Serum or Plasma 3.5 G/DL 3.9 - 5.0 L [facility] Globulin [Mass/volume] in Serum by calculation 3.3 GM/DL 2.4 - 3.2 H [facility] A/G RATIO 1.1 0.8 - 2.0 [facility] Calcium [Mass/volume] in Serum or Plasma 8.5 MG/DL 8.4 - 10.2 [facility] Bilirubin.total [Mass/volume] in Serum or Plasma <0.7 MG/DL 0.2 - 1.3 [facility] Alkaline phosphatase [Enzymatic activity/volume] in Serum or Plasma 219 U/L 38 - 126 H [facility] Aspartate aminotransferase [Enzymatic activity/volume] in Serum or Plasma 17 U/L 5 - 40 [facility] Alanine aminotransferase [Enzymatic activity/volume] in Seru m or Plasma 27 U/L 7 - 56 [facility] Anion gap 3 in Serum or Plasma 6.0 mmol/L 8.0 - 16.0 L [facility] AGE 49 yrs [facility] al NON-AA GFR >60 mL/min [facility] ital AFR AMER GFR >60 mL/min [facility] Male GFR In terprentation 20-49 [...] >32 mL/min Normal ID Date Data Source [id number] 02/20/2020 11:21:00 AM EST [facility] Name Value Range Interpretation Code Description Data Teresa rce(s) Supporting Document(s) Erythrocyte sedimentation rate by Westergren method 23 mm/hr 0 - 30 [facility] SED RATE REENTER 23 [facility] ID Date Data Source [id number] 02/20/2020 11:04:00 AM EST [facility] Name Value Range Interpretation Code Description Data Teresa rce(s) Supporting Document(s) CBC W/AUTOMATED DIFF [facility] COMPLETE BLOOD COUNT Leukocytes [#/volume] in Blood by Automated count 10.4 10^3/uL 4.2 - 11.0 [facility] Erythrocytes [#/volume] in Blood by Automated count 4.71 10^6/uL 4. 20 - 5.40 [facility] Hemoglobin [Mass/volume] in Blood 13.1 g/dL 12.0 - 16.0 [facility] Hematocrit [Volume Fraction] of Blood by Automated count 39.3 % 3 7.0 - 47.0 [facility] Erythrocyte mean corpuscular volume [Entitic volume] by Auto mated count 83.4 fL 81.0 - 101 [facility] Erythrocyte mean corpuscular hemoglobin [Entitic mass] by Automated count 27.8 pg 27.0 - 34.0 [facility] Erythrocyte mean corpuscular hemoglobin concentration [Mass/volume] by Automated count 33.3 g/dL 31.0 - 36.0 [facility] Erythrocyte distribution width [Ratio] by Automated count 18.0 % 11.5 - 14.5 H [facility] Platelets [#/volume] in Blood by Automated count 317 10^3/uL 150 - 45 0 [facility] Platelet mean volume [Entitic volume] in Blood by Automated count 9.1 fL 7.4 - 10.4 [facility] Neutrophils/100 leukocytes in Blood by Automated count 63.7 % 37. 0 - 80.0 [facility] Lymphocytes/100 leukocytes in Blood by Manual count 27.2 % 25.0 - 40.0 [facility] Monocytes/100 leukocytes in Blood by Automated count 4.9 % 3.0 - 8.0 [facility] Eosinophils/100 leukocytes in Blood by Automated count 3.2 % 0.0 - 7.0 [facility] Basophils/100 leukocytes in Blood by Automated count 0.5 % 0.0 - 2.5 [facility] %IG 0.5 % 0.0 - 0.0 [facility] %NRBC 0.0 % 0.0 - 0.0 [facility] Neutrophils [#/volume] in Blood by Automated count 6.63 10^3/uL 2.00 - 6.90 [facility] Lymphocytes [#/volume] in Blood by Automated count 2.83 10^3/uL 0.60 - 3.40 [facility] Monocytes [#/volume] in Blood by Automated count 0.51 10^3/uL 0.00 - 0.90 [facility] Eosinophils [#/volume] in Blood by Automated count 0.33 10^3/uL 0.00 - 0.70 [facility] Basophils [#/volume] in Blood by Automated count 0.05 10^3/uL 0.00 - 0.20 [facility] #IG 0.05 10^3/uL 0.00 - 0.10 [facility] #NRBC 0.00 10^3/uL 0.00 - 0.00 [facility] MANUAL DIFF NOT INDICATED [facility] RBC MORPH NOT INDICATED [facility] ID Date Data Source IRON (FE) 02/20/2020 12:00:00 AM EST eCW1 ([facility]) Name Value Range Interpretation Code Description Data Teresa rce(s) Supporting Document(s) IRON eCW1 ([facility]) ID Date Data Source [id number] 02/06/2020 01:45:00 PM EST [facility] Name Value Range Interpretation Code Description Data Teresa rce(s) Supporting Document(s) SARS coronavirus 2 RNA [facility] This lab was ordered by [facility] and reported by [facility]. ID Date Data Source [id number] 01/10/2020 04:54:46 PM EST [facility] INFORMATIONPatient MRN Name Date of Age Gend*PT [id number] Sujey Doty 1970 49 years F HOPPT Location Admission Date/Time Visit ID Attending [id number] 01/10/20 0749 --- --- EPI ID CSN Admitting Provider [id number] Demetrice Gilliam MD([id number])Transesophageal ECHO ReportPatient Name: Sujey Doty of : [...] parts of this document, were dictated using Fosubo software. Areasonable attempt at proofreading has been made to minimize errors. Please callwith any questions or corrections. Name Value Range Interpretation Code Description Data Teresa rce(s) Supporting Document(s) ID Date Data Source [id number] 01/10/2020 04:49:04 PM EST [facility] Name Value Range Interpretation Code Description Data Teresa rce(s) Supporting Document(s) &PDF [facility] LNVAHu7dQhYGPpCr22/MNFszJKOib2AwXWlhEYm5GIhxLKOoL4ThnWzcWB2YHimZBsgYMYKDO3GHKaCo hdG [file] 0gDQo+Jb8Qq8EufrA2naIjNXewJiGmBR4NZNAMT1JFNe== ID Date Data Source [id number] 01/10/2020 10:53:18 AM EST [facility] Name Value Range Interpretation Code Description Data Teresa rce(s) Supporting Document(s) &PDF [facility] VZWGLk6jKfRHCfZc38/TLNodRGUci6RqVKthYPb8ONjqCGVxA5QzlTwfIL1TCwdIYhoWWPBEA8UJLhBk hdG [file] ICAgICAgICAgICAgICAgICAgICAgICAgICAgICAgICAgICAgICAgICAgICAgICAgICAgICAgICAgICAg KNVwIBUoDCZqJGZpUZJoIMHeFFRrHOTpSYXpZSIzAOIiZFBtTK8AXXSmQMEkLLWxZVLuANDbATAbVDGc ICAgICAgICAgICAgICAgICAgICAgICAgICAgICAgIC EfKYCoOFMpSLZlUZErWTKlQQVtGSHfIMHkCQFfBGQaIHThKDCvIKFxJMOyDCCzUW7FRICmVXHlNDEbGY AgICAgICAgICAgICAgICAgICAgICAgICAgICAgICAgICAgICAgICAgICAgICAgICAgICAgICAgICAgIC MoSGElEHUnGLPgFKDvBMHaMVFvWRUlEGDpUCYmQS1G ICAgICAgICAgICAgICAgICAgICAgICAgICAgICAgICAgICAgICAgICAgICAgICAgICAgICAgICAgICAg BEUaHMSiCTZkGIQrNGFdJBDaNPNiSLHmCZStLAJsSZEjDBSdIDYfTF7NSEUpBKJiSNDqPGWdKNPuOYOj ICAgICAgICAgICAgICAgICAgICAgICAgICAgICAgIC QsQKTvHIQsLDQdYZDyLTHtOLGiJZCoJRRtYOMeVPLrJRLvCEFnCKPtUNCbQVQwWVLwYA9KBENoIGGmUD AgICAgICAgICAgICAgICAgICAgICAgICAgICAgICAgICAgICAgICAgICAgICAgICAgICAgICAgICAgIC AgICAgICAgICAgICAgICAgICAgICAgICAgICAgICAg RL6YXNNvWDIpSHPjNWCsBAJnQGBxYJNgCENqEKPhZFUcBPNaCHByZTRdZZWbKOZtWRXlZQDpVWJtTAFe IRNkURFyUXSgMOXgSMMuVOEvHKThRNXhFNOsHTBjNLGrXKYqAGZrZGPmNC4UEBYwSJFaNDRvCWLjGWUb ICAgICAgICAgICAgICAgICAgICAgICAgICAgICAgIC AoHURyLYIbMYCzCUQeDRGhYAMqAGVzAGOnQDEoJHMoGQFqZBRdICFdHCEjUUJsWUApOECdDS6RAIEhFU AgICAgICAgICAgICAgICAgICAgICAgICAgICAgICAgICAgICAgICAgICAgICAgICAgICAgICAgICAgIC AgICAgICAgICAgICAgICAgICAgICAgICAgICAgICAg HXJpCX0TBRYhZCSaBQIpPGVsGMOvUHJbOIQmRZDyRZInBLKzGBOzSVGhKCIgRPAcKJUeXGHwRTHoAPLa PLErRIWzMLItYWCuGGYnZVAlKCCbTSByBPJiCZHwBRCuPWOhVTHmNKMhHZZfZB6PAG72bOBaw6S3TPVg OP1gdez/Jl5ZGGintqDcyNIrCM1EVgDwBV9jyg7IQk DeZC1zvy4CSHzINvBvK5L7yLHlXYTaRRFTEqIqK72lZYhsUy21WZpnGOItLtKeQBd6Yp6YCcZcY3ccGV MfApW3ZPWwAmU3WNXhKwWiVGdjSC9Ts1FwxQDwNHq+Yg1XDD6ce4UbEKuqFjCeWF5cdr9YNFiQGdQdB8 P9cKSmW9G2JHdcAr7NROKpIYEiZaVyOQNBSCluIE9Y PN9czvP9UU9AbVPpXKNjOGQdmLZbDKu6K30pxTFgTCbiEW9UJJT+Von+Nb5QHVBcEKXkRHOhPoJzONIM EeWhJ31gcBNqRFNoHFF2IVMaIz0VWIDmH9CmisFczXzcqfCvCAHkPUAOWT7HDWlhzpKnjYXyhKcfCA73 gLlpLO1SRy0FOaWaIC5cbx4KqQJgTq9YQDRyYn3IZM UjDIJqHDApWTJ2MBVoKjXbRSphNBCjFLAwJCJ4QKReDHXuRQ4WUwStDYAvXiJ6IocyGZWzETVpky1BPA VkZRNhULBaMoLbKMRdVLVnVQjyRSCoAJAgOZi1FXInOCFdVN3RWiSsJQTfUZAhAfApIKHdDWZyog0NPH XkLEKmDvArMkVlDUEhRNKpGTfqKRRqSIM4PDCoZVDt RPDmAS8NNuYtIBVfEAX9XnVaKBNpODOgew0OIHGfVAWeAOF4NWYaFSZyWLXsREkaFCTmJVK2YoufPTSl OAXgFA1DXhNvFJKsWJN5ZvGoIWDzQDCzgx3UKZLlISVhBjmaFNAjQGBeWSRpCYypBXJcITX2AAOxILWq DDOuNC6TVuSbINOzWLazIMHhQXDwJYZvyi2AQWGkGO NpJxX7QoMlEDJlNZXoOCbsUZNfZNVxQWt4SBXvXBQhFJ0MGcVwWWKbOPP0FWAyRUKaJEFkfq0GJFSoEU WhTtqgEjTyBWYvKAQyIWqnPBPqMMCpPIsxWBGrNLDuLS4VJdUcDOKlACHiTlPjTTVdKPGmrw9RTBInTS FvFJBjKHIiMHFiQVAeBJjwSQLqPTC8McwxPVYrMSHx YB0PZlMlFPSrIXl7RtgyCKNsMIBewt6CFFWiILJtRsgeRPBbEZShGCHhJJhxPBMiWWD9TsEfHLDbFLXr SG4YEoNgXHApGzI4ESFrBTWdWOVtpo7BaWHksZjcwr9VXGxJQr0DqEcpVYI5XOsnXu0vmWNvZvPaVIHZ Bq1TaeAeCYCyMAZLWPwmOXJxATRsYTL3STYdTRK9DF kdYlG8JGw9NGW1SLV5O9SeWwPtYeY6TQHwYWfbQYF8Etv5LANpIGu0IoCqYYhpSXB4WHSgZLH+IF0gDQ o+Va8Zb3SepuU1zeCuSPwwXSr9Uw1ANDXQG6HPTh== ID Date Data Source [id number] 01/10/2020 09:25:19 AM EST [facility] Name Value Range Interpretation Code Description Data Teresa rce(s) Supporting Document(s) POC SODIUM 137 MMOL/L (136-145) [facility] PER[facility] BY [facility] ID Date Data Source [id number] 01/10/2020 09:25:19 AM EST [facility] Name Value Range Interpretation Code Description Data Teresa rce(s) Supporting Document(s) POC POTASSIUM 4.8 MMOL/L (3.6-5.2) [facility] ID Date Data Source [id number] 01/10/2020 09:25:19 AM EST [facility] Name Value Range Interpretation Code Description Data Teresa rce(s) Supporting Document(s) POC GLU 93 MG/DL (70-99) [facility] ID Date Data Source [id number] 01/10/2020 09:25:19 AM EST [facility] Name Value Range Interpretation Code Description Data Teresa rce(s) Supporting Document(s) POC IONIZED CALCIUM 4.6 MG/DL (4.6-5.3) [facility] ID Date Data Source [id number] 01/10/2020 09:25:19 AM EST [facility] Name Value Range Interpretation Code Description Data Teresa rce(s) Supporting Document(s) POC HCT 37 % (36.0-47.0) [facility]FORMED BY [facility] ID Date Data Source [id number] 01/09/2020 11:55:00 AM EST [facility] Name Value Range Interpretation Code Description Data Teresa rce(s) Supporting Document(s) SARS coronavirus 2 RNA [Presence] in Res piratory specimen by DAVE with probe detection [facility] This lab was reported by [facility]. ID Date Data Source [id number] 01/09/2020 03:09:30 PM EST [facility] Name Value Range Interpretation Code Description Data Teresa rce(s) Supporting Document(s) SPECIMEN DESCRIPTION [facility] COVID19 RESULT (NDET) [facility] THIS ASSAY AMPLIFIES AND DETECTSTHE TARG ET RNA USING REAL-TIME PCR.NEGATIVE 2019_NCOV RT-PCR RESULTS DONOT PRECLUDE 2019_NCOV INFECTION ANDSHOULD NOT BE USED THE SOLE BASISFOR PATIENT MANAGEMENT DECISIONS. COMMENT [facility] UNDER AN EMERGENCY USE AUTHORIZATION(EUA ) FOR THE DETECTION AND/OR DIAGNOSISOF THE VIRUS THAT CAUSES COVID-19.EMAILED TO [facility] IC AT [id number] [place] [id number]. FIRST TEST [facility] SYMPTOMATIC [facility] DATE OF SYMPT ONSET [facility] HOSPITALIZED [facility] ICU [facility] CONGREGATE CARE SET [facility] ID Date Data Source [id number] 01/03/2020 09:29:59 AM EDT eCW1 ([facility]) Name Value Range Interpretation Code Description Data Teresa rce(s) Supporting Document(s) 15.9 PROLACTIN eCW1 ([facility]) Procedure Social History Code Duration Value Status Description Data Source(s ) Smoking 01/07/2021 12:00:00 AM EDT Current Smoker completed Curre nt Smoker eCW1 ([facility]) Smoking 01/07/2021 12:00:00 AM EDT Current Smoker completed Curre nt Smoker eCW1 ([facility]) Smoking 01/07/2021 12:00:00 AM EDT Current Smoker completed Curre nt Smoker eCW1 ([facility]) Smoking 01/07/2021 12:00:00 AM EDT Current Smoker completed Curre nt Smoker eCW1 ([facility]) Smoking 01/07/2021 12:00:00 AM EDT Current Smoker completed Curre nt Smoker eCW1 ([facility]) Smoking 01/07/2021 12:00:00 AM EDT Current Smoker completed Curre nt Smoker eCW1 ([facility]) Smoking 12/22/2020 12:00:00 AM EDT Current Smoker completed Curre nt Smoker eCW1 ([facility]) Smoking 12/22/2020 12:00:00 AM EDT Current Smoker completed Curre nt Smoker eCW1 ([facility]) Smoking 12/22/2020 12:00:00 AM EDT Current Smoker completed Curre nt Smoker eCW1 ([facility]) Smoking 11/21/2020 12:00:00 AM EDT Current Smoker completed Curre nt Smoker eCW1 ([facility]) Smoking 11/21/2020 12:00:00 AM EDT Current Smoker completed Curre nt Smoker eCW1 ([facility]) Smoking 11/21/2020 12:00:00 AM EDT Current Smoker completed Curre nt Smoker eCW1 ([facility]) Smoking 11/21/2020 12:00:00 AM EDT Current Smoker completed Curre nt Smoker eCW1 ([facility]) Smoking 11/21/2020 12:00:00 AM EDT Current Smoker completed Curre nt Smoker eCW1 ([facility]) Smoking 11/21/2020 12:00:00 AM EDT Current Smoker completed Curre nt Smoker eCW1 ([facility]) Smoking 11/21/2020 12:00:00 AM EDT Current Smoker completed Curre nt Smoker eCW1 ([facility]) Smoking 11/21/2020 12:00:00 AM EDT Current Smoker completed Curre nt Smoker eCW1 ([facility]) Smoking 11/21/2020 12:00:00 AM EDT Current Smoker completed Curre nt Smoker eCW1 ([facility]) Smoking 11/21/2020 12:00:00 AM EDT Current Smoker completed Curre nt Smoker eCW1 ([facility]) Smoking 11/21/2020 12:00:00 AM EDT Current Smoker completed Curre nt Smoker eCW1 ([facility]) Smoking 11/21/2020 12:00:00 AM EDT Current Smoker completed Curre nt Smoker eCW1 ([facility]) Smoking 11/21/2020 12:00:00 AM EDT Current Smoker completed Curre nt Smoker eCW1 ([facility]) Smoking 10/24/2020 12:00:00 AM EDT Current Smoker completed Curre nt Smoker eCW1 ([facility]) Smoking 10/24/2020 12:00:00 AM EDT Current Smoker completed Curre nt Smoker eCW1 ([facility]) Smoking 10/24/2020 12:00:00 AM EDT Current Smoker completed Curre nt Smoker eCW1 ([facility]) Smoking 10/24/2020 12:00:00 AM EDT Current Smoker completed Curre nt Smoker eCW1 ([facility]) Smoking 10/24/2020 12:00:00 AM EDT Current Smoker completed Curre nt Smoker eCW1 ([facility]) Smoking 10/24/2020 12:00:00 AM EDT Current Smoker completed Curre nt Smoker eCW1 ([facility]) Smoking 10/24/2020 12:00:00 AM EDT Current Smoker completed Curre nt Smoker eCW1 ([facility]) Smoking 10/24/2020 12:00:00 AM EDT Current Smoker completed Curre nt Smoker eCW1 ([facility]) Smoking 10/24/2020 12:00:00 AM EDT Current Smoker completed Curre nt Smoker eCW1 ([facility]) Smoking 09/19/2020 12:00:00 AM EDT Current Smoker completed Curre nt Smoker eCW1 ([facility]) Smoking 09/19/2020 12:00:00 AM EDT Current Smoker completed Curre nt Smoker eCW1 ([facility]) Smoking 09/19/2020 12:00:00 AM EDT Current Smoker completed Curre nt Smoker eCW1 ([facility]) Smoking 09/19/2020 12:00:00 AM EDT Current Smoker completed Curre nt Smoker eCW1 ([facility]) Smoking 09/19/2020 12:00:00 AM EDT Current Smoker completed Curre nt Smoker eCW1 ([facility]) Smoking 09/19/2020 12:00:00 AM EDT Current Smoker completed Curre nt Smoker eCW1 ([facility]) Smoking 09/19/2020 12:00:00 AM EDT Current Smoker completed Curre nt Smoker eCW1 ([facility]) Smoking 09/19/2020 12:00:00 AM EDT Current Smoker completed Curre nt Smoker eCW1 ([facility]) Smoking 09/19/2020 12:00:00 AM EDT Current Smoker completed Curre nt Smoker eCW1 ([facility]) Smoking 09/11/2020 12:00:00 AM EDT Current Smoker completed Curre nt Smoker eCW1 ([facility]) Smoking 09/11/2020 12:00:00 AM EDT Current Smoker completed Curre nt Smoker eCW1 ([facility]) Smoking 09/03/2020 12:00:00 AM EDT Current Smoker completed Curre nt Smoker eCW1 ([facility]) Smoking 08/27/2020 12:00:00 AM EDT Current Smoker completed Curre nt Smoker eCW1 ([facility]) Smoking 08/27/2020 12:00:00 AM EDT Current Smoker completed Curre nt Smoker eCW1 ([facility]) Smoking 08/21/2020 12:00:00 AM EDT Current Smoker completed Curre nt Smoker eCW1 ([facility]) Smoking 08/21/2020 12:00:00 AM EDT Current Smoker completed Curre nt Smoker eCW1 ([facility]) Smoking 08/21/2020 12:00:00 AM EDT Current Smoker completed Curre nt Smoker eCW1 ([facility]) Smoking 08/20/2020 12:00:00 AM EDT Current Smoker completed Curre nt Smoker eCW1 ([facility]) Smoking 08/07/2020 12:00:00 AM EDT Current Smoker completed Curre nt Smoker eCW1 ([facility]) Smoking 08/07/2020 12:00:00 AM EDT Current Smoker completed Curre nt Smoker eCW1 ([facility]) Smoking 08/07/2020 12:00:00 AM EDT Current Smoker completed Curre nt Smoker eCW1 ([facility]) Smoking 07/25/2020 12:00:00 AM EDT Current Smoker completed Curre nt Smoker eCW1 ([facility]) Smoking 07/25/2020 12:00:00 AM EDT Current Smoker completed Curre nt Smoker eCW1 ([facility]) Smoking 07/25/2020 12:00:00 AM EDT Current Smoker completed Curre nt Smoker eCW1 ([facility]) Smoking 07/25/2020 12:00:00 AM EDT Current Smoker completed Curre nt Smoker eCW1 ([facility]) Smoking 07/15/2020 12:00:00 AM EDT Current Smoker completed Curre nt Smoker eCW1 ([facility]) Smoking 07/15/2020 12:00:00 AM EDT Current Smoker completed Curre nt Smoker eCW1 ([facility]) Smoking 07/15/2020 12:00:00 AM EDT Current Smoker completed Curre nt Smoker eCW1 ([facility]) Smoking 07/02/2020 12:00:00 AM EDT Current Smoker completed Curre nt Smoker eCW1 ([facility]) Smoking 07/02/2020 12:00:00 AM EDT Current Smoker completed Curre nt Smoker eCW1 ([facility]) Smoking 07/02/2020 12:00:00 AM EDT Current Smoker completed Curre nt Smoker eCW1 ([facility]) Smoking 07/02/2020 12:00:00 AM EDT Current Smoker completed Curre nt Smoker eCW1 ([facility]) Smoking 07/02/2020 12:00:00 AM EDT Current Smoker completed Curre nt Smoker eCW1 ([facility]) Smoking 07/02/2020 12:00:00 AM EDT Current Smoker completed Curre nt Smoker eCW1 ([facility]) Smoking 07/02/2020 12:00:00 AM EDT Current Smoker completed Curre nt Smoker eCW1 ([facility]) Smoking 07/02/2020 12:00:00 AM EDT Current Smoker completed Curre nt Smoker eCW1 ([facility]) Smoking 06/26/2020 12:00:00 AM EDT Current Smoker completed Curre nt Smoker eCW1 ([facility]) Smoking 06/26/2020 12:00:00 AM EDT Current Smoker completed Curre nt Smoker eCW1 ([facility]) Smoking 06/17/2020 12:00:00 AM EDT Current Smoker completed Curre nt Smoker eCW1 ([facility]) Smoking 06/17/2020 12:00:00 AM EDT Current Smoker completed Curre nt Smoker eCW1 ([facility]) Smoking 04/22/2020 12:00:00 AM EST Current Smoker completed Curre nt Smoker eCW1 ([facility]) Smoking 04/22/2020 12:00:00 AM EST Current Smoker completed Curre nt Smoker eCW1 ([facility]) Smoking 04/22/2020 12:00:00 AM EST Current Smoker completed Curre nt Smoker eCW1 ([facility]) Smoking 04/22/2020 12:00:00 AM EST Current Smoker completed Curre nt Smoker eCW1 ([facility]) Smoking 04/22/2020 12:00:00 AM EST Current Smoker completed Curre nt Smoker eCW1 ([facility]) Smoking 03/21/2020 12:00:00 AM EST Current Smoker completed Curre nt Smoker eCW1 ([facility]) Smoking 03/21/2020 12:00:00 AM EST Current Smoker completed Curre nt Smoker eCW1 ([facility]) Smoking 03/21/2020 12:00:00 AM EST Current Smoker completed Curre nt Smoker eCW1 ([facility]) Smoking 03/12/2020 12:00:00 AM EST Current Smoker completed Curre nt Smoker eCW1 ([facility]) Smoking 03/12/2020 12:00:00 AM EST Current Smoker completed Curre nt Smoker eCW1 ([facility]) Smoking 03/12/2020 12:00:00 AM EST Current Smoker completed Curre nt Smoker eCW1 ([facility]) Smoking 03/12/2020 12:00:00 AM EST Current Smoker completed Curre nt Smoker eCW1 ([facility]) Smoking 02/27/2020 12:00:00 AM EST Current Smoker completed Curre nt Smoker eCW1 ([facility]) Smoking 02/27/2020 12:00:00 AM EST Current Smoker completed Curre nt Smoker eCW1 ([facility]) Smoking 02/27/2020 12:00:00 AM EST Current Smoker completed Curre nt Smoker eCW1 ([facility]) Smoking 02/20/2020 12:00:00 AM EST Current Smoker completed Curre nt Smoker eCW1 ([facility]) Smoking 02/06/2020 12:00:00 AM EST Current Smoker completed Curre nt Smoker eCW1 ([facility]) Smoking 02/06/2020 12:00:00 AM EST Current Smoker completed Curre nt Smoker eCW1 ([facility]) Smoking 02/06/2020 12:00:00 AM EST Current Smoker completed Curre nt Smoker eCW1 ([facility]) Alcohol intake 01/10/2020 12:00:00 AM EST Not Currently completed [facility] Smoking 01/10/2020 12:00:00 AM EST Current every day smoker co mpleted Current every day smoker [facility] Smoking 01/10/2020 12:00:00 AM EST Current Smoker completed Curre nt Smoker eCW1 ([facility]) Smoking 01/02/2020 12:00:00 AM EDT Current Smoker completed Curre nt Smoker eCW1 ([facility]) Smoking 12/21/2019 12:00:00 AM EDT Current Smoker completed Curre nt Smoker eCW1 ([facility]) Smoking 12/21/2019 12:00:00 AM EDT Current Smoker completed Curre nt Smoker eCW1 ([facility]) Smoking 12/21/2019 12:00:00 AM EDT Current Smoker completed Curre nt Smoker eCW1 ([facility]) Smoking 12/21/2019 12:00:00 AM EDT Current Smoker completed Curre nt Smoker eCW1 ([facility]) Smoking 12/21/2019 12:00:00 AM EDT Current Smoker completed Curre nt Smoker eCW1 ([facility]) Smoking 12/21/2019 12:00:00 AM EDT Current Smoker completed Curre nt Smoker eCW1 ([facility]) Smoking 12/21/2019 12:00:00 AM EDT Current Smoker completed Curre nt Smoker eCW1 ([facility]) Vital Signs ID Date Data Source UNK Name Value Range Interpretation Code Description Data Source(s) Body weight 95 [lb_av] 95 [lb_av] eCW1 ([facility]) Body weight 43.09 kg 43.09 kg W1 ([facility]) Body height 59 [in_i] 59 [in_i] eCW1 ([facility]) Body mass index (BMI) [Ratio] 19.19 kg/m2 19.19 kg/m2 eCW1 ([facility]) Heart rate 91 /min 91 /min eCW1 ([facility]) Respiratory rate 18 /min 18 /min eCW1 ([facility]) Body temperature 98.3 [degF] 98.3 [degF] eCW1 ( [facility]) Systolic blood pressure 104 mm[Hg] 104 mm[Hg] e CW1 ([facility]) Diastolic blood pressure 62 mm[Hg] 62 mm[Hg] eCW1 ([facility]) Body weight 93 [lb_av] 93 [lb_av] eCW1 ([facility]) Body weight 42.18 kg 42.18 kg eCW1 ([facility]) Respiratory rate 16 /min 16 /min eCW1 ([facility]) Body temperature 97.8 [degF] 97.8 [degF] eCW1 ( [facility]) Systolic blood pressure 118 mm[Hg] 118 mm[Hg] e CW1 ([facility]) Diastolic blood pressure 68 mm[Hg] 68 mm[Hg] eCW1 ([facility]) Body height 59 [in_i] 59 [in_i] eCW1 ([facility]) Body mass index (BMI) [Ratio] 18.78 kg/m2 18.78 kg/m2 eCW1 ([facility]) Heart rate 112 /min 112 /min eCW1 ([facility]) Body weight 99 [lb_av] 99 [lb_av] eCW1 ([facility]) Respiratory rate 18 /min 18 /min eCW1 ([facility]) Body temperature 98.2 [degF] 98.2 [degF] eCW1 ( [facility]) Systolic blood pressure 110 mm[Hg] 110 mm[Hg] e CW1 ([facility]) Diastolic blood pressure 64 mm[Hg] 64 mm[Hg] eCW1 ([facility]) Body weight 44.91 kg 44.91 kg eCW1 ([facility]) Body height 59 [in_i] 59 [in_i] eCW1 ([facility]) Body mass index (BMI) [Ratio] 19.99 kg/m2 19.99 kg/m2 eCW1 ([facility]) Heart rate 104 /min 104 /min eCW1 ([facility]) Body weight 101 [lb_av] 101 [lb_av] eCW1 ([facility]) Body height 59 [in_i] 59 [in_i] eCW1 ([facility]) Body mass index (BMI) [Ratio] 20.40 kg/m2 20.40 kg/m2 eCW1 ([facility]) Heart rate 116 /min 116 /min eCW1 ([facility]) Respiratory rate 18 /min 18 /min eCW1 ([facility]) Body temperature 98.3 [degF] 98.3 [degF] eCW1 ( [facility]) Systolic blood pressure 104 mm[Hg] 104 mm[Hg] e CW1 ([facility]) Diastolic blood pressure 64 mm[Hg] 64 mm[Hg] eCW1 ([facility]) Body weight 95.2 [lb_av] 95.2 [lb_av] eCW1 ([facility]) Body weight 43.1 kg 43.1 kg eCW1 ([facility]) Body height 59 [in_i] 59 [in_i] eCW1 ([facility]) Body mass index (BMI) [Ratio] 19.23 kg/m2 19.23 kg/m2 eCW1 ([facility]) Heart rate 102 /min 102 /min eCW1 ([facility]) Respiratory rate 18 /min 18 /min eCW1 ([facility]) Body temperature 98.3 [degF] 98.3 [degF] eCW1 ( [facility]) Systolic blood pressure 110 mm[Hg] 110 mm[Hg] e CW1 ([facility]) Diastolic blood pressure 78 mm[Hg] 78 mm[Hg] eCW1 ([facility]) Body weight 91.0 [lb_av] 91.0 [lb_av] eCW1 ([facility]) Body weight 41.3 kg 41.3 kg eCW1 ([facility]) Body height 59 [in_i] 59 [in_i] eCW1 ([facility]) Body mass index (BMI) [Ratio] 18.38 kg/m2 18.38 kg/m2 eCW1 ([facility]) Heart rate 92 /min 92 /min eCW1 ([facility]) Respiratory rate 18 /min 18 /min eCW1 ([facility]) Body temperature 98.5 [degF] 98.5 [degF] eCW1 ( [facility]) Systolic blood pressure 122 mm[Hg] 122 mm[Hg] e CW1 ([facility]) Diastolic blood pressure 78 mm[Hg] 78 mm[Hg] eCW1 ([facility]) Body weight 88.8 [lb_av] 88.8 [lb_av] eCW1 ([facility]) Body height 59 [in_i] 59 [in_i] eCW1 ([facility]) Body mass index (BMI) [Ratio] 17.93 kg/m2 17.93 kg/m2 eCW1 ([facility]) Heart rate 100 /min 100 /min eCW1 ([facility]) Respiratory rate 18 /min 18 /min eCW1 ([facility]) Body temperature 97.4 [degF] 97.4 [degF] eCW1 ( [facility]) Systolic blood pressure 100 mm[Hg] 100 mm[Hg] e CW1 ([facility]) Diastolic blood pressure 62 mm[Hg] 62 mm[Hg] eCW1 ([facility]) Heart rate 99 /min 99 /min eCW1 ([facility]) Body mass index (BMI) [Ratio] 17.77 kg/m2 17.77 kg/m2 eCW1 ([facility]) Respiratory rate 16 /min 16 /min eCW1 ([facility]) Body weight 88 [lb_av] 88 [lb_av] eCW1 ([facility]) Body height 59 [in_i] 59 [in_i] eCW1 ([facility]) Body temperature 98.9 [degF] 98.9 [degF] eCW1 ( [facility]) Systolic blood pressure 98 mm[Hg] 98 mm[Hg] e CW1 ([facility]) Diastolic blood pressure 62 mm[Hg] 62 mm[Hg] eCW1 ([facility]) Body weight 93 [lb_av] 93 [lb_av] eCW1 ([facility]) Body height 59 [in_i] 59 [in_i] eCW1 ([facility]) Body mass index (BMI) [Ratio] 18.78 kg/m2 18.78 kg/m2 eCW1 ([facility]) Systolic blood pressure 120 mm[Hg] 120 mm[Hg] e CW1 ([facility]) Diastolic blood pressure 82 mm[Hg] 82 mm[Hg] eCW1 ([facility]) Body temperature 98.2 [degF] 98.2 [degF] eCW1 ( [facility]) Systolic blood pressure 84 mm[Hg] 84 mm[Hg] e CW1 ([facility]) Diastolic blood pressure 58 mm[Hg] 58 mm[Hg] eCW1 ([facility]) Body weight 91 [lb_av] 91 [lb_av] eCW1 ([facility]) Body height 59 [in_i] 59 [in_i] eCW1 ([facility]) Body mass index (BMI) [Ratio] 18.38 kg/m2 18.38 kg/m2 eCW1 ([facility]) Heart rate 114 /min 114 /min eCW1 ([facility]) Respiratory rate 18 /min 18 /min eCW1 ([facility]) Body weight 95 [lb_av] 95 [lb_av] eCW1 ([facility]) Body temperature 98.4 [degF] 98.4 [degF] eCW1 ( [facility]) Body height 59 [in_i] 59 [in_i] eCW1 ([facility]) Body mass index (BMI) [Ratio] 19.19 kg/m2 19.19 kg/m2 eCW1 ([facility]) Systolic blood pressure 108 mm[Hg] 108 mm[Hg] e CW1 ([facility]) Heart rate 107 /min 107 /min eCW1 ([facility]) Respiratory rate 18 /min 18 /min eCW1 ([facility]) Diastolic blood pressure 76 mm[Hg] 76 mm[Hg] eCW1 ([facility]) Body weight 91 [lb_av] 91 [lb_av] eCW1 ([facility]) Body height 59 [in_i] 59 [in_i] eCW1 ([facility]) Body mass index (BMI) [Ratio] 18.38 kg/m2 18.38 kg/m2 eCW1 ([facility]) Heart rate 108 /min 108 /min eCW1 ([facility]) Respiratory rate 18 /min 18 /min eCW1 ([facility]) Body temperature 97.8 [degF] 97.8 [degF] eCW1 ( [facility]) Systolic blood pressure 112 mm[Hg] 112 mm[Hg] e CW1 ([facility]) Diastolic blood pressure 78 mm[Hg] 78 mm[Hg] eCW1 ([facility]) Body weight 44.169 kg 44.169 kg [facility] ([facility], ) Body surface area Derived from formula 1.32 m2 1.32 m2 [facility] ([facility], ) [place] body weight 100 [lb_av] 100 [lb_av] MEDEN T ([facility]) Systolic blood pressure 110 mm[Hg] 110 mm[Hg] M EDENT ([facility], ) Diastolic blood pressure 78 mm[Hg] 78 mm[Hg] MEDENT ([facility]) Heart rate 94 /min 94 /min [facility] ([facility], ) Oxygen saturation in Arterial blood by Pulse oximetry 97 % 97 % [facility] ([facility]) Respiratory rate 18 /min 18 /min [facility] ( [facility]) Body temperature 95.7 [degF] 95.7 [degF] [facility] ([facility], ) Body height 57 [in_i] 57 [in_i] [facility] ([facility], ) 4'9" Body weight 97.38 [lb_av] 97.38 [lb_av] [facility] ([facility]) Body mass index (BMI) [Ratio] 21.1 kg/m2 21.1 k g/m2 [facility] ([facility] ) Heart rate 97 /min 97 /min eCW1 ([facility]) Body weight 98.8 [lb_av] 98.8 [lb_av] eCW1 ([facility]) Body weight 44.8 kg 44.8 kg eCW1 ([facility]) Body height 59 [in_i] 59 [in_i] eCW1 ([facility]) Body mass index (BMI) [Ratio] 19.95 kg/m2 19.95 kg/m2 eCW1 ([facility]) Respiratory rate 20 /min 20 /min eCW1 ([facility]) Body temperature 99.5 [degF] 99.5 [degF] eCW1 ( [facility]) Systolic blood pressure 112 mm[Hg] 112 mm[Hg] e CW1 ([facility]) Diastolic blood pressure 60 mm[Hg] 60 mm[Hg] eCW1 ([facility]) Body weight 97 [lb_av] 97 [lb_av] eCW1 ([facility]) Body height 59 [in_i] 59 [in_i] eCW1 ([facility]) Body mass index (BMI) [Ratio] 19.59 kg/m2 19.59 kg/m2 eCW1 ([facility]) Heart rate 128 /min 128 /min eCW1 ([facility]) Respiratory rate 22 /min 22 /min eCW1 ([facility]) Body temperature 98.6 [degF] 98.6 [degF] eCW1 ( [facility]) Systolic blood pressure 118 mm[Hg] 118 mm[Hg] e CW1 ([facility]) Diastolic blood pressure 68 mm[Hg] 68 mm[Hg] eCW1 ([facility]) Body weight 105 [lb_av] 105 [lb_av] eCW1 ([facility]) Body height 59 [in_i] 59 [in_i] eCW1 ([facility]) Body mass index (BMI) [Ratio] 21.21 kg/m2 21.21 kg/m2 eCW1 ([facility]) Heart rate 128 /min 128 /min eCW1 ([facility]) Respiratory rate 24 /min 24 /min eCW1 ([facility]) Body temperature 98.6 [degF] 98.6 [degF] eCW1 ( [facility]) Systolic blood pressure 122 mm[Hg] 122 mm[Hg] e CW1 ([facility]) Diastolic blood pressure 60 mm[Hg] 60 mm[Hg] eCW1 ([facility]) Body height 59 [in_i] 59 [in_i] eCW1 ([facility]) Body mass index (BMI) [Ratio] 20.80 kg/m2 20.80 kg/m2 eCW1 ([facility]) Heart rate 78 /min 78 /min eCW1 ([facility]) Respiratory rate 18 /min 18 /min eCW1 ([facility]) Body temperature 98.4 [degF] 98.4 [degF] eCW1 ( [facility]) Systolic blood pressure 98 mm[Hg] 98 mm[Hg] e CW1 ([facility]) Diastolic blood pressure 64 mm[Hg] 64 mm[Hg] eCW1 ([facility]) Body weight 103 [lb_av] 103 [lb_av] eCW1 ([facility]) Systolic blood pressure 106 mm[Hg] 106 mm[Hg] [facility] Oxygen saturation in Arterial blood by Pulse oximetry 96 % 96 % [facility] Diastolic blood pressure 66 mm[Hg] 66 mm[Hg] [facility] Heart rate 72 /min 72 /min [facility] Body temperature 36.78 Bhavna 36.78 Bhavna [facility] Respiratory rate 14 /min 14 /min [facility] Body weight 48.081 kg 48.081 kg [facility] Body mass index (BMI) [Ratio] 22.15 kg/m2 22.15 kg/m2 [facility] Body height 147.3 cm 147.3 cm [facility] Body weight 108 [lb_av] 108 [lb_av] eCW1 ([facility]) Body height 59 [in_i] 59 [in_i] eCW1 ([facility]) Body mass index (BMI) [Ratio] 21.81 kg/m2 21.81 kg/m2 eCW1 ([facility]) Heart rate 110 /min 110 /min eCW1 ([facility]) Respiratory rate 18 /min 18 /min eCW1 ([facility]) Body temperature 97.6 [degF] 97.6 [degF] eCW1 ( [facility]) Systolic blood pressure 118 mm[Hg] 118 mm[Hg] e CW1 ([facility]) Diastolic blood pressure 62 mm[Hg] 62 mm[Hg] eCW1 ([facility]) Body weight 109 [lb_av] 109 [lb_av] eCW1 ([facility]) Body height 59 [in_i] 59 [in_i] eCW1 ([facility]) Body mass index (BMI) [Ratio] 22.01 kg/m2 22.01 kg/m2 eCW1 ([facility]) Heart rate 118 /min 118 /min eCW1 ([facility]) Respiratory rate 18 /min 18 /min eCW1 ([facility]) Body temperature 18 [degF] 18 [degF] eCW1 ([facility]) Systolic blood pressure 128 mm[Hg] 128 mm[Hg] e CW1 ([facility]) Diastolic blood pressure 72 mm[Hg] 72 mm[Hg] eCW1 ([facility]) Patient Treatment Plan of Care Planned Activity Planned Date Details Description Data Source (s) Prednisone 10 MG Oral Tablet 01/07/2021 12:00:00 AM EDT eCW1 ([facility]) Prednisone 10 MG Oral Tablet 01/07/2021 12:00:00 AM EDT eCW1 ([facility]) Prednisone 10 MG Oral Tablet 01/07/2021 12:00:00 AM EDT eCW1 ([facility]) Prednisone 10 MG Oral Tablet 01/07/2021 12:00:00 AM EDT eCW1 ([facility]) Prednisone 10 MG Oral Tablet 01/07/2021 12:00:00 AM EDT eCW1 ([facility]) Prednisone 10 MG Oral Tablet 01/07/2021 12:00:00 AM EDT eCW1 ([facility]) Prednisone 20 MG Oral Tablet 12/17/2020 12:00:00 AM EDT eCW1 ([facility]) Ketorolac Tromethamine 10 MG Oral Tablet 12/17/2020 12:00:00 AM EDT eCW1 ([facility]) Prednisone 20 MG Oral Tablet 12/17/2020 12:00:00 AM EDT eCW1 ([facility]) Ketorolac Tromethamine 10 MG Oral Tablet 12/17/2020 12:00:00 AM EDT eCW1 ([facility]) Prednisone 20 MG Oral Tablet 12/17/2020 12:00:00 AM EDT eCW1 ([facility]) Ketorolac Tromethamine 10 MG Oral Tablet 12/17/2020 12:00:00 AM EDT eCW1 ([facility]) Prednisone 5 MG Oral Tablet 11/15/2020 12:00:00 AM EDT eCW1 ([facility]) Prednisone 5 MG Oral Tablet 11/15/2020 12:00:00 AM EDT eCW1 ([facility]) Prednisone 5 MG Oral Tablet 11/15/2020 12:00:00 AM EDT eCW1 ([facility]) Nifedipine 10 MG Oral Capsule 10/24/2020 12:00:00 AM EDT eCW1 ([facility]) Nifedipine 10 MG Oral Capsule 10/24/2020 12:00:00 AM EDT eCW1 ([facility]) Nifedipine 10 MG Oral Capsule 10/24/2020 12:00:00 AM EDT eCW1 ([facility]) Nifedipine 10 MG Oral Capsule 10/24/2020 12:00:00 AM EDT eCW1 ([facility]) Nifedipine 10 MG Oral Capsule 10/24/2020 12:00:00 AM EDT eCW1 ([facility]) Nifedipine 10 MG Oral Capsule 10/24/2020 12:00:00 AM EDT eCW1 ([facility]) Nifedipine 10 MG Oral Capsule 10/24/2020 12:00:00 AM EDT eCW1 ([facility]) Nifedipine 10 MG Oral Capsule 10/24/2020 12:00:00 AM EDT eCW1 ([facility]) Nifedipine 10 MG Oral Capsule 10/24/2020 12:00:00 AM EDT eCW1 ([facility]) Bisacodyl 5 MG Delayed Release Oral Tablet [Dulcolax] 09/19/2020 12:00:00 AM EDT eCW1 ([facility]) Bisacodyl 5 MG Delayed Release Oral Tablet [Dulcolax] 09/19/2020 12:00:00 AM EDT eCW1 ([facility]) Bisacodyl 5 MG Delayed Release Oral Tablet [Dulcolax] 09/19/2020 12:00:00 AM EDT eCW1 ([facility]) Bisacodyl 5 MG Delayed Release Oral Tablet [Dulcolax] 09/19/2020 12:00:00 AM EDT eCW1 ([facility]) Bisacodyl 5 MG Delayed Release Oral Tablet [Dulcolax] 09/19/2020 12:00:00 AM EDT eCW1 ([facility]) Bisacodyl 5 MG Delayed Release Oral Tablet [Dulcolax] 09/19/2020 12:00:00 AM EDT eCW1 ([facility]) Bisacodyl 5 MG Delayed Release Oral Tablet [Dulcolax] 09/19/2020 12:00:00 AM EDT eCW1 ([facility]) Bisacodyl 5 MG Delayed Release Oral Tablet [Dulcolax] 09/19/2020 12:00:00 AM EDT eCW1 ([facility]) Bisacodyl 5 MG Delayed Release Oral Tablet [Dulcolax] 09/19/2020 12:00:00 AM EDT eCW1 ([facility]) sildenafil 20 MG Oral Tablet 09/11/2020 12:00:00 AM EDT eCW1 ([facility]) sildenafil 20 MG Oral Tablet 09/11/2020 12:00:00 AM EDT eCW1 ([facility]) sildenafil 20 MG Oral Tablet 09/11/2020 12:00:00 AM EDT eCW1 ([facility]) sildenafil 20 MG Oral Tablet 09/11/2020 12:00:00 AM EDT eCW1 ([facility]) sildenafil 20 MG Oral Tablet 09/11/2020 12:00:00 AM EDT eCW1 ([facility]) sildenafil 20 MG Oral Tablet 09/11/2020 12:00:00 AM EDT eCW1 ([facility]) sildenafil 20 MG Oral Tablet 09/11/2020 12:00:00 AM EDT eCW1 ([facility]) sildenafil 20 MG Oral Tablet 09/11/2020 12:00:00 AM EDT eCW1 ([facility]) Prednisone 5 MG Oral Tablet 08/27/2020 12:00:00 AM EDT eCW1 ([facility]) Prednisone 5 MG Oral Tablet 08/27/2020 12:00:00 AM EDT eCW1 ([facility]) Metronidazole 500 MG Oral Tablet 08/23/2020 12:00:00 AM EDT eCW1 ([facility]) Metronidazole 500 MG Oral Tablet 08/23/2020 12:00:00 AM EDT eCW1 ([facility]) Metronidazole 500 MG Oral Tablet 08/23/2020 12:00:00 AM EDT eCW1 ([facility]) dalbavancin 20 MG/ML Injectable Solution [Dalvance] 08/16/19 12:00:00 AM EDT eCW1 ([facility]) Minocycline 100 MG Oral Capsule 08/07/2020 12:00:00 AM EDT eCW1 ([facility]) Nifedipine 10 MG Oral Capsule 08/07/2020 12:00:00 AM EDT eCW1 ([facility]) Minocycline 100 MG Oral Capsule 08/07/2020 12:00:00 AM EDT eCW1 ([facility]) Nifedipine 10 MG Oral Capsule 08/07/2020 12:00:00 AM EDT eCW1 ([facility]) Minocycline 100 MG Oral Capsule 08/07/2020 12:00:00 AM EDT eCW1 ([facility]) Nifedipine 10 MG Oral Capsule 08/07/2020 12:00:00 AM EDT eCW1 ([facility]) cefdinir 300 MG Oral Capsule 07/18/2020 12:00:00 AM EDT eCW1 ([facility]) cefdinir 300 MG Oral Capsule 07/18/2020 12:00:00 AM EDT eCW1 ([facility]) cefdinir 300 MG Oral Capsule 07/18/2020 12:00:00 AM EDT eCW1 ([facility]) Ondansetron 8 MG Disintegrating Oral Tablet 07/15/2020 12:00:00 AM EDT eCW1 ([facility]) Ondansetron 8 MG Disintegrating Oral Tablet 07/15/2020 12:00:00 AM EDT eCW1 ([facility]) Ondansetron 8 MG Disintegrating Oral Tablet 07/15/2020 12:00:00 AM EDT eCW1 ([facility]) Prednisone 20 MG Oral Tablet 07/02/2020 12:00:00 AM EDT eCW1 ([facility]) Prednisone 20 MG Oral Tablet 07/02/2020 12:00:00 AM EDT eCW1 ([facility]) Prednisone 20 MG Oral Tablet 07/02/2020 12:00:00 AM EDT eCW1 ([facility]) Prednisone 20 MG Oral Tablet 07/02/2020 12:00:00 AM EDT eCW1 ([facility]) Prednisone 20 MG Oral Tablet 07/02/2020 12:00:00 AM EDT eCW1 ([facility]) Prednisone 20 MG Oral Tablet 07/02/2020 12:00:00 AM EDT eCW1 ([facility]) Prednisone 20 MG Oral Tablet 07/02/2020 12:00:00 AM EDT eCW1 ([facility]) Prednisone 20 MG Oral Tablet 07/02/2020 12:00:00 AM EDT eCW1 ([facility]) Hydroxychloroquine Sulfate 200 MG Oral Tablet [[place]] 06/26/2020 12:00:00 AM EDT eCW1 ([facility]) Hydroxychloroquine Sulfate 200 MG Oral Tablet [[place]] 06/26/2020 12:00:00 AM EDT eCW1 ([facility]) Nitroglycerin 0.02 MG/MG Topical Ointment [Nitro-Bid] 06/26/2020 12:00:00 AM EDT eCW1 ([facility]) Hydroxychloroquine Sulfate 200 MG Oral Tablet [[place]] 06/26/2020 12:00:00 AM EDT eCW1 ([facility]) Nitroglycerin 0.02 MG/MG Topical Ointment [Nitro-Bid] 06/26/2020 12:00:00 AM EDT eCW1 ([facility]) Hydroxychloroquine Sulfate 200 MG Oral Tablet [[place]] 06/26/2020 12:00:00 AM EDT eCW1 ([facility]) Nitroglycerin 0.02 MG/MG Topical Ointment [Nitro-Bid] 06/26/2020 12:00:00 AM EDT eCW1 ([facility]) Hydroxychloroquine Sulfate 200 MG Oral Tablet [[place]] 06/26/2020 12:00:00 AM EDT eCW1 ([facility]) Nitroglycerin 0.02 MG/MG Topical Ointment [Nitro-Bid] 06/26/2020 12:00:00 AM EDT eCW1 ([facility]) Hydroxychloroquine Sulfate 200 MG Oral Tablet [[place]] 06/26/2020 12:00:00 AM EDT eCW1 ([facility]) Nitroglycerin 0.02 MG/MG Topical Ointment [Nitro-Bid] 06/26/2020 12:00:00 AM EDT eCW1 ([facility]) Hydroxychloroquine Sulfate 200 MG Oral Tablet [[place]] 06/26/2020 12:00:00 AM EDT eCW1 ([facility]) Nitroglycerin 0.02 MG/MG Topical Ointment [Nitro-Bid] 06/26/2020 12:00:00 AM EDT eCW1 ([facility]) Nitroglycerin 0.02 MG/MG Topical Ointment [Nitro-Bid] 06/26/2020 12:00:00 AM EDT eCW1 ([facility]) Hydroxychloroquine Sulfate 200 MG Oral Tablet [[place]] 06/26/2020 12:00:00 AM EDT eCW1 ([facility]) Nitroglycerin 0.02 MG/MG Topical Ointment [Nitro-Bid] 06/26/2020 12:00:00 AM EDT eCW1 ([facility]) Hydroxychloroquine Sulfate 200 MG Oral Tablet [[place]] 06/26/2020 12:00:00 AM EDT eCW1 ([facility]) Nitroglycerin 0.02 MG/MG Topical Ointment [Nitro-Bid] 06/26/2020 12:00:00 AM EDT eCW1 ([facility]) Hydroxychloroquine Sulfate 200 MG Oral Tablet [[place]] 06/26/2020 12:00:00 AM EDT eCW1 ([facility]) Nitroglycerin 0.02 MG/MG Topical Ointment [Nitro-Bid] 06/26/2020 12:00:00 AM EDT eCW1 ([facility]) celecoxib 200 MG Oral Capsule [Celebrex] 06/17/2020 12:00:00 AM EDT eCW1 ([facility]) celecoxib 200 MG Oral Capsule [Celebrex] 06/17/2020 12:00:00 AM EDT eCW1 ([facility]) meloxicam 15 MG Oral Tablet 03/18/2020 12:00:00 AM [facility] Ketorolac Tromethamine 10 MG Oral Tablet 03/12/2020 12:00:00 AM EST eCW1 ([facility]) Ketorolac Tromethamine 10 MG Oral Tablet 03/12/2020 12:00:00 AM EST eCW1 ([facility]) Ketorolac Tromethamine 10 MG Oral Tablet 03/12/2020 12:00:00 AM EST eCW1 ([facility]) Ketorolac Tromethamine 10 MG Oral Tablet 03/12/2020 12:00:00 AM EST eCW1 ([facility]) cefdinir 300 MG Oral Capsule 02/20/2020 12:00:00 AM EST eCW1 ([facility]) Phenergan 25 MG 02/06/2020 12:00:00 AM EST eCW1 ([facility]) Dicyclomine Hydrochloride 20 MG Oral Tablet 02/06/2020 12:00:00 AM EST eCW1 ([facility]) Phenergan 25 MG 02/06/2020 12:00:00 AM EST eCW1 ([facility]) Dicyclomine Hydrochloride 20 MG Oral Tablet 02/06/2020 12:00:00 AM EST eCW1 ([facility]) Phenergan 25 MG 02/06/2020 12:00:00 AM EST eCW1 ([facility]) Dicyclomine Hydrochloride 20 MG Oral Tablet 02/06/2020 12:00:00 AM EST eCW1 ([facility]) Potassium Chloride [place] ER 10 MEQ 12/25/2019 12:00:00 AM EDT eCW1 ([facility]) Potassium Chloride [place] ER 10 MEQ 12/25/2019 12:00:00 AM EDT eCW1 ([facility]) Potassium Chloride [place] ER 10 MEQ 12/25/2019 12:00:00 AM EDT eCW1 ([facility]) Potassium Chloride 20 MEQ 12/21/2019 12:00:00 AM EDT eCW1 ([facility]) Triamcinolone Acetonide 0.001 MG/MG Oral Paste 12/21/2019 12:00:00 AM EDT eCW1 ([facility]) Potassium Chloride 20 MEQ 12/21/2019 12:00:00 AM EDT eCW1 ([facility]) Triamcinolone Acetonide 0.001 MG/MG Oral Paste 12/21/2019 12:00:00 AM EDT eCW1 ([facility]) Potassium Chloride 20 MEQ 12/21/2019 12:00:00 AM EDT eCW1 ([facility]) Triamcinolone Acetonide 0.001 MG/MG Oral Paste 12/21/2019 12:00:00 AM EDT eCW1 ([facility]) Potassium Chloride 20 MEQ 12/21/2019 12:00:00 AM EDT eCW1 ([facility]) Triamcinolone Acetonide 0.001 MG/MG Oral Paste 12/21/2019 12:00:00 AM EDT eCW1 ([facility]) Potassium Chloride 20 MEQ 12/21/2019 12:00:00 AM EDT eCW1 ([facility]) Triamcinolone Acetonide 0.001 MG/MG Oral Paste 12/21/2019 12:00:00 AM EDT eCW1 ([facility]) Potassium Chloride 20 MEQ 12/21/2019 12:00:00 AM EDT eCW1 ([facility]) Triamcinolone Acetonide 0.001 MG/MG Oral Paste 12/21/2019 12:00:00 AM EDT eCW1 ([facility]) Potassium Chloride 20 MEQ 12/21/2019 12:00:00 AM EDT eCW1 ([facility]) Triamcinolone Acetonide 0.001 MG/MG Oral Paste 12/21/2019 12:00:00 AM EDT eCW1 ([facility])
--- OUTSIDE RECORDS SUMMARY | 2021-02-14 06:48 | CCD ---
Author Author [facility] Organization [facility] Address Unknown Phone Unavailable Support Name Relationship Address Phone NO EMERGENCY, CONTACT Next Of Kin [address] [address] [address] [place] [address] NO, CONTACT EMERGENCY Next Of Kin [address] [address] NO, CONTACT Next Of Kin Unknown Unavailable NO EMERGANCY, CONTACT Next Of Kin [address] [place] [address] Estella DOTY Next Of Kin [address] [place] [address] JOVON DELACRUZ Next Of Kin [address] [place] [address] [facility] KARMA Next Of Kin [address] [place] [address] [place] [address] NONE, PATIENT PER Next Of Kin - -, - - - [place] Next Of Kin [address] [place] [address] CONTACT, OTHER NO Next Of Kin - - -, [place] - - DISABLED Next Of Kin Unknown Unavailable ZEESHAN HODGSON Next Of Kin [address] [place], [place] [id number] UE Next Of Kin Unknown Unavailable MILES BELLAMY Next Of Kin [address] [facility] [address] [place] [address] Shayy DOTY Next Of Kin [address] [place] [address] Jovon Delacruz ECON [address] [facility] [address] [place] [address] Unavailable Yas Bellamy Unknown Unavailable Care Team Providers Care Meat Stocker Name Role Phone Hospital Lab, Area [facility] Unavailable Unavailable Estella Casillas MD Unavailable Unavailable [...] MD Unavailable Unavailable MollisonOle MD Unavailable Unavailable MollisonlOe MD Unavailable Unavailable MollisonOle MD Unavailable Unavailable [...] Unavailable Unavailable Beatriz Jose MD Unavailable Unavailable Baetriz Jose MD Unavailable Unavailable Beatriz Jose MD [...] Unavailable Unavailable Beatriz Jose MD Unavailable Unavailable Baetriz Jose MD Unavailable Unavailable Beatriz Jose MD [...] is protected by Article 27-F of the [facility] Public Health law. If you continue you may have access to information: Regarding HIV / AIDS; Provided by facilities licensed or operated by the [facility] Office of Mental Health; or Provided by the [facility] Office for People With Developmental Disabilities. If such information is present, then the following [facility] mandated warning applies: This information has been [...] law may result in a fine or residential sentence or both. A general authorization for the release of medical or other information is NOT sufficient authorization for further disc losure. Encounters Encounter Providers Location Date Indications Data Source(s ) Outpatient Attender: IRMA Mccrayerramanda: Kandice martinez 02/20/2021 12:00:00 AM EST [facility] Unknown [address] [facility] [address] 01/29/2021 12:00:00 AM EST eCW1 ([facility]) Unknown [address] [facility] [address] 01/28/2021 12:00:00 AM EST eCW1 ([facility]) Unknown [address] [facility] [place] [address] 01/28/2021 12:00:00 AM EST eCW1 ([facility]) Unknown [address] [facility] [address] 01/22/2021 12:00:00 AM EST [facility]CW1 ([facility]) Unknown [address] [facility] [address] 01/20/2021 12:00:00 AM EST eCW1 ([facility]) Unknown [address] [facility] [address] 01/17/2021 12:00:00 AM EST eCW1 ([facility]) Unknown [address] [facility] [address] 12/31/2020 12:00:00 AM EDT eCW1 ([facility]) Unknown [address] [facility] [address] 12/30/2020 12:00:00 AM EDT eCW1 ([facility]) Outpatient [address] [facility] [address] 12/17/2020 12:00:00 AM EDT eCW1 ([facility]) Outpatient Attender: IRMA DAVIS MD 12/12/2020 12:00:0 0 AM [facility] Unknown [address] [facility] [address] 12/10/2020 12:00:00 AM EDT eCW1 ([facility]) Unknown [address] [facility] [address] 12/06/2020 12:00:00 AM EDT eCW1 ([facility]) Unknown [address] [facility] [address] 12/06/2020 12:00:00 AM EDT eCW1 ([facility]) Unknown [address] [facility] [address] 12/05/2020 12:00:00 AM EDT eCW1 ([facility]) Unknown [address] [facility] [address] 12/05/2020 12:00:00 AM EDT eCW1 ([facility]) Unknown [address] [facility] [address] 11/27/2020 12:00:00 AM EDT eCW1 ([facility]) Unknown [address] [facility] [address] 11/27/2020 12:00:00 AM EDT eCW1 ([facility]) Unknown [address] [facility] [address] 11/27/2020 12:00:00 AM EDT eCW1 ([facility]) Outpatient [address] [facility] [address] 11/21/2020 12:00:00 AM EDT eCW1 ([facility]) Unknown [address] [facility] [address] 11/21/2020 12:00:00 AM EDT eCW1 ([facility]) Unknown [address] [facility] [address] 11/15/2020 12:00:00 AM EDT eCW1 ([facility]) Unknown [address] [facility] [address] 11/14/2020 12:00:00 AM EDT eCW1 ([facility]) Emergency Attender: Harsh Umana MD 11/06/2020 12:39:00 AM EDT - 11/06/2020 01:20:00 AM EDT [facility] Patient discharged. Unknown [address] [facility] [address] 11/05/2020 12:00:00 AM EDT eCW1 ([facility]) Unknown [address] [facility] [address] 11/01/2020 12:00:00 AM EDT eCW1 ([facility]) Unknown [address] [facility] [address] 11/01/2020 12:00:00 AM EDT eCW1 ([facility]) Unknown [address] [facility] [address] 10/28/2020 12:00:00 AM EDT eCW1 ([facility]) Unknown [address] [facility] [address] 10/28/2020 12:00:00 AM EDT eCW1 ([facility]) Unknown [address] [facility] [address] 10/28/2020 12:00:00 AM EDT eCW1 ([facility]) Outpatient [address] [facility] [address] 10/24/2020 12:00:00 AM EDT eCW1 ([facility]) Unknown [address] [facility] [address] 10/24/2020 12:00:00 AM EDT eCW1 ([facility]) Unknown [address] [facility] [address] 10/08/2020 12:00:00 AM EDT eCW1 ([facility]) Unknown [address] [facility] [address] 10/07/2020 12:00:00 AM EDT eCW1 ([facility]) Unknown [address] [facility] [address] 09/30/2020 12:00:00 AM EDT eCW1 ([facility]) Unknown [address] [facility] [address] 09/26/2020 12:00:00 AM EDT eCW1 ([facility]) Unknown [address] [facility] [address] 09/26/2020 12:00:00 AM EDT eCW1 ([facility]) Unknown [address] [facility] [address] 09/24/2020 12:00:00 AM EDT eCW1 ([facility]) Unknown [address] [facility] [address] 09/20/2020 12:00:00 AM EDT eCW1 ([facility]) Outpatient [address] [facility] [address] 09/19/2020 12:00:00 AM EDT eCW1 ([facility]) Unknown [address] [facility] [address] 09/17/2020 12:00:00 AM EDT eCW1 ([facility]) Unknown [address] [facility] [address] 09/17/2020 12:00:00 AM EDT eCW1 ([facility]) Outpatient [address] [facility] [address] 09/11/2020 12:00:00 AM EDT eCW1 ([facility]) Unknown [address] [facility] [address] 09/03/2020 12:00:00 AM EDT eCW1 ([facility]) Unknown [address] [facility] [address] 09/02/2020 12:00:00 AM EDT eCW1 ([facility]) Unknown [address] [facility] [address] 09/02/2020 12:00:00 AM EDT eCW1 ([facility]) Outpatient [address] [facility] [address] 08/27/2020 12:00:00 AM EDT eCW1 ([facility]) Unknown [address] [facility] [address] 08/23/2020 12:00:00 AM EDT eCW1 ([facility]) Outpatient [address] [facility] [address] 08/21/2020 12:00:00 AM EDT eCW1 ([facility]) Unknown [address] [facility] [address] 08/20/2020 12:00:00 AM EDT eCW1 ([facility]) Outpatient [address] [facility] [address] 08/15/2020 12:00:00 AM EDT eCW1 ([facility]) Unknown [address] [facility] [address] 08/09/2020 12:00:00 AM EDT eCW1 ([facility]) Unknown [address] [facility] [place] [address] 08/08/2020 12:00:00 AM EDT eCW1 ([facility]) Outpatient [address] [facility] [address] 08/07/2020 12:00:00 AM EDT eCW1 ([facility]) Unknown [address] [facility] [address] 08/06/2020 12:00:00 AM EDT eCW1 ([facility]) Unknown [address] [facility] [place] [address] 08/01/2020 12:00:00 AM EDT eCW1 ([facility]) Unknown [address] [facility] [place] [address] 07/26/2020 12:00:00 AM EDT eCW1 ([facility]) Outpatient [address] [facility] [place] [address] 07/25/2020 12:00:00 AM EDT eCW1 ([facility]) Unknown [address] [facility] [place] [address] 07/19/2020 12:00:00 AM EDT eCW1 ([facility]) Unknown [address] [facility] [place] [address] 07/18/2020 12:00:00 AM EDT eCW1 ([facility]) Unknown [address] [facility] [place] [address] 07/18/2020 12:00:00 AM EDT eCW1 ([facility]) Outpatient [address] [facility] [place] [address] 07/15/2020 12:00:00 AM EDT eCW1 ([facility]) Unknown [address] [facility] [place] [address] 07/05/2020 12:00:00 AM EDT eCW1 ([facility]) Unknown [address] [facility] [place] [address] 07/05/2020 12:00:00 AM EDT eCW1 ([facility]) Unknown [address] [facility] [place] [address] 07/04/2020 12:00:00 AM EDT eCW1 ([facility]) Unknown [address] [facility] [address] 07/04/2020 12:00:00 AM EDT eCW1 ([facility]) Emergency Attender: RINA MARKS 2020 12:48:00 PM EDT - 07/03/2020 02:00:00 PM EDT [facility] Patient discharged. Unknown [address] [facility] [place] [address] 07/03/2020 12:00:00 AM EDT eCW1 ([facility]) Unknown [address] [facility] [place] [address] 07/03/2020 12:00:00 AM EDT eCW1 ([facility]) Unknown [address] [facility] [place] [address] 07/03/2020 12:00:00 AM EDT eCW1 ([facility]) Outpatient [address] [facility] [address] 07/02/2020 12:00:00 AM EDT eCW1 ([facility]) Outpatient Attender: Walker Saba/Mago/Zaid/Maddy luna 06/28/2020 02:30:00 PM EDT [facility] ([facility]) Unknown [address] [facility] [address] 06/27/2020 12:00:00 AM EDT eCW1 ([facility]) Outpatient [address] [facility] [place] [address] 06/26/2020 12:00:00 AM EDT eCW1 ([facility]) Unknown [address] [facility] [place] [address] 06/20/2020 12:00:00 AM EDT eCW1 ([facility]) Outpatient [address] [facility] [place] [address] 06/17/2020 12:00:00 AM EDT eCW1 ([facility]) Unknown [address] [facility] [place] [address] 05/21/2020 12:00:00 AM EDT eCW1 ([facility]) Unknown [address] [facility] [place] [address] 05/17/2020 12:00:00 AM EST eCW1 ([facility]) Unknown [address] [facility] [place] [address] 05/09/2020 12:00:00 AM EST eCW1 ([facility]) Outpatient Attender: IRMA DAVIS MD 05/07/2020 12:00:0 0 AM [facility] Unknown [address] [facility] [place] [address] 05/03/2020 12:00:00 AM EST eCW1 ([facility]) Unknown [address] [facility] [address] 04/30/2020 12:00:00 AM EST eCW1 ([facility]) Outpatient Attender: [facility] 04/28/2020 04:1 8:00 PM EST [facility] Emergency Attender: CLAY VALE MD 04/28/2020 04:02:00 PM EST - 04/28/2020 08:13:00 PM EST [facility] Patient discharged. Outpatient Attender: IRMA DAVIS MD [id number] 04/25/2020 1 2:00:00 AM EST Osteomyelitis of vertebra, lumbar region [facility] Osteomyelitis of vertebra, lumbar region Outpatient Attender: IRMA DAVIS MD 04/25/2020 12:00:0 0 AM [facility] Outpatient Attender: IRMA DAVIS MD 04/25/2020 12:00:0 0 AM [facility] Unknown [address] [facility] [address] 03/26/2020 12:00:00 AM EST eCW1 ([facility]) Outpatient [address] [facility] [address] 03/21/2020 12:00:00 AM EST eCW1 ([facility]) Unknown [address] [facility] [place] [address] 03/21/2020 12:00:00 AM EST eCW1 ([facility]) Outpatient Attender: IRMA DAVIS MD [id number] 03/18/2020 1 2:00:00 AM [facility] Unknown [address] [facility] [place] [address] 03/18/2020 12:00:00 AM EST eCW1 ([facility]) Unknown [address] [facility] [place] [address] 03/13/2020 12:00:00 AM EST eCW1 ([facility]) Unknown [address] [facility] [place] [address] 03/13/2020 12:00:00 AM EST eCW1 ([facility]) Outpatient [address] [facility] [place] [address] 03/12/2020 12:00:00 AM EST eCW1 ([facility]) Unknown [address] [facility] [place] [address] 03/05/2020 12:00:00 AM EST eCW1 ([facility]) Unknown [address] [facility] [address] 02/26/2020 12:00:00 AM EST eCW1 ([facility]) Outpatient Attender: Betty Jose MD 02/20 02:14:26 PM EST - 02/21/2020 09:06:00 AM EST [facility] Patient discharged. Outpatient Attender: Betty Jose MD 02/20/2020 10:56:00 AM EST B95.52 [facility] B95.52 Outpatient Attender: Betty Jose MD 02/19 10:34:00 AM EST - 02/20/2020 11:34:00 AM EST [facility] TeleMedicine Est. Pt. Level 3 [address] [place] [address] 02/20/2020 12:00:00 AM EST [facility]CW1 [facility]) Unknown [address] [facility] [address] 02/20/2020 12:00:00 AM EST [facility]1 [facility] Unknown [address] [facility] [address] 02/19/2020 12:00:00 AM EST eCW1 ([facility]) Unknown [address] [facility] [address] 02/14/2020 12:00:00 AM EST eCW1 ([facility]) Unknown [address] [facility] [address] 02/06/2020 12:00:00 AM EST eCW1 ([facility]) H Attender: Demetrice Gilliam MDAdmitter: Demetrice Gilliam MD E S1-[id number] 01/10/2020 07:49:00 AM EST - 01/10/2020 10:57:[address] [facility] Patient discharged. Outpatient Referrer: Rosa Casillas MD MOB-MOB.PAT 1 03/10/2019 02:31:48 PM EST - 01/09/2020 02:31:52 PM EST [facility] Outpatient [address] [facility] [address] 01/02/2020 12:00:00 AM EDT eCW1 ([facility]) Unknown [address] [facility] [address] 01/02/2020 12:00:00 AM EDT eCW1 ([facility]) Unknown [address] [facility] [place] [address] 12/26/2019 12:00:00 AM EDT eCW1 ([facility]) Unknown [address] [facility] [place] [address] 12/22/2019 12:00:00 AM EDT eCW1 ([facility]) Unknown [address] [facility] [place] [address] 12/22/2019 12:00:00 AM EDT eCW1 ([facility]) Outpatient [address] [facility] [place] [address] 12/21/2019 12:00:00 AM EDT eCW1 ([facility]) Unknown [address] [facility] [place] [address] 12/21/2019 12:00:00 AM EDT eCW1 ([facility]) Outpatient Attender: Rosa Casillas MDAdmitter: Rosa Casillas MD [id number].CVAU 12/19/2019 01:33:[address] [facility] Immunizations Vaccine Date Status Description Data Source(s) COVID-19 VACCINE Moderna 01/09/2021 12:00:00 AM EDT completed [facility] Vaccine Series Complete: YESThis Data wa s Submitted to [facility]. COVID-19 VACCINE Moderna 12/04/2020 12:00:00 AM EDT completed [facility] Vaccine Series Complete: NOThis Data was Submitted to [facility] [employer]. influenza, recombinant, quadrIvalent,injectable, prese rvative free 11/21/2020 01:51:00 PM EDT completed eCW1 ([facility]) influenza, recombinant, quadrIvalent,injectable, prese rvative free 11/21/2020 01:51:00 PM EDT completed eCW1 ([facility]) influenza, recombinant, quadrIvalent,injectable, prese rvative free 11/21/2020 01:51:00 PM EDT completed eCW1 ([facility]) influenza, recombinant, quadrIvalent,injectable, prese rvative free 11/21/2020 01:51:00 PM EDT completed eCW1 ([facility]) influenza, recombinant, quadrIvalent,injectable, prese rvative free 11/21/2020 01:51:00 PM EDT completed eCW1 ([facility]) influenza, recombinant, quadrIvalent,injectable, prese rvative free 11/21/2020 01:51:00 PM EDT completed eCW1 ([facility]) influenza, recombinant, quadrIvalent,injectable, prese rvative free 11/21/2020 01:51:00 PM EDT completed eCW1 ([facility]) influenza, recombinant, quadrIvalent,injectable, prese rvative free 11/21/2020 01:51:00 PM EDT completed eCW1 ([facility]) influenza, recombinant, quadrIvalent,injectable, prese rvative free 11/21/2020 01:51:00 PM EDT completed eCW1 ([facility]) influenza, recombinant, quadrIvalent,injectable, prese rvative free 11/21/2020 01:51:00 PM EDT completed eCW1 ([facility]) influenza, recombinant, quadrIvalent,injectable, prese rvative free 11/21/2020 01:51:00 PM EDT completed eCW1 ([facility]) influenza, recombinant, quadrIvalent,injectable, prese rvative free 11/21/2020 01:51:00 PM EDT completed eCW1 ([facility]) influenza, recombinant, quadrIvalent,injectable, prese rvative free 11/21/2020 01:51:00 PM EDT completed eCW1 ([facility]) influenza, recombinant, quadrIvalent,injectable, prese rvative free 11/21/2020 01:51:00 PM EDT completed eCW1 ([facility]) influenza, recombinant, quadrIvalent,injectable, prese rvative free 11/21/2020 01:51:00 PM EDT completed eCW1 ([facility]) influenza, recombinant, quadrIvalent,injectable, prese rvative free 11/21/2020 01:51:00 PM EDT completed eCW1 ([facility]) influenza, recombinant, quadrIvalent,injectable, prese rvative free 11/21/2020 01:51:00 PM EDT completed eCW1 ([facility]) influenza, recombinant, quadrIvalent,injectable, prese rvative free 11/21/2020 01:51:00 PM EDT completed eCW1 ([facility]) influenza, recombinant, quadrIvalent,injectable, prese rvative free 11/21/2020 01:51:00 PM EDT completed eCW1 ([facility]) influenza, recombinant, quadrIvalent,injectable, prese rvative free 11/21/2020 01:51:00 PM EDT completed eCW1 ([facility]) influenza, recombinant, quadrIvalent,injectable, prese rvative free 11/21/2020 01:51:00 PM EDT completed eCW1 ([facility]) influenza, recombinant, quadrIvalent,injectable, prese rvative free 11/21/2020 01:51:00 PM EDT completed eCW1 ([facility]) Medications Medication Brand Name Start Date Product [...] EDT active predniSO NE 10 MG eCW1 ([facility]) Prednisone 10 MG Oral Tablet predniSONE 10 MG predniSONE 10 MG 01/07/2021 12:00:00 AM EDT active predniSO NE 10 MG eCW1 ([facility]) 10 mg 01/07/2021 12:00:00 AM EDT tablet [...] EDT active predniSO NE 10 MG eCW1 ([facility]) Prednisone 10 MG Oral Tablet predniSONE 10 MG predniSONE 10 MG 01/07/2021 12:00:00 AM EDT active predniSO NE 10 MG eCW1 ([facility]) Prednisone 10 MG Oral Tablet predniSONE 10 MG predniSONE 10 MG 01/07/2021 12:00:00 AM EDT active predniSO NE 10 MG eCW1 ([facility]) Hydroxychloroquine Sulfate 200 MG Oral Tablet HYDROXYCHLOROQ UINE SULFATE 01/07/2021 12:00:00 AM EDT tablet 90 TAKE ONE TABLE T BY MOUTH EVERY DAY TAKE ONE TABLET BY MOUTH EVERY DAY SOLD: 01/08/2021 [facility] Prednisone 10 MG Oral Tablet predniSONE 10 MG predniSONE 10 MG 01/07/2021 12:00:00 AM EDT active e CW1 ([facility]) Prednisone 20 MG Oral Tablet predniSONE 20 MG predniSONE 20 MG 12/17/2020 12:00:00 AM EDT 1.0 {tablet} active pr edniSONE 20 MG eCW1 ([facility]) Prednisone 20 MG Oral Tablet predniSONE 20 MG predniSONE 20 MG 12/17/2020 12:00:00 AM EDT 1.0 {tablet} active pr edniSONE 20 MG eCW1 ([facility]) Ketorolac Tromethamine 10 MG Oral Tablet Ketorolac Trometham ine 10 MG 12/17/2020 12:00:00 AM EDT active Ketorola c Tromethamine 10 MG eCW1 ([facility]) Ketorolac Tromethamine 10 MG Oral Tablet Ketorolac Trometham ine 10 MG 12/17/2020 12:00:00 AM EDT active Ketorola c Tromethamine 10 MG eCW1 ([facility]) Ketorolac Tromethamine 10 MG Oral Tablet Ketorolac Trometham ine 10 MG 12/17/2020 12:00:00 AM EDT active Ketorola c Tromethamine 10 MG eCW1 ([facility]) Prednisone 20 MG Oral Tablet predniSONE 20 MG predniSONE 20 MG 12/17/2020 12:00:00 AM EDT 1.0 {tablet} active pr edniSONE 20 MG eCW1 ([facility]) 20 mg 12/17/2020 12:00:00 AM EDT tablet [...] 1.0 {tablet} active predniSONE 5 MG eCW1 ([facility]) Prednisone 5 MG Oral Tablet predniSONE 5 MG predniSONE 5 MG 11/15/2020 12:00:00 AM EDT 1.0 {tablet} active predniSONE 5 MG eCW1 ([facility]) Prednisone 5 MG Oral Tablet predniSONE 5 MG predniSONE 5 MG 11/15/2020 12:00:00 AM EDT 1.0 {tablet} active predniSONE 5 MG eCW1 (Formerly [facility]) Prednisone 5 MG Oral Tablet predniSONE 5 MG predniSONE 5 MG 11/15/2020 12:00:00 AM EDT 1.0 {tablet} active predniSONE 5 MG eCW1 (Formerly [facility]) Prednisone 5 MG Oral Tablet predniSONE 5 MG predniSONE 5 MG 11/15/2020 12:00:00 AM EDT 1.0 {tablet} active predniSONE 5 MG eCW1 (Formerly [facility]) Prednisone 5 MG Oral Tablet predniSONE 5 MG predniSONE 5 MG 11/15/2020 12:00:00 AM EDT 1.0 {tablet} active predniSONE 5 MG eCW1 (Formerly [facility]) 5 mg 11/15/2020 12:00:00 AM EDT tablet [...] 1.0 {tablet} active predniSONE 5 MG eCW1 (Formerly [facility]) Prednisone 5 MG Oral Tablet predniSONE 5 MG predniSONE 5 MG 11/15/2020 12:00:00 AM EDT 1.0 {tablet} active predniSONE 5 MG eCW1 (Formerly [facility]) Prednisone 5 MG Oral Tablet predniSONE 5 MG predniSONE 5 MG 11/15/2020 12:00:00 AM EDT 1.0 {tablet} active predniSONE 5 MG eCW1 (Formerly [facility]) Prednisone 5 MG Oral Tablet predniSONE 5 MG predniSONE 5 MG 11/15/2020 12:00:00 AM EDT 1.0 {tablet} active predniSONE 5 MG eCW1 (Formerly [facility]) Prednisone 5 MG Oral Tablet predniSONE 5 MG predniSONE 5 MG 11/15/2020 12:00:00 AM EDT 1.0 {tablet} active predniSONE 5 MG eCW1 (Formerly [facility]) Prednisone 5 MG Oral Tablet predniSONE 5 MG predniSONE 5 MG 11/15/2020 12:00:00 AM EDT 1.0 {tablet} active predniSONE 5 MG eCW1 (Formerly [facility]) Prednisone 5 MG Oral Tablet predniSONE 5 MG predniSONE 5 MG 11/15/2020 12:00:00 AM EDT 1.0 {tablet} active predniSONE 5 MG eCW1 (Formerly [facility]) Prednisone 5 MG Oral Tablet predniSONE 5 MG predniSONE 5 MG 11/15/2020 12:00:00 AM EDT 1.0 {tablet} active predniSONE 5 MG eCW1 (Formerly [facility]) Prednisone 5 MG Oral Tablet predniSONE 5 MG predniSONE 5 MG 11/15/2020 12:00:00 AM EDT 1.0 {tablet} active predniSONE 5 MG eCW1 (Formerly [facility]) Prednisone 5 MG Oral Tablet predniSONE 5 MG predniSONE 5 MG 11/15/2020 12:00:00 AM EDT 1.0 {tablet} active predniSONE 5 MG eCW1 (Formerly [facility]) Prednisone 5 MG Oral Tablet predniSONE 5 MG predniSONE 5 MG 11/15/2020 12:00:00 AM EDT 1.0 {tablet} active predniSONE 5 MG eCW1 (Formerly [facility]) Prednisone 5 MG Oral Tablet predniSONE 5 MG predniSONE 5 MG 11/15/2020 12:00:00 AM EDT 1.0 {tablet} active predniSONE 5 MG eCW1 (Formerly [facility]) Prednisone 5 MG Oral Tablet predniSONE 5 MG predniSONE 5 MG 11/15/2020 12:00:00 AM EDT 1.0 {tablet} active predniSONE 5 MG eCW1 (Formerly [facility]) 8 mg 10/28/2020 12:00:00 AM EDT tablet,disintegrating [...] 1.0 {capsule_as_needed} active NIFEdipine 10 MG eCW1 (Formerly [facility]) Nifedipine 10 MG Oral Capsule NIFEdipine 10 MG NIFEdipine 10 MG 10/24/2020 12:00:00 AM EDT 1.0 {capsule_as_needed} active NIFEdipine 10 MG eCW1 (Formerly [facility]) Nifedipine 10 MG Oral Capsule NIFEdipine 10 MG NIFEdipine 10 MG 10/24/2020 12:00:00 AM EDT 1.0 {capsule_as_needed} active NIFEdipine 10 MG eCW1 (Formerly [facility]) Nifedipine 10 MG Oral Capsule NIFEdipine 10 MG NIFEdipine 10 MG 10/24/2020 12:00:00 AM EDT 1.0 {capsule_as_needed} active NIFEdipine 10 MG eCW1 (Formerly [facility]) Nifedipine 10 MG Oral Capsule NIFEdipine 10 MG NIFEdipine 10 MG 10/24/2020 12:00:00 AM EDT 1.0 {capsule_as_needed} active NIFEdipine 10 MG eCW1 ([facility]) Nifedipine 10 MG Oral Capsule NIFEdipine 10 MG NIFEdipine 10 MG 10/24/2020 12:00:00 AM EDT 1.0 {capsule_as_needed} active NIFEdipine 10 MG eCW1 (Former[facility]) Nifedipine 10 MG Oral Capsule NIFEdipine 10 MG NIFEdipine 10 MG 10/24/2020 12:00:00 AM EDT 1.0 {capsule_as_needed} active NIFEdipine 10 MG eCW1 (Formerly [facility]) Nifedipine 10 MG Oral Capsule NIFEdipine 10 MG NIFEdipine 10 MG 10/24/2020 12:00:00 AM EDT 1.0 {capsule_as_needed} active NIFEdipine 10 MG eCW1 ([facility]) Nifedipine 10 MG Oral Capsule NIFEdipine 10 MG NIFEdipine 10 MG 10/24/2020 12:00:00 AM EDT 1.0 {capsule_as_needed} active NIFEdipine 10 MG eCW1 ([facility]) 400 mg 09/29/2020 12:00:00 AM EDT tablet [...] 1.0 {tablet_as_needed} active Dulcolax 5 MG eCW1 ([facility]ly [facility]) Bisacodyl 5 MG Delayed Release Oral Tablet [Dulcolax] Dulcolax 5 MG Dulcolax 5 MG 09/19/2020 12:00:00 AM EDT 1.0 {tablet_as_needed} active Dulcolax 5 MG eCW1 ([facility]) Bisacodyl 5 MG Delayed Release Oral Tablet [Dulcolax] Dulcolax 5 MG Dulcolax 5 MG 09/19/2020 12:00:00 AM EDT 1.0 {tablet_as_needed} active Dulcolax 5 MG eCW1 ([facility]) Bisacodyl 5 MG Delayed Release Oral Tablet [Dulcolax] Dulcolax 5 MG Dulcolax 5 MG 09/19/2020 12:00:00 AM EDT 1.0 {tablet_as_needed} active Dulcolax 5 MG eCW1 ([facility]) Bisacodyl 5 MG Delayed Release Oral Tablet [Dulcolax] Dulcolax 5 MG Dulcolax 5 MG 09/19/2020 12:00:00 AM EDT 1.0 {tablet_as_needed} active eCW1 ([facility]ly [facility]) Bisacodyl 5 MG Delayed Release Oral Tablet [Dulcolax] Dulcolax 5 MG Dulcolax 5 MG 09/19/2020 12:00:00 AM EDT 1.0 {tablet_as_needed} active Dulcolax 5 MG eCW1 ([facility]) Bisacodyl 5 MG Delayed Release Oral Tablet [Dulcolax] Dulcolax 5 MG Dulcolax 5 MG 09/19/2020 12:00:00 AM EDT 1.0 {tablet_as_needed} active Dulcolax 5 MG eCW1 ([facility]) Bisacodyl 5 MG Delayed Release Oral Tablet [Dulcolax] Dulcolax 5 MG Dulcolax 5 MG 09/19/2020 12:00:00 AM EDT 1.0 {tablet_as_needed} active Dulcolax 5 MG eCW1 ([facility]) Bisacodyl 5 MG Delayed Release Oral Tablet [Dulcolax] Dulcolax 5 MG Dulcolax 5 MG 09/19/2020 12:00:00 AM EDT 1.0 {tablet_as_needed} active Dulcolax 5 MG eCW1 ([facility]) sildenafil 20 MG Oral Tablet Sildenafil Citrate 20 MG Silden afil Citrate 20 MG 09/11/2020 12:00:00 AM EDT 1.0 {tablet} active Sildenafil Citrate 20 MG eCW1 (Formerly [facility]) sildenafil 20 MG Oral Tablet Sildenafil Citrate 20 MG Silden afil Citrate 20 MG 09/11/2020 12:00:00 AM EDT 1.0 {tablet} active Sildenafil Citrate 20 MG eCW1 ([facility]) sildenafil 20 MG Oral Tablet Sildenafil Citrate 20 MG Silden afil Citrate 20 MG 09/11/2020 12:00:00 AM EDT 1.0 {tablet} active Sildenafil Citrate 20 MG eCW1 ([facility]) sildenafil 20 MG Oral Tablet Sildenafil Citrate 20 MG Silden afil Citrate 20 MG 09/11/2020 12:00:00 AM EDT 1.0 {tablet} active Sildenafil Citrate 20 MG eCW1 ([facility]) sildenafil 20 MG Oral Tablet Sildenafil Citrate 20 MG Silden afil Citrate 20 MG 09/11/2020 12:00:00 AM EDT 1.0 {tablet} active Sildenafil Citrate 20 MG eCW1 ([facility]) sildenafil 20 MG Oral Tablet Sildenafil Citrate 20 MG Silden afil Citrate 20 MG 09/11/2020 12:00:00 AM EDT 1.0 {tablet} active Sildenafil Citrate 20 MG eCW1 ([facility]) sildenafil 20 MG Oral Tablet Sildenafil Citrate 20 MG Silden afil Citrate 20 MG 09/11/2020 12:00:00 AM EDT 1.0 {tablet} active Sildenafil Citrate 20 MG eCW1 ([facility]) sildenafil 20 MG Oral Tablet Sildenafil Citrate 20 MG Silden afil Citrate 20 MG 09/11/2020 12:00:00 AM EDT 1.0 {tablet} active Sildenafil Citrate 20 MG eCW1 ([facility]) sildenafil 20 MG Oral Tablet Sildenafil Citrate 20 MG Silden afil Citrate 20 MG 09/11/2020 12:00:00 AM EDT 1.0 {tablet} active Sildenafil Citrate 20 MG eCW1 ([facility]) sildenafil 20 MG Oral Tablet Sildenafil Citrate 20 MG Silden afil Citrate 20 MG 09/11/2020 12:00:00 AM EDT 1.0 {tablet} active Sildenafil Citrate 20 MG eCW1 ([facility]) sildenafil 20 MG Oral Tablet Sildenafil Citrate 20 MG Silden afil Citrate 20 MG 09/11/2020 12:00:00 AM EDT 1.0 {tablet} active Sildenafil Citrate 20 MG eCW1 ([facility]) sildenafil 20 MG Oral Tablet Sildenafil Citrate 20 MG Silden afil Citrate 20 MG 09/11/2020 12:00:00 AM EDT 1.0 {tablet} active Sildenafil Citrate 20 MG eCW1 ([facility]) sildenafil 20 MG Oral Tablet Sildenafil Citrate 20 MG Silden afil Citrate 20 MG 09/11/2020 12:00:00 AM EDT 1.0 {tablet} active Sildenafil Citrate 20 MG eCW1 ([facility]) sildenafil 20 MG Oral Tablet Sildenafil Citrate 20 MG Silden afil Citrate 20 MG 09/11/2020 12:00:00 AM EDT 1.0 {tablet} active Sildenafil Citrate 20 MG eCW1 ([facility]) sildenafil 20 MG Oral Tablet Sildenafil Citrate 20 MG Silden afil Citrate 20 MG 09/11/2020 12:00:00 AM EDT 1.0 {tablet} active eCW1 ([facility]) sildenafil 20 MG Oral Tablet Sildenafil Citrate 20 MG Silden afil Citrate 20 MG 09/11/2020 12:00:00 AM EDT 1.0 {tablet} active Sildenafil Citrate 20 MG eCW1 ([facility]) sildenafil 20 MG Oral Tablet Sildenafil Citrate 20 MG Silden afil Citrate 20 MG 09/11/2020 12:00:00 AM EDT 1.0 {tablet} active Sildenafil Citrate 20 MG eCW1 ([facility]) sildenafil 20 MG Oral Tablet Sildenafil Citrate 20 MG Silden afil Citrate 20 MG 09/11/2020 12:00:00 AM EDT 1.0 {tablet} active Sildenafil Citrate 20 MG eCW1 ([facility]) sildenafil 20 MG Oral Tablet Sildenafil Citrate 20 MG Silden afil Citrate 20 MG 09/11/2020 12:00:00 AM EDT 1.0 {tablet} active Sildenafil Citrate 20 MG eCW1 ([facility]) sildenafil 20 MG Oral Tablet Sildenafil Citrate 20 MG Silden afil Citrate 20 MG 09/11/2020 12:00:00 AM EDT 1.0 {tablet} active Sildenafil Citrate 20 MG eCW1 ([facility]) sildenafil 20 MG Oral Tablet Sildenafil Citrate 20 MG Silden afil Citrate 20 MG 09/11/2020 12:00:00 AM EDT 1.0 {tablet} active Sildenafil Citrate 20 MG eCW1 ([facility]) sildenafil 20 MG Oral Tablet Sildenafil Citrate 20 MG Silden afil Citrate 20 MG 09/11/2020 12:00:00 AM EDT 1.0 {tablet} active Sildenafil Citrate 20 MG eCW1 ([facility]) sildenafil 20 MG Oral Tablet Sildenafil Citrate 20 MG Silden afil Citrate 20 MG 09/11/2020 12:00:00 AM EDT 1.0 {tablet} active Sildenafil Citrate 20 MG eCW1 ([facility]) sildenafil 20 MG Oral Tablet Sildenafil Citrate 20 MG Silden afil Citrate 20 MG 09/11/2020 12:00:00 AM EDT 1.0 {tablet} active Sildenafil Citrate 20 MG eCW1 ([facility]) sildenafil 20 MG Oral Tablet Sildenafil Citrate 20 MG Silden afil Citrate 20 MG 09/11/2020 12:00:00 AM EDT 1.0 {tablet} active Sildenafil Citrate 20 MG eCW1 ([facility]) sildenafil 20 MG Oral Tablet Sildenafil Citrate 20 MG Silden afil Citrate 20 MG 09/11/2020 12:00:00 AM EDT 1.0 {tablet} active Sildenafil Citrate 20 MG eCW1 ([facility]) sildenafil 20 MG Oral Tablet Sildenafil Citrate 20 MG Silden afil Citrate 20 MG 09/11/2020 12:00:00 AM EDT 1.0 {tablet} active Sildenafil Citrate 20 MG eCW1 ([facility]) sildenafil 20 MG Oral Tablet Sildenafil Citrate 20 MG Silden afil Citrate 20 MG 09/11/2020 12:00:00 AM EDT 1.0 {tablet} active Sildenafil Citrate 20 MG eCW1 ([facility]) sildenafil 20 MG Oral Tablet Sildenafil Citrate 20 MG Silden afil Citrate 20 MG 09/11/2020 12:00:00 AM EDT 1.0 {tablet} active Sildenafil Citrate 20 MG eCW1 ([facility]) sildenafil 20 MG Oral Tablet Sildenafil Citrate 20 MG Silden afil Citrate 20 MG 09/11/2020 12:00:00 AM EDT 1.0 {tablet} active Sildenafil Citrate 20 MG eCW1 ([facility]) sildenafil 20 MG Oral Tablet Sildenafil Citrate 20 MG Silden afil Citrate 20 MG 09/11/2020 12:00:00 AM EDT 1.0 {tablet} active eCW1 ([facility]) sildenafil 20 MG Oral Tablet Sildenafil Citrate 20 MG Silden afil Citrate 20 MG 09/11/2020 12:00:00 AM EDT 1.0 {tablet} active Sildenafil Citrate 20 MG eCW1 ([facility]) sildenafil 20 MG Oral Tablet Sildenafil Citrate 20 MG Silden afil Citrate 20 MG 09/11/2020 12:00:00 AM EDT 1.0 {tablet} active Sildenafil Citrate 20 MG eCW1 ([facility]) sildenafil 20 MG Oral Tablet Sildenafil Citrate 20 MG Silden afil Citrate 20 MG 09/11/2020 12:00:00 AM EDT 1.0 {tablet} active Sildenafil Citrate 20 MG eCW1 ([facility]) sildenafil 20 MG Oral Tablet Sildenafil Citrate 20 MG Silden afil Citrate 20 MG 09/11/2020 12:00:00 AM EDT 1.0 {tablet} active Sildenafil Citrate 20 MG eCW1 ([facility]) sildenafil 20 MG Oral Tablet Sildenafil Citrate 20 MG Silden afil Citrate 20 MG 09/11/2020 12:00:00 AM EDT 1.0 {tablet} active Sildenafil Citrate 20 MG eCW1 ([facility]) sildenafil 20 MG Oral Tablet Sildenafil Citrate 20 MG Silden afil Citrate 20 MG 09/11/2020 12:00:00 AM EDT 1.0 {tablet} active Sildenafil Citrate 20 MG eCW1 ([facility]) sildenafil 20 MG Oral Tablet Sildenafil Citrate 20 MG Silden afil Citrate 20 MG 09/11/2020 12:00:00 AM EDT 1.0 {tablet} active Sildenafil Citrate 20 MG eCW1 ([facility]) sildenafil 20 MG Oral Tablet Sildenafil Citrate 20 MG Silden afil Citrate 20 MG 09/11/2020 12:00:00 AM EDT 1.0 {tablet} active Sildenafil Citrate 20 MG eCW1 ([facility]) sildenafil 20 MG Oral Tablet Sildenafil Citrate 20 MG Silden afil Citrate 20 MG 09/11/2020 12:00:00 AM EDT 1.0 {tablet} active Sildenafil Citrate 20 MG eCW1 ([facility]) sildenafil 20 MG Oral Tablet Sildenafil Citrate 20 MG Silden afil Citrate 20 MG 09/11/2020 12:00:00 AM EDT 1.0 {tablet} active Sildenafil Citrate 20 MG eCW1 ([facility]) sildenafil 20 MG Oral Tablet Sildenafil Citrate 20 MG Silden afil Citrate 20 MG 09/11/2020 12:00:00 AM EDT 1.0 {tablet} active Sildenafil Citrate 20 MG eCW1 ([facility]) Prednisone 5 MG Oral Tablet predniSONE 5 MG predniSONE 5 MG 08/27/2020 12:00:00 AM EDT 2.0 {tablet} active predniSONE 5 MG eCW1 ([facility]) Prednisone 5 MG Oral Tablet predniSONE 5 MG predniSONE 5 MG 08/27/2020 12:00:00 AM EDT 2.0 {tablet} active eCW1 ([facility]) Prednisone 5 MG Oral Tablet predniSONE 5 MG predniSONE 5 MG 08/27/2020 12:00:00 AM EDT 2.0 {tablet} active predniSONE 5 MG eCW1 ([facility]) Prednisone 5 MG Oral Tablet predniSONE 5 MG predniSONE 5 MG 08/27/2020 12:00:00 AM EDT 2.0 {tablet} active predniSONE 5 MG eCW1 ([facility]) Prednisone 5 MG Oral Tablet predniSONE 5 MG predniSONE 5 MG 08/27/2020 12:00:00 AM EDT 2.0 {tablet} active predniSONE 5 MG eCW1 ([facility]) Prednisone 5 MG Oral Tablet predniSONE 5 MG predniSONE 5 MG 08/27/2020 12:00:00 AM EDT 2.0 {tablet} active predniSONE 5 MG eCW1 (Formerly [facility]) 5 mg 08/27/2020 12:00:00 AM EDT tablet 60 TAKE TWO TABLETS BY MOUTH EVERY DAY TAKE TWO TABLETS BY MOUTH EVERY DAY SOLD: 09/05/2020 [facility] Prednisone 5 MG Oral Tablet predniSONE 5 MG predniSONE 5 MG 08/27/2020 12:00:00 AM EDT 2.0 {tablet} active predniSONE 5 MG eCW1 (Formerly [facility]) Prednisone 5 MG Oral Tablet predniSONE 5 MG predniSONE 5 MG 08/27/2020 12:00:00 AM EDT 2.0 {tablet} active predniSONE 5 MG eCW1 ([facility]) Prednisone 5 MG Oral Tablet predniSONE 5 MG predniSONE 5 MG 08/27/2020 12:00:00 AM EDT 2.0 {tablet} active predniSONE 5 MG eCW1 (Formerly [facility]) Hydroxychloroquine Sulfate 200 MG Oral Tablet HYDROXYCHLOROQ UINE SULFATE 08/27/2020 12:00:00 AM EDT tablet 28 TAKE ONE TABLE T BY MOUTH EVERY DAY TAKE ONE TABLET BY MOUTH EVERY DAY SOLD: 08/27/2020 [facility] Prednisone 5 MG Oral Tablet predniSONE 5 MG predniSONE 5 MG 08/27/2020 12:00:00 AM EDT 2.0 {tablet} active predniSONE 5 MG eCW1 (Formerly [facility]) Prednisone 5 MG Oral Tablet predniSONE 5 MG predniSONE 5 MG 08/27/2020 12:00:00 AM EDT 2.0 {tablet} active predniSONE 5 MG eCW1 ([facility]ly [facility]) Prednisone 5 MG Oral Tablet predniSONE 5 MG predniSONE 5 MG 08/27/2020 12:00:00 AM EDT 2.0 {tablet} active predniSONE 5 MG eCW1 ([facility]) Prednisone 5 MG Oral Tablet predniSONE 5 MG predniSONE 5 MG 08/27/2020 12:00:00 AM EDT 2.0 {tablet} active predniSONE 5 MG eCW1 ([facility]) Prednisone 5 MG Oral Tablet predniSONE 5 MG predniSONE 5 MG 08/27/2020 12:00:00 AM EDT 2.0 {tablet} active predniSONE 5 MG eCW1 (Formerly [facility]) Metronidazole 500 MG Oral Tablet metroNIDAZOLE 500 MG metroN IDAZOLE 500 MG 08/23/2020 12:00:00 AM EDT 1.0 {tablet} active metroNIDAZOLE 500 MG eCW1 (Formerly [facility]) Metronidazole 500 MG Oral Tablet metroNIDAZOLE 500 MG metroN IDAZOLE 500 MG 08/23/2020 12:00:00 AM EDT 1.0 {tablet} active metroNIDAZOLE 500 MG eCW1 (Formerly [facility]) Metronidazole 500 MG Oral Tablet metroNIDAZOLE 500 MG metroN IDAZOLE 500 MG 08/23/2020 12:00:00 AM EDT 1.0 {tablet} active metroNIDAZOLE 500 MG eCW1 ([facility]) Metronidazole 500 MG Oral Tablet metroNIDAZOLE 500 MG metroN IDAZOLE 500 MG 08/23/2020 12:00:00 AM EDT 1.0 {tablet} active metroNIDAZOLE 500 MG eCW1 ([facility]) Metronidazole 500 MG Oral Tablet METRONIDAZOLE 08/23/2020 12:0 0:00 AM EDT tablet 14 TAKE ONE TABLET BY MOUTH TWICE A DAY FOR 7 DAYS TAKE ONE TABLET BY MOUTH TWICE A DAY FOR 7 DAYS SOLD: 08/26/2020 [facility] Metronidazole 500 MG Oral Tablet metroNIDAZOLE 500 MG metroN IDAZOLE 500 MG 08/23/2020 12:00:00 AM EDT 1.0 {tablet} active metroNIDAZOLE 500 MG eCW1 ([facility]) Metronidazole 500 MG Oral Tablet metroNIDAZOLE 500 MG metroN IDAZOLE 500 MG 08/23/2020 12:00:00 AM EDT 1.0 {tablet} active metroNIDAZOLE 500 MG eCW1 ([facility]) Metronidazole 500 MG Oral Tablet metroNIDAZOLE 500 MG metroN IDAZOLE 500 MG 08/23/2020 12:00:00 AM EDT 1.0 {tablet} active metroNIDAZOLE 500 MG eCW1 ([facility]) Metronidazole 500 MG Oral Tablet metroNIDAZOLE 500 MG metroN IDAZOLE 500 MG 08/23/2020 12:00:00 AM EDT 1.0 {tablet} active metroNIDAZOLE 500 MG eCW1 (Formerly [facility]) quetiapine 200 MG Oral Tablet QUETIAPINE FUMARATE [...] DAILY DOSE = 3 SOLD: 08/19/2020 [facility] dalbavancin 20 MG/ML Injectable Solution [Dalvance] Da lvance 500 MG Dalvance 500 MG 08/15/2020 12:00:00 AM EDT active Dalvance 500 MG eCW1 ([facility]ly [facility]) dalbavancin 20 MG/ML Injectable Solution [Dalvance] Da lvance 500 MG Dalvance 500 MG 08/15/2020 12:00:00 AM EDT active Dalvance 500 MG eCW1 ([facility]) dalbavancin 20 MG/ML Injectable Solution [Dalvance] Da lvance 500 MG Dalvance 500 MG 08/15/2020 12:00:00 AM EDT active Dalvance 500 MG eCW1 ([facility]) dalbavancin 20 MG/ML Injectable Solution [Dalvance] Da lvance 500 MG Dalvance 500 MG 08/15/2020 12:00:00 AM EDT active Dalvance 500 MG eCW1 ([facility]) dalbavancin 20 MG/ML Injectable Solution [Dalvance] Da lvance 500 MG Dalvance 500 MG 08/15/2020 12:00:00 AM EDT active Dalvance 500 MG eCW1 ([facility]) dalbavancin 20 MG/ML Injectable Solution [Dalvance] Da lvance 500 MG Dalvance 500 MG 08/15/2020 12:00:00 AM EDT active Dalvance 500 MG eCW1 ([facility]) dalbavancin 20 MG/ML Injectable Solution [Dalvance] Da lvance 500 MG Dalvance 500 MG 08/15/2020 12:00:00 AM EDT active Dalvance 500 MG eCW1 ([facility]) dalbavancin 20 MG/ML Injectable Solution [Dalvance] Da lvance 500 MG Dalvance 500 MG 08/15/2020 12:00:00 AM EDT active Dalvance 500 MG eCW1 ([facility]) dalbavancin 20 MG/ML Injectable Solution [Dalvance] Da lvance 500 MG Dalvance 500 MG 08/15/2020 12:00:00 AM EDT active Dalvance 500 MG eCW1 ([facility]) 10 mg 08/10/2020 12:00:00 AM EDT capsule [...] {capsule} active N IFEdipine 10 MG eCW1 ([facility]) Nifedipine 10 MG Oral Capsule NIFEdipine 10 MG NIFEdipine 10 MG 08/07/2020 12:00:00 AM EDT 1.0 {capsule} suspended NIFEdipine 10 MG eCW1 ([facility]) Nifedipine 10 MG Oral Capsule NIFEdipine 10 MG NIFEdipine 10 MG 08/07/2020 12:00:00 AM EDT 1.0 {capsule} active N IFEdipine 10 MG eCW1 ([facility]) Nifedipine 10 MG Oral Capsule NIFEdipine 10 MG NIFEdipine 10 MG 08/07/2020 12:00:00 AM EDT 1.0 {capsule} suspended NIFEdipine 10 MG eCW1 ([facility]) Minocycline 100 MG Oral Capsule Minocycline HCl 100 MG Minoc ycline HCl 100 MG 08/07/2020 12:00:00 AM EDT 1.0 {capsule} active Minocycline HCl 100 MG eCW1 ([facility]) Nifedipine 10 MG Oral Capsule NIFEdipine 10 MG NIFEdipine 10 MG 08/07/2020 12:00:00 AM EDT 1.0 {capsule} active N IFEdipine 10 MG eCW1 ([facility]) Nifedipine 10 MG Oral Capsule NIFEdipine 10 MG NIFEdipine 10 MG 08/07/2020 12:00:00 AM EDT 1.0 {capsule} suspended NIFEdipine 10 MG eCW1 ([facility]) Minocycline 100 MG Oral Capsule Minocycline HCl 100 MG Minoc ycline HCl 100 MG 08/07/2020 12:00:00 AM EDT 1.0 {capsule} active Minocycline HCl 100 MG eCW1 ([facility]) Nifedipine 10 MG Oral Capsule NIFEdipine 10 MG NIFEdipine 10 MG 08/07/2020 12:00:00 AM EDT 1.0 {capsule} active N IFEdipine 10 MG eCW1 ([facility]) Nifedipine 10 MG Oral Capsule NIFEdipine 10 MG NIFEdipine 10 MG 08/07/2020 12:00:00 AM EDT 1.0 {capsule} suspended NIFEdipine 10 MG eCW1 ([facility]) Minocycline 100 MG Oral Capsule Minocycline HCl 100 MG Minoc ycline HCl 100 MG 08/07/2020 12:00:00 AM EDT 1.0 {capsule} active Minocycline HCl 100 MG eCW1 ([facility]) Nifedipine 10 MG Oral Capsule NIFEdipine 10 MG NIFEdipine 10 MG 08/07/2020 12:00:00 AM EDT 1.0 {capsule} suspended NIFEdipine 10 MG eCW1 ([facility]) Nifedipine 10 MG Oral Capsule NIFEdipine 10 MG NIFEdipine 10 MG 08/07/2020 12:00:00 AM EDT 1.0 {capsule} suspended NIFEdipine 10 MG eCW1 ([facility]) Nifedipine 10 MG Oral Capsule NIFEdipine 10 MG NIFEdipine 10 MG 08/07/2020 12:00:00 AM EDT 1.0 {capsule} active N IFEdipine 10 MG eCW1 ([facility]) Nifedipine 10 MG Oral Capsule NIFEdipine 10 MG NIFEdipine 10 MG 08/07/2020 12:00:00 AM EDT 1.0 {capsule} active N IFEdipine 10 MG eCW1 ([facility]) Nifedipine 10 MG Oral Capsule NIFEdipine 10 MG NIFEdipine 10 MG 08/07/2020 12:00:00 AM EDT 1.0 {capsule} active N IFEdipine 10 MG eCW1 ([facility]) Minocycline 100 MG Oral Capsule Minocycline HCl 100 MG Minoc ycline HCl 100 MG 08/07/2020 12:00:00 AM EDT 1.0 {capsule} active Minocycline HCl 100 MG eCW1 ([facility]) Minocycline 100 MG Oral Capsule Minocycline HCl 100 MG Minoc ycline HCl 100 MG 08/07/2020 12:00:00 AM EDT 1.0 {capsule} active Minocycline HCl 100 MG eCW1 ([facility]) Nifedipine 10 MG Oral Capsule NIFEdipine 10 MG NIFEdipine 10 MG 08/07/2020 12:00:00 AM EDT 1.0 {capsule} active N IFEdipine 10 MG eCW1 ([facility]) Nifedipine 10 MG Oral Capsule NIFEdipine 10 MG NIFEdipine 10 MG 08/07/2020 12:00:00 AM EDT 1.0 {capsule} suspended eCW1 ([facility]) Minocycline 100 MG Oral Capsule Minocycline HCl 100 MG Minoc ycline HCl 100 MG 08/07/2020 12:00:00 AM EDT 1.0 {capsule} active Minocycline HCl 100 MG eCW1 ([facility]) Minocycline 100 MG Oral Capsule Minocycline HCl 100 MG Minoc ycline HCl 100 MG 08/07/2020 12:00:00 AM EDT 1.0 {capsule} active Minocycline HCl 100 MG eCW1 ([facility]) Minocycline 100 MG Oral Capsule Minocycline HCl 100 MG Minoc ycline HCl 100 MG 08/07/2020 12:00:00 AM EDT 1.0 {capsule} active Minocycline HCl 100 MG eCW1 ([facility]) Minocycline 100 MG Oral Capsule Minocycline HCl 100 MG Minoc ycline HCl 100 MG 08/07/2020 12:00:00 AM EDT 1.0 {capsule} active Minocycline HCl 100 MG eCW1 ([facility]) Minocycline 100 MG Oral Capsule Minocycline HCl 100 MG Minoc ycline HCl 100 MG 08/07/2020 12:00:00 AM EDT 1.0 {capsule} active Minocycline HCl 100 MG eCW1 ([facility]) Nifedipine 10 MG Oral Capsule NIFEdipine 10 MG NIFEdipine 10 MG 08/07/2020 12:00:00 AM EDT 1.0 {capsule} active N IFEdipine 10 MG eCW1 ([facility]) Nifedipine 10 MG Oral Capsule NIFEdipine 10 MG NIFEdipine 10 MG 08/07/2020 12:00:00 AM EDT 1.0 {capsule} suspended NIFEdipine 10 MG eCW1 ([facility]) Nifedipine 10 MG Oral Capsule NIFEdipine 10 MG NIFEdipine 10 MG 08/07/2020 12:00:00 AM EDT 1.0 {capsule} active N IFEdipine 10 MG eCW1 ([facility]) Nifedipine 10 MG Oral Capsule NIFEdipine 10 MG NIFEdipine 10 MG 08/07/2020 12:00:00 AM EDT 1.0 {capsule} active N IFEdipine 10 MG eCW1 (Formerly [facility]) Nifedipine 10 MG Oral Capsule NIFEdipine 10 MG NIFEdipine 10 MG 08/07/2020 12:00:00 AM EDT 1.0 {capsule} suspended NIFEdipine 10 MG eCW1 (Formerly [facility]) Minocycline 100 MG Oral Capsule Minocycline HCl 100 MG Minoc ycline HCl 100 MG 08/07/2020 12:00:00 AM EDT 1.0 {capsule} active Minocycline HCl 100 MG eCW1 (Formerly [facility]) Nifedipine 10 MG Oral Capsule NIFEdipine 10 MG NIFEdipine 10 MG 08/07/2020 12:00:00 AM EDT 1.0 {capsule} active N IFEdipine 10 MG eCW1 (Formerly [facility]) Minocycline 100 MG Oral Capsule Minocycline HCl 100 MG Minoc ycline HCl 100 MG 08/07/2020 12:00:00 AM EDT 1.0 {capsule} active Minocycline HCl 100 MG eCW1 (Formerly [facility]) 2 % 08/04/2020 12:00:00 AM EDT ointment [...] AM EDT suspended Cefdinir 300 MG eCW1 (Formerly [facility]) cefdinir 300 MG Oral Capsule Cefdinir 300 MG Cefdinir 300 MG 07/18/2020 12:00:00 AM EDT suspended Cefdinir 300 MG eCW1 (Formerly [facility]) cefdinir 300 MG Oral Capsule Cefdinir 300 MG Cefdinir 300 MG 07/18/2020 12:00:00 AM EDT suspended Cefdinir 300 MG eCW1 (Formerly [facility]) cefdinir 300 MG Oral Capsule Cefdinir 300 MG Cefdinir 300 MG 07/18/2020 12:00:00 AM EDT suspended Cefdinir 300 MG eCW1 (Formerly [facility]) cefdinir 300 MG Oral Capsule Cefdinir 300 MG Cefdinir 300 MG 07/18/2020 12:00:00 AM EDT suspended Cefdinir 300 MG eCW1 (Formerly [facility]) cefdinir 300 MG Oral Capsule Cefdinir 300 MG Cefdinir 300 MG 07/18/2020 12:00:00 AM EDT active Cefdinir 300 MG eCW1 (Formerly [facility]) cefdinir 300 MG Oral Capsule Cefdinir 300 MG Cefdinir 300 MG 07/18/2020 12:00:00 AM EDT suspended Cefdinir 300 MG eCW1 (Formerly [facility]) cefdinir 300 MG Oral Capsule Cefdinir 300 MG Cefdinir 300 MG 07/18/2020 12:00:00 AM EDT active Cefdinir 300 MG eCW1 (Former[facility]) cefdinir 300 MG Oral Capsule Cefdinir 300 MG Cefdinir 300 MG 07/18/2020 12:00:00 AM EDT suspended Cefdinir 300 MG eCW1 (Former[facility]) cefdinir 300 MG Oral Capsule Cefdinir 300 MG Cefdinir 300 MG 07/18/2020 12:00:00 AM EDT suspended Cefdinir 300 MG eCW1 (Former[facility]) cefdinir 300 MG Oral Capsule Cefdinir 300 MG Cefdinir 300 MG 07/18/2020 12:00:00 AM EDT active Cefdinir 300 MG eCW1 (Formerly [facility]) Ondansetron 8 MG Disintegrating Oral Tablet Ondansetron 8 MG 07/15/2020 12:00:00 AM EDT active Ondansetron 8 MG eCW1 ([facility]) Ondansetron 8 MG Disintegrating Oral Tablet Ondansetron 8 MG 07/15/2020 12:00:00 AM EDT active Ondansetron 8 MG eCW1 ([facility]) Ondansetron 8 MG Disintegrating Oral Tablet Ondansetron 8 MG 07/15/2020 12:00:00 AM EDT active Ondansetron 8 MG eCW1 ([facility]) 20 mg 07/07/2020 12:00:00 AM EDT tablet [...] 1.0 {tablet} suspended PredniSONE 20 MG eCW1 (Formerly [facility]) Prednisone 20 MG Oral Tablet PredniSONE 20 MG PredniSONE 20 MG 07/02/2020 12:00:00 AM EDT 1.0 {tablet} active Pr edniSONE 20 MG eCW1 (Formerly [facility]) Prednisone 20 MG Oral Tablet PredniSONE 20 MG PredniSONE 20 MG 07/02/2020 12:00:00 AM EDT 1.0 {tablet} active Pr edniSONE 20 MG eCW1 (Formerly [facility]) Prednisone 20 MG Oral Tablet PredniSONE 20 MG PredniSONE 20 MG 07/02/2020 12:00:00 AM EDT 1.0 {tablet} active Pr edniSONE 20 MG eCW1 (Formerly [facility]) Prednisone 20 MG Oral Tablet PredniSONE 20 MG PredniSONE 20 MG 07/02/2020 12:00:00 AM EDT 1.0 {tablet} suspended PredniSONE 20 MG eCW1 (Formerly [facility]) Prednisone 20 MG Oral Tablet PredniSONE 20 MG PredniSONE 20 MG 07/02/2020 12:00:00 AM EDT 1.0 {tablet} active Pr edniSONE 20 MG eCW1 ([facility]) Prednisone 20 MG Oral Tablet PredniSONE 20 MG PredniSONE 20 MG 07/02/2020 12:00:00 AM EDT 1.0 {tablet} active Pr edniSONE 20 MG eCW1 (Formerly [facility]) Prednisone 20 MG Oral Tablet PredniSONE 20 MG PredniSONE 20 MG 07/02/2020 12:00:00 AM EDT 1.0 {tablet} suspended PredniSONE 20 MG eCW1 ([facility]) Prednisone 20 MG Oral Tablet PredniSONE 20 MG PredniSONE 20 MG 07/02/2020 12:00:00 AM EDT 1.0 {tablet} active Pr edniSONE 20 MG eCW1 ([facility]) Prednisone 20 MG Oral Tablet PredniSONE 20 MG PredniSONE 20 MG 07/02/2020 12:00:00 AM EDT 1.0 {tablet} active Pr edniSONE 20 MG eCW1 ([facility]) Prednisone 20 MG Oral Tablet PredniSONE 20 MG PredniSONE 20 MG 07/02/2020 12:00:00 AM EDT 1.0 {tablet} active Pr edniSONE 20 MG eCW1 ([facility]) 2 % 06/27/2020 12:00:00 AM EDT ointment 48 APPLY A HALF INCH TOPICALLY EVERY 6 HOURS, LEAVE A 12 HOUR INTERVAL BETWEEN DOSES, MAXIMUM DAILY DOSE = TWO TIMES A DAY APPLY A HALF INCH TOPICALLY EVERY 6 HOUR S, LEAVE A 12 HOUR INTERVAL BETWEEN DOSES, MAXIMUM DAILY DOSE = TWO TIMES A DAY SOLD: 06/27/2020 [facility] Hydroxychloroquine Sulfate 200 MG Oral Tablet HYDROXYCHLOROQ UINE SULFATE 06/27/2020 12:00:00 AM EDT tablet 28 TAKE ONE TABLE T BY MOUTH EVERY DAY TAKE ONE TABLET BY MOUTH EVERY DAY SOLD: 06/27/2020 [facility] Nitroglycerin 0.02 MG/MG Topical Ointment [Nitro-Bid] Nitro-Bid 2 % Nitro-Bid 2 % 06/26/2020 12:00:00 AM EDT active Nitro-Bid 2 % eCW1 ([facility]) Hydroxychloroquine Sulfate 200 MG Oral Tablet [Plaquen il] Plaquenil 200 MG Plaquenil 200 MG 06/26/2020 12:00:00 AM EDT a ctive Plaquenil 200 MG eCW1 ([facility]) Nitroglycerin 0.02 MG/MG Topical Ointment [Nitro-Bid] Nitro-Bid 2 % Nitro-Bid 2 % 06/26/2020 12:00:00 AM EDT active Nitro-Bid 2 % eCW1 ([facility]) Nitroglycerin 0.02 MG/MG Topical Ointment [Nitro-Bid] Nitro-Bid 2 % Nitro-Bid 2 % 06/26/2020 12:00:00 AM EDT active Nitro-Bid 2 % eCW1 ([facility]) Hydroxychloroquine Sulfate 200 MG Oral Tablet [Plaquen il] Plaquenil 200 MG Plaquenil 200 MG 06/26/2020 12:00:00 AM EDT a ctive Plaquenil 200 MG eCW1 ([facility]) Hydroxychloroquine Sulfate 200 MG Oral Tablet [Plaquen il] Plaquenil 200 MG Plaquenil 200 MG 06/26/2020 12:00:00 AM EDT a ctive Plaquenil 200 MG eCW1 ([facility]) Hydroxychloroquine Sulfate 200 MG Oral Tablet [Plaquen il] Plaquenil 200 MG Plaquenil 200 MG 06/26/2020 12:00:00 AM EDT a ctive Plaquenil 200 MG eCW1 ([facility]) Hydroxychloroquine Sulfate 200 MG Oral Tablet [Plaquen il] Plaquenil 200 MG Plaquenil 200 MG 06/26/2020 12:00:00 AM EDT a ctive Plaquenil 200 MG eCW1 ([facility]) Nitroglycerin 0.02 MG/MG Topical Ointment [Nitro-Bid] Nitro-Bid 2 % Nitro-Bid 2 % 06/26/2020 12:00:00 AM EDT active Nitro-Bid 2 % eCW1 ([facility]) Nitroglycerin 0.02 MG/MG Topical Ointment [Nitro-Bid] Nitro-Bid 2 % Nitro-Bid 2 % 06/26/2020 12:00:00 AM EDT active Nitro-Bid 2 % eCW1 ([facility]) Nitroglycerin 0.02 MG/MG Topical Ointment [Nitro-Bid] Nitro-Bid 2 % Nitro-Bid 2 % 06/26/2020 12:00:00 AM EDT active Nitro-Bid 2 % eCW1 ([facility]) Hydroxychloroquine Sulfate 200 MG Oral Tablet [Plaquen il] Plaquenil 200 MG Plaquenil 200 MG 06/26/2020 12:00:00 AM EDT a ctive Plaquenil 200 MG eCW1 ([facility]) Hydroxychloroquine Sulfate 200 MG Oral Tablet [Plaquen il] Plaquenil 200 MG Plaquenil 200 MG 06/26/2020 12:00:00 AM EDT a ctive Plaquenil 200 MG eCW1 ([facility]) Hydroxychloroquine Sulfate 200 MG Oral Tablet [Plaquen il] Plaquenil 200 MG Plaquenil 200 MG 06/26/2020 12:00:00 AM EDT a ctive Plaquenil 200 MG eCW1 ([facility]) Hydroxychloroquine Sulfate 200 MG Oral Tablet [Plaquen il] Plaquenil 200 MG Plaquenil 200 MG 06/26/2020 12:00:00 AM EDT a ctive Plaquenil 200 MG eCW1 ([facility]) Nitroglycerin 0.02 MG/MG Topical Ointment [Nitro-Bid] Nitro-Bid 2 % Nitro-Bid 2 % 06/26/2020 12:00:00 AM EDT active Nitro-Bid 2 % eCW1 ([facility]) Nitroglycerin 0.02 MG/MG Topical Ointment [Nitro-Bid] Nitro-Bid 2 % Nitro-Bid 2 % 06/26/2020 12:00:00 AM EDT active Nitro-Bid 2 % eCW1 ([facility]) Nitroglycerin 0.02 MG/MG Topical Ointment [Nitro-Bid] Nitro-Bid 2 % Nitro-Bid 2 % 06/26/2020 12:00:00 AM EDT active Nitro-Bid 2 % eCW1 ([facility]) Nitroglycerin 0.02 MG/MG Topical Ointment [Nitro-Bid] Nitro-Bid 2 % Nitro-Bid 2 % 06/26/2020 12:00:00 AM EDT active Nitro-Bid 2 % eCW1 ([facility]) Hydroxychloroquine Sulfate 200 MG Oral Tablet [Plaquen il] Plaquenil 200 MG Plaquenil 200 MG 06/26/2020 12:00:00 AM EDT a ctive Plaquenil 200 MG eCW1 ([facility]) 200 mg 06/19/2020 12:00:00 AM EDT capsule 30 TAKE ONE CAPSULE BY MOUTH EVERY DAY WITH FOOD TAKE ONE CAPSULE BY MOUTH EVERY DAY WITH FOOD SOLD: 06/21/2020 [facility] celecoxib 200 MG Oral Capsule [Celebrex] Celebrex 200 MG [facility] ebrex 200 MG 06/17/2020 12:00:00 AM EDT 1.0 {capsule_with_food} active Celebrex 200 MG eCW1 ([facility]) doxycycline hyclate 100 MG Oral Capsule DOXYCYCLINE HYCLATE 06/17/2020 12:00:00 AM EDT capsule 60 TAKE ONE CAPSULE BY MOUTH EV [place] 12 HOURS TAKE ONE CAPSULE BY MOUTH EVERY 12 HOURS SOLD: 06/18/2020 [facility] celecoxib 200 MG Oral Capsule [Celebrex] Celebrex 200 MG Bhavna ebrex 200 MG 06/17/2020 12:00:00 AM EDT 1.0 {capsule_with_food} active Celebrex 200 MG eCW1 ([facility]) 4 mg 06/17/2020 12:00:00 AM EDT tablet [...] 1.0 {capsule_with_food} active Celebrex 200 MG eCW1 ([facility]) celecoxib 200 MG Oral Capsule [Celebrex] Celebrex 200 MG Bhavna ebrex 200 MG 06/17/2020 12:00:00 AM EDT 1.0 {capsule_with_food} active Celebrex 200 MG eCW1 ([facility]) 81 mg 06/02/2020 12:00:00 AM EDT tablet,delayed [...] active Take 1 tablet by mouth daily [facility] Ketorolac Tromethamine 10 MG Oral Tablet Ketorolac Trometham ine 10 MG 03/12/2020 12:00:00 AM EST active Ketorol ac Tromethamine 10 MG eCW1 ([facility]) Ketorolac Tromethamine 10 MG Oral Tablet Ketorolac Trometham ine 10 MG 03/12/2020 12:00:00 AM EST active Ketorol ac Tromethamine 10 MG eCW1 ([facility]) Ketorolac Tromethamine 10 MG Oral Tablet Ketorolac Trometham ine 10 MG 03/12/2020 12:00:00 AM EST active Ketorol ac Tromethamine 10 MG eCW1 ([facility]) Ketorolac Tromethamine 10 MG Oral Tablet Ketorolac Trometham ine 10 MG 03/12/2020 12:00:00 AM EST active Ketorol ac Tromethamine 10 MG eCW1 ([facility]) cefdinir 300 MG Oral Capsule Cefdinir 300 MG Cefdinir 300 MG 02/20/2020 12:00:00 AM EST active Cefdinir 300 MG eCW1 ([facility]) Phenergan 25 MG UNK 02/06/2020 12:00:00 AM EST 1.0 {tablet_a s_needed} active Phenergan 25 MG eCW1 ([facility]) Dicyclomine Hydrochloride 20 MG Oral Tablet Dicyclomin e HCl 20 MG Dicyclomine HCl 20 MG 02/06/2020 12:00:00 AM EST 1.0 {tablet} ac tive Dicyclomine HCl 20 MG eCW1 ([facility]) Phenergan 25 MG UNK 02/06/2020 12:00:00 AM EST 1.0 {tablet_a s_needed} active Phenergan 25 MG eCW1 ([facility]) Dicyclomine Hydrochloride 20 MG Oral Tablet Dicyclomin e HCl 20 MG Dicyclomine HCl 20 MG 02/06/2020 12:00:00 AM EST 1.0 {tablet} ac tive Dicyclomine HCl 20 MG eCW1 ([facility]) Dicyclomine Hydrochloride 20 MG Oral Tablet Dicyclomin e HCl 20 MG Dicyclomine HCl 20 MG 02/06/2020 12:00:00 AM EST 1.0 {tablet} ac tive Dicyclomine HCl 20 MG eCW1 ([facility]) Phenergan 25 MG UNK 02/06/2020 12:00:00 AM EST 1.0 {tablet_a s_needed} active Phenergan 25 MG eCW1 ([facility]) Dicyclomine Hydrochloride 20 MG Oral Tablet Dicyclomin e HCl 20 MG Dicyclomine HCl 20 MG 02/06/2020 12:00:00 AM EST 1.0 {tablet} ac tive Dicyclomine HCl 20 MG eCW1 ([facility]) Phenergan 25 MG UNK 02/06/2020 12:00:00 AM EST 1.0 {tablet_a s_needed} active Phenergan 25 MG eCW1 ([facility]) Phenergan 25 MG UNK 02/06/2020 12:00:00 AM EST 1.0 {tablet_a s_needed} active Phenergan 25 MG eCW1 ([facility]) Phenergan 25 MG UNK 02/06/2020 12:00:00 AM EST 1.0 {tablet_a s_needed} active Phenergan 25 MG eCW1 ([facility]) Phenergan 25 MG UNK 02/06/2020 12:00:00 AM EST 1.0 {tablet_a s_needed} active Phenergan 25 MG eCW1 ([facility]) Dicyclomine Hydrochloride 20 MG Oral Tablet Dicyclomin e HCl 20 MG Dicyclomine HCl 20 MG 02/06/2020 12:00:00 AM EST 1.0 {tablet} ac tive Dicyclomine HCl 20 MG eCW1 ([facility]) Phenergan 25 MG UNK 02/06/2020 12:00:00 AM EST 1.0 {tablet_a s_needed} active Phenergan 25 MG eCW1 ([facility]) Phenergan 25 MG UNK 02/06/2020 12:00:00 AM EST 1.0 {tablet_a s_needed} active Phenergan 25 MG eCW1 ([facility]) Phenergan 25 MG UNK 02/06/2020 12:00:00 AM EST 1.0 {tablet_a s_needed} active Phenergan 25 MG eCW1 ([facility]) Phenergan 25 MG UNK 02/06/2020 12:00:00 AM EST 1.0 {tablet_a s_needed} active Phenergan 25 MG eCW1 ([facility]) Phenergan 25 MG UNK 02/06/2020 12:00:00 AM EST 1.0 {tablet_a s_needed} active Phenergan 25 MG eCW1 ([facility]) Dicyclomine Hydrochloride 20 MG Oral Tablet Dicyclomin e HCl 20 MG Dicyclomine HCl 20 MG 02/06/2020 12:00:00 AM EST 1.0 {tablet} ac tive Dicyclomine HCl 20 MG eCW1 ([facility]) Dicyclomine Hydrochloride 20 MG Oral Tablet Dicyclomin e HCl 20 MG Dicyclomine HCl 20 MG 02/06/2020 12:00:00 AM EST 1.0 {tablet} ac tive Dicyclomine HCl 20 MG eCW1 ([facility]) Phenergan 25 MG UNK 02/06/2020 12:00:00 AM EST 1.0 {tablet_a s_needed} active Phenergan 25 MG eCW1 ([facility]) perflutren lipid microsphere (DEFINITY) 8.476 mg in 10 mL NS IV 01/10/2020 08:42:45 AM EST Intravenous active 2-10 mL, Intravenous, Once as needed, to be used when clinically necessary, Starting Wed01/10/20 at 0842, For 1 dose
To be given with property maintenance technician at bedside for exam 1. Activate in VIALMIX agitator for 45 seconds 2. Withdraw 1.3 ml of activated perflutren suspension and dilute in 8.7 ml of 0.9% NS (Total volume = 10 ml) 3. Inject 2 ml slowly over 30 seconds. Repeat in 2 ml aliquots as needed. DO NOT EXCEED 10 ML TOTAL DOSE!
[facility] Medication administered onsite Potassium Chloride Thais ER 10 MEQ Potassium Chloride Thais ER 10 MEQ 12/25/2019 12:00:00 AM EDT 1.0 {tablet_with_food} active Potassium Chloride Thais ER 10 MEQ eCW1 ([facility]) Potassium Chloride Thais ER 10 MEQ Potassium Chloride Thais ER 10 MEQ 12/25/2019 12:00:00 AM EDT 1.0 {tablet_with_food} active Potassium Chloride Thais ER 10 MEQ eCW1 ([facility]) Potassium Chloride Thais ER 10 MEQ Potassium Chloride Thais ER 10 MEQ 12/25/2019 12:00:00 AM EDT 1.0 {tablet_with_food} active Potassium Chloride Thais ER 10 MEQ eCW1 ([facility]) Potassium Chloride Thais ER 10 MEQ Potassium Chloride Thais ER 10 MEQ 12/25/2019 12:00:00 AM EDT 1.0 {tablet_with_food} active Potassium Chloride Thais ER 10 MEQ eCW1 ([facility]) Potassium Chloride Thais ER 10 MEQ Potassium Chloride Thais ER 10 MEQ 12/25/2019 12:00:00 AM EDT 1.0 {tablet_with_food} active Potassium Chloride Thais ER 10 MEQ eCW1 ([facility]) Potassium Chloride Thais ER 10 MEQ Potassium Chloride Thais ER 10 MEQ 12/25/2019 12:00:00 AM EDT 1.0 {tablet_with_food} active Potassium Chloride Thais ER 10 MEQ eCW1 ([facility]) Potassium Chloride Thais ER 10 MEQ Potassium Chloride Thais ER 10 MEQ 12/25/2019 12:00:00 AM EDT 1.0 {tablet_with_food} active Potassium Chloride Thais ER 10 MEQ eCW1 ([facility]) Potassium Chloride Thais ER 10 MEQ Potassium Chloride Thais ER 10 MEQ 12/25/2019 12:00:00 AM EDT 1.0 {tablet_with_food} active Potassium Chloride Thais ER 10 MEQ eCW1 ([facility]) Potassium Chloride Thais ER 10 MEQ Potassium Chloride Thais ER 10 MEQ 12/25/2019 12:00:00 AM EDT 1.0 {tablet_with_food} active Potassium Chloride Thais ER 10 MEQ eCW1 ([facility]) Potassium Chloride Thais ER 10 MEQ Potassium Chloride Thais ER 10 MEQ 12/25/2019 12:00:00 AM EDT 1.0 {tablet_with_food} active Potassium Chloride Thais ER 10 MEQ eCW1 ([facility]) Potassium Chloride Thais ER 10 MEQ Potassium Chloride Thais ER 10 MEQ 12/25/2019 12:00:00 AM EDT 1.0 {tablet_with_food} active Potassium Chloride Thais ER 10 MEQ eCW1 ([facility]) Potassium Chloride Thais ER 10 MEQ Potassium Chloride Thais ER 10 MEQ 12/25/2019 12:00:00 AM EDT 1.0 {tablet_with_food} active Potassium Chloride Thais ER 10 MEQ eCW1 ([facility]) Triamcinolone Acetonide 0.001 MG/MG Oral Paste Triamci nolone Acetonide 0.1 % Triamcinolone Acetonide 0.1 % 12/21/2019 12:00:00 AM EDT active Triamcinolone Acetonide 0.1 % eCW1 ([facility]) Triamcinolone Acetonide 0.001 MG/MG Oral Paste Triamci nolone Acetonide 0.1 % Triamcinolone Acetonide 0.1 % 12/21/2019 12:00:00 AM EDT active Triamcinolone Acetonide 0.1 % eCW1 ([facility]) Potassium Chloride 20 MEQ Potassium Chloride 20 MEQ 12/21/2019 1 2:00:00 AM EDT 1.0 {packet_with_food} active P otassium Chloride 20 MEQ eCW1 ([facility]) Triamcinolone Acetonide 0.001 MG/MG Oral Paste Triamci nolone Acetonide 0.1 % Triamcinolone Acetonide 0.1 % 12/21/2019 12:00:00 AM EDT active Triamcinolone Acetonide 0.1 % eCW1 ([facility]) Triamcinolone Acetonide 0.001 MG/MG Oral Paste Triamci nolone Acetonide 0.1 % Triamcinolone Acetonide 0.1 % 12/21/2019 12:00:00 AM EDT active Triamcinolone Acetonide 0.1 % eCW1 ([facility]) Triamcinolone Acetonide 0.001 MG/MG Oral Paste Triamci nolone Acetonide 0.1 % Triamcinolone Acetonide 0.1 % 12/21/2019 12:00:00 AM EDT suspended Triamcinolone Acetonide 0.1 % eCW1 ([facility]) Triamcinolone Acetonide 0.001 MG/MG Oral Paste Triamci nolone Acetonide 0.1 % Triamcinolone Acetonide 0.1 % 12/21/2019 12:00:00 AM EDT active Triamcinolone Acetonide 0.1 % eCW1 ([facility]) Triamcinolone Acetonide 0.001 MG/MG Oral Paste Triamci nolone Acetonide 0.1 % Triamcinolone Acetonide 0.1 % 12/21/2019 12:00:00 AM EDT active Triamcinolone Acetonide 0.1 % eCW1 ([facility]) Potassium Chloride 20 MEQ Potassium Chloride 20 MEQ 12/21/2019 1 2:00:00 AM EDT 1.0 {packet_with_food} active P otassium Chloride 20 MEQ eCW1 ([facility]) Potassium Chloride 20 MEQ Potassium Chloride 20 MEQ 12/21/2019 1 2:00:00 AM EDT 1.0 {packet_with_food} active P otassium Chloride 20 MEQ eCW1 ([facility]) Triamcinolone Acetonide 0.001 MG/MG Oral Paste Triamci nolone Acetonide 0.1 % Triamcinolone Acetonide 0.1 % 12/21/2019 12:00:00 AM EDT active Triamcinolone Acetonide 0.1 % eCW1 ([facility]) Potassium Chloride 20 MEQ Potassium Chloride 20 MEQ 12/21/2019 1 2:00:00 AM EDT 1.0 {packet_with_food} active P otassium Chloride 20 MEQ eCW1 ([facility]) Triamcinolone Acetonide 0.001 MG/MG Oral Paste Triamci nolone Acetonide 0.1 % Triamcinolone Acetonide 0.1 % 12/21/2019 12:00:00 AM EDT active Triamcinolone Acetonide 0.1 % eCW1 ([facility]) Triamcinolone Acetonide 0.001 MG/MG Oral Paste Triamci nolone Acetonide 0.1 % Triamcinolone Acetonide 0.1 % 12/21/2019 12:00:00 AM EDT active Triamcinolone Acetonide 0.1 % eCW1 ([facility]) Triamcinolone Acetonide 0.001 MG/MG Oral Paste Triamci nolone Acetonide 0.1 % Triamcinolone Acetonide 0.1 % 12/21/2019 12:00:00 AM EDT active Triamcinolone Acetonide 0.1 % eCW1 ([facility]) Triamcinolone Acetonide 0.001 MG/MG Oral Paste Triamci nolone Acetonide 0.1 % Triamcinolone Acetonide 0.1 % 12/21/2019 12:00:00 AM EDT active Triamcinolone Acetonide 0.1 % eCW1 ([facility]) Triamcinolone Acetonide 0.001 MG/MG Oral Paste Triamci nolone Acetonide 0.1 % Triamcinolone Acetonide 0.1 % 12/21/2019 12:00:00 AM EDT active Triamcinolone Acetonide 0.1 % eCW1 ([facility]) Triamcinolone Acetonide 0.001 MG/MG Oral Paste Triamci nolone Acetonide 0.1 % Triamcinolone Acetonide 0.1 % 12/21/2019 12:00:00 AM EDT active Triamcinolone Acetonide 0.1 % eCW1 ([facility]) Triamcinolone Acetonide 0.001 MG/MG Oral Paste Triamci nolone Acetonide 0.1 % Triamcinolone Acetonide 0.1 % 12/21/2019 12:00:00 AM EDT active Triamcinolone Acetonide 0.1 % eCW1 ([facility]) Triamcinolone Acetonide 0.001 MG/MG Oral Paste Triamci nolone Acetonide 0.1 % Triamcinolone Acetonide 0.1 % 12/21/2019 12:00:00 AM EDT active Triamcinolone Acetonide 0.1 % eCW1 ([facility]) Triamcinolone Acetonide 0.001 MG/MG Oral Paste Triamci nolone Acetonide 0.1 % Triamcinolone Acetonide 0.1 % 12/21/2019 12:00:00 AM EDT active Triamcinolone Acetonide 0.1 % eCW1 ([facility]) Potassium Chloride 20 MEQ Potassium Chloride 20 MEQ 12/21/2019 1 2:00:00 AM EDT 1.0 {packet_with_food} active P otassium Chloride 20 MEQ eCW1 ([facility]) Potassium Chloride 20 MEQ Potassium Chloride 20 MEQ 12/21/2019 1 2:00:00 AM EDT 1.0 {packet_with_food} active P otassium Chloride 20 MEQ eCW1 ([facility]) Triamcinolone Acetonide 0.001 MG/MG Oral Paste Triamci nolone Acetonide 0.1 % Triamcinolone Acetonide 0.1 % 12/21/2019 12:00:00 AM EDT suspended Triamcinolone Acetonide 0.1 % eCW1 ([facility]) Triamcinolone Acetonide 0.001 MG/MG Oral Paste Triamci nolone Acetonide 0.1 % Triamcinolone Acetonide 0.1 % 12/21/2019 12:00:00 AM EDT active Triamcinolone Acetonide 0.1 % eCW1 ([facility]) Triamcinolone Acetonide 0.001 MG/MG Oral Paste Triamci nolone Acetonide 0.1 % Triamcinolone Acetonide 0.1 % 12/21/2019 12:00:00 AM EDT active Triamcinolone Acetonide 0.1 % eCW1 ([facility]) Triamcinolone Acetonide 0.001 MG/MG Oral Paste Triamci nolone Acetonide 0.1 % Triamcinolone Acetonide 0.1 % 12/21/2019 12:00:00 AM EDT active Triamcinolone Acetonide 0.1 % eCW1 ([facility]) Triamcinolone Acetonide 0.001 MG/MG Oral Paste Triamci nolone Acetonide 0.1 % Triamcinolone Acetonide 0.1 % 12/21/2019 12:00:00 AM EDT active Triamcinolone Acetonide 0.1 % eCW1 ([facility]) Triamcinolone Acetonide 0.001 MG/MG Oral Paste Triamci nolone Acetonide 0.1 % Triamcinolone Acetonide 0.1 % 12/21/2019 12:00:00 AM EDT active Triamcinolone Acetonide 0.1 % eCW1 ([facility]) Triamcinolone Acetonide 0.001 MG/MG Oral Paste Triamci nolone Acetonide 0.1 % Triamcinolone Acetonide 0.1 % 12/21/2019 12:00:00 AM EDT active Triamcinolone Acetonide 0.1 % eCW1 (Formerly [facility]) Triamcinolone Acetonide 0.001 MG/MG Oral Paste Triamci nolone Acetonide 0.1 % Triamcinolone Acetonide 0.1 % 12/21/2019 12:00:00 AM EDT active Triamcinolone Acetonide 0.1 % eCW1 (Formerly [facility]) Triamcinolone Acetonide 0.001 MG/MG Oral Paste Triamci nolone Acetonide 0.1 % Triamcinolone Acetonide 0.1 % 12/21/2019 12:00:00 AM EDT active Triamcinolone Acetonide 0.1 % eCW1 ([facility]) Triamcinolone Acetonide 0.001 MG/MG Oral Paste Triamci nolone Acetonide 0.1 % Triamcinolone Acetonide 0.1 % 12/21/2019 12:00:00 AM EDT suspended Triamcinolone Acetonide 0.1 % eCW1 ([facility]) Triamcinolone Acetonide 0.001 MG/MG Oral Paste Triamci nolone Acetonide 0.1 % Triamcinolone Acetonide 0.1 % 12/21/2019 12:00:00 AM EDT active Triamcinolone Acetonide 0.1 % eCW1 ([facility]) Triamcinolone Acetonide 0.001 MG/MG Oral Paste Triamci nolone Acetonide 0.1 % Triamcinolone Acetonide 0.1 % 12/21/2019 12:00:00 AM EDT active Triamcinolone Acetonide 0.1 % eCW1 ([facility]) Triamcinolone Acetonide 0.001 MG/MG Oral Paste Triamci nolone Acetonide 0.1 % Triamcinolone Acetonide 0.1 % 12/21/2019 12:00:00 AM EDT suspended Triamcinolone Acetonide 0.1 % eCW1 ([facility]) Triamcinolone Acetonide 0.001 MG/MG Oral Paste Triamci nolone Acetonide 0.1 % Triamcinolone Acetonide 0.1 % 12/21/2019 12:00:00 AM EDT active Triamcinolone Acetonide 0.1 % eCW1 ([facility]) Triamcinolone Acetonide 0.001 MG/MG Oral Paste Triamci nolone Acetonide 0.1 % Triamcinolone Acetonide 0.1 % 12/21/2019 12:00:00 AM EDT active Triamcinolone Acetonide 0.1 % eCW1 ([facility]) Potassium Chloride 20 MEQ Potassium Chloride 20 MEQ 12/21/2019 1 2:00:00 AM EDT 1.0 {packet_with_food} active P otassium Chloride 20 MEQ eCW1 ([facility]) Insurance Providers Payer name Policy type / Coverage type Policy ID Covered republican ID Covered republican's relationship to eason Policy Eason Plan Information MEDICARE A [id number] Self [id number] A MEDICARE 4 [id number] 1 [id number] A ASSIGNED MEDICARE (81) [id number] 1 [id number] MEDICARE A [id number] Self [id number] A COMMERCIAL GENERIC [id number] Lili 1 [id number] UHC I [id number] Self [id number] UHC I [id number] Self [id number] UHC I [id number] Self [id number] COMMERCIAL GENERIC [id number] Lili [id number] COMMERCIAL GENERIC [id number] Lili 1 [id number] MEDICAID [id number] Lili [id number] C [id number] Lili [id number] [facility] [id number] SP [id number] INSURANCE COVID-19 [id number] xxxxx 2 [id number] INSURANCE COVID-19 COVID Lili C OVID MEDICAID M [id number] S [id number] [id number] S [id number] [facility] [id number] SP [id number] SELF PAY ONLY [id number] SP [id number] [id number] SP [id number] SELF PAY S MEDICAID [id number] S [id number] MEDICARE [id number] SP [id number] A AETNA MEDICARE [id number] SP [id number] MEDICARE C [id number] S [id number] A AETNA MEDICARE [id number] SP [id number] DPJ AETNA MEDICARE O [id number] S [id number] DPJ AETNA MEDICARE [id number] SP [id number] DPJ [facility] [id number] SP [id number] [facility]. [facility] O [id number] O [id number] SELF PAY UNAVAILABLE UNAVAILA BLE BC BLUE CARD 1 [id number] SELF PAY 2 UNAVAILABLE 1 UNAVAILA BLE BC BLUE CARD 1 [id number] UNHC COMMUNITY PLAN MCDO [id number] SP [id number] O BLUE [id number] SP [id number] [place] [id number] SP [id number] Z 'S ADMINISTRATION [id number] SP [id number] UNHC COMMUNITY PLAN XIX [id number] 18 [id number] [facility](MCAID) O [id number] S [id number] NEAL HEALTHCARE-O/P [id number] UNITED HEALTHCARE-O/P UNAVAILABLE UNAVAILABLE COMMERCIAL GENERIC [id number] Lili [id number] COMMERCIAL GENERIC [id number] xxxxxxxxxxxxxxxxx [id number] OPTUM [place] O [id number] S [id number] [place] O [id number] S [id number] 16 [place] CCN OPTUM [id number] SP [id number] OTHER MCR O [id number] SP [id number] MEDICAID [id number] SP [id number] Problems, Conditions, and Diagnoses Code Display Name Description Problem Type Effective Dates Data Source(s) Z5321 Procedure and treatment not carried out due to patient leaving prior to being seen by health care provider Procedure and treatment not carried out due to patient leaving prior to being seen by health care provider Diagnosis 11/06/2020 12:39:00 AM EDT [facility] [id number] Poisoning by heroin, accidental (uninten tional), initial encounter Poisoning by heroin, accidental (unintentional), initial encounter Diagnosis 11/06/2020 12:39:00 AM EDT [facility] Z8614 Personal history of Methicillin resistan t Staphylococcus aureus infection Personal history of Methicillin resistant Staphylococcus aureus infection Diagnosis 07/03/2020 12:48:00 PM EDT [facility] C18284 Nicotine dependence, cigarettes, uncompl icated Nicotine dependence, cigarettes, uncomplicated Diagnosis 07/03/2020 12:48:00 PM EDT [facility] I10 Essential (primary) hypertension Essential (primary) h ypertension Diagnosis 07/03/2020 12:48:00 PM EDT [facility] B9689 Other specified bacterial ag ents as the cause of diseases classified elsewhere Other specified bacterial agents as the cause of diseases classified elsewhere Diagnosis 07/03/2020 12:48:00 PM EDT [facility] J208 Acute bronchitis due to other specified organisms Acute bronchitis due to other specified organisms Diagnosis 07/03/2020 12:48:00 PM EDT [facility] R0600 Dyspnea, unspecified Dyspnea, unspecified Diagnosis 07/03/2020 12:48:00 PM EDT [facility] S58597 CONTACT WITH AND SUSPECTED EXPOSURE TO C OVID-19 CONTACT WITH AND SUSPECTED EXPOSURE TO COVID-19 Diagnosis 04/28/2020 04:02:00 PM [facility] E876 Hypokalemia Hypokalemia Diagnosis 04/28/2020 04:02:00 PM [facility] M14835 Opioid dependence with intoxication with perceptual disturbance Opioid dependence with intoxication with perceptual disturbance Diagnosis 04/28/2020 04:02:00 PM [facility] R4182 Altered mental status, unspecified Altered menta l status, unspecified Diagnosis 04/28/2020 04:02:00 PM [facility] R99 Ill-defined and unknown cause of mortali ty Ill-defined and unknown cause of mortality Diagnosis 02/21/2020 08:06:00 AM [facility] Z8619 Personal history of other infectious and parasitic diseases Personal history of other infectious and parasitic diseases Diagnosis 10:34:00 AM [facility] D509 Iron deficiency anemia, unspecified Iron deficie ncy anemia, unspecified Diagnosis 02/20/2020 10:34:00 AM [facility] B9562 Methicillin resistant Staphy lococcus aureus infection as the cause of diseases classified elsewhere Methicillin resistant Staphylococcus aur eus infection as the cause of diseases classified elsewhere Diagnosis 02/20/2020 10:34:00 AM [facility] I38 Endocarditis, valve unspecified Endocarditis, valve un specified Diagnosis 01/10/2020 07:49:00 AM [facility] U07.1 COVID-19 COVID-19 Diagnosis 01/09/2020 02:31:48 PM [facility] I33.0 Acute and subacute infective endocarditi s Acute and subacute infective endocarditi Diagnosis 01/01/2020 02:48:[address] [facility] I73.00 [id number] Raynaud's disease without gangrene Proble m 09/11/2020 12:00:00 AM EDT eCW1 ([facility]) M05.79 [id number] Rheumatoid arthritis involving multiple sites with positive rheumatoid factor Problem 08/27/2020 12:00:00 AM EDT eCW1 ([facility]) I73.89 [id number] Acrocyanosis Problem 08/07/2020 12:00:00 AM EDT eCW1 ([facility]) M79.89 [id number] Swelling of finger of right hand Pro blem 07/02/2020 12:00:00 AM EDT eCW1 ([facility]) M05.742 [id number] Rheumatoid arthritis involving left hand with positive rheumatoid factor Problem 07/02/2020 12:00:00 AM EDT eCW1 ([facility]) J40 [id number] Bronchitis Problem 07/02/2020 12:00:00 AM ED T eCW1 ([facility]) F19.10 [id number] IV drug abuse Problem 06/17/2020 12:00:00 AM EDT eCW1 ([facility]) J18.9 [id number] Pneumonia due to inf ectious organism, unspecified laterality, unspecified part of lung Problem 02/20/2020 12:00:00 AM EST eCW1 ([facility]) R11.14 [id number] Bilious vomiting with nausea Problem 020 12:00:00 AM EST eCW1 ([facility]) I38 Endocarditis Endocarditis [id number] 01/08/2020 12:00:[address] [facility] K12.0 [id number] Aphthous ulcer Problem 12/21/2019 12:00:00 A M EDT eCW1 ([facility]) I33.0 Acute and subacute bacterial endocarditi s Acute and subacute bacterial endocarditis [id number] 12/19/2019 12:00:[address] [facility] Surgeries/Procedures Procedure Description Date Indications Data Source(s) Imm: Flublok Quadrivalent 18 years & older 0.5mL IM Influenz a 11/21/2020 12:00:00 AM EDT eCW1 ([facility]) Med: Derm 1% Lidocaine with Epinephrine Injection Intr adermally to marked areas 08/07/2020 12:00:00 AM EDT eCW1 ([facility]) POC SODIUM <td>POC SODIUM</td><td>Routi ne</td><td>01/10/2020 9:11 AM EST</td><td></td><td> </td> 01/10/2020 02:11:[address] [facility] POC IONIZED CALCIUM <td>POC IONIZED CALCIUM</td> <td>Routine</td><td>01/10/2020 9:11 AM EST</td><td></td><td> </td> 01/10/2020 02:11:[address] [facility] POC GLUCOSE <td>POC GLUCOSE</td><td>Rout ine</td><td>01/10/2020 9:11 AM EST</td><td></td><td> </td> 01/10/2020 02:11:[address] [facility] POCT POTASSIUM <td>POCT POTASSIUM</td><td>R outine</td><td>01/10/2020 9:11 AM EST</td><td></td><td> </td> 01/10/2020 02:11:[address] [facility] BLOOD COUNT HEMATOCRIT <td>POCT HEMATOCRIT</td><td> Routine</td><td>01/10/2020 9:11 AM EST</td><td></td><td> </td> 01/10/2020 02:11:[address] [facility] 2019 NCOV AMPLIFIED <td>2019 NCOV AMPLIFIED</td> <td>STAT</td><td>01/09/2020 11:55 AM EST</td><td> COVID-19</td><td> </td> 01/09/2020 04:55:00 PM EST COVID-19 [facility] COVID-19 Results ID Date Data Source [id number] 11/11/2020 09:23:00 AM EDT [facility] Name Value Range Interpretation Code Description Data Teresa rce(s) Supporting Document(s) SARS coronavirus 2 RNA [Presence] in Res piratory specimen by DAVE with probe detection NEGATIVE [facility] This lab was ordered by [facility] a nd reported by [facility]. ID Date Data Source [id number] 11/06/2020 12:39:00 AM EDT [facility] 1 Medication Reconciliation Report [facility] Emergency Department [address] [place] [address] Phone #: ext- [phone] 11/06/2020 00:39 Patient: [...] rce(s) Supporting Document(s) ID Date Data Source [id number] 11/06/2020 12:39:00 AM EDT [facility] 1 Medication Administration Record [facility] Emergency Department [address] [place] [address] Phone #: ext- [phone] 11/06/2020 00:39 Patient: SUJEY DOTY Sex: F : 1970 Age: 50yWeight: 40.8 kgHeight/Length: 58 inBMI: 18.8ALLERGIES: Penicillins, Sulfa Antibiotics, Tramadol, Trimethoprim, VancomycinDate/Time Medication Administered Medication Ordered Name Value Range Interpretation Code Description Data [facility] Supporting Document(s) ID Date Data Source [id number] 11/06/2020 12:39:00 AM EDT [facility] 1 Clinical Report - Nurses [facility] Emergency Department [address] [place] [address] Phone #: [phone]- [phone] 11/06/2020 00:39 Patient: SUJEY DOTY Sex: F [...] and anxious"). 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 --00:43 11/06/20 Mariola Argueta R.N.Acuity: [...] R.N.AllergiesPenicillins.Sulfa Antibiotics.Tramadol. 2 Clinical Report - Nurses [facility] Emergency Department [address] [place] [address] Phone #: ext- [phone] 11/06/2020 00:39 Patient: [...] not labored. 3 Clinical Report - Nurses [facility] Emergency Department [address] [place] [address] Phone #: [phone]- [phone] 11/06/2020 00:39 Patient: SUJEY DOTY Sex: F [...] rce(s) Supporting Document(s) ID Date Data Source [id number] 09/24/2020 09:42:00 PM EDT [facility] Name Value Range Interpretation Code Description Data Teresa rce(s) Supporting Document(s) SARS-CoV-2 (COVID 19) NEGATIVE - SARS-CoV-2 (COVID19) [facility] This lab was ordered by [facility] a nd reported by [facility]. ID Date Data Source BLOOD CULTURES 09/20/2020 12:00:00 AM EDT eCW1 ([facility]) Name Value Range Interpretation Code Description Data Teresa rce(s) Supporting Document(s) BLOOD CULTURES eCW1 ([facility]) ID Date Data Source WOUND CULTURE 09/19/2020 12:00:00 AM EDT eCW1 ([facility]) Name Value Range Interpretation Code Description Data Teresa rce(s) Supporting Document(s) FULL REPORT IN LAB NOTES ([facility] and [facility]). WOUND CULTURE W1 ([facility]) ID Date Data Source [id number] 08/27/2020 04:06:00 PM EDT [facility] Name Value Range Interpretation Code Description Data Teresa rce(s) Supporting Document(s) Trich vag by DAVE Abnormal (applies to non-numeric results) [facility] TESTS RESULT FLAG UNI TS REF RANGE LAB Trich vag by DAVE Positive [A] (Negative) 01 FLAG LEGEND: L-Low Normal,H-High Normal,LL-Alert Low,HH-Alert High <-Panic Low,>-Panic High,A-Abnormal,AA-Critical Abnormal Performed at:01 RN [facility] [address] [id number] Awa Andrade MD, ID Date Data Source [id number] 08/09/2020 08:27:00 PM EDT [facility] Name Value Range Interpretation Code Description Data Teresa rce(s) Supporting Document(s) SARS coronavirus 2 RNA [Presence] in Res piratory specimen by DAVE with probe detection NEGATIVE [facility] This lab was ordered by [facility] a nd reported by [facility]. ID Date Data Source FREE T4 & TSH PANEL 08/07/2020 12:00:00 AM EDT eCW1 ([facility]) Name Value Range Interpretation Code Description Data Teresa rce(s) Supporting Document(s) 0.316 0.358-3.740 THYROID STIMULATING HORM ONE eCW1 ([facility]) 0.87 0.76-1.46 FREE T4 eCW1 ([facility]) ID Date Data Source ERYTHROCYTE SEDIMENTATION RATE 08/07/2020 12:00:00 AM EDT eC W1 ([facility]) Name Value Range Interpretation Code Description Data Teresa rce(s) Supporting Document(s) 22 0-20 ERYTHROCYTE SEDIMENTATION RATE eCW1 ([facility]) ID Date Data Source Comprehensive Metabolic Profile (CMP) 08/07/2020 12:00:00 AM EDT eCW1 ([facility]) Name Value Range Interpretation Code Description Data Teresa rce(s) Supporting Document(s) ELECTROLYTE PROFILE eCW1 ([facility], 1928[facility]1983) COMPREHENSIVE METABOLIC PROFIL E eCW1 ([facility]) CREATININE eCW1 ([facility]) CREATININE WITH GFR eCW1 ([facility]) BUN eCW1 ([facility]) GLUCOSE eCW1 ([facility]) CHLORIDE eCW1 ([facility]) POTASSIUM eCW1 ([facility]) SODIUM eCW1 ([facility]) ALK PHOS eCW1 ([facility]) CALCIUM eCW1 ([facility]) CARBON DIOXIDE eCW1 ([facility]) ALB/GLOB RATIO eCW1 ([facility]) 0.72 0.55-1.30 CREATININE FOR GFR eCW1 ([facility]) 13 7-18 BLOOD UREA NITROGEN eCW1 ([facility]) 104 70-100 GLUCOSE, FASTING eCW1 ([facility]) 109 98-107 CHLORIDE LEVEL eCW1 ([facility]) 3.9 3.5-5.1 POTASSIUM SERUM eCW1 ([facility]) 141 136-145 SODIUM LEVEL eCW1 ([facility]) > 60.0 >58 GLOMERULAR FILTRATION RATE eCW 1 ([facility]) 27 21-32 CARBON DIOXIDE LEVEL eCW1 ([facility]) 15 7-37 AST/SGOT eCW1 ([facility]) 14 12-78 ALT/SGPT eCW1 ([facility]) 8.9 8.5-10.1 CALCIUM LEVEL eCW1 ([facility]) 128 45-117 ALKALINE PHOSPHATASE eCW1 ([facility]) 6.5 6.4-8.2 TOTAL PROTEIN eCW1 ([facility]) 0.3 0.2-1.0 BILIRUBIN,TOTAL eCW1 ([facility]) 1.0 1.2-2.2 ALBUMIN/GLOBULIN RATIO eCW1 ([facility]) 3.3 3.2-5.2 ALBUMIN eCW1 ([facility]) ID Date Data Source CBC - Complete Blood Count 08/07/2020 12:00:00 AM EDT eCW1 ( [facility]) Name Value Range Interpretation Code Description Data Teresa rce(s) Supporting Document(s) 8.8 4.0-10.0 WHITE BLOOD COUNT eCW1 ([facility]) 4.71 4.00-5.40 RED BLOOD COUNT eCW1 ([facility]) 87.7 80.0-96.0 MEAN CORPUSCULAR VOLUME e CW1 ([facility]) 41.3 36.0-47.0 HEMATOCRIT eCW1 ([facility]) 13.1 12.0-15.5 HEMOGLOBIN eCW1 ([facility]) 31.7 32.0-36.5 MEAN CORPUSCULAR HGB CONC eCW1 ([facility]) 14.4 11.5-14.5 RED CELL DISTRIBUTION WID TH eCW1 ([facility]) 27.8 27.0-33.0 MEAN CORPUSCULAR HEMOGLOB IN eCW1 ([facility]) 371 150-450 PLATELET COUNT, AUTOMATED eCW1 ([facility]) ID Date Data Source C REACTIVE PROTEIN QUANTITATIV (At [facility]) 07/25/2020 12:00 :00 AM EDT eCW1 ([facility]) Name Value Range Interpretation Code Description Data Teresa rce(s) Supporting Document(s) C-REACTIVE PROT QNT eCW1 ([facility], 1928[facility]) 6.27 0.00-0.30 C REACTIVE PROTEIN QUANTI TATIV eCW1 ([facility]) ID Date Data Source CBC with Differential 07/25/2020 12:00:00 AM EDT eCW1 ([facility]) Name Value Range Interpretation Code Description Data Teresa rce(s) Supporting Document(s) 13.8 4.0-10.0 WHITE BLOOD COUNT eCW1 ([facility]) 4.53 4.00-5.40 RED BLOOD COUNT eCW1 ([facility]) 12.6 12.0-15.5 HEMOGLOBIN eCW1 ([facility]) 38.0 36.0-47.0 HEMATOCRIT eCW1 ([facility]) 27.8 27.0-33.0 MEAN CORPUSCULAR HEMOGLOB IN eCW1 ([facility]) 33.2 32.0-36.5 MEAN CORPUSCULAR HGB CONC eCW1 ([facility]) 83.9 80.0-96.0 MEAN CORPUSCULAR VOLUME e CW1 ([facility]) 328 150-450 PLATELET COUNT, AUTOMATED eCW1 ([facility]) 67.0 36.0-66.0 NEUTROPHILS % eCW1 ([facility]) 13.8 11.5-14.5 RED CELL DISTRIBUTION WID TH eCW1 ([facility]) 0.3 0.0-1.0 BASO % eCW1 ([facility]) 24.5 24.0-44.0 LYMPH % eCW1 ([facility]) 1.8 0.0-3.0 EOS % eCW1 ([facility]) 5.9 2.0-8.0 MONO % eCW1 ([facility]) 0.8 0.0-0.8 MONO # eCW1 ([facility]) 0.3 0.0-0.5 EOS # eCW1 ([facility]) 3.4 1.5-5.0 LYMPH # eCW1 ([facility]) 9.2 1.5-8.5 NEUTROPHILS # eCW1 ([facility]) 0.0 0.0-0.2 BASO # eCW1 ([facility]) ID Date Data Source [id number] 07/03/2020 12:48:00 PM EDT [facility] 1 OrderSheet [facility] Emergency Department [address] [place] [address] Phone #: ext- [phone] 07/03/2020 12:47 Patient: [...] rce(s) Supporting Document(s) ID Date Data Source [id number] 07/03/2020 12:48:00 PM EDT [facility] 1 Medication Reconciliation Report [facility] Emergency Department [address] [place] [address] Phone #: ext- [phone] 07/03/2020 12:47 Patient: [...] administered: 13:25 07/03/2020 2 Medication Reconciliation Report [facility] Emergency Department [address] [place] [address] Phone #: ext- [phone] 07/03/2020 12:47 Patient: SUJEY DOTY Sex: F : 1970 Age: 49yToradol [IM] IM 30 mg, administered: 13:36 07/03/2020The following Medications were prescribed to the patient:azithromycin 250 mg tablet -- Take 2 tablets on the first day then one tablet daily for 4 days, totalduration is 5 days. Dispense 6 tablet. Refills: 0. Substitution permitted.[facility] [address] ; [place] [address]. .prednisone 20 mg tablet Take 2 tablet once a day with meals for 5 days -- Dispense 10 tablet. Refills: 0.Substitution permitted.[facility] [address] ; [place] [address]. .albuterol sulfate HFA 90 mcg/actuation aerosol inhaler Inhale 2 puff four times a day -- Dispense 8.5gram. Refills: 0. Substitution permitted.[facility] [address] [place] [address] ; [place] [address]. .ketorolac 10 mg tablet Take 1 tablet four times a day for 5 days -- Dispense 20 tablet. Refills: 0.Substitution permitted.[facility] [address] ; [place] [address]. . -- LONI Johnson Name Value Range Interpretation Code Description Data Teresa rce(s) Supporting Document(s) ID Date Data Source [id number] 07/03/2020 12:48:00 PM EDT [facility] 1 Medication Administration Record [facility] Emergency Department [address] [place] [address] Phone #: ext- [phone] 07/03/2020 12:47 Patient: SUJEY DOTY Sex: F [...] rce(s) Supporting Document(s) ID Date Data Source [id number] 07/03/2020 12:48:00 PM EDT [facility] 1 General Instructions [facility] Emergency Department [address] [place] [address] Phone #: ext- [phone] 07/03/2020 12:47 Patient: [...] Dispense 6 tablet. Refills: 0. Substitution permitted. [facility] [place] [address]. . prednisone 20 mg tablet Take 2 tablet once a day with meals for 5 days -- Dispense 10 tablet. Refills: 0. Substitution permitted. [facility] [place] [address]. . albuterol sulfate HFA 90 mcg/actuation aerosol inhaler Inhale 2 puff four times a day -- Dispense 8.5 gram. Refills: 0. Substitution permitted. [facility] [place] [id number]. Phone: [phone] 3 General Instructions [facility] Emergency Department [address] [place] [address] Phone #: ext- [phone] 07/03/2020 12:47 Patient: SUJEY DOTY Sex: F : 1970 Age: [id number] .ketorolac 10 mg tablet Take 1 tablet four times a day for 5 days -- Dispense 20 tablet. Refills: 0.Substitution permitted.Pharmacy - [facility] [address] ; [place], [place] [id number]. .Follow-up:Follow up with your doctor in three days if not better. Reason for referral: evaluation and treatment.Summary of care provided to patient.Understanding of the discharge instructions verbalized by patient. ADDITIONAL INFORMATIONBronchitis, Antibiotic Treatment (Adult) 3 General Instructions [facility] Emergency Department [address] [place] [address] Phone #: ext- [phone] 07/03/2020 12:47 Patient: SUJEY DOTY Sex: F [...] away from secondhand smoke. You may use zeuf-wbf-kndbspd medicines to control fever or pain, unless [...] loosen mucus in your nose and lungs. Sqob-phw-fzhuusu cough, cold, and sore-throat medicines will not [...] flu shot (influenza vaccine). 4 General Instructions [facility] Emergency Department [address] [place] [address] Phone #: ext- [phone] 07/03/2020 12:47 Patient: [...] Trouble breathing, wheezing, or pain with breathing [phone] [employer]. [address] [place] [address], [place] [address]. All rights reserved. This information is not intended as asubstitute for professional medical care. Always follow your healthcare professional's instructions. You have been given the following additional information: Bronchitis, Antibiotic Treatment (Adult) (Electronically signed by LONI Johnson 07/04/2020 21:22) Name Value Range Interpretation Code Description Data Teresa rce(s) Supporting Document(s) ID Date Data Source [id number] 07/03/2020 12:48:00 PM EDT [facility] [facility] 1 Clinical Report - Nurses [facility] Emergency Department [address] [place] [address] Phone #: ext- [phone] 07/03/2020 12:47 Patient: [...] normal but the blood work was off).Treatment ADDICTIONS COUNSELOR:Recently seen at another facility in the office; [...] Mccormick RN. 2 Clinical Report - Nurses [facility] Emergency Department [address] [place] [address] Phone #: ext- [phone] 07/03/2020 12:47 Patient: SUJEY DOTY Sex: F [...] no deficiencies. 3 Clinical Report - Nurses [facility] Emergency Department [address] [place] [address] Phone #: ext- [phone] 07/03/2020 12:47 Patient: SUJEY DOTY Sex: F [...] treatment room. --12:59 07/03/20 Jhony Mccormick RN.PHYSICAL [id number] 07/03/20. To room via stretcher.GENERAL / NEURO [...] monitor and pulse oximeter placed on patient; monitoring manager- Lead II; monitoralarms on. Patient gowned. Head [...] (please see 4 Clinical Report - Nurses [facility] Emergency Department [address] [place] [address] Phone #: ext- [phone] 07/03/2020 12:47 Patient: SUJEY DOTY Sex: F : 1970 Age: 49y paper copy). Reviewed medication(s) side effects, precautions, dosing and course information. Prescription(s) sent electronically to pharmacy (toradol, azithromycin, prednisone, albuterol). Patient verbalized understanding. Written instructions provided in Faroese. The patient was discharged by the physician promotions assistant. She was discharged home and unaccompanied [...] rce(s) Supporting Document(s) ID Date Data Source [id number] 07/03/2020 12:48:00 PM EDT [facility] 1 Clinical Report - Physicians/Mid Levels [facility] Emergency Department [address] [place] [address] Phone #: ext- [phone] 07/03/2020 12:47 [id number] Sex: F : 1970 Age: 49y Time [...] Hysterectomy. 2 Clinical Report - Physicians/Mid Levels [facility] Emergency Department [address] [place] [address] Phone #: ext- [phone] 07/03/2020 12:47 Patient: [...] 2020. 3 Clinical Report - Physicians/Mid Levels [facility] Emergency Department [address] [place] [address] Phone #: pip- [phone] 07/03/2020 12:47 Patient: SUJEY DOTY Sex: F [...] Dispense 6 tablet. Refills: 0. Substitution permitted. [employer] [address] [id number]. . prednisone 20 mg tablet Take 2 tablet once a day with meals for 5 days -- Dispense 10 tablet. Refills: 0. Substitution permitted. [employer] [address] ; [place], [place] [id number]. . albuterol sulfate HFA 90 mcg/actuation aerosol inhaler Inhale 2 puff four times a day -- Dispense 8.5 gram. Refills: 0. Substitution permitted. 4 Clinical Report - Physicians/Mid Levels [facility] Emergency Department [address] [place] [address] Phone #: ext- [phone] 07/03/2020 12:47 Patient: SUJEY DOTY Sex: F : 1970 Age: 49y [employer] [address] [id number]. . ketorolac 10 mg tablet Take 1 tablet four times a day for 5 days -- Dispense 20 tablet. Refills: 0. Substitution permitted. [employer] [address] [id number]. . Follow- up: Follow up with your [...] BY PCR 07/02/2020 12:00:00 AM EDT eCW1 ([facility]) Name Value Range Interpretation Code Description Data Teresa rce(s) Supporting Document(s) HCV Not Detected . HEPATITIS C QUANTIT ATION eCW1 ([facility]) TNP . Hepatitis C log10 eCW1 ([facility]) ID Date Data Source COMPLEMENT C4 07/02/2020 12:00:00 AM EDT eCW1 ([facility]) Name Value Range Interpretation Code Description Data Teresa rce(s) Supporting Document(s) 30 10-40 COMPLEMENT C4 eCW1 ([facility]) ID Date Data Source COMPLEMENT C3 07/02/2020 12:00:00 AM EDT eCW1 ([facility]) Name Value Range Interpretation Code Description Data Teresa rce(s) Supporting Document(s) 122 90-180 COMPLEMENT C3 eCW1 ([facility]) ID Date Data Source URINE CULTURE 06/17/2020 12:00:00 AM EDT eCW1 ([facility]) Name Value Range Interpretation Code Description Data Teresa rce(s) Supporting Document(s) URINE CULTURE eCW1 ([facility]) ID Date Data Source UA URINALYSIS 06/17/2020 12:00:00 AM EDT eCW1 ([facility]) Name Value Range Interpretation Code Description Data Teresa rce(s) Supporting Document(s) UA URINALYSIS eCW1 ([facility]) ID Date Data Source [id number] 04/30/2020 06:44:00 PM [facility] [address] [place] [address] PHONE: [phone] FAX: [phone] Name .................. : ROSALVA Soria Acct Number.................. : [id number] ROOM. ................. : TR-03 MR Number ................... : [id number] Stay type ............. : E/R Discharge Date......... ... : 04/28/20 Admit Date ......... : 04/28/20 Admit Phys .................... : [facility] Date of ....... : 1970 Family Phys ................... : [employer] Phone .................. : [phone] Age ................................ : 49 Film# .................. .:[id number] Sex ................................. : F Unsigned transcriptions are preliminary reports and do not represent a medical or legal document CHEST PORTABLE [id number] COMPLETE:04/28/20 19:12 [facility] [place] 4818 Reason(s): possible estrellita overdose PORTABLE CHEST [...] rce(s) Supporting Document(s) ID Date Data Source [id number] 04/30/2020 09:08:00 [place] [address] RESPIRATORY CARE REPORT ==== ---------NAME------- NUMBER SEX AGE ADMIT DISC. XRAY# F/C ZAN Soria [id number] F 49 04/28/20 04/28/20 [id number] X6B E/R DATE OF : 1970 M/R# [id number] #: [id number] TR-03 LOCATION: EMERGENCY DEPT EKG 12872 COMP LETE:04/29/20 06:38 ED [address] PHYSICIAN: CARI Name Value Range Interpretation Code Description Data Teresa rce(s) Supporting Document(s) ID Date Data Source [id number] 04/28/2020 04:02:00 PM [facility] 1 OrderSheet [facility] Emergency Department [address] [place] [address] Phone #: ext- [phone] 04/28/2020 16:02 Patient: [...] ;CPK STAT 16:04/28/2020 16:21 Dung, 2 OrderSheet [facility] Emergency Department [address] [place] [address] Phone #: ext- [phone] 04/28/2020 16:02 [id number] Sex: F : 1970 Age: 49y Clay [...] 19:12 Deion,Symptomatic as Clay Vale RNDefined by [facility]) ;(04/28/20) (Unknownif Frist Test)(Hospitalized) (Not) (NotResident [...] Description Priority Entered Acknowledged Initialed 3 OrderSheet [facility] Emergency Department [address] [place] [address] Phone #: ext- [phone] 04/28/2020 16:02 Patient: [...] ;NPO 16:07 04/28/2020 16:21 Sorbero, 4 OrderSheet [facility] Emergency Department [address] [place] [address] Phone #: ext- [phone] 04/28/2020 16:02 Patient: SUJEY DOTY Sex: F : 1970 Age: 49y Clay Vale R.N. ;Saline Lock 16:07 04/28/2020 16:20 Crai Razo Victoria Frank R.N. ;Accucheck 16:07 04/28/2020 16:45 Cari Levy Victoria Wanda ;Radio Tester 16:07 04/28/2020 16:25 Cam,(continuous) Clay Vale ;EKG [...] rce(s) Supporting Document(s) ID Date Data Source [id number] 04/28/2020 04:02:00 PM EST [facility] 1 Medication Reconciliation Report [facility] Emergency Department [address] [place] [address] Phone #: ext- [phone] 04/28/2020 16:02 Patient: [...] Home Medication information: 2 Medication Reconciliation Report [facility] Emergency Department [address] [place] [address] Phone #: ext- [phone] 04/28/2020 16:02 Patient: [...] rce(s) Supporting Document(s) ID Date Data Source [id number] 04/28/2020 04:02:00 PM EST [facility] 1 Medication Administration Record [facility] Emergency Department [address] [place] [address] Phone #: ext- [phone] 04/28/2020 16:02 [id number] Sex: F : 1970 Age: 49yWeight: 45.3 [...] NS IV 1000 mL Bolus: : Bolus [id number] 04/28/2020 Dose: IV Fluids mL (X1)Teresa Levy, Rate: 900 mL/hr over 1 hour(s)---- Dispensed: 1000 mL bagContinued Upon Disposition Site: #1 left EJ18:19 1PTeresa zuniga,Given DUONEB [NEB TX] DuoNeb 3 mL X2 Doses (Filtered):17:07 04/28/2020 Dose: 3 unit dose Neb TX 6 mL (3 mL X2 Doses)Lary Albarran RN----Stop18:17 1PTeresa zuniga,Start KCL [IVPB] KCl IVPB 10 meq/979yB36:41 04/28/2020 Dose: 10 meq IVPBPhTeresa shaffer, Rate: [...] rce(s) Supporting Document(s) ID Date Data Source [id number] 04/28/2020 04:02:00 PM [facility] 1 General Instructions [facility] Emergency Department [address] [place] [address] Phone #: ext [phone] 04/28/2020 16:02 Patient: SUJEY DOTY Sex: F : 1970 Age: 49yChanged mental status with confusion.Narcotic dependence (heroin) with intoxication with perceptual disturbance.Hypokalemia.(Electronically signed by Clay Vale 04/28/2020 23:52) Name Value Range Interpretation Code Description Data [facility](s) Supporting Document(s) ID Date Data Source [id number] 04/28/2020 04:02:00 PM [facility] 1 Clinical Report - Nurses [facility] Emergency Department [address] [place] [address] Phone #: ext [phone] 04/28/2020 16:02 Patient: SUJEY DOTY Sex: F : 1970 Age: 49yTRIAGE Arrived by private vehicle. Historian: patient. ( dropped off in hospital lobby. 6presents with overdose). Triage time: 16:04 04/28/2020. Acuity: LEVEL 3. Chief Complaint: DRUG OVERDOSE. Alert. This occurred today. ( used heroin today). Treatment ADDICTIONS COUNSELOR: None. --16:17 04/28/20 Juan Luis Razo R.N. [...] needed, abdominal pain. --19:42 04/28/20 Juan Luis Razo R.N. hydrOXYzine HCl Oral (Tablet 50 mg) 1 tablet, 2x a day as needed, anxiety. --19:43 04/28/20 Juan Luis Razo R.N. Ondansetron HCl Oral (Tablet 4 mg) 1 tablet, 4x a day as needed, nausea; vomiting. --19:44 04/28/20 Juan Luis Razo R.N. Promethazine HCl Oral (Tablet 25 mg) 1 tablet, q12h as needed, nausea; vomiting. --19:44 04/28/20 2 Clinical Report - Nurses [facility] Emergency Department [address] [place] [address] Phone #: ext- [phone] 04/28/2020 16:02 Patient: [...] patient in 3 Clinical Report - Nurses [facility] Emergency Department [address] [place] [address] Phone #: ext- [phone] 04/28/2020 16:02 Patient: SUJEY DOTY Sex: F [...] RR: 21. O2 saturation: 99%. --16:35 04/28/20 [facility] Tech, AMANDA Masterson Tech1 Monitoring of patient in place. EKG time: (16:43 04/28/2020). EKG was performed by a tech. Patient gowned. Reassurance given. ( pt sleeping blood sugar 89. EKG done. Seizure precautions in place). --16:41 04/28/20 Teresa Levy 4 Clinical Report - Nurses [facility] Emergency Department [address] [place] [address] Phone #: ext- [phone] 04/28/2020 16:02 Patient: [...] O2 saturation: 100%. --16:59 2/21/21 Aleja Eisenberg, Ucyk479:06 04/28/20. ( pt breathing sounds stridorous, o2 [...] O2 saturation: 92%. --19:00 04/28/20 Aleja Eisenberg, [id number] returned from [place] by stretcher with monitor, nurse and tech. --19:02 04/28/20 Lary Albarran RN 5 Clinical Report - Nurses [facility] Emergency Department [address] [place] [address] Phone #: ext- [phone] 04/28/2020 16:02 Patient: [...] Teresa Levy 18:57 04/28/20. Patient transported to [place] by stretcher with monitor, nurse and tech. --19:02 04/28/20 Lary Albarran RN 19:25 04/28/20. BP: 125/76. MAP: 92. HR: 101. RR: 18. O2 saturation: 7%. --19:26 04/28/20 [place] [employer] trades instructorAleja Angeles ER Tech1 18:08 04/28/2020 K[facility] IVPB [...] saturation: 97%. Temp: 98.5 F. --20:01 04/28/20 [facility] Tech 20:00 04/28/2020 Site #[address] upon transfer; no signs of infection or infiltration. Flushed with 10 mL 6 Clinical Report - Nurses [facility] Emergency Department [address] [place] [address] Phone #: ext- [phone] 04/28/2020 16:02 Patient: SUJEY DOTY Sex: F : 1970 Age: 49y saline; flushes easily. --20:10 04/28/20 Teresa Levy Condition at departure: unchanged and stable. Transferred to [facility]. Visit overview, summary of care (CCDA), Emtala forms and Face Sheet provided to EMS and transfer facility via paper and fax (report given to Nancy Garcia RN). Transported via ambulance by digital marketing manager and EMS with monitor, IV and mask. [...] rce(s) Supporting Document(s) ID Date Data Source [id number] 04/28/2020 04:02:00 PM EST [facility] 1 Clinical Report - Physicians/Mid Levels [facility] Emergency Department [address] [place] [address] Phone #: ext- [phone] 04/28/2020 16:02 Patient: [...] sounds. 2 Clinical Report - Physicians/Mid Levels [facility] Emergency Department [address] [place] [address] Phone #: [phone] ext- [phone] 04/28/2020 16:02 Patient: SUJEY DOTY Sex: F [...] LOT # _[id number] 02/21/21.1915.DONA. KIT EXP DATE _00-30-43 04/28/20.DONA. NORMAL RANGE IS NOT DETECTEDNEGATIVE RESULTS SHOULD BE TREATED PRESUMPTIVE AND, IF INCONSISTENT WITHCLINICAL SIGNS AND SYMPTOMS OR NECESSARY FOR PATIENT MANAGEMENT, SHOULD BETESTED WITH DIFFERENT AUTHORIZED OR CLEARED MOLECULAR TESTS. NEGATIVE RESULTSDO NOT PRECLUDE SARS-CoV-2 INFECTION AND SHOULD NOT BE USED THE SOLE BASISFOR PATIENT MANAGEMENT DECISIONS. Lactic Acid: (JANEY: 04/28/2020 18:25) ( [facility] 04/28/2020 19:09) Final results Test Result Flag Units (Reference) LACTIC ACID 2.0 MMOL/L (0.2 - 2.2) CT Head W/O Cont: (JANEY: 04/28/2020 18:37) ( [facility] 04/28/2020 19:12) In Progress CT HEAD W/O CONTRAST Reason(s): Altered Mental Status TRANSPORTATION: S IV? O2? Oxygen?(No) Room: ED CBC w Diff: (JANEY: 04/28/2020 16:18) ( [facility] 04/28/2020 16:55) Final results Test Result Flag Units (Reference) CBC W/AUTOMATED DIFF COMPLETE BLOOD COUNT WBC 15.4 H 10/uL (4.2 - 11.0) RBC 5.03 10/uL (4.20 - 5.40) HEMOGLOBIN 14.2 g/dL (12.0 - 16.0) 3 Clinical Report - Physicians/Mid Levels [facility] Emergency Department [address] [place] [address] Phone #: ext- [phone] 04/28/2020 16:02 Patient: [...] Male GFR Interprentation 20-49 yrs >60 mL/min Ivuxkr91-00 yrs >56 mL/min Normal 60- 69 yrs >49 mL/min Normal 70-79yrs>42 mL/min Normal 80 and above >35 mL/min Normal Female GFRInterpretation 20-39 yrs >60 mL/min Normal 40-49 yrs >58 mL/minNormal 50-59 yrs >51 mL/min Normal 60-69 yrs >45 mL/min Normal 4 Clinical Report - Physicians/Mid Levels [facility] Emergency Department [address] [place] [address] Phone #: ext- [phone] 04/28/2020 16:02 Patient: SUJEY DOTY Sex: F : 1970 Age: 20h65-18 yrs >39 mL/min Normal 80 and above >32 mL/min NormalTSH: (JANEY: 04/28/2020 16:18) ( [facility] 04/28/2020 17:07) Final results Test Result Flag Units (Reference) TSH 0.23 L uIU/mL (0.47 - 5.01)Drug Screen-Urine: (JANEY: 04/28/2020 19:10) ( [facility] 04/28/2020 19:30) Final results Test Result Flag [...] PRESUMPTIVE POSITIVE [facility]FIRMATION [facility]Acetaminophen Level: (JANEY: 04/28/2020 16:18) ( [facility] 04/28/2020 17:02) Final results Test Result Flag Units (Reference) ACETAMINOPHEN <5.0 UG/ML (0.0 - 30.0)Salicylate Level: (JANEY: 04/28/2020 16:18) ( [facility] 04/28/2020 17:07) Final results Test Result Flag Units (Reference) SALICYLATE <1.2 L mg/dL (2.0 - 20.0)ETOH: (JANEY: 04/28/2020 16:18) ( [facility] 04/28/2020 17:02) Final results Test Result Flag Units (Reference) ALCOHOL <10.0 MG/DL ALCOHOL % 0.01 % (0.00 - 0.01) *FOR MEDICAL PURPOSES ONLY*Urinalysis: (JANEY: 04/28/2020 19:10) ( [facility] 04/28/2020 19:21) Final results Test Result Flag Units (Reference) URINALYSIS URINALYSIS SOURCE R COLOR yellow (NORMAL: Yello CLARITY clear (NORMAL: Clear SPEC GRAVITY 1.010 (1.001 - 1.030 pH 6.5 (5 - 9) GLUCOSE NORM (NORMAL: Negat BILIRUBIN NEG (NORMAL: Negat KETONE NEG (NORMAL: Negat 5 Clinical Report - Physicians/Mid Levels [facility] Emergency Department [address] [place] [address] Phone #: ext- [phone] 04/28/2020 16:02 Patient: [...] Beta-HCG, Qual Serum: (JANEY: 04/28/2020 16:18) ( [facility] 04/28/2020 16:55) Final results Test Result Flag Units (Reference) HCG SERUM QUAL NEGATIVE (NORMAL: NEGAT HCG SERUM QL REENTER NEGATIVE (NORMAL: NEGAT { KIT LOT # [id number] ){ KIT EXP DATE 10.05.21 ){ PROCEDURAL CONTROL VALID ) Venous Blood Gas: (JANEY: 04/28/2020 16:18) ( [facility] 04/28/2020 16:53) Final results Test Result Flag [...] - 85.0) CPK: (JANEY: 04/28/2020 16:18) ( [facility] 04/28/2020 17:07) Final results Test Result Flag Units (Reference) CPK 348 H U/L (30 - 170) Chest Portable 1 View: (JANEY: 04/28/2020 16:07) ( [facility] 04/28/2020 19:12) In Progress CHEST PORTABLE Reason(s): [...] who states that she has been in [place] doing drugs,. she has a history of MRSA and she has had sepsis in the past. she is suppose to be on doxycycline. she also had endocarditis. she has not seen her in 1 week. patient she was hospitalized in [facility] for 6 Clinical Report - Physicians/Mid Levels [facility] Emergency Department [address] [place] [address] Phone #: ext- [phone] 04/28/2020 16:02 Patient: SUJEY DOTY Sex: F : 1970 Age: 49y sepsis. She has seen [facility]. 18:47 04/28/20. discussed summary from [facility] obtained she has a hx of osteomyelitis [...] urine sample I will transfer her to [facility] as her infectious disease doctor is there . we do not have ID in [place]. since patient is allergic to PN and Vancomycin , I will discuss antibiotics with hospitalist at [facility] 19:29 04/28/20. Discussed case with DR taylor hospitalist at [facility] who accepted the patient 19:46 04/28/20. spoke with Jov[facility] Delacruz who is the healthcare proxy of the patient who agreed to transfer her to [facility] COVID negative, urine drug screen positive for [...] to transfer explained to mother. Transferred to [facility]. Summary of care (CCDA) provided to [...] rce(s) Supporting Document(s) ID Date Data Source [id number] 04/28/2020 07:36:00 PM EST [facility] [address] [place] [address] ---------NAME--------- NUMBER SEX AGE ADMIT DISC. XRAY# F/C TYPE ROSALVA BUENO R [id number] F 49 04/28/20 [id number] X6B E/R DATE OF : 1970 M/R# [id number] #: [id number] TR-03 LOCATION: EMERGENCY DEPT TRANSCRIBED: 04/28/20 19:[address] HEAD W/O CONTRAST [id number] COMPLETED:04/28/20 19:12 J 4821 Reason(s): Altered Mental [...] rce(s) Supporting Document(s) ID Date Data Source [id number] 04/28/2020 07:29:00 PM [facility] Name Value Range Interpretation Code Description Data [facility] rce(s) Supporting Document(s) DRUG SCREEN URINE [facility] URINE DRUG SCREEN Amphetamine [Presence] in Urine by Screen method PRESUMP POS CATALINA L: NEGATIVE [facility] BARBITURATES NEGATIVE NORMAL: NEGATIVE [facility] BENZO NEGATIVE NORMAL: NEGATIVE [facility] COCAINE NEGATIVE NORMAL: NEGATIVE [facility] Tetrahydrocannabinol [Presence] in Urine PRESUMP POS NORMAL: NEGATIVE [facility] OPIATES PRESUMP POS NORMAL: NEGATIVE [facility] Phencyclidine [Presence] in Urine by Screen method NEGATIVE NOR MAL: NEGATIVE [facility] \\BLDo\\URINE DRUG SCR EEN INTERPRETATION\\BLDx\\ THE CUTOFFF LEVELS FOR DETECTION ARE FOLLOWS: AMPHETAMINES 1000 ng/ml BARBITUARATES 200 ng/ml BENZODIAZEPINES 100 ng/ml THC 50 ng/ml PHENCYCLIDINE 25 ng/ml OPIATES 300 ng/ml COCAINE 300 ng/ml ALL POSITIVES ARE CONSIDERED PRESUMPTIVE POSITIVE CONFIRMATION WILL BE PERFORMED AT PHYSICIAN REQUEST. ID Date Data Source [id number] 04/28/2020 07:21:00 PM [facility] Name Value Range Interpretation Code Description Data Teresa rce(s) Supporting Document(s) [facility] COL[facility] yellow NORMAL: Yellow [facility] CLARITY clear NORMAL: Clear [facility] Specific gravity of Urine by Test strip 1.010 1.001 - 1.030 [facility] pH 6.5 5 - 9 [facility] Glucose [Mass/volume] in Urine by Test strip NORM NORMAL: Negat [facility] Bilirubin.total [Presence] in Urine by Test strip NEG NORMAL: Negative [facility] Ketones [Presence] in Urine by Test strip NEG NORMAL: Negative [facility] Protein [Mass/volume] in Urine by Test strip 30 NORMAL: Negat [facility] Nitrite [Presence] in Urine by Test strip NEG NORMAL: Negative [facility] BLOOD 250 NORMAL: Negative [facility] Leukocyte esterase [Presence] in Urine by Test strip 25 CATALINA L: Negative [facility] Urobilinogen [Mass/volume] in Urine by Test strip 1 less adryan n 1.0 mg/dL [facility] MICROSCOPIC See Below [facility] ital WBC 0 - 1 NORMAL: NONE SEEN [facility] Erythrocytes [#/volume] in Urine by Test strip 3 - 5 NORMAL: NON E SEEN [facility] EPITHELIAL FEW NORMAL: NONE SEEN [facility] Bacteria [Presence] in Urine sediment by Light microscopy Tr jayde NORMAL: NONE SEEN [facility] ID Date Data Source [id number] 05/04/2020 07:00:00 AM EST [facility] [id number] Name Value Range Interpretation Code Description Data Teresa rce(s) Supporting Document(s) Bacteria identified in Blood by Culture [facility] NO GROWTH AFTER 5 DAYS ID Date Data Source [id number] 05/05/2020 02:18:00 PM [facility] Name Value Range Interpretation Code Description Data Teresa rce(s) Supporting Document(s) CULTURE BLOOD [facility] _CULTURE BLOOD_ TEST PERFORM ED AT [address] [address] CLIA# [id number] SEE SCANNED REPORT{ PRELIM ID Date Data Source [id number] 04/28/2020 07:16:00 PM EST [facility] NOT DETECTEDNOT DETECTED{ PROC EDURAL CONTROL VALID KIT LOT # _[id number] 04/28/20.DONA. KIT EXP DATE _88-57-35 04/28/20.DONA. NORMAL RANGE IS NOT DETECTEDNEGATIVE RESULTS [...] rce(s) Supporting Document(s) ID Date Data Source [id number] 04/28/2020 06:40:00 PM EST [facility] Name Value Range Interpretation Code Description Data Teresa rce(s) Supporting Document(s) COVID19 Case rprt NOT DETECTED [facility] This lab was ordered by [facility] and reported by [facility]. ID Date Data Source [id number] 05/05/2020 02:18:00 PM [facility] Name Value Range Interpretation Code Description Data Teresa rce(s) Supporting Document(s) CULTURE BLOOD [facility] _CULTURE BLOOD_ TEST PERFORM ED AT [address] [address] CLIA# [id number] SEE SCANNED REPORT{ PRELIM ID Date Data Source [id number] 04/28/2020 07:09:00 PM EST [facility] Name Value Range Interpretation Code Description Data Teresa rce(s) Supporting Document(s) Lactate [Moles/volume] in Serum or Plasma 2.0 MMOL/L 0.2 - 2.2 [facility] ID Date Data Source [id number] 05/05/2020 02:18:00 PM Health system Value Range Interpretation Code Description Data Teresa rce(s) Supporting Document(s) CULTURE BLOOD [facility] spital _CULTURE BLOOD_ [place] [address] CLIA# [id number] SEE SCANNED REPORT{ PRELIM ID Date Data Source [id number] 04/28/2020 05:07:00 PM Health system Value Range Interpretation Code Description Data Teresa rce(s) Supporting Document(s) Creatine kinase [Enzymatic activity/volume] in Serum or Plasma 3 48 U/L 30 - 170 H [facility] ID Date Data Source [id number] 04/28/2020 05:07:00 PM Health system Value Range Interpretation Code Description Data Teresa rce(s) Supporting Document(s) SALICYLATE <1.2 mg/dL 2.0 - 20.0 L [facility] ID Date Data Source [id number] 04/28/2020 05:07:00 PM Health system Value Range Interpretation Code Description Data Teresa rce(s) Supporting Document(s) Thyrotropin [Units/volume] in Serum or Plasma by Detec tion limit <= 0.05 mIU/L 0.23 uIU/mL 0.47 - 5.01 L [facility] ID Date Data Source [id number] 04/28/2020 05:07:00 [facility] Value Range Interpretation Code Description Data Teresa rce(s) Supporting Document(s) COMPREHENSIVE METABOLIC PANEL [facility] COMPREHENSIVE METABOLIC PANEL Sodium [Moles/volume] in Serum or Plasma 135 mEq/L 134 - 153 [facility] Potassium [Moles/volume] in Serum or Plasma 3.1 mEq/L 3.6 - 5.0 L [facility] Chloride [Moles/volume] in Serum or Plasma 90 mEq/L 98 - 107 L [facility] Carbon dioxide, total [Moles/volume] in Serum or Plasma 26 MEQ/L 22 - 30 [facility] Glucose [Mass/volume] in Serum or Plasma 117 MG/DL 70 - 99 H [facility] BUN 7 MG/DL 7 - 21 [facility] Creatinine [Mass/volume] in Serum or Plasma 1.0 MG/DL 0.7 - 1.5 [facility] BUN/CREAT 7 8 - [address] [facility] Protein [Mass/volume] in Serum or Plasma 6.6 G/DL 6.3 - 8.2 [facility] Albumin [Mass/volume] in Serum or Plasma 3.7 G/DL 3.9 - 5.0 L [facility] Globulin [Mass/volume] in Serum by calculation 2.9 GM/DL 2.4 - 3.2 [facility] A/G RATIO 1.3 0.8 - 2.0 [facility] Calcium [Mass/volume] in Serum or Plasma 9.6 MG/DL 8.4 - 10.2 [facility] Bilirubin.total [Mass/volume] in Serum or Plasma 0.9 MG/DL 0.2 - 1.3 [facility] Alkaline phosphatase [Enzymatic activity/volume] in Serum or Plasma 124 U/L 38 - 126 [facility] Aspartate aminotransferase [Enzymatic activity/volume] in Serum or Plasma 46 U/L 5 - 40 H [facility] Alanine aminotransferase [Enzymatic activity/volume] in Seru m or Plasma 29 U/L 7 - 56 [facility] Anion gap 3 in Serum or Plasma 19.0 mmol/L 8.0 - 16.0 H [facility] AGE [address] [facility] al NON-AA GFR >60 mL/min [facility] ital AFR AMER GFR >60 mL/min [facility] Male GFR In terprentation [...] >32 mL/min Normal ID Date Data Source [id number] 04/28/2020 05:02:00 PM [facility] Name Value Range Interpretation Code Description Data Teresa rce(s) Supporting Document(s) Ethanol [Moles/volume] in Blood <10.0 MG/DL [facility] ALCOHOL % 0.01 % 0.00 - 0.01 [facility] ital *FOR MEDICAL PURPOSES ONLY * ID Date Data Source [id number] 04/28/2020 05:02:00 PM [facility] Name Value Range Interpretation Code Description Data Teresa rce(s) Supporting Document(s) Acetaminophen [Presence] in Urine <5.0 UG/ML 0.0 - 30.0 [facility] ID Date Data Source [id number] 04/28/2020 04:53:00 PM [facility] Name Value Range Interpretation Code Description Data Teresa rce(s) Supporting Document(s) CBC W/AUTOMATED DIFF [facility] COMPLETE BLOOD COUNT Leukocytes [#/volume] in Blood by Automated count 15.4 10^3/uL 4.2 - 11.0 H [facility] Erythrocytes [#/volume] in Blood by Automated count 5.03 10^6/uL 4. 20 - 5.40 [facility] Hemoglobin [Mass/volume] in Blood 14.2 g/dL 12.0 - 16.0 [facility] Hematocrit [Volume Fraction] of Blood by Automated count 40.6 % 3 7.0 - 47.0 [facility] Erythrocyte mean corpuscular volume [Entitic volume] by Auto mated count 80.7 fL 81.0 - 101 L [facility] Erythrocyte mean corpuscular hemoglobin [Entitic mass] by Automated count 28.2 pg 27.0 - 34.0 [facility] Erythrocyte mean corpuscular hemoglobin concentration [Mass/volume] by Automated count 35.0 g/dL 31.0 - 36.0 [facility] Erythrocyte distribution width [Ratio] by Automated count 13.2 % 11.5 - 14.5 [facility] Platelets [#/volume] in Blood by Automated count 457 10^3/uL 150 - 45 0 H [facility] Platelet mean volume [Entitic volume] in Blood by Automated count 9.6 fL 7.4 - 10.4 [facility] Neutrophils/100 leukocytes in Blood by Automated count 63.3 % 37. 0 - 80.0 [facility] Lymphocytes/100 leukocytes in Blood by Manual count 23.9 % 25.0 - 40.0 L [facility] Monocytes/100 leukocytes in Blood by Automated count 10.7 % 3.0 - 8.0 H [facility] Eosinophils/100 leukocytes in Blood by Automated count 1.2 % 0.0 - 7.0 [facility] 0.6 %IG 0.3 % 0.0 - 0.0 H [facility] %NRBC 0.0 % 0.0 - 0.0 [facility] Neutrophils [#/volume] in Blood by Automated count 9.78 10^3/uL 2.00 - 6.90 H [facility] Lymphocytes [#/volume] in Blood by Automated count 3.69 10^3/uL 0.60 - 3.40 H [facility] Monocytes [#/volume] in Blood by Automated count 1.65 10^3/uL 0.00 - 0.90 H [facility] Eosinophils [#/volume] in Blood by Automated count 0.18 10^3/uL 0.00 - 0.70 [facility] Basophils [#/volume] in Blood by Automated count 0.09 10^3/uL 0.00 - 0.20 [facility] #IG 0.05 10^3/uL 0.00 - 0.10 [facility] #NRBC 0.00 10^3/uL 0.00 - 0.00 [facility] MANUAL DIFF SEE BELOW [facility] ital Segmented neutrophils/100 leukocytes in Blood by Manual count 63 % 37 - 80 [facility] BAND 0 % 0 - 5 [facility] %LYMPH 33 % 25 - 40 [facility] %MONO 3 % 3 - 8 [facility] %EOS 1 % 0 - 7 [facility] 0 RBC MORPH NOT INDICATED [facility] ID Date Data Source [id number] 04/28/2020 04:55:00 PM EST [facility] Name Value Range Interpretation Code Description Data Teresa rce(s) Supporting Document(s) HCG SERUM QUAL NEGATIVE NORMAL: NEGATIVE [facility] HCG SERUM QL REENTER NEGATIVE NORMAL: NEGATIVE [facility] { KIT LOT # [id number] ){ KIT EXP DATE 10.05.21 ){ PROCEDURAL CONTROL VALID ) ID Date Data Source [id number] 04/28/2020 04:53:00 PM [facility] Name Value Range Interpretation Code Description Data Teresa rce(s) Supporting Document(s) pH of Serum or Plasma 7.45 7.32 - 7.43 H [facility] pCO2 V 40.7 mm/HG 38.0 - 51.0 [facility] pO2 V 37.2 mm/HG 30.0 - 55.0 [facility] Bicarbonate [Moles/volume] in Venous blood 27.4 meq/L 22.0 - 29.0 [facility] TCO2 V 28.6 meq/L 22.0 - 29.0 [facility] Base excess in Blood by calculation 3.1 -2.0 - 2.0 H [facility] O2 SAT V 74.2 % 40.0 - 85.0 [facility] ID Date Data Source [id number] 05/05/2020 02:18:00 PM [facility] Name Value Range Interpretation Code Description Data Teresa rce(s) Supporting Document(s) CULTURE BLOOD [facility] spital _CULTURE BLOOD_ [place] [address] CLIA# [id number] SEE SCANNED REPORT{ PRELIM ID Date Data Source [id number] 04/25/2020 04:45:31 PM [facility] Name Value Range Interpretation Code Description Data Teresa rce(s) Supporting Document(s) Progress Note [facility] [id number] lbm [file] [id number] ID Date Data Source [id number] 03/21/2020 04:05:00 PM EST [facility] Name Value Range Interpretation Code Description Data Teresa rce(s) Supporting Document(s) SARS-CoV-2 (COVID 19) NEGATIVE - SARS-CoV-2 (COVID19) [facility] This lab was ordered by [facility] a nd reported by [facility]. ID Date Data Source [id number] 03/18/2020 02:54:12 PM EST [facility] Name Value Range Interpretation Code Description Data Teresa rce(s) Supporting Document(s) Progress Note [facility] [id number] lbm [file] [id number] ID Date Data Source HIV-1 RNA PCR QUANT [id number] (Viral Load) 03/12/2020 12:00:0 0 AM EST W1 ([facility]) Name Value Range Interpretation Code Description Data Teresa rce(s) Supporting Document(s) HIV 1 RNA [Units/volume] (viral load) in Serum or Plasma by Probe with amplification <20 . [facility] ([facility]) ID Date Data Source [id number] LACTATE DEHYDROGENASE 03/12/2020 12:00:00 AM EST eCW1 ([facility]) Name Value Range Interpretation Code Description Data Teresa rce(s) Supporting Document(s) [id number] [facility] ([facility]) ID Date Data Source [id number] 03/12/2020 12:00:00 AM EST eCW1 ([facility]) Name Value Range Interpretation Code Description Data Teresa rce(s) Supporting Document(s) eCW1 ([facility]) ID Date Data Source [id number] 03/05/2020 07:05:00 PM EST [facility] Name Value Range Interpretation Code Description Data Teresa rce(s) Supporting Document(s) Please note [facility] The date recorded on the requisition ind icates the sample(s) receivedwere greater than 72 hours old upon arrival in our laboratory. ID Date Data Source [id number] 03/09/2020 05:05:00 PM EST [facility] Name Value Range Interpretation Code Description Data Teresa rce(s) Supporting Document(s) HIV 1 Ab Negative Negative [facility] HIV 2 Ab Negative Negative [facility] Interpretation: Negative [facility] See RNA Reflex. ID Date Data Source [id number] 03/09/2020 05:05:00 PM EST [facility] Name Value Range Interpretation Code Description Data Teresa rce(s) Supporting Document(s) HIV 1 RNA Qualitative Negative Negative [facility] Negative for HIV-1 RNA Final Interpretation [facility] HIV antibodies were not confirmed and HI V 1 RNA was not detected. Nolaboratory evidence of HIV 1 infection. Follow-up testing for HIV 2should be performed if clinically indicated. ID Date Data Source [id number] 02/27/2020 02:46:00 PM EST [facility] Name Value Range Interpretation Code Description Data Teresa rce(s) Supporting Document(s) SARS coronavirus 2 RNA [Presence] in Res piratory specimen by DAVE with probe detection [facility] This lab was ordered by [facility] a nd reported by [facility]. ID Date Data Source [id number] 02/25/2020 06:26:00 PM EST [facility] Name Value Range Interpretation Code Description Data Teresa rce(s) Supporting Document(s) Bacteria identified in Blood by Culture [facility] NO GROWTH AFTER 5 DAYS ID Date Data Source [id number] 03/02/2020 06:43:00 AM EST [facility] Name Value Range Interpretation Code Description Data Teresa rce(s) Supporting Document(s) [facility] BLOOD CULTURE [facility] _CULTURE BLOOD_ [place] [address] CLIA# [id number] SEE SCANNED REPORT{ PRELIM ID Date Data Source [id number] 02/22/2020 06:18:00 AM [facility] Name Value Range Interpretation Code Description Data Teresa rce(s) Supporting Document(s) Hepatitis C virus Ab Signal/Cutoff in Serum or Plasma by Immunoassay 10.4 s/coratio 0.0-0.9 H [facility] Hepatitis C virus RNA [Units/volume] (vi ral load) in Serum or Plasma by Probe and target amplification method WILL FOLLOW [facility] Hepatitis C virus RNA [log units/volume] (viral load) in Serum or Plasma by Probe and target amplification method WILL FOLLOW [facility] Reference lab test reference range COMMENT [facility] The quantitative range of this assay is 15 IU/mL to 100 million IU/mL. Diagnostic impression [Interpretation] in Unspecified specimen Narrative WILL FOLLOW [facility] ID Date Data Source [id number] 02/20/2020 12:30:00 PM [facility] Name Value Range Interpretation Code Description Data Teresa rce(s) Supporting Document(s) C reactive protein [Mass/volume] in Serum or Plasma by High sensitivity method 76.57 MG/L 1.00 - 3.00 H [facility]/S HS-CRP CUT-OFF: RELATIVE RISK: <1.0 mg/L Low 1.0 - 3.0 mg/L Average >3.0 mg/L High Optimally, the average of HS-CRP results repeated two weeks apart should be used for risk assessment. ID Date Data Source [id number] 02/20/2020 12:30:00 PM [facility] Name Value Range Interpretation Code Description Data Teresa rce(s) Supporting Document(s) Iron [Mass/volume] in Serum or Plasma 47 UG/DL 42 - 135 [facility] Iron binding capacity.unsaturated [Mass/volume] in Serum or Plasma 127 UG/DL 112 - 347 [facility] Iron binding capacity [Mass/volume] in Serum or Plasma 174 ug/dL 250 - 450 L [facility] Iron saturation [Mass Fraction] in Serum or Plasma 27 % [facility] ID Date Data Source [id number] 02/20/2020 12:30:00 PM [facility] Name Value Range Interpretation Code Description Data Teresa rce(s) Supporting Document(s) COMPREHENSIVE METABOLIC PANEL [facility] COMPREHENSIVE METABOLIC PANEL Sodium [Moles/volume] in Serum or Plasma 137 mEq/L 134 - 153 [facility] Potassium [Moles/volume] in Serum or Plasma 3.9 mEq/L 3.6 - 5.0 [facility] Chloride [Moles/volume] in Serum or Plasma 102 mEq/L 98 - 107 [facility] Carbon dioxide, total [Moles/volume] in Serum or Plasma 29 MEQ/L 22 - 30 [facility] Glucose [Mass/volume] in Serum or Plasma 114 MG/DL 65 - 110 H [facility] BUN 13 MG/DL 7 - 21 [facility] Creatinine [Mass/volume] in Serum or Plasma 0.7 MG/DL 0.7 - 1.5 [facility] BUN/CREAT 19 8 - 27 [facility] Protein [Mass/volume] in Serum or Plasma 6.8 G/DL 6.3 - 8.2 [facility] Albumin [Mass/volume] in Serum or Plasma 3.5 G/DL 3.9 - 5.0 L [facility] Globulin [Mass/volume] in Serum by calculation 3.3 GM/DL 2.4 - 3.2 H [facility] A/G RATIO 1.1 0.8 - 2.0 [facility] Calcium [Mass/volume] in Serum or Plasma 8.5 MG/DL 8.4 - 10.2 [facility] Bilirubin.total [Mass/volume] in Serum or Plasma <0.7 MG/DL 0.2 - 1.3 [facility] Alkaline phosphatase [Enzymatic activity/volume] in Serum or Plasma 219 U/L 38 - 126 H [facility] Aspartate aminotransferase [Enzymatic activity/volume] in Serum or Plasma 17 U/L 5 - 40 [facility] Alanine aminotransferase [Enzymatic activity/volume] in Seru m or Plasma 27 U/L 7 - 56 [facility] Anion gap 3 in Serum or Plasma 6.0 mmol/L 8.0 - 16.0 L [facility] AGE [address] [facility] al NON-AA GFR >60 mL/min [facility] ital AFR AMER GFR >60 mL/min [facility] Male GFR In terprentation [...] >32 mL/min Normal ID Date Data Source [id number] 02/20/2020 11:21:00 AM EST [facility] Name Value Range Interpretation Code Description Data Teresa rce(s) Supporting Document(s) Erythrocyte sedimentation rate by Westergren method 23 mm/hr 0 - 30 [facility] SED RATE REENTER 23 [facility] ID Date Data Source [id number] 02/20/2020 11:04:00 AM EST [facility] Name Value Range Interpretation Code Description Data Teresa rce(s) Supporting Document(s) CBC W/AUTOMATED DIFF [facility] COMPLETE BLOOD COUNT Leukocytes [#/volume] in Blood by Automated count 10.4 10^3/uL 4.2 - 11.0 [facility] Erythrocytes [#/volume] in Blood by Automated count 4.71 10^6/uL 4. 20 - 5.40 [facility] Hemoglobin [Mass/volume] in Blood 13.1 g/dL 12.0 - 16.0 [facility] Hematocrit [Volume Fraction] of Blood by Automated count 39.3 % 3 7.0 - 47.0 [facility] Erythrocyte mean corpuscular volume [Entitic volume] by Auto mated count 83.4 fL 81.0 - 101 [facility] Erythrocyte mean corpuscular hemoglobin [Entitic mass] by Automated count 27.8 pg 27.0 - 34.0 [facility] Erythrocyte mean corpuscular hemoglobin concentration [Mass/volume] by Automated count 33.3 g/dL 31.0 - 36.0 [facility] Erythrocyte distribution width [Ratio] by Automated count 18.0 % 11.5 - 14.5 H [facility] Platelets [#/volume] in Blood by Automated count 317 10^3/uL 150 - 45 0 [facility] Platelet mean volume [Entitic volume] in Blood by Automated count 9.1 fL 7.4 - 10.4 [facility] Neutrophils/100 leukocytes in Blood by Automated count 63.7 % 37. 0 - 80.0 [facility] Lymphocytes/100 leukocytes in Blood by Manual count 27.2 % 25.0 - 40.0 [facility] Monocytes/100 leukocytes in Blood by Automated count 4.9 % 3.0 - 8.0 [facility] Eosinophils/100 leukocytes in Blood by Automated count 3.2 % 0.0 - 7.0 [facility] Basophils/100 leukocytes in Blood by Automated count 0.5 % 0.0 - 2.5 [facility] %IG 0.5 % 0.0 - 0.0 [facility] %NRBC 0.0 % 0.0 - 0.0 [facility] Neutrophils [#/volume] in Blood by Automated count 6.63 10^3/uL 2.00 - 6.90 [facility] Lymphocytes [#/volume] in Blood by Automated count 2.83 10^3/uL 0.60 - 3.40 [facility] Monocytes [#/volume] in Blood by Automated count 0.51 10^3/uL 0.00 - 0.90 [facility] Eosinophils [#/volume] in Blood by Automated count 0.33 10^3/uL 0.00 - 0.70 [facility] Basophils [#/volume] in Blood by Automated count 0.05 10^3/uL 0.00 - 0.20 [facility] #IG 0.05 10^3/uL 0.00 - 0.10 [facility] #NRBC 0.00 10^3/uL 0.00 - 0.00 [facility] MANUAL DIFF NOT INDICATED [facility] RBC MORPH NOT INDICATED [facility] ID Date Data Source IRON (FE) 02/20/2020 12:00:00 AM EST eCW1 ([facility]) Name Value Range Interpretation Code Description Data Teresa rce(s) Supporting Document(s) IRON eCW1 ([facility]) ID Date Data Source [id number] 02/06/2020 01:45:00 PM EST [facility] Name Value Range Interpretation Code Description Data Teresa rce(s) Supporting Document(s) SARS coronavirus 2 RNA [facility] This lab was ordered by [facility] and reported by [facility]. ID Date Data Source [id number] 01/10/2020 04:54:46 PM EST [facility] INFORMATIONPatient MRN Name Date of Age Gend*PT [id number] Sujey Doty 1970 49 years F HOPPT Location Admission Date/Time Visit ID Attending [id number] 01/10/20 0749 --- --- EPI ID CSN Admitting Provider [id number] Demetrice Gilliam MD([id number])Transesophageal ECHO ReportPatient Name: Sujey Doty of : [...] parts of this document, were dictated using [employer] software. Areasonable attempt at proofreading has been made to minimize errors. Please callwith any questions or corrections. Name Value Range Interpretation Code Description Data Teresa rce(s) Supporting Document(s) ID Date Data Source [id number] 01/10/2020 04:49:[address] [facility] Name Value Range Interpretation Code Description Data Teresa rce(s) Supporting Document(s) &PDF [facility] IVQDYx8bBySTIuYe48/GSBreCYLns7KyOLjsDTv1QUohFRWpQ1FdgLixRP3KMqwCOagMQQSBK1GGPkDk hdG [file] 0gDQo+Fe5Vn3AtugF5krTaZNmdAdOsOW9MOLEDE7QYNu== ID Date Data Source [id number] 01/10/2020 10:53:[address] [facility] Name Value Range Interpretation Code Description Data Teresa rce(s) Supporting Document(s) &PDF [facility] VTDBDz9oApVJQsXr02/DXJboCWLmf7ChSVprOWl3LGtkYPUjN6FtzTesQU0ZTgrDFhyKBXUSV3VBPuHq hdG [file] ICAgICAgICAgICAgICAgICAgICAgICAgICAgICAgICAgICAgICAgICAgICAgICAgICAgICAgICAgICAg ETMzEMKtKIBaBLKeNOBrICZvKGShQKVxEDHiYNQfEHDdHSReKB1AFLXbPBNxGQCqXGTuCMNzVHRzOBCw ICAgICAgICAgICAgICAgICAgICAgICAgICAgICAgIC WuRMLuGUHgSRPcBCGcIMZqAHWpACGcGDRuCDEmYHKcLLQlLFRnWVJwWMIkLHFvNY1SKRImOBZrRXPpVO AgICAgICAgICAgICAgICAgICAgICAgICAgICAgICAgICAgICAgICAgICAgICAgICAgICAgICAgICAgIC PlOXEbSMPeQALpWDHlANGwABJyZMCoQQDwDVClTX1C ICAgICAgICAgICAgICAgICAgICAgICAgICAgICAgICAgICAgICAgICAgICAgICAgICAgICAgICAgICAg GNRmHSBbCWKhXWNrTYBzYBYiOGYeUABgZTDcBQHbBLYeDMJvQBBdPO2GNVLcSJGlOOIdDVImENWqPWZm ICAgICAgICAgICAgICAgICAgICAgICAgICAgICAgIC NzYAGzPJVnPZFfIYBbEPDeYZFnYVQrCIAfWRSeZTAhJOIyFVTmBLQvZZOhGSErSZMtKV9NUKAqIXWwGE AgICAgICAgICAgICAgICAgICAgICAgICAgICAgICAgICAgICAgICAgICAgICAgICAgICAgICAgICAgIC AgICAgICAgICAgICAgICAgICAgICAgICAgICAgICAg HZ5BCQKsKFSiHONwMKIpFMMaXIBmBTFaSMKiQDGzGPFrYZNmZOImBSKuKGFhNVEaNDIqUVOgNQVdEMJs JCIjMJNpABHmBFGuDYWpYXEdGLNgWUUoYPViPGQlAKEkEALcAMHfGVHpIQ4MZAHkAMMcFCYqYPCyQECy ICAgICAgICAgICAgICAgICAgICAgICAgICAgICAgIC FaDJSpTJWuIPPmIEEsMNUpKDLvMWQfTPOkQTOzLCWoIYGkYYVnPFEbHTDeCTIlVXUtVYPoXX4TDWSvRN AgICAgICAgICAgICAgICAgICAgICAgICAgICAgICAgICAgICAgICAgICAgICAgICAgICAgICAgICAgIC AgICAgICAgICAgICAgICAgICAgICAgICAgICAgICAg HMRaRJ0HKKIuBZIwSGXoWLNuDZRfFPOmVPFvLAHmUULiCXIqNXJlLYPpZVKhOSReXMVxVSKtSDKtVHOg RDQxNYKeOUJqBTTqEBCvLDHyTHIgJDAxUORzCVPbPPOhACXpFJKpSJIjIOKoFP0BVL55uQCiw5H1AUYa BC3hixw/Mc2LLQpikjGvoVEnUY2GXwZfEH3jxb5GFc VeOE7lpq5VADtJPhUeF1L4jHEvAKLkFBJLBnFaX78uESmuPv73IMebOGVkZiIqXHj8Xs6UAnGaJ7cjIM TrKuX7BGGiDaX6TEBjNrBbNChxXL0Jr9GbdFEsAHc+Xq3JDR2nv5TwYDbzTiIfQD2bef9QAFuOYyOdC0 F6pBSmU6A2DQinVc6YHLKcHSGmUgQqFURVHFqmBR4R PD7ejjW6QT2LfOMsZCRtAMGjnVYpTMl7A57zkZSaUCtoGM4PQPJ+Von+Zi1UNMXmCZGqCTUhLiSeSAXA UiZfR26djEIpKVElMMP5CEJhCf6MZISeJ3PdrsYjeVcoqjLfCSRtQSDQRL9UXWnfijAttSMgbYbjQR82 kIprYS3LJt0JZoDzEM3enr0TmIMvCm8CUBTpIr7PBL DuPVYbPCBjVZY0EVJyTtGyMDepLYYoMVHmWKY6TZOqWUInJM2ZXnMjRGIwRuU1VkblNCWmVUHgqx3YKN YqLUNrRVIsFuPcYYGeSWLrOOoqTZHtFHPoQRq4HIPgBQVvNA7WJvHuDQCuEDSaBaLlSKRzUGUldg4ZJW RgUXMfAzPtNlLsFGLePCMiVUzkXMIxNXH4BCSwWGCc SUDdPE2KWoJfJHHrIAL8VlEeWAWtJYXzjj4LBPZpEGAoEXC8ONJfVKYkMNAlKIxvLXCwHZF8GytkCENq AXXlDO6IYtAsFBGbROA5PwAzCULpCQHzfq1LKIRaWSTdPwttOXGmSORpRYCpBKjsZEYmOWA2ZTXjUYQb FPSmEK6QTkDwUGOyMYhjBHBrMUXeXRVerp1JPUGsRU MxYpW9KwDsXGBbLIVaCAmhQWUaSNZuAWu4BAHkVEDjLI4AGxNzUJXvMNO5EIIjIEKmHHNdhx1AHZFlVH NgNfvlInZiHAZxMRUtDQgaEAUmQZMuSJvqPHHbPNWuXN5FBcZoTCMfVTItIxFcJTDlKMUvlt9ETJYzNL IrPZLiZICiMLKvPLFyQIbgUQJdXLR9NcjoIORcQLKo RI5GLpXgNXEpPZx0PvxjIPOpLZHomy6EGVGkZINmHkhnGXBjBYZnAMLbMXjfNGKgGMR0HeCeISUyJIMa ZR8OZjUoFHVhLjE0BEYeNVOqTJEspg8HxFDhoQqejp8EPQgOGb9YxWifVFJ4YJpiPz9ntUAgHiTmABNS Ap1QmpGbNSKxDNOTJNgrMKHcYKDgJUN7NTFpRBU4KR bwYnG4ZNy9CJU7EVI3A1UqKkZdHiI3YMHfKAabJGJ2Jhi2HRUzHOt6KpAhAKreIGU2ICViWZH+IF0gDQ o+Rp1Et6WywiO1lwTxCNhuLQe3Pi9WPLIZG8WWKs== ID Date Data Source [id number] 01/10/2020 09:25:19 AM EST [facility] Name Value Range Interpretation Code Description Data Teresa rce(s) Supporting Document(s) POC SODIUM 137 MMOL/L (136-145) [facility] PERFORMED BY [facility] ID Date Data Source [id number] 01/10/2020 09:25:19 AM EST [facility] Name Value Range Interpretation Code Description Data Teresa rce(s) Supporting Document(s) POC POTASSIUM 4.8 MMOL/L (3.6-5.2) [facility] PERFORMED BY [facility] ID Date Data Source [id number] 01/10/2020 09:25:19 AM EST [facility] Name Value Range Interpretation Code Description Data Teresa rce(s) Supporting Document(s) POC GLU 93 MG/DL (70-99) [facility] PERFORMED BY [facility] ID Date Data Source [id number] 01/10/2020 09:25:19 AM EST [facility] Name Value Range Interpretation Code Description Data Teresa rce(s) Supporting Document(s) POC IONIZED CALCIUM 4.6 MG/DL (4.6-5.3) [facility] ID Date Data Source [id number] 01/10/2020 09:25:19 AM EST [facility] Name Value Range Interpretation Code Description Data Teresa rce(s) Supporting Document(s) POC HCT 37 % (36.0-47.0) [facility] PERFORMED BY [facility] ID Date Data Source [id number] 01/09/2020 11:55:00 AM EST [facility] Name Value Range Interpretation Code Description Data Teresa rce(s) Supporting Document(s) SARS coronavirus 2 RNA [Presence] in Res piratory specimen by DAVE with probe detection [facility] This lab was reported by [facility]. ID Date Data Source [id number] 01/09/2020 03:09:30 PM EST [facility] Name Value Range Interpretation Code Description Data Teresa rce(s) Supporting Document(s) SPECIMEN DESCRIPTION [facility] COVID19 RESULT (NDET) [facility] THIS ASSAY AMPLIFIES AND DETECTSTHE TARG ET RNA USING REAL-TIME PCR.NEGATIVE 2019_NCOV RT-PCR RESULTS DONOT PRECLUDE 2019_NCOV INFECTION ANDSHOULD NOT BE USED THE SOLE BASISFOR PATIENT MANAGEMENT DECISIONS. COMMENT [facility] [place] j[place] UNDER AN EMERGENCY USE AUTHORIZATION(EUA ) FOR THE DETECTION AND/OR DIAGNOSISOF THE VIRUS THAT CAUSES COVID-19.EMAILED TO [facility] IC AT [id number] RM [id number]. FIRST TEST [facility] [place] [facility] [place] [facility] [place] [facility] [place] SYMPTOMATIC [facility] [place] of [place] DATE OF SYMPT ONSET [facility] [place] HOSPITALIZED [facility] [place] of [facility] ICU [facility] [place] CONGREGATE CARE SET Lab [place] [facility] [place] [facility] [place] ID Date Data Source PROLACTIN 01/03/2020 09:29:59 AM EDT eCW1 ([facility]) Name Value Range Interpretation Code Description Data Teresa rce(s) Supporting Document(s) 15.9 PROLACTIN eCW1 ([facility]) Procedure Social History Code Duration Value Status Description Data Source(s ) Smoking 01/07/2021 12:00:00 AM EDT Current Smoker completed Curre nt Smoker eCW1 ([facility]) Smoking 01/07/2021 12:00:00 AM EDT Current Smoker completed Curre nt Smoker eCW1 ([facility]ly [facility]) Smoking 01/07/2021 12:00:00 AM EDT Current Smoker completed Curre nt Smoker eCW1 ([facility]ly [facility]) Smoking 01/07/2021 12:00:00 AM EDT Current Smoker completed Curre nt Smoker eCW1 ([facility]) Smoking 01/07/2021 12:00:00 AM EDT Current Smoker completed Curre nt Smoker eCW1 ([facility]) Smoking 01/07/2021 12:00:00 AM EDT Current Smoker completed Curre nt Smoker eCW1 ([facility]) Smoking 12/22/2020 12:00:00 AM EDT Current Smoker completed Curre nt Smoker eCW1 ([facility]) Smoking 12/22/2020 12:00:00 AM EDT Current Smoker completed Curre nt Smoker eCW1 ([facility]) Smoking 12/22/2020 12:00:00 AM EDT Current Smoker completed Curre nt Smoker eCW1 ([facility]) Smoking 11/21/2020 12:00:00 AM EDT Current Smoker completed Curre nt Smoker eCW1 ([facility]) Smoking 11/21/2020 12:00:00 AM EDT Current Smoker completed Curre nt Smoker eCW1 ([facility]) Smoking 11/21/2020 12:00:00 AM EDT Current Smoker completed Curre nt Smoker eCW1 ([facility]) Smoking 11/21/2020 12:00:00 AM EDT Current Smoker completed Curre nt Smoker eCW1 ([facility]) Smoking 11/21/2020 12:00:00 AM EDT Current Smoker completed Curre nt Smoker eCW1 ([facility]) Smoking 11/21/2020 12:00:00 AM EDT Current Smoker completed Curre nt Smoker eCW1 ([facility]) Smoking 11/21/2020 12:00:00 AM EDT Current Smoker completed Curre nt Smoker eCW1 ([facility]) Smoking 11/21/2020 12:00:00 AM EDT Current Smoker completed Curre nt Smoker eCW1 ([facility]) Smoking 11/21/2020 12:00:00 AM EDT Current Smoker completed Curre nt Smoker eCW1 ([facility]) Smoking 11/21/2020 12:00:00 AM EDT Current Smoker completed Curre nt Smoker eCW1 ([facility]) Smoking 11/21/2020 12:00:00 AM EDT Current Smoker completed Curre nt Smoker eCW1 ([facility]) Smoking 11/21/2020 12:00:00 AM EDT Current Smoker completed Curre nt Smoker eCW1 ([facility]) Smoking 11/21/2020 12:00:00 AM EDT Current Smoker completed Curre nt Smoker eCW1 ([facility]) Smoking 10/24/2020 12:00:00 AM EDT Current Smoker completed Curre nt Smoker eCW1 ([facility]) Smoking 10/24/2020 12:00:00 AM EDT Current Smoker completed Curre nt Smoker eCW1 ([facility]) Smoking 10/24/2020 12:00:00 AM EDT Current Smoker completed Curre nt Smoker eCW1 ([facility]) Smoking 10/24/2020 12:00:00 AM EDT Current Smoker completed Curre nt Smoker eCW1 ([facility]) Smoking 10/24/2020 12:00:00 AM EDT Current Smoker completed Curre nt Smoker eCW1 ([facility]) Smoking 10/24/2020 12:00:00 AM EDT Current Smoker completed Curre nt Smoker eCW1 ([facility]) Smoking 10/24/2020 12:00:00 AM EDT Current Smoker completed Curre nt Smoker eCW1 ([facility]) Smoking 10/24/2020 12:00:00 AM EDT Current Smoker completed Curre nt Smoker eCW1 ([facility]) Smoking 10/24/2020 12:00:00 AM EDT Current Smoker completed Curre nt Smoker eCW1 ([facility]) Smoking 09/19/2020 12:00:00 AM EDT Current Smoker completed Curre nt Smoker eCW1 ([facility]) Smoking 09/19/2020 12:00:00 AM EDT Current Smoker completed Curre nt Smoker eCW1 ([facility]) Smoking 09/19/2020 12:00:00 AM EDT Current Smoker completed Curre nt Smoker eCW1 ([facility]) Smoking 09/19/2020 12:00:00 AM EDT Current Smoker completed Curre nt Smoker eCW1 ([facility]) Smoking 09/19/2020 12:00:00 AM EDT Current Smoker completed Curre nt Smoker eCW1 ([facility]) Smoking 09/19/2020 12:00:00 AM EDT Current Smoker completed Curre nt Smoker eCW1 ([facility]) Smoking 09/19/2020 12:00:00 AM EDT Current Smoker completed Curre nt Smoker eCW1 ([facility]) Smoking 09/19/2020 12:00:00 AM EDT Current Smoker completed Curre nt Smoker eCW1 ([facility]) Smoking 09/19/2020 12:00:00 AM EDT Current Smoker completed Curre nt Smoker eCW1 ([facility]) Smoking 09/11/2020 12:00:00 AM EDT Current Smoker completed Curre nt Smoker eCW1 ([facility]) Smoking 09/11/2020 12:00:00 AM EDT Current Smoker completed Curre nt Smoker eCW1 ([facility]) Smoking 09/03/2020 12:00:00 AM EDT Current Smoker completed Curre nt Smoker eCW1 ([facility]) Smoking 08/27/2020 12:00:00 AM EDT Current Smoker completed Curre nt Smoker eCW1 ([facility]) Smoking 08/27/2020 12:00:00 AM EDT Current Smoker completed Curre nt Smoker eCW1 ([facility]) Smoking 08/21/2020 12:00:00 AM EDT Current Smoker completed Curre nt Smoker eCW1 ([facility]) Smoking 08/21/2020 12:00:00 AM EDT Current Smoker completed Curre nt Smoker eCW1 ([facility]) Smoking 08/21/2020 12:00:00 AM EDT Current Smoker completed Curre nt Smoker eCW1 ([facility]) Smoking 08/20/2020 12:00:00 AM EDT Current Smoker completed Curre nt Smoker eCW1 ([facility]) Smoking 08/07/2020 12:00:00 AM EDT Current Smoker completed Curre nt Smoker eCW1 ([facility]) Smoking 08/07/2020 12:00:00 AM EDT Current Smoker completed Curre nt Smoker eCW1 ([facility]) Smoking 08/07/2020 12:00:00 AM EDT Current Smoker completed Curre nt Smoker eCW1 ([facility]) Smoking 07/25/2020 12:00:00 AM EDT Current Smoker completed Curre nt Smoker eCW1 ([facility]) Smoking 07/25/2020 12:00:00 AM EDT Current Smoker completed Curre nt Smoker eCW1 ([facility]) Smoking 07/25/2020 12:00:00 AM EDT Current Smoker completed Curre nt Smoker eCW1 ([facility]) Smoking 07/25/2020 12:00:00 AM EDT Current Smoker completed Curre nt Smoker eCW1 ([facility]) Smoking 07/15/2020 12:00:00 AM EDT Current Smoker completed Curre nt Smoker eCW1 ([facility]) Smoking 07/15/2020 12:00:00 AM EDT Current Smoker completed Curre nt Smoker eCW1 ([facility]) Smoking 07/15/2020 12:00:00 AM EDT Current Smoker completed Curre nt Smoker eCW1 ([facility]) Smoking 07/02/2020 12:00:00 AM EDT Current Smoker completed Curre nt Smoker eCW1 ([facility]) Smoking 07/02/2020 12:00:00 AM EDT Current Smoker completed Curre nt Smoker eCW1 ([facility]) Smoking 07/02/2020 12:00:00 AM EDT Current Smoker completed Curre nt Smoker eCW1 ([facility]) Smoking 07/02/2020 12:00:00 AM EDT Current Smoker completed Curre nt Smoker eCW1 ([facility]) Smoking 07/02/2020 12:00:00 AM EDT Current Smoker completed Curre nt Smoker eCW1 ([facility]) Smoking 07/02/2020 12:00:00 AM EDT Current Smoker completed Curre nt Smoker eCW1 ([facility]) Smoking 07/02/2020 12:00:00 AM EDT Current Smoker completed Curre nt Smoker eCW1 ([facility]) Smoking 07/02/2020 12:00:00 AM EDT Current Smoker completed Curre nt Smoker eCW1 ([facility]) Smoking 06/26/2020 12:00:00 AM EDT Current Smoker completed Curre nt Smoker eCW1 ([facility]) Smoking 06/26/2020 12:00:00 AM EDT Current Smoker completed Curre nt Smoker eCW1 ([facility]) Smoking 06/17/2020 12:00:00 AM EDT Current Smoker completed Curre nt Smoker eCW1 ([facility]) Smoking 06/17/2020 12:00:00 AM EDT Current Smoker completed Curre nt Smoker eCW1 ([facility]) Smoking 04/22/2020 12:00:00 AM EST Current Smoker completed Curre nt Smoker eCW1 ([facility]) Smoking 04/22/2020 12:00:00 AM EST Current Smoker completed Curre nt Smoker eCW1 ([facility]) Smoking 04/22/2020 12:00:00 AM EST Current Smoker completed Curre nt Smoker eCW1 ([facility]) Smoking 04/22/2020 12:00:00 AM EST Current Smoker completed Curre nt Smoker eCW1 ([facility]) Smoking 04/22/2020 12:00:00 AM EST Current Smoker completed Curre nt Smoker eCW1 ([facility]) Smoking 03/21/2020 12:00:00 AM EST Current Smoker completed Curre nt Smoker eCW1 ([facility]) Smoking 03/21/2020 12:00:00 AM EST Current Smoker completed Curre nt Smoker eCW1 ([facility]) Smoking 03/21/2020 12:00:00 AM EST Current Smoker completed Curre nt Smoker eCW1 ([facility]) Smoking 03/12/2020 12:00:00 AM EST Current Smoker completed Curre nt Smoker eCW1 ([facility]) Smoking 03/12/2020 12:00:00 AM EST Current Smoker completed Curre nt Smoker eCW1 ([facility]) Smoking 03/12/2020 12:00:00 AM EST Current Smoker completed Curre nt Smoker eCW1 ([facility]) Smoking 03/12/2020 12:00:00 AM EST Current Smoker completed Curre nt Smoker eCW1 ([facility]) Smoking 02/27/2020 12:00:00 AM EST Current Smoker completed Curre nt Smoker eCW1 ([facility]) Smoking 02/27/2020 12:00:00 AM EST Current Smoker completed Curre nt Smoker eCW1 ([facility]) Smoking 02/27/2020 12:00:00 AM EST Current Smoker completed Curre nt Smoker eCW1 ([facility]) Smoking 02/20/2020 12:00:00 AM EST Current Smoker completed Curre nt Smoker eCW1 ([facility]) Smoking 02/06/2020 12:00:00 AM EST Current Smoker completed Curre nt Smoker eCW1 ([facility]) Smoking 02/06/2020 12:00:00 AM EST Current Smoker completed Curre nt Smoker eCW1 ([facility]) Smoking 02/06/2020 12:00:00 AM EST Current Smoker completed Curre nt Smoker eCW1 ([facility]) Alcohol intake 01/10/2020 12:00:00 AM EST Not Currently completed [facility] Smoking 01/10/2020 12:00:00 AM EST Current every day smoker co mpleted Current every day smoker [facility] Smoking 01/10/2020 12:00:00 AM EST Current Smoker completed Curre nt Smoker eCW1 ([facility]) Smoking 01/02/2020 12:00:00 AM EDT Current Smoker completed Curre nt Smoker eCW1 ([facility]) Smoking 12/21/2019 12:00:00 AM EDT Current Smoker completed Curre nt Smoker eCW1 ([facility]) Smoking 12/21/2019 12:00:00 AM EDT Current Smoker completed Curre nt Smoker eCW1 ([facility]) Smoking 12/21/2019 12:00:00 AM EDT Current Smoker completed Curre nt Smoker eCW1 ([facility]) Smoking 12/21/2019 12:00:00 AM EDT Current Smoker completed Curre nt Smoker eCW1 ([facility]) Smoking 12/21/2019 12:00:00 AM EDT Current Smoker completed Curre nt Smoker eCW1 ([facility]) Smoking 12/21/2019 12:00:00 AM EDT Current Smoker completed Curre nt Smoker eCW1 ([facility]) Smoking 12/21/2019 12:00:00 AM EDT Current Smoker completed Curre nt Smoker eCW1 ([facility]ly [facility]) Vital Signs ID Date Data Source UNK Name Value Range Interpretation Code Description Data Source(s) Body weight 95 [lb_av] 95 [lb_av] eCW1 ([facility]) Body weight 43.09 kg 43.09 kg eCW1 ([facility]) Body height 59 [in_i] 59 [in_i] eCW1 ([facility]) Body mass index (BMI) [Ratio] 19.19 kg/m2 19.19 kg/m2 eCW1 ([facility]) Heart rate 91 /min 91 /min eCW1 ([facility]) Respiratory rate 18 /min 18 /min eCW1 ([facility]) Body temperature 98.3 [degF] 98.3 [degF] eCW1 ( [facility]) Systolic blood pressure 104 mm[Hg] 104 mm[Hg] e CW1 ([facility]) Diastolic blood pressure 62 mm[Hg] 62 mm[Hg] eCW1 ([facility]) Respiratory rate 16 /min 16 /min eCW1 ([facility]) Body temperature 97.8 [degF] 97.8 [degF] eCW1 ( [facility]) Systolic blood pressure 118 mm[Hg] 118 mm[Hg] e CW1 ([facility]) Diastolic blood pressure 68 mm[Hg] 68 mm[Hg] eCW1 ([facility]) Body weight 93 [lb_av] 93 [lb_av] eCW1 ([facility]) Body weight 42.18 kg 42.18 kg eCW1 ([facility]) Body height 59 [in_i] 59 [in_i] eCW1 ([facility]) Body mass index (BMI) [Ratio] 18.78 kg/m2 18.78 kg/m2 eCW1 ([facility]) Heart rate 112 /min 112 /min eCW1 ([facility]) Respiratory rate 18 /min 18 /min eCW1 ([facility]) Body temperature 98.2 [degF] 98.2 [degF] eCW1 ( [facility]) Systolic blood pressure 110 mm[Hg] 110 mm[Hg] e CW1 ([facility]) Diastolic blood pressure 64 mm[Hg] 64 mm[Hg] eCW1 ([facility]) Body weight 44.91 kg 44.91 kg eCW1 ([facility]) Body height 59 [in_i] 59 [in_i] eCW1 ([facility]) Body mass index (BMI) [Ratio] 19.99 kg/m2 19.99 kg/m2 eCW1 ([facility]) Heart rate 104 /min 104 /min eCW1 ([facility]) Body weight 99 [lb_av] 99 [lb_av] eCW1 ([facility]) Body weight 101 [lb_av] 101 [lb_av] eCW1 ([facility]) Body height 59 [in_i] 59 [in_i] eCW1 ([facility]) Body mass index (BMI) [Ratio] 20.40 kg/m2 20.40 kg/m2 eCW1 ([facility]) Heart rate 116 /min 116 /min eCW1 ([facility]) Respiratory rate 18 /min 18 /min eCW1 ([facility]) Body temperature 98.3 [degF] 98.3 [degF] eCW1 ( [facility]) Systolic blood pressure 104 mm[Hg] 104 mm[Hg] e CW1 ([facility]) Diastolic blood pressure 64 mm[Hg] 64 mm[Hg] eCW1 ([facility]) Body weight 95.2 [lb_av] 95.2 [lb_av] eCW1 ([facility]) Body weight 43.1 kg 43.1 kg eCW1 ([facility]) Body height 59 [in_i] 59 [in_i] eCW1 ([facility]) Body mass index (BMI) [Ratio] 19.23 kg/m2 19.23 kg/m2 eCW1 ([facility]) Heart rate 102 /min 102 /min eCW1 ([facility]) Respiratory rate 18 /min 18 /min eCW1 ([facility]) Body temperature 98.3 [degF] 98.3 [degF] eCW1 ( [facility]) Systolic blood pressure 110 mm[Hg] 110 mm[Hg] e CW1 ([facility]) Diastolic blood pressure 78 mm[Hg] 78 mm[Hg] eCW1 ([facility]) Body weight 91.0 [lb_av] 91.0 [lb_av] eCW1 ([facility]) Body weight 41.3 kg 41.3 kg eCW1 ([facility]) Body height 59 [in_i] 59 [in_i] eCW1 ([facility]) Body mass index (BMI) [Ratio] 18.38 kg/m2 18.38 kg/m2 eCW1 ([facility]) Heart rate 92 /min 92 /min eCW1 ([facility]) Respiratory rate 18 /min 18 /min eCW1 ([facility]) Body temperature 98.5 [degF] 98.5 [degF] eCW1 ( [facility]) Systolic blood pressure 122 mm[Hg] 122 mm[Hg] e CW1 ([facility]) Diastolic blood pressure 78 mm[Hg] 78 mm[Hg] eCW1 ([facility]) Body weight 88.8 [lb_av] 88.8 [lb_av] eCW1 ([facility]) Body height 59 [in_i] 59 [in_i] eCW1 ([facility]) Body mass index (BMI) [Ratio] 17.93 kg/m2 17.93 kg/m2 eCW1 ([facility]) Heart rate 100 /min 100 /min eCW1 ([facility]) Respiratory rate 18 /min 18 /min eCW1 ([facility]) Body temperature 97.4 [degF] 97.4 [degF] eCW1 ( [facility]) Systolic blood pressure 100 mm[Hg] 100 mm[Hg] e CW1 ([facility]) Diastolic blood pressure 62 mm[Hg] 62 mm[Hg] eCW1 ([facility]) Heart rate 99 /min 99 /min eCW1 ([facility]) Body weight 88 [lb_av] 88 [lb_av] eCW1 ([facility]) Body height 59 [in_i] 59 [in_i] eCW1 ([facility]) Respiratory rate 16 /min 16 /min eCW1 ([facility]) Body temperature 98.9 [degF] 98.9 [degF] eCW1 ( [facility]) Systolic blood pressure 98 mm[Hg] 98 mm[Hg] e CW1 ([facility]) Diastolic blood pressure 62 mm[Hg] 62 mm[Hg] eCW1 ([facility]) Body mass index (BMI) [Ratio] 17.77 kg/m2 17.77 kg/m2 eCW1 ([facility]) Body weight 93 [lb_av] 93 [lb_av] eCW1 ([facility]) Body height 59 [in_i] 59 [in_i] eCW1 ([facility]) Body mass index (BMI) [Ratio] 18.78 kg/m2 18.78 kg/m2 eCW1 ([facility]) Systolic blood pressure 120 mm[Hg] 120 mm[Hg] e CW1 ([facility]) Diastolic blood pressure 82 mm[Hg] 82 mm[Hg] eCW1 ([facility]) Body weight 91 [lb_av] 91 [lb_av] eCW1 ([facility]) Body temperature 98.2 [degF] 98.2 [degF] eCW1 ( [facility]) Systolic blood pressure 84 mm[Hg] 84 mm[Hg] e CW1 ([facility]) Diastolic blood pressure 58 mm[Hg] 58 mm[Hg] eCW1 ([facility]) Body height 59 [in_i] 59 [in_i] eCW1 ([facility]) Body mass index (BMI) [Ratio] 18.38 kg/m2 18.38 kg/m2 eCW1 ([facility]) Heart rate 114 /min 114 /min eCW1 ([facility]) Respiratory rate 18 /min 18 /min eCW1 ([facility]) Body weight 95 [lb_av] 95 [lb_av] eCW1 ([facility]) Body temperature 98.4 [degF] 98.4 [degF] eCW1 ( [facility]) Body mass index (BMI) [Ratio] 19.19 kg/m2 19.19 kg/m2 eCW1 ([facility]) Heart rate 107 /min 107 /min eCW1 ([facility]) Body height 59 [in_i] 59 [in_i] eCW1 ([facility]) Respiratory rate 18 /min 18 /min eCW1 ([facility]) Diastolic blood pressure 76 mm[Hg] 76 mm[Hg] eCW1 ([facility]) Systolic blood pressure 108 mm[Hg] 108 mm[Hg] e CW1 ([facility]) Body weight 91 [lb_av] 91 [lb_av] eCW1 ([facility]) Body height 59 [in_i] 59 [in_i] eCW1 ([facility]) Body mass index (BMI) [Ratio] 18.38 kg/m2 18.38 kg/m2 eCW1 ([facility]) Heart rate 108 /min 108 /min eCW1 ([facility]) Respiratory rate 18 /min 18 /min eCW1 ([facility]) Body temperature 97.8 [degF] 97.8 [degF] eCW1 ( [facility]) Systolic blood pressure 112 mm[Hg] 112 mm[Hg] e CW1 ([facility]) Diastolic blood pressure 78 mm[Hg] 78 mm[Hg] eCW1 ([facility]) Body weight 44.169 kg 44.169 kg [facility] [place] body weight 100 [lb_av] 100 [lb_av] MEDEN T ([facility], ) Systolic blood pressure 110 mm[Hg] 110 mm[Hg] M EDENT ([facility], ) Diastolic blood pressure 78 mm[Hg] 78 mm[Hg] MEDENT ([facility]) Heart rate 94 /min 94 /min [facility] ([facility], ) Oxygen saturation in Arterial blood by Pulse oximetry 97 % 97 % [facility] ([facility]) Respiratory rate 18 /min 18 /min [facility] ( [facility], ) Body temperature 95.7 [degF] 95.7 [degF] MEDENT ([facility], ) Body height 57 [in_i] 57 [in_i] [facility] ([facility], [facility] 4'9" Body weight 97.38 [lb_av] 97.38 [lb_av] [facility] ([facility]) Body mass index (BMI) [Ratio] 21.1 kg/m2 21.1 k g/m2 [facility] ([facility], ) Body surface area Derived from formula 1.32 m2 1.32 m2 [facility] ([facility] ) Body weight 98.8 [lb_av] 98.8 [lb_av] eCW1 ([facility]) Body weight 44.8 kg 44.8 kg eCW1 ([facility]) Body height 59 [in_i] 59 [in_i] eCW1 ([facility]) Body mass index (BMI) [Ratio] 19.95 kg/m2 19.95 kg/m2 eCW1 ([facility]) Heart rate 97 /min 97 /min eCW1 ([facility]) Respiratory rate 20 /min 20 /min eCW1 ([facility]) Body temperature 99.5 [degF] 99.5 [degF] eCW1 ( [facility]) Systolic blood pressure 112 mm[Hg] 112 mm[Hg] e CW1 ([facility]) Diastolic blood pressure 60 mm[Hg] 60 mm[Hg] eCW1 ([facility]) Respiratory rate 22 /min 22 /min eCW1 ([facility]) Body temperature 98.6 [degF] 98.6 [degF] eCW1 ( [facility]) Systolic blood pressure 118 mm[Hg] 118 mm[Hg] e CW1 ([facility]) Diastolic blood pressure 68 mm[Hg] 68 mm[Hg] eCW1 ([facility]) Body weight 97 [lb_av] 97 [lb_av] eCW1 ([facility]) Body height 59 [in_i] 59 [in_i] eCW1 ([facility]) Body mass index (BMI) [Ratio] 19.59 kg/m2 19.59 kg/m2 eCW1 ([facility]) Heart rate 128 /min 128 /min eCW1 ([facility]) Body weight 105 [lb_av] 105 [lb_av] eCW1 ([facility]) Body height 59 [in_i] 59 [in_i] eCW1 ([facility]) Body mass index (BMI) [Ratio] 21.21 kg/m2 21.21 kg/m2 eCW1 ([facility]) Heart rate 128 /min 128 /min eCW1 ([facility]) Respiratory rate 24 /min 24 /min eCW1 ([facility]) Body temperature 98.6 [degF] 98.6 [degF] eCW1 ( [facility]) Systolic blood pressure 122 mm[Hg] 122 mm[Hg] e CW1 ([facility]) Diastolic blood pressure 60 mm[Hg] 60 mm[Hg] eCW1 ([facility]) Body weight 103 [lb_av] 103 [lb_av] eCW1 ([facility]) Body height 59 [in_i] 59 [in_i] eCW1 ([facility]) Body mass index (BMI) [Ratio] 20.80 kg/m2 20.80 kg/m2 W1 ([facility]) Heart rate 78 /min 78 /min eCW1 ([facility]) Respiratory rate 18 /min 18 /min eCW1 ([facility]) Body temperature 98.4 [degF] 98.4 [degF] eCW1 ( [facility]) Systolic blood pressure 98 mm[Hg] 98 mm[Hg] e CW1 (Formerly [facility]) Diastolic blood pressure 64 mm[Hg] 64 mm[Hg] eCW1 (Formerly [facility]) Oxygen saturation in Arterial blood by Pulse oximetry 96 % 96 % [facility] Systolic blood pressure 106 mm[Hg] 106 mm[Hg] [facility] Diastolic blood pressure 66 mm[Hg] 66 mm[Hg] [facility] Heart rate 72 /min 72 /min [facility] Body temperature 36.78 Bhavna 36.78 Bhavna [facility] Respiratory rate 14 /min 14 /min [facility] Body height 147.[address] [facility] Body weight 48.[address] [facility] Body mass index (BMI) [Ratio] 22.15 kg/m2 22.15 kg/m2 [facility] Body weight 108 [lb_av] 108 [lb_av] eCW1 ([facility]) Body height 59 [in_i] 59 [in_i] eCW1 ([facility]) Body mass index (BMI) [Ratio] 21.81 kg/m2 21.81 kg/m2 eCW1 ([facility]ly [facility]) Heart rate 110 /min 110 /min eCW1 ([facility]) Respiratory rate 18 /min 18 /min eCW1 ([facility]) Body temperature 97.6 [degF] 97.6 [degF] eCW1 ( [facility]) Systolic blood pressure 118 mm[Hg] 118 mm[Hg] e CW1 ([facility]ly [facility]) Diastolic blood pressure 62 mm[Hg] 62 mm[Hg] eCW1 ([facility]) Body weight 109 [lb_av] 109 [lb_av] eCW1 ([facility]) Body height 59 [in_i] 59 [in_i] eCW1 ([facility]) Body mass index (BMI) [Ratio] 22.01 kg/m2 22.01 kg/m2 eCW1 ([facility]) Heart rate 118 /min 118 /min eCW1 ([facility]) Respiratory rate 18 /min 18 /min eCW1 ([facility]) Body temperature 18 [degF] 18 [degF] eCW1 ([facility]) Systolic blood pressure 128 mm[Hg] 128 mm[Hg] e CW1 ([facility]ly [facility]) Diastolic blood pressure 72 mm[Hg] 72 mm[Hg] eCW1 ([facility]ly [facility]) Patient Treatment Plan of Care Planned Activity Planned Date Details Description Data Source (s) Prednisone 10 MG Oral Tablet 01/07/2021 12:00:00 AM EDT eCW1 ([facility]ly [facility]) Prednisone 10 MG Oral Tablet 01/07/2021 12:00:00 AM EDT eCW1 ([facility]) Prednisone 10 MG Oral Tablet 01/07/2021 12:00:00 AM EDT eCW1 ([facility]) Prednisone 10 MG Oral Tablet 01/07/2021 12:00:00 AM EDT eCW1 ([facility]) Prednisone 10 MG Oral Tablet 01/07/2021 12:00:00 AM EDT eCW1 ([facility]) Prednisone 10 MG Oral Tablet 01/07/2021 12:00:00 AM EDT eCW1 ([facility]) Prednisone 20 MG Oral Tablet 12/17/2020 12:00:00 AM EDT eCW1 ([facility]) Ketorolac Tromethamine 10 MG Oral Tablet 12/17/2020 12:00:00 AM EDT eCW1 ([facility]) Prednisone 20 MG Oral Tablet 12/17/2020 12:00:00 AM EDT eCW1 ([facility]) Ketorolac Tromethamine 10 MG Oral Tablet 12/17/2020 12:00:00 AM EDT eCW1 ([facility]) Prednisone 20 MG Oral Tablet 12/17/2020 12:00:00 AM EDT eCW1 ([facility]) Ketorolac Tromethamine 10 MG Oral Tablet 12/17/2020 12:00:00 AM EDT eCW1 ([facility]) Prednisone 5 MG Oral Tablet 11/15/2020 12:00:00 AM EDT eCW1 ([facility]) Prednisone 5 MG Oral Tablet 11/15/2020 12:00:00 AM EDT eCW1 ([facility]) Prednisone 5 MG Oral Tablet 11/15/2020 12:00:00 AM EDT eCW1 ([facility]) Nifedipine 10 MG Oral Capsule 10/24/2020 12:00:00 AM EDT eCW1 ([facility]) Nifedipine 10 MG Oral Capsule 10/24/2020 12:00:00 AM EDT eCW1 ([facility]) Nifedipine 10 MG Oral Capsule 10/24/2020 12:00:00 AM EDT eCW1 ([facility]) Nifedipine 10 MG Oral Capsule 10/24/2020 12:00:00 AM EDT eCW1 ([facility]) Nifedipine 10 MG Oral Capsule 10/24/2020 12:00:00 AM EDT eCW1 ([facility]) Nifedipine 10 MG Oral Capsule 10/24/2020 12:00:00 AM EDT eCW1 ([facility]) Nifedipine 10 MG Oral Capsule 10/24/2020 12:00:00 AM EDT eCW1 ([facility]) Nifedipine 10 MG Oral Capsule 10/24/2020 12:00:00 AM EDT eCW1 ([facility]) Nifedipine 10 MG Oral Capsule 10/24/2020 12:00:00 AM EDT eCW1 ([facility]ly [facility]) Bisacodyl 5 MG Delayed Release Oral Tablet [Dulcolax] 09/19/2020 12:00:00 AM EDT eCW1 ([facility]) Bisacodyl 5 MG Delayed Release Oral Tablet [Dulcolax] 09/19/2020 12:00:00 AM EDT eCW1 ([facility]) Bisacodyl 5 MG Delayed Release Oral Tablet [Dulcolax] 09/19/2020 12:00:00 AM EDT eCW1 ([facility]) Bisacodyl 5 MG Delayed Release Oral Tablet [Dulcolax] 09/19/2020 12:00:00 AM EDT eCW1 ([facility]) Bisacodyl 5 MG Delayed Release Oral Tablet [Dulcolax] 09/19/2020 12:00:00 AM EDT eCW1 ([facility]) Bisacodyl 5 MG Delayed Release Oral Tablet [Dulcolax] 09/19/2020 12:00:00 AM EDT eCW1 ([facility]) Bisacodyl 5 MG Delayed Release Oral Tablet [Dulcolax] 09/19/2020 12:00:00 AM EDT eCW1 ([facility]) Bisacodyl 5 MG Delayed Release Oral Tablet [Dulcolax] 09/19/2020 12:00:00 AM EDT eCW1 ([facility]) Bisacodyl 5 MG Delayed Release Oral Tablet [Dulcolax] 09/19/2020 12:00:00 AM EDT eCW1 ([facility]) sildenafil 20 MG Oral Tablet 09/11/2020 12:00:00 AM EDT eCW1 ([facility]) sildenafil 20 MG Oral Tablet 09/11/2020 12:00:00 AM EDT eCW1 ([facility]) sildenafil 20 MG Oral Tablet 09/11/2020 12:00:00 AM EDT eCW1 ([facility]) sildenafil 20 MG Oral Tablet 09/11/2020 12:00:00 AM EDT eCW1 ([facility]) sildenafil 20 MG Oral Tablet 09/11/2020 12:00:00 AM EDT eCW1 ([facility]) sildenafil 20 MG Oral Tablet 09/11/2020 12:00:00 AM EDT eCW1 ([facility]) sildenafil 20 MG Oral Tablet 09/11/2020 12:00:00 AM EDT eCW1 ([facility]) sildenafil 20 MG Oral Tablet 09/11/2020 12:00:00 AM EDT eCW1 ([facility]) Prednisone 5 MG Oral Tablet 08/27/2020 12:00:00 AM EDT eCW1 ([facility]) Prednisone 5 MG Oral Tablet 08/27/2020 12:00:00 AM EDT eCW1 ([facility]) Metronidazole 500 MG Oral Tablet 08/23/2020 12:00:00 AM EDT eCW1 ([facility]) Metronidazole 500 MG Oral Tablet 08/23/2020 12:00:00 AM EDT eCW1 ([facility]) Metronidazole 500 MG Oral Tablet 08/23/2020 12:00:00 AM EDT eCW1 ([facility]) dalbavancin 20 MG/ML Injectable Solution [Dalvance] 08/16/19 12:00:00 AM EDT eCW1 ([facility]) Minocycline 100 MG Oral Capsule 08/07/2020 12:00:00 AM EDT eCW1 ([facility]) Nifedipine 10 MG Oral Capsule 08/07/2020 12:00:00 AM EDT eCW1 ([facility]) Minocycline 100 MG Oral Capsule 08/07/2020 12:00:00 AM EDT eCW1 ([facility]) Nifedipine 10 MG Oral Capsule 08/07/2020 12:00:00 AM EDT eCW1 ([facility]) Minocycline 100 MG Oral Capsule 08/07/2020 12:00:00 AM EDT eCW1 ([facility]) Nifedipine 10 MG Oral Capsule 08/07/2020 12:00:00 AM EDT eCW1 ([facility]) cefdinir 300 MG Oral Capsule 07/18/2020 12:00:00 AM EDT eCW1 ([facility]) cefdinir 300 MG Oral Capsule 07/18/2020 12:00:00 AM EDT eCW1 ([facility]) cefdinir 300 MG Oral Capsule 07/18/2020 12:00:00 AM EDT eCW1 ([facility]) Ondansetron 8 MG Disintegrating Oral Tablet 07/15/2020 12:00:00 AM EDT eCW1 ([facility]) Ondansetron 8 MG Disintegrating Oral Tablet 07/15/2020 12:00:00 AM EDT eCW1 ([facility]) Ondansetron 8 MG Disintegrating Oral Tablet 07/15/2020 12:00:00 AM EDT eCW1 ([facility]) Prednisone 20 MG Oral Tablet 07/02/2020 12:00:00 AM EDT eCW1 ([facility]) Prednisone 20 MG Oral Tablet 07/02/2020 12:00:00 AM EDT eCW1 ([facility]) Prednisone 20 MG Oral Tablet 07/02/2020 12:00:00 AM EDT eCW1 ([facility]) Prednisone 20 MG Oral Tablet 07/02/2020 12:00:00 AM EDT eCW1 ([facility]) Prednisone 20 MG Oral Tablet 07/02/2020 12:00:00 AM EDT eCW1 ([facility]) Prednisone 20 MG Oral Tablet 07/02/2020 12:00:00 AM EDT eCW1 ([facility]) Prednisone 20 MG Oral Tablet 07/02/2020 12:00:00 AM EDT eCW1 ([facility]) Prednisone 20 MG Oral Tablet 07/02/2020 12:00:00 AM EDT eCW1 ([facility]) Hydroxychloroquine Sulfate 200 MG Oral Tablet [[place]] 06/26/2020 12:00:00 AM EDT eCW1 ([facility]) Hydroxychloroquine Sulfate 200 MG Oral Tablet [[place]] 06/26/2020 12:00:00 AM EDT eCW1 ([facility]) Nitroglycerin 0.02 MG/MG Topical Ointment [Nitro-Bid] 06/26/2020 12:00:00 AM EDT eCW1 ([facility]) Hydroxychloroquine Sulfate 200 MG Oral Tablet [[place]] 06/26/2020 12:00:00 AM EDT eCW1 ([facility]) Nitroglycerin 0.02 MG/MG Topical Ointment [Nitro-Bid] 06/26/2020 12:00:00 AM EDT eCW1 ([facility]) Hydroxychloroquine Sulfate 200 MG Oral Tablet [[place]] 06/26/2020 12:00:00 AM EDT eCW1 ([facility]) Nitroglycerin 0.02 MG/MG Topical Ointment [Nitro-Bid] 06/26/2020 12:00:00 AM EDT eCW1 ([facility]) Hydroxychloroquine Sulfate 200 MG Oral Tablet [[place]] 06/26/2020 12:00:00 AM EDT eCW1 ([facility]) Nitroglycerin 0.02 MG/MG Topical Ointment [Nitro-Bid] 06/26/2020 12:00:00 AM EDT eCW1 ([facility]) Hydroxychloroquine Sulfate 200 MG Oral Tablet [[place]] 06/26/2020 12:00:00 AM EDT eCW1 ([facility]) Nitroglycerin 0.02 MG/MG Topical Ointment [Nitro-Bid] 06/26/2020 12:00:00 AM EDT eCW1 ([facility]) Hydroxychloroquine Sulfate 200 MG Oral Tablet [[place]] 06/26/2020 12:00:00 AM EDT eCW1 ([facility]) Nitroglycerin 0.02 MG/MG Topical Ointment [Nitro-Bid] 06/26/2020 12:00:00 AM EDT eCW1 ([facility]) Nitroglycerin 0.02 MG/MG Topical Ointment [Nitro-Bid] 06/26/2020 12:00:00 AM EDT eCW1 ([facility]) Hydroxychloroquine Sulfate 200 MG Oral Tablet [[place]] 06/26/2020 12:00:00 AM EDT eCW1 ([facility]) Nitroglycerin 0.02 MG/MG Topical Ointment [Nitro-Bid] 06/26/2020 12:00:00 AM EDT eCW1 ([facility]) Hydroxychloroquine Sulfate 200 MG Oral Tablet [[place]] 06/26/2020 12:00:00 AM EDT eCW1 ([facility]) Nitroglycerin 0.02 MG/MG Topical Ointment [Nitro-Bid] 06/26/2020 12:00:00 AM EDT eCW1 ([facility]) Hydroxychloroquine Sulfate 200 MG Oral Tablet [[place]] 06/26/2020 12:00:00 AM EDT eCW1 ([facility]) Nitroglycerin 0.02 MG/MG Topical Ointment [Nitro-Bid] 06/26/2020 12:00:00 AM EDT eCW1 ([facility]) celecoxib 200 MG Oral Capsule [Celebrex] 06/17/2020 12:00:00 AM EDT eCW1 ([facility]) celecoxib 200 MG Oral Capsule [Celebrex] 06/17/2020 12:00:00 AM EDT eCW1 ([facility]) meloxicam 15 MG Oral Tablet 03/18/2020 12:00:00 AM [facility] Ketorolac Tromethamine 10 MG Oral Tablet 03/12/2020 12:00:00 AM EST eCW1 ([facility]) Ketorolac Tromethamine 10 MG Oral Tablet 03/12/2020 12:00:00 AM EST eCW1 ([facility]) Ketorolac Tromethamine 10 MG Oral Tablet 03/12/2020 12:00:00 AM EST eCW1 ([facility]) Ketorolac Tromethamine 10 MG Oral Tablet 03/12/2020 12:00:00 AM EST eCW1 ([facility]) cefdinir 300 MG Oral Capsule 02/20/2020 12:00:00 AM EST eCW1 ([facility]) Phenergan 25 MG 02/06/2020 12:00:00 AM EST eCW1 ([facility]) Dicyclomine Hydrochloride 20 MG Oral Tablet 02/06/2020 12:00:00 AM EST eCW1 ([facility]) Phenergan 25 MG 02/06/2020 12:00:00 AM EST eCW1 ([facility]) Dicyclomine Hydrochloride 20 MG Oral Tablet 02/06/2020 12:00:00 AM EST eCW1 ([facility]) Phenergan 25 MG 02/06/2020 12:00:00 AM EST eCW1 ([facility]) Dicyclomine Hydrochloride 20 MG Oral Tablet 02/06/2020 12:00:00 AM EST eCW1 ([facility]) Potassium Chloride Thais ER 10 MEQ 12/25/2019 12:00:00 AM EDT eCW1 ([facility]) Potassium Chloride Thais ER 10 MEQ 12/25/2019 12:00:00 AM EDT eCW1 ([facility]) Potassium Chloride Thais ER 10 MEQ 12/25/2019 12:00:00 AM EDT eCW1 ([facility]) Potassium Chloride 20 MEQ 12/21/2019 12:00:00 AM EDT eCW1 ([facility]) Triamcinolone Acetonide 0.001 MG/MG Oral Paste 12/21/2019 12:00:00 AM EDT eCW1 ([facility]) Potassium Chloride 20 MEQ 12/21/2019 12:00:00 AM EDT eCW1 ([facility]) Triamcinolone Acetonide 0.001 MG/MG Oral Paste 12/21/2019 12:00:00 AM EDT eCW1 ([facility]) Potassium Chloride 20 MEQ 12/21/2019 12:00:00 AM EDT eCW1 ([facility]) Triamcinolone Acetonide 0.001 MG/MG Oral Paste 12/21/2019 12:00:00 AM EDT eCW1 ([facility]) Potassium Chloride 20 MEQ 12/21/2019 12:00:00 AM EDT eCW1 ([facility]) Triamcinolone Acetonide 0.001 MG/MG Oral Paste 12/21/2019 12:00:00 AM EDT eCW1 ([facility]) Potassium Chloride 20 MEQ 12/21/2019 12:00:00 AM EDT eCW1 ([facility]) Triamcinolone Acetonide 0.001 MG/MG Oral Paste 12/21/2019 12:00:00 AM EDT eCW1 ([facility]) Potassium Chloride 20 MEQ 12/21/2019 12:00:00 AM EDT eCW1 ([facility]) Triamcinolone Acetonide 0.001 MG/MG Oral Paste 12/21/2019 12:00:00 AM EDT eCW1 ([facility]) Potassium Chloride 20 MEQ 12/21/2019 12:00:00 AM EDT eCW1 ([facility]) Triamcinolone Acetonide 0.001 MG/MG Oral Paste 12/21/2019 12:00:00 AM EDT eCW1 ([facility])
== END 2021-02-14 06:36 | disposition left against medical advice (07) ==
LOC: M ED 05:14
DX: Z53.21 Procedure and treatment not carried out due to patient leaving prior to being seen by health care provider (principal)

== ENCOUNTER → 2021-04-07 | Outpatient (CLI) | payer OTHER ==
[~2021-04-07] MED LIST changes: -CEFD1CAP8 PO; +CEFD300C41 PO; -FLUC150T PO; +FLUC150T9 PO; -LEVO500T3 PO; +LEVO500T4 PO; -OMEP-221 PO; +OMEP40CA5 PO
[2021-04-07 15:17] LABS: BASO # 0.1 10^3/uL (0.0-0.2); BASO % 0.4 % (0.0-1.0); EOS # 0.1 10^3/uL (0.0-0.5); EOS % 0.7 % (0.0-3.0); HEMATOCRIT 37.3 % (36.0-47.0); HEMOGLOBIN 11.6 g/dl (12.0-15.5); LYMPH # 1.2 10^3/uL (1.5-5.0); LYMPH % 9.8 % (24.0-44.0); MEAN CORPUSCULAR HEMOGLOBIN 25.7 pg (27.0-33.0); MEAN CORPUSCULAR HGB CONC 31.1 g/dl (32.0-36.5); MEAN CORPUSCULAR VOLUME 82.5 fl (80.0-96.0); MONO # 0.4 10^3/uL (0.0-0.8); MONO % 3.5 % (2.0-8.0); NEUTROPHILS # 10.6 10^3/uL (1.5-8.5); NEUTROPHILS % 84.9 % (36.0-66.0); PLATELET COUNT, AUTOMATED 546 10^3/uL (150-450); RED BLOOD COUNT 4.52 10^6/uL (4.00-5.40); WHITE BLOOD COUNT 12.5 10^3/uL (4.0-10.0)
[2021-04-07 15:49] LABS: ALBUMIN 2.7 GM/DL (3.2-5.2); ALT/SGPT 18 U/L (12-78); BILIRUBIN,TOTAL 0.1 MG/DL (0.2-1.0); BLOOD UREA NITROGEN 11 MG/DL (7-18); C REACTIVE PROTEIN QUANTITATIV 8.67 MG/DL (0.00-0.30); CARBON DIOXIDE LEVEL 29 MEQ/L (21-32); CHLORIDE LEVEL 105 MEQ/L (98-107); CREATININE FOR GFR 0.92 MG/DL (0.55-1.30); ERYTHROCYTE SEDIMENTATION RATE 73 mm/hr (0-30); GLOMERULAR FILTRATION RATE > 60.0 (>51); GLUCOSE, FASTING 110 MG/DL (70-100); POTASSIUM SERUM 4.8 MEQ/L (3.5-5.1); SODIUM LEVEL 139 MEQ/L (136-145); TOTAL PROTEIN 6.6 GM/DL (6.4-8.2)
== END ==
LOC: M PLALAB 12:20
PROVIDERS: ATTEND Nurse Practitioner Family
DX: M25.561 Pain in right knee (principal)

== ENCOUNTER → 2021-04-22 | Outpatient (CLI) | payer OTHER, MEDICAID ==
[2021-04-22 11:14] LABS: BASO # 0.1 10^3/uL (0.0-0.2); BASO % 0.6 % (0.0-1.0); EOS # 0.4 10^3/uL (0.0-0.5); EOS % 3.8 % (0.0-3.0); HEMOGLOBIN 11.4 g/dl (12.0-15.5); LYMPH # 2.6 10^3/uL (1.5-5.0); LYMPH % 24.6 % (24.0-44.0); MEAN CORPUSCULAR HEMOGLOBIN 25.6 pg (27.0-33.0); MEAN CORPUSCULAR HGB CONC 30.8 g/dl (32.0-36.5); MEAN CORPUSCULAR VOLUME 83.1 fl (80.0-96.0); MONO # 0.7 10^3/uL (0.0-0.8); MONO % 6.8 % (2.0-8.0); NEUTROPHILS # 6.7 10^3/uL (1.5-8.5); NEUTROPHILS % 63.7 % (36.0-66.0); PLATELET COUNT, AUTOMATED 455 10^3/uL (150-450); RED BLOOD COUNT 4.45 10^6/uL (4.00-5.40); WHITE BLOOD COUNT 10.5 10^3/uL (4.0-10.0)
[2021-04-22 11:36] LABS: ALBUMIN 2.7 GM/DL (3.2-5.2); ALT/SGPT 16 U/L (12-78); BILIRUBIN,TOTAL 0.2 MG/DL (0.2-1.0); BLOOD UREA NITROGEN 14 MG/DL (7-18); CALCIUM LEVEL 8.8 MG/DL (8.5-10.1); CARBON DIOXIDE LEVEL 27 MEQ/L (21-32); CHLORIDE LEVEL 106 MEQ/L (98-107); CREATININE FOR GFR 0.82 MG/DL (0.55-1.30); GLOMERULAR FILTRATION RATE > 60.0 (>51); GLUCOSE, FASTING 117 MG/DL (70-100); POTASSIUM SERUM 4.4 MEQ/L (3.5-5.1); SODIUM LEVEL 139 MEQ/L (136-145); TOTAL PROTEIN 6.4 GM/DL (6.4-8.2)
[2021-04-22 11:43] LABS: ERYTHROCYTE SEDIMENTATION RATE 44 mm/hr (0-30)
[2021-04-23 23:08] LABS: CYCLIC CITRULLINATED PEPTIDE > 250 units (0-19); HEPATITIS C QUANTITATION <15 IU/mL (.)
== END ==
LOC: M LAB 10:00
PROVIDERS: ATTEND Internal Medicine Infectious Disease
DX: G06.1 Intraspinal abscess and granuloma (principal); Z86.19 Personal history of other infectious and parasitic diseases; M05.742 Rheumatoid arthritis with rheumatoid factor of left hand without organ or systems involvement

== ENCOUNTER → 2021-05-21 | Outpatient (CLI) | payer OTHER ==
[2021-05-21 18:11] LABS: ALBUMIN 3.4 GM/DL (3.2-5.2); ALT/SGPT 21 U/L (12-78); BILIRUBIN,DIRECT < 0.1 MG/DL (0.0-0.2); BILIRUBIN,TOTAL 0.4 MG/DL (0.2-1.0); TOTAL PROTEIN 6.6 GM/DL (6.4-8.2)
[2021-05-23 17:05] LABS: HEPATITIS C QUANTITATION HCV Not Detected IU/mL (.)
== END ==
LOC: M PLALAB 14:26
PROVIDERS: ATTEND Internal Medicine Infectious Disease
DX: Z86.19 Personal history of other infectious and parasitic diseases (principal)

== ENCOUNTER → 2021-05-21 | Outpatient (REF) | payer OTHER | LOC: M SFHCPLAZ 16:44 | PROVIDERS: ATTEND Physician Assistant | DX: R53.81 Other malaise (principal) ==

== ENCOUNTER → 2021-05-21 | Outpatient (CLI) | payer OTHER ==
[2021-05-21 18:05] LABS: BASO % 0.1 % (0.0-1.0); EOS % 0.1 % (0.0-3.0); HEMATOCRIT 37.7 % (36.0-47.0); HEMOGLOBIN 11.9 g/dl (12.0-15.5); LYMPH # 1.2 10^3/uL (1.5-5.0); LYMPH % 7.8 % (24.0-44.0); MEAN CORPUSCULAR HEMOGLOBIN 25.9 pg (27.0-33.0); MEAN CORPUSCULAR HGB CONC 31.6 g/dl (32.0-36.5); MONO # 0.3 10^3/uL (0.0-0.8); MONO % 2.1 % (2.0-8.0); NEUTROPHILS % 89.3 % (36.0-66.0); PLATELET COUNT, AUTOMATED 417 10^3/uL (150-450); WHITE BLOOD COUNT 15.6 10^3/uL (4.0-10.0)
[2021-05-21 18:22] LABS: ALBUMIN 3.4 GM/DL (3.2-5.2); BLOOD UREA NITROGEN 21 MG/DL (7-18); CARBON DIOXIDE LEVEL 26 MEQ/L (21-32); CHLORIDE LEVEL 106 MEQ/L (98-107); CREATININE FOR GFR 0.92 MG/DL (0.55-1.30); GLOMERULAR FILTRATION RATE > 60.0 (>51); GLUCOSE, FASTING 101 MG/DL (70-100); POTASSIUM SERUM 4.5 MEQ/L (3.5-5.1); SODIUM LEVEL 141 MEQ/L (136-145)
== END ==
LOC: M PLALAB 14:20
PROVIDERS: ATTEND Physician Assistant
DX: M19.031 Primary osteoarthritis, right wrist (principal); M12.831 Other specific arthropathies, not elsewhere classified, right wrist; R53.81 Other malaise; R68.83 Chills (without fever); R06.02 Shortness of breath

== ENCOUNTER → 2021-05-27 | Outpatient (CLI) | payer OTHER ==
[2021-05-27 14:13] LABS: BASO % 0.2 % (0.0-1.0); EOS % 0.2 % (0.0-3.0); HEMATOCRIT 43.1 % (36.0-47.0); HEMOGLOBIN 13.3 g/dl (12.0-15.5); LYMPH # 1.1 10^3/uL (1.5-5.0); LYMPH % 6.1 % (24.0-44.0); MEAN CORPUSCULAR HEMOGLOBIN 25.4 pg (27.0-33.0); MEAN CORPUSCULAR HGB CONC 30.9 g/dl (32.0-36.5); MEAN CORPUSCULAR VOLUME 82.4 fl (80.0-96.0); MONO # 0.5 10^3/uL (0.0-0.8); MONO % 2.6 % (2.0-8.0); NEUTROPHILS # 16.8 10^3/uL (1.5-8.5); NEUTROPHILS % 90.4 % (36.0-66.0); PLATELET COUNT, AUTOMATED 443 10^3/uL (150-450); RED BLOOD COUNT 5.23 10^6/uL (4.00-5.40); WHITE BLOOD COUNT 18.6 10^3/uL (4.0-10.0)
[2021-05-27 16:57] LABS: ERYTHROCYTE SEDIMENTATION RATE 17 mm/hr (0-30)
== END ==
LOC: M PLALAB 12:29
PROVIDERS: ATTEND Physician Assistant
DX: R53.81 Other malaise (principal); D72.829 Elevated white blood cell count, unspecified; R68.83 Chills (without fever)

== ENCOUNTER → 2021-05-29 | Outpatient (CLI) | payer OTHER ==
[2021-05-29 15:00] LABS: BASO % 0.2 % (0.0-1.0); HEMATOCRIT 40.9 % (36.0-47.0); LYMPH # 1.1 10^3/uL (1.5-5.0); LYMPH % 9.2 % (24.0-44.0); MEAN CORPUSCULAR HEMOGLOBIN 25.7 pg (27.0-33.0); MEAN CORPUSCULAR HGB CONC 31.8 g/dl (32.0-36.5); MONO # 0.4 10^3/uL (0.0-0.8); MONO % 3.1 % (2.0-8.0); NEUTROPHILS # 10.8 10^3/uL (1.5-8.5); NEUTROPHILS % 87.1 % (36.0-66.0); PLATELET COUNT, AUTOMATED 450 10^3/uL (150-450); RED BLOOD COUNT 5.05 10^6/uL (4.00-5.40); WHITE BLOOD COUNT 12.4 10^3/uL (4.0-10.0)
[2021-05-29 15:21] LABS: ERYTHROCYTE SEDIMENTATION RATE 23 mm/hr (0-30)
[2021-05-29 15:29] LABS: ALBUMIN 3.7 GM/DL (3.2-5.2); ALT/SGPT 23 U/L (12-78); BILIRUBIN,TOTAL 0.2 MG/DL (0.2-1.0); BLOOD UREA NITROGEN 15 MG/DL (7-18); C REACTIVE PROTEIN QUANTITATIV 5.56 MG/DL (0.00-0.30); CALCIUM LEVEL 9.2 MG/DL (8.5-10.1); CARBON DIOXIDE LEVEL 29 MEQ/L (21-32); CHLORIDE LEVEL 106 MEQ/L (98-107); CREATININE FOR GFR 0.82 MG/DL (0.55-1.30); GLOMERULAR FILTRATION RATE > 60.0 (>51); GLUCOSE, FASTING 117 MG/DL (70-100); POTASSIUM SERUM 4.9 MEQ/L (3.5-5.1); SODIUM LEVEL 138 MEQ/L (136-145); TOTAL PROTEIN 7.2 GM/DL (6.4-8.2)
== END ==
LOC: M LAB 14:03
PROVIDERS: ATTEND Physician Assistant
DX: R53.81 Other malaise (principal)

== ENCOUNTER → 2021-10-09 | Outpatient (REF) | payer OTHER, MEDICAID ==
[~2021-10-09] MED LIST changes: +LEVO1TAB39 PO; -LEVO500T4 PO; +POTA-150 PO; -POTA10TA17 PO
== END ==
LOC: M SFHCPLAZ 13:01
PROVIDERS: ATTEND Physician Assistant
DX: R21 Rash and other nonspecific skin eruption (principal)

== ENCOUNTER 2021-10-22 09:44 | Emergency (ER) | payer MEDICAID, OTHER ==
[~2021-10-22] VITALS: Ht 147.3 cm; Wt 45.5 kg
[2021-10-22 11:38] LABS: HEMATOCRIT 38.6 % (36.0-47.0); HEMOGLOBIN 12.4 g/dl (12.0-15.5); MEAN CORPUSCULAR HEMOGLOBIN 25.4 pg (27.0-33.0); MEAN CORPUSCULAR HGB CONC 32.1 g/dl (32.0-36.5); MEAN CORPUSCULAR VOLUME 79.1 fl (80.0-96.0); PLATELET COUNT, AUTOMATED 321 10^3/uL (150-450); RED BLOOD COUNT 4.88 10^6/uL (4.00-5.40); WHITE BLOOD COUNT 10.9 10^3/uL (4.0-10.0)
[2021-10-22 12:13] LABS: RSV AMPLIFICATION NEGATIVE (NEGATIVE)
[2021-10-22 12:34] LABS: ALBUMIN 3.5 GM/DL (3.2-5.2); ALT/SGPT 26 U/L (12-78); BILIRUBIN,DIRECT 0.2 MG/DL (0.0-0.2); BILIRUBIN,TOTAL 0.5 MG/DL (0.2-1.0); BLOOD UREA NITROGEN 8 MG/DL (7-18); CALCIUM LEVEL 9.4 MG/DL (8.5-10.1); CARBON DIOXIDE LEVEL 26 MEQ/L (21-32); CHLORIDE LEVEL 104 MEQ/L (98-107); CREATININE FOR GFR 0.64 MG/DL (0.55-1.30); ETHYL ALCOHOL (ETHANOL) < 0.003 % (0.000-0.010); GLOMERULAR FILTRATION RATE > 60.0 (>51); GLUCOSE, FASTING 81 MG/DL (70-100); POTASSIUM SERUM 3.3 MEQ/L (3.5-5.1); SODIUM LEVEL 137 MEQ/L (136-145); THYROID STIMULATING HORMONE 0.248 uIU/ML (0.358-3.740); TOTAL PROTEIN 7.7 GM/DL (6.4-8.2)
[2021-10-22 12:35] LABS: ACETAMINOPHEN LEVEL < 2.0 UG/ML (10.0-30.0)
[2021-10-22 12:55] LABS: AMPHETAMINES LEVEL URINE NEGATIVE (NEGATIVE); BARBITURATES URINE NEGATIVE (NEGATIVE); BENZODIAZEPINES URINE POSITIVE (NEGATIVE); CANNABINOIDS URINE POSITIVE (NEGATIVE); COCAINE METABOLITE URINE NEGATIVE (NEGATIVE); METHADONE URINE NEGATIVE (NEGATIVE); OPIATES URINE NEGATIVE (NEGATIVE); PHENCYCLIDINE URINE NEGATIVE (NEGATIVE)
[2021-10-22] MEDS ORDERED: POTASSIUM CHLORIDE 10MEQ SR TABLET PO ONE (14:20)
[2021-10-22] MEDS ORDERED: QUET50TA4 PO (15:22)
[2021-10-22] MEDS ORDERED: PRAZ2CAP PO (15:22)
[2021-10-22] MEDS ORDERED: ONDA8TAB8 PO (15:22)
[2021-10-22] MEDS ORDERED: BUSP10TA PO (15:22)
[2021-10-22] MEDS ORDERED: SILD20TA50 PO (15:22)
[2021-10-22] MEDS ORDERED: DULO30CA9 PO (15:22)
[2021-10-22] MEDS ORDERED: ARAV1TAB PO (15:22)
[2021-10-22] MEDS ORDERED: ESTR0.5T3 PO (15:22)
[2021-10-22] MEDS ORDERED: GABA-282 PO (15:22)
[2021-10-22] MEDS ORDERED: HYDR-3363 PO (15:22)
[2021-10-22] MEDS ORDERED: PRED5TA PO (15:22)
[2021-10-22] MEDS ORDERED: DICL1GEL3 TOP (15:22)
[2021-10-22] MEDS ORDERED: LIDO1PAD TOP (15:22)
[2021-10-22] MEDS ORDERED: SENN-23 PO (15:22)
[2021-10-22] MEDS ORDERED: OMEP40CA5 PO (15:22)
[2021-10-22] MEDS ORDERED: NALO4SPR NS (15:22)
[2021-10-22] MEDS ORDERED: SUBO8MIS SL (15:22)
[2021-10-22] MEDS ORDERED: QUET200T2 PO (15:22)
[2021-10-22] MEDS ORDERED: SFHHYD1CR TOP (15:22)
[2021-10-22] MEDS ORDERED: HOME MED LIST COMPLETE! XX SCH (15:25)
[2021-10-22] MEDS ORDERED: IBUPROFEN 600MG TAB PO ONE (18:50)
[2021-10-23 00:06] LABS: APPEARANCE, URINE MANUAL CLEAR (CLEAR); BILIRUBIN, URINE MANUAL NEGATIVE (NEGATIVE); BLOOD URINE MANUAL NEGATIVE (NEGATIVE); COLOR, URINE MANUAL YELLOW (YELLOW); GLUCOSE, URINE (UA) MANUAL NEGATIVE (NEGATIVE); KETONE, URINE MANUAL 2+ mg/dL (NEGATIVE); NITRITE, URINE MANUAL NEGATIVE (NEGATIVE); PROTEIN, URINE MANUAL NEGATIVE (NEGATIVE); SPECIFIC GRAVITY,URINE MANUAL 1.015 (1.002-1.035); UROBILINOGEN, URINE MANUAL NORMAL (NORMAL)
[2021-10-23 00:08] LABS: LEUKOCYTE ESTERASE, URINE MAN TRACE (NEGATIVE)
[2021-10-23 00:53] LABS: RBC, URINE 0-1 /hpf (0-3); SQUAMOUS EPITHELIAL CELL URINE MOD AMOUNT /hpf (SMALL AMT)
[2021-10-23 00:54] LABS: BACTERIA, URINE SMALL AMOUNT; HYALINE CAST, URINE NONE SEEN /lpf (0-1); YEAST, URINE SMALL AMOUNT
[2021-10-23 09:12] VITALS: BP 111/66
== END 2021-10-23 09:17 ==
LOC: M ED 09:44 → CANRESERV 16:12 → ENRESERV 16:12 → M ED 10-23 09:17
DX: R45.851 Suicidal ideations (principal); F19.10 Other psychoactive substance abuse, uncomplicated; F41.9 Anxiety disorder, unspecified; F32.9 Major depressive disorder, single episode, unspecified; F17.200 Nicotine dependence, unspecified, uncomplicated; Z88.0 Allergy status to penicillin; Z88.2 Allergy status to sulfonamides; Z88.5 Allergy status to narcotic agent; Z88.8 Allergy status to other drugs, medicaments and biological substances

== ENCOUNTER 2021-11-22 12:39 | Emergency (ER) | payer OTHER ==
[~2021-11-22] VITALS: Ht 147.3 cm; Wt 42.7 kg
[~2021-11-22 12:39] MED LIST changes: +ARAV1TAB PO; +BUSP10TA PO; +DICL1GEL3 TOP; +DULO30CA9 PO; +LIDO1PAD TOP; +NALO4SPR NS; +PRAZ2CAP PO; +PRED5TA PO; +SFHHYD1CR TOP; +SILD20TA50 PO
[2021-11-22] MEDS ORDERED: ONDANSETRON 4MG 2ML VIAL IV ONE (13:15)
[2021-11-22 13:44] LABS: BASO # 0.1 10^3/uL (0.0-0.2); BASO % 0.5 % (0.0-1.0); EOS # 0.1 10^3/uL (0.0-0.5); EOS % 0.4 % (0.0-3.0); HEMATOCRIT 31.3 % (36.0-47.0); HEMOGLOBIN 9.9 g/dl (12.0-15.5); LYMPH # 0.9 10^3/uL (1.5-5.0); LYMPH % 5.1 % (24.0-44.0); MEAN CORPUSCULAR HEMOGLOBIN 25.9 pg (27.0-33.0); MEAN CORPUSCULAR HGB CONC 31.6 g/dl (32.0-36.5); MEAN CORPUSCULAR VOLUME 81.9 fl (80.0-96.0); MONO # 0.6 10^3/uL (0.0-0.8); MONO % 3.5 % (2.0-8.0); NEUTROPHILS % 89.8 % (36.0-66.0); PLATELET COUNT, AUTOMATED 423 10^3/uL (150-450); RED BLOOD COUNT 3.82 10^6/uL (4.00-5.40); WHITE BLOOD COUNT 16.7 10^3/uL (4.0-10.0)
[2021-11-22 14:24] LABS: ALBUMIN 3.1 GM/DL (3.2-5.2); ALT/SGPT 12 U/L (12-78); BILIRUBIN,DIRECT 0.1 MG/DL (0.0-0.2); BILIRUBIN,TOTAL 0.3 MG/DL (0.2-1.0); BLOOD UREA NITROGEN 15 MG/DL (7-18); CALCIUM LEVEL 9.1 MG/DL (8.5-10.1); CARBON DIOXIDE LEVEL 27 MEQ/L (21-32); CHLORIDE LEVEL 107 MEQ/L (98-107); CK-MB VALUE MASS 1.1 NG/ML (<3.6); CREATININE FOR GFR 0.87 MG/DL (0.55-1.30); GLOMERULAR FILTRATION RATE > 60.0 (>51); GLUCOSE, FASTING 117 MG/DL (70-100); LIPASE 120 U/L (73-393); MB/CK RELATIVE INDEX 2.75 (< OR =4); POTASSIUM SERUM 4.1 MEQ/L (3.5-5.1); SODIUM LEVEL 140 MEQ/L (136-145); TOTAL PROTEIN 6.4 GM/DL (6.4-8.2)
[2021-11-22 16:53] VITALS: BP 107/68
== END 2021-11-22 16:57 | disposition home or self-care (01) ==
LOC: EDBD 12:39 → M ED 12:39
DX: R53.83 Other fatigue (principal); M79.10 Myalgia, unspecified site; D72.829 Elevated white blood cell count, unspecified; M51.9 Unspecified thoracic, thoracolumbar and lumbosacral intervertebral disc disorder; M48.00 Spinal stenosis, site unspecified; M06.9 Rheumatoid arthritis, unspecified; F17.200 Nicotine dependence, unspecified, uncomplicated; F12.10 Cannabis abuse, uncomplicated; Z79.890 Hormone replacement therapy; Z79.899 Other long term (current) drug therapy; Z88.0 Allergy status to penicillin; Z88.2 Allergy status to sulfonamides; Z88.8 Allergy status to other drugs, medicaments and biological substances

== ENCOUNTER 2021-12-05 11:39 | Inpatient (IN) | payer OTHER ==
[~2021-12-05] VITALS: Ht 147.3 cm; Wt 41.2 kg
[2021-12-05 14:13] LABS: BASO # 0.1 10^3/uL (0.0-0.2); BASO % 0.5 % (0.0-1.0); EOS # 0.4 10^3/uL (0.0-0.5); EOS % 2.6 % (0.0-3.0); HEMATOCRIT 36.2 % (36.0-47.0); HEMOGLOBIN 11.1 g/dl (12.0-15.5); LYMPH # 3.7 10^3/uL (1.5-5.0); LYMPH % 25.2 % (24.0-44.0); MEAN CORPUSCULAR HGB CONC 30.7 g/dl (32.0-36.5); MEAN CORPUSCULAR VOLUME 81.5 fl (80.0-96.0); MONO # 1.1 10^3/uL (0.0-0.8); MONO % 7.5 % (2.0-8.0); NEUTROPHILS # 9.4 10^3/uL (1.5-8.5); NEUTROPHILS % 63.8 % (36.0-66.0); PLATELET COUNT, AUTOMATED 530 10^3/uL (150-450); RED BLOOD COUNT 4.44 10^6/uL (4.00-5.40); WHITE BLOOD COUNT 14.8 10^3/uL (4.0-10.0)
[2021-12-05 14:47] LABS: ERYTHROCYTE SEDIMENTATION RATE 37 mm/hr (0-30)
[2021-12-05] MEDS ORDERED: ACETAMINOPHEN 500 MG TAB PO ONE (15:50)
[2021-12-05] MEDS ORDERED: ONDANSETRON 4MG ORAL DISINTEGRATING TAB PO ONE (15:50)
[2021-12-05 19:22] LABS: AMPHETAMINES LEVEL URINE NEGATIVE (NEGATIVE); BARBITURATES URINE NEGATIVE (NEGATIVE); BENZODIAZEPINES URINE NEGATIVE (NEGATIVE); CANNABINOIDS URINE POSITIVE (NEGATIVE); COCAINE METABOLITE URINE NEGATIVE (NEGATIVE); METHADONE URINE NEGATIVE (NEGATIVE); OPIATES URINE NEGATIVE (NEGATIVE); PHENCYCLIDINE URINE NEGATIVE (NEGATIVE)
[2021-12-05 19:25] LABS: ACETAMINOPHEN LEVEL 18.5 UG/ML (10.0-30.0); BLOOD UREA NITROGEN 14 MG/DL (7-18); CALCIUM LEVEL 9.5 MG/DL (8.5-10.1); CARBON DIOXIDE LEVEL 29 MEQ/L (21-32); CHLORIDE LEVEL 104 MEQ/L (98-107); CREATININE FOR GFR 0.92 MG/DL (0.55-1.30); ETHYL ALCOHOL (ETHANOL) 0.004 % (0.000-0.010); GLOMERULAR FILTRATION RATE > 60.0 (>51); GLUCOSE, FASTING 153 MG/DL (70-100); POTASSIUM SERUM 4.4 MEQ/L (3.5-5.1); SODIUM LEVEL 138 MEQ/L (136-145)
[2021-12-05] MEDS ORDERED: DOXYCYCLINE HYCLATE 100MG TABLET PO ONE (20:55)
[2021-12-05] MEDS ORDERED: ASPI81CH33 PO (22:25)
[2021-12-05] MEDS ORDERED: OLAN7.5T8 PO (22:25)
[2021-12-05] MEDS ORDERED: VENL150C43 PO (22:25)
[2021-12-05] MEDS ORDERED: PANT40TA29 PO (22:25)
[2021-12-05] MEDS ORDERED: MED REC COMMENT (22:26)
[2021-12-05] MEDS ORDERED: HOME MED LIST COMPLETE! XX SCH (22:30)
[2021-12-06 00:59] LABS: RSV AMPLIFICATION NEGATIVE (NEGATIVE)
[2021-12-06] MEDS ORDERED: MAALOX 30 ML SUSP *UDC PO PRN (05:05)
[2021-12-06] MEDS ORDERED: HYDROCORTISONE 1% CREAM 30 GM TOP PRN (05:05)
[2021-12-06 05:36] VITALS: BP 125/82
[2021-12-06] MEDS: NICOTINE 21MG/24HR 1 EA TRANSDERMAL TD SCH (08:37)
[2021-12-06] MEDS: ACETAMINOPHEN TAB 650MG DOSE (2X325MG) PO PRN (08:38)
[2021-12-06] MEDS: PANTOPRAZOLE 40MG TAB (PROTONIX) PO SCH (08:38)
[2021-12-06] MEDS: predniSONE 5 MG TAB PO SCH (08:38)
[2021-12-06] MEDS: ASPIRIN 81 MG CHEW TABLET PO SCH (08:38)
[2021-12-06] MEDS: GABAPENTIN 300 MG CAP PO SCH ×3 (08:38→22:04)
[2021-12-06] MEDS: VENLAFAXINE **XR** 75MG CAPSULE PO SCH (08:39)
[2021-12-06] MEDS: busPIRone 10 MG TAB PO SCH ×3 (08:39→22:04)
[2021-12-06] MEDS: DOXYCYCLINE HYCLATE 100MG TABLET PO SCH ×2 (13:10→22:04)
[2021-12-06 16:25] VITALS: BP 131/90
[2021-12-06] MEDS: PRAZOSIN 1 MG CAP PO SCH (22:04)
[2021-12-06] MEDS: OLANZapine 2.5MG TABLET PO SCH (22:04)
[2021-12-06] MEDS: SENOKOT S TAB PO SCH (22:04)
[2021-12-07] MEDS: ACETAMINOPHEN TAB 650MG DOSE (2X325MG) PO PRN ×2 (06:21→22:49)
[2021-12-07 06:38] VITALS: BP 129/75
[2021-12-07] MEDS: ASPIRIN 81 MG CHEW TABLET PO SCH (07:49)
[2021-12-07] MEDS: DOXYCYCLINE HYCLATE 100MG TABLET PO SCH ×3 (07:49→22:26)
[2021-12-07] MEDS: predniSONE 5 MG TAB PO SCH (07:49)
[2021-12-07] MEDS: PANTOPRAZOLE 40MG TAB (PROTONIX) PO SCH (07:49)
[2021-12-07] MEDS: VENLAFAXINE **XR** 75MG CAPSULE PO SCH (07:49)
[2021-12-07] MEDS: GABAPENTIN 300 MG CAP PO SCH ×4 (07:49→22:26)
[2021-12-07] MEDS: NICOTINE 21MG/24HR 1 EA TRANSDERMAL TD SCH (07:49)
[2021-12-07] MEDS: busPIRone 10 MG TAB PO SCH ×4 (07:49→22:26)
[2021-12-07] MEDS: OLANZapine ORAL DISINTEGRATING TAB 5MG PO PRN ×2 (09:57→15:41)
[2021-12-07 16:25] VITALS: BP 117/78
[2021-12-07] MEDS: PRAZOSIN 1 MG CAP PO SCH ×2 (21:00→22:26)
[2021-12-07] MEDS: SENOKOT S TAB PO SCH ×2 (21:00→22:26)
[2021-12-07] MEDS: OLANZapine 2.5MG TABLET PO SCH ×2 (21:00→23:23)
[2021-12-07] MEDS: MOM 30ML SUSPENSION UDC PO PRN (21:08)
[2021-12-08 06:47] VITALS: BP 140/90
[2021-12-08] MEDS: busPIRone 10 MG TAB PO SCH ×3 (07:33→21:07)
[2021-12-08] MEDS: VENLAFAXINE **XR** 75MG CAPSULE PO SCH (07:33)
[2021-12-08] MEDS: DOXYCYCLINE HYCLATE 100MG TABLET PO SCH ×2 (07:33→21:07)
[2021-12-08] MEDS: predniSONE 5 MG TAB PO SCH (07:33)
[2021-12-08] MEDS: PANTOPRAZOLE 40MG TAB (PROTONIX) PO SCH (07:33)
[2021-12-08] MEDS: ASPIRIN 81 MG CHEW TABLET PO SCH (07:33)
[2021-12-08] MEDS: GABAPENTIN 300 MG CAP PO SCH ×3 (07:34→21:07)
[2021-12-08] MEDS: NICOTINE 21MG/24HR 1 EA TRANSDERMAL TD SCH (07:34)
[2021-12-08 08:49] LABS: ALBUMIN 3.5 GM/DL (3.2-5.2); BILIRUBIN,DIRECT 0.1 MG/DL (0.0-0.2); BILIRUBIN,TOTAL 0.4 MG/DL (0.2-1.0); CHOLESTEROL RISK RATIO 2.674 (<5); TOTAL PROTEIN 7.7 GM/DL (6.4-8.2)
[2021-12-08] MEDS: OLANZapine ORAL DISINTEGRATING TAB 5MG PO PRN (11:56)
[2021-12-08] MEDS: ACETAMINOPHEN TAB 650MG DOSE (2X325MG) PO PRN (11:56)
[2021-12-08 18:00] VITALS: BP 130/77
[2021-12-08] MEDS: OLANZapine 10 MG TAB PO SCH ×2 (21:00→22:03)
[2021-12-08] MEDS: SENOKOT S TAB PO SCH (21:07)
[2021-12-08] MEDS: PRAZOSIN 1 MG CAP PO SCH (21:07)
[2021-12-08] MEDS: BUPRENORPHINE/NALOXONE 8-2MG SUBLINGUAL TABLET(SUBOXONE) SL SCH (21:09)
[2021-12-09 02:55] VITALS: BP 136/83
[2021-12-09 06:42] VITALS: BP 123/80
[2021-12-09] MEDS: NICOTINE 21MG/24HR 1 EA TRANSDERMAL TD SCH (09:36)
[2021-12-09] MEDS: DOXYCYCLINE HYCLATE 100MG TABLET PO SCH ×2 (09:36→21:23)
[2021-12-09] MEDS: predniSONE 5 MG TAB PO SCH (09:36)
[2021-12-09] MEDS: GABAPENTIN 300 MG CAP PO SCH ×3 (09:36→21:23)
[2021-12-09] MEDS: busPIRone 10 MG TAB PO SCH ×3 (09:37→21:24)
[2021-12-09] MEDS: ASPIRIN 81 MG CHEW TABLET PO SCH (09:37)
[2021-12-09] MEDS: VENLAFAXINE **XR** 75MG CAPSULE PO SCH (09:37)
[2021-12-09] MEDS: PANTOPRAZOLE 40MG TAB (PROTONIX) PO SCH (09:37)
[2021-12-09] MEDS: BUPRENORPHINE/NALOXONE 8-2MG SUBLINGUAL TABLET(SUBOXONE) SL SCH ×2 (09:37→21:24)
[2021-12-09] MEDS: ACETAMINOPHEN TAB 650MG DOSE (2X325MG) PO PRN (11:33)
[2021-12-09 18:40] VITALS: BP 136/78
[2021-12-09] MEDS: OLANZapine 10 MG TAB PO SCH (21:24)
[2021-12-09] MEDS: SENOKOT S TAB PO SCH (21:24)
[2021-12-09] MEDS: PRAZOSIN 1 MG CAP PO SCH (21:25)
[2021-12-10 07:05] VITALS: BP 124/88
[2021-12-10] MEDS: BUPRENORPHINE/NALOXONE 8-2MG SUBLINGUAL TABLET(SUBOXONE) SL SCH ×2 (09:47→20:55)
[2021-12-10] MEDS: NICOTINE 21MG/24HR 1 EA TRANSDERMAL TD SCH (09:47)
[2021-12-10] MEDS: ASPIRIN 81 MG CHEW TABLET PO SCH (09:47)
[2021-12-10] MEDS: VENLAFAXINE **XR** 75MG CAPSULE PO SCH (09:47)
[2021-12-10] MEDS: GABAPENTIN 300 MG CAP PO SCH ×3 (09:48→20:55)
[2021-12-10] MEDS: busPIRone 10 MG TAB PO SCH ×3 (09:48→20:55)
[2021-12-10] MEDS: PANTOPRAZOLE 40MG TAB (PROTONIX) PO SCH (09:48)
[2021-12-10] MEDS: predniSONE 5 MG TAB PO SCH (09:48)
[2021-12-10] MEDS: DOXYCYCLINE HYCLATE 100MG TABLET PO SCH ×2 (09:48→20:55)
[2021-12-10] MEDS: ACETAMINOPHEN TAB 650MG DOSE (2X325MG) PO PRN ×2 (14:49→22:55)
[2021-12-10] MEDS: OLANZapine ORAL DISINTEGRATING TAB 5MG PO PRN (15:03)
[2021-12-10 15:10] LABS: HEMATOCRIT 35.3 % (36.0-47.0); HEMOGLOBIN 10.7 g/dl (12.0-15.5); MEAN CORPUSCULAR HEMOGLOBIN 25.6 pg (27.0-33.0); MEAN CORPUSCULAR HGB CONC 30.3 g/dl (32.0-36.5); MEAN CORPUSCULAR VOLUME 84.4 fl (80.0-96.0); PLATELET COUNT, AUTOMATED 443 10^3/uL (150-450); RED BLOOD COUNT 4.18 10^6/uL (4.00-5.40); WHITE BLOOD COUNT 12.7 10^3/uL (4.0-10.0)
[2021-12-10 15:38] LABS: HEMOGLOBIN A1c 5.6 %
[2021-12-10 18:21] VITALS: BP 134/87
[2021-12-10] MEDS: SENOKOT S TAB PO SCH (20:55)
[2021-12-10] MEDS: OLANZapine 10 MG TAB PO SCH (20:55)
[2021-12-10] MEDS: PRAZOSIN 1 MG CAP PO SCH (20:55)
[2021-12-10] MEDS: traZODone 50 MG TAB PO PRN (22:54)
[2021-12-11 06:44] VITALS: BP 112/82
[2021-12-11] MEDS: ACETAMINOPHEN TAB 650MG DOSE (2X325MG) PO PRN ×3 (06:59→20:15)
[2021-12-11] MEDS: predniSONE 5 MG TAB PO SCH (08:23)
[2021-12-11] MEDS: VENLAFAXINE **XR** 75MG CAPSULE PO SCH (08:23)
[2021-12-11] MEDS: ASPIRIN 81 MG CHEW TABLET PO SCH (08:23)
[2021-12-11] MEDS: GABAPENTIN 300 MG CAP PO SCH ×3 (08:23→20:14)
[2021-12-11] MEDS: PANTOPRAZOLE 40MG TAB (PROTONIX) PO SCH (08:23)
[2021-12-11] MEDS: busPIRone 10 MG TAB PO SCH ×3 (08:23→20:14)
[2021-12-11] MEDS: NICOTINE 21MG/24HR 1 EA TRANSDERMAL TD SCH (08:24)
[2021-12-11] MEDS: OLANZapine ORAL DISINTEGRATING TAB 5MG PO PRN (08:25)
[2021-12-11] MEDS: BUPRENORPHINE/NALOXONE 8-2MG SUBLINGUAL TABLET(SUBOXONE) SL SCH ×2 (09:10→20:14)
[2021-12-11] MEDS: OLANZapine 2.5MG TABLET PO SCH ×2 (11:41→20:14)
[2021-12-11 18:04] VITALS: BP 125/74
[2021-12-11] MEDS: SENOKOT S TAB PO SCH (20:14)
[2021-12-11] MEDS: PRAZOSIN 1 MG CAP PO SCH (20:14)
[2021-12-12] MEDS: ACETAMINOPHEN TAB 650MG DOSE (2X325MG) PO PRN ×2 (05:30→19:28)
[2021-12-12 06:20] VITALS: BP 133/93
[2021-12-12] MEDS: GABAPENTIN 300 MG CAP PO SCH ×3 (08:28→20:55)
[2021-12-12] MEDS: ASPIRIN 81 MG CHEW TABLET PO SCH (08:28)
[2021-12-12] MEDS: NICOTINE 21MG/24HR 1 EA TRANSDERMAL TD SCH (08:28)
[2021-12-12] MEDS: predniSONE 5 MG TAB PO SCH (08:28)
[2021-12-12] MEDS: BUPRENORPHINE/NALOXONE 8-2MG SUBLINGUAL TABLET(SUBOXONE) SL SCH ×2 (08:28→20:55)
[2021-12-12] MEDS: VENLAFAXINE **XR** 75MG CAPSULE PO SCH (08:28)
[2021-12-12] MEDS: PANTOPRAZOLE 40MG TAB (PROTONIX) PO SCH (08:28)
[2021-12-12] MEDS: busPIRone 10 MG TAB PO SCH ×3 (08:28→20:55)
[2021-12-12] MEDS: OLANZapine 2.5MG TABLET PO SCH ×2 (08:28→20:55)
[2021-12-12 14:12] LABS: BASO # 0.1 10^3/uL (0.0-0.2); BASO % 0.5 % (0.0-1.0); EOS % 0.2 % (0.0-3.0); HEMATOCRIT 34.4 % (36.0-47.0); HEMOGLOBIN 10.6 g/dl (12.0-15.5); LYMPH % 7.5 % (24.0-44.0); MEAN CORPUSCULAR HEMOGLOBIN 25.7 pg (27.0-33.0); MEAN CORPUSCULAR HGB CONC 30.8 g/dl (32.0-36.5); MEAN CORPUSCULAR VOLUME 83.5 fl (80.0-96.0); MONO # 0.5 10^3/uL (0.0-0.8); MONO % 4.2 % (2.0-8.0); NEUTROPHILS # 11.1 10^3/uL (1.5-8.5); NEUTROPHILS % 87.3 % (36.0-66.0); PLATELET COUNT, AUTOMATED 422 10^3/uL (150-450); RED BLOOD COUNT 4.12 10^6/uL (4.00-5.40); WHITE BLOOD COUNT 12.7 10^3/uL (4.0-10.0)
[2021-12-12] MEDS: IBUPROFEN 600MG TAB PO PRN (14:43)
[2021-12-12] MEDS: OLANZapine ORAL DISINTEGRATING TAB 5MG PO PRN (16:10)
[2021-12-12 18:07] VITALS: BP 135/89
[2021-12-12] MEDS: traZODone 50 MG TAB PO PRN (20:55)
[2021-12-12] MEDS: PRAZOSIN 1 MG CAP PO SCH (20:55)
[2021-12-12] MEDS: SENOKOT S TAB PO SCH (20:55)
[2021-12-12] MEDS: DICLOFENAC EPOLAMINE 1.3 % PATCH TOP SCH (20:55)
[2021-12-13 06:49] VITALS: BP 121/81
[2021-12-13] MEDS: IBUPROFEN 600MG TAB PO PRN ×2 (06:52→15:36)
[2021-12-13] MEDS: GABAPENTIN 300 MG CAP PO SCH ×3 (08:38→20:35)
[2021-12-13] MEDS: ASPIRIN 81 MG CHEW TABLET PO SCH (08:38)
[2021-12-13] MEDS: predniSONE 5 MG TAB PO SCH (08:38)
[2021-12-13] MEDS: VENLAFAXINE **XR** 75MG CAPSULE PO SCH (08:38)
[2021-12-13] MEDS: busPIRone 10 MG TAB PO SCH ×3 (08:38→20:35)
[2021-12-13] MEDS: OLANZapine 2.5MG TABLET PO SCH ×2 (08:38→20:34)
[2021-12-13] MEDS: PANTOPRAZOLE 40MG TAB (PROTONIX) PO SCH (08:39)
[2021-12-13] MEDS: NICOTINE 21MG/24HR 1 EA TRANSDERMAL TD SCH (08:39)
[2021-12-13] MEDS: BUPRENORPHINE/NALOXONE 8-2MG SUBLINGUAL TABLET(SUBOXONE) SL SCH ×2 (08:39→20:36)
[2021-12-13] MEDS: DICLOFENAC EPOLAMINE 1.3 % PATCH TOP SCH ×2 (08:40→20:33)
[2021-12-13] MEDS: OLANZapine ORAL DISINTEGRATING TAB 5MG PO PRN (12:31)
[2021-12-13] MEDS: MOM 30ML SUSPENSION UDC PO PRN (17:03)
[2021-12-13 18:23] VITALS: BP 111/67
[2021-12-13] MEDS: SENOKOT S TAB PO SCH (20:34)
[2021-12-13] MEDS: traZODone 50 MG TAB PO PRN (20:34)
[2021-12-13] MEDS: PRAZOSIN 1 MG CAP PO SCH (20:35)
[2021-12-14 07:03] VITALS: BP 127/79
[2021-12-14] MEDS: DICLOFENAC EPOLAMINE 1.3 % PATCH TOP SCH ×2 (08:31→20:39)
[2021-12-14] MEDS: GABAPENTIN 300 MG CAP PO SCH ×3 (08:31→20:40)
[2021-12-14] MEDS: ASPIRIN 81 MG CHEW TABLET PO SCH (08:31)
[2021-12-14] MEDS: PANTOPRAZOLE 40MG TAB (PROTONIX) PO SCH (08:32)
[2021-12-14] MEDS: busPIRone 10 MG TAB PO SCH ×3 (08:32→20:40)
[2021-12-14] MEDS: OLANZapine 2.5MG TABLET PO SCH ×2 (08:32→20:40)
[2021-12-14] MEDS: predniSONE 5 MG TAB PO SCH (08:32)
[2021-12-14] MEDS: NICOTINE 21MG/24HR 1 EA TRANSDERMAL TD SCH (08:32)
[2021-12-14] MEDS: IBUPROFEN 600MG TAB PO PRN ×2 (08:32→17:07)
[2021-12-14] MEDS: VENLAFAXINE **XR** 75MG CAPSULE PO SCH (08:32)
[2021-12-14] MEDS: BUPRENORPHINE/NALOXONE 8-2MG SUBLINGUAL TABLET(SUBOXONE) SL SCH ×2 (08:33→21:13)
[2021-12-14 18:00] VITALS: BP 132/88
[2021-12-14] MEDS: traZODone 50 MG TAB PO PRN (20:40)
[2021-12-14] MEDS: SENOKOT S TAB PO SCH (20:40)
[2021-12-14] MEDS: PRAZOSIN 1 MG CAP PO SCH (20:40)
[2021-12-15 07:10] VITALS: BP 127/83
[2021-12-15] MEDS: predniSONE 5 MG TAB PO SCH (09:15)
[2021-12-15] MEDS: GABAPENTIN 300 MG CAP PO SCH ×3 (09:15→20:34)
[2021-12-15] MEDS: ASPIRIN 81 MG CHEW TABLET PO SCH (09:15)
[2021-12-15] MEDS: OLANZapine 2.5MG TABLET PO SCH ×2 (09:15→20:34)
[2021-12-15] MEDS: PANTOPRAZOLE 40MG TAB (PROTONIX) PO SCH (09:15)
[2021-12-15] MEDS: VENLAFAXINE **XR** 75MG CAPSULE PO SCH (09:15)
[2021-12-15] MEDS: NICOTINE 21MG/24HR 1 EA TRANSDERMAL TD SCH (09:15)
[2021-12-15] MEDS: busPIRone 10 MG TAB PO SCH ×3 (09:15→20:34)
[2021-12-15] MEDS: DICLOFENAC EPOLAMINE 1.3 % PATCH TOP SCH ×2 (09:16→20:34)
[2021-12-15] MEDS: IBUPROFEN 600MG TAB PO PRN ×2 (09:19→18:08)
[2021-12-15] MEDS: BUPRENORPHINE/NALOXONE 8-2MG SUBLINGUAL TABLET(SUBOXONE) SL SCH ×2 (10:30→20:34)
[2021-12-15 16:21] VITALS: BP 123/75
[2021-12-15 20:34] VITALS: BP 115/77
[2021-12-15] MEDS: PRAZOSIN 1 MG CAP PO SCH (20:34)
[2021-12-15] MEDS: SENOKOT S TAB PO SCH (20:34)
[2021-12-15] MEDS: MOM 30ML SUSPENSION UDC PO PRN (20:35)
[2021-12-16 06:38] VITALS: BP 135/84
[2021-12-16] MEDS: PANTOPRAZOLE 40MG TAB (PROTONIX) PO SCH (08:02)
[2021-12-16] MEDS: NICOTINE 21MG/24HR 1 EA TRANSDERMAL TD SCH (08:02)
[2021-12-16] MEDS: DICLOFENAC EPOLAMINE 1.3 % PATCH TOP SCH (08:02)
[2021-12-16] MEDS: ASPIRIN 81 MG CHEW TABLET PO SCH (08:03)
[2021-12-16] MEDS: busPIRone 10 MG TAB PO SCH (08:03)
[2021-12-16] MEDS: IBUPROFEN 600MG TAB PO PRN (08:03)
[2021-12-16] MEDS: predniSONE 5 MG TAB PO SCH (08:03)
[2021-12-16] MEDS: OLANZapine 2.5MG TABLET PO SCH (08:03)
[2021-12-16] MEDS: VENLAFAXINE **XR** 75MG CAPSULE PO SCH (08:03)
[2021-12-16] MEDS: BUPRENORPHINE/NALOXONE 8-2MG SUBLINGUAL TABLET(SUBOXONE) SL SCH (08:03)
[2021-12-16] MEDS: GABAPENTIN 300 MG CAP PO SCH (08:03)
[2021-12-16] MEDS ORDERED: TRAZ-252 PO (09:35)
[2021-12-16] MEDS ORDERED: NICO21PAT TD (09:35)
[2021-12-16] MEDS ORDERED: OLAN5ZYD PO (09:35)
[2021-12-16] MEDS ORDERED: DICL1GEL3 TOP (09:35)
[2021-12-16] MEDS ORDERED: OLAN7.5T8 PO ×2 (09:35→09:36)
[2021-12-16] MEDS ORDERED: BUSP10TA PO (09:35)
[2021-12-16] MEDS ORDERED: NALO4SPR NS (09:35)
[2021-12-16] MEDS ORDERED: VENL75CA47 PO (09:35)
== END 2021-12-16 12:36 | disposition home or self-care (01) | DRG 755 ==
LOC: M ED 11:39 → M ED INP 12-06 05:01 → M PSY 12-06 05:49
PROVIDERS: ADMIT Student in an Organized Health Care Education/Training Program; ATTEND Student in an Organized Health Care Education/Training Program
DX: F43.10 Post-traumatic stress disorder, unspecified (principal); F25.0 Schizoaffective disorder, bipolar type; F41.1 Generalized anxiety disorder; F11.91 Opioid use, unspecified, in remission; M06.9 Rheumatoid arthritis, unspecified; I73.00 Raynaud's syndrome without gangrene; G89.29 Other chronic pain; K21.9 Gastro-esophageal reflux disease without esophagitis; B18.2 Chronic viral hepatitis C; F17.210 Nicotine dependence, cigarettes, uncomplicated; L03.114 Cellulitis of left upper limb; D72.829 Elevated white blood cell count, unspecified; Z79.82 Long term (current) use of aspirin; Z79.890 Hormone replacement therapy; Z79.52 Long term (current) use of systemic steroids; Z79.899 Other long term (current) drug therapy; Z88.0 Allergy status to penicillin; Z88.1 Allergy status to other antibiotic agents; Z88.2 Allergy status to sulfonamides; Z88.8 Allergy status to other drugs, medicaments and biological substances; Z20.822 Contact with and (suspected) exposure to COVID-19; Z91.51 Personal history of suicidal behavior; Z56.0 Unemployment, unspecified; Z62.810 Personal history of physical and sexual abuse in childhood; Z62.811 Personal history of psychological abuse in childhood; S00.93XA Contusion of unspecified part of head, initial encounter; W06.XXXA Fall from bed, initial encounter; Y92.230 Patient room in hospital as the place of occurrence of the external cause; G93.40 Encephalopathy, unspecified; F16.94 Hallucinogen use, unspecified with hallucinogen-induced mood disorder

== ENCOUNTER 2023-08-02 09:59 | Inpatient (IN) | payer MEDICARE, MEDICAID ==
[~2023-08-02] VITALS: Ht 147.3 cm; Wt 68.2 kg
[~2023-08-02 09:59] MED LIST changes: +ACET-897 PO; +ALBU8.5H INH; -ASPI-161 PO; +ASPI-615 PO; +ASPI81CH33 PO; +AZIT-12 PO; +BENZ-18 PO; +CEFD1CAP9 PO; -CEFD300C41 PO; +DICL100G10 TD; +DICL100G10 TOP; -DICL1GEL3 TD; -DICL1GEL3 TOP; +DICY-61 PO; -DICY10CA13 PO; -DOXY-350 PO; +DOXY-440 PO; -EFFE150C2 PO; +EFFE150C3 PO; -GABA-283 PO; +GABA-284 PO; +GABA600T4 PO; -HYDR-3782 PO; -HYDR200T3 PO; +HYDR200T46 PO; +IBUP200C25 PO; -MIRA1POW3 PO; +MIRA33506 PO; -MIRT-60 PO; -MIRT-62 PO; +MIRT-88 PO; +MIRT-89 PO; -NALO4SPR NS; +NALO4SPR3 NS; +NITR100C3 PO; -NITR1CAP11 PO; +OLAN1TAB20 PO; +OLAN20TA14 PO; +OLAN5ZYD PO; +OLAN7.5T8 PO; +OMEP-173 PO; +ONDA-284 PO; -ONDA8TAB8 PO; +OXYB-54 PO; +PANT40TA29 PO; +RISATAB3 PO; +RISP-105 PO; +RISP-106 PO; -RISP-8 PO; -RISP-9 PO; -SENN1TAB41 PO; +SENN1TAB85 PO; +SUBL300I INJ; +TRAZ-252 PO; +VENL225T32 PO; +[UNRECOGNIZED DRUG - CODE] PO
[2023-08-02] MEDS: KETOROLAC 30 MG/ML 1ML VIAL IV ONE (11:30)
[2023-08-02 11:33] LABS: VENOUS BASE EXCESS 0.6 (-2.0-2.0); VENOUS HCO3 25.4 MMOL/L (23.0-27.0); VENOUS O2 SATURATION 78.7 % (60.0-80.0); VENOUS PARTIAL PRESSURE CO2 41.6 mmHg (38.0-50.0); VENOUS PARTIAL PRESSURE O2 46.6 mmHg (30.0-50.0); VENOUS PH 7.404 UNITS (7.330-7.430); VENOUS STANDARD HCO3 24.7 MMOL/L; VENOUS TOTAL CO2 26.7 MMOL/L (24.0-28.0)
[2023-08-02 11:41] LABS: BASO # 0.1 10^3/uL (0.0-0.2); BASO % 0.3 % (0.0-1.0); EOS # 0.1 10^3/uL (0.0-0.5); EOS % 0.3 % (0.0-3.0); HEMATOCRIT 29.6 % (36.0-47.0); HEMOGLOBIN 9.1 g/dl (12.0-15.5); LYMPH # 1.1 10^3/uL (1.5-5.0); LYMPH % 4.8 % (24.0-44.0); MEAN CORPUSCULAR HEMOGLOBIN 22.8 pg (27.0-33.0); MEAN CORPUSCULAR HGB CONC 30.7 g/dl (32.0-36.5); MEAN CORPUSCULAR VOLUME 74.2 fl (80.0-96.0); MONO # 1.2 10^3/uL (0.0-0.8); MONO % 5.3 % (2.0-8.0); NEUTROPHILS # 20.2 10^3/uL (1.5-8.5); NEUTROPHILS % 87.7 % (36.0-66.0); PLATELET COUNT, AUTOMATED 784 10^3/uL (150-450); RED BLOOD COUNT 3.99 10^6/uL (4.00-5.40)
[2023-08-02 12:00] LABS: CK-MB VALUE MASS < 1.0 NG/ML (<3.6)
[2023-08-02 12:02] LABS: ALBUMIN 1.9 G/DL (3.2-5.2); ALKALINE PHOSPHATASE 120 U/L (46-116); ALT/SGPT 27 U/L (7.0-40); AST/SGOT 23 U/L (<34); BILIRUBIN,DIRECT 0.1 MG/DL (<0.4); BILIRUBIN,TOTAL 0.3 MG/DL (0.3-1.2); BLOOD UREA NITROGEN 23 MG/DL (9-23); CALCIUM LEVEL 8.6 MG/DL (8.5-10.1); CARBON DIOXIDE LEVEL 27 MMOL/L (20-31); CHLORIDE LEVEL 102 MMOL/L (98-107); CPK CREATINE PHOSPHOKINASE 28 U/L (34-145); CREATININE FOR GFR 0.98 MG/DL (0.55-1.30); GLOMERULAR FILTRATION RATE > 60.0 (>51); GLUCOSE, FASTING 127 MG/DL (60-100); MB/CK RELATIVE INDEX 3.57 (< OR =4); POTASSIUM SERUM 4.1 MMOL/L (3.5-5.1); SODIUM LEVEL 135 MMOL/L (136-145); TOTAL PROTEIN 7.2 G/DL (5.7-8.2)
[2023-08-02] MEDS ORDERED: ISOVUE-370 76% 100ML VIAL As Ordered ONE (13:18)
[2023-08-02] MEDS ORDERED: DOXY100T PO (13:35)
[2023-08-02] MEDS ORDERED: ASPI81TA26 PO (13:35)
[2023-08-02] MEDS ORDERED: SENN1TAB85 PO (13:35)
[2023-08-02] MEDS ORDERED: HOME MED LIST COMPLETE! XX SCH (13:35)
[2023-08-02] MEDS ORDERED: RISATAB3 PO (13:35)
[2023-08-02] MEDS ORDERED: MAALOX 30 ML SUSP *UDC PO PRN (15:55)
[2023-08-02 17:37] VITALS: BP 120/73; TEMP 96.6; O2SAT 91
[2023-08-02] MEDS ORDERED: ALBUTEROL 90 MCG/ACT 8GM HFA INHALER INH PRN (17:55)
[2023-08-02] MEDS: CEFTAROLINE FOSAMIL 600 MG in D5W MINI-BAG PLUS 50 ML IV SCH (18:04)
[2023-08-02] MEDS: ACETAMINOPHEN TAB 650MG DOSE (2X325MG) PO PRN (18:04)
[2023-08-02 18:24] LABS: PROCALCITONIN 0.25 ng/ml
[2023-08-02 18:46] VITALS: BP 104/68; TEMP 97.6; O2SAT 96
[2023-08-02 20:02] VITALS: BP 103/62; TEMP 97.5; O2SAT 94
[2023-08-02] MEDS: QUEtiapine FUMARATE 200 MG TAB PO SCH (21:39)
[2023-08-02] MEDS: GABAPENTIN 300 MG CAP PO SCH (21:39)
[2023-08-02] MEDS: LACTOBACILLUS ACIDOPHILUS CAP (BACID) PO SCH (21:39)
[2023-08-02] MEDS: SENOKOT S TAB PO SCH (21:39)
[2023-08-02] MEDS: OLANZapine 10 MG TAB PO SCH (21:39)
[2023-08-02] MEDS: PRAZOSIN 1 MG CAP PO SCH (21:40)
[2023-08-02] MEDS: KETOROLAC 30 MG/ML 1ML VIAL IV PRN (21:41)
[2023-08-02] MEDS: BUPRENORPHINE/NALOXONE 8-2MG SUBLINGUAL TABLET(SUBOXONE) SL SCH (21:52)
[2023-08-02 23:22] VITALS: BP 121/73; TEMP 97.8; O2SAT 95
[2023-08-03] VITALS (22 sets, daily range): BP systolic 101–126; BP diastolic 58–70; TEMP 97.5–98.4; O2SAT 91–97
[2023-08-03 00:10] LABS: LDH LACTATE DEHYDROGENASE 256 U/L (120-246)
[2023-08-03 06:35] LABS: BASO # 0.1 10^3/uL (0.0-0.2); BASO % 0.4 % (0.0-1.0); EOS # 0.2 10^3/uL (0.0-0.5); EOS % 1.2 % (0.0-3.0); HEMATOCRIT 25.4 % (36.0-47.0); HEMOGLOBIN 7.9 g/dl (12.0-15.5); LYMPH # 1.8 10^3/uL (1.5-5.0); LYMPH % 12.7 % (24.0-44.0); MEAN CORPUSCULAR HEMOGLOBIN 23.4 pg (27.0-33.0); MEAN CORPUSCULAR HGB CONC 31.1 g/dl (32.0-36.5); MEAN CORPUSCULAR VOLUME 75.1 fl (80.0-96.0); MONO # 1.2 10^3/uL (0.0-0.8); MONO % 8.3 % (2.0-8.0); NEUTROPHILS # 10.8 10^3/uL (1.5-8.5); NEUTROPHILS % 76.1 % (36.0-66.0); RED BLOOD COUNT 3.38 10^6/uL (4.00-5.40); WHITE BLOOD COUNT 14.2 10^3/uL (4.0-10.0)
[2023-08-03 06:45] LABS: PLATELET COUNT, AUTOMATED 658 10^3/uL (150-450)
[2023-08-03 06:46] LABS: BLOOD UREA NITROGEN 23 MG/DL (9-23); CALCIUM LEVEL 8.1 MG/DL (8.5-10.1); CARBON DIOXIDE LEVEL 28 MMOL/L (20-31); CHLORIDE LEVEL 102 MMOL/L (98-107); CREATININE FOR GFR 0.91 MG/DL (0.55-1.30); GLOMERULAR FILTRATION RATE > 60.0 (>51); GLUCOSE, FASTING 90 MG/DL (60-100); POTASSIUM SERUM 4.5 MMOL/L (3.5-5.1); SODIUM LEVEL 136 MMOL/L (136-145)
[2023-08-03] MEDS: ASPIRIN 81MG ENTERIC TABLET PO SCH (08:15)
[2023-08-03] MEDS: OLANZapine 10 MG TAB PO SCH (08:15)
[2023-08-03] MEDS: OMEPRAZOLE 20MG CAP PO SCH (08:15)
[2023-08-03] MEDS: MIRALAX *UNIT DOSE* 17GM PACKET PO SCH (08:15)
[2023-08-03] MEDS: QUEtiapine FUMARATE 50MG TAB PO SCH (08:16)
[2023-08-03] MEDS: predniSONE 10MG TAB PO SCH (08:16)
[2023-08-03] MEDS ORDERED: LIDOCAINE 1% MDV 20ML VIAL As Ordered ONE (10:41)
[2023-08-03 12:23] LABS: APPEARANCE, BODY FLUID TURBID (CLEAR); SOURCE, BODY FLUID PLEURAL
[2023-08-03 12:27] LABS: SOURCE, BODY FLUID ALBUMIN PLEURAL
[2023-08-03 12:32] LABS: SOURCE, BODY FLUID TRIG PLEURAL; TRIGLYCERIDE, BODY FLUID 22 MG/DL (NOT ESTABLISHED)
[2023-08-03 12:33] LABS: AMYLASE, BODY FLUID 42 U/L (NOT ESTABLISHED); SOURCE, BODY FLUID AMYLASE PLEURAL
[2023-08-03 12:34] LABS: CHOLESTEROL, BODY FLUID 111 MG/DL (NOT ESTABLISHED); SOURCE, BODY FLUID CHOL PLEURAL; SOURCE, BODY FLUID TOT PROTEIN PLEURAL; TOTAL PROTEIN, BODY FLUID < 2.0 G/DL (NOT ESTABLISHED)
[2023-08-03 12:43] LABS: LDH, BODY FLUID > 750 U/L (NOT ESTABLISHED); SOURCE, BODY FLUID LDH PLEURAL
[2023-08-03 12:45] LABS: SOURCE, BODY FLUID GLUCOSE PLEURAL
[2023-08-03 12:54] LABS: SOURCE, BODY FLUID pH PLEURAL
[2023-08-03] MEDS ORDERED: VANCOMYCIN HCL 1,000 MG, VIAL MATE ADAPTER 1 EACH in D5W 250 ML IV SCH (17:35)
[2023-08-03] MEDS: MEROPENEM INJ 1 GM in IV 1 EA IV SCH (18:41)
[2023-08-03] MEDS: VANCOMYCIN HCL 1,000 MG, VIAL MATE ADAPTER 1 EACH in D5W 250 ML IV ONE (22:21)
[2023-08-03] MEDS ORDERED: DAPTOmycin 500 MG in NS 50 ML IV SCH (23:00)
[2023-08-04] VITALS (36 sets, daily range): BP systolic 109–129; BP diastolic 62–76; TEMP 97.4–98.2; O2SAT 88–97
[2023-08-04 08:06] LABS: BASO % 0.4 % (0.0-1.0); EOS # 0.2 10^3/uL (0.0-0.5); EOS % 1.9 % (0.0-3.0); HEMATOCRIT 27.5 % (36.0-47.0); HEMOGLOBIN 8.4 g/dl (12.0-15.5); LYMPH # 1.8 10^3/uL (1.5-5.0); LYMPH % 17.8 % (24.0-44.0); MEAN CORPUSCULAR HEMOGLOBIN 23.2 pg (27.0-33.0); MEAN CORPUSCULAR HGB CONC 30.5 g/dl (32.0-36.5); MONO # 0.9 10^3/uL (0.0-0.8); MONO % 8.6 % (2.0-8.0); NEUTROPHILS # 6.9 10^3/uL (1.5-8.5); NEUTROPHILS % 70.2 % (36.0-66.0); PLATELET COUNT, AUTOMATED 672 10^3/uL (150-450); RED BLOOD COUNT 3.62 10^6/uL (4.00-5.40); WHITE BLOOD COUNT 9.9 10^3/uL (4.0-10.0)
[2023-08-04 08:18] LABS: ERYTHROCYTE SEDIMENTATION RATE > 130 mm/hr (0-30)
[2023-08-04 08:25] LABS: C REACTIVE PROTEIN QUANTITATIV 16.9 MG/DL (<1.0)
[2023-08-04 08:26] LABS: CALCIUM LEVEL 8.3 MG/DL (8.5-10.1); CREATININE FOR GFR 1.05 MG/DL (0.55-1.30); GLOMERULAR FILTRATION RATE 58.6 (>51); POTASSIUM SERUM 3.8 MMOL/L (3.5-5.1)
[2023-08-04] MEDS: VANCOMYCIN HCL 1,000 MG, VIAL MATE ADAPTER 1 EACH in D5W 250 ML IV SCH (08:32)
[2023-08-04] MEDS: ENOXAPARIN 40MG/0.4ML SYRINGE (J1650 PER 10MG) SC SCH (08:32)
[2023-08-04 08:38] LABS: PROCALCITONIN 0.17 ng/ml
[2023-08-04] MEDS ORDERED: ENOXAPARIN 40MG/0.4ML SYRINGE (J1650 PER 10MG) SC SCH (09:00)
[2023-08-04] MEDS: ALTEPLASE 2MG/2ML VIAL XX ONE (09:11)
[2023-08-04] MEDS: MOM 30ML SUSPENSION UDC PO PRN (11:21)
[2023-08-05] VITALS (46 sets, daily range): BP systolic 109–147; BP diastolic 58–90; TEMP 97.8–99; O2SAT 88–98
[2023-08-05 07:02] LABS: ALBUMIN 1.5 G/DL (3.2-5.2); ALKALINE PHOSPHATASE 96 U/L (46-116); ALT/SGPT 20 U/L (7.0-40); AST/SGOT 11 U/L (<34); BILIRUBIN,TOTAL 0.2 MG/DL (0.3-1.2); BLOOD UREA NITROGEN 16 MG/DL (9-23); CALCIUM LEVEL 8.4 MG/DL (8.5-10.1); CARBON DIOXIDE LEVEL 29 MMOL/L (20-31); CHLORIDE LEVEL 103 MMOL/L (98-107); CREATININE FOR GFR 0.92 MG/DL (0.55-1.30); GLOMERULAR FILTRATION RATE > 60.0 (>51); GLUCOSE, FASTING 107 MG/DL (60-100); POTASSIUM SERUM 4.2 MMOL/L (3.5-5.1); SODIUM LEVEL 138 MMOL/L (136-145); TOTAL PROTEIN 6.2 G/DL (5.7-8.2)
[2023-08-05 07:11] LABS: BASO % 0.3 % (0.0-1.0); EOS # 0.2 10^3/uL (0.0-0.5); EOS % 1.4 % (0.0-3.0); HEMATOCRIT 27.6 % (36.0-47.0); HEMOGLOBIN 8.3 g/dl (12.0-15.5); LYMPH # 2.1 10^3/uL (1.5-5.0); MEAN CORPUSCULAR HEMOGLOBIN 23.1 pg (27.0-33.0); MEAN CORPUSCULAR HGB CONC 30.1 g/dl (32.0-36.5); MEAN CORPUSCULAR VOLUME 76.9 fl (80.0-96.0); MONO # 1.1 10^3/uL (0.0-0.8); MONO % 9.2 % (2.0-8.0); NEUTROPHILS # 8.8 10^3/uL (1.5-8.5); PLATELET COUNT, AUTOMATED 688 10^3/uL (150-450); RED BLOOD COUNT 3.59 10^6/uL (4.00-5.40); WHITE BLOOD COUNT 12.3 10^3/uL (4.0-10.0)
[2023-08-05] MEDS: VANCOMYCIN HCL 750 MG, VIAL MATE ADAPTER 1 EACH in D5W 250 ML IV SCH (09:25)
[2023-08-05] MEDS ORDERED: SODIUM CHLORIDE 0.9% NASAL GEL 15GM (AYR) PRN (18:35)
[2023-08-05] MEDS: BISACODYL 10MG SUPP PR PRN (20:23)
[2023-08-06] VITALS (31 sets, daily range): BP systolic 109–123; BP diastolic 65–77; TEMP 97.1–98.5; O2SAT 89–98
[2023-08-06 08:35] LABS: BASO % 0.4 % (0.0-1.0); EOS # 0.3 10^3/uL (0.0-0.5); EOS % 3.2 % (0.0-3.0); HEMATOCRIT 25.2 % (36.0-47.0); HEMOGLOBIN 7.6 g/dl (12.0-15.5); LYMPH % 20.4 % (24.0-44.0); MEAN CORPUSCULAR HEMOGLOBIN 23.1 pg (27.0-33.0); MEAN CORPUSCULAR HGB CONC 30.2 g/dl (32.0-36.5); MEAN CORPUSCULAR VOLUME 76.6 fl (80.0-96.0); MONO # 0.9 10^3/uL (0.0-0.8); MONO % 8.9 % (2.0-8.0); NEUTROPHILS # 6.3 10^3/uL (1.5-8.5); NEUTROPHILS % 65.3 % (36.0-66.0); PLATELET COUNT, AUTOMATED 567 10^3/uL (150-450); RED BLOOD COUNT 3.29 10^6/uL (4.00-5.40); WHITE BLOOD COUNT 9.7 10^3/uL (4.0-10.0)
[2023-08-06 09:00] LABS: VANCOMYCIN LEVEL TROUGH 13.9 UG/ML (10.0-20.0)
[2023-08-06 09:01] LABS: ALBUMIN 1.5 G/DL (3.2-5.2); ALKALINE PHOSPHATASE 86 U/L (46-116); ALT/SGPT 22 U/L (7.0-40); AST/SGOT 15 U/L (<34); BILIRUBIN,TOTAL 0.2 MG/DL (0.3-1.2); BLOOD UREA NITROGEN 13 MG/DL (9-23); CALCIUM LEVEL 8.2 MG/DL (8.5-10.1); CARBON DIOXIDE LEVEL 30 MMOL/L (20-31); CHLORIDE LEVEL 104 MMOL/L (98-107); CREATININE FOR GFR 0.82 MG/DL (0.55-1.30); GLOMERULAR FILTRATION RATE > 60.0 (>51); GLUCOSE, FASTING 117 MG/DL (60-100); MAGNESIUM LEVEL 1.9 MG/DL (1.8-2.4); POTASSIUM SERUM 3.8 MMOL/L (3.5-5.1); SODIUM LEVEL 140 MMOL/L (136-145)
[2023-08-06] MEDS ORDERED: [UNRECOGNIZED DRUG - CODE] PO (09:12)
[2023-08-06] MEDS: metroNIDAZOLE (FLAGYL) 500MG TABLET PO SCH (11:49)
[2023-08-07] VITALS (25 sets, daily range): BP systolic 106–136; BP diastolic 72–82; TEMP 96.9–98.1; O2SAT 80–100
[2023-08-07 07:21] LABS: BASO % 0.6 % (0.0-1.0); EOS # 0.3 10^3/uL (0.0-0.5); HEMATOCRIT 25.4 % (36.0-47.0); HEMOGLOBIN 7.6 g/dl (12.0-15.5); LYMPH # 1.6 10^3/uL (1.5-5.0); LYMPH % 22.1 % (24.0-44.0); MEAN CORPUSCULAR HEMOGLOBIN 22.8 pg (27.0-33.0); MEAN CORPUSCULAR HGB CONC 29.9 g/dl (32.0-36.5); MEAN CORPUSCULAR VOLUME 76.3 fl (80.0-96.0); MONO # 0.8 10^3/uL (0.0-0.8); MONO % 10.5 % (2.0-8.0); NEUTROPHILS # 4.5 10^3/uL (1.5-8.5); NEUTROPHILS % 61.6 % (36.0-66.0); PLATELET COUNT, AUTOMATED 505 10^3/uL (150-450); RED BLOOD COUNT 3.33 10^6/uL (4.00-5.40); WHITE BLOOD COUNT 7.3 10^3/uL (4.0-10.0)
[2023-08-07 07:40] LABS: ALBUMIN 1.5 G/DL (3.2-5.2); ALKALINE PHOSPHATASE 83 U/L (46-116); ALT/SGPT 21 U/L (7.0-40); AST/SGOT 15 U/L (<34); BILIRUBIN,TOTAL < 0.2 MG/DL (0.3-1.2); BLOOD UREA NITROGEN 17 MG/DL (9-23); CALCIUM LEVEL 8.4 MG/DL (8.5-10.1); CARBON DIOXIDE LEVEL 31 MMOL/L (20-31); CHLORIDE LEVEL 108 MMOL/L (98-107); CREATININE FOR GFR 0.84 MG/DL (0.55-1.30); GLOMERULAR FILTRATION RATE > 60.0 (>51); GLUCOSE, FASTING 101 MG/DL (60-100); MAGNESIUM LEVEL 1.9 MG/DL (1.8-2.4); POTASSIUM SERUM 3.9 MMOL/L (3.5-5.1); SODIUM LEVEL 142 MMOL/L (136-145)
[2023-08-07] MEDS: VANCOMYCIN HCL 750 MG, VIAL MATE ADAPTER 1 EACH in D5W 250 ML IV SCH (11:04)
[2023-08-07] MEDS: NYSTATIN 500,000U/5ML SUSP UDC SS SCH (11:05)
[2023-08-08 05:36] VITALS: BP 127/80; TEMP 97.7; O2SAT 95
[2023-08-08 09:00] VITALS: O2SAT 93
[2023-08-08] MEDS ORDERED: DOXY100C3 PO (11:41)
[2023-08-08] MEDS ORDERED: METR-265 PO (11:41)
[2023-08-08] MEDS ORDERED: OXYGEN CONCENTRATOR XX (19:42)
== END 2023-08-08 14:04 | disposition home or self-care (01) | DRG 177 ==
LOC: M ED 09:59 → M ED INP 15:55 → M PCU 17:27 → M MS5PR 08-07 18:10
PROVIDERS: ADMIT Student in an Organized Health Care Education/Training Program; ATTEND Student in an Organized Health Care Education/Training Program
PROC: 0W9B3ZZ Drainage of Left Pleural Cavity, Percutaneous Approach (ICD-10-PCS; principal; 2023-08-03 11:00)
PROC: 3E03317 Introduction of Other Thrombolytic into Peripheral Vein, Percutaneous Approach (ICD-10-PCS; 2023-08-04)
DX: J15.212 Pneumonia due to Methicillin resistant Staphylococcus aureus (principal); J86.9 Pyothorax without fistula; J96.11 Chronic respiratory failure with hypoxia; M06.9 Rheumatoid arthritis, unspecified; F31.9 Bipolar disorder, unspecified; G89.29 Other chronic pain; K21.9 Gastro-esophageal reflux disease without esophagitis; I73.00 Raynaud's syndrome without gangrene; Z88.2 Allergy status to sulfonamides; Z88.0 Allergy status to penicillin; Z88.8 Allergy status to other drugs, medicaments and biological substances; Z79.82 Long term (current) use of aspirin; Z79.899 Other long term (current) drug therapy; Z79.52 Long term (current) use of systemic steroids; F41.1 Generalized anxiety disorder; F25.9 Schizoaffective disorder, unspecified; K59.00 Constipation, unspecified; D72.829 Elevated white blood cell count, unspecified

== ENCOUNTER 2023-08-08 15:58 | Emergency (ER) | payer MEDICARE ==
[~2023-08-08] VITALS: Ht 147.3 cm; Wt 68.2 kg
[~2023-08-08 15:58] MED LIST changes: +METR-265 PO; +[UNRECOGNIZED DRUG - CODE] PO
[2023-08-08 18:48] VITALS: O2SAT 88
[2023-08-08] MEDS ORDERED: OXYGEN CONCENTRATOR XX (19:42)
[2023-08-08 19:50] VITALS: BP 155/84; TEMP 98; O2SAT 92
== END 2023-08-08 20:14 | disposition home or self-care (01) ==
LOC: M ED 15:58
DX: R06.02 Shortness of breath (principal); Z76.0 Encounter for issue of repeat prescription; I10 Essential (primary) hypertension; M79.7 Fibromyalgia; J44.9 Chronic obstructive pulmonary disease, unspecified; F43.10 Post-traumatic stress disorder, unspecified; Z99.81 Dependence on supplemental oxygen; Z88.0 Allergy status to penicillin; Z88.2 Allergy status to sulfonamides; Z88.5 Allergy status to narcotic agent; Z79.52 Long term (current) use of systemic steroids; Z79.82 Long term (current) use of aspirin; Z79.899 Other long term (current) drug therapy

== ENCOUNTER 2023-08-09 11:47 | Outpatient (CLI) | payer MEDICARE ==
[~2023-08-09] VITALS: Ht 149.9 cm; Wt 68.1 kg
[~2023-08-09 11:47] MED LIST changes: +OXYGEN CONCENTRATOR XX
[2023-08-09 12:10] VITALS: BP 131/88; O2SAT 100
[2023-08-09] MEDS: DALBAVANCIN 1,500 MG in D5W 250 ML IV ONE (14:22)
[2023-08-09 15:01] VITALS: BP 122/78; O2SAT 99
== END 2023-08-09 15:05 ==
LOC: M INFU 11:47
PROVIDERS: ATTEND Student in an Organized Health Care Education/Training Program
DX: J15.212 Pneumonia due to Methicillin resistant Staphylococcus aureus (principal); Z88.0 Allergy status to penicillin; Z88.2 Allergy status to sulfonamides; Z88.5 Allergy status to narcotic agent; Z88.8 Allergy status to other drugs, medicaments and biological substances
CPT/HCPCS: 96365; J0875

== ENCOUNTER 2023-08-17 12:30 | Outpatient (CLI) | payer MEDICARE ==
[~2023-08-17] VITALS: Ht 143.5 cm; Wt 68.1 kg
[2023-08-17 12:30] VITALS: BP 128/81; O2SAT 97
[2023-08-17] MEDS: DALBAVANCIN 1,500 MG in D5W 250 ML IV ONE (13:51)
[2023-08-17 14:29] VITALS: BP 134/87; O2SAT 98
== END 2023-08-17 14:30 | disposition home or self-care (01) ==
LOC: M INFU 12:30
PROVIDERS: ATTEND Student in an Organized Health Care Education/Training Program
DX: J15.212 Pneumonia due to Methicillin resistant Staphylococcus aureus (principal); Z88.0 Allergy status to penicillin; Z88.2 Allergy status to sulfonamides
CPT/HCPCS: 96365; J0875

== ENCOUNTER → 2023-08-19 | Outpatient (CLI) | payer MEDICARE, OTHER | LOC: M PLAIMG 11:23 | PROVIDERS: ATTEND Internal Medicine Infectious Disease | DX: J15.212 Pneumonia due to Methicillin resistant Staphylococcus aureus (principal) ==

== ENCOUNTER → 2023-08-27 | Outpatient (CLI) | payer MEDICARE ==
[2023-08-27 14:44] LABS: BASO % 0.5 % (0.0-1.0); EOS # 0.1 10^3/uL (0.0-0.5); EOS % 0.7 % (0.0-3.0); HEMATOCRIT 29.4 % (36.0-47.0); LYMPH # 1.4 10^3/uL (1.5-5.0); LYMPH % 18.9 % (24.0-44.0); MEAN CORPUSCULAR HEMOGLOBIN 23.1 pg (27.0-33.0); MEAN CORPUSCULAR HGB CONC 30.6 g/dl (32.0-36.5); MEAN CORPUSCULAR VOLUME 75.6 fl (80.0-96.0); MONO # 0.4 10^3/uL (0.0-0.8); MONO % 5.7 % (2.0-8.0); NEUTROPHILS # 5.6 10^3/uL (1.5-8.5); NEUTROPHILS % 73.8 % (36.0-66.0); PLATELET COUNT, AUTOMATED 352 10^3/uL (150-450); RED BLOOD COUNT 3.89 10^6/uL (4.00-5.40); WHITE BLOOD COUNT 7.6 10^3/uL (4.0-10.0)
[2023-08-27 15:00] LABS: ERYTHROCYTE SEDIMENTATION RATE 49 mm/hr (0-30)
[2023-08-27 15:11] LABS: ALBUMIN 2.6 G/DL (3.2-5.2); ALKALINE PHOSPHATASE 97 U/L (46-116); ALT/SGPT 22 U/L (7.0-40); AST/SGOT 24 U/L (<34); BILIRUBIN,TOTAL 0.2 MG/DL (0.3-1.2); BLOOD UREA NITROGEN 18 MG/DL (9-23); CALCIUM LEVEL 8.6 MG/DL (8.5-10.1); CARBON DIOXIDE LEVEL 27 MMOL/L (20-31); CHLORIDE LEVEL 107 MMOL/L (98-107); CREATININE FOR GFR 0.74 MG/DL (0.55-1.30); GLOMERULAR FILTRATION RATE > 60.0 (>51); GLUCOSE, FASTING 85 MG/DL (60-100); POTASSIUM SERUM 4.3 MMOL/L (3.5-5.1); SODIUM LEVEL 138 MMOL/L (136-145); TOTAL PROTEIN 6.1 G/DL (5.7-8.2)
== END ==
LOC: M LAB 14:20
PROVIDERS: ATTEND Internal Medicine Infectious Disease
DX: J15.212 Pneumonia due to Methicillin resistant Staphylococcus aureus (principal)

== ENCOUNTER → 2023-09-21 | Outpatient (CLI) | payer MEDICARE, OTHER ==
[~2023-09-21] MED LIST changes: -OLAN20TA14 PO; +OLAN20TA53 PO
[2023-09-21 15:50] LABS: BASO % 0.3 % (0.0-1.0); EOS % 0.2 % (0.0-3.0); HEMATOCRIT 34.1 % (36.0-47.0); HEMOGLOBIN 10.2 g/dl (12.0-15.5); LYMPH # 0.7 10^3/uL (1.5-5.0); LYMPH % 6.7 % (24.0-44.0); MEAN CORPUSCULAR HEMOGLOBIN 22.6 pg (27.0-33.0); MEAN CORPUSCULAR HGB CONC 29.9 g/dl (32.0-36.5); MEAN CORPUSCULAR VOLUME 75.4 fl (80.0-96.0); MONO # 0.4 10^3/uL (0.0-0.8); MONO % 3.5 % (2.0-8.0); NEUTROPHILS # 9.3 10^3/uL (1.5-8.5); NEUTROPHILS % 88.8 % (36.0-66.0); PLATELET COUNT, AUTOMATED 434 10^3/uL (150-450); RED BLOOD COUNT 4.52 10^6/uL (4.00-5.40); WHITE BLOOD COUNT 10.5 10^3/uL (4.0-10.0)
[2023-09-21 15:57] LABS: PERCENT SATURATION 4.2 % (13.2-45.0)
[2023-09-21 16:00] LABS: FOLATE 17.3 NG/ML (>5.4)
[2023-09-21 16:04] LABS: ERYTHROCYTE SEDIMENTATION RATE 43 mm/hr (0-30)
[2023-09-23 23:42] LABS: HCV RNA QUANTITATION <15 NOT DETECTED IU/mL (NOT DETECTED); HCV RNA log10 <1.18 NOT DETECTED Log IU/mL (NOT DETECTED)
== END ==
LOC: M PLALAB 13:11
PROVIDERS: ATTEND Internal Medicine Infectious Disease
DX: D64.9 Anemia, unspecified (principal); Z86.19 Personal history of other infectious and parasitic diseases; J15.212 Pneumonia due to Methicillin resistant Staphylococcus aureus; R09.1 Pleurisy; F31.9 Bipolar disorder, unspecified; B37.89 Other sites of candidiasis
CPT/HCPCS: 36415; 82607; 82746; 83550; 85025; 85652; 87522; G0463

== ENCOUNTER → 2023-10-01 | Outpatient (CLI) | payer MEDICARE ==
[2023-10-01 11:31] LABS: BASO % 0.2 % (0.0-1.0); EOS # 0.1 10^3/uL (0.0-0.5); EOS % 0.6 % (0.0-3.0); HEMATOCRIT 34.9 % (36.0-47.0); HEMOGLOBIN 10.9 g/dl (12.0-15.5); LYMPH # 0.7 10^3/uL (1.5-5.0); LYMPH % 5.8 % (24.0-44.0); MEAN CORPUSCULAR HEMOGLOBIN 22.7 pg (27.0-33.0); MEAN CORPUSCULAR HGB CONC 31.2 g/dl (32.0-36.5); MEAN CORPUSCULAR VOLUME 72.7 fl (80.0-96.0); MONO # 0.5 10^3/uL (0.0-0.8); MONO % 4.2 % (2.0-8.0); NEUTROPHILS # 10.7 10^3/uL (1.5-8.5); NEUTROPHILS % 88.9 % (36.0-66.0); PLATELET COUNT, AUTOMATED 428 10^3/uL (150-450)
[2023-10-01 11:44] LABS: ERYTHROCYTE SEDIMENTATION RATE 34 mm/hr (0-30)
[2023-10-01 11:51] LABS: ALBUMIN 3.5 G/DL (3.2-5.2); ALKALINE PHOSPHATASE 96 U/L (46-116); ALT/SGPT 22 U/L (7.0-40); AST/SGOT 14 U/L (<34); BILIRUBIN,TOTAL 0.3 MG/DL (0.3-1.2); BLOOD UREA NITROGEN 13 MG/DL (9-23); CALCIUM LEVEL 9.3 MG/DL (8.5-10.1); CARBON DIOXIDE LEVEL 28 MMOL/L (20-31); CHLORIDE LEVEL 103 MMOL/L (98-107); CREATININE FOR GFR 0.73 MG/DL (0.55-1.30); GLOMERULAR FILTRATION RATE > 60.0 (>51); GLUCOSE, FASTING 139 MG/DL (60-100); SODIUM LEVEL 139 MMOL/L (136-145); TOTAL PROTEIN 6.7 G/DL (5.7-8.2)
[2023-10-01 12:09] LABS: RHEUMATOID FACTOR QUANT 275.7 IU/ML (<14)
[2023-10-04 15:17] LABS: ANA SCREEN, IFA NEGATIVE (NEGATIVE)
== END ==
LOC: M LAB 10:51
PROVIDERS: ATTEND Family Medicine Addiction Medicine
DX: M06.9 Rheumatoid arthritis, unspecified (principal)

== ENCOUNTER → 2023-10-21 | Outpatient (CLI) | payer MEDICARE ==
[~2023-10-21] MED LIST changes: -NIFE10CA2 PO; +NIFE10CA61 PO
== END ==
LOC: M RAD 15:53
PROVIDERS: ATTEND Student in an Organized Health Care Education/Training Program
DX: M96.0 Pseudarthrosis after fusion or arthrodesis (principal)

== ENCOUNTER → 2024-01-31 | Outpatient (CLI) | payer MEDICAID, MEDICARE ==
[~2024-01-31] MED LIST changes: +GABA-1172 PO; +GABA-1490 PO; -GABA-282 PO; -GABA600T4 PO; +NALO4SPR20 NS; -NALO4SPR3 NS
== END ==
LOC: M RAD 11:29
PROVIDERS: ATTEND Internal Medicine Critical Care Medicine
DX: J15.212 Pneumonia due to Methicillin resistant Staphylococcus aureus (principal)

== ENCOUNTER → 2024-03-13 | Outpatient (CLI) | payer MEDICARE | LOC: M RAD 14:24 | PROVIDERS: ATTEND Internal Medicine Pulmonary Disease | DX: R06.00 Dyspnea, unspecified (principal) ==

== ENCOUNTER → 2024-03-30 | Outpatient (CLI) | payer MEDICARE | LOC: M SLEEP 20:00 | PROVIDERS: ATTEND Internal Medicine Critical Care Medicine | DX: G47.33 Obstructive sleep apnea (adult) (pediatric) (principal) ==

== ENCOUNTER → 2024-04-18 | Outpatient (REF) | payer MEDICARE | LOC: M LAB REF 16:27 | PROVIDERS: ATTEND Family Medicine Addiction Medicine | DX: R30.0 Dysuria (principal) ==

== ENCOUNTER 2024-05-06 12:12 | Emergency (ER) | payer MEDICARE ==
[~2024-05-06] VITALS: Ht 147.3 cm; Wt 72.6 kg
[2024-05-06 13:29] LABS: HEMATOCRIT 39.1 % (36.0-47.0); HEMOGLOBIN 11.6 g/dl (12.0-15.5); MEAN CORPUSCULAR HEMOGLOBIN 20.4 pg (27.0-33.0); MEAN CORPUSCULAR HGB CONC 29.7 g/dl (32.0-36.5); MEAN CORPUSCULAR VOLUME 68.8 fl (80.0-96.0); PLATELET COUNT, AUTOMATED 318 10^3/uL (150-450); RED BLOOD COUNT 5.68 10^6/uL (4.00-5.40); WHITE BLOOD COUNT 4.2 10^3/uL (4.0-10.0)
[2024-05-06 13:50] LABS: BLOOD UREA NITROGEN 11 MG/DL (9-23); CALCIUM LEVEL 8.7 MG/DL (8.5-10.1); CARBON DIOXIDE LEVEL 27 MMOL/L (20-31); CHLORIDE LEVEL 101 MMOL/L (98-107); CREATININE FOR GFR 0.77 MG/DL (0.55-1.30); GLOMERULAR FILTRATION RATE > 60.0 (>51); GLUCOSE, FASTING 112 MG/DL (60-100); POTASSIUM SERUM 3.7 MMOL/L (3.5-5.1); SODIUM LEVEL 139 MMOL/L (136-145)
[2024-05-06 14:00] LABS: KETONE, URINE AUTO RFX TRACE mg/dL (NEGATIVE); LEUKOCYTE ESTERASE UR AUTO RFX NEGATIVE (NEGATIVE); MUCUS, URINE RFX SMALL (NEGATIVE); NITRITE, URINE AUTO RFX NEGATIVE (NEGATIVE); RBC, URINE AUTO RFX 1 /HPF (0-3); SQUAM EPITHELIAL CELL UR AURFX 5 /HPF (0-6); WBC, URINE AUTO RFX 2 /HPF (0-3)
[2024-05-06] MEDS: NS (Normal Saline) 0.9% 1,000 ML IV ONE (15:18)
[2024-05-06] MEDS: KETOROLAC 30 MG/ML 1ML VIAL IV ONE (15:19)
[2024-05-06] MEDS: ONDANSETRON 4MG 2ML VIAL IV ONE (15:19)
[2024-05-06] MEDS ORDERED: ONDA-282 PO (17:22)
[2024-05-06 17:38] VITALS: BP 125/78; TEMP 98; O2SAT 93
== END 2024-05-06 17:40 | disposition home or self-care (01) ==
LOC: M ED 12:12
DX: R11.2 Nausea with vomiting, unspecified (principal); R19.7 Diarrhea, unspecified; I10 Essential (primary) hypertension; M06.9 Rheumatoid arthritis, unspecified; F17.290 Nicotine dependence, other tobacco product, uncomplicated; Z79.82 Long term (current) use of aspirin; Z79.899 Other long term (current) drug therapy; Z88.0 Allergy status to penicillin; Z88.2 Allergy status to sulfonamides
CPT/HCPCS: 80048; 81001; 85027; 96361; 96374; 96375; 99284; J1885; J2405

== ENCOUNTER → 2024-05-15 | Outpatient (CLI) | payer MEDICARE ==
[~2024-05-15] MED LIST changes: +ONDA-282 PO
== END ==
LOC: M RAD 12:40 → M LAB 12:40
PROVIDERS: ATTEND Student in an Organized Health Care Education/Training Program
DX: M54.50 Low back pain, unspecified (principal); Z98.1 Arthrodesis status

== ENCOUNTER → 2024-06-14 | Outpatient (CLI) | payer MEDICARE | LOC: M SLEEP 20:00 | PROVIDERS: ATTEND Internal Medicine Critical Care Medicine | DX: G47.33 Obstructive sleep apnea (adult) (pediatric) (principal) ==

== ENCOUNTER → 2024-12-15 | Outpatient (CLI) | payer MEDICARE ==
[~2024-12-15] MED LIST changes: +ACET-1515 PO; -ACET650T15 PO; +LIDO1ADH93 TD; +LIDO1ADH93 TOP; -LIDO5DIS41 TD; -LIDO5DIS41 TOP; +OLAN7.5T38 PO; -OLAN7.5T8 PO; -PREG50CA PO; +PREG50CA87 PO; -SILD20TA11 PO; +SILD20TA64 PO; +VENL225T PO; -VENL225T32 PO
[2024-12-15 12:52] LABS: CALCIUM LEVEL 8.7 MG/DL (8.5-10.1); CARBON DIOXIDE LEVEL 28 MMOL/L (20-31); CHLORIDE LEVEL 100 MMOL/L (98-107); CREATININE FOR GFR 0.78 MG/DL (0.55-1.30); GLOMERULAR FILTRATION RATE > 90.0 (>51); MAGNESIUM LEVEL 1.8 MG/DL (1.8-2.4); POTASSIUM SERUM 3.1 MMOL/L (3.5-5.1); SODIUM LEVEL 142 MMOL/L (136-145)
== END ==
LOC: M LAB 10:58
PROVIDERS: ATTEND Internal Medicine Critical Care Medicine
DX: I27.20 Pulmonary hypertension, unspecified (principal)

== ENCOUNTER → 2024-12-15 | Outpatient (CLI) | payer MEDICARE ==
[2024-12-15 12:33] LABS: BASO # 0.0 10^3/uL (0.0-0.2); BASO % 0.3 % (0.0-1.0); EOS # 0.0 10^3/uL (0.0-0.5); EOS % 0.3 % (0.0-3.0); LYMPH # 0.7 10^3/uL (1.5-5.0); LYMPH % 9.0 % (24.0-44.0); MONO # 0.3 10^3/uL (0.0-0.8); MONO % 4.4 % (2.0-8.0); NEUTROPHILS # 6.6 10^3/uL (1.5-8.5); NEUTROPHILS % 85.7 % (36.0-66.0); PLATELET COUNT, AUTOMATED 392 10^3/uL (150-450)
[2024-12-15 12:48] LABS: ERYTHROCYTE SEDIMENTATION RATE 22 mm/hr (0-30)
[2024-12-15 12:54] LABS: ALT/SGPT 47.0 U/L (7.0-40); AST/SGOT 35.0 U/L (<34); C REACTIVE PROTEIN QUANTITATIV 1.3 MG/DL (<1.0); CALCIUM LEVEL 8.8 MG/DL (8.5-10.1); CARBON DIOXIDE LEVEL 30.0 MMOL/L (20-31); CHLORIDE LEVEL 100.0 MMOL/L (98-107); CREATININE FOR GFR 0.82 MG/DL (0.55-1.30); FREE T4 1.06 NG/DL (0.89-1.76); GLOMERULAR FILTRATION RATE 85.0 (>51); POTASSIUM SERUM 3.0 MMOL/L (3.5-5.1); SODIUM LEVEL 142.0 MMOL/L (136-145)
[2024-12-15 12:55] LABS: VITAMIN B12 LEVEL 438.0 PG/ML (211-911)
== END ==
LOC: M LAB 11:00
PROVIDERS: ATTEND Family Medicine Addiction Medicine
DX: R41.3 Other amnesia (principal); R23.3 Spontaneous ecchymoses